=== PATIENT | male | born 1965 | race Caucasian/White ===

== ENCOUNTER → 2020-06-06 12:49 | Outpatient (BNVA) | payer MEDICARE, SELFPAY | PROVIDERS: Referring Provider Nurse Practitioner Family; Visit Provider Nurse Practitioner Family | DX: R19.7 Diarrhea, unspecified (principal); K21.9 Gastro-esophageal reflux disease without esophagitis; F17.210 Nicotine dependence, cigarettes, uncomplicated; Z12.11 Encounter for screening for malignant neoplasm of colon; Z79.899 Other long term (current) drug therapy; Z79.4 Long term (current) use of insulin | CPT/HCPCS: Q3014 ==

== ENCOUNTER → 2020-06-25 14:39 | Outpatient (BNVA) | payer OTHER, SELFPAY | PROVIDERS: PCP Nurse Practitioner Family; Visit Provider Nurse Practitioner Family | DX: Z13.89 Encounter for screening for other disorder (principal) | CPT/HCPCS: Q3014 ==

== ENCOUNTER → 2020-07-01 13:17 | Outpatient (BNVA) | payer OTHER, SELFPAY | PROVIDERS: PCP Nurse Practitioner Family; Visit Provider Internal Medicine Cardiovascular Disease | DX: Z01.810 Encounter for preprocedural cardiovascular examination (principal); I25.10 Atherosclerotic heart disease of native coronary artery without angina pectoris; I42.9 Cardiomyopathy, unspecified; I48.0 Paroxysmal atrial fibrillation; Z79.01 Long term (current) use of anticoagulants | CPT/HCPCS: 93005; 99212 ==

== ENCOUNTER 2020-07-23 07:52 | Day surgery (SDC) | payer OTHER, SELFPAY ==
[2020-07-17 10:51] VITALS: BMI 35.5
--- NOTE | 2020-07-22 10:20 | HO.ANESPROP2 ---
Documented by User: Heavenly Miranda 07/22/20 10:25 HPI - Anesthesia Eval Consult details Narrative: 55yo M for Colonoscopy Cardiac cleared at low to intermed risk [facility] Past Medical History Medical History CAD (coronary artery disease) Cardiomyopathy COPD (chronic obstructive pulmonary disease) Diabetes mellitus type 2, uncontrolled History of cardioversion KIMANI (obstructive sleep apnea) Paroxysmal atrial fibrillation Sleep apnea Smoker Family History Family History Father Atherosclerosis Mother Cerebral aneurysm Maternal Grandmother Unknown family medical history Surgical History Surgical History H/O heart artery stent History of esophagogastroduodenoscopy History of fracture of leg History of inguinal hernia History of umbilical hernia Hx of colonoscopy Social History Social History Alcohol intake: current Alcohol intake frequency: a few times a month Alcohol type: beer Smoking Status: Current every day smoker Tobacco Type: Cigarette Cigarettes Per Day: 10 Years Smoked: 40 years Use of substances other than those prescribed or required for medical reasons: No Have you been hit, kicked, punched, or otherwise hurt by someone within the past year? If so, by whom?: No Advance Directives: No Advance Directives Information Provided: No Recently lost weight without trying: No Meds Allergies Allergy/AdvReac Type Severity Reaction Status Date / Time No Known Allergies Allergy Verified 07/23/20 08:12 [No Known Allergies*] Home Medications Medication Instructions Recorded Confirmed Type apixaban 5 mg tablet 5 mg PO BID 06/06/20 07/17/20 History atorvastatin 40 mg tablet 40 mg PO DAILY 06/06/20 07/17/20 History Exam Exam Date and Time: July 22, 2020 1020 Height,Weight and Vital Signs: Height 5 ft 11 in Weight 115.666 kg Narrative Narrative: EKG 07/01/20 shows normal sinus rhythm with deep S waves in lead 3 and AVF and QS pattern in lead V1 V2 consistent with septal infarct per cardiology ov note ECHO 09/2019 EF 38% by biplane method, mod global hypokinesis, diastolic function nml for age Assessment and Plan Assessment Anesthesia Assessment: Chart Reviewed Documented by User: Jasmin Hopson 07/23/20 09:07 [facility] Past Medical History Medical History CAD (coronary artery disease) Cardiomyopathy COPD (chronic obstructive pulmonary disease) Diabetes mellitus type 2, uncontrolled History of cardioversion KIMANI (obstructive sleep apnea) Paroxysmal atrial fibrillation Sleep apnea Smoker Family History Family History Father Atherosclerosis Mother Cerebral aneurysm Maternal Grandmother Unknown family medical history Surgical History Surgical History H/O heart artery stent History of esophagogastroduodenoscopy History of fracture of leg History of inguinal hernia History of umbilical hernia Hx of colonoscopy Social History Social History Alcohol intake: current Alcohol intake frequency: a few times a month Alcohol type: beer Smoking Status: Current every day smoker Tobacco Type: Cigarette Cigarettes Per Day: 10 Years Smoked: 40 years Use of substances other than those prescribed or required for medical reasons: No Have you been hit, kicked, punched, or otherwise hurt by someone within the past year? If so, by whom?: No Advance Directives: No Advance Directives Information Provided: No Recently lost weight without trying: No Meds Allergies Allergy/AdvReac Type Severity Reaction Status Date / Time No Known Allergies Allergy Verified 07/23/20 08:12 [No Known Allergies*] Home Medications Medication Instructions Recorded Confirmed Type apixaban 5 mg tablet 5 mg PO BID 06/06/20 07/17/20 History atorvastatin 40 mg tablet 40 mg PO DAILY 06/06/20 07/17/20 History Exam Airway Mallampati Class: IV TM Dist: >3cm Neck ROM: Full Heart: RRR Lungs: CTA
[2020-07-22 16:11] VITALS: BMI 35.5
--- NOTE | 2020-07-23 08:58 | P.OP_ITS ---
Operative Note Operative Note Date of Service: 07/23/20 Narrative: Pre-op diagnosis: Colon cancer screening, hx of colon polyps Post-op diagnosis: other (Colon polyps, diverticulosis, hemorrhoids) Procedure: COLONOSCOPY TILL CECUM Consent: Indications for the procedure and potential complications of bleeding, perforation, reaction to medications and missed diagnosis were discussed with the patient and informed consent was obtained. Since pt was unsure if he took his Eliquis yesterday am, pt was informed and agreed that a diagnostic colonoscopy will be performed and if significant polyps are detected, He will need repeat colonoscopy for polypectomy. Instrument: Olympus PCF H 190 L variable stiffness pediatric colonoscope Monitoring: Vital signs and clinical assessment, intermittent blood pressure monitoring, continuous EKG monitoring, Pulse oximetry and Carbon Dioxide monitoring were done throughout the procedure. Colon withdrawl time was 20 minutes. Procedure: The patient was placed in the left lateral decubitis position and pre-procedure medications were administered. After a digital rectal examination of the ano-rectum, the video colonoscope was inserted into the rectum and advanced through the colon to the cecum. The colonoscope was slowly withdrawn in a retrograde panoramic fashion and the colon mucosa was carefully examined including a retroflexed view of the rectum. Findings and interventions are described below. Procedure Difficulty: Colon was long and tortuous and there was some loop formation. Pt was placed in the supine position and LLQ pressure applied to intubate the transverse colon/cecum Findings: Terminal Ileum: Not evaluated Cecum: Normal Ascending Colon: Normal Transverse Colon: Four 8-12 mm sessile polyps from 80-90 cms in the distal TC - not removed. Descending Colon: Moderate diverticulosis Sigmoid Colon: Two 8-10 mm sessile polyps and moderate diverticulosis Rectum: Normal Ano-rectum: Moderate internal hemorrhoids Colon preparation: Good after copious irrigation Impression and Post Procedure Diagnosis: Colonoscopy Findings: Six polyps were detected and not removed since patient is unsure if he took his Eliquis yesterday. Moderate diverticulosis seen in the left colon Moderate hemorrhoids on retroflexed exam. Plan: Await pathology results Patient has an appointment on 07/30/20 in the GI Clinic with Hoda Adair FNP- BC. Repeat Colonoscopy in 6 to 12 months with adult colonoscope. Above findings were reviewed with the patient and colon polyps and diverticulosis handouts were given in the discharge area Surgeon: Gerardo Anaya MD Anesthesia: MAC (Dr Briscoe & Dr Priest) Estimated blood loss (mL): 0 Pathology: none sent Condition: stable Disposition: PACU
--- NOTE | 2020-07-23 08:58 | MHC.SHP ---
Pre-Procedural Eval Section B Chief Complaint: screening Details of Present Illness: Colon cancer screening, chronic diarrhea Relevant Family History (Specify if Yes): No Relevant Social History: Tobacco Use Present Medications: see Short Stay Collaborative assessment Medical History: Significant History (DM, CAD) History of Previous Operations: Relevant previous surgery/procedure and date(s) (H/O heart artery stent History of esophagogastroduodenoscopy History of fracture of leg History of inguinal hernia History of umbilical hernia Hx of colonoscopy) Allergies: Allergies Allergy/AdvReac Type Severity Reaction Status Date / Time No Known Allergies Allergy Verified 07/23/20 08:12 [No Known Allergies*] Review of Systems Sugical H&P ROS: Negative: Constitution, Cardiovascular, Respiratory and Gastrointestinal Exam Surgical H&P Exam: Normal: Heart, Normal: Lungs, Normal: Extremities and Normal: Abdomen Plan Diagnosis/Plan: Change (Unsure if he took Eliquis yesterday. Advised a diagnostic colonoscopy today and return for repeat if polyps are detected..) I have reviewed the history and physical and performed a pertinent physical examination on my patient. No changes have occurred unless specified.
[2020-07-23 08:59] VITALS: BP 152/81; PULSE 66; RESP 18; TEMP 36.8; O2SAT 96
[2020-07-23 09:02] LABS: Glucose, Whole Blood 197 mg/dL (60-115)
[2020-07-23] MEDS: Lactated Ringers 1,000 ML 20 ML IVCONT (09:12)
[2020-07-23 10:10] VITALS: BP 137/76; PULSE 70; RESP 16; TEMP 36.8; O2SAT 98
[2020-07-23 10:25] VITALS: BP 131/62; PULSE 68; RESP 20; TEMP 36.8; O2SAT 96
--- NOTE | 2020-07-23 10:35 | HO.POSTANES ---
Post Anesthesia Evaluation Post Anesthesia Evaluation Vital Signs: Vital Signs Temp Pulse Resp BP Pulse Ox 07/23/20 10:25 98.3 F 68 20 131/62 96 07/23/20 10:10 98.3 F 70 16 137/76 98 07/23/20 08:59 98.3 F 66 18 152/81 H 96 Anesthesia: TIVA Mental Status: Awake Pain Control: Satisfactory Nausea/Vomiting: None Hydration: Adequate Anesthesia-Related Issues: No Anes. Related Issues
--- NOTE | 2020-07-23 11:39 | HO.POSTANES ---
Post Anesthesia Evaluation Post Anesthesia Evaluation Vital Signs: Vital Signs Temp Pulse Resp BP Pulse Ox 07/23/20 10:25 98.3 F 68 20 131/62 96 07/23/20 10:10 98.3 F 70 16 137/76 98 07/23/20 08:59 98.3 F 66 18 152/81 H 96 Anesthesia: Monitored Mental Status: Awake Pain Control: Satisfactory Nausea/Vomiting: None Hydration: Adequate Anesthesia-Related Issues: No Anes. Related Issues
== END 2020-07-23 10:45 | disposition home or self-care (01) ==
PROVIDERS: PCP Nurse Practitioner Family; Visit Provider Internal Medicine Gastroenterology
PROC: 0DJD8ZZ Inspection of Lower Intestinal Tract, Via Natural or Artificial Opening Endoscopic (ICD-10-PCS; CPT 45378; principal; 2020-07-23 09:10)
DX: Z12.11 Encounter for screening for malignant neoplasm of colon (principal); Z86.010 Personal history of colon polyps; K63.5 Polyp of colon; K56.2 Volvulus; K57.30 Diverticulosis of large intestine without perforation or abscess without bleeding; K64.8 Other hemorrhoids; I48.0 Paroxysmal atrial fibrillation; Z79.01 Long term (current) use of anticoagulants; J44.9 Chronic obstructive pulmonary disease, unspecified; E11.9 Type 2 diabetes mellitus without complications; Z79.4 Long term (current) use of insulin; G47.33 Obstructive sleep apnea (adult) (pediatric); Z99.89 Dependence on other enabling machines and devices; Z79.899 Other long term (current) drug therapy; F17.210 Nicotine dependence, cigarettes, uncomplicated
CPT/HCPCS: G0105; 82947

== ENCOUNTER → 2020-08-15 14:29 | Outpatient (BNVA) | payer OTHER, SELFPAY | PROVIDERS: PCP Nurse Practitioner Family; Visit Provider Nurse Practitioner Family | DX: Z76.89 Persons encountering health services in other specified circumstances (principal) | CPT/HCPCS: Q3014 ==

== ENCOUNTER 2020-11-05 06:24 | Day surgery (SDC) | payer OTHER, SELFPAY ==
[2020-10-30 15:32] VITALS: BMI 35.5
--- NOTE | 2020-11-04 09:15 | P.CONAN_ITS ---
Documented by User: Heavenly Miranda 11/04/20 09:20 HPI - Anesthesia Eval Consult details Narrative: 55yo M for Colonoscopy Cardiac cleared at low to intermed risk for 06/2020 colonoscopy s/p colonoscopy with TIVA 06/2020 Repeat colo for polyp removal. (Pt was unsure if Eliquis was held for last procedure.) PMF Active Problems Active Problems: All Active Problems (Updated 08/21/20 @ 09:48 by Phi Crisostomo, [facility]) Screening PSA (prostate specific antigen) (Acute) Type 2 diabetes mellitus without complications (Acute) Preoperative cardiovascular examination (Acute) CAD (coronary artery disease) (Acute) Paroxysmal atrial fibrillation (Acute) Cardiomyopathy (Acute) Past Medical History Medical History CAD (coronary artery disease) Cardiomyopathy COPD (chronic obstructive pulmonary disease) Diabetes mellitus type 2, uncontrolled History of cardioversion KIMANI (obstructive sleep apnea) Paroxysmal atrial fibrillation Sleep apnea Smoker Family History Family History Father Atherosclerosis Mother Cerebral aneurysm Maternal Grandmother Unknown family medical history Surgical History Surgical History H/O heart artery stent History of esophagogastroduodenoscopy History of fracture of leg History of inguinal hernia History of umbilical hernia Hx of colonoscopy Social History Social History Household Members: Friend(s) Alcohol intake: current Alcohol intake frequency: a few times a week Alcohol type: beer Smoking Status: Current every day smoker Tobacco Type: Cigarette Cigarettes Per Day: 20 Years Smoked: 40 Use of substances other than those prescribed or required for medical reasons: No Are you DNR?: No Advance Directives: No Advance Directives Information Provided: No Advance Directives on File: No Recently lost weight without trying: No Current occupational status: disabled Meds Allergies Allergy/AdvReac Type Severity Reaction Status Date / Time No Known Allergies Allergy Verified 10/30/20 15:31 [No Known Allergies*] Home Medications Medication Instructions Recorded Confirmed Last Taken Type amiodarone 200 mg tablet 200 mg PO DAILY 08/21/20 10/30/20 Unknown History empagliflozin 25 mg tablet 25 mg PO DAILY 08/21/20 10/30/20 Unknown History albuterol sulfate 2 puff PO Q6H PRN 10/30/20 10/30/20 Unknown History insulin glargine [Lantus Solostar 40 unit SUBCUT BEDTIME 10/30/20 10/30/20 Unknown History U-100 Insulin] metformin 500 mg PO BID 10/30/20 10/30/20 Unknown History metoprolol tartrate 1 tab PO BID 10/30/20 10/30/20 Unknown History umeclidinium [Incruse Ellipta] 1 puff PO DAILY 10/30/20 10/30/20 Unknown History Exam Exam Date and Time: November 04, 2020 0915 Height,Weight and Vital Signs: Height 5 ft 11 in Weight 115.666 kg Narrative Narrative: EKG 07/01/20 shows normal sinus rhythm with deep S waves in lead 3 and AVF and QS pattern in lead V1 V2 consistent with septal infarct per cardiology ov note ECHO 09/2019 EF 38% by biplane method, mod global hypokinesis, diastolic function nml for age Assessment and Plan Assessment Anesthesia Assessment: Chart Reviewed Documented by User: Jasmin Hopson 11/05/20 07:26 [facility] Past Medical History Medical History CAD (coronary artery disease) Cardiomyopathy COPD (chronic obstructive pulmonary disease) Diabetes mellitus type 2, uncontrolled History of cardioversion KIMANI (obstructive sleep apnea) Paroxysmal atrial fibrillation Sleep apnea Smoker Family History Family History Father Atherosclerosis Mother Cerebral aneurysm Maternal Grandmother Unknown family medical history Surgical History Surgical History H/O heart artery stent History of esophagogastroduodenoscopy History of fracture of leg History of inguinal hernia History of umbilical hernia Hx of colonoscopy Social History Social History Household Members: Friend(s) Alcohol intake: current Alcohol intake frequency: a few times a week Alcohol type: beer Smoking Status: Current every day smoker Tobacco Type: Cigarette Cigarettes Per Day: 20 Years Smoked: 40 Use of substances other than those prescribed or required for medical reasons: No Are you DNR?: No Advance Directives: No Advance Directives Information Provided: No Advance Directives on File: No Recently lost weight without trying: No Current occupational status: disabled Meds Allergies Allergy/AdvReac Type Severity Reaction Status Date / Time No Known Allergies Allergy Verified 10/30/20 15:31 [No Known Allergies*] Home Medications Medication Instructions Recorded Confirmed Last Taken Type amiodarone 200 mg tablet 200 mg PO DAILY 08/21/20 10/30/20 Unknown History empagliflozin 25 mg tablet 25 mg PO DAILY 08/21/20 10/30/20 Unknown History albuterol sulfate 2 puff PO Q6H PRN 10/30/20 10/30/20 Unknown History insulin glargine [Lantus Solostar 40 unit SUBCUT BEDTIME 10/30/20 10/30/20 Unknown History U-100 Insulin] metformin 500 mg PO BID 10/30/20 10/30/20 Unknown History metoprolol tartrate 1 tab PO BID 10/30/20 10/30/20 Unknown History umeclidinium [Incruse Ellipta] 1 puff PO DAILY 10/30/20 10/30/20 Unknown History Exam Airway Mallampati Class: III TM Dist: >3cm Neck ROM: Full Heart: RrRR Lungs: CTA
[2020-11-05 06:43] VITALS: BP 151/78; PULSE 67; RESP 20; TEMP 36.7; O2SAT 97; BMI 34.8
[2020-11-05] MEDS: Lactated Ringers 1,000 ML 100 ML IVCONT (07:06)
--- NOTE | 2020-11-05 07:16 | P.HPSUR_ITS ---
Pre-Procedural Eval Section A The patient is an INPATIENT: No The History & Physical has been completed within 30 days and I have reviewed it.: No Section B Chief Complaint: Screening Relevant Family History (Specify if Yes): No Relevant Social History: Tobacco Use Present Medications: see Short Stay Collaborative assessment Medical History: Significant History (CAD (coronary artery disease) Cardiomyopathy COPD (chronic obstructive pulmonary disease) Diabetes mellitus type 2, uncontrolled History of cardioversion KIMANI (obstructive sleep apnea) Paroxysmal atrial fibrillation Sleep apnea Smoker) History of Previous Operations: Relevant previous surgery/procedure and date(s) (H/O heart artery stent History of esophagogastroduodenoscopy History of frac ture of leg History of inguinal hernia History of umbilical hernia Hx of colonoscopy) Allergies: Allergies Allergy/AdvReac Type Severity Reaction Status Date / Time No Known Allergies Allergy Verified 10/30/20 15:31 [No Known Allergies*] Review of Systems Sugical H&P ROS: Negative: Constitution, Cardiovascular, Respiratory and Gastrointestinal Exam Surgical H&P Exam: Normal: Heart, Normal: Lungs, Normal: Extremities and Normal: Abdomen Plan Diagnosis/Plan: Unchanged I have reviewed the history and physical and performed a pertinent physical examination on my patient. No changes have occurred unless specified.
--- NOTE | 2020-11-05 07:16 | W.PM.OPN ---
Operative Note Operative Note Date of Service: 11/05/20 Narrative: Pre-op diagnosis: History of colon polyps Post-op diagnosis: other (Colon polyps, diverticulosis, hemorrhoids) Procedure: COLONOSCOPY TILL CECUM WITH BIOPSIES AND SNARE POLYPECTOMY Consent: Indications for the procedure and potential complications of bleeding, perforation, reaction to medications and missed diagnosis were discussed with the patient and informed consent was obtained. Instrument: Olympus CF H 190 L variable stiffness adult colonoscope Monitoring: Vital signs and clinical assessment, intermittent blood pressure monitoring, continuous EKG monitoring, Pulse oximetry and Carbon Dioxide monitoring were done throughout the procedure. Colon withdrawl time was 38 minutes. Procedure: The patient was placed in the left lateral decubitis position and pre-procedure medications were administered. After a digital rectal examination of the ano-rectum, the video colonoscope was inserted into the rectum and advanced through the colon to the cecum. The colonoscope was slowly withdrawn in a retrograde panoramic fashion and the colon mucosa was carefully examined including a retroflexed view of the rectum. Findings and interventions are described below. Procedure Difficulty: Without difficulty Findings: Terminal Ileum: Not evaluated Cecum: Partially evaluated due to fair prep Ascending Colon: Partially evaluated due to fair prep Transverse Colon: Four 8 to 12 mm sessile polyps removed with hot and cold snare Descending Colon: Moderate diverticulosis Sigmoid Colon: Two 8-10 mm sessile polyp removed with a hot and cold snare. A 15-20 mm a sessile polyp at 20 cm removed with a hot snare. Moderate diverticulosis Rectum: Normal Ano-rectum: Large internal hemorrhoids Colon preparation: Fair despite copious irrigation - would in some areas of the colon Impression and Post Procedure Diagnosis: Colonoscopy Findings: Seven polyps removed Random biopsies obtained to to check for microscopic colitis Moderate diverticulosis seen in the left colon Large hemorrhoids on retroflexed exam. Plan: Await pathology results Patient has an appointment on 12/12/20 in the GI Clinic with Hoda Adair FNP-BC. Repeat Colonoscopy interval based on path results - in 2 years if polyps are adenomatous and due to fair prep (1.5 day prep and adult colonoscope for future colonoscopies. Above findings were reviewed with the patient and colon polyps and diverticulosis handouts were given in the discharge area Surgeon: Gerardo Anaya MD Anesthesia: MAC (Dr Briscoe) Was an Computer Technical Specialist used for this Procedure?: Yes Computer Technical Specialist: Doron Curtis Estimated blood loss (mL): 0 Pathology: other (A- TRANSVERSE COLON POLYPS B- RANDOM COLON BXS C- TRANSVERSE COLON POLYPS AT 80CM D- SIGMOID COLON POLYP E- SIGMOID COLON POLYP AT 20CM) Condition: stable Disposition: PACU
[2020-11-05 07:22] LABS: Glucose, Whole Blood 197 mg/dL (60-115)
[2020-11-05 08:39] VITALS: BP 155/79; PULSE 98; RESP 16; TEMP 37.1; O2SAT 92
[2020-11-05 08:54] VITALS: BP 135/76; PULSE 87; RESP 16; O2SAT 99
--- NOTE | 2020-11-05 11:07 | HO.POSTANES ---
Post Anesthesia Evaluation Post Anesthesia Evaluation Vital Signs: Vital Signs Temp Pulse Resp BP Pulse Ox 11/05/20 08:54 87 16 135/76 99 11/05/20 08:39 98.7 F 98 16 155/79 H 92 11/05/20 06:43 98.1 F 67 20 151/78 H 97 Anesthesia: Monitored Mental Status: Awake Pain Control: Satisfactory Nausea/Vomiting: None Hydration: Adequate Anesthesia-Related Issues: No Anes. Related Issues
== END 2020-11-05 10:05 | disposition home or self-care (01) ==
PROVIDERS: PCP Nurse Practitioner Family; Visit Provider Internal Medicine Gastroenterology
PROC: 0DJD8ZZ Inspection of Lower Intestinal Tract, Via Natural or Artificial Opening Endoscopic (ICD-10-PCS; CPT 45378; principal; 2020-11-05 07:30)
DX: Z12.11 Encounter for screening for malignant neoplasm of colon (principal); Z86.010 Personal history of colon polyps; D12.3 Benign neoplasm of transverse colon; D12.5 Benign neoplasm of sigmoid colon; K57.30 Diverticulosis of large intestine without perforation or abscess without bleeding; K64.8 Other hemorrhoids; J44.9 Chronic obstructive pulmonary disease, unspecified; G47.33 Obstructive sleep apnea (adult) (pediatric); I48.0 Paroxysmal atrial fibrillation; Z79.01 Long term (current) use of anticoagulants; E11.9 Type 2 diabetes mellitus without complications; Z79.4 Long term (current) use of insulin; F17.210 Nicotine dependence, cigarettes, uncomplicated; Z79.51 Long term (current) use of inhaled steroids; Z79.899 Other long term (current) drug therapy; Z99.89 Dependence on other enabling machines and devices
CPT/HCPCS: 45385; 45380; 82947; 88305

== ENCOUNTER → 2020-12-20 10:15 | Outpatient (BNVA) | payer OTHER, SELFPAY | PROVIDERS: PCP Nurse Practitioner Family; Referring Provider Nurse Practitioner Family; Visit Provider Nurse Practitioner Family | DX: K21.9 Gastro-esophageal reflux disease without esophagitis (principal); R19.7 Diarrhea, unspecified; R14.0 Abdominal distension (gaseous); D36.9 Benign neoplasm, unspecified site; Z98.890 Other specified postprocedural states | CPT/HCPCS: 99212 ==

== ENCOUNTER 2021-01-21 14:00 | Outpatient (REF) | payer OTHER, SELFPAY | END 2021-01-21 14:01 | disposition home or self-care (01) | LOC: HO.LNP 14:00 | PROVIDERS: Visit Provider Nurse Practitioner Family | DX: K21.9 Gastro-esophageal reflux disease without esophagitis (principal) | CPT/HCPCS: 87338 ==

== ENCOUNTER 2021-01-22 08:58 | Outpatient (REF) | payer OTHER, SELFPAY ==
[2021-01-27 13:11] LABS: Transglutaminase Ab IgG 2 U/mL; Transglutaminase IgA 2 U/mL
== END 2021-01-22 08:59 | disposition home or self-care (01) ==
LOC: HO.LAB 08:58
PROVIDERS: PCP Nurse Practitioner Family; Referring Provider Nurse Practitioner Family; Visit Provider Nurse Practitioner Family
DX: R10.11 Right upper quadrant pain (principal); Z83.79 Family history of other diseases of the digestive system
CPT/HCPCS: 36415; 83516

== ENCOUNTER → 2021-01-24 09:09 | Outpatient (REF) | payer OTHER, SELFPAY ==
--- NOTE | 2021-01-24 09:12 | CA_ITS ---
Transthoracic Echocardiogram Patient (Last, First, Middle): Jr Cruz, Gender: Male Date of : 1965 Age: 55 Procedure Date: 01/24/2021 Procedure Type: Transthoracic Echocardiogram Location: OP Height: 180.34 cm Weight: 113.4 kg BSA: 2.32 m2 Heart Rate: bpm BP: 134 / 72 mmHg Brothel Keeper: Referring MD: Bakari Andrew MD Symptoms: I42.9 - Cardiomyopathy, unspecified Study Quality: Fair ECG Rhythm: Sinus Conclusions: - The left ventricular systolic function is moderately decreased. The visually estimated ejection fraction is between 35-40%. - There is mildly decreased right ventricular systolic function. - No obvious valvular pathology seen on this study. Findings Procedure Information The patient receives contrast. Left Ventricle Normal left ventricular cavity size. There is mildly increased left ventricular wall thickness. The left ventricular systolic function is moderately decreased. The visually estimated ejection fraction is between 35 40%. There is moderate global hypokinesis. E/E prime ratio is between 8 and 15 consistent with indeterminate filling pressures. Evidence suggests grade I (mild) diastolic dysfunction. Right Ventricle Normal right ventricular cavity size. There is mildly decreased right ventricular systolic function. Atria Both atria are normal in size. Aortic Valve The aortic valve was not well visualized. There is no aortic valve stenosis. There is no aortic valve regurgitation. Mitral Valve The mitral valve appears normal. There is trace mitral valve regurgitation. There is no mitral valve stenosis. Pulmonic Valve The pulmonic valve was not well visualized. Tricuspid Valve Normal tricuspid valve structure. There is trace tricuspid valve regurgitation. Tricuspid regurgitation envelope is inadequate for calculation of right ventricular systolic pressure. Great Vessels The aortic annulus, sinuses of valsalva, and asc aorta are normal in size. Venous The inferior vena cava is normal in size and collapses greater than 50% with inspiration. Pericardium/Pleural There is no evidence of pericardial effusion. Prior Study Comparison No significant change compared to prior study dated: 10/03/2019. Recommendations, Care & Conclusions No obvious valvular pathology seen on this study. Measurements 2D Linear Measurements RVIDd: 2.94 RVIDd Index: 1.27 IVSd: 1.15 0.6-0.9/0.6-1.0 cm LVIDd: 0.79 3.9-5.3/4.2-5.9 cm LVIDd Index: 0.34 2.4-3.2/2.2-3.1 cm/m2 Ao Root: 3.70 2.1-3.5 cm LA Diam: 4.30 2.7-3.8/3.0-4.0 cm LAIDs Index: 1.85 1.5-2.3 cm/m2 LVOT Diam: 2.30 3.0+(-)1.3 cm 2D Systolic Function EF 4C: 40.40 >55% EF 2C: 27.00 >55% EF BiP: 34.20 >55% Mitral Valve MV Pk E: 0.69 MV PK A: 0.69 MV Decel Time: 187.00 E/A: 1.00 E'Lateral: 7.29 E'Medial: 4.79 E/E' Med: 14.50 E/E' Lat: 9.50 LVOT LVOT Diam: 2.30 LVOT Area: 4.15 Diastolic Function MV Pk E: 0.69 MV Pk A: 0.69 E/A: 1.00 E'Medial: 4.79 E/E' Med: 14.50 E' Laterial: 7.29 E/E' Lat: 9.50 Right Ventricle TAPSE (mm): 1.69 Great Vessels Aorta Ao Root-2D: 3.70 2.0-3.7 cm Ao Asc: 3.10 2.1-3.4 cm Ao Arch: 2.50 Updated in Other Vendor System with Status of Final Suleiman Pham MD electronically signed on 01/25/2021 2:06:36 PM with status of Final
== END ==
LOC: HO.CARD 09:09
PROVIDERS: PCP Nurse Practitioner Family; Visit Provider Internal Medicine Cardiovascular Disease
DX: I42.9 Cardiomyopathy, unspecified (principal); I48.0 Paroxysmal atrial fibrillation; I25.10 Atherosclerotic heart disease of native coronary artery without angina pectoris
CPT/HCPCS: 93306; Q9957

== ENCOUNTER → 2021-03-25 14:37 | Outpatient (BNVA) | payer OTHER, SELFPAY | PROVIDERS: PCP Nurse Practitioner Family; Referring Provider Nurse Practitioner Family; Visit Provider Internal Medicine Cardiovascular Disease | DX: I48.0 Paroxysmal atrial fibrillation (principal); I50.20 Unspecified systolic (congestive) heart failure; I25.10 Atherosclerotic heart disease of native coronary artery without angina pectoris | CPT/HCPCS: 93005; 99212 ==

== ENCOUNTER 2021-06-18 10:42 | Outpatient (REF) | payer OTHER, SELFPAY ==
[2021-06-18 12:05] LABS: Alanine Aminotransferase 21 U/L (0-40); Albumin Level 3.8 g/dL (3.5-5.0); Alkaline Phosphatase 99 U/L (39-117); Anion Gap 14 (12-20); Aspartate Amino Transferase 15 U/L (5-37); Bilirubin Total 0.6 mg/dL (0.0-1.0); Blood Urea Nitrogen 14 mg/dL (9-16); Calcium 9.4 mg/dL (8.4-10.2); Carbon Dioxide 28 mmol/L (22-29); Chloride 104 mmol/L (96-108); Cholesterol 93 mg/dL; Estimated Glomerular Filt Rate > 60; Glucose Fasting 156 mg/dL (60-99); HDL Cholesterol 38 mg/dL; LDL Cholesterol Calculated 44 mg/dl; Potassium 4.7 mmol/L (3.3-5.1); Sodium 141 mmol/L (135-145); Total Protein 6.6 g/dL (6.5-8.0); Triglycerides 55 mg/dL
[2021-06-18 12:20] LABS: Estimated Average Glucose 223 mg/dL; Hemoglobin A1c % 9.4 %
[2021-06-18 12:25] LABS: Prostate Specific Antigen Scr 0.52 ng/mL (<0.05-4.0); TSH reflex Free T4 < 0.01 uIU/mL (0.32-4.0)
[2021-06-18 13:03] LABS: Free T4 (Free Thyroxine) 1.64 ng/dL (0.71-1.85)
[2021-06-18 14:16] LABS: Appearance Urine HAZY; Color Urine YELLOW; Glucose Urine UA >=1000 MG/DL (NEG); Leukocyte Esterase Urine NEG (NEG); Nitrite Urine NEG (NEG); Urine Blood NEG (NEG); Urine Ketones NEG (NEG); Urine Protein NEG (NEG-TRACE)
[2021-06-18 14:31] LABS: Creatinine Urine 54.51 mg/dL; Microalbum/Creatinine Ratio Ur 71.5 ug/mg cr
[2021-06-18 14:59] LABS: WBC Urine 0-2 /HPF (0-4)
[2021-06-18 15:00] LABS: Squamous Epithelial Cell Urine 1+ /LPF
== END 2021-06-18 10:43 | disposition home or self-care (01) ==
LOC: HO.HMGCLDS 10:42
PROVIDERS: PCP Nurse Practitioner Family; Visit Provider Nurse Practitioner Family
DX: Z12.5 Encounter for screening for malignant neoplasm of prostate (principal); E11.9 Type 2 diabetes mellitus without complications
CPT/HCPCS: 36415; 80053; 80061; 81001; 81003; 82043; 83036; 84153; 84439; 84443

== ENCOUNTER 2021-06-23 12:03 | Inpatient (IN) | payer OTHER, SELFPAY ==
--- NOTE | ~2021-06-23 | XR_ITS ---
EXAMINATION: XR CHEST CLINICAL INFORMATION: Dyspnea. COMPARISON: None TECHNIQUE: Frontal view of the chest was obtained. FINDINGS: There is mild blunting of the right costophrenic angle. Mild linear markings are seen in the right mid lung field. The left lung is clear. The heart and mediastinal structures are unremarkable. XR/XR chest 1V IMPRESSION: Small right pleural effusion versus pleural scarring. Mild superjacent linear markings at appearance of atelectasis or scarring. A definitive infiltrate is not seen. If symptoms persist or worsen, a short-term repeat study including a lateral view would be helpful.
--- NOTE | ~2021-06-23 | US_ITS ---
EXAMINATION: US VENOUS ULTRASOUND WITH DOPPLER LOWER EXTREMITY, LEFT CLINICAL INFORMATION: Left lower extremity edema, swelling and pain COMPARISON: None TECHNIQUE: Ultrasound of the deep veins is performed from the hip to the calf with compression sonography and color and pulse Doppler assessment. Spectral analysis with color-flow imaging is performed. FINDINGS: There is normal venous compression and respiratory variation and augmented flow. The visualized common femoral vein, superficial femoral vein, profunda femoral vein, popliteal vein, and the trifurcation region shows no evidence of deep venous thrombosis. The right common femoral vein appears normal. There is no significant popliteal fossa cyst. If the patient's symptoms persist, followup ultrasound in 5 days 7 days might be of value to exclude proximal propagation from a non-visualized calf vein. US/US venous duplex LE IMPRESSION: No DVT demonstrated in the left lower extremity.
[2021-06-23 12:09] VITALS: BP 128/81; PULSE 60; O2SAT 99
[2021-06-23 13:59] VITALS: BP 116/70; PULSE 120; RESP 18; TEMP 36.7; O2SAT 96; BMI 34.8
--- NOTE | 2021-06-23 14:06 | ECG_ITS ---
Test Reason : ?afib Blood Pressure : / mmHG Vent. Rate : 120 BPM Atrial Rate : 000 BPM P-R Int : 000 ms QRS Dur : 110 ms QT Int : 342 ms P-R-T Axes : 000 091 181 degrees QTc Int : 483 ms Atrial fibrillation with rapid ventricular response Septal infarct , age undetermined Lateral infarct , age undetermined Abnormal ECG No previous ECGs available Referred By: Generic ED Physician Electronically Signed By:Jaspreet Montoya
[2021-06-23 14:31] LABS: Basophils Absolute Auto 0.1 X10*3/uL (0.0-0.2); Basophils Percent Auto 0.5 % (0-2); Eosinophils Absolute Auto 0.1 X10*3/uL (0.0-0.4); Eosinophils Percent Auto 1.1 % (0-4); Imm Gran Abs Auto 0.03 X10*3/uL (0.00-0.03); Imm Gran Pct Auto 0.3 % (0.0-0.4); Lymphocytes Absolute Auto 2.5 X10*3/uL (1.2-4.9); Lymphocytes Percent Auto 24.3 % (20-40); MANUAL DIFF FLAG NO; Mean Corpuscular Hemoglobin 28.5 pg (27.0-33.0); Mean Corpuscular Volume 90.7 fL (80.0-98.0); Monocytes Absolute Auto 0.8 X10*3/uL (0.1-1.2); Monocytes Percent Auto 7.5 % (2-11); Neutrophils Absolute Auto 6.8 x10*3/uL (2.0-8.3); Neutrophils Percent Auto 66.3 % (45-73); Platelet Count 291 X10*3/uL (160-400); Red Cell Distribution Width 13.5 % (11.0-16.0); White Blood Count 10.2 X10*3/uL (4.8-10.8)
[2021-06-23 14:41] VITALS: BP 108/68; PULSE 121; RESP 20; TEMP 37.1; O2SAT 96
[2021-06-23 14:44] LABS: Anion Gap 11 (12-20); Blood Urea Nitrogen 13 mg/dL (9-16); Calcium 9.5 mg/dL (8.4-10.2); Carbon Dioxide 32 mmol/L (22-29); Creatinine Clr Calc Pharmacy 71.4; Estimated Glomerular Filt Rate 47; Glucose Random 216 mg/dL (60-115); Potassium 5.3 mmol/L (3.3-5.1)
[2021-06-23 14:47] LABS: Chloride 102 mmol/L (96-108); Sodium 140 mmol/L (135-145)
--- NOTE | 2021-06-23 21:16 | ED_ITS ---
HPI - Arrhythmia/Palpitations General Chief Complaint: Arrhythmia/Palpitations Stated Complaint: SOB Time Seen by Provider: 06/23/21 12:05 Source: patient Mode of arrival: ambulatory Limitations: no limitations History of Present Illness HPI narrative: 56-year-old male who presents emergency department for evaluation of shortness of breath x2 weeks getting worse over the past week. The patient states that for the past 2 weeks he has noticed shortness of breath at rest, dyspnea on exertion and shortness of breath with lying down. He states that the symptoms have gotten progressively worse to the point where he can only walk 10- 20 feet and then he gets extremely winded. He states he has also noticed over the past week that both lower extremities are swollen with the left being larger than the right. States that his left calf feels very hard compared to his right calf. The patient does have a history of atrial fibrillation and states that he had an ablation 2 years prior. He states that he did feel like he had a recurrence of his atrial fibrillation but followed up with his family dinner service specialist, Dr. Andrew and was found to be in a normal rhythm. He states that he gets intermittent brief, episodes of sharp chest pain located in the center of his chest which lasts seconds, He states that his shortness of breath was significantly worse today therefore came to the emergency department for evaluation. He denied fever, chills, cough, nausea, vomiting, abdominal pain, diarrhea. Related Data Allergies Allergy/AdvReac Type Severity Reaction Status Date / Time No Known Allergies Allergy Verified 06/23/21 13:58 Review of Systems Review of Systems: Yes all other systems are reviewed and are negative [facility] Past Medical History [facility] Narrative: Social history: He smokes less than 1 pack of cigarettes per day times 45 years, he drinks 6 beers per week. He denies drug use Medical History Afib CHF (congestive heart failure) COPD (chronic obstructive pulmonary disease) COVID-19 Diabetes Sleep apnea Surgical History History of cardiac radiofrequency ablation Social History Social History Advance Directives: No Advance Directives Information Provided: No Physical Exam Vital Signs: Vital Signs: Last Vital Signs Temp 98.7 F 06/23/21 14:41 Pulse 121 H 06/23/21 14:41 Resp 20 06/23/21 14:41 BP 108/68 06/23/21 14:41 Pulse Ox 96 06/23/21 14:41 BMI result Body Mass Index 34.8 Const: General: cooperative and no acute distress Orientation/consciousness: oriented to person and oriented to place Limitations: no limitations HENMT: Head: Yes normal to inspection, Yes normocephalic and Yes atraumatic Ears: external ears normal General nose exam: Normal external nose present Face and sinus: Yes normal facial exam Mouth: Normal oral and palatal mucosa present Throat: Yes posterior oropharynx normal Eyes: General: appearance normal, both eyes and all related structures Pupils: Equal, round and reactive pupils present Neck: Neck: Yes normal visual inspection, Yes no lymphadenopathy, Yes trachea midline and Yes supple Chest: Chest palpation & inspection: normal inspection of the chest and normal palpation of entire chest wall Resp: Effort & Inspection: normal respiratory effort and able to speak in complete sentences Auscultation: wheezes (At bases at the end of expiration) Cardio: Rate: regular rate Rhythm: abnormal rhythm irregularly irregular Heart sounds: S1 normal heart sound present, S2 normal heart sound present and no murmurs Bruits: Abdominal aortic bruit present GI: Inspection: Yes normal to inspection Palpation (GI): Abdominal aortic bruit present, Soft to palpation, nontender and no guarding Auscultation: normal bowel sounds : General: Yes no CVA tenderness Back/Spine/Pelvis: Back: no CVA tenderness Skin: General skin exam: no rashes or lesions noted Neuro: General: oriented to person and oriented to place Cranial nerves: Yes CN's II-XII intact bilaterally and Yes Equal, round and reactive pupils present Cognition (Neuro): normal cognition Motor exam (neuro): 5/5 motor strength present throughout Extrem: Other: One to 2+ pitting edema, left greater than right, left calf is firm to palpation General: Yes normal to inspection Psych: Appearance: grossly normal Speech and movement: Normal speech and movement present Affect: normal affect Attitude: cooperative Thought process: Normal thought process present Thought content: Normal thought content present Course Course Course Narrative: 56-year-old male who presents emergency department for evaluation of shortness of breath x2 weeks which is got progressively worse to the point where he can only walk 10-20 feet before he gets severely dyspneic, bilateral peripheral edema with left being greater than right. The patient's vital signs revealed tachycardia with a pulse of 120, O2 saturation was 96% on room air. Heart exam revealed an irregularly irregular rhythm with a normal rate. Lung exam revealed wheezing at the bases. Extremity exam revealed 2+ pitting edema left greater than right with a firm left calf. The differential includes but is not limited to pulmonary embolism, left DVT, CHF, pneumonia, atrial fibrillation. 2233: Laboratory evaluation: CBC was normal. Potassium was elevated 5.3. Glucose was elevated 216. High sensitivity D-dimer was normal at 158. Initial high sensitive troponin was elevated at 48.5, repeat troponin was 52.4 with adult of less than 50%. Chest x-ray revealed a small right pleural effusion with no significant infiltrates this suggests suggestive heart failure or pneumonia. Duplex ultrasound left lower extremity did not reveal a DVT. At this time, I believe the patient's dyspnea secondary to being fluid overloaded and secondary to being in atrial fibrillation. I will discuss this with the covering hospitalist. Patient does take Eliquis and furosemide 40 mg twice a day. The patient was ordered to get Lasix 80 mg IV. I will discuss further treatment and possible admission with the covering family dinner service specialist. 2322: I did discuss the patient's presentation with our family dinner service specialist, Dr.M cunningham. He recommended admission for possible cardioversion in the morning. He agreed with the initial dose of Lasix but states that he would hold off on giving more Lasix at this time since he is not in congestive heart failure. He also recommended a to hold off on rate control since he does not know the patient's EF and he does not want to drop his blood pressure since the patient may benefit from an increased heart rate. I will discuss admission with the covering hospitalist. MDM - Arrhythmia/Palpitations Lab Data Result diagrams: 06/23/21 14:24 06/23/21 14:24 Labs: Lab Results 06/23/21 06/23/21 06/23/21 Range/Units 14:24 14:24 14:24 WBC 10.2 (4.8-10.8) X10*3/uL RBC 5.37 (4.20-5.50) X10*6/uL Hgb 15.3 (12.0-16.0) g/dl Hct 48.7 H (37.0-47.0) % MCV 90.7 (80.0-98.0) fL MCH 28.5 (27.0-33.0) pg MCHC 31.4 (31.0-35.0) g/dl RDW 13.5 (11.0-16.0) % Plt Count 291 (160-400) X10*3/uL MPV 9.8 (9.4-12.3) fL Immature Gran % (Auto) 0.3 (0.0-0.4) % Neut % (Auto) 66.3 (45-73) % Lymph % (Auto) 24.3 (20-40) % [facility] % (Auto) 7.5 (2-11) % Eos % (Auto) 1.1 (0-4) % Baso % (Auto) 0.5 (0-2) % Lymph # (Auto) 2.5 (1.2-4.9) X10*3/uL [facility] # (Auto) 0.8 (0.1-1.2) X10*3/uL Eos # (Auto) 0.1 (0.0-0.4) X10*3/uL Baso # (Auto) 0.1 (0.0-0.2) X10*3/uL Abs Immat Gran (auto) 0.03 (0.00-0.03) X10*3/uL Absolute Neuts (auto) 6.8 (2.0-8.3) x10*3/uL Absolute Nucleated RBC 0.000 (0.0-0.012) X10*3/uL Nucleated RBC % (auto) 0.0 (0.0-0.2) /100WBC PT (9.9-13.0) SEC INR (0.9-1.1) APTT (24.1-38.0) SEC D-Dimer High Sensitivty NG/ML Sodium 140 (135-145) mmol/L Potassium 5.3 H (3.3-5.1) mmol/L Chloride 102 (96-108) mmol/L Carbon Dioxide 32 H (22-29) mmol/L Anion Gap 11 L (12-20) BUN 13 (9-16) mg/dL Creatinine 1.19 (0.5-1.4) mg/dL Estim Creat Clear Calc 71.4 Estimated GFR 47 Random Glucose 216 H (60-115) mg/dL Calcium 9.5 (8.4-10.2) mg/dL Troponin I High Sens 48.5 H (<3.5-17.0) ng/L 06/23/21 06/23/21 Range/Units 21:43 21:43 WBC (4.8-10.8) X10*3/uL RBC (4.20-5.50) X10*6/uL Hgb (12.0-16.0) g/dl Hct (37.0-47.0) % MCV (80.0-98.0) fL MCH (27.0-33.0) pg MCHC (31.0-35.0) g/dl RDW (11.0-16.0) % Plt Count (160-400) X10*3/uL MPV (9.4-12.3) fL Immature Gran % (Auto) (0.0-0.4) % Neut % (Auto) (45-73) % Lymph % (Auto) (20-40) % [facility] % (Auto) (2-11) % Eos % (Auto) (0-4) % Baso % (Auto) (0-2) % Lymph # (Auto) (1.2-4.9) X10*3/uL [facility] # (Auto) (0.1-1.2) X10*3/uL Eos # (Auto) (0.0-0.4) X10*3/uL Baso # (Auto) (0.0-0.2) X10*3/uL Abs Immat Gran (auto) (0.00-0.03) X10*3/uL Absolute Neuts (auto) (2.0-8.3) x10*3/uL Absolute Nucleated RBC (0.0-0.012) X10*3/uL Nucleated RBC % (auto) (0.0-0.2) /100WBC PT 14.0 H (9.9-13.0) SEC INR 1.2 H (0.9-1.1) APTT 43.5 H (24.1-38.0) SEC D-Dimer High Sensitivty 158 NG/ML Sodium (135-145) mmol/L Potassium (3.3-5.1) mmol/L Chloride (96-108) mmol/L Carbon Dioxide (22-29) mmol/L Anion Gap (12-20) BUN (9-16) mg/dL Creatinine (0.5-1.4) mg/dL Estim Creat Clear Calc Estimated GFR Random Glucose (60-115) mg/dL Calcium (8.4-10.2) mg/dL Troponin I High Sens 52.4 H* (<3.5-17.0) ng/L ECG Data Attestation: I personally reviewed and interpreted this ECG as follows: Interpretation: 2301: Atrial fibrillation with a ventricular rate of 120, prolonged QRS of 110 and prolonged QTC of 483, occasional PVC, no ST segment elevation, no ST segment depression, poor R-wave progression V1 through V3 consistent with old septal infarct Discharge Plan Discharge Clinical Impression: Atrial fibrillation with RVR, Acute dyspnea, Edema, peripheral Patient Disposition: Admitted As Inpatient
[2021-06-23 21:53] LABS: INTERNATIONAL NORM RATIO 1.2 (0.9-1.1)
[2021-06-23 21:55] LABS: D Dimer High Sensitivity 158 NG/ML
[2021-06-23 21:56] LABS: Partial Thromboplastin Time 43.5 SEC (24.1-38.0)
[2021-06-23] MEDS: Furosemide 100 MG/10 ML VIAL 80 MG IVPUSH (22:48)
--- NOTE | 2021-06-23 23:54 | PM.IMHP ---
History of Present Illness Date of Service: 06/23/21 Chief Complaint: SOB 56-year-old male with past medical history of paroxysmal AFib, CHF, COPD, diabetes, sleep apnea as well as sleep apnea presents to the hospital with complaints of shortness of breath, orthopnea, PND, lower extremity edema for the past 2 weeks. Patient reports that he has now developed dyspnea on exertion, has shortness of breath on minimal activity. He also noticed lower extremity edema more on the left leg than right, he has a dry cough, no fever or chills, no chest pain, but reports palpitations, no abdominal pain nausea or vomiting, no diarrhea constipation, no urinary symptoms. On arrival to the ED patient hemodynamically stable found to have heart rate ranging between 100-120, AFib with RVR Vitals otherwise stable Labs showed WBC of 11.7, INR of 1.2, troponin 40.5 repeat 52.4, BNP of 493. Patient received 80 mg of Lasix IV, as well as 5 mg of Eliquis venous ultrasound done on the left lower extremity showed no DVT case was discussed with Cardiology, who recommended no further diuretic at this time, and maintaining heart rate between 100-130 until we receive echocardiogram Review of Systems Review of Systems: Yes all other systems are reviewed and are negative [facility] Medical History Afib CHF (congestive heart failure) COPD (chronic obstructive pulmonary disease) COVID-19 Diabetes Sleep apnea Family History Mother Cerebral hemorrhage Father Coronary artery disease Surgical History History of cardiac radiofrequency ablation Social History Alcohol intake: never Use of substances other than those prescribed or required for medical reasons: No Advance Directives: No Advance Directives Information Provided: No Meds Allergies Allergy/AdvReac Type Severity Reaction Status Date / Time No Known Allergies Allergy Verified 06/23/21 13:58 Home Medications Medication Instructions Recorded Confirmed Last Taken Type albuterol sulfate 90 mcg/actuation 2 puff PO Q6H PRN 06/23/21 06/23/21 Unknown History aerosol inhaler amiodarone 200 mg tablet 1 tab PO DAILY 06/23/21 06/23/21 Unknown History apixaban 5 mg tablet (Eliquis) 1 tab PO BID 06/23/21 06/23/21 Unknown History atorvastatin 40 mg tablet 1 tab PO BEDTIME 06/23/21 06/23/21 Unknown History dulaglutide 0.75 mg/0.5 mL 0.75 mg SUBCUT QWEEK 06/23/21 06/23/21 Unknown History subcutaneous pen injector (Trulicity) empagliflozin 25 mg tablet 1 tab PO DAILY 06/23/21 06/23/21 Unknown History (Jardiance) furosemide 40 mg tablet 1 tab PO BID 06/23/21 06/23/21 Unknown History insulin glargine 100 unit/mL (3 40 unit SUBCUT BEDTIME 06/23/21 06/23/21 Unknown History mL) subcutaneous pen (Lantus Solostar U-100 Insulin) lisinopril 5 mg tablet 1 tab PO DAILY 06/23/21 06/23/21 Unknown History metformin 500 mg tablet 1 tab PO DAILY 06/23/21 06/23/21 Unknown History omeprazole 20 mg capsule,delayed 1 cap PO DAILY 06/23/21 06/23/21 Unknown History release sertraline 25 mg tablet 1 tab PO DAILY 06/23/21 06/23/21 Unknown History Physical Exam Vital Signs and Narrative: Vital Signs: Last Vital Signs Temp 98.7 F 06/23/21 14:41 Pulse 121 H 06/23/21 14:41 Resp 20 06/23/21 14:41 BP 108/68 06/23/21 14:41 Pulse Ox 96 06/23/21 14:41 BMI result Body Mass Index 34.8 Const: General: cooperative and no acute distress Orientation/consciousness: patient oriented x3 Eyes: General: appearance normal, both eyes and all related structures Resp: Effort & Inspection: normal respiratory effort Auscultation: clear to auscultation bilaterally Cardio: Rate: regular rate Rhythm: regular rhythm GI: Palpation (GI): Soft to palpation Auscultation: normal bowel sounds Skin: General skin exam: no rashes or lesions noted Neuro: General: patient oriented x3 Cognition (Neuro): normal cognition Extrem: Other: 1+ pedal edema on the left lower extremity General: Yes normal to inspection Results Labs CBC and Chem 7: 06/24/21 04:49 06/24/21 04:49 Labs: Laboratory Results - last 24 hr 06/23/21 06/23/21 06/23/21 14:24 14:24 14:24 MCV 90.7 MCH 28.5 MCHC 31.4 RDW 13.5 Plt Count 291 MPV 9.8 Immature Gran % (Auto) 0.3 Neut % (Auto) 66.3 Lymph % (Auto) 24.3 [facility] % (Auto) 7.5 Eos % (Auto) 1.1 Baso % (Auto) 0.5 Lymph # (Auto) 2.5 [facility] # (Auto) 0.8 Eos # (Auto) 0.1 Baso # (Auto) 0.1 Abs Immat Gran (auto) 0.03 Absolute Neuts (auto) 6.8 Absolute Nucleated RBC 0.000 Nucleated RBC % (auto) 0.0 PT INR APTT D-Dimer High Sensitivty Anion Gap 11 L Estim Creat Clear Calc 71.4 Estimated GFR 47 Random Glucose 216 H Calcium 9.5 Troponin I High Sens 48.5 H 06/23/21 06/23/21 21:43 21:43 MCV MCH MCHC RDW Plt Count MPV Immature Gran % (Auto) Neut % (Auto) Lymph % (Auto) [facility] % (Auto) Eos % (Auto) Baso % (Auto) Lymph # (Auto) [facility] # (Auto) Eos # (Auto) Baso # (Auto) Abs Immat Gran (auto) Absolute Neuts (auto) Absolute Nucleated RBC Nucleated RBC % (auto) PT 14.0 H INR 1.2 H APTT 43.5 H D-Dimer High Sensitivty 158 Anion Gap Estim Creat Clear Calc Estimated GFR Random Glucose Calcium Troponin I High Sens 52.4 H* Imaging Radiologist's Impressions: Impressions Chest X-Ray 06/23/21 14:35 IMPRESSION: Small right pleural effusion versus pleural scarring. Mild superjacent linear markings at appearance of atelectasis or scarring. A definitive infiltrate is not seen. If symptoms persist or worsen, a short-term repeat study including a lateral view would be helpful. Venous Duplex 06/23/21 22:40 IMPRESSION: No DVT demonstrated in the left lower extremity. Assessment and Plan (1) Atrial fibrillation with RVR: Status: Acute (2) CHF exacerbation: Status: Acute (3) Edema, peripheral: Status: Acute (4) Acute dyspnea: Status: Acute 56-year-old male with past medical history of CHF presents to the hospital with shortness of breath as well as AFib with RVR admitted for further management # AFib with RVR - most likely driven by CHF or vice versa - troponin slightly elevated - EKG shows AFib with RVR with no ST T-wave changes suggestive of ACS - discussed with Cardiology who recommends maintaining heart rate between 100-130 given on no cardiac output - will continue his home amiodarone - admit to telemetry - continue anticoagulation with Eliquis # CHF exacerbation - has dyspnea, orthopnea, PND, as well as pleural effusion on chest x-ray - given 80 mg of IV Lasix - takes 40 mg of Lasix p.o. b.i.d. at home - will obtain echocardiogram - strict I&O, low-sodium diet, daily - cardiology recommends to hold off further diuretics until echocardiogram obtained and patient is evaluated by Cardiology Service # peripheral edema - most likely secondary to CHF - negative for DVT - management as above for CHF # hypertension - stable - continue lisinopril # diabetes - will hold oral antihyperglycemics - continue home insulin, will add low-dose sliding scale insulin, diabetic diet DVT prophylaxis: Eliquis Quality Stroke Does the patient have a stroke diagnosis?: No VTE Prior VTE?: No VTE Risk Level:: Medical - moderate - high VTE Device Contraindication: Treatment Not Indicated VTE Drug Contraindication: N/A - Med Ordered
[2021-06-23 23:58] LABS: B Type Natriuretic Peptide 493 pg/mL (<100)
[2021-06-24] VITALS (11 sets, daily range): BP systolic 105–136; BP diastolic 64–82; PULSE 91–128; RESP 16–30; TEMP 36.7–36.9; O2SAT 94–97
[2021-06-24] MEDS: Apixaban 5 MG TABLET PO ×2 (00:07→09:15)
--- NOTE | 2021-06-24 01:08 | CA_ITS ---
Transthoracic Echocardiogram Amended Patient (Last, First, Middle): Jr Cruz, Gender: Male Date of : 1965 Age: 56 Procedure Date: 06/24/2021 Procedure Type: Transthoracic Echocardiogram Location: ER Height: 180.34 cm Weight: 113.4 kg BSA: 2.32 m2 Heart Rate: bpm BP: 114 / 70 mmHg Coil Tier: Referring MD: Polo Clark MD Symptoms: CHF , afib with rvr Study Quality: Fair ECG Rhythm: Atrial Fibrillation Conclusions: - The left ventricular systolic function is severely decreased. The visually estimated ejection fraction is between 15-20%. - Mildly increased right ventricular cavity size. There is borderline right ventricular systolic function. - The left atrium is moderately dilated. - Significantly elevated right atrial pressure. Mild pulmonary hypertension is present. Findings Left Ventricle Normal left ventricular cavity size. There is normal left ventricular wall thickness. The left ventricular systolic function is severely decreased. The visually estimated ejection fraction is between 15-20%. There is severe global hypokinesis. Diastolic function is indeterminate on the basis of available data. Right Ventricle Mildly increased right ventricular cavity size. There is borderline right ventricular systolic function. Atria The left atrium is moderately dilated. Aortic Valve Normal aortic valve structure and function. There is no aortic valve stenosis. There is no aortic valve regurgitation. Mitral Valve Normal mitral valve structure and function. There is no mitral valve regurgitation. There is no mitral valve stenosis. Pulmonic Valve The pulmonic valve is likely normal. Tricuspid Valve Normal tricuspid valve structure and function. There is trace tricuspid valve regurgitation. Significantly elevated right atrial pressure. Mild pulmonary hypertension is present. Great Vessels All visible segments of the aorta are normal in size. The visualized portions of the pulmonary artery and branches are normal. Venous The inferior vena cava is dilated and does not collapse with inspiration. Pericardium/Pleural There is no evidence of pericardial effusion. Prior Study Comparison No prior study available for comparison. Measurements 2D Linear Measurements IVSd: 0.99 0.6-0.9/0.6-1.0 cm LVIDd: 4.84 3.9-5.3/4.2-5.9 cm LVIDd Index: 2.09 2.4-3.2/2.2-3.1 cm/m2 LVIDs: 4.31 2.0-3.6 cm LVPWd: 1.07 0.7-1.1 cm Ao Root: 3.30 2.1-3.5 cm LA Diam: 3.50 2.7-3.8/3.0-4.0 cm LAIDs Index: 1.51 1.5-2.3 cm/m2 LV Mass: 222.99 67-162/88-224 g LV Mass Index: 96.12 43-95/49-115 g/m2 LVOT Diam: 2.10 3.0+(-)1.3 cm 2D Volumes LA Vol: 33.40 Mitral Valve MV Pk E: 1.05 MV Decel Time: 69.00 E'Lateral: 10.40 E'Medial: 5.00 E/E' Med: 21.00 E/E' Lat: 10.10 PHT: 20.00 MVA PHT: 11.00 Decel [place]: 15.16 Aortic Valve AoV Pk Rashawn: 1.05 AoV Mn Rashawn: 0.73 AoV VTI: 0.20 AoV Pk Grad: 4.00 Aov Mn Grad: 3.00 AFSANEH Cont.VTI: 1.69 LVOT LVOT Pk Rashawn: 0.70 LVOT Mn Rashawn: 0.44 LVOT VTI: 0.10 LVOT Pk Grad: 2.00 LVOT Mn Grad: 1.00 LVOT Diam: 2.10 LVOT Area: 3.46 Diastolic Function MV Pk E: 1.05 E'Medial: 5.00 E/E' Med: 21.00 E' Laterial: 10.40 E/E' Lat: 10.10 Right Ventricle TAPSE (mm): 18.00 Tricuspid Valve TR Pk Rashawn: 2.47 TR Pk Grad: 24.00 RVSP: 41.00 Great Vessels Aorta Ao Root-2D: 3.30 2.0-3.7 cm Pulmonary Valve PV Pk Rashawn: 0.75 Peak PV Grad: 2.00 Updated in Other Vendor System with Status of Final Jaspreet Montoya MD electronically signed on 06/24/2021 2:14:46 PM with status of Final
--- NOTE | 2021-06-24 04:33 | PC.NURSE ---
Pt noted to have approx 20 sec. run of V tach on equipment monitor phototypesetting. Pt awake and alert on assessment, asymptomatic, denies feeling palpitations. Vitals as charted. MD Clark notified.
[2021-06-24 04:53] LABS: MANUAL DIFF FLAG NO
[2021-06-24 04:55] LABS: Basophils Absolute Auto 0.1 X10*3/uL (0.0-0.2); Basophils Percent Auto 0.4 % (0-2); Eosinophils Absolute Auto 0.1 X10*3/uL (0.0-0.4); Eosinophils Percent Auto 1.2 % (0-4); Hematocrit 48.9 % (42.0-52.0); Hemoglobin 15.4 g/dl (14.0-18.0); Imm Gran Abs Auto 0.03 X10*3/uL (0.00-0.03); Imm Gran Pct Auto 0.3 % (0.0-0.4); Lymphocytes Absolute Auto 3.6 X10*3/uL (1.2-4.9); Mean Corpuscular HGB Conc 31.5 g/dl (31.0-36.0); Mean Corpuscular Volume 88.9 fL (80.0-98.0); Mean Platelet Volume 9.7 fL (9.4-12.4); Monocytes Absolute Auto 0.9 X10*3/uL (0.1-1.2); Monocytes Percent Auto 7.4 % (2-11); Neutrophils Percent Auto 59.7 % (45-73); Platelet Count 300 X10*3/uL (160-400); Red Cell Distribution Width 13.2 % (11.0-16.0); White Blood Count 11.7 X10*3/uL (4.8-10.8)
[2021-06-24] MEDS: Amiodarone HCL 200 MG TABLET PO ×2 (04:55→09:14)
[2021-06-24 05:21] LABS: Carbon Dioxide 29 mmol/L (22-29); Chloride 103 mmol/L (96-108); Sodium 140 mmol/L (135-145)
[2021-06-24 05:22] LABS: Anion Gap 12 (12-20); Blood Urea Nitrogen 14 mg/dL (9-16); Calcium 9.2 mg/dL (8.4-10.2); Creatinine Clr Calc Pharmacy 92.8; Estimated Glomerular Filt Rate > 60; Glucose Random 141 mg/dL (60-115); Magnesium 2.4 mg/dL (1.6-2.6)
[2021-06-24 07:31] LABS: Glucose, Whole Blood 140 mg/dL (60-115)
[2021-06-24] MEDS: Sertraline HCL 25 MG TABLET PO (09:14)
[2021-06-24] MEDS: Omeprazole 20 MG CAPSULE.DR PO (09:15)
--- NOTE | 2021-06-24 09:23 | PC.NURSE ---
Pr A&Ox3, states he feels uncomfortable from his heart racing and beating. Pt NPO at this time, allowed sips for morning meds, awaiting plan, possible cardiovert. Call sal within reach, will continue to monitor.
--- NOTE | 2021-06-24 10:09 | PM.CNCAR ---
History of Present Illness History of Present Illness Date of Service: 06/24/21 Requesting physician: Wilfredo Shay Chief complaint: A Fib w RVR Narrative: 56-year-old gentleman with known history of atrial fibrillation with previous ablation and cardioversion as well as cardiomyopathy with last ejection fraction of 35-40% who is presenting with shortness of breath progressive over few weeks and then worsening shortness of breath in the last week. He has known COPD and has been an active smoker. He also has been on amiodarone for rhythm control strategy. He had lower extremity edema left more than right lower extremity. He also is complaining of some orthopnea. No significant chest discomfort. Has been taking Eliquis regularly. Lab work is showing TSH less than 0.01. ECG has shown AFib with RVR. [facility] Past Medical History Medical History Afib CAD (coronary artery disease) Cardiomyopathy CHF (congestive heart failure) COPD (chronic obstructive pulmonary disease) COPD (chronic obstructive pulmonary disease) COVID-19 Diabetes Diabetes mellitus type 2, uncontrolled Heart failure with reduced ejection fraction History of cardioversion KIMANI (obstructive sleep apnea) Paroxysmal atrial fibrillation Sleep apnea Sleep apnea Smoker Family History Family History Father Atherosclerosis Mother Cerebral aneurysm Maternal Grandmother Unknown family medical history Surgical History Surgical History (Updated 06/24/21 @ 11:01 by Myrna Almendarez) H/O heart artery stent History of cardiac radiofrequency ablation History of esophagogastroduodenoscopy History of fracture of leg History of inguinal hernia History of umbilical hernia Hx of colonoscopy Social History Social History (System 06/24/21 @ 11:01 by Myrna Almendarez) Household Members: Friend(s) Housing: House Alcohol intake: never Patient Tobacco Use Status: Current everyday Tobacco user Tobacco use type: Cigarette Cigarettes Per Day: 20 Years Smoked: 40 e-Cigarette/Vaping Use: Former Use service: No Current occupational status: unemployed Meds Allergies Allergy/AdvReac Type Severity Reaction Status Date / Time No Known Allergies Allergy Verified 06/24/21 11:01 [No Known Allergies*] Active Medications: Current Medications Acetaminophen (Acetaminophen 325 Mg Tablet) 650 mg PO Q6H PRN PRN Reason: Pain, Mild (Pain Scale 1-3) Amiodarone HCl (Amiodarone Hcl 200 Mg Tablet) 200 mg PO DAILY MARILEE Last Admin: 06/24/21 09:14 Dose: 200 mg Documented by: Apixaban (Apixaban 5 Mg Tablet) 5 mg PO BID [facility] Last Admin: 06/24/21 09:15 Dose: 5 mg Documented by: Atorvastatin Calcium (Atorvastatin Calcium 40 Mg Tablet) 40 mg PO BEDTIME MARILEE Dextrose (Dextrose 50 % 25 Gm/50 Ml Vial) 25 gm IVPUSH Q15M PRN; Protocol PRN Reason: per Hypoglycemia Standing Ord. Docusate Sodium (Docusate Sodium 100 Mg Capsule) 100 mg PO DAILY PRN PRN Reason: Constipation Furosemide (Furosemide 40 Mg/4 Ml Vial) 40 mg IVPUSH BID@0900,1800 [facility]; Protocol Glucose (Glucose Gel 15 Gm Gel..Gram.) 15 gm PO Q15M PRN; Protocol PRN Reason: per Hypoglycemia Standing Ord. Insulin Glargine (Insulin Glargine,Hum.Rec.Anlog 100 Unit/Ml 10 Ml Vial) 40 unit SUBCUT BEDTIME [facility] Insulin Human Lispro (Insulin Lispro 100 Unit/Ml 3 Ml Vial) 0 unit SUBCUT QIDACHS [facility]; Protocol Last Admin: 06/24/21 09:05 Dose: Not Given Documented by: Lisinopril (Lisinopril 5 Mg Tablet) 5 mg PO DAILY [facility]; Protocol Omeprazole (Omeprazole 20 Mg Capsule.Dr) 20 mg PO DAILY [facility] Last Admin: 06/24/21 09:15 Dose: 20 mg Documented by: Ondansetron HCl (Ondansetron Hcl 4 Mg/2 Ml Vial) 4 mg IVPUSH Q8H PRN PRN Reason: Nausea and Vomiting Sertraline HCl (Sertraline Hcl 25 Mg Tablet) 25 mg PO DAILY [facility] Last Admin: 06/24/21 09:14 Dose: 25 mg Documented by: Sodium Chloride (0.9 % Sodium Chloride Flush 3 Ml Syringe) 3 [facility] Last Admin: 06/24/21 09:05 Dose: Not Given Documented by: Home Medications Medication Instructions Recorded Confirmed Last Taken Type amiodarone 200 mg tablet 200 mg PO DAILY 08/21/20 03/25/21 Unknown History umeclidinium 62.5 mcg/actuation 1 puff PO DAILY 10/30/20 03/25/21 Unknown History blister powder for inhalation (Incruse Ellipta) metoprolol tartrate 50 mg tablet 50 mg PO BID 03/25/21 03/25/21 Unknown History albuterol sulfate 90 mcg/actuation 2 puff PO Q6H PRN 06/23/21 06/23/21 Unknown History aerosol inhaler amiodarone 200 mg tablet 1 tab PO DAILY 06/23/21 Unknown History apixaban 5 mg tablet (Eliquis) 5 mg PO BID 06/23/21 06/24/21 Unknown History atorvastatin 40 mg tablet 40 tab PO BEDTIME 06/23/21 06/24/21 Unknown History dulaglutide 0.75 mg/0.5 mL 0.75 mg SUBCUT TH 06/23/21 06/24/21 Unknown History subcutaneous pen injector (Trulicity) empagliflozin 25 mg tablet 25 mg PO DAILY 06/23/21 06/24/21 Unknown History (Jardiance) furosemide 40 mg tablet 40 mg PO BID 06/23/21 06/24/21 Unknown History insulin glargine 100 unit/mL (3 40 unit SUBCUT BEDTIME 06/23/21 06/23/21 Unknown History mL) subcutaneous pen (Lantus Solostar U-100 Insulin) lisinopril 5 mg tablet 5 mg PO DAILY 06/23/21 06/24/21 Unknown History metformin 500 mg tablet 500 mg PO DAILY 06/23/21 06/24/21 Unknown History omeprazole 20 mg capsule,delayed 20 mg PO DAILY 06/23/21 06/24/21 Unknown History release sertraline 25 mg tablet 25 mg PO DAILY 06/23/21 06/24/21 Unknown History gabapentin 300 mg capsule 300 mg PO TID 06/24/21 06/24/21 Unknown History umeclidinium 62.5 mcg/actuation 1 inh INHALATION DAILY 06/24/21 06/24/21 Unknown History blister powder for inhalation (Incruse Ellipta) Physical Exam Vital Signs: Vital Signs: Last Vital Signs Temp 98.7 F 06/23/21 14:41 Pulse 118 H 06/24/21 09:14 Resp 24 H 06/24/21 05:58 BP 114/70 06/24/21 09:14 Pulse Ox 95 06/24/21 05:58 BMI result Body Mass Index 34.8 GENERAL APPEARANCE: in no acute distress, pleasant. NECK: no carotid bruit, + jugular venous distention. SKIN: no suspicious lesions, warm and dry. HEART: no murmurs, irregular rate and rhythm. LUNGS: clear to auscultation bilaterally. ABDOMEN: soft, nontender. EXTREMITIES: 1 to 2+ edema. PERIPHERAL PULSES: equal. NEUROLOGIC: No gross deficits, AAO X 3 Objective Labs and Meds Result diagrams: 06/24/21 04:49 06/24/21 04:49 Lab results: Laboratory Results - last 24 hr 06/23/21 06/23/21 06/23/21 14:24 14:24 14:24 WBC 10.2 RBC 5.37 Hgb 15.3 Hct 48.7 H MCV 90.7 MCH 28.5 MCHC 31.4 RDW 13.5 Plt Count 291 MPV 9.8 Immature Gran % (Auto) 0.3 Neut % (Auto) 66.3 Lymph % (Auto) 24.3 [place] % (Auto) 7.5 Eos % (Auto) 1.1 Baso % (Auto) 0.5 Lymph # (Auto) 2.5 [place] # (Auto) 0.8 Eos # (Auto) 0.1 Baso # (Auto) 0.1 Abs Immat Gran (auto) 0.03 Absolute Neuts (auto) 6.8 Absolute Nucleated RBC 0.000 Nucleated RBC % (auto) 0.0 PT INR APTT D-Dimer High Sensitivty Sodium 140 Potassium 5.3 H Chloride 102 Carbon Dioxide 32 H Anion Gap 11 L BUN 13 Creatinine 1.19 Estim Creat Clear Calc 71.4 Estimated GFR 47 POC Glucose Random Glucose 216 H Calcium 9.5 Magnesium Troponin I High Sens 48.5 H B-Natriuretic Peptide 06/23/21 06/23/21 06/24/21 21:43 21:43 04:49 WBC 11.7 H RBC 5.50 Hgb 15.4 Hct 48.9 MCV 88.9 MCH 28.0 MCHC 31.5 RDW 13.2 Plt Count 300 MPV 9.7 Immature Gran % (Auto) 0.3 Neut % (Auto) 59.7 Lymph % (Auto) 31.0 [place] % (Auto) 7.4 Eos % (Auto) 1.2 Baso % (Auto) 0.4 Lymph # (Auto) 3.6 [place] # (Auto) 0.9 Eos # (Auto) 0.1 Baso # (Auto) 0.1 Abs Immat Gran (auto) 0.03 Absolute Neuts (auto) 7.0 Absolute Nucleated RBC 0.000 Nucleated RBC % (auto) 0.0 PT 14.0 H INR 1.2 H APTT 43.5 H D-Dimer High Sensitivty 158 Sodium Potassium Chloride Carbon Dioxide Anion Gap BUN Creatinine Estim Creat Clear Calc Estimated GFR POC Glucose Random Glucose Calcium Magnesium Troponin I High Sens 52.4 H* B-Natriuretic Peptide 493 H 06/24/21 06/24/21 04:49 07:26 WBC RBC Hgb Hct MCV MCH MCHC RDW Plt Count MPV Immature Gran % (Auto) Neut % (Auto) Lymph % (Auto) [place] % (Auto) Eos % (Auto) Baso % (Auto) Lymph # (Auto) [place] # (Auto) Eos # (Auto) Baso # (Auto) Abs Immat Gran (auto) Absolute Neuts (auto) Absolute Nucleated RBC Nucleated RBC % (auto) PT INR APTT D-Dimer High Sensitivty Sodium 140 Potassium 4.0 D Chloride 103 Carbon Dioxide 29 Anion Gap 12 BUN 14 Creatinine 1.11 Estim Creat Clear Calc 92.8 Estimated GFR > 60 POC Glucose 140 H Random Glucose 141 H Calcium 9.2 Magnesium 2.4 Troponin I High Sens B-Natriuretic Peptide Imaging Radiologist's impression: Impressions Chest X-Ray 06/23/21 14:35 IMPRESSION: Small right pleural effusion versus pleural scarring. Mild superjacent linear markings at appearance of atelectasis or scarring. A definitive infiltrate is not seen. If symptoms persist or worsen, a short-term repeat study including a lateral view would be helpful. Venous Duplex 06/23/21 22:40 IMPRESSION: No DVT demonstrated in the left lower extremity. Assessment and Plan (1) Atrial fibrillation with RVR: Status: Acute (2) CHF exacerbation: Status: Acute Pleasant 56-year-old gentleman who is presenting for shortness of breath and AFib with RVR. Echocardiography showing EF of 15-20%. He has known cardiomyopathy with EF 35-40% before. Clinically also in heart failure at this point. I think we should diurese him with 40 mg IV b.i.d. Lasix. His TSH is significantly suppressed and has been on amiodarone. Amiodarone can cause hyperthyroidism and I think we need to understand this better. He is tentatively NPO right now for potential cardioversion. Will discuss the case with endocrine. He is quite symptomatic right now and I think we may have to attempt cardioversion although there is a possibility that he may go back into atrial fibrillation if he is truly hyperthyroid. His T4 levels are normal and I have added a free T3 level. We will need advised from endocrine obviously. Continue Eliquis as before. He has not missed any dose of Eliquis in the last 6 weeks. Keep NPO for now. Thank you for allowing me to participate in the care of your patient. Please feel free to contact me if you have any questions. Procedures Date of Service Date of Service: 06/24/21
[2021-06-24 10:13] LABS: COVID-19 Test Negative (Negative)
--- NOTE | 2021-06-24 10:15 | PC.NURSE ---
Report given to short stay, plan for transport after 3pm, pt made aware. Will continue to monitor.
--- NOTE | 2021-06-24 10:50 | MHC.CM.ED ---
Met with patient in regards to discharge planning. Patient lives with his girlfriend Chitra, ambulates with a cane when needed and has a nurse upper caser through [facility]. No additional services anticipated to be needed at this time. PCP verified. Patient has a HCP on file in [facility]. Patient received 2 Pfizer vaccines. IMM explained and signed. Chitra will transport patient when medically stable. Continue to monitor for d/c needs.
--- NOTE | 2021-06-24 10:52 | PHA.MEDREC ---
Addendum entered by Cece Schwartz RPh 06/24/21 11:06: Patient has no been seen by [facility] since January of 2021 Original Note: Pharmacy Consult ? Medication Reconciliation Pharmacy has completed the medication reconciliation. Patient had an outdate list with medications on them. Amiodarone 200 mg last filled in [place] 2020 for a 90 day supply. Patient assumed he was taking it since it is on the list. Reports his girlfirend picks up his medications. Tried to call the prescriber office to confirm if patient should be on the medications. Waiting for reply. Dr Shay update on the issue. Cece Schwartz, PharmD
--- NOTE | 2021-06-24 11:10 | PHA.MEDREC ---
Pharmacy Consult ? Medication Reconciliation Pharmacy has completed the medication reconciliation. Patient had an outdate list with medications on them. Amiodarone 200 mg last filled in [place] 2020 for a 90 day supply. Patient assumed he was taking it since it is on the list. Reports his girlfirend picks up his medications. Tried to call the prescriber office to confirm if patient should be on the medications. Patient has not been seen by [facility] since January 2020. Dr Shay update on the issue. Cece Schwartz, PharmD
[2021-06-24] MEDS: Furosemide 40 MG/4 ML VIAL IVPUSH (12:03)
--- NOTE | 2021-06-24 12:12 | PC.NURSE ---
Pt meedicated with Lasix, off to SS at this time.
--- NOTE | 2021-06-24 12:28 | PC.NURSE ---
Patient ate a few bites of eggs at 0700 this morning . Anesthesia aware. Okay per Dr. Zimmerman, Dr. Priest, and Dr. Alexandre to proceed with surgery at 1300.
[2021-06-24 12:45] LABS: Glucose, Whole Blood 151 mg/dL (60-115)
--- NOTE | 2021-06-24 13:09 | MHC.SHP ---
Pre-Procedural Eval Section A Date of Service: 06/24/21 The patient is an INPATIENT: Yes Section B Chief Complaint: A Fib w RVR Allergies: Allergies Allergy/AdvReac Type Severity Reaction Status Date / Time No Known Allergies Allergy Verified 06/24/21 11:01 [No Known Allergies*] Plan Diagnosis/Plan: Unchanged I have reviewed the history and physical and performed a pertinent physical examination on my patient. No changes have occurred unless specified.
[2021-06-24] MEDS: Lactated Ringers 1,000 ML 50 ML IVCONT (13:11)
--- NOTE | 2021-06-24 13:58 | HO.CARDIVERS ---
Cardioversion Procedure Note Cardioversion Date of Procedure: 06/24/21 Ordering Provider: Jaspreet Montoya Performing Provider: Jaspreet Montoya Indication for Procedure: Afib Pre-Op Diagnosis: Afib Post-Op Diagnosis: Afib Performed with Transesophageal Echo: No Consent: Verbal and Written consent was obtained from the patient before starting. The patient was made aware of the risk of stroke and aspiration. Procedure: After consent obtained, defib pads were attached and the patient was sedated by the anesthesia team. Once adequate sedation achieved, the patient was given a single synchronized shock of 200 J. He converted to sinus rhythm. The patient was left in a stable condition for recovery with anesthesia.
[2021-06-24] MEDS: Gabapentin 300 MG CAPSULE PO (15:30)
--- NOTE | 2021-06-24 16:33 | P.DS_ITS ---
DS: Providers Provider Date of Service: 06/24/21 Date of admission: 06/23/21 23:54 Date of discharge: 06/24/21 Primary care physician: ANA ROSA Harris Consults: 06/24/21 01:08 Consult to Cardiology Routine Consulting Provider: Jaspreet Montoya Reason for consultation: A fib w rvr, CHF Has provider been notified: Yes DS: Diagnosis Discharge Diagnosis (1) Atrial fibrillation with RVR: Status: Acute (2) Acute dyspnea: Status: Acute (3) Low TSH level: Status: Acute DS: Summary Hospital Course Hospital Course: ?56-year-old gentleman with known history of atrial fibrillation with previous ablation and cardioversion as well as cardiomyopathy with last ejection fraction of 35-40% who is presenting with shortness of breath progressive over few weeks and then worsening shortness of breath in the last week.? He has known COPD and has been an active smoker.? He also has been on amiodarone for rhythm control strategy.? He had lower extremity edema left more than right lower extremity.? He also is complaining of some orthopnea.? No significant chest discomfort.? Has been taking Eliquis regularly.? Lab work is showing TSH less than 0.01.? ECG has shown AFib with RVR. Hospital course Admitted on telemetry and monitored overnight. Earlier today. Seen by Cardiology and underwent synchronized cardioversion with return of sinus rhythm. Discussed with Cardiology; at this time patient is acceptable for discharge home to continue Eliquis and stop amiodarone. He is to follow up with Cardiology as an outpatient. Of note, TSH was suppressed at less than 0.01 with a normal free T4. He will need follow-up with endocrinology as an outpatient Time Spent with Patient Time attestation: Total time spent providing and/or coordinating discharge services: Discharge coordination time: Greater than 30 minutes Quality: Stroke Does the patient have a stroke diagnosis?: No Physical Exam Vital Signs: Vital Signs: Last Vital Signs Temp 98.5 F 06/24/21 13:45 Pulse 91 06/24/21 14:26 Resp 18 06/24/21 14:26 BP 106/64 06/24/21 14:26 Pulse Ox 96 06/24/21 14:26 BMI result Body Mass Index 34.8 Const: Other: No acute distress Resp: Other: Clear to auscultation bilaterally no rales rhonchi wheezes Cardio: Other: Regular rate and rhythm; positive S4; positive S1-S2; no S3 murmurs rubs or gallops Neuro: Other: Cranial nerves 2-12 grossly intact as tested. Motor is 5/5 extremities. Sensation intact. Cognition appropriate Extrem: Other: Plus edema bilateral DS: Data Data Completed and Pending Labs on day of discharge: Laboratory Results - last 24 hr 06/23/21 06/23/21 06/24/21 21:43 21:43 04:49 WBC 11.7 H RBC 5.50 Hgb 15.4 Hct 48.9 MCV 88.9 MCH 28.0 MCHC 31.5 RDW 13.2 Plt Count 300 MPV 9.7 Immature Gran % (Auto) 0.3 Neut % (Auto) 59.7 Lymph % (Auto) 31.0 [place] % (Auto) 7.4 Eos % (Auto) 1.2 Baso % (Auto) 0.4 Lymph # (Auto) 3.6 [place] # (Auto) 0.9 Eos # (Auto) 0.1 Baso # (Auto) 0.1 Abs Immat Gran (auto) 0.03 Absolute Neuts (auto) 7.0 Absolute Nucleated RBC 0.000 Nucleated RBC % (auto) 0.0 PT 14.0 H INR 1.2 H APTT 43.5 H D-Dimer High Sensitivty 158 Sodium Potassium Chloride Carbon Dioxide Anion Gap BUN Creatinine Estim Creat Clear Calc Estimated GFR POC Glucose Random Glucose Calcium Magnesium Troponin I High Sens 52.4 H* B-Natriuretic Peptide 493 H COVID-19 ([facility]) COVID-19 Clin Com 06/24/21 06/24/21 06/24/21 04:49 07:26 09:49 WBC RBC Hgb Hct MCV MCH MCHC RDW Plt Count MPV Immature Gran % (Auto) Neut % (Auto) Lymph % (Auto) [place] % (Auto) Eos % (Auto) Baso % (Auto) Lymph # (Auto) [place] # (Auto) Eos # (Auto) Baso # (Auto) Abs Immat Gran (auto) Absolute Neuts (auto) Absolute Nucleated RBC Nucleated RBC % (auto) PT INR APTT D-Dimer High Sensitivty Sodium 140 Potassium 4.0 D Chloride 103 Carbon Dioxide 29 Anion Gap 12 BUN 14 Creatinine 1.11 Estim Creat Clear Calc 92.8 Estimated GFR > 60 POC Glucose 140 H Random Glucose 141 H Calcium 9.2 Magnesium 2.4 Troponin I High Sens B-Natriuretic Peptide COVID-19 ([facility]) Negative COVID-19 Clin Com See Note 06/24/21 12:02 WBC RBC Hgb Hct MCV MCH MCHC RDW Plt Count MPV Immature Gran % (Auto) Neut % (Auto) Lymph % (Auto) [place] % (Auto) Eos % (Auto) Baso % (Auto) Lymph # (Auto) [place] # (Auto) Eos # (Auto) Baso # (Auto) Abs Immat Gran (auto) Absolute Neuts (auto) Absolute Nucleated RBC Nucleated RBC % (auto) PT INR APTT D-Dimer High Sensitivty Sodium Potassium Chloride Carbon Dioxide Anion Gap BUN Creatinine Estim Creat Clear Calc Estimated GFR POC Glucose 151 H Random Glucose Calcium Magnesium Troponin I High Sens B-Natriuretic Peptide COVID-19 ([facility]) COVID-19 Clin Com Discharge Plan Discharge Patient Disposition: Home, Self-Care Discharge Diagnosis: Afib with RVR Referrals: Phi Crisostomo, [facility]- [Primary Care Provider] - 1 Week Discharge Medications: Continued cholecalciferol (vitamin D3) 50 mcg (2,000 unit) capsule 50 mcg PO DAILY 90 Days Qty: 90 RF: 2 lisinopril 5 mg tablet 5 mg PO DAILY Qty: 90 RF: 3 sertraline 25 mg tablet 25 mg PO DAILY Qty: 90 RF: 2 empagliflozin [Jardiance] 25 mg tablet 25 mg PO DAILY Qty: 90 RF: 0 furosemide 40 mg tablet 40 mg PO BID Qty: 180 RF: 0 Trulicity 0.75 mg/0.5 mL pen injector 0.75 mg subcut QWEEK 30 Days Qty: 2.5 RF: 4 albuterol sulfate 90 mcg/actuation HFA aerosol inhaler 2 puff PO Q6H PRN (Reason: for wheezing) Qty: 8.5 RF: 3 Lantus Solostar U-100 Insulin 100 unit/mL (3 mL) insulin pen 40 unit subcut BEDTIME 30 Days Qty: 12 RF: 3 gabapentin 300 mg capsule 300 mg PO .COMPLEX 90 Days Qty: 360 RF: 0 metformin 500 mg tablet 500 mg PO DAILY Qty: 90 RF: 0 omeprazole 20 mg capsule,delayed release(DR/EC) 20 mg PO DAILY Qty: 90 RF: 0 atorvastatin 40 mg tablet 40 mg PO BEDTIME Qty: 90 RF: 0 Eliquis 5 mg tablet 5 mg PO BID 90 Days Qty: 180 RF: 3 Hold Instructions: Resume on 11/11/20. Hold Eliquois x 5 days FreeStyle Lite Strips Strip 1 strip miscellaneous BID 30 Days Qty: 100 RF: 0 Incruse Ellipta 62.5 mcg/actuation blister with device 1 puff PO DAILY RF: 0 metoprolol tartrate 50 mg tablet 50 mg PO BID RF: 0 furosemide 40 mg tablet 40 mg PO BID RF: 0 atorvastatin 40 mg tablet 40 tab PO BEDTIME RF: 0 metformin 500 mg tablet 500 mg PO DAILY RF: 0 sertraline 25 mg tablet 25 mg PO DAILY RF: 0 omeprazole 20 mg capsule,delayed release(DR/EC) 20 mg PO DAILY RF: 0 lisinopril 5 mg tablet 5 mg PO DAILY RF: 0 albuterol sulfate 90 mcg/actuation HFA aerosol inhaler 2 puff PO Q6H PRN (Reason: wheezing) RF: 0 Lantus Solostar U-100 Insulin 100 unit/mL (3 mL) insulin pen 40 unit subcut BEDTIME RF: 0 Eliquis 5 mg tablet 5 mg PO BID RF: 0 Jardiance 25 mg tablet 25 mg PO DAILY RF: 0 Trulicity 0.75 mg/0.5 mL pen injector 0.75 mg subcut TH RF: 0 gabapentin 300 mg capsule 300 mg PO TID RF: 0 Incruse Ellipta 62.5 mcg/actuation Blister With Device 1 inh INHALATION DAILY RF: 0 Citrucel 500 mg tablet 500 mg PO BID Qty: 60 RF: 2 Discontinued amiodarone 200 mg tablet 1 tab PO DAILY RF: 0 amiodarone 200 mg tablet 200 mg PO DAILY RF: 0 Discharge Orders: Discharge Order (Routine); Ordered 06/24/21 Ordered By: Wilfredo Shay Diet: advance to usual diet Activity on Discharge: As tolerated Stand Alone Forms: Patient Portal Discharge page Care Plan Goals: Need to follow up with PCP for investigation of your thyroid Health Concerns: Follow-up with Cardiology; endocrine as per PCP Plan of Treatment: Continue all home meds; no further amiodarone Assessment: As above
--- NOTE | 2021-06-24 17:29 | PC.NURSE ---
Pt A&OX3, PO intake post procedure tolerated well. No complaints of pain at this time, plan for DC home, pt aware and agreeable to POC.
--- NOTE | 2021-06-25 10:25 | P.CDIR_ITS ---
Documented by User: Mandy Parson CCS, CDIS 06/25/21 10:31 Retrospective Query PHYSICIAN'S DOCUMENTATION REQUEST Date of Query: 06/25/21 1026 Patient Name: Jr Cruz Admit Date: 06/23/21 Dear Doctor, A review of the medical record indicates additional documentation may be needed. Please review below and update the documentation accordingly. Clinical Indicators: Risk Factors/Clinical Indicators/Treatments Cardiology note: 06/24-worsening shortness of breath, 2+ edema, orthopnea. PMH: CHF Ejection fraction 35-40% Clinically is in heart failure at this time, diureses. IV Lasix. BNP 493 H Atrial fibrillation. Home medication: Furosemide 40mg twice a day. Please provide further specificity regarding the most likely type and acuity of CHF you are evaluating, treating, or monitoring. Examples include: Type: * Systolic * Diastolic * Combined Systolic/Diastolic * Other ? please specify * Unable to determine Acuity: * Acute * Chronic * Acute on chronic * Unable to determine Use of terms such as suspected, likely, concern for, or probable (associated with a specific diagnosis that is being evaluated, monitored, or treated as if it exists) are acceptable and can be coded in the inpatient setting, when documented at the time of discharge. Thank you, Mandy Parson CCS, CDIS Extension: [phone] Please use your independent medical judgment in providing your response. THIS QUERY IS PART OF THE PERMANENT MEDICAL RECORD Documented by User: Wilfredo Shay DO 07/04/21 18:05 Retrospective Query Provider Response: Other
[2021-06-25 21:06] LABS: Triiodothyronine T3 Free 4.4 pg/mL (2.3-4.2)
[2021-07-02 12:26] LABS: Hematocrit 48.7 % (42.0-52.0); Hemoglobin 15.3 g/dl (14.0-18.0); Red Blood Count 5.37 X10*6/uL (4.60-5.80)
[2021-07-02 12:27] LABS: Mean Corpuscular HGB Conc 31.4 g/dl (31.0-36.0); Mean Platelet Volume 9.8 fL (9.4-12.4)
[2021-07-02 12:30] LABS: Troponin-I High Sensitivity 52.4 ng/L (<3.5-35.0)
[2021-07-02 12:47] LABS: Troponin-I High Sensitivity 48.5 ng/L (<3.5-35.0)
== END 2021-06-24 17:36 | disposition home or self-care (01) | DRG 310 ==
LOC: HO.ED 23:40 → HO.EDOVER 06-24 00:15
PROVIDERS: Internal Medicine Cardiovascular Disease; Admitting Provider Internal Medicine; Emergency Provider Emergency Medicine Emergency Medical Services; PCP Nurse Practitioner Family; Visit Provider Hospitalist
PROC: 5A2204Z Restoration of Cardiac Rhythm, Single (ICD-10-PCS; principal; 2021-06-24 13:00)
DX: I48.91 Unspecified atrial fibrillation (principal); I11.0 Hypertensive heart disease with heart failure; E11.9 Type 2 diabetes mellitus without complications; I50.9 Heart failure, unspecified; F17.210 Nicotine dependence, cigarettes, uncomplicated; I42.9 Cardiomyopathy, unspecified; Z71.6 Tobacco abuse counseling; Z79.4 Long term (current) use of insulin; Z79.01 Long term (current) use of anticoagulants; Z79.84 Long term (current) use of oral hypoglycemic drugs; Z79.899 Other long term (current) drug therapy
CPT/HCPCS: 36415; 71045; 80048; 82947; 83735; 83880; 84481; 84484; 85025; 85379; 85610; 85730; 87635; 92960; 93005; 93306; 93971; 99285; J1940; Q9957

== ENCOUNTER 2021-07-03 11:55 | Outpatient (REF) | payer OTHER, SELFPAY ==
--- NOTE | ~2021-07-03 | XR_ITS ---
EXAMINATION: XR SHOULDER, LEFT CLINICAL INFORMATION: Pain. COMPARISON: None TECHNIQUE: 2 images are submitted of the left shoulder. FINDINGS: Mild degeneration at the AC joint. There is acromial spurring. Some sclerotic change at the insertion of the superior rotator cuff. Consistent with degeneration. The glenohumeral articulation shows some mild irregularity posterior. XR/XR shoulder LT min 2V IMPRESSION: Degenerative changes as described. Findings may preclude to impingement. If further evaluation is warranted consider MR.
== END 2021-07-03 11:56 | disposition home or self-care (01) ==
LOC: HO.HOSX 11:55
PROVIDERS: Visit Provider Physician Assistant
DX: M75.82 Other shoulder lesions, left shoulder (principal)
CPT/HCPCS: 20610; 73030; 99212; J1020

== ENCOUNTER 2021-07-07 12:43 | Inpatient (IN) | payer OTHER, SELFPAY ==
--- NOTE | ~2021-07-07 | XR_ITS ---
EXAMINATION: XR CHEST CLINICAL INFORMATION: Dyspnea COMPARISON: Previous chest x-rays most recent May 2021 and 07/07/2021 TECHNIQUE: Frontal view of the chest was obtained. FINDINGS: The cardiac silhouette is enlarged but stable. There is pulmonary venous redistribution, increased interstitial markings and blunting at the right lateral costophrenic angle. Findings are similar to previous recent chest x-rays. Appearance is questionable for mild CHF. There is no left pleural effusion or pleural thickening. Bony structures are unremarkable. XR/XR chest 1V IMPRESSION: Stable chest x-ray questionable for mild CHF.
--- NOTE | ~2021-07-07 | XR_ITS ---
EXAMINATION: XR CHEST CLINICAL INFORMATION: Cough. COMPARISON: Chest radiograph dated from 06/23/2021. TECHNIQUE: AP view of the chest was obtained. FINDINGS: Stable appearance of the cardiomediastinal silhouette. Similar degree of interstitial prominence and platelike opacities in the lung bases. Unchanged blunting of the right costophrenic angle. No large pleural effusion. No pneumothorax. No acute osseous abnormalities. XR/XR chest 1V IMPRESSION: Stable examination since 06/23/2021 with redemonstration of indeterminate blunting of the right costophrenic angle and increased interstitial markings.
[2021-07-07 12:50] VITALS: BP 121/78; PULSE 135; RESP 22; TEMP 36.1; O2SAT 99; BMI 33.5
--- NOTE | 2021-07-07 12:54 | ECG_ITS ---
Test Reason : chest pain Blood Pressure : / mmHG Vent. Rate : 133 BPM Atrial Rate : 000 BPM P-R Int : 000 ms QRS Dur : 112 ms QT Int : 330 ms P-R-T Axes : 000 021 050 degrees QTc Int : 491 ms Atrial fibrillation with rapid ventricular response with premature ventricular or aberrantly conducted complexes Septal infarct (cited on or before 16-AUG-2018) Lateral infarct (cited on or before 16-AUG-2018) Abnormal ECG When compared with ECG of 24-JUN-2021 13:48, Atrial fibrillation has replaced Sinus rhythm Referred By: Generic ED Physician Electronically Signed By:DIAN WORRELL
--- NOTE | 2021-07-07 14:42 | ED.CHESTPAIN ---
HPI - Chest Pain General Chief Complaint: Chest Pain Stated Complaint: Afib Time Seen by Provider: 07/07/21 13:34 Source: patient Mode of arrival: ambulatory Limitations: no limitations History of Present Illness HPI narrative: This is a 56 years old the patient with history of paroxysmal atrial fibrillation, anticoagulated with apixaban, status post cardioversion presented to the emergency department with a chief complaint of shortness of breath and chest pain MD complaint: chest pain Onset (ago): day(s) (2) Timing of current episode: constant Onset: during rest Pain location: substernal Pain radiation: none Quality: dull Relieving factors: nothing Exacerbating factors: nothing Context: recent illness Associated symptoms: nausea Risk Factors Thoracic aortic dissection risk factors: none Related Data Home Medications Medication Instructions Recorded Confirmed umeclidinium 62.5 mcg/actuation 1 puff PO DAILY 10/30/20 03/25/21 blister powder for inhalation (Incruse Ellipta) metoprolol tartrate 50 mg tablet 50 mg PO BID 03/25/21 03/25/21 albuterol sulfate 90 mcg/actuation 2 puff PO Q6H PRN 06/23/21 06/23/21 aerosol inhaler apixaban 5 mg tablet (Eliquis) 5 mg PO BID 06/23/21 06/24/21 atorvastatin 40 mg tablet 40 tab PO BEDTIME 06/23/21 06/24/21 dulaglutide 0.75 mg/0.5 mL 0.75 mg SUBCUT TH 06/23/21 06/24/21 subcutaneous pen injector (Trulicity) empagliflozin 25 mg tablet 25 mg PO DAILY 06/23/21 06/24/21 (Jardiance) furosemide 40 mg tablet 40 mg PO BID 06/23/21 06/24/21 insulin glargine 100 unit/mL (3 40 unit SUBCUT BEDTIME 06/23/21 06/23/21 mL) subcutaneous pen (Lantus Solostar U-100 Insulin) lisinopril 5 mg tablet 5 mg PO DAILY 06/23/21 06/24/21 metformin 500 mg tablet 500 mg PO DAILY 06/23/21 06/24/21 omeprazole 20 mg capsule,delayed 20 mg PO DAILY 06/23/21 06/24/21 release sertraline 25 mg tablet 25 mg PO DAILY 06/23/21 06/24/21 gabapentin 300 mg capsule 300 mg PO TID 06/24/21 06/24/21 umeclidinium 62.5 mcg/actuation 1 inh INHALATION DAILY 06/24/21 06/24/21 blister powder for inhalation (Incruse Ellipta) Previous Rx's Medication Instructions Recorded cholecalciferol (vitamin D3) 50 50 mcg PO DAILY 90 Days #90 cap 05/08/20 mcg (2,000 unit) capsule lisinopril 5 mg tablet 5 mg PO DAILY #90 tab 07/19/20 sertraline 25 mg tablet 25 mg PO DAILY #90 tab 10/28/20 methylcellulose (laxative) 500 mg 500 mg PO BID #60 tab 12/20/20 tablet (Citrucel) empagliflozin 25 mg tablet 25 mg PO DAILY #90 tab 01/14/21 (Jardiance) furosemide 40 mg tablet 40 mg PO BID #180 tab 01/14/21 dulaglutide 0.75 mg/0.5 mL 0.75 mg (0.5 mL) SUBCUT QWEEK 30 02/08/21 subcutaneous pen injector Days #2.5 ml (Trulicity) albuterol sulfate 90 mcg/actuation 2 puff PO Q6H PRN #8.5 g 02/12/21 aerosol inhaler insulin glargine 100 unit/mL (3 40 unit (0.4 mL) SUBCUT BEDTIME 30 02/17/21 mL) subcutaneous pen (Lantus Days #12 ml Solostar U-100 Insulin) gabapentin 300 mg capsule 300 mg PO .COMPLEX 90 Days #360 cap 03/14/21 metformin 500 mg tablet 500 mg PO DAILY #90 tab 04/14/21 omeprazole 20 mg capsule,delayed 20 mg PO DAILY #90 cap 04/14/21 release apixaban 5 mg tablet (Eliquis) 5 mg PO BID 90 Days #180 tab 04/18/21 blood sugar diagnostic (FreeStyle 1 strip MISCELLANEOUS BID 30 Days 04/22/21 Lite Strips) #100 strip albuterol sulfate 2.5 mg (3 mL) INHALATION QID PRN 06/26/21 30 Days #90 ml Allergies Allergy/AdvReac Type Severity Reaction Status Date / Time No Known Allergies Allergy Verified 07/07/21 09:24 [No Known Allergies*] [facility] Past Medical History Medical History Afib CAD (coronary artery disease) Cardiomyopathy CHF (congestive heart failure) COPD (chronic obstructive pulmonary disease) COPD (chronic obstructive pulmonary disease) COVID-19 Diabetes Diabetes mellitus type 2, uncontrolled Heart failure with reduced ejection fraction History of cardioversion KIMANI (obstructive sleep apnea) Paroxysmal atrial fibrillation Sleep apnea Sleep apnea Smoker Surgical History H/O heart artery stent History of cardiac radiofrequency ablation History of esophagogastroduodenoscopy History of fracture of leg History of inguinal hernia History of umbilical hernia Hx of colonoscopy Family History Family History Father Atherosclerosis Mother Cerebral aneurysm Maternal Grandmother Unknown family medical history Mother Cerebral hemorrhage Father Coronary artery disease Social History Social History Household Members: Friend(s) Housing: House Alcohol intake: never Patient Tobacco Use Status: Current everyday Tobacco user Tobacco use type: Cigarette Cigarettes Per Day: 10 Years Smoked: 46 e-Cigarette/Vaping Use: Former Use Second Hand Smoke Exposure: Yes Advance Directives: No Advance Directives Information Provided: No service: No Current occupational status: unemployed and disabled Current occupation: rt handed Physical Exam Vital Signs: Vital Signs: Last Vital Signs Temp 97 F 07/07/21 12:50 Pulse 135 H 07/07/21 12:50 Resp 22 H 07/07/21 12:50 BP 121/78 07/07/21 12:50 Pulse Ox 99 07/07/21 12:50 BMI result Body Mass Index 33.5 Const: General: cooperative Orientation/consciousness: patient oriented x3 HENMT: Head: Yes normal to inspection Face and sinus: Yes normal facial exam Mouth: Normal oral and palatal mucosa present Throat: Yes posterior oropharynx normal Neck: Neck: Yes normal visual inspection Chest: Chest palpation & inspection: normal inspection of the chest Resp: Effort & Inspection: normal respiratory effort Auscultation: clear to auscultation bilaterally Cardio: Jugular venous distension: no JVD Rhythm: abnormal rhythm GI: Inspection: Yes normal to inspection Palpation (GI): Soft to palpation Skin: General skin exam: no rashes or lesions noted, elasticity normal and turgor normal Rashes: no rashes Neuro: General: patient oriented x3 Cranial nerves: Yes CN's II-XII intact bilaterally Course Reevaluation(s) Reevaluation #1: labs pending signed off to Dr Ramirez anticipate admission MDM - Chest Pain Imaging Data Chest x-ray: Radiologist's impression: Cough. COMPARISON: Chest radiograph dated from 06/23/2021. TECHNIQUE: AP view of the chest was obtained. FINDINGS: Stable appearance of the cardiomediastinal silhouette. Similar degree of interstitial prominence and platelike opacities in the lung bases. Unchanged blunting of the right costophrenic angle. No large pleural effusion. No pneumothorax. No acute osseous abnormalities. XR/XR chest 1V IMPRESSION: Stable examination since 06/23/2021 with redemonstration of indeterminate blunting of the right costophrenic angle and increased interstitial markings. ? Dictated By: Lenora Gomez Signed By: <Electronically signed by Lenora? Jason in OV> 07/07/21 1523 DD/ 1455 ECG Data ECG #1: Pacemaker model: A.Fib. 133 no ischemic changes Critical Care Time Critical Care Time Critical Care Time: Yes Total Critical Care Time: 30 Attestation: IV cardizem and titration Discharge Plan Discharge Clinical Impression: Atrial fibrillation with rapid ventricular response Prescriptions: No Action cholecalciferol (vitamin D3) 50 mcg (2,000 unit) capsule 50 mcg PO DAILY 90 Days Qty: 90 RF: 2 lisinopril 5 mg tablet 5 mg PO DAILY Qty: 90 RF: 3 sertraline 25 mg tablet 25 mg PO DAILY Qty: 90 RF: 2 empagliflozin [Jardiance] 25 mg tablet 25 mg PO DAILY Qty: 90 RF: 0 furosemide 40 mg tablet 40 mg PO BID Qty: 180 RF: 0 Trulicity 0.75 mg/0.5 mL pen injector 0.75 mg subcut QWEEK 30 Days Qty: 2.5 RF: 4 albuterol sulfate 90 mcg/actuation HFA aerosol inhaler 2 puff PO Q6H PRN (Reason: for wheezing) Qty: 8.5 RF: 3 Lantus Solostar U-100 Insulin 100 unit/mL (3 mL) insulin pen 40 unit subcut BEDTIME 30 Days Qty: 12 RF: 3 gabapentin 300 mg capsule 300 mg PO .COMPLEX 90 Days Qty: 360 RF: 0 metformin 500 mg tablet 500 mg PO DAILY Qty: 90 RF: 0 omeprazole 20 mg capsule,delayed release(DR/EC) 20 mg PO DAILY Qty: 90 RF: 0 Eliquis 5 mg tablet 5 mg PO BID 90 Days Qty: 180 RF: 3 Hold Instructions: Resume on 11/11/20. Hold Eliquois x 5 days FreeStyle Lite Strips Strip 1 strip miscellaneous BID 30 Days Qty: 100 RF: 0 albuterol sulfate 2.5 mg /3 mL (0.083 %) solution for nebulization 2.5 mg inhalation QID PRN (Reason: shortness of breath or wheezing) 30 Days Qty: 90 RF: 1 Incruse Ellipta 62.5 mcg/actuation blister with device 1 puff PO DAILY RF: 0 metoprolol tartrate 50 mg tablet 50 mg PO BID RF: 0 furosemide 40 mg tablet 40 mg PO BID RF: 0 atorvastatin 40 mg tablet 40 tab PO BEDTIME RF: 0 metformin 500 mg tablet 500 mg PO DAILY RF: 0 sertraline 25 mg tablet 25 mg PO DAILY RF: 0 omeprazole 20 mg capsule,delayed release(DR/EC) 20 mg PO DAILY RF: 0 lisinopril 5 mg tablet 5 mg PO DAILY RF: 0 albuterol sulfate 90 mcg/actuation HFA aerosol inhaler 2 puff PO Q6H PRN (Reason: wheezing) RF: 0 Lantus Solostar U-100 Insulin 100 unit/mL (3 mL) insulin pen 40 unit subcut BEDTIME RF: 0 Eliquis 5 mg tablet 5 mg PO BID RF: 0 Jardiance 25 mg tablet 25 mg PO DAILY RF: 0 Trulicity 0.75 mg/0.5 mL pen injector 0.75 mg subcut TH RF: 0 gabapentin 300 mg capsule 300 mg PO TID RF: 0 Incruse Ellipta 62.5 mcg/actuation Blister With Device 1 inh INHALATION DAILY RF: 0 Citrucel 500 mg tablet 500 mg PO BID Qty: 60 RF: 2
[2021-07-07] MEDS: dilTIAZem HCL 125 MG in 0.9 % Sodium Chloride 100 ML 10 MG IVCONT (15:00)
[2021-07-07] MEDS: dilTIAZem HCL 50 MG/10 ML VIAL 20 MG IVPUSH (15:01)
[2021-07-07 16:36] LABS: MANUAL DIFF FLAG NO
[2021-07-07 16:38] LABS: Basophils Absolute Auto 0.1 X10*3/uL (0.0-0.2); Basophils Percent Auto 0.5 % (0-2); Eosinophils Absolute Auto 0.1 X10*3/uL (0.0-0.4); Hematocrit 50.4 % (42.0-52.0); Hemoglobin 15.6 g/dl (14.0-18.0); Imm Gran Abs Auto 0.04 X10*3/uL (0.00-0.03); Imm Gran Pct Auto 0.3 % (0.0-0.4); Lymphocytes Absolute Auto 3.2 X10*3/uL (1.2-4.9); Lymphocytes Percent Auto 27.3 % (20-40); Mean Corpuscular Hemoglobin 27.8 pg (27.0-33.0); Mean Corpuscular Volume 89.8 fL (80.0-98.0); Mean Platelet Volume 10.2 fL (9.4-12.4); Monocytes Absolute Auto 0.8 X10*3/uL (0.1-1.2); Monocytes Percent Auto 6.8 % (2-11); Neutrophils Absolute Auto 7.6 x10*3/uL (2.0-8.3); Neutrophils Percent Auto 64.1 % (45-73); Platelet Count 282 X10*3/uL (160-400); Red Blood Count 5.61 X10*6/uL (4.60-5.80); Red Cell Distribution Width 13.6 % (11.0-16.0); White Blood Count 11.8 X10*3/uL (4.8-10.8)
[2021-07-07 16:48] LABS: COVID-19 Test Positive (Negative); IDNOW Serial# 55D5AD1C
[2021-07-07 16:52] LABS: Alanine Aminotransferase 22 U/L (0-40); Albumin Level 3.8 g/dL (3.5-5.0); Alkaline Phosphatase 109 U/L (39-117); Anion Gap 13 (12-20); Aspartate Amino Transferase 14 U/L (5-37); Bilirubin Total 0.5 mg/dL (0.0-1.0); Blood Urea Nitrogen 18 mg/dL (9-16); Calcium 9.8 mg/dL (8.4-10.2); Carbon Dioxide 31 mmol/L (22-29); Chloride 102 mmol/L (96-108); Creatinine Clr Calc Pharmacy 73.2; Estimated Glomerular Filt Rate 53; Glucose Random 187 mg/dL (60-115); Potassium 5.5 mmol/L (3.3-5.1); Sodium 140 mmol/L (135-145); Total Protein 6.9 g/dL (6.5-8.0)
[2021-07-07 16:56] VITALS: BP 104/61; PULSE 96; RESP 23; TEMP 36.9; O2SAT 95
[2021-07-07 16:56] LABS: B Type Natriuretic Peptide 967 pg/mL (<100); Troponin-I High Sensitivity 71.5 ng/L (<3.5-35.0)
--- NOTE | 2021-07-07 16:57 | PC.NURSE ---
Pt. is alert and oriented x 3. pt. with increased work of breathing at rest. Tachypneic. Limited air movement on ausc. Pt. speaks in short choppy sentences. a.fib with frequent PVCs. Pt. with minimal peripheral edema. Face flushed.
[2021-07-07] MEDS: dexAMETHasone sod phosphate 4 MG/ML VIAL 6 MG IVPUSH (19:58)
[2021-07-07] MEDS: Furosemide 20 MG/2 ML VIAL IVPUSH (19:58)
[2021-07-07 20:01] VITALS: BP 105/68; PULSE 87; RESP 26; O2SAT 96
[2021-07-07 20:35] VITALS: PULSE 83; RESP 23; O2SAT 95
--- NOTE | 2021-07-07 21:48 | P.HPHOSP_ITS ---
History of Present Illness Date of Service: 07/07/21 Chief Complaint: SOB 48-year-old male with past medical history of paroxysmal AFib, CHF, COPD, diabetes, sleep apnea presents to the hospital with complaints of shortness of breath. Patient reports that he has been feeling short of breath for the past 1 week, went to his PCP with the same complaint, an EKG was done in the office and he was found in AFib with RVR and asked to come to the hospital. Patient was in the hospital at the end of May and underwent cardioversion for his AFib and is now back in AFib with RVR. He reports minimal cough, no sputum production, no fever or chills, he has orthopnea, PND, no lower extremity edema. He denies any chest pain, no headache or change in vision, no abdominal pain, no nausea or vomiting, no diarrhea constipation no urinary symptoms. On arrival to the ED patient was found to have a heart rate of 132 vitals otherwise normal Labs are significant for WBC count of 11.8, potassium 5.5, BUN of 18, creatinine of 1.38 with a baseline of 1.1, troponin of 71.5, BNP of 967, COVID-19 positive. Chest x-ray shows stable exam since 06/23 with redemonstration of intermediate blunting of the right costophrenic angle and increased interstitial markings. Patient started on Cardizem drip and will be admitted further management Review of Systems Review of Systems: Yes all other systems are reviewed and are negative [facility] Medical History Afib CAD (coronary artery disease) Cardiomyopathy CHF (congestive heart failure) COPD (chronic obstructive pulmonary disease) COPD (chronic obstructive pulmonary disease) COVID-19 Diabetes Diabetes mellitus type 2, uncontrolled Heart failure with reduced ejection fraction History of cardioversion KIMANI (obstructive sleep apnea) Paroxysmal atrial fibrillation Sleep apnea Sleep apnea Smoker Family History Father Atherosclerosis Mother Cerebral aneurysm Maternal Grandmother Unknown family medical history Mother Cerebral hemorrhage Father Coronary artery disease Surgical History H/O heart artery stent History of cardiac radiofrequency ablation History of esophagogastroduodenoscopy History of fracture of leg History of inguinal hernia History of umbilical hernia Hx of colonoscopy Social History Household Members: Friend(s) Housing: House Alcohol intake: never Patient Tobacco Use Status: Current everyday Tobacco user Tobacco use type: Cigarette Cigarettes Per Day: 10 Years Smoked: 46 e-Cigarette/Vaping Use: Former Use Second Hand Smoke Exposure: Yes Advance Directives: No Advance Directives Information Provided: No service: No Current occupational status: unemployed and disabled Current occupation: rt handed Meds Allergies Allergy/AdvReac Type Severity Reaction Status Date / Time No Known Allergies Allergy Verified 07/07/21 09:24 [No Known Allergies*] Active Medications: Current Medications Diltiazem HCl 125 mg/ Sodium (Chloride) 125 mls @ 0 mls/hr IVCONT .Q0M MARILEE; Protocol Last Admin: 07/07/21 15:00 Dose: 10 mg/hr, 10 mls/hr Documented by: Home Medications Medication Instructions Recorded Confirmed Last Taken Type umeclidinium 62.5 mcg/actuation 1 puff PO DAILY 10/30/20 07/07/21 07/07/21 History blister powder for inhalation (Incruse Ellipta) albuterol sulfate 90 mcg/actuation 2 puff PO Q6H PRN 06/23/21 07/07/21 Unknown History aerosol inhaler atorvastatin 40 mg tablet 40 tab PO BEDTIME 06/23/21 07/07/21 07/06/21 History dulaglutide 0.75 mg/0.5 mL 0.75 mg SUBCUT TH 06/23/21 07/07/21 07/03/21 History subcutaneous pen injector (Trulicity) empagliflozin 25 mg tablet 25 mg PO DAILY 06/23/21 07/07/21 07/07/21 History (Jardiance) insulin glargine 100 unit/mL (3 40 unit SUBCUT BEDTIME 06/23/21 07/07/21 07/06/21 History mL) subcutaneous pen (Lantus Solostar U-100 Insulin) lisinopril 5 mg tablet 2.5 mg PO BID 06/23/21 07/07/21 07/07/21 History omeprazole 20 mg capsule,delayed 20 mg PO DAILY 06/23/21 07/07/21 07/07/21 History release sertraline 25 mg tablet 25 mg PO DAILY 06/23/21 07/07/21 07/07/21 History gabapentin 300 mg capsule 300 mg PO TID 06/24/21 07/07/21 07/07/21 History insulin lispro 100 unit/mL 5 unit SUBCUT TIDWM 07/07/21 07/07/21 Unknown History subcutaneous solution (Humalog U-100 Insulin) Physical Exam Vital Signs and Narrative: Vital Signs: Last Vital Signs Temp 98.4 F 07/07/21 16:56 Pulse 83 07/07/21 20:35 Resp 23 H 07/07/21 20:35 BP 105/68 07/07/21 20:01 Pulse Ox 96 07/07/21 20:01 BMI result Body Mass Index 33.5 Const: General: cooperative and no acute distress Orientation/consciousness: patient oriented x3 Eyes: General: appearance normal, both eyes and all related structures Pupils: Equal, round and reactive pupils present Resp: Other: crackles bilaterally Effort & Inspection: normal respiratory effort Cardio: Rate: regular rate Rhythm: regular rhythm GI: Palpation (GI): Soft to palpation Auscultation: normal bowel sounds Skin: General skin exam: no rashes or lesions noted Neuro: General: patient oriented x3 Cranial nerves: Yes Equal, round and reactive pupils present Cognition (Neuro): normal cognition Extrem: General: Yes normal to inspection and Yes no pedal edema Results Labs CBC and Chem 7: 07/07/21 16:24 07/07/21 16:24 Labs: Laboratory Results - last 24 hr 07/07/21 07/07/21 07/07/21 16:24 16:24 16:24 MCV 89.8 MCH 27.8 MCHC 31.0 RDW 13.6 Plt Count 282 MPV 10.2 Immature Gran % (Auto) 0.3 Neut % (Auto) 64.1 Lymph % (Auto) 27.3 [place] % (Auto) 6.8 Eos % (Auto) 1.0 Baso % (Auto) 0.5 Lymph # (Auto) 3.2 [place] # (Auto) 0.8 Eos # (Auto) 0.1 Baso # (Auto) 0.1 Abs Immat Gran (auto) 0.04 H Absolute Neuts (auto) 7.6 Absolute Nucleated RBC 0.000 Nucleated RBC % (auto) 0.0 Anion Gap 13 Estim Creat Clear Calc 73.2 Estimated GFR 53 Random Glucose 187 H Calcium 9.8 D Total Bilirubin 0.5 AST 14 ALT 22 Alkaline Phosphatase 109 Troponin I High Sens 71.5 H B-Natriuretic Peptide Total Protein 6.9 Albumin 3.8 COVID-19 ([facility]) COVID-19 Clin Com 07/07/21 07/07/21 16:24 16:24 MCV MCH MCHC RDW Plt Count MPV Immature Gran % (Auto) Neut % (Auto) Lymph % (Auto) [place] % (Auto) Eos % (Auto) Baso % (Auto) Lymph # (Auto) [place] # (Auto) Eos # (Auto) Baso # (Auto) Abs Immat Gran (auto) Absolute Neuts (auto) Absolute Nucleated RBC Nucleated RBC % (auto) Anion Gap Estim Creat Clear Calc Estimated GFR Random Glucose Calcium Total Bilirubin AST ALT Alkaline Phosphatase Troponin I High Sens B-Natriuretic Peptide 967 H Total Protein Albumin COVID-19 ([facility]) Positive A COVID-19 Clin Com See Note Imaging Radiologist's Impressions: Impressions Chest X-Ray 07/07/21 14:55 IMPRESSION: Stable examination since 06/23/2021 with redemonstration of indeterminate blunting of the right costophrenic angle and increased interstitial markings. Assessment and Plan (1) Atrial fibrillation with rapid ventricular response: Status: Acute (2) CHF exacerbation: Status: Acute (3) COVID-19: Status: Acute (4) DECLAN (acute kidney injury): Status: Acute 56-year-old male with past medical history of AFib, CHF with reduced ejection fraction who presents to the hospital with AFib with RVR. # AFib with RVR - most likely driven by CHF exacerbation as well as COVID-19 infection - patient underwent cardioversion in May - started on Cardizem drip - started on p.o. metoprolol - will obtain TSH - continue apixaban - cardiology consult # CHF exacerbation - elevated BNP, dyspnea, orthopnea and PND - will start him on IV Lasix - takes 40 p.o. Lasix b.i.d. at home and reports compliance - last echocardiogram done on 06/24 shows an ejection fraction of 15-20% - cardiology consulted, will add daily weight, low-sodium diet, and strict I&O # DECLAN - most likely secondary to CHF - IV Lasix as above - follow BMP # hyperlipidemia - continue statin # diabetes - will hold p.o. anti hyperglycemics - start low-dose sliding scale insulin - diabetic diet DVT prophylaxis: Apixaban Quality Stroke Does the patient have a stroke diagnosis?: No VTE Prior VTE?: No VTE Risk Level:: Medical - moderate - high VTE Device Contraindication: Treatment Not Indicated VTE Drug Contraindication: N/A - Med Ordered
--- NOTE | 2021-07-07 22:26 | PHA.MEDREC ---
Pharmacy Consult ? Medication Reconciliation Pharmacy has completed the medication reconciliation. No remarkable issues. Olivia Howard RP
[2021-07-08] MEDS: Metoprolol Tartrate 12.5 MG HALFTAB PO ×2 (03:22→07:24)
[2021-07-08 04:57] VITALS: PULSE 72; RESP 18; O2SAT 99
--- NOTE | 2021-07-08 08:49 | ECG_ITS ---
Test Reason : vtach Blood Pressure : / mmHG Vent. Rate : 081 BPM Atrial Rate : 000 BPM P-R Int : 000 ms QRS Dur : 118 ms QT Int : 410 ms P-R-T Axes : 000 057 075 degrees QTc Int : 476 ms Atrial fibrillation Low voltage QRS Anterolateral infarct (cited on or before 16-AUG-2018) Abnormal ECG When compared with ECG of 07-JUL-2021 13:00, Vent. rate has decreased BY 52 BPM Referred By: Radha Block Electronically Signed By:DIAN WORRELL
--- NOTE | 2021-07-08 08:49 | PC.NURSE ---
pt had run of [employer]ch[employer] monitor. when checked on pt at that time, reported some l sided chest pain as well as some sob. pt adamantly requestin to use bathroom to have bm. pt ambulated steady to restroom w stand by assist. provider aware of cardiac status, ekg ordered.
--- NOTE | 2021-07-08 09:06 | PC.NURSE ---
EKG OBTAINED BY CARDIOLOGY DEPT AT [address]
[2021-07-08 09:08] LABS: Glucose, Whole Blood 469 mg/dL (60-115)
[2021-07-08 09:10] LABS: Troponin-I High Sensitivity 41.2 ng/L (<3.5-35.0)
[2021-07-08 09:25] LABS: Thyroid Stimulating Hormone 0.01 uIU/mL (0.32-4.0)
[2021-07-08] MEDS: Cholecalciferol (Vitamin D3) 25 MCG TABLET 50 MCG PO (09:30)
[2021-07-08] MEDS: Apixaban 5 MG TABLET PO ×2 (09:30→20:49)
[2021-07-08] MEDS: Aspirin Enteric Coated 81 MG TABLET.DR 162 MG PO (09:30)
[2021-07-08] MEDS: Gabapentin 300 MG CAPSULE PO ×3 (09:30→20:49)
[2021-07-08] MEDS: Sertraline HCL 25 MG TABLET PO (09:30)
[2021-07-08] MEDS: Insulin Lispro 100 UNIT/ML 3 ML VIAL SUBCUT ×3 (09:31→13:16)
[2021-07-08] MEDS: Omeprazole 20 MG CAPSULE.DR PO (09:31)
[2021-07-08] MEDS: Furosemide 40 MG/4 ML VIAL IVPUSH (09:31)
[2021-07-08] MEDS: lisinopriL 2.5 MG TABLET PO (09:38)
[2021-07-08] MEDS: Sodium Zirconium Cyclosilicate 10 GM POWD.PACK PO ×2 (09:38→12:54)
[2021-07-08] MEDS: Insulin Glargine,Hum.rec.anlog 100 UNIT/ML 10 ML VIAL 30 UNIT SUBCUT (09:45)
[2021-07-08 09:47] LABS: Anion Gap 17 (12-20); Blood Urea Nitrogen 27 mg/dL (9-16); Calcium 9.1 mg/dL (8.4-10.2); Carbon Dioxide 25 mmol/L (22-29); Chloride 97 mmol/L (96-108); Creatinine Clr Calc Pharmacy 52.9; Estimated Glomerular Filt Rate 36; Glucose Random 423 mg/dL (60-115); Potassium 6.4 mmol/L (3.3-5.1); Sodium 133 mmol/L (135-145)
[2021-07-08 10:35] LABS: Estimated Average Glucose 226 mg/dL; Hemoglobin A1c % 9.5 %
[2021-07-08 11:28] LABS: Glucose, Whole Blood 277 mg/dL (60-115)
--- NOTE | 2021-07-08 11:45 | P.CONCA_ITS ---
History of Present Illness History of Present Illness Date of Service: 07/08/21 Chief complaint: CHF, COVID Narrative: This is a cardiology consultation regarding atrial fibrillation. Currently admitted with positive COVID. Patient has history of nonischemic cardiomyopathy. He also has COPD and multiple medical comorbidities. He has a history of paroxysmal atrial fibrillation and a prior atrial fibrillation ablation few years ago. It seems that he had COVID infection last year in [facility] in that time had atrial fibrillation recurrence. Then 1 further recurrence couple weeks ago when he had cardioversion. It seems that his amiodarone was stopped because of thyroid function abnormalities. Now his PCP apparently did an EKG yesterday that showed atrial fibrillation and hence he was sent to the ER. His main complaint is again shortness of breath that he has had chronically. Otherwise, he was on a Cardizem drip any 1st arrived but not currently on. Home medication lists metoprolol 50 mg b.i.d. and Eliquis. Otherwise, there is a very brief strip showing probably ventricular tachycardia less likely artifact and at that time he had some sharp chest pains. However he has had sharp chest pains at different times since hospitalization and that could be from the COVID itself and hence not clear. Review of Systems Review of Systems: Yes all other systems are reviewed and are negative Cardiovascular: Cardiovascular: Reports as per HPI, Reports no additional cardiovascular complaints, Denies acrocyanosis, Denies cool extremities, Denies painful fingertips, Denies chest pain, Denies chest pain at rest, Denies diaphoresis, Denies syncope, Denies irregular heart rhythm, Denies claudication, Denies leg edema, Denies lightheadedness, Denies palpitations and Denies dyspnea Respiratory: Respiratory: Denies dyspnea Neurologic: Denies syncope Endocrine: Endocrine: Denies palpitations [facility] Past Medical History Medical History Afib CAD (coronary artery disease) Cardiomyopathy CHF (congestive heart failure) COPD (chronic obstructive pulmonary disease) COPD (chronic obstructive pulmonary disease) COVID-19 Diabetes Diabetes mellitus type 2, uncontrolled Heart failure with reduced ejection fraction History of cardioversion KIMANI (obstructive sleep apnea) Paroxysmal atrial fibrillation Sleep apnea Sleep apnea Smoker Family History Family History Father Atherosclerosis Mother Cerebral aneurysm Maternal Grandmother Unknown family medical history Mother Cerebral hemorrhage Father Coronary artery disease Surgical History Surgical History H/O heart artery stent History of cardiac radiofrequency ablation History of esophagogastroduodenoscopy History of fracture of leg History of inguinal hernia History of umbilical hernia Hx of colonoscopy Social History Social History Household Members: Friend(s) Housing: House Alcohol intake: never Patient Tobacco Use Status: Current everyday Tobacco user Tobacco use type: Cigarette Cigarettes Per Day: 10 Years Smoked: 46 e-Cigarette/Vaping Use: Former Use Second Hand Smoke Exposure: Yes Advance Directives: No Advance Directives Information Provided: No service: No Current occupational status: unemployed and disabled Current occupation: rt handed Meds Allergies Allergy/AdvReac Type Severity Reaction Status Date / Time No Known Allergies Allergy Verified 07/07/21 09:24 [No Known Allergies*] Active Medications: Current Medications Acetaminophen (Acetaminophen 325 Mg Tablet) 650 mg PO Q6H PRN PRN Reason: Pain, Mild (Pain Scale 1-3) Albuterol Sulfate (Albuterol Sulfate (0.083%) 2.5 Mg/3 Ml Vial.Neb) 2.5 mg INHALE QID PRN PRN Reason: shortness of breath or wheezing Albuterol Sulfate (Albuterol Sulfate 90 Mcg 8 Gm Inhaler) 2 puff INHALE Q6H PRN PRN Reason: wheezing Apixaban (Apixaban 5 Mg Tablet) 5 mg PO BID [facility] Last Admin: 07/08/21 09:30 Dose: 5 mg Documented by: Atorvastatin Calcium (Atorvastatin Calcium 80 Mg Tablet) 80 mg PO BEDTIME [facility] Dextrose (Dextrose 50 % 25 Gm/50 Ml Vial) 25 gm IVPUSH Q15M PRN; Protocol PRN Reason: per Hypoglycemia Standing Ord. Docusate Sodium (Docusate Sodium 100 Mg Capsule) 100 mg PO DAILY PRN PRN Reason: Constipation Furosemide (Furosemide 40 Mg/4 Ml Vial) 40 mg IVPUSH Q12H [facility]; Protocol Last Admin: 07/08/21 09:31 Dose: 40 mg Documented by: Gabapentin (Gabapentin 300 Mg Capsule) 300 mg PO TID [facility] Last Admin: 07/08/21 09:30 Dose: 300 mg Documented by: Glucose (Glucose Gel 15 Gm Gel..Gram.) 15 gm PO Q15M PRN; Protocol PRN Reason: per Hypoglycemia Standing Ord. Diltiazem HCl 125 mg/ Sodium (Chloride) 125 mls @ 0 mls/hr IVCONT .Q0M [facility]; Protocol Last Titration: 07/08/21 02:35 Dose: 0 mg/hr, 0 mls/hr Documented by: Insulin Glargine (Insulin Glargine,Hum.Rec.Anlog 100 Unit/Ml 10 Ml Vial) 30 unit SUBCUT DAILY [facility] Last Admin: 07/08/21 09:45 Dose: 30 unit Documented by: Insulin Human Lispro (Insulin Lispro 100 Unit/Ml 3 Ml Vial) 5 unit SUBCUT TIDWM [facility] Last Admin: 07/08/21 09:31 Dose: 5 unit Documented by: Insulin Human Lispro (Insulin Lispro 100 Unit/Ml 3 Ml Vial) 0 unit SUBCUT QIDACHS [facility]; Protocol Last Admin: 07/08/21 09:31 Dose: 10 unit Documented by: Lisinopril (Lisinopril 2.5 Mg Tablet) 2.5 mg PO BID [facility]; Protocol Last Admin: 07/08/21 09:38 Dose: 2.5 mg Documented by: Metoprolol Tartrate (Metoprolol Tartrate 12.5 Mg Halftab) 12.5 mg PO BID [facility]; Protocol Last Admin: 07/08/21 07:24 Dose: 12.5 mg Documented by: Non-Formulary Medication (Umeclidinium [Incruse Ellipta]) 1 puff PO DAILY [facility] Omeprazole (Omeprazole 20 Mg Capsule.Dr) 20 mg PO DAILY@0630 [facility] Last Admin: 07/08/21 09:31 Dose: 20 mg Documented by: Ondansetron HCl (Ondansetron Hcl 4 Mg/2 Ml Vial) 4 mg IVPUSH Q8H PRN PRN Reason: Nausea and Vomiting Pharmacy Consult (Consult Rx Perform Med Rec) 1 each MISCELLANE ONCE PRN PRN Reason: Consult order Sertraline HCl (Sertraline Hcl 25 Mg Tablet) 25 mg PO DAILY [facility] Last Admin: 07/08/21 09:30 Dose: 25 mg Documented by: Sodium Chloride (0.9 % Sodium Chloride Flush 3 Ml Syringe) 3 ml IVFLUSH QSHIFT [facility] Last Admin: 07/08/21 09:00 Dose: Not Given Documented by: Vitamin D (Cholecalciferol (Vitamin D3) 25 Mcg Tablet) 50 mcg PO DAILY [facility] Last Admin: 07/08/21 09:30 Dose: 50 mcg Documented by: Home Medications Medication Instructions Recorded Confirmed Last Taken Type umeclidinium 62.5 mcg/actuation 1 puff PO DAILY 10/30/20 07/07/21 07/07/21 History blister powder for inhalation (Incruse Ellipta) albuterol sulfate 90 mcg/actuation 2 puff PO Q6H PRN 06/23/21 07/07/21 Unknown History aerosol inhaler atorvastatin 40 mg tablet 40 tab PO BEDTIME 06/23/21 07/07/21 07/06/21 History dulaglutide 0.75 mg/0.5 mL 0.75 mg SUBCUT TH 06/23/21 07/07/21 07/03/21 History subcutaneous pen injector (Trulicity) empagliflozin 25 mg tablet 25 mg PO DAILY 06/23/21 07/07/21 07/07/21 History (Jardiance) insulin glargine 100 unit/mL (3 40 unit SUBCUT BEDTIME 06/23/21 07/07/21 0 07/06/21 History mL) subcutaneous pen (Lantus Solostar U-100 Insulin) lisinopril 5 mg tablet 2.5 mg PO BID 06/23/21 07/07/21 07/07/21 History omeprazole 20 mg capsule,delayed 20 mg PO DAILY 06/23/21 07/07/21 07/07/21 History release sertraline 25 mg tablet 25 mg PO DAILY 06/23/21 07/07/21 07/07/21 History gabapentin 300 mg capsule 300 mg PO TID 06/24/21 07/07/21 07/07/21 History insulin lispro 100 unit/mL 5 unit SUBCUT TIDWM 07/07/21 07/07/21 Unknown History subcutaneous solution (Humalog U-100 Insulin) Physical Exam Vital Signs: Vital Signs: Last Vital Signs Temp 98.4 F 07/07/21 16:56 Pulse 72 07/08/21 04:57 Resp 18 07/08/21 04:57 BP 105/68 07/07/21 20:01 Pulse Ox 99 07/08/21 04:57 BMI result Body Mass Index 33.5 Const: General: no acute distress HENMT: Other: Unremarkable Neck: Neck: Yes normal visual inspection Chest: Chest palpation & inspection: normal inspection of the chest Resp: Auscultation: no crackles and no wheezes Cardio: Palpation: normal PMI Heart sounds: S1 normal heart sound present, S2 normal heart sound present, no gallops, no murmurs and no rubs GI: Palpation (GI): Soft to palpation Back/Spine/Pelvis: Other: unremarkable Skin: Lesions: other Neuro: Cranial nerves: Yes Other cranial nerve findings present Extrem: General: Yes other Psych: Mental Status: other Objective Labs and Meds Result diagrams: 07/07/21 16:24 07/08/21 07:57 Lab results: Laboratory Results - last 24 hr 07/07/21 07/07/21 07/07/21 16:24 16:24 16:24 WBC 11.8 H RBC 5.61 Hgb 15.6 Hct 50.4 MCV 89.8 MCH 27.8 MCHC 31.0 RDW 13.6 Plt Count 282 MPV 10.2 Immature Gran % (Auto) 0.3 Neut % (Auto) 64.1 Lymph % (Auto) 27.3 [place] % (Auto) 6.8 Eos % (Auto) 1.0 Baso % (Auto) 0.5 Lymph # (Auto) 3.2 [place] # (Auto) 0.8 Eos # (Auto) 0.1 Baso # (Auto) 0.1 Abs Immat Gran (auto) 0.04 H Absolute Neuts (auto) 7.6 Absolute Nucleated RBC 0.000 Nucleated RBC % (auto) 0.0 Sodium 140 Potassium 5.5 H D Chloride 102 Carbon Dioxide 31 H Anion Gap 13 BUN 18 H Creatinine 1.38 Estim Creat Clear Calc 73.2 Estimated GFR 53 POC Glucose Random Glucose 187 H Estimat Average Glucose Hemoglobin A1c % Calcium 9.8 D Total Bilirubin 0.5 AST 14 ALT 22 Alkaline Phosphatase 109 Troponin I High Sens 71.5 H B-Natriuretic Peptide Total Protein 6.9 Albumin 3.8 TSH COVID-19 ([facility]) COVID-19 Clin Com 07/07/21 07/07/21 07/07/21 16:24 16:24 16:24 WBC RBC Hgb Hct MCV MCH MCHC RDW Plt Count MPV Immature Gran % (Auto) Neut % (Auto) Lymph % (Auto) [place] % (Auto) Eos % (Auto) Baso % (Auto) Lymph # (Auto) [place] # (Auto) Eos # (Auto) Baso # (Auto) Abs Immat Gran (auto) Absolute Neuts (auto) Absolute Nucleated RBC Nucleated RBC % (auto) Sodium Potassium Chloride Carbon Dioxide Anion Gap BUN Creatinine Estim Creat Clear Calc Estimated GFR POC Glucose Random Glucose Estimat Average Glucose 226 Hemoglobin A1c % 9.5 Calcium Total Bilirubin AST ALT Alkaline Phosphatase Troponin I High Sens B-Natriuretic Peptide 967 H Total Protein Albumin TSH COVID-19 ([facility]) Positive A COVID-19 Clin Com See Note 07/08/21 07/08/21 07/08/21 07:57 07:57 09:04 WBC RBC Hgb Hct MCV MCH MCHC RDW Plt Count MPV Immature Gran % (Auto) Neut % (Auto) Lymph % (Auto) [place] % (Auto) Eos % (Auto) Baso % (Auto) Lymph # (Auto) [place] # (Auto) Eos # (Auto) Baso # (Auto) Abs Immat Gran (auto) Absolute Neuts (auto) Absolute Nucleated RBC Nucleated RBC % (auto) Sodium 133 L Potassium 6.4 H* Chloride 97 Carbon Dioxide 25 Anion Gap 17 BUN 27 H Creatinine 1.91 H Estim Creat Clear Calc 52.9 Estimated GFR 36 POC Glucose 469 H* Random Glucose 423 H* Estimat Average Glucose Hemoglobin A1c % Calcium 9.1 D Total Bilirubin AST ALT Alkaline Phosphatase Troponin I High Sens 41.2 H B-Natriuretic Peptide Total Protein Albumin TSH 0.01 L COVID-19 ([facility]) COVID-19 Clin Com 07/08/21 11:24 WBC RBC Hgb Hct MCV MCH MCHC RDW Plt Count MPV Immature Gran % (Auto) Neut % (Auto) Lymph % (Auto) [place] % (Auto) Eos % (Auto) Baso % (Auto) Lymph # (Auto) [place] # (Auto) Eos # (Auto) Baso # (Auto) Abs Immat Gran (auto) Absolute Neuts (auto) Absolute Nucleated RBC Nucleated RBC % (auto) Sodium Potassium Chloride Carbon Dioxide Anion Gap BUN Creatinine Estim Creat Clear Calc Estimated GFR POC Glucose 277 H Random Glucose Estimat Average Glucose Hemoglobin A1c % Calcium Total Bilirubin AST ALT Alkaline Phosphatase Troponin I High Sens B-Natriuretic Peptide Total Protein Albumin TSH COVID-19 ([facility]) COVID-19 Clin Com Imaging Radiologist's impression: Impressions Chest X-Ray 07/07/21 14:55 IMPRESSION: Stable examination since 06/23/2021 with redemonstration of indeterminate blunting of the right costophrenic angle and increased interstitial markings. Assessment and Plan (1) Atrial fibrillation with rapid ventricular response: Status: Acute (2) Acute on chronic systolic (congestive) heart failure: Status: Acute (3) Atherosclerotic cardiovascular disease: Status: Acute (4) Elevated troponin: Status: Acute (5) COVID-19: Status: Acute EKG from admission with atrial fibrillation at a rate of 133/Min; PVC versus aberrant conduction. Cannot exclude old septal infarct or lateral infarct. Today's EKG shows atrial fibrillation at a rate of 81/Min. Nonspecific QRS widening and cannot exclude old anterolateral infarct. On telemetry, 2 very brief episodes of likely ventricular tachycardia with a polymorphic appearance. Recent echocardiogram with LVEF 15-20% and moderately dilated left atrium. Otherwise labs are also abnormal with a potassium was 6.4, creatinine is 1.9. Blood sugars are quite high at more than 400. Cardiac BNP is 967. High sensitivity troponins are 71 and 41. Cardiac catheterization 2017 showed a patent RCA stent but otherwise unremarkable coronaries. Overall, active COVID infection, recurrent atrial fibrillation in spite of previous cardioversions as well as prior ablation and not tolerating Amiodarone due to thyroid dysfunction. Suspected ventricular tachycardia again the context of COVID infection, hyperkalemia and pre-existing cardiomyopathy. Overall, he is quite ill. At this time, recommend continuing the home beta-blockers as long as the blood pressure tolerates. If not probably lower dose. Do not believe troponin elevation is active ACS and most likely demand related. The potassium needs to be aggressively corrected to avoid any further ventricular arrhythmias. Also check and correct magnesium. Empiric diuretics. Concurrent management of COVID. Will follow up with you. Procedures Date of Service Date of Service: 07/08/21
--- NOTE | 2021-07-08 12:18 | MHC.CM.PN ---
pt in [facility] called and spoke with s/o with whom he lives she explains that pt lives with her and that they are working on her becoming his branch lead but as of now he has no services he has transportation home is not vaccinated plan is for pt to return home when [facility]cd shanda will transport him
[2021-07-08 12:36] LABS: Alanine Aminotransferase 23 U/L (0-40); Albumin Level 3.5 g/dL (3.5-5.0); Alkaline Phosphatase 107 U/L (39-117); Aspartate Amino Transferase 17 U/L (5-37); Bilirubin Direct 0.3 mg/dL (0.0-0.5); Bilirubin Total 0.6 mg/dL (0.0-1.0); Magnesium 2.7 mg/dL (1.6-2.6); Total Protein 6.3 g/dL (6.5-8.0)
[2021-07-08] MEDS: Calcium Gluconate/NaCl,Iso-Osm 1 GM/50 ML PLAST..BAG IV (12:54)
[2021-07-08 13:01] LABS: Anion Gap 15 (12-20); Blood Urea Nitrogen 31 mg/dL (9-16); Calcium 9.4 mg/dL (8.4-10.2); Carbon Dioxide 26 mmol/L (22-29); Chloride 99 mmol/L (96-108); Estimated Glomerular Filt Rate 41; Glucose Random 151 mg/dL (60-115); Potassium 5.1 mmol/L (3.3-5.1); Sodium 135 mmol/L (135-145)
[2021-07-08 13:19] VITALS: BP 94/69; PULSE 82; RESP 16; TEMP 36.3; O2SAT 97
[2021-07-08 16:06] VITALS: BP 109/75; PULSE 91; RESP 18; TEMP 36.6; O2SAT 96
[2021-07-08 16:08] LABS: Glucose, Whole Blood 100 mg/dL (60-115)
--- NOTE | 2021-07-08 19:02 | HO.PM.IMPN ---
Subjective Subjective Date of Service: 07/09/21 Interval History: declan , chf , afib,2 very brief episodes of likely ventricular tachycardia with a polymorphic appearance Review of Systems patient says shortness of breath and heart racing seems to be improving. Denies any chest pain or abdominal pain or cough or phlegm Physical Exam Vital Signs: Vital Signs: Last Vital Signs Temp 97.9 F 07/08/21 16:06 Pulse 91 07/08/21 16:06 Resp 18 07/08/21 16:06 BP 109/75 07/08/21 16:06 Pulse Ox 96 07/08/21 16:06 BMI result Body Mass Index 33.5 Physical exam: Appearance: Alert.? Oriented X3.? not in distress.? cvs: rrr, [id number] , no murmur res: clear to auscultation ,no rhonchii or wheezing abd: no rebound or guarding ,nt, bs present. ext pulses present , no cyanosis , Leg swelling improving. neuro: axo3 , nonfocal. Objective Data Active Medications Acetaminophen (Acetaminophen 325 Mg Tablet) 650 mg PO Q6H PRN PRN Reason: Pain, Mild (Pain Scale 1-3) Albuterol Sulfate (Albuterol Sulfate (0.083%) 2.5 Mg/3 Ml Vial.Neb) 2.5 mg INHALE QID PRN PRN Reason: shortness of breath or wheezing Albuterol Sulfate (Albuterol Sulfate 90 Mcg 8 Gm Inhaler) 2 puff INHALE Q6H PRN PRN Reason: wheezing Apixaban (Apixaban 5 Mg Tablet) 5 mg PO BID [facility] Last Admin: 07/08/21 09:30 Dose: 5 mg Documented by: EBEN Atorvastatin Calcium (Atorvastatin Calcium 80 Mg Tablet) 80 mg PO BEDTIME [facility] Dextrose (Dextrose 50 % 25 Gm/50 Ml Vial) 25 gm IVPUSH Q15M PRN; Protocol PRN Reason: per Hypoglycemia Standing Ord. Docusate Sodium (Docusate Sodium 100 Mg Capsule) 100 mg PO DAILY PRN PRN Reason: Constipation Furosemide (Furosemide 40 Mg/4 Ml Vial) 40 mg IVPUSH Q12H [facility]; Protocol Last Admin: 07/08/21 09:31 Dose: 40 mg Documented by: EBEN Gabapentin (Gabapentin 300 Mg Capsule) 300 mg PO TID [facility] Last Admin: 07/08/21 13:16 Dose: 300 mg Documented by: EBEN Glucose (Glucose Gel 15 Gm Gel..Gram.) 15 gm PO Q15M PRN; Protocol PRN Reason: per Hypoglycemia Standing Ord. Diltiazem HCl 125 mg/ Sodium (Chloride) 125 mls @ 0 mls/hr IVCONT .Q0M [facility]; Protocol Last Titration: 07/08/21 02:35 Dose: 0 mg/hr, 0 mls/hr Documented by: KARON Insulin Glargine (Insulin Glargine,Hum.Rec.Anlog 100 Unit/Ml 10 Ml Vial) 30 unit SUBCUT DAILY [facility] Last Admin: 07/08/21 09:45 Dose: 30 unit Documented by: EBEN Insulin Human Lispro (Insulin Lispro 100 Unit/Ml 3 Ml Vial) 5 unit SUBCUT TIDWM [facility] Last Admin: 07/08/21 17:28 Dose: Not Given Documented by: EBEN Non-Admin Reason: No Insulin Coverage Insulin Human Lispro (Insulin Lispro 100 Unit/Ml 3 Ml Vial) 0 unit SUBCUT QIDACHS [facility]; Protocol Last Admin: 07/08/21 16:06 Dose: Not Given Documented by: EBEN Non-Admin Reason: No Insulin Coverage Lisinopril (Lisinopril 2.5 Mg Tablet) 2.5 mg PO BID [facility]; Protocol Last Admin: 07/08/21 09:38 Dose: 2.5 mg Documented by: EBEN Metoprolol Tartrate (Metoprolol Tartrate 12.5 Mg Halftab) 12.5 mg PO BID [facility]; Protocol Last Admin: 07/08/21 07:24 Dose: 12.5 mg Documented by: EBEN Non-Formulary Medication (Umeclidinium [Incruse Ellipta]) 1 puff PO DAILY [facility] Omeprazole (Omeprazole 20 Mg Capsule.) 20 mg PO DAILY@0630 [facility] Last Admin: 07/08/21 09:31 Dose: 20 mg Documented by: EBEN Ondansetron HCl (Ondansetron Hcl 4 Mg/2 Ml Vial) 4 mg IVPUSH Q8H PRN PRN Reason: Nausea and Vomiting Pharmacy Consult (Consult Rx Perform Med Rec) 1 each MISCELLANE ONCE PRN PRN Reason: Consult order Sertraline HCl (Sertraline Hcl 25 Mg Tablet) 25 mg PO DAILY [facility] Last Admin: 07/08/21 09:30 Dose: 25 mg Documented by: EBEN Sodium Chloride (0.9 % Sodium Chloride Flush 3 Ml Syringe) 3 ml IVFLUSH QSHIFT [facility] Last Admin: 07/08/21 14:12 Dose: Not Given Documented by: EBEN Non-Admin Reason: Med Not Available Sodium Zirconium Cyclosilicate (Sodium Zirconium Cyclosilicate 10 Gm Powd.Pack) 10 gm PO DAILY [facility] Last Admin: 07/08/21 12:54 Dose: 10 gm Documented by: EBEN Vitamin D (Cholecalciferol (Vitamin D3) 25 Mcg Tablet) 50 mcg PO DAILY [facility] Last Admin: 07/08/21 09:30 Dose: 50 mcg Documented by: EBEN Labs CBC & Chem 7: 07/09/21 04:05 07/09/21 04:05 Labs: Laboratory Results - last 24 hr 07/07/21 07/08/21 07/08/21 16:24 07:57 07:57 Anion Gap 17 Estim Creat Clear Calc 52.9 Estimated GFR 36 POC Glucose Random Glucose 423 H* Estimat Average Glucose 226 Hemoglobin A1c % 9.5 Calcium 9.1 D Magnesium 2.7 H Total Bilirubin 0.6 Direct Bilirubin 0.3 AST 17 ALT 23 Alkaline Phosphatase 107 Troponin I High Sens 41.2 H Total Protein 6.3 L Albumin 3.5 TSH 0.01 L 07/08/21 07/08/21 07/08/21 09:04 11:24 12:24 Anion Gap 15 Estim Creat Clear Calc 58.0 Estimated GFR 41 POC Glucose 469 H* 277 H Random Glucose 151 H D Estimat Average Glucose Hemoglobin A1c % Calcium 9.4 Magnesium Total Bilirubin Direct Bilirubin AST ALT Alkaline Phosphatase Troponin I High Sens Total Protein Albumin TSH 07/08/21 16:02 Anion Gap Estim Creat Clear Calc Estimated GFR POC Glucose 100 Random Glucose Estimat Average Glucose Hemoglobin A1c % Calcium Magnesium Total Bilirubin Direct Bilirubin AST ALT Alkaline Phosphatase Troponin I High Sens Total Protein Albumin TSH Assessment and Plan (1) DECLAN (acute kidney injury): Status: Acute (2) CHF exacerbation: Status: Acute Assessment and Plan: 56-year-old male with past medical history of AFib, CHF with reduced ejection fraction who presents to the hospital with AFib with RVR. 1. ? AFib with RVR -? most likely driven by CHF exacerbation as well as COVID-19 infection -? patient underwent cardioversion in May -? started on Cardizem drip -? started on p.o. metoprolol adjusted -? will obtain TSH -? continue apixaban -? cardiology consult-adjusted cardizem 2. CHF exacerbation -? elevated BNP, dyspnea, orthopnea and PND -? will start him on IV Lasix -? takes 20 mg Lasix b.i.d. at home and reports compliance -? last echocardiogram done on 06/24 shows an ejection fraction of 15-20% -? cardiology consulted, will add daily weight, low-sodium diet, and strict I&O 3.? DECLAN, hyperkalemia lokemia -? most likely secondary to CHF -? IV Lasix as above -? follow BMP 4.? hyperlipidemia -? continue statin 5.? diabetes: fs improving recieved lantus , also on sliding scale -continue to moniter fs closely -? will hold p.o. anti hyperglycemics -? start low-dose sliding scale insulin -? diabetic diet Quality Stroke Does the patient have a stroke diagnosis?: No VTE Prior VTE?: No VTE Risk Level:: Medical - moderate - high VTE Device Contraindication: Treatment Not Indicated VTE Drug Contraindication: N/A - Med Ordered
[2021-07-08 19:57] VITALS: BP 103/65; PULSE 84; RESP 19; TEMP 36.8; O2SAT 96
[2021-07-08 20:00] LABS: Glucose, Whole Blood 170 mg/dL (60-115)
[2021-07-08] MEDS: Atorvastatin Calcium 80 MG TABLET PO (20:49)
[2021-07-08] MEDS: Metoprolol Tartrate 25 MG TABLET PO (20:49)
[2021-07-08] MEDS: Furosemide 40 MG/4 ML VIAL 20 MG IVPUSH (20:50)
[2021-07-08 21:42] LABS: Glucose, Whole Blood 209 mg/dL (60-115)
[2021-07-08 22:35] LABS: Glucose, Whole Blood 188 mg/dL (60-115)
[2021-07-08 23:59] LABS: Glucose, Whole Blood 202 mg/dL (60-115)
[2021-07-09] VITALS (8 sets, daily range): BP systolic 85–129; BP diastolic 62–90; PULSE 50–90; RESP 15–21; TEMP 35.9–37.1; O2SAT 92–98
[2021-07-09] MEDS: Insulin Lispro 100 UNIT/ML 3 ML VIAL SUBCUT ×3 (00:05→17:23)
[2021-07-09 04:24] LABS: MANUAL DIFF FLAG NO
[2021-07-09 04:29] LABS: Basophils Absolute Auto 0.1 X10*3/uL (0.0-0.2); Basophils Percent Auto 0.3 % (0-2); Eosinophils Percent Auto 0.1 % (0-4); Hemoglobin 15.2 g/dl (14.0-18.0); Imm Gran Abs Auto 0.07 X10*3/uL (0.00-0.03); Imm Gran Pct Auto 0.4 % (0.0-0.4); Lymphocytes Absolute Auto 3.4 X10*3/uL (1.2-4.9); Lymphocytes Percent Auto 21.4 % (20-40); Mean Corpuscular Hemoglobin 27.3 pg (27.0-33.0); Mean Corpuscular Volume 88.1 fL (80.0-98.0); Mean Platelet Volume 10.5 fL (9.4-12.4); Monocytes Percent Auto 6.5 % (2-11); Neutrophils Absolute Auto 11.5 x10*3/uL (2.0-8.3); Neutrophils Percent Auto 71.3 % (45-73); Platelet Count 294 X10*3/uL (160-400); Red Blood Count 5.56 X10*6/uL (4.60-5.80); Red Cell Distribution Width 13.7 % (11.0-16.0); White Blood Count 16.1 X10*3/uL (4.8-10.8)
[2021-07-09 04:39] LABS: Anion Gap 11 (12-20); Blood Urea Nitrogen 42 mg/dL (9-16); Calcium 9.4 mg/dL (8.4-10.2); Carbon Dioxide 30 mmol/L (22-29); Chloride 97 mmol/L (96-108); Creatinine Clr Calc Pharmacy 64.3; Estimated Glomerular Filt Rate 46; Glucose Random 142 mg/dL (60-115); Potassium 4.9 mmol/L (3.3-5.1); Sodium 133 mmol/L (135-145)
[2021-07-09 07:26] LABS: Glucose, Whole Blood 140 mg/dL (60-115)
--- NOTE | 2021-07-09 08:31 | HO.PM.IMPN ---
Subjective Subjective Date of Service: 07/09/21 Interval History: declan ,chf Review of Systems sob similar as yesterday but able to answer most questions has dry cough denies any chest pain or heart racing today. No fevers overnight Physical Exam Vital Signs: Vital Signs: Last Vital Signs Temp 98.5 F 07/09/21 00:20 Pulse 84 07/09/21 06:40 Resp 17 07/09/21 06:40 BP 93/74 07/09/21 06:40 Pulse Ox 92 07/09/21 06:40 BMI result Body Mass Index 33.5 ? Appearance: Alert.? Oriented X3.? not in distress.? cvs: rrr, [id number] , no murmur res: clear to auscultation ,no rhonchii or wheezing abd: no rebound or guarding ,nt, bs present. ext pulses present , no cyanosis ,? Leg swelling still1+edema. neuro: axo3 , nonfocal Objective Data Active Medications Acetaminophen (Acetaminophen 325 Mg Tablet) 650 mg PO Q6H PRN PRN Reason: Pain, Mild (Pain Scale 1-3) Albuterol Sulfate (Albuterol Sulfate (0.083%) 2.5 Mg/3 Ml Vial.Neb) 2.5 mg INHALE QID PRN PRN Reason: shortness of breath or wheezing Albuterol Sulfate (Albuterol Sulfate 90 Mcg 8 Gm Inhaler) 2 puff INHALE Q6H PRN PRN Reason: wheezing Apixaban (Apixaban 5 Mg Tablet) 5 mg PO BID [facility] Last Admin: 07/08/21 20:49 Dose: 5 mg Documented by: VALENTE Atorvastatin Calcium (Atorvastatin Calcium 80 Mg Tablet) 80 mg PO BEDTIME [facility] Last Admin: 07/08/21 20:49 Dose: 80 mg Documented by: VALENTE Dextrose (Dextrose 50 % 25 Gm/50 Ml Vial) 25 gm IVPUSH Q15M PRN; Protocol PRN Reason: per Hypoglycemia Standing Ord. Dextrose (Dextrose 50 % 25 Gm/50 Ml Vial) 25 gm IVPUSH Q15M PRN PRN Reason: per Hypoglycemia Standing Ord. Docusate Sodium (Docusate Sodium 100 Mg Capsule) 100 mg PO DAILY PRN PRN Reason: Constipation Furosemide (Furosemide 40 Mg/4 Ml Vial) 20 mg IVPUSH Q12H [facility]; Protocol Last Admin: 07/08/21 20:50 Dose: 20 mg Documented by: VALENTE Gabapentin (Gabapentin 300 Mg Capsule) 300 mg PO TID [facility] Last Admin: 07/08/21 20:49 Dose: 300 mg Documented by: VALENTE Glucose (Glucose Gel 15 Gm Gel..Gram.) 15 gm PO Q15M PRN; Protocol PRN Reason: per Hypoglycemia Standing Ord. Diltiazem HCl 125 mg/ Sodium (Chloride) 125 mls @ 0 mls/hr IVCONT .Q0M [facility]; Protocol Last Titration: 07/09/21 07:12 Dose: 0 mg/hr, 0 mls/hr Documented by: ASCENCION Insulin Glargine (Insulin Glargine,Hum.Rec.Anlog 100 Unit/Ml 10 Ml Vial) 30 unit SUBCUT DAILY [facility] Last Admin: 07/08/21 09:45 Dose: 30 unit Documented by: EBEN Insulin Human Lispro (Insulin Lispro 100 Unit/Ml 3 Ml Vial) 5 unit SUBCUT TIDWM [facility] Last Admin: 07/08/21 17:28 Dose: Not Given Documented by: EBEN Non-Admin Reason: No Insulin Coverage Insulin Human Lispro (Insulin Lispro 100 Unit/Ml 3 Ml Vial) 0 unit SUBCUT QIDACHS [facility]; Protocol Last Admin: 07/09/21 00:05 Dose: 4 unit Documented by: VALENTE Lisinopril (Lisinopril 2.5 Mg Tablet) 2.5 mg PO BID [facility]; Protocol Last Admin: 07/08/21 09:38 Dose: 2.5 mg Documented by: EBEN Metoprolol Tartrate (Metoprolol Tartrate 25 Mg Tablet) 25 mg PO BID [facility]; Protocol Last Admin: 07/08/21 20:49 Dose: 25 mg Documented by: VALENTE Non-Formulary Medication (Umeclidinium [Incruse Ellipta]) 1 puff PO DAILY [facility] Omeprazole (Omeprazole 20 Mg Capsule.) 20 mg PO DAILY@0630 [facility] Last Admin: 07/08/21 09:31 Dose: 20 mg Documented by: EBEN Ondansetron HCl (Ondansetron Hcl 4 Mg/2 Ml Vial) 4 mg IVPUSH Q8H PRN PRN Reason: Nausea and Vomiting Pharmacy Consult (Consult Rx Perform Med Rec) 1 each MISCELLANE ONCE PRN PRN Reason: Consult order Sertraline HCl (Sertraline Hcl 25 Mg Tablet) 25 mg PO DAILY [facility] Last Admin: 07/08/21 09:30 Dose: 25 mg Documented by: EBEN Sodium Chloride (0.9 % Sodium Chloride Flush 3 Ml Syringe) 3 ml IVFLUSH QSHIFT [facility] Last Admin: 07/09/21 00:22 Dose: Not Given Documented by: N-PARRC Non-Admin Reason: Patient Asleep Sodium Zirconium Cyclosilicate (Sodium Zirconium Cyclosilicate 10 Gm Powd.Pack) 10 gm PO DAILY [facility] Last Admin: 07/08/21 12:54 Dose: 10 gm Documented by: EBEN Vitamin D (Cholecalciferol (Vitamin D3) 25 Mcg Tablet) 50 mcg PO DAILY [facility] Last Admin: 07/08/21 09:30 Dose: 50 mcg Documented by: EBEN Labs CBC & Chem 7: 07/09/21 04:05 07/09/21 04:05 Labs: Laboratory Results - last 24 hr 07/07/21 07/08/21 07/08/21 16:24 07:57 07:57 MCV MCH MCHC RDW Plt Count MPV Immature Gran % (Auto) Neut % (Auto) Lymph % (Auto) [place] % (Auto) Eos % (Auto) Baso % (Auto) Lymph # (Auto) [place] # (Auto) Eos # (Auto) Baso # (Auto) Abs Immat Gran (auto) Absolute Neuts (auto) Absolute Nucleated RBC Nucleated RBC % (auto) Anion Gap 17 Estim Creat Clear Calc 52.9 Estimated GFR 36 POC Glucose Random Glucose 423 H* Estimat Average Glucose 226 Hemoglobin A1c % 9.5 Calcium 9.1 D Magnesium 2.7 H Total Bilirubin 0.6 Direct Bilirubin 0.3 AST 17 ALT 23 Alkaline Phosphatase 107 Troponin I High Sens 41.2 H Total Protein 6.3 L Albumin 3.5 TSH 0.01 L 07/08/21 07/08/21 07/08/21 09:04 11:24 12:24 MCV MCH MCHC RDW Plt Count MPV Immature Gran % (Auto) Neut % (Auto) Lymph % (Auto) [place] % (Auto) Eos % (Auto) Baso % (Auto) Lymph # (Auto) [place] # (Auto) Eos # (Auto) Baso # (Auto) Abs Immat Gran (auto) Absolute Neuts (auto) Absolute Nucleated RBC Nucleated RBC % (auto) Anion Gap 15 Estim Creat Clear Calc 58.0 Estimated GFR 41 POC Glucose 469 H* 277 H Random Glucose 151 H D Estimat Average Glucose Hemoglobin A1c % Calcium 9.4 Magnesium Total Bilirubin Direct Bilirubin AST ALT Alkaline Phosphatase Troponin I High Sens Total Protein Albumin TSH 07/08/21 07/08/21 07/08/21 16:02 19:54 21:39 MCV MCH MCHC RDW Plt Count MPV Immature Gran % (Auto) Neut % (Auto) Lymph % (Auto) [place] % (Auto) Eos % (Auto) Baso % (Auto) Lymph # (Auto) [place] # (Auto) Eos # (Auto) Baso # (Auto) Abs Immat Gran (auto) Absolute Neuts (auto) Absolute Nucleated RBC Nucleated RBC % (auto) Anion Gap Estim Creat Clear Calc Estimated GFR POC Glucose 100 170 H 209 H Random Glucose Estimat Average Glucose Hemoglobin A1c % Calcium Magnesium Total Bilirubin Direct Bilirubin AST ALT Alkaline Phosphatase Troponin I High Sens Total Protein Albumin TSH 07/08/21 07/08/21 07/09/21 22:32 23:40 04:05 MCV 88.1 MCH 27.3 MCHC 31.0 RDW 13.7 Plt Count 294 MPV 10.5 Immature Gran % (Auto) 0.4 Neut % (Auto) 71.3 Lymph % (Auto) 21.4 [place]ard % (Auto) 6.5 Eos % (Auto) 0.1 Baso % (Auto) 0.3 Lymph # (Auto) 3.4 [place]ard # (Auto) 1.0 Eos # (Auto) 0.0 Baso # (Auto) 0.1 Abs Immat Gran (auto) 0.07 H Absolute Neuts (auto) 11.5 H Absolute Nucleated RBC 0.000 Nucleated RBC % (auto) 0.0 Anion Gap Estim Creat Clear Calc Estimated GFR POC Glucose 188 H 202 H Random Glucose Estimat Average Glucose Hemoglobin A1c % Calcium Magnesium Total Bilirubin Direct Bilirubin AST ALT Alkaline Phosphatase Troponin I High Sens Total Protein Albumin TSH 07/09/21 07/09/21 04:05 07:16 MCV MCH MCHC RDW Plt Count MPV Immature Gran % (Auto) Neut % (Auto) Lymph % (Auto) [place] % (Auto) Eos % (Auto) Baso % (Auto) Lymph # (Auto) [place] # (Auto) Eos # (Auto) Baso # (Auto) Abs Immat Gran (auto) Absolute Neuts (auto) Absolute Nucleated RBC Nucleated RBC % (auto) Anion Gap 11 L Estim Creat Clear Calc 64.3 Estimated GFR 46 POC Glucose 140 H Random Glucose 142 H Estimat Average Glucose Hemoglobin A1c % Calcium 9.4 Magnesium Total Bilirubin Direct Bilirubin AST ALT Alkaline Phosphatase Troponin I High Sens Total Protein Albumin TSH Assessment and Plan (1) Acute on chronic systolic (congestive) heart failure: Status: Acute (2) DECLAN (acute kidney injury): Status: Acute (3) CHF exacerbation: Status: Acute Assessment and Plan: 56-year-old male with past medical history of AFib, CHF with reduced ejection fraction who presents to the hospital with AFib with RVR. 1. ? AFib with RVR-? most likely driven by CHF exacerbation as well as COVID-19 infection -? patient underwent cardioversion in May -? started on Cardizem drip -? started on p.o. metoprolol adjusted TSH levels 0.01 , free t4 was normal in , last admission advised to follow up -? continue apixaban -? cardiology consult- off Cardizem switched to metoprolol p.o. b.i.d. 2. CHF exacerbation -? elevated BNP, dyspnea, orthopnea and PND -? will start him on IV Lasix -? takes 20 mg Lasix b.i.d. at home and reports compliance -? last echocardiogram done on 06/24 shows an ejection fraction of 15-20% -? cardiology consulted, will add daily weight, low-sodium diet, and strict I&O 3.? DECLAN, hyperkalemia lokemia -? most likely secondary to CHF -? IV Lasix as above -? follow BMP 4.? hyperlipidemia -? continue statin 5.? diabetes: fs improving recieved lantus , also on sliding scale -continue to moniter fs closely -? will hold p.o. anti hyperglycemics -? start low-dose sliding scale insulin -? diabetic diet Quality Stroke Does the patient have a stroke diagnosis?: No VTE Prior VTE?: No VTE Risk Level:: Medical - moderate - high VTE Device Contraindication: Treatment Not Indicated VTE Drug Contraindication: N/A - Med Ordered
[2021-07-09] MEDS: Furosemide 40 MG/4 ML VIAL 20 MG IVPUSH ×2 (08:42→20:23)
[2021-07-09] MEDS: Apixaban 5 MG TABLET PO ×2 (08:42→20:24)
[2021-07-09] MEDS: Metoprolol Tartrate 25 MG TABLET PO ×2 (08:42→20:24)
[2021-07-09] MEDS: Omeprazole 20 MG CAPSULE.DR PO (08:43)
[2021-07-09] MEDS: Insulin Glargine,Hum.rec.anlog 100 UNIT/ML 10 ML VIAL 30 UNIT SUBCUT (08:43)
[2021-07-09] MEDS: Cholecalciferol (Vitamin D3) 25 MCG TABLET 50 MCG PO (08:43)
[2021-07-09] MEDS: 0.9 % Sodium Chloride Flush 3 ML SYRINGE IVFLUSH ×3 (08:43→20:23)
[2021-07-09] MEDS: Gabapentin 300 MG CAPSULE PO ×3 (08:43→20:24)
[2021-07-09] MEDS: Sertraline HCL 25 MG TABLET PO (08:43)
[2021-07-09] MEDS: Sodium Zirconium Cyclosilicate 10 GM POWD.PACK PO (08:49)
--- NOTE | 2021-07-09 09:03 | PC.NURSE ---
Pt A&Ox3, No complaints of pain at this time. NSR in the 90's on the monitor. Dry cough noted, medicated as per MAR orders. BP 111/77, call sal within reach, urinal emptied for 700cc clear yellow urine. Will continue to monitor.
--- NOTE | 2021-07-09 09:38 | HE.PHANOTE ---
Patient reports he does not always take his Incruse Inhaler at home. He said that he also has no one that would be able to bring it in for him. Spoke with Dr. Block that the best alternative we have on formulary is [employer]. Cece Schwartz, LauraD
--- NOTE | 2021-07-09 10:26 | P.PNCA_ITS ---
Subjective Subjective Date of Service: 07/09/21 Interval history: He still feels short of breath. No palpitations/angina. Review of Systems Review of Systems Yes all other systems are reviewed and are negative Cardiovascular: Reports as per HPI, Reports no additional cardiovascular complaints, Denies acrocyanosis, Denies cool extremities, Denies painful fingertips, Denies chest pain, Denies chest pain at rest, Denies diaphoresis, Denies syncope, Denies irregular heart rhythm, Denies claudication, Denies leg edema, Denies lightheadedness, Denies palpitations and Denies dyspnea Respiratory: Denies dyspnea Denies syncope Endocrine: Denies palpitations Physical Exam Vital Signs: Last Vital Signs Temp 97.8 F 07/09/21 08:55 Pulse 84 07/09/21 08:55 Resp 21 H 07/09/21 08:55 BP 111/77 07/09/21 08:55 Pulse Ox 96 07/09/21 08:55 BMI result Body Mass Index 33.5 Const General: no acute distress HENMT Other: Unremarkable Neck Neck: Yes normal visual inspection Chest Chest palpation & inspection: normal inspection of the chest Resp Auscultation: no crackles and no wheezes Cardio Palpation: normal PMI Heart sounds: S1 normal heart sound present, S2 normal heart sound present, no gallops, no murmurs and no rubs GI Palpation (GI): Soft to palpation Back/Spine/Pelvis Other: unremarkable Skin Lesions: other Neuro Cranial nerves: Yes Other cranial nerve findings present Extrem General: Yes other Psych Mental Status: other Objective Labs and Meds Result diagrams: 07/09/21 04:05 07/09/21 04:05 Lab results: Laboratory Results - last 24 hr 07/07/21 07/08/21 07/08/21 16:24 07:57 11:24 WBC RBC Hgb Hct MCV MCH MCHC RDW Plt Count MPV Immature Gran % (Auto) Neut % (Auto) Lymph % (Auto) [place] % (Auto) Eos % (Auto) Baso % (Auto) Lymph # (Auto) [place] # (Auto) Eos # (Auto) Baso # (Auto) Abs Immat Gran (auto) Absolute Neuts (auto) Absolute Nucleated RBC Nucleated RBC % (auto) Sodium Potassium Chloride Carbon Dioxide Anion Gap BUN Creatinine Estim Creat Clear Calc Estimated GFR POC Glucose 277 H Random Glucose Estimat Average Glucose 226 Hemoglobin A1c % 9.5 Calcium Magnesium 2.7 H Total Bilirubin 0.6 Direct Bilirubin 0.3 AST 17 ALT 23 Alkaline Phosphatase 107 Total Protein 6.3 L Albumin 3.5 07/08/21 07/08/21 07/08/21 12:24 16:02 19:54 WBC RBC Hgb Hct MCV MCH MCHC RDW Plt Count MPV Immature Gran % (Auto) Neut % (Auto) Lymph % (Auto) [place] % (Auto) Eos % (Auto) Baso % (Auto) Lymph # (Auto) [place] # (Auto) Eos # (Auto) Baso # (Auto) Abs Immat Gran (auto) Absolute Neuts (auto) Absolute Nucleated RBC Nucleated RBC % (auto) Sodium 135 Potassium 5.1 D Chloride 99 Carbon Dioxide 26 Anion Gap 15 BUN 31 H Creatinine 1.74 H Estim Creat Clear Calc 58.0 Estimated GFR 41 POC Glucose 100 170 H Random Glucose 151 H D Estimat Average Glucose Hemoglobin A1c % Calcium 9.4 Magnesium Total Bilirubin Direct Bilirubin AST ALT Alkaline Phosphatase Total Protein Albumin 07/08/21 07/08/21 07/08/21 21:39 22:32 23:40 WBC RBC Hgb Hct MCV MCH MCHC RDW Plt Count MPV Immature Gran % (Auto) Neut % (Auto) Lymph % (Auto) [place] % (Auto) Eos % (Auto) Baso % (Auto) Lymph # (Auto) [place] # (Auto) Eos # (Auto) Baso # (Auto) Abs Immat Gran (auto) Absolute Neuts (auto) Absolute Nucleated RBC Nucleated RBC % (auto) Sodium Potassium Chloride Carbon Dioxide Anion Gap BUN Creatinine Estim Creat Clear Calc Estimated GFR POC Glucose 209 H 188 H 202 H Random Glucose Estimat Average Glucose Hemoglobin A1c % Calcium Magnesium Total Bilirubin Direct Bilirubin AST ALT Alkaline Phosphatase Total Protein Albumin 07/09/21 07/09/21 07/09/21 04:05 04:05 07:16 WBC 16.1 H RBC 5.56 Hgb 15.2 Hct 49.0 MCV 88.1 MCH 27.3 MCHC 31.0 RDW 13.7 Plt Count 294 MPV 10.5 Immature Gran % (Auto) 0.4 Neut % (Auto) 71.3 Lymph % (Auto) 21.4 [place] % (Auto) 6.5 Eos % (Auto) 0.1 Baso % (Auto) 0.3 Lymph # (Auto) 3.4 [place] # (Auto) 1.0 Eos # (Auto) 0.0 Baso # (Auto) 0.1 Abs Immat Gran (auto) 0.07 H Absolute Neuts (auto) 11.5 H Absolute Nucleated RBC 0.000 Nucleated RBC % (auto) 0.0 Sodium 133 L Potassium 4.9 Chloride 97 Carbon Dioxide 30 H Anion Gap 11 L BUN 42 H Creatinine 1.57 H Estim Creat Clear Calc 64.3 Estimated GFR 46 POC Glucose 140 H Random Glucose 142 H Estimat Average Glucose Hemoglobin A1c % Calcium 9.4 Magnesium Total Bilirubin Direct Bilirubin AST ALT Alkaline Phosphatase Total Protein Albumin Progress Note: A&P Assessment and plan (1) Atrial fibrillation with rapid ventricular response: Status: Acute (2) Acute on chronic systolic (congestive) heart failure: Status: Acute (3) Atherosclerotic cardiovascular disease: Status: Acute (4) Elevated troponin: Status: Acute (5) COVID-19: Status: Acute Assessment and Plan: EKG from admission with atrial fibrillation at a rate of 133/Min; PVC versus aberrant conduction. Cannot exclude old septal infarct or lateral infarct. Repeat EKG shows atrial fibrillation at a rate of 81/Min. Nonspecific QRS wi dening and cannot exclude old anterolateral infarct. On telemetry yesterday, 2 very brief episodes of likely ventricular tachycardia with a polymorphic appearance. Since then, no recurrences. In AFib, rate about 90s. Recent echocardiogram with LVEF 15-20% and moderately dilated left atrium. Otherwise labs were also abnormal with a potassium was 6.4, creatinine is 1.9. Blood sugars quite high at more than 400- these are now improved. Cardiac BNP is 967. High sensitivity troponins are 71 and 41. Cardiac catheterization 2017 showed a patent RCA stent but otherwise unremarkable coronaries. Overall, active COVID infection, recurrent atrial fibrillation in spite of previous cardioversions as well as prior ablation and not tolerating Amiodarone due to thyroid dysfunction. Suspected NSVT again in the context of COVID infection, hyperkalemia and pre-existing cardiomyopathy. Overall, he is quite ill. At this time, recommend continuing the home beta-blockers as long as the blood pressure tolerates. If not probably lower dose. Do not believe troponin elevation is active ACS and most likely demand related. The potassium needs to be aggressively corrected to avoid any further ventricular arrhythmias. Magnesium >2. Empiric diuretics. Concurrent management of COVID. Guarded pr ognosis. Discussed with . Fall Risk Details Current Medications: Current Medications Acetaminophen (Acetaminophen 325 Mg Tablet) 650 mg PO Q6H PRN PRN Reason: Pain, Mild (Pain Scale 1-3) Albuterol Sulfate (Albuterol Sulfate (0.083%) 2.5 Mg/3 Ml Vial.Neb) 2.5 mg INHALE QID PRN PRN Reason: shortness of breath or wheezing Albuterol Sulfate (Albuterol Sulfate 90 Mcg 8 Gm Inhaler) 2 puff INHALE Q6H PRN PRN Reason: wheezing Apixaban (Apixaban 5 Mg Tablet) 5 mg PO BID [facility] Last Admin: 07/09/21 08:42 Dose: 5 mg Documented by: Atorvastatin Calcium (Atorvastatin Calcium 80 Mg Tablet) 80 mg PO BEDTIME [facility] Last Admin: 07/08/21 20:49 Dose: 80 mg Documented by: Dextrose (Dextrose 50 % 25 Gm/50 Ml Vial) 25 gm IVPUSH Q15M PRN; Protocol PRN Reason: per Hypoglycemia Standing Ord. Dextrose (Dextrose 50 % 25 Gm/50 Ml Vial) 25 gm IVPUSH Q15M PRN PRN Reason: per Hypoglycemia Standing Ord. Docusate Sodium (Docusate Sodium 100 Mg Capsule) 100 mg PO DAILY PRN PRN Reason: Constipation Furosemide (Furosemide 40 Mg/4 Ml Vial) 20 mg IVPUSH Q12H [facility]; Protocol Last Admin: 07/09/21 08:42 Dose: 20 mg Documented by: Gabapentin (Gabapentin 300 Mg Capsule) 300 mg PO TID [facility] Last Admin: 07/09/21 08:43 Dose: 300 mg Documented by: Glucose (Glucose Gel 15 Gm Gel..Gram.) 15 gm PO Q15M PRN; Protocol PRN Reason: per Hypoglycemia Standing Ord. Diltiazem HCl 125 mg/ Sodium (Chloride) 125 mls @ 0 mls/hr IVCONT .Q0M [facility]; Protocol Last Titration: 07/09/21 07:12 Dose: Infused Documented by: Insulin Glargine (Insulin Glargine,Hum.Rec.Anlog 100 Unit/Ml 10 Ml Vial) 30 unit SUBCUT DAILY [facility] Last Admin: 07/09/21 08:43 Dose: 30 unit Documented by: Insulin Human Lispro (Insulin Lispro 100 Unit/Ml 3 Ml Vial) 5 unit SUBCUT TIDWM [facility] Last Admin: 07/09/21 08:39 Dose: Not Given Documented by: Insulin Human Lispro (Insulin Lispro 100 Unit/Ml 3 Ml Vial) 0 unit SUBCUT QIDACHS [facility]; Protocol Last Admin: 07/09/21 08:40 Dose: Not Given Documented by: Lisinopril (Lisinopril 2.5 Mg Tablet) 2.5 mg PO BID [facility]; Protocol Last Admin: 07/08/21 09:38 Dose: 2.5 mg Documented by: Metoprolol Tartrate (Metoprolol Tartrate 25 Mg Tablet) 25 mg PO BID [facility]; Protocol Last Admin: 07/09/21 08:42 Dose: 25 mg Documented by: Omeprazole (Omeprazole 20 Mg Capsule.Dr) 20 mg PO DAILY@0630 [facility] Last Admin: 07/09/21 08:43 Dose: 20 mg Documented by: Ondansetron HCl (Ondansetron Hcl 4 Mg/2 Ml Vial) 4 mg IVPUSH Q8H PRN PRN Reason: Nausea and Vomiting Pharmacy Consult (Consult Rx Perform Med Rec) 1 each MISCELLANE ONCE PRN PRN Reason: Consult order Sertraline HCl (Sertraline Hcl 25 Mg Tablet) 25 mg PO DAILY [facility] Last Admin: 07/09/21 08:43 Dose: 25 mg Documented by: Sodium Chloride (0.9 % Sodium Chloride Flush 3 Ml Syringe) 3 ml IVFLUSH QSHIFT [facility] Last Admin: 07/09/21 08:43 Dose: 3 ml Documented by: Sodium Zirconium Cyclosilicate (Sodium Zirconium Cyclosilicate 10 Gm Powd.Pack) 10 gm PO DAILY [facility] Last Admin: 07/09/21 08:49 Dose: 10 gm Documented by: Tiotropium [place] (Tiotropium [place] 18 Mcg Cap.W.Dev) 1 puff INHALE RDAILY [facility] Vitamin D (Cholecalciferol (Vitamin D3) 25 Mcg Tablet) 50 mcg PO DAILY [facility] Last Admin: 07/09/21 08:43 Dose: 50 mcg Documented by: Time Spent With Patient Time: Total time spent is greater than 50% in coordination of care (as documented) at patient's floor/unit and/or counseling patient: Time with patient: less than 15 minutes Progress Note: Quality Stroke Does the patient have a stroke diagnosis?: No Procedures Date of Service Date of Service: 07/09/21
--- NOTE | 2021-07-09 11:13 | P.CONNP_ITS ---
History of Present Illness Reason for Consult Consult date: 07/09/21 Chief Complaint Chief complaint: CHF, COVID History of Present Illness Narrative: ?48-year-old male with a history of paroxysmal AFib, CHF, COPD, diabetes, sleep apnea? presents to the hospital with complaints of shortness of breath.? Patient reports that he has been feeling short of breath for the past 1 week, went to his PCP with the same complaint, an EKG was done in the office and he was found in AFib with RVR and asked to come to the hospital.? Patient? was in the hospital at the end of May and underwent cardioversion for his AFib and is now back in AFib with RVR.? He reports minimal cough, no sputum production, no fever or chills, he has orthopnea, PND, no lower extremity edema.? He denies any chest pain, no headache or change in vision, no abdominal pain, no nausea or vomiting, no diarrhea constipation no urinary symptoms.? Now with DECLAN Review of Systems Review of Systems Yes all other systems are reviewed and are negative Cardiovascular: Reports as per HPI, Denies chest pain, Denies chest pain at rest, Denies syncope, Denies irregular heart rhythm, Denies lightheadedness, Denies palpitations and Denies dyspnea Respiratory: Denies dyspnea Denies syncope Endocrine: Denies palpitations PMFSH Past Medical History Medical History Afib CAD (coronary artery disease) Cardiomyopathy CHF (congestive heart failure) COPD (chronic obstructive pulmonary disease) COPD (chronic obstructive pulmonary disease) COVID-19 Diabetes Diabetes mellitus type 2, uncontrolled Heart failure with reduced ejection fraction History of cardioversion KIMANI (obstructive sleep apnea) Paroxysmal atrial fibrillation Sleep apnea Sleep apnea Smoker Family History Family History Father Atherosclerosis Mother Cerebral aneurysm Maternal Grandmother Unknown family medical history Mother Cerebral hemorrhage Father Coronary artery disease Surgical History Surgical History H/O heart artery stent History of cardiac radiofrequency ablation History of esophagogastroduodenoscopy History of fracture of leg History of inguinal hernia History of umbilical hernia Hx of colonoscopy Social History Social History Household Members: Significant Other Housing: House Do you presently have visiting nurse or other home services: No Alcohol intake: never Patient Tobacco Use Status: Current everyday Tobacco user Tobacco use type: Cigarette Cigarettes Per Day: 10 Years Smoked: 46 e-Cigarette/Vaping Use: Former Use Second Hand Smoke Exposure: Yes service: No Current occupational status: unemployed and disabled Current occupation: rt handed Meds Allergies Allergy/AdvReac Type Severity Reaction Status Date / Time No Known Allergies Allergy Verified 07/07/21 09:24 [No Known Allergies*] Active Medications: Current Medications Acetaminophen (Acetaminophen 325 Mg Tablet) 650 mg PO Q6H PRN PRN Reason: Pain, Mild (Pain Scale 1-3) Albuterol Sulfate (Albuterol Sulfate (0.083%) 2.5 Mg/3 Ml Vial.Neb) 2.5 mg INHALE QID PRN PRN Reason: shortness of breath or wheezing Albuterol Sulfate (Albuterol Sulfate 90 Mcg 8 Gm Inhaler) 2 puff INHALE Q6H PRN PRN Reason: wheezing Apixaban (Apixaban 5 Mg Tablet) 5 mg PO BID [facility] Last Admin: 07/09/21 08:42 Dose: 5 mg Documented by: Atorvastatin Calcium (Atorvastatin Calcium 80 Mg Tablet) 80 mg PO BEDTIME [facility] Last Admin: 07/08/21 20:49 Dose: 80 mg Documented by: Dextrose (Dextrose 50 % 25 Gm/50 Ml Vial) 25 gm IVPUSH Q15M PRN; Protocol PRN Reason: per Hypoglycemia Standing Ord. Dextrose (Dextrose 50 % 25 Gm/50 Ml Vial) 25 gm IVPUSH Q15M PRN PRN Reason: per Hypoglycemia Standing Ord. Docusate Sodium (Docusate Sodium 100 Mg Capsule) 100 mg PO DAILY PRN PRN Reason: Constipation Furosemide (Furosemide 40 Mg/4 Ml Vial) 20 mg IVPUSH Q12H [facility]; Protocol Last Admin: 07/09/21 08:42 Dose: 20 mg Documented by: Gabapentin (Gabapentin 300 Mg Capsule) 300 mg PO TID [facility] Last Admin: 07/09/21 08:43 Dose: 300 mg Documented by: Glucose (Glucose Gel 15 Gm Gel..Gram.) 15 gm PO Q15M PRN; Protocol PRN Reason: per Hypoglycemia Standing Ord. Diltiazem HCl 125 mg/ Sodium (Chloride) 125 mls @ 0 mls/hr IVCONT .Q0M [facility]; Protocol Last Titration: 07/09/21 07:12 Dose: Infused Documented by: Insulin Glargine (Insulin Glargine,Hum.Rec.Anlog 100 Unit/Ml 10 Ml Vial) 30 unit SUBCUT DAILY [facility] Last Admin: 07/09/21 08:43 Dose: 30 unit Documented by: Insulin Human Lispro (Insulin Lispro 100 Unit/Ml 3 Ml Vial) 5 unit SUBCUT TIDWM [facility] Last Admin: 07/09/21 08:39 Dose: Not Given Documented by: Insulin Human Lispro (Insulin Lispro 100 Unit/Ml 3 Ml Vial) 0 unit SUBCUT QIDACHS [facility]; Protocol Last Admin: 07/09/21 08:40 Dose: Not Given Documented by: Lisinopril (Lisinopril 2.5 Mg Tablet) 2.5 mg PO BID [facility]; Protocol Last Admin: 07/08/21 09:38 Dose: 2.5 mg Documented by: Metoprolol Tartrate (Metoprolol Tartrate 25 Mg Tablet) 25 mg PO BID [facility]; Protocol Last Admin: 07/09/21 08:42 Dose: 25 mg Documented by: Omeprazole (Omeprazole 20 Mg Capsule.Dr) 20 mg PO DAILY@0630 [facility] Last Admin: 07/09/21 08:43 Dose: 20 mg Documented by: Ondansetron HCl (Ondansetron Hcl 4 Mg/2 Ml Vial) 4 mg IVPUSH Q8H PRN PRN Reason: Nausea and Vomiting Pharmacy Consult (Consult Rx Perform Med Rec) 1 each MISCELLANE ONCE PRN PRN Reason: Consult order Sertraline HCl (Sertraline Hcl 25 Mg Tablet) 25 mg PO DAILY [facility] Last Admin: 07/09/21 08:43 Dose: 25 mg Documented by: Sodium Chloride (0.9 % Sodium Chloride Flush 3 Ml Syringe) 3 ml IVFLUSH QSHIFT [facility] Last Admin: 07/09/21 08:43 Dose: 3 ml Documented by: Sodium Zirconium Cyclosilicate (Sodium Zirconium Cyclosilicate 10 Gm Powd.Pack) 10 gm PO DAILY [facility] Last Admin: 07/09/21 08:49 Dose: 10 gm Documented by: Tiotropium [place] (Tiotropium [place] 18 Mcg Cap.W.Dev) 1 puff INHALE RDAILY [facility] Last Admin: 07/09/21 11:11 Dose: 1 puff Documented by: Vitamin D (Cholecalciferol (Vitamin D3) 25 Mcg Tablet) 50 mcg PO DAILY [facility] Last Admin: 07/09/21 08:43 Dose: 50 mcg Documented by: Home Medications Medication Instructions Recorded Confirmed Last Taken Type umeclidinium 62.5 mcg/actuation 1 puff PO DAILY 10/30/20 07/07/21 07/07/21 Hi story blister powder for inhalation (Incruse Ellipta) albuterol sulfate 90 mcg/actuation 2 puff PO Q6H PRN 06/23/21 07/07/21 Unknown History aerosol inhaler atorvastatin 40 mg tablet 40 tab PO BEDTIME 06/23/21 07/07/21 07/06/21 History dulaglutide 0.75 mg/0.5 mL 0.75 mg SUBCUT TH 06/23/21 07/07/21 07/03/21 History subcutaneous pen injector (Trulicity) empagliflozin 25 mg tablet 25 mg PO DAILY 06/23/21 07/07/21 07/07/21 History (Jardiance) insulin glargine 100 unit/mL (3 40 unit SUBCUT BEDTIME 06/23/21 07/07/21 07/06/21 History mL) subcutaneous pen (Lantus Solostar U-100 Insulin) lisinopril 5 mg tablet 2.5 mg PO BID 06/23/21 07/07/21 07/07/21 History omeprazole 20 mg capsule,delayed 20 mg PO DAILY 06/23/21 07/07/21 07/07/21 Histo ry release sertraline 25 mg tablet 25 mg PO DAILY 06/23/21 07/07/21 07/07/21 History gabapentin 300 mg capsule 300 mg PO TID 06/24/21 07/07/21 07/07/21 History insulin lispro 100 unit/mL 5 unit SUBCUT TIDWM 07/07/21 07/07/21 Unknown History subcutaneous solution (Humalog U-100 Insulin) Physical Exam Vital Signs: Last Vital Signs Temp 97.8 F 07/09/21 08:55 Pulse 84 07/09/21 08:55 Resp 21 H 07/09/21 08:55 BP 111/77 07/09/21 08:55 Pulse Ox 96 07/09/21 08:55 BMI result Body Mass Index 33.5 Const General: cooperative and no acute distress Orientation/consciousness: patient oriented x3 [facility] Other: Unremarkable Head: Yes normal to inspection Eyes General: appearance normal, both eyes and all related structures Pupils: Equal, round and reactive pupils present Neck Neck: Yes normal visual inspection Chest Chest palpation & inspection: normal inspection of the chest Resp Other: crackles bilaterally Effort & Inspection: normal respiratory effort Auscultation: clear to auscultation bilaterally and no wheezes Cardio Jugular venous distension: no JVD Palpation: normal PMI Rate: regular rate Rhythm: regular rhythm and abnormal rhythm Heart sounds: S1 normal heart sound present, S2 normal heart sound present, no gallops, no murmurs and no rubs GI Inspection: Yes normal to inspection Palpation (GI): Soft to palpation Auscultation: normal bowel sounds Back/Spine/Pelvis Other: unremarkable Skin General skin exam: no rashes or lesions noted, elasticity normal and turgor normal Lesions: other Rashes: no rashes Neuro General: patient oriented x3 Cranial nerves: Yes Equal, round and reactive pupils present Cognition (Neuro): normal cognition Extrem General: Yes normal to inspection, Yes no pedal edema and Yes other Psych Mental Status: other Results Lab Results Result Diagrams: 07/09/21 04:05 07/11/21 06:55 Lab results: Chemistry 07/07/21 07/08/21 07/08/21 16:24 07:57 12:24 Sodium 140 133 L 135 Potassium 5.5 H D 6.4 H* 5.1 D Carbon Dioxide 31 H 25 26 BUN 18 H 27 H 31 H Creatinine 1.38 1.91 H 1.74 H Calcium 9.8 D 9.1 D 9.4 07/09/21 04:05 Sodium 133 L Potassium 4.9 Carbon Dioxide 30 H BUN 42 H Creatinine 1.57 H Calcium 9.4 Hematology 07/07/21 07/09/21 16:24 04:05 WBC 11.8 H 16.1 H Hgb 15.6 15.2 Plt Count 282 294 Assessment and Plan (1) Atrial fibrillation with rapid ventricular response: Status: Acute (2) Acute on chronic systolic (congestive) heart failure: Status: Acute (3) Atherosclerotic cardiovascular disease: Status: Acute (4) Elevated troponin: Status: Acute (5) COVID-19: Status: Acute DECLAN superimposed on CKD in a setting of CHF Baseline Cr of 1.4 Now with DECLAN due to hypoperfusion Cr improving Hyperkalemia stands corrected Sugest Check urine for NA/Cr/ Protein Continue diuresis ; O > I Avoid hypotension Watch Na/K Procedures Date of Service Date of Service: 07/09/21
--- NOTE | 2021-07-09 11:33 | MHC.CM.PN ---
Patient remains in ED overflow. Per Dr Block, no discharge is expected today. Patient is from home with his sig other. Patient is not vaccinated. At this time, it is anticiapted patient will return home when medically stable. Continue to monitor for d/c needs.
[2021-07-09 13:00] LABS: Glucose, Whole Blood 135 mg/dL (60-115)
--- NOTE | 2021-07-09 14:51 | PC.NURSE ---
[place] [facility] [place]
[2021-07-09 16:09] LABS: Glucose, Whole Blood 235 mg/dL (60-115)
[2021-07-09 17:23] LABS: Glucose, Whole Blood 251 mg/dL (60-115)
[2021-07-09 20:13] LABS: Glucose, Whole Blood 137 mg/dL (60-115)
[2021-07-09] MEDS: Atorvastatin Calcium 80 MG TABLET PO (20:24)
--- NOTE | 2021-07-09 21:39 | W.PM.IDCN ---
History of Present Illness Data of Consult Service Date: 07/09/21 Requesting physician: Radha Block Primary Care Provider: ANA ROSA Harris HPI Reason for consult: shortness of breath He presents with shortness of breath for 14 days He has dry cough He has no fever or chills He has lethargy Review of Systems Review of Systems: Yes all other systems are reviewed and are negative [facility] Past Medical History Medical History Afib CAD (coronary artery disease) Cardiomyopathy CHF (congestive heart failure) COPD (chronic obstructive pulmonary disease) COPD (chronic obstructive pulmonary disease) COVID-19 Diabetes Diabetes mellitus type 2, uncontrolled Heart failure with reduced ejection fraction History of cardioversion KIMANI (obstructive sleep apnea) Paroxysmal atrial fibrillation Pneumonia due to COVID-19 virus Sleep apnea Sleep apnea Smoker Family History Family History Father Atherosclerosis Mother Cerebral aneurysm Maternal Grandmother Unknown family medical history Mother Cerebral hemorrhage Father Coronary artery disease Surgical History Surgical History H/O heart artery stent History of cardiac radiofrequency ablation History of esophagogastroduodenoscopy History of fracture of leg History of inguinal hernia History of umbilical hernia Hx of colonoscopy Social History Social History Household Members: Significant Other Housing: House Do you presently have visiting nurse or other home services: No Alcohol intake: former Patient Tobacco Use Status: Former Tobacco user Tobacco use type: Cigarette Cigarettes Per Day: 10 Years Smoked: 46 Smoked in Last 30 Days: No e-Cigarette/Vaping Use: Former Use Second Hand Smoke Exposure: Yes Use of substances other than those prescribed or required for medical reasons: No Advance Directives: No Advance Directives Information Provided: No service: No Current occupational status: unemployed and disabled Current occupation: rt handed Meds Allergies Allergy/AdvReac Type Severity Reaction Status Date / Time No Known Allergies Allergy Verified 07/19/21 22:28 [No Known Allergies*] Active Medications: Current Medications Acetaminophen (Acetaminophen 325 Mg Tablet) 650 mg PO Q6H PRN PRN Reason: Pain, Mild (Pain Scale 1-3) Albuterol Sulfate (Albuterol Sulfate (0.083%) 2.5 Mg/3 Ml Vial.Neb) 2.5 mg INHALE QID PRN PRN Reason: shortness of breath or wheezing Albuterol Sulfate (Albuterol Sulfate 90 Mcg 8 Gm Inhaler) 2 puff INHALE Q6H PRN PRN Reason: wheezing Apixaban (Apixaban 5 Mg Tablet) 5 mg PO BID [facility] Last Admin: 07/09/21 20:24 Dose: 5 mg Documented by: Atorvastatin Calcium (Atorvastatin Calcium 80 Mg Tablet) 80 mg PO BEDTIME [facility] Last Admin: 07/09/21 20:24 Dose: 80 mg Documented by: Dextrose (Dextrose 50 % 25 Gm/50 Ml Vial) 25 gm IVPUSH Q15M PRN; Protocol PRN Reason: per Hypoglycemia Standing Ord. Dextrose (Dextrose 50 % 25 Gm/50 Ml Vial) 25 gm IVPUSH Q15M PRN PRN Reason: per Hypoglycemia Standing Ord. Docusate Sodium (Docusate Sodium 100 Mg Capsule) 100 mg PO DAILY PRN PRN Reason: Constipation Furosemide (Furosemide 40 Mg/4 Ml Vial) 20 mg IVPUSH Q12H [facility]; Protocol Last Admin: 07/09/21 20:23 Dose: 20 mg Documented by: Gabapentin (Gabapentin 300 Mg Capsule) 300 mg PO TID [facility] Last Admin: 07/09/21 20:24 Dose: 300 mg Documented by: Glucose (Glucose Gel 15 Gm Gel..Gram.) 15 gm PO Q15M PRN; Protocol PRN Reason: per Hypoglycemia Standing Ord. Guaifenesin (Guaifenesin 100 Mg/5 Ml Liquid) 5 ml PO Q6H PRN PRN Reason: Cough Insulin Glargine (Insulin Glargine,Hum.Rec.Anlog 100 Unit/Ml 10 Ml Vial) 30 unit SUBCUT DAILY [facility] Last Admin: 07/09/21 08:43 Dose: 30 unit Documented by: Insulin Human Lispro (Insulin Lispro 100 Unit/Ml 3 Ml Vial) 5 unit SUBCUT TIDWM [facility] Last Admin: 07/09/21 17:23 Dose: 5 unit Documented by: Insulin Human Lispro (Insulin Lispro 100 Unit/Ml 3 Ml Vial) 0 unit SUBCUT QIDACHS [facility]; Protocol Last Admin: 07/09/21 20:30 Dose: Not Given Documented by: Lisinopril (Lisinopril 2.5 Mg Tablet) 2.5 mg PO BID [facility]; Protocol Last Admin: 07/08/21 09:38 Dose: 2.5 mg Documented by: Metoprolol Tartrate (Metoprolol Tartrate 25 Mg Tablet) 25 mg PO BID [facility]; Protocol Last Admin: 07/09/21 20:24 Dose: 25 mg Documented by: Omeprazole (Omeprazole 20 Mg Capsule.Dr) 20 mg PO DAILY@0630 [facility] Last Admin: 07/09/21 08:43 Dose: 20 mg Documented by: Ondansetron HCl (Ondansetron Hcl 4 Mg/2 Ml Vial) 4 mg IVPUSH Q8H PRN PRN Reason: Nausea and Vomiting Pharmacy Consult (Consult Rx Perform Med Rec) 1 each MISCELLANE ONCE PRN PRN Reason: Consult order Sertraline HCl (Sertraline Hcl 25 Mg Tablet) 25 mg PO DAILY [facility] Last Admin: 07/09/21 08:43 Dose: 25 mg Documented by: Sodium Chloride (0.9 % Sodium Chloride Flush 3 Ml Syringe) 3 ml IVFLUSH QSHIFT [facility] Last Admin: 07/09/21 20:23 Dose: 3 ml Documented by: Sodium Zirconium Cyclosilicate (Sodium Zirconium Cyclosilicate 10 Gm Powd.Pack) 10 gm PO DAILY [facility] Last Admin: 07/09/21 08:49 Dose: 10 gm Documented by: Tiotropium [place] (Tiotropium [place] 18 Mcg Cap.W.Dev) 1 puff INHALE RDAILY [facility] Last Admin: 07/09/21 11:11 Dose: 1 puff Documented by: Vitamin D (Cholecalciferol (Vitamin D3) 25 Mcg Tablet) 50 mcg PO DAILY [facility] Last Admin: 07/09/21 08:43 Dose: 50 mcg Documented by: Home Medications Medication Instructions Recorded Confirmed Last Taken Type umeclidinium 62.5 mcg/actuation 1 puff PO DAILY 10/30/20 07/20/21 07/19/21 History blister powder for inhalation (Incruse Ellipta) albuterol sulfate 90 mcg/actuation 2 puff PO Q6H PRN 06/23/21 07/20/21 Unknown History aerosol inhaler dulaglutide 0.75 mg/0.5 mL 0.75 mg SUBCUT KELLEY@0900 06/23/21 07/20/21 07/13/21 History subcutaneous pen injector (Trulicity) empagliflozin 25 mg tablet 25 mg PO DAILY 06/23/21 07/20/21 07/19/21 History (Jardiance) insulin glargine 100 unit/mL (3 40 unit SUBCUT BEDTIME 06/23/21 07/20/21 07/19/21 History mL) subcutaneous pen (Lantus Solostar U-100 Insulin) lisinopril 5 mg tablet 2.5 mg PO BID 06/23/21 07/20/21 07/19/21 History sertraline 25 mg tablet 25 mg PO DAILY 06/23/21 07/20/21 07/19/21 History gabapentin 300 mg capsule 300 mg PO TID 06/24/21 07/20/21 07/19/21 History insulin lispro 100 unit/mL 5 unit SUBCUT TIDWM 07/07/21 07/20/21 07/19/21 History subcutaneous solution (Humalog U-100 Insulin) omeprazole 20 mg capsule,delayed 20 mg PO DAILY@0630 07/20/21 07/20/21 07/19/21 History release Physical Exam Vital Signs: Vital Signs: Last Vital Signs Temp 98.7 F 07/09/21 20:00 Pulse 83 07/09/21 20:00 Resp 18 07/09/21 20:00 BP 109/68 07/09/21 20:00 Pulse Ox 96 07/09/21 20:00 BMI result Body Mass Index 33.5 Const: General: cooperative HENMT: Head: Yes normal to inspection Resp: Effort & Inspection: abnormal respiratory pattern Cardio: Rate: regular rate Rhythm: regular rhythm GI: Palpation (GI): nontender Results Labs CBC & Chem 7: 07/09/21 04:05 07/12/21 15:44 Labs: Short CBC 07/09/21 Range/Units 04:05 WBC 16.1 H (4.8-10.8) X10*3/uL Hgb 15.2 (14.0-18.0) g/dl Hct 49.0 (42.0-52.0) % Plt Count 294 (160-400) X10*3/uL BMP 07/09/21 04:05 Sodium 133 L Potassium 4.9 Chloride 97 Carbon Dioxide 30 H BUN 42 H Creatinine 1.57 H Calcium 9.4 Assessment and Plan (1) COVID-19: Status: Acute He has shortness of breath ,longstanding duration It is difficult to tell which is COPD and prolonged COVID symptoms Cycle threshold hasnt been helpful as difficult to stratify (2) COPD (chronic obstructive pulmonary disease) with acute bronchitis: Status: Acute (3) Low TSH level: Status: Acute Plan Would continue supportive COPD care Due to duration of symptoms Remdesivir or Baricitinib not useful,but also due to COPD would continue steroids
[2021-07-10 03:38] VITALS: BP 102/58; PULSE 94; RESP 20; TEMP 36.4; O2SAT 92
--- NOTE | 2021-07-10 03:44 | PC.NURSE ---
0330 pt had 7 beat v-tach.asymptomatic. notified.
--- NOTE | 2021-07-10 03:53 | PC.NURSE ---
ordered stat mag and BNP.
[2021-07-10 04:35] LABS: Anion Gap 11 (12-20); Blood Urea Nitrogen 58 mg/dL (9-16); Calcium 9.1 mg/dL (8.4-10.2); Carbon Dioxide 28 mmol/L (22-29); Chloride 99 mmol/L (96-108); Creatinine Clr Calc Pharmacy 63.9; Estimated Glomerular Filt Rate 45; Glucose Random 160 mg/dL (60-115); Magnesium 2.8 mg/dL (1.6-2.6); Potassium 4.3 mmol/L (3.3-5.1); Sodium 134 mmol/L (135-145)
[2021-07-10] MEDS: Omeprazole 20 MG CAPSULE.DR PO (05:45)
--- NOTE | 2021-07-10 05:54 | PC.NURSE ---
pt had 27 beat v-tach.magnesium 2.8 k+-4.3 bun -58 creat-1.58. notified.pt asymptomatic.
[2021-07-10 07:40] VITALS: BP 110/86; PULSE 81; RESP 20; TEMP 35.8; O2SAT 96
[2021-07-10 07:55] LABS: Glucose, Whole Blood 128 mg/dL (60-115)
--- NOTE | 2021-07-10 09:15 | HO.PM.IMPN ---
Subjective Subjective Date of Service: 07/10/21 Interval History: chf , covid, runs of vtach, copd Review of Systems still shortness of breath, denies any chest pain or cough or phlegm denies any nausea or vomiting. Physical Exam Vital Signs: Vital Signs: Last Vital Signs Temp 96.5 F L 07/10/21 07:40 Pulse 81 07/10/21 07:40 Resp 20 07/10/21 07:40 BP 110/86 07/10/21 07:40 Pulse Ox 96 07/10/21 07:40 BMI result Body Mass Index 33.5 Appearance: Alert.? Oriented X3.? not in distress.? cvs: rrr, [id number] , no murmur res: clear to auscultation ,no rhonchii or wheezing abd: no rebound or guarding ,nt, bs present. ext pulses present , no cyanosis ,? Leg swelling still1+edema. neuro: axo3 , nonfocal Objective Data Active Medications Acetaminophen (Acetaminophen 325 Mg Tablet) 650 mg PO Q6H PRN PRN Reason: Pain, Mild (Pain Scale 1-3) Albuterol Sulfate (Albuterol Sulfate (0.083%) 2.5 Mg/3 Ml Vial.Neb) 2.5 mg INHALE QID PRN PRN Reason: shortness of breath or wheezing Albuterol Sulfate (Albuterol Sulfate 90 Mcg 8 Gm Inhaler) 2 puff INHALE Q6H PRN PRN Reason: wheezing Apixaban (Apixaban 5 Mg Tablet) 5 mg PO BID [facility] Last Admin: 07/09/21 20:24 Dose: 5 mg Documented by: CONSUELO Atorvastatin Calcium (Atorvastatin Calcium 80 Mg Tablet) 80 mg PO BEDTIME [facility] Last Admin: 07/09/21 20:24 Dose: 80 mg Documented by: CONSUELO Dextrose (Dextrose 50 % 25 Gm/50 Ml Vial) 25 gm IVPUSH Q15M PRN; Protocol PRN Reason: per Hypoglycemia Standing Ord. Dextrose (Dextrose 50 % 25 Gm/50 Ml Vial) 25 gm IVPUSH Q15M PRN PRN Reason: per Hypoglycemia Standing Ord. Docusate Sodium (Docusate Sodium 100 Mg Capsule) 100 mg PO DAILY PRN PRN Reason: Constipation Gabapentin (Gabapentin 300 Mg Capsule) 300 mg PO TID [facility] Last Admin: 07/09/21 20:24 Dose: 300 mg Documented by: CONSUELO Glucose (Glucose Gel 15 Gm Gel..Gram.) 15 gm PO Q15M PRN; Protocol PRN Reason: per Hypoglycemia Standing Ord. Guaifenesin (Guaifenesin 100 Mg/5 Ml Liquid) 5 ml PO Q6H PRN PRN Reason: Cough Insulin Glargine (Insulin Glargine,Hum.Rec.Anlog 100 Unit/Ml 10 Ml Vial) 30 unit SUBCUT DAILY [facility] Last Admin: 07/09/21 08:43 Dose: 30 unit Documented by: ASCENCION Insulin Human Lispro (Insulin Lispro 100 Unit/Ml 3 Ml Vial) 5 unit SUBCUT TIDWM [facility] Last Admin: 07/09/21 17:23 Dose: 5 unit Documented by: MEKA Insulin Human Lispro (Insulin Lispro 100 Unit/Ml 3 Ml Vial) 0 unit SUBCUT QIDACHS [facility]; Protocol Last Admin: 07/10/21 08:00 Dose: Not Given Documented by: VANGIE Non-Admin Reason: No Insulin Coverage Lisinopril (Lisinopril 2.5 Mg Tablet) 2.5 mg PO BID [facility]; Protocol Last Admin: 07/08/21 09:38 Dose: 2.5 mg Documented by: EBEN Metoprolol Tartrate (Metoprolol Tartrate 25 Mg Tablet) 25 mg PO BID [facility]; Protocol Last Admin: 07/09/21 20:24 Dose: 25 mg Documented by: CONSUELO Omeprazole (Omeprazole 20 Mg Capsule.Dr) 20 mg PO DAILY@0630 [facility] Last Admin: 07/10/21 05:45 Dose: 20 mg Documented by: CONSUELO Ondansetron HCl (Ondansetron Hcl 4 Mg/2 Ml Vial) 4 mg IVPUSH Q8H PRN PRN Reason: Nausea and Vomiting Pharmacy Consult (Consult Rx Perform Med Rec) 1 each MISCELLANE ONCE PRN PRN Reason: Consult order Sertraline HCl (Sertraline Hcl 25 Mg Tablet) 25 mg PO DAILY [facility] Last Admin: 07/09/21 08:43 Dose: 25 mg Documented by: ASCENCION Sodium Chloride (0.9 % Sodium Chloride Flush 3 Ml Syringe) 3 ml IVFLUSH QSHIFT [facility] Last Admin: 01/12/22 20:23 Dose: 3 ml Documented by: CONSUELO Sodium Zirconium Cyclosilicate (Sodium Zirconium Cyclosilicate 10 Gm Powd.Pack) 10 gm PO DAILY [facility] Last Admin: 07/09/21 08:49 Dose: 10 gm Documented by: ASCENCION Tiotropium [place] (Tiotropium [place] 18 Mcg Cap.W.Dev) 1 puff INHALE RDAILY [facility] Last Admin: 07/09/21 11:11 Dose: 1 puff Documented by: BERTHA Vitamin D (Cholecalciferol (Vitamin D3) 25 Mcg Tablet) 50 mcg PO DAILY [facility] Last Admin: 07/09/21 08:43 Dose: 50 mcg Documented by: ASCENCION Labs CBC & Chem 7: 07/09/21 04:05 07/10/21 04:10 Labs: Laboratory Results - last 24 hr 07/07/21 07/08/21 07/08/21 16:24 07:57 12:24 Anion Gap BUN 18 H 27 H 31 H Creatinine 1.38 1.91 H 1.74 H Estim Creat Clear Calc Estimated GFR POC Glucose Random Glucose Calcium Magnesium 07/09/21 07/09/21 07/09/21 04:05 12:43 15:17 Anion Gap BUN 42 H Creatinine 1.57 H Estim Creat Clear Calc Estimated GFR POC Glucose 135 H 235 H Random Glucose Calcium Magnesium 07/09/21 07/09/21 07/09/21 17:19 19:00 20:08 Anion Gap BUN Creatinine Estim Creat Clear Calc Estimated GFR POC Glucose 251 H 137 H Random Glucose Calcium Magnesium 3.0 H 07/10/21 07/10/21 04:10 07:52 Anion Gap 11 L BUN 58 H Creatinine 1.58 H Estim Creat Clear Calc 63.9 Estimated GFR 45 POC Glucose 128 H Random Glucose 160 H Calcium 9.1 Magnesium 2.8 H Assessment and Plan (1) Ventricular tachycardia: Status: Acute (2) Atherosclerotic cardiovascular disease: Status: Acute (3) Acute on chronic systolic (congestive) heart failure: Status: Acute Assessment and Plan: 56-year-old male with past medical history of AFib, CHF with reduced ejection fraction who presents to the hospital with AFib with RVR. 1. ? AFib with RVR-? most likely driven by CHF exacerbation as well as COVID-19 infection -? patient underwent cardioversion in May -? started on Cardizem drip -? started on p.o. metoprolol adjusted TSH levels 0.01 ,? free t4 was normal in spoke to endocrinology: added methmazole added free t4 and total t3 , repeat q2 days lft's in am -? continue apixaban -? cardiology consult- off? Cardizem switched to metoprolol p.o. b.i.d.added mexlitine , Off Amiodarone because of thyroid dysfunction since last admission. 2. CHF exacerbation -? elevated BNP, dyspnea, orthopnea and PND -? will start him on IV Lasix -? takes 20 mg Lasix b.i.d. at home and reports compliance -? last echocardiogram done on 06/24 shows an ejection fraction of 15-20% -? cardiology consulted, will add daily weight, low-sodium diet, and strict I&O 3.? DECLAN, hyperkalemia resolved withlokemia -? most likely secondary to CHF -? IV Lasix as above -? follow BMP 4.? hyperlipidemia -? continue statin 5.? diabetes: fs 120-160 recieved lantus , also on sliding scale -continue to moniter fs closely -? will hold p.o. anti hyperglycemics -? start low-dose sliding scale insulin -? diabetic diet Quality Stroke Does the patient have a stroke diagnosis?: No VTE Prior VTE?: No VTE Risk Level:: Medical - moderate - high VTE Device Contraindication: Treatment Not Indicated VTE Drug Contraindication: N/A - Med Ordered
[2021-07-10] MEDS: Metoprolol Tartrate 25 MG TABLET PO ×2 (09:31→20:21)
[2021-07-10] MEDS: Sertraline HCL 25 MG TABLET PO (09:31)
[2021-07-10] MEDS: Cholecalciferol (Vitamin D3) 25 MCG TABLET 50 MCG PO (09:31)
[2021-07-10] MEDS: Gabapentin 300 MG CAPSULE PO ×3 (09:32→20:21)
[2021-07-10] MEDS: 0.9 % Sodium Chloride Flush 3 ML SYRINGE IVFLUSH ×3 (09:32→20:22)
[2021-07-10] MEDS: Apixaban 5 MG TABLET PO ×2 (09:32→20:21)
[2021-07-10] MEDS: Insulin Glargine,Hum.rec.anlog 100 UNIT/ML 10 ML VIAL 30 UNIT SUBCUT (09:32)
[2021-07-10] MEDS: Insulin Lispro 100 UNIT/ML 3 ML VIAL SUBCUT ×4 (09:32→17:05)
[2021-07-10] MEDS: Sodium Zirconium Cyclosilicate 10 GM POWD.PACK PO (09:36)
--- NOTE | 2021-07-10 10:26 | P.PNNP_ITS ---
Subjective Subjective Date of Service: 07/11/21 Interval history: Events noted Feels tired On CPAP Physical Exam Vital Signs: Vital Signs: Last Vital Signs Temp 96.5 F L 07/10/21 07:40 Pulse 81 07/10/21 07:40 Resp 20 07/10/21 07:40 BP 110/86 07/10/21 07:40 Pulse Ox 96 07/10/21 07:40 BMI result Body Mass Index 33.5 Const: General: cooperative and no acute distress Orientation/consciousness: patient oriented x3 HENMT: Other: Unremarkable Head: Yes normal to inspection Eyes: General: appearance normal, both eyes and all related structures Pupils: Equal, round and reactive pupils present Neck: Neck: Yes normal visual inspection Chest: Chest palpation & inspection: normal inspection of the chest Resp: Other: crackles bilaterally Effort & Inspection: normal respiratory effort Auscultation: clear to auscultation bilaterally and no wheezes Cardio: Jugular venous distension: no JVD Palpation: normal PMI Rate: re gular rate Rhythm: regular rhythm and abnormal rhythm Heart sounds: S1 normal heart sound present, S2 normal heart sound present, no gallops, no m urmurs and no rubs GI: Inspection: Yes normal to inspection Palpation (GI): Soft to palpation Auscultation: normal bowel sounds Back/Spine/Pelvis: Other: unremarkable Skin: General skin exam: no rashes or lesions noted, elasticity normal and turgor normal Lesions: other Rashes: no rashes Neuro: General: patient oriented x3 Cranial nerves: Yes Equal, round and reactive pupils present Cognition (Neuro): normal cognition Extrem: General: Yes normal to inspection, Yes no pedal edema and Yes other Psych: Mental Status: other Objective Data Labs CBC & Chem 7: 07/09/21 04:05 07/11/21 06:55 Labs: Laboratory Results - last 24 hr 07/09/21 07/09/21 07/09/21 12:43 15:17 17:19 Sodium Potassium Chloride Carbon Dioxide Anion Gap BUN Creatinine Estim Creat Clear Calc Estimated GFR POC Glucose 135 H 235 H 251 H Random Glucose Calcium Magnesium 07/09/21 07/09/21 07/10/21 19:00 20:08 04:10 Sodium 134 L Potassium 4.3 Chloride 99 Carbon Dioxide 28 Anion Gap 11 L BUN 58 H Creatinine 1.58 H Estim Creat Clear Calc 63.9 Estimated GFR 45 POC Glucose 137 H Random Glucose 160 H Calcium 9.1 Magnesium 3.0 H 2.8 H 07/10/21 07:52 Sodium Potassium Chloride Carbon Dioxide Anion Gap BUN Creatinine Estim Creat Clear Calc Estimated GFR POC Glucose 128 H Random Glucose Calcium Magnesium Procedures Date of Service Date of Service: 07/10/21 Assessment & Plan Assessment and plan (1) Atrial fibrillation with rapid ventricular response: Status: Acute (2) Acute on chronic systolic (congestive) heart failure: Status: Acute (3) Atherosclerotic cardiovascular disease: Status: Acute (4) Elevated troponin: Status: Acute (5) COVID-19: Status: Acute Assessment and Plan: DECLAN superimposed on CKD in a setting of CHF Baseline Cr of 1.4 Now with DECLAN due to hypoperfusion Cr improving Hyperkalemia stands corrected Continue to treat COPD/Covid Sugest Keep O > I Avoid hypotension Watch Na/K Time Spent With Patient Time: Total time spent is greater than 50% in coordination of care (as documented) at patient's floor/unit and/or counseling patient: Time with patient: 15 - 24 minutes Progress Note: Quality Stroke Does the patient have a stroke diagnosis?: No
[2021-07-10 11:08] VITALS: BP 114/72; PULSE 95; RESP 20; TEMP 36.5; O2SAT 97
[2021-07-10 11:13] LABS: Glucose, Whole Blood 169 mg/dL (60-115)
--- NOTE | 2021-07-10 11:55 | PM.PNCARD ---
Subjective Subjective Date of Service: 07/10/21 Interval history: Still has shortness of breath Review of Systems Review of Systems Yes all other systems are reviewed and are negative Cardiovascular: Reports as per HPI, Reports no additional cardiovascular complaints, Denies acrocyanosis, Denies cool extremities, Denies painful fingertips, Reports chest pain, Denies chest pain at rest, Denies diaphoresis, Denies syncope, Denies irregular heart rhythm, Denies claudication, Denies leg edema, Denies lightheadedness, Denies palpitations and Reports dyspnea Respiratory: Reports dyspnea Denies syncope Endocrine: Denies palpitations Physical Exam Vital Signs: Last Vital Signs Temp 97.7 F 07/10/21 11:08 Pulse 95 07/10/21 11:08 Resp 20 07/10/21 11:08 BP 114/72 07/10/21 11:08 Pulse Ox 97 07/10/21 11:08 BMI result Body Mass Index 33.5 Const General: no acute distress HENMT Other: Unremarkable Neck Neck: Yes normal visual inspection Chest Chest palpation & inspection: normal inspection of the chest Resp Auscultation: no crackles and no wheezes Cardio Palpation: normal PMI Heart sounds: S1 normal heart sound present, S2 normal heart sound present, no gallops, no murmurs and no rubs GI Palpation (GI): Soft to palpation Back/Spine/Pelvis Other: unremarkable Skin Lesions: other Neuro Cranial nerves: Yes Other cranial nerve findings present Extrem General: Yes other Psych Mental Status: other Objective Labs and Meds Result diagrams: 07/09/21 04:05 07/10/21 04:10 Lab results: Laboratory Results - last 24 hr 07/09/21 07/09/21 07/09/21 12:43 15:17 17:19 Sodium Potassium Chloride Carbon Dioxide Anion Gap BUN Creatinine Estim Creat Clear Calc Estimated GFR POC Glucose 135 H 235 H 251 H Random Glucose Calcium Magnesium 07/09/21 07/09/21 07/10/21 19:00 20:08 04:10 Sodium 134 L Potassium 4.3 Chloride 99 Carbon Dioxide 28 Anion Gap 11 L BUN 58 H Creatinine 1.58 H Estim Creat Clear Calc 63.9 Estimated GFR 45 POC Glucose 137 H Random Glucose 160 H Calcium 9.1 Magnesium 3.0 H 2.8 H 07/10/21 07/10/21 07:52 11:07 Sodium Potassium Chloride Carbon Dioxide Anion Gap BUN Creatinine Estim Creat Clear Calc Estimated GFR POC Glucose 128 H 169 H Random Glucose Calcium Magnesium Progress Note: A&P Assessment and plan (1) Ventricular tachycardia: Status: Acute (2) Atrial fibrillation with rapid ventricular response: Status: Acute (3) Acute on chronic systolic (congestive) heart failure: Status: Acute (4) Atherosclerotic cardiovascular disease: Status: Acute (5) Elevated troponin: Status: Acute (6) COVID-19: Status: Acute Assessment and Plan: EKG from admission with atrial fibrillation at a rate of 133/Min; PVC versus aberrant conduction. Cannot exclude old septal infarct or lateral infarct. Today, AF -rate 90s on telemetry. Also on telemetry, he had torsade appearing ventricular tachycardia initially. Today he had rather monomorphic appearing episodes of VT. Longest about 12 seconds or so. Recent echocardiogram with LVEF 15-20% and moderately dilated left atrium. High sensitivity troponins are 71 and 41. Cardiac catheterization 2017 showed a patent RCA stent but otherwise unremarkable coronaries. Overall, active COVID infection, recurrent atrial fibrillation in spite of previous cardioversions as well as prior ablation and not tolerating Amiodarone due to thyroid dysfunction. Suspected NSVT again in the context of COVID infection, pre-existing cardiomyopathy. At this time, recommend continuing home beta-blockers as long as the blood pressure tolerates. Do not believe troponin elevation is active ACS and most likely demand related. Empiric diuretics. Concurrent management of COVID. With regard to the ventricular tachycardia, need to discuss with Endocrine regarding Amiodarone use. Possibly life vest candidate. To be decided. Will follow up with you. Overall, he is quite ill and discussed guarded prognosis patient. He understands. Fall Risk Details Current Medications: Current Medications Acetaminophen (Acetaminophen 325 Mg Tablet) 650 mg PO Q6H PRN PRN Reason: Pain, Mild (Pain Scale 1-3) Albuterol Sulfate (Albuterol Sulfate (0.083%) 2.5 Mg/3 Ml Vial.Neb) 2.5 mg INHALE QID PRN PRN Reason: shortness of breath or wheezing Albuterol Sulfate (Albuterol Sulfate 90 Mcg 8 Gm Inhaler) 2 puff INHALE Q6H PRN PRN Reason: wheezing Apixaban (Apixaban 5 Mg Tablet) 5 mg PO BID [facility] Last Admin: 07/10/21 09:32 Dose: 5 mg Documented by: Atorvastatin Calcium (Atorvastatin Calcium 80 Mg Tablet) 80 mg PO BEDTIME ON LICENSE OF [facility] Last Admin: 07/09/21 20:24 Dose: 80 mg Documented by: Dextrose (Dextrose 50 % 25 Gm/50 Ml Vial) 25 gm IVPUSH Q15M PRN; Protocol PRN Reason: per Hypoglycemia Standing Ord. Dextrose (Dextrose 50 % 25 Gm/50 Ml Vial) 25 gm IVPUSH Q15M PRN PRN Reason: per Hypoglycemia Standing Ord. Docusate Sodium (Docusate Sodium 100 Mg Capsule) 100 mg PO DAILY PRN PRN Reason: Constipation Gabapentin (Gabapentin 300 Mg Capsule) 300 mg PO TID ON [facility] Last Admin: 07/10/21 09:32 Dose: 300 mg Documented by: Glucose (Glucose Gel 15 Gm Gel..Gram.) 15 gm PO Q15M PRN; Protocol PRN Reason: per Hypoglycemia Standing Ord. Guaifenesin (Guaifenesin 100 Mg/5 Ml Liquid) 5 ml PO Q6H PRN PRN Reason: Cough Insulin Glargine (Insulin Glargine,Hum.Rec.Anlog 100 Unit/Ml 10 Ml Vial) 30 unit SUBCUT DAILY ON [facility] OF [facility] Last Admin: 07/10/21 09:32 Dose: 30 unit Documented by: Insulin Human Lispro (Insulin Lispro 100 Unit/Ml 3 Ml Vial) 5 unit SUBCUT TIDWM ON LICENSE OF [facility] Last Admin: 07/10/21 09:32 Dose: 5 unit Documented by: Insulin Human Lispro (Insulin Lispro 100 Unit/Ml 3 Ml Vial) 0 unit SUBCUT QIDACHS ON [facility] OF [facility]; Protocol Last Admin: 07/10/21 08:00 Dose: Not Given Documented by: Lisinopril (Lisinopril 2.5 Mg Tablet) 2.5 mg PO BID [facility]; Protocol Last Admin: 07/08/21 09:38 Dose: 2.5 mg Documented by: Metoprolol Tartrate (Metoprolol Tartrate 25 Mg Tablet) 25 mg PO BID ON [facility]; Protocol Last Admin: 07/10/21 09:31 Dose: 25 mg Documented by: Omeprazole (Omeprazole 20 Mg Capsule.) 20 mg PO DAILY@0630 [facility] Last Admin: 07/10/21 05:45 Dose: 20 mg Documented by: Ondansetron HCl (Ondansetron Hcl 4 Mg/2 Ml Vial) 4 mg IVPUSH Q8H PRN PRN Reason: Nausea and Vomiting Pharmacy Consult (Consult Rx Perform Med Rec) 1 each MISCELLANE ONCE PRN PRN Reason: Consult order Sertraline HCl (Sertraline Hcl 25 Mg Tablet) 25 mg PO DAILY ON [facility] Last Admin: 07/10/21 09:31 Dose: 25 mg Documented by: Sodium Chloride (0.9 % Sodium Chloride Flush 3 Ml Syringe) 3 ml IVFLUSH QSHIFT ON [facility] OF [facility] Last Admin: 07/10/21 09:32 Dose: 3 ml Documented by: Sodium Zirconium Cyclosilicate (Sodium Zirconium Cyclosilicate 10 Gm Powd.Pack) 10 gm PO DAILY ON [facility] OF [facility] Last Admin: 07/10/21 09:36 Dose: 10 gm Documented by: Tiotropium [place] (Tiotropium [place] 18 Mcg Cap.W.Dev) 1 puff INHALE RDAILY ON [facility] OF [facility] Last Admin: 07/09/21 11:11 Dose: 1 puff Documented by: Vitamin D (Cholecalciferol (Vitamin D3) 25 Mcg Tablet) 50 mcg PO DAILY ON [facility] OF [facility] Last Admin: 07/10/21 09:31 Dose: 50 mcg Documented by: Time Spent With Patient Time: Total time spent is greater than 50% in coordination of care (as documented) at patient's floor/unit and/or counseling patient: Time with patient: 15 - 24 minutes Progress Note: Quality Stroke Does the patient have a stroke diagnosis?: No Procedures Date of Service Date of Service: 07/10/21
--- NOTE | 2021-07-10 14:11 | PM.EVENT ---
Event Note Date of Service: 07/10/21 Event Note: Discussed with EP regarding VT episodes. Recommendation is to start Mexilitine 150mg tid. Will also arrange for Lifevest.
[2021-07-10] MEDS: methIMAzole 10 MG TABLET PO (15:40)
[2021-07-10 15:51] VITALS: BP 113/82; PULSE 112; RESP 18; TEMP 37.1; O2SAT 98
[2021-07-10 16:34] LABS: Glucose, Whole Blood 129 mg/dL (60-115)
[2021-07-10] MEDS: Furosemide 20 MG/2 ML VIAL IVPUSH (17:04)
[2021-07-10] MEDS: Famotidine 20 MG TABLET PO (17:04)
[2021-07-10 20:00] VITALS: BP 108/73; PULSE 89; RESP 18; TEMP 37.1; O2SAT 98
[2021-07-10 20:09] LABS: Glucose, Whole Blood 70 mg/dL (60-115)
[2021-07-10] MEDS: Atorvastatin Calcium 80 MG TABLET PO (20:21)
[2021-07-10 23:47] VITALS: BP 118/73; PULSE 85; RESP 18; TEMP 35.9; O2SAT 97
[2021-07-11] VITALS (9 sets, daily range): BP systolic 93–121; BP diastolic 67–82; PULSE 74–95; RESP 16–20; TEMP 35.7–36.8; O2SAT 94–98
--- NOTE | 2021-07-11 | ECG_ITS ---
Test Reason : vtach Blood Pressure : / mmHG Vent. Rate : 091 BPM Atrial Rate : 000 BPM P-R Int : 000 ms QRS Dur : 126 ms QT Int : 388 ms P-R-T Axes : 000 041 080 degrees QTc Int : 477 ms Atrial fibrillation Non-specific intra-ventricular conduction block Cannot rule out Septal infarct (cited on or before 16-AUG-2018) Lateral infarct (cited on or before 16-AUG-2018) Abnormal ECG When compared with ECG of 08-JUL-2021 08:55, No significant change was found Referred By: Radha Block Electronically Signed By:DIAN WORRELL
[2021-07-11] MEDS: Furosemide 20 MG/2 ML VIAL IVPUSH (05:36)
[2021-07-11] MEDS: Omeprazole 20 MG CAPSULE.DR PO (05:36)
[2021-07-11 07:35] LABS: Alanine Aminotransferase 38 U/L (0-40); Albumin Level 3.3 g/dL (3.5-5.0); Alkaline Phosphatase 103 U/L (39-117); Anion Gap 13 (12-20); Aspartate Amino Transferase 20 U/L (5-37); Bilirubin Direct 0.3 mg/dL (0.0-0.5); Bilirubin Total 0.5 mg/dL (0.0-1.0); Blood Urea Nitrogen 48 mg/dL (9-16); Calcium 9.1 mg/dL (8.4-10.2); Carbon Dioxide 29 mmol/L (22-29); Chloride 99 mmol/L (96-108); Creatinine Clr Calc Pharmacy 83.5; Estimated Glomerular Filt Rate > 60; Glucose Random 85 mg/dL (60-115); Potassium 4.1 mmol/L (3.3-5.1); Sodium 137 mmol/L (135-145)
--- NOTE | 2021-07-11 07:45 | HO.PM.IMPN ---
Subjective Subjective Date of Service: 07/11/21 Interval History: afib , nsvt, declan on ckd 3 Review of Systems still somewhat short of breath with exertion denies any chest pain or nausea or vomiting or abdominal pain or fever or chills or cough or phlegm Physical Exam Vital Signs: Vital Signs: Last Vital Signs Temp 96.9 F 07/11/21 04:00 Pulse 74 07/11/21 04:00 Resp 17 07/11/21 04:00 BP 121/82 07/11/21 05:40 Pulse Ox 94 07/11/21 04:00 BMI result Body Mass Index 33.5 ?Appearance: Alert.? Oriented X3.? not in distress.? cvs: irrgeular rythem,, [id number] , no murmur res: clear to auscultation ,no rhonchii or wheezing abd: no rebound or guarding ,nt, bs present. ext pulses present , no cyanosis ,? Leg swelling still1+edema. neuro: axo3 , nonfocal Objective Data Active Medications Acetaminophen (Acetaminophen 325 Mg Tablet) 650 mg PO Q6H PRN PRN Reason: Pain, Mild (Pain Scale 1-3) Albuterol Sulfate (Albuterol Sulfate (0.083%) 2.5 Mg/3 Ml Vial.Neb) 2.5 mg INHALE QID PRN PRN Reason: shortness of breath or wheezing Albuterol Sulfate (Albuterol Sulfate 90 Mcg 8 Gm Inhaler) 2 puff INHALE Q6H PRN PRN Reason: wheezing Apixaban (Apixaban 5 Mg Tablet) 5 mg PO BID [facility] Last Admin: 07/10/21 20:21 Dose: 5 mg Documented by: RENITA Atorvastatin Calcium (Atorvastatin Calcium 80 Mg Tablet) 80 mg PO BEDTIME [facility] Last Admin: 07/10/21 20:21 Dose: 80 mg Documented by: RENITA Dextrose (Dextrose 50 % 25 Gm/50 Ml Vial) 25 gm IVPUSH Q15M PRN; Protocol PRN Reason: per Hypoglycemia Standing Ord. Dextrose (Dextrose 50 % 25 Gm/50 Ml Vial) 25 gm IVPUSH Q15M PRN PRN Reason: per Hypoglycemia Standing Ord. Docusate Sodium (Docusate Sodium 100 Mg Capsule) 100 mg PO DAILY PRN PRN Reason: Constipation Famotidine (Famotidine 20 Mg Tablet) 20 mg PO DAILY [facility] Last Admin: 07/10/21 17:04 Dose: 20 mg Documented by: VANGIE Furosemide (Furosemide 20 Mg/2 Ml Vial) 20 mg IVPUSH Q12H [facility]; Protocol Last Admin: 07/11/21 05:36 Dose: 20 mg Documented by: RENITA Gabapentin (Gabapentin 300 Mg Capsule) 300 mg PO TID [facility] Last Admin: 07/10/21 20:21 Dose: 300 mg Documented by: RENITA Glucose (Glucose Gel 15 Gm Gel..Gram.) 15 gm PO Q15M PRN; Protocol PRN Reason: per Hypoglycemia Standing Ord. Guaifenesin (Guaifenesin 100 Mg/5 Ml Liquid) 5 ml PO Q6H PRN PRN Reason: Cough Insulin Glargine (Insulin Glargine,Hum.Rec.Anlog 100 Unit/Ml 10 Ml Vial) 30 unit SUBCUT DAILY [facility] Last Admin: 07/10/21 09:32 Dose: 30 unit Documented by: VANGIE Insulin Human Lispro (Insulin Lispro 100 Unit/Ml 3 Ml Vial) 5 unit SUBCUT TIDWM [facility] Last Admin: 07/10/21 17:05 Dose: 5 unit Documented by: VANGIE Insulin Human Lispro (Insulin Lispro 100 Unit/Ml 3 Ml Vial) 0 unit SUBCUT QIDACHS [facility]; Protocol Last Admin: 07/10/21 20:23 Dose: Not Given Documented by: RENITA Non-Admin Reason: No Insulin Coverage Lisinopril (Lisinopril 2.5 Mg Tablet) 2.5 mg PO BID [facility]; Protocol Last Admin: 07/08/21 09:38 Dose: 2.5 mg Documented by: EBEN Methimazole (Methimazole 10 Mg Tablet) 10 mg PO DAILY [facility] Last Admin: 07/10/21 15:40 Dose: 10 mg Documented by: VANGIE Metoprolol Tartrate (Metoprolol Tartrate 25 Mg Tablet) 25 mg PO BID [facility]; Protocol Last Admin: 07/10/21 20:21 Dose: 25 mg Documented by: RENITA Mexiletine HCl (Mexiletine Hcl 150 Mg Capsule) 150 mg PO TID [facility] Last Admin: 07/10/21 20:21 Dose: 150 mg Documented by: RENITA Omeprazole (Omeprazole 20 Mg Capsule.) 20 mg PO DAILY@0630 [facility] Last Admin: 07/11/21 05:36 Dose: 20 mg Documented by: RENITA Ondansetron HCl (Ondansetron Hcl 4 Mg/2 Ml Vial) 4 mg IVPUSH Q8H PRN PRN Reason: Nausea and Vomiting Pharmacy Consult (Consult Rx Perform Med Rec) 1 each MISCELLANE ONCE PRN PRN Reason: Consult order Sertraline HCl (Sertraline Hcl 25 Mg Tablet) 25 mg PO DAILY [facility] Last Admin: 07/10/21 09:31 Dose: 25 mg Documented by: VANGIE Sodium Chloride (0.9 % Sodium Chloride Flush 3 Ml Syringe) 3 ml IVFLUSH QSHIFT [facility] Last Admin: 07/10/21 20:22 Dose: 3 ml Documented by: RENITA Sodium Zirconium Cyclosilicate (Sodium Zirconium Cyclosilicate 10 Gm Powd.Pack) 10 gm PO DAILY [facility] Last Admin: 07/10/21 09:36 Dose: 10 gm Documented by: VANGIE Tiotropium Mcdonald (Tiotropium Mcdonald 18 Mcg Cap.W.Dev) 1 puff INHALE RDAILY [facility] Last Admin: 07/10/21 14:35 Dose: Not Given Documented by: VANGIE Non-Admin Reason: Med Not Available Vitamin D (Cholecalciferol (Vitamin D3) 25 Mcg Tablet) 50 mcg PO DAILY [facility] Last Admin: 07/10/21 09:31 Dose: 50 mcg Documented by: VANGIE Labs CBC & Chem 7: 07/09/21 04:05 07/11/21 06:55 Labs: Laboratory Results - last 24 hr 07/10/21 07/10/21 07/10/21 04:10 07:52 11:07 Anion Gap Estim Creat Clear Calc Estimated GFR POC Glucose 128 H 169 H Random Glucose Calcium Total Bilirubin Direct Bilirubin AST ALT Alkaline Phosphatase Total Protein Albumin Free T4 1.50 07/10/21 07/10/21 07/11/21 16:16 20:03 06:55 Anion Gap 13 Estim Creat Clear Calc 83.5 Estimated GFR > 60 POC Glucose 129 H 70 Random Glucose 85 D Calcium 9.1 Total Bilirubin 0.5 Direct Bilirubin 0.3 AST 20 ALT 38 Alkaline Phosphatase 103 Total Protein 6.0 L Albumin 3.3 L Free T4 Assessment and Plan (1) Ventricular tachycardia: Status: Acute (2) Acute on chronic systolic (congestive) heart failure: Status: Acute (3) DECLAN (acute kidney injury): Status: Acute Assessment and Plan: 56-year-old male with past medical history of AFib, CHF with reduced ejection fraction who presents to the hospital with AFib with RVR. 1. ? AFib with RVR-? most likely driven by CHF exacerbation as well as COVID-19 infection -? patient underwent cardioversion in May -? started on Cardizem drip -? started on p.o. metoprolol adjusted TSH levels 0.01 ,? free t4 was normal in spoke to endocrinology: added methmazole added free t4 normal and total t3: 4.4 , repeat total t3 pending lft's seems normal -? continue apixaban -? cardiology consult- off? Cardizem switched to metoprolol p.o. b.i.d.,added mexlitine , ? Off? Amiodarone? because of thyroid dysfunction since? last admission. 2. CHF exacerbation -? elevated BNP, dyspnea, orthopnea and PND -? will start him on IV Lasix -? takes 20 mg Lasix b.i.d. at home and reports compliance -? last echocardiogram done on 06/24 shows an ejection fraction of 15-20% -? cardiology consulted, will add daily weight, low-sodium diet, and strict I&O 3.? DECLAN, hyperkalemia- improving resolved withlokemia -? most likely secondary to CHF -? IV Lasix as above -? follow BMP 4.? hyperlipidemia -? continue statin 5.? diabetes: fs 120-160 recieved lantus , also on sliding scale -continue to moniter fs closely -? will hold p.o. anti hyperglycemics -? start low-dose sliding scale insulin -? diabetic diet Quality Stroke Does the patient have a stroke diagnosis?: No VTE Prior VTE?: No VTE Risk Level:: Medical - moderate - high VTE Device Contraindication: Treatment Not Indicated VTE Drug Contraindication: N/A - Med Ordered
[2021-07-11 07:49] LABS: Glucose, Whole Blood 76 mg/dL (60-115)
[2021-07-11 07:55] LABS: Free T4 (Free Thyroxine) 1.35 ng/dL (0.71-1.85)
[2021-07-11] MEDS: Sertraline HCL 25 MG TABLET PO (08:24)
[2021-07-11] MEDS: Gabapentin 300 MG CAPSULE PO ×3 (08:25→21:13)
[2021-07-11] MEDS: methIMAzole 10 MG TABLET PO (08:25)
[2021-07-11] MEDS: Cholecalciferol (Vitamin D3) 25 MCG TABLET 50 MCG PO (08:25)
[2021-07-11] MEDS: Metoprolol Tartrate 25 MG TABLET PO ×2 (08:26→21:13)
[2021-07-11] MEDS: Insulin Glargine,Hum.rec.anlog 100 UNIT/ML 10 ML VIAL 30 UNIT SUBCUT (08:26)
[2021-07-11] MEDS: Apixaban 5 MG TABLET PO ×2 (08:26→21:13)
[2021-07-11] MEDS: Famotidine 20 MG TABLET PO (08:26)
[2021-07-11] MEDS: Insulin Lispro 100 UNIT/ML 3 ML VIAL SUBCUT ×3 (08:27→16:55)
[2021-07-11] MEDS: Sodium Zirconium Cyclosilicate 10 GM POWD.PACK PO (08:37)
[2021-07-11] MEDS: 0.9 % Sodium Chloride Flush 3 ML SYRINGE IVFLUSH ×3 (08:41→21:14)
--- NOTE | 2021-07-11 10:05 | MHC.CDI.CONC ---
CDI Concurrent Query Documentation Clarification: PHYSICIAN'S DOCUMENTATION REQUEST Date of Query: 07/11/21 1005 Patient Name: Jr Cruz Admit Date: 07/07/21 Dear Doctor, A review of the medical record indicates additional documentation may be needed. Please review below and update the documentation accordingly. Clinical Indicators: The following clinical information was noted in the record: Risk Factors/Clinical Indicators/Treatments BUN 18/Creatinine 1.38 on admit BUN 58/Creatinine 1.58 on 07/10/21 Per Nephrology note 07/10/21: DECLAN superimposed on CKD in a setting of CHF Baseline Cr of 1.4 Now with DECLAN due to hypoperfusion Please clarify which of the following accurately represents the patient's renal status: DECLAN on CKD, please provide stage - see criteria Other (please specify) Unable to determine Criteria for DECLAN* Stages of Chronic Kidney Disease* 1. Increase in serum creatinine by ? 0.3 mg/dL Level Description GFR (?26.5 micromol/L) within 48 hours, or G1 Normal or High > 90 2. Increase in serum creatinine to ?1.5 times baseline, G2 Mildly decreased 60 ? 89 which is known or presumed to have occurred within 7 days, or G3a Mildly to moderately decreased 45 ? 59 3. Urine volume <0.5 mL/kg/hour for six hours G3b Moderately to severely decreased 30 - 44 G4 Severely decreased 15 ? 29 G5 Kidney failure < 15 *Source: Kidney Disease: Improving Global Outcomes (KDIGO) 2012 Use of terms such as suspected, likely, concern for, or probable (associated with a specific diagnosis that is being evaluated, monitored, or treated as if it exists) are acceptable and can be coded in the inpatient setting, when documented at the time of discharge. Thank you, Sil Arndt , DARIEL Extension: [phone] Please use your independent medical judgment in providing your response. THIS QUERY IS PART OF THE PERMANENT MEDICAL RECORD Provider Response: Other Other Diagnosis: declan on ckd 3
[2021-07-11 11:13] LABS: Glucose, Whole Blood 82 mg/dL (60-115)
--- NOTE | 2021-07-11 11:19 | P.PNNP_ITS ---
Subjective Subjective Date of Service: 07/12/21 Interval history: afib , nsvt Physical Exam Vital Signs: Vital Signs: Last Vital Signs Temp 97.6 F 07/11/21 11:17 Pulse 88 07/11/21 11:17 Resp 19 07/11/21 11:17 BP 94/77 07/11/21 11:17 Pulse Ox 97 07/11/21 11:17 BMI result Body Mass Index 33.5 Const: General: cooperative and no acute distress Orientation/con sciousness: patient oriented x3 HENMT: Other: Unremarkable Head: Yes normal to inspection Eyes: General: appearance normal, both eyes and all related structures Pupils: Equal, round and reactive pupils present Neck: Neck: Yes normal visual inspection Chest: Chest palpation & inspection: normal inspection of the chest Resp: Other: crackles bilaterally Effort & Inspection: normal respiratory effort Auscultation: clear to auscultation bilaterally and no wheezes Cardio: Jugular venous distension: no JVD Palpation: normal PMI Rate: regular rate Rhythm: regular rhythm and abnormal rhythm Heart sounds: S1 normal heart sound present, S2 normal heart sound present, no gallops, no murmurs and no rubs GI: Inspection: Yes normal to inspection Palpation (GI): Soft to palpation Auscultation: normal bowel sounds Back/Spine/Pelvis: Other: unremarkable Skin: General skin exam: no rashes or lesions noted, elasticity normal and turgor normal Lesions: other Rashes: no rashes Neuro: General: patient oriented x3 Cranial nerves: Yes Equal, round and reactive pupils present Cognition (Neuro): normal cognition Extrem: General: Yes normal to inspection, Yes no pedal edema and Yes other Psych: Mental Status: other Objective Data Labs CBC & Chem 7: 07/09/21 04:05 07/12/21 07:03 Labs: Laboratory Results - last 24 hr 07/10/21 07/10/21 07/10/21 04:10 16:16 20:03 Sodium Potassium Chloride Carbon Dioxide Anion Gap BUN Creatinine Estim Creat Clear Calc Estimated GFR POC Glucose 129 H 70 Random Glucose Calcium Total Bilirubin Direct Bilirubin AST ALT Alkaline Phosphatase Total Protein Albumin Free T4 1.50 07/11/21 07/11/21 07/11/21 06:55 07:46 10:57 Sodium 137 Potassium 4.1 Chloride 99 Carbon Dioxide 29 Anion Gap 13 BUN 48 H Creatinine 1.21 Estim Creat Clear Calc 83.5 Estimated GFR > 60 POC Glucose 76 82 Random Glucose 85 D Calcium 9.1 Total Bilirubin 0.5 Direct Bilirubin 0.3 AST 20 ALT 38 Alkaline Phosphatase 103 Total Protein 6.0 L Albumin 3.3 L Free T4 1.35 Procedures Date of Service Date of Service: 07/11/21 Assessment & Plan Assessment and plan (1) Atrial fibrillation with rapid ventricular response: Status: Acute (2) Acute on chronic systolic (congestive) heart failure: Status: Acute (3) Atherosclerotic cardiovascular disease: Status: Acute (4) Elevated troponin: Status: Acute (5) COVID-19: Status: Acute Assessment and Plan: DECLAN superimposed on CKD3a in a setting of CHF Baseline Cr of 1.4 Now with DECLAN due to hypoperfusion Cr improving Hyperkalemia stands corrected Continue to treat COPD/Covid Suggest Keep O > I Avoid hypotension Watch Na/K Cardiology note appreciated- await Lifevest Time Spent With Patient Time: Total time spent is greater than 50% in coordination of care (as d ocumented) at patient's floor/unit and/or counseling patient: Time with patient: 15 - 24 minutes Progress Note: Quality Stroke Does the patient have a stroke diagnosis?: No
--- NOTE | 2021-07-11 12:09 | PM.PNCARD ---
Subjective Subjective Date of Service: 07/11/21 Interval history: Still short of breath. Review of Systems Review of Systems Yes all other systems are reviewed and are negative Cardiovascular: Reports as per HPI, Reports no additional cardiovascular complaints, Denies acrocyanosis, Denies cool extremities, Denies painful fingertips, Reports chest pain, Denies chest pain at rest, Denies diaphoresis, Denies syncope, Denies irregular heart rhythm, Denies claudication, Denies leg edema, Denies lightheadedness, Denies palpitations and Reports dyspnea Respiratory: Reports dyspnea Denies syncope Endocrine: Denies palpitations Physical Exam Vital Signs: Last Vital Signs Temp 97.6 F 07/11/21 11:17 Pulse 92 07/11/21 11:28 Resp 16 07/11/21 11:28 BP 94/77 07/11/21 11:17 Pulse Ox 97 07/11/21 11:17 BMI result Body Mass Index 33.5 Const General: no acute distress HENMT Other: Unremarkable Neck Neck: Yes normal visual inspection Chest Chest palpation & inspection: normal inspection of the chest Resp Auscultation: no crackles and wheezes (present) Cardio Palpation: normal PMI Heart sounds: S1 normal heart sound present, S2 normal heart sound present, no gallops, no murmurs and no rubs GI Palpation (GI): Soft to palpation Back/Spine/Pelvis Other: unremarkable Skin Lesions: other Neuro Cranial nerves: Yes Other cranial nerve findings present Extrem General: Yes other Psych Mental Status: other Objective Labs and Meds Result diagrams: 07/09/21 04:05 07/11/21 06:55 Lab results: Laboratory Results - last 24 hr 07/10/21 07/10/21 07/10/21 04:10 16:16 20:03 Sodium Potassium Chloride Carbon Dioxide Anion Gap BUN Creatinine Estim Creat Clear Calc Estimated GFR POC Glucose 129 H 70 Random Glucose Calcium Total Bilirubin Direct Bilirubin AST ALT Alkaline Phosphatase Total Protein Albumin Free T4 1.50 07/11/21 07/11/21 07/11/21 06:55 07:46 10:57 Sodium 137 Potassium 4.1 Chloride 99 Carbon Dioxide 29 Anion Gap 13 BUN 48 H Creatinine 1.21 Estim Creat Clear Calc 83.5 Estimated GFR > 60 POC Glucose 76 82 Random Glucose 85 D Calcium 9.1 Total Bilirubin 0.5 Direct Bilirubin 0.3 AST 20 ALT 38 Alkaline Phosphatase 103 Total Protein 6.0 L Albumin 3.3 L Free T4 1.35 Progress Note: A&P Assessment and plan (1) Ventricular tachycardia: Status: Acute (2) Atrial fibrillation with rapid ventricular response: Status: Acute (3) Acute on chronic systolic (congestive) heart failure: Status: Acute (4) Atherosclerotic cardiovascular disease: Status: Acute (5) Elevated troponin: Status: Acute (6) COVID-19: Status: Acute Assessment and Plan: EKG from admission with atrial fibrillation at a rate of 133/Min; PVC versus aberrant conduction. Cannot exclude old septal infarct or lateral infarct. Today, AF -rate 90s on telemetry. NSVT episodes on telemetry. Recent echocardiogram with LVEF 15-20% and moderately dilated left atrium. High sensitivity troponins are 71 and 41. Cardiac catheterization 2017 showed a patent RCA stent but otherwise unremarkable coronaries. Overall, active COVID infection, recurrent atrial fibrillation in spite of previous cardioversions as well as prior ablation and not tolerating Amiodarone due to thyroid dysfunction. Suspected NSVT again in the context of COVID infection, pre-existing cardiomyopathy. At this time, recommend continuing home beta-blockers as long as the blood pressure tolerates. Do not believe troponin elevation is active ACS and most likely demand related. Empiric diuretics. Concurrent management of COVID. With regard to the ventricular tachycardia, unable to use Amiodarone due to thyroid dysfunction ( discussed with endocrine). Started Mexilitine. Lifevest ordered. Eventually ICD. Discussed with , EP. Will follow up with you. Overall, he is quite ill and discussed guarded prognosis with patient. He understands. Fall Risk Details Current Medications: Current Medications Acetaminophen (Acetaminophen 325 Mg Tablet) 650 mg PO Q6H PRN PRN Reason: Pain, Mild (Pain Scale 1-3) Albuterol Sulfate (Albuterol Sulfate (0.083%) 2.5 Mg/3 Ml Vial.Neb) 2.5 mg INHALE QID PRN PRN Reason: shortness of breath or wheezing Albuterol Sulfate (Albuterol Sulfate 90 Mcg 8 Gm Inhaler) 2 puff INHALE Q6H PRN PRN Reason: wheezing Apixaban (Apixaban 5 Mg Tablet) 5 mg PO BID [facility] Last Admin: 07/11/21 08:26 Dose: 5 mg Documented by: Atorvastatin Calcium (Atorvastatin Calcium 80 Mg Tablet) 80 mg PO BEDTIME [facility] Last Admin: 07/10/21 20:21 Dose: 80 mg Documented by: Dextrose (Dextrose 50 % 25 Gm/50 Ml Vial) 25 gm IVPUSH Q15M PRN; Protocol PRN Reason: per Hypoglycemia Standing Ord. Dextrose (Dextrose 50 % 25 Gm/50 Ml Vial) 25 gm IVPUSH Q15M PRN PRN Reason: per Hypoglycemia Standing Ord. Docusate Sodium (Docusate Sodium 100 Mg Capsule) 100 mg PO DAILY PRN PRN Reason: Constipation Famotidine (Famotidine 20 Mg Tablet) 20 mg PO DAILY [facility] Last Admin: 07/11/21 08:26 Dose: 20 mg Documented by: Furosemide (Furosemide 20 Mg/2 Ml Vial) 20 mg IVPUSH Q12H [facility]; Protocol Last Admin: 07/11/21 05:36 Dose: 20 mg Documented by: Gabapentin (Gabapentin 300 Mg Capsule) 300 mg PO TID [facility] Last Admin: 07/11/21 08:25 Dose: 300 mg Documented by: Glucose (Glucose Gel 15 Gm Gel..Gram.) 15 gm PO Q15M PRN; Protocol PRN Reason: per Hypoglycemia Standing Ord. Guaifenesin (Guaifenesin 100 Mg/5 Ml Liquid) 5 ml PO Q6H PRN PRN Reason: Cough Insulin Glargine (Insulin Glargine,Hum.Rec.Anlog 100 Unit/Ml 10 Ml Vial) 30 unit SUBCUT DAILY [facility] Last Admin: 07/11/21 08:26 Dose: 30 unit Documented by: Insulin Human Lispro (Insulin Lispro 100 Unit/Ml 3 Ml Vial) 5 unit SUBCUT TIDWM [facility] Last Admin: 07/11/21 08:27 Dose: 5 unit Documented by: Insulin Human Lispro (Insulin Lispro 100 Unit/Ml 3 Ml Vial) 0 unit SUBCUT QIDACHS [facility]; Protocol Last Admin: 07/11/21 07:52 Dose: Not Given Documented by: Lisinopril (Lisinopril 2.5 Mg Tablet) 2.5 mg PO BID [facility]; Protocol Last Admin: 07/08/21 09:38 Dose: 2.5 mg Documented by: Methimazole (Methimazole 10 Mg Tablet) 10 mg PO DAILY [facility] Last Admin: 07/11/21 08:25 Dose: 10 mg Documented by: Metoprolol Tartrate (Metoprolol Tartrate 25 Mg Tablet) 25 mg PO BID [facility]; Protocol Last Admin: 07/11/21 08:26 Dose: 25 mg Documented by: Mexiletine HCl (Mexiletine Hcl 150 Mg Capsule) 150 mg PO TID [facility] Last Admin: 07/11/21 08:25 Dose: 150 mg Documented by: Omeprazole (Omeprazole 20 Mg Capsule.Dr) 20 mg PO DAILY@0630 [facility] Last Admin: 07/11/21 05:36 Dose: 20 mg Documented by: Ondansetron HCl (Ondansetron Hcl 4 Mg/2 Ml Vial) 4 mg IVPUSH Q8H PRN PRN Reason: Nausea and Vomiting Pharmacy Consult (Consult Rx Perform Med Rec) 1 each MISCELLANE ONCE PRN PRN Reason: Consult order Sertraline HCl (Sertraline Hcl 25 Mg Tablet) 25 mg PO DAILY [facility] Last Admin: 07/11/21 08:24 Dose: 25 mg Documented by: Sodium Chloride (0.9 % Sodium Chloride Flush 3 Ml Syringe) 3 ml IVFLUSH QSHIFT [facility] Last Admin: 07/11/21 08:41 Dose: 3 ml Documented by: Sodium Zirconium Cyclosilicate (Sodium Zirconium Cyclosilicate 10 Gm Powd.Pack) 10 gm PO DAILY [facility] Last Admin: 07/11/21 08:37 Dose: 10 gm Documented by: Tiotropium Brady (Tiotropium Brady 18 Mcg Cap.W.Dev) 1 puff INHALE RDAILY [facility] Last Admin: 07/11/21 11:28 Dose: 1 puff Documented by: Vitamin D (Cholecalciferol (Vitamin D3) 25 Mcg Tablet) 50 mcg PO DAILY [facility] Last Admin: 07/11/21 08:25 Dose: 50 mcg Documented by: Time Spent With Patient Time: Total time spent is greater than 50% in coordination of care (as documented) at patient's floor/unit and/or counseling patient: Time with patient: less than 15 minutes Progress Note: Quality Stroke Does the patient have a stroke diagnosis?: No Procedures Date of Service Date of Service: 07/11/21
--- NOTE | 2021-07-11 12:43 | PM.CNPUL ---
History of Present Illness History of Present Illness Consult date: 07/11/21 Chief complaint: CHF, COVID Narrative: This is an inpatient consultation. The patient is a 48-year-old male with past medical history of paroxysmal AFib, CHF, COPD, diabetes, sleep apnea?and covid 19 more caitlin andn 1 year ago who presents to the hospital with complaints of shortness of breath.? Patient reports that he has been feeling short of breath for the past 1 week, went to his PCP with the same complaint, an EKG was done in the office and he was found in AFib with RVR and asked to come to the hospital.? Patient? was in the hospital at the end of May and underwent cardioversion for his AFib and is now back in AFib with RVR.? He reports minimal cough, no sputum production, no fever or chills, he has orthopnea, PND, no lower extremity edema.? He denies any chest pain, no headache or change in vision, no abdominal pain, no nausea or vomiting, no diarrhea constipation no urinary symptoms.?Labs are significant for +covid19, WBC count of 11.8, potassium 5.5, BUN of 18, creatinine of 1.38 with a baseline of 1.1, troponin of 71.5, BNP of 967, COVID-19 positive. Chest x-ray shows stable exam since 06/23 with redemonstration of intermediate blunting of the right? costophrenic angle and increased interstitial markings. During the hospitalization the patient has been evaluated for the Vtach. In addition he has been describing worsening shortness of breath. He has been using his CPAP throughout the day because is helps him. He does have a cough which is dry. Review of Systems Review of Systems: Yes all other systems are reviewed and are negative Cardiovascular: Cardiovascular: Reports as per HPI, Reports no additional cardiovascular complaints, Denies acrocyanosis, Denies cool extremities, Denies painful fingertips, Reports chest pain, Denies chest pain at rest, Denies diaphoresis, Denies syncope, Denies irregular heart rhythm, Denies claudication, Denies leg edema, Denies lightheadedness, Denies palpitations and Reports dyspnea Respiratory: Respiratory: Reports cough and Reports dyspnea Neurologic: Denies syncope Endocrine: Endocrine: Denies palpitations PMFSH Past Medical History Medical History Afib CAD (coronary artery disease) Cardiomyopathy CHF (congestive heart failure) COPD (chronic obstructive pulmonary disease) COPD (chronic obstructive pulmonary disease) COVID-19 Diabetes Diabetes mellitus type 2, uncontrolled Heart failure with reduced ejection fraction History of cardioversion KIMANI (obstructive sleep apnea) Paroxysmal atrial fibrillation Pneumonia due to COVID-19 virus Sleep apnea Sleep apnea Smoker Family History Family History Father Atherosclerosis Mother Cerebral aneurysm Maternal Grandmother Unknown family medical history Mother Cerebral hemorrhage Father Coronary artery disease Surgical History Surgical History H/O heart artery stent History of cardiac radiofrequency ablation History of esophagogastroduodenoscopy History of fracture of leg History of inguinal hernia History of umbilical hernia Hx of colonoscopy Social History Social History Household Members: Significant Other Housing: House Do you presently have visiting nurse or other home services: No Alcohol intake: never Patient Tobacco Use Status: Current everyday Tobacco user Tobacco use type: Cigarette Cigarettes Per Day: 10 Years Smoked: 46 e-Cigarette/Vaping Use: Former Use Second Hand Smoke Exposure: Yes service: No Current occupational status: unemployed and disabled Current occupation: rt handed Meds Allergies Allergy/AdvReac Type Severity Reaction Status Date / Time No Known Allergies Allergy Verified 07/07/21 09:24 [No Known Allergies*] Active Medications: Current Medications Acetaminophen (Acetaminophen 325 Mg Tablet) 650 mg PO Q6H PRN PRN Reason: Pain, Mild (Pain Scale 1-3) Albuterol Sulfate (Albuterol Sulfate (0.083%) 2.5 Mg/3 Ml Vial.Neb) 2.5 mg INHALE QID PRN PRN Reason: shortness of breath or wheezing Albuterol Sulfate (Albuterol Sulfate 90 Mcg 8 Gm Inhaler) 2 puff INHALE Q6H PRN PRN Reason: wheezing Apixaban (Apixaban 5 Mg Tablet) 5 mg PO BID [facility] Last Admin: 07/11/21 08:26 Dose: 5 mg Documented by: Atorvastatin Calcium (Atorvastatin Calcium 80 Mg Tablet) 80 mg PO BEDTIME [facility] Last Admin: 07/10/21 20:21 Dose: 80 mg Documented by: Dextrose (Dextrose 50 % 25 Gm/50 Ml Vial) 25 gm IVPUSH Q15M PRN; Protocol PRN Reason: per Hypoglycemia Standing Ord. Dextrose (Dextrose 50 % 25 Gm/50 Ml Vial) 25 gm IVPUSH Q15M PRN PRN Reason: per Hypoglycemia Standing Ord. Docusate Sodium (Docusate Sodium 100 Mg Capsule) 100 mg PO DAILY PRN PRN Reason: Constipation Famotidine (Famotidine 20 Mg Tablet) 20 mg PO DAILY [facility] Last Admin: 07/11/21 08:26 Dose: 20 mg Documented by: Furosemide (Furosemide 20 Mg/2 Ml Vial) 20 mg IVPUSH Q12H [facility]; Protocol Last Admin: 07/11/21 05:36 Dose: 20 mg Documented by: Gabapentin (Gabapentin 300 Mg Capsule) 300 mg PO TID [facility] Last Admin: 07/11/21 08:25 Dose: 300 mg Documented by: Glucose (Glucose Gel 15 Gm Gel..Gram.) 15 gm PO Q15M PRN; Protocol PRN Reason: per Hypoglycemia Standing Ord. Guaifenesin (Guaifenesin 100 Mg/5 Ml Liquid) 5 ml PO Q6H PRN PRN Reason: Cough Insulin Glargine (Insulin Glargine,Hum.Rec.Anlog 100 Unit/Ml 10 Ml Vial) 30 unit SUBCUT DAILY [facility] Last Admin: 07/11/21 08:26 Dose: 30 unit Documented by: Insulin Human Lispro (Insulin Lispro 100 Unit/Ml 3 Ml Vial) 5 unit SUBCUT TIDWM [facility] Last Admin: 07/11/21 08:27 Dose: 5 unit Documented by: Insulin Human Lispro (Insulin Lispro 100 Unit/Ml 3 Ml Vial) 0 unit SUBCUT QIDACHS [facility]; Protocol Last Admin: 07/11/21 12:16 Dose: Not Given Documented by: Lisinopril (Lisinopril 2.5 Mg Tablet) 2.5 mg PO BID [facility]; Protocol Last Admin: 07/08/21 09:38 Dose: 2.5 mg Documented by: Methimazole (Methimazole 10 Mg Tablet) 10 mg PO DAILY [facility] Last Admin: 07/11/21 08:25 Dose: 10 mg Documented by: Metoprolol Tartrate (Metoprolol Tartrate 25 Mg Tablet) 25 mg PO BID [facility]; Protocol Last Admin: 07/11/21 08:26 Dose: 25 mg Documented by: Mexiletine HCl (Mexiletine Hcl 150 Mg Capsule) 150 mg PO TID [facility] Last Admin: 07/11/21 08:25 Dose: 150 mg Documented by: Omeprazole (Omeprazole 20 Mg Capsule.) 20 mg PO DAILY@0630 [facility] Last Admin: 07/11/21 05:36 Dose: 20 mg Documented by: Ondansetron HCl (Ondansetron Hcl 4 Mg/2 Ml Vial) 4 mg IVPUSH Q8H PRN PRN Reason: Nausea and Vomiting Pharmacy Consult (Consult Rx Perform Med Rec) 1 each MISCELLANE ONCE PRN PRN Reason: Consult order Sertraline HCl (Sertraline Hcl 25 Mg Tablet) 25 mg PO DAILY [facility] Last Admin: 07/11/21 08:24 Dose: 25 mg Documented by: Sodium Chloride (0.9 % Sodium Chloride Flush 3 Ml Syringe) 3 ml IVFLUSH QSHIFT [facility] Last Admin: 07/11/21 08:41 Dose: 3 ml Documented by: Sodium Zirconium Cyclosilicate (Sodium Zirconium Cyclosilicate 10 Gm Powd.Pack) 10 gm PO DAILY [facility] Last Admin: 07/11/21 08:37 Dose: 10 gm Documented by: Tiotropium [place] (Tiotropium [place] 18 Mcg Cap.W.Dev) 1 puff INHALE RDAILY [facility] Last Admin: 07/11/21 11:28 Dose: 1 puff Documented by: Vitamin D (Cholecalciferol (Vitamin D3) 25 Mcg Tablet) 50 mcg PO DAILY [facility] Last Admin: 07/11/21 08:25 Dose: 50 mcg Documented by: Home Medications Medication Instructions Recorded Confirmed Last Taken Type umeclidinium 62.5 mcg/actuation 1 puff PO DAILY 10/30/20 07/07/21 07/07/21 History blister powder for inhalation (Incruse Ellipta) albuterol sulfate 90 mcg/actuation 2 puff PO Q6H PRN 06/23/21 07/07/21 Unknown History aerosol inhaler atorvastatin 40 mg tablet 40 tab PO BEDTIME 06/23/21 07/07/21 07/06/21 History dulaglutide 0.75 mg/0.5 mL 0.75 mg SUBCUT TH 06/23/21 07/07/21 07/03/21 History subcutaneous pen injector (Trulicity) empagliflozin 25 mg tablet 25 mg PO DAILY 06/23/21 07/07/21 07/07/21 History (Jardiance) insulin glargine 100 unit/mL (3 40 unit SUBCUT BEDTIME 06/23/21 07/07/21 07/06/21 History mL) subcutaneous pen (Lantus Solostar U-100 Insulin) lisinopril 5 mg tablet 2.5 mg PO BID 06/23/21 07/07/21 07/07/21 History omeprazole 20 mg capsule,delayed 20 mg PO DAILY 06/23/21 07/07/21 07/07/21 History release sertraline 25 mg tablet 25 mg PO DAILY 06/23/21 07/07/21 07/07/21 History gabapentin 300 mg capsule 300 mg PO TID 06/24/21 07/07/21 07/07/21 History insulin lispro 100 unit/mL 5 unit SUBCUT TIDWM 07/07/21 07/07/21 Unknown History subcutaneous solution (Humalog U-100 Insulin) Physical Exam Vital Signs: Vital Signs: Last Vital Signs Temp 97.6 F 07/11/21 11:17 Pulse 92 07/11/21 11:28 Resp 16 07/11/21 11:28 BP 94/77 07/11/21 11:17 Pulse Ox 97 07/11/21 11:17 BMI result Body Mass Index 33.5 Const: General: alert Neck: Neck: Yes normal visual inspection, Yes full ROM and Yes no lymphadenopathy Chest: Chest palpation & inspection: normal inspection of the chest Resp: Auscultation: rales, wheezes (Left lung more than right) expiratory wheezes and diminished lung sounds Cardio: Rate: regular rate Rhythm: regular rhythm Heart sounds: S1 normal heart sound present and S2 normal heart sound present GI: Palpation (GI): Soft to palpation and nontender Auscultation: normal bowel sounds Skin: General skin exam: rashes and/or lesions noted Results Laboratory Findings CBC and BMP: 07/09/21 04:05 07/11/21 06:55 Abnormal lab findings: Abnormal Labs 07/07/21 07/07/21 07/07/21 16:24 16:24 16:24 WBC 11.8 H Abs Immat Gran (auto) 0.04 H Absolute Neuts (auto) Sodium Potassium 5.5 H D Carbon Dioxide 31 H Anion Gap BUN 18 H Creatinine POC Glucose Random Glucose 187 H Magnesium Troponin I High Sens 71.5 H B-Natriuretic Peptide Total Protein Albumin TSH COVID-19 ([facility]) 07/07/21 07/07/21 07/08/21 16:24 16:24 07:57 WBC Abs Immat Gran (auto) Absolute Neuts (auto) Sodium Potassium Carbon Dioxide Anion Gap BUN Creatinine POC Glucose Random Glucose Magnesium Troponin I High Sens 41.2 H B-Natriuretic Peptide 967 H Total Protein Albumin TSH COVID-19 ([facility]) Positive A 07/08/21 07/08/21 07/08/21 07:57 09:04 11:24 WBC Abs Immat Gran (auto) Absolute Neuts (auto) Sodium 133 L Potassium 6.4 H* Carbon Dioxide Anion Gap BUN 27 H Creatinine 1.91 H POC Glucose 469 H* 277 H Random Glucose 423 H* Magnesium 2.7 H Troponin I High Sens B-Natriuretic Peptide Total Protein 6.3 L Albumin TSH 0.01 L COVID-19 ([facility]) 07/08/21 07/08/21 07/08/21 12:24 19:54 21:39 WBC Abs Immat Gran (auto) Absolute Neuts (auto) Sodium Potassium Carbon Dioxide Anion Gap BUN 31 H Creatinine 1.74 H POC Glucose 170 H 209 H Random Glucose 151 H D Magnesium Troponin I High Sens B-Natriuretic Peptide Total Protein Albumin TSH COVID-19 ([facility]) 07/08/21 07/08/21 07/09/21 22:32 23:40 04:05 WBC 16.1 H Abs Immat Gran (auto) 0.07 H Absolute Neuts (auto) 11.5 H Sodium Potassium Carbon Dioxide Anion Gap BUN Creatinine POC Glucose 188 H 202 H Random Glucose Magnesium Troponin I High Sens B-Natriuretic Peptide Total Protein Albumin TSH COVID-19 ([facility]) 07/09/21 07/09/21 07/09/21 04:05 07:16 12:43 WBC Abs Immat Gran (auto) Absolute Neuts (auto) Sodium 133 L Potassium Carbon Dioxide 30 H Anion Gap 11 L BUN 42 H Creatinine 1.57 H POC Glucose 140 H 135 H Random Glucose 142 H Magnesium Troponin I High Sens B-Natriuretic Peptide Total Protein Albumin TSH COVID-19 ([facility]) 07/09/21 07/09/21 07/09/21 15:17 17:19 19:00 WBC Abs Immat Gran (auto) Absolute Neuts (auto) Sodium Potassium Carbon Dioxide Anion Gap BUN Creatinine POC Glucose 235 H 251 H Random Glucose Magnesium 3.0 H Troponin I High Sens B-Natriuretic Peptide Total Protein Albumin TSH COVID-19 ([facility]) 07/09/21 07/10/21 07/10/21 20:08 04:10 07:52 WBC Abs Immat Gran (auto) Absolute Neuts (auto) Sodium 134 L Potassium Carbon Dioxide Anion Gap 11 L BUN 58 H Creatinine 1.58 H POC Glucose 137 H 128 H Random Glucose 160 H Magnesium 2.8 H Troponin I High Sens B-Natriuretic Peptide Total Protein Albumin TSH COVID-19 ([facility]) 07/10/21 07/10/21 07/11/21 11:07 16:16 06:55 WBC Abs Immat Gran (auto) Absolute Neuts (auto) Sodium Potassium Carbon Dioxide Anion Gap BUN 48 H Creatinine POC Glucose 169 H 129 H Random Glucose Magnesium Troponin I High Sens B-Natriuretic Peptide Total Protein 6.0 L Albumin 3.3 L TSH COVID-19 ([facility]) Assessment and Plan (1) COPD (chronic obstructive pulmonary disease) with acute bronchitis: Status: Acute (2) COVID-19: Status: Acute (3) Acute dyspnea: Status: Acute (4) Pneumonia due to COVID-19 virus: Status: Acute Start Decadron DuoNebs q.6 hours. Monitor for increased heart rate Repeat chest x-ray today Awake prone Continue CPAP therapy Procedures Date of Service Date of Service: 07/11/21
--- NOTE | 2021-07-11 13:13 | MHC.CM.PN ---
Per ROUNDS discussion, Patient is not yet medically cleared for dc (IV Lasix); Home is the goal for dc and CM will follow for possible need to adjust the dc plan.
[2021-07-11] MEDS: dexAMETHasone 6 MG TABLET PO (14:50)
[2021-07-11 15:06] LABS: Triiodothyronine T3 Free 3.1 pg/mL (2.3-4.2)
[2021-07-11 16:22] LABS: Glucose, Whole Blood 108 mg/dL (60-115)
[2021-07-11 19:48] LABS: Glucose, Whole Blood 132 mg/dL (60-115)
[2021-07-11] MEDS: Albuterol/Iprat 2.5/0.5MG 3 ML AMPUL.NEB INHALE (20:20)
[2021-07-11] MEDS: Atorvastatin Calcium 80 MG TABLET PO (21:13)
[2021-07-12] VITALS: BP 120/82; PULSE 92; RESP 18; TEMP 36.4; O2SAT 97
[2021-07-12 04:00] VITALS: BP 109/80; PULSE 80; RESP 20; TEMP 36.3; O2SAT 95
[2021-07-12] MEDS: Omeprazole 20 MG CAPSULE.DR PO (06:14)
[2021-07-12 07:43] VITALS: BP 116/75; PULSE 96; RESP 22; TEMP 36.1; O2SAT 97
[2021-07-12 07:43] LABS: Glucose, Whole Blood 245 mg/dL (60-115)
[2021-07-12] MEDS: Albuterol/Iprat 2.5/0.5MG 3 ML AMPUL.NEB INHALE (07:50)
[2021-07-12 07:52] VITALS: PULSE 76; RESP 18; O2SAT 94
[2021-07-12] MEDS: Insulin Lispro 100 UNIT/ML 3 ML VIAL SUBCUT ×4 (08:12→12:08)
[2021-07-12] MEDS: Metoprolol Tartrate 25 MG TABLET PO (08:13)
[2021-07-12] MEDS: 0.9 % Sodium Chloride Flush 3 ML SYRINGE IVFLUSH ×2 (08:13→15:57)
[2021-07-12] MEDS: dexAMETHasone 6 MG TABLET PO (08:13)
[2021-07-12 08:14] LABS: Blood Urea Nitrogen 45 mg/dL (9-16); Calcium 9.2 mg/dL (8.4-10.2); Creatinine Clr Calc Pharmacy 74.2; Estimated Glomerular Filt Rate 54; Glucose Random 275 mg/dL (60-115)
[2021-07-12] MEDS: Gabapentin 300 MG CAPSULE PO ×2 (08:14→15:55)
[2021-07-12] MEDS: Apixaban 5 MG TABLET PO (08:14)
[2021-07-12] MEDS: Cholecalciferol (Vitamin D3) 25 MCG TABLET 50 MCG PO (08:14)
[2021-07-12] MEDS: Famotidine 20 MG TABLET PO (08:14)
[2021-07-12] MEDS: Sertraline HCL 25 MG TABLET PO (08:14)
--- NOTE | 2021-07-12 08:22 | P.PNIM_ITS ---
Subjective Subjective Date of Service: 07/12/21 Interval History: chf Physical Exam Vital Signs: Vital Signs: Last Vital Signs Temp 97.0 F 07/12/21 07:43 Pulse 76 07/12/21 07:52 Resp 18 07/12/21 07:52 BP 116/75 07/12/21 07:43 Pulse Ox 97 07/12/21 07:43 BMI result Body Mass Index 33.5 Objective Data Active Medications Acetaminophen (Acetaminophen 325 Mg Tablet) 650 mg PO Q6H PRN PRN Reason: Pain, Mild (Pain Scale 1-3) Albuterol Sulfate (Albuterol Sulfate (0.083%) 2.5 Mg/3 Ml Vial.Neb) 2.5 mg INHALE QID PRN PRN Reason: shortness of breath or wheezing Albuterol Sulfate (Albuterol Sulfate 90 Mcg 8 Gm Inhaler) 2 puff INHALE Q6H PRN PRN Reason: wheezing Albuterol/Ipratropium (Albuterol/Iprat 2.5/0.5mg 3 Ml Ampul.Neb) 3 ml INHALE RQ6H WHILE AWAKE [facility] Last Admin: 07/12/21 07:50 Dose: 3 ml Documented by: MALAIKA Apixaban (Apixaban 5 Mg Tablet) 5 mg PO BID [facility] Last Admin: 07/12/21 08:14 Dose: 5 mg Documented by: SANAM Atorvastatin Calcium (Atorvastatin Calcium 80 Mg Tablet) 80 mg PO BEDTIME [facility] Last Admin: 07/11/21 21:13 Dose: 80 mg Documented by: INDIO Dexamethasone (Dexamethasone 6 Mg Tablet) 6 mg PO DAILY [facility] Last Admin: 07/12/21 08:13 Dose: 6 mg Documented by: SANAM Dextrose (Dextrose 50 % 25 Gm/50 Ml Vial) 25 gm IVPUSH Q15M PRN; Protocol PRN Reason: per Hypoglycemia Standing Ord. Dextrose (Dextrose 50 % 25 Gm/50 Ml Vial) 25 gm IVPUSH Q15M PRN PRN Reason: per Hypoglycemia Standing Ord. Docusate Sodium (Docusate Sodium 100 Mg Capsule) 100 mg PO DAILY PRN PRN Reason: Constipation Famotidine (Famotidine 20 Mg Tablet) 20 mg PO DAILY [facility] Last Admin: 07/12/21 08:14 Dose: 20 mg Documented by: SANAM Furosemide (Furosemide 20 Mg/2 Ml Vial) 20 mg IVPUSH Q12H [facility]; Protocol Last Admin: 07/11/21 05:36 Dose: 20 mg Documented by: ODRISJohn Gabapentin (Gabapentin 300 Mg Capsule) 300 mg PO TID [facility] Last Admin: 07/12/21 08:14 Dose: 300 mg Documented by: SANAM Glucose (Glucose Gel 15 Gm Gel..Gram.) 15 gm PO Q15M PRN; Protocol PRN Reason: per Hypoglycemia Standing Ord. Guaifenesin (Guaifenesin 100 Mg/5 Ml Liquid) 5 ml PO Q6H PRN PRN Reason: Cough Insulin Glargine (Insulin Glargine,Hum.Rec.Anlog 100 Unit/Ml 10 Ml Vial) 30 unit SUBCUT DAILY [facility] Last Admin: 07/11/21 08:26 Dose: 30 unit Documented by: JOVANNY Insulin Human Lispro (Insulin Lispro 100 Unit/Ml 3 Ml Vial) 5 unit SUBCUT TIDWM [facility] Last Admin: 07/12/21 08:12 Dose: 5 unit Documented by: SANAM Insulin Human Lispro (Insulin Lispro 100 Unit/Ml 3 Ml Vial) 0 unit SUBCUT QIDACHS [facility]; Protocol Last Admin: 07/12/21 08:12 Dose: 4 unit Documented by: SANAM Lisinopril (Lisinopril 2.5 Mg Tablet) 2.5 mg PO BID [facility]; Protocol Last Admin: 07/08/21 09:38 Dose: 2.5 mg Documented by: EBEN Metoprolol Tartrate (Metoprolol Tartrate 25 Mg Tablet) 25 mg PO BID [facility]; Protocol Last Admin: 07/12/21 08:13 Dose: 25 mg Documented by: SNAAM Mexiletine HCl (Mexiletine Hcl 150 Mg Capsule) 150 mg PO TID [facility] Last Admin: 07/12/21 08:13 Dose: 150 mg Documented by: SANAM Omeprazole (Omeprazole 20 Mg Capsule.) 20 mg PO DAILY@0630 [facility] Last Admin: 07/12/21 06:14 Dose: 20 mg Documented by: INDIO Ondansetron HCl (Ondansetron Hcl 4 Mg/2 Ml Vial) 4 mg IVPUSH Q8H PRN PRN Reason: Nausea and Vomiting Pharmacy Consult (Consult Rx Perform Med Rec) 1 each MISCELLANE ONCE PRN PRN Reason: Consult order Sertraline HCl (Sertraline Hcl 25 Mg Tablet) 25 mg PO DAILY [facility] Last Admin: 07/12/21 08:14 Dose: 25 mg Documented by: SANAM Sodium Chloride (0.9 % Sodium Chloride Flush 3 Ml Syringe) 3 ml IVFLUSH QSHIFT [facility] Last Admin: 07/12/21 08:13 Dose: 3 ml Documented by: SANAM Sodium Zirconium Cyclosilicate (Sodium Zirconium Cyclosilicate 10 Gm Powd.Pack) 10 gm PO DAILY [facility] Last Admin: 07/11/21 08:37 Dose: 10 gm Documented by: JOVANNY Tiotropium [place] (Tiotropium [place] 18 Mcg Cap.W.Dev) 1 puff INHALE RDAILY [facility] Last Admin: 07/12/21 07:52 Dose: Not Given Documented by: MALAIKA Non-Admin Reason: Med Not Available Vitamin D (Cholecalciferol (Vitamin D3) 25 Mcg Tablet) 50 mcg PO DAILY [facility] Last Admin: 07/12/21 08:14 Dose: 50 mcg Documented by: SANAM Labs CBC & Chem 7: 07/09/21 04:05 07/12/21 07:03 Labs: Laboratory Results - last 24 hr 07/10/21 07/11/21 07/11/21 04:10 10:57 16:15 Estim Creat Clear Calc Estimated GFR POC Glucose 82 108 Random Glucose Calcium Free T3 3.1 07/11/21 07/12/21 07/12/21 19:41 07:03 07:24 Estim Creat Clear Calc 74.2 Estimated GFR 54 POC Glucose 132 H 245 H Random Glucose 275 H D Calcium 9.2 Free T3 Quality Stroke Does the patient have a stroke diagnosis?: No VTE Prior VTE?: No VTE Risk Level:: Medical - moderate - high VTE Device Contraindication: Treatment Not Indicated VTE Drug Contraindication: N/A - Med Ordered
[2021-07-12 08:29] LABS: Anion Gap 14 (12-20); Carbon Dioxide 31 mmol/L (22-29); Chloride 96 mmol/L (96-108); Potassium 5.7 mmol/L (3.3-5.1); Sodium 135 mmol/L (135-145)
[2021-07-12] MEDS: Sodium Zirconium Cyclosilicate 10 GM POWD.PACK PO (09:25)
[2021-07-12] MEDS: Insulin Glargine,Hum.rec.anlog 100 UNIT/ML 10 ML VIAL 30 UNIT SUBCUT (09:25)
[2021-07-12 11:57] LABS: Triiodothyronine T3 Total 96 ng/dL (76-181)
[2021-07-12 12:00] VITALS: BP 109/78; PULSE 89; RESP 22; TEMP 36.3; O2SAT 95
[2021-07-12 12:07] LABS: Glucose, Whole Blood 300 mg/dL (60-115)
--- NOTE | 2021-07-12 12:18 | P.PNCA_ITS ---
Subjective Subjective Date of Service: 07/12/21 Interval history: feels better. Review of Systems Review of Systems Yes all other systems are reviewed and are negative Cardiovascular: Reports as per HPI, Reports no additional cardiovascular complaints, Denies acrocyanosis, Denies cool extremities, Denies painful fingertips, Reports chest pain, Denies chest pain at rest, Denies diaphoresis, Denies syncope, Denies irregular heart rhythm, Denies claudication, Denies leg edema, Denies lightheadedness, Denies palpitations and Reports dyspnea Respiratory: Reports dyspnea Denies syncope Endocrine: Denies palpitations Physical Exam Vital Signs: Last Vital Signs Temp 97.0 F 07/12/21 07:43 Pulse 76 07/12/21 07:52 Resp 18 07/12/21 07:52 BP 116/75 07/12/21 07:43 Pulse Ox 97 07/12/21 07:43 BMI result Body Mass Index 33.5 Const General: no acute distress HENMT Other: Unremarkable Neck Neck: Yes normal visual inspection Chest Chest palpation & inspection: normal inspection of the chest Resp Auscultation: no crackles and wheezes (present) Cardio Palpation: normal PMI Heart sounds: S1 normal heart sound present, S2 normal heart sound present, no gallops, no murmurs and no rubs GI Palpation (GI): Soft to palpation Back/Spine/Pelvis Other: unremarkable Skin Lesions: other Neuro Cranial nerves: Yes Other cranial nerve findings present Extrem General: Yes other Psych Mental Status: other Objective Labs and Meds Result diagrams: 07/09/21 04:05 07/12/21 07:03 Lab results: Laboratory Results - last 24 hr 07/10/21 07/11/21 07/11/21 04:10 06:55 16:15 Sodium Potassium Chloride Carbon Dioxide Anion Gap BUN Creatinine Estim Creat Clear Calc Estimated GFR POC Glucose 108 Random Glucose Calcium Free T3 3.1 Total T3 96 07/11/21 07/12/21 07/12/21 19:41 07:03 07:24 Sodium 135 Potassium 5.7 H D Chloride 96 Carbon Dioxide 31 H Anion Gap 14 BUN 45 H Creatinine 1.36 Estim Creat Clear Calc 74.2 Estimated GFR 54 POC Glucose 132 H 245 H Random Glucose 275 H D Calcium 9.2 Free T3 Total T3 07/12/21 11:56 Sodium Potassium Chloride Carbon Dioxide Anion Gap BUN Creatinine Estim Creat Clear Calc Estimated GFR POC Glucose 300 H Random Glucose Calcium Free T3 Total T3 Imaging Radiologist's impression: Impressions Chest X-Ray 07/11/21 13:18 IMPRESSION: Stable chest x-ray questionable for mild CHF. Progress Note: A&P Assessment and plan (1) Ventricular tachycardia: Status: Acute (2) Atrial fibrillation with rapid ventricular response: Status: Acute (3) Acute on chronic systolic (congestive) heart failure: Status: Acute (4) Atherosclerotic cardiovascular disease: Status: Acute (5) Elevated troponin: Status: Acute (6) COVID-19: Status: Acute Assessment and Plan: NSVT episodes on telemetry, but nothing in last 24 hrs; baseline AF. Recent echocardiogram with LVEF 15-20% and moderately dilated left atrium. High sensitivity troponins are 71 and 41. Cardiac catheterization 2017 showed a patent RCA stent but otherwise unremarkable coronaries. Overall, active COVID infection, recurrent atrial fibrillation in spite of previous cardioversions as well as prior ablation and not tolerating Amiodarone due to thyroid dysfunction. Suspected NSVT again in the context of COVID infection, pre-existing cardiomyopathy. At this time, recommend continuing home beta-blockers as long as the blood pressure tolerates. Do not believe troponin elevation is active ACS and most likely demand related. Empiric diuretics. Concurrent management of COVID. With regard to the ventricular tachycardia, unable to use Amiodarone due to thyroid dysfunction ( discussed with endocrine). Started Mexilitine. Lifevest ordered. Eventually ICD. Discussed with , EP. Once lifevest is fitted, can be discharged. Fall Risk Details Current Medications: Current Medications Acetaminophen (Acetaminophen 325 Mg Tablet) 650 mg PO Q6H PRN PRN Reason: Pain, Mild (Pain Scale 1-3) Albuterol Sulfate (Albuterol Sulfate (0.083%) 2.5 Mg/3 Ml Vial.Neb) 2.5 mg INHALE QID PRN PRN Reason: shortness of breath or wheezing Albuterol Sulfate (Albuterol Sulfate 90 Mcg 8 Gm Inhaler) 2 puff INHALE Q6H PRN PRN Reason: wheezing Albuterol/Ipratropium (Albuterol/Iprat 2.5/0.5mg 3 Ml Ampul.Neb) 3 ml INHALE RQ6H WHILE AWAKE [facility] Last Admin: 07/12/21 07:50 Dose: 3 ml Documented by: Apixaban (Apixaban 5 Mg Tablet) 5 mg PO BID [facility] Last Admin: 07/12/21 08:14 Dose: 5 mg Documented by: Atorvastatin Calcium (Atorvastatin Calcium 80 Mg Tablet) 80 mg PO BEDTIME [facility] Last Admin: 07/11/21 21:13 Dose: 80 mg Documented by: Dexamethasone (Dexamethasone 6 Mg Tablet) 6 mg PO DAILY [facility] Last Admin: 07/12/21 08:13 Dose: 6 mg Documented by: Dextrose (Dextrose 50 % 25 Gm/50 Ml Vial) 25 gm IVPUSH Q15M PRN; Protocol PRN Reason: per Hypoglycemia Standing Ord. Dextrose (Dextrose 50 % 25 Gm/50 Ml Vial) 25 gm IVPUSH Q15M PRN PRN Reason: per Hypoglycemia Standing Ord. Docusate Sodium (Docusate Sodium 100 Mg Capsule) 100 mg PO DAILY PRN PRN Reason: Constipation Famotidine (Famotidine 20 Mg Tablet) 20 mg PO DAILY [facility] Last Admin: 07/12/21 08:14 Dose: 20 mg Documented by: Furosemide (Furosemide 20 Mg/2 Ml Vial) 20 mg IVPUSH Q12H [facility]; Protocol Last Admin: 07/11/21 05:36 Dose: 20 mg Documented by: Gabapentin (Gabapentin 300 Mg Capsule) 300 mg PO TID [facility] Last Admin: 07/12/21 08:14 Dose: 300 mg Documented by: Glucose (Glucose Gel 15 Gm Gel..Gram.) 15 gm PO Q15M PRN; Protocol PRN Reason: per Hypoglycemia Standing Ord. Guaifenesin (Guaifenesin 100 Mg/5 Ml Liquid) 5 ml PO Q6H PRN PRN Reason: Cough Insulin Glargine (Insulin Glargine,Hum.Rec.Anlog 100 Unit/Ml 10 Ml Vial) 30 unit SUBCUT DAILY [facility] Last Admin: 07/12/21 09:25 Dose: 30 unit Documented by: Insulin Human Lispro (Insulin Lispro 100 Unit/Ml 3 Ml Vial) 5 unit SUBCUT TIDWM [facility] Last Admin: 07/12/21 12:07 Dose: 5 unit Documented by: Insulin Human Lispro (Insulin Lispro 100 Unit/Ml 3 Ml Vial) 0 unit SUBCUT QIDACHS [facility]; Protocol Last Admin: 07/12/21 12:08 Dose: 6 unit Documented by: Lisinopril (Lisinopril 2.5 Mg Tablet) 2.5 mg PO BID [facility]; Protocol Last Admin: 07/08/21 09:38 Dose: 2.5 mg Documented by: Metoprolol Tartrate (Metoprolol Tartrate 25 Mg Tablet) 25 mg PO BID [facility]; Protocol Last Admin: 07/12/21 08:13 Dose: 25 mg Documented by: Mexiletine HCl (Mexiletine Hcl 150 Mg Capsule) 150 mg PO TID [facility] Last Admin: 07/12/21 08:13 Dose: 150 mg Documented by: Omeprazole (Omeprazole 20 Mg Capsule.Dr) 20 mg PO DAILY@0630 [facility] Last Admin: 07/12/21 06:14 Dose: 20 mg Documented by: Ondansetron HCl (Ondansetron Hcl 4 Mg/2 Ml Vial) 4 mg IVPUSH Q8H PRN PRN Reason: Nausea and Vomiting Pharmacy Consult (Consult Rx Perform Med Rec) 1 each MISCELLANE ONCE PRN PRN Reason: Consult order Sertraline HCl (Sertraline Hcl 25 Mg Tablet) 25 mg PO DAILY [facility] Last Admin: 07/12/21 08:14 Dose: 25 mg Documented by: Sodium Chloride (0.9 % Sodium Chloride Flush 3 Ml Syringe) 3 ml IVFLUSH QSHIFT [facility] Last Admin: 07/12/21 08:13 Dose: 3 ml Documented by: Sodium Zirconium Cyclosilicate (Sodium Zirconium Cyclosilicate 10 Gm Powd.Pack) 10 gm PO DAILY [facility] Last Admin: 07/12/21 09:25 Dose: 10 gm Documented by: Tiotropium [place] (Tiotropium [place] 18 Mcg Cap.W.Dev) 1 puff INHALE RDAILY [facility] Last Admin: 07/12/21 07:52 Dose: Not Given Documented by: Vitamin D (Cholecalciferol (Vitamin D3) 25 Mcg Tablet) 50 mcg PO DAILY [facility] Last Admin: 07/12/21 08:14 Dose: 50 mcg Documented by: Time Spent With Patient Time: Total time spent is greater than 50% in coordination of care (as documented) at patient's floor/unit and/or counseling patient: Time with patient: less than 15 minutes Progress Note: Quality Stroke Does the patient have a stroke diagnosis?: No Procedures Date of Service Date of Service: 07/12/21
--- NOTE | 2021-07-12 12:58 | P.PNNP_ITS ---
Subjective Subjective Date of Service: 07/13/21 Interval history: Evetns noted Physical Exam Vital Signs: Vital Signs: Last Vital Signs Temp 97.4 F 07/12/21 12:00 Pulse 89 07/12/21 12:00 Resp 22 H 07/12/21 12:00 BP 109/78 07/12/21 12:00 Pulse Ox 95 07/12/21 12:00 BMI result Body Mass Index 33.5 Const: General: cooperative and no acute distress Orientation/co nsciousness: patient oriented x3 HENMT: Other: Unremarkable Head: Yes normal to inspection Eyes: General: appearance normal, both eyes and all related structures Pupils: Equal, round and reactive pupils present Neck: Neck: Yes normal visual inspection Chest: Chest palpation & inspection: normal inspection of the chest Resp: Other: crackles bilaterally Effort & Inspection: normal respiratory effort Auscultation: clear to auscultation bilaterally and no wheezes Cardio: Jugular venous distension: no JVD Palpation: normal PMI Rate: regular rate Rhythm: regular rhythm and abnormal rhythm Heart sounds: S1 normal heart sound present, S2 normal heart sound present, no gallops, no murmurs and no rubs GI: Inspection: Yes normal to inspection Palpation (GI): Soft to palpation Auscultation: normal bowel sounds Back/Spine/Pelvis: Other: unremarkable Skin: General skin exam: no rashes or lesions noted, elasticity normal and turgor normal Lesions: other Rashes: no rashes Neuro: General: patient oriented x3 Cranial nerves: Yes Equal, round and reactive pupils present Cognition (Neuro): normal cognition Extrem: General: Yes normal to inspection, Yes no pedal edema and Yes other Psych: Mental Status: other Objective Data Labs CBC & Chem 7: 07/09/21 04:05 07/12/21 15:44 Labs: Laboratory Results - last 24 hr 07/10/21 07/11/21 07/11/21 04:10 06:55 16:15 Sodium Potassium Chloride Carbon Dioxide Anion Gap BUN Creatinine Estim Creat Clear Calc Estimated GFR POC Glucose 108 Random Glucose Calcium Free T3 3.1 Total T3 96 07/11/21 07/12/21 07/12/21 19:41 07:03 07:24 Sodium 135 Potassium 5.7 H D Chloride 96 Carbon Dioxide 31 H Anion Gap 14 BUN 45 H Creatinine 1.36 Estim Creat Clear Calc 74.2 Estimated GFR 54 POC Glucose 132 H 245 H Random Glucose 275 H D Calcium 9.2 Free T3 Total T3 07/12/21 11:56 Sodium Potassium Chloride Carbon Dioxide Anion Gap BUN Creatinine Estim Creat Clear Calc Estimated GFR POC Glucose 300 H Random Glucose Calcium Free T3 Total T3 Procedures Date of Service Date of Service: 07/12/21 Assessment & Plan Assessment and plan (1) Atrial fibrillation with rapid ventricular response: Status: Acute (2) Acute on chronic systolic (congestive) heart failure: Status: Acute (3) Atherosclerotic cardiovascular disease: Status: Acute (4) Elevated troponin: Status: Acute (5) COVID-19: Status: Acute Assessment and Plan: DECLAN superimposed on CKD3a in a setting of CHF Baseline Cr of 1.4 Now with DECLAN due to hypoperfusion Cr improving Hyperkalemia stands corrected Continue to treat COPD/Covid Suggest Keep O > I Avoid hypotension Watch Na/K Cardiology note appreciated- await Lifevest Time Spent With Patient Time: Total time spent is greater than 50% in coordination of care (as documented) at patient's floor/unit and/or counseling patient: Time with patient: 15 - 24 minutes Progress Note: Quality Stroke Does the patient have a stroke diagnosis?: No
--- NOTE | 2021-07-12 15:48 | PM.DS ---
DS: Providers Provider Date of Service: 07/12/21 Date of admission: 07/07/21 21:47 Primary care physician: SAVANAH Harris Consults: 07/08/21 08:53 Consult to Cardiology Routine Consulting Provider: Suleiman Pham Reason for consultation: A fib w rvr Has provider been notified: No 07/08/21 12:19 Consult to Nephrology Routine Consulting Provider: Jim Olson Reason for consultation: declan on ckd Has provider been notified: No 07/09/21 11:42 Consult to Infectious Diseases Routine Consulting Provider: Lolita Perez Reason for consultation: possible covd pnuemonia vs chf Has provider been notified: No 07/11/21 07:49 Consult to Pulmonology Routine Consulting Provider: Wally Teran Reason for consultation: sob persistent-chf vs copd vs covid Has provider been notified: No DS: Diagnosis Discharge Diagnosis (1) Atrial fibrillation with rapid ventricular response: Status: Acute (2) Acute on chronic systolic (congestive) heart failure: Status: Acute (3) Atherosclerotic cardiovascular disease: Status: Acute (4) Elevated troponin: Status: Acute (5) COVID-19: Status: Acute DS: Summary Hospital Course Hospital Course: Hpi:48-year-old male with past medical history of paroxysmal AFib, CHF, COPD, diabetes, sleep apnea? presents to the hospital with complaints of shortness of breath.? Patient reports that he has been feeling short of breath for the past 1 week, went to his PCP with the same complaint, an EKG was done in the office and he was found in AFib with RVR and asked to come to the hospital.? Patient? was in the hospital at the end of May and underwent cardioversion for his AFib and is now back in AFib with RVR.? He reports minimal cough, no sputum production, no fever or chills, he has orthopnea, PND, no lower extremity edema.? He denies any chest pain, no headache or change in vision, no abdominal pain, no nausea or vomiting, no diarrhea constipation no urinary symptoms.? On arrival to the ED patient was found to have a heart rate of 132 vitals otherwise normal Labs are significant for WBC count of 11.8, potassium 5.5, BUN of 18, creatinine of 1.38 with a baseline of 1.1, troponin of 71.5, BNP of 967, COVID-19 positive. ? Chest x-ray shows stable exam since 06/23 with redemonstration of intermediate blunting of the right? costophrenic angle and increased interstitial markings. ? Patient? started on Cardizem drip and will be admitted further? management hospital course: patient admitted for CHF exacerbation as well as COVID infection: patient started on IV diuretics, steroids, in addition: During this hospitalization-NSVT episodes on telemetry, but nothing in last 24 hrs; baseline AF,Recent echocardiogram with LVEF 15-20% and moderately dilated left atrium.?High sensitivity troponins are 71 and 41.?Cardiac catheterization 2017 showed a patent RCA stent but otherwise unremarkable coronaries. in nutshell, recurrent atrial fibrillation in spite of previous cardioversions as well as prior ablation and not tolerating Amiodarone due to thyroid dysfunction.? Suspected NSVT again in? the context of COVID infection, pre-existing cardiomyopathy.? currently cardiology recommend continuing home beta-blockers as long as the blood pressure tolerates,Do not believe troponin elevation is active ACS and most likely demand related. ? switched to p.o. diuretics upon discharge. patient's symptoms improved significantly shortness of breath- with IV diuresis as well as steroids, continue his cpap. With regard to the ventricular tachycardia, unable to use Amiodarone due to thyroid dysfunction ( we discussed with endocrine Dr Downs). Started Mexilitine. Lifevest ordered.? Eventually ICD. Discussed with , NASIMA. Once lifevest is fitted. Thyroid dysfunction:last tsh 0.1, but free t4 as wellas total t3 -all normal, so endocrinology recommended to follow up outpatient for further management. intermittent hyperkalemia: multifactorial- initially had DECLAN on CKD, also on lisinopril, will hold lisinopril for now, low potassium diet , advised Recheck BMP in 1 week with pcp. monitor BMP outpatient with PCP and Nephrology and further management out patiently- consider discussing with Nephrology before starting lisinopril. cardio may arrange their own appointment outpatient, in addition patient is to follow-up with endocrinology Dr. Downs, also nephrology follow-up outpatient. COVID infection: Seen by Pulmonary -shortness of breath seems improved so we will send patient home with his baseline home medications and dexamethasone. Above management discussed with the patient in detail length she understand and in agreement with the above plan, time spent 50 minutes and 50% time spent on counseling. Significant findings: As above. Procedures performed: None. Treatment and response: As above. Complications: None. Time Spent with Patient Time attestation: Total time spent providing and/or coordinating discharge services: Discharge coordination time: Greater than 30 minutes Quality: Stroke Does the patient have a stroke diagnosis?: No Physical Exam Vital Signs: Vital Signs: Last Vital Signs Temp 97.4 F 07/12/21 12:00 Pulse 89 07/12/21 12:00 Resp 22 H 07/12/21 12:00 BP 109/78 07/12/21 12:00 Pulse Ox 95 07/12/21 12:00 BMI result Body Mass Index 33.5 Appearance: Alert.? Oriented X3.? not in distress.? cvs:[id number] , no murmur res: clear to auscultation ,no rhonchii or wheezing abd: no rebound or guarding ,nt, bs present. ext pulses present , no cyanosis ,? Leg swelling still1+edema. neuro: axo3 , nonfocal DS: Data Data Completed and Pending Completed studies during hospitalization [Text1]: Procedures [employer] of Cardiac Rhythm, Single (06/23/21) Labs on day of discharge: Laboratory Results - last 24 hr 07/11/21 07/11/21 07/11/21 06:55 16:15 19:41 Sodium Potassium Chloride Carbon Dioxide Anion Gap BUN Creatinine Estim Creat Clear Calc Estimated GFR POC Glucose 108 132 H Random Glucose Calcium Total T3 96 07/12/21 07/12/21 07/12/21 07:03 07:24 11:56 Sodium 135 Potassium 5.7 H D Chloride 96 Carbon Dioxide 31 H Anion Gap 14 BUN 45 H Creatinine 1.36 Estim Creat Clear Calc 74.2 Estimated GFR 54 POC Glucose 245 H 300 H Random Glucose 275 H D Calcium 9.2 Total T3 Discharge Plan Discharge Patient Disposition: Home, Self-Care Discharge Diagnosis: CHF exacerbation, COVID, AFib, and nsvt Referrals: [facility] [Outside] - 1 Week Phi Crisostomo FNP-BC [Primary Care Provider] - 1 Week Kylee Argueta DO [Physician] - 1 Week (follow up outpatiently) Jim Olson MD [Physician] - 1 Week (follow up outpatiently ) Discharge Medications: New metoprolol tartrate 25 mg Tablet 25 mg PO BID Qty: 60 RF: 0 mexiletine 150 mg Capsule 150 mg PO TID Qty: 90 RF: 0 dexamethasone 6 mg Tablet 6 mg PO DAILY Qty: 7 RF: 0 Continued cholecalciferol (vitamin D3) 50 mcg (2,000 unit) capsule 50 mcg PO DAILY 90 Days Qty: 90 RF: 2 furosemide 40 mg tablet 40 mg PO BID Qty: 180 RF: 0 metformin 500 mg tablet 500 mg PO DAILY Qty: 90 RF: 0 Eliquis 5 mg tablet 5 mg PO BID 90 Days Qty: 180 RF: 3 Hold Instructions: Resume on 11/11/20. Hold Eliquois x 5 days albuterol sulfate 2.5 mg /3 mL (0.083 %) solution for nebulization 2.5 mg inhalation QID PRN (Reason: shortness of breath or wheezing) 30 Days Qty: 90 RF: 1 Incruse Ellipta 62.5 mcg/actuation blister with device 1 puff PO DAILY RF: 0 atorvastatin 40 mg tablet 40 tab PO BEDTIME RF: 0 sertraline 25 mg tablet 25 mg PO DAILY RF: 0 omeprazole 20 mg capsule,delayed release(DR/EC) 20 mg PO DAILY RF: 0 albuterol sulfate 90 mcg/actuation HFA aerosol inhaler 2 puff PO Q6H PRN (Reason: wheezing) RF: 0 Lantus Solostar U-100 Insulin 100 unit/mL (3 mL) insulin pen 40 unit subcut BEDTIME RF: 0 Jardiance 25 mg tablet 25 mg PO DAILY RF: 0 Trulicity 0.75 mg/0.5 mL pen injector 0.75 mg subcut TH RF: 0 gabapentin 300 mg capsule 300 mg PO TID RF: 0 insulin lispro [Humalog U-100 Insulin] 100 unit/mL Solution 5 unit SUBCUT TIDWM RF: 0 Held lisinopril 5 mg tablet 2.5 mg PO BID RF: 0 Hold Instructions: Resume on 07/16/21. Discharge Orders: Discharge Order (Routine); Ordered 07/12/21 Ordered By: Radha Block Diet: advance to usual diet, diabetic diet and other Activity on Discharge: As tolerated Stand Alone Forms: Patient Portal Discharge page Other Ambulatory Orders: Basic Metabolic Panel (Routine) Timeframe: 1 Week Facility: [facility] - Location: Laboratory Ordered By: Radha Block Thyroid Stimulating Hormone (Routine) Timeframe: 1 Week Facility: [facility] - Location: Laboratory Ordered By: Radha Block Care Plan Goals: patient admitted for CHF exacerbation as well as COVID infection: patient started on IV diuretics, steroids, in addition: During this hospitalization-NSVT episodes on telemetry, but nothing in last 24 hrs; baseline AF,Recent echocardiogram with LVEF 15-20% and moderately dilated left atrium.?High sensitivity troponins are 71 and 41.?Cardiac catheterization 2017 showed a patent RCA stent but otherwise unremarkable coronaries. in nutshell, recurrent atrial fibrillation in spite of previous cardioversions as well as prior ablation and not tolerating Amiodarone due to thyroid dysfunction.? Suspected NSVT again in? the context of COVID infection, pre-existing cardiomyopathy.? currently cardiology recommend continuing home beta-blockers as long as the blood pressure tolerates,Do not believe troponin elevation is active ACS and most likely demand related. ? switched to p.o. diuretics upon discharge. patient's symptoms improved significantly shortness of breath- with IV diuresis as well as steroids, continue his cpap. With regard to the ventricular tachycardia, unable to use Amiodarone due to thyroid dysfunction ( we discussed with endocrine Dr Downs). Started Mexilitine. Lifevest ordered.? Eventually ICD. Discussed with NASIMA Ruvalcaba. Once lifevest is fitted. Thyroid dysfunction:last tsh 0.1, but free t4 as wellas total t3 -all normal, so endocrinology recommended to follow up outpatient for further management. intermittent hyperkalemia: multifactorial- initially had DECLAN on CKD, also on lisinopril, will hold lisinopril for now, low potassium diet , advised Recheck BMP in 1 week with pcp. monitor BMP outpatient with PCP and Nephrology and further management out patiently- consider discussing with Nephrology before starting lisinopril. cardio may arrange their own appointment outpatient, in addition patient is to follow-up with endocrinology Dr. Downs, also nephrology follow-up outpatient. Health Concerns: As above. Plan of Treatment: As above. Assessment: As above.
[2021-07-12 15:56] LABS: Potassium 4.6 mmol/L (3.3-5.1)
--- NOTE | 2021-07-12 15:56 | P.F2F_ITS ---
Service Date Service Date: 07/12/21 Encounter Date of encounter: 07/12/21 Reasons for Services Signs and symptoms assessed: afib , nsvt,covid infection, Reason for senior care: CV/CP assess and/or care, diabetic teaching, medication management, medication treatment and teach disease management MD Overseeing Care: Phi Crisostomo Homebound: Leaving the home is medically contraindicated at this time without the asist of a device and/or another person due th the listed conditions above and below. Reason homebound: weakness related to hospital stay Homebound supporting statement: patient has generalized weakness post hospital stay and also had multiple medical issues including AFib, NSVThas LifeVest, hyperkalemia- need help with blood draws as well as appointments. Certification: Based on the above findings, I certify that this patient is confined to the home and needs intermittent senior care care, physical therapy and/or speech therapy, or continues to need occupational therapy. The patient is under my care, and I have initiated the establishment of the plan of care. The patient will be followed by a physician who will periodically review the plan of care.
--- NOTE | 2021-07-12 16:19 | MHC.CM.PN ---
Addendum entered by Patsy Glynn 07/13/21 08:35: [facility] HAS ACCEPTED PTS REFERRAL AND PTS DC SUMMARY AND FACE TO FACE WERE SENT TO THEM VIA [employer]. THEY WILL INITIATE SERVICES ON WEDNESDAY. Addendum entered by Patsy Glynn 07/12/21 16:22: CM CONTACTED [facility] AND SPOKE TO IRIS WHO INDICATED A NURSING REFERRAL SHOULD BE MADE THEIR NURSES WOULD NOT BE AVAILABLE FOR SEVERAL DAYS. SHE HAVE GIVEN VERBAL AUTH FOR [facility] SERVICES. Original Note: PT WILL DC HOME TODAY WITH [facility] PT WILL DC WITH A LIFE VEST, NEW MEDS AND REQUIRE LABS. REFERRAL PLACED TO [facility]
== END 2021-07-12 18:14 | disposition home or self-care (01) | DRG 291 ==
LOC: HO.ED 16:26 → HO.EDOVER 22:01 → HO.IMC 07-09 12:48
PROVIDERS: Admitting Provider Internal Medicine; Emergency Provider Emergency Medicine; PCP Nurse Practitioner Family; Visit Provider Internal Medicine
DX: I50.23 Acute on chronic systolic (congestive) heart failure (principal); U07.1 COVID-19; J12.82 Pneumonia due to coronavirus disease 2019; N17.9 Acute kidney failure, unspecified; J44.0 Chronic obstructive pulmonary disease with (acute) lower respiratory infection; I47.2 Ventricular tachycardia; I42.9 Cardiomyopathy, unspecified; F17.210 Nicotine dependence, cigarettes, uncomplicated; J20.9 Acute bronchitis, unspecified; I25.10 Atherosclerotic heart disease of native coronary artery without angina pectoris; E87.5 Hyperkalemia; N18.31 Chronic kidney disease, stage 3a; I48.0 Paroxysmal atrial fibrillation; E11.22 Type 2 diabetes mellitus with diabetic chronic kidney disease; E78.5 Hyperlipidemia, unspecified; E07.9 Disorder of thyroid, unspecified; Z71.6 Tobacco abuse counseling; Z79.01 Long term (current) use of anticoagulants; Z79.4 Long term (current) use of insulin; Z79.84 Long term (current) use of oral hypoglycemic drugs; Z79.899 Other long term (current) drug therapy
CPT/HCPCS: 36415; 71045; 80048; 80053; 80076; 82947; 83036; 83735; 83880; 84132; 84439; 84443; 84480; 84481; 84484; 85025; 87635; 93005; 94640; 94644; 99285; J0610; J1100; J1940; J8540

== ENCOUNTER 2021-07-19 22:16 | Inpatient (IN) | payer OTHER, SELFPAY ==
--- NOTE | ~2021-07-19 | CT_ITS ---
EXAMINATION: CT CHEST WITHOUT CONTRAST CT ABDOMEN AND PELVIS WITHOUT CONTRAST CLINICAL INFORMATION: Shortness of breath. Abdominal pain and distention. COMPARISON: 10/20/2018 TECHNIQUE: Multidetector volumetric imaging was performed through the chest, abdomen and pelvis without contrast. Sagittal and coronal reformatted images were obtained on the technologist's workstation. Axial MIP volume rendering provided. This CT examination was performed using dose optimization techniques as appropriate, variously including the following: *Automated exposure control *Adjustment of mA and/or kV according to patient size (this includes techniques or standardized protocols for targeted exams where dose is matched to indication/reason for exam; i.e. extremities or head) *Use of iterative reconstruction technique DLP: 1363 mGy-cm. FINDINGS: CHEST: Lungs: The central airways are patent. There is no dense consolidation. There is an area of atelectasis posteriorly in the right lower lobe, likely rounded atelectasis. Associated pleural thickening. Mild bronchial wall thickening noted. Linear atelectasis/scarring anteriorly in the right upper lobe. No pneumothorax. No pleural effusion. Mediastinum: The heart is enlarged. Coronary artery calcifications. There is no pericardial effusion. No hilar or mediastinal lymphadenopathy. Chest Wall/Axilla: No lymphadenopathy. No chest wall mass. ABDOMEN/PELVIS: Liver, Gallbladder, Biliary Tree: The liver is normal in size, shape, and attenuation. No focal hepatic lesion or biliary ductal dilatation is present. Small volume ascites. Contracted appearance of the gallbladder limiting evaluation. No gallstones are seen. Appearance of gallbladder wall thickening. Pancreas: Unremarkable. Spleen: Unremarkable. Adrenal Glands: Unremarkable. Kidneys and Ureters: The kidneys are normal in size, shape, and attenuation. No hydronephrosis, hydroureter or calculi seen. No perinephric stranding. Bladder: Unremarkable. Gastrointestinal Tract: The stomach is unremarkable. Normal caliber of the small bowel. There is no obstruction. There is some wall thickening suggested of the proximal jejunum. Small amount of fluid surrounding . No colonic wall thickening or acute inflammatory change. Sigmoid diverticulosis without diverticulitis. No free air. The appendix is unremarkable. Abdominal Wall: No hernia is demonstrated. Moderate anasarca. Likely prior right inguinal hernia repair. Lymphovascular Structures: Lymph nodes: No lymphadenopathy. Appearance of a vanessa mesentery . Vascular: Normal caliber aorta with mild atherosclerotic calcification. Pelvic Viscera: The prostate and seminal vesicles are unremarkable. OSSEOUS STRUCTURES: No suspicious sclerotic or lytic bone lesions are identified. Degenerative changes throughout the spine. Moderate degenerative changes of the hips. CT/CT abdomen pelvis wo con IMPRESSION: 1. Chronic changes of the right lung base with rounded atelectasis and pleural thickening. Bronchial wall thickening can be seen with a small airways process such as asthma or atypical/viral infection. 2. Small volume ascites noted. Contracted gallbladder with suggestion of wall thickening. This is nonspecific. 3. Suggestion of mild wall thickening of the proximal jejunum. This could represent enteritis.
--- NOTE | ~2021-07-19 | XR_ITS ---
EXAMINATION: XR CHEST CLINICAL INFORMATION: Shortness of breath COMPARISON: 07/11/2021 TECHNIQUE: Frontal view of the chest was obtained. FINDINGS: The lungs are well expanded. Blunting at the right costophrenic angle. Hazy opacity at the right base. No pneumothorax. No edema. The cardiomediastinal silhouette is within normal limits. XR/XR chest 1V IMPRESSION: Blunting of the right costophrenic angle is suspicious for small pleural effusion. Hazy right basilar opacity may be infectious or inflammatory.
[2021-07-19 22:28] VITALS: BP 95/79; PULSE 115; RESP 27; TEMP 37; O2SAT 95; BMI 38.3
[2021-07-19 22:48] LABS: MANUAL DIFF FLAG NO
[2021-07-19 22:50] LABS: Basophils Percent Auto 0.1 % (0-2); Eosinophils Percent Auto 0.1 % (0-4); Hematocrit 52.4 % (42.0-52.0); Hemoglobin 16.7 g/dl (14.0-18.0); Imm Gran Abs Auto 0.21 X10*3/uL (0.00-0.03); Lymphocytes Absolute Auto 1.9 X10*3/uL (1.2-4.9); Lymphocytes Percent Auto 9.2 % (20-40); Mean Corpuscular HGB Conc 31.9 g/dl (31.0-36.0); Mean Corpuscular Hemoglobin 27.9 pg (27.0-33.0); Mean Corpuscular Volume 87.5 fL (80.0-98.0); Mean Platelet Volume 10.5 fL (9.4-12.4); Monocytes Absolute Auto 1.3 X10*3/uL (0.1-1.2); Monocytes Percent Auto 6.1 % (2-11); Neutrophils Absolute Auto 17.5 x10*3/uL (2.0-8.3); Neutrophils Percent Auto 83.5 % (45-73); Platelet Count 294 X10*3/uL (160-400); Red Blood Count 5.99 X10*6/uL (4.60-5.80)
[2021-07-19 23:04] LABS: COVID-19 Test Negative (Negative); IDNOW Serial# 55D5AD1C
[2021-07-19 23:09] LABS: B Type Natriuretic Peptide 2487 pg/mL (<100)
[2021-07-19 23:11] LABS: Anion Gap 13 (12-20); Blood Urea Nitrogen 39 mg/dL (9-16); Calcium 9.1 mg/dL (8.4-10.2); Carbon Dioxide 24 mmol/L (22-29); Chloride 97 mmol/L (96-108); Estimated Glomerular Filt Rate 43; Glucose Random 511 mg/dL (60-115); Potassium 5.4 mmol/L (3.3-5.1); Sodium 129 mmol/L (135-145)
--- NOTE | 2021-07-19 23:53 | ED_ITS ---
HPI - SOB/Dyspnea General Chief Complaint: Dyspnea Stated Complaint: sob ,leg are swollen Time Seen by Provider: 07/19/21 23:53 Source: patient Mode of arrival: ambulatory History of Present Illness HPI Narrative: 56-year-old male with history of recent COVID-19 infection, DECLAN, CHF (systolic), atrial fibrillation and currently has a LifeVest with plans for ICD. Patient presents with significant worsening shortness of breath for the past 3 days that has been associated with increased swelling in bilateral legs as well as abdomen and reporting of 30 lb weight increase. Currently, patient is denying any chest pain. Related Data Home Medications Medication Instructions Recorded Confirmed umeclidinium 62.5 mcg/actuation 1 puff PO DAILY 10/30/20 07/07/21 blister powder for inhalation (Incruse Ellipta) albuterol sulfate 90 mcg/actuation 2 puff PO Q6H PRN 06/23/21 07/07/21 aerosol inhaler dulaglutide 0.75 mg/0.5 mL 0.75 mg SUBCUT TH 06/23/21 07/07/21 subcutaneous pen injector (Trulicity) empagliflozin 25 mg tablet 25 mg PO DAILY 06/23/21 07/07/21 (Jardiance) insulin glargine 100 unit/mL (3 40 unit SUBCUT BEDTIME 06/23/21 07/07/21 mL) subcutaneous pen (Lantus Solostar U-100 Insulin) lisinopril 5 mg tablet 2.5 mg PO BID 06/23/21 07/07/21 sertraline 25 mg tablet 25 mg PO DAILY 06/23/21 07/07/21 gabapentin 300 mg capsule 300 mg PO TID 06/24/21 07/07/21 insulin lispro 100 unit/mL 5 unit SUBCUT TIDWM 07/07/21 07/07/21 subcutaneous solution (Humalog U-100 Insulin) Previous Rx's Medication Instructions Recorded cholecalciferol (vitamin D3) 50 50 mcg PO DAILY 90 Days #90 cap 05/08/20 mcg (2,000 unit) capsule furosemide 40 mg tablet 40 mg PO BID #180 tab 01/14/21 metformin 500 mg tablet 500 mg PO DAILY #90 tab 04/14/21 apixaban 5 mg tablet (Eliquis) 5 mg PO BID 90 Days #180 tab 04/18/21 albuterol sulfate 2.5 mg (3 mL) INHALATION QID PRN 06/26/21 30 Days #90 ml dexamethasone 6 mg tablet 6 mg PO DAILY #7 tab 07/12/21 metoprolol tartrate 25 mg tablet 25 mg PO BID #60 tab 07/12/21 mexiletine 150 mg capsule 150 mg PO TID #90 cap 07/12/21 atorvastatin 40 mg tablet 40 mg PO BEDTIME 90 Days #90 tab 07/15/21 omeprazole 20 mg capsule,delayed 20 mg PO DAILY 90 Days #90 cap 07/15/21 release Allergies Allergy/AdvReac Type Severity Reaction Status Date / Time No Known Allergies Allergy Verified 07/19/21 22:28 [No Known Allergies*] Review of Systems Review of Systems: Pertinent positives and negatives as stated in HPI 10 point review of systems is otherwise negative. [facility] Past Medical History Medical History Afib CAD (coronary artery disease) Cardiomyopathy CHF (congestive heart failure) COPD (chronic obstructive pulmonary disease) COPD (chronic obstructive pulmonary disease) COVID-19 Diabetes Diabetes mellitus type 2, uncontrolled Heart failure with reduced ejection fraction History of cardioversion KIMANI (obstructive sleep apnea) Paroxysmal atrial fibrillation Pneumonia due to COVID-19 virus Sleep apnea Sleep apnea Smoker Surgical History H/O heart artery stent History of cardiac radiofrequency ablation History of esophagogastroduodenoscopy History of fracture of leg History of inguinal hernia History of umbilical hernia Hx of colonoscopy Family History Family History Father Atherosclerosis Mother Cerebral aneurysm Maternal Grandmother Unknown family medical history Mother Cerebral hemorrhage Father Coronary artery disease Social History Social History Household Members: Significant Other Housing: House Do you presently have visiting nurse or other home services: No Alcohol intake: former Patient Tobacco Use Status: Former Tobacco user Tobacco use type: Cigarette Cigarettes Per Day: 10 Years Smoked: 46 Smoked in Last 30 Days: No e-Cigarette/Vaping Use: Former Use Second Hand Smoke Exposure: Yes Use of substances other than those prescribed or required for medical reasons: No Advance Directives: No Advance Directives Information Provided: No service: No Current occupational status: unemployed and disabled Current occupation: rt handed Physical Exam Vital Signs: Vital Signs: Last Vital Signs Temp 98.6 F 07/19/21 22:28 Pulse 96 07/20/21 02:00 Resp 20 07/20/21 01:07 BP 100/50 L 07/20/21 02:00 Pulse Ox 96 07/20/21 02:00 BMI result Body Mass Index 38.3 VITAL SIGNS: Reviewed. GENERAL: Well developed, well nourished, in no acute distress. HEAD: Normocephalic/atraumatic EYES: PERRLA, EOMI OROPHARYNX: no oral lesions noted, posterior pharynx clear NECK: Supple, no adenopathy LUNGS: Normal breath sounds. No adventitious sounds or accessory muscle use. SpO2<96> CARDIOVASCULAR: Regular rate and rhythm without noted murmurs, no JVD but has bilateral lower extremity pitting edema ABDOMEN: Obese, Soft, non-tender, non-distended with bowel sounds, anasarca MUSCULOSKELETAL: No tenderness, deformities, or effusions noted on gross inspection. EXTREMITIES: No cyanosis, clubbing or edema. SKIN: Inspection of the skin reveals no rashes NEUROLOGIC: Alert and oriented x 4. Strength and sensation to light touch were grossly intact x 4. Course Course Course Narrative: 56-year-old male with history and clinical presentation consistent with systolic dysfunction and recently placed on life vest with plans for ICD, EF 15-20% on review of all investigations consistent with CHF exacerbation with tachypnea, worsening bilateral lower extremity edema, elevated BNP, rales on auscultation, but no hypoxia. VBG and chest x-ray findings not consistent with COPD exacerbation. Patient given Lasix for diuresis, remains tachypneic and noncontrast CT scan of the chest/abdomen/pelvis demonstrates residual pattern viral infection. Abdomen with small volume of ascites but otherwise nothing significant that would explain degree of shortness of breath with tachypnea. The noted leukocytosis is consistent with patient being on steroids as patient is otherwise afebrile and no obvious source of infection. On re-evaluation patient's point of care has decreased and no indication to administer lispro SQ at this time. All results and findings discussed with patient at bedside. This case was discussed with the inpatient hospitalist who accepts admission. MDM - SOB/Dyspnea Lab Data Result diagrams: 07/19/21 22:39 07/20/21 03:44 Labs: Lab Results 07/19/21 07/19/21 07/19/21 Range/Units 22:37 22:38 22:38 WBC (4.8-10.8) X10*3/uL RBC (4.60-5.80) X10*6/uL Hgb (14.0-18.0) g/dl Hct (42.0-52.0) % MCV (80.0-98.0) fL MCH (27.0-33.0) pg MCHC (31.0-36.0) g/dl RDW (11.0-16.0) % Plt Count (160-400) X10*3/uL MPV (9.4-12.4) fL Immature Gran % (Auto) (0.0-0.4) % Neut % (Auto) (45-73) % Lymph % (Auto) (20-40) % Divide % (Auto) (2-11) % Eos % (Auto) (0-4) % Baso % (Auto) (0-2) % Lymph # (Auto) (1.2-4.9) X10*3/uL Divide # (Auto) (0.1-1.2) X10*3/uL Eos # (Auto) (0.0-0.4) X10*3/uL Baso # (Auto) (0.0-0.2) X10*3/uL Abs Immat Gran (auto) (0.00-0.03) X10*3/uL Absolute Neuts (auto) (2.0-8.3) x10*3/uL Absolute Nucleated RBC (0.0-0.012) X10*3/uL Nucleated RBC % (auto) (0.0-0.2) /100WBC VBG pH (7.32-7.43) VBG pCO2 mmHg VBG pO2 mmHg VBG HCO3 (22-26) mmol/L VBG O2 Saturation % VBG Base Excess mmol/L Sodium 129 L (135-145) mmol/L Potassium 5.4 H (3.3-5.1) mmol/L Chloride 97 (96-108) mmol/L Carbon Dioxide 24 (22-29) mmol/L Anion Gap 13 (12-20) BUN 39 H (9-16) mg/dL Creatinine 1.64 H (0.5-1.4) mg/dL Estim Creat Clear Calc 66.0 Estimated GFR 43 POC Glucose (60-115) mg/dL Random Glucose 511 H* (60-115) mg/dL Calcium 9.1 (8.4-10.2) mg/dL B-Natriuretic Peptide 2487 H (<100) pg/mL COVID-19 ([facility]) Negative (Negative) COVID-19 Clin Com See Note 07/19/21 07/20/21 07/20/21 Range/Units 22:39 02:26 03:31 WBC 21.0 H (4.8-10.8) X10*3/uL RBC 5.99 H (4.60-5.80) X10*6/uL Hgb 16.7 (14.0-18.0) g/dl Hct 52.4 H (42.0-52.0) % MCV 87.5 (80.0-98.0) fL MCH 27.9 (27.0-33.0) pg MCHC 31.9 (31.0-36.0) g/dl RDW 16.0 (11.0-16.0) % Plt Count 294 (160-400) X10*3/uL MPV 10.5 (9.4-12.4) fL Immature Gran % (Auto) 1.0 H (0.0-0.4) % Neut % (Auto) 83.5 H (45-73) % Lymph % (Auto) 9.2 L (20-40) % Divide % (Auto) 6.1 (2-11) % Eos % (Auto) 0.1 (0-4) % Baso % (Auto) 0.1 (0-2) % Lymph # (Auto) 1.9 (1.2-4.9) X10*3/uL Divide # (Auto) 1.3 H (0.1-1.2) X10*3/uL Eos # (Auto) 0.0 (0.0-0.4) X10*3/uL Baso # (Auto) 0.0 (0.0-0.2) X10*3/uL Abs Immat Gran (auto) 0.21 H (0.00-0.03) X10*3/uL Absolute Neuts (auto) 17.5 H (2.0-8.3) x10*3/uL Absolute Nucleated RBC 0.000 (0.0-0.012) X10*3/uL Nucleated RBC % (auto) 0.0 (0.0-0.2) /100WBC VBG pH 7.38 (7.32-7.43) VBG pCO2 38 mmHg VBG pO2 50 mmHg VBG HCO3 22 (22-26) mmol/L VBG O2 Saturation 80.0 % VBG Base Excess -1.7 mmol/L Sodium (135-145) mmol/L Potassium (3.3-5.1) mmol/L Chloride (96-108) mmol/L Carbon Dioxide (22-29) mmol/L Anion Gap (12-20) BUN (9-16) mg/dL Creatinine (0.5-1.4) mg/dL Estim Creat Clear Calc Estimated GFR POC Glucose 258 H (60-115) mg/dL Random Glucose (60-115) mg/dL Calcium (8.4-10.2) mg/dL B-Natriuretic Peptide (<100) pg/mL COVID-19 ([facility]) (Negative) COVID-19 Clin Com 07/20/21 Range/Units 03:44 WBC (4.8-10.8) X10*3/uL RBC (4.60-5.80) X10*6/uL Hgb (14.0-18.0) g/dl Hct (42.0-52.0) % MCV (80.0-98.0) fL MCH (27.0-33.0) pg MCHC (31.0-36.0) g/dl RDW (11.0-16.0) % Plt Count (160-400) X10*3/uL MPV (9.4-12.4) fL Immature Gran % (Auto) (0.0-0.4) % Neut % (Auto) (45-73) % Lymph % (Auto) (20-40) % Divide % (Auto) (2-11) % Eos % (Auto) (0-4) % Baso % (Auto) (0-2) % Lymph # (Auto) (1.2-4.9) X10*3/uL Divide # (Auto) (0.1-1.2) X10*3/uL Eos # (Auto) (0.0-0.4) X10*3/uL Baso # (Auto) (0.0-0.2) X10*3/uL Abs Immat Gran (auto) (0.00-0.03) X10*3/uL Absolute Neuts (auto) (2.0-8.3) x10*3/uL Absolute Nucleated RBC (0.0-0.012) X10*3/uL Nucleated RBC % (auto) (0.0-0.2) /100WBC VBG pH (7.32-7.43) VBG pCO2 mmHg VBG pO2 mmHg VBG HCO3 (22-26) mmol/L VBG O2 Saturation % VBG Base Excess mmol/L Sodium 131 L (135-145) mmol/L Potassium 4.5 (3.3-5.1) mmol/L Chloride 100 (96-108) mmol/L Carbon Dioxide 22 (22-29) mmol/L Anion Gap 14 (12-20) BUN 40 H (9-16) mg/dL Creatinine 1.37 (0.5-1.4) mg/dL Estim Creat Clear Calc 79.0 Estimated GFR 53 POC Glucose (60-115) mg/dL Random Glucose 266 H D (60-115) mg/dL Calcium 8.7 (8.4-10.2) mg/dL B-Natriuretic Peptide (<100) pg/mL COVID-19 ([facility]) (Negative) COVID-19 Clin Com ECG Data Attestation: I personally reviewed and interpreted this ECG as follows: Prior ECG tracings: available for review Interpretation: Atrial fibrillation, HR-103, no STEMI, QTC within normal limits. There are no changes when compared to prior Critical Care Time Critical Care Time Critical Care Time: Yes Total Critical Care Time: 30 Attestation: I personally attest to this time spent taking care of the patient. Discharge Plan Discharge Clinical Impression: Atrial fibrillation, CHF exacerbation, DECLAN (acute kidney injury), Hyperglycemia Patient Disposition: Admitted As Inpatient Prescriptions: No Action cholecalciferol (vitamin D3) 50 mcg (2,000 unit) capsule 50 mcg PO DAILY 90 Days Qty: 90 RF: 2 furosemide 40 mg tablet 40 mg PO BID Qty: 180 RF: 0 metformin 500 mg tablet 500 mg PO DAILY Qty: 90 RF: 0 Eliquis 5 mg tablet 5 mg PO BID 90 Days Qty: 180 RF: 3 Hold Instructions: Resume on 11/11/20. Hold Eliquois x 5 days albuterol sulfate 2.5 mg /3 mL (0.083 %) solution for nebulization 2.5 mg inhalation QID PRN (Reason: shortness of breath or wheezing) 30 Days Qty: 90 RF: 1 atorvastatin 40 mg tablet 40 mg PO BEDTIME 90 Days Qty: 90 RF: 0 omeprazole 20 mg capsule,delayed release(DR/EC) 20 mg PO DAILY 90 Days Qty: 90 RF: 0 Incruse Ellipta 62.5 mcg/actuation blister with device 1 puff PO DAILY RF: 0 sertraline 25 mg tablet 25 mg PO DAILY RF: 0 lisinopril 5 mg tablet 2.5 mg PO BID RF: 0 Hold Instructions: Resume on 07/16/21. albuterol sulfate 90 mcg/actuation HFA aerosol inhaler 2 puff PO Q6H PRN (Reason: wheezing) RF: 0 Lantus Solostar U-100 Insulin 100 unit/mL (3 mL) insulin pen 40 unit subcut BEDTIME RF: 0 Jardiance 25 mg tablet 25 mg PO DAILY RF: 0 Trulicity 0.75 mg/0.5 mL pen injector 0.75 mg subcut TH RF: 0 gabapentin 300 mg capsule 300 mg PO TID RF: 0 insulin lispro [Humalog U-100 Insulin] 100 unit/mL Solution 5 unit SUBCUT TIDWM RF: 0 dexamethasone 6 mg Tablet 6 mg PO DAILY Qty: 7 RF: 0 mexiletine 150 mg Capsule 150 mg PO TID Qty: 90 RF: 0 metoprolol tartrate 25 mg Tablet 25 mg PO BID Qty: 60 RF: 0
--- NOTE | 2021-07-19 23:54 | ECG_ITS ---
Test Reason : swelling Blood Pressure : / mmHG Vent. Rate : 103 BPM Atrial Rate : 000 BPM P-R Int : 000 ms QRS Dur : 112 ms QT Int : 348 ms P-R-T Axes : 000 031 120 degrees QTc Int : 455 ms Atrial fibrillation with rapid ventricular response Septal infarct (cited on or before 16-AUG-2018) Lateral infarct (cited on or before 16-AUG-2018) Abnormal ECG When compared with ECG of 11-JUL-2021 12:46, No significant change was found Referred By: Roopa Hand Electronically Signed By:Jaspreet Montoya
[2021-07-20] VITALS (7 sets, daily range): BP systolic 90–121; BP diastolic 50–76; PULSE 96–114; RESP 16–20; TEMP 36.4–36.6; O2SAT 95–98
[2021-07-20] MEDS: Furosemide 100 MG/10 ML VIAL 80 MG IVPUSH (00:24)
[2021-07-20] MEDS: Furosemide 40 MG/4 ML VIAL IVPUSH (02:20)
[2021-07-20 02:30] LABS: Venous Blood Gas Refer to POC result
[2021-07-20 02:33] LABS: VBG Base Excess -1.7 mmol/L; VBG HCO3 22 mmol/L (22-26); VBG pCO2 38 mmHg; VBG pH 7.38 (7.32-7.43); VBG pO2 50 mmHg
--- NOTE | 2021-07-20 02:45 | PC.NURSE ---
pt returned from rad,
[2021-07-20 03:38] LABS: Glucose, Whole Blood 258 mg/dL (60-115)
--- NOTE | 2021-07-20 03:38 | PC.NURSE ---
pt poc 258 lispro 5 units sc not to be given per dr castillo.
[2021-07-20 04:07] LABS: Anion Gap 14 (12-20); Blood Urea Nitrogen 40 mg/dL (9-16); Calcium 8.7 mg/dL (8.4-10.2); Carbon Dioxide 22 mmol/L (22-29); Chloride 100 mmol/L (96-108); Estimated Glomerular Filt Rate 53; Glucose Random 266 mg/dL (60-115); Potassium 4.5 mmol/L (3.3-5.1); Sodium 131 mmol/L (135-145)
--- NOTE | 2021-07-20 05:22 | MHC.MBSS ---
urine output 1000ml
--- NOTE | 2021-07-20 08:38 | P.HPHOSP_ITS ---
History of Present Illness Date of Service: 07/20/21 Chief Complaint: Shortness of breath, and anasarca ? 48-year-old male with past medical history of paroxysmal AFib on eliquis, CKD2- 3 stable, CHF with LVEF 15-20% and moderately dilated left atrium, COPD, diabetes, sleep apnea uses CPAP. He was recently admitted to the hospital for exacerbation of heart failure from 07/07 to 07/12 and at that time had NSVTs and was equiped with lifevest with eventual plan to have a permanent AICD. He return to complaining of return of shortnesss and marked anascarcanand massive weight gain since he recently left the hospital--?thinks he has gained an excess of 30 pound or more and obviously suffering from PND and orthopnea, BNP level is over 2000 compare to less than a 1000 during last admission. I reviewed CXR which s hows some cephalization. Clinical diagnosis of CHF is established and he is prescribed IV Lasix in the ED. Review of Systems Review of Systems: Gen: no fever Resp: + sob, no cough CV: no chest, + ALLEN, + leg edema GI: No n/v, no abd pain Neuro: No confusion Yes all other systems are reviewed and are negative [facility] Medical History Afib CAD (coronary artery disease) Cardiomyopathy CHF (congestive heart failure) COPD (chronic obstructive pulmonary disease) COPD (chronic obstructive pulmonary disease) COVID-19 Diabetes Diabetes mellitus type 2, uncontrolled Heart failure with reduced ejection fraction History of cardioversion KIMANI (obstructive sleep apnea) Paroxysmal atrial fibrillation Pneumonia due to COVID-19 virus Sleep apnea Sleep apnea Smoker Family History Father Atherosclerosis Mother Cerebral aneurysm Maternal Grandmother Unknown family medical history Mother Cerebral hemorrhage Father Coronary artery disease Surgical History H/O heart artery stent History of cardiac radiofrequency ablation History of esophagogastroduodenoscopy History of fracture of leg History of inguinal hernia History of umbilical hernia Hx of colonoscopy Social History Household Members: Significant Other Housing: House Do you presently have visiting nurse or other home services: No Alcohol intake: former Patient Tobacco Use Status: Former Tobacco user Tobacco use type: Cigarette Cigarettes Per Day: 10 Years Smoked: 46 Smoked in Last 30 Days: No e-Cigarette/Vaping Use: Former Use Second Hand Smoke Exposure: Yes Use of substances other than those prescribed or required for medical reasons: No Advance Directives: No Advance Directives Information Provided: No service: No Current occupational status: unemployed and disabled Current occupation: rt handed Meds Allergies Allergy/AdvReac Type Severity Reaction Status Date / Time No Known Allergies Allergy Verified 07/19/21 22:28 [No Known Allergies*] Home Medications Medication Instructions Recorded Confirmed Last Taken Type umeclidinium 62.5 mcg/actuation 1 puff PO DAILY 10/30/20 07/20/21 07/19/21 History blister powder for inhalation (Incruse Ellipta) albuterol sulfate 90 mcg/actuation 2 puff PO Q6H PRN 06/23/21 07/20/21 Unknown History aerosol inhaler dulaglutide 0.75 mg/0.5 mL 0.75 mg SUBCUT KELLEY@0900 06/23/21 07/20/21 07/13/21 History subcutaneous pen injector (Trulicity) empagliflozin 25 mg tablet 25 mg PO DAILY 06/23/21 07/20/21 07/19/21 History (Jardiance) insulin glargine 100 unit/mL (3 40 unit SUBCUT BEDTIME 06/23/21 07/20/21 07/19/21 History mL) subcutaneous pen (Lantus Solostar U-100 Insulin) lisinopril 5 mg tablet 2.5 mg PO BID 06/23/21 07/20/21 07/19/21 History sertraline 25 mg tablet 25 mg PO DAILY 06/23/21 07/20/21 07/19/21 History gabapentin 300 mg capsule 300 mg PO TID 06/24/21 07/20/21 07/19/21 History insulin lispro 100 unit/mL 5 unit SUBCUT TIDWM 07/07/21 07/20/21 07/19/21 History subcutaneous solution (Humalog U-100 Insulin) omeprazole 20 mg capsule,delayed 20 mg PO DAILY@0630 07/20/21 07/20/21 07/19/21 History release Physical Exam Vital Signs and Narrative: Vital Signs: Last Vital Signs Temp 98.6 F 07/19/21 22:28 Pulse 102 H 07/20/21 06:24 Resp 20 07/20/21 06:24 BP 117/66 07/20/21 06:24 Pulse Ox 97 07/20/21 06:24 BMI result Body Mass Index 38.3 Const: Other: Constitutional: Alert, in no distress, overweight. Mental Status: Oriented to person, place and time. Eyes: Pupils are equal, round and reactive to light. Ear, Nose and Throat: Oropharynx clear, mucous membranes moist. Ears and nose without eformities. Trachea midline. Respiratory: Clear to auscultation. No wheezing, rales at basesi. Cardiovascular: S1 S2 ireregularly ireguar. No murmurs, rubs or gallops. Marked edema from legs all the way to abdomen Gastrointestinal: Abdomen soft, non-tender, non-distended. Normal bowel sounds.? Neurologic: Cranial nerves II-XII grossly intact. No focal neurological deficits. Moves all extremities spontaneously.? Skin: No rashes or lesions.? Musculoskeletal: No cyanosis or clubbing. Psychiatric: Normal mood and affect?, anxious, frustrated Results Labs CBC and Chem 7: 07/19/21 22:39 07/21/21 07:27 Labs: Laboratory Results - last 24 hr 07/19/21 07/19/21 07/19/21 22:37 22:38 22:38 MCV MCH MCHC RDW Plt Count MPV Immature Gran % (Auto) Neut % (Auto) Lymph % (Auto) Fountain % (Auto) Eos % (Auto) Baso % (Auto) Lymph # (Auto) Fountain # (Auto) Eos # (Auto) Baso # (Auto) Abs Immat Gran (auto) Absolute Neuts (auto) Absolute Nucleated RBC Nucleated RBC % (auto) VBG pH VBG pCO2 VBG pO2 VBG HCO3 VBG O2 Saturation VBG Base Excess Anion Gap 13 Estim Creat Clear Calc 66.0 Estimated GFR 43 POC Glucose Random Glucose 511 H* Calcium 9.1 B-Natriuretic Peptide 2487 H COVID-19 (NIXON) Negative COVID-19 Clin Com See Note 07/19/21 07/20/21 07/20/21 22:39 02:26 03:31 MCV 87.5 MCH 27.9 MCHC 31.9 RDW 16.0 Plt Count 294 MPV 10.5 Immature Gran % (Auto) 1.0 H Neut % (Auto) 83.5 H Lymph % (Auto) 9.2 L Fountain % (Auto) 6.1 Eos % (Auto) 0.1 Baso % (Auto) 0.1 Lymph # (Auto) 1.9 Fountain # (Auto) 1.3 H Eos # (Auto) 0.0 Baso # (Auto) 0.0 Abs Immat Gran (auto) 0.21 H Absolute Neuts (auto) 17.5 H Absolute Nucleated RBC 0.000 Nucleated RBC % (auto) 0.0 VBG pH 7.38 VBG pCO2 38 VBG pO2 50 VBG HCO3 22 VBG O2 Saturation 80.0 VBG Base Excess -1.7 Anion Gap Estim Creat Clear Calc Estimated GFR POC Glucose 258 H Random Glucose Calcium B-Natriuretic Peptide COVID-19 (NIXON) COVID-Spot Coffee 07/20/21 03:44 MCV MCH MCHC RDW Plt Count MPV Immature Gran % (Auto) Neut % (Auto) Lymph % (Auto) Fountain % (Auto) Eos % (Auto) Baso % (Auto) Lymph # (Auto) Fountain # (Auto) Eos # (Auto) Baso # (Auto) Abs Immat Gran (auto) Absolute Neuts (auto) Absolute Nucleated RBC Nucleated RBC % (auto) VBG pH VBG pCO2 VBG pO2 VBG HCO3 VBG O2 Saturation VBG Base Excess Anion Gap 14 Estim Creat Clear Calc 79.0 Estimated GFR 53 POC Glucose Random Glucose 266 H D Calcium 8.7 B-Natriuretic Peptide COVID-19 (NIXON) COVID-19 Clin Com Imaging Radiologist's Impressions: Impressions Chest X-Ray 07/19/21 23:25 IMPRESSION: Blunting of the right costophrenic angle is suspicious for small pleural effusion. Hazy right basilar opacity may be infectious or inflammatory. Abdomen/Pelvis CT 07/20/21 02:48 IMPRESSION: 1. Chronic changes of the right lung base with rounded atelectasis and pleural thickening. Bronchial wall thickening can be seen with a small airways process such as asthma or atypical/viral infection. 2. Small volume ascites noted. Contracted gallbladder with suggestion of wall thickening. This is nonspecific. 3. Suggestion of mild wall thickening of the proximal jejunum. This could represent enteritis. Chest CT 07/20/21 02:48 IMPRESSION: 1. Chronic changes of the right lung base with rounded atelectasis and pleural thickening. Bronchial wall thickening can be seen with a small airways process such as asthma or atypical/viral infection. 2. Small volume ascites noted. Contracted gallbladder with suggestion of wall thickening. This is nonspecific. 3. Suggestion of mild wall thickening of the proximal jejunum. This could represent enteritis. Assessment and Plan (1) Atrial fibrillation: Status: Acute (2) DECLAN (acute kidney injury): Status: Acute (3) Acute on chronic systolic (congestive) heart failure: Status: Acute 48-year-old male with past medical history of paroxysmal AFib, CKD2, 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 He was recently admitted to the hospital for exacerbation of heart failure from 07/07 to 07/12 and at that time had NSVTs and was equiped with lifevest with eventual plan to have a permanent AICD. He return to complaining of return of shortnesss and marked anascarcanand massive weight gain since he recently left the hospital--?thinks he has gained an excess of 30 and is being readmitted for florid CHF. 1/Acute on chronic systolic CHF with massive fluid build up and weight gain. -Start Lasix drip -Cardiology consulation -hold BB for now -Monitor electrolytes -Continue KIM and monitor Creatinine -follow I/o, weight, avoid salt -Consider andrews for acurate I/O 2/ AFIB--ask cardiology if ok to restart metoprolol -continue Eliquis 3/Diabetes--hold metformin, SSI 4/CKD 2-3, stable, but hold Metformin 5/KIMANI, CPAP to sleep 6/Neuropaty--Gabapentin 7/NSVT--Check mag, continue Lifevest 8/HypOnatremia--d/t heart failure, should normalized with treatment for heart f ailure DVT P: [place], Full code Quality Stroke Does the patient have a stroke diagnosis?: No VTE Prior VTE?: No VTE Risk Level:: Medical - moderate - high VTE Device Contraindication: Treatment Not Indicated VTE Drug Contraindication: N/A - Med Ordered
--- NOTE | 2021-07-20 08:47 | PHA.MEDREC ---
Pharmacy Consult ? Medication Reconciliation Pharmacy has completed the medication reconciliation Spoke with patient in ED.
--- NOTE | 2021-07-20 08:54 | PC.NURSE ---
report taken from previous shift rn first contact w this rn this am pt appears calm, in no apparent distress. offers no new complaints. awaiting inpt admission. @0855 pt all of a sudden screaming at pct, asking to take fucking iv out of my arm, now! . provider aware, iv removed. pt getting dressed. provider asking if this rn can check o2 sat, pt smacking o2 sat out of this rn hand when asking if it can be checked. provider at bedside.
[2021-07-20] MEDS: Sertraline HCL 25 MG TABLET PO (10:07)
[2021-07-20] MEDS: Gabapentin 300 MG CAPSULE PO ×3 (10:08→20:16)
[2021-07-20] MEDS: Acetaminophen 325 MG TABLET 650 MG PO (10:08)
[2021-07-20] MEDS: Apixaban 5 MG TABLET PO ×2 (10:08→20:15)
[2021-07-20] MEDS: ondansetron HCL 4 MG/2 ML VIAL IVPUSH (10:08)
[2021-07-20] MEDS: Omeprazole 20 MG CAPSULE.DR PO (10:08)
[2021-07-20] MEDS: Furosemide 200 MG in 0.9 % Sodium Chloride 80 ML IVCONT (10:09)
[2021-07-20] MEDS: Morphine Sulfate 2 MG/ML CARTRIDGE IVPUSH ×3 (10:09→21:30)
--- NOTE | 2021-07-20 11:13 | PM.CNCAR ---
History of Present Illness History of Present Illness Date of Service: 07/20/21 Requesting physician: Gianni Dave Chief complaint: Heart Failure Narrative: 56-year-old gentleman who is presenting for shortness of breath and volume overload. He has been admitted twice since May. In May he presented with congestive heart failure with ejection fraction which was severely reduced and atrial fibrillation with rapid ventricular response. He underwent cardioversion at that stage and was discharged home. Early June presented again with congestive heart failure and was found to be COVID positive. He also had nonsustained ventricular tachycardia and was given life vest. He was also started on mexiletine. It appears he did not start legs during inside the hospital and started few days later. After that he had progressive edema and shortness of breath and came to the hospital. He is saying he has been drinking lot of water. He has gained significant weight in the last week or so. Is saying is taking his medication but he has not noticed any change in his urine output. [facility] Past Medical History Medical History Afib CAD (coronary artery disease) Cardiomyopathy CHF (congestive heart failure) COPD (chronic obstructive pulmonary disease) COPD (chronic obstructive pulmonary disease) COVID-19 Diabetes Diabetes mellitus type 2, uncontrolled Heart failure with reduced ejection fraction History of cardioversion KIMANI (obstructive sleep apnea) Paroxysmal atrial fibrillation Pneumonia due to COVID-19 virus Sleep apnea Sleep apnea Smoker Family History Family History Father Atherosclerosis Mother Cerebral aneurysm Maternal Grandmother Unknown family medical history Mother Cerebral hemorrhage Father Coronary artery disease Surgical History Surgical History H/O heart artery stent History of cardiac radiofrequency ablation History of esophagogastroduodenoscopy History of fracture of leg History of inguinal hernia History of umbilical hernia Hx of colonoscopy Social History Social History Household Members: Significant Other Housing: House Do you presently have visiting nurse or other home services: No Alcohol intake: former Patient Tobacco Use Status: Former Tobacco user Tobacco use type: Cigarette Cigarettes Per Day: 10 Years Smoked: 46 Smoked in Last 30 Days: No e-Cigarette/Vaping Use: Former Use Second Hand Smoke Exposure: Yes Use of substances other than those prescribed or required for medical reasons: No Advance Directives: No Advance Directives Information Provided: No service: No Current occupational status: unemployed and disabled Current occupation: rt handed Meds Allergies Allergy/AdvReac Type Severity Reaction Status Date / Time No Known Allergies Allergy Verified 07/19/21 22:28 [No Known Allergies*] Active Medications: Current Medications Acetaminophen (Acetaminophen 325 Mg Tablet) 650 mg PO Q6H PRN PRN Reason: Pain, Mild (Pain Scale 1-3) Last Admin: 07/20/21 10:08 Dose: 650 mg Documented by: Albuterol Sulfate (Albuterol Sulfate (0.083%) 2.5 Mg/3 Ml Vial.Neb) 2.5 mg INHALE QID PRN PRN Reason: shortness of breath or wheezing Albuterol Sulfate (Albuterol Sulfate 90 Mcg 8 Gm Inhaler) 2 puff INHALE Q6H PRN PRN Reason: wheezing Apixaban (Apixaban 5 Mg Tablet) 5 mg PO BID [facility] Last Admin: 07/20/21 10:08 Dose: 5 mg Documented by: Atorvastatin Calcium (Atorvastatin Calcium 40 Mg Tablet) 40 mg PO BEDTIME MARILEE Gabapentin (Gabapentin 300 Mg Capsule) 300 mg PO TID [facility] Last Admin: 07/20/21 10:08 Dose: 300 mg Documented by: Furosemide 200 mg/ Sodium (Chloride) 100 mls @ 5 mls/hr IVCONT .Q20H [facility] Last Admin: 07/20/21 10:09 Dose: 10 mg/hr, 5 mls/hr Documented by: Insulin Glargine (Insulin Glargine,Hum.Rec.Anlog 100 Unit/Ml 10 Ml Vial) 40 unit SUBCUT BEDTIME [facility] Insulin Human Lispro (Insulin Lispro 100 Unit/Ml 3 Ml Vial) 5 unit SUBCUT TIDWM [facility] Insulin Human Lispro (Insulin Lispro 100 Unit/Ml 3 Ml Vial) 0 unit SUBCUT QIDACHS [facility]; Protocol Lisinopril (Lisinopril 2.5 Mg Tablet) 2.5 mg PO BID MARILEE; Protocol Magnesium Hydroxide (Milk Of Magnesia 30 Ml Oral.Susp) 30 ml PO DAILY PRN PRN Reason: Constipation Melatonin (Melatonin 3 Mg Tablet) 6 mg PO BEDTIME PRN PRN Reason: Insomnia Morphine Sulfate (Morphine Sulfate 2 Mg/Ml Cartridge) 2 mg IVPUSH Q6H PRN; Protocol PRN Reason: Pain, Severe (Pain Scale 7-10) Last Admin: 07/20/21 10:09 Dose: 2 mg Documented by: Non-Formulary Medication (Empagliflozin [Jardiance]) 25 mg PO DAILY [facility] Non-Formulary Medication (Umeclidinium [Incruse Ellipta]) 1 puff PO DAILY [facility] Omeprazole (Omeprazole 20 Mg Capsule.Dr) 20 mg PO DAILY@0630 [facility] Last Admin: 07/20/21 10:08 Dose: 20 mg Documented by: Ondansetron HCl (Ondansetron Hcl 4 Mg/2 Ml Vial) 4 mg IVPUSH Q8H PRN PRN Reason: Nausea and Vomiting Last Admin: 07/20/21 10:08 Dose: 4 mg Documented by: Pharmacy Consult (Consult Rx Perform Med Rec) 1 each MISCELLANE ONCE PRN PRN Reason: Consult order Sertraline HCl (Sertraline Hcl 25 Mg Tablet) 25 mg PO DAILY [facility] Last Admin: 07/20/21 10:07 Dose: 25 mg Documented by: Sodium Chloride (0.9 % Sodium Chloride Flush 3 Ml Syringe) [facility] Vitamin D (Cholecalciferol (Vitamin D3) 25 Mcg Tablet) 50 mcg PO DAILY [facility] Home Medications Medication Instructions Recorded Confirmed Last Taken Type umeclidinium 62.5 mcg/actuation 1 puff PO DAILY 10/30/20 07/20/21 07/19/21 History blister powder for inhalation (Incruse Ellipta) albuterol sulfate 90 mcg/actuation 2 puff PO Q6H PRN 06/23/21 07/20/21 Unknown History aerosol inhaler dulaglutide 0.75 mg/0.5 mL 0.75 mg SUBCUT KELLEY@0900 06/23/21 07/20/21 07/13/21 History subcutaneous pen injector (Trulicity) empagliflozin 25 mg tablet 25 mg PO DAILY 06/23/21 07/20/21 07/19/21 History (Jardiance) insulin glargine 100 unit/mL (3 40 unit SUBCUT BEDTIME 06/23/21 07/20/21 07/19/21 History mL) subcutaneous pen (Lantus Solostar U-100 Insulin) lisinopril 5 mg tablet 2.5 mg PO BID 06/23/21 07/20/21 07/19/21 History sertraline 25 mg tablet 25 mg PO DAILY 06/23/21 07/20/21 07/19/21 History gabapentin 300 mg capsule 300 mg PO TID 06/24/21 07/20/21 07/19/21 History insulin lispro 100 unit/mL 5 unit SUBCUT TIDWM 07/07/21 07/20/21 07/19/21 History subcutaneous solution (Humalog U-100 Insulin) omeprazole 20 mg capsule,delayed 20 mg PO DAILY@0630 07/20/21 07/20/21 07/19/21 History release Physical Exam Vital Signs: Vital Signs: Last Vital Signs Temp 98.6 F 07/19/21 22:28 Pulse 102 H 07/20/21 06:24 Resp 20 07/20/21 06:24 BP 117/66 07/20/21 06:24 Pulse Ox 97 07/20/21 06:24 BMI result Body Mass Index 38.3 GENERAL APPEARANCE: in no acute distress, pleasant. NECK: no carotid bruit, + jugular venous distention. SKIN: no suspicious lesions, warm and dry. HEART: no murmurs, irregular rate and rhythm. LUNGS: clear to auscultation bilaterally. ABDOMEN: soft, nontender. EXTREMITIES: 2-3+ edema. PERIPHERAL PULSES: equal. NEUROLOGIC: No gross deficits, AAO X 3 Objective Labs and Meds Result diagrams: 07/19/21 22:39 07/20/21 03:44 Lab results: Laboratory Results - last 24 hr 07/19/21 07/19/21 07/19/21 22:37 22:38 22:38 WBC RBC Hgb Hct MCV MCH MCHC RDW Plt Count MPV Immature Gran % (Auto) Neut % (Auto) Lymph % (Auto) Peach % (Auto) Eos % (Auto) Baso % (Auto) Lymph # (Auto) [place]ach # (Auto) Eos # (Auto) Baso # (Auto) Abs Immat Gran (auto) Absolute Neuts (auto) Absolute Nucleated RBC Nucleated RBC % (auto) VBG pH VBG pCO2 VBG pO2 VBG HCO3 VBG O2 Saturation VBG Base Excess Sodium 129 L Potassium 5.4 H Chloride 97 Carbon Dioxide 24 Anion Gap 13 BUN 39 H Creatinine 1.64 H Estim Creat Clear Calc 66.0 Estimated GFR 43 POC Glucose Random Glucose 511 H* Calcium 9.1 B-Natriuretic Peptide 2487 H COVID-19 (NIXON) Negative COVID-19 Clin Com See Note 07/19/21 07/20/21 07/20/21 22:39 02:26 03:31 WBC 21.0 H RBC 5.99 H Hgb 16.7 Hct 52.4 H MCV 87.5 MCH 27.9 MCHC 31.9 RDW 16.0 Plt Count 294 MPV 10.5 Immature Gran % (Auto) 1.0 H Neut % (Auto) 83.5 H Lymph % (Auto) 9.2 L Peach % (Auto) 6.1 Eos % (Auto) 0.1 Baso % (Auto) 0.1 Lymph # (Auto) 1.9 Peach # (Auto) 1.3 H Eos # (Auto) 0.0 Baso # (Auto) 0.0 Abs Immat Gran (auto) 0.21 H Absolute Neuts (auto) 17.5 H Absolute Nucleated RBC 0.000 Nucleated RBC % (auto) 0.0 VBG pH 7.38 VBG pCO2 38 VBG pO2 50 VBG HCO3 22 VBG O2 Saturation 80.0 VBG Base Excess -1.7 Sodium Potassium Chloride Carbon Dioxide Anion Gap BUN Creatinine Estim Creat Clear Calc Estimated GFR POC Glucose 258 H Random Glucose Calcium B-Natriuretic Peptide COVID-19 (NIXON) COVID-Clixtr Com 07/20/21 03:44 WBC RBC Hgb Hct MCV MCH MCHC RDW Plt Count MPV Immature Gran % (Auto) Neut % (Auto) Lymph % (Auto) Peach % (Auto) Eos % (Auto) Baso % (Auto) Lymph # (Auto) Peach # (Auto) Eos # (Auto) Baso # (Auto) Abs Immat Gran (auto) Absolute Neuts (auto) Absolute Nucleated RBC Nucleated RBC % (auto) VBG pH VBG pCO2 VBG pO2 VBG HCO3 VBG O2 Saturation VBG Base Excess Sodium 131 L Potassium 4.5 Chloride 100 Carbon Dioxide 22 Anion Gap 14 BUN 40 H Creatinine 1.37 Estim Creat Clear Calc 79.0 Estimated GFR 53 POC Glucose Random Glucose 266 H D Calcium 8.7 B-Natriuretic Peptide COVID-19 (NIXON) COVID-19 Clin Com Imaging Radiologist's impression: Impressions Chest X-Ray 07/19/21 23:25 IMPRESSION: Blunting of the right costophrenic angle is suspicious for small pleural effusion. Hazy right basilar opacity may be infectious or inflammatory. Abdomen/Pelvis CT 07/20/21 02:48 IMPRESSION: 1. Chronic changes of the right lung base with rounded atelectasis and pleural thickening. Bronchial wall thickening can be seen with a small airways process such as asthma or atypical/viral infection. 2. Small volume ascites noted. Contracted gallbladder with suggestion of wall thickening. This is nonspecific. 3. Suggestion of mild wall thickening of the proximal jejunum. This could represent enteritis. Chest CT 07/20/21 02:48 IMPRESSION: 1. Chronic changes of the right lung base with rounded atelectasis and pleural thickening. Bronchial wall thickening can be seen with a small airways process such as asthma or atypical/viral infection. 2. Small volume ascites noted. Contracted gallbladder with suggestion of wall thickening. This is nonspecific. 3. Suggestion of mild wall thickening of the proximal jejunum. This could represent enteritis. Assessment and Plan (1) Atrial fibrillation: Status: Acute (2) CHF exacerbation: Status: Acute 56-year-old gentleman with known cardiomyopathy and recent worsening ejection fraction atrial fibrillation rapid ventricular response. He underwent cardioversion May presented again with in June with COVID-19 infection and AFib with RVR. He also had ventricular tachycardia at that time and was started on mexiletine as outpatient. Also was given a LifeVest. It appears he had progressive weight gain after discharge and came back to the hospital. Significantly volume overloaded at this point. Agree with Lasix drip with close monitoring of his electrolytes. Mexiletine can lead to negative ionotropic affects and low-flow state and can worsen congestive heart failure. I would favor holding mexiletine for now. I think there is noncompliance with fluid intake and maybe medications at play right now. I think we continue diuretics for now. He should not get any Cardizem. Continue beta-lion and lisinopril. If blood pressure is soft or he does not make good urine then we may need to hold the metoprolol. Thank you for allowing me to participate in the care of your patient. Please feel free to contact me if you have any questions. Procedures Date of Service Date of Service: 07/20/21
[2021-07-20 11:18] LABS: Magnesium 2.6 mg/dL (1.6-2.6)
[2021-07-20 13:01] LABS: Glucose, Whole Blood 195 mg/dL (60-115)
[2021-07-20] MEDS: Insulin Lispro 100 UNIT/ML 3 ML VIAL SUBCUT ×3 (13:31→18:36)
--- NOTE | 2021-07-20 16:43 | MHC.CM.PN ---
Addendum entered by Kaitlin Hernandes RN 07/20/21 16:47: PT HAS CPAP AT BEDSIDE IN ED9. Original Note: IMM 07/20/21, EMR REVIEWED, CM MET W/PT WHO IS A&OX4, PT REPORTS HE LIVES W/HIS S.O. NIK, PT IS INDEPENDENT W/ALL CARE, USES A CPAP AND NEBULIZER FOR DME, NO HOME SERVICES HOWEVER IS PEN TO [facility] IF RECOMMENDED, NO PREFERENCES, PCP VERIFIED [facility] AND HCP ON FILE FROM PREVIOUS VISIT. D/C PLAN: HOME NO SERVICES, S.O. FOR TRANSPORT
[2021-07-20 17:23] LABS: Glucose, Whole Blood 92 mg/dL (60-115)
[2021-07-20] MEDS: Melatonin 3 MG TABLET 6 MG PO (20:14)
[2021-07-20] MEDS: Atorvastatin Calcium 40 MG TABLET PO (20:16)
[2021-07-20] MEDS: lisinopriL 2.5 MG TABLET PO (20:16)
[2021-07-20] MEDS: Insulin Glargine,Hum.rec.anlog 100 UNIT/ML 10 ML VIAL 40 UNIT SUBCUT (22:29)
[2021-07-21] MEDS: 0.9 % Sodium Chloride Flush 3 ML SYRINGE IVFLUSH ×2 (00:08→09:24)
--- NOTE | 2021-07-21 02:26 | PC.NURSE ---
I assumed care of this pt at 1900. Since that time he has remained alert and oriented x 3, resting in bed without significant complaints. He does, however, complain of B/L LE pain that he attributes to the amount of LE edema he has. There is marked B/L LE edema radiating into his abdomen and lower back. he appears much heavier than I remember him during his last ER visit, he cites a 35lb weight gain since he was last here last week (states he has already informed doctors here about this). Respirations have remained non-labored, no cyanosis, speaking in full sentences, O2 sat's 95% or better. No nausea, no vomiting - he takes PO food and fluids without difficulty. He ambulates throughout his room independently and with steady gait. He has been voiding into bedside urinal independently and without difficulty - I am measuring his urine output. Skin is flushed, warm and dry. Gait is steady. No chest pain. Lasix gtt continues to infuse at 10mg/hr. Will continue to monitor.
[2021-07-21] MEDS: Morphine Sulfate 2 MG/ML CARTRIDGE IVPUSH ×2 (03:15→09:32)
--- NOTE | 2021-07-21 03:33 | PC.NURSE ---
Jr woke at this time, alert and oriented x 3. Bedside urinal emptied of 750cc clear yellow urine. The pt, again, admits to B/L LE and lower back pain that he attributes to the edema. i administered Morphine 2mg IVP (for the second time this shift) for this pain. After the initial dose (see eMar) he admitted to good pain relief that allowed him to get some sleep. He is taking few ice chips and occasional very small sips of diet brianda clemencia. Afib, rate 90's on bedside monitor. Respirations appear non-labored.
[2021-07-21 05:39] VITALS: BP 99/65; PULSE 105; RESP 23; TEMP 36.6; O2SAT 97
[2021-07-21] MEDS: Omeprazole 20 MG CAPSULE.DR PO (06:40)
[2021-07-21] MEDS: Furosemide 200 MG in 0.9 % Sodium Chloride 80 ML IVCONT (06:49)
[2021-07-21 07:48] LABS: Anion Gap 13 (12-20); Blood Urea Nitrogen 43 mg/dL (9-16); Calcium 8.4 mg/dL (8.4-10.2); Carbon Dioxide 29 mmol/L (22-29); Chloride 98 mmol/L (96-108); Creatinine Clr Calc Pharmacy 85.2; Estimated Glomerular Filt Rate 58; Glucose Random 128 mg/dL (60-115); Potassium 4.7 mmol/L (3.3-5.1); Sodium 135 mmol/L (135-145)
[2021-07-21 07:53] LABS: Glucose, Whole Blood 139 mg/dL (60-115)
[2021-07-21 08:25] VITALS: PULSE 111; RESP 20; O2SAT 97
[2021-07-21 09:05] VITALS: BP 90/55; PULSE 105; RESP 16; O2SAT 98
[2021-07-21] MEDS: Cholecalciferol (Vitamin D3) 25 MCG TABLET 50 MCG PO (09:19)
[2021-07-21] MEDS: Sertraline HCL 25 MG TABLET PO (09:20)
[2021-07-21] MEDS: lisinopriL 2.5 MG TABLET PO (09:20)
[2021-07-21] MEDS: Insulin Lispro 100 UNIT/ML 3 ML VIAL SUBCUT (09:20)
[2021-07-21] MEDS: Apixaban 5 MG TABLET PO (09:20)
[2021-07-21] MEDS: Gabapentin 300 MG CAPSULE PO (09:20)
--- NOTE | 2021-07-21 10:13 | P.CDIC_ITS ---
CDI Concurrent Query Documentation Clarification: PHYSICIAN'S DOCUMENTATION REQUEST Date of Query: 07/21/21 1014 Patient Name: Jr Cruz Admit Date: 07/20/21 Dear Doctor, A review of the medical record indicates additional documentation may be needed. Please review below and update the documentation accordingly. Risk Factors/Clinical Indicators/Treatments Lab findings: sodium 129 L 131 IV fluids Based on the above, could you clarify in the Progress Notes the appropriate diagnosis, if significant, that supports the above abnormalities and additional evaluation, monitoring, and/or treatment rendered: * Hyponatremia or other etiology of lab findings * Other (please specify) * Unable to determine Use of terms such as suspected, likely, concern for, or probable (associated with a specific diagnosis that is being evaluated, monitored, or treated as if it exists) are acceptable and can be coded in the inpatient setting, when documented at the time of discharge. Thank you, Mandy Parson [facility], CDIS Extension: [phone] Please use your independent medical judgment in providing your response. THIS QUERY IS PART OF THE PERMANENT MEDICAL RECORD Provider Response: Other Other Diagnosis: hyponatremia
--- NOTE | 2021-07-21 11:15 | PC.NURSE ---
Pt A&Ox4, lungs with rhonchi at this time, pain to BLE and abd back area where edema is present. A fib in the 100's on the monitor. BP as documented, metoprolol held at this time. Lasix drip increased per custom tailor request who is at bedside. Urine output as documented. Plan for transfer to [facility], report given to Dean at [facility], [facility].
[2021-07-21 12:01] VITALS: BP 119/67; PULSE 105; RESP 15; TEMP 36; O2SAT 92
--- NOTE | 2021-07-21 12:29 | P.DS_ITS ---
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 He was recently admitted to the hospital for exacerbation of heart failure from 07/07 to 07/12 and at that time had NSVTs and was equiped with lifevest with eventual plan to have a permanent AICD. He r eturn to complaining of return of shortnesss and marked anascarcanand massive weight gain since he recently left the hospital--?thinks he has gained an excess of 30 pounds in less than a wee and was admitted to [place] for management of heart Failure. #Acute on chronic systolic CHF with massive fluid build up and weight gain. He is on IV Lasix drip at 10 mg /hr since 07/20 and negative just 1.4 liter overnight and marked sing still of volume overload. Lasix drip has been increased to 20 this morning on cardiology advised. He is a rather complex patient with severe systolic dysfunction, with cardiomyopathy believed from preexcitation. On recent hospitalization he had NSVT and as such is equiped with LifeVest with eventual AICD in the near future. Further management include Lisinopril, metoprolol, low salt diet, daily weight. Dr. Andrew has been following and advises Transfer to [facility] Heart failure service for optimal management to include invasive hemodynamic management such [place] Josias Catheter # AFIB-- He had been on Mexiletine since last hospitalization but has been discontinued as patient thinks it have preciated heart failure #Diabetes--Sliding Sclale Insulin and hold Metformin d/t DECLAN #CKD 2-3, stable, but hold Metformin #KIMANI, CPAP to sleep #Neuropaty--Gabapentin #NSVT--Check mag, continue Lifevest, Mag on 07/20 was 2.6 #HypOnatremia--d/t heart failure, should normalized with treatment for heart failure, now normal at 135 Time Spent with Patient Time attestation: Total time spent providing and/or coordinating discharge services: Discharge coordination time: Greater than 30 minutes Quality: Stroke Does the patient have a stroke diagnosis?: No Physical Exam Verdana 4l Vital Signs: Verdana 4d Verdana 4d Vital Signs: Verdana 4d Verdana 4Bd Last Vital Signs Verdana 4d Customer Assistance Associate New 4d Customer Assistance Associate New 4d Temp 96.8 F 07/21/21 12:01 Customer Assistance Associate New 4d Pulse 105 H 07/21/21 12:01 Customer Assistance Associate NewNew 4d Resp 15 07/21/21 12:01 BP 119/67 07/21/21 12:01 Pulse Ox 92 07/21/21 12:01 BMI result Body Mass Index 38.3 DS: Data Data Completed and Pending Completed studies during hospitalization [Text1]: Procedures Assistance with Respiratory Ventilation, Less than 24 Consecutive Hours, Continuous Positive Airway Pressure (07/07/21) Mormon of Cardiac Rhythm, Single (06/23/21) Labs on day of discharge: Laboratory Results - last 24 hr 07/20/21 07/20/21 07/21/21 12:51 17:19 07:27 Sodium 135 Potassium 4.7 Chloride 98 Carbon Dioxide 29 Anion Gap 13 BUN 43 H Creatinine 1.27 Estim Creat Clear Calc 85.2 Estimated GFR 58 POC Glucose 195 H 92 Random Glucose 128 H D Calcium 8.4 07/21/21 07:38 Sodium Potassium Chloride Carbon Dioxide Anion Gap BUN Creatinine Estim Creat Clear Calc Estimated GFR POC Glucose 139 H Random Glucose Calcium Discharge Plan Discharge Anticipated Discharge Date/Time: 07/21/21 12:16 Patient Disposition: Xfer Acute Care Hospital Discharge Diagnosis: Heart failure exacerbation Referrals: Phi Crisostomo FNP-BC [Primary Care Provider] - 1 Week Discharge Medications: Continued cholecalciferol (vitamin D3) 50 mcg (2,000 unit) capsule 50 mcg PO DAILY 90 Days Qty: 90 RF: 2 metformin 500 mg tablet 500 mg PO DAILY Qty: 90 RF: 0 Eliquis 5 mg tablet 5 mg PO BID 90 Days Qty: 180 RF: 3 Hold Instructions: Resume on 11/11/20. Hold Eliquois x 5 days albuterol sulfate 2.5 mg /3 mL (0.083 %) solution for nebulization 2.5 mg inhalation QID PRN (Reason: shortness of breath or wheezing) 30 Days Qty: 90 RF: 1 atorvastatin 40 mg tablet 40 mg PO BEDTIME 90 Days Qty: 90 RF: 0 Incruse Ellipta 62.5 mcg/actuation blister with device 1 puff PO DAILY RF: 0 omeprazole 20 mg capsule,delayed release(DR/EC) 20 mg PO DAILY@0630 RF: 0 sertraline 25 mg tablet 25 mg PO DAILY RF: 0 lisinopril 5 mg tablet 2.5 mg PO BID RF: 0 Hold Instructions: Resume on 07/16/21. albuterol sulfate 90 mcg/actuation HFA aerosol inhaler 2 puff PO Q6H PRN (Reason: wheezing) RF: 0 Lantus Solostar U-100 Insulin 100 unit/mL (3 mL) insulin pen 40 unit subcut BEDTIME RF: 0 Jardiance 25 mg tablet 25 mg PO DAILY RF: 0 Trulicity 0.75 mg/0.5 mL pen injector 0.75 mg subcut KELLEY@0900 RF: 0 gabapentin 300 mg capsule 300 mg PO TID RF: 0 insulin lispro [Humalog U-100 Insulin] 100 unit/mL Solution 5 unit SUBCUT TIDWM RF: 0 metoprolol tartrate 25 mg Tablet 25 mg PO BID Qty: 60 RF: 0 Discontinued furosemide 40 mg tablet 40 mg PO BID Qty: 180 RF: 0 mexiletine 150 mg Capsule 150 mg PO TID Qty: 90 RF: 0 Diet: advance to usual diet, diabetic diet and low salt diet Activity on Discharge: As tolerated Stand Alone Forms: Patient Portal Discharge page Care Plan Goals: Heart failure treatment to improve symptoms and quality of life Health Concerns: Heart failure, atrial fibrilation Plan of Treatment: Continue IVdiuretics, transfer to [facility] for better invasive hemodynamic monitoring Assessment: As above
--- NOTE | 2021-07-21 12:46 | HO.PM.IMPN ---
Subjective Subjective Date of Service: 07/21/21 Interval History: Seen in f/u for for exacerbation of heart failure, feels a bit better, but remains very swollen everywhere Review of Systems Gen: no fever Resp: + sob, no cough CV: no chest, + ALLEN, + leg edema GI: No n/v, no abd pain Neuro: No confusion Physical Exam Vital Signs: Vital Signs: Last Vital Signs Temp 96.8 F 07/21/21 12:01 Pulse 105 H 07/21/21 12:01 Resp 15 07/21/21 12:01 BP 119/67 07/21/21 12:01 Pulse Ox 92 07/21/21 12:01 BMI result Body Mass Index 38.3 Const: Other: General: AO X 3, no acute distress Resp: diminished BS, CVS: S1,S2, iregular iregular GI: +BS, NT, no distention Skin: No rash Neuro: motor grossly intact Psych: appropriate affect Objective Data Active Medications Acetaminophen (Acetaminophen 325 Mg Tablet) 650 mg PO Q6H PRN PRN Reason: Pain, Mild (Pain Scale 1-3) Last Admin: 07/20/21 10:08 Dose: 650 mg Documented by: EBEN Albuterol Sulfate (Albuterol Sulfate (0.083%) 2.5 Mg/3 Ml Vial.Neb) 2.5 mg INHALE QID PRN PRN Reason: shortness of breath or wheezing Albuterol Sulfate (Albuterol Sulfate 90 Mcg 8 Gm Inhaler) 2 puff INHALE Q6H PRN PRN Reason: wheezing Apixaban (Apixaban 5 Mg Tablet) 5 mg PO BID [facility] Last Admin: 07/21/21 09:20 Dose: 5 mg Documented by: ASCENCION Atorvastatin Calcium (Atorvastatin Calcium 40 Mg Tablet) 40 mg PO BEDTIME [facility] Last Admin: 07/20/21 20:16 Dose: 40 mg Documented by: BARBKENROY Gabapentin (Gabapentin 300 Mg Capsule) 300 mg PO TID [facility] Last Admin: 07/21/21 09:20 Dose: 300 mg Documented by: ASCENCION Furosemide 200 mg/ Sodium (Chloride) 100 mls @ 5 mls/hr IVCONT .Q20H [facility] Last Infusion: 07/21/21 09:35 Dose: 20 mg/hr, 10 mls/hr Documented by: ASCENCION Insulin Glargine (Insulin Glargine,Hum.Rec.Anlog 100 Unit/Ml 10 Ml Vial) 40 unit SUBCUT BEDTIME [facility] Last Admin: 07/20/21 22:29 Dose: 40 unit Documented by: KARON Insulin Human Lispro (Insulin Lispro 100 Unit/Ml 3 Ml Vial) 5 unit SUBCUT TIDWM [facility] Last Admin: 07/21/21 09:20 Dose: 5 unit Documented by: ASCENCION Insulin Human Lispro (Insulin Lispro 100 Unit/Ml 3 Ml Vial) 0 unit SUBCUT QIDACHS [facility]; Protocol Last Admin: 07/21/21 09:24 Dose: Not Given Documented by: ASCENCION Non-Admin Reason: No Insulin Coverage Lisinopril (Lisinopril 2.5 Mg Tablet) 2.5 mg PO BID [facility]; Protocol Last Admin: 07/21/21 09:20 Dose: 2.5 mg Documented by: ASCENCION Magnesium Hydroxide (Milk Of Magnesia 30 Ml Oral.Susp) 30 ml PO DAILY PRN PRN Reason: Constipation Melatonin (Melatonin 3 Mg Tablet) 6 mg PO BEDTIME PRN PRN Reason: Insomnia Last Admin: 07/20/21 20:14 Dose: 6 mg Documented by: KARON Metoprolol Tartrate (Metoprolol Tartrate 25 Mg Tablet) 25 mg PO BID [facility]; Protocol Last Admin: 07/21/21 09:24 Dose: Not Given Documented by: ASCENCION Non-Admin Reason: Patient Condition Contraindication Morphine Sulfate (Morphine Sulfate 2 Mg/Ml Cartridge) 2 mg IVPUSH Q6H PRN; Protocol PRN Reason: Pain, Severe (Pain Scale 7-10) Last Admin: 07/21/21 09:32 Dose: 2 mg Documented by: ASCENCION Non-Formulary Medication (Empagliflozin [Jardiance]) 25 mg PO DAILY [facility] Omeprazole (Omeprazole 20 Mg Capsule.) 20 mg PO DAILY@0630 [facility] Last Admin: 07/21/21 06:40 Dose: 20 mg Documented by: ROSALES Ondansetron HCl (Ondansetron Hcl 4 Mg/2 Ml Vial) 4 mg IVPUSH Q8H PRN PRN Reason: Nausea and Vomiting Last Admin: 07/20/21 10:08 Dose: 4 mg Documented by: EBEN Pharmacy Consult (Consult Rx Perform Med Rec) 1 each MISCELLANE ONCE PRN PRN Reason: Consult order Sertraline HCl (Sertraline Hcl 25 Mg Tablet) 25 mg PO DAILY [facility] Last Admin: 07/21/21 09:20 Dose: 25 mg Documented by: ASCENCION Sodium Chloride (0.9 % Sodium Chloride Flush 3 Ml Syringe) 3 ml IVFLUSH QSHIFT [facility] Last Admin: 07/21/21 09:24 Dose: 3 ml Documented by: ASCENCION Tiotropium [place] (Tiotropium [place] 18 Mcg Cap.W.Dev) 1 puff INHALE RDAILY [facility] Last Admin: 07/21/21 08:22 Dose: 1 puff Documented by: JUNIOR Vitamin D (Cholecalciferol (Vitamin D3) 25 Mcg Tablet) 50 mcg PO DAILY [facility] Last Admin: 07/21/21 09:19 Dose: 50 mcg Documented by: ASCENCION Labs CBC & Chem 7: 07/19/21 22:39 07/21/21 07:27 Labs: Laboratory Results - last 24 hr 07/20/21 07/20/21 07/21/21 12:51 17:19 07:27 Anion Gap 13 Estim Creat Clear Calc 85.2 Estimated GFR 58 POC Glucose 195 H 92 Random Glucose 128 H D Calcium 8.4 07/21/21 07:38 Anion Gap Estim Creat Clear Calc Estimated GFR POC Glucose 139 H Random Glucose Calcium Assessment and Plan (1) Acute on chronic systolic (congestive) heart failure: Status: Acute Assessment and Plan: 48-year-old male with past medical history of paroxysmal AFib, CKD2, 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 He was recently admitted to the hospital for exacerbation of heart failure from 07/07 to 07/12 and at that time had NSVTs and was equiped with lifevest with eventual plan to have a permanent AICD. He return to complaining of return of shortnesss and marked anascarcanand massive weight gain since he recently left the hospital--?thinks he has gained an excess of 30 pounds in less than a wee and was admitted to [place] for management of heart Failure. #Acute on chronic systolic CHF with massive fluid build up and weight gain. He is on IV Lasix drip at 10 mg /hr since 07/20 and negative just 1.4 liter overnight and marked sing still of volume overload. Lasix drip has been increased to 20 this morning on cardiology advised. He is a rather complex patient with severe systolic dysfunction, with cardiomyopathy believed from preexcitation. On recent hospitalization he had NSVT and as such is equiped with LifeVest with eventual AICD in the near future. Further management include Lisinopril, metoprolol, low salt diet, daily weight. Dr. Andrew has been following and advises Transfer to [facility] Heart failure service for optimal management to include invasive hemodynamic management such [place] Josias Catheter # AFIB-- He had been on Mexiletine since last hospitalization but has been discontinued as patient thinks it have preciated heart failure #Diabetes--Sliding Sclale Insulin and hold Metformin d/t DECLAN #CKD 2-3, stable, but hold Metformin #KIMANI, CPAP to sleep #Neuropaty--Gabapentin #NSVT--Check mag, continue Lifevest, Mag on 07/20 was 2.6 #HypOnatremia--d/t heart failure, should normalized with treatment for heart failure, now normal at 135 Quality Stroke Does the patient have a stroke diagnosis?: No VTE Prior VTE?: No VTE Risk Level:: Medical - moderate - high VTE Device Contraindication: Treatment Not Indicated VTE Drug Contraindication: N/A - Med Ordered
--- NOTE | 2021-07-21 13:42 | MHC.CM.PN ---
PT TO BE TRANSFERRED TO [facility]
--- NOTE | 2021-07-21 14:42 | PM.PNCARD ---
Subjective Subjective Date of Service: 07/21/21 Principal diagnosis: Acute CHF Interval history: This morning patient blood pressure systolic 90. He has been diuresing adequately. However remains in AFib with slightly rapid ventricular response. Still remains significantly fluid overloaded. Has received his morning dose of lisinopril. Denies lightheadedness, syncope. No ventricular arrhythmias. Review of Systems Constitutional: Reports fatigue, Reports malaise and Reports weakness Cardiovascular: Denies chest pain, Reports leg edema, Denies lightheadedness, Denies palpitations and Reports dyspnea Respiratory: Reports no additional respiratory complaints and Reports dyspnea Gastrointestinal: Reports no additional gastrointestinal complaints Musculoskeletal: Reports no additional musculoskeletal complaints Reports system reviewed and no additional complaints, except as documented and Reports weakness Psychiatric: Reports no additional psychiatric complaints Endocrine: Reports no additional endocrine complaints, Reports fatigue and Denies palpitations Physical Exam Vital Signs: Last Vital Signs Temp 96.8 F 07/21/21 12:01 Pulse 105 H 07/21/21 12:01 Resp 15 07/21/21 12:01 BP 119/67 07/21/21 12:01 Pulse Ox 92 07/21/21 12:01 BMI result Body Mass Index 38.3 Const General: cooperative, comfortable and ill appearing Nutritional Appearance: obese Orientation/consciousness: patient oriented x3 Neck Neck: Yes trachea midline and Yes JVD Resp Auscultation: no rales, wheezes and diminished lung sounds Cardio Jugular venous distension: JVD Rate: tachycardic Rhythm: abnormal rhythm irregularly irregular Heart sounds: S1 normal heart sound present and S2 normal heart sound present GI Auscultation: normal bowel sounds Skin General skin exam: no rashes or lesions noted Neuro General: patient oriented x3 and no focal motor deficits Extrem General: No clubbing, No cyanosis and Yes edema Objective Labs and Meds Result diagrams: 07/19/21 22:39 07/21/21 07:27 Lab results: Laboratory Results - last 24 hr 07/20/21 07/21/21 07/21/21 17:19 07:27 07:38 Sodium 135 Potassium 4.7 Chloride 98 Carbon Dioxide 29 Anion Gap 13 BUN 43 H Creatinine 1.27 Estim Creat Clear Calc 85.2 Estimated GFR 58 POC Glucose 92 139 H Random Glucose 128 H D Calcium 8.4 Progress Note: A&P Assessment and plan (1) CHF exacerbation: Status: Acute Assessment and Plan: CHF with poor response to diuretics and low blood pressure. Discussed with Dr. Tidwell to transfer to [facility] for advanced heart failure management may require inotropic support and/or right heart catheterization. She has agreed and accepting patient to be transferred to [facility]. Increase Lasix meanwhile to 20 mg per hour drip. Will also give digoxin 0.5 mg IV push x1. Hold on lisinopril for now. Continue diuresis. He has worsening LV systolic function in the past has done very well with rhythm management, see below. This may need to be addressed with EP consultation. (2) Atrial fibrillation: Status: Acute Assessment and Plan: Atrial fibrillation with slightly rapid ventricular response. Overall rate is still slightly tachycardic but could be due to CHF exacerbation as well as lower stroke 40. Digoxin as above. Has done very well with maintenance of AV synchrony with improvement in heart failure syndrome as well as LV systolic function. Currently LVEF at 15-20%. He has hyperthyroidism and is currently off amiodarone therapy. May require RAYMUNDO guided cardioversion and/or AV gary ablation. EPS consult at [facility]. Fall Risk Details Current Medications: Current Medications Acetaminophen (Acetaminophen 325 Mg Tablet) 650 mg PO Q6H PRN PRN Reason: Pain, Mild (Pain Scale 1-3) Last Admin: 07/20/21 10:08 Dose: 650 mg Documented by: Albuterol Sulfate (Albuterol Sulfate (0.083%) 2.5 Mg/3 Ml Vial.Neb) 2.5 mg INHALE QID PRN PRN Reason: shortness of breath or wheezing Albuterol Sulfate (Albuterol Sulfate 90 Mcg 8 Gm Inhaler) 2 puff INHALE Q6H PRN PRN Reason: wheezing Apixaban (Apixaban 5 Mg Tablet) 5 mg PO BID [facility] Last Admin: 07/21/21 09:20 Dose: 5 mg Documented by: Atorvastatin Calcium (Atorvastatin Calcium 40 Mg Tablet) 40 mg PO BEDTIME [facility] Last Admin: 07/20/21 20:16 Dose: 40 mg Documented by: Gabapentin (Gabapentin 300 Mg Capsule) 300 mg PO TID [facility] Last Admin: 07/21/21 09:20 Dose: 300 mg Documented by: Furosemide 200 mg/ Sodium (Chloride) 100 mls @ 5 mls/hr IVCONT .Q20H [facility] Last Infusion: 07/21/21 09:35 Dose: 20 mg/hr, 10 mls/hr Documented by: Insulin Glargine (Insulin Glargine,Hum.Rec.Anlog 100 Unit/Ml 10 Ml Vial) 40 unit SUBCUT BEDTIME [facility] Last Admin: 07/20/21 22:29 Dose: 40 unit Documented by: Insulin Human Lispro (Insulin Lispro 100 Unit/Ml 3 Ml Vial) 5 unit SUBCUT TIDWM [facility] Last Admin: 07/21/21 09:20 Dose: 5 unit Documented by: Insulin Human Lispro (Insulin Lispro 100 Unit/Ml 3 Ml Vial) 0 unit SUBCUT QIDACHS [facility]; Protocol Last Admin: 07/21/21 09:24 Dose: Not Given Documented by: Lisinopril (Lisinopril 2.5 Mg Tablet) 2.5 mg PO BID [facility]; Protocol Last Admin: 07/21/21 09:20 Dose: 2.5 mg Documented by: Magnesium Hydroxide (Milk Of Magnesia 30 Ml Oral.Susp) 30 ml PO DAILY PRN PRN Reason: Constipation Melatonin (Melatonin 3 Mg Tablet) 6 mg PO BEDTIME PRN PRN Reason: Insomnia Last Admin: 07/20/21 20:14 Dose: 6 mg Documented by: Metoprolol Tartrate (Metoprolol Tartrate 25 Mg Tablet) 25 mg PO BID [facility]; Protocol Last Admin: 07/21/21 09:24 Dose: Not Given Documented by: Morphine Sulfate (Morphine Sulfate 2 Mg/Ml Cartridge) 2 mg IVPUSH Q6H PRN; Protocol PRN Reason: Pain, Severe (Pain Scale 7-10) Last Admin: 07/21/21 09:32 Dose: 2 mg Documented by: Non-Formulary Medication (Empagliflozin [Jardiance]) 25 mg PO DAILY [facility] Omeprazole (Omeprazole 20 Mg Capsule.Dr) 20 mg PO DAILY@0630 [facility] Last Admin: 07/21/21 06:40 Dose: 20 mg Documented by: Ondansetron HCl (Ondansetron Hcl 4 Mg/2 Ml Vial) 4 mg IVPUSH Q8H PRN PRN Reason: Nausea and Vomiting Last Admin: 07/20/21 10:08 Dose: 4 mg Documented by: Pharmacy Consult (Consult Rx Perform Med Rec) 1 each MISCELLANE ONCE PRN PRN Reason: Consult order Sertraline HCl (Sertraline Hcl 25 Mg Tablet) 25 mg PO DAILY [facility] Last Admin: 07/21/21 09:20 Dose: 25 mg Documented by: Sodium Chloride (0.9 % Sodium Chloride Flush 3 Ml Syringe) 3 ml IVFLUSH QSHIFT [facility] Last Admin: 07/21/21 09:24 Dose: 3 ml Documented by: Tiotropium [place] (Tiotropium [place] 18 Mcg Cap.W.Dev) 1 puff INHALE RDAILY [facility] Last Admin: 07/21/21 08:22 Dose: 1 puff Documented by: Vitamin D (Cholecalciferol (Vitamin D3) 25 Mcg Tablet) 50 mcg PO DAILY [facility] Last Admin: 07/21/21 09:19 Dose: 50 mcg Documented by: Time Spent With Patient Time: Total time spent is greater than 50% in coordination of care (as documented) at patient's floor/unit and/or counseling patient: Time with patient: Greater than 35 minutes Progress Note: Quality Stroke Does the patient have a stroke diagnosis?: No Procedures Date of Service Date of Service: 07/21/21
== END 2021-07-21 20:01 | disposition short-term general hospital (02) | DRG 292 ==
LOC: HO.ED 07-20 04:52 → HO.EDOVER 07-20 09:23
PROVIDERS: Admitting Provider Internal Medicine; Emergency Provider Student in an Organized Health Care Education/Training Program; PCP Nurse Practitioner Family; Visit Provider Internal Medicine
DX: I50.23 Acute on chronic systolic (congestive) heart failure (principal); I51.0 Cardiac septal defect, acquired; N17.9 Acute kidney failure, unspecified; E87.1 Hypo-osmolality and hyponatremia; I47.1 Supraventricular tachycardia; I42.9 Cardiomyopathy, unspecified; I48.91 Unspecified atrial fibrillation; E11.65 Type 2 diabetes mellitus with hyperglycemia; E11.22 Type 2 diabetes mellitus with diabetic chronic kidney disease; N18.30 Chronic kidney disease, stage 3 unspecified; E11.40 Type 2 diabetes mellitus with diabetic neuropathy, unspecified; G47.33 Obstructive sleep apnea (adult) (pediatric); E03.9 Hypothyroidism, unspecified; Z20.822 Contact with and (suspected) exposure to COVID-19; Z86.16 Personal history of COVID-19; Z99.89 Dependence on other enabling machines and devices; Z87.891 Personal history of nicotine dependence; Z79.4 Long term (current) use of insulin; Z79.01 Long term (current) use of anticoagulants; Z79.84 Long term (current) use of oral hypoglycemic drugs; Z79.899 Other long term (current) drug therapy
CPT/HCPCS: 36415; 71045; 71250; 74176; 80048; 82803; 82947; 83735; 83880; 85025; 87635; 93005; 94640; 99285; J1940; J2270; J2405

== ENCOUNTER → 2021-09-10 14:01 | Outpatient (BNVA) | payer OTHER, SELFPAY | PROVIDERS: PCP Nurse Practitioner Family; Referring Provider Nurse Practitioner Family; Visit Provider Internal Medicine Cardiovascular Disease | DX: Z45.02 Encounter for adjustment and management of automatic implantable cardiac defibrillator (principal); I50.20 Unspecified systolic (congestive) heart failure; I48.91 Unspecified atrial fibrillation; I25.10 Atherosclerotic heart disease of native coronary artery without angina pectoris | CPT/HCPCS: 99212 ==

== ENCOUNTER 2021-09-17 10:36 | Outpatient (REF) | payer OTHER, SELFPAY ==
[2021-09-17 13:43] LABS: MANUAL DIFF FLAG NO
[2021-09-17 13:49] LABS: Basophils Absolute Auto 0.1 X10*3/uL (0.0-0.2); Basophils Percent Auto 0.6 % (0-2); Eosinophils Absolute Auto 0.2 X10*3/uL (0.0-0.4); Hematocrit 54.4 % (42.0-52.0); Hemoglobin 16.8 g/dl (14.0-18.0); Imm Gran Abs Auto 0.05 X10*3/uL (0.00-0.03); Imm Gran Pct Auto 0.5 % (0.0-0.4); Lymphocytes Absolute Auto 2.6 X10*3/uL (1.2-4.9); Lymphocytes Percent Auto 23.5 % (20-40); Mean Corpuscular HGB Conc 30.9 g/dl (31.0-36.0); Mean Corpuscular Volume 90.8 fL (80.0-98.0); Mean Platelet Volume 10.7 fL (9.4-12.4); Monocytes Absolute Auto 0.7 X10*3/uL (0.1-1.2); Monocytes Percent Auto 6.1 % (2-11); Neutrophils Absolute Auto 7.4 x10*3/uL (2.0-8.3); Neutrophils Percent Auto 67.3 % (45-73); Platelet Count 310 X10*3/uL (160-400); Red Blood Count 5.99 X10*6/uL (4.60-5.80); Red Cell Distribution Width 18.7 % (11.0-16.0); White Blood Count 10.9 X10*3/uL (4.8-10.8)
[2021-09-17 13:57] LABS: INTERNATIONAL NORM RATIO 1.3 (0.9-1.1); Prothrombin Time 14.8 SEC (9.9-13.0)
[2021-09-17 14:00] LABS: Appearance Urine CLEAR; Color Urine STRAW; Glucose Urine UA >=1000 MG/DL (NEG); Leukocyte Esterase Urine NEG (NEG); Nitrite Urine NEG (NEG); PH 5.5 (5.0-8.0); Specific Gravity - Urine <= 1.005 (1.005-1.025); UACC Culture Trigger NO; Urine Blood TRACE (NEG); Urine Ketones NEG (NEG); Urine Protein NEG (NEG-TRACE)
[2021-09-17 14:09] LABS: Alanine Aminotransferase 10 U/L (0-40); Alkaline Phosphatase 103 U/L (39-117); Anion Gap 13 (12-20); Aspartate Amino Transferase 9 U/L (5-37); Bilirubin Total 0.7 mg/dL (0.0-1.0); Blood Urea Nitrogen 12 mg/dL (9-16); Calcium 9.7 mg/dL (8.4-10.2); Carbon Dioxide 32 mmol/L (22-29); Chloride 102 mmol/L (96-108); Cholesterol 105 mg/dL; Estimated Average Glucose 246 mg/dL; Estimated Glomerular Filt Rate > 60; Glucose Fasting 222 mg/dL (60-99); HDL Cholesterol 38 mg/dL; Hemoglobin A1c % 10.2 %; LDL Cholesterol Calculated 49 mg/dl; Potassium 5.2 mmol/L (3.3-5.1); Sodium 142 mmol/L (135-145); Triglycerides 90 mg/dL
[2021-09-17 14:15] LABS: Creatinine Urine 6.29 mg/dL; Microalbumin Urine < 5.0 mg/L
[2021-09-17 14:20] LABS: RBC Urine 0-2 /HPF (0); Squamous Epithelial Cell Urine TRACE /LPF; WBC Urine 0-2 /HPF (0-4)
[2021-09-17 14:30] LABS: TSH reflex Free T4 0.08 uIU/mL (0.32-4.0)
== END 2021-09-17 10:37 | disposition home or self-care (01) ==
LOC: HO.HMGCLDS 10:36
PROVIDERS: Absent Provider Internal Medicine Cardiovascular Disease; PCP Nurse Practitioner Family; Visit Provider Nurse Practitioner Family
DX: E87.5 Hyperkalemia (principal); I25.10 Atherosclerotic heart disease of native coronary artery without angina pectoris; I42.9 Cardiomyopathy, unspecified; I47.2 Ventricular tachycardia; I48.0 Paroxysmal atrial fibrillation; I50.20 Unspecified systolic (congestive) heart failure; J20.9 Acute bronchitis, unspecified; J44.0 Chronic obstructive pulmonary disease with (acute) lower respiratory infection; E11.9 Type 2 diabetes mellitus without complications
CPT/HCPCS: 36415; 80048; 80053; 80061; 81001; 81003; 82043; 83036; 84439; 84443; 85025; 85610

== ENCOUNTER → 2021-10-28 14:30 | Outpatient (BNVA) | payer OTHER, SELFPAY | PROVIDERS: PCP Nurse Practitioner Family; Referring Provider Nurse Practitioner Family; Visit Provider Internal Medicine Cardiovascular Disease | DX: Z45.02 Encounter for adjustment and management of automatic implantable cardiac defibrillator (principal); I48.0 Paroxysmal atrial fibrillation; I50.20 Unspecified systolic (congestive) heart failure | CPT/HCPCS: 93005; 93283; 99212 ==

== ENCOUNTER 2021-12-16 09:09 | Outpatient (REF) | payer OTHER, SELFPAY ==
[2021-12-16 11:29] LABS: Urine Cytology See Pathology rpt
[2021-12-16 11:29] LABS: MANUAL DIFF FLAG NO
[2021-12-16 11:36] LABS: Appearance Urine CLEAR; Color Urine STRAW; Glucose Urine UA >=1000 MG/DL (NEG); Leukocyte Esterase Urine NEG (NEG); Nitrite Urine NEG (NEG); Specific Gravity - Urine <= 1.005 (1.005-1.025); Urine Blood TRACE (NEG); Urine Ketones NEG (NEG); Urine Protein NEG (NEG-TRACE)
[2021-12-16 11:51] LABS: Basophils Percent Auto 0.4 % (0-2); Eosinophils Absolute Auto 0.4 X10*3/uL (0.0-0.4); Eosinophils Percent Auto 3.8 % (0-4); Hematocrit 52.7 % (42.0-52.0); Hemoglobin 16.8 g/dl (14.0-18.0); Imm Gran Abs Auto 0.04 X10*3/uL (0.00-0.03); Imm Gran Pct Auto 0.4 % (0.0-0.4); Lymphocytes Absolute Auto 2.4 X10*3/uL (1.2-4.9); Lymphocytes Percent Auto 26.4 % (20-40); Mean Corpuscular HGB Conc 31.9 g/dl (31.0-36.0); Mean Corpuscular Hemoglobin 29.3 pg (27.0-33.0); Mean Corpuscular Volume 91.8 fL (80.0-98.0); Mean Platelet Volume 10.4 fL (9.4-12.4); Monocytes Absolute Auto 0.6 X10*3/uL (0.1-1.2); Monocytes Percent Auto 6.4 % (2-11); Neutrophils Absolute Auto 5.8 x10*3/uL (2.0-8.3); Neutrophils Percent Auto 62.6 % (45-73); Platelet Count 255 X10*3/uL (160-400); Red Blood Count 5.74 X10*6/uL (4.60-5.80); White Blood Count 9.3 X10*3/uL (4.8-10.8)
[2021-12-16 12:01] LABS: RBC Urine 0-2 /HPF (0); Squamous Epithelial Cell Urine TRACE /LPF; WBC Urine 0 /HPF (0-4)
[2021-12-16 12:06] LABS: Anion Gap 13 (12-20); Blood Urea Nitrogen 16 mg/dL (9-16); Calcium 8.9 mg/dL (8.4-10.2); Carbon Dioxide 31 mmol/L (22-29); Chloride 101 mmol/L (96-108); Estimated Glomerular Filt Rate > 60; Glucose Random 188 mg/dL (60-115); Potassium 4.2 mmol/L (3.3-5.1); Sodium 141 mmol/L (135-145)
[2021-12-16 12:15] LABS: B Type Natriuretic Peptide 274 pg/mL (<100)
[2021-12-16 12:50] LABS: Anion Gap 14 (12-20); Blood Urea Nitrogen 16 mg/dL (9-16); Carbon Dioxide 30 mmol/L (22-29); Chloride 103 mmol/L (96-108); Estimated Glomerular Filt Rate > 60; Glucose Random 186 mg/dL (60-115); Potassium 4.4 mmol/L (3.3-5.1); Sodium 143 mmol/L (135-145)
[2021-12-16 13:02] LABS: Total Protein Urine Random < 7 mg/dL (<12)
== END 2021-12-16 09:10 | disposition home or self-care (01) ==
LOC: HO.HMGCLDS 09:09
PROVIDERS: Absent Provider Internal Medicine; PCP Nurse Practitioner Family; Referring Provider Internal Medicine Cardiovascular Disease; Visit Provider Internal Medicine Hypertension Specialist
DX: E87.5 Hyperkalemia (principal); I25.10 Atherosclerotic heart disease of native coronary artery without angina pectoris; I50.20 Unspecified systolic (congestive) heart failure; I42.9 Cardiomyopathy, unspecified; I47.2 Ventricular tachycardia; I48.0 Paroxysmal atrial fibrillation; J20.9 Acute bronchitis, unspecified; J44.0 Chronic obstructive pulmonary disease with (acute) lower respiratory infection; R31.29 Other microscopic hematuria; R79.89 Other specified abnormal findings of blood chemistry; N17.9 Acute kidney failure, unspecified
CPT/HCPCS: 36415; 80048; 81001; 83880; 84156; 84443; 85025; 87086; 88112

== ENCOUNTER → 2022-02-16 09:48 | Outpatient (BNVA) | payer OTHER, SELFPAY | PROVIDERS: PCP Nurse Practitioner Family; Visit Provider Physician Assistant | DX: M75.82 Other shoulder lesions, left shoulder (principal) | CPT/HCPCS: 20610; 99212; J1040 ==

== ENCOUNTER → 2022-02-18 13:30 | Outpatient (REF) | payer OTHER, SELFPAY ==
--- NOTE | 2022-02-18 13:34 | CA_ITS ---
Transthoracic Echocardiogram Patient (Last, First, Middle): Jr Cruz, Gender: Male Date of : 1965 Age: 56 Procedure Date: 02/18/2022 Procedure Type: Transthoracic Echocardiogram Location: OP Height: 180.34 cm Weight: 115.67 kg BSA: 2.34 m2 Heart Rate: 71 bpm Window Caser: RACHEL Referring MD: Bakari Andrew MD Symptoms: I42.9 - Cardiomyopathy, unspecified Study Quality: Technically Difficult/BSA/Contrast ECG Rhythm: Sinus Conclusions: - The left ventricular systolic function is severely decreased. The calculated ejection fraction is 25% by biplane method. - Evidence suggests grade III (severe) diastolic dysfunction. Findings Procedure Information Contrast agent, definity, is being given per protocol without apparent complications. Left Ventricle Normal left ventricular cavity size. The left ventricular systolic function is severely decreased. The calculated ejection fraction is 25% by biplane method. E/E prime ratio is >15, consistent with elevated filling pressures. Evidence suggests grade III (severe) diastolic dysfunction. Right Ventricle Normal right ventricular cavity size and systolic function. Venous The inferior vena cava is normal in size and collapses greater than 50% with inspiration. Prior Study Comparison No significant change compared to prior study dated: 06/24/2021. Measurements 2D Linear Measurements IVSd: 1.06 0.6-0.9/0.6-1.0 cm LVIDd: 5.57 3.9-5.3/4.2-5.9 cm LVIDd Index: 2.38 2.4-3.2/2.2-3.1 cm/m2 LVIDs: 5.00 2.0-3.6 cm LVPWd: 1.01 0.7-1.1 cm LV Mass: 284.06 67-162/88-224 g LV Mass Index: 121.39 43-95/49-115 g/m2 LVOT Diam: 2.50 3.0+(-)1.3 cm 2D Systolic Function EF 4C: 25.50 >55% EF 2C: 28.30 >55% EF BiP: 25.00 >55% Mitral Valve MV Pk E: 1.16 MV PK A: 0.29 MV Decel Time: 190.00 E/A: 4.00 E'Medial: 4.05 E/E' Med: 28.60 PHT: 56.00 MVA PHT: 3.93 Decel Essex: 6.12 LVOT LVOT Pk Rashawn: 0.84 LVOT Mn Rashawn: 0.65 LVOT VTI: 0.15 LVOT Pk Grad: 3.00 LVOT Mn Grad: 2.00 LVOT Diam: 2.50 LVOT Area: 4.91 Diastolic Function MV Pk E: 1.16 MV Pk A: 0.29 E/A: 4.00 E'Medial: 4.05 E/E' Med: 28.60 Right Ventricle TAPSE (mm): 23.30 TVS' Rashawn: 9.00 Tricuspid Valve RA Press: 3.00 Updated in Other Vendor System with Status of Final Suleiman Pham MD electronically signed on 02/20/2022 9:06:04 AM with status of Final
== END ==
LOC: HO.CARD 13:30
PROVIDERS: Visit Provider Internal Medicine Cardiovascular Disease
DX: I42.9 Cardiomyopathy, unspecified (principal)
CPT/HCPCS: 93308; Q9957

== ENCOUNTER → 2022-03-25 14:21 | Outpatient (BNVA) | payer OTHER, SELFPAY | PROVIDERS: PCP Nurse Practitioner Family; Visit Provider Internal Medicine Cardiovascular Disease | DX: I50.20 Unspecified systolic (congestive) heart failure (principal); I48.0 Paroxysmal atrial fibrillation; I25.10 Atherosclerotic heart disease of native coronary artery without angina pectoris; Z95.810 Presence of automatic (implantable) cardiac defibrillator | CPT/HCPCS: 93005; 99212 ==

== ENCOUNTER 2022-08-28 14:37 | Outpatient (REF) | payer OTHER, SELFPAY ==
--- NOTE | ~2022-08-28 | CT_ITS ---
EXAMINATION: CT CHEST SCREENING CLINICAL INFORMATION: Smoker of one pack per day for 43 years. COMPARISON: None. TECHNIQUE: Multidetector volumetric CT imaging of the chest is performed without contrast using low dose technique. Additional 2D coronal and sagittal reformatted images and axial 3D maximum intensity projection (MIP) images are generated on the CT workstation. This CT examination was performed using dose optimization techniques as appropriate, variously including the following: *Automated exposure control *Adjustment of mA and/or kV according to patient size (this includes techniques or standardized protocols for targeted exams where dose is matched to indication/reason for exam; i.e. extremities or head) *Use of iterative reconstruction technique DLP: 76 mGy-cm. FINDINGS: LUNGS: The lungs are well expanded with mild with atelectatic changes in the right lung base. Slightly more prominent right lower lobe. MEDIASTINUM: The thyroid lobes are symmetric and normal. The central trachea and bronchi are widely patent. There is a electrode in the right atrium and right ventricle. No abnormal-sized mediastinal or hilar lymph nodes seen.. CORONARY ARTERY CALCIFICATION: Moderate coronary artery calcifications are present. PLEURA: There is small right pleural effusion with thickening. AXILLA: No lymphadenopathy. UPPER ABDOMEN: Visualized liver, spleen, pancreas and bilateral adrenal glands are unremarkable. OSSEOUS STRUCTURES: No aggressive lytic or sclerotic process seen. There is mild spondylosis throughout dorsal spine. CT/CT lung screening IMPRESSION: Small right pleural effusion or thickening with right basilar atelectasis. ASSESSMENT: Lung-RADS category 1: Negative. RECOMMENDATION: Low-dose annual CT chest.
== END 2022-08-28 14:38 | disposition home or self-care (01) ==
LOC: HO.CT 14:37
PROVIDERS: PCP Nurse Practitioner Family; Visit Provider Physician Assistant Medical
DX: Z12.2 Encounter for screening for malignant neoplasm of respiratory organs (principal); F17.210 Nicotine dependence, cigarettes, uncomplicated
CPT/HCPCS: 71271; G0296

== ENCOUNTER 2022-10-13 13:40 | Outpatient (REF) | payer OTHER, SELFPAY ==
[2022-10-13 17:05] LABS: Urine Cytology See Pathology rpt
== END 2022-10-13 13:41 | disposition home or self-care (01) ==
LOC: HO.LNP 13:40
PROVIDERS: PCP Nurse Practitioner Family; Visit Provider Nurse Practitioner Family
DX: R31.29 Other microscopic hematuria (principal); E11.69 Type 2 diabetes mellitus with other specified complication; N52.1 Erectile dysfunction due to diseases classified elsewhere
CPT/HCPCS: 88112; 99202

== ENCOUNTER 2022-10-29 06:52 | Outpatient (REF) | payer OTHER, SELFPAY ==
[2022-10-29 11:12] LABS: MANUAL DIFF FLAG NO
[2022-10-29 11:25] LABS: Appearance Urine Clear; Color Urine Yellow; Glucose Urine UA >=1000 mg/dL (Negative); Leukocyte Esterase Urine Negative (Negative); Nitrite Urine Negative (Negative); PH 5.5 (5.0-9.0); Specific Gravity - Urine 1.025 (1.005-1.025); UMIC TRIGGER UACC YES; Urine Blood Negative (Negative); Urine Ketones Negative (Negative); Urine Protein Trace mg/dL (Neg-Trace)
[2022-10-29 11:31] LABS: Bacteria Urine None Seen (None Seen); Hyaline Casts Urine 0-2 /LPF (0-2); RBC Urine 0-2 /HPF (0-2); Squamous Epithelial Cell Urine 0-2 /HPF (0-2); WBC Urine 0-5 /HPF (0-5)
[2022-10-29 11:36] LABS: Basophils Absolute Auto 0.1 X10*3/uL (0.0-0.2); Basophils Percent Auto 0.7 % (0-2); Eosinophils Absolute Auto 0.3 X10*3/uL (0.0-0.4); Eosinophils Percent Auto 2.4 % (0-4); Hemoglobin 17.2 g/dl (14.0-18.0); Imm Gran Abs Auto 0.03 X10*3/uL (0.00-0.03); Imm Gran Pct Auto 0.2 % (0.0-0.4); Lymphocytes Absolute Auto 3.1 X10*3/uL (1.2-4.9); Lymphocytes Percent Auto 25.4 % (20-40); Mean Corpuscular HGB Conc 30.6 g/dl (31.0-36.0); Mean Corpuscular Hemoglobin 27.3 pg (27.0-33.0); Mean Corpuscular Volume 89.3 fL (80.0-98.0); Mean Platelet Volume 10.6 fL (9.4-12.4); Monocytes Absolute Auto 0.7 X10*3/uL (0.1-1.2); Monocytes Percent Auto 5.7 % (2-11); Neutrophils Percent Auto 65.6 % (45-73); Platelet Count 275 X10*3/uL (160-400); Red Blood Count 6.29 X10*6/uL (4.60-5.80); Red Cell Distribution Width 16.2 % (11.0-16.0); White Blood Count 12.3 X10*3/uL (4.8-10.8)
[2022-10-29 11:37] LABS: Hematocrit 56.2 % (42.0-52.0)
[2022-10-29 12:19] LABS: Creatinine Urine 182.36 mg/dL; Protein/Creatinine Ratio, Ur 0.09 (<0.2); Total Protein Urine Random 16 mg/dL (<12)
[2022-10-29 12:29] LABS: PSA,Total (Free>4and<10) 0.24 ng/mL (0.00-4.00)
[2022-10-29 12:43] LABS: Alanine Aminotransferase 11 U/L (0-40); Alkaline Phosphatase 104 U/L (39-117); Anion Gap 15 (12-20); Aspartate Amino Transferase 13 U/L (5-37); Bilirubin Total 0.7 mg/dL (0.0-1.0); Blood Urea Nitrogen 12 mg/dL (9-16); Calcium 9.3 mg/dL (8.4-10.2); Carbon Dioxide 33 mmol/L (22-29); Chloride 101 mmol/L (96-108); Cholesterol 125 mg/dL; Estimated Glomerular Filt Rate > 60; Glucose Fasting 104 mg/dL (60-99); HDL Cholesterol 36 mg/dL; LDL Cholesterol Calculated 60 mg/dl; Potassium 4.9 mmol/L (3.3-5.1); Sodium 144 mmol/L (135-145); Total Protein 6.8 g/dL (6.5-8.0); Triglycerides 148 mg/dL
[2022-10-29 12:50] LABS: Prostate Specific Antigen Scr 0.23 ng/mL (<0.05-4.0); TSH reflex Free T4 1.32 uIU/mL (0.32-4.0)
[2022-11-03 22:28] LABS: Prot Elec - Albumin 3.8 g/dL (3.8-4.8); Prot Elec - Alpha1 0.3 g/dL (0.2-0.3); Prot Elec - Alpha2 0.9 g/dL (0.5-0.9); Prot Elec - Beta 1 0.5 g/dL (0.4-0.6); Prot Elec - Beta 2 0.5 g/dL (0.2-0.5); Prot Elec - Gamma 0.9 g/dL (0.8-1.7)
[2022-11-05 14:42] LABS: Testosterone, Free 37.1 pg/mL (35.0-155.0); Testosterone, Total 350 ng/dL (250-1100)
== END 2022-10-29 06:53 | disposition home or self-care (01) ==
LOC: HO.HMGCLDS 06:52
PROVIDERS: Absent Provider Nurse Practitioner Family; PCP Nurse Practitioner Family; Referring Provider Internal Medicine Hypertension Specialist; Visit Provider Nurse Practitioner Family
DX: N52.1 Erectile dysfunction due to diseases classified elsewhere (principal); N40.0 Benign prostatic hyperplasia without lower urinary tract symptoms; N17.9 Acute kidney failure, unspecified; R31.29 Other microscopic hematuria; E11.69 Type 2 diabetes mellitus with other specified complication; Z12.5 Encounter for screening for malignant neoplasm of prostate
CPT/HCPCS: 36415; 80053; 80061; 81001; 84153; 84156; 84165; 84402; 84403; 84443; 85025

== ENCOUNTER 2022-11-18 10:07 | Outpatient (REF) | payer OTHER, SELFPAY ==
--- NOTE | ~2022-11-18 | CT_ITS ---
EXAMINATION: CT ABDOMEN AND PELVIS WITHOUT AND WITH CONTRAST CLINICAL INFORMATION: Microscopic hematuria COMPARISON: None available. TECHNIQUE: Noncontrast CT of the abdomen and pelvis is performed followed by split bolus contrast-enhanced images using 85 mL Omnipaque 350 contrast.? Postcontrast imaging is performed during the combined nephrogram and excretion phase. Sagittal and coronal reformatted images were obtained on the technologist's workstation for both the precontrast and postcontrast phases. This CT examination was performed using dose optimization techniques as appropriate, variously including the following: *Automated exposure control *Adjustment of mA and/or kV according to patient size (this includes techniques or standardized protocols for targeted exams where dose is matched to indication/reason for exam; i.e. extremities or head) *Use of iterative reconstruction technique DLP: 1090 mGy-cm FINDINGS: LUNG BASES: Minimal atelectatic changes seen in the right lung base with a small pleural effusion and thickening. Heart size is normal. There are pacer electrodes in the right atrium and right ventricle. LIVER, GALLBLADDER, AND BILIARY TREE: The liver is normal in size, shape, and attenuation. No focal hepatic lesion or biliary ductal dilatation is present. The gallbladder is unremarkable with no evidence of radiopaque gallstones, gallbladder wall thickening, or obvious pericholecystic inflammatory changes. PANCREAS: Unremarkable. SPLEEN: Unremarkable. ADRENAL GLANDS: Unremarkable. KIDNEYS AND URETERS: There are no radiopaque renal calculi seen. Postcontrast, there are bilateral symmetrical nephrograms with left kidney measuring 11.9 cm in length and right kidney measuring 12.6 cm in length. There is no renal cyst, enhancing renal mass or hydronephrosis. There is mild bilateral perinephric stranding. There is good opacification of bilateral kidney pelvises and entire left ureter which appears unremarkable. The right proximal and distal ureter are of normal caliber. BLADDER: The bladder is opacified with excreted urinary contrast and appears unremarkable. There is no bladder wall thickening. GASTROINTESTINAL TRACT: There is scattered stool, diverticuli and gas seen throughout the colon without significant distention. The small bowel loops are normal caliber. The appendix is normal caliber. There is no free air. ABDOMINAL WALL: Postsurgical changes are seen along the periumbilical region from previous intervention. LYMPH NODES: Normal. VASCULAR: Unremarkable. PELVIC VISCERA: Diffuse sigmoid diverticulosis without diverticulitis. No free fluid. The prostate gland is mildly enlarged. OSSEUS STRUCTURES: No aggressive lytic or sclerotic process seen. The superior endplate Schmorl's node and deformity, chronic. CT/CT urogram IMPRESSION: 1. No radiopaque urolith, enhancing renal mass or hydronephrosis. 2. The bladder is unremarkable. 3. Diffuse sigmoid and scattered rest of colon diverticulosis without diverticulitis.
== END 2022-11-18 10:08 | disposition home or self-care (01) ==
LOC: HO.CT 10:07
PROVIDERS: PCP Nurse Practitioner Family; Visit Provider Nurse Practitioner Family
DX: R31.29 Other microscopic hematuria (principal)
CPT/HCPCS: 74178

== ENCOUNTER → 2022-11-25 14:12 | Outpatient (BNVA) | payer OTHER, SELFPAY | PROVIDERS: PCP Nurse Practitioner Family; Visit Provider Nurse Practitioner Family | DX: N40.0 Benign prostatic hyperplasia without lower urinary tract symptoms (principal); E11.69 Type 2 diabetes mellitus with other specified complication; N52.1 Erectile dysfunction due to diseases classified elsewhere | CPT/HCPCS: 99212 ==

== ENCOUNTER → 2022-12-15 15:21 | Outpatient (BNVA) | payer OTHER, SELFPAY | PROVIDERS: Visit Provider Nurse Practitioner Family | DX: Z01.818 Encounter for other preprocedural examination (principal); I50.20 Unspecified systolic (congestive) heart failure; I48.0 Paroxysmal atrial fibrillation; I25.10 Atherosclerotic heart disease of native coronary artery without angina pectoris; K21.9 Gastro-esophageal reflux disease without esophagitis; R14.0 Abdominal distension (gaseous); Z86.010 Personal history of colon polyps; Z79.01 Long term (current) use of anticoagulants; Z79.82 Long term (current) use of aspirin; Z79.899 Other long term (current) drug therapy; Z45.018 Encounter for adjustment and management of other part of cardiac pacemaker | CPT/HCPCS: 93005; 99212 ==

== ENCOUNTER 2022-12-28 12:00 | Day surgery (SDC) | payer OTHER, SELFPAY ==
[2022-12-23 13:00] VITALS: BMI 31.0
--- NOTE | 2022-12-23 13:53 | HO.ANESPROP2 ---
Documented by User: Heavenly Miranda NP 12/25/22 09:19 HPI - Anesthesia Eval Consult details Narrative: 57yo M for Colonoscopy ICD in situ (EF 25%) Eliquis for afib - OK to hold preop per cardio Cardiology eval 12/15/22: stable with 6 month f/u. Exertional SOB d/t COPD/smoking. Smoking cessation stressed PMFSH Active Problems Active Problems: All Active Problems (Updated 12/17/22 @ 13:32 by Phi Crisostomo, [facility]) Wound of foot (Acute) Leukocytosis (Acute) Erectile dysfunction associated with type 2 diabetes mellitus (Acute) BPH (benign prostatic hyperplasia) (Acute) Microhematuria (Acute) ICD (implantable cardioverter-defibrillator) in place (Acute) CAD (coronary artery disease) (Acute) Cardiomyopathy (Acute) Paroxysmal atrial fibrillation (Acute ~2017) Heart failure with reduced ejection fraction (Acute) Type 2 diabetes mellitus without complications (Acute) COPD (chronic obstructive pulmonary disease) (Acute) Sleep apnea (Acute) Nicotine dependence, cigarettes, uncomplicated (Acute) Hyperkalemia (Acute) Pneumonia due to COVID-19 virus (Acute) Edema, peripheral (Acute) Tubular adenoma of colon (Acute ~2018) Low TSH level (Acute) Past Medical History Medical History CAD (coronary artery disease) Cardiomyopathy COPD (chronic obstructive pulmonary disease) History of COVID-19 Hypertensive retinopathy ICD (implantable cardioverter-defibrillator) in place Microhematuria Nicotine dependence, cigarettes, uncomplicated KIMANI (obstructive sleep apnea) Paroxysmal atrial fibrillation (~2017) Sleep apnea Tendinitis of left rotator cuff Tubular adenoma of colon (~2018) Type 2 diabetes mellitus without complications Family History Family History Father Atherosclerosis Mother Cerebral aneurysm Maternal Grandmother Unknown family medical history Mother Cerebral hemorrhage Father Coronary artery disease Surgical History Surgical History History of ankle surgery History of cardiac cath History of cardiac radiofrequency ablation History of cardioversion History of colonoscopy History of esophagogastroduodenoscopy History of heart artery stent History of implantable cardiac defibrillator (ICD) History of inguinal hernia History of umbilical hernia Social History Social History Household Members: Significant Other Housing: House Are you a primary career guidance technician to a significant other at home: No Do you presently have visiting nurse or other home services: No Alcohol intake: former Patient Tobacco Use Status: Current everyday Tobacco user Tobacco use type: Cigarette Cigarette Packs Per Day: 1 Years Smoked: (current smoker - onset 14yo, 1ppd x 43yrs, 40pyh) e-Cigarette/Vaping Use: Former Use Second Hand Smoke Exposure: Yes Have you been hit, kicked, punched, or otherwise hurt by someone within the past year? If so, by whom?: No Are you DNR?: No Advance Directives: No Advance Directives Information Provided: Yes Advance Directives on File: No Recently lost weight without trying: No Eating poorly because of decreased appetite: No Nutrition Risks: No Nutritional Risk Poor oral hygiene: Yes (missing teeth and a temporary crown in place) service: No Current occupational status: unemployed and disabled Current occupation: rt handed Cognitive needs: No Hearing needs: No Vision needs: No Meds Allergies Allergy/AdvReac Type Severity Reaction Status Date / Time No Known Allergies Allergy Verified 12/17/22 13:12 [No Known Allergies*] Home Medications Medication Instructions Recorded Confirmed Last Taken Type umeclidinium 62.5 mcg/actuation 1 puff PO DAILY 10/30/20 12/15/22 07/19/21 History blister powder for inhalation (Incruse Ellipta) albuterol sulfate 90 mcg/actuation 2 puff PO Q6H PRN wheezing 06/23/21 12/23/22 Unknown History aerosol inhaler aspirin 81 mg tablet,delayed 81 mg PO DAILY 07/16/22 12/23/22 Unknown History release (Adult Low Dose Aspirin) cholecalciferol (vitamin D3) 50 50 mcg PO DAILY 12/23/22 12/23/22 Unknown History mcg (2,000 unit) tablet digoxin 125 mcg (0.125 mg) tablet 125 mcg PO DAILY 12/23/22 12/23/22 Unknown History furosemide 40 mg tablet 40 mg PO TID 12/23/22 12/23/22 Unknown History Exam Exam Date and Time: December 23, 2022 1353 Height,Weight and Vital Signs: Height 5 ft 11 in Weight 100.698 kg Narrative Narrative: ECHO 01/2022 Conclusions: - The left ventricular systolic function is severely decreased.? The calculated ejection fraction is 25% by biplane method. ? ? ? - Evidence suggests grade III (severe) diastolic dysfunction.? ? Cardiac Device Check 11/2022 Details: Dual-chamber [place] ICD in place.? Impedance monitoring was turned on.? Device is programmed in DDDR at 60 beats per minute.? Atrial pacing 27% of time.? One episode of nonsustained VT noted.? No episodes of atrial fibrillation noted.? Atrial and ventricular pacing thresholds excellent and reprogrammed to enhance battery life.? Atrial ventricular sensing is adequate.? Pacing and shock lead impedance is stable.? Battery life is at about 8 years [id number] Cardiac Device Check, dual lead implantable defibrillator Procedure code (CPT) selection complete EKG 11/2022 Details: EKG shows normal sinus rhythm with left axis deviation with inferior infarct and poor R-wave progression consistent with possible anterior infarct. Assessment and Plan Assessment Anesthesia Assessment: Chart Reviewed Documented by User: Allison Boswell MD 12/28/22 13:52 PMFSH Past Medical History Medical History CAD (coronary artery disease) Cardiomyopathy COPD (chronic obstructive pulmonary disease) History of COVID-19 Hypertensive retinopathy ICD (implantable cardioverter-defibrillator) in place Microhematuria Nicotine dependence, cigarettes, uncomplicated KIMANI (obstructive sleep apnea) Paroxysmal atrial fibrillation (~2017) Sleep apnea Tendinitis of left rotator cuff Tubular adenoma of colon (~2018) Type 2 diabetes mellitus without complications Family History Family History Father Atherosclerosis Mother Cerebral aneurysm Maternal Grandmother Unknown family medical history Mother Cerebral hemorrhage Father Coronary artery disease Family history of problems with anesthesia: No Surgical History Surgical History History of ankle surgery History of cardiac cath History of cardiac radiofrequency ablation History of cardioversion History of colonoscopy History of esophagogastroduodenoscopy History of heart artery stent History of implantable cardiac defibrillator (ICD) History of inguinal hernia History of umbilical hernia History of Problems with Anesthesia: No Social History Social History Household Members: Significant Other Housing: House Are you a primary career guidance technician to a significant other at home: No Do you presently have visiting nurse or other home services: No Alcohol intake: former Patient Tobacco Use Status: Current everyday Tobacco user Tobacco use type: Cigarette Cigarette Packs Per Day: 1 Years Smoked: (current smoker - onset 14yo, 1ppd x 43yrs, 40pyh) e-Cigarette/Vaping Use: Former Use Second Hand Smoke Exposure: Yes Have you been hit, kicked, punched, or otherwise hurt by someone within the past year? If so, by whom?: No Are you DNR?: No Advance Directives: No Advance Directives Information Provided: Yes Advance Directives on File: No Recently lost weight without trying: No Eating poorly because of decreased appetite: No Nutrition Risks: No Nutritional Risk Poor oral hygiene: Yes (missing teeth and a temporary crown in place) service: No Current occupational status: unemployed and disabled Current occupation: rt handed Cognitive needs: No Hearing needs: No Vision needs: No Meds Allergies Allergy/AdvReac Type Severity Reaction Status Date / Time No Known Allergies Allergy Verified 12/17/22 13:12 [No Known Allergies*] Home Medications Medication Instructions Recorded Confirmed Last Taken Type umeclidinium 62.5 mcg/actuation 1 puff PO DAILY 10/30/20 12/15/22 07/19/21 History blister powder for inhalation (Incruse Ellipta) albuterol sulfate 90 mcg/actuation 2 puff PO Q6H PRN wheezing 06/23/21 12/23/22 Unknown History aerosol inhaler aspirin 81 mg tablet,delayed 81 mg PO DAILY 07/16/22 12/23/22 Unknown History release (Adult Low Dose Aspirin) cholecalciferol (vitamin D3) 50 50 mcg PO DAILY 12/23/22 12/23/22 Unknown History mcg (2,000 unit) tablet digoxin 125 mcg (0.125 mg) tablet 125 mcg PO DAILY 12/23/22 12/23/22 Unknown History furosemide 40 mg tablet 40 mg PO TID 12/23/22 12/23/22 Unknown History Exam Airway Mallampati Class: III TM Dist: >3cm Neck ROM: Full Heart: paced Lungs: crackles , resp treatment given for wheezing Assessment and Plan Assessment Anesthesia Assessment: Anesthesia Plan Discussed and Smoking Cess. Discussed Final Anesthetic Review Family History of Problems with Anesthesia: No History of Problems with Anesthesia: No NPO: Yes ASA Class: III Final Preanesthetic Review: No Changes in Pt Med Stat, Meds/Allgs Chart Reviewed, Consent Obtained/Reviewed and Anes Risks/Benef Reviewed Patient Risk: High Procedure Risk: Intermediate Anesthetic Plan Anesthetic Plan: MAC: Disposition: Standard PACU (high risk with Afib , cardiomyopathy, AICD , diabetic, CAD, current smoker )
[2022-12-28 12:34] VITALS: BP 111/66; PULSE 67; RESP 20; TEMP 36.8; O2SAT 94
[2022-12-28 12:59] VITALS: PULSE 64; RESP 17; O2SAT 93
--- NOTE | 2022-12-28 13:12 | MHC.SHP ---
Pre-Procedural Eval Section A Date of Service: 12/28/22 The patient is an INPATIENT: No The History & Physical has been completed within 30 days and I have reviewed it.: No Section B Chief Complaint: Benign neoplasm of colon, unspecified Relevant Family History (Specify if Yes): No Relevant Social History: Tobacco Use Present Medications: see Short Stay Collaborative assessment Medical History: Significant History (CAD (coronary artery disease) Cardiomyopathy COPD (chronic obstructive pulmonary disease) History of COVID-19 Hypertensive retinopathy ICD (implantable cardioverter-defibrillator) in place Microhematuria Nicotine dependence, cigarettes, uncomplicated KIMANI (obstructive sleep apnea) Paroxysmal atrial f) History of Previous Operations: Relevant previous surgery/procedure and date(s) (History of cardiac cath History of cardiac radiofrequency ablation History of cardioversion History of colonoscopy History of esophagogastroduodenoscopy History of heart artery stent History of implantable cardiac defibrillator (ICD) History of inguinal hernia History of umbilical hernia) Allergies: Allergies Allergy/AdvReac Type Severity Reaction Status Date / Time No Known Allergies Allergy Verified 12/17/22 13:12 [No Known Allergies*] Review of Systems Sugical H&P ROS: Negative: Constitution, Cardiovascular, Respiratory and Gastrointestinal Exam Surgical H&P Exam: Normal: Heart, Normal: Lungs, Normal: Extremities and Normal: Abdomen Plan Diagnosis/Plan: Unchanged I have reviewed the history and physical and performed a pertinent physical examination on my patient. No changes have occurred unless specified. Time Spent With Patient Time: Total time managing care of this patient today ____ minutes.
--- NOTE | 2022-12-28 14:13 | W.PM.OPN ---
Operative Note Operative Note Date of Service: 12/28/22 Narrative: COLONOSCOPY TILL CECUM Pre-op diagnosis: colon cancer screening, history of multiple colon polyps Post-op diagnosis:? diverticulosis, hemorrhoids Endoscopist:? Gerardo Anaya MD Anesthesia:?MAC Consent: Indications for the procedure and potential complications of bleeding, perforation, reaction to medications and missed diagnosis were discussed with the patient and informed consent was obtained. Instrument: Olympus CF H 190 L variable stiffness adult colonoscope Monitoring: Vital signs and clinical assessment, intermittent blood pressure monitoring, continuous EKG monitoring, Pulse oximetry and Carbon Dioxide monitoring were done throughout the procedure. Please see anesthesia flowsheet. Colon withdrawl time was 14 minutes. Procedure: The patient was placed in the left lateral decubitis position and pre-procedure medications were administered. After a digital rectal examination of the ano-rectum, the video colonoscope was inserted into the rectum and advanced through the colon to the cecum. The colonoscope was slowly withdrawn in a retrograde panoramic fashion and the colon mucosa was carefully examined including a retroflexed view of the rectum. Findings and interventions are described below. Procedure Difficulty: Without difficulty Findings: Terminal Ileum: Not evaluated Cecum: Normal Ascending Colon: Normal Transverse Colon: Normal Descending Colon: Moderate diverticulosis Sigmoid Colon: Moderate diverticulosis Rectum: Normal Ano-rectum: Moderate internal hemorrhoids Colon preparation: Good after copious irrigation Impression and Post Procedure Diagnosis: Colonoscopy Findings: No polyps were detected Moderate diverticulosis seen in the left colon Moderate hemorrhoids on retroflexed exam. Plan: Discontinue colon cancer screening due to multiple comorbidities (COPD, cardiomyopathy) with high risk for anesthesia. Above findings were reviewed with the patient.
[2022-12-28 14:50] VITALS: BP 132/66; PULSE 64; RESP 16; TEMP 37.2; O2SAT 98
[2022-12-28 14:55] VITALS: BP 130/56; PULSE 69; RESP 16; O2SAT 98
[2022-12-28 15:04] VITALS: BP 139/77; PULSE 68; RESP 16; TEMP 36.9; O2SAT 98
== END 2022-12-28 15:25 | disposition home or self-care (01) ==
PROVIDERS: PCP Nurse Practitioner Family; Visit Provider Internal Medicine Gastroenterology
PROC: 0DJD8ZZ Inspection of Lower Intestinal Tract, Via Natural or Artificial Opening Endoscopic (ICD-10-PCS; CPT 45378; principal; 2022-12-28 14:00)
DX: Z12.11 Encounter for screening for malignant neoplasm of colon (principal); K57.30 Diverticulosis of large intestine without perforation or abscess without bleeding; K64.8 Other hemorrhoids; Z86.010 Personal history of colon polyps; J44.9 Chronic obstructive pulmonary disease, unspecified; I25.10 Atherosclerotic heart disease of native coronary artery without angina pectoris; I50.20 Unspecified systolic (congestive) heart failure; I48.0 Paroxysmal atrial fibrillation; F17.210 Nicotine dependence, cigarettes, uncomplicated; Z79.01 Long term (current) use of anticoagulants; Z95.810 Presence of automatic (implantable) cardiac defibrillator
CPT/HCPCS: G0105; 82947; 94640; J2370; J2371

== ENCOUNTER 2022-12-31 08:32 | Outpatient (REF) | payer OTHER, SELFPAY | END 2022-12-31 08:33 | disposition home or self-care (01) | LOC: HO.MRI 08:32 | PROVIDERS: PCP Nurse Practitioner Family; Visit Provider Nurse Practitioner Family | DX: S91.302A Unspecified open wound, left foot, initial encounter (principal) | CPT/HCPCS: 73720; A9585 ==

== ENCOUNTER 2023-01-12 13:45 | Outpatient (RCR) | payer OTHER, SELFPAY | END 2023-06-25 15:00 | disposition home or self-care (01) | LOC: HO.WCC 13:45 | PROVIDERS: PCP Nurse Practitioner Family; Visit Provider Physician Assistant | DX: E11.621 Type 2 diabetes mellitus with foot ulcer (principal); L97.522 Non-pressure chronic ulcer of other part of left foot with fat layer exposed; L97.526 Non-pressure chronic ulcer of other part of left foot with bone involvement without evidence of necrosis; E11.51 Type 2 diabetes mellitus with diabetic peripheral angiopathy without gangrene; E11.40 Type 2 diabetes mellitus with diabetic neuropathy, unspecified; L84 Corns and callosities; I11.0 Hypertensive heart disease with heart failure; I50.9 Heart failure, unspecified; B96.20 Unspecified Escherichia coli [E. coli] as the cause of diseases classified elsewhere; F17.210 Nicotine dependence, cigarettes, uncomplicated; Z71.6 Tobacco abuse counseling; Z79.2 Long term (current) use of antibiotics; Z95.0 Presence of cardiac pacemaker | CPT/HCPCS: 11042; 11044; 15275; 87070; 87077; 87186; 87205; 99212; Q4187 ==

== ENCOUNTER 2023-03-29 07:54 | Outpatient (REF) | payer OTHER, SELFPAY | END 2023-03-29 07:55 | disposition home or self-care (01) | LOC: HO.US 07:54 | PROVIDERS: Visit Provider Physician Assistant | DX: L97.522 Non-pressure chronic ulcer of other part of left foot with fat layer exposed (principal) | CPT/HCPCS: 93923; 93926 ==

== ENCOUNTER 2023-05-06 09:27 | Outpatient (REF) | payer OTHER, SELFPAY | END 2023-05-06 09:28 | disposition home or self-care (01) | LOC: HO.LAB 09:27 | PROVIDERS: PCP Nurse Practitioner Family; Visit Provider Nurse Practitioner Family | DX: Z13.89 Encounter for screening for other disorder (principal) ==

== ENCOUNTER 2023-05-10 15:15 | Outpatient (REF) | payer OTHER, SELFPAY ==
[2023-05-10 15:45] LABS: MANUAL DIFF FLAG NO
[2023-05-10 16:00] LABS: Blood Urea Nitrogen 22 mg/dL (9-16); Estimated Glomerular Filt Rate 58
[2023-05-10 17:04] LABS: Basophils Absolute Auto 0.1 X10*3/uL (0.0-0.2); Basophils Percent Auto 0.8 % (0-2); Eosinophils Absolute Auto 0.2 X10*3/uL (0.0-0.4); Hematocrit 51.2 % (42.0-52.0); Hemoglobin 16.5 g/dl (14.0-18.0); Imm Gran Abs Auto 0.03 X10*3/uL (0.00-0.03); Imm Gran Pct Auto 0.3 % (0.0-0.4); Lymphocytes Absolute Auto 2.6 X10*3/uL (1.2-4.9); Lymphocytes Percent Auto 21.7 % (20-40); Mean Corpuscular HGB Conc 32.2 g/dl (31.0-36.0); Mean Corpuscular Hemoglobin 28.6 pg (27.0-33.0); Mean Corpuscular Volume 88.7 fL (80.0-98.0); Monocytes Absolute Auto 0.9 X10*3/uL (0.1-1.2); Monocytes Percent Auto 7.5 % (2-11); Neutrophils Absolute Auto 8.1 x10*3/uL (2.0-8.3); Neutrophils Percent Auto 67.7 % (45-73); Platelet Count 297 X10*3/uL (160-400); Red Blood Count 5.77 X10*6/uL (4.60-5.80); Red Cell Distribution Width 14.6 % (11.0-16.0)
== END 2023-05-10 15:16 | disposition home or self-care (01) ==
LOC: HO.LAB 15:15
PROVIDERS: PCP Nurse Practitioner Family; Visit Provider Radiology Vascular & Interventional Radiology
DX: D72.829 Elevated white blood cell count, unspecified (principal); S91.309A Unspecified open wound, unspecified foot, initial encounter; E11.9 Type 2 diabetes mellitus without complications; R79.89 Other specified abnormal findings of blood chemistry; R94.4 Abnormal results of kidney function studies; X58.XXXA Exposure to other specified factors, initial encounter; Y93.9 Activity, unspecified; Y92.9 Unspecified place or not applicable; Y99.9 Unspecified external cause status
CPT/HCPCS: 36415; 82565; 84443; 84520; 85025

== ENCOUNTER 2023-05-24 11:23 | Outpatient (REF) | payer OTHER, SELFPAY ==
--- NOTE | ~2023-05-24 | XR_ITS ---
EXAMINATION: XR FOOT, LEFT CLINICAL INFORMATION: Wound inferior to great toe; question osteomyelitis. COMPARISON: MRI left foot dated 12/31/2022. TECHNIQUE: AP, lateral, and oblique views of the left foot. FINDINGS: Bony alignment and mineralization are normal. No fracture, dislocation or left ankle joint effusion is seen. Boehler's angle is normal. There is a moderate plantar calcaneal spur. On the lateral view, there is mild soft tissue gas in the plantar forefoot, consistent with ulceration. The adjacent great toe sesamoid shows possible superficial cortical erosion. A tiny bunionette is seen. There are atherosclerotic calcifications. XR/XR foot LT min 3V IMPRESSION: There is soft tissue gas in the plantar forefoot. There is adjacent cortical erosion suspected of one of the sesamoid bones of the great toe, likely the medial. This could be further evaluated with MRI, if clinically indicated.
[2023-05-24 14:08] LABS: Blood Urea Nitrogen 14 mg/dL (9-16); Estimated Glomerular Filt Rate > 60
== END 2023-05-24 11:24 | disposition home or self-care (01) ==
LOC: HO.HMGCX 11:23
PROVIDERS: Absent Provider Physician Assistant; PCP Nurse Practitioner Family; Visit Provider Radiology Vascular & Interventional Radiology
DX: R79.89 Other specified abnormal findings of blood chemistry (principal); R94.4 Abnormal results of kidney function studies; L97.529 Non-pressure chronic ulcer of other part of left foot with unspecified severity
CPT/HCPCS: 36415; 73630; 82565; 84520

== ENCOUNTER → 2023-06-22 08:48 | Outpatient (REF) | payer OTHER, SELFPAY ==
--- NOTE | 2023-06-22 08:51 | CA_ITS ---
Transthoracic Echocardiogram Patient (Last, First, Middle): Jr Cruz, Gender: Male Date of : 1965 Age: 58 Procedure Date: 06/22/2023 Procedure Type: Transthoracic Echocardiogram Location: OP Height: 180.34 cm Weight: 102.06 kg BSA: 2.22 m2 Heart Rate: 64 bpm BP: 108 / 50 mmHg [employer] Specialist: RACHEL Referring MD: Bakari Andrew MD Symptoms: I50.20 - Unspecified systolic (congestive) heart failure Study Quality: Adequate w contrast ECG Rhythm: Sinus Conclusions: - The left ventricular systolic function is moderate to severely decreased. The visually estimated ejection fraction is between 30-35%. - Evidence suggests grade II (moderate) diastolic dysfunction. - No obvious valvular pathology seen on this study. Findings Procedure Information Contrast agent, definity, is being given per protocol without apparent complications. Left Ventricle Normal left ventricular cavity size. There is normal left ventricular wall thickness. The left ventricular systolic function is moderate to severely decreased. The visually estimated ejection fraction is between 30-35%. There is severe global hypokinesis. Evidence suggests grade II (moderate) diastolic dysfunction. Right Ventricle Mildly increased right ventricular cavity size. There is normal right ventricular systolic function. There is an ICD wire seen in the right ventricle. Atria Both atria are normal in size. Aortic Valve There is a normal trileaflet aortic valve. There is no aortic valve stenosis. There is no aortic valve regurgitation. Mitral Valve The mitral valve appears normal. There is no mitral valve regurgitation. There is no mitral valve stenosis. Pulmonic Valve The pulmonic valve is likely normal. Tricuspid Valve Normal tricuspid valve structure. There is trace tricuspid valve regurgitation. There is no evidence of pulmonary hypertension. Great Vessels The asc aorta is normal in size. Venous The inferior vena cava is normal in size and collapses greater than 50% with inspiration. Pericardium/Pleural There is no evidence of pericardial effusion. Prior Study Comparison Changes noted compared to prior study dated: 02/18/2022. Slightly higher LVEF (could also be related to image quality). Recommendations, Care & Conclusions No obvious valvular pathology seen on this study. Measurements 2D Linear Measurements IVSd: 0.77 0.6-0.9/0.6-1.0 cm LVIDd: 5.56 3.9-5.3/4.2-5.9 cm LVIDd Index: 2.50 2.4-3.2/2.2-3.1 cm/m2 LVIDs: 3.29 2.0-3.6 cm LVPWd: 0.52 0.7-1.1 cm LA Diam: 4.20 2.7-3.8/3.0-4.0 cm LAIDs Index: 1.89 1.5-2.3 cm/m2 LV Mass: 154.94 67-162/88-224 g LV Mass Index: 69.79 43-95/49-115 g/m2 LVOT Diam: 2.30 3.0+(-)1.3 cm 2D Systolic Function EF 4C: 42.80 >55% EF 2C: 39.40 >55% EF BiP: 41.40 >55% Mitral Valve MV Pk E: 0.91 MV PK A: 0.63 MV Decel Time: 218.00 E/A: 1.40 E'Lateral: 9.49 E'Medial: 4.87 E/E' Med: 18.70 E/E' Lat: 9.60 PHT: 64.00 MVA PHT: 3.44 Decel [place]: 4.19 Aortic Valve AoV Pk Rashawn: 1.36 AoV Pk Grad: 7.00 AFSANEH: 2.58 LVOT LVOT Pk Rashawn: 0.86 LVOT Mn Rashawn: 0.67 LVOT VTI: 0.20 LVOT Pk Grad: 3.00 LVOT Mn Grad: 2.00 LVOT Diam: 2.30 LVOT Area: 4.15 Diastolic Function MV Pk E: 0.91 MV Pk A: 0.63 E/A: 1.40 E'Medial: 4.87 E/E' Med: 18.70 E' Laterial: 9.49 E/E' Lat: 9.60 Right Ventricle TAPSE (mm): 22.00 TVS' Rashawn: 10.90 Tricuspid Valve TR Pk Rashawn: 2.74 TR Pk Grad: 30.00 RA Press: 3.00 RVSP: 33.00 Great Vessels Aorta Sinus of Valsalva: 3.60 2.0-3.5 cm Ao Asc: 3.30 2.1-3.4 cm Updated in Other Vendor System with Status of Final Suleiman Pham MD electronically signed on 06/23/2023 11:51:31 AM with status of Final
== END ==
LOC: HO.CARD 08:48
PROVIDERS: PCP Nurse Practitioner Family; Visit Provider Internal Medicine Cardiovascular Disease
DX: I50.20 Unspecified systolic (congestive) heart failure (principal)
CPT/HCPCS: 93306; Q9957

== ENCOUNTER → 2023-06-22 08:51 | Outpatient (BNV) | payer OTHER, SELFPAY | PROVIDERS: PCP Nurse Practitioner Family; Visit Provider Internal Medicine | DX: I50.20 Unspecified systolic (congestive) heart failure (principal) | CPT/HCPCS: 93306 ==

== ENCOUNTER 2023-07-02 11:27 | Outpatient (AMB) | payer OTHER, SELFPAY ==
[2023-07-02 11:40] VITALS: BP 120/60; PULSE 70; BMI 32.0
--- NOTE | 2023-07-02 11:40 | MHC.OFFVIS ---
Intake Vital Signs 07/02/23 11:40 Height 5 ft 11 in Weight 229 lb 11.547 oz BMI 32.0 BP 120/60 Blood Pressure Location Rt brachial Position Sitting Pulse 70 Intake Visit Reasons: 6 mth f/up echo/ device ck Intake Note: 6 mnth f/up echo/ device ck/ pt its feeling great. 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 Required: No Accompanied by: Self / Same As Patient Allergies No Known Allergies [No Known Allergies*] Allergy (Verified 12/17/22 13:12) Medication List - Last Reconciled 07/02/23 by Bakari Andrew MD albuterol sulfate 90 mcg/actuation 2 puffs PO Q6H PRN albuterol sulfate 2.5 mg (3 mL) inhalation QID PRN 30 days apixaban (Eliquis) 5 mg PO BID aspirin (Adult Low Dose Aspirin) 81 mg PO DAILY atorvastatin 40 mg PO BEDTIME 90 days cholecalciferol (vitamin D3) 50 mcg PO DAILY dofetilide 250 mcg PO Q12H 90 days dulaglutide 3 mg (0.5 mL) subcut KELLEY@0900 empagliflozin (Jardiance) 25 mg PO DAILY 90 days FreeStyle Lite Strips (blood sugar diagnostic) TID testing NS gabapentin 300 mg PO TID insulin aspart U-100 (Novolog FlexPen U-100 Insulin aspart) 5 units (0.05 mL) subcut TID 30 days insulin glargine (Lantus Solostar U-100 Insulin) 40 units (0.4 mL) subcut BEDTIME melatonin 3 mg PO BEDTIME PRN 30 days metformin 500 mg PO DAILY metoprolol succinate ER (Toprol XL) 50 mg PO Q12H omeprazole 20 mg PO DAILY@0630 90 days pen needle, diabetic (BD Ultra-Fine Mini Pen Needle) As directed to inject insulin 4 times per day sertraline 25 mg PO DAILY spironolactone 12.5 mg (1/2 x 25 mg) PO DAILY tadalafil (Cialis) 5 mg PO DAILY 90 days torsemide 20 mg PO DAILY 90 days valsartan 40 mg PO BID HPI HPI Comments History of Present Illness Details Jr comes for follow-up. Continues to exertional shortness of breath but unchanged from before. No hospitalization related to congestive heart failure. No ICD discharge. No prolonged palpitations irregular heartbeat. Unfortunately continues to smoke. Last 6 months he had issues with ulcer in the left foot and has undergone intervention on infrapopliteal vessels but continues to have nonhealing also has and is planned to undergo surgery on the left toe today. He denies any exertional chest pain. Takes all his medications. No bleeding issues or neurologic events. Echocardiogram done recently shows LVH ejection fraction 30-35% with grade 2 diastolic dysfunction without any significant valvular abnormality [facility] Medical History Diverticulosis Tubular adenoma of colon (~2017) History of COVID-19 Nicotine dependence, cigarettes, uncomplicated Hypertensive retinopathy Microhematuria ICD (implantable cardioverter-defibrillator) in place Tendinitis of left rotator cuff COPD (chronic obstructive pulmonary disease) KIMANI (obstructive sleep apnea) Type 2 diabetes mellitus without complications Sleep apnea CAD (coronary artery disease) Paroxysmal atrial fibrillation (~2016) Cardiomyopathy Surgical History History of cardiac cath History of ankle surgery History of implantable cardiac defibrillator (ICD) History of colonoscopy History of heart artery stent History of cardiac radiofrequency ablation History of cardioversion History of esophagogastroduodenoscopy History of umbilical hernia History of inguinal hernia Family History Father Atherosclerosis Mother Cerebral aneurysm Maternal Grandmother Unknown family medical history Mother Cerebral hemorrhage Father Coronary artery disease Social History Household Members: Significant Other Housing: House Are you a primary pet caregiver to a significant other at home: No Do you presently have visiting nurse or other home services: No Alcohol intake: former Patient Tobacco Use Status: Current everyday Tobacco user Tobacco use type: Cigarette Cigarette Packs Per Day: 1 Years Smoked: (current smoker - onset 14yo, 1ppd x 43yrs, 40pyh) e-Cigarette/Vaping Use: Former Use Second Hand Smoke Exposure: Yes service: No Current occupational status: unemployed and disabled Current occupation: rt handed Cognitive needs: No Hearing needs: No Vision needs: No Review of Systems Const Reports chills, Reports fatigue, Reports fever(s), Reports frequent falls, Reports weakness, Reports weight gain and Reports weight loss ENT Reports dizziness Card Reports chest pain, Reports leg edema, Reports lightheadedness, Reports palpitations, Reports dyspnea and Reports dyspnea on exertion Resp Reports cough, Reports dyspnea and Reports dyspnea on exertion GI Reports hematochezia Musc Reports abnormal gait, Reports muscle weakness, Reports numbness, Reports radiating pain into limb and Reports tingling Neuro Reports abnormal gait, Reports dizziness, Reports frequent falls, Reports numbness, Reports tingling and Reports weakness Endo Reports fatigue and Reports palpitations Physical Exam Vital Signs: Last Vital Signs Pulse 70 07/02/23 11:40 BP 120/60 07/02/23 11:40 BMI result Body Mass Index 32.0 Const General: cooperative, comfortable, no acute distress, alert and awake Nutritional Appearance: obese Orientation/consciousness: patient oriented x3 Limitations: no limitations Neck Neck: Yes trachea midline, Yes supple and Yes no JVD Resp Effort & Inspection: normal respiratory effort Auscultation: clear to auscultation bilaterally, no crackles, no rales, wheezes left lower and diminished lung sounds Cardio Jugular venous distension: no JVD Rate: regular rate Rhythm: regular rhythm Heart sounds: S1 normal heart sound present, S2 normal heart sound present, no click, no gallops and no murmurs GI Inspection: Yes obesity Auscultation: normal bowel sounds Skin General skin exam: no rashes or lesions noted Neuro General: patient oriented x3 and no focal motor deficits Extrem General: Yes no clubbing, cyanosis or edema Office Procedures Cardiac Device Check Cardiac Device Check Details: dual-chamber [place] ICD in place. Programmed in DDDR at 60 beats per minute. Atrial pacing 28% of time. Three episodes of nonsustained ventricular tachycardia noted. Atrial pacing thresholds are excellent and in our capture mode. RV pacing thresholds excellent. Atrial ventricular sensing is excellent. Pacing and shock lead impedance is stable. Battery life is excellent at about 7 years. 29503-PE Cardiac Device Check, dual lead implantable defibrillator Procedure code (CPT) selection complete EKG Details: EKG shows normal sinus rhythm with frequent PVCs with left axis deviation normal QT interval with inferior infarct with poor R-wave progression 47196-[id number], Complete Assessment & Plan Assessment & Plan (1) Heart failure with reduced ejection fraction: Code(s): I50.20 - Unspecified systolic (congestive) heart failure Plan: Heart failure with reduced ejection fraction with moderately severe LV systolic dysfunction still persistent despite aggressive medical therapy. However he has had no hospitalizations related to heart failure since maintaining rhythm and pursuing guideline based medical therapy. Unfortunately continues to smoke and remains at risk for admissions for pulmonary related issues which can decompensated his heart. Importance complete smoking cessation was discussed. Continue current diuretic regimen. Daily weight monitoring avoidance of salt loading was discussed continue rhythm control approach. Continue neurohormonal modulation with metoprolol and valsartan and spironolactone therapy. Continue Jardiance therapy as well. Reason for additional diuretic regimen was discussed with him. Also advised to maintain activity level as tolerated. Continue phase 2 cardiac rehabilitation. (2) CAD (coronary artery disease): Code(s): I25.10 - Atherosclerotic heart disease of [place] coronary artery without angina pectoris Plan: CAD as well as diffuse distal vascular disease. Unfortunately continues to smoke. Importance of complete smoking cessation was discussed. Blood pressure is currently well optimized. Continue current therapy. Advised to monitor blood pressure at home maintain a log with goal blood pressure less than 130/84. Continue aggressive management diabetes goal hemoglobin A1c less than 7%. Target goal LDL closer to 50 mg/dL. (3) Paroxysmal atrial fibrillation: Onset Date: ~2016 Comment: (on eliquis, s/p ablation) Code(s): I48.0 - Paroxysmal atrial fibrillation Plan: Paroxysmal atrial fibrillation which was difficult to control, has remained controlled on therapy with Tikosyn as well as ablation. Has done extremely well with rhythm control approach with avoidance of hospitalization. Continue aggressive rhythm control approach. Will monitor by pacer telemetry. Continue full oral anticoagulation, currently on Eliquis 5 mg b.i.d.. Quarterly renal function test should be pursued. Avoidance of stimulants was discussed. (4) ICD (implantable cardioverter-defibrillator) in place: Code(s): Z95.810 - Presence of automatic (implantable) cardiac defibrillator Plan: ICD in place for secondary prevention. ICD is working well. Will follow remotely for device function as well as for heart failure. Follow up in the clinic in 6 months time. Greater than 40 minutes was spent in managing his complex care Coding Level of Care Code Est Pt Level 5 (87011) Diagnoses Heart failure with reduced ejection fraction I50.20 CAD (coronary artery disease) I25.10 Paroxysmal atrial fibrillation I48.0 ICD (implantable cardioverter-defibrillator) in place Z95.810 CPT Codes Cardiac Device Check - Cardiac Device 5: 96954-CV Cardiac Device Check, dual lead implantable defibrillator ([id number]) EKG - CPT: 30317-[id number], Complete ([id number])
== END 2023-07-02 12:10 | disposition home or self-care (01) ==
PROVIDERS: PCP Nurse Practitioner Family; Visit Provider Internal Medicine Cardiovascular Disease
DX: I50.20 Unspecified systolic (congestive) heart failure (principal); I25.10 Atherosclerotic heart disease of native coronary artery without angina pectoris; I48.0 Paroxysmal atrial fibrillation; Z95.810 Presence of automatic (implantable) cardiac defibrillator
CPT/HCPCS: 93283; 99215

== ENCOUNTER → 2023-07-02 11:27 | Outpatient (BNVA) | payer OTHER, SELFPAY | PROVIDERS: PCP Nurse Practitioner Family; Visit Provider Internal Medicine Cardiovascular Disease | DX: Z45.02 Encounter for adjustment and management of automatic implantable cardiac defibrillator (principal); I50.20 Unspecified systolic (congestive) heart failure; I25.10 Atherosclerotic heart disease of native coronary artery without angina pectoris; I48.0 Paroxysmal atrial fibrillation | CPT/HCPCS: 93005; 99212 ==

== ENCOUNTER 2023-09-08 13:21 | Outpatient (REF) | payer OTHER, SELFPAY ==
[2023-09-08 16:32] LABS: Blood Urea Nitrogen 17 mg/dL (9-16); Estimated Glomerular Filt Rate > 60
== END 2023-09-08 13:22 | disposition home or self-care (01) ==
LOC: HO.HMGCLDS 13:21
PROVIDERS: PCP Nurse Practitioner Family; Visit Provider Radiology Vascular & Interventional Radiology
DX: R79.89 Other specified abnormal findings of blood chemistry (principal); R94.4 Abnormal results of kidney function studies
CPT/HCPCS: 36415; 82565; 84520

== ENCOUNTER 2023-10-20 18:37 | Emergency (ER) | payer OTHER, SELFPAY ==
[2023-10-20] VITALS (21 sets, daily range): BP systolic 77–110; BP diastolic 39–68; PULSE 89–113; RESP 13–34; TEMP 37.1–40.2; O2SAT 92–98; BMI 27.8
--- NOTE | ~2023-10-20 | XR_ITS ---
EXAMINATION: XR CHEST CLINICAL INFORMATION: Central line placement. COMPARISON: Chest radiograph 10/20/2023. TECHNIQUE: Frontal view of the chest was obtained. FINDINGS: Right IJ CVC tip terminates at the level of the lower SVC. No pneumothorax. Left-sided pacer with leads projecting over the right atrium and right ventricle. Stable prominence of the cardiomediastinal silhouette. Unchanged interstitial thickening as well as subtle focal hazy airspace opacities compared to earlier today. Chronic unchanged small right pleural effusion. No acute osseous findings. XR/XR chest 1V IMPRESSION: 1. Right IJ CVC tip terminates at the level of the lower SVC. No pneumothorax. 2. Unchanged interstitial thickening and subtle hazy airspace opacities. 3. Chronic unchanged small right pleural effusion.
--- NOTE | ~2023-10-20 | XR_ITS ---
EXAMINATION: XR CHEST CLINICAL INFORMATION: Fever. COMPARISON: CT chest 08/28/2022. Chest radiograph 07/19/2021. TECHNIQUE: Frontal view of the chest was obtained. FINDINGS: Left-sided pacer with leads projecting over the right atrium and right ventricle. Stable prominence of the cardiomediastinal silhouette. Increased interstitial markings with a few more focal bilateral hazy airspace opacities, for instance projecting over the left upper lobe and right lung base. Stable small chronic right pleural effusion. No pneumothorax. No acute osseous findings. XR/XR chest 1V IMPRESSION: Increased interstitial markings with a few bilateral more focal hazy airspace opacities suspicious for early infiltrates. Recommend clinical correlation for an atypical infection. A short-term follow-up chest radiograph after treatment is advised.
--- NOTE | ~2023-10-20 | XR_ITS ---
EXAMINATION: XR FOOT, LEFT CLINICAL INFORMATION: Evaluate for osteomyelitis first metatarsal. COMPARISON: Radiograph left foot 05/24/2023. TECHNIQUE: AP, lateral, and oblique views of the left foot. FINDINGS: Significant soft tissue swelling and few ulcerations in the first toe with increased heterogeneity of the bone marrow in the proximal and distal phalanges compared to 05/24/2023. No acute fracture or subluxation. Chronic deformity of the distal fibula/tibia on the lateral view. Severe vascular calcifications. XR/XR foot LT 2V IMPRESSION: Findings are worrisome for osteomyelitis in the phalanges of the first toe with significant surrounding soft tissue swelling and a few ulcerations. Further characterization with MRI as clinically warranted.
--- NOTE | 2023-10-20 07:20 | ECG_ITS ---
Test Reason : REPEAT Blood Pressure : / mmHG Vent. Rate : 151 BPM Atrial Rate : 097 BPM P-R Int : 000 ms QRS Dur : 092 ms QT Int : 248 ms P-R-T Axes : 000 -29 098 degrees QTc Int : 393 ms Normal sinus rhythm with Premature ventricular complexes with VT Low voltage QRS Cannot rule out Anteroseptal infarct , age undetermined Abnormal ECG When compared to the previous EKG of VT is noted Referred By: Rimma Tidwell Electronically Signed By:NOLAN GONZALEZ MD
--- NOTE | 2023-10-20 18:59 | ECG_ITS ---
Test Reason : SEPSIS ALERT Blood Pressure : / mmHG Vent. Rate : 112 BPM Atrial Rate : 112 BPM P-R Int : 176 ms QRS Dur : 106 ms QT Int : 338 ms P-R-T Axes : 078 -18 090 degrees QTc Int : 461 ms Sinus tachycardia Low voltage QRS Cannot rule out Anteroseptal infarct , age undetermined Abnormal ECG When compared to the previous EKG of Sinus tachycardia has replaced Atrial fibrillation Referred By: Rimma Tidwell Electronically Signed By:NOLAN GONZALEZ MD
--- NOTE | 2023-10-20 19:06 | PC.NURSE ---
pt brought to exam room, noted to be diaphoretic, moaning, when asked if he is having pain responds I dont know . Per MD Tidwell pt will only rec 1l of fluid (which was already initiated by EMS, on arrival pt has 300ml remaining) d/t pt hx of CHF. labs obtained- 2nd access obtained. pt febrile, tachycaardic 114bpm.
--- NOTE | 2023-10-20 19:08 | ED_ITS ---
HPI - General Adult General Chief complaint: Altered Mental Status Stated complaint: ?SEPSIS ALERT Time Seen by Provider: 10/20/23 18:48 Source: EMS Mode of arrival: EMS Limitations: altered mental status History of Present Illness HPI narrative: Patient comes to the emergency room via ambulance from his house. According to EMS, friend of the patient visited him, noted that he was confused. Seems that patient has a wound in his left foot and also has dark-colored urine. Patient is awake and alert, keeps saying ?Oww owww , but is unable to verbalize what hurts. Prior to patient's arrival, patient received 1 L of normal saline per EMS. Related Data Home Medications ?Medication ?Instructions ?Recorded ?Confirmed aspirin 81 mg tablet,delayed 81 mg PO DAILY 07/16/22 07/02/23 release (Adult Low Dose Aspirin) cholecalciferol (vitamin D3) 50 50 mcg PO DAILY 12/23/22 07/02/23 mcg (2,000 unit) tablet Previous Rx's ?Medication ?Instructions ?Recorded metoprolol succinate 50 mg 50 mg PO Q12H #60 tabs 09/10/21 tablet,extended release 24 hr (Toprol XL) spironolactone 25 mg tablet 12.5 mg (1/2 x 25 mg) PO DAILY #45 08/17/22 tabs pen needle, diabetic 31 gauge x #400 ea 10/12/2209/10 (BD Ultra-Fine Mini Pen Needle) dofetilide 250 mcg capsule 250 mcg PO Q12H 90 days #180 caps 12/07/22 insulin aspart U-100 100 unit/mL 5 unit (0.05 mL) subcut TID 30 12/14/22 (3 mL) subcutaneous pen (Novo #4.5 mL FlexPen U-100 Insulin aspart) tadalafil 5 mg tablet (Cialis) 5 mg PO DAILY 90 days #90 tabs 01/21/23 apixaban 5 mg tablet (Eliquis) 5 mg PO BID #180 tabs 02/24/23 dulaglutide 3 mg/0.5 mL 3 mg (0.5 mL) subcut KELLEY@0900 #6 mL 04/20/23 subcutaneous pen injector atorvastatin 40 mg tablet 40 mg PO BEDTIME 90 days #90 tabs 05/26/23 empagliflozin 25 mg tablet 25 mg PO DAILY 90 days #90 tabs 05/26/23 (Jardiance) valsartan 40 mg tablet 40 mg PO BID #60 tabs 06/29/23 albuterol sulfate 2.5 mg/3 mL 2.5 mg (3 mL) inhalation QID PRN 07/08/23 (0.083 %) solution for nebulization shortness of breath or wheezing 30 days #90 mL blood-glucose sensor (FreeStyle #6 ea 07/09/23 Samantha 3 Sensor device) torsemide 20 mg tablet 20 mg PO DAILY 90 days #90 tabs 07/26/23 metformin 500 mg tablet 500 mg PO DAILY #90 tabs 08/05/23 melatonin 3 mg tablet 3 mg PO BEDTIME PRN insomnia 30 08/06/23 days #30 tabs FreeStyle Lite Strips (blood sugar #300 ea 08/21/23 diagnostic) sertraline 25 mg tablet 25 mg PO DAILY #90 tabs 08/24/23 omeprazole 20 mg capsule,delayed 20 mg PO DAILY@0630 90 days #90 09/09/23 release caps gabapentin 300 mg capsule 300 mg PO TID #270 caps 09/13/23 insulin glargine 100 unit/mL (3 40 unit (0.4 mL) subcut BEDTIME 09/20/23 mL) subcutaneous pen (Lantus #30 mL Solostar U-100 Insulin) Ventolin HFA 90 mcg/actuation 2 puff PO Q6H PRN wheezing #18 10/15/23 aerosol inhaler (albuterol sulfate) grams Allergies Allergy/AdvReac Type Severity Reaction Status Date / Time No Known Allergies Allergy Verified 10/20/23 18:59 [No Known Allergies*] Review of Systems 2 Review of Systems: Yes Unobtainable due to mental status FOR[facility]LY [facility] Past Medical History Medical History Diverticulosis Tubular adenoma of colon (~2017) History of COVID-19 Nicotine dependence, cigarettes, uncomplicated Hypertensive retinopathy Microhematuria ICD (implantable cardioverter-defibrillator) in place Tendinitis of left rotator cuff COPD (chronic obstructive pulmonary disease) KIMANI (obstructive sleep apnea) Type 2 diabetes mellitus without complications Sleep apnea CAD (coronary artery disease) Paroxysmal atrial fibrillation (~2017) Cardiomyopathy Surgical History History of cardiac cath History of ankle surgery History of implantable cardiac defibrillator (ICD) History of colonoscopy History of heart artery stent History of cardiac radiofrequency ablation History of cardioversion History of esophagogastroduodenoscopy History of umbilical hernia History of inguinal hernia Family History Family History Father Atherosclerosis Mother Cerebral aneurysm Maternal Grandmother Unknown family medical history Mother Cerebral hemorrhage Father Coronary artery disease Social History Social History Household Members: Significant Other Housing: House Are you a primary healthcare architect to a significant other at home: No Do you presently have visiting nurse or other home services: No Alcohol intake: former Patient Tobacco Use Status: Current everyday Tobacco user Tobacco use type: Cigarette Cigarette Packs Per Day: 1 Years Smoked: (current smoker - onset 14yo, 1ppd x 43yrs, 40pyh) Smoked in Last 30 Days: Yes e-Cigarette/Vaping Use: Former Use Second Hand Smoke Exposure: Yes Use of substances other than those prescribed or required for medical reasons: No Advance Directives: Yes Advance Directives on File: Yes Advance Directives Date on File: 07/09/21 Do you have a plan to hurt others: No Plan service: No Current occupational status: unemployed and disabled Current occupation: rt handed Cognitive needs: No Hearing needs: No Vision needs: No Physical Exam ED Vital Signs: Vital Signs - 24 hr 10/20/23 18:49 10/20/23 19:25 10/20/23 20:59 Temperature 104.3 F H 102.4 F H Pulse Rate 113 H 113 H 111 H Respiratory Rate 22 H 24 H 29 H Blood Pressure 94/54 L 83/52 L 92/63 Pulse Oximetry 95 95 94 Oxygen Delivery Method Nasal Cannula with ETCO2 Nasal Cannula Nasal Cannula Oxygen Flow Rate 3 2 10/20/23 21:31 10/20/23 21:33 10/20/23 21:46 Temperature 101.7 F H 101.7 F H Pulse Rate 96 97 Respiratory Rate 32 H Blood Pressure 92/49 L 80/53 L Pulse Oximetry 94 Oxygen Delivery Method Nasal Cannula Oxygen Flow Rate 2 10/20/23 21:47 10/20/23 22:26 10/20/23 22:30 Temperature 101.5 F H 101.1 F H Pulse Rate 97 89 89 Respiratory Rate 21 H 13 Blood Pressure 80/53 L 86/53 L 86/53 L Pulse Oximetry 97 96 Oxygen Delivery Method Nasal Cannula Nasal Cannula Oxygen Flow Rate 2 2 10/20/23 22:38 10/20/23 22:42 10/20/23 22:59 Temperature 100.8 F H Pulse Rate 100 103 H 103 H Respiratory Rate 34 H Blood Pressure 81/39 L 97/47 L 83/58 L Pulse Oximetry 98 Oxygen Delivery Method Nasal Cannula Oxygen Flow Rate 2 10/20/23 23:04 Temperature Pulse Rate 105 H Respiratory Rate Blood Pressure 77/59 L Pulse Oximetry Oxygen Delivery Method Oxygen Flow Rate BMI result Body Mass Index 27.8 Medications Administered Generic Name Dose Route Start Last Admin Trade Name Freq PRN Reason Stop Dose Admin Amiodarone HCl 900 mg/ Sodium 518 mls @ 34.533 mls/hr 10/20/23 21:15 10/20/23 23:15 Chloride IVCONT 1 mg/min .Q15H1M MARILEE 34.53 mls/hr Infusion Protocol 1 MG/MIN Norepinephrine Bitartrate 8 mg in 250 mls @ 0 mls/hr 10/20/23 21:45 10/20/23 23:04 Levophed IV 0.13 mcg/kg/min .Q0M MARILEE 22.69 mls/hr Titration Protocol Per Protocol Sodium Chloride 1,000 mls @ 999 mls/hr 10/20/23 22:21 10/20/23 22:41 Ns IVCONT 10/20/23 23:21 999 mls/hr .Q1H1M ONE Administration Discontinued Medications Generic Name Dose Route Start Last Admin Trade Name Freq PRN Reason Stop Dose Admin Acetaminophen 650 mg 10/20/23 19:02 10/20/23 19:22 Acetaminophen Supp 650 Mg Supp.Rect OR 10/20/23 19:03 650 mg ONCE ONE Administration Vancomycin HCl 2,000 mg in 500 mls @ 250 mls/hr 10/20/23 19:00 10/20/23 19:48 Vancomycin/Ns IV 10/20/23 20:59 250 mls/hr ONCE ONE Administration Piperacillin Sod/Tazobactam 50 mls @ 100 mls/hr 10/20/23 19:00 10/20/23 22:22 Sod 3.375 gm/ Sodium Chloride IV 10/20/23 19:29 Infused ONCE ONE Infusion Albumin Human 100 mls @ 100 mls/hr 10/20/23 19:45 10/20/23 22:51 Kedbumin 25 % IV 10/20/23 21:44 100 mls/hr Q1H MARILEE Administration Sodium Chloride 1,000 mls @ 999 mls/hr 10/20/23 19:40 10/20/23 22:23 Ns IVCONT 10/20/23 20:40 Infused .Q1H1M ONE Infusion Amiodarone HCl 150 mg/ 103 mls @ 618 mls/hr 10/20/23 22:40 10/20/23 21:39 Dextrose IV 10/20/23 22:49 Infused ONCE ONE Infusion Amiodarone HCl 150 mg/ 103 mls @ 618 mls/hr 10/20/23 22:54 10/20/23 23:14 Dextrose IV 10/20/23 23:03 Infused ONCE ONE Infusion Oseltamivir Phosphate 75 mg 10/20/23 21:20 10/20/23 21:56 Oseltamivir Phosphate 75 Mg Capsule PO 10/20/23 21:21 75 mg ONCE ONE Administration Procedures Central Line Placement Right IJ: Time Out Performed: Yes Patient Placed on Monitor/Pulse Ox: Yes MD Prep: mask, gown and gloves Central Line Prep: Chlorhexidine scrub Local Anesthetic: lidocaine 1% Amount of anesthesia used (mL): 5 Ultrasound Used for Placement: Yes Central Line Lumen Inserted: triple Post Procedure: sutured in place, good blood return, all ports aspirated, flushed, capped and sterile dressing applied Post Procedure X-Ray: tip of catheter in good position and no pneumothorax seen Patient Tolerated Procedure: well and no complications Complications: none Medical Decision Making Medical Decision Making MDM Narrative: -I was informed by the patient's nurse that the patient's blood pressure is 94/54, with a rectal temperature of 104.3 degrees, heart rate 113. -seems that patient has an infected wound on the plantar aspect of the left foot. All of patient's labs and imaging pending. -at 19:00, sepsis alert was called. Patient received 1 L of normal saline prior to arrival as a bolus. At this time, we continue giving fluids slowly, Patient has CHF with an ejection fraction of 15-20%. Patient given IV vancomycin and Zosyn. -19:40, I was informed by the patient's nurse that the patient's blood pressure dropped to 83/52. We will give 1 more L of normal saline. This will be patient's 2 L of normal saline. Due to patient's history of significant CHF, we will proceed slowly with a fluids. Patient also getting albumin IV. -patient is positive for influenza a, x-rays positive for osteomyelitis of the left foot. -while patient was receiving IV fluids, patient had 5 episodes of nonsustained V-tach. While we were getting the amiodarone ready, patient went into sustained V-tach. Patient received a bolus of 150 mg of amiodarone and now is on an amiodarone drip. Patient is back to base rhythm of atrial fibrillation which is chronic for the patient. -patient's blood pressure 96/55, heart rate 107, oxygen saturation 95% on 2 L, temperature 101.3 degrees. -so far, patient has received 3 L of normal saline, 650 mg of acetaminophen, 2 doses of albumin, amiodarone push 150 mg, amiodarone drip running at 1 milligram/minute, Levophed at 0.05 micrograms/kilogram per hour, vancomycin, Zosyn, 75 mg Tamiflu -my interpretation of EKG 1: Sinus tachycardia, heart rate 112, no ST segment depression or elevation, no T-wave inversion, QTC 461. -my interpretation of EKG 2: Half of the EKG shows atrial fibrillation, 2nd half they EKG patient went into V-tach -patient has central line in the right IJ -my interpretation of x-ray after central line placement: Good placement -I discussed the patient with ICU attending Dr. Montgomery from [facility] in [place], [place], pt accepted -patient and his sister who is at bedside both agreeable with the transfer. -23:00. Patient has already had a bolus of 150 mg of amiodarone and is on a drip. Patient continues having nonsustained episodes of V-tach. Patient received a 2nd dose of 150 mg amiodarone bolus. I discussed with Dr. Andrew our lining marker that the patient has been accepted to [facility], it has approximately a [address], we will continue amiodarone drip and also start lidocaine drip -note that the patient's more awake and alert and coherent, patient states that in the morning hours before he came to the hospital, his ICD shocked him a few times. Patient has likely been having arrhythmias since early this morning. -I asked the ER payroll secretary to call heart for transfer line to inform them when the patient is leaving our facility to go to [place]. A CD with patient's images will be traveling with the patient -EMS should be arriving shortly. Sign-out given to my colleague Dr. Gross Differential Diagnosis Differential Diagnoses: The differential diagnosis associated with the presentation includes (Septic shock, influenza, pneumonia, osteomyelitis, sustained V-tach) Admission/Observation Consideration of admission/observation: Escalation of care including admission/observation considered Consult Healthcare Provider Management of the patient was discussed with: Animal Keeper (I discussed the patient with Dr. Andrew, we will go ahead and start amiodarone, no heparin at this time) Lab Data MDM Lab Attestation statement: I reviewed the patient's lab results. 10/20/23 19:05 10/20/23 19:05 Labs: Lab Results 10/20/23 10/20/23 10/20/23 Range/Units 19:05 19:29 22:34 WBC 14.6 H (4.8-10.8) X10*3/uL RBC 4.91 (4.60-5.80) X10*6/uL Hgb 13.9 L (14.0-18.0) g/dl Hct 41.3 L (42.0-52.0) % MCV 84.1 (80.0-98.0) fL MCH 28.3 (27.0-33.0) pg MCHC 33.7 (31.0-36.0) g/dl RDW 14.5 (11.0-16.0) % Plt Count 216 D (160-400) X10*3/uL MPV 10.7 (9.4-12.4) fL Immature Gran % (Auto) Cancelled Neut % (Auto) Cancelled Lymph % (Auto) Cancelled [place] % (Auto) Cancelled Eos % (Auto) Cancelled Baso % (Auto) Cancelled Lymph # (Auto) Cancelled [place] # (Auto) Cancelled Eos # (Auto) Cancelled Baso # (Auto) Cancelled Abs Immat Gran (auto) Cancelled Absolute Neuts (auto) Cancelled Absolute Nucleated RBC 0.000 (0.0-0.012) X10*3/uL Nucleated RBC % (auto) 0.0 (0.0-0.2) /100WBC Neutrophils % (Manual) 64 (45-73) % Band Neutrophils % 29 H (3-5) % Lymphocytes % (Manual) 3 L (20-40) % Monocytes % (Manual) 3 (2-11) % Metamyelocytes % 1 % Abs Neuts (Manual) 13.6 H (2.0-8.3) X10*3/uL Lymphocytes # (Manual) 0.4 L (1.2-4.9) X10*3/uL Monocytes # (Manual) 0.4 (0.1-1.2) X10*3/uL Metamyelocytes # 0.1 X10*3/uL Toxic Granulation PRESENT Toxic Vacuolation PRESENT Dohle Bodies PRESENT Platelet Estimate NORMAL (NORMAL) Plt Morphology Comment NORMAL RBC Morphology NOTED [place] Cells 1+ (0-2) /OIF Smear Tech's Comments VERIFIED PT 25.5 H (11.1-13.3) SEC INR 2.1 H (0.9-1.1) VBG pH 7.41 (7.32-7.43) VBG pCO2 28 mmHg VBG pO2 77 mmHg VBG HCO3 18 L (22-26) mmol/L VBG O2 Saturation 96.0 % VBG Base Excess -4.6 mmol/L Sodium 134 L (135-145) mmol/L Potassium 4.2 (3.3-5.1) mmol/L Chloride 98 (96-108) mmol/L Carbon Dioxide 22 (22-29) mmol/L Anion Gap 18 (12-20) BUN 42 H (9-16) mg/dL Creatinine 1.32 (0.5-1.4) mg/dL Estim Creat Clear Calc 65.3 Estimated GFR 55 Random Glucose 219 H (60-115) mg/dL Lactic Acid 4.1 H* 1.7 (0.5-2.0) mmol/L Calcium 8.2 L D (8.4-10.2) mg/dL Magnesium 2.1 (1.6-2.6) mg/dL Total Bilirubin 0.8 (0.0-1.0) mg/dL Direct Bilirubin 0.4 (0.0-0.5) mg/dL AST 34 (5-37) U/L ALT 19 (0-40) U/L Alkaline Phosphatase 67 (39-117) U/L Troponin I High Sens 482.4 H* (<3.5-35.0) ng/L B-Natriuretic Peptide 758 H (<100) pg/mL Total Protein 6.8 (6.5-8.0) g/dL Albumin 2.8 L (3.5-5.0) g/dL Ethyl Alcohol < 10 mg/dL Influenza Type A (PCR) POSITIVE A (Negative) Influenza Type B (PCR) NEGATIVE (Negative) RSV RNA Qual (PCR) NEGATIVE (Negative) SARS-CoV-2 RNA (RT-PCR) NEGATIVE (Negative) Independent Interpretation I performed an independent interpretation of an: EKG and Plain X-Ray Independent Historian Clinical information obtained from an independent historian. History obtained from or confirmed by: Other (Sister) External Record Review External record reviewed: Outpatient record (Outpatient cardiology notes) Chronic Conditions Patient?s care impacted by: Diabetes and Other (CHF, coronary artery disease with stents, COPD) Critical Care Time Critical Care Time Critical Care Time: Yes Total Critical Care Time: 120 Attestation: I have personally provided critical care time. Time includes review of lab data, radiology results, discussion with consultants, and monitoring for potential decompensation. Intervention performed as documented. Discharge Plan Discharge Clinical Impression: Septic shock, Influenza A, Acute osteomyelitis of foot, Ventricular tachycardia, Pneumonia Patient Disposition: [facility] Transfer Details: [facility] [place], [place], Dr. Montgomery Prescriptions: No Action spironolactone 25 mg tablet 12.5 mg PO DAILY Qty: 45 2RF (DME) pen needle, diabetic [BD Ultra-Fine Mini Pen Needle] 31 gauge x 3/16 needle See Rx Instructions .Route Qty: 400 1RF Rx Instructions: As directed to inject insulin 4 times per day dofetilide 250 mcg capsule 250 mcg PO Q12H 90 Days Qty: 180 1RF insulin aspart U-100 [Novolog FlexPen U-100 Insulin] 100 unit/mL (3 mL) insulin pen 5 unit subcut TID 30 Days Qty: 4.5 3RF Rx Instructions: with meals tadalafil [Cialis] 5 mg tablet 5 mg PO DAILY 90 Days Qty: 90 3RF Rx Instructions: [id number] [facility] [id number] Member [id number] Eliquis 5 mg tablet 5 mg PO BID Qty: 180 3RF Hold Instructions: Resume on 11/11/20. Hold Eliquois x 5 days dulaglutide 3 mg/0.5 mL pen injector 3 mg subcut KELLEY@0900 Qty: 6 1RF atorvastatin 40 mg tablet 40 mg PO BEDTIME 90 Days Qty: 90 1RF Jardiance 25 mg tablet 25 mg PO DAILY 90 Days Qty: 90 1RF valsartan 40 mg tablet 40 mg PO BID Qty: 60 5RF albuterol sulfate 2.5 mg /3 mL (0.083 %) solution for nebulization 2.5 mg inhalation QID PRN (Reason: shortness of breath or wheezing) 30 Days Qty: 90 1RF (DME) FreeStyle Samantha 3 Sensor Device See Rx Instructions .Route Qty: 6 1RF Rx Instructions: Test blood sugar TID torsemide 20 mg tablet 20 mg PO DAILY 90 Days Qty: 90 2RF metformin 500 mg tablet 500 mg PO DAILY Qty: 90 0RF melatonin 3 mg tablet 3 mg PO BEDTIME PRN (Reason: insomnia) 30 Days Qty: 30 2RF (DME) FreeStyle Lite Strips Strip See Rx Instructions .Route Qty: 300 1RF Rx Instructions: TID testing sertraline 25 mg tablet 25 mg PO DAILY Qty: 90 1RF omeprazole 20 mg capsule,delayed release(DR/EC) 20 mg PO DAILY@0630 90 Days Qty: 90 1RF gabapentin 300 mg capsule 300 mg PO TID Qty: 270 1RF insulin glargine [Lantus Solostar U-100 Insulin] 100 unit/mL (3 mL) insulin pen 40 unit subcut BEDTIME Qty: 30 1RF albuterol sulfate [Ventolin HFA] 90 mcg/actuation HFA aerosol inhaler 2 puff PO Q6H PRN (Reason: wheezing) Qty: 18 1RF cholecalciferol (vitamin D3) 50 mcg (2,000 unit) Tablet 50 mcg PO DAILY aspirin [Adult Low Dose Aspirin] 81 mg tablet,delayed release (DR/EC) 81 mg PO DAILY metoprolol succinate [Toprol XL] 50 mg tablet extended release 24 hr 50 mg PO Q12H Qty: 60 2RF Print Language: Czech
--- NOTE | 2023-10-20 19:08 | PC.NURSE ---
IV line stared by this Rn and labs drawn without incidence.. Report given to HUBER FREDERICK
[2023-10-20 19:18] LABS: INTERNATIONAL NORM RATIO 2.1 (0.9-1.1); Prothrombin Time 25.5 SEC (11.1-13.3)
[2023-10-20] MEDS: Acetaminophen Supp 650 MG SUPP.RECT PR (19:22)
[2023-10-20] MEDS: Piperacillin Sodium/Tazobactam 3.375 GM in 0.9 % Sodium Chloride 50 ML IV (19:22)
[2023-10-20 19:26] LABS: Hematocrit 41.3 % (42.0-52.0); Hemoglobin 13.9 g/dl (14.0-18.0); Mean Corpuscular HGB Conc 33.7 g/dl (31.0-36.0); Mean Corpuscular Hemoglobin 28.3 pg (27.0-33.0); Mean Corpuscular Volume 84.1 fL (80.0-98.0); Mean Platelet Volume 10.7 fL (9.4-12.4); Platelet Count 216 X10*3/uL (160-400); Red Blood Count 4.91 X10*6/uL (4.60-5.80); Red Cell Distribution Width 14.5 % (11.0-16.0); White Blood Count 14.6 X10*3/uL (4.8-10.8)
--- NOTE | 2023-10-20 19:29 | PC.NURSE ---
pt taken to XR
[2023-10-20 19:31] LABS: Alanine Aminotransferase 19 U/L (0-40); Albumin Level 2.8 g/dL (3.5-5.0); Alkaline Phosphatase 67 U/L (39-117); Anion Gap 18 (12-20); Aspartate Amino Transferase 34 U/L (5-37); Bilirubin Direct 0.4 mg/dL (0.0-0.5); Bilirubin Total 0.8 mg/dL (0.0-1.0); Blood Urea Nitrogen 42 mg/dL (9-16); Calcium 8.2 mg/dL (8.4-10.2); Carbon Dioxide 22 mmol/L (22-29); Chloride 98 mmol/L (96-108); Creatinine Clr Calc Pharmacy 65.3; Estimated Glomerular Filt Rate 55; Ethanol < 10 mg/dL; Glucose Random 219 mg/dL (60-115); Magnesium 2.1 mg/dL (1.6-2.6); Potassium 4.2 mmol/L (3.3-5.1); Sodium 134 mmol/L (135-145); Total Protein 6.8 g/dL (6.5-8.0)
[2023-10-20 19:34] LABS: B Type Natriuretic Peptide 758 pg/mL (<100)
[2023-10-20 19:36] LABS: VBG Base Excess -4.6 mmol/L; VBG HCO3 18 mmol/L (22-26); VBG pCO2 28 mmHg; VBG pH 7.41 (7.32-7.43); VBG pO2 77 mmHg
[2023-10-20 19:39] LABS: Venous Blood Gas Refer to POC result
[2023-10-20 19:45] LABS: Lactic Acid 4.1 mmol/L (0.5-2.0); Troponin-I High Sensitivity 482.4 ng/L (<3.5-35.0)
[2023-10-20] MEDS: vancomycin/NS 2,000 MG/500 ML PLAST..BAG 250 MG IV (19:48)
[2023-10-20 19:51] LABS: Influenza A PCR POSITIVE (Negative); Influenza B PCR NEGATIVE (Negative); Resp Syncy Virus RNA Qual PCR NEGATIVE (Negative); SARS COV2 PCR INHOUSE NEGATIVE (Negative)
[2023-10-20] MEDS: 0.9 % Sodium Chloride 1,000 ML 999 ML IVCONT ×2 (20:11→22:41)
[2023-10-20] MEDS: Albumin Human 25 % 100 ML IV ×2 (20:16→22:51)
[2023-10-20 20:18] LABS: Neutrophils Percent Manual 64 % (45-73)
[2023-10-20 20:19] LABS: Band Neutrophils Percent 29 % (3-5); Burr Cells 1+ (0-2) /OIF; Lymphocytes Absolute Manual 0.4 X10*3/uL (1.2-4.9); Lymphocytes Percent Manual 3 % (20-40); Metamyelocytes Absolute 0.1 X10*3/uL; Metamyelocytes Percent 1 %; Monocytes Absolute Manual 0.4 X10*3/uL (0.1-1.2); Monocytes Percent Manual 3 % (2-11); Neutrophils Absolute Manual 13.6 X10*3/uL (2.0-8.3)
[2023-10-20 20:20] LABS: Dohle Bodies PRESENT; Toxic Granulation PRESENT
[2023-10-20 20:21] LABS: Platelet Estimate NORMAL (NORMAL); Platelet Morphology Comment NORMAL; RBC Morphology NOTED; Toxic Vacuolation PRESENT
[2023-10-20 21:10] LABS: Reflex Lactate? Lactic Acid Added
[2023-10-20 21:30] LABS: SLIDE REVIEW VERIFIED
[2023-10-20] MEDS: Norepinephrine Bitartrate/D5W 8 MG/250 ML PLAST..BAG 8.73 MG IV (21:46)
[2023-10-20] MEDS: Oseltamivir Phosphate 75 MG CAPSULE PO (21:56)
--- NOTE | 2023-10-20 22:31 | PC.NURSE ---
pt IV to RAC blew. 20G IV placed to L Hand by DARIEL Buenrostro. central line placed to Right by Dr. Tidwell. chest x-ray taken. awaiting report. pt medicated per mar in meantime in peripheral IVs. pt appears sob but color and speech is better. pt a&ox4, moaning stating I can't do this . pt vitals much more stable. pt sister at bedside. pt awaiting transport to [facility]. rr even/unlabored. plan of care ongoing.
[2023-10-20] MEDS: Amiodarone HCL 900 MG in 0.9 % Sodium Chloride 500 ML 34.53 MG IVCONT (22:36)
[2023-10-20 22:50] LABS: Lactic Acid 1.7 mmol/L (0.5-2.0)
[2023-10-20] MEDS: Lidocaine HCl/D5W 2 GM/250 ML IV.SOLN IVCONT (23:21)
--- NOTE | 2023-10-20 23:22 | PC.NURSE ---
assumed care of pt, pt resting in stretcher, respirations even but labored at this time, pt sating 93-96% on 2L nasal cannula. pt sinus tachy 100-107bpm. pt has pacer pads in place at this time.
[2023-10-21] VITALS (10 sets, daily range): BP systolic 84–120; BP diastolic 57–70; PULSE 77–111; RESP 18; TEMP 37.4; O2SAT 97
--- NOTE | 2023-10-21 00:04 | PC.NURSE ---
per , titrate levophed per pt blood pressure systolic 90 and aobve.
--- NOTE | 2023-10-21 01:05 | PC.NURSE ---
report given to Nasreen SHEET CUTTING OPERATOR at [facility].
--- NOTE | 2023-10-21 01:55 | PC.NURSE ---
pt heart rate 76bpm, per protocol, lidocaine dripped stopped.
--- NOTE | 2023-10-21 01:55 | PC.NURSE ---
ems at bedside to transport pt, report given at bedside.
[2023-10-21 01:59] LABS: Appearance Urine Clear; Color Urine Yellow; Glucose Urine UA >=1000 mg/dL (Negative); Leukocyte Esterase Urine Negative (Negative); Nitrite Urine Negative (Negative); Specific Gravity - Urine 1.025 (1.005-1.025); UMIC TRIGGER UACC YES; Urine Blood Trace (Negative); Urine Ketones Trace mg/dL (Negative); Urine Protein Trace mg/dL (Neg-Trace)
[2023-10-21 02:15] LABS: Bacteria Urine Trace (None Seen); RBC Urine 0-2 /HPF (0-2); Squamous Epithelial Cell Urine 0-2 /HPF (0-2); WBC Urine 0-5 /HPF (0-5)
--- NOTE | 2023-10-21 02:24 | PC.NURSE ---
pt belongings found at bedside, pt sister called at this time, pt sister reports she will come pickers material handlers belongings for pt.
[2023-10-21 03:04] LABS: Amphetamine Screen Urine Not Detected (Not Detect); Barbiturates, Urine Not Detected (Not Detect); Benzodiazepines Screen Urine Not Detected (Not Detect); Buprenorphine Scr Not Detected (Not Detect); Cannabinoid Screen Urine Not Detected (Not Detect); Cocaine Screen Urine POSITIVE (Not Detect); Fentanyl, urine Not Detected (Not Detect); Methadone Screen, Urine Not Detected (Not Detect); Opiate Screen Urine Not Detected (Not Detect); Oxycodone Screen Urine Not Detected (Not Detect); Phencyclidine Screen Urine Not Detected (Not Detect)
== END 2023-10-21 02:22 | disposition short-term general hospital (02) ==
PROVIDERS: Emergency Provider Emergency Medicine
DX: A41.9 Sepsis, unspecified organism (principal); J10.00 Influenza due to other identified influenza virus with unspecified type of pneumonia; M86.172 Other acute osteomyelitis, left ankle and foot; R65.21 Severe sepsis with septic shock; I47.20 Ventricular tachycardia, unspecified; I50.9 Heart failure, unspecified; I48.91 Unspecified atrial fibrillation; E11.9 Type 2 diabetes mellitus without complications; Z95.810 Presence of automatic (implantable) cardiac defibrillator
CPT/HCPCS: 0241U; 36415; 36556; 71045; 73620; 80048; 80076; 80307; 81001; 81003; 82803; 83605; 83735; 83880; 84484; 85007; 85025; 85027; 85610; 87040; 87077; 87147; 87186; 87205; 93005; 96361; 96365; 96366; 96367; 96368; 96375; 96376; 99285; J0282; J2543; J3370; P9047

== ENCOUNTER → 2023-10-20 18:59 | Outpatient (BNV) | payer OTHER, SELFPAY | PROVIDERS: Emergency Provider Emergency Medicine; Visit Provider Internal Medicine Cardiovascular Disease | DX: I49.3 Ventricular premature depolarization (principal); R00.0 Tachycardia, unspecified | CPT/HCPCS: 93010 ==

== ENCOUNTER 2023-11-18 12:45 | Inpatient (IN) | payer OTHER, SELFPAY ==
[2023-11-18] VITALS (12 sets, daily range): BP systolic 108–125; BP diastolic 52–69; PULSE 59–98; RESP 16–26; TEMP 36.4–37.6; O2SAT 94–96; BMI 29.5
--- NOTE | 2023-11-18 | ECG_ITS ---
Test Reason : CHEST PAIN Blood Pressure : / mmHG Vent. Rate : 062 BPM Atrial Rate : 027 BPM P-R Int : 222 ms QRS Dur : 118 ms QT Int : 470 ms P-R-T Axes : 082 -08 064 degrees QTc Int : 477 ms Atrial-paced rhythm with prolonged AV conduction with occasional ventricular-paced complexes Low voltage QRS Cannot rule out Anterior infarct , age undetermined Abnormal ECG When compared with ECG of 20-OCT-2023 20:53, Electronic ventricular pacemaker has replaced Sinus rhythm Vent. rate has decreased BY 89 BPM Previous ECG showed VT-not present anymore Referred By: Kyree Gross Electronically Signed By:Jaspreet Montoya
--- NOTE | ~2023-11-18 | XR_ITS ---
EXAMINATION: XR CHEST CLINICAL INFORMATION: Shortness of breath. COMPARISON: Chest radiograph dated 10/20/2023. TECHNIQUE: Frontal view of the chest was obtained. FINDINGS: The right internal jugular vein catheter has been removed. There is a new dual lead cardiac device overlying the right chest wall, new from the prior study. The left chest wall cardiac device has been removed. The cardiac silhouette is mildly enlarged. There are hazy opacities throughout the mid and lower lungs, similar to the prior study. There is a small right pleural effusion. No pneumothorax. No acute osseous abnormality. XR/XR chest 1V IMPRESSION: Hazy opacities throughout the mid and lower lungs, similar to the prior examination. Infectious/inflammatory etiologies should be considered. There is a small right pleural effusion.
--- NOTE | ~2023-11-18 | CT_ITS ---
EXAMINATION: CT ANGIOGRAM OF THE CHEST WITH AND WITHOUT CONTRAST (CT PULMONARY ANGIOGRAM FOR PE) CLINICAL INFORMATION: Reason for Exam shortness of breath, elevated d-dimer COMPARISON: CT lung screening from 08/28/2022 TECHNIQUE: Prior to contrast administration, noncontrast localization images were obtained. Subsequently, multidetector volumetric imaging was performed from the thoracic inlet to below the diaphragms following the administration of 80 mL Omnipaque 350 intravenous contrast. No contrast reaction reported Sagittal, coronal, and MIP oblique sagittal reformatted images were obtained on the CT workstation, uploaded to PACS, and reviewed. This CT examination was performed using dose optimization techniques as appropriate, variously including the following: *Automated exposure control *Adjustment of mA and/or kV according to patient size (this includes techniques or standardized protocols for targeted exams where dose is matched to indication/reason for exam; i.e. extremities or head) *Use of iterative reconstruction technique Total exam dose-length product 432 mGy-cm FINDINGS: QUALITY OF STUDY/CONTRAST BOLUS: Satisfactory. PULMONARY ARTERIES: No pulmonary emboli. Main pulmonary artery is enlarged suggesting elements of pulmonary arterial hypertension. THORACIC AORTA: No aneurysm. Atherosclerotic calcifications. LUNG/PLEURA: Bilateral interstitial prominence with a few small consolidative foci which may reflect evolving infectious/inflammatory etiology versus pulmonary edema. 3 mm nodular focus in the medial aspect of the right lung apex (series 8, image 89). Small left pleural effusion with subjacent atelectasis. Trace right pleural effusion with subjacent atelectasis. Lingular atelectasis. Central airways are patent. No pneumothorax. MEDIASTINUM/CHEST WALL/AXILLA: Heart is enlarged. Moderate pericardial effusion. Coronary artery calcifications are noted. No enlarged lymph nodes per size criteria. Visualized portions of the thyroid are unremarkable. Previously identified left chest wall pacer is no longer visualized with a fluid-filled cavity in its place measuring approximately 5.9 x 2.9 cm. New right-sided pacer noted. No evidence of septal bowing or right heart strain.No axillary or internal mammary lymphadenopathy. OSSEOUS STRUCTURES: Multilevel degenerative changes of the thoracolumbar spine. UPPER ABDOMEN: Unremarkable. No reflux of contrast into the hepatic veins to suggest elevated right heart pressures. CT/CT angio chest PE protocol IMPRESSION: 1. No pulmonary emboli. Main pulmonary artery is enlarged suggesting elements of pulmonary arterial hypertension. 2. Bilateral interstitial prominence with a few small consolidative foci which may reflect evolving infectious/inflammatory etiology versus pulmonary edema. 3. 3 mm nodular focus in the medial aspect of the right lung apex. Follow-up as per Fleischner criteria. 4. Small left pleural effusion with subjacent atelectasis. Trace right pleural effusion with subjacent atelectasis. 5. Heart is enlarged. Moderate pericardial effusion. 6. Previously identified left chest wall pacer is no longer visualized with a partially visualized fluid-filled cavity in its place measuring approximately 5.9 x 2.9 cm. Possibly representing postoperative seroma. Correlation with physical exam. New right-sided pacer noted. Various management parameters for solitary pulmonary nodules are in the literature. According to the Fleischner Society, recommendations for pulmonary nodules are as follows: According to the UPDATED 2017 Fleischner Society recommendations, the advised follow-up imaging for solid nodules < 6 mm is: HIGH RISK PATIENT: Optional CT at 12 months.
--- NOTE | 2023-11-18 12:57 | ED_ITS ---
HPI - General Adult General Chief complaint: Dyspnea Stated complaint: SOB 96%,REENT D/C W/PICC AND PACEMAKER PER EMS Time Seen by Provider: 11/18/23 12:47 History of Present Illness HPI narrative: The patient is a 58-year-old male who comes to the hospital today because he was feeling short of breath. The patient had a recent significant hospitalization during the last month. 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 He was quite hemodynamically unstable at that time and there were no ICU beds available here and so he was transferred by hospital in [facility] and later to [facility]. He was discharged from [facility] a week ago with a PICC line in place. He says he has been receiving daily IV antibiotics through the PICC line since getting home. He says that he received his dose today and is scheduled to have his final dose tomorrow. The patient says that he has not normally on any oxygen. He had no breathing issues yesterday. He woke up this morning feeling short of breath and has continued to feel short of breath all morning. His visiting nurse was concerned about his shortness of breath and called an ambulance after she had finished administering his antibiotic this morning. The patient has been receiving 2 g of ceftriaxone IV daily through the PICC line. Other medications include colchicine, amiodarone, metoprolol, torsemide, baby aspirin, atorvastatin, gabapentin, insulin, omeprazole, sertraline, and tramadol. Related Data Home Medications ?Medication ?Instructions ?Recorded ?Confirmed aspirin 81 mg tablet,delayed 81 mg PO DAILY 07/16/22 11/18/23 release (Adult Low Dose Aspirin) acetaminophen 325 mg tablet 650 mg PO Q6H PRN Pain, Moderate 11/18/23 11/18/23 amiodarone 200 mg tablet 200 mg PO DAILY 11/18/23 11/18/23 colchicine 0.6 mg tablet 0.3 mg PO DAILY 11/18/23 11/18/23 insulin glargine 100 unit/mL (3 25 unit subcut BID 11/18/23 11/18/23 mL) subcutaneous pen (Lantus Solostar U-100 Insulin) insulin lispro 100 unit/mL 7 unit subcut TIDWM 11/18/23 11/18/23 subcutaneous solution ipratropium 0.5 mg-albuterol 3 mg 3 ml inhalation Q6H PRN Wheezing 11/18/23 11/18/23 (2.5 mg base)/3 mL nebulization soln melatonin 3 mg tablet 3 mg PO BEDTIME insomnia 11/18/23 11/18/23 metoprolol succinate 25 mg 37.5 mg PO BID 11/18/23 11/18/23 tablet,extended release 24 hr torsemide 20 mg tablet 40 mg PO DAILY 11/18/23 11/18/23 tramadol 50 mg tablet 50 mg PO Q6H PRN Pain, Moderate 11/18/23 11/18/23 Previous Rx's ?Medication ?Instructions ?Recorded pen needle, diabetic 31 gauge x #400 ea 10/12/2209/10 (BD Ultra-Fine Mini Pen Needle) atorvastatin 40 mg tablet 40 mg PO BEDTIME 90 days #90 tabs 05/26/23 blood-glucose sensor (FreeStyle #6 ea 07/09/23 Samantha 3 Sensor device) FreeStyle Lite Strips (blood sugar #300 ea 08/21/23 diagnostic) sertraline 25 mg tablet 25 mg PO DAILY #90 tabs 08/24/23 omeprazole 20 mg capsule,delayed 20 mg PO DAILY@0630 90 days #90 09/09/23 release caps gabapentin 300 mg capsule 300 mg PO TID #270 caps 09/13/23 Ventolin HFA 90 mcg/actuation 2 puff PO Q6H PRN wheezing #18 10/15/23 aerosol inhaler (albuterol sulfate) grams Allergies Allergy/AdvReac Type Severity Reaction Status Date / Time No Known Allergies Allergy Verified 11/18/23 12:59 [No Known Allergies*] Review of Systems 2 Review of Systems: Yes all other systems are reviewed and are negative FORMERLY [facility], [facility] Past Medical History Medical History Diverticulosis Tubular adenoma of colon (~2017) History of COVID-19 Nicotine dependence, cigarettes, uncomplicated Hypertensive retinopathy Microhematuria ICD (implantable cardioverter-defibrillator) in place Tendinitis of left rotator cuff COPD (chronic obstructive pulmonary disease) KIMANI (obstructive sleep apnea) Type 2 diabetes mellitus without complications Sleep apnea CAD (coronary artery disease) Paroxysmal atrial fibrillation (~2016) Cardiomyopathy Surgical History History of cardiac cath History of ankle surgery History of implantable cardiac defibrillator (ICD) History of colonoscopy History of heart artery stent History of cardiac radiofrequency ablation History of cardioversion History of esophagogastroduodenoscopy History of umbilical hernia History of inguinal hernia Family History Family History Father Atherosclerosis Mother Cerebral aneurysm Maternal Grandmother Unknown family medical history Mother Cerebral hemorrhage Father Coronary artery disease Social History Social History Household Members: Significant Other Housing: House Are you a primary critical care nurse practitioner to a significant other at home: No Do you presently have visiting nurse or other home services: No Alcohol intake: former Patient Tobacco Use Status: Current everyday Tobacco user Tobacco use type: Cigarette Cigarette Packs Per Day: 1 Years Smoked: (current smoker - onset 14yo, 1ppd x 43yrs, 40pyh) Smoked in Last 30 Days: Yes e-Cigarette/Vaping Use: Former Use Second Hand Smoke Exposure: Yes Use of substances other than those prescribed or required for medical reasons: No Advance Directives: Yes Advance Directives on File: Yes Advance Directives Date on File: 07/09/21 service: No Current occupational status: unemployed and disabled Current occupation: rt handed Cognitive needs: No Hearing needs: No Vision needs: No Physical Exam ED Vital Signs: Vital Signs - 24 hr 11/18/23 12:52 11/18/23 13:14 11/18/23 15:06 Temperature 98.2 F Pulse Rate 77 61 76 Respiratory Rate 26 H 18 18 Blood Pressure 118/52 L Pulse Oximetry 94 Oxygen Delivery Method Nasal Cannula Oxygen Flow Rate 95 11/18/23 15:59 11/18/23 16:20 11/18/23 16:26 Temperature 98.0 F 98.3 F Pulse Rate 89 91 Respiratory Rate 21 H 24 H Blood Pressure 115/60 120/58 L 123/69 Pulse Oximetry 95 95 Oxygen Delivery Method Nasal Cannula Room Air Oxygen Flow Rate 2 11/18/23 17:26 11/18/23 17:47 Temperature 97.7 F Pulse Rate 90 92 Respiratory Rate 20 21 H Blood Pressure 120/61 125/59 L Pulse Oximetry 95 Oxygen Delivery Method Aerosol Mask Nasal Cannula Oxygen Flow Rate 2 2 BMI result Body Mass Index 29.5 Const Other: The patient is a somewhat chronically ill-appearing 58-year-old male. He is wearing nasal oxygen. He is awake and alert with a normal mental status. He does not appear in obvious distress HENMT Other: Face is symmetrical, mucous membranes moist. Eyes Other: Pupils are round equal, conjunctivae clear Neck Neck: Yes no JVD Resp Other: No increased work of breathing while the patient is on 2 L nasal cannula. There were crackles at the bases, more so on the left base. Cardio Rate: regular rate Rhythm: regular rhythm Heart sounds: S1 normal heart sound present and S2 normal heart sound present GI Other: Abdomen is soft and nontender Skin Other: Skin is pale and dry. Neuro Other: The patient is awake and alert with a normal mental status. Cranial nerves are grossly intact. Moves all extremities symmetrically. No obvious neurological deficit Extrem Other: The patient has left lower leg and foot is wrapped with an Matt bandage. No obvious calf tenderness or swelling. Medications Administered Generic Name Dose Route Start Last Admin Trade Name Freq PRN Reason Stop Dose Admin Atorvastatin Calcium 40 mg 11/18/23 21:00 11/18/23 20:58 Atorvastatin Calcium 40 Mg Tablet PO 40 mg BEDTIME MARILEE Administration Gabapentin 300 mg 11/18/23 21:00 11/18/23 20:59 Gabapentin 300 Mg Capsule PO 300 mg TID MARILEE Administration Insulin Human Lispro 0 unit 11/18/23 21:00 11/18/23 20:58 Insulin Lispro 100 Unit/Ml 3 Ml Vial SUBCUT 2 unit QIDACHS MARILEE Administration Protocol Metoprolol Succinate 25 mg 11/18/23 21:00 11/18/23 20:58 Metoprolol Succinate Er 25 Mg Tab.Er.24h PO 25 mg BID MARILEE Administration Protocol Discontinued Medications Generic Name Dose Route Start Last Admin Trade Name Freq PRN Reason Stop Dose Admin Albuterol Sulfate 2.5 mg/ 0 mg 11/18/23 14:52 11/18/23 15:05 Albuterol/Ipratropium 3 ml INHALE 11/18/23 14:53 1 dose ONCE ONE Administration Furosemide 100 mg 11/18/23 15:55 11/18/23 16:20 Furosemide 100 Mg/10 Ml Vial IVPUSH 11/18/23 15:56 100 mg ONCE ONE Administration Protocol Iohexol 100 ml 11/18/23 14:44 11/18/23 14:45 Iohexol 350 Mg/Ml 100 Ml Infus..Btl IV 11/18/23 14:45 65 ml ONCE ONE Administration Methylprednisolone Sodium Succinate 60 mg 11/18/23 16:51 11/18/23 17:26 Methylprednisolone Sod Succ 125 Mg/2 Ml Vial IVPUSH 11/18/23 16:52 60 mg ONCE ONE Administration Medical Decision Making Medical Decision Making [facility] Narrative: The patient is a 58-year-old male with multiple medical problems. He was recently hospitalized for a prolonged period of time at the [facility] system. He was septic. 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 He was discharged with a PICC line on 2 g of ceftriaxone per day. He received a new pacemaker at [facility]. He has been home a week and a half. He presents with shortness of breath today. His oxygen saturations are in the mid 80s so that he on exam he seems to have both crackles and wheezes. Given his extensive hospitalization recently I ran a D-dimer that was abnormal. This prompted a CT pulmonary angiogram that shows no pulmonary embolisms. There is a pericardial effusion. I performed a bedside ultrasound. I do not think there is tamponade physiology. With regard to the patient's shortness of breath I think it is probably a combination of some degree of congestive heart failure and also some degree of a COPD exacerbation. He was treated with bronchodilators, methylprednisolone, and also IV furosemide. He seems stable. He will be admitted to the hospitalist service Lab Data 11/18/23 13:10 11/18/23 13:10 Labs: Lab Results 11/18/23 11/18/23 11/18/23 Range/Units 13:08 13:10 13:14 WBC 7.6 (4.8-10.8) X10*3/uL RBC 3.34 L D (4.60-5.80) X10*6/uL Hgb 9.5 L D (14.0-18.0) g/dl Hct 30.6 L D (42.0-52.0) % MCV 91.6 (80.0-98.0) fL MCH 28.4 (27.0-33.0) pg MCHC 31.0 (31.0-36.0) g/dl RDW 17.2 H (11.0-16.0) % Plt Count 524 H D (160-400) X10*3/uL MPV 8.9 L (9.4-12.4) fL Immature Gran % (Auto) 0.4 (0.0-0.4) % Neut % (Auto) 63.1 (45-73) % Lymph % (Auto) 20.9 (20-40) % [place] % (Auto) 11.9 H (2-11) % Eos % (Auto) 2.7 (0-4) % Baso % (Auto) 1.0 (0-2) % Lymph # (Auto) 1.6 (1.2-4.9) X10*3/uL [place] # (Auto) 0.9 (0.1-1.2) X10*3/uL Eos # (Auto) 0.2 (0.0-0.4) X10*3/uL Baso # (Auto) 0.1 (0.0-0.2) X10*3/uL Abs Immat Gran (auto) 0.03 (0.00-0.03) X10*3/uL Absolute Neuts (auto) 4.8 (2.0-8.3) x10*3/uL Absolute Nucleated RBC 0.000 (0.0-0.012) X10*3/uL Nucleated RBC % (auto) 0.0 (0.0-0.2) /100WBC PT 15.6 H D (11.1-13.3) SEC INR 1.3 H (0.9-1.1) D-Dimer High Sensitivty 790 NG/ML VBG pH 7.46 H (7.32-7.43) VBG pCO2 47 mmHg VBG pO2 48 mmHg VBG HCO3 34 H (22-26) mmol/L VBG O2 Saturation 84.0 % VBG Base Excess 9.5 mmol/L Sodium 141 (135-145) mmol/L Potassium 3.5 (3.3-5.1) mmol/L Chloride 103 (96-108) mmol/L Carbon Dioxide 30 H (22-29) mmol/L Anion Gap 12 (12-20) BUN 19 H (9-16) mg/dL Creatinine 0.85 (0.5-1.4) mg/dL Estim Creat Clear Calc 109.3 Estimated GFR > 60 Random Glucose 229 H (60-115) mg/dL Calcium 8.4 (8.4-10.2) mg/dL Magnesium 2.0 (1.6-2.6) mg/dL Total Bilirubin 0.2 (0.0-1.0) mg/dL Direct Bilirubin 0.2 (0.0-0.5) mg/dL AST 42 H (5-37) U/L ALT 30 (0-40) U/L Alkaline Phosphatase 51 (39-117) U/L Troponin I High Sens 10.2 D (<3.5-35.0) ng/L C-Reactive Protein 4.44 H (< or = 0.50) mg/dL B-Natriuretic Peptide 1286 H (<100) pg/mL Total Protein 6.9 (6.5-8.0) g/dL Albumin 2.5 L (3.5-5.0) g/dL Urine Color Urine Appearance Urine pH (5.0-9.0) Ur Specific Oliver (1.005-1.025) Urine Protein (Neg-Trace) mg/dL Urine Glucose (UA) (Negative) mg/dL Urine Ketones (Negative) mg/dL Urine Blood (Negative) Urine Nitrite (Negative) Ur Leukocyte Esterase (Negative) Ethyl Alcohol < 10 mg/dL Influenza Type A (PCR) NEGATIVE (Negative) Influenza Type B (PCR) NEGATIVE (Negative) RSV RNA Qual (PCR) NEGATIVE (Negative) SARS-CoV-2 RNA (RT-PCR) NEGATIVE (Negative) 11/18/23 Range/Units 18:14 WBC (4.8-10.8) X10*3/uL RBC (4.60-5.80) X10*6/uL Hgb (14.0-18.0) g/dl Hct (42.0-52.0) % MCV (80.0-98.0) fL MCH (27.0-33.0) pg MCHC (31.0-36.0) g/dl RDW (11.0-16.0) % Plt Count (160-400) X10*3/uL MPV (9.4-12.4) fL Immature Gran % (Auto) (0.0-0.4) % Neut % (Auto) (45-73) % Lymph % (Auto) (20-40) % [place] % (Auto) (2-11) % Eos % (Auto) (0-4) % Baso % (Auto) (0-2) % Lymph # (Auto) (1.2-4.9) X10*3/uL [place] # (Auto) (0.1-1.2) X10*3/uL Eos # (Auto) (0.0-0.4) X10*3/uL Baso # (Auto) (0.0-0.2) X10*3/uL Abs Immat Gran (auto) (0.00-0.03) X10*3/uL Absolute Neuts (auto) (2.0-8.3) x10*3/uL Absolute Nucleated RBC (0.0-0.012) X10*3/uL Nucleated RBC % (auto) (0.0-0.2) /100WBC PT (11.1-13.3) SEC INR (0.9-1.1) D-Dimer High Sensitivty NG/ML VBG pH (7.32-7.43) VBG pCO2 mmHg VBG pO2 mmHg VBG HCO3 (22-26) mmol/L VBG O2 Saturation % VBG Base Excess mmol/L Sodium (135-145) mmol/L Potassium (3.3-5.1) mmol/L Chloride (96-108) mmol/L Carbon Dioxide (22-29) mmol/L Anion Gap (12-20) BUN (9-16) mg/dL Creatinine (0.5-1.4) mg/dL Estim Creat Clear Calc Estimated GFR Random Glucose (60-115) mg/dL Calcium (8.4-10.2) mg/dL Magnesium (1.6-2.6) mg/dL Total Bilirubin (0.0-1.0) mg/dL Direct Bilirubin (0.0-0.5) mg/dL AST (5-37) U/L ALT (0-40) U/L Alkaline Phosphatase (39-117) U/L Troponin I High Sens (<3.5-35.0) ng/L C-Reactive Protein (< or = 0.50) mg/dL B-Natriuretic Peptide (<100) pg/mL Total Protein (6.5-8.0) g/dL Albumin (3.5-5.0) g/dL Urine Color Yellow Urine Appearance Clear Urine pH 7.0 (5.0-9.0) Ur Specific Oliver 1.015 (1.005-1.025) Urine Protein Negative (Neg-Trace) mg/dL Urine Glucose (UA) Negative (Negative) mg/dL Urine Ketones Negative (Negative) mg/dL Urine Blood Negative (Negative) Urine Nitrite Negative (Negative) Ur Leukocyte Esterase Negative (Negative) Ethyl Alcohol mg/dL Influenza Type A (PCR) (Negative) Influenza Type B (PCR) (Negative) RSV RNA Qual (PCR) (Negative) SARS-CoV-2 RNA (RT-PCR) (Negative) Independent Interpretation I performed an independent interpretation of an: EKG Interpretation: EKG at 12:57 shows atrial paced rhythm with prolonged AV conduction and occasional ventricular paced complexes at 62 beats per minute Critical Care Time Critical Care Time Critical Care Time: Yes Total Critical Care Time: 35 Attestation: The patient was critically ill with a high probability of imminent or life- threatening deterioration. ?I spent greater than 30 minutes of discontinuous time evaluating the patient, delivering critical care at the bedside, discussing evaluating data with consultants. ?Critical care time does not include time spent performing separately billable procedures or teaching. ?Time spent performing critical care with 35 minutes. Discharge Plan Discharge Clinical Impression: Shortness of breath, Congestive heart failure, COPD exacerbation Patient Disposition: Admitted As Inpatient
--- NOTE | 2023-11-18 13:01 | ECG_ITS ---
Test Reason : dyspnea Blood Pressure : / mmHG Vent. Rate : 062 BPM Atrial Rate : 062 BPM P-R Int : 230 ms QRS Dur : 118 ms QT Int : 464 ms P-R-T Axes : 000 001 051 degrees QTc Int : 470 ms Atrial-paced rhythm with prolonged AV conduction with Premature atrial complexes with Aberrant conduction Low voltage QRS Incomplete left bundle branch block Nonspecific T wave abnormality Abnormal ECG When compared with ECG of 18-NOV-2023 12:57, No significant changes seen Referred By: Kyree Gross Electronically Signed By:Jaspreet Montoya
[2023-11-18 13:20] LABS: Basophils Absolute Auto 0.1 X10*3/uL (0.0-0.2); Eosinophils Absolute Auto 0.2 X10*3/uL (0.0-0.4); Eosinophils Percent Auto 2.7 % (0-4); Hematocrit 30.6 % (42.0-52.0); Hemoglobin 9.5 g/dl (14.0-18.0); Imm Gran Abs Auto 0.03 X10*3/uL (0.00-0.03); Imm Gran Pct Auto 0.4 % (0.0-0.4); Lymphocytes Absolute Auto 1.6 X10*3/uL (1.2-4.9); Lymphocytes Percent Auto 20.9 % (20-40); MANUAL DIFF FLAG NO; Mean Corpuscular Hemoglobin 28.4 pg (27.0-33.0); Mean Corpuscular Volume 91.6 fL (80.0-98.0); Mean Platelet Volume 8.9 fL (9.4-12.4); Monocytes Absolute Auto 0.9 X10*3/uL (0.1-1.2); Monocytes Percent Auto 11.9 % (2-11); Neutrophils Absolute Auto 4.8 x10*3/uL (2.0-8.3); Neutrophils Percent Auto 63.1 % (45-73); Platelet Count 524 X10*3/uL (160-400); Red Blood Count 3.34 X10*6/uL (4.60-5.80); Red Cell Distribution Width 17.2 % (11.0-16.0); White Blood Count 7.6 X10*3/uL (4.8-10.8)
[2023-11-18 13:22] LABS: Venous Blood Gas Refer to POC result
[2023-11-18 13:22] LABS: VBG Base Excess 9.5 mmol/L; VBG HCO3 34 mmol/L (22-26); VBG pCO2 47 mmHg; VBG pH 7.46 (7.32-7.43); VBG pO2 48 mmHg
[2023-11-18 13:29] LABS: INTERNATIONAL NORM RATIO 1.3 (0.9-1.1); Prothrombin Time 15.6 SEC (11.1-13.3)
[2023-11-18 13:36] LABS: Alanine Aminotransferase 30 U/L (0-40); Albumin Level 2.5 g/dL (3.5-5.0); Alkaline Phosphatase 51 U/L (39-117); Anion Gap 12 (12-20); Aspartate Amino Transferase 42 U/L (5-37); Bilirubin Direct 0.2 mg/dL (0.0-0.5); Bilirubin Total 0.2 mg/dL (0.0-1.0); Blood Urea Nitrogen 19 mg/dL (9-16); C Reactive Protein 4.44 mg/dL (< or = 0.50); Calcium 8.4 mg/dL (8.4-10.2); Carbon Dioxide 30 mmol/L (22-29); Chloride 103 mmol/L (96-108); Creatinine Clr Calc Pharmacy 109.3; Estimated Glomerular Filt Rate > 60; Ethanol < 10 mg/dL; Glucose Random 229 mg/dL (60-115); Potassium 3.5 mmol/L (3.3-5.1); Sodium 141 mmol/L (135-145); Total Protein 6.9 g/dL (6.5-8.0)
[2023-11-18 13:40] LABS: B Type Natriuretic Peptide 1286 pg/mL (<100)
[2023-11-18 13:41] LABS: Troponin-I High Sensitivity 10.2 ng/L (<3.5-35.0)
[2023-11-18 13:59] LABS: Influenza A PCR NEGATIVE (Negative); Influenza B PCR NEGATIVE (Negative); Resp Syncy Virus RNA Qual PCR NEGATIVE (Negative); SARS COV2 PCR INHOUSE NEGATIVE (Negative)
[2023-11-18 14:16] LABS: D Dimer High Sensitivity 790 NG/ML
[2023-11-18] MEDS: iohexoL 350 MG/ML 100 ML INFUS..BTL IV (14:45)
[2023-11-18] MEDS: Albuterol Sulfate 2.5 MG, Albuterol/Iprat 2.5/0.5MG 3 ML 3 ML INHALE (15:05)
[2023-11-18] MEDS: Furosemide 100 MG/10 ML VIAL IVPUSH (16:20)
[2023-11-18] MEDS: methylPREDNISolone Sod Succ 125 MG/2 ML VIAL 60 MG IVPUSH (17:26)
[2023-11-18 18:28] LABS: Appearance Urine Clear; Color Urine Yellow; Glucose Urine UA Negative (Negative); Leukocyte Esterase Urine Negative (Negative); Nitrite Urine Negative (Negative); Specific Gravity - Urine 1.015 (1.005-1.025); Urine Blood Negative (Negative); Urine Ketones Negative (Negative); Urine Protein Negative (Neg-Trace)
--- NOTE | 2023-11-18 18:31 | PM.IMHP ---
History of Present Illness Date of Service: 11/18/23 Chief Complaint: Generalized weakness/dyspnea on exertion/diarrhea 58-year-old gentleman with past medical history significant for ischemic cardiomyopathy EF 15-20% status post AICD, coronary artery disease status post PCI hypertension COPD, obstructive sleep apnea on CPAP, history of atrial fibrillation on Eliquis, was admitted to [facility] on 10/27 for EP evaluation due to concern for ICD vegetation with streptococcal bacteremia, patient was also found to have post influenza staph aureus pneumonia and osteomyelitis of left foot, in [facility] patient was treated for bacteremia with Staphylococcus aureus, Enterococcus faecalis and Corynebacterium species, his ICD was as extracted on 11/02, his cultures from ICD remained negative he underwent right-sided dual-chamber ICD implantation on November 08 subsequently treated with vancomycin and was transitioned to IV ceftriaxone with end date of antibiotics 11/18 , patient during the course of hospitalization was also managed for acute on chronic heart failure with reduced EF required treatment with IV Lasix drip now transitioned to by mouth torsemide, he was also diagnosed to have pleuritic chest pain and is being treated with colchicine 0.3 mg daily for suspected pericarditis, a chest CT showed small right-sided pleural effusion, his Eliquis is on hold for 2 weeks, in [place] patient also underwent left 1st ray resection for acute osteomyelitis of left 4th metatarsal, patient was discharged home on 11/14 and he was doing fine this morning visiting nurse came to evaluate him and he was noted to have low blood pressures systolic in 80s, he complained of tiredness, he received a.m. dose of IV ceftriaxone, dressing to left foot was done, repeat blood pressure improved but remained low systolic in 100s, [facility] called EMS and patient was brought in to [facility] in ED, patient complained of generalized weakness, no chest pain, no orthopnea, no PND complaining of dyspnea on exertion, no diaphoresis no chest pain with deep breathing he denies nausea, no vomiting, no hematemesis, no abdominal pain or melena he does complain of diarrhea has had 4 bowel movements in last 24 hours, he denies headache, no dizziness, he does complain of left foot pain at site of surgery, workup showed an elevated blood sugar 229, stable renal function CRP 4.4, BNP 1 286 with chronically elevated BNP, normal troponin, hematocrit 30.6 with last hematocrit 41.3 on October 19,,CTA chest showed no pulmonary emboli enlarged pulmonary artery suggesting pulmonary arterial hypertension, bilateral interstitial prominence may reflecting evolving infectious inflammatory etiology versus pulmonary edema, 3 mm nodular focus right lung apex, small left pleural effusion, moderate pericardial effusion, left chest wall pacer no longer visualized and noted to have fluid filled cavity in its placed possibly representing postoperative seroma patient has new right-sided pacer noted. In the emergency room patient treated with IV Lasix 100 mg and IV Solu Medrol, updraft treatment and now being admitted to [facility] for continued monitoring and treatment for generalized weakness, acute on chronic CHF, moderate pericardial effusion. Review of Systems Review of Systems: General generalized weakness, no headache, no dizziness no fever chills. CVS no chest pain, no palpitation, shortness of breath with exertion. Respiratory no chest pain with deep breathing Gastrointestinal no nausea no vomiting, no abdominal pain, positive diarrhea No urinary frequency, no urgency Skin no rash Musculoskeletal left foot pain All other system reviewed and negative [facility] Medical History Diverticulosis Tubular adenoma of colon (~2018) History of COVID-19 Nicotine dependence, cigarettes, uncomplicated Hypertensive retinopathy Microhematuria ICD (implantable cardioverter-defibrillator) in place Tendinitis of left rotator cuff COPD (chronic obstructive pulmonary disease) KIMANI (obstructive sleep apnea) Type 2 diabetes mellitus without complications Sleep apnea CAD (coronary artery disease) Paroxysmal atrial fibrillation (~2017) Cardiomyopathy Family History Father Atherosclerosis Mother Cerebral aneurysm Maternal Grandmother Unknown family medical history Mother Cerebral hemorrhage Father Coronary artery disease Surgical History History of cardiac cath History of ankle surgery History of implantable cardiac defibrillator (ICD) History of colonoscopy History of heart artery stent History of cardiac radiofrequency ablation History of cardioversion History of esophagogastroduodenoscopy History of umbilical hernia History of inguinal hernia Social History Household Members: Significant Other Housing: House Are you a primary pediatric care coordinator to a significant other at home: No Do you presently have visiting nurse or other home services: No Alcohol intake: former Patient Tobacco Use Status: Never used Tobacco Tobacco use type: Cigarette Cigarette Packs Per Day: 1 Years Smoked: (current smoker - onset 14yo, 1ppd x 43yrs, 40pyh) Smoked in Last 30 Days: Yes e-Cigarette/Vaping Use: Former Use Second Hand Smoke Exposure: Yes Use of substances other than those prescribed or required for medical reasons: No Advance Directives: Yes Advance Directives on File: Yes Advance Directives Date on File: 07/09/21 Nutrition Risks: No Nutritional Risk service: No Current occupational status: unemployed and disabled Current occupation: rt handed Cognitive needs: No Hearing needs: No Vision needs: No Meds Allergies Allergy/AdvReac Type Severity Reaction Status Date / Time No Known Allergies Allergy Verified 11/18/23 12:59 [No Known Allergies*] Home Medications ?Medication ?Instructions ?Recorded ?Confirmed ?Last Taken ?Type aspirin 81 mg tablet,delayed 81 mg PO DAILY 07/16/22 11/18/23 11/16/23 History release (Adult Low Dose Aspirin) acetaminophen 325 mg tablet 650 mg PO Q6H PRN Pain, Moderate 11/18/23 11/18/23 Unknown History amiodarone 200 mg tablet 200 mg PO DAILY 11/18/23 11/18/23 11/16/23 History colchicine 0.6 mg tablet 0.3 mg PO DAILY 11/18/23 11/18/23 11/16/23 History insulin glargine 100 unit/mL (3 25 unit subcut BID 11/18/23 11/18/23 11/16/23 History mL) subcutaneous pen (Lantus Solostar U-100 Insulin) insulin lispro 100 unit/mL 7 unit subcut TIDWM 11/18/23 11/18/23 11/16/23 History subcutaneous solution ipratropium 0.5 mg-albuterol 3 mg 3 ml inhalation Q6H PRN Wheezing 11/18/23 11/18/23 Unknown History (2.5 mg base)/3 mL nebulization soln melatonin 3 mg tablet 3 mg PO BEDTIME insomnia 11/18/23 11/18/23 11/16/23 History metoprolol succinate 25 mg 37.5 mg PO BID 11/18/23 11/18/23 11/16/23 History tablet,extended release 24 hr torsemide 20 mg tablet 40 mg PO DAILY 11/18/23 11/18/23 11/16/23 History tramadol 50 mg tablet 50 mg PO Q6H PRN Pain, Moderate 11/18/23 11/18/23 Unknown History Physical Exam Vital Signs and Narrative: Vital Signs: Last Vital Signs Temp 97.7 F 11/18/23 17:47 Pulse 92 11/18/23 17:47 Resp 21 H 11/18/23 17:47 BP 125/59 L 11/18/23 17:47 Pulse Ox 95 11/18/23 17:26 O2 Del Method Nasal Cannula 11/18/23 17:47 O2 Flow Rate 2 11/18/23 17:47 Oxygen Flow Rate 2 11/18/23 12:52 BMI result Body Mass Index 29.5 Const: Other: General awake alert x3,in no acute distress. Neck supple, no JVD. CVS regular rate rhythm, Respiratory lungs clear to auscultation, no rales, no wheeze, no rhonchi, no use of accessory muscle, short of breath during conversation Gastrointestinal abdomen soft, non tender, bowel sounds audible, no guarding , no rigidity. Extremities left foot dressing in place no drainage noted, no pitting edema,Ch left leg bigger than right Neuro nonfocal patient moving all 4 extremity speech clear. Skin left anterior chest wall swelling/ecchymosis at site of previous pacemaker Steri-Strips in place Right-anterior chest wall pacemaker Psych appropriate affect Results Labs 11/19/23 11:19 11/19/23 11:19 Labs: Laboratory Results - last 24 hr 11/18/23 11/18/23 11/18/23 13:08 13:10 13:14 MCV 91.6 MCH 28.4 MCHC 31.0 RDW 17.2 H Plt Count 524 H D MPV 8.9 L Immature Gran % (Auto) 0.4 Neut % (Auto) 63.1 Lymph % (Auto) 20.9 [place] % (Auto) 11.9 H Eos % (Auto) 2.7 Baso % (Auto) 1.0 Lymph # (Auto) 1.6 [place] # (Auto) 0.9 Eos # (Auto) 0.2 Baso # (Auto) 0.1 Abs Immat Gran (auto) 0.03 Absolute Neuts (auto) 4.8 Absolute Nucleated RBC 0.000 Nucleated RBC % (auto) 0.0 PT 15.6 H D INR 1.3 H D-Dimer High Sensitivty 790 VBG pH 7.46 H VBG pCO2 47 VBG pO2 48 VBG HCO3 34 H VBG O2 Saturation 84.0 VBG Base Excess 9.5 Anion Gap 12 Estim Creat Clear Calc 109.3 Estimated GFR > 60 Random Glucose 229 H Calcium 8.4 Magnesium 2.0 Total Bilirubin 0.2 Direct Bilirubin 0.2 AST 42 H ALT 30 Alkaline Phosphatase 51 Troponin I High Sens 10.2 D C-Reactive Protein 4.44 H B-Natriuretic Peptide 1286 H Total Protein 6.9 Albumin 2.5 L Urine Color Urine Appearance Urine pH Ur Specific [place] Urine Protein Urine Glucose (UA) Urine Ketones Urine Blood Urine Nitrite Ur Leukocyte Esterase Ethyl Alcohol < 10 Influenza Type A (PCR) NEGATIVE Influenza Type B (PCR) NEGATIVE RSV RNA Qual (PCR) NEGATIVE SARS-CoV-2 RNA (RT-PCR) NEGATIVE 11/18/23 18:14 MCV MCH MCHC RDW Plt Count MPV Immature Gran % (Auto) Neut % (Auto) Lymph % (Auto) [place] % (Auto) Eos % (Auto) Baso % (Auto) Lymph # (Auto) [place] # (Auto) Eos # (Auto) Baso # (Auto) Abs Immat Gran (auto) Absolute Neuts (auto) Absolute Nucleated RBC Nucleated RBC % (auto) PT INR D-Dimer High Sensitivty VBG pH VBG pCO2 VBG pO2 VBG HCO3 VBG O2 Saturation VBG Base Excess Anion Gap Estim Creat Clear Calc Estimated GFR Random Glucose Calcium Magnesium Total Bilirubin Direct Bilirubin AST ALT Alkaline Phosphatase Troponin I High Sens C-Reactive Protein B-Natriuretic Peptide Total Protein Albumin Urine Color Yellow Urine Appearance Clear Urine pH 7.0 Ur Specific [place] 1.015 Urine Protein Negative Urine Glucose (UA) Negative Urine Ketones Negative Urine Blood Negative Urine Nitrite Negative Ur Leukocyte Esterase Negative Ethyl Alcohol Influenza Type A (PCR) Influenza Type B (PCR) RSV RNA Qual (PCR) SARS-CoV-2 RNA (RT-PCR) Imaging Radiologist's Impressions: Impressions Chest X-Ray 11/18/23 13:19 IMPRESSION: Hazy opacities throughout the mid and lower lungs, similar to the prior examination. Infectious/inflammatory etiologies should be considered. There is a small right pleural effusion. Chest CTA 11/18/23 14:49 IMPRESSION: 1. No pulmonary emboli. Main pulmonary artery is enlarged suggesting elements of pulmonary arterial hypertension. 2. Bilateral interstitial prominence with a few small consolidative foci which may reflect evolving infectious/inflammatory etiology versus pulmonary edema. 3. 3 mm nodular focus in the medial aspect of the right lung apex. Follow-up as per Fleischner criteria. 4. Small left pleural effusion with subjacent atelectasis. Trace right pleural effusion with subjacent atelectasis. 5. Heart is enlarged. Moderate pericardial effusion. 6. Previously identified left chest wall pacer is no longer visualized with a partially visualized fluid-filled cavity in its place measuring approximately 5.9 x 2.9 cm. Possibly representing postoperative seroma. Correlation with physical exam. New right-sided pacer noted. Various management parameters for solitary pulmonary nodules are in the literature. According to the Fleischner Society, recommendations for pulmonary nodules are as follows: According to the UPDATED 2017 Fleischner Society recommendations, the advised follow-up imaging for solid nodules < 6 mm is: HIGH RISK PATIENT: Optional CT at 12 months. Assessment and Plan (1) Pericardial effusion: Status: Acute (2) COPD exacerbation: Status: Acute (3) Congestive heart failure: Status: Acute Plan 58-year-old male with ischemic cardiomyopathy EF 15-20% status post AICD, coronary artery disease status post PCI, cirrhotic state apnea, COPD, atrial fibrillation on Eliquis presented to [facility] due to symptoms of generalized weakness low blood pressures and shortness of breath and being admitted to intermediate care unit. Acute on chronic congestive heart failure with reduced EF/cardiomyopathy Status post IV Lasix in ED/hold home dose of torsemide follow clinical course Not on spironolactone/Matt/Arb due to hyperkalemia Follow I's and O's/daily weight Cardiology consult Repeat echocardiogram follow BMP/BNP and magnesium Infected ICD lead status post ICD extraction on November 02 Status post right-sided dual chamber ICD implantation on Continue IV ceftriaxone 2 g every 24 hours last dose November 18/PICC line to left upper extremity placed on 11/08 Osteomyelitis left foot status post partial 1st ray resection and 5th metatarsal wound debridement done on for acute osteomyelitis of left 4th metatarsal Wound culture positive for Staphylococcus Keppra Nonweightbearing on left foot Wound dressing/Ultram for pain control cont ultram History of obstructive sleep apnea will place on CPAP Acute pericarditis continue colchicine Bedside echo in ED showed mild to moderate pericardial effusion, low voltage EKG CTA showed moderate pericardial effusion will repeat echocardiogram cardiology consult. History of coronary artery disease-status post PCI Continue aspirin/Lipitor/metoprolol History of COPD mild acute exacerbation continue home inhalers,iv steroids. Diabetes mellitus type 2 on insulin take Lantus 25 units bid and insulin sliding scale. Paroxysmal atrial fibrillation, was recommended to hold Eliquis for 2 weeks probably due to pericardial effusion, continue beta-blockers EKG showed atrial paced rhythm, low-voltage QRS Mood disorder resume sertraline Full code DVT prophylaxis Lovenox In my clinical judgment patient will need to night inpatient hospitalization for close monitoring of shortness of breath, hypotension and moderate pericardial effusion requiring further testing and expert consultation that can not be provided in less acute setting. Quality Stroke Does the patient have a stroke diagnosis?: No VTE Prior VTE?: No VTE Risk Level:: Medical - moderate - high VTE Device Contraindication: Treatment Not Indicated VTE Drug Contraindication: N/A - Med Ordered
--- NOTE | 2023-11-18 19:03 | MHC.EDTECH ---
Pt given a tuna sandwich and diet gingerale
--- NOTE | 2023-11-18 20:20 | PHA.MEDREC ---
Pharmacy Consult ? Medication Reconciliation Pharmacy has completed the medication reconciliation. Spoke to patient, he was recently discharged from [facility] with new medications that he can't name so he said to use the med list from [facility]. His last dose was on 11/16/23. He confirmed the dose of Lantus (25 units bid) and Humalog (7 units tid with meals). He hasn't had trulicity in a month.
[2023-11-18 20:42] LABS: Glucose, Whole Blood 193 mg/dL (60-115)
[2023-11-18] MEDS: Metoprolol Succinate ER 25 MG TAB.ER.24H PO (20:58)
[2023-11-18] MEDS: Atorvastatin Calcium 40 MG TABLET PO (20:58)
[2023-11-18] MEDS: Insulin Lispro 100 UNIT/ML 3 ML VIAL SUBCUT (20:58)
[2023-11-18] MEDS: Gabapentin 300 MG CAPSULE PO (20:59)
[2023-11-18 22:55] LABS: Glucose, Whole Blood 258 mg/dL (60-115)
[2023-11-19] VITALS (22 sets, daily range): BP systolic 96–125; BP diastolic 49–83; PULSE 57–64; RESP 16–27; TEMP 35.9–36.7; O2SAT 94–99
--- NOTE | 2023-11-19 01:24 | PM.EVENT ---
Event Note Date of Service: 11/19/23 Event Note: patient with dyspnea. Examination with bilateral crackles. VBG okay. Will order additional dose of IV Lasix Time Spent With Patient Time: Total time managing care of this patient today ____ minutes.
[2023-11-19] MEDS: Morphine Sulfate 4 MG/ML CARTRIDGE 3 MG IVPUSH ×5 (01:28→23:46)
[2023-11-19] MEDS: levalbuterol HCL 1.25 MG/3 ML VIAL.NEB INHALE ×2 (01:39→10:03)
[2023-11-19 01:44] LABS: Venous Blood Gas Refer to POC result
[2023-11-19 01:49] LABS: VBG Base Excess 7.7 mmol/L; VBG HCO3 32 mmol/L (22-26); VBG pCO2 47 mmHg; VBG pH 7.44 (7.32-7.43); VBG pO2 34 mmHg
[2023-11-19] MEDS: Furosemide 100 MG/10 ML VIAL 60 MG IVPUSH (02:06)
[2023-11-19] MEDS: Melatonin 3 MG TABLET PO (02:06)
--- NOTE | 2023-11-19 04:30 | MHC.EDTECH ---
This tech took over care of patient at this time,hourly rounds and vitals completed,BP is low 96/49 RN made aware. Belongings list completed and copy placed in chart.
--- NOTE | 2023-11-19 04:34 | MHC.EDTECH ---
Patient ambulated to the bathroom with minimal assist.
--- NOTE | 2023-11-19 07:00 | CA_ITS ---
Transthoracic Echocardiogram Patient (Last, First, Middle): Jr Cruz, Gender: Male Date of : 1965 Age: 58 Procedure Date: 11/19/2023 Procedure Type: Transthoracic Echocardiogram Location: ER Height: 180.34 cm Weight: 95.71 kg BSA: 2.16 m2 Heart Rate: bpm BP: 105 / 66 mmHg Rn Lvn: Referring MD: Mari Gómez MD Symptoms: Pericardial effusion Study Quality: Fair but adequate Conclusions: - Circumferential pericardial effusion which is moderate in size around the RV but moderate to large sized along the LV. - There are no definitive echocardiographic findings of tamponade physiology. Findings Left Ventricle Normal left ventricular cavity size. There is mildly increased left ventricular wall thickness. The left ventricular systolic function is moderately decreased. The visually estimated ejection fraction is between 30 35%. Diastolic function is indeterminate on the basis of available data. Right Ventricle Normal right ventricular cavity size. There is mild to moderately decreased right ventricular systolic function. There is an ICD wire seen in the right ventricle. Venous The inferior vena cava is normal in size and collapses greater than 50% with inspiration. Pericardium/Pleural There are no definitive echocardiographic findings of tamponade physiology. Circumferential pericardial effusion which is moderate in size around the RV but moderate to large sized along the LV. Prior Study Comparison Changes noted compared to prior study dated: 06/22/2023. Moderate pericardial effusion circumferentially, mod to large around LV, No tamponade. Measurements 2D Linear Measurements IVSd: 1.34 0.6-0.9/0.6-1.0 cm LVIDd: 5.22 3.9-5.3/4.2-5.9 cm LVIDd Index: 2.42 2.4-3.2/2.2-3.1 cm/m2 LVIDs: 4.41 2.0-3.6 cm LVPWd: 1.33 0.7-1.1 cm LV Mass: 362.89 67-162/88-224 g LV Mass Index: 168.00 43-95/49-115 g/m2 2D Systolic Function EF 4C: 34.60 >55% EF 2C: 24.20 >55% EF BiP: 30.40 >55% Tricuspid Valve RA Press: 3.00 Updated in Other Vendor System with Status of Final Jaspreet Montoya MD electronically signed on 11/19/2023 7:05:14 PM with status of Final
[2023-11-19 07:44] LABS: Glucose, Whole Blood 285 mg/dL (60-115)
[2023-11-19] MEDS: Amiodarone HCL 200 MG TABLET PO (08:27)
[2023-11-19] MEDS: Gabapentin 300 MG CAPSULE PO ×3 (08:28→20:43)
[2023-11-19] MEDS: Aspirin Enteric Coated 81 MG TABLET.DR PO (08:29)
[2023-11-19] MEDS: Sertraline HCL 25 MG TABLET PO (08:29)
[2023-11-19] MEDS: Metoprolol Succinate ER 25 MG TAB.ER.24H PO ×2 (08:30→20:43)
[2023-11-19] MEDS: Insulin Glargine,Hum.rec.anlog 100 UNIT/ML 10 ML VIAL 18 UNIT SUBCUT ×2 (08:37→20:44)
[2023-11-19] MEDS: Insulin Lispro 100 UNIT/ML 3 ML VIAL SUBCUT ×4 (08:52→20:43)
--- NOTE | 2023-11-19 10:39 | MHC.CM.PN ---
IMM 08/21/23, Pt lives alone, has Home health services from [facility]: assist with chores, 9 hours a week. He has [facility]NA nursing services, he could not name the agency, will let us know. DME: CPAP, nebulizer, HCP is on file, and confirmed, names Chitra Espino. He is able to arrange transportation at [facility]. PCP confirmed: Dr. Crisostomo. DC plan is home, resume services. CM to follow for DC needs.
[2023-11-19] MEDS: Furosemide 100 MG/10 ML VIAL 80 MG IVPUSH ×2 (11:11→19:18)
--- NOTE | 2023-11-19 11:17 | PM.CNCAR ---
History of Present Illness History of Present Illness Date of Service: 11/19/23 Requesting physician: Mari Gómez Chief complaint: Genralized weakness/dyspnea on exertion Narrative: [age] year gentleman with complex medical issues who recently came with sepsis and was transferred to [facility] because there was no local beds available. It appears he was there for 7 days and eventually went to [facility] because of ICD lead infection. He said that a device was explanted there. He has been on antibiotics which she is finishing today or tomorrow. He said he came back home on Wednesday but over the last couple of days he started getting short of breath and just could not breathe. His visiting nurse saw him yesterday and noticed his blood pressure to be low in 80s and decided to send him to the emergency department. In the ER he was wheezing and was thought to be in COPD exacerbation. Is imaging has shown pericardial effusion. He is saying that he had a pericardial effusion diagnosed while he was in [place] and this was observed. He also was started on colchicine because there was some pericarditis and it appears this could be the reason he developed pericardial effusion. His Eliquis was held and he was advised to hold it for 2 weeks probably due to pericardial effusion. He does not remember any obvious reasons given to him. He is quite short of breath on examination and he is saying that he is out of breath no matter what he does. He has not dizzy or lightheaded. His blood pressure throughout the hospitalization has not been low. He has atrial paced rhythm with PVCs but no electrical alternans on the EKG. [facility] Past Medical History Medical History Diverticulosis Tubular adenoma of colon (~2018) History of COVID-19 Nicotine dependence, cigarettes, uncomplicated Hypertensive retinopathy Microhematuria ICD (implantable cardioverter-defibrillator) in place Tendinitis of left rotator cuff COPD (chronic obstructive pulmonary disease) KIMANI (obstructive sleep apnea) Type 2 diabetes mellitus without complications Sleep apnea CAD (coronary artery disease) Paroxysmal atrial fibrillation (~2017) Cardiomyopathy Family History Family History Father Atherosclerosis Mother Cerebral aneurysm Maternal Grandmother Unknown family medical history Mother Cerebral hemorrhage Father Coronary artery disease Surgical History Surgical History History of cardiac cath History of ankle surgery History of implantable cardiac defibrillator (ICD) History of colonoscopy History of heart artery stent History of cardiac radiofrequency ablation History of cardioversion History of esophagogastroduodenoscopy History of umbilical hernia History of inguinal hernia Social History Social History Household Members: Significant Other Housing: House Are you a primary rn managed care to a significant other at home: No Do you presently have visiting nurse or other home services: No Alcohol intake: former Patient Tobacco Use Status: Never used Tobacco Tobacco use type: Cigarette Cigarette Packs Per Day: 1 Years Smoked: (current smoker - onset 14yo, 1ppd x 43yrs, 40pyh) Smoked in Last 30 Days: Yes e-Cigarette/Vaping Use: Former Use Second Hand Smoke Exposure: Yes Use of substances other than those prescribed or required for medical reasons: No Advance Directives: Yes Advance Directives on File: Yes Advance Directives Date on File: 07/09/21 Nutrition Risks: No Nutritional Risk service: No Current occupational status: unemployed and disabled Current occupation: rt handed Cognitive needs: No Hearing needs: No Vision needs: No Meds Allergies Allergy/AdvReac Type Severity Reaction Status Date / Time No Known Allergies Allergy Verified 11/18/23 12:59 [No Known Allergies*] Active Medications: Current Medications Acetaminophen (Acetaminophen 325 Mg Tablet) 650 mg PO Q6H PRN PRN Reason: Pain, Mild (Pain Scale 1-3) Albuterol Sulfate (Albuterol Sulfate 90 Mcg 8 Gm Inhaler) 2 puff INHALE Q6H PRN PRN Reason: wheezing Albuterol/Ipratropium (Albuterol/Iprat 2.5/0.5mg 3 Ml Ampul.Neb) 3 ml INHALE RQ4H WHILE AWAKE [facility] Last Admin: 11/19/23 11:07 Dose: Not Given Amiodarone HCl (Amiodarone Hcl 200 Mg Tablet) 200 mg PO DAILY [facility] Last Admin: 11/19/23 08:27 Dose: 200 mg Aspirin (Aspirin Enteric Coated 81 Mg Tablet.) 81 mg PO DAILY [facility] Last Admin: 11/19/23 08:29 Dose: 81 mg Atorvastatin Calcium (Atorvastatin Calcium 40 Mg Tablet) 40 mg PO BEDTIME [facility] Last Admin: 11/18/23 20:58 Dose: 40 mg Gabapentin (Gabapentin 300 Mg Capsule) 300 mg PO TID [facility] Last Admin: 11/19/23 08:28 Dose: 300 mg Glucose (Glucose Gel 15 Gm Gel..Gram.) 15 gm PO Q15M PRN; Protocol PRN Reason: per Hypoglycemia Standing Ord. Dextrose (D10) 250 mls @ 750 mls/hr IV Q15M PRN; Protocol PRN Reason: per Hypoglycemia Standing Ord. Insulin Glargine (Insulin Glargine,Hum.Rec.Anlog 100 Unit/Ml 10 Ml Vial) 18 unit SUBCUT BID [facility] Last Admin: 11/19/23 08:37 Dose: 18 unit Insulin Human Lispro (Insulin Lispro 100 Unit/Ml 3 Ml Vial) 0 unit SUBCUT QIDACHS [facility]; Protocol Last Admin: 11/19/23 08:52 Dose: 6 unit Levalbuterol HCl (Levalbuterol Hcl 1.25 Mg/3 Ml Vial.Neb) 1.25 mg INHALE Q4H PRN PRN Reason: sob Last Admin: 11/19/23 10:03 Dose: 1.25 mg Melatonin (Melatonin 3 Mg Tablet) 3 mg PO BEDTIME PRN PRN Reason: Insomnia Last Admin: 11/19/23 02:06 Dose: 3 mg Metoprolol Succinate (Metoprolol Succinate Er 25 Mg Tab.Er.24h) 25 mg PO BID [facility]; Protocol Last Admin: 11/19/23 08:30 Dose: 25 mg Morphine Sulfate (Morphine Sulfate 4 Mg/Ml Cartridge) 3 mg IVPUSH Q4H PRN; Protocol PRN Reason: Pain, Severe (Pain Scale 7-10) Last Admin: 11/19/23 08:33 Dose: 3 mg Omeprazole (Omeprazole 20 Mg Capsule.Dr) 20 mg PO DAILY@0630 [facility] Ondansetron HCl (Ondansetron Hcl 4 Mg/2 Ml Vial) 4 mg IVPUSH Q8H PRN PRN Reason: Nausea and Vomiting Potassium Chloride (Potassium Chloride Er 20 Meq Tab.Er.Prt) 40 meq PO DAILY [facility] Sertraline HCl (Sertraline Hcl 25 Mg Tablet) 25 mg PO DAILY [facility] Last Admin: 11/19/23 08:29 Dose: 25 mg Sodium Chloride (0.9 % Sodium Chloride Flush 3 Ml Syringe) 3 ml IVFLUSH QSHIFT [facility] Last Admin: 11/19/23 10:39 Dose: Not Given Tramadol HCl (Tramadol Hcl 50 Mg Tablet) 50 mg PO Q6H PRN PRN Reason: Pain, Moderate(Pain Scale 4-6) Home Medications ?Medication ?Instructions ?Recorded ?Confirmed ?Last Taken ?Type aspirin 81 mg tablet,delayed 81 mg PO DAILY 07/16/22 11/18/23 11/16/23 History release (Adult Low Dose Aspirin) acetaminophen 325 mg tablet 650 mg PO Q6H PRN Pain, Moderate 11/18/23 11/18/23 Unknown History amiodarone 200 mg tablet 200 mg PO DAILY 11/18/23 11/18/23 11/16/23 History colchicine 0.6 mg tablet 0.3 mg PO DAILY 11/18/23 11/18/23 11/16/23 History insulin glargine 100 unit/mL (3 25 unit subcut BID 11/18/23 11/18/23 11/16/23 History mL) subcutaneous pen (Lantus Solostar U-100 Insulin) insulin lispro 100 unit/mL 7 unit subcut TIDWM 11/18/23 11/18/23 11/16/23 History subcutaneous solution ipratropium 0.5 mg-albuterol 3 mg 3 ml inhalation Q6H PRN Wheezing 11/18/23 11/18/23 Unknown History (2.5 mg base)/3 mL nebulization soln melatonin 3 mg tablet 3 mg PO BEDTIME insomnia 11/18/23 11/18/23 11/16/23 History metoprolol succinate 25 mg 37.5 mg PO BID 11/18/23 11/18/23 11/16/23 History tablet,extended release 24 hr torsemide 20 mg tablet 40 mg PO DAILY 11/18/23 11/18/23 11/16/23 History tramadol 50 mg tablet 50 mg PO Q6H PRN Pain, Moderate 11/18/23 11/18/23 Unknown History Physical Exam Vital Signs: Vital Signs: Last Vital Signs Temp 97.2 F 11/19/23 11:10 Pulse 60 11/19/23 11:10 Resp 18 11/19/23 11:10 BP 125/61 11/19/23 11:11 Pulse Ox 99 11/19/23 11:10 O2 Del Method Nasal Cannula 11/19/23 11:10 O2 Flow Rate 2 11/19/23 11:10 Oxygen Flow Rate 2 11/18/23 12:52 BMI result Body Mass Index 29.5 GENERAL APPEARANCE: Short of breath, wheezy. NECK: no carotid bruit, + jugular venous distention. Positive hepatojugular reflux. SKIN: Right-sided new ICD site looks stable. Left side where ICD was removed has collection which he is saying is bigger than before. HEART: no murmurs, regular rate and rhythm. LUNGS: Bilateral expiratory wheezes. Crackles at bases. ABDOMEN: soft, nontender. EXTREMITIES: no edema. PERIPHERAL PULSES: equal. NEUROLOGIC: No gross deficits, AAO X 3 Objective Labs and Meds 11/18/23 13:10 11/18/23 13:10 Lab results: Laboratory Results - last 24 hr 11/18/23 11/18/23 11/18/23 13:08 13:10 13:14 WBC 7.6 RBC 3.34 L D Hgb 9.5 L D Hct 30.6 L D MCV 91.6 MCH 28.4 MCHC 31.0 RDW 17.2 H Plt Count 524 H D MPV 8.9 L Immature Gran % (Auto) 0.4 Neut % (Auto) 63.1 Lymph % (Auto) 20.9 [place] % (Auto) 11.9 H Eos % (Auto) 2.7 Baso % (Auto) 1.0 Lymph # (Auto) 1.6 [place] # (Auto) 0.9 Eos # (Auto) 0.2 Baso # (Auto) 0.1 Abs Immat Gran (auto) 0.03 Absolute Neuts (auto) 4.8 Absolute Nucleated RBC 0.000 Nucleated RBC % (auto) 0.0 PT 15.6 H D INR 1.3 H D-Dimer High Sensitivty 790 VBG pH 7.46 H VBG pCO2 47 VBG pO2 48 VBG HCO3 34 H VBG O2 Saturation 84.0 VBG Base Excess 9.5 Sodium 141 Potassium 3.5 Chloride 103 Carbon Dioxide 30 H Anion Gap 12 BUN 19 H Creatinine 0.85 Estim Creat Clear Calc 109.3 Estimated GFR > 60 POC Glucose Random Glucose 229 H Calcium 8.4 Magnesium 2.0 Total Bilirubin 0.2 Direct Bilirubin 0.2 AST 42 H ALT 30 Alkaline Phosphatase 51 Troponin I High Sens 10.2 D C-Reactive Protein 4.44 H B-Natriuretic Peptide 1286 H Total Protein 6.9 Albumin 2.5 L Urine Color Urine Appearance Urine pH Ur Specific [place] Urine Protein Urine Glucose (UA) Urine Ketones Urine Blood Urine Nitrite Ur Leukocyte Esterase Ethyl Alcohol < 10 Influenza Type A (PCR) NEGATIVE Influenza Type B (PCR) NEGATIVE RSV RNA Qual (PCR) NEGATIVE SARS-CoV-2 RNA (RT-PCR) NEGATIVE 11/18/23 11/18/23 11/18/23 18:14 20:39 22:51 WBC RBC Hgb Hct MCV MCH MCHC RDW Plt Count MPV Immature Gran % (Auto) Neut % (Auto) Lymph % (Auto) [place] % (Auto) Eos % (Auto) Baso % (Auto) Lymph # (Auto) [place] # (Auto) Eos # (Auto) Baso # (Auto) Abs Immat Gran (auto) Absolute Neuts (auto) Absolute Nucleated RBC Nucleated RBC % (auto) PT INR D-Dimer High Sensitivty VBG pH VBG pCO2 VBG pO2 VBG HCO3 VBG O2 Saturation VBG Base Excess Sodium Potassium Chloride Carbon Dioxide Anion Gap BUN Creatinine Estim Creat Clear Calc Estimated GFR POC Glucose 193 H 258 H Random Glucose Calcium Magnesium Total Bilirubin Direct Bilirubin AST ALT Alkaline Phosphatase Troponin I High Sens C-Reactive Protein B-Natriuretic Peptide Total Protein Albumin Urine Color Yellow Urine Appearance Clear Urine pH 7.0 Ur Specific [place] 1.015 Urine Protein Negative Urine Glucose (UA) Negative Urine Ketones Negative Urine Blood Negative Urine Nitrite Negative Ur Leukocyte Esterase Negative Ethyl Alcohol Influenza Type A (PCR) Influenza Type B (PCR) RSV RNA Qual (PCR) SARS-CoV-2 RNA (RT-PCR) 11/19/23 11/19/23 01:41 07:37 WBC RBC Hgb Hct MCV MCH MCHC RDW Plt Count MPV Immature Gran % (Auto) Neut % (Auto) Lymph % (Auto) [place] % (Auto) Eos % (Auto) Baso % (Auto) Lymph # (Auto) [place] # (Auto) Eos # (Auto) Baso # (Auto) Abs Immat Gran (auto) Absolute Neuts (auto) Absolute Nucleated RBC Nucleated RBC % (auto) PT INR D-Dimer High Sensitivty VBG pH 7.44 H VBG pCO2 47 VBG pO2 34 VBG HCO3 32 H VBG O2 Saturation 57.0 VBG Base Excess 7.7 Sodium Potassium Chloride Carbon Dioxide Anion Gap BUN Creatinine Estim Creat Clear Calc Estimated GFR POC Glucose 285 H Random Glucose Calcium Magnesium Total Bilirubin Direct Bilirubin AST ALT Alkaline Phosphatase Troponin I High Sens C-Reactive Protein B-Natriuretic Peptide Total Protein Albumin Urine Color Urine Appearance Urine pH Ur Specific [place] Urine Protein Urine Glucose (UA) Urine Ketones Urine Blood Urine Nitrite Ur Leukocyte Esterase Ethyl Alcohol Influenza Type A (PCR) Influenza Type B (PCR) RSV RNA Qual (PCR) SARS-CoV-2 RNA (RT-PCR) Imaging Radiologist's impression: Impressions Chest X-Ray 11/18/23 13:19 IMPRESSION: Hazy opacities throughout the mid and lower lungs, similar to the prior examination. Infectious/inflammatory etiologies should be considered. There is a small right pleural effusion. Chest CTA 11/18/23 14:49 IMPRESSION: 1. No pulmonary emboli. Main pulmonary artery is enlarged suggesting elements of pulmonary arterial hypertension. 2. Bilateral interstitial prominence with a few small consolidative foci which may reflect evolving infectious/inflammatory etiology versus pulmonary edema. 3. 3 mm nodular focus in the medial aspect of the right lung apex. Follow-up as per Fleischner criteria. 4. Small left pleural effusion with subjacent atelectasis. Trace right pleural effusion with subjacent atelectasis. 5. Heart is enlarged. Moderate pericardial effusion. 6. Previously identified left chest wall pacer is no longer visualized with a partially visualized fluid-filled cavity in its place measuring approximately 5.9 x 2.9 cm. Possibly representing postoperative seroma. Correlation with physical exam. New right-sided pacer noted. Various management parameters for solitary pulmonary nodules are in the literature. According to the Fleischner Society, recommendations for pulmonary nodules are as follows: According to the UPDATED 2017 Fleischner Society recommendations, the advised follow-up imaging for solid nodules < 6 mm is: HIGH RISK PATIENT: Optional CT at 12 months. Assessment and Plan (1) COPD exacerbation: Status: Acute (2) Congestive heart failure: Status: Acute (3) Pericardial effusion: Status: Acute Plan 58 year gentleman with known cardiomyopathy and recent device infection requiring explant of his ICD and reimplantation from the right side at [facility]. He is presenting with shortness of breath and wheezing. Clinically he appears to be in heart failure. Start him on IV Lasix 80 mg x 1 now. Depending on his output we can decide about should he be dose b.i.d. with higher or lower dose. Monitor electrolytes closely. He should be treated for COPD also because he is quite wheezy but he is saying that he gets wheezing with heart failure also. He has a [id number] pericardial effusion by echo but no obvious tamponade physiology. The effusion is circumferential but is not large in size circumferentially and is small in size around the right ventricle was posteriorly it is [id number] in size. We will continue colchicine and monitor him closely. He is getting some diarrhea from colchicine. I think we hold Eliquis for now given that he has pericarditis and effusion currently. Thank you for allowing me to participate in the care of your patient. Please feel free to contact me if you have any questions. Procedures Date of Service Date of Service: 11/19/23
[2023-11-19 11:34] LABS: Glucose, Whole Blood 276 mg/dL (60-115)
[2023-11-19] MEDS: Potassium Chloride ER 20 MEQ TAB.ER.PRT 40 MEQ PO (11:58)
[2023-11-19 11:59] LABS: Hematocrit 31.6 % (42.0-52.0); Mean Corpuscular HGB Conc 31.6 g/dl (31.0-36.0); Mean Corpuscular Hemoglobin 28.6 pg (27.0-33.0); Mean Corpuscular Volume 90.3 fL (80.0-98.0); Mean Platelet Volume 9.3 fL (9.4-12.4); Platelet Count 570 X10*3/uL (160-400); White Blood Count 8.6 X10*3/uL (4.8-10.8)
[2023-11-19 12:11] LABS: Anion Gap 10 (12-20); Blood Urea Nitrogen 23 mg/dL (9-16); Calcium 8.5 mg/dL (8.4-10.2); Carbon Dioxide 31 mmol/L (22-29); Chloride 101 mmol/L (96-108); Creatinine Clr Calc Pharmacy 102.1; Estimated Glomerular Filt Rate > 60; Glucose Random 291 mg/dL (60-115); Potassium 3.6 mmol/L (3.3-5.1); Sodium 138 mmol/L (135-145)
[2023-11-19] MEDS: Albuterol/Iprat 2.5/0.5MG 3 ML AMPUL.NEB INHALE ×2 (14:44→19:08)
--- NOTE | 2023-11-19 15:44 | P.PNIM_ITS ---
Subjective Subjective Date of Service: 11/19/23 Interval History: Events from last night noted patient developed shortness of breath and noted to have bilateral crackles required extra dose of IV Lasix 60 mg This morning patient continued to have shortness of breath, denies fever, no chills, mild cough no headache no dizziness no orthopnea, no PND. Complaining of left foot pain. Review of Systems All other system reviewed and negative Physical Exam 2 Vital Signs: Vital Signs: Last Vital Signs Temp 97.2 F 11/19/23 11:10 Pulse 63 11/19/23 14:45 Resp 23 H 11/19/23 14:59 BP 125/61 11/19/23 11:11 Pulse Ox 99 11/19/23 11:10 O2 Del Method Nasal Cannula 11/19/23 11:10 O2 Flow Rate 2 11/19/23 11:10 Oxygen Flow Rate 2 11/18/23 12:52 BMI result Body Mass Index 29.5 Const: Other: General awake alert x3, in mild respiratory distress Neck supple, no JVD. CVS regular rate rhythm, Respiratory lungs bilateral expiratory wheeze,no use of accessory muscle, short of breath during conversation Gastrointestinal abdomen soft, non tender, bowel sounds audible, no guarding , no rigidity. Extremities left foot dressing in place no drainage noted, no pitting edema,Ch left leg bigger than right due to prior leg surgery Neuro non focal Skin left anterior chest wall swelling/ecchymosis at site of previous pacemaker Steri-Strips in place Right-anterior chest wall pacemaker in place Psych appropriate affect Objective Data Active Medications Acetaminophen (Acetaminophen 325 Mg Tablet) 650 mg PO Q6H PRN PRN Reason: Pain, Mild (Pain Scale 1-3) Albuterol Sulfate (Albuterol Sulfate 90 Mcg 8 Gm Inhaler) 2 puff INHALE Q6H PRN PRN Reason: wheezing Albuterol/Ipratropium (Albuterol/Iprat 2.5/0.5mg 3 Ml Ampul.Neb) 3 ml INHALE RQ4H WHILE AWAKE [facility] Last Admin: 11/19/23 14:44 Dose: 3 ml Documented By: JUNIOR Amiodarone HCl (Amiodarone Hcl 200 Mg Tablet) 200 mg PO DAILY [facility] Last Admin: 11/19/23 08:27 Dose: 200 mg Documented By: AMARIS Aspirin (Aspirin Enteric Coated 81 Mg Tablet.) 81 mg PO DAILY [facility] Last Admin: 11/19/23 08:29 Dose: 81 mg Documented By: AMARIS Atorvastatin Calcium (Atorvastatin Calcium 40 Mg Tablet) 40 mg PO BEDTIME [facility] Last Admin: 11/18/23 20:58 Dose: 40 mg Documented By: KANDIS Gabapentin (Gabapentin 300 Mg Capsule) 300 mg PO TID [facility] Last Admin: 11/19/23 14:47 Dose: 300 mg Documented By: RTENA Glucose (Glucose Gel 15 Gm Gel..Gram.) 15 gm PO Q15M PRN; Protocol PRN Reason: per Hypoglycemia Standing Ord. Dextrose (D10) 250 mls @ 750 mls/hr IV Q15M PRN; Protocol PRN Reason: per Hypoglycemia Standing Ord. Insulin Glargine (Insulin Glargine,Hum.Rec.Anlog 100 Unit/Ml 10 Ml Vial) 18 unit SUBCUT BID [facility] Last Admin: 11/19/23 08:37 Dose: 18 unit Documented By: AMARIS Insulin Human Lispro (Insulin Lispro 100 Unit/Ml 3 Ml Vial) 0 unit SUBCUT QIDACHS [facility]; Protocol Last Admin: 11/19/23 11:58 Dose: 6 unit Documented By: TRENA Levalbuterol HCl (Levalbuterol Hcl 1.25 Mg/3 Ml Vial.Shakir) 1.25 mg INHALE Q4H PRN PRN Reason: sob Last Admin: 11/19/23 10:03 Dose: 1.25 mg Documented By: JUNIOR Melatonin (Melatonin 3 Mg Tablet) 3 mg PO BEDTIME PRN PRN Reason: Insomnia Last Admin: 11/19/23 02:06 Dose: 3 mg Documented By: CLYDE Metoprolol Succinate (Metoprolol Succinate Er 25 Mg Tab.Er.24h) 25 mg PO BID [facility]; Protocol Last Admin: 11/19/23 08:30 Dose: 25 mg Documented By: AMARIS Morphine Sulfate (Morphine Sulfate 4 Mg/Ml Cartridge) 3 mg IVPUSH Q4H PRN; Protocol PRN Reason: Pain, Severe (Pain Scale 7-10) Last Admin: 11/19/23 12:47 Dose: 3 mg Documented By: TRENA Omeprazole (Omeprazole 20 Mg Capsule.) 20 mg PO DAILY@0630 [facility] Ondansetron HCl (Ondansetron Hcl 4 Mg/2 Ml Vial) 4 mg IVPUSH Q8H PRN PRN Reason: Nausea and Vomiting Potassium Chloride (Potassium Chloride Er 20 Meq Tab.Er.Prt) 40 meq PO DAILY [facility] Last Admin: 11/19/23 11:58 Dose: 40 meq Documented By: TRENA Sertraline HCl (Sertraline Hcl 25 Mg Tablet) 25 mg PO DAILY [facility] Last Admin: 11/19/23 08:29 Dose: 25 mg Documented By: AMARIS Sodium Chloride (0.9 % Sodium Chloride Flush 3 Ml Syringe) 3 ml IVFLUSH QSHIFT [facility] Last Admin: 11/19/23 10:39 Dose: Not Given Documented By: TRENA Non-Admin Reason: pt in ed Tramadol HCl (Tramadol Hcl 50 Mg Tablet) 50 mg PO Q6H PRN PRN Reason: Pain, Moderate(Pain Scale 4-6) Labs 11/19/23 11:19 11/19/23 11:19 Labs: Laboratory Results - last 24 hr 11/18/23 11/18/23 11/18/23 18:14 20:39 22:51 MCV MCH MCHC RDW Plt Count MPV Absolute Nucleated RBC Nucleated RBC % (auto) VBG pH VBG pCO2 VBG pO2 VBG HCO3 VBG O2 Saturation VBG Base Excess Anion Gap Estim Creat Clear Calc Estimated GFR POC Glucose 193 H 258 H Random Glucose Calcium Urine Color Yellow Urine Appearance Clear Urine pH 7.0 Ur Specific [place] 1.015 Urine Protein Negative Urine Glucose (UA) Negative Urine Ketones Negative Urine Blood Negative Urine Nitrite Negative Ur Leukocyte Esterase Negative 11/19/23 11/19/23 11/19/23 01:41 07:37 11:19 MCV 90.3 MCH 28.6 MCHC 31.6 RDW 17.0 H Plt Count 570 H MPV 9.3 L Absolute Nucleated RBC 0.000 Nucleated RBC % (auto) 0.0 VBG pH 7.44 H VBG pCO2 47 VBG pO2 34 VBG HCO3 32 H VBG O2 Saturation 57.0 VBG Base Excess 7.7 Anion Gap 10 L Estim Creat Clear Calc 102.1 Estimated GFR > 60 POC Glucose 285 H Random Glucose 291 H Calcium 8.5 Urine Color Urine Appearance Urine pH Ur Specific [place] Urine Protein Urine Glucose (UA) Urine Ketones Urine Blood Urine Nitrite Ur Leukocyte Esterase 11/19/23 11:31 MCV MCH MCHC RDW Plt Count MPV Absolute Nucleated RBC Nucleated RBC % (auto) VBG pH VBG pCO2 VBG pO2 VBG HCO3 VBG O2 Saturation VBG Base Excess Anion Gap Estim Creat Clear Calc Estimated GFR POC Glucose 276 H Random Glucose Calcium Urine Color Urine Appearance Urine pH Ur Specific [place] Urine Protein Urine Glucose (UA) Urine Ketones Urine Blood Urine Nitrite Ur Leukocyte Esterase Assessment and Plan (1) Pericardial effusion: Status: Acute (2) COPD exacerbation: Status: Acute Plan 58-year-old male with ischemic cardiomyopathy EF 15-20% status post AICD, coronary artery disease status post PCI, cirrhotic state apnea, COPD, atrial fibrillation on Eliquis presented to [facility] due to symptoms of generalized weakness low blood pressures and shortness of breath and being admitted to intermediate care unit. Acute on chronic congestive heart failure with reduced EF/cardiomyopathy Appears volume overloaded with bilateral wheeze Case discussed with Cardiology they recommend IV Lasix 80 mg now, will follow clinical status and echo and adjust dose of Lasix Hold home dose of torsemide 40 mg Follow echo Not on spironolactone/Matt/Arb due to hyperkalemia Follow I's and O's/daily weight follow i/os,BMP/BNP and magnesium Infected ICD lead status post ICD extraction on November 02 Status post right-sided dual chamber ICD implantation on 11/08 Continue IV ceftriaxone 2 g every 24 hours last dose November 18/PICC line to left upper extremity placed on 11/08. Osteomyelitis left foot status post partial 1st ray resection and 5th metatarsal wound debridement done on 11/04 for acute osteomyelitis of left 4th metatarsal Wound culture positive for Staphylococcus Keppra Nonweightbearing on left foot Wound dressing/Ultram for pain control cont ultram Obtain PT eval once clinically stable Wound nurse consult obtained patient was receiving daily dressings by [facility] History of obstructive sleep apnea on CPAP Acute pericarditis continue colchicine Bedside echo in ED showed mild to moderate pericardial effusion, low voltage EKG CTA showed moderate pericardial effusion , follow repeat echocardiogram Being followed by Cardiology History of coronary artery disease-status post PCI Continue aspirin/Lipitor/metoprolol History of COPD mild acute exacerbation continue scheduled DuoNeb inhalers,iv steroids. Diabetes mellitus type 2 on (Lantus 25 units bid at home,) on Lantus 18 units b.i.d. and insulin sliding scale. Paroxysmal atrial fibrillation, was recommended to hold Eliquis for 2 weeks probably due to pericardial effusion, discharged on November 14,will resume on 11/28, continue beta-blockers EKG showed atrial paced rhythm, low-voltage QRS Mood disorder resume sertraline Full code DVT prophylaxis Lovenox In my clinical judgment patient need continued inpatient hospitalization for close monitoring of shortness of breath, hypotension and moderate pericardial effusion requiring further testing and expert consultation that can not be provided in less acute setting. Quality Stroke Does the patient have a stroke diagnosis?: No VTE Prior VTE?: No VTE Risk Level:: Medical - moderate - high VTE Device Contraindication: Treatment Not Indicated VTE Drug Contraindication: N/A - Med Ordered
[2023-11-19 16:42] LABS: Glucose, Whole Blood 214 mg/dL (60-115)
--- NOTE | 2023-11-19 17:20 | HO.WOUND ---
Wound Consult: Initial 58yr old?[place] [facility] [place] See progress notes and H&P for detailed history.? Wound consult placed for Left Foot incision from previous surgery at [facility] and Lateral foot wound.? Patient agreeable to assessment and photo documentation.? Left Medial Foot Plantar Incision sutures in place well approximated no drainage noted no erythema noted. Plantar area with small stable scab no intervention needed at this time. Left Lateral Foot Etiology: ?Diabetic wound ?Present on Admission Measurements: 4cm x 0.4cm x 0.2cm Wound Bed: adherent dreid scab Drainage / Odor: No odor scant drainage Edges: ? well defined [place] wound: ?pink erythema noted - No Induration, Fluctuance or Warmth noted Pain: pt reports pain Goals of Treatment: ? Keep dry and stabilize wound bed with betadine and durafiber AG with dry gauze dressing Recommendations: 1. Turn and Reposition every 2 hours and as needed for patient comfort.? Use pillows or wedges to support off loading positions. 2. Off Load all bony prominences with use of pillows and heel boots if needed.? Apply Preventative foams where needed. ? 3. Monitor for incontinence and moisture control, use barrier creams when needed for prevention and treatment. 4. Provide adequate and supplemental nutrition.? 5. Order or Continue low air loss mattress. 6. Maintain blood glucose levels per Providers order. 7. Left Foot - Cleanse with Betadine allow to dry. Cover incision with dry gauze, cover lateral wound with durafiber, cover with dry gauze abd pad and wrap. Change every other day. Re-consult wound care Nurse for wound deterioration or wound changes.
[2023-11-19] MEDS: methylPREDNISolone Sod Succ 40 MG/ML VIAL IVPUSH (17:56)
[2023-11-19] MEDS: cefTRIAXone sodium 2 GM in 0.9 % Sodium Chloride 50 ML IV (17:56)
[2023-11-19] MEDS: 0.9 % Sodium Chloride Flush 3 ML SYRINGE IVFLUSH ×2 (17:57→20:44)
[2023-11-19 20:40] LABS: Glucose, Whole Blood 224 mg/dL (60-115)
[2023-11-19] MEDS: Atorvastatin Calcium 40 MG TABLET PO (20:43)
[2023-11-20] VITALS (16 sets, daily range): BP systolic 108–144; BP diastolic 72–81; PULSE 60–112; RESP 16–20; TEMP 36.1–36.6; O2SAT 91–98
[2023-11-20] MEDS: methylPREDNISolone Sod Succ 40 MG/ML VIAL IVPUSH ×2 (03:02→15:53)
[2023-11-20] MEDS: Omeprazole 20 MG CAPSULE.DR PO (06:14)
[2023-11-20] MEDS: Albuterol/Iprat 2.5/0.5MG 3 ML AMPUL.NEB INHALE ×4 (06:22→19:27)
[2023-11-20] MEDS: LORazepam 0.5 MG TABLET PO (06:30)
[2023-11-20] MEDS: Morphine Sulfate 4 MG/ML CARTRIDGE 3 MG IVPUSH ×4 (06:33→20:38)
[2023-11-20 06:35] LABS: Hemoglobin 10.6 g/dl (14.0-18.0); Mean Corpuscular HGB Conc 31.2 g/dl (31.0-36.0); Mean Corpuscular Hemoglobin 28.6 pg (27.0-33.0); Mean Corpuscular Volume 91.6 fL (80.0-98.0); Platelet Count 654 X10*3/uL (160-400); Red Blood Count 3.71 X10*6/uL (4.60-5.80); White Blood Count 11.3 X10*3/uL (4.8-10.8)
[2023-11-20 06:55] LABS: Blood Urea Nitrogen 29 mg/dL (9-16); Calcium 9.1 mg/dL (8.4-10.2); Creatinine Clr Calc Pharmacy 109.3; Estimated Glomerular Filt Rate > 60; Glucose Random 306 mg/dL (60-115)
[2023-11-20 06:57] LABS: B Type Natriuretic Peptide 1446 pg/mL (<100)
[2023-11-20 07:10] LABS: Anion Gap 15 (12-20); Carbon Dioxide 28 mmol/L (22-29); Chloride 99 mmol/L (96-108); Potassium 4.6 mmol/L (3.3-5.1); Sodium 137 mmol/L (135-145)
[2023-11-20 08:18] LABS: Glucose, Whole Blood 300 mg/dL (60-115)
[2023-11-20] MEDS: Gabapentin 300 MG CAPSULE PO ×3 (08:22→20:38)
[2023-11-20] MEDS: Aspirin Enteric Coated 81 MG TABLET.DR PO (08:22)
[2023-11-20] MEDS: Potassium Chloride ER 20 MEQ TAB.ER.PRT 40 MEQ PO (08:22)
[2023-11-20] MEDS: Metoprolol Succinate ER 25 MG TAB.ER.24H PO (08:22)
[2023-11-20] MEDS: Sertraline HCL 25 MG TABLET PO (08:23)
[2023-11-20] MEDS: Insulin Lispro 100 UNIT/ML 3 ML VIAL SUBCUT ×4 (08:23→21:50)
[2023-11-20] MEDS: Amiodarone HCL 200 MG TABLET PO (08:23)
[2023-11-20] MEDS: 0.9 % Sodium Chloride Flush 3 ML SYRINGE IVFLUSH ×3 (08:25→20:44)
[2023-11-20 08:37] LABS: C Reactive Protein 2.87 mg/dL (< or = 0.50); Magnesium 2.2 mg/dL (1.6-2.6)
[2023-11-20] MEDS: Colchicine 0.6 MG TABLET 0.3 MG PO (10:15)
[2023-11-20] MEDS: Insulin Glargine,Hum.rec.anlog 100 UNIT/ML 10 ML VIAL 20 UNIT SUBCUT ×2 (10:15→21:52)
--- NOTE | 2023-11-20 11:25 | P.PNCA_ITS ---
Subjective Subjective Date of Service: 11/20/23 Interval history: Seen and examined at bedside. On CPAP. Saying her breathing is better with CPAP. Physical Exam Vital Signs: Last Vital Signs Temp 97.4 F 11/20/23 11:01 Pulse 96 11/20/23 11:01 Resp 16 11/20/23 11:01 BP 138/81 11/20/23 11:01 Pulse Ox 92 11/20/23 11:01 O2 Del Method Nasal Cannula 11/20/23 11:01 O2 Flow Rate 2 11/20/23 11:01 Oxygen Flow Rate 2 11/18/23 12:52 BMI result Body Mass Index 29.5 GENERAL APPEARANCE: Short of breath, wheezing. NECK: no carotid bruit, + jugular venous distention. SKIN: Left chest wall collection/seroma. HEART: no murmurs, regular rate and rhythm. LUNGS: Bilateral wheezes. Crackles at bases. ABDOMEN: soft, nontender. EXTREMITIES: no edema. PERIPHERAL PULSES: equal. NEUROLOGIC: No gross deficits, AAO X 3 Objective Labs and Meds 11/20/23 06:14 11/20/23 06:14 Lab results: Laboratory Results - last 24 hr 11/19/23 11/19/23 11/19/23 11:19 11:31 16:38 WBC 8.6 RBC 3.50 L Hgb 10.0 L Hct 31.6 L MCV 90.3 MCH 28.6 MCHC 31.6 RDW 17.0 H Plt Count 570 H MPV 9.3 L Absolute Nucleated RBC 0.000 Nucleated RBC % (auto) 0.0 Sodium 138 Potassium 3.6 Chloride 101 Carbon Dioxide 31 H Anion Gap 10 L BUN 23 H Creatinine 0.91 Estim Creat Clear Calc 102.1 Estimated GFR > 60 POC Glucose 276 H 214 H Random Glucose 291 H Calcium 8.5 Magnesium C-Reactive Protein B-Natriuretic Peptide 11/19/23 11/20/23 11/20/23 20:32 06:14 08:15 WBC 11.3 H RBC 3.71 L Hgb 10.6 L Hct 34.0 L MCV 91.6 MCH 28.6 MCHC 31.2 RDW 17.0 H Plt Count 654 H MPV 9.0 L Absolute Nucleated RBC 0.000 Nucleated RBC % (auto) 0.0 Sodium 137 Potassium 4.6 D Chloride 99 Carbon Dioxide 28 Anion Gap 15 BUN 29 H Creatinine 0.85 Estim Creat Clear Calc 109.3 Estimated GFR > 60 POC Glucose 224 H 300 H Random Glucose 306 H Calcium 9.1 D Magnesium 2.2 C-Reactive Protein 2.87 H B-Natriuretic Peptide 1446 H Progress Note: A&P Assessment and plan (1) Pericardial effusion: Status: Acute (2) COPD exacerbation: Status: Acute (3) Congestive heart failure: Status: Acute Plan 58-year-old gentleman who is presenting for shortness of breath. Clinically appear to be in heart failure and was started on diuretics but appears to have poor response. Will start him on Lasix drip and given metolazone 5 mg p.o.. He also has COPD. He is being treated for that too. He has a moderate to large- sized pericardial effusion with developed over the last week after his infected ICD was removed and new device was implanted. He had some chest pain and pericarditis and was started on colchicine. I had a discussion with Dr. Elizabeth who was involved in his care there. Apparently the pericardial effusion was small in size a week ago while he was there. Clearly the pericardial effusion has grown. By echocardiography does not appear to be hemorrhagic. Doubt that there is any perforation and probably this is related to pericarditis. He will need pericardial drain but currently he is not doing well from a respiratory point of view. He clinically is not in tamponade. We will follow along with you. Continue the Lasix drip. Thank you for allowing me to participate in the care of your patient. Please feel free to contact me if you have any questions. Time Spent With Patient Time: Total time managing care of this patient today ____ minutes. Progress Note: Quality Stroke Does the patient have a stroke diagnosis?: No Procedures Date of Service Date of Service: 11/20/23
[2023-11-20 11:46] LABS: Glucose, Whole Blood 260 mg/dL (60-115)
--- NOTE | 2023-11-20 11:58 | HO.PM.IMPN ---
Subjective Subjective Date of Service: 11/20/23 Interval History: short of breath and wheezing no chest pain c/o swelling at L chest ICD site Review of Systems Review of Systems: Yes all other systems are reviewed and are negative Physical Exam Vital Signs: Vital Signs: Last Vital Signs Temp 97.4 F 11/20/23 11:01 Pulse 93 11/20/23 11:29 Resp 16 11/20/23 11:29 BP 138/81 11/20/23 11:01 Pulse Ox 92 11/20/23 11:01 O2 Del Method Nasal Cannula 11/20/23 11:01 O2 Flow Rate 2 11/20/23 11:01 Oxygen Flow Rate 2 11/18/23 12:52 BMI result Body Mass Index 29.5 Gen: short of breath HEENT: sclera anicteric, moist mucus membranes Neck: supple Lungs: coarse inspiratory crackles and extensive expiratory wheezing Heart: regular rate and rhythm, no murmurs Abd: soft, non-tender, non-distended Ext: no edema Skin: warm/well-perfused, fluctuant collection at site of L ICD explantation Neuro: alert and oriented x3, no focal findings Psych: appropriate affect Objective Data Active Medications Acetaminophen (Acetaminophen 325 Mg Tablet) 650 mg PO Q6H PRN PRN Reason: Pain, Mild (Pain Scale 1-3) Albuterol Sulfate (Albuterol Sulfate 90 Mcg 8 Gm Inhaler) 2 puff INHALE Q6H PRN PRN Reason: wheezing Albuterol/Ipratropium (Albuterol/Iprat 2.5/0.5mg 3 Ml Ampul.Neb) 3 ml INHALE RQ4H WHILE AWAKE [facility] Last Admin: 11/20/23 11:26 Dose: 3 ml Documented By: JOSHUA Amiodarone HCl (Amiodarone Hcl 200 Mg Tablet) 200 mg PO DAILY [facility] Last Admin: 11/20/23 08:23 Dose: 200 mg Documented By: USMAN Aspirin (Aspirin Enteric Coated 81 Mg Tablet.) 81 mg PO DAILY [facility] Last Admin: 11/20/23 08:22 Dose: 81 mg Documented By: USMAN Atorvastatin Calcium (Atorvastatin Calcium 40 Mg Tablet) 40 mg PO BEDTIME [facility] Last Admin: 11/19/23 20:43 Dose: 40 mg Documented By: INDIO Colchicine (Colchicine 0.6 Mg Tablet) 0.3 mg PO DAILY [facility] Last Admin: 11/20/23 10:15 Dose: 0.3 mg Documented By: USMAN Gabapentin (Gabapentin 300 Mg Capsule) 300 mg PO TID [facility] Last Admin: 11/20/23 08:22 Dose: 300 mg Documented By: USMAN Glucose (Glucose Gel 15 Gm Gel..Gram.) 15 gm PO Q15M PRN; Protocol PRN Reason: per Hypoglycemia Standing Ord. Dextrose (D10) 250 mls @ 750 mls/hr IV Q15M PRN; Protocol PRN Reason: per Hypoglycemia Standing Ord. Furosemide 200 mg/ Sodium (Chloride) 100 mls @ 5 mls/hr IVCONT .Q20H [facility] Insulin Glargine (Insulin Glargine,Hum.Rec.Anlog 100 Unit/Ml 10 Ml Vial) 20 unit SUBCUT BID [facility] Last Admin: 11/20/23 10:15 Dose: 20 unit Documented By: USMAN Insulin Human Lispro (Insulin Lispro 100 Unit/Ml 3 Ml Vial) 0 unit SUBCUT QIDACHS [facility]; Protocol Last Admin: 11/20/23 08:23 Dose: 8 unit Documented By: USMAN Levalbuterol HCl (Levalbuterol Hcl 1.25 Mg/3 Ml Vial.Neb) 1.25 mg INHALE Q4H PRN PRN Reason: sob Last Admin: 11/19/23 10:03 Dose: 1.25 mg Documented By: JUNIOR Melatonin (Melatonin 3 Mg Tablet) 3 mg PO BEDTIME PRN PRN Reason: Insomnia Last Admin: 11/19/23 02:06 Dose: 3 mg Documented By: CLYDE Methylprednisolone Sodium Succinate (Methylprednisolone Sod Succ 40 Mg/Ml Vial) 40 mg IVPUSH Q12H [facility] Last Admin: 11/20/23 03:02 Dose: 40 mg Documented By: INDIO Metoprolol Succinate (Metoprolol Succinate Er 25 Mg Tab.Er.24h) 25 mg PO BID [facility]; Protocol Last Admin: 11/20/23 08:22 Dose: 25 mg Documented By: USMAN Morphine Sulfate (Morphine Sulfate 4 Mg/Ml Cartridge) 3 mg IVPUSH Q4H PRN; Protocol PRN Reason: Pain, Severe (Pain Scale 7-10) Last Admin: 11/20/23 10:50 Dose: 3 mg Documented By: USMAN Omeprazole (Omeprazole 20 Mg Capsule.) 20 mg PO DAILY@0630 [facility] Last Admin: 11/20/23 06:14 Dose: 20 mg Documented By: INDIO Ondansetron HCl (Ondansetron Hcl 4 Mg/2 Ml Vial) 4 mg IVPUSH Q8H PRN PRN Reason: Nausea and Vomiting Potassium Chloride (Potassium Chloride Er 20 Meq Tab.Er.Prt) 40 meq PO DAILY [facility] Last Admin: 11/20/23 08:22 Dose: 40 meq Documented By: USMAN Sertraline HCl (Sertraline Hcl 25 Mg Tablet) 25 mg PO DAILY [facility] Last Admin: 11/20/23 08:23 Dose: 25 mg Documented By: USMAN Sodium Chloride (0.9 % Sodium Chloride Flush 3 Ml Syringe) 3 ml IVFLUSH QSHIFT [facility] Last Admin: 11/20/23 08:25 Dose: 3 ml Documented By: USMAN Tramadol HCl (Tramadol Hcl 50 Mg Tablet) 50 mg PO Q6H PRN PRN Reason: Pain, Moderate(Pain Scale 4-6) Labs 11/20/23 06:14 11/20/23 06:14 Labs: Laboratory Results - last 24 hr 11/19/23 11/19/23 11/19/23 11:19 16:38 20:32 MCV 90.3 MCH 28.6 MCHC 31.6 RDW 17.0 H Plt Count 570 H MPV 9.3 L Absolute Nucleated RBC 0.000 Nucleated RBC % (auto) 0.0 Anion Gap 10 L Estim Creat Clear Calc 102.1 Estimated GFR > 60 POC Glucose 214 H 224 H Random Glucose 291 H Calcium 8.5 Magnesium C-Reactive Protein B-Natriuretic Peptide 11/20/23 11/20/23 11/20/23 06:14 08:15 11:12 MCV 91.6 MCH 28.6 MCHC 31.2 RDW 17.0 H Plt Count 654 H MPV 9.0 L Absolute Nucleated RBC 0.000 Nucleated RBC % (auto) 0.0 Anion Gap 15 Estim Creat Clear Calc 109.3 Estimated GFR > 60 POC Glucose 300 H 260 H Random Glucose 306 H Calcium 9.1 D Magnesium 2.2 C-Reactive Protein 2.87 H B-Natriuretic Peptide 1446 H Assessment and Plan (1) Pericardial effusion: Status: Acute (2) COPD exacerbation: Status: Acute Plan d3 58yo M with ischemic CM, HFrEF 15-20% with AICD in place, CAD s/p PCI, KIMANI on CPAP, COPD, AF on apixaban recent admission to [facility] for AICD infection + osteomyelitis + bacteremia sent in with hypotension, weakness, and dyspnea acute-chronic HFrEF ischemic CM - change to IV furosemide infusion and give 1 dose metolazone, monitor BMP/Mg/BNP, I/O + wts, Cardiology following - continue metoprolol succinate, not on KIM/ARB or spironolactone due to hyperK infected AICD lead s/p explantation 11/03/23 and replacement on R side 11/08/22 - completed IV ceftriaxone 2g daily 11/18 via PICC line placed 11/08 - Thoracic Surgery consult re: seroma at AICD lead site acute pericarditis - effusion is larger than it was at [place] but no tamponade physiology - continue colchicine - Cardiology following; may need pericardial drain if fails to improve; hold apixaban COPD exacerbation - continue IV steroids, standing/prn nebs osteomyelitis L 4th metatarsal - s/p partial 1st ray resection + 5th metatarsal wound debridement 11/04 - NWB on L foot - wound consult: Cleanse with Betadine allow to dry. Cover incision with dry gauze, cover lateral wound with durafiber, cover with dry gauze abd pad and wrap. Change every other day. paroxysmal AF - continue to hold apixaban [plan per [place] was to hold until 11/28] due to pericardial effusion; continue metoprolol succinate + amiodarone KIMANI - continue CPAP hx CAD - continue atorvastatin + metoprolol succinate; hold ASA in case pericardial drainage needed DM2 with hyperglycemia - increase basal-bolus insulin mood disorder - continue sertraline VTE ppx - SCDs dispo - TBD In my clinical judgment, the patient requires continued inpatient hospitalization for the following reasons: COPD exac, pericardial effusion, ADHF Total time managing care of this patient today: 50 minutes. Quality Stroke Does the patient have a stroke diagnosis?: No VTE Prior VTE?: No VTE Risk Level:: Medical - moderate - high VTE Device Contraindication: Treatment Not Indicated VTE Drug Contraindication: N/A - Med Ordered
[2023-11-20] MEDS: Furosemide 200 MG in 0.9 % Sodium Chloride 80 ML IVCONT (12:45)
[2023-11-20] MEDS: metOLazone 5 MG TABLET PO (13:53)
[2023-11-20 14:25] LABS: Procalcitonin 0.05 ng/mL
--- NOTE | 2023-11-20 15:42 | HO.THORCON_ITS ---
History of Present Illness Consult details Consult date: 11/20/23 Narrative: Patient presents with a plethora of medical issues and complaints. Patient has a proximally 2 weeks status post ICD removal on the left chest and placement of a new 1 on the contralateral right chest. He has a left sided incisional seroma wound for which thoracic surgery was consulted. It is minimally symptomatic to the patient at present. Chart was reviewed and patient evaluated [facility] Past Medical History Medical History Diverticulosis Tubular adenoma of colon (~2018) History of COVID-19 Nicotine dependence, cigarettes, uncomplicated Hypertensive retinopathy Microhematuria ICD (implantable cardioverter-defibrillator) in place Tendinitis of left rotator cuff COPD (chronic obstructive pulmonary disease) KIMANI (obstructive sleep apnea) Type 2 diabetes mellitus without complications Sleep apnea CAD (coronary artery disease) Paroxysmal atrial fibrillation (~2017) Cardiomyopathy Family History Family History Father Atherosclerosis Mother Cerebral aneurysm Maternal Grandmother Unknown family medical history Mother Cerebral hemorrhage Father Coronary artery disease Surgical History Surgical History History of cardiac cath History of ankle surgery History of implantable cardiac defibrillator (ICD) History of colonoscopy History of heart artery stent History of cardiac radiofrequency ablation History of cardioversion History of esophagogastroduodenoscopy History of umbilical hernia History of inguinal hernia Social History Social History Household Members: None Housing: House Are you a primary nurse care manager to a significant other at home: No Do you presently have visiting nurse or other home services: Yes Alcohol intake: former Patient Tobacco Use Status: Current everyday Tobacco user Tobacco use type: Cigarette Cigarette Packs Per Day: 1 Years Smoked: (current smoker - onset 14yo, 1ppd x 43yrs, 40pyh) Smoked in Last 30 Days: Yes e-Cigarette/Vaping Use: Former Use Second Hand Smoke Exposure: Yes Use of substances other than those prescribed or required for medical reasons: No Currently Displaying Signs/Symptoms of Drug Intoxication Withdrawal: No Have you been hit, kicked, punched, or otherwise hurt by someone within the past year? If so, by whom?: No Do you feel safe in your current relationship?: Yes Is there a partner from a previous relationship who is making you feel unsafe now?: No Are you made to feel afraid or neglected: No Advance Directives: Yes Advance Directives on File: Yes Advance Directives Date on File: 07/09/21 Do you have a plan to hurt others: No Plan Recently lost weight without trying: No Nutrition Risks: No Nutritional Risk service: No Current occupational status: unemployed and disabled Current occupation: rt handed Cognitive needs: No Hearing needs: No Vision needs: No Meds Allergies Allergy/AdvReac Type Severity Reaction Status Date / Time No Known Allergies Allergy Verified 11/18/23 12:59 [No Known Allergies*] Active Medications: Current Medications Acetaminophen (Acetaminophen 325 Mg Tablet) 650 mg PO Q6H PRN PRN Reason: Pain, Mild (Pain Scale 1-3) Albuterol Sulfate (Albuterol Sulfate 90 Mcg 8 Gm Inhaler) 2 puff INHALE Q6H PRN PRN Reason: wheezing Albuterol/Ipratropium (Albuterol/Iprat 2.5/0.5mg 3 Ml Ampul.Neb) 3 ml INHALE RQ4H WHILE AWAKE [facility] Last Admin: 11/20/23 15:17 Dose: 3 ml Amiodarone HCl (Amiodarone Hcl 200 Mg Tablet) 200 mg PO DAILY [facility] Last Admin: 11/20/23 08:23 Dose: 200 mg Aspirin (Aspirin Enteric Coated 81 Mg Tablet.Dr) 81 mg PO DAILY [facility] Last Admin: 11/20/23 08:22 Dose: 81 mg Atorvastatin Calcium (Atorvastatin Calcium 40 Mg Tablet) 40 mg PO BEDTIME [facility] Last Admin: 11/19/23 20:43 Dose: 40 mg Colchicine (Colchicine 0.6 Mg Tablet) 0.3 mg PO DAILY [facility] Last Admin: 11/20/23 10:15 Dose: 0.3 mg Doxycycline Monohydrate (Doxycycline Monohydrate 100 Mg Capsule) 100 mg PO Q12H [facility] Gabapentin (Gabapentin 300 Mg Capsule) 300 mg PO TID [facility] Last Admin: 11/20/23 08:22 Dose: 300 mg Glucose (Glucose Gel 15 Gm Gel..Gram.) 15 gm PO Q15M PRN; Protocol PRN Reason: per Hypoglycemia Standing Ord. Dextrose (D10) 250 mls @ 750 mls/hr IV Q15M PRN; Protocol PRN Reason: per Hypoglycemia Standing Ord. Furosemide 200 mg/ Sodium (Chloride) 100 mls @ 5 mls/hr IVCONT .Q20H [facility] Last Admin: 11/20/23 12:45 Dose: 10 mg/hr, 5 mls/hr Insulin Glargine (Insulin Glargine,Hum.Rec.Anlog 100 Unit/Ml 10 Ml Vial) 20 unit SUBCUT BID [facility] Last Admin: 11/20/23 10:15 Dose: 20 unit Insulin Human Lispro (Insulin Lispro 100 Unit/Ml 3 Ml Vial) 0 unit SUBCUT QIDACHS [facility]; Protocol Last Admin: 11/20/23 12:47 Dose: 6 unit Levalbuterol HCl (Levalbuterol Hcl 1.25 Mg/3 Ml Vial.Neb) 1.25 mg INHALE Q4H PRN PRN Reason: sob Last Admin: 11/19/23 10:03 Dose: 1.25 mg Melatonin (Melatonin 3 Mg Tablet) 3 mg PO BEDTIME PRN PRN Reason: Insomnia Last Admin: 11/19/23 02:06 Dose: 3 mg Methylprednisolone Sodium Succinate (Methylprednisolone Sod Succ 40 Mg/Ml Vial) 40 mg IVPUSH Q12H [facility] Last Admin: 11/20/23 03:02 Dose: 40 mg Metoprolol Succinate (Metoprolol Succinate Er 12.5 Mg Halftab.Er.24h) 37.5 mg PO BID [facility]; Protocol Morphine Sulfate (Morphine Sulfate 4 Mg/Ml Cartridge) 3 mg IVPUSH Q4H PRN; Protocol PRN Reason: Pain, Severe (Pain Scale 7-10) Last Admin: 11/20/23 10:50 Dose: 3 mg Omeprazole (Omeprazole 20 Mg Capsule.Dr) 20 mg PO DAILY@0630 [facility] Last Admin: 11/20/23 06:14 Dose: 20 mg Ondansetron HCl (Ondansetron Hcl 4 Mg/2 Ml Vial) 4 mg IVPUSH Q8H PRN PRN Reason: Nausea and Vomiting Potassium Chloride (Potassium Chloride Er 20 Meq Tab.Er.Prt) 40 meq PO DAILY [facility] Last Admin: 11/20/23 08:22 Dose: 40 meq Sertraline HCl (Sertraline Hcl 25 Mg Tablet) 25 mg PO DAILY [facility] Last Admin: 11/20/23 08:23 Dose: 25 mg Sodium Chloride (0.9 % Sodium Chloride Flush 3 Ml Syringe) 3 ml IVFLUSH QSHIFT [facility] Last Admin: 11/20/23 08:25 Dose: 3 ml Tramadol HCl (Tramadol Hcl 50 Mg Tablet) 50 mg PO Q6H PRN PRN Reason: Pain, Moderate(Pain Scale 4-6) Home Medications ?Medication ?Instructions ?Recorded ?Confirmed ?Last Taken ?Type aspirin 81 mg tablet,delayed 81 mg PO DAILY 07/16/22 11/18/23 11/16/23 History release (Adult Low Dose Aspirin) acetaminophen 325 mg tablet 650 mg PO Q6H PRN Pain, Moderate 11/18/23 11/18/23 Unknown History amiodarone 200 mg tablet 200 mg PO DAILY 11/18/23 11/18/23 11/16/23 History colchicine 0.6 mg tablet 0.3 mg PO DAILY 11/18/23 11/18/23 11/16/23 History insulin glargine 100 unit/mL (3 25 unit subcut BID 11/18/23 11/18/23 11/16/23 History mL) subcutaneous pen (Lantus Solostar U-100 Insulin) insulin lispro 100 unit/mL 7 unit subcut TIDWM 11/18/23 11/18/23 11/16/23 History subcutaneous solution ipratropium 0.5 mg-albuterol 3 mg 3 ml inhalation Q6H PRN Wheezing 11/18/23 11/18/23 Unknown History (2.5 mg base)/3 mL nebulization soln melatonin 3 mg tablet 3 mg PO BEDTIME insomnia 11/18/23 11/18/23 11/16/23 History metoprolol succinate 25 mg 37.5 mg PO BID 11/18/23 11/18/23 11/16/23 History tablet,extended release 24 hr torsemide 20 mg tablet 40 mg PO DAILY 11/18/23 11/18/23 11/16/23 History tramadol 50 mg tablet 50 mg PO Q6H PRN Pain, Moderate 11/18/23 11/18/23 Unknown History Physical Exam 2 Vital Signs: Vital Signs: Last Vital Signs Temp 97.4 F 11/20/23 11:01 Pulse 87 11/20/23 15:18 Resp 20 11/20/23 15:18 BP 126/73 11/20/23 12:45 Pulse Ox 92 11/20/23 11:01 O2 Del Method Nasal Cannula 11/20/23 11:01 O2 Flow Rate 2 11/20/23 11:01 Oxygen Flow Rate 2 11/18/23 12:52 BMI result Body Mass Index 29.5 Chest: Other: Patient has a left upper chest incision with a modest least size seroma. No evidence of any cellulitis or infection or purulence. Patient has a contralateral right chest incision forearm new ICD procedure placement. Results Labs 11/20/23 06:14 11/20/23 06:14 Labs: Abnormal lab results 11/19/23 11/19/23 11/20/23 Range/Units 16:38 20:32 06:14 WBC 11.3 H (4.8-10.8) X10*3/uL RBC 3.71 L (4.60-5.80) X10*6/uL Hgb 10.6 L (14.0-18.0) g/dl Hct 34.0 L (42.0-52.0) % RDW 17.0 H (11.0-16.0) % Plt Count 654 H (160-400) X10*3/uL MPV 9.0 L (9.4-12.4) fL BUN 29 H (9-16) mg/dL POC Glucose 214 H 224 H (60-115) mg/dL Random Glucose 306 H (60-115) mg/dL C-Reactive Protein 2.87 H (< or = 0.50) mg/dL B-Natriuretic Peptide 1446 H (<100) pg/mL 11/20/23 11/20/23 Range/Units 08:15 11:12 WBC (4.8-10.8) X10*3/uL RBC (4.60-5.80) X10*6/uL Hgb (14.0-18.0) g/dl Hct (42.0-52.0) % RDW (11.0-16.0) % Plt Count (160-400) X10*3/uL MPV (9.4-12.4) fL BUN (9-16) mg/dL POC Glucose 300 H 260 H (60-115) mg/dL Random Glucose (60-115) mg/dL C-Reactive Protein (< or = 0.50) mg/dL B-Natriuretic Peptide (<100) pg/mL Short CBC 11/20/23 Range/Units 06:14 WBC 11.3 H (4.8-10.8) X10*3/uL Hgb 10.6 L (14.0-18.0) g/dl Hct 34.0 L (42.0-52.0) % Plt Count 654 H (160-400) X10*3/uL BMP 11/20/23 06:14 Sodium 137 Potassium 4.6 D Chloride 99 Carbon Dioxide 28 BUN 29 H Creatinine 0.85 Calcium 9.1 D Urine 11/18/23 Range/Units 18:14 Urine Color Yellow Urine Appearance Clear Urine pH 7.0 (5.0-9.0) Ur Specific [place] 1.015 (1.005-1.025) Urine Protein Negative (Neg-Trace) mg/dL Urine Glucose (UA) Negative (Negative) mg/dL All other labs normal. Assessment and Plan (1) Seroma due to trauma: Status: Acute Plan Current plan is continue conservative therapy for the seroma. Should it become symptomatic, this can be aspirated. The meantime, there is no evidence of any infection to warrant any further interventions at this time. Symptomatic relief with analgesics and warm compresses should they be required. Patient can follow-up in my office as an outpatient for wound evaluation. Procedures Date of Service Date of Service: 11/20/23
[2023-11-20] MEDS: Doxycycline Monohydrate 100 MG CAPSULE PO (15:53)
[2023-11-20 16:31] LABS: Glucose, Whole Blood 280 mg/dL (60-115)
[2023-11-20] MEDS: Metoprolol Succinate ER 12.5 MG HALFTAB.ER.24H 37.5 MG PO (20:37)
[2023-11-20] MEDS: Atorvastatin Calcium 40 MG TABLET PO (20:38)
[2023-11-20 21:09] LABS: Glucose, Whole Blood 319 mg/dL (60-115)
[2023-11-20] MEDS: traMADoL HCL 50 MG TABLET PO (21:56)
[2023-11-20] MEDS: levalbuterol HCL 1.25 MG/3 ML VIAL.NEB INHALE (23:34)
[2023-11-21] VITALS (7 sets, daily range): BP systolic 113–162; BP diastolic 66–81; PULSE 78–112; RESP 20–28; TEMP 36.3–36.6; O2SAT 91–98
[2023-11-21] MEDS: Melatonin 3 MG TABLET PO (00:13)
[2023-11-21] MEDS: methylPREDNISolone Sod Succ 40 MG/ML VIAL IVPUSH (00:14)
[2023-11-21] MEDS: Albuterol/Iprat 2.5/0.5MG 3 ML AMPUL.NEB INHALE ×2 (03:54→11:31)
[2023-11-21] MEDS: Morphine Sulfate 4 MG/ML CARTRIDGE 3 MG IVPUSH ×3 (03:55→13:35)
[2023-11-21] MEDS: Doxycycline Monohydrate 100 MG CAPSULE PO ×2 (03:55→13:35)
[2023-11-21] MEDS: Furosemide 200 MG in 0.9 % Sodium Chloride 80 ML IVCONT (06:52)
[2023-11-21] MEDS: Omeprazole 20 MG CAPSULE.DR PO (07:00)
[2023-11-21] MEDS: traMADoL HCL 50 MG TABLET PO (07:00)
[2023-11-21 07:21] LABS: Glucose, Whole Blood 336 mg/dL (60-115)
[2023-11-21] MEDS: Insulin Lispro 100 UNIT/ML 3 ML VIAL SUBCUT ×2 (08:17→12:49)
[2023-11-21] MEDS: Metoprolol Succinate ER 12.5 MG HALFTAB.ER.24H 37.5 MG PO (08:17)
[2023-11-21] MEDS: Amiodarone HCL 200 MG TABLET PO (08:17)
[2023-11-21] MEDS: Insulin Glargine,Hum.rec.anlog 100 UNIT/ML 10 ML VIAL 25 UNIT SUBCUT (08:17)
[2023-11-21] MEDS: Potassium Chloride ER 20 MEQ TAB.ER.PRT 40 MEQ PO (08:18)
[2023-11-21] MEDS: Colchicine 0.6 MG TABLET 0.3 MG PO (08:19)
[2023-11-21] MEDS: Sertraline HCL 25 MG TABLET PO (08:19)
[2023-11-21] MEDS: Gabapentin 300 MG CAPSULE PO (08:19)
[2023-11-21 08:33] LABS: Hematocrit 36.6 % (42.0-52.0); Hemoglobin 11.3 g/dl (14.0-18.0); Mean Corpuscular HGB Conc 30.9 g/dl (31.0-36.0); Mean Corpuscular Hemoglobin 27.7 pg (27.0-33.0); Mean Corpuscular Volume 89.7 fL (80.0-98.0); Mean Platelet Volume 9.3 fL (9.4-12.4); Platelet Count 728 X10*3/uL (160-400); Red Blood Count 4.08 X10*6/uL (4.60-5.80); Red Cell Distribution Width 16.8 % (11.0-16.0); White Blood Count 16.8 X10*3/uL (4.8-10.8)
[2023-11-21] MEDS: 0.9 % Sodium Chloride Flush 3 ML SYRINGE IVFLUSH (08:35)
[2023-11-21] MEDS: levalbuterol HCL 1.25 MG/3 ML VIAL.NEB INHALE (08:37)
[2023-11-21 08:51] LABS: Anion Gap 13 (12-20); Blood Urea Nitrogen 37 mg/dL (9-16); Calcium 9.6 mg/dL (8.4-10.2); Carbon Dioxide 32 mmol/L (22-29); Chloride 94 mmol/L (96-108); Creatinine Clr Calc Pharmacy 96.7; Estimated Glomerular Filt Rate > 60; Magnesium 2.2 mg/dL (1.6-2.6); Potassium 4.5 mmol/L (3.3-5.1); Sodium 134 mmol/L (135-145)
[2023-11-21 08:52] LABS: B Type Natriuretic Peptide 1375 pg/mL (<100)
[2023-11-21 08:54] LABS: Glucose Random 376 mg/dL (60-115)
[2023-11-21 09:28] LABS: Erythrocyte Sedimentation Rate 81 MM/HR (0-15)
[2023-11-21] MEDS: metOLazone 2.5 MG TABLET 5 MG PO (10:24)
[2023-11-21] MEDS: methylPREDNISolone Sod Succ 40 MG/ML VIAL 60 MG IVPUSH (10:26)
--- NOTE | 2023-11-21 11:50 | P.PNCA_ITS ---
Subjective Subjective Date of Service: 11/21/23 Interval history: Seen examined at bedside. He has been on BiPAP. Saying that breathing is okay with BiPAP but overall no significant improvement. He is -2500. Less wheezing on examination. Physical Exam Vital Signs: Last Vital Signs Temp 97.8 F 11/21/23 08:00 Pulse 78 11/21/23 11:33 Resp 28 H 11/21/23 11:33 BP 119/78 11/21/23 08:00 Pulse Ox 91 L 11/21/23 08:00 O2 Del Method CPAP 11/21/23 08:00 O2 Flow Rate 2 11/20/23 11:01 Oxygen Flow Rate 2 11/18/23 12:52 BMI result Body Mass Index 29.5 GENERAL APPEARANCE: Short of breath, on BiPAP. Tachypneic. NECK: no carotid bruit, + jugular venous distention. SKIN: Left chest wall collection/seroma. HEART: no murmurs, regular rate and rhythm. LUNGS: Mild bilateral expiratory wheezes. ABDOMEN: soft, nontender. EXTREMITIES: no edema. PERIPHERAL PULSES: equal. NEUROLOGIC: No gross deficits, AAO X 3 Objective Labs and Meds 11/21/23 08:06 11/21/23 08:06 Lab results: Laboratory Results - last 24 hr 11/20/23 11/20/23 11/20/23 06:14 16:18 21:06 WBC RBC Hgb Hct MCV MCH MCHC RDW Plt Count MPV Absolute Nucleated RBC Nucleated RBC % (auto) ESR Sodium Potassium Chloride Carbon Dioxide Anion Gap BUN Creatinine Estim Creat Clear Calc Estimated GFR POC Glucose 280 H 319 H Random Glucose Calcium Magnesium B-Natriuretic Peptide Procalcitonin 0.05 11/21/23 11/21/23 07:14 08:06 WBC 16.8 H RBC 4.08 L Hgb 11.3 L Hct 36.6 L MCV 89.7 MCH 27.7 MCHC 30.9 L RDW 16.8 H Plt Count 728 H MPV 9.3 L Absolute Nucleated RBC 0.000 Nucleated RBC % (auto) 0.0 ESR 81 H Sodium 134 L Potassium 4.5 Chloride 94 L Carbon Dioxide 32 H Anion Gap 13 BUN 37 H Creatinine 0.96 Estim Creat Clear Calc 96.7 Estimated GFR > 60 POC Glucose 336 H Random Glucose 376 H* Calcium 9.6 Magnesium 2.2 B-Natriuretic Peptide 1375 H Procalcitonin Progress Note: A&P Assessment and plan (1) Pericardial effusion: Status: Acute (2) COPD exacerbation: Status: Acute (3) Congestive heart failure: Status: Acute Plan 58-year-old gentleman who is presenting for shortness of breath. Clinically appear to be in heart failure and was started on diuretics but appears to have poor response. He was started on Lasix drip and given metolazone and had-2500 cc but his respiratory status continues to be identical and he is quite short of breath. He is less wheezy on examination and has been getting COPD treatment. Despite improvement in examination his breathing has not changed significantly. He has [id number] pericardial effusion and although he does not hemodynamically has cardiac tamponade I am concerned that effusion is playing a role in his shortness of breath currently. I discussed in detail with Dr. Peralta who is on-call at [facility] and was implanter of his ICD. After discussion we have decided to transfer him to [facility] for further management. He will need IR guided pericardiocentesis. His Eliquis has been on hold since he left the hospital and we have not resumed it. Continue colchicine for pericarditis/pericardial effusion. I have looked at his CT scan and echo and to me does not appear to be hemorrhagic fluid around the heart. We will transfer him to [facility] as above. Thank you for allowing me to participate in the care of your patient. Please feel free to contact me if you have any questions. Time Spent With Patient Time: Total time managing care of this patient today ____ minutes. Progress Note: Quality Stroke Does the patient have a stroke diagnosis?: No Procedures Date of Service Date of Service: 11/21/23
--- NOTE | 2023-11-21 11:52 | P.DS_ITS ---
DS: Providers Provider Date of Service: 11/21/23 Date of admission: 11/18/23 18:28 Date of discharge: 11/21/23 Primary care physician: SAVANAH Harris Consults: 11/18/23 18:51 Consult to Cardiology Routine Consulting Provider: [facility] Reason for consultation: chf/pericardial effusion Has provider been notified: No 11/19/23 07:31 Consult to Wound Care Routine Reason for consultation: LEFT FOOT WOUND 11/20/23 10:23 Consult to Thoracic Surgery Routine Consulting Provider: Waylon Cates Reason for consultation: enlarging seroma at site of L ICD lead insertion;removed DS: Diagnosis Discharge Diagnosis (1) Pericardial effusion: Status: Acute (2) COPD exacerbation: Status: Acute (3) Seroma due to trauma: Status: Acute (4) Pericarditis: Status: Acute (5) Acute on chronic HFrEF (heart failure with reduced ejection fraction): Status: Acute (6) Ischemic cardiomyopathy: Status: Acute (7) Acute respiratory failure with hypoxia: Status: Acute (8) ICD (implantable cardioverter-defibrillator) in place: Status: Acute (9) Paroxysmal atrial fibrillation: Status: Acute (10) Sleep apnea: Status: Acute DS: Summary Hospital Course Hospital Course: From the history and physical by the admitting hospitalist, Mari Gómez, 11/18/23: 58-year-old gentleman with past medical history significant for ischemic cardiomyopathy EF 15-20% status post AICD, coronary artery disease status post PCI hypertension COPD, obstructive sleep apnea on CPAP, history of atrial fibrillation on Eliquis, was admitted to [facility] on 10/27 for EP evaluation due to concern for ICD vegetation with streptococcal bacteremia, patient was also found to have post influenza staph aureus pneumonia and osteomyelitis of left foot, in [facility] patient was treated for bacteremia with Staphylococcus aureus, Enterococcus faecalis and Corynebacterium species, his ICD was as extracted on 11/02, his cultures from ICD remained negative he underwent right-sided dual-chamber ICD implantation on November 08 subsequently treated with vancomycin and was transitioned to IV ceftriaxone with end date of antibiotics 11/18 , patient during the course of hospitalization was also managed for acute on chronic heart failure with reduced EF required treatment with IV Lasix drip now transitioned to by mouth torsemide, he was also diagnosed to have pleuritic chest pain and is being treated with colchicine 0.3 mg daily for suspected pericarditis, a chest CT showed small right-sided pleural effusion, his Eliquis is on hold for 2 weeks, in [place] patient also underwent left 1st ray resection for acute osteomyelitis of left 4th metatarsal, patient was discharged home on 11/14 and he was doing fine this morning visiting nurse came to evaluate him and he was noted to have low blood pressures systolic in 80s, he complained of tiredness, he received a.m. dose of IV ceftriaxone, dressing to left foot was done, repeat blood pressure improved but remained low systolic in 100s, [facility] called EMS and patient was brought in to [facility] in ED, patient complained of generalized weakness, no chest pain, no orthopnea, no PND complaining of dyspnea on exertion, no diaphoresis no chest pain with deep breathing he denies nausea, no vomiting, no hematemesis, no abdominal pain or melena he does complain of diarrhea has had 4 bowel movements in last 24 hours, he denies headache, no dizziness, he does complain of left foot pain at site of surgery, workup showed an elevated blood sugar 229, stable renal function CRP 4.4, BNP 1 286 with chronically elevated BNP, normal troponin, hematocrit 30.6 with last hematocrit 41.3 on October 19,,CTA chest showed no pulmonary emboli enlarged pulmonary artery suggesting pulmonary arterial hypertension, bilateral interstitial prominence may reflecting evolving infectious inflammatory etiology versus pulmonary edema, 3 mm nodular focus right lung apex, small left pleural effusion, moderate pericardial effusion, left chest wall pacer no longer visualized and noted to have fluid filled cavity in its placed possibly representing postoperative seroma patient has new right- sided pacer noted. In the emergency room patient treated with IV Lasix 100 mg and IV Solu Medrol, updraft treatment and now being admitted to [facility] for continued monitoring and treatment for generalized weakness, acute on chronic CHF, moderate pericardial effusion. 58yo M with ischemic CM, HFrEF 15-20% with AICD in place, CAD s/p PCI, KIMANI on CPAP, COPD, and AF on apixaban; recent admission to [facility] for AICD infection + osteomyelitis + bacteremia; sent in by his [facility] with hypotension, weakness, and dyspnea. He was admitted to the telemetry unit for multifactorial respiratory failure due to CHF, COPD, and pericardial effusion. acute hypoxic respiratory failure - Placed on CPAP at night and transitioned to BiPAP on 11/21/23 for work of breathing acute pericarditis - Effusion is larger than it was at [place]. No suggestion of hemorrhage on CT and no tamponade on TTE but concern for worsening effusion eventually leading to tamponade with unrelieved dyspnea despite treatment of CHF and COPD. Colchicine was continued; apixaban held. Our hospital admitting clerk Dr Jaspreet Montoya discussed the case with music grapher Dr Rachid Peralta at [facility], who had replaced the AICD, and Dr Peralta accepted the patient for transfer for possible pericardial drainage. acute-chronic HFrEF; ischemic CM - Diuresed with IV furosemide infusion along with PO metolazone; negative 1850 mL this admission - Continued metoprolol succinate; not on KIM/ARB or spironolactone historically due to hyperK COPD exacerbation - Treated with IV steroids, standing/prn nebs, and doxycycline. infected AICD lead s/p explantation 11/03/23 and replacement on R side 11/08/22 - Completed IV ceftriaxone 2g daily 11/19/23 via PICC line placed 11/09/23 as previously planned. Thoracic Surgery consult re: seroma at AICD lead site and did not feel aspiration was clinically warranted. recent osteomyelitis L 4th metatarsal - S/p partial 1st ray resection + 5th metatarsal wound debridement 11/05/23; antibiotics as above; remains NWB on L foot. Wound Care consult: Cleanse with Betadine allow to dry. Cover incision with dry gauze, cover lateral wound with durafiber, cover with dry gauze abd pad and wrap. Change every other day. paroxysmal AF - Held apixaban [plan per [facility] was to hold until 11/28] due to pericardial effusion; continue metoprolol succinate + amiodarone hx CAD - Continued atorvastatin + metoprolol succinate; held ASA in case pericardial drainage needed [last dose given on 11/20/23 at 0800] Time Attestation Discharge Coordination Time (in mins): 45 Quality: Safe Use of Opioids Does Pt have an Active Cancer Diagnosis on the Problem List?: No Quality: Stroke Does the patient have a stroke diagnosis?: No Physical Exam Vital Signs: Vital Signs: Last Vital Signs Temp 97.8 F 11/21/23 08:00 Pulse 78 11/21/23 11:33 Resp 28 H 11/21/23 11:33 BP 119/78 11/21/23 08:00 Pulse Ox 91 L 11/21/23 08:00 O2 Del Method CPAP 11/21/23 08:00 O2 Flow Rate 2 11/20/23 11:01 Oxygen Flow Rate 2 11/18/23 12:52 BMI result Body Mass Index 29.5 Gen: moderate respiratory distress HEENT: sclera anicteric, moist mucus membranes Neck: supple Lungs: diminished throughout Heart: regular rate and rhythm, no murmurs Abd: soft, non-tender, non-distended Ext: no edema Skin: warm/well-perfused, fluctuant collection at site of L ICD explantation Neuro: alert and oriented x3, no focal findings Psych: appropriate affect DS: Data Data Completed and Pending Completed studies during hospitalization [Text1]: Laboratory Results WBC 16.8 X10*3/uL (4.8-10.8) H 11/21/23 08:06 RBC 4.08 X10*6/uL (4.60-5.80) L 11/21/23 08:06 Hgb 11.3 g/dl (14.0-18.0) L 11/21/23 08:06 Hct 36.6 % (42.0-52.0) L 11/21/23 08:06 MCV 89.7 fL (80.0-98.0) 11/21/23 08:06 MCH 27.7 pg (27.0-33.0) 11/21/23 08:06 MCHC 30.9 g/dl (31.0-36.0) L 11/21/23 08:06 RDW 16.8 % (11.0-16.0) H 11/21/23 08:06 Plt Count 728 X10*3/uL (160-400) H 11/21/23 08:06 MPV 9.3 fL (9.4-12.4) L 11/21/23 08:06 Immature Gran % (Auto) 0.4 % (0.0-0.4) 11/18/23 13:10 Neut % (Auto) 63.1 % (45-73) 11/18/23 13:10 Lymph % (Auto) 20.9 % (20-40) 11/18/23 13:10 [place] % (Auto) 11.9 % (2-11) H 11/18/23 13:10 Eos % (Auto) 2.7 % (0-4) 11/18/23 13:10 Baso % (Auto) 1.0 % (0-2) 11/18/23 13:10 Lymph # (Auto) 1.6 X10*3/uL (1.2-4.9) 11/18/23 13:10 [place] # (Auto) 0.9 X10*3/uL (0.1-1.2) 11/18/23 13:10 Eos # (Auto) 0.2 X10*3/uL (0.0-0.4) 11/18/23 13:10 Baso # (Auto) 0.1 X10*3/uL (0.0-0.2) 11/18/23 13:10 Abs Immat Gran (auto) 0.03 X10*3/uL (0.00-0.03) 11/18/23 13:10 Absolute Neuts (auto) 4.8 x10*3/uL (2.0-8.3) 11/18/23 13:10 Absolute Nucleated RBC 0.000 X10*3/uL (0.0-0.012) 11/21/23 08:06 Nucleated RBC % (auto) 0.0 /100WBC (0.0-0.2) 11/21/23 08:06 ESR 81 MM/HR (0-15) H 11/21/23 08:06 PT 15.6 SEC (11.1-13.3) H D 11/18/23 13:10 INR 1.3 (0.9-1.1) H 11/18/23 13:10 D-Dimer High Sensitivty 790 NG/ML 11/18/23 13:10 VBG pH 7.44 (7.32-7.43) H 11/19/23 01:41 VBG pCO2 47 mmHg 11/19/23 01:41 VBG pO2 34 mmHg 11/19/23 01:41 VBG HCO3 32 mmol/L (22-26) H 11/19/23 01:41 VBG O2 Saturation 57.0 % 11/19/23 01:41 VBG Base Excess 7.7 mmol/L 11/19/23 01:41 Sodium 134 mmol/L (135-145) L 11/21/23 08:06 Potassium 4.5 mmol/L (3.3-5.1) 11/21/23 08:06 Chloride 94 mmol/L (96-108) L 11/21/23 08:06 Carbon Dioxide 32 mmol/L (22-29) H 11/21/23 08:06 Anion Gap 13 (12-20) 11/21/23 08:06 BUN 37 mg/dL (9-16) H 11/21/23 08:06 Creatinine 0.96 mg/dL (0.5-1.4) 11/21/23 08:06 Estim Creat Clear Calc 96.7 11/21/23 08:06 Estimated GFR > 60 11/21/23 08:06 POC Glucose 181 mg/dL (60-115) H 11/21/23 11:40 Random Glucose 376 mg/dL (60-115) H* 11/21/23 08:06 Calcium 9.6 mg/dL (8.4-10.2) 11/21/23 08:06 Magnesium 2.2 mg/dL (1.6-2.6) 11/21/23 08:06 Total Bilirubin 0.2 mg/dL (0.0-1.0) 11/18/23 13:10 Direct Bilirubin 0.2 mg/dL (0.0-0.5) 11/18/23 13:10 AST 42 U/L (5-37) H 11/18/23 13:10 ALT 30 U/L (0-40) 11/18/23 13:10 Alkaline Phosphatase 51 U/L (39-117) 11/18/23 13:10 Troponin I High Sens 10.2 ng/L (<3.5-35.0) D 11/18/23 13:10 C-Reactive Protein 2.87 mg/dL (< or = 0.50) H 11/20/23 06:14 B-Natriuretic Peptide 1375 pg/mL (<100) H 11/21/23 08:06 Total Protein 6.9 g/dL (6.5-8.0) 11/18/23 13:10 Albumin 2.5 g/dL (3.5-5.0) L 11/18/23 13:10 Procalcitonin 0.05 ng/mL 11/20/23 06:14 Urine Color Yellow 11/18/23 18:14 Urine Appearance Clear 11/18/23 18:14 Urine pH 7.0 (5.0-9.0) 11/18/23 18:14 Ur Specific [place] 1.015 (1.005-1.025) 11/18/23 18:14 Urine Protein Negative mg/dL (Neg-Trace) 11/18/23 18:14 Urine Glucose (UA) Negative mg/dL (Negative) 11/18/23 18:14 Urine Ketones Negative mg/dL (Negative) 11/18/23 18:14 Urine Blood Negative (Negative) 11/18/23 18:14 Urine Nitrite Negative (Negative) 11/18/23 18:14 Ur Leukocyte Esterase Negative (Negative) 11/18/23 18:14 Ethyl Alcohol < 10 mg/dL 11/18/23 13:10 Influenza Type A (PCR) NEGATIVE (Negative) 11/18/23 13:08 Influenza Type B (PCR) NEGATIVE (Negative) 11/18/23 13:08 RSV RNA Qual (PCR) NEGATIVE (Negative) 11/18/23 13:08 SARS-CoV-2 RNA (RT-PCR) NEGATIVE (Negative) 11/18/23 13:08 Impressions Chest X-Ray 11/18/23 13:19 IMPRESSION: Hazy opacities throughout the mid and lower lungs, similar to the prior examination. Infectious/inflammatory etiologies should be considered. There is a small right pleural effusion. Chest CTA 11/18/23 14:49 IMPRESSION: 1. No pulmonary emboli. Main pulmonary artery is enlarged suggesting elements of pulmonary arterial hypertension. 2. Bilateral interstitial prominence with a few small consolidative foci which may reflect evolving infectious/inflammatory etiology versus pulmonary edema. 3. 3 mm nodular focus in the medial aspect of the right lung apex. Follow-up as per Fleischner criteria. 4. Small left pleural effusion with subjacent atelectasis. Trace right pleural effusion with subjacent atelectasis. 5. Heart is enlarged. Moderate pericardial effusion. 6. Previously identified left chest wall pacer is no longer visualized with a partially visualized fluid-filled cavity in its place measuring approximately 5.9 x 2.9 cm. Possibly representing postoperative seroma. Correlation with physical exam. New right-sided pacer noted. Various management parameters for solitary pulmonary nodules are in the literature. According to the Fleischner Society, recommendations for pulmonary nodules are as follows: According to the UPDATED 2017 Fleischner Society recommendations, the advised follow-up imaging for solid nodules < 6 mm is: HIGH RISK PATIENT: Optional CT at 12 months. Discharge Plan Discharge Anticipated Discharge Date/Time: 11/21/23 11:48 Patient Disposition: Pending Sale To [facility] Discharge Diagnosis: pericardial effusion/acute pericarditis; recent AICD lead infection/explanation/reimplantation acute/chronic heart failure with reduced ejection fraction; ischemic cardiomyopathy COPD exacerbation acute hypoxic respiratory failure Referrals: Phi Crisostomo FNP-IRIS [Primary Care Provider] - 1 Week Waylon Cates MD [Physician] - 1 Week Discharge Medications: New ipratropium-albuterol 0.5 mg-3 mg(2.5 mg base)/3 mL Solution For Nebulization 3 ml inhalation RQ4H WHILE AWAKE Qty: 1 0RF doxycycline monohydrate 100 mg Capsule 100 mg PO Q12H Qty: 1 0RF levalbuterol HCl 1.25 mg/3 mL Solution For Nebulization 1.25 mg inhalation Q2H PRN (Reason: sob) Qty: 1 0RF Solu-Medrol (PF) 40 mg/mL Recon Soln 60 mg IVPUSH Q8H Qty: 1 0RF Continued (DME) pen needle, diabetic [BD Ultra-Fine Mini Pen Needle] 31 gauge x 3/16 ne edle See Rx Instructions .Route Qty: 400 1RF Rx Instructions: As directed to inject insulin 4 times per day atorvastatin 40 mg tablet 40 mg PO BEDTIME 90 Days Qty: 90 1RF (DME) FreeStyle Samantha 3 Sensor Device See Rx Instructions .Route Qty: 6 1RF Rx Instructions: Test blood sugar TID (DME) FreeStyle Lite Strips Strip See Rx Instructions .Route Qty: 300 1RF Rx Instructions: TID testing sertraline 25 mg tablet 25 mg PO DAILY Qty: 90 1RF omeprazole 20 mg capsule,delayed release(DR/EC) 20 mg PO DAILY@0630 90 Days Qty: 90 1RF gabapentin 300 mg capsule 300 mg PO TID Qty: 270 1RF albuterol sulfate [Ventolin HFA] 90 mcg/actuation HFA aerosol inhaler 2 puff PO Q6H PRN (Reason: wheezing) Qty: 18 1RF torsemide 20 mg tablet 40 mg PO DAILY melatonin 3 mg tablet 3 mg PO BEDTIME insulin glargine [Lantus Solostar U-100 Insulin] 100 unit/mL (3 mL) insulin pen 25 unit subcut BID acetaminophen 325 mg Tablet 650 mg PO Q6H PRN (Reason: Pain, Moderate) ipratropium-albuterol 0.5 mg-3 mg(2.5 mg base)/3 mL Solution For Nebulization 3 ml INHALATION Q6H PRN (Reason: Wheezing) amiodarone 200 mg Tablet 200 mg PO DAILY metoprolol succinate 25 mg Tablet Extended Release 24 Hr 37.5 mg PO BID insulin lispro 100 unit/mL Solution 7 unit SUBCUT TIDWM colchicine 0.6 mg Tablet 0.3 mg PO DAILY tramadol 50 mg Tablet 50 mg PO Q6H PRN (Reason: Pain, Moderate) Held aspirin [Adult Low Dose Aspirin] 81 mg tablet,delayed release (DR/EC) 81 mg PO DAILY Hold Instructions: Resume on 11/28/23. Discharge Orders: Discharge Order (Routine); Ordered 11/21/23 Ordered By: Franky Rodriguez Diet: NPO Activity on Discharge: As tolerated Stand Alone Forms: Patient Portal Discharge page Print Language: Indonesian Care Plan Goals: drainage of pericardial effusion Health Concerns: pericardial effusion/acute pericarditis; recent AICD lead infection/explanation/reimplantation acute/chronic heart failure with reduced ejection fraction; ischemic cardiomyopathy COPD exacerbation acute hypoxic respiratory failure Plan of Treatment: transfer to [facility] for higher level of care including pericardial drainage Assessment: See Discharge Summary.
[2023-11-21 11:59] LABS: Glucose, Whole Blood 181 mg/dL (60-115)
[2023-11-21 12:53] LABS: Venous Blood Gas Refer to POC result
[2023-11-21 12:53] LABS: VBG Base Excess 12.1 mmol/L; VBG HCO3 37 mmol/L (22-26); VBG pCO2 52 mmHg; VBG pH 7.46 (7.32-7.43); VBG pO2 41 mmHg
--- NOTE | 2023-11-21 13:33 | MHC.CM.PN ---
Patient will be transferred to another [facility].
== END 2023-11-21 14:57 | disposition short-term general hospital (02) | DRG 190 ==
LOC: HO.ED 17:06 → HO.EDOVER 18:56 → HO.IMC 11-19 08:06
PROVIDERS: Student in an Organized Health Care Education/Training Program; Admitting Provider Hospitalist; Emergency Provider Emergency Medicine; PCP Nurse Practitioner Family; Visit Provider Family Medicine
DX: J44.1 Chronic obstructive pulmonary disease with (acute) exacerbation (principal); I50.23 Acute on chronic systolic (congestive) heart failure; I30.9 Acute pericarditis, unspecified; L76.34 Postprocedural seroma of skin and subcutaneous tissue following other procedure; I25.10 Atherosclerotic heart disease of native coronary artery without angina pectoris; I25.5 Ischemic cardiomyopathy; F17.210 Nicotine dependence, cigarettes, uncomplicated; I48.0 Paroxysmal atrial fibrillation; E11.65 Type 2 diabetes mellitus with hyperglycemia; F39 Unspecified mood [affective] disorder; Z95.810 Presence of automatic (implantable) cardiac defibrillator; Z71.6 Tobacco abuse counseling; Z95.5 Presence of coronary angioplasty implant and graft; Z20.822 Contact with and (suspected) exposure to COVID-19; Z79.82 Long term (current) use of aspirin; Z79.4 Long term (current) use of insulin; Z79.899 Other long term (current) drug therapy
CPT/HCPCS: 0241U; 36415; 71045; 71275; 80048; 80076; 80307; 81003; 82803; 82947; 83735; 83880; 84145; 84484; 85025; 85027; 85379; 85610; 85652; 86140; 92950; 93005; 93308; 94640; 94660; 99285; J0696; J1940; J2270; J2919; Q9957; Q9967

== ENCOUNTER → 2023-11-18 12:57 | Outpatient (BNV) | payer OTHER, SELFPAY | PROVIDERS: Admitting Provider Hospitalist; Emergency Provider Emergency Medicine; PCP Nurse Practitioner Family; Visit Provider Internal Medicine Cardiovascular Disease | DX: R94.31 Abnormal electrocardiogram [ECG] [EKG] (principal) | CPT/HCPCS: 93010 ==

== ENCOUNTER 2023-11-18 18:28 | Outpatient (BNV) | payer OTHER, SELFPAY | END 2023-11-19 07:00 | PROVIDERS: Admitting Provider Hospitalist; Emergency Provider Emergency Medicine; PCP Nurse Practitioner Family; Visit Provider Internal Medicine Cardiovascular Disease | DX: I31.39 Other pericardial effusion (noninflammatory) (principal) | CPT/HCPCS: 93308 ==

== ENCOUNTER → 2023-11-18 18:28 | Outpatient (BNV) | payer OTHER, SELFPAY | PROVIDERS: Admitting Provider Hospitalist; Emergency Provider Emergency Medicine; PCP Nurse Practitioner Family; Visit Provider Hospitalist | DX: I31.39 Other pericardial effusion (noninflammatory) (principal); J44.1 Chronic obstructive pulmonary disease with (acute) exacerbation; T79.2XXA Traumatic secondary and recurrent hemorrhage and seroma, initial encounter; I31.9 Disease of pericardium, unspecified; I50.23 Acute on chronic systolic (congestive) heart failure; I25.5 Ischemic cardiomyopathy; J96.01 Acute respiratory failure with hypoxia; Z95.810 Presence of automatic (implantable) cardiac defibrillator; I48.0 Paroxysmal atrial fibrillation; G47.30 Sleep apnea, unspecified | CPT/HCPCS: 99223; 99232; 99233; 99239 ==

== ENCOUNTER → 2023-11-18 18:28 | Outpatient (BNV) | payer OTHER, SELFPAY | PROVIDERS: Admitting Provider Hospitalist; Emergency Provider Emergency Medicine; PCP Nurse Practitioner Family; Visit Provider Internal Medicine Cardiovascular Disease | DX: J44.1 Chronic obstructive pulmonary disease with (acute) exacerbation (principal); I50.9 Heart failure, unspecified; I31.39 Other pericardial effusion (noninflammatory) | CPT/HCPCS: 99223; 99233 ==

== ENCOUNTER → 2023-11-18 18:28 | Outpatient (BNV) | payer OTHER, SELFPAY | PROVIDERS: Admitting Provider Hospitalist; Emergency Provider Emergency Medicine; PCP Nurse Practitioner Family; Visit Provider Surgery | DX: T79.2XXA Traumatic secondary and recurrent hemorrhage and seroma, initial encounter (principal) | CPT/HCPCS: 99222 ==

== ENCOUNTER 2023-12-07 14:31 | Outpatient (AMB) | payer OTHER, SELFPAY ==
--- NOTE | 2023-12-07 14:45 | A.OFFVIS_ITS ---
Vital Signs 12/07/23 14:46 Height 5 ft 11 in Weight 196 lb 3.382 oz BMI 27.4 BP 120/60 Blood Pressure Location Lt brachial Position Sitting Intake Visit Reasons: Follow Up Ed [facility] Allergies No Known Allergies [No Known Allergies*] Allergy (Verified 11/18/23 12:59) HPI Comments Details: 58-year-old male presents today for a follow-up regarding his hospital stay at [facility]. He had his ICD reimplanted on Nov 09 2023. The prior device was explanted due to bactermia. He also had LLE osteomyelitis and had partial amputation of his left foot. He had a hematoma on the left side where his first ICD was explanted from. On 12/01 was noted to have moderate pericadial effusion but no evidence of cardia tamponade and no intervention at that time. He had a 19 hour of atrial tach.a-fib while there. He denies any pains, palpitations, pain, swelling, or orthopnea. He reports some shortness of breath and mild dizziness if he over exerts himself. But, he reports his breathing status has improved greatly. He is avoiding salt at home. He has VNA who has been checking his blood pressures [facility] Medical History Diverticulosis Tubular adenoma of colon (~2017) History of COVID-19 Nicotine dependence, cigarettes, uncomplicated Hypertensive retinopathy Microhematuria ICD (implantable cardioverter-defibrillator) in place Tendinitis of left rotator cuff COPD (chronic obstructive pulmonary disease) KIMANI (obstructive sleep apnea) Type 2 diabetes mellitus without complications Sleep apnea CAD (coronary artery disease) Paroxysmal atrial fibrillation (~2017) Cardiomyopathy Surgical History History of cardiac cath History of ankle surgery History of implantable cardiac defibrillator (ICD) History of colonoscopy History of heart artery stent History of cardiac radiofrequency ablation History of cardioversion History of esophagogastroduodenoscopy History of umbilical hernia History of inguinal hernia Family History Father Atherosclerosis Mother Cerebral aneurysm Maternal Grandmother Unknown family medical history Mother Cerebral hemorrhage Father Coronary artery disease Social History Household Members: None Housing: House Are you a primary child care assistant to a significant other at home: No Do you presently have visiting nurse or other home services: Yes Alcohol intake: former Patient Tobacco Use Status: Current everyday Tobacco user Tobacco use type: Cigarette Cigarette Packs Per Day: 1 Years Smoked: (current smoker - onset 14yo, 1ppd x 43yrs, 40pyh) e-Cigarette/Vaping Use: Former Use Second Hand Smoke Exposure: Yes Advance Directives Date on File: 07/09/21 service: No Current occupational status: unemployed and disabled Current occupation: rt handed Cognitive needs: No Hearing needs: No Vision needs: No Review of Systems Const Denies weakness ENT Denies dizziness Card Denies chest pain, Denies chest pain with activity, Denies syncope, Denies rapid heart rate, Denies pedal edema, Denies edema, Denies leg edema, Denies lightheadedness, Denies palpitations, Denies dyspnea, Denies dyspnea on exertion and Denies orthopnea Resp Denies cough, Denies dyspnea and Denies dyspnea on exertion GI Denies hematochezia and Denies change in stool character Musc Denies abnormal gait, Denies muscle cramps, Denies muscle weakness, Denies numbness, Denies radiating pain into limb and Denies tingling Neuro Denies abnormal gait, Denies dizziness, Denies syncope, Denies numbness, Denies tingling and Denies weakness Endo Denies palpitations Physical Exam Vital Signs: Last Vital Signs BP 120/60 12/07/23 14:46 BMI result Body Mass Index 27.4 Const General: healthy appearing and no acute distress Orientation/consciousness: patient oriented x3 HEENT Head: Yes normal to inspection Eyes General: appearance normal, both eyes and all related structures Neck Neck: Yes normal visual inspection Chest Chest palpation & inspection: normal inspection of the chest Resp Effort & Inspection: normal respiratory effort Auscultation: clear to auscultation bilaterally Cardio Jugular venous distension: no JVD Palpation: normal PMI Rate: regular rate Rhythm: regular rhythm Heart sounds: S1 normal heart sound present, S2 normal heart sound present, no click, no gallops, no murmurs and no rubs GI Inspection: Yes normal to inspection Palpation (GI): Soft to palpation Skin General skin exam: no rashes or lesions noted Neuro General: patient oriented x3 Extrem General: Yes normal to inspection Psych Appearance: grossly normal Office Procedures EKG Details: EKG today Sinus rhythm with 1st degree AV block. Low voltage QRS. lateral infarct, age undetermined. ST & T wave abnormality consider inferior ischemia. Rate 75 bpm. NM 224ms. QRS 112ms. [id number], Complete Assessment & Plan Assessment & Plan (1) Acute on chronic HFrEF (heart failure with reduced ejection fraction): Code(s): I50.23 - Acute on chronic systolic (congestive) heart failure Category: Medical (2) Pericardial effusion: Code(s): I31.39 - Other pericardial effusion (noninflammatory) Category: Medical (3) Shortness of breath: Code(s): R06.02 - Shortness of breath Category: Medical (4) ICD (implantable cardioverter-defibrillator) in place: Code(s): Z95.810 - Presence of automatic (implantable) cardiac defibrillator Category: Medical (5) CAD (coronary artery disease): Code(s): I25.10 - Atherosclerotic heart disease of [place] coronary artery without angina pectoris Category: Medical Plan Patient currently does not appear fluid overlaoded. Breathing reported has significantly improved. He is due for an echcoardiogram 12/27/2023. Will discuss with Dr. Andrew his primary solution analyst regarding plan of care. patient is going to call us with his mediaction list. ICD in place. Will have integration arranged. Requested more records from [facility]. T wave and ST abnroma lties have been noted in the past. Coding Level of Care Code Est Pt Level 4 (68669) Diagnoses Acute on chronic HFrEF (heart failure with reduced ejection fraction) I50.23 Pericardial effusion I31.39 Shortness of breath R06.02 ICD (implantable cardioverter-defibrillator) in place Z95.810 CAD (coronary artery disease) I25.10 CPT Codes EKG - CPT: [id number], Complete ([id number])
[2023-12-07 14:46] VITALS: BP 120/60; BMI 27.4
== END 2023-12-07 15:35 | disposition home or self-care (01) ==
PROVIDERS: PCP Nurse Practitioner Family; Visit Provider Nurse Practitioner
DX: I50.23 Acute on chronic systolic (congestive) heart failure (principal); I31.39 Other pericardial effusion (noninflammatory); R06.02 Shortness of breath; Z95.810 Presence of automatic (implantable) cardiac defibrillator; I25.10 Atherosclerotic heart disease of native coronary artery without angina pectoris
CPT/HCPCS: 93010; 99214

== ENCOUNTER → 2023-12-07 14:31 | Outpatient (BNVA) | payer OTHER, SELFPAY | PROVIDERS: PCP Nurse Practitioner Family; Visit Provider Nurse Practitioner | DX: I11.0 Hypertensive heart disease with heart failure (principal); I50.23 Acute on chronic systolic (congestive) heart failure; I31.39 Other pericardial effusion (noninflammatory); I44.0 Atrioventricular block, first degree; R06.02 Shortness of breath; Z95.5 Presence of coronary angioplasty implant and graft; Z95.810 Presence of automatic (implantable) cardiac defibrillator; Z98.890 Other specified postprocedural states | CPT/HCPCS: 93005; 99212 ==

== ENCOUNTER 2024-01-03 07:48 | Outpatient (AMB) | payer OTHER, SELFPAY ==
--- NOTE | 2024-01-03 07:58 | MHC.PC.OV ---
Vital Signs 01/03/24 08:00 Height 5 ft 11 in Weight 196 lb BMI 27.3 BP 120/64 Blood Pressure Location Rt brachial Position Sitting Pulse 64 Pulse Source Pulse Oximeter Pulse Oximetry (%) 93 Oxygen Delivery Method Room Air Intake Visit Reasons: PE- see comments Intake Note: Pt is here today for his PE Allergies No Known Allergies [No Known Allergies*] Allergy (Verified 01/03/24 08:20) Medication List - Last Reconciled 01/03/24 by ANA ROSA Proctor acetaminophen 650 mg PO Q6H PRN amiodarone 200 mg PO DAILY aspirin (Adult Low Dose Aspirin) 81 mg PO DAILY atorvastatin 40 mg PO BEDTIME 90 days blood-glucose sensor ([employer] Samantha 3 Sensor device) Test blood sugar TID colchicine 0.3 mg PO DAILY [diabetic shoes with custom insert for left shoe As directed] doxycycline monohydrate 100 mg PO Q12H FreeStyle Lite Strips (blood sugar diagnostic) TID testing NS gabapentin 300 mg PO TID insulin glargine (Lantus Solostar U-100 Insulin) 25 units subcut BID insulin lispro 7 units subcut TIDWM ipratropium-albuterol 0.5 mg-3 mg(2.5 mg base)/3 mL 3 mL inhalation Q6H PRN ipratropium-albuterol 0.5 mg-3 mg(2.5 mg base)/3 mL 3 mL inhalation RQ4H WHILE AWAKE levalbuterol HCl 1.25 mg (3 mL) inhalation Q2H PRN melatonin 3 mg PO BEDTIME methylprednisolone sod suc(PF) (Solu-Medrol (PF)) 60 mg (1.5 mL) IVPUSH Q8H metoprolol succinate ER 100 mg PO DAILY omeprazole 20 mg PO DAILY@0630 90 days pen needle, diabetic (BD Ultra-Fine Mini Pen Needle) As directed to inject insulin 4 times per day sertraline 25 mg PO DAILY torsemide 20 mg PO .qod tramadol 50 mg PO Q6H PRN Ventolin HFA 90 mcg/actuation (albuterol sulfate) 2 puffs PO Q6H PRN NS Tobacco use date assessed: 01/03/24 Dental Screening Dental Screen Date: 01/03/24 Did you have a dental visit in the last 12 months?: Yes Did you have a dental problem in the last 6 months where you did not have access to dental care?: Yes Was dental information given to patient?: Patient has dentist HPI PE- see comments HPI Details Here for PE. Pt has been hospitalized recently. Infected leads to defibrillator, osteomyelitis (left big toe amputated), sepsis, CHF noted. Pt currently sees cardiology, podiatry, pulmonary, and vascular. Pt has VNA services for left foot wound dressing changes (every other day). He is currently on antibiotics. He is seeing the drill sharpener in 2 weeks. Pt denies any recent CP, does get SOB (COPD) difficulty with hot humid weather. Please see all previous Notes. diabetes: reports he is trending around 130, will check a A1c, encouraged to get labs drawn, on a statin. Pt was seeing urology, will still order a PSA. [facility] Medical History Diverticulosis Tubular adenoma of colon (~2018) History of COVID-19 Nicotine dependence, cigarettes, uncomplicated Hypertensive retinopathy Microhematuria ICD (implantable cardioverter-defibrillator) in place Tendinitis of left rotator cuff COPD (chronic obstructive pulmonary disease) KIMANI (obstructive sleep apnea) Type 2 diabetes mellitus without complications Sleep apnea CAD (coronary artery disease) Paroxysmal atrial fibrillation (~2017) Cardiomyopathy Surgical History History of cardiac cath History of ankle surgery History of implantable cardiac defibrillator (ICD) History of colonoscopy History of heart artery stent History of cardiac radiofrequency ablation History of cardioversion History of esophagogastroduodenoscopy History of umbilical hernia History of inguinal hernia Family History Father Atherosclerosis Mother Cerebral aneurysm Maternal Grandmother Unknown family medical history Mother Cerebral hemorrhage Father Coronary artery disease Social History Household Members: None Housing: House Are you a primary medicare contact specialist to a significant other at home: No Do you presently have visiting nurse or other home services: Yes Alcohol intake: former Patient Tobacco Use Status: Current everyday Tobacco user Tobacco use type: Cigarette Cigarette Packs Per Day: 1 Years Smoked: (current smoker - onset 14yo, 1ppd x 43yrs, 40pyh) e-Cigarette/Vaping Use: Former Use Second Hand Smoke Exposure: Yes Advance Directives Date on File: 07/09/21 service: No Current occupational status: unemployed and disabled Current occupation: rt handed Cognitive needs: No Hearing needs: No Vision needs: Yes Questionnaire PHQ-9 Over the last 2 weeks, how often have you been bothered by any of the following problems? 1. Little interest or pleasure in doing things: not at all 2. Feeling down, depressed, or hopeless: not at all 3. Trouble falling or staying asleep, or sleeping too much: not at all 4. Feeling tired or having little energy: not at all 5. Poor appetite or overeating: not at all 6. Feeling bad about yourself - or that you are a failure or have let yourself or your family down: not at all 7. Trouble concentrating on things, such as reading the newspaper or watching television: not at all 8. Moving or speaking so slowly that other people could have noticed. Or the opposite - being so fidgety or restless that you have been moving around a lot more than usual: not at all 9. Thoughts that you would be better off or of hurting yourself in some way: not at all Total score: 0 Depression Screening Interpretation: Negative Depression Screening Done: Yes 34129 - PHQ-9 Billing: Yes Source: Developed by Drs. Cesar Santana, Julia Mays, Ian Shell and colleagues, with an educational nia from [employer]. Thrive Questionnaire Date Thrive assessed: 01/03/24 I am a: Patient What is your living situation today?: I have a steady place to live Within the past 12 months, did the food you bought not last and you didn't have the money to get more?: Never true Within the past 12 months, did you worry whether your food would run out before you got money to buy more?: Never true Do you have trouble paying for medicines?: No Do you have trouble getting transportation to medical appointments?: No Do you have trouble paying your heating and electricity bill?: Yes Do you have trouble taking care of your child, family member or friend?: No Do you have trouble with day-to-day activities such as bathing, preparing meals, shopping, managing finances, etc.?: No Are you currently unemployed and looking for a job?: No Are you interested in more education?: No Currently or been in a relationship where the following occur: No concerns reported THRIVE Score: 1 AUDIT C Alcohol Use Questionnaire (AUDIT-C) 1. How often do you have a drink containing alcohol?: Never Total Score: 0 DIPIKA-7 AMB Questionnaire DIPIKA-7 Date DIPIKA - 7 assessed: 01/03/24 Feeling nervous, anxious, or on edge: 0 = Not at all Not being able to stop or control worryin = Not at all Worrying too much about different things: 0 = Not at all Trouble relaxin = Not at all Being so restless that it is hard to sit still: 0 = Not at all Becoming easily annoyed or irritable: 0 = Not at all Feeling afraid as if something awful might happen: 0 = Not at all Total DIPIKA-7 score (0-4 normal; 5-9 mild; 10-14 moderate; 15-21 severe): 0 Source: Developed by Drs. Cesar Santana, Julia Mays, Ian Shell and colleagues, with an educational nia from [employer]. DIPIKA-7 Assessment Billing DIPIKA-7 Assessment Tool: DIPIKA-7 Assessment 20887 Review of Systems Const Denies chills and Denies fever(s) Eyes Denies blurry vision ENT Denies vertigo, Denies dizziness and Denies sore throat Card Denies chest pain at rest, Denies chest pain with activity, Denies diaphoresis, Denies dyspnea and Reports dyspnea on exertion Resp Denies cough, Denies dyspnea, Reports dyspnea on exertion and Denies wheezing GI Denies abdominal pain, Denies melena, Denies hematochezia, Denies constipation, Denies diarrhea and Denies loose stools Denies hematuria Musc Denies numbness and Denies tingling Skin/Breast Denies lesions Neuro Denies vertigo, Denies dizziness, Denies numbness and Denies tingling Psych Denies anxiety, Denies depression, Denies homicidal ideation, Denies suicidal ideation and Denies other (substance abuse) Aller/Immun Denies wheezing Physical exam (Primary Care) Vital Signs: Last Vital Signs Pulse 64 01/03/24 08:00 BP 120/64 01/03/24 08:00 Pulse Ox 93 01/03/24 08:00 Oxygen Delivery Method Room Air 01/03/24 08:00 BMI result Body Mass Index 27.3 Tobacco/Smoking Status: Tobacco use Status Tobacco use date assessed 01/03/24 01/03/24 08:04 Patient Tobacco Use Status Current everyday Tobacco 01/03/24 07:59 Tobacco use type Cigarette 01/03/24 07:59 e-Cigarette/Vaping Use Former Use 01/03/24 07:59 PHQ-9: PHQ-9 Score PHQ-9: Total score 0 01/03/24 08:04 Depression Screening Interpretation: Negative Thrive Assessment: Date of Thrive Assessment Date Thrive assessed 01/03/24 01/03/24 08:04 Currently or been in a relationship where the following occur: No concerns reported Const Other: using cane General: cooperative Nutritional Appearance: well nourished Orientation/consciousness: patient oriented x3 HENMT Head: Yes normal to inspection, Yes normocephalic and Yes atraumatic Ears: TM normal on the right and TM normal on the left Eyes General: appearance normal, both eyes and all related structures Alignment and Position: alignment normal and position normal Neck Neck: Yes normal visual inspection and Yes no lymphadenopathy Chest Other: right upper with defib. Left upper chest with ? scar tissue/hematoma from old site Resp Effort & Inspection: normal respiratory effort Auscultation: clear to auscultation bilaterally Cardio Rate: regular rate Rhythm: regular rhythm Heart sounds: S1 normal heart sound present, S2 normal heart sound present and no murmurs GI Palpation (GI): Soft to palpation and nontender Auscultation: normal bowel sounds Skin Rashes: no rashes Neuro Other: no sensation to left foot with palpation. Moves toes equally. + sensation to right foot/toes General: patient oriented x3, moves all extremities, no focal motor deficits and deep tendon reflexes 2+ bilaterally Romberg Test: Negative Extrem Other: left foot, amputated big toe, healed wound to plantar aspect of first MTP joint. second MTP joint region (plantar aspect), circular open lesion, without any drainage. No active signs of infection. lateral distal region on left foot with linear wound, slightly open at ends, not currently drainage. No signs of cellulitis or spreading infection. Weak DP noted. Pt is a diabetic, Right lower extremity: no edema Left lower extremity: no edema Psych Affect: normal affect Attitude: cooperative Thought process: Normal thought process present Assessment and Plan Assessment & Plan (1) Encounter for routine adult physical exam with abnormal findings: Code(s): Z00.01 - Encounter for general adult medical examination with abnormal findings (2) Foot ulceration: Code(s): L97.509 - Non-pressure chronic ulcer of other part of unspecified foot with unspecified severity Plan: VNA involved, wound care referral placed, podiatry involved. (3) Respiratory crackles at both lung bases: Code(s): R09.89 - Other specified symptoms and signs involving the circulatory and respiratory systems Plan: chest XR order placed (4) Screening PSA (prostate specific antigen): Code(s): Z12.5 - Encounter for screening for malignant neoplasm of prostate Plan: PSA ordered (5) Screening for colon cancer: Code(s): Z12.11 - Encounter for screening for malignant neoplasm of colon Plan cologuard ordered Orders: Orders Complete Blood Count Auto Diff Today Z00. - Encounter for general adult medical examination with abnormal findings TSH reflex Free T4 Today Z00.01 - Encounter for general adult medical examination with abnormal findings UA CC w/rflx Micro + Cult Today Z00. - Encounter for general adult medical examination with abnormal findings Lipid Panel Today Z00. - Encounter for general adult medical examination with abnormal findings Hemoglobin A1c Today Z00.01 - Encounter for general adult medical examination with abnormal findings Prostate Specific Antigen Scr Today Z12.5 - Encounter for screening for malignant neoplasm of prostate Comprehensive [place]. Panel Fast Today Z00. - Encounter for general adult medical examination with abnormal findings Microalbumin, Random (w Creat) Today Z00.01 - Encounter for general adult medical examination with abnormal findings XR chest 2V Today R09.89 - Other specified symptoms and signs involving the circulatory and respiratory systems Referrals Wound Care Referral L97.509 - Non-pressure chronic ulcer of other part of unspecified foot with unspecified severity Cologuard Test Z12.11 - Encounter for screening for malignant neoplasm of colon, Z12.12 - Encounter for screening for malignant neoplasm of rectum Coding Level of Care Code Est Pt Level 3 (99548) Est Pt Prev Care 40-64y(55775) Diagnoses Encounter for routine adult physical exam with abnormal findings Z00.01 Foot ulceration L97.509 Respiratory crackles at both lung bases R09.89 Screening PSA (prostate specific antigen) Z12.5 Screening for colon cancer Z12.11 Additional Codes DIPIKA-7 Assessment Billing - DIPIKA-7 Assessment Tool: DIPIKA-7 Assessment 33465 ([id number])
[2024-01-03 08:00] VITALS: BP 120/64; PULSE 64; O2SAT 93; BMI 27.3
== END 2024-01-03 09:12 | disposition home or self-care (01) ==
PROVIDERS: PCP Nurse Practitioner Family; Visit Provider Nurse Practitioner Family
DX: Z00.00 Encounter for general adult medical examination without abnormal findings (principal); L97.509 Non-pressure chronic ulcer of other part of unspecified foot with unspecified severity; R09.89 Other specified symptoms and signs involving the circulatory and respiratory systems; Z12.5 Encounter for screening for malignant neoplasm of prostate; Z12.11 Encounter for screening for malignant neoplasm of colon
CPT/HCPCS: 99396

== ENCOUNTER 2024-01-03 08:57 | Outpatient (REF) | payer OTHER, SELFPAY ==
--- NOTE | ~2024-01-03 | XR_ITS ---
EXAMINATION: XR CHEST CLINICAL INFORMATION: Other specified symptoms and signs involving the circulatory system COMPARISON: Chest radiograph and CT chest 11/18/2023 TECHNIQUE: 2 views of the chest were obtained. FINDINGS: Heart size within normal limits. No CHF. Right chest wall dual-lead pacemaker in unchanged position. Tiny right pleural effusion persists. Bibasilar opacities are mildly improved when compared to the prior study. Some minimal abnormality persists. XR/XR chest 2V IMPRESSION: Improving bibasilar opacities.
== END 2024-01-03 08:58 | disposition home or self-care (01) ==
LOC: HO.HMGCX 08:57
PROVIDERS: PCP Nurse Practitioner Family; Visit Provider Nurse Practitioner Family
DX: R09.89 Other specified symptoms and signs involving the circulatory and respiratory systems (principal)
CPT/HCPCS: 71046

== ENCOUNTER → 2024-01-04 10:47 | Outpatient (REF) | payer OTHER, SELFPAY ==
--- NOTE | 2024-01-04 11:05 | CA_ITS ---
Transthoracic Echocardiogram Patient (Last, First, Middle): Jr Cruz, Gender: Male Date of : 1965 Age: 58 Procedure Date: 01/04/2024 Procedure Type: Transthoracic Echocardiogram Location: OP Height: 180.34 cm Weight: 86.18 kg BSA: 2.06 m2 Heart Rate: 76 bpm BP: 120 / 60 mmHg Leadership Program Internship: OZZIE Referring MD: Bakari Andrew MD Symptoms: I25.5 - Ischemic cardiomyopathy Study Quality: Adequate w/Contrast. Limited by order Conclusions: - The left ventricular systolic function is severely decreased. The visually estimated ejection fraction is between 25-30%. - There is a moderate circumferential pericardial effusion. There are no definitive echocardiographic findings of tamponade physiology. Findings Procedure Information Contrast agent, definity, is being given per protocol without apparent complications. Left Ventricle Normal left ventricular cavity size. The left ventricular systolic function is severely decreased. The visually estimated ejection fraction is between 25-30%. There is severe global hypokinesis. Venous The inferior vena cava is normal in size and collapses greater than 50% with inspiration. Pericardium/Pleural There is a moderate circumferential pericardial effusion. There are no definitive echocardiographic findings of tamponade physiology. Prior Study Comparison No significant change compared to prior study dated: 11/19/2023. Measurements 2D Linear Measurements IVSd: 0.92 0.6-0.9/0.6-1.0 cm LVIDd: 5.76 3.9-5.3/4.2-5.9 cm LVIDd Index: 2.80 2.4-3.2/2.2-3.1 cm/m2 LVPWd: 1.16 0.7-1.1 cm LV Mass: 302.80 67-162/88-224 g LV Mass Index: 146.99 43-95/49-115 g/m2 LVOT Diam: 2.00 3.0+(-)1.3 cm 2D Systolic Function EF 4C: 38.40 >55% EF 2C: 42.70 >55% EF BiP: 40.80 >55% LVOT LVOT Pk Rashawn: 0.72 LVOT Mn Rashawn: 0.47 LVOT VTI: 0.16 LVOT Pk Grad: 2.00 LVOT Mn Grad: 1.00 LVOT Diam: 2.00 LVOT Area: 3.14 Updated in Other Vendor System with Status of Final Suleiman Pham MD electronically signed on 01/05/2024 11:01:46 AM with status of Final
== END ==
LOC: HO.CARD 10:47
PROVIDERS: Visit Provider Internal Medicine Cardiovascular Disease
DX: I50.20 Unspecified systolic (congestive) heart failure (principal)
CPT/HCPCS: 93308; Q9957

== ENCOUNTER → 2024-01-04 11:05 | Outpatient (BNV) | payer OTHER, SELFPAY | PROVIDERS: Visit Provider Internal Medicine | DX: I25.5 Ischemic cardiomyopathy (principal); I31.39 Other pericardial effusion (noninflammatory) | CPT/HCPCS: 93308 ==

== ENCOUNTER 2024-01-10 08:42 | Outpatient (AMB) | payer OTHER, SELFPAY ==
[2024-01-10 09:21] VITALS: BP 100/72; PULSE 92; O2SAT 97; BMI 27.5
--- NOTE | 2024-01-10 09:21 | MHC.PC.OV ---
Vital Signs 01/10/24 09:21 Height 5 ft 11 in Weight 197 lb BMI 27.5 BP 100/72 Blood Pressure Location Rt brachial Position Sitting Pulse 92 Pulse Source Pulse Oximeter Pulse Oximetry (%) 97 Oxygen Delivery Method Room Air Intake Visit Reasons: need form fill out for prosthetic (Narda pt) Intake Note: Pt is here today needs form filled out for prosthetic Allergies No Known Allergies [No Known Allergies*] Allergy (Verified 01/12/24 09:35) Medication List - Last Reconciled 01/12/24 by Vianney Fox MD acetaminophen 650 mg PO Q6H PRN amiodarone 200 mg PO DAILY aspirin (Adult Low Dose Aspirin) 81 mg PO DAILY atorvastatin 40 mg PO BEDTIME 90 days blood-glucose sensor (FreeStyle Samantha 3 Sensor device) Test blood sugar TID colchicine 0.3 mg PO DAILY [diabetic shoes with custom insert for left shoe As directed] FreeStyle Lite Strips (blood sugar diagnostic) TID testing NS gabapentin 300 mg PO TID insulin glargine (Lantus Solostar U-100 Insulin) 25 units subcut BID insulin lispro 7 units subcut TIDWM ipratropium-albuterol 0.5 mg-3 mg(2.5 mg base)/3 mL 3 mL inhalation RQ4H WHILE AWAKE levalbuterol HCl 1.25 mg (3 mL) inhalation Q2H PRN melatonin 3 mg PO BEDTIME metoprolol succinate ER 100 mg PO DAILY omeprazole 20 mg PO DAILY@0630 90 days pen needle, diabetic (BD Ultra-Fine Mini Pen Needle) As directed to inject insulin 4 times per day sertraline 25 mg PO DAILY torsemide 20 mg PO .qod tramadol 50 mg PO Q6H PRN Ventolin HFA 90 mcg/actuation (albuterol sulfate) 2 puffs PO Q6H PRN NS Tobacco use date assessed: 01/10/24 Dental Screening Dental Screen Date: 01/10/24 Did you have a dental visit in the last 12 months?: Yes Did you have a dental problem in the last 6 months where you did not have access to dental care?: No Was dental information given to patient?: Patient has dentist HPI need form fill out for prosthetic (Davids pt) HPI Details 58-year-old male with diabetes mellitus, dyslipidemia, history of CAD status post PCI in 2013 with heart failure with reduced ejection fraction status post dual-chamber ICD, COPD, KIMANI on CPAP, with history of left foot osteomyelitis status post amputation of left big toe, here today needing prescription for a prosthetic for his left foot. [facility] Medical History (Updated 01/12/24 @ 09:56 by Vianney Fox MD) History of osteomyelitis 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 Diverticulosis Tubular adenoma of colon (~2018) History of COVID-19 Nicotine dependence, cigarettes, uncomplicated Hypertensive retinopathy Microhematuria ICD (implantable cardioverter-defibrillator) in place COPD (chronic obstructive pulmonary disease) KIMANI (obstructive sleep apnea) Sleep apnea CAD (coronary artery disease) Paroxysmal atrial fibrillation (~2017) Surgical History (Updated 01/12/24 @ 09:56 by Vianney Fox MD) History of amputation of left great toe History of cardiac cath History of ankle surgery History of implantable cardiac defibrillator (ICD) History of colonoscopy History of heart artery stent History of cardiac radiofrequency ablation History of cardioversion History of esophagogastroduodenoscopy History of umbilical hernia History of inguinal hernia Family History Father Atherosclerosis Mother Cerebral aneurysm Maternal Grandmother Unknown family medical history Mother Cerebral hemorrhage Father Coronary artery disease Social History Household Members: None Housing: House Are you a primary intensive care ambulance paramedic to a significant other at home: No Do you presently have visiting nurse or other home services: Yes Alcohol intake: former Patient Tobacco Use Status: Current everyday Tobacco user Tobacco use type: Cigarette Cigarette Packs Per Day: 1 Years Smoked: (current smoker - onset 14yo, 1ppd x 43yrs, 40pyh) e-Cigarette/Vaping Use: Former Use Second Hand Smoke Exposure: Yes Advance Directives Date on File: 07/09/21 service: No Current occupational status: unemployed and disabled Current occupation: rt handed Cognitive needs: No Hearing needs: No Vision needs: Yes Questionnaire PHQ-9 Over the last 2 weeks, how often have you been bothered by any of the following problems? 1. Little interest or pleasure in doing things: more than half the days 2. Feeling down, depressed, or hopeless: not at all 3. Trouble falling or staying asleep, or sleeping too much: not at all 4. Feeling tired or having little energy: several days 5. Poor appetite or overeating: not at all 6. Feeling bad about yourself - or that you are a failure or have let yourself or your family down: not at all 9. Thoughts that you would be better off or of hurting yourself in some way: not at all Source: Developed by Drs. Cesar Santana, Julia Mays, Ian Shell and colleagues, with an educational nia from [employer]. Thrive Questionnaire Date Thrive assessed: 01/03/24 I am a: Patient What is your living situation today?: I have a place to live, but I am worried about losing it in the future Within the past 12 months, did the food you bought not last and you didn't have the money to get more?: Sometimes True Within the past 12 months, did you worry whether your food would run out before you got money to buy more?: Sometimes True Do you have trouble paying for medicines?: No Do you have trouble getting transportation to medical appointments?: No Do you have trouble paying your heating and electricity bill?: I choose not to answer this question Do you have trouble taking care of your child, family member or friend?: I choose not to answer this question Do you have trouble with day-to-day activities such as bathing, preparing meals, shopping, managing finances, etc.?: Yes Are you currently unemployed and looking for a job?: No Are you interested in more education?: No Please select the resources that you would like help with: Housing/Usp Currently or been in a relationship where the following occur: I choose not to answer THRIVE Score: 3 AUDIT C Alcohol Use Questionnaire (AUDIT-C) 1. How often do you have a drink containing alcohol?: Never 2. How many drinks containing alcohol do you have on a typical day when you are drinking?: 1 or 2 3. How often do you have six or more drinks on one occasion?: Never Total Score: 0 DIPIKA-7 AMB Questionnaire DIPIKA-7 Date DIPIKA - 7 assessed: 01/03/24 Feeling nervous, anxious, or on edge: 0 = Not at all Not being able to stop or control worryin = Not at all Worrying too much about different things: 1 = Several days Trouble relaxin = Not at all Being so restless that it is hard to sit still: 0 = Not at all Becoming easily annoyed or irritable: 1 = Several days Feeling afraid as if something awful might happen: 0 = Not at all Total DIPIKA-7 score (0-4 normal; 5-9 mild; 10-14 moderate; 15-21 severe): 2 Source: Developed by Drs. Cesar Santana, Julia Mays, Ian Shell and colleagues, with an educational nia from [employer]. Review of Systems Const Denies chills and Denies fever(s) ENT Denies vertigo, Denies dizziness and Denies sore throat Card Denies chest pain at rest, Denies chest pain with activity, Denies diaphoresis, Denies dyspnea and Reports dyspnea on exertion Resp Denies cough, Denies dyspnea, Reports dyspnea on exertion and Denies wheezing GI Denies abdominal pain, Denies melena, Denies hematochezia, Denies constipation, Denies diarrhea and Denies loose stools Denies hematuria Musc Reports numbness (left foot) and Reports stiffness Skin/Breast Details: Ulcer on left foot Neuro Denies vertigo, Denies dizziness and Reports numbness (left foot) Aller/Immun Denies wheezing Physical exam (Primary Care) Vital Signs: Last Vital Signs Pulse 92 01/10/24 09:21 BP 100/72 01/10/24 09:21 Pulse Ox 97 01/10/24 09:21 Oxygen Delivery Method Room Air 01/10/24 09:21 BMI result Body Mass Index 27.5 Tobacco/Smoking Status: Tobacco use Status Tobacco use date assessed 01/10/24 01/10/24 09:26 Patient Tobacco Use Status Current everyday Tobacco 01/10/24 09:26 Tobacco use type Cigarette 01/10/24 09:26 e-Cigarette/Vaping Use Former Use 01/10/24 09:26 Thrive Assessment: Date of Thrive Assessment Date Thrive assessed 01/03/24 01/10/24 09:26 Currently or been in a relationship where the following occur: I choose not to answer Const Other: using cane General: cooperative Orientation/consciousness: patient oriented x3 Eyes General: appearance normal, both eyes and all related structures Neck Neck: Yes no lymphadenopathy Chest Other: right upper with defib. Left upper chest with ? scar tissue/hematoma from old site Resp Effort & Inspection: normal respiratory effort Auscultation: clear to auscultation bilaterally Cardio Rate: regular rate Rhythm: regular rhythm Heart sounds: S1 normal heart sound present, S2 normal heart sound present and no murmurs GI Palpation (GI): Soft to palpation and nontender Auscultation: normal bowel sounds Skin Other: Shallow ulcer with no active drainage on 2nd MTP joint, plantar calluses noted, dry skin in both lower extremity Wounds: amputation site (left great toe, healing ) Neuro Other: no sensation to left foot with palpation. Moves toes equally. + sensation to right foot/toes General: patient oriented x3, moves all extremities, no focal motor deficits and deep tendon reflexes 2+ bilaterally Romberg Test: Negative Extrem Other: left foot, amputated big toe, healed wound to plantar aspect of first MTP joint. second MTP joint region (plantar aspect), circular open lesion, without any drainage. No active signs of infection. lateral distal region on left foot with linear wound, slightly open at ends, not currently drainage. No signs of cellulitis or spreading infection. Weak DP noted. Pt is a diabetic, Psych Affect: normal affect Attitude: cooperative Thought process: Normal thought process present Assessment and Plan Assessment & Plan (1) 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: Code(s): E11.621 - Type 2 diabetes mellitus with foot ulcer; L97.509 - Non-pressure chronic ulcer of other part of unspecified foot with unspecified severity Plan Continued on gabapentin, Lantus 25 units subcutaneously given twice a day, insulin lispro 7 units 3 times a day with meals. Patient referred to prosthetic and orthotic solution to get fitted for diabetic shoes with custom inserts on left foot. Coding Level of Care Code Est Pt Level 4 (92765) Complex EM visit Add On G2211 Diagnoses 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 E11.621; L97.509
== END 2024-01-10 10:18 | disposition home or self-care (01) ==
PROVIDERS: Visit Provider Internal Medicine
DX: E11.621 Type 2 diabetes mellitus with foot ulcer (principal); L97.509 Non-pressure chronic ulcer of other part of unspecified foot with unspecified severity
CPT/HCPCS: 99214; G2211

== ENCOUNTER 2024-01-21 09:09 | Outpatient (RCR) | payer OTHER, SELFPAY ==
--- NOTE | ~2024-01-21 | XR_ITS ---
EXAMINATION: XR FOOT, LEFT CLINICAL INFORMATION: Nonhealing wound. Osteomyelitis COMPARISON: 10/20/2023 TECHNIQUE: AP, lateral, and oblique views of the left foot. FINDINGS: Post amputation changes observed overlying the distal aspect of the first metatarsal. The overlying soft tissue demonstrates vague areas of lucency suggestive possibly of a soft tissue ulceration and/or cellulitis. No evidence for underlying bony destruction. Vascular calcifications are noted. There is a small plantar spur. XR/XR foot LT min 3V IMPRESSION: Query cellulitis or ulceration overlying the site of amputation but the underlying bony structures are intact. Electronically signed by: Montrell Swan MD 03/07/2024 08:08 AM EDT
== END 2024-06-20 12:40 | disposition admitted as inpatient to this hospital (09) ==
LOC: HO.WCC 09:09
PROVIDERS: Visit Provider Physician Assistant
DX: E11.621 Type 2 diabetes mellitus with foot ulcer (principal); L97.522 Non-pressure chronic ulcer of other part of left foot with fat layer exposed; E11.51 Type 2 diabetes mellitus with diabetic peripheral angiopathy without gangrene; E11.40 Type 2 diabetes mellitus with diabetic neuropathy, unspecified; I10 Essential (primary) hypertension; F17.210 Nicotine dependence, cigarettes, uncomplicated; Z89.412 Acquired absence of left great toe; Z79.84 Long term (current) use of oral hypoglycemic drugs; Z79.01 Long term (current) use of anticoagulants; Z79.82 Long term (current) use of aspirin; Z79.899 Other long term (current) drug therapy
CPT/HCPCS: 11042; 73630; 97597

== ENCOUNTER 2024-02-15 08:34 | Outpatient (AMB) | payer OTHER, SELFPAY ==
[2024-02-15 08:39] VITALS: BP 130/68; PULSE 86
--- NOTE | 2024-02-15 08:39 | A.OFFVIS_ITS ---
Vital Signs 02/15/24 08:39 Height 5 ft 11 in BMI Reason not done Patient refused/unable BP 130/68 Blood Pressure Location Lt brachial Position Sitting Pulse 86 Pulse Source Monitor Intake Visit Reasons: f/up pt r/s 01/16/24 appt Allergies No Known Allergies [No Known Allergies*] Allergy (Verified 01/12/24 09:35) Medication List - Last Reconciled 02/15/24 by Bakari Andrew MD acetaminophen 650 mg PO Q6H PRN amiodarone 200 mg PO DAILY aspirin (Adult Low Dose Aspirin) 81 mg PO DAILY atorvastatin 40 mg PO BEDTIME 90 days blood-glucose sensor (FreeStyle Samantha 3 Sensor device) Test blood sugar TID colchicine 0.3 mg PO DAILY [diabetic shoes with custom insert for left shoe As directed] FreeStyle Lite Strips (blood sugar diagnostic) TID testing NS gabapentin 300 mg PO TID insulin glargine (Lantus Solostar U-100 Insulin) 25 units subcut BID insulin lispro 7 units subcut TIDWM ipratropium-albuterol 0.5 mg-3 mg(2.5 mg base)/3 mL 3 mL inhalation Q6-8H PRN levalbuterol HCl 1.25 mg (3 mL) inhalation Q2H PRN melatonin 3 mg PO BEDTIME metoprolol succinate ER 100 mg PO DAILY omeprazole 20 mg PO DAILY@0630 90 days pen needle, diabetic (BD Ultra-Fine Mini Pen Needle) As directed to inject insulin 4 times per day sertraline 25 mg PO DAILY thiamine HCl (vitamin B1) 100 mg PO DAILY torsemide 20 mg PO .qod tramadol 50 mg PO Q6H PRN Ventolin HFA 90 mcg/actuation (albuterol sulfate) 2 puffs PO Q6H PRN NS HPI Comments Details: Idris comes for follow-up after November follow-up after hospitalizations. In October had to hospitalization 1 which led to remote of his ICD and reimplantation of ICD due to systemic bacteremia and vegetation attached to the atrial lead. Subsequently he was hospitalized for about a month and subsequent discharged h ome and had developed respiratory distress and was sent to [facility] due to moderate pericardial effusion and respiratory failure. Then he was then treated for diuresis and is pericardial effusion was follow closely. It was felt that pericardial effusion was probably related to the new device placement and was treated with colchicine and no interventions were performed. He had a follow-up echocardiogram January 03 here which showed still moderate pericardial effusion without any tamponade physiology. He comes for follow-up today. His ICD could not be interrogated at bedside. He said he continues to have exertional shortness of breath. However he is dealing with wound and infection pain in his left foot and as ulcer under a different area on his foot which she says looks similar to his prior wound in October then led to the hospitalization. He denies any palpitations, syncope, ICD discharge. No orthopnea, PND, leg edema. Takes all his medications. He says his blood pressure is labile with blood pressure waiting as low as systolic 100 to systolic 125 although he says that he does get orthostatic lightheadedness very easily. He has to use a cane to walk. During hospitalization his angiotensin receptor blockers were discontinued due to orthostatic hypotension. Currently takes torsemide 20 mg every other day. Does not weigh himself every day. Unfortunately continues to smoke [facility] Medical History (Updated 02/15/24 @ 09:45 by Bakari Andrew MD) Acute on chronic HFrEF (heart failure with reduced ejection fraction) History of osteomyelitis 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 Diverticulosis Tubular adenoma of colon (~2018) History of COVID-19 Nicotine dependence, cigarettes, uncomplicated Hypertensive retinopathy Microhematuria ICD (implantable cardioverter-defibrillator) in place COPD (chronic obstructive pulmonary disease) KIMANI (obstructive sleep apnea) Sleep apnea CAD (coronary artery disease) Paroxysmal atrial fibrillation (~2017) Surgical History History of amputation of left great toe History of cardiac cath History of ankle surgery History of implantable cardiac defibrillator (ICD) History of colonoscopy History of heart artery stent History of cardiac radiofrequency ablation History of cardioversion History of esophagogastroduodenoscopy History of umbilical hernia History of inguinal hernia Family History Father Atherosclerosis Mother Cerebral aneurysm Maternal Grandmother Unknown family medical history Mother Cerebral hemorrhage Father Coronary artery disease Social History Household Members: None Housing: House Are you a primary lead care manager to a significant other at home: No Do you presently have visiting nurse or other home services: Yes Alcohol intake: former Patient Tobacco Use Status: Current everyday Tobacco user Tobacco use type: Cigarette Cigarette Packs Per Day: 1 Years Smoked: (current smoker - onset 14yo, 1ppd x 43yrs, 40pyh) e-Cigarette/Vaping Use: Former Use Second Hand Smoke Exposure: Yes Advance Directives Date on File: 07/09/21 service: No Current occupational status: unemployed and disabled Current occupation: rt handed Cognitive needs: No Hearing needs: No Vision needs: Yes Review of Systems Const Denies weakness ENT Denies dizziness Card Denies chest pain, Denies chest pain with activity, Denies syncope, Denies rapid heart rate, Denies pedal edema, Denies edema, Denies leg edema, Denies lightheadedness, Denies palpitations, Denies dyspnea, Denies dyspnea on exertion and Denies orthopnea Resp Denies cough, Denies dyspnea and Denies dyspnea on exertion GI Denies hematochezia and Denies change in stool character Musc Denies abnormal gait, Denies muscle cramps, Denies muscle weakness, Denies numbness, Denies radiating pain into limb and Denies tingling Neuro Denies abnormal gait, Denies dizziness, Denies syncope, Denies numbness, Denies tingling and Denies weakness Endo Denies palpitations Physical Exam Vital Signs: Last Vital Signs Pulse 86 02/15/24 08:39 BP 130/68 02/15/24 08:39 Const General: cooperative, comfortable, alert and awake Nutritional Appearance: average body habitus and other (Loss of muscle mass) Orientation/consciousness: patient oriented x3 Limitations: ambulation with cane Neck Neck: Yes trachea midline, Yes supple and Yes no JVD Resp Effort & Inspection: normal respiratory effort Auscultation: no crackles, no wheezes and diminished lung sounds Cardio Jugular venous distension: no JVD Palpation: abnormal PMI displaced PMI Rate: regular rate Rhythm: abnormal rhythm with ectopic beats Heart sounds: S1 normal heart sound present, S2 normal heart sound present, no click, no gallops, no murmurs and no rubs GI Auscultation: normal bowel sounds Skin General skin exam: no rashes or lesions noted Neuro General: patient oriented x3 and no focal motor deficits Extrem General: Yes no clubbing, cyanosis or edema Office Procedures EKG Details: EKG shows sinus rhythm with occasional PVCs with left posterior fascicular block with poor R-wave progression most consistent with possible anterior infarct [id number], Complete Assessment & Plan Assessment & Plan (1) Heart failure with reduced ejection fraction: Code(s): I50.20 - Unspecified systolic (congestive) heart failure Category: Medical Plan: Heart failure with reduced ejection fraction with persistent severe LV systolic dysfunction by echocardiogram in December. Clinically today appears to be euvolemic and well compensated. Can not uptitrate neurohormonal modulation due to persistent symptoms orthostatic hypotension some recorded blood pressure on the lower side with the risk of hypotension syncope. Continue metoprolol therapy. Continue current diuretic dose. Continue metoprolol as well for neurohormonal modulation. Complete smoking cessation was advised. Continue treatment for his underlying COPD. Daily weight monitoring avoidance of salt loading was discussed. Additional diuretics as need be. Continue rhythm control approach. Overall prognosis is guarded. (2) Paroxysmal atrial fibrillation: Onset Date: ~2016 Comment: (on eliquis, s/p ablation) Code(s): I48.0 - Paroxysmal atrial fibrillation Category: Medical Plan: Paroxysmal atrial fibrillation which has remained suppressed on amiodarone therapy. Has done very well with rhythm control approach. Continue rhythm control approach. Currently off oral anticoagulation for unclear reasons. Will need to check into that. Will check renal function and evaluate for pericardial effusion. Avoidance of stimulants was discussed. Currently on low-dose aspirin therapy. (3) Pericardial effusion: Code(s): I31.39 - Other pericardial effusion (noninflammatory) Category: Medical Plan: Pericardial effusion which has remained moderate after hospitalization. Will follow-up limited echocardiogram near future to see if there is improvement. Most likely suspected to be due to pericarditis related to device implantation. Currently on colchicine therapy. If pericardial effusion is improving, will need to consider oral anticoagulation therapy. Possible reason for him not to have oral anticoagulation therapy. If this is getting larger, would require pericardiocentesis and/or pericardial window. This was discussed with him. (4) CAD (coronary artery disease): Code(s): I25.10 - Atherosclerotic heart disease of cheesh-na coronary artery without angina pectoris Category: Medical Plan: CAD status post prior stenting but with diffuse peripheral vascular disease. Unfortunately continues to smoke. Strong lead advised to stop smoking to reduce progressive atherosclerotic disease. Blood pressure is currently well optimized can not further uptitrate medications due to his labile blood pressure. Continue high-intensity statin therapy. Target goal hemoglobin A1c less than 7%. (5) ICD (implantable cardioverter-defibrillator) in place: Code(s): Z95.810 - Presence of automatic (implantable) cardiac defibrillator Category: Medical Plan: ICD in place, recently reimplanted for infection with dual-chamber [employer] ICD in place. Will obtain his remote monitoring as well as schedule him for a follow-up visit with [employer] rep. Will follow with him in 4 weeks time at the next [employer] pacemaker clinic visit. Greater than 40 minutes was spent in managing his complex care. Orders: Orders [facility] Today I31.39 - Other pericardial effusion (noninflammatory) Magnesium Today I50.20 - Unspecified systolic (congestive) heart failure Complete Blood Count no Diff Today I50.20 - Unspecified systolic (congestive) heart failure Basic Metabolic Panel Today I50.20 - Unspecified systolic (congestive) heart failure Coding Level of Care Code Est Pt Level 5 (48825) Diagnoses Heart failure with reduced ejection fraction I50.20 Paroxysmal atrial fibrillation I48.0 Pericardial effusion I31.39 CAD (coronary artery disease) I25.10 ICD (implantable cardioverter-defibrillator) in place Z95.810 CPT Codes EKG - CPT: 89811-[id number], Complete ([id number])
== END 2024-02-15 09:17 | disposition home or self-care (01) ==
PROVIDERS: Visit Provider Internal Medicine Cardiovascular Disease
DX: I50.20 Unspecified systolic (congestive) heart failure (principal); I48.0 Paroxysmal atrial fibrillation; I31.39 Other pericardial effusion (noninflammatory); I25.10 Atherosclerotic heart disease of native coronary artery without angina pectoris; Z95.810 Presence of automatic (implantable) cardiac defibrillator; I49.3 Ventricular premature depolarization; I44.5 Left posterior fascicular block
CPT/HCPCS: 93010; 99215

== ENCOUNTER → 2024-02-15 08:34 | Outpatient (BNVA) | payer OTHER, SELFPAY | PROVIDERS: Visit Provider Internal Medicine Cardiovascular Disease | DX: I50.20 Unspecified systolic (congestive) heart failure (principal); I48.0 Paroxysmal atrial fibrillation; I31.39 Other pericardial effusion (noninflammatory); I25.10 Atherosclerotic heart disease of native coronary artery without angina pectoris; Z95.810 Presence of automatic (implantable) cardiac defibrillator | CPT/HCPCS: 93005; 99212 ==

== ENCOUNTER 2024-02-24 11:18 | Outpatient (REF) | payer OTHER, SELFPAY ==
[2024-02-24 13:10] LABS: MANUAL DIFF FLAG NO
[2024-02-24 13:12] LABS: Appearance Urine Clear; Color Urine Yellow; Glucose Urine UA >=1000 mg/dL (Negative); Leukocyte Esterase Urine Negative (Negative); Nitrite Urine Negative (Negative); UMIC TRIGGER UACC YES; Urine Blood Negative (Negative); Urine Ketones Negative (Negative); Urine Protein Negative (Neg-Trace)
[2024-02-24 13:21] LABS: Basophils Absolute Auto 0.1 X10*3/uL (0.0-0.2); Basophils Percent Auto 0.8 % (0-2); Eosinophils Absolute Auto 0.2 X10*3/uL (0.0-0.4); Eosinophils Percent Auto 1.7 % (0-4); Hematocrit 46.5 % (42.0-52.0); Hemoglobin 13.3 g/dl (14.0-18.0); Imm Gran Abs Auto 0.03 X10*3/uL (0.00-0.03); Imm Gran Pct Auto 0.3 % (0.0-0.4); Lymphocytes Absolute Auto 1.9 X10*3/uL (1.2-4.9); Lymphocytes Percent Auto 21.4 % (20-40); Mean Corpuscular HGB Conc 28.6 g/dl (31.0-36.0); Mean Corpuscular Hemoglobin 23.8 pg (27.0-33.0); Mean Corpuscular Volume 83.3 fL (80.0-98.0); Mean Platelet Volume 9.5 fL (9.4-12.4); Monocytes Absolute Auto 0.5 X10*3/uL (0.1-1.2); Monocytes Percent Auto 5.6 % (2-11); Neutrophils Absolute Auto 6.3 x10*3/uL (2.0-8.3); Neutrophils Percent Auto 70.2 % (45-73); Platelet Count 431 X10*3/uL (160-400); Red Blood Count 5.58 X10*6/uL (4.60-5.80)
[2024-02-24 13:27] LABS: Bacteria Urine None Seen (None Seen); Hyaline Casts Urine 0-2 /LPF (0-2); RBC Urine 0-2 /HPF (0-2); Squamous Epithelial Cell Urine 0-2 /HPF (0-2); WBC Urine 0-5 /HPF (0-5)
[2024-02-24 13:59] LABS: Anion Gap 13 (12-20); Blood Urea Nitrogen 11 mg/dL (9-16); Calcium 9.6 mg/dL (8.4-10.2); Carbon Dioxide 29 mmol/L (22-29); Chloride 103 mmol/L (96-108); Estimated Glomerular Filt Rate > 60; Glucose Random 252 mg/dL (60-115); Magnesium 2.5 mg/dL (1.6-2.6); Potassium 4.4 mmol/L (3.3-5.1); Sodium 141 mmol/L (135-145); TSH reflex Free T4 1.06 uIU/mL (0.32-4.0)
[2024-02-24 14:02] LABS: Prostate Specific Antigen 0.38 ng/mL (<0.05-4.0)
[2024-02-24 14:03] LABS: Prostate Specific Antigen Scr 0.37 ng/mL (<0.05-4.0)
[2024-02-24 14:04] LABS: Creatinine Urine 9.42 mg/dL; Microalbumin Urine < 5.0 mg/L
[2024-02-24 14:04] LABS: Estimated Average Glucose 163 mg/dL; Hemoglobin A1c % 7.3 % (<6.0)
== END 2024-02-24 11:19 | disposition home or self-care (01) ==
LOC: HO.HMGCLDS 11:18
PROVIDERS: PCP Nurse Practitioner Family; Referring Provider Internal Medicine Cardiovascular Disease; Visit Provider Nurse Practitioner Family
DX: Z00.01 Encounter for general adult medical examination with abnormal findings (principal); I50.20 Unspecified systolic (congestive) heart failure; N40.0 Benign prostatic hyperplasia without lower urinary tract symptoms; Z12.5 Encounter for screening for malignant neoplasm of prostate; D64.9 Anemia, unspecified
CPT/HCPCS: 36415; 80048; 81001; 82043; 82570; 83036; 83735; 84153; 84443; 85025; 85027

== ENCOUNTER → 2024-03-06 13:00 | Outpatient (BNVA) | payer OTHER, SELFPAY | PROVIDERS: PCP Nurse Practitioner Family; Visit Provider Nurse Practitioner Family ==

== ENCOUNTER 2024-03-06 13:59 | Outpatient (AMB) | payer OTHER, SELFPAY ==
--- NOTE | 2024-03-07 13:10 | MHC.OFFVIS ---
Intake Visit Reasons: medtronic check Allergies No Known Allergies [No Known Allergies*] Allergy (Verified 01/12/24 09:35) [facility] Medical History (Updated 02/24/24 @ 14:06 by Phi Crisostomo, [facility]) Acute on chronic HFrEF (heart failure with reduced ejection fraction) History of osteomyelitis 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 Diverticulosis Tubular adenoma of colon (~2018) History of COVID-19 Nicotine dependence, cigarettes, uncomplicated Hypertensive retinopathy Microhematuria ICD (implantable cardioverter-defibrillator) in place COPD (chronic obstructive pulmonary disease) KIMANI (obstructive sleep apnea) Sleep apnea CAD (coronary artery disease) Paroxysmal atrial fibrillation (~2016) Surgical History History of amputation of left great toe History of cardiac cath History of ankle surgery History of implantable cardiac defibrillator (ICD) History of colonoscopy History of heart artery stent History of cardiac radiofrequency ablation History of cardioversion History of esophagogastroduodenoscopy History of umbilical hernia History of inguinal hernia Family History Father Atherosclerosis Mother Cerebral aneurysm Maternal Grandmother Unknown family medical history Mother Cerebral hemorrhage Father Coronary artery disease Social History Household Members: None Housing: House Are you a primary child care director to a significant other at home: No Do you presently have visiting nurse or other home services: Yes Alcohol intake: former Patient Tobacco Use Status: Current everyday Tobacco user Tobacco use type: Cigarette Cigarette Packs Per Day: 1 Years Smoked: (current smoker - onset 14yo, 1ppd x 43yrs, 40pyh) e-Cigarette/Vaping Use: Former Use Second Hand Smoke Exposure: Yes Advance Directives Date on File: 07/09/21 service: No Current occupational status: unemployed and disabled Current occupation: rt handed Cognitive needs: No Hearing needs: No Vision needs: Yes Office Procedures Cardiac Device Check Cardiac Device Check Details: Dual-chamber Medtronic ICD in place, programmed in MVP mode without rate response at 60 beats per minute. Multiple episodes of atrial fibrillation noted with total burden of 3.4%. Atrial ventricular pacing thresholds adequate. Atrial and ventricular sensing is adequate. Pacing and shock lead impedance is stable. Battery life is excellent 33627-MS Cardiac Device Check, dual lead implantable defibrillator Procedure code (CPT) selection complete Assessment & Plan Assessment & Plan (1) ICD (implantable cardioverter-defibrillator) in place: Code(s): Z95.810 - Presence of automatic (implantable) cardiac defibrillator Category: Medical Plan: See above Coding Level of Care Code Procedure Only Diagnoses ICD (implantable cardioverter-defibrillator) in place Z95.810 CPT Codes Cardiac Device Check - Cardiac Device 5: 51849-IP Cardiac Device Check, dual lead implantable defibrillator ([id number])
== END 2024-03-06 14:00 | disposition home or self-care (01) ==
LOC: HO.HCS 13:59
PROVIDERS: PCP Nurse Practitioner Family; Visit Provider Internal Medicine Cardiovascular Disease
DX: I48.91 Unspecified atrial fibrillation (principal); Z95.810 Presence of automatic (implantable) cardiac defibrillator
CPT/HCPCS: 93283

== ENCOUNTER → 2024-03-16 14:42 | Outpatient (REF) | payer OTHER, SELFPAY ==
--- NOTE | 2024-03-16 14:48 | CA_ITS ---
Transthoracic Echocardiogram Patient (Last, First, Middle): Jr Cruz, Gender: Male Date of : 1965 Age: 58 Procedure Date: 03/16/2024 Procedure Type: Transthoracic Echocardiogram Location: OP Height: 180. cm Weight: 86.18 kg BSA: 2.06 m2 Heart Rate: 82 bpm BP: 110 / 65 mmHg Heating And Cooling Systems Engineer: OZZIE Referring MD: Bakari Andrew MD Floor And Wall Applier Liquid: Bakari Anrdew MD Symptoms: I31.39 - Other pericardial effusion (noninflammatory) Study Quality: Fair w/Contrast. Limited by order ECG Rhythm: Sinus Conclusions: - 1. Mildly dilated left ventricle with moderate to severe LV systolic dysfunction with LVEF of 30 35% with restrictive filling pattern 2. Small to moderate pericardial effusion without clear evidence of tamponade Findings Procedure Information Contrast agent, definity, is being given per protocol without apparent complications. Left Ventricle Mildly increased left ventricular cavity size. The left ventricular systolic function is moderate to severely decreased. The visually estimated ejection fraction is between 30-35%. Spectral Doppler is indicative of a restrictive filling pattern. Pericardium/Pleural There is a small pericardial effusion. The inferior vena cava is normal in size with preserved respiratory variability. Prior Study Comparison Changes noted compared to prior study dated: 01/04/2024. LV ejection fraction has marginally improved. Pericardial effusion Mibi marginally reduced as well Measurements 2D Linear Measurements IVSd: 1.15 0.6-0.9/0.6-1.0 cm LVIDd: 5.91 3.9-5.3/4.2-5.9 cm LVIDd Index: 2.87 2.4-3.2/2.2-3.1 cm/m2 LVIDs: 5.09 2.0-3.6 cm LVPWd: 1.02 0.7-1.1 cm LV Mass: 333.93 67-162/88-224 g LV Mass Index: 162.10 43-95/49-115 g/m2 LVOT Diam: 2.40 3.0+(-)1.3 cm 2D Systolic Function EF 4C: 31.50 >55% EF 2C: 33.20 >55% EF BiP: 32.60 >55% Mitral Valve MV Pk E: 1.08 MV PK A: 0.44 MV Decel Time: 145.00 E/A: 2.40 E'Lateral: 8.16 E'Medial: 4.03 E/E' Med: 26.80 E/E' Lat: 13.20 PHT: 43.00 MVA PHT: 5.12 Decel [place]: 7.40 LVOT LVOT Pk Rashawn: 0.86 LVOT Mn Rashawn: 0.61 LVOT VTI: 0.15 LVOT Pk Grad: 3.00 LVOT Mn Grad: 2.00 LVOT Diam: 2.40 LVOT Area: 4.52 Diastolic Function MV Pk E: 1.08 MV Pk A: 0.44 E/A: 2.40 E'Medial: 4.03 E/E' Med: 26.80 E' Laterial: 8.16 E/E' Lat: 13.20 Updated in Other Vendor System with Status of Final Bakari Andrew MD electronically signed on 03/17/2024 10:11:43 AM with status of Final
== END ==
LOC: HO.CARD 14:42
PROVIDERS: PCP Nurse Practitioner Family; Visit Provider Internal Medicine Cardiovascular Disease
DX: I31.39 Other pericardial effusion (noninflammatory) (principal)
CPT/HCPCS: 93308; Q9957

== ENCOUNTER → 2024-03-16 14:48 | Outpatient (BNV) | payer OTHER, SELFPAY | PROVIDERS: PCP Nurse Practitioner Family; Visit Provider Internal Medicine Cardiovascular Disease | DX: I31.39 Other pericardial effusion (noninflammatory) (principal); I51.89 Other ill-defined heart diseases | CPT/HCPCS: 93308; 93321; 93325 ==

== ENCOUNTER 2024-03-23 11:35 | Inpatient (IN) | payer OTHER, SELFPAY ==
[2024-03-23] VITALS (11 sets, daily range): BP systolic 111–138; BP diastolic 62–78; PULSE 80–122; RESP 18–27; TEMP 36.3–37.4; O2SAT 94–98; BMI 28.3
--- NOTE | ~2024-03-23 | XR_ITS ---
EXAMINATION: CHEST AND ABDOMINAL RADIOGRAPHS CLINICAL INDICATION: Left-sided rib pain and left flank pain, post fall. COMPARISON: Chest radiograph 03/28/2024. CT abdomen/pelvis 03/28/2024. TECHNIQUE: Portable AP view of the chest. Portable supine frontal views of the abdomen. FINDINGS: Right-sided pacer/AICD with leads projecting over the expected location of the right atrium and right ventricle. Stable enlargement of the cardiomediastinal silhouette. Numerous EKG leads overlie the chest. Increased central bronchovascular thickening and diffuse interstitial markings compared to recent prior. Similar to slightly increased trace amount of right-sided pleural fluid. No consolidation. No pneumothorax. No displaced rib fractures. Nonobstructive bowel gas pattern. Moderate degree of stool burden. Extensive vascular calcifications including in the vas deferens that could be seen with diabetes. Anasarca. Surgical clips overlying the right lower quadrant and right inguinal region. Joshi catheter. No displaced osseous fractures. XR/XR KUB IMPRESSION: 1. No displaced osseous fractures. 2. Similar to slightly increased interstitial markings and trace amount of right-sided pleural fluid. Findings are nonspecific and could be associated with interstitial edema. 3. Nonobstructive bowel gas pattern. Moderate stool burden. Electronically signed by: Lenora Gomez MD 03/30/2024 04:36 PM EDT
--- NOTE | ~2024-03-23 | XR_ITS ---
EXAMINATION: XR CHEST CLINICAL INFORMATION: Line placement COMPARISON: AP portable chest 03/30/2024 TECHNIQUE: AP upright portable view of the chest was obtained. 12:39 PM FINDINGS: Right-sided pacer/AICD with leads projecting over the expected location of the right atrium and right ventricle is stable. New left PICC line terminates in the superior vena cava. No pneumothorax. Again noted are central bronchovascular thickening and diffuse interstitial markings similar to the prior study on the left. No left pleural effusion. The right costophrenic angle is obscured by overlying lines. Probable decrease fluid in the minor fissure and slight increased patchy opacity at the right lung base. The cardiomediastinal silhouette is stable. No acute bony abnormalities. XR/XR chest 1V IMPRESSION: 1. New left PICC line terminates in the superior vena cava. 2. No pneumothorax. 3. Probable decrease in fluid in the minor fissure and slight increased patchy opacity at the right lung base. Electronically signed by: Roopa Beltrán MD 04/03/2024 01:23 PM EDT
--- NOTE | ~2024-03-23 | XR_ITS ---
EXAMINATION: XR CHEST CLINICAL INFORMATION: Shortness of breath. COMPARISON: Chest x-ray dated March 23, 2024. Chest CT dated November 21, 2023. TECHNIQUE: Portable AP view of the chest was obtained. FINDINGS: The study is limited by portable technique and low lung volumes. The pulmonary veins may be mildly prominent in their nondependent portions, raising the possibility of pulmonary venous hypertension. No acute infiltrate, effusion, or pneumothorax is appreciated. Nodular densities projecting over the upper lung haddad probably represent the ends of the second ribs. The cardiac silhouette is suboptimally evaluated, probably mildly enlarged. The tips of right subclavian pulse generator device leads project over the right atrium and right ventricle. Mild degenerative changes of the spine. XR/XR chest 1V IMPRESSION: Findings as above. Electronically signed by: Ash Berg MD 03/28/2024 11:14 AM EDT
--- NOTE | ~2024-03-23 | IR_ITS ---
CLINICAL HISTORY: Patient requires dialysis. The patient presents to interventional radiology for placement of a non-tunneled central venous catheter for hemodialysis. PROCEDURES: 1. Real-time ultrasound-guided access into the right internal jugular vein after documentation of selected vessel patency, and permanent imaging storing in the patient record. 2. Placement of a 12.0 fr 16 cm non-tunneled, triple-lumen hemodialysis catheter. Clinician: Sen Yoder PA-C MEDICATIONS: -Lidocaine 1% 10 mL SQ. -For additional details, please see nursing flowsheet. COMPLICATIONS: None. ESTIMATED BLOOD LOSS: <5 ml SPECIMENS: None FLUOROSCOPY TIME: 1.6 min PROCEDURE NOTE: The procedure, risks, benefits, and alternatives were carefully explained to patient, and written informed consent was obtained. The patient was placed supine on the fluoroscopy table. A timeout was performed. The right neck and chest was prepped and draped in usual sterile fashion. Local anesthesia was administered to the access site with lidocaine. Under ultrasound guidance, the right internal jugular vein was accessed with a 4 Fr micropuncture set. A 0.035 in wire was advanced into the IVC. The tract in the vein was serially dilated. Over the wire, a 12.0 fr 16 cm non-tunneled, triple-lumen hemodialysis catheter was advanced, with the tip located at the cavoatrial junction. The wire was removed. The catheter was tested, flushed, and sutured to the skin. A permanent fluoroscopic image of the chest was saved to PACS. The catheter ports were packed with heparin per routine protocol. The patient was stable after the procedure and was transferred back to the intensive care unit. There were no immediate complications. FINDINGS: 1. Patent right internal jugular vein. 2. Placement of a non-tunneled, triple-lumen hemodialysis catheter as above. 3. Catheter flushes and aspirates very well with a 10 mL syringe. No pneumothorax. IR/IR cvc insert non tunnel IMPRESSION: Placement of a non-tunneled hemodialysis catheter in the right internal jugular vein. PLAN: -The catheter may be used immediately. This procedure was performed by Sen Yoder PA-C, and directly supervised by Dr. Roe. Electronically signed by: Chucho Roe MD 04/06/2024 01:52 PM EDT
--- NOTE | ~2024-03-23 | XR_ITS ---
EXAMINATION: XR FOOT, LEFT CLINICAL INFORMATION: Foot pain. COMPARISON: Left foot February 04, 2024 TECHNIQUE: AP, lateral, and oblique views of the left foot. FINDINGS: Soft tissue ulceration of the plantar side of foot near metatarsal phalangeal joint area. There is soft tissue gas throughout the forefoot mostly of the dorsum of the foot extending toward the ankle joint. There is soft tissue swelling of the second toe with gas in the soft tissues around the proximal phalanges. Patient's had a prior amputation of the great toe through the distal shaft of the first metatarsal. No acute bone abnormality. No bone destruction or abnormal periosteal reaction. No radiographic evidence for osteomyelitis. Small plantar calcaneal spur. Small vessel calcifications around the ankle and hindfoot. XR/XR foot LT min 3V IMPRESSION: 1. Soft tissue ulceration of the plantar side of foot near the metatarsophalangeal joint area. 2. Soft tissue gas throughout the forefoot mostly of the dorsum of the foot extending toward the ankle joint. 3. Soft tissue swelling of the second toe with gas in the soft tissues around the proximal phalanges. 4. No radiographic evidence for osteomyelitis. Electronically signed by: Mansoor Perez MD 03/23/2024 03:01 PM EDT
--- NOTE | ~2024-03-23 | IR_ITS ---
Permacath removal Patient presents with a tunneled dialysis catheter. Patient no longer requires dialysis. Referring physician requests removal. The right chest was prepped and draped in routine sterile fashion. 1% lidocaine was used for local anesthesia. Using blunt dissection, the tunneled dialysis catheter was removed from the chest wall without complication. After hemostasis was obtained, a dry sterile dressing was applied. Patient tolerated the procedure well. IR/IR cvc remov tunnel wo prt/set up mechanic Impression: Permacath removal This procedure was performed by Sen Yoder PA-C and supervised by Dr. Roe Electronically signed by: Chucho Roe MD 05/11/2024 01:29 PM [facility]
--- NOTE | ~2024-03-23 | US_ITS ---
EXAMINATION: US NONINVASIVE ASSESSMENT OF THE LEFT LOWER EXTREMITY WITH ARTERIAL DUPLEX CLINICAL INFORMATION: Cold left foot, diabetic foot ulcer COMPARISON: 03/29/2023 TECHNIQUE: Duplex Doppler techniques with waveform analysis and measurement of velocities in the common femoral, profunda femoris, superficial femoral, popliteal and tibial arteries were performed. Technically challenging exam due to patient motion FINDINGS: There are delayed arterial upstroke suggesting inflow disease. LEFT LOWER EXTREMITY DUPLEX ULTRASOUND: Common femoral artery: 122 cm/s. Diastolic flow reversal: Triphasic Profunda femoris artery: 79 cm/s. Diastolic flow reversal: Triphasic Superficial femoral artery (proximal): 118 cm/s. Diastolic flow reversal: Triphasic Superficial femoral artery (mid): 83 cm/s. Diastolic flow reversal: Biphasic Superficial femoral artery (distal): 57 cm/s. Diastolic flow reversal: Triphasic Popliteal artery: 47 cm/s Diastolic flow reversal: Triphasic Posterior tibial artery: 11 cm/s Diastolic flow reversal: Monophasic US/US arterial duplex LE LT IMPRESSION: There are delayed arterial upstroke suggesting inflow disease. There is monophasic flow in the posterior tibial artery. Electronically signed by: Cesar Llamas MD 03/25/2024 11:48 AM EDT
--- NOTE | ~2024-03-23 | CT_ITS ---
EXAMINATION: CT HEAD WITHOUT CONTRAST CT CERVICAL SPINE WITHOUT CONTRAST CLINICAL INFORMATION: Status post fall. Head trauma. COMPARISON: None TECHNIQUE: CT of the head and cervical spine were performed without intravenous contrast. Multiplanar reformats were rendered and reviewed. This CT examination was performed using dose optimization techniques as appropriate, variously including the following: *Automated exposure control *Adjustment of mA and/or kV according to patient size (this includes techniques or standardized protocols for targeted exams where dose is matched to indication/reason for exam; i.e. extremities or head) *Use of iterative reconstruction technique DLP: 1650 mGy-cm. FINDINGS: CT head: No intracranial hemorrhage, large infarction, or mass lesion is seen. No extra-axial collection is appreciated. The ventricles are normal in size and configuration without evidence of hydrocephalus. Calcification of the distal aspects of the vertebral arteries and internal carotid arteries. The visualized paranasal sinuses and mastoid air cells are clear. Deviation of the nasal septum toward the left. Cerumen within the external auditory canals. CT cervical spine: The vertebral body heights appear maintained. No cervical spine fracture is seen. The cervical alignment appears normal. Mild disc space narrowing at C3-C4, with mild bilateral neuroforaminal narrowing at this level. Calcification of the carotid bulbs. The partially imaged lung apices appear clear. Partially imaged right subclavian pulse generator device leads. CT/CT head/brain wo IV con IMPRESSION: CT head: No acute intracranial finding. CT cervical spine: No cervical spine fracture or traumatic malalignment identified. Electronically signed by: Ash Berg MD 03/29/2024 07:18 AM EDT
--- NOTE | ~2024-03-23 | XR_ITS ---
EXAMINATION: CHEST AND ABDOMINAL RADIOGRAPHS CLINICAL INDICATION: Left-sided rib pain and left flank pain, post fall. COMPARISON: Chest radiograph 03/28/2024. CT abdomen/pelvis 03/28/2024. TECHNIQUE: Portable AP view of the chest. Portable supine frontal views of the abdomen. FINDINGS: Right-sided pacer/AICD with leads projecting over the expected location of the right atrium and right ventricle. Stable enlargement of the cardiomediastinal silhouette. Numerous EKG leads overlie the chest. Increased central bronchovascular thickening and diffuse interstitial markings compared to recent prior. Similar to slightly increased trace amount of right-sided pleural fluid. No consolidation. No pneumothorax. No displaced rib fractures. Nonobstructive bowel gas pattern. Moderate degree of stool burden. Extensive vascular calcifications including in the vas deferens that could be seen with diabetes. Anasarca. Surgical clips overlying the right lower quadrant and right inguinal region. Joshi catheter. No displaced osseous fractures. XR/XR chest 1V IMPRESSION: 1. No displaced osseous fractures. 2. Similar to slightly increased interstitial markings and trace amount of right-sided pleural fluid. Findings are nonspecific and could be associated with interstitial edema. 3. Nonobstructive bowel gas pattern. Moderate stool burden. Electronically signed by: Lenora Gomez MD 03/30/2024 04:36 PM EDT
--- NOTE | ~2024-03-23 | XR_ITS ---
EXAMINATION: XR CHEST CLINICAL INFORMATION: Shortness of breath. COMPARISON: Chest radiograph dated January 03, 2024. TECHNIQUE: Frontal view of the chest was obtained. FINDINGS: The right chest wall cardiac device leads are unchanged in position. The heart is mildly enlarged. There is a right lower lobe opacity. There is a left lower lobe opacity. There is a small right pleural effusion. No pneumothorax. No acute osseous abnormality. XR/XR chest 1V IMPRESSION: Bibasilar opacities similar to that seen on the prior examination. Small right pleural effusion. Electronically signed by: Dereje Mejía DO 03/23/2024 02:35 PM EDT
--- NOTE | ~2024-03-23 | NM_ITS ---
EXAMINATION: NM RADIONUCLIDE WHITE BLOOD CELL STUDY CLINICAL INFORMATION: Left foot ulcer, diabetes. Amputation of left great toe, unable to do MRI because of pacemaker. COMPARISON: No previous labeled white cell study is available for comparison. CT of the left foot dated 03/22/2024 is available for comparison. TECHNIQUE: Initial rapid sequence images and subsequent blood pool images of the distal lower extremities in the anterior and posterior projections were obtained following the intravenous administration of 10 mCi Tc-99m Ceretec labeled autologous white cells. Planned subsequent delayed static images were canceled by because of the patient's urgent need for dialysis. FINDINGS: Initial rapid sequence images show a mild diffuse increase in flow diffusely in the visualized distal left lower extremity. This does not have a suspicious focal component. Blood pool images obtained immediately following the flow study show a mild diffuse increase in blood pool activity in the visualized left distal lower extremity. The first digit of the left foot is not visualized, consistent with the history of its amputation. No other focal abnormalities are present. NM/NM white blood scan IMPRESSION: Incomplete study. Although the flow and blood pool images show a mild diffuse increase in flow and blood pool activity in the left distal lower extremity, delayed static images were canceled and the evaluation of this study for active infection cannot be performed. Electronically signed by: Eladio Hernandez MD 03/30/2024 11:18 AM EDT
--- NOTE | ~2024-03-23 | XR_ITS ---
EXAMINATION: LEFT TIBIA AND FIBULA CLINICAL INFORMATION: Questionable foreign body in left peña. Patient needs an MRI. COMPARISON: None available. TECHNIQUE: AP and lateral views of the tibia and fibula FINDINGS: Vascular calcifications are seen. There is a chronic bridging osteophyte between the proximal metaphyses of the distal tibia and fibula. No fractures or bony destructive lesions are seen. Some air is seen in the subcutaneous tissues lateral to the knee joint. No bony destruction lesions seen in the tibia or fibula. Of note, overlying the region of what is likely the peroneal artery, there is a 6 mm long , 1mm diameter metallic structure seen which may have a portion of the catheter attached to it . Please correlate with any surgical or interventional history. XR/XR tibia fibula LT 2V IMPRESSION: 6 mm long metallic structure overlying the region of what is likely the peroneal artery. Please correlate with any surgical or interventional history. Electronically signed by: Evgeny Lema MD 03/23/2024 06:06 PM EDT
--- NOTE | ~2024-03-23 | US_ITS ---
EXAMINATION: US RETROPERITONEAL LIMITED (RENAL ONLY) CLINICAL INFORMATION: DECLAN. COMPARISON: X-ray abdomen KUB 11/22/2023. CT abdomen and pelvis 11/18/2022. Ultrasound abdomen complete 07/26/2015. TECHNIQUE: Real-time imaging of the kidneys. FINDINGS: RIGHT KIDNEY: 11.2 x 5.1 x 4.6 cm (SAG x AP x TRV). The kidney is normal in size, contour, and echogenicity. Renal cortical thickness is normal. No focal parenchymal lesions or hydronephrosis. In the mid right kidney there is a 5 x 3 x 4 mm echogenic focus. Although this could be a calculus, a vascular calcification could be seen in this same region on the prior CT (4:81). LEFT KIDNEY: 12.4 x 5.7 x 3.7 cm (SAG x AP x TRV). The kidney is normal in size, contour, and echogenicity. Renal cortical thickness is normal. No calculi or focal parenchymal lesions. No hydronephrosis. US/US renal BI IMPRESSION: A 5 mm echogenic focus in the right kidney could be a calculus or vascular calcification. There is no hydronephrosis or any other obvious cause for the patient's acute renal failure. Electronically signed by: Evgeny Lema MD 03/27/2024 09:39 PM EDT
--- NOTE | ~2024-03-23 | CT_ITS ---
EXAMINATION: CT HEAD WITHOUT CONTRAST CT CERVICAL SPINE WITHOUT CONTRAST CLINICAL INFORMATION: Status post fall. Head trauma. COMPARISON: None TECHNIQUE: CT of the head and cervical spine were performed without intravenous contrast. Multiplanar reformats were rendered and reviewed. This CT examination was performed using dose optimization techniques as appropriate, variously including the following: *Automated exposure control *Adjustment of mA and/or kV according to patient size (this includes techniques or standardized protocols for targeted exams where dose is matched to indication/reason for exam; i.e. extremities or head) *Use of iterative reconstruction technique DLP: 1650 mGy-cm. FINDINGS: CT head: No intracranial hemorrhage, large infarction, or mass lesion is seen. No extra-axial collection is appreciated. The ventricles are normal in size and configuration without evidence of hydrocephalus. Calcification of the distal aspects of the vertebral arteries and internal carotid arteries. The visualized paranasal sinuses and mastoid air cells are clear. Deviation of the nasal septum toward the left. Cerumen within the external auditory canals. CT cervical spine: The vertebral body heights appear maintained. No cervical spine fracture is seen. The cervical alignment appears normal. Mild disc space narrowing at C3-C4, with mild bilateral neuroforaminal narrowing at this level. Calcification of the carotid bulbs. The partially imaged lung apices appear clear. Partially imaged right subclavian pulse generator device leads. CT/CT cervical spine wo IV con IMPRESSION: CT head: No acute intracranial finding. CT cervical spine: No cervical spine fracture or traumatic malalignment identified. Electronically signed by: Ash Berg MD 03/29/2024 07:18 AM EDT
--- NOTE | ~2024-03-23 | CT_ITS ---
EXAMINATION: CT ABDOMEN AND PELVIS WITHOUT CONTRAST CLINICAL INFORMATION: Question of liver disease COMPARISON: Renal ultrasound 03/27/2024, CT urogram 11/18/2022 TECHNIQUE: Multidetector volumetric imaging was performed from the superior aspect of the liver through the pubic symphysis. Sagittal and coronal reformatted images were obtained on the technologist's workstation. This CT examination was performed using dose optimization techniques as appropriate, variously including the following: *Automated exposure control *Adjustment of mA and/or kV according to patient size (this includes techniques or standardized protocols for targeted exams where dose is matched to indication/reason for exam; i.e. extremities or head) *Use of iterative reconstruction technique DLP: 799 mGy-cm FINDINGS: LUNG BASES: The heart is enlarged. A single lead pacemaker is present with its tip at the RV apex. There is bibasilar atelectasis seen with a small left pleural effusion and trace right pleural fluid. Calcified pleural plaques are present at the right lung base. LIVER, GALLBLADDER, AND BILIARY TREE: The liver is mildly enlarged at 17.8 cm in cephalocaudad dimension. This measured 16.6 cm on 11/18/2022 study. No focal hepatic lesion or biliary ductal dilatation is present. The gallbladder is filled with high density bile I suspect from vicarious excretion from a prior contrast study. No evidence of calcified gallstones, gallbladder wall thickening, or obvious pericholecystic inflammatory changes. Is a very small volume of ascites with some fluid around the liver as well as some fluid in the pelvis. PANCREAS: Unremarkable. SPLEEN: Unremarkable. ADRENAL GLANDS: Unremarkable. KIDNEYS AND URETERS: The kidneys are normal in size, shape, and attenuation. No hydronephrosis, hydroureter, or calculi seen. No perinephric stranding. BLADDER: Unremarkable. GASTROINTESTINAL TRACT: The small and large bowel are unremarkable aside from the presence of colonic diverticulosis without diverticulitis. The appendix is unremarkable. ABDOMINAL WALL: Prior umbilical hernia repair. No evidence of recurrent hernia LYMPH NODES: No retroperitoneal lymphadenopathy VASCULAR: Calcific atherosclerotic changes are present in the aorta and iliofemoral vessels. There is no evidence of an abdominal aortic aneurysm. PELVIC VISCERA: The prostate and seminal vesicles are unremarkable. OSSEOUS STRUCTURES: Degenerative changes are present throughout the spine. Compression fracture superior endplate of L2 stable when compared to 11/18/2022. CT/CT abdomen pelvis wo IV con IMPRESSION: 1. There is mild hepatomegaly without discrete mass or bile duct dilatation. 2. Incidental note made of cardiomegaly, small left pleural effusion, calcified pleural plaques, colonic diverticulosis without diverticulitis and degenerative changes in the spine. Fleischner guidelines were followed. Electronically signed by: Evgeny Lema MD 03/28/2024 09:44 PM EDT RP
--- NOTE | ~2024-03-23 | CT_ITS ---
EXAMINATION: CT FOOT WITH CONTRAST, LEFT CLINICAL INFORMATION: Diabetic foot wound. Soft tissue emphysema on radiographs. COMPARISON: Most recent left foot radiographs dated 03/23/2024. TECHNIQUE: Contiguous axial CT images of the left foot were obtained following the IV administration of 85 mL Omnipaque 350. Multiplanar reformats were provided and reviewed. This CT examination was performed using dose optimization techniques as appropriate, variously including the following: *Automated exposure control *Adjustment of mA and/or kV according to patient size (this includes techniques or standardized protocols for targeted exams where dose is matched to indication/reason for exam; i.e. extremities or head) *Use of iterative reconstruction technique. DOSE: 191 mGy-cm FINDINGS: Redemonstration of a first metatarsal head and first phalangeal resection. Soft tissue ulceration along the plantar aspect of the second metatarsophalangeal joint measuring up to 2.1 x 1.0 cm (AP x ML). There is adjacent skin thickening with subcutaneous edema and enhancement. Peripherally enhancing, complex fluid extending deep to the second metatarsophalangeal joint, which could represent phlegmonous change or early abscess formation. There is soft tissue swelling/edema with extensive soft tissue emphysema adjacent to the second phalanx and extending along the dorsum of the forefoot and to the level of the distal tibia. Findings are concerning for necrotizing fasciitis. No additional organized fluid collection or abscess formation. No cortical erosion or periosteal reaction; however, early osteomyelitis can be occult on CT examination and cannot be excluded. No acute fracture or dislocation. No concerning lytic or blastic osseous lesion. No talar osteochondral lesion. The ankle mortise is maintained. Small plantar calcaneal spur. The visualized flexor and extensor tendons are grossly intact; however, evaluation is limited on CT examination. Atherosclerotic calcifications. CT/CT foot LT w IV con IMPRESSION: 1. Synovitis with soft tissue ulceration along the plantar aspect of the second metatarsophalangeal joint measuring up to 2.1 x 1.0 cm. Adjacent skin thickening with subcutaneous edema and enhancement. Peripherally enhancing, complex fluid extending deep to the second metatarsophalangeal joint, which could represent phlegmonous change or early abscess formation. 2. Soft tissue swelling/edema with extensive soft tissue emphysema adjacent to the second phalanx and extending along the dorsum of the forefoot to the level of the distal tibia. Findings are concerning for necrotizing fasciitis. 3. No cortical erosion or periosteal reaction; however, early osteomyelitis can be occult on CT examination and cannot be excluded. MRI could help further evaluate for acute osteomyelitis if clinically indicated. Electronically signed by: hSin Siddiqui MD 03/24/2024 09:06 AM EDT RP
--- NOTE | 2024-03-23 11:41 | ED_ITS ---
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 Patient reports waking up this morning to a sharp pain in his chest followed by increasing SOB. He states that he took multiple puffs of his inhaler at home with no relief. Patient is not on home oxygen, and smoke cigarettes daily. Patient states that he had his left big toe amputated in August due to a diabetic foot ulcer, but has since developed another ulcer on the same foot. 9/10 foot pain with worsening swelling, redness and foul smelling drainage. Checks his sugars daily and reports they have been in the 100's over the past few days. Takes long acting insulin at night. Patient reports that he has not been to the wound clinic in 2 weeks. Endorses chills, diarrhea x2 days. Denies fevers, n/v, abd pain. EMS found the patient tachypneic, dyspneic, wheezing but not hypoxic. Was given breathing treatment on the way. Sugar was 461. MD elicited complaint: shortness of breath Pertinent past history: COPD, congestive heart failure and diabetes Onset (ago): hour(s) Timing: progressively worsening Severity: severe Exacerbating factors: movement Relieving factors: nothing Known history of: COPD, congestive heart failure and diabetes Associated symptoms: chest pain, wheezing and lower extremity pain Treatment prior to arrival: oxygen and bronchodilator Related Data Home oxygen amount: none Home Medications ?Medication ?Instructions ?Recorded ?Confirmed acetaminophen 325 mg tablet 650 mg PO Q6H PRN Pain, Moderate 11/18/23 02/15/24 colchicine 0.6 mg tablet 0.3 mg PO DAILY 11/18/23 02/15/24 insulin glargine 100 unit/mL (3 25 unit subcut BID 11/18/23 02/15/24 mL) subcutaneous pen (Lantus Solostar U-100 Insulin) insulin lispro 100 unit/mL 7 unit subcut TIDWM 11/18/23 02/15/24 subcutaneous solution tramadol 50 mg tablet 50 mg PO Q6H PRN Pain, Moderate 11/18/23 02/15/24 metoprolol succinate 100 mg 100 mg PO DAILY 12/20/23 02/15/24 tablet,extended release 24 hr torsemide 20 mg tablet 20 mg PO .qod 12/20/23 02/15/24 Previous Rx's ?Medication ?Instructions ?Recorded pen needle, diabetic 31 gauge x #400 ea 10/12/2209/10 (BD Ultra-Fine Mini Pen Needle) atorvastatin 40 mg tablet 40 mg PO BEDTIME 90 days #90 tabs 05/26/23 Ventolin HFA 90 mcg/actuation 2 puff PO Q6H PRN wheezing #18 10/15/23 aerosol inhaler (albuterol sulfate) grams levalbuterol HCl 1.25 mg/3 mL 1.25 mg (3 mL) inhalation Q2H PRN 11/21/23 solution for nebulization sob #1 mL diabetic shoes with custom insert #1 ea 12/31/23 for left shoe ipratropium 0.5 mg-albuterol 3 mg 3 ml inhalation Q6-8H PRN 01/23/24 (2.5 mg base)/3 mL nebulization shortness of breath or wheezing soln #180 mL amiodarone 200 mg tablet 200 mg PO DAILY #30 tabs 01/26/24 aspirin 81 mg tablet,delayed 81 mg PO DAILY #90 tabs 01/26/24 release (Adult Low Dose Aspirin) melatonin 3 mg tablet 3 mg PO BEDTIME insomnia #90 tabs 01/26/24 omeprazole 20 mg capsule,delayed 20 mg PO DAILY@0630 90 days #90 01/26/24 release caps sertraline 25 mg tablet 25 mg PO DAILY #90 tabs 01/26/24 thiamine HCl (vitamin B1) 100 mg 100 mg PO DAILY #90 tabs 01/26/24 tablet blood-glucose sensor (FreeStyle #6 ea 02/29/24 Sam[place]atha 3 Sensor device) FreeStyle Lite Strips (blood sugar #300 ea 03/11/24 diagnostic) gabapentin 300 mg capsule 300 mg PO TID #270 caps 03/12/24 Allergies Allergy/AdvReac Type Severity Reaction Status Date / Time No Known Allergies Allergy Verified 03/23/24 11:55 [No Known Allergies*] Review of Systems 2 Review of Systems: Yes all other systems are reviewed and are negative [facility] Past Medical History Medical History (Updated 03/23/24 @ 14:36 by RANI Lehman) Acute on chronic HFrEF (heart failure with reduced ejection fraction) History of osteomyelitis 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 Diverticulosis Tubular adenoma of colon (~2018) History of COVID-19 Nicotine dependence, cigarettes, uncomplicated Hypertensive retinopathy Microhematuria ICD (implantable cardioverter-defibrillator) in place COPD (chronic obstructive pulmonary disease) KIMANI (obstructive sleep apnea) Sleep apnea CAD (coronary artery disease) Paroxysmal atrial fibrillation (~2016) Surgical History History of amputation of left great toe History of cardiac cath History of ankle surgery History of implantable cardiac defibrillator (ICD) History of colonoscopy History of heart artery stent History of cardiac radiofrequency ablation History of cardioversion History of esophagogastroduodenoscopy History of umbilical hernia History of inguinal hernia Family History Family History Father Atherosclerosis Mother Cerebral aneurysm Maternal Grandmother Unknown family medical history Mother Cerebral hemorrhage Father Coronary artery disease Social History Social History Household Members: None Housing: House Are you a primary wound care physician to a significant other at home: No Do you presently have visiting nurse or other home services: Yes Alcohol intake: former Patient Tobacco Use Status: Current everyday Tobacco user Tobacco use type: Cigarette Cigarette Packs Per Day: 1 Years Smoked: (current smoker - onset 14yo, 1ppd x 43yrs, 40pyh) Smoked in Last 30 Days: No e-Cigarette/Vaping Use: Former Use Second Hand Smoke Exposure: Yes Use of substances other than those prescribed or required for medical reasons: No Advance Directives: Yes Advance Directives on File: Yes Advance Directives Date on File: 07/09/21 service: No Current occupational status: unemployed and disabled Current occupation: rt handed Cognitive needs: No Hearing needs: No Vision needs: Yes Physical Exam 2 Vital Signs: Vital Signs: Last Vital Signs Temp 99.3 F 03/23/24 15:34 Pulse 122 H 03/23/24 15:34 Resp 20 03/23/24 15:34 BP 111/66 03/23/24 15:34 Pulse Ox 98 03/23/24 15:34 O2 Del Method Nasal Cannula 03/23/24 15:34 O2 Flow Rate 4 03/23/24 15:34 BMI result Body Mass Index 28.3 Appearance: Alert. Oriented X3. Appears tachypneic and dyspneic. Talking in short sentences. Head: normocephalic, atraumatic. Eyes: Pupils equal, round and reactive to light. ENT: Pharynx normal. No tonsillar swelling or exudate. Neck: Normal inspection. Neck supple. CVS: Normal heart rate and rhythm. Pulses normal. Respiratory: Moderate respiratory distress. Expiratory wheezes and crackles bilaterally. Abdomen: Soft and nontender. Skin: Skin warm and dry. Normal skin color. Normal skin turgor. No rashes. Extremities: Moderate left lower leg edema. s/p great toe amputation. Moderate erythema, warmth, tenderness, swelling to the second and third metatarsals extending to the ventral aspect of the foot. Foul smelling deep wound at the base of the second toe on the plantar aspect of the foot with deep ulceration. Neuro/psych: Oriented X 3. No motor deficit. No sensory deficit. CN II-XII grossly intact. Normal speech and cognition. Medications Administered Discontinued Medications Generic Name Dose Route Start Last Admin Trade Name Kat PRN Reason Stop Dose Admin Acetaminophen 975 mg 03/23/24 12:50 03/23/24 13:15 Acetaminophen 325 Mg Tablet PO 03/23/24 12:51 975 mg ONCE ONE Administration Albuterol Sulfate 7.5 mg/ 0 mg 03/23/24 11:48 03/23/24 11:53 Albuterol/Ipratropium 3 ml INHALE 03/23/24 11:49 10 each ONCE ONE Administration Hydromorphone HCl 0.5 mg 03/23/24 15:20 03/23/24 15:42 Hydromorphone Hcl 0.5 Mg/0.5 Ml Syringe IVPUSH 03/23/24 15:21 0.5 mg ONCE ONE Administration Protocol Vancomycin HCl 2,000 mg in 500 mls @ 250 mls/hr 03/23/24 12:33 03/23/24 15:41 Vancomycin/Ns IV 03/23/24 14:32 Infused ONCE ONE Infusion Cefepime HCl 2 gm/ Sodium 50 mls @ 100 mls/hr 03/23/24 12:33 03/23/24 13:04 Chloride IV 03/23/24 13:02 Infused ONCE ONE Infusion Lactated Ringer's 1,000 mls @ 999 mls/hr 03/23/24 13:45 03/23/24 15:42 Lr IV 03/23/24 14:45 999 mls/hr .Q1H1M MARILEE Administration Insulin Human Lispro 10 unit 03/23/24 13:45 03/23/24 15:42 Insulin Lispro 100 Unit/Ml 3 Ml Vial SUBCUT 03/23/24 13:46 5 unit ONCE ONE Administration Morphine Sulfate 4 mg 03/23/24 12:33 03/23/24 12:47 Morphine Sulfate 4 Mg/Ml Cartridge IVPUSH 03/23/24 12:34 4 mg ONCE ONE Administration Protocol Ondansetron HCl 4 mg 03/23/24 12:33 03/23/24 12:45 Ondansetron Hcl 4 Mg/2 Ml Vial IVPUSH 03/23/24 12:34 4 mg ONCE ONE Administration Medical Decision Making Medical Decision Making MDM Narrative: 58 yo male with history of COPD, HFrEF (30%, improved from 15-20%) s/p AICD, small-moderate pericardial effusion, atrial fibrillation on Eliquis, CAD, BPH, DM2, hx left foot osteomyelitis s/p amputation and 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 On arrival to the ER he looked in moderate respiratory distress with wheezing. Concern for COPD vs. CHF exacerbation. His foot appears to have spreading cellulitis, concern for osteomyelitis. Breathing treatment, broad spectrum abx. Lab work returned with leukocytosis. His inflammatory markers were significantly elevated. X-ray did not show any evidence of acute osteomyelitis, there is gas in the soft tissues, likely from infection. No fluctuance on examination to suggest drainable abscess right now. Does not appear to be a necrotizing wound at this time. His lactic acid was 3.9. He had no other signs of organ dysfunction. He was hyperglycemic 406 without any anion gap. He was treated with 1 L of IV fluids given his significant heart failure history. Vanco and cefepime were given. in an out of rapid afib. BP stable. continues to have pain. additional dose of IV narcotics ordered for 9/10 pain. Patient to be admitted to the hospital for further management. Patient updated on plan of care Differential Diagnosis Differential Diagnoses: The differential diagnosis associated with the presentation includes COPD exacerbation, CHF exacerbation, cellulitis, osteomyelitis, sepsis, abscess, pneumonia Admission/Observation Consideration of admission/observation: Escalation of care including admission/observation considered Consult Healthcare Provider Management of the patient was discussed with: Hospitalist Dr. Jennifer GLEASON for admission at 15:09 Lab Data [facility] Lab Attestation statement: I reviewed the patient's lab results. Leukocytosis, worsening anemia with new microcytosis, chronic thrombocytosis, severe hyperglycemia without anion gap, normal bicarb. Normal renal function. Elevated lactic acid 03/23/24 12:27 03/23/24 13:21 Labs: Lab Results 03/23/24 03/23/24 03/23/24 Range/Units 12:18 12:27 12:28 WBC 14.9 H (4.8-10.8) X10*3/uL RBC 4.98 (4.60-5.80) X10*6/uL Hgb 11.3 L (14.0-18.0) g/dl Hct 38.3 L (42.0-52.0) % MCV 76.9 L (80.0-98.0) fL MCH 22.7 L (27.0-33.0) pg MCHC 29.5 L (31.0-36.0) g/dl RDW 18.0 H (11.0-16.0) % Plt Count 483 H (160-400) X10*3/uL MPV 9.7 (9.4-12.4) fL Immature Gran % (Auto) 0.5 H (0.0-0.4) % Neut % (Auto) 77.1 H (45-73) % Lymph % (Auto) 14.1 L (20-40) % [place] % (Auto) 7.1 (2-11) % Eos % (Auto) 0.7 (0-4) % Baso % (Auto) 0.5 (0-2) % Lymph # (Auto) 2.1 (1.2-4.9) X10*3/uL [place] # (Auto) 1.1 (0.1-1.2) X10*3/uL Eos # (Auto) 0.1 (0.0-0.4) X10*3/uL Baso # (Auto) 0.1 (0.0-0.2) X10*3/uL Abs Immat Gran (auto) 0.08 H (0.00-0.03) X10*3/uL Absolute Neuts (auto) 11.5 H (2.0-8.3) x10*3/uL Absolute Nucleated RBC 0.000 (0.0-0.012) X10*3/uL Nucleated RBC % (auto) 0.0 (0.0-0.2) /100WBC ESR 69 H (0-15) MM/HR Sodium (135-145) mmol/L Potassium (3.3-5.1) mmol/L Chloride (96-108) mmol/L Carbon Dioxide (22-29) mmol/L Anion Gap (12-20) BUN (9-16) mg/dL Creatinine (0.5-1.4) mg/dL Estim Creat Clear Calc Estimated GFR POC Glucose (60-115) mg/dL Random Glucose (60-115) mg/dL Lactic Acid (0.5-2.0) mmol/L Calcium (8.4-10.2) mg/dL Magnesium (1.6-2.6) mg/dL Total Bilirubin (0.0-1.0) mg/dL Direct Bilirubin (0.0-0.5) mg/dL AST (5-37) U/L ALT (0-40) U/L Alkaline Phosphatase (39-117) U/L Troponin I High Sens 19.8 D (<3.5-35.0) ng/L C-Reactive Protein (< or = 0.50) mg/dL B-Natriuretic Peptide 520 H (<100) pg/mL Total Protein (6.5-8.0) g/dL Albumin (3.5-5.0) g/dL Lipase (8-78) U/L Procalcitonin ng/mL Influenza Type A (PCR) NEGATIVE (Negative) Influenza Type B (PCR) NEGATIVE (Negative) RSV RNA Qual (PCR) NEGATIVE (Negative) SARS-CoV-2 RNA (RT-PCR) NEGATIVE (Negative) 03/23/24 03/23/24 03/23/24 Range/Units 13:04 13:21 15:22 WBC (4.8-10.8) X10*3/uL RBC (4.60-5.80) X10*6/uL Hgb (14.0-18.0) g/dl Hct (42.0-52.0) % MCV (80.0-98.0) fL MCH (27.0-33.0) pg MCHC (31.0-36.0) g/dl RDW (11.0-16.0) % Plt Count (160-400) X10*3/uL MPV (9.4-12.4) fL Immature Gran % (Auto) (0.0-0.4) % Neut % (Auto) (45-73) % Lymph % (Auto) (20-40) % [place] % (Auto) (2-11) % Eos % (Auto) (0-4) % Baso % (Auto) (0-2) % Lymph # (Auto) (1.2-4.9) X10*3/uL [place] # (Auto) (0.1-1.2) X10*3/uL Eos # (Auto) (0.0-0.4) X10*3/uL Baso # (Auto) (0.0-0.2) X10*3/uL Abs Immat Gran (auto) (0.00-0.03) X10*3/uL Absolute Neuts (auto) (2.0-8.3) x10*3/uL Absolute Nucleated RBC (0.0-0.012) X10*3/uL Nucleated RBC % (auto) (0.0-0.2) /100WBC ESR (0-15) MM/HR Sodium 136 (135-145) mmol/L Potassium 4.1 (3.3-5.1) mmol/L Chloride 101 (96-108) mmol/L Carbon Dioxide 28 (22-29) mmol/L Anion Gap 11 L (12-20) BUN 13 (9-16) mg/dL Creatinine 0.96 (0.5-1.4) mg/dL Estim Creat Clear Calc 94.8 Estimated GFR > 60 POC Glucose 376 H* 275 H (60-115) mg/dL Random Glucose 406 H* (60-115) mg/dL Lactic Acid 3.9 H* (0.5-2.0) mmol/L Calcium 8.6 D (8.4-10.2) mg/dL Magnesium 2.7 H (1.6-2.6) mg/dL Total Bilirubin 0.3 (0.0-1.0) mg/dL Direct Bilirubin 0.2 (0.0-0.5) mg/dL AST 40 H (5-37) U/L ALT 24 (0-40) U/L Alkaline Phosphatase 126 H (39-117) U/L Troponin I High Sens (<3.5-35.0) ng/L C-Reactive Protein 20.74 H (< or = 0.50) mg/dL B-Natriuretic Peptide (<100) pg/mL Total Protein 7.0 (6.5-8.0) g/dL Albumin 2.9 L (3.5-5.0) g/dL Lipase 29 (8-78) U/L Procalcitonin 0.12 ng/mL Influenza Type A (PCR) (Negative) Influenza Type B (PCR) (Negative) RSV RNA Qual (PCR) (Negative) SARS-CoV-2 RNA (RT-PCR) (Negative) Independent Interpretation I performed an independent interpretation of an: EKG and Plain X-Ray Interpretation: EKG with sinus rhythm, likely sinus arrhythmia with some irregularity, ventricular rate 93 beats per minute, low-voltage QRS, no ST segment elevations or depressions Chest x-ray with AICD in place, increased vascular markings compared to December, chronic trace pleural effusion in the right costophrenic angle, increased opacities in the right lower lobe Foot x-ray was significant soft tissue swelling, sq air seen, no obvious osteomyelitis Radiology Impression Discussion of test interpretation with radiology: I have reviewed the radiologist's reading. Independent Historian Clinical information obtained from an independent historian. History obtained from or confirmed by: EMS External Record Review External record reviewed: Inpatient record, Outpatient record, Prior outpatient labs and Prior outpatient radiology Tests considered The following testing was considered but not selected: CT scan of the foot with IV contrast considered - can be done inpatient vs MRI Prescription Management I considered prescription management with: Pain Medication and Antibiotic Chronic Conditions Patient?s care impacted by: Diabetes, Hypertension and Other (COPD, CHF) Social Determinants Patient?s care significantly limited by Social Determinants of Health including: Problems related to primary support group and Other Social Determinant of Health Critical Care Time Critical Care Time Critical Care Time: Yes Total Critical Care Time: 44 Attestation: I have personally provided critical care time exclusive of time spent on separately billable procedures. Time includes review of lab data, radiology results, discussion with consultants, and monitoring for potential decompensation. Intervention performed as documented. Discharge Plan Discharge Clinical Impression: Acute exacerbation of chronic obstructive airways disease Cellulitis Qualifiers: Site of cellulitis: extremity Site of cellulitis of extremity: lower extremity Laterality: left Qualified Code(s): L03.116 - Cellulitis of left lower limb Patient Disposition: Admitted As Inpatient Print Language: Mosotho
[2024-03-23] MEDS: Albuterol Sulfate 7.5 MG, Albuterol/Iprat 2.5/0.5MG 3 ML 3 ML INHALE (11:53)
--- NOTE | 2024-03-23 12:06 | ECG_ITS ---
Test Reason : SOB Blood Pressure : / mmHG Vent. Rate : 093 BPM Atrial Rate : 093 BPM P-R Int : 184 ms QRS Dur : 114 ms QT Int : 362 ms P-R-T Axes : 071 021 134 degrees QTc Int : 450 ms Sinus rhythm with occasional Premature ventricular complexes and Premature atrial complexes Low voltage QRS Nonspecific T wave abnormality Septal infarct , age undetermined Abnormal ECG When compared with ECG of 19-NOV-2023 09:53, Sinus rhythm has replaced Electronic atrial pacemaker Vent. rate has increased BY 31 BPM Referred By: Zeynep Browning Electronically Signed By:BROOKE YOUNG
[2024-03-23 12:38] LABS: MANUAL DIFF FLAG NO
[2024-03-23 12:40] LABS: Basophils Absolute Auto 0.1 X10*3/uL (0.0-0.2); Basophils Percent Auto 0.5 % (0-2); Eosinophils Absolute Auto 0.1 X10*3/uL (0.0-0.4); Eosinophils Percent Auto 0.7 % (0-4); Hematocrit 38.3 % (42.0-52.0); Hemoglobin 11.3 g/dl (14.0-18.0); Imm Gran Abs Auto 0.08 X10*3/uL (0.00-0.03); Imm Gran Pct Auto 0.5 % (0.0-0.4); Lymphocytes Absolute Auto 2.1 X10*3/uL (1.2-4.9); Lymphocytes Percent Auto 14.1 % (20-40); Mean Corpuscular HGB Conc 29.5 g/dl (31.0-36.0); Mean Corpuscular Hemoglobin 22.7 pg (27.0-33.0); Mean Corpuscular Volume 76.9 fL (80.0-98.0); Mean Platelet Volume 9.7 fL (9.4-12.4); Monocytes Absolute Auto 1.1 X10*3/uL (0.1-1.2); Monocytes Percent Auto 7.1 % (2-11); Neutrophils Absolute Auto 11.5 x10*3/uL (2.0-8.3); Neutrophils Percent Auto 77.1 % (45-73); Platelet Count 483 X10*3/uL (160-400); Red Blood Count 4.98 X10*6/uL (4.60-5.80); White Blood Count 14.9 X10*3/uL (4.8-10.8)
[2024-03-23] MEDS: ondansetron HCL 4 MG/2 ML VIAL IVPUSH (12:45)
[2024-03-23] MEDS: Morphine Sulfate 4 MG/ML CARTRIDGE IVPUSH (12:47)
[2024-03-23] MEDS: cefEPime HCl 2 GM in 0.9 % Sodium Chloride 50 ML IV (12:49)
[2024-03-23] MEDS: vancomycin/NS 2,000 MG/500 ML PLAST..BAG 250 MG IV (12:50)
[2024-03-23 13:02] LABS: B Type Natriuretic Peptide 520 pg/mL (<100); Troponin-I High Sensitivity 19.8 ng/L (<3.5-35.0)
[2024-03-23 13:08] LABS: Glucose, Whole Blood 376 mg/dL (60-115)
[2024-03-23] MEDS: Acetaminophen 325 MG TABLET 975 MG PO (13:15)
[2024-03-23 13:18] LABS: Influenza A PCR NEGATIVE (Negative); Influenza B PCR NEGATIVE (Negative); Resp Syncy Virus RNA Qual PCR NEGATIVE (Negative); SARS COV2 PCR INHOUSE NEGATIVE (Negative)
--- NOTE | 2024-03-23 13:22 | PC.NURSE ---
late charting due to patient care, patient arrives via EMS from home after girlfriend called 911 due to patient increasing work of breathing and increased pain to left lower extremity. patient with hx of COPD and CHF last EF approximately 30%, not on home O2, but has been using inhalers and nebulizers with no effect, patient arrives tachypneic in the 30s, wheezing appreciated throughout, updraft administered by EMS, patient recieved another breathing treatment from respiratory upon arrival. patient states he has been breathing like this for the last few weeks but the pain in his foot has been getting increasingly bad and he has been experiencing chills at home. patient with great left toe amputation, hx of osteomyelitis to toe, admit to icu in august at [place] for sepsis. patient with large wound appreciated to bottom of foot and redness and swelling to left foot. swelling appears to spread up left leg. patient endorses pain from foot to his knee. noted to have low grade fever of 100.0 medicated per AUG. 18g IV placed in right bicep, 20g PIV placed by EMS in left AC. patient noted to be in and out of afib rhythm, states he occasionally jumps back and forth, has pacemaker in place. blood work drawn and sent to lab. EKG completed at bedside, and patient placed on 3L NC due to saturtions dropping when at rest. initially patient 97% on room air. plan of care ongoing
[2024-03-23 13:23] LABS: Erythrocyte Sedimentation Rate 69 MM/HR (0-15)
[2024-03-23 13:43] LABS: Lactic Acid 3.9 mmol/L (0.5-2.0)
[2024-03-23 13:55] LABS: Alanine Aminotransferase 24 U/L (0-40); Albumin Level 2.9 g/dL (3.5-5.0); Alkaline Phosphatase 126 U/L (39-117); Anion Gap 11 (12-20); Aspartate Amino Transferase 40 U/L (5-37); Bilirubin Direct 0.2 mg/dL (0.0-0.5); Bilirubin Total 0.3 mg/dL (0.0-1.0); Blood Urea Nitrogen 13 mg/dL (9-16); C Reactive Protein 20.74 mg/dL (< or = 0.50); Calcium 8.6 mg/dL (8.4-10.2); Carbon Dioxide 28 mmol/L (22-29); Chloride 101 mmol/L (96-108); Creatinine Clr Calc Pharmacy 94.8; Estimated Glomerular Filt Rate > 60; Glucose Random 406 mg/dL (60-115); Lipase 29 U/L (8-78); Magnesium 2.7 mg/dL (1.6-2.6); Potassium 4.1 mmol/L (3.3-5.1); Sodium 136 mmol/L (135-145)
[2024-03-23 14:06] LABS: Procalcitonin 0.12 ng/mL
[2024-03-23 15:26] LABS: Glucose, Whole Blood 275 mg/dL (60-115)
[2024-03-23 15:27] LABS: Reflex Lactate? Lactic Acid Added
[2024-03-23] MEDS: HYDROmorphone HCl 0.5 MG/0.5 ML SYRINGE IVPUSH (15:42)
[2024-03-23] MEDS: Lactated Ringers 1,000 ML 999 ML IV (15:42)
[2024-03-23] MEDS: Insulin Lispro 100 UNIT/ML 3 ML VIAL 10 UNIT SUBCUT (15:42)
--- NOTE | 2024-03-23 16:41 | PM.IMHP ---
History of Present Illness Date of Service: 03/23/24 Attending physician on admission: Franky Rodriguez Chief Complaint: Shortness of breath, foot pain This is a 58-year-old male with complicated past medical history including history of diabetes, 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 Patient reports one-week history of shortness of breath with associated chills and intermittent dry cough. Shortness of breath primarily with exertion and associated with intermittent dizziness. Denies any recent sick contacts. Also reports redness and pain in his left foot near his left great toe amputation site for the past 3 days. In the emergency department inflammatory markers were elevated, lactic acid was elevated at 3.9. chest x-ray showed chronic changes. He was treated for acute COPD exacerbation with breathing treatments, started on broad-spectrum antibiotics for foot infection. Use also noted to be in atrial fibrillation with rapid ventricular response. A decision was made to admit him for further management of acute COPD exacerbation and diabetic foot wound infection. Review of Systems Review of Systems: Yes all other systems are reviewed and are negative Constitutional: Constitutional: Reports chills and Denies fever(s) ENT: Reports dizziness Cardiovascular: Cardiovascular: Denies palpitations and Reports dyspnea Respiratory: Respiratory: Reports cough and Reports dyspnea Gastrointestinal: Gastrointestinal: Denies abdominal pain, Denies nausea and Denies vomiting Neurologic: Reports dizziness Endocrine: Endocrine: Denies palpitations [facility] Medical History Acute on chronic HFrEF (heart failure with reduced ejection fraction) History of osteomyelitis 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 Diverticulosis Tubular adenoma of colon (~2018) History of COVID-19 Nicotine dependence, cigarettes, uncomplicated Hypertensive retinopathy Microhematuria ICD (implantable cardioverter-defibrillator) in place COPD (chronic obstructive pulmonary disease) KIMANI (obstructive sleep apnea) Sleep apnea CAD (coronary artery disease) Paroxysmal atrial fibrillation (~2017) Family History Father Atherosclerosis Mother Cerebral aneurysm Maternal Grandmother Unknown family medical history Mother Cerebral hemorrhage Father Coronary artery disease Surgical History History of amputation of left great toe History of cardiac cath History of ankle surgery History of implantable cardiac defibrillator (ICD) History of colonoscopy History of heart artery stent History of cardiac radiofrequency ablation History of cardioversion History of esophagogastroduodenoscopy History of umbilical hernia History of inguinal hernia Social History Household Members: None Housing: House Are you a primary workforce investment act career manager to a significant other at home: No Do you presently have visiting nurse or other home services: Yes Alcohol intake: former Patient Tobacco Use Status: Current everyday Tobacco user Tobacco use type: Cigarette Cigarette Packs Per Day: 1 Years Smoked: (current smoker - onset 14yo, 1ppd x 43yrs, 40pyh) Smoked in Last 30 Days: No e-Cigarette/Vaping Use: Former Use Second Hand Smoke Exposure: Yes Use of substances other than those prescribed or required for medical reasons: No Advance Directives: Yes Advance Directives on File: Yes Advance Directives Date on File: 07/09/21 service: No Current occupational status: unemployed and disabled Current occupation: rt handed Cognitive needs: No Hearing needs: No Vision needs: Yes Meds Allergies Allergy/AdvReac Type Severity Reaction Status Date / Time No Known Allergies Allergy Verified 03/23/24 11:55 [No Known Allergies*] Active Medications: Current Medications Acetaminophen (Acetaminophen 325 Mg Tablet) 650 mg PO Q6H PRN PRN Reason: Pain, Mild (Pain Scale 1-3), fever or headache Glucose (Glucose Gel 15 Gm Gel..Gram.) 15 gm PO Q15M PRN; Protocol PRN Reason: per Hypoglycemia Standing Ord. Dextrose (D10) 250 mls @ 750 mls/hr IV Q15M PRN; Protocol PRN Reason: per Hypoglycemia Standing Ord. Insulin Human Lispro (Insulin Lispro 100 Unit/Ml 3 Ml Vial) 0 unit SUBCUT QIDACHS MARILEE; Protocol Levalbuterol HCl (Levalbuterol Hcl 1.25 Mg/3 Ml Vial.Neb) 1.25 mg INHALE Q4H PRN PRN Reason: Shortness of Breath/Wheezing Levalbuterol HCl (Levalbuterol Hcl 1.25 Mg/3 Ml Vial.Neb) 1.25 mg INHALE Q6H MARILEE Melatonin (Melatonin 3 Mg Tablet) 6 mg PO BEDTIME PRN PRN Reason: Insomnia Methylprednisolone Sodium Succinate (Methylprednisolone Sod Succ 40 Mg/Ml Vial) 40 mg IVPUSH Q12H MARILEE Morphine Sulfate (Morphine Sulfate 2 Mg/Ml Cartridge) 2 mg IVPUSH Q4H PRN; Protocol PRN Reason: Pain, Severe (Pain Scale 7-10) Pharmacy Consult (Consult Rx Vancomycin Dosing) 1 each MISCELLANE DAILY PRN PRN Reason: Consult order Sodium Chloride (0.9 % Sodium Chloride Flush 3 Ml Syringe) 3 ml IVFLUSH QSHIFT [facility] Home Medications ?Medication ?Instructions ?Recorded ?Confirmed ?Last Taken ?Type acetaminophen 325 mg tablet 650 mg PO Q6H PRN Pain, Moderate 11/18/23 02/15/24 Unknown History colchicine 0.6 mg tablet 0.3 mg PO DAILY 11/18/23 02/15/24 11/16/23 History insulin glargine 100 unit/mL (3 25 unit subcut BID 11/18/23 02/15/24 11/16/23 History mL) subcutaneous pen (Lantus Solostar U-100 Insulin) insulin lispro 100 unit/mL 7 unit subcut TIDWM 11/18/23 02/15/24 11/16/23 History subcutaneous solution tramadol 50 mg tablet 50 mg PO Q6H PRN Pain, Moderate 11/18/23 02/15/24 Unknown History metoprolol succinate 100 mg 100 mg PO DAILY 12/20/23 02/15/24 Unknown History tablet,extended release 24 hr torsemide 20 mg tablet 20 mg PO .qod 12/20/23 02/15/24 Unknown History Physical Exam Vital Signs and Narrative: Vital Signs: Last Vital Signs Temp 99.3 F 03/23/24 15:34 Pulse 122 H 03/23/24 15:34 Resp 20 03/23/24 15:34 BP 111/66 03/23/24 15:34 Pulse Ox 98 03/23/24 15:34 O2 Del Method Nasal Cannula 03/23/24 15:34 O2 Flow Rate 4 03/23/24 15:34 BMI result Body Mass Index 28.3 Const: General: cooperative, alert and awake Nutritional Appearance: average body habitus Orientation/consciousness: patient oriented x3 Resp: Other: Bilateral expiratory wheezing Effort & Inspection: normal respiratory effort, able to speak in complete sentences, no respiratory distress and no use of accessory muscles Cardio: Other: Tachycardia, irregular irregular rhythm GI: Inspection: No distended Palpation (GI): Soft to palpation and nontender Skin: Other: left foot - no significant drainage. no fluctuance Neuro: General: patient oriented x3 and moves all extremities Results Labs 03/23/24 12:27 03/23/24 13:21 Labs: Laboratory Results - last 24 hr 03/23/24 03/23/24 03/23/24 12:18 12:27 12:28 MCV 76.9 L MCH 22.7 L MCHC 29.5 L RDW 18.0 H Plt Count 483 H MPV 9.7 Immature Gran % (Auto) 0.5 H Neut % (Auto) 77.1 H Lymph % (Auto) 14.1 L Kemper % (Auto) 7.1 Eos % (Auto) 0.7 Baso % (Auto) 0.5 Lymph # (Auto) 2.1 Kemper # (Auto) 1.1 Eos # (Auto) 0.1 Baso # (Auto) 0.1 Abs Immat Gran (auto) 0.08 H Absolute Neuts (auto) 11.5 H Absolute Nucleated RBC 0.000 Nucleated RBC % (auto) 0.0 ESR 69 H Anion Gap Estim Creat Clear Calc Estimated GFR POC Glucose Random Glucose Lactic Acid Calcium Magnesium Total Bilirubin Direct Bilirubin AST ALT Alkaline Phosphatase Troponin I High Sens 19.8 D C-Reactive Protein B-Natriuretic Peptide 520 H Total Protein Albumin Lipase Procalcitonin Influenza Type A (PCR) NEGATIVE Influenza Type B (PCR) NEGATIVE RSV RNA Qual (PCR) NEGATIVE SARS-CoV-2 RNA (RT-PCR) NEGATIVE 03/23/24 03/23/24 03/23/24 13:04 13:21 15:22 MCV MCH MCHC RDW Plt Count MPV Immature Gran % (Auto) Neut % (Auto) Lymph % (Auto) Kemper % (Auto) Eos % (Auto) Baso % (Auto) Lymph # (Auto) Kemper # (Auto) Eos # (Auto) Baso # (Auto) Abs Immat Gran (auto) Absolute Neuts (auto) Absolute Nucleated RBC Nucleated RBC % (auto) ESR Anion Gap 11 L Estim Creat Clear Calc 94.8 Estimated GFR > 60 POC Glucose 376 H* 275 H Random Glucose 406 H* Lactic Acid 3.9 H* Calcium 8.6 D Magnesium 2.7 H Total Bilirubin 0.3 Direct Bilirubin 0.2 AST 40 H ALT 24 Alkaline Phosphatase 126 H Troponin I High Sens C-Reactive Protein 20.74 H B-Natriuretic Peptide Total Protein 7.0 Albumin 2.9 L Lipase 29 Procalcitonin 0.12 Influenza Type A (PCR) Influenza Type B (PCR) RSV RNA Qual (PCR) SARS-CoV-2 RNA (RT-PCR) Imaging Radiologist's Impressions: Impressions Chest X-Ray 03/23/24 12:07 IMPRESSION: Bibasilar opacities similar to that seen on the prior examination. Small right pleural effusion. Electronically signed by: Dereje Mejía DO 03/23/2024 02:35 PM EDT RP Foot X-Ray 03/23/24 12:30 IMPRESSION: 1. Soft tissue ulceration of the plantar side of foot near the metatarsophalangeal joint area. 2. Soft tissue gas throughout the forefoot mostly of the dorsum of the foot extending toward the ankle joint. 3. Soft tissue swelling of the second toe with gas in the soft tissues around the proximal phalanges. 4. No radiographic evidence for osteomyelitis. Electronically signed by: Mansoor Perez MD 03/23/2024 03:01 PM EDT RP Assessment and Plan (1) Acute exacerbation of chronic obstructive airways disease: Status: Acute (2) 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: Status: Acute Plan This is a 58-year-old male with a history of atrial fibrillation on Eliquis, ischemic cardiomyopathy status post AICD, coronary artery disease status post PCI, COPD, KIMANI on CPAP among others who presents to the emergency department with shortness of breath and redness of his foot found to have COPD exacerbation, diabetic foot ulcer, atrial fibrillation with rapid ventricular response, hyperglycemia Acute respiratory failure with hypoxia due to exacerbation of COPD IV Solu-Medrol Scheduled and p.r.n. breathing treatments-Xopenex due to AFib with RVR Wean supplemental oxygen as needed sepsis due to COPD vs diabetic foot infection meets sepsis criteria with fever, tachycardia, tachypnea Elevated lactic acid 3.9, repeat trending down Received IV fluid in ED, will hold off on further fluids due to h/o CHF Follow blood cultures Atrial fibrillation with rapid ventricular response Likely due to breathing treatments and missing a.m. medication We will give 1 dose of oral metoprolol now and monitor closely Resume baseline dose of metoprolol Resume baseline dose of amiodarone Continue anticoagulation with Eliquis Cardiology consultation left diabetic foot wound continue IV vancomycin, cefepime (03/23) gas on xray likely due to open wound but will obtain CT with contrast for further characterization Follow blood cultures HFrEF ECHO 03/16 with improvement of EF to 30% no acute exacerbation resume baseline meds when med rec complete IDDM with hyperglycemia BS elevated on arrival, received insulin in ED SSI, POCs Lantus, titrate prn hold jardiance History of pericardial effusion Appears slightly reduced in size on recent echocardiogram KIMANI CPAP at bedtime mood disorder continue baseline medications med rec pending dvt ppx - eliquis code status -DNR/DNI Patient will likely require 2 midnight stay in the hospital due to numerous acute medical issues requiring IV steroids, IV antibiotics, specialist evaluation Quality Stroke Does the patient have a stroke diagnosis?: No VTE Prior VTE?: No VTE Risk Level:: Medical - moderate - high VTE Device Contraindication: N/A - Device Ordered VTE Drug Contraindication: N/A - Med Ordered
[2024-03-23 16:56] LABS: ~Lactic Acid-LAB USE ONLY 2.3 mmol/L (0.5-2.0)
[2024-03-23 17:10] LABS: Glucose, Whole Blood 146 mg/dL (60-115)
[2024-03-23 17:11] LABS: Cancel Lactic Acid Canceled
[2024-03-23 17:12] LABS: Reflex Lactate? 2 N
--- NOTE | 2024-03-23 17:12 | PHA.PROG ---
Admission Date/Time: March 23, 2024 16:22 Indication: SKIN Weight in k.9 kg Adjusted body weight in Kg: Caldwell body weight in Kg: Obesity Dosing Indication % IBW: BMI 28.3 Serum Creatinine - Last 168 Hours 03/23/24 13:21 Creatinine 0.96 Estimated CrCl and GFR - Last 168 Hours 03/23/24 13:21 Estim Creat Clear Calc 94.8 Estimated GFR > 60 Vancomycin Loading Dose: 2000 X1 Current Vancomycin Dosing Regimen: 1000 Q12H Vancomycin Monitoring using AUC goal of 400 - 600 range with trough as surrogate marker: 487 Date and Time for next Vancomycin Level to be drawn: 03/24 @1100 Pharmacist Comments on Vancomycin Plan: drawing trough before 3rd dose because 4th dose it at 0100.. predicted trough 15.7. Vancomycin dosing will take advantage of [employer] as a clinical decision support tool that uses Bayesian modeling to calculate individual patient's pharmacokinetic parameters and forecast the patient's drug concentration time course with the target goal AUC 24 range of 400 - 600 mg/L/hr.
[2024-03-23] MEDS: levalbuterol HCL 1.25 MG/3 ML VIAL.NEB INHALE (17:16)
[2024-03-23] MEDS: methylPREDNISolone Sod Succ 40 MG/ML VIAL IVPUSH (17:32)
[2024-03-23] MEDS: Metoprolol Succinate ER 50 MG TAB.ER.24H PO (17:32)
--- NOTE | 2024-03-23 18:08 | PHA.MEDREC ---
Pharmacy Consult ? Medication Reconciliation Pharmacy has completed the medication reconciliation. Spoke to patient and confirmed medication list. Patient has his med list with him. He confirmed he takes lantus 17 units at bedtime, insulin lispro 7 units tidac, torsemide 20 mg qod (but he doesn't know when was the last time he took this med), advair 45 mcg 2 puffs bid and albuterol 2.5 mg neb solution q6h prn.
[2024-03-23 20:05] LABS: Glucose, Whole Blood 241 mg/dL (60-115)
[2024-03-23] MEDS: Apixaban 5 MG TABLET PO (21:04)
[2024-03-23] MEDS: Gabapentin 300 MG CAPSULE PO (21:04)
[2024-03-23] MEDS: Insulin Glargine,Hum.rec.anlog 100 UNIT/ML 10 ML VIAL 15 UNIT SUBCUT (21:05)
[2024-03-23] MEDS: Melatonin 3 MG TABLET PO (21:05)
[2024-03-23] MEDS: Insulin Lispro 100 UNIT/ML 3 ML VIAL SUBCUT (21:05)
[2024-03-23] MEDS: Morphine Sulfate 2 MG/ML CARTRIDGE IVPUSH (21:07)
[2024-03-23] MEDS: iohexoL 350 MG/ML 100 ML INFUS..BTL 85 ML IV (21:52)
[2024-03-24] VITALS (9 sets, daily range): BP systolic 100–171; BP diastolic 64–90; PULSE 60–80; RESP 20; TEMP 36.1–36.7; O2SAT 94–100
[2024-03-24] MEDS: cefEPime HCl 2 GM in 0.9 % Sodium Chloride 50 ML IV ×2 (00:41→12:09)
[2024-03-24] MEDS: Morphine Sulfate 2 MG/ML CARTRIDGE IVPUSH ×5 (01:30→19:54)
[2024-03-24] MEDS: vancomycin HCL 1,000 MG in 0.9 % Sodium Chloride 250 ML 270 MG IV (01:37)
[2024-03-24] MEDS: methylPREDNISolone Sod Succ 40 MG/ML VIAL IVPUSH ×2 (04:18→16:21)
[2024-03-24 07:19] LABS: Hematocrit 39.6 % (42.0-52.0); Hemoglobin 11.1 g/dl (14.0-18.0); Mean Corpuscular Hemoglobin 22.4 pg (27.0-33.0); Mean Platelet Volume 9.8 fL (9.4-12.4); Platelet Count 483 X10*3/uL (160-400); Red Blood Count 4.95 X10*6/uL (4.60-5.80); White Blood Count 12.7 X10*3/uL (4.8-10.8)
[2024-03-24 07:26] LABS: Glucose, Whole Blood 242 mg/dL (60-115)
[2024-03-24 08:12] LABS: Blood Urea Nitrogen 22 mg/dL (9-16); Calcium 9.4 mg/dL (8.4-10.2); Creatinine Clr Calc Pharmacy 74.6; Estimated Glomerular Filt Rate > 60; Glucose Random 280 mg/dL (60-115)
[2024-03-24] MEDS: Colchicine 0.6 MG TABLET PO (08:18)
[2024-03-24] MEDS: Apixaban 5 MG TABLET PO (08:19)
[2024-03-24] MEDS: Gabapentin 300 MG CAPSULE PO ×3 (08:19→19:56)
[2024-03-24] MEDS: Thiamine HCL 100 MG TABLET PO (08:19)
[2024-03-24] MEDS: Amiodarone HCL 200 MG TABLET PO (08:19)
[2024-03-24] MEDS: Metoprolol Succinate ER 100 MG TAB.ER.24H PO (08:19)
[2024-03-24] MEDS: Sertraline HCL 25 MG TABLET PO (08:19)
[2024-03-24] MEDS: levalbuterol HCL 1.25 MG/3 ML VIAL.NEB INHALE ×2 (08:22→18:33)
[2024-03-24] MEDS: Acetaminophen 325 MG TABLET 650 MG PO (08:23)
[2024-03-24] MEDS: 0.9 % Sodium Chloride Flush 3 ML SYRINGE IVFLUSH ×2 (08:27→19:52)
[2024-03-24] MEDS: Insulin Lispro 100 UNIT/ML 3 ML VIAL SUBCUT ×4 (08:27→19:55)
[2024-03-24 08:32] LABS: Anion Gap 15 (12-20); Carbon Dioxide 28 mmol/L (22-29); Chloride 101 mmol/L (96-108); Potassium 6.2 mmol/L (3.3-5.1); Sodium 138 mmol/L (135-145)
[2024-03-24] MEDS: Fluticasone/Vilanterol 100/25 BLST.W.DEV 1 PUFF INHALE (08:36)
--- NOTE | 2024-03-24 08:37 | ECG_ITS ---
Test Reason : Stat order Blood Pressure : / mmHG Vent. Rate : 073 BPM Atrial Rate : 073 BPM P-R Int : 198 ms QRS Dur : 126 ms QT Int : 412 ms P-R-T Axes : 054 010 171 degrees QTc Int : 453 ms Sinus rhythm with Fusion complexes Non-specific intra-ventricular conduction block Nonspecific T wave abnormality Cannot rule out Septal infarct (cited on or before 23-MAR-2024) Abnormal ECG When compared with ECG of 23-MAR-2024 12:18, Fusion complexes are now Present Premature ventricular complexes are no longer Present Premature atrial complexes are no longer Present Referred By: Pepper Dodd Electronically Signed By:BROOKE YOUNG
--- NOTE | 2024-03-24 09:49 | MHC.CM.PN ---
IMM 03/24/24, Pt. lives alone, he has home care services from [facility] home care, 23 hours a week, and [facility] nursing visits for wound care every other day. For DME he has: CPAP, nebulizer, a cane. HCP is on file, and confirmed, naming Chitra and Debbie. Pt can arrange transport home at [place]. DCP: home, resume services. CM to follow and assist with DC plan.
[2024-03-24] MEDS: Sodium Zirconium Cyclosilicate 10 GM POWD.PACK PO (09:55)
--- NOTE | 2024-03-24 10:26 | P.CONCA_ITS ---
History of Present Illness History of Present Illness Date of Service: 03/24/24 Chief complaint: foot infection,COPD,Afib Narrative: This is a cardiology consultation regarding atrial fibrillation. Current admissions because of shortness of breath which has been increasing over the last couple of weeks with chills and dry cough. Also like discomfort. Apparently he has had redness and pain in his left foot near amputation site. He was admitted for acute exacerbation of COPD as well as foot infection. In this context, noted to be in atrial fibrillation rapid ventricular response. He has since admitted. Otherwise, he states that he is chronically short of breath and can only walk very short distances without feeling that way. Unfortunately, he still smokes. Per documentation by Dr. Andrew, many comorbidities including chronic heart failure with reduced ejection fraction, status post ICD placement, paroxysmal atrial fibrillation on amiodarone but off anticoagulation for unclear reasons, pericardial effusion, coronary disease, diffuse vascular disease. Review of Systems 2 Review of Systems: Yes all other systems are reviewed and are negative Constitutional: Constitutional: Reports as per HPI and Reports no additional constitutional complaints Eyes: Eyes: Reports as per HPI and Denies no additional eye complaints ENT: Denies system reviewed and no additional complaints, except as documented and Reports as per HPI Cardiovascular: Cardiovascular: Reports as per HPI, Reports no additional cardiovascular complaints, Denies acrocyanosis, Denies cool extremities, Denies chest pain, Denies leg edema, Denies lightheadedness, Denies palpitations and Reports dyspnea Respiratory: Respiratory: Reports as per HPI, Denies no additional respiratory complaints and Reports dyspnea Gastrointestinal: Gastrointestinal: Reports as per HPI and Denies no additional gastrointestinal complaints Genitourinary: Genitourinary: Reports no additional male genitourinary complaints and Reports as per HPI Musculoskeletal: Musculoskeletal: Reports no additional musculoskeletal complaints and Reports as per HPI Integumentary/Breasts: Skin/Breast: Reports system reviewed and no additional complaints, except as docu Neurologic: Reports system reviewed and no additional complaints, except as documented and Reports as per HPI Psychiatric: Psychiatric: Reports no additional psychiatric complaints and Reports as per HPI Endocrine: Endocrine: Reports no additional endocrine complaints, Reports as per HPI and Denies palpitations Hematologic/Lymphatic: Hematologic/Lymphatic: Reports no additional hematologic/lymphatic complaints and Reports as per HPI Allergic/Immunologic: Allergic/Immunologic: Reports no additional allergic/immunologic complaints and Reports as per HPI [facility] Past Medical History Medical History Acute on chronic HFrEF (heart failure with reduced ejection fraction) History of osteomyelitis 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 Diverticulosis Tubular adenoma of colon (~2018) History of COVID-19 Nicotine dependence, cigarettes, uncomplicated Hypertensive retinopathy Microhematuria ICD (implantable cardioverter-defibrillator) in place COPD (chronic obstructive pulmonary disease) KIMANI (obstructive sleep apnea) Sleep apnea CAD (coronary artery disease) Paroxysmal atrial fibrillation (~2016) Family History Family History Father Atherosclerosis Mother Cerebral aneurysm Maternal Grandmother Unknown family medical history Mother Cerebral hemorrhage Father Coronary artery disease Surgical History Surgical History History of amputation of left great toe History of cardiac cath History of ankle surgery History of implantable cardiac defibrillator (ICD) History of colonoscopy History of heart artery stent History of cardiac radiofrequency ablation History of cardioversion History of esophagogastroduodenoscopy History of umbilical hernia History of inguinal hernia Social History Social History Household Members: None Housing: House Are you a primary hemodialysis patient care specialist to a significant other at home: No Do you presently have visiting nurse or other home services: Yes Alcohol intake: former Patient Tobacco Use Status: Current everyday Tobacco user Tobacco use type: Cigarette Cigarette Packs Per Day: 1 Years Smoked: (current smoker - onset 14yo, 1ppd x 43yrs, 40pyh) Smoked in Last 30 Days: Yes e-Cigarette/Vaping Use: Never Used Second Hand Smoke Exposure: Yes Use of substances other than those prescribed or required for medical reasons: No Currently Displaying Signs/Symptoms of Drug Intoxication Withdrawal: No Any prior treatment program specific to substance use: No Have you been hit, kicked, punched, or otherwise hurt by someone within the past year? If so, by whom?: No Do you feel safe in your current relationship?: Yes Is there a partner from a previous relationship who is making you feel unsafe now?: No Are you made to feel afraid or neglected: No Advance Directives: Yes Advance Directives on File: Yes Advance Directives Date on File: 07/09/21 Do you have a plan to hurt others: No Plan service: No Current occupational status: unemployed and disabled Current occupation: rt handed Cognitive needs: No Hearing needs: No Vision needs: Yes Meds Allergies Allergy/AdvReac Type Severity Reaction Status Date / Time No Known Allergies Allergy Verified 03/23/24 11:55 [No Known Allergies*] Active Medications: Current Medications Acetaminophen (Acetaminophen 325 Mg Tablet) 650 mg PO Q6H PRN PRN Reason: Pain, Mild (Pain Scale 1-3), fever or headache Last Admin: 03/24/24 08:23 Dose: 650 mg Albuterol Sulfate (Albuterol Sulfate (0.083%) 2.5 Mg/3 Ml Vial.Neb) 2.5 mg INHALE RQ6H PRN PRN Reason: Shortness Of Breath Or Wheezing Amiodarone HCl (Amiodarone Hcl 200 Mg Tablet) 200 mg PO DAILY [facility] Last Admin: 03/24/24 08:19 Dose: 200 mg Apixaban (Apixaban 5 Mg Tablet) 5 mg PO BID [facility] Last Admin: 03/24/24 08:19 Dose: 5 mg Colchicine (Colchicine 0.6 Mg Tablet) 0.6 mg PO DAILY [facility] Last Admin: 03/24/24 08:18 Dose: 0.6 mg Fluticasone/Vilanterol (Fluticasone/Vilanterol 100/25 Blst.W.Dev) 1 puff INHALE RDAILY [facility] Last Admin: 03/24/24 08:36 Dose: 1 puff Gabapentin (Gabapentin 300 Mg Capsule) 300 mg PO TID [facility] Last Admin: 03/24/24 08:19 Dose: 300 mg Glucose (Glucose Gel 15 Gm Gel..Gram.) 15 gm PO Q15M PRN; Protocol PRN Reason: per Hypoglycemia Standing Ord. Dextrose (D10) 250 mls @ 750 mls/hr IV Q15M PRN; Protocol PRN Reason: per Hypoglycemia Standing Ord. Cefepime HCl 2 gm/ Sodium (Chloride) 50 mls @ 100 mls/hr IV Q12H [facility] Last Infusion: 03/24/24 01:11 Dose: Infused Vancomycin HCl 1,000 mg/ (Sodium Chloride) 270 mls @ 270 mls/hr IV Q12H [facility] Last Infusion: 03/24/24 02:37 Dose: Infused Insulin Glargine (Insulin Glargine,Hum.Rec.Anlog 100 Unit/Ml 10 Ml Vial) 15 unit SUBCUT BEDTIME [facility] Last Admin: 03/23/24 21:05 Dose: 15 unit Insulin Human Lispro (Insulin Lispro 100 Unit/Ml 3 Ml Vial) 0 unit SUBCUT QIDACHS [facility]; Protocol Last Admin: 03/24/24 08:27 Dose: 4 unit Levalbuterol HCl (Levalbuterol Hcl 1.25 Mg/3 Ml Vial.Neb) 1.25 mg INHALE RQ4H PRN PRN Reason: Shortness of Breath/Wheezing Last Admin: 03/24/24 08:22 Dose: 1.25 mg Levalbuterol HCl (Levalbuterol Hcl 1.25 Mg/3 Ml Vial.Neb) 1.25 mg INHALE RQ6H [facility] Melatonin (Melatonin 3 Mg Tablet) 6 mg PO BEDTIME PRN PRN Reason: Insomnia Melatonin (Melatonin 3 Mg Tablet) 3 mg PO BEDTIME [facility] Last Admin: 03/23/24 21:05 Dose: 3 mg Methylprednisolone Sodium Succinate (Methylprednisolone Sod Succ 40 Mg/Ml Vial) 40 mg IVPUSH Q12H [facility] Last Admin: 03/24/24 04:18 Dose: 40 mg Metoprolol Succinate (Metoprolol Succinate Er 100 Mg Tab.Er.24h) 100 mg PO DAILY [facility]; Protocol Last Admin: 03/24/24 08:19 Dose: 100 mg Morphine Sulfate (Morphine Sulfate 2 Mg/Ml Cartridge) 2 mg IVPUSH Q4H PRN; Protocol PRN Reason: Pain, Severe (Pain Scale 7-10) Last Admin: 03/24/24 08:23 Dose: 2 mg Omeprazole (Omeprazole 20 Mg Capsule.Dr) 20 mg PO DAILY@0630 [facility] Last Admin: 03/24/24 06:36 Dose: Not Given Pharmacy Consult (Consult Rx Vancomycin Dosing) 1 each MISCELLANE DAILY PRN PRN Reason: Consult order Senna (Sennosides 8.6 Mg Tablet) 17.2 mg PO BEDTIME [facility] Last Admin: 03/23/24 21:54 Dose: Not Given Sertraline HCl (Sertraline Hcl 25 Mg Tablet) 25 mg PO DAILY [facility] Last Admin: 03/24/24 08:19 Dose: 25 mg Sodium Chloride (0.9 % Sodium Chloride Flush 3 Ml Syringe) 3 ml IVFLUSH QSHIFT [facility] Last Admin: 03/24/24 08:27 Dose: 3 ml Thiamine HCl (Thiamine Hcl 100 Mg Tablet) 100 mg PO DAILY [facility] Last Admin: 03/24/24 08:19 Dose: 100 mg Torsemide (Torsemide 20 Mg Tablet) 20 mg PO Q48H [facility]; Protocol Last Admin: 03/24/24 08:34 Dose: Not Given Home Medications ?Medication ?Instructions ?Recorded ?Confirmed ?Last Taken ?Type acetaminophen 325 mg tablet 650 mg PO Q6H PRN Pain, Moderate 11/18/23 03/23/24 Unknown History colchicine 0.6 mg tablet 0.6 mg PO DAILY 11/18/23 03/23/24 11/16/23 History insulin glargine 100 unit/mL (3 17 unit subcut BEDTIME 11/18/23 03/23/24 03/22/24 History mL) subcutaneous pen (Lantus Solostar U-100 Insulin) insulin lispro 100 unit/mL 7 unit subcut TIDAC 11/18/23 03/23/24 03/22/24 History subcutaneous solution metoprolol succinate 100 mg 100 mg PO DAILY 12/20/23 03/23/24 03/22/24 History tablet,extended release 24 hr torsemide 20 mg tablet 20 mg PO Q48H 12/20/23 03/23/24 Unknown History albuterol sulfate 2.5 mg/3 mL 2.5 mg inhalation Q6H PRN 03/23/24 03/23/24 Unknown History (0.083 %) solution for nebulization Shortness Of Breath Or Wheezing apixaban 5 mg tablet (Eliquis) 5 mg PO BID 03/23/24 03/23/24 Unknown History empagliflozin 10 mg tablet 10 mg PO DAILY 03/23/24 03/23/24 03/22/24 History (Jardiance) fluticasone propionate 45 2 puff inhalation BID 03/23/24 03/23/24 Unknown History mcg-salmeterol 21 mcg/actuation HFA inhaler (Advair HFA) sennosides 8.6 mg tablet (senna) 17.2 mg PO BEDTIME 03/23/24 03/23/24 Unknown History Physical Exam 2 Vital Signs: Vital Signs: Last Vital Signs Temp 97.4 F 03/24/24 07:36 Pulse 72 03/24/24 08:23 Resp 20 03/24/24 08:23 BP 127/78 03/24/24 07:36 Pulse Ox 97 03/24/24 07:36 O2 Del Method CPAP 03/24/24 07:36 O2 Flow Rate 2 03/23/24 19:54 BMI result Body Mass Index 28.3 Const: General: comfortable and no acute distress O rientation/consciousness: patient oriented x3 HEENT: Other: Unremarkable Head: Yes normal to inspection Neck: Neck: Yes normal visual inspection Chest: Chest palpation & inspection: normal inspection of the chest Resp: Auscultation: wheezes and diminished lung sounds Cardio: Palpation: normal PMI Heart sounds: S1 normal heart sound present, S2 normal heart sound present, no gallops, no murmurs and no rubs GI: Palpation (GI): Soft to palpation Back/Spine/Pelvis: Other: unremarkable Skin: General skin exam: no rashes or lesions noted Neuro: General: patient oriented x3 Extrem: General: Yes normal to inspection Psych: Mental Status: mental status grossly normal Objective Labs and Meds 03/24/24 06:54 03/24/24 06:54 Lab results: Laboratory Results - last 24 hr 03/23/24 03/23/24 03/23/24 12:18 12:27 12:28 WBC 14.9 H RBC 4.98 Hgb 11.3 L Hct 38.3 L MCV 76.9 L MCH 22.7 L MCHC 29.5 L RDW 18.0 H Plt Count 483 H MPV 9.7 Immature Gran % (Auto) 0.5 H Neut % (Auto) 77.1 H Lymph % (Auto) 14.1 L Burt % (Auto) 7.1 Eos % (Auto) 0.7 Baso % (Auto) 0.5 Lymph # (Auto) 2.1 Burt # (Auto) 1.1 Eos # (Auto) 0.1 Baso # (Auto) 0.1 Abs Immat Gran (auto) 0.08 H Absolute Neuts (auto) 11.5 H Absolute Nucleated RBC 0.000 Nucleated RBC % (auto) 0.0 ESR 69 H Sodium Potassium Chloride Carbon Dioxide Anion Gap BUN Creatinine Estim Creat Clear Calc Estimated GFR POC Glucose Random Glucose Lactic Acid Lactic Acid F/U @ 2Hr Calcium Magnesium Total Bilirubin Direct Bilirubin AST ALT Alkaline Phosphatase Troponin I High Sens 19.8 D C-Reactive Protein B-Natriuretic Peptide 520 H Total Protein Albumin Lipase Procalcitonin Influenza Type A (PCR) NEGATIVE Influenza Type B (PCR) NEGATIVE RSV RNA Qual (PCR) NEGATIVE SARS-CoV-2 RNA (RT-PCR) NEGATIVE 03/23/24 03/23/24 03/23/24 13:04 13:21 15:22 WBC RBC Hgb Hct MCV MCH MCHC RDW Plt Count MPV Immature Gran % (Auto) Neut % (Auto) Lymph % (Auto) Burt % (Auto) Eos % (Auto) Baso % (Auto) Lymph # (Auto) Burt # (Auto) Eos # (Auto) Baso # (Auto) Abs Immat Gran (auto) Absolute Neuts (auto) Absolute Nucleated RBC Nucleated RBC % (auto) ESR Sodium 136 Potassium 4.1 Chloride 101 Carbon Dioxide 28 Anion Gap 11 L BUN 13 Creatinine 0.96 Estim Creat Clear Calc 94.8 Estimated GFR > 60 POC Glucose 376 H* 275 H Random Glucose 406 H* Lactic Acid 3.9 H* Lactic Acid F/U @ 2Hr Calcium 8.6 D Magnesium 2.7 H Total Bilirubin 0.3 Direct Bilirubin 0.2 AST 40 H ALT 24 Alkaline Phosphatase 126 H Troponin I High Sens C-Reactive Protein 20.74 H B-Natriuretic Peptide Total Protein 7.0 Albumin 2.9 L Lipase 29 Procalcitonin 0.12 Influenza Type A (PCR) Influenza Type B (PCR) RSV RNA Qual (PCR) SARS-CoV-2 RNA (RT-PCR) 03/23/24 03/23/24 03/23/24 16:17 17:06 19:54 WBC RBC Hgb Hct MCV MCH MCHC RDW Plt Count MPV Immature Gran % (Auto) Neut % (Auto) Lymph % (Auto) Burt % (Auto) Eos % (Auto) Baso % (Auto) Lymph # (Auto) Burt # (Auto) Eos # (Auto) Baso # (Auto) Abs Immat Gran (auto) Absolute Neuts (auto) Absolute Nucleated RBC Nucleated RBC % (auto) ESR Sodium Potassium Chloride Carbon Dioxide Anion Gap BUN Creatinine Estim Creat Clear Calc Estimated GFR POC Glucose 146 H 241 H Random Glucose Lactic Acid Lactic Acid F/U @ 2Hr 2.3 H* Calcium Magnesium Total Bilirubin Direct Bilirubin AST ALT Alkaline Phosphatase Troponin I High Sens C-Reactive Protein B-Natriuretic Peptide Total Protein Albumin Lipase Procalcitonin Influenza Type A (PCR) Influenza Type B (PCR) RSV RNA Qual (PCR) SARS-CoV-2 RNA (RT-PCR) 03/24/24 03/24/24 06:54 07:23 WBC 12.7 H RBC 4.95 Hgb 11.1 L Hct 39.6 L MCV 80.0 MCH 22.4 L MCHC 28.0 L RDW 18.0 H Plt Count 483 H MPV 9.8 Immature Gran % (Auto) Neut % (Auto) Lymph % (Auto) Burt % (Auto) Eos % (Auto) Baso % (Auto) Lymph # (Auto) Burt # (Auto) Eos # (Auto) Baso # (Auto) Abs Immat Gran (auto) Absolute Neuts (auto) Absolute Nucleated RBC 0.000 Nucleated RBC % (auto) 0.0 ESR Sodium 138 Potassium 6.2 H* D Chloride 101 Carbon Dioxide 28 Anion Gap 15 BUN 22 H Creatinine 1.22 Estim Creat Clear Calc 74.6 Estimated GFR > 60 POC Glucose 242 H Random Glucose 280 H Lactic Acid Lactic Acid F/U @ 2Hr Calcium 9.4 D Magnesium Total Bilirubin Direct Bilirubin AST ALT Alkaline Phosphatase Troponin I High Sens C-Reactive Protein B-Natriuretic Peptide Total Protein Albumin Lipase Procalcitonin Influenza Type A (PCR) Influenza Type B (PCR) RSV RNA Qual (PCR) SARS-CoV-2 RNA (RT-PCR) ECG Interpretation: EKG from yesterday shows sinus rhythm with supraventricular and ventricular ectopy. Nonspecific ST-T changes. In the repeat EKG, sinus rhythm with PVCs. Unclear when was atrial fibrillation. Imaging Radiologist's impression: Impressions Chest X-Ray 03/23/24 12:07 IMPRESSION: Bibasilar opacities similar to that seen on the prior examination. Small right pleural effusion. Electronically signed by: Dereje Mejía DO 03/23/2024 02:35 PM EDT Foot X-Ray 03/23/24 12:30 IMPRESSION: 1. Soft tissue ulceration of the plantar side of foot near the metatarsophalangeal joint area. 2. Soft tissue gas throughout the forefoot mostly of the dorsum of the foot extending toward the ankle joint. 3. Soft tissue swelling of the second toe with gas in the soft tissues around the proximal phalanges. 4. No radiographic evidence for osteomyelitis. Electronically signed by: Mansoor Perez MD 03/23/2024 03:01 PM EDT RP Tibia/Fibula X-Ray 03/23/24 16:40 IMPRESSION: 6 mm long metallic structure overlying the region of what is likely the peroneal artery. Please correlate with any surgical or interventional history. Electronically signed by: Evgeny Lema MD 03/23/2024 06:06 PM EDT RP Foot CT 03/23/24 17:27 IMPRESSION: 1. Synovitis with soft tissue ulceration along the plantar aspect of the second metatarsophalangeal joint measuring up to 2.1 x 1.0 cm. Adjacent skin thickening with subcutaneous edema and enhancement. Peripherally enhancing, complex fluid extending deep to the second metatarsophalangeal joint, which could represent phlegmonous change or early abscess formation. 2. Soft tissue swelling/edema with extensive soft tissue emphysema adjacent to the second phalanx and extending along the dorsum of the forefoot to the level of the distal tibia. Findings are concerning for necrotizing fasciitis. 3. No cortical erosion or periosteal reaction; however, early osteomyelitis can be occult on CT examination and cannot be excluded. MRI could help further evaluate for acute osteomyelitis if clinically indicated. Electronically signed by: Shin Siddiqui MD 03/24/2024 09:06 AM EDT Assessment and Plan (1) Atrial fibrillation with RVR: Status: Resolved (2) Cardiomyopathy: Status: Resolved (3) Acute respiratory failure with hypoxia: Status: Resolved (4) Hyperkalemia: Status: Acute Plan High sensitivity troponins within range. Potassium level 6.2. He has had intermittently high levels. Elevated inflammatory markers. Last echocardiogram with LVEF of 30-35%. Restrictive filling. [id number] pericardial effusion. Overall, admitted for pulmonary issues as well as foot infection. In this setting, has hyperkalemia. Risk concern for atrial fibrillation with rapid rate but not seen in the EKGs. Currently, in sinus. Per last ICD check from 2 weeks ago, recurrent episodes of atrial fibrillation noted but overall burden was only 3.4%. Overall, recommend that he just continues usual dose of amiodarone and beta- blockers. Also anticoagulation that can be continued. Treat medical issues. Treat hyperkalemia. If recurring atrial fibrillation, then can reassess. Discussed with hospitalist. Procedures Date of Service Date of Service: 03/24/24
--- NOTE | 2024-03-24 11:34 | HE.PHANOTE ---
RE: vanco Level on 03/24 ccame abck at 22mg/L. Patient's renal function worsened. Changed dose to 1250mg Q24H with predicted AUC of 481 mg/L, trough of 13.2. Next level to be drawn 03/25 @2100
--- NOTE | 2024-03-24 11:39 | HO.PM.IMPN ---
Subjective Subjective Date of Service: 03/24/24 Interval History: Seen and examined this morning Follow-up for diabetic foot wound, AFib, COPD exacerbation Persistent shortness of breath, heart rate improved, still with foot pain Review of Systems Review of Systems: Yes all other systems are reviewed and are negative Constitutional Constitutional: Denies chills and Denies fever(s) Cardiovascular Cardiovascular: Denies chest pain, Denies palpitations and Reports dyspnea Respiratory Respiratory: Reports dyspnea Gastrointestinal Gastrointestinal: Denies abdominal pain, Denies nausea and Denies vomiting Endocrine Endocrine: Denies palpitations Physical Exam Vital Signs: Vital Signs: Last Vital Signs Temp 97.4 F 03/24/24 07:36 Pulse 72 03/24/24 08:23 Resp 20 03/24/24 08:23 BP 127/78 03/24/24 07:36 Pulse Ox 97 03/24/24 07:36 O2 Del Method CPAP 03/24/24 07:36 O2 Flow Rate 2 03/23/24 19:54 BMI result Body Mass Index 28.3 Const: General: cooperative, alert and awake Nutritional Appearance: average body habitus Orientation/consciousness: patient oriented x3 Resp: Other: Bilateral expiratory wheezing Effort & Inspection: normal respiratory effort, able to speak in complete sentences, no respiratory distress and no use of accessory muscles GI: Inspection: No distended Palpation (GI): Soft to palpation and nontender Skin: Other: foot similar to admission with erythema, swelling dorsum of foot with erythema; no fluctuance, no drainage from ulcer on plantar surface of foot Neuro: General: patient oriented x3 and moves all extremities Objective Data Active Medications Acetaminophen (Acetaminophen 325 Mg Tablet) 650 mg PO Q6H PRN PRN Reason: Pain, Mild (Pain Scale 1-3), fever or headache Last Admin: 03/24/24 08:23 Dose: 650 mg Documented By: YUNIOR Albuterol Sulfate (Albuterol Sulfate (0.083%) 2.5 Mg/3 Ml Vial.Neb) 2.5 mg INHALE RQ6H PRN PRN Reason: Shortness Of Breath Or Wheezing Amiodarone HCl (Amiodarone Hcl 200 Mg Tablet) 200 mg PO DAILY [facility] Last Admin: 03/24/24 08:19 Dose: 200 mg Documented By: YUNIOR Apixaban (Apixaban 5 Mg Tablet) 5 mg PO BID [facility] Last Admin: 03/24/24 08:19 Dose: 5 mg Documented By: YUNIOR Colchicine (Colchicine 0.6 Mg Tablet) 0.6 mg PO DAILY [facility] Last Admin: 03/24/24 08:18 Dose: 0.6 mg Documented By: YUNIOR Fluticasone/Vilanterol (Fluticasone/Vilanterol 100/25 Blst.W.Dev) 1 puff INHALE RDAILY [facility] Last Admin: 03/24/24 08:36 Dose: 1 puff Documented By: DAVID Gabapentin (Gabapentin 300 Mg Capsule) 300 mg PO TID [facility] Last Admin: 03/24/24 08:19 Dose: 300 mg Documented By: YUNIOR Glucose (Glucose Gel 15 Gm Gel..Gram.) 15 gm PO Q15M PRN; Protocol PRN Reason: per Hypoglycemia Standing Ord. Dextrose (D10) 250 mls @ 750 mls/hr IV Q15M PRN; Protocol PRN Reason: per Hypoglycemia Standing Ord. Cefepime HCl 2 gm/ Sodium (Chloride) 50 mls @ 100 mls/hr IV Q12H [facility] Last Infusion: 03/24/24 01:11 Dose: Infused Documented By: PRASANNA Vancomycin HCl 1,250 mg/ (Sodium Chloride) 250 mls @ 166.667 mls/hr IV Q24H [facility] Insulin Glargine (Insulin Glargine,Hum.Rec.Anlog 100 Unit/Ml 10 Ml Vial) 15 unit SUBCUT BEDTIME [facility] Last Admin: 03/23/24 21:05 Dose: 15 unit Documented By: PRASANNA Insulin Human Lispro (Insulin Lispro 100 Unit/Ml 3 Ml Vial) 0 unit SUBCUT QIDACHS [facility]; Protocol Last Admin: 03/24/24 08:27 Dose: 4 unit Documented By: YUNIOR Levalbuterol HCl (Levalbuterol Hcl 1.25 Mg/3 Ml Vial.Neb) 1.25 mg INHALE RQ4H PRN PRN Reason: Shortness of Breath/Wheezing Last Admin: 03/24/24 08:22 Dose: 1.25 mg Documented By: DAVID Levalbuterol HCl (Levalbuterol Hcl 1.25 Mg/3 Ml Vial.Neb) 1.25 mg INHALE RQ6H [facility] Last Admin: 03/24/24 11:06 Dose: Not Given Documented By: DAVID Non-Admin Reason: pt asleep on CPAP\ Melatonin (Melatonin 3 Mg Tablet) 6 mg PO BEDTIME PRN PRN Reason: Insomnia Melatonin (Melatonin 3 Mg Tablet) 3 mg PO BEDTIME [facility] Last Admin: 03/23/24 21:05 Dose: 3 mg Documented By: PRASANNA Methylprednisolone Sodium Succinate (Methylprednisolone Sod Succ 40 Mg/Ml Vial) 40 mg IVPUSH Q12H [facility] Last Admin: 03/24/24 04:18 Dose: 40 mg Documented By: PRASANNA Metoprolol Succinate (Metoprolol Succinate Er 100 Mg Tab.Er.24h) 100 mg PO DAILY [facility]; Protocol Last Admin: 03/24/24 08:19 Dose: 100 mg Documented By: YUNIOR Morphine Sulfate (Morphine Sulfate 2 Mg/Ml Cartridge) 2 mg IVPUSH Q4H PRN; Protocol PRN Reason: Pain, Severe (Pain Scale 7-10) Last Admin: 03/24/24 08:23 Dose: 2 mg Documented By: YUNIOR Omeprazole (Omeprazole 20 Mg Capsule.Dr) 20 mg PO DAILY@0630 [facility] Last Admin: 03/24/24 06:36 Dose: Not Given Documented By: PRASANNA Non-Admin Reason: Patient Asleep Pharmacy Consult (Consult Rx Vancomycin Dosing) 1 each MISCELLANE DAILY PRN PRN Reason: Consult order Senna (Sennosides 8.6 Mg Tablet) 17.2 mg PO BEDTIME [facility] Last Admin: 03/23/24 21:54 Dose: Not Given Documented By: PRASANNA Non-Admin Reason: Patient Refused Sertraline HCl (Sertraline Hcl 25 Mg Tablet) 25 mg PO DAILY [facility] Last Admin: 03/24/24 08:19 Dose: 25 mg Documented By: YUNIOR Sodium Chloride (0.9 % Sodium Chloride Flush 3 Ml Syringe) 3 ml IVFLUSH QSHIFT [facility] Last Admin: 03/24/24 08:27 Dose: 3 ml Documented By: YUNIOR Thiamine HCl (Thiamine Hcl 100 Mg Tablet) 100 mg PO DAILY [facility] Last Admin: 03/24/24 08:19 Dose: 100 mg Documented By: YUNIOR Torsemide (Torsemide 20 Mg Tablet) 20 mg PO Q48H [facility]; Protocol Last Admin: 03/24/24 08:34 Dose: Not Given Documented By: YUNIOR Non-Admin Reason: Physician Held Med Labs 03/24/24 06:54 03/24/24 12:20 Labs: Laboratory Results - last 24 hr 03/23/24 03/23/24 03/23/24 12:18 12:27 12:28 MCV 76.9 L MCH 22.7 L MCHC 29.5 L RDW 18.0 H Plt Count 483 H MPV 9.7 Immature Gran % (Auto) 0.5 H Neut % (Auto) 77.1 H Lymph % (Auto) 14.1 L [place] % (Auto) 7.1 Eos % (Auto) 0.7 Baso % (Auto) 0.5 Lymph # (Auto) 2.1 [place] # (Auto) 1.1 Eos # (Auto) 0.1 Baso # (Auto) 0.1 Abs Immat Gran (auto) 0.08 H Absolute Neuts (auto) 11.5 H Absolute Nucleated RBC 0.000 Nucleated RBC % (auto) 0.0 ESR 69 H Anion Gap Estim Creat Clear Calc Estimated GFR POC Glucose Random Glucose Lactic Acid Lactic Acid F/U @ 2Hr Calcium Magnesium Total Bilirubin Direct Bilirubin AST ALT Alkaline Phosphatase Troponin I High Sens 19.8 D C-Reactive Protein B-Natriuretic Peptide 520 H Total Protein Albumin Lipase Procalcitonin Random Vancomycin Influenza Type A (PCR) NEGATIVE Influenza Type B (PCR) NEGATIVE RSV RNA Qual (PCR) NEGATIVE SARS-CoV-2 RNA (RT-PCR) NEGATIVE 03/23/24 03/23/24 03/23/24 13:04 13:21 15:22 MCV MCH MCHC RDW Plt Count MPV Immature Gran % (Auto) Neut % (Auto) Lymph % (Auto) [place] % (Auto) Eos % (Auto) Baso % (Auto) Lymph # (Auto) [place] # (Auto) Eos # (Auto) Baso # (Auto) Abs Immat Gran (auto) Absolute Neuts (auto) Absolute Nucleated RBC Nucleated RBC % (auto) ESR Anion Gap 11 L Estim Creat Clear Calc 94.8 Estimated GFR > 60 POC Glucose 376 H* 275 H Random Glucose 406 H* Lactic Acid 3.9 H* Lactic Acid F/U @ 2Hr Calcium 8.6 D Magnesium 2.7 H Total Bilirubin 0.3 Direct Bilirubin 0.2 AST 40 H ALT 24 Alkaline Phosphatase 126 H Troponin I High Sens C-Reactive Protein 20.74 H B-Natriuretic Peptide Total Protein 7.0 Albumin 2.9 L Lipase 29 Procalcitonin 0.12 Random Vancomycin Influenza Type A (PCR) Influenza Type B (PCR) RSV RNA Qual (PCR) SARS-CoV-2 RNA (RT-PCR) 03/23/24 03/23/24 03/23/24 16:17 17:06 19:54 MCV MCH MCHC RDW Plt Count MPV Immature Gran % (Auto) Neut % (Auto) Lymph % (Auto) [place] % (Auto) Eos % (Auto) Baso % (Auto) Lymph # (Auto) [place] # (Auto) Eos # (Auto) Baso # (Auto) Abs Immat Gran (auto) Absolute Neuts (auto) Absolute Nucleated RBC Nucleated RBC % (auto) ESR Anion Gap Estim Creat Clear Calc Estimated GFR POC Glucose 146 H 241 H Random Glucose Lactic Acid Lactic Acid F/U @ 2Hr 2.3 H* Calcium Magnesium Total Bilirubin Direct Bilirubin AST ALT Alkaline Phosphatase Troponin I High Sens C-Reactive Protein B-Natriuretic Peptide Total Protein Albumin Lipase Procalcitonin Random Vancomycin Influenza Type A (PCR) Influenza Type B (PCR) RSV RNA Qual (PCR) SARS-CoV-2 RNA (RT-PCR) 03/24/24 03/24/24 03/24/24 06:54 07:23 10:55 MCV 80.0 MCH 22.4 L MCHC 28.0 L RDW 18.0 H Plt Count 483 H MPV 9.8 Immature Gran % (Auto) Neut % (Auto) Lymph % (Auto) [place] % (Auto) Eos % (Auto) Baso % (Auto) Lymph # (Auto) [place] # (Auto) Eos # (Auto) Baso # (Auto) Abs Immat Gran (auto) Absolute Neuts (auto) Absolute Nucleated RBC 0.000 Nucleated RBC % (auto) 0.0 ESR Anion Gap 15 Estim Creat Clear Calc 74.6 Estimated GFR > 60 POC Glucose 242 H Random Glucose 280 H Lactic Acid Lactic Acid F/U @ 2Hr Calcium 9.4 D Magnesium Total Bilirubin Direct Bilirubin AST ALT Alkaline Phosphatase Troponin I High Sens C-Reactive Protein B-Natriuretic Peptide Total Protein Albumin Lipase Procalcitonin Random Vancomycin 22.0 H Influenza Type A (PCR) Influenza Type B (PCR) RSV RNA Qual (PCR) SARS-CoV-2 RNA (RT-PCR) Assessment and Plan (1) Foot ulcer, left: Status: Acute (2) Hyperkalemia: Status: Acute (3) Cellulitis: Status: Acute Plan This is a 58-year-old male with a history of atrial fibrillation on Eliquis, ischemic cardiomyopathy status post AICD, coronary artery disease status post PCI, COPD, KIMANI on CPAP among others who presents to the emergency department with shortness of breath and redness of his foot found to have COPD exacerbation, diabetic foot ulcer, atrial fibrillation with rapid ventricular response, hyperglycemia Acute respiratory failure with hypoxia due to exacerbation of COPD Continue IV Solu-Medrol Scheduled and p.r.n. breathing treatments Wean supplemental oxygen as needed sepsis due to COPD vs diabetic foot infection meets sepsis criteria with leukocytosis, tachycardia, tachypnea- all resolved Elevated lactic acid 3.9, repeat trending down Blood cultures pending Atrial fibrillation with rapid ventricular response converted to sinus Continue metoprolol, amiodarone Hold Eliquis for possible surgical intervention seen by Cardiology left diabetic foot wound gas on xray -> CT showing soft tissue swelling, synovitis, ? Phlegmon versus early abscess as well as findings concerning for necrotizing fasciitis-> seen by general surgery, no plan for surgery at this time, but will follow closely and if worsens may need BKA. continue IV vancomycin, cefepime (03/23) will add clindamycin hold Eliquis blood cultures pending Acute hyperkalemia Treated with albuterol, insulin, Lokelma No EKG changes Repeat improved HFrEF ECHO 03/16 with improvement of EF to 30% no acute exacerbation continue torsemide IDDM with hyperglycemia BS elevated on arrival, received insulin in ED SSI, POCs Lantus, titrate prn hold jardiance History of pericardial effusion Appears slightly reduced in size on recent echocardiogram KIMANI CPAP at bedtime mood disorder continue baseline medications dvt ppx - eliquis on hold; mechanical devices code status -DNR/DNI Will need ongoing inpatient hospitalization for multiple acute medical issues requiring IV steroids, IV antibiotics, specialist evaluation and likely surgical intervention Quality Stroke Does the patient have a stroke diagnosis?: No VTE Prior VTE?: No VTE Risk Level:: Medical - moderate - high VTE Device Contraindication: N/A - Device Ordered VTE Drug Contraindication: N/A - Med Ordered
[2024-03-24 12:05] LABS: Glucose, Whole Blood 291 mg/dL (60-115)
[2024-03-24] MEDS: Flu Vacc TS2024-25(6mos up)/PF 0.5 ML SYRINGE IM (12:07)
--- NOTE | 2024-03-24 13:01 | P.CONGS_ITS ---
History of Present Illness Consult details Consult date: 03/24/24 Requesting physician: Pepper Dodd Narrative: 58-year-old male patient presenting to the emergency department with acute onset shortness of breath and increased left foot pain. He has a prior history of COPD, HFrEF with an EF of 30%, s/p AICD placement, AFib on Eliquis, CAD, BPH, DM 2, and prior history of left great toe osteomyelitis status post amputation earlier this year. He also underwent an arterial procedure in which a catheter broke off just below the knee. He is uncertain if this remains with in his leg. He does not remember when the current foot ulceration began feels a probably started approximately a month ago. He now notes increased swelling in the foot and 2nd toe. [facility] but is uncertain of his current course of treatment. He has VNA performing his dressing changes. Workup with CT of the foot reveals no definite evidence of osteomyelitis however there was subcutaneous air which could indicate fasciitis. He is admitted to the hospitalist service for IV antibiotics. Review of Systems 2 Review of Systems: Yes Unobtainable due to mental condition PMFSH Past Medical History Medical History Acute on chronic HFrEF (heart failure with reduced ejection fraction) History of osteomyelitis 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 Diverticulosis Tubular adenoma of colon (~2018) History of COVID-19 Nicotine dependence, cigarettes, uncomplicated Hypertensive retinopathy Microhematuria ICD (implantable cardioverter-defibrillator) in place COPD (chronic obstructive pulmonary disease) KIMANI (obstructive sleep apnea) Sleep apnea CAD (coronary artery disease) Paroxysmal atrial fibrillation (~2017) Family History Family History Father Atherosclerosis Mother Cerebral aneurysm Maternal Grandmother Unknown family medical history Mother Cerebral hemorrhage Father Coronary artery disease Surgical History Surgical History History of amputation of left great toe History of cardiac cath History of ankle surgery History of implantable cardiac defibrillator (ICD) History of colonoscopy History of heart artery stent History of cardiac radiofrequency ablation History of cardioversion History of esophagogastroduodenoscopy History of umbilical hernia History of inguinal hernia Social History Social History Household Members: None Housing: House Are you a primary care management specialist to a significant other at home: No Do you presently have visiting nurse or other home services: Yes Alcohol intake: former Patient Tobacco Use Status: Current everyday Tobacco user Tobacco use type: Cigarette Cigarette Packs Per Day: 1 Years Smoked: (current smoker - onset 14yo, 1ppd x 43yrs, 40pyh) Smoked in Last 30 Days: Yes e-Cigarette/Vaping Use: Never Used Second Hand Smoke Exposure: Yes Use of substances other than those prescribed or required for medical reasons: No Currently Displaying Signs/Symptoms of Drug Intoxication Withdrawal: No Any prior treatment program specific to substance use: No Have you been hit, kicked, punched, or otherwise hurt by someone within the past year? If so, by whom?: No Do you feel safe in your current relationship?: Yes Is there a partner from a previous relationship who is making you feel unsafe now?: No Are you made to feel afraid or neglected: No Advance Directives: Yes Advance Directives on File: Yes Advance Directives Date on File: 07/09/21 Do you have a plan to hurt others: No Plan service: No Current occupational status: unemployed and disabled Current occupation: rt handed Cognitive needs: No Hearing needs: No Vision needs: Yes Meds Allergies Allergy/AdvReac Type Severity Reaction Status Date / Time No Known Allergies Allergy Verified 03/23/24 11:55 [No Known Allergies*] Active Medications: Current Medications Acetaminophen (Acetaminophen 325 Mg Tablet) 650 mg PO Q6H PRN PRN Reason: Pain, Mild (Pain Scale 1-3), fever or headache Last Admin: 03/24/24 08:23 Dose: 650 mg Albuterol Sulfate (Albuterol Sulfate (0.083%) 2.5 Mg/3 Ml Vial.Neb) 2.5 mg INHALE RQ6H PRN PRN Reason: Shortness Of Breath Or Wheezing Amiodarone HCl (Amiodarone Hcl 200 Mg Tablet) 200 mg PO DAILY [facility] Last Admin: 03/24/24 08:19 Dose: 200 mg Apixaban (Apixaban 5 Mg Tablet) 5 mg PO BID [facility] Last Admin: 03/24/24 08:19 Dose: 5 mg Colchicine (Colchicine 0.6 Mg Tablet) 0.6 mg PO DAILY [facility] Last Admin: 03/24/24 08:18 Dose: 0.6 mg Fluticasone/Vilanterol (Fluticasone/Vilanterol 100/25 Blst.W.Dev) 1 puff INHALE RDAILY [facility] Last Admin: 03/24/24 08:36 Dose: 1 puff Gabapentin (Gabapentin 300 Mg Capsule) 300 mg PO TID [facility] Last Admin: 03/24/24 08:19 Dose: 300 mg Glucose (Glucose Gel 15 Gm Gel..Gram.) 15 gm PO Q15M PRN; Protocol PRN Reason: per Hypoglycemia Standing Ord. Dextrose (D10) 250 mls @ 750 mls/hr IV Q15M PRN; Protocol PRN Reason: per Hypoglycemia Standing Ord. Cefepime HCl 2 gm/ Sodium (Chloride) 50 mls @ 100 mls/hr IV Q12H [facility] Last Infusion: 03/24/24 12:39 Dose: Infused Vancomycin HCl 1,250 mg/ (Sodium Chloride) 250 mls @ 166.667 mls/hr IV Q24H [facility] Insulin Glargine (Insulin Glargine,Hum.Rec.Anlog 100 Unit/Ml 10 Ml Vial) 15 unit SUBCUT BEDTIME [facility] Last Admin: 03/23/24 21:05 Dose: 15 unit Insulin Human Lispro (Insulin Lispro 100 Unit/Ml 3 Ml Vial) 0 unit SUBCUT QIDACHS [facility]; Protocol Last Admin: 03/24/24 12:07 Dose: 6 unit Levalbuterol HCl (Levalbuterol Hcl 1.25 Mg/3 Ml Vial.Neb) 1.25 mg INHALE RQ4H PRN PRN Reason: Shortness of Breath/Wheezing Last Admin: 03/24/24 08:22 Dose: 1.25 mg Levalbuterol HCl (Levalbuterol Hcl 1.25 Mg/3 Ml Vial.Neb) 1.25 mg INHALE RQ6H [facility] Last Admin: 03/24/24 11:06 Dose: Not Given Melatonin (Melatonin 3 Mg Tablet) 6 mg PO BEDTIME PRN PRN Reason: Insomnia Melatonin (Melatonin 3 Mg Tablet) 3 mg PO BEDTIME [facility] Last Admin: 03/23/24 21:05 Dose: 3 mg Methylprednisolone Sodium Succinate (Methylprednisolone Sod Succ 40 Mg/Ml Vial) 40 mg IVPUSH Q12H [facility] Last Admin: 03/24/24 04:18 Dose: 40 mg Metoprolol Succinate (Metoprolol Succinate Er 100 Mg Tab.Er.24h) 100 mg PO DAILY [facility]; Protocol Last Admin: 03/24/24 08:19 Dose: 100 mg Morphine Sulfate (Morphine Sulfate 2 Mg/Ml Cartridge) 2 mg IVPUSH Q4H PRN; Protocol PRN Reason: Pain, Severe (Pain Scale 7-10) Last Admin: 03/24/24 12:59 Dose: 2 mg Omeprazole (Omeprazole 20 Mg Capsule.Dr) 20 mg PO DAILY@0630 [facility] Last Admin: 03/24/24 06:36 Dose: Not Given Pharmacy Consult (Consult Rx Vancomycin Dosing) 1 each MISCELLANE DAILY PRN PRN Reason: Consult order Senna (Sennosides 8.6 Mg Tablet) 17.2 mg PO BEDTIME [facility] Last Admin: 03/23/24 21:54 Dose: Not Given Sertraline HCl (Sertraline Hcl 25 Mg Tablet) 25 mg PO DAILY [facility] Last Admin: 03/24/24 08:19 Dose: 25 mg Sodium Chloride (0.9 % Sodium Chloride Flush 3 Ml Syringe) 3 ml IVFLUSH QSHIFT [facility] Last Admin: 03/24/24 11:41 Dose: Not Given Thiamine HCl (Thiamine Hcl 100 Mg Tablet) 100 mg PO DAILY [facility] Last Admin: 03/24/24 08:19 Dose: 100 mg Torsemide (Torsemide 20 Mg Tablet) 20 mg PO Q48H [facility]; Protocol Last Admin: 03/24/24 08:34 Dose: Not Given Home Medications ?Medication ?Instructions ?Recorded ?Confirmed ?Last Taken ?Type acetaminophen 325 mg tablet 650 mg PO Q6H PRN Pain, Moderate 11/18/23 03/23/24 Unknown History colchicine 0.6 mg tablet 0.6 mg PO DAILY 11/18/23 03/23/24 11/16/23 History insulin glargine 100 unit/mL (3 17 unit subcut BEDTIME 11/18/23 03/23/24 03/22/24 History mL) subcutaneous pen (Lantus Solostar U-100 Insulin) insulin lispro 100 unit/mL 7 unit subcut TIDAC 11/18/23 03/23/24 03/22/24 History subcutaneous solution metoprolol succinate 100 mg 100 mg PO DAILY 12/20/23 03/23/24 03/22/24 History tablet,extended release 24 hr torsemide 20 mg tablet 20 mg PO Q48H 12/20/23 03/23/24 Unknown History albuterol sulfate 2.5 mg/3 mL 2.5 mg inhalation Q6H PRN 03/23/24 03/23/24 Unknown History (0.083 %) solution for nebulization Shortness Of Breath Or Wheezing apixaban 5 mg tablet (Eliquis) 5 mg PO BID 03/23/24 03/23/24 Unknown History empagliflozin 10 mg tablet 10 mg PO DAILY 03/23/24 03/23/24 03/22/24 History (Jardiance) fluticasone propionate 45 2 puff inhalation BID 03/23/24 03/23/24 Unknown History mcg-salmeterol 21 mcg/actuation HFA inhaler (Advair HFA) sennosides 8.6 mg tablet (senna) 17.2 mg PO BEDTIME 03/23/24 03/23/24 Unknown History Physical Exam 2 Vital Signs: Vital Signs: Last Vital Signs Temp 97.1 F 03/24/24 12:00 Pulse 60 03/24/24 12:00 Resp 20 03/24/24 12:00 BP 171/90 H 03/24/24 12:00 Pulse Ox 100 03/24/24 12:00 O2 Del Method CPAP 03/24/24 12:00 O2 Flow Rate 2 03/23/24 19:54 BMI result Body Mass Index 28.3 Const: General: cooperative and no acute distress Nutritional Appearance: w ell nourished Orientation/consciousness: patient oriented x3 Limitations: no limitations HEENT: Head: Yes normocephalic and Yes atraumatic Ears: hearing grossly normal bilaterally Resp: Effort & Inspection: normal respiratory effort, no audible wheezes, no cough and no respiratory distress Cardio: Jugular venous distension: no JVD GI: Inspection: Yes normal to inspection Skin: Other: Warm, dry, no rash Neuro: General: patient oriented x3 Extrem: Other: Left foot with a prior amputation of the great toe with a well-healed incision. There is also an incision extending down the lower tib-fib from prior orthopedic surgery. An open wound is noted at the plantar surface of the left foot. This is located at a proximally the distal metatarsal head of the 1st and 2nd toes. No erythema is appreciated in the foot although the risk some palpable tenderness especially over the 1st metatarsal. No fluctuance or subcutaneous emphysema is appreciated. No skin necrosis is appreciated. Ankle/foot/toe images: 1. Left great toe amputation 2. Site of open wounds left foot plantar surface proximally 1.5-2 cm in diameter. Results Labs 03/24/24 06:54 03/24/24 12:20 Labs: Abnormal lab results 03/23/24 03/23/24 03/23/24 Range/Units 12:27 12:28 13:04 WBC (4.8-10.8) X10*3/uL Hgb (14.0-18.0) g/dl Hct (42.0-52.0) % MCH (27.0-33.0) pg MCHC (31.0-36.0) g/dl RDW (11.0-16.0) % Plt Count (160-400) X10*3/uL ESR 69 H (0-15) MM/HR Potassium (3.3-5.1) mmol/L Anion Gap (12-20) BUN (9-16) mg/dL POC Glucose 376 H* (60-115) mg/dL Random Glucose (60-115) mg/dL Lactic Acid (0.5-2.0) mmol/L Lactic Acid F/U @ 2Hr (0.5-2.0) mmol/L Magnesium (1.6-2.6) mg/dL AST (5-37) U/L Alkaline Phosphatase (39-117) U/L C-Reactive Protein (< or = 0.50) mg/dL B-Natriuretic Peptide 520 H (<100) pg/mL Albumin (3.5-5.0) g/dL Random Vancomycin (15-20) mcg/mL 03/23/24 03/23/24 03/23/24 Range/Units 13:21 15:22 16:17 WBC (4.8-10.8) X10*3/uL Hgb (14.0-18.0) g/dl Hct (42.0-52.0) % MCH (27.0-33.0) pg MCHC (31.0-36.0) g/dl RDW (11.0-16.0) % Plt Count (160-400) X10*3/uL ESR (0-15) MM/HR Potassium (3.3-5.1) mmol/L Anion Gap 11 L (12-20) BUN (9-16) mg/dL POC Glucose 275 H (60-115) mg/dL Random Glucose 406 H* (60-115) mg/dL Lactic Acid 3.9 H* (0.5-2.0) mmol/L Lactic Acid F/U @ 2Hr 2.3 H* (0.5-2.0) mmol/L Magnesium 2.7 H (1.6-2.6) mg/dL AST 40 H (5-37) U/L Alkaline Phosphatase 126 H (39-117) U/L C-Reactive Protein 20.74 H (< or = 0.50) mg/dL B-Natriuretic Peptide (<100) pg/mL Albumin 2.9 L (3.5-5.0) g/dL Random Vancomycin (15-20) mcg/mL 03/23/24 03/23/24 03/24/24 Range/Units 17:06 19:54 06:54 WBC 12.7 H (4.8-10.8) X10*3/uL Hgb 11.1 L (14.0-18.0) g/dl Hct 39.6 L (42.0-52.0) % MCH 22.4 L (27.0-33.0) pg MCHC 28.0 L (31.0-36.0) g/dl RDW 18.0 H (11.0-16.0) % Plt Count 483 H (160-400) X10*3/uL ESR (0-15) MM/HR Potassium 6.2 H* D (3.3-5.1) mmol/L Anion Gap (12-20) BUN 22 H (9-16) mg/dL POC Glucose 146 H 241 H (60-115) mg/dL Random Glucose 280 H (60-115) mg/dL Lactic Acid (0.5-2.0) mmol/L Lactic Acid F/U @ 2Hr (0.5-2.0) mmol/L Magnesium (1.6-2.6) mg/dL AST (5-37) U/L Alkaline Phosphatase (39-117) U/L C-Reactive Protein (< or = 0.50) mg/dL B-Natriuretic Peptide (<100) pg/mL Albumin (3.5-5.0) g/dL Random Vancomycin (15-20) mcg/mL 03/24/24 03/24/24 03/24/24 Range/Units 07:23 10:55 11:52 WBC (4.8-10.8) X10*3/uL Hgb (14.0-18.0) g/dl Hct (42.0-52.0) % MCH (27.0-33.0) pg MCHC (31.0-36.0) g/dl RDW (11.0-16.0) % Plt Count (160-400) X10*3/uL ESR (0-15) MM/HR Potassium (3.3-5.1) mmol/L Anion Gap (12-20) BUN (9-16) mg/dL POC Glucose 242 H 291 H (60-115) mg/dL Random Glucose (60-115) mg/dL Lactic Acid (0.5-2.0) mmol/L Lactic Acid F/U @ 2Hr (0.5-2.0) mmol/L Magnesium (1.6-2.6) mg/dL AST (5-37) U/L Alkaline Phosphatase (39-117) U/L C-Reactive Protein (< or = 0.50) mg/dL B-Natriuretic Peptide (<100) pg/mL Albumin (3.5-5.0) g/dL Random Vancomycin 22.0 H (15-20) mcg/mL Short CBC 03/24/24 Range/Units 06:54 WBC 12.7 H (4.8-10.8) X10*3/uL Hgb 11.1 L (14.0-18.0) g/dl Hct 39.6 L (42.0-52.0) % Plt Count 483 H (160-400) X10*3/uL BMP 03/23/24 03/24/24 03/24/24 13:21 06:54 12:20 Sodium 136 138 Potassium 4.1 6.2 H* D 5.0 Chloride 101 101 Carbon Dioxide 28 28 BUN 13 22 H Creatinine 0.96 1.22 Calcium 8.6 D 9.4 D Liver Function 03/23/24 Range/Units 13:21 Total Bilirubin 0.3 (0.0-1.0) mg/dL Direct Bilirubin 0.2 (0.0-0.5) mg/dL AST 40 H (5-37) U/L ALT 24 (0-40) U/L Alkaline Phosphatase 126 H (39-117) U/L Albumin 2.9 L (3.5-5.0) g/dL All other labs normal. Assessment and Plan (1) Foot ulcer, left: Qualifiers: Non-pressure ulcer stage: with muscle involvement without evidence of necrosis Qualified Code(s): L97.525 - Non-pressure chronic ulcer of other part of left foot with muscle involvement without evidence of necrosis Status: Acute Plan 58-year-old male patient with multiple medical problems including diabetes mellitus type 2 presenting with left foot pain. He has a prior history of a left great toe amputation and now has a nonhealing wound of the plantar surface of the left foot. Workup with CT left foot reveals no osteomyelitis however there is evidence of subcutaneous air around the foot. Examination does reveal some mild swelling especially in the 2nd toe but no gross evidence of fasciitis. CT findings are certainly very concerning however would recommend continuing the IV antibiotics with close clinical follow-up. Unfortunately should his symptoms worsen, he may require a below the knee amputation. We will continue to monitor during his hospitalization. Agree with wound care consultation as well. Procedures Date of Service Date of Service: 03/24/24
[2024-03-24] MEDS: Clindamycin Phosphate/D5W 900 MG/50 ML PIGGYBACK 50 MG IV ×2 (14:06→21:48)
[2024-03-24 15:51] LABS: Glucose, Whole Blood 263 mg/dL (60-115)
[2024-03-24 19:50] LABS: Glucose, Whole Blood 258 mg/dL (60-115)
[2024-03-24] MEDS: Insulin Glargine,Hum.rec.anlog 100 UNIT/ML 10 ML VIAL 15 UNIT SUBCUT (19:55)
[2024-03-24] MEDS: Sennosides 8.6 MG TABLET 17.2 MG PO (19:56)
[2024-03-24] MEDS: Melatonin 3 MG TABLET PO (19:56)
[2024-03-24] MEDS: vancomycin HCL 1,250 MG in 0.9 % Sodium Chloride 250 ML 166.67 MG IV (22:56)
[2024-03-25] VITALS (11 sets, daily range): BP systolic 96–119; BP diastolic 59–73; PULSE 59–90; RESP 16–26; TEMP 36.1–36.6; O2SAT 90–98
[2024-03-25] MEDS: cefEPime HCl 2 GM in 0.9 % Sodium Chloride 50 ML IV ×2 (01:20→12:40)
[2024-03-25] MEDS: methylPREDNISolone Sod Succ 40 MG/ML VIAL IVPUSH ×2 (03:30→16:42)
[2024-03-25] MEDS: Morphine Sulfate 2 MG/ML CARTRIDGE IVPUSH ×5 (03:30→20:59)
[2024-03-25] MEDS: Omeprazole 20 MG CAPSULE.DR PO (06:22)
[2024-03-25] MEDS: Clindamycin Phosphate/D5W 900 MG/50 ML PIGGYBACK 50 MG IV ×3 (06:22→20:59)
[2024-03-25 07:55] LABS: Anion Gap 16 (12-20); Blood Urea Nitrogen 48 mg/dL (9-16); Calcium 9.2 mg/dL (8.4-10.2); Carbon Dioxide 25 mmol/L (22-29); Chloride 99 mmol/L (96-108); Estimated Glomerular Filt Rate 54; Glucose Random 262 mg/dL (60-115); Hematocrit 38.4 % (42.0-52.0); Hemoglobin 11.1 g/dl (14.0-18.0); Mean Corpuscular HGB Conc 28.9 g/dl (31.0-36.0); Mean Corpuscular Hemoglobin 22.7 pg (27.0-33.0); Mean Corpuscular Volume 78.4 fL (80.0-98.0); Mean Platelet Volume 10.1 fL (9.4-12.4); NRBC Pct Auto 0.7 /100WBC (0.0-0.2); Platelet Count 562 X10*3/uL (160-400); Potassium 5.6 mmol/L (3.3-5.1); Red Cell Distribution Width 17.9 % (11.0-16.0); Sodium 134 mmol/L (135-145); White Blood Count 21.2 X10*3/uL (4.8-10.8)
[2024-03-25 08:00] LABS: Glucose, Whole Blood 248 mg/dL (60-115)
[2024-03-25] MEDS: levalbuterol HCL 1.25 MG/3 ML VIAL.NEB INHALE ×3 (08:02→16:46)
[2024-03-25] MEDS: Fluticasone/Vilanterol 100/25 BLST.W.DEV 1 PUFF INHALE (08:02)
[2024-03-25] MEDS: Insulin Lispro 100 UNIT/ML 3 ML VIAL SUBCUT ×4 (08:25→21:00)
[2024-03-25] MEDS: 0.9 % Sodium Chloride Flush 3 ML SYRINGE IVFLUSH ×2 (08:26→16:43)
[2024-03-25] MEDS: Gabapentin 300 MG CAPSULE PO ×3 (08:27→20:59)
[2024-03-25] MEDS: Metoprolol Succinate ER 100 MG TAB.ER.24H PO (08:27)
[2024-03-25] MEDS: Colchicine 0.6 MG TABLET PO (08:27)
[2024-03-25] MEDS: Amiodarone HCL 200 MG TABLET PO (08:27)
[2024-03-25] MEDS: Sertraline HCL 25 MG TABLET PO (08:28)
[2024-03-25] MEDS: Thiamine HCL 100 MG TABLET PO (08:28)
--- NOTE | 2024-03-25 08:42 | P.PNGS_ITS ---
Subjective Subjective Date of Service: 03/25/24 Interval history: Reports no change in foot pain, no worse, no better. Does feel his left foot is cold. Physical Exam 2 Vital Signs: Vital Signs: Last Vital Signs Temp 97.9 F 03/25/24 07:21 Pulse 90 03/25/24 08:02 Resp 26 H 03/25/24 08:02 BP 119/59 L 03/25/24 07:21 Pulse Ox 92 03/25/24 07:21 O2 Del Method Room Air 03/25/24 07:21 O2 Flow Rate 2 03/23/24 19:54 BMI result Body Mass Index 28.3 Const: General: no acute distress Nutritional Appearance: well nourished Orientation/consciousness: patient oriented x3 Resp: Effort & Inspection: normal respiratory effort Skin: Other: No rash, no erythema Neuro: General: patient oriented x3 Extrem: Other: Open wound left plantar surface of foot unchanged. Minimal edema left foot when dependent, nontender, no erythema, no fluctuance, no palpable subcutaneous emphysema. Skin is cool to touch at the toes and foot to the level of the ankle. Objective Data Active Medications Acetaminophen (Acetaminophen 325 Mg Tablet) 650 mg PO Q6H PRN PRN Reason: Pain, Mild (Pain Scale 1-3), fever or headache Last Admin: 03/24/24 08:23 Dose: 650 mg Documented By: YUNIOR Albuterol Sulfate (Albuterol Sulfate (0.083%) 2.5 Mg/3 Ml Vial.Neb) 2.5 mg INHALE RQ6H PRN PRN Reason: Shortness Of Breath Or Wheezing Amiodarone HCl (Amiodarone Hcl 200 Mg Tablet) 200 mg PO DAILY [facility] Last Admin: 03/25/24 08:27 Dose: 200 mg Documented By: JEETMODUANE Apixaban (Apixaban 5 Mg Tablet) 5 mg PO BID [facility] Last Admin: 03/24/24 08:19 Dose: 5 mg Documented By: YUNIOR Colchicine (Colchicine 0.6 Mg Tablet) 0.6 mg PO DAILY [facility] Last Admin: 03/25/24 08:27 Dose: 0.6 mg Documented By: JEETMODUANE Fluticasone/Vilanterol (Fluticasone/Vilanterol 100/25 Blst.W.Dev) 1 puff INHALE RDAILY [facility] Last Admin: 03/25/24 08:02 Dose: 1 puff Documented By: GABBIE Gabapentin (Gabapentin 300 Mg Capsule) 300 mg PO TID [facility] Last Admin: 03/25/24 08:27 Dose: 300 mg Documented By: HALEIGH Glucose (Glucose Gel 15 Gm Gel..Gram.) 15 gm PO Q15M PRN; Protocol PRN Reason: per Hypoglycemia Standing Ord. Dextrose (D10) 250 mls @ 750 mls/hr IV Q15M PRN; Protocol PRN Reason: per Hypoglycemia Standing Ord. Cefepime HCl 2 gm/ Sodium (Chloride) 50 mls @ 100 mls/hr IV Q12H [facility] Last Infusion: 03/25/24 01:50 Dose: Infused Documented By: WHITNEY Vancomycin HCl 1,250 mg/ (Sodium Chloride) 250 mls @ 166.667 mls/hr IV Q24H [facility] Last Infusion: 03/25/24 00:26 Dose: Infused Documented By: WHITNEY Clindamycin Phosphate (Cleocin) 900 mg in 50 mls @ 50 mls/hr IV Q8H [facility] Last Infusion: 03/25/24 07:22 Dose: Infused Documented By: HALEIGH Insulin Glargine (Insulin Glargine,Hum.Rec.Anlog 100 Unit/Ml 10 Ml Vial) 15 unit SUBCUT BEDTIME [facility] Last Admin: 03/24/24 19:55 Dose: 15 unit Documented By: WHTINEY Insulin Human Lispro (Insulin Lispro 100 Unit/Ml 3 Ml Vial) 0 unit SUBCUT QIDACHS [facility]; Protocol Last Admin: 03/25/24 08:25 Dose: 4 unit Documented By: HALEIGH Levalbuterol HCl (Levalbuterol Hcl 1.25 Mg/3 Ml Vial.Neb) 1.25 mg INHALE RQ4H PRN PRN Reason: Shortness of Breath/Wheezing Last Admin: 03/24/24 08:22 Dose: 1.25 mg Documented By: DAVID Levalbuterol HCl (Levalbuterol Hcl 1.25 Mg/3 Ml Vial.Neb) 1.25 mg INHALE RQ6H [facility] Last Admin: 03/25/24 08:02 Dose: 1.25 mg Documented By: GABBIE Melatonin (Melatonin 3 Mg Tablet) 6 mg PO BEDTIME PRN PRN Reason: Insomnia Melatonin (Melatonin 3 Mg Tablet) 3 mg PO BEDTIME [facility] Last Admin: 03/24/24 19:56 Dose: 3 mg Documented By: WHITNEY Methylprednisolone Sodium Succinate (Methylprednisolone Sod Succ 40 Mg/Ml Vial) 40 mg IVPUSH Q12H [facility] Last Admin: 03/25/24 03:30 Dose: 40 mg Documented By: WHITNEY Metoprolol Succinate (Metoprolol Succinate Er 100 Mg Tab.Er.24h) 100 mg PO DAILY [facility]; Protocol Last Admin: 03/25/24 08:27 Dose: 100 mg Documented By: JEETMODUANE Morphine Sulfate (Morphine Sulfate 2 Mg/Ml Cartridge) 2 mg IVPUSH Q4H PRN; Protocol PRN Reason: Pain, Severe (Pain Scale 7-10) Last Admin: 03/25/24 08:30 Dose: 2 mg Documented By: HALEIGH Omeprazole (Omeprazole 20 Mg Capsule.) 20 mg PO DAILY@0630 [facility] Last Admin: 03/25/24 06:22 Dose: 20 mg Documented By: WHITNEY Pharmacy Consult (Consult Rx Vancomycin Dosing) 1 each MISCELLANE DAILY PRN PRN Reason: Consult order Senna (Sennosides 8.6 Mg Tablet) 17.2 mg PO BEDTIME [facility] Last Admin: 03/24/24 19:56 Dose: 17.2 mg Documented By: WHITNEY Sertraline HCl (Sertraline Hcl 25 Mg Tablet) 25 mg PO DAILY [facility] Last Admin: 03/25/24 08:28 Dose: 25 mg Documented By: HALEIGH Sodium Chloride (0.9 % Sodium Chloride Flush 3 Ml Syringe) 3 ml IVFLUSH QSHIFT [facility] Last Admin: 03/25/24 08:26 Dose: 3 ml Documented By: JEETMORP Thiamine HCl (Thiamine Hcl 100 Mg Tablet) 100 mg PO DAILY [facility] Last Admin: 03/25/24 08:28 Dose: 100 mg Documented By: HAYLEERP Torsemide (Torsemide 20 Mg Tablet) 20 mg PO Q48H [facility]; Protocol Last Admin: 03/24/24 08:34 Dose: Not Given Documented By: YUNIOR Non-Admin Reason: Physician Held Med Labs 03/25/24 07:11 03/25/24 07:11 Labs: Laboratory Results - last 24 hr 03/24/24 03/24/24 03/24/24 10:55 11:52 15:46 MCV MCH MCHC RDW Plt Count MPV Absolute Nucleated RBC Nucleated RBC % (auto) Anion Gap Estim Creat Clear Calc Estimated GFR POC Glucose 291 H 263 H Random Glucose Calcium Random Vancomycin 22.0 H 03/24/24 03/25/24 03/25/24 19:46 07:11 07:27 MCV 78.4 L MCH 22.7 L MCHC 28.9 L RDW 17.9 H Plt Count 562 H MPV 10.1 Absolute Nucleated RBC 0.150 H Nucleated RBC % (auto) 0.7 H Anion Gap 16 Estim Creat Clear Calc 68.0 Estimated GFR 54 POC Glucose 258 H 248 H Random Glucose 262 H Calcium 9.2 Random Vancomycin Microbiology Microbiology Results: Microbiology 03/23/24 12:31 Blood Culture - Preliminary Blood - Venous No growth after 24 hours. 03/23/24 12:28 Blood Culture - Preliminary Blood - Venous No growth after 24 hours. Procedures Date of Service Date of Service: 03/25/24 Progress Note: A&P Assessment and plan (1) Foot ulcer, left: Status: Acute Plan Continued pain in the left foot with subcu air noted on CT in foot. WBC has increased. Patient currently on cefepime, clinda, and vanco. Exam reveals no significant change from yesterday with no evidence of skin necrosis but continued edema in the foot. Today the foot seems cooler with the touch. He has a prior history of vascular procedure performed in the left leg (Dr. Tee Leal). Would recommend arterial Doppler studies--exam ordered. Continue to monitor response to antibiotics. Time Spent With Patient Time: Total time managing care of this patient today ____ minutes. Quality Stroke Does the patient have a stroke diagnosis?: No VTE Prior VTE?: No VTE Risk Level:: Medical - moderate - high VTE Device Contraindication: N/A - Device Ordered VTE Drug Contraindication: N/A - Med Ordered
[2024-03-25 11:23] LABS: Glucose, Whole Blood 270 mg/dL (60-115)
--- NOTE | 2024-03-25 14:59 | P.PNIM_ITS ---
Subjective Subjective Date of Service: 03/25/24 Interval History: Seen and examined this morning Follow-up for diabetic foot wound, AFib, COPD exacerbation Persistent shortness of breath, heart rate improved, still with foot pain Review of Systems Review of Systems: Yes all other systems are reviewed and are negative Constitutional Constitutional: Denies chills and Denies fever(s) Cardiovascular Cardiovascular: Denies chest pain, Denies palpitations and Reports dyspnea Respiratory Respiratory: Reports dyspnea Gastrointestinal Gastrointestinal: Denies abdominal pain, Denies nausea and Denies vomiting Endocrine Endocrine: Denies palpitations Physical Exam 2 Vital Signs: Vital Signs: Last Vital Signs Temp 97.0 F 03/25/24 11:39 Pulse 62 03/25/24 11:39 Resp 16 03/25/24 11:39 BP 109/68 03/25/24 11:39 Pulse Ox 96 03/25/24 11:39 O2 Del Method Room Air 03/25/24 11:39 O2 Flow Rate 2 03/23/24 19:54 BMI result Body Mass Index 28.3 Appearing in no acute distress lung sounds are clear to auscultation heart regular rate rhythm, clear S1, S2 positive bowel sounds, abdomen is soft, nontender neuro patient is alert x3, no focal deficits Objective Data Active Medications Acetaminophen (Acetaminophen 325 Mg Tablet) 650 mg PO Q6H PRN PRN Reason: Pain, Mild (Pain Scale 1-3), fever or headache Last Admin: 03/24/24 08:23 Dose: 650 mg Documented By: YUNIOR Albuterol Sulfate (Albuterol Sulfate (0.083%) 2.5 Mg/3 Ml Vial.Neb) 2.5 mg INHALE RQ6H PRN PRN Reason: Shortness Of Breath Or Wheezing Amiodarone HCl (Amiodarone Hcl 200 Mg Tablet) 200 mg PO DAILY [facility] [place] Last Admin: 03/25/24 08:27 Dose: 200 mg Documented By: PODMORP Apixaban (Apixaban 5 Mg Tablet) 5 mg PO BID [facility] [place] Last Admin: 03/24/24 08:19 Dose: 5 mg Documented By: YUNIOR Colchicine (Colchicine 0.6 Mg Tablet) 0.6 mg PO DAILY [facility] [place] Last Admin: 03/25/24 08:27 Dose: 0.6 mg Documented By: JEETMODUANE Fluticasone/Vilanterol (Fluticasone/Vilanterol 100/25 Blst.W.Dev) 1 puff INHALE RDAILY [facility] [place] Last Admin: 03/25/24 08:02 Dose: 1 puff Documented By: GABBIE Gabapentin (Gabapentin 300 Mg Capsule) 300 mg PO TID [facility] [place] Last Admin: 03/25/24 08:27 Dose: 300 mg Documented By: HALEIGH Glucose (Glucose Gel 15 Gm Gel..Gram.) 15 gm PO Q15M PRN; Protocol PRN Reason: per Hypoglycemia Standing Ord. Dextrose (D10) 250 mls @ 750 mls/hr IV Q15M PRN; Protocol PRN Reason: per Hypoglycemia Standing Ord. Cefepime HCl 2 gm/ Sodium (Chloride) 50 mls @ 100 mls/hr IV Q12H [facility] [place] Last Infusion: 03/25/24 13:10 Dose: Infused Documented By: HALEIGH Vancomycin HCl 1,250 mg/ (Sodium Chloride) 250 mls @ 166.667 mls/hr IV Q24H [facility] [place] Last Infusion: 03/25/24 00:26 Dose: Infused Documented By: WHITNEY Clindamycin Phosphate (Cleocin) 900 mg in 50 mls @ 50 mls/hr IV Q8H [facility] [place] Last Admin: 03/25/24 14:45 Dose: 50 mls/hr Documented By: HALEIGH Insulin Glargine (Insulin Glargine,Hum.Rec.Anlog 100 Unit/Ml 10 Ml Vial) 15 unit SUBCUT BEDTIME [facility] [place] Last Admin: 03/24/24 19:55 Dose: 15 unit Documented By: WHITNEY Insulin Human Lispro (Insulin Lispro 100 Unit/Ml 3 Ml Vial) 0 unit SUBCUT QIDACHS [facility] [place]; Protocol Last Admin: 03/25/24 12:39 Dose: 6 unit Documented By: HALEIGH Levalbuterol HCl (Levalbuterol Hcl 1.25 Mg/3 Ml Vial.Neb) 1.25 mg INHALE RQ4H PRN PRN Reason: Shortness of Breath/Wheezing Last Admin: 03/24/24 08:22 Dose: 1.25 mg Documented By: DAVID Levalbuterol HCl (Levalbuterol Hcl 1.25 Mg/3 Ml Vial.Neb) 1.25 mg INHALE RQ6H [facility] [place] Last Admin: 03/25/24 11:20 Dose: 1.25 mg Documented By: GABBIE Melatonin (Melatonin 3 Mg Tablet) 6 mg PO BEDTIME PRN PRN Reason: Insomnia Melatonin (Melatonin 3 Mg Tablet) 3 mg PO BEDTIME [facility] [place] Last Admin: 03/24/24 19:56 Dose: 3 mg Documented By: WHITNEY Methylprednisolone Sodium Succinate (Methylprednisolone Sod Succ 40 Mg/Ml Vial) 40 mg IVPUSH Q12H [facility] [place] Last Admin: 03/25/24 03:30 Dose: 40 mg Documented By: WHITNEY Metoprolol Succinate (Metoprolol Succinate Er 100 Mg Tab.Er.24h) 100 mg PO DAILY [facility] [place]; Protocol Last Admin: 03/25/24 08:27 Dose: 100 mg Documented By: HALEIGH Morphine Sulfate (Morphine Sulfate 2 Mg/Ml Cartridge) 2 mg IVPUSH Q4H PRN; Protocol PRN Reason: Pain, Severe (Pain Scale 7-10) Last Admin: 03/25/24 12:44 Dose: 2 mg Documented By: HALEIGH Omeprazole (Omeprazole 20 Mg Capsule.Dr) 20 mg PO DAILY@0630 [facility] [place] Last Admin: 03/25/24 06:22 Dose: 20 mg Documented By: WHITNEY Pharmacy Consult (Consult Rx Vancomycin Dosing) 1 each MISCELLANE DAILY PRN PRN Reason: Consult order Senna (Sennosides 8.6 Mg Tablet) 17.2 mg PO BEDTIME [facility] [place] Last Admin: 03/24/24 19:56 Dose: 17.2 mg Documented By: WHITNEY Sertraline HCl (Sertraline Hcl 25 Mg Tablet) 25 mg PO DAILY [facility] [place] Last Admin: 03/25/24 08:28 Dose: 25 mg Documented By: JEETMORP Sodium Chloride (0.9 % Sodium Chloride Flush 3 Ml Syringe) 3 ml IVFLUSH QSHIFT [facility] [place] Last Admin: 03/25/24 08:26 Dose: 3 ml Documented By: JEETMORP Thiamine HCl (Thiamine Hcl 100 Mg Tablet) 100 mg PO DAILY [facility] [place] Last Admin: 03/25/24 08:28 Dose: 100 mg Documented By: JEETMORP Torsemide (Torsemide 20 Mg Tablet) 20 mg PO Q48H [facility] [place]; Protocol Last Admin: 03/24/24 08:34 Dose: Not Given Documented By: YUNIOR Non-Admin Reason: Physician Held Med Labs 03/25/24 07:11 03/25/24 07:11 Labs: Laboratory Results - last 24 hr 03/24/24 03/24/24 03/25/24 15:46 19:46 07:11 MCV 78.4 L MCH 22.7 L MCHC 28.9 L RDW 17.9 H Plt Count 562 H MPV 10.1 Absolute Nucleated RBC 0.150 H Nucleated RBC % (auto) 0.7 H Anion Gap 16 Estim Creat Clear Calc 68.0 Estimated GFR 54 POC Glucose 263 H 258 H Random Glucose 262 H Calcium 9.2 03/25/24 03/25/24 07:27 11:15 MCV MCH MCHC RDW Plt Count MPV Absolute Nucleated RBC Nucleated RBC % (auto) Anion Gap Estim Creat Clear Calc Estimated GFR POC Glucose 248 H 270 H Random Glucose Calcium Microbiology Microbiology Results: Microbiology 03/23/24 12:31 Blood Culture - Preliminary Blood - Venous No growth after 48 hours. 03/23/24 12:28 Blood Culture - Preliminary Blood - Venous No growth after 48 hours. Assessment and Plan (1) Foot ulcer, left: Status: Acute (2) Hyperkalemia: Status: Acute (3) Cellulitis: Status: Acute Plan This is a 58-year-old male with a history of atrial fibrillation on Eliquis, ischemic cardiomyopathy status post AICD, coronary artery disease status post PCI, COPD, KIMANI on CPAP among others who presents to the emergency department with shortness of breath and redness of his foot found to have COPD exacerbation, diabetic foot ulcer, atrial fibrillation with rapid ventricular response, hyperglycemia Acute respiratory failure with hypoxia due to exacerbation of COPD Continue IV Solu-Medrol Scheduled and p.r.n. breathing treatments Wean supplemental oxygen as needed sepsis due to COPD vs diabetic foot infection meets sepsis criteria with leukocytosis, tachycardia, tachypnea- all resolved Elevated lactic acid 3.9, repeat trending down Blood cultures pending Atrial fibrillation with rapid ventricular response converted to sinus Continue metoprolol, amiodarone Hold Eliquis for possible surgical intervention seen by Cardiology left diabetic foot wound gas on xray -> CT showing soft tissue swelling, synovitis, ? Phlegmon versus early abscess as well as findings concerning for necrotizing fasciitis-> seen by general surgery, no plan for surgery at this time, but will follow closely and if worsens may need BKA. continue IV vancomycin, cefepime (03/23) will add clindamycin hold Eliquis neg blood cultures Acute hyperkalemia Treated with albuterol, insulin, Lokelma No EKG changes Repeat improved HFrEF ECHO 03/16 with improvement of EF to 30% no acute exacerbation continue torsemide IDDM with hyperglycemia BS elevated on arrival, received insulin in ED SSI, POCs Lantus, titrate prn hold jardiance History of pericardial effusion Appears slightly reduced in size on recent echocardiogram KIMANI CPAP at bedtime mood disorder continue baseline medications dvt ppx - eliquis on hold; mechanical devices Attending Dr. Dave code status -DNR/DNI Will need ongoing inpatient hospitalization for multiple acute medical issues requiring IV steroids, IV antibiotics, specialist evaluation and likely surgical intervention Quality Stroke Does the patient have a stroke diagnosis?: No VTE Prior VTE?: No VTE Risk Level:: Medical - moderate - high VTE Device Contraindication: N/A - Device Ordered VTE Drug Contraindication: N/A - Med Ordered
[2024-03-25 16:10] LABS: Glucose, Whole Blood 248 mg/dL (60-115)
[2024-03-25 20:49] LABS: Glucose, Whole Blood 206 mg/dL (60-115)
[2024-03-25] MEDS: Melatonin 3 MG TABLET PO (20:59)
[2024-03-25] MEDS: Sennosides 8.6 MG TABLET 17.2 MG PO (20:59)
[2024-03-25] MEDS: Insulin Glargine,Hum.rec.anlog 100 UNIT/ML 10 ML VIAL 15 UNIT SUBCUT (21:00)
[2024-03-25 21:25] LABS: Vancomycin Random 22.7 mcg/mL (15-20)
[2024-03-26] VITALS (17 sets, daily range): BP systolic 84–101; BP diastolic 52–66; PULSE 59–63; RESP 16–20; TEMP 36.2–36.9; O2SAT 92–98
[2024-03-26] MEDS: 0.9 % Sodium Chloride Flush 3 ML SYRINGE IVFLUSH ×4 (00:15→22:01)
[2024-03-26] MEDS: cefEPime HCl 2 GM in 0.9 % Sodium Chloride 50 ML IV ×2 (00:16→14:03)
[2024-03-26] MEDS: Morphine Sulfate 2 MG/ML CARTRIDGE IVPUSH ×4 (01:03→16:39)
[2024-03-26] MEDS: Clindamycin Phosphate/D5W 900 MG/50 ML PIGGYBACK 50 MG IV ×3 (06:01→22:00)
[2024-03-26] MEDS: methylPREDNISolone Sod Succ 40 MG/ML VIAL IVPUSH ×2 (06:01→16:39)
[2024-03-26] MEDS: Omeprazole 20 MG CAPSULE.DR PO (06:01)
[2024-03-26] MEDS: levalbuterol HCL 1.25 MG/3 ML VIAL.NEB INHALE ×3 (06:10→20:13)
[2024-03-26 07:18] LABS: Creatinine Clr Calc Pharmacy 48.4; Estimated Glomerular Filt Rate 37
[2024-03-26 07:43] LABS: Glucose, Whole Blood 166 mg/dL (60-115)
[2024-03-26 07:50] LABS: Hematocrit 39.4 % (42.0-52.0); Hemoglobin 11.5 g/dl (14.0-18.0); Mean Corpuscular HGB Conc 29.2 g/dl (31.0-36.0); Mean Corpuscular Hemoglobin 22.5 pg (27.0-33.0); Mean Platelet Volume 9.8 fL (9.4-12.4); Platelet Count 512 X10*3/uL (160-400); Red Blood Count 5.12 X10*6/uL (4.60-5.80); Red Cell Distribution Width 18.4 % (11.0-16.0); White Blood Count 19.7 X10*3/uL (4.8-10.8)
[2024-03-26 07:51] LABS: NRBC Pct Auto 1.3 /100WBC (0.0-0.2)
[2024-03-26 08:02] LABS: Anion Gap 18 (12-20); Blood Urea Nitrogen 74 mg/dL (9-16); Calcium 8.6 mg/dL (8.4-10.2); Carbon Dioxide 22 mmol/L (22-29); Chloride 98 mmol/L (96-108); Glucose Random 163 mg/dL (60-115); Potassium 5.5 mmol/L (3.3-5.1); Sodium 132 mmol/L (135-145)
[2024-03-26] MEDS: Sertraline HCL 25 MG TABLET PO (08:30)
[2024-03-26] MEDS: Amiodarone HCL 200 MG TABLET PO (08:30)
[2024-03-26] MEDS: Colchicine 0.6 MG TABLET PO (08:30)
[2024-03-26] MEDS: Gabapentin 300 MG CAPSULE PO ×3 (08:30→21:59)
[2024-03-26] MEDS: Torsemide 20 MG TABLET PO (08:30)
[2024-03-26] MEDS: Metoprolol Succinate ER 100 MG TAB.ER.24H PO (08:30)
[2024-03-26] MEDS: Thiamine HCL 100 MG TABLET PO (08:30)
[2024-03-26] MEDS: Insulin Lispro 100 UNIT/ML 3 ML VIAL SUBCUT ×4 (08:30→22:01)
[2024-03-26] MEDS: Fluticasone/Vilanterol 100/25 BLST.W.DEV 1 PUFF INHALE (08:40)
--- NOTE | 2024-03-26 09:29 | P.PNGS_ITS ---
Subjective Subjective Date of Service: 03/26/24 Interval history: Foot symptoms are somewhat improved this morning. Still has some pain at the toes. Physical Exam 2 Vital Signs: Vital Signs: Last Vital Signs Temp 98.0 F 03/26/24 08:00 Pulse 63 03/26/24 08:41 Resp 19 03/26/24 08:41 BP 93/61 03/26/24 08:30 Pulse Ox 92 03/26/24 08:00 O2 Del Method CPAP 03/26/24 04:00 O2 Flow Rate 2 03/23/24 19:54 BMI result Body Mass Index 28.3 Const: General: no acute distress Nutritional Appearance: well nourished Orientation/consciousness: patient oriented x3 Resp: Effort & Inspection: normal respiratory effort Skin: Other: No rash, no erythema Neuro: General: patient oriented x3 Extrem: Other: Open wound left plantar surface of foot draining minimal purulent discharge. No surrounding erythema or fluctuance appreciated. Foot is nontender to palpation. No subcu emphysema appreciated. Coolness felt mainly in the forefoot but capillary refill is noted. No mo ischemia or skin necrosis is identified. The wound was dressed with dry sterile dressings followed by 4 in [place]. Objective Data Active Medications Acetaminophen (Acetaminophen 325 Mg Tablet) 650 mg PO Q6H PRN PRN Reason: Pain, Mild (Pain Scale 1-3), fever or headache Last Admin: 03/24/24 08:23 Dose: 650 mg Documented By: YUNIOR Albuterol Sulfate (Albuterol Sulfate (0.083%) 2.5 Mg/3 Ml Vial.Neb) 2.5 mg INHALE RQ6H PRN PRN Reason: Shortness Of Breath Or Wheezing Amiodarone HCl (Amiodarone Hcl 200 Mg Tablet) 200 mg PO DAILY [facility] Last Admin: 03/26/24 08:30 Dose: 200 mg Documented By: ANYI Apixaban (Apixaban 5 Mg Tablet) 5 mg PO BID [facility] Last Admin: 03/24/24 08:19 Dose: 5 mg Documented By: YUNIOR Colchicine (Colchicine 0.6 Mg Tablet) 0.6 mg PO DAILY [facility] Last Admin: 03/26/24 08:30 Dose: 0.6 mg Documented By: ANYI Fluticasone/Vilanterol (Fluticasone/Vilanterol 100/25 Blst.W.Dev) 1 puff INHALE RDAILY [facility] Last Admin: 03/26/24 08:40 Dose: 1 puff Documented By: KEO Gabapentin (Gabapentin 300 Mg Capsule) 300 mg PO TID [facility] Last Admin: 03/26/24 08:30 Dose: 300 mg Documented By: ANYI Glucose (Glucose Gel 15 Gm Gel..Gram.) 15 gm PO Q15M PRN; Protocol PRN Reason: per Hypoglycemia Standing Ord. Dextrose (D10) 250 mls @ 750 mls/hr IV Q15M PRN; Protocol PRN Reason: per Hypoglycemia Standing Ord. Cefepime HCl 2 gm/ Sodium (Chloride) 50 mls @ 100 mls/hr IV Q12H [facility] Last Infusion: 03/26/24 01:04 Dose: Infused Documented By: ELANA Clindamycin Phosphate (Cleocin) 900 mg in 50 mls @ 50 mls/hr IV Q8H [facility] Last Infusion: 03/26/24 07:07 Dose: Infused Documented By: ELANA Vancomycin HCl 750 mg/ Sodium (Chloride) 265 mls @ 265 mls/hr IV Q24H [facility] Insulin Glargine (Insulin Glargine,Hum.Rec.Anlog 100 Unit/Ml 10 Ml Vial) 15 unit SUBCUT BEDTIME [facility] Last Admin: 03/25/24 21:00 Dose: 15 unit Documented By: ALIE Insulin Human Lispro (Insulin Lispro 100 Unit/Ml 3 Ml Vial) 0 unit SUBCUT QIDACHS [facility]; Protocol Last Admin: 03/26/24 08:30 Dose: 2 unit Documented By: ANYI Levalbuterol HCl (Levalbuterol Hcl 1.25 Mg/3 Ml Vial.Neb) 1.25 mg INHALE RQ4H PRN PRN Reason: Shortness of Breath/Wheezing Last Admin: 03/24/24 08:22 Dose: 1.25 mg Documented By: DAVID Levalbuterol HCl (Levalbuterol Hcl 1.25 Mg/3 Ml Vial.Neb) 1.25 mg INHALE RQ6H [facility] Last Admin: 03/26/24 06:10 Dose: 1.25 mg Documented By: VELMA Melatonin (Melatonin 3 Mg Tablet) 6 mg PO BEDTIME PRN PRN Reason: Insomnia Melatonin (Melatonin 3 Mg Tablet) 3 mg PO BEDTIME [facility] Last Admin: 03/25/24 20:59 Dose: 3 mg Documented By: ALIE Methylprednisolone Sodium Succinate (Methylprednisolone Sod Succ 40 Mg/Ml Vial) 40 mg IVPUSH Q12H [facility] Last Admin: 03/26/24 06:01 Dose: 40 mg Documented By: ELANA Metoprolol Succinate (Metoprolol Succinate Er 100 Mg Tab.Er.24h) 100 mg PO DAILY [facility]; Protocol Last Admin: 03/26/24 08:30 Dose: 100 mg Documented By: ANYI Morphine Sulfate (Morphine Sulfate 2 Mg/Ml Cartridge) 2 mg IVPUSH Q4H PRN; Protocol PRN Reason: Pain, Severe (Pain Scale 7-10) Last Admin: 03/26/24 06:08 Dose: 2 mg Documented By: ELANA Omeprazole (Omeprazole 20 Mg Capsule.Dr) 20 mg PO DAILY@0630 [facility] Last Admin: 03/26/24 06:01 Dose: 20 mg Documented By: ELANA Pharmacy Consult (Consult Rx Vancomycin Dosing) 1 each MISCELLANE DAILY PRN PRN Reason: Consult order Senna (Sennosides 8.6 Mg Tablet) 17.2 mg PO BEDTIME [facility] Last Admin: 03/25/24 20:59 Dose: 17.2 mg Documented By: ALIE Sertraline HCl (Sertraline Hcl 25 Mg Tablet) 25 mg PO DAILY [facility] Last Admin: 03/26/24 08:30 Dose: 25 mg Documented By: ANYI Sodium Chloride (0.9 % Sodium Chloride Flush 3 Ml Syringe) 3 ml IVFLUSH QSHIFT [facility] Last Admin: 03/26/24 08:32 Dose: 3 ml Documented By: ANYI Thiamine HCl (Thiamine Hcl 100 Mg Tablet) 100 mg PO DAILY [facility] Last Admin: 03/26/24 08:30 Dose: 100 mg Documented By: ANYI Torsemide (Torsemide 20 Mg Tablet) 20 mg PO Q48H [facility]; Protocol Last Admin: 03/26/24 08:30 Dose: 20 mg Documented By: ANYI Labs 03/26/24 06:27 03/26/24 06:27 Labs: Laboratory Results - last 24 hr 03/25/24 03/25/24 03/25/24 11:15 16:07 20:46 MCV MCH MCHC RDW Plt Count MPV Absolute Nucleated RBC Nucleated RBC % (auto) Hold Purple Top Anion Gap Estim Creat Clear Calc Estimated GFR POC Glucose 270 H 248 H 206 H Random Glucose Calcium Random Vancomycin 03/25/24 03/26/24 03/26/24 20:54 06:27 07:39 MCV 77.0 L MCH 22.5 L MCHC 29.2 L RDW 18.4 H Plt Count 512 H MPV 9.8 Absolute Nucleated RBC 0.260 H Nucleated RBC % (auto) 1.3 H Hold Purple Top SEE NOTE Anion Gap 18 Estim Creat Clear Calc 48.4 Estimated GFR 37 POC Glucose 166 H Random Glucose 163 H Calcium 8.6 D Random Vancomycin 22.7 H Imaging Abdominal x-ray: Radiologist's impression: Impressions EXAMINATION: US NONINVASIVE ASSESSMENT OF THE LEFT LOWER EXTREMITY WITH ARTERIAL DUPLEX CLINICAL INFORMATION: Cold left foot, diabetic foot ulcer COMPARISON: 03/29/2023 TECHNIQUE: Duplex Doppler techniques with waveform analysis and measurement of velocities in the common femoral, profunda femoris, superficial femoral, popliteal and tibial arteries were performed. Technically challenging exam due to patient motion FINDINGS: There are delayed arterial upstroke suggesting inflow disease. LEFT LOWER EXTREMITY DUPLEX ULTRASOUND: Common femoral artery: 122 cm/s. Diastolic flow reversal: Triphasic Profunda femoris artery: 79 cm/s. Diastolic flow reversal: Triphasic Superficial femoral artery (proximal): 118 cm/s. Diastolic flow reversal: Triphasic Superficial femoral artery (mid): 83 cm/s. Diastolic flow reversal: Biphasic Superficial femoral artery (distal): 57 cm/s. Diastolic flow reversal: Triphasic Popliteal artery: 47 cm/s Diastolic flow reversal: Triphasic Posterior tibial artery: 11 cm/s Diastolic flow reversal: Monophasic US/US arterial duplex LE LT IMPRESSION: There are delayed arterial upstroke suggesting inflow disease. There is monophasic flow in the posterior tibial artery. Electronically signed by: Csear Llamas MD 03/25/2024 11:48 AM EDT Microbiology Microbiology Results: Microbiology 03/23/24 12:31 Blood Culture - Preliminary Blood - Venous No growth after 48 hours. 03/23/24 12:28 Blood Culture - Preliminary Blood - Venous No growth after 48 hours. Procedures Date of Service Date of Service: 03/26/24 Progress Note: A&P Assessment and plan (1) Foot ulcer, left: Status: Acute Plan Overall the patient is mildly improved today with decreased foot pain. WBC remains elevated but improved from yesterday. Wounds are draining a small amount of purulence discharge but there is no evidence of an undrained abscess, skin necrosis or erythema. Foot is cool but not cold or ischemic. There is no evidence of skin necrosis. Doppler studies noted with evidence of inflow disease. Agree with vascular surgery consultation. Continue IV antibiotics. Awaiting wound care consultation. Time Spent With Patient Time: Total time managing care of this patient today ____ minutes. Quality Stroke Does the patient have a stroke diagnosis?: No VTE Prior VTE?: No VTE Risk Level:: Medical - moderate - high VTE Device Contraindication: N/A - Device Ordered VTE Drug Contraindication: N/A - Med Ordered
--- NOTE | 2024-03-26 09:53 | HO.PM.IMPN ---
Subjective Subjective Date of Service: 03/26/24 Interval History: Seen and examined this morning Follow-up for diabetic foot wound, AFib, COPD exacerbation Persistent shortness of breath, heart rate improved, still with foot pain Review of Systems Review of Systems: Yes all other systems are reviewed and are negative Constitutional Constitutional: Denies chills and Denies fever(s) Cardiovascular Cardiovascular: Denies chest pain, Denies palpitations and Reports dyspnea Respiratory Respiratory: Reports dyspnea Gastrointestinal Gastrointestinal: Denies abdominal pain, Denies nausea and Denies vomiting Endocrine Endocrine: Denies palpitations Physical Exam Vital Signs: Vital Signs: Last Vital Signs Temp 98.0 F 03/26/24 08:00 Pulse 63 03/26/24 08:41 Resp 19 03/26/24 08:41 BP 93/61 03/26/24 08:30 Pulse Ox 92 03/26/24 08:00 O2 Del Method CPAP 03/26/24 04:00 O2 Flow Rate 2 03/23/24 19:54 BMI result Body Mass Index 28.3 Appearing in no acute distress lung sounds are clear to auscultation heart regular rate rhythm, clear S1, S2 positive bowel sounds, abdomen is soft, nontender neuro patient is alert x3, no focal deficits Objective Data Active Medications Acetaminophen (Acetaminophen 325 Mg Tablet) 650 mg PO Q6H PRN PRN Reason: Pain, Mild (Pain Scale 1-3), fever or headache Last Admin: 03/24/24 08:23 Dose: 650 mg Documented By: YUNIOR Albuterol Sulfate (Albuterol Sulfate (0.083%) 2.5 Mg/3 Ml Vial.Neb) 2.5 mg INHALE RQ6H PRN PRN Reason: Shortness Of Breath Or Wheezing Amiodarone HCl (Amiodarone Hcl 200 Mg Tablet) 200 mg PO DAILY [facility] Last Admin: 03/26/24 08:30 Dose: 200 mg Documented By: ANYI Apixaban (Apixaban 5 Mg Tablet) 5 mg PO BID [facility] Last Admin: 03/24/24 08:19 Dose: 5 mg Documented By: YUNIOR Colchicine (Colchicine 0.6 Mg Tablet) 0.6 mg PO DAILY [facility] Last Admin: 03/26/24 08:30 Dose: 0.6 mg Documented By: ANYI Fluticasone/Vilanterol (Fluticasone/Vilanterol 100/25 Blst.W.Dev) 1 puff INHALE RDAILY [facility] Last Admin: 03/26/24 08:40 Dose: 1 puff Documented By: KEO Gabapentin (Gabapentin 300 Mg Capsule) 300 mg PO TID [facility] Last Admin: 03/26/24 08:30 Dose: 300 mg Documented By: ANYI Glucose (Glucose Gel 15 Gm Gel..Gram.) 15 gm PO Q15M PRN; Protocol PRN Reason: per Hypoglycemia Standing Ord. Dextrose (D10) 250 mls @ 750 mls/hr IV Q15M PRN; Protocol PRN Reason: per Hypoglycemia Standing Ord. Cefepime HCl 2 gm/ Sodium (Chloride) 50 mls @ 100 mls/hr IV Q12H [facility] Last Infusion: 03/26/24 01:04 Dose: Infused Documented By: ELANA Clindamycin Phosphate (Cleocin) 900 mg in 50 mls @ 50 mls/hr IV Q8H [facility] Last Infusion: 03/26/24 07:07 Dose: Infused Documented By: ELANA Vancomycin HCl 750 mg/ Sodium (Chloride) 265 mls @ 265 mls/hr IV Q24H [facility] Insulin Glargine (Insulin Glargine,Hum.Rec.Anlog 100 Unit/Ml 10 Ml Vial) 15 unit SUBCUT BEDTIME [facility] Last Admin: 03/25/24 21:00 Dose: 15 unit Documented By: ALIE Insulin Human Lispro (Insulin Lispro 100 Unit/Ml 3 Ml Vial) 0 unit SUBCUT QIDACHS [facility]; Protocol Last Admin: 03/26/24 08:30 Dose: 2 unit Documented By: ANYI Levalbuterol HCl (Levalbuterol Hcl 1.25 Mg/3 Ml Vial.Neb) 1.25 mg INHALE RQ4H PRN PRN Reason: Shortness of Breath/Wheezing Last Admin: 03/24/24 08:22 Dose: 1.25 mg Documented By: DAVID Levalbuterol HCl (Levalbuterol Hcl 1.25 Mg/3 Ml Vial.Neb) 1.25 mg INHALE RQ6H [facility] Last Admin: 03/26/24 06:10 Dose: 1.25 mg Documented By: VELMA Melatonin (Melatonin 3 Mg Tablet) 6 mg PO BEDTIME PRN PRN Reason: Insomnia Melatonin (Melatonin 3 Mg Tablet) 3 mg PO BEDTIME [facility] Last Admin: 03/25/24 20:59 Dose: 3 mg Documented By: ALIE Methylprednisolone Sodium Succinate (Methylprednisolone Sod Succ 40 Mg/Ml Vial) 40 mg IVPUSH Q12H [facility] Last Admin: 03/26/24 06:01 Dose: 40 mg Documented By: ELANA Metoprolol Succinate (Metoprolol Succinate Er 100 Mg Tab.Er.24h) 100 mg PO DAILY [facility]; Protocol Last Admin: 03/26/24 08:30 Dose: 100 mg Documented By: ANYI Morphine Sulfate (Morphine Sulfate 2 Mg/Ml Cartridge) 2 mg IVPUSH Q4H PRN; Protocol PRN Reason: Pain, Severe (Pain Scale 7-10) Last Admin: 03/26/24 06:08 Dose: 2 mg Documented By: ELANA Omeprazole (Omeprazole 20 Mg Capsule.Dr) 20 mg PO DAILY@0630 [facility] Last Admin: 03/26/24 06:01 Dose: 20 mg Documented By: ELANA Pharmacy Consult (Consult Rx Vancomycin Dosing) 1 each MISCELLANE DAILY PRN PRN Reason: Consult order Senna (Sennosides 8.6 Mg Tablet) 17.2 mg PO BEDTIME [facility] Last Admin: 03/25/24 20:59 Dose: 17.2 mg Documented By: ALIE Sertraline HCl (Sertraline Hcl 25 Mg Tablet) 25 mg PO DAILY [facility] Last Admin: 03/26/24 08:30 Dose: 25 mg Documented By: ANYI Sodium Chloride (0.9 % Sodium Chloride Flush 3 Ml Syringe) 3 ml IVFLUSH QSHIFT [facility] Last Admin: 03/26/24 08:32 Dose: 3 ml Documented By: ANYI Thiamine HCl (Thiamine Hcl 100 Mg Tablet) 100 mg PO DAILY [facility] Last Admin: 03/26/24 08:30 Dose: 100 mg Documented By: ANYI Torsemide (Torsemide 20 Mg Tablet) 20 mg PO Q48H [facility]; Protocol Last Admin: 03/26/24 08:30 Dose: 20 mg Documented By: ANYI Labs 03/26/24 06:27 03/26/24 06:27 Labs: Laboratory Results - last 24 hr 03/25/24 03/25/24 03/25/24 11:15 16:07 20:46 MCV MCH MCHC RDW Plt Count MPV Absolute Nucleated RBC Nucleated RBC % (auto) Hold Purple Top Anion Gap Estim Creat Clear Calc Estimated GFR POC Glucose 270 H 248 H 206 H Random Glucose Calcium Random Vancomycin 03/25/24 03/26/24 03/26/24 20:54 06:27 07:39 MCV 77.0 L MCH 22.5 L MCHC 29.2 L RDW 18.4 H Plt Count 512 H MPV 9.8 Absolute Nucleated RBC 0.260 H Nucleated RBC % (auto) 1.3 H Hold Purple Top SEE NOTE Anion Gap 18 Estim Creat Clear Calc 48.4 Estimated GFR 37 POC Glucose 166 H Random Glucose 163 H Calcium 8.6 D Random Vancomycin 22.7 H Microbiology Microbiology Results: Microbiology 03/23/24 12:31 Blood Culture - Preliminary Blood - Venous No growth after 48 hours. 03/23/24 12:28 Blood Culture - Preliminary Blood - Venous No growth after 48 hours. Assessment and Plan (1) Foot ulcer, left: Status: Acute (2) Hyperkalemia: Status: Acute (3) Cellulitis: Status: Acute Plan This is a 58-year-old male with a history of atrial fibrillation on Eliquis, ischemic cardiomyopathy status post AICD, coronary artery disease status post PCI, COPD, KIMANI on CPAP among others who presents to the emergency department with shortness of breath and redness of his foot found to have COPD exacerbation, diabetic foot ulcer, atrial fibrillation with rapid ventricular response, hyperglycemia Left diabetic foot wound CT showing soft tissue swelling, synovitis, ? Phlegmon versus early abscess as well as findings concerning for necrotizing fasciitis-> seen by general surgery, no plan for surgery at this time, but will follow closely and if worsens may need BKA. continue IV vancomycin, cefepime (03/23) and clindamycin added hold Eliquis Arterial doppler showing delayed arterial upstroke suggesting inflow disease>vascular surgery consultation pending Acute respiratory failure with hypoxia due to exacerbation of COPD Continue IV Solu-Medrol Scheduled and p.r.n. breathing treatments Wean supplemental oxygen as needed Acute hyperkalemia No EKG changes Lokelma today sepsis due to COPD vs diabetic foot infection> sepsis resolved meets sepsis criteria with leukocytosis, tachycardia, tachypnea- all resolved Blood cultures neg Atrial fibrillation with rapid ventricular response> resolved converted to sinus Continue metoprolol, amiodarone Hold Eliquis for possible surgical intervention seen by Cardiology HFrEF ECHO 03/16 with improvement of EF to 30% no acute exacerbation continue torsemide IDDM with hyperglycemia BS elevated on arrival, received insulin in ED SSI, POCs Lantus, titrate prn hold jardiance History of pericardial effusion Appears slightly reduced in size on recent echocardiogram KIMANI CPAP at bedtime mood disorder continue baseline medications dvt ppx - eliquis on hold; mechanical devices Attending Dr. Dave code status -DNR/DNI Will need ongoing inpatient hospitalization for multiple acute medical issues requiring IV steroids, IV antibiotics, specialist evaluation and likely surgical intervention Quality Stroke Does the patient have a stroke diagnosis?: No VTE Prior VTE?: No VTE Risk Level:: Medical - moderate - high VTE Device Contraindication: N/A - Device Ordered VTE Drug Contraindication: N/A - Med Ordered
--- NOTE | 2024-03-26 10:01 | P.PNCA_ITS ---
Subjective Subjective Date of Service: 03/26/24 Interval history: He still feels short of breath. Review of Systems Review of Systems Yes all other systems are reviewed and are negative Constitutional: Reports as per HPI and Reports no additional constitutional complaints Eyes: Reports as per HPI and Denies no additional eye complaints Denies system reviewed and no additional complaints, except as documented and Reports as per HPI Cardiovascular: Reports as per HPI, Reports no additional cardiovascular complaints, Denies acrocyanosis, Denies cool extremities, Denies chest pain, Denies leg edema, Denies lightheadedness, Denies palpitations and Denies dyspnea Respiratory: Reports as per HPI, Denies no additional respiratory complaints and Denies dyspnea Gastrointestinal: Reports as per HPI and Denies no additional gastrointestinal complaints Genitourinary: Reports no additional male genitourinary complaints and Reports as per HPI Musculoskeletal: Reports no additional musculoskeletal complaints and Reports as per HPI Skin/Breast: Reports system reviewed and no additional complaints, except as docu Reports system reviewed and no additional complaints, except as documented and Reports as per HPI Psychiatric: Reports no additional psychiatric complaints and Reports as per HPI Endocrine: Reports no additional endocrine complaints, Reports as per HPI and Denies palpitations Hematologic/Lymphatic: Reports no additional hematologic/lymphatic complaints and Reports as per HPI Allergic/Immunologic: Reports no additional allergic/immunologic complaints and Reports as per HPI Physical Exam Vital Signs: Last Vital Signs Temp 98.0 F 03/26/24 08:00 Pulse 63 03/26/24 08:41 Resp 19 03/26/24 08:41 BP 93/61 03/26/24 08:30 Pulse Ox 92 03/26/24 08:00 O2 Del Method CPAP 03/26/24 04:00 O2 Flow Rate 2 03/23/24 19:54 BMI result Body Mass Index 28.3 Const General: comfortable and no acute distress Orientation/consciousness: patient oriented x3 HEENT Other: Unremarkable Head: Yes normal to inspection Neck Neck: Yes normal visual inspection Chest Chest palpation & inspection: normal inspection of the chest Resp Auscultation: crackles and diminished lung sounds Cardio Palpation: normal PMI Heart sounds: S1 normal heart sound present, S2 normal heart sound present, no gallops, no murmurs and no rubs GI Palpation (GI): Soft to palpation Back/Spine/Pelvis Other: unremarkable Skin General skin exam: no rashes or lesions noted Neuro General: patient oriented x3 Extrem General: Yes normal to inspection Psych Mental Status: mental status grossly normal Objective Labs and Meds 03/26/24 06:27 03/26/24 06:27 Lab results: Laboratory Results - last 24 hr 03/25/24 03/25/24 03/25/24 11:15 16:07 20:46 WBC RBC Hgb Hct MCV MCH MCHC RDW Plt Count MPV Absolute Nucleated RBC Nucleated RBC % (auto) Hold Purple Top Sodium Potassium Chloride Carbon Dioxide Anion Gap BUN Creatinine Estim Creat Clear Calc Estimated GFR POC Glucose 270 H 248 H 206 H Random Glucose Calcium Random Vancomycin 03/25/24 03/26/24 03/26/24 20:54 06:27 07:39 WBC 19.7 H RBC 5.12 Hgb 11.5 L Hct 39.4 L MCV 77.0 L MCH 22.5 L MCHC 29.2 L RDW 18.4 H Plt Count 512 H MPV 9.8 Absolute Nucleated RBC 0.260 H Nucleated RBC % (auto) 1.3 H Hold Purple Top SEE NOTE Sodium 132 L Potassium 5.5 H Chloride 98 Carbon Dioxide 22 Anion Gap 18 BUN 74 H Creatinine 1.88 H Estim Creat Clear Calc 48.4 Estimated GFR 37 POC Glucose 166 H Random Glucose 163 H Calcium 8.6 D Random Vancomycin 22.7 H Imaging Radiologist's impression: Impressions Duplex Scan Lower Extremity Artery 03/25/24 10:00 IMPRESSION: There are delayed arterial upstroke suggesting inflow disease. There is monophasic flow in the posterior tibial artery. Electronically signed by: Cesar Llamas MD 03/25/2024 11:48 AM EDT Progress Note: A&P Assessment and plan (1) Atrial fibrillation with RVR: Status: Resolved (2) Cardiomyopathy: Status: Resolved (3) Acute respiratory failure with hypoxia: Status: Resolved (4) Hyperkalemia: Status: Acute Plan High sensitivity troponins within range. Still has elevated K. Last echocardiogram with LVEF of 30-35%. Restrictive filling. [id number] pericardial effusion. Overall, admitted for pulmonary issues as well as foot infection. In this setting, has hyperkalemia. There was initial concern for atrial fibrillation with rapid rate but on telemetry no further evidence of the same. Per last ICD check from 2 weeks ago, recurrent episodes of atrial fibrillation noted but overall burden was only 3.4%. Overall, recommend that he just continues usual dose of amiodarone and beta- blockers. Anticoagulation. Treat medical issues. Treat hyperkalemia. Doubt any acute heart failure and clinically does not appear to be overtly volume overloaded. May try holding diuretics as renal function going up. Discussed with hospitalist. Time Spent With Patient Time: Total time managing care of this patient today ____ minutes. Progress Note: Quality Stroke Does the patient have a stroke diagnosis?: No Procedures Date of Service Date of Service: 03/26/24
[2024-03-26] MEDS: Sodium Zirconium Cyclosilicate 10 GM POWD.PACK PO (10:26)
[2024-03-26] MEDS: Enoxaparin Sodium 100 MG/ML SYRINGE 90 MG SUBCUT ×2 (10:26→21:59)
[2024-03-26 11:17] LABS: INTERNATIONAL NORM RATIO 2.1 (0.9-1.1); Prothrombin Time 24.1 SEC (10.9-12.4)
[2024-03-26 11:23] LABS: Glucose, Whole Blood 221 mg/dL (60-115)
[2024-03-26] MEDS: guaiFENesin LA 600 MG TAB.ER.12H PO ×2 (14:02→21:59)
[2024-03-26 16:09] LABS: Glucose, Whole Blood 210 mg/dL (60-115)
[2024-03-26 20:40] LABS: Glucose, Whole Blood 245 mg/dL (60-115)
[2024-03-26 21:36] LABS: Vancomycin Random 16.4 mcg/mL (15-20)
[2024-03-26] MEDS: Sennosides 8.6 MG TABLET 17.2 MG PO (21:59)
[2024-03-26] MEDS: Melatonin 3 MG TABLET PO (21:59)
[2024-03-26] MEDS: Insulin Glargine,Hum.rec.anlog 100 UNIT/ML 10 ML VIAL 15 UNIT SUBCUT (22:01)
[2024-03-26] MEDS: Lactated Ringers 500 ML IV ×2 (22:40→23:43)
[2024-03-26 22:59] LABS: Lactic Acid 1.8 mmol/L (0.5-2.0)
[2024-03-26] MEDS: vancomycin HCL 750 MG in 0.9 % Sodium Chloride 250 ML 265 MG IV (23:06)
[2024-03-27] VITALS (15 sets, daily range): BP systolic 91–123; BP diastolic 54–68; PULSE 56–63; RESP 14–20; TEMP 36–36.7; O2SAT 93–98
[2024-03-27] MEDS: levalbuterol HCL 1.25 MG/3 ML VIAL.NEB INHALE ×4 (00:25→22:54)
[2024-03-27] MEDS: cefEPime HCl 2 GM in 0.9 % Sodium Chloride 50 ML IV ×2 (01:25→11:42)
[2024-03-27] MEDS: methylPREDNISolone Sod Succ 40 MG/ML VIAL IVPUSH (04:10)
[2024-03-27] MEDS: Morphine Sulfate 2 MG/ML CARTRIDGE IVPUSH ×2 (04:16→20:47)
[2024-03-27] MEDS: Clindamycin Phosphate/D5W 900 MG/50 ML PIGGYBACK 50 MG IV ×3 (05:15→20:51)
[2024-03-27] MEDS: Omeprazole 20 MG CAPSULE.DR PO (05:17)
[2024-03-27 05:46] LABS: Glucose, Whole Blood 190 mg/dL (60-115)
[2024-03-27 07:04] LABS: Glucose, Whole Blood 178 mg/dL (60-115)
[2024-03-27 07:04] LABS: Creatinine Clr Calc Pharmacy 36.3; Estimated Glomerular Filt Rate 26
[2024-03-27] MEDS: Acetaminophen 325 MG TABLET 650 MG PO (08:25)
[2024-03-27] MEDS: Colchicine 0.6 MG TABLET PO (08:25)
[2024-03-27] MEDS: guaiFENesin LA 600 MG TAB.ER.12H PO ×2 (08:26→20:53)
[2024-03-27] MEDS: Amiodarone HCL 200 MG TABLET PO (08:26)
[2024-03-27] MEDS: Thiamine HCL 100 MG TABLET PO (08:26)
[2024-03-27] MEDS: Sertraline HCL 25 MG TABLET PO (08:26)
[2024-03-27] MEDS: predniSONE 20 MG TABLET 40 MG PO (08:26)
[2024-03-27] MEDS: 0.9 % Sodium Chloride 1,000 ML 100 ML IVCONT (08:26)
[2024-03-27] MEDS: Insulin Lispro 100 UNIT/ML 3 ML VIAL SUBCUT ×4 (08:28→20:52)
[2024-03-27] MEDS: Fluticasone/Vilanterol 100/25 BLST.W.DEV 1 PUFF INHALE (09:24)
--- NOTE | 2024-03-27 10:25 | MHC.CM.PN ---
Per ROUNDS discussion, Patient is not yet medically cleared for dc (needs Nephrology Consult); home/resume services is the goal and CM will continue to follow.
--- NOTE | 2024-03-27 10:44 | P.CONNP_ITS ---
History of Present Illness Reason for Consult Consult date: 03/27/24 Chief Complaint Chief complaint: foot infection,COPD,Afib History of Present Illness Narrative: This is a 58-year-old male with a history of atrial fibrillation on Eliquis, ischemic cardiomyopathy status post AICD, coronary artery disease status post PCI, COPD, KIMANI on CPAP, HFrEF (30%) here for treatment of COPD exacerbation and of sepsis 2/2 diabetic foot infection, as well as afib with RVR. pt receiving IV abx for management of infection acute hyperkalemia managed with lokelma pt developed DECLAN on admission Cr 0.96, has been trending up, today up to 2.51 from 1.88 day prior (concurrent rise in BUN, now 74) mild hyponatremia 132 yesterday K 5.5 yesterday CO2 trending down pt is getting SN at 100ml/hr of note also receiving colchicine 0.6mg daily and torsemide 20mg PO every 48 hours pt also receiving vancomycin pt has been hypotensive, SBPs in 80s- low 100s since admission (normally runs a 110s-130s outpatient) elevated platelets chronically since October 2022 at bedside today pt states he is feeling well, sitting up and eating breakfast denies shortness of breath no pedal/ankle edema reports he is urinating comfortably every few hours using urinal, denies flank pain Review of Systems Constitutional: Denies anorexia, Denies fever(s) and Denies weakness Cardiovascular: Denies no additional cardiovascular complaints, Denies chest pain and Denies dyspnea Respiratory: Reports no additional respiratory complaints and Denies dyspnea Gastrointestinal: Denies abdominal pain and Denies diarrhea Genitourinary: Denies hematuria, Denies oliguria, Denies dysuria, Denies flank pain and Denies urinary frequency Musculoskeletal: Denies tingling Skin/Breast: Denies rash Denies focal weakness, Denies tingling, Denies tremor(s) and Denies weakness PMFSH Past Medical History Medical History Acute on chronic HFrEF (heart failure with reduced ejection fraction) History of osteomyelitis 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 Diverticulosis Tubular adenoma of colon (~2017) History of COVID-19 Nicotine dependence, cigarettes, uncomplicated Hypertensive retinopathy Microhematuria ICD (implantable cardioverter-defibrillator) in place COPD (chronic obstructive pulmonary disease) KIMANI (obstructive sleep apnea) Sleep apnea CAD (coronary artery disease) Paroxysmal atrial fibrillation (~2017) Family History Family History Father Atherosclerosis Mother Cerebral aneurysm Maternal Grandmother Unknown family medical history Mother Cerebral hemorrhage Father Coronary artery disease Surgical History Surgical History History of amputation of left great toe History of cardiac cath History of ankle surgery History of implantable cardiac defibrillator (ICD) History of colonoscopy History of heart artery stent History of cardiac radiofrequency ablation History of cardioversion History of esophagogastroduodenoscopy History of umbilical hernia History of inguinal hernia Social History Social History Household Members: None Housing: House Are you a primary wound care coordinator to a significant other at home: No Do you presently have visiting nurse or other home services: Yes Alcohol intake: former Patient Tobacco Use Status: Current everyday Tobacco user Tobacco use type: Cigarette Cigarette Packs Per Day: 1 Years Smoked: (current smoker - onset 14yo, 1ppd x 43yrs, 40pyh) Smoked in Last 30 Days: Yes e-Cigarette/Vaping Use: Never Used Second Hand Smoke Exposure: Yes Use of substances other than those prescribed or required for medical reasons: No Currently Displaying Signs/Symptoms of Drug Intoxication Withdrawal: No Any prior treatment program specific to substance use: No Have you been hit, kicked, punched, or otherwise hurt by someone within the past year? If so, by whom?: No Do you feel safe in your current relationship?: Yes Is there a partner from a previous relationship who is making you feel unsafe now?: No Are you made to feel afraid or neglected: No Advance Directives: Yes Advance Directives on File: Yes Advance Directives Date on File: 07/09/21 Do you have a plan to hurt others: No Plan service: No Current occupational status: unemployed and disabled Current occupation: rt handed Cognitive needs: No Hearing needs: No Vision needs: Yes Meds Allergies Allergy/AdvReac Type Severity Reaction Status Date / Time No Known Allergies Allergy Verified 03/23/24 11:55 [No Known Allergies*] Active Medications: Current Medications Acetaminophen (Acetaminophen 325 Mg Tablet) 650 mg PO Q6H PRN PRN Reason: Pain, Mild (Pain Scale 1-3), fever or headache Last Admin: 03/27/24 08:25 Dose: 650 mg Albuterol Sulfate (Albuterol Sulfate (0.083%) 2.5 Mg/3 Ml Vial.Neb) 2.5 mg INHALE RQ6H PRN PRN Reason: Shortness Of Breath Or Wheezing Amiodarone HCl (Amiodarone Hcl 200 Mg Tablet) 200 mg PO DAILY [facility] Last Admin: 03/27/24 08:26 Dose: 200 mg Apixaban (Apixaban 5 Mg Tablet) 5 mg PO BID [facility] Last Admin: 03/24/24 08:19 Dose: 5 mg Colchicine (Colchicine 0.6 Mg Tablet) 0.6 mg PO DAILY [facility] Last Admin: 03/27/24 08:25 Dose: 0.6 mg Enoxaparin Sodium (Enoxaparin Sodium 100 Mg/Ml Syringe) 90 mg SUBCUT Q12H [facility] Last Admin: 03/26/24 21:59 Dose: 90 mg Fluticasone/Vilanterol (Fluticasone/Vilanterol 100/25 Blst.W.Dev) 1 puff INHALE RDAILY [facility] Last Admin: 03/27/24 09:24 Dose: 1 puff Gabapentin (Gabapentin 300 Mg Capsule) 300 mg PO TID [facility] Last Admin: 03/26/24 21:59 Dose: 300 mg Glucose (Glucose Gel 15 Gm Gel..Gram.) 15 gm PO Q15M PRN; Protocol PRN Reason: per Hypoglycemia Standing Ord. Guaifenesin (Guaifenesin La 600 Mg Tab.Er.12h) 600 mg PO BID [facility] Last Admin: 03/27/24 08:26 Dose: 600 mg Dextrose (D10) 250 mls @ 750 mls/hr IV Q15M PRN; Protocol PRN Reason: per Hypoglycemia Standing Ord. Cefepime HCl 2 gm/ Sodium (Chloride) 50 mls @ 100 mls/hr IV Q12H [facility] Last Infusion: 03/27/24 02:04 Dose: Infused Clindamycin Phosphate (Cleocin) 900 mg in 50 mls @ 50 mls/hr IV Q8H [facility] Last Infusion: 03/27/24 06:28 Dose: Infused Vancomycin HCl 750 mg/ Sodium (Chloride) 265 mls @ 265 mls/hr IV Q24H [facility] Last Infusion: 03/27/24 00:06 Dose: Infused Sodium Chloride (Ns) 1,000 mls @ 100 mls/hr IVCONT .Q10H [facility] Last Admin: 03/27/24 08:26 Dose: 100 mls/hr Insulin Glargine (Insulin Glargine,Hum.Rec.Anlog 100 Unit/Ml 10 Ml Vial) 15 unit SUBCUT BEDTIME [facility] Last Admin: 03/26/24 22:01 Dose: 15 unit Insulin Human Lispro (Insulin Lispro 100 Unit/Ml 3 Ml Vial) 0 unit SUBCUT QIDACHS [facility]; Protocol Last Admin: 03/27/24 08:28 Dose: 2 unit Levalbuterol HCl (Levalbuterol Hcl 1.25 Mg/3 Ml Vial.Neb) 1.25 mg INHALE RQ4H PRN PRN Reason: Shortness of Breath/Wheezing Last Admin: 03/24/24 08:22 Dose: 1.25 mg Levalbuterol HCl (Levalbuterol Hcl 1.25 Mg/3 Ml Vial.Neb) 1.25 mg INHALE RQ6H [facility] Last Admin: 03/27/24 05:35 Dose: 1.25 mg Melatonin (Melatonin 3 Mg Tablet) 6 mg PO BEDTIME PRN PRN Reason: Insomnia Melatonin (Melatonin 3 Mg Tablet) 3 mg PO BEDTIME [facility] Last Admin: 03/26/24 21:59 Dose: 3 mg Metoprolol Succinate (Metoprolol Succinate Er 100 Mg Tab.Er.24h) 100 mg PO DAILY [facility]; Protocol Last Admin: 03/27/24 08:38 Dose: Not Given Morphine Sulfate (Morphine Sulfate 2 Mg/Ml Cartridge) 2 mg IVPUSH Q4H PRN; Protocol PRN Reason: Pain, Severe (Pain Scale 7-10) Last Admin: 03/27/24 04:16 Dose: 2 mg Omeprazole (Omeprazole 20 Mg Capsule.) 20 mg PO DAILY@0630 [facility] Last Admin: 03/27/24 05:17 Dose: 20 mg Pharmacy Consult (Consult Rx Vancomycin Dosing) 1 each MISCELLANE DAILY PRN PRN Reason: Consult order Prednisone (Prednisone 20 Mg Tablet) 40 mg PO DAILY [facility] Last Admin: 03/27/24 08:26 Dose: 40 mg Senna (Sennosides 8.6 Mg Tablet) 17.2 mg PO BEDTIME [facility] Last Admin: 03/26/24 21:59 Dose: 17.2 mg Sertraline HCl (Sertraline Hcl 25 Mg Tablet) 25 mg PO DAILY [facility] Last Admin: 03/27/24 08:26 Dose: 25 mg Sodium Chloride (0.9 % Sodium Chloride Flush 3 Ml Syringe) 3 ml IVFLUSH QSHIFT [facility] Last Admin: 03/27/24 08:38 Dose: Not Given Thiamine HCl (Thiamine Hcl 100 Mg Tablet) 100 mg PO DAILY [facility] Last Admin: 03/27/24 08:26 Dose: 100 mg Torsemide (Torsemide 20 Mg Tablet) 20 mg PO Q48H [facility]; Protocol Last Admin: 03/26/24 08:30 Dose: 20 mg Home Medications ?Medication ?Instructions ?Recorded ?Confirmed ?Last Taken ?Type acetaminophen 325 mg tablet 650 mg PO Q6H PRN Pain, Moderate 11/18/23 03/23/24 Unknown History colchicine 0.6 mg tablet 0.6 mg PO DAILY 11/18/23 03/23/24 11/16/23 History insulin glargine 100 unit/mL (3 17 unit subcut BEDTIME 11/18/23 03/23/24 03/22/24 History mL) subcutaneous pen (Lantus Solostar U-100 Insulin) insulin lispro 100 unit/mL 7 unit subcut TIDAC 11/18/23 03/23/24 03/22/24 History subcutaneous solution metoprolol succinate 100 mg 100 mg PO DAILY 12/20/23 03/23/24 03/22/24 History tablet,extended release 24 hr torsemide 20 mg tablet 20 mg PO Q48H 12/20/23 03/23/24 Unknown History albuterol sulfate 2.5 mg/3 mL 2.5 mg inhalation Q6H PRN 03/23/24 03/23/24 Unknown History (0.083 %) solution for nebulization Shortness Of Breath Or Wheezing apixaban 5 mg tablet (Eliquis) 5 mg PO BID 03/23/24 03/23/24 Unknown History empagliflozin 10 mg tablet 10 mg PO DAILY 03/23/24 03/23/24 03/22/24 History (Jardiance) fluticasone propionate 45 2 puff inhalation BID 03/23/24 03/23/24 Unknown History mcg-salmeterol 21 mcg/actuation HFA inhaler (Advair HFA) sennosides 8.6 mg tablet (senna) 17.2 mg PO BEDTIME 03/23/24 03/23/24 Unknown History Physical Exam Vital Signs: Last Vital Signs Temp 96.9 F 03/27/24 07:09 Pulse 60 03/27/24 09:26 Resp 20 03/27/24 09:26 BP 93/64 03/27/24 08:38 Pulse Ox 96 03/27/24 07:09 O2 Del Method CPAP 03/27/24 07:09 O2 Flow Rate 2 03/23/24 19:54 BMI result Body Mass Index 28.3 Const General: comfortable and no acute distress Orientation/consciousness: oriented to person, oriented to place and oriented to time Neck Neck: Yes no JVD Resp Effort & Inspection: able to speak in complete sentences Auscultation: clear to auscultation bilaterally Cardio Jugular venous distension: no JVD Rate: regular rate Rhythm: regular rhythm Heart sounds: S1 normal heart sound present, S2 normal heart sound present and Murmur heart sound present GI Palpation (GI): Soft to palpation Rectal Exam - Male: No tenderness General: Yes no CVA tenderness Back/Spine/Pelvis Back: no CVA tenderness Skin Rashes: no rashes Neuro General: oriented to person, oriented to place and oriented to time Extrem General: Yes normal to inspection, No edema and No pedal edema Results Lab Results 03/26/24 06:27 03/27/24 06:16 Lab results: Chemistry 03/24/24 03/25/24 03/26/24 12:20 07:11 06:27 Sodium 134 L 132 L Potassium 5.0 5.6 H 5.5 H Carbon Dioxide 25 22 BUN 48 H 74 H Creatinine 1.34 1.88 H Calcium 9.2 8.6 D 03/27/24 06:16 Sodium Potassium Carbon Dioxide BUN Creatinine 2.51 H Calcium Hematology 03/25/24 03/26/24 07:11 06:27 WBC 21.2 H 19.7 H Hgb 11.1 L 11.5 L Plt Count 562 H 512 H Assessment and Plan (1) 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: Status: Acute (2) Hyperkalemia: Status: Acute (3) DECLAN (acute kidney injury): Status: Acute (4) Anemia: Status: Acute (5) Thrombocytosis: Status: Acute Plan 58 y/o male who has developed DECLAN likely secondary to tubular injury due to vancomycin and or hypotension; may also have pre-renal injury related to hypoperfusion with low blood pressures since admission rule out obstruction as well with renal US would recommend holding torsemide given low blood pressures recommend following vancomycin levels and adjusting dose accordingly (lower dose or increase duration) would recommend continuing lokelma PRN for elevated potassium management No indication for dialysis at this time Discussed with Dr Olson. Procedures Date of Service Date of Service: 03/27/24
[2024-03-27 10:57] LABS: Glucose, Whole Blood 233 mg/dL (60-115)
--- NOTE | 2024-03-27 10:57 | PC.NURSE ---
Patient continuing to have low BP, most recent being 92/54 manually. Patient complaining of 9/10 pain to the L foot and requesting morphine. SHIPYARD PAINTER HELPER notified and per SHIPYARD PAINTER HELPER continue to hold morphine until rise in BP. Patient offered Tylenol again but refused.
--- NOTE | 2024-03-27 11:02 | HO.PM.IMPN ---
Subjective Subjective Date of Service: 03/27/24 Interval History: Seen and examined this morning Follow-up for diabetic foot wound, AFib, COPD exacerbation Persistent shortness of breath, heart rate improved, still with foot pain Review of Systems Review of Systems: Yes all other systems are reviewed and are negative Constitutional Constitutional: Denies chills and Denies fever(s) Cardiovascular Cardiovascular: Denies chest pain, Denies palpitations and Reports dyspnea Respiratory Respiratory: Reports dyspnea Gastrointestinal Gastrointestinal: Denies abdominal pain, Denies nausea and Denies vomiting Endocrine Endocrine: Denies palpitations Physical Exam Vital Signs: Vital Signs: Last Vital Signs Temp 97.1 F 03/27/24 10:59 Pulse 63 03/27/24 10:59 Resp 18 03/27/24 10:59 BP 92/54 L 03/27/24 10:59 Pulse Ox 96 03/27/24 10:59 O2 Del Method Room Air 03/27/24 10:59 O2 Flow Rate 2 03/23/24 19:54 BMI result Body Mass Index 28.3 Appearing in no acute distress lung sounds are clear to auscultation heart regular rate rhythm, clear S1, S2 positive bowel sounds, abdomen is soft, nontender neuro patient is alert x3, no focal deficits Foot wounds Objective Data Active Medications Acetaminophen (Acetaminophen 325 Mg Tablet) 650 mg PO Q6H PRN PRN Reason: Pain, Mild (Pain Scale 1-3), fever or headache Last Admin: 03/27/24 08:25 Dose: 650 mg Documented By: GABE Albuterol Sulfate (Albuterol Sulfate (0.083%) 2.5 Mg/3 Ml Vial.Neb) 2.5 mg INHALE RQ6H PRN PRN Reason: Shortness Of Breath Or Wheezing Amiodarone HCl (Amiodarone Hcl 200 Mg Tablet) 200 mg PO DAILY [facility] Last Admin: 03/27/24 08:26 Dose: 200 mg Documented By: GABE Apixaban (Apixaban 5 Mg Tablet) 5 mg PO BID [facility] Last Admin: 03/24/24 08:19 Dose: 5 mg Documented By: YUNIOR Colchicine (Colchicine 0.6 Mg Tablet) 0.6 mg PO DAILY [facility] Last Admin: 03/27/24 08:25 Dose: 0.6 mg Documented By: GABE Enoxaparin Sodium (Enoxaparin Sodium 100 Mg/Ml Syringe) 90 mg SUBCUT Q12H [facility] Last Admin: 03/26/24 21:59 Dose: 90 mg Documented By: ALIE Fluticasone/Vilanterol (Fluticasone/Vilanterol 100/25 Blst.W.Dev) 1 puff INHALE RDAILY [facility] Last Admin: 03/27/24 09:24 Dose: 1 puff Documented By: JUNIOR Gabapentin (Gabapentin 300 Mg Capsule) 300 mg PO TID [facility] Last Admin: 03/26/24 21:59 Dose: 300 mg Documented By: ALIE Glucose (Glucose Gel 15 Gm Gel..Gram.) 15 gm PO Q15M PRN; Protocol PRN Reason: per Hypoglycemia Standing Ord. Guaifenesin (Guaifenesin La 600 Mg Tab.Er.12h) 600 mg PO BID [facility] Last Admin: 03/27/24 08:26 Dose: 600 mg Documented By: GABE Dextrose (D10) 250 mls @ 750 mls/hr IV Q15M PRN; Protocol PRN Reason: per Hypoglycemia Standing Ord. Cefepime HCl 2 gm/ Sodium (Chloride) 50 mls @ 100 mls/hr IV Q12H [facility] Last Infusion: 03/27/24 02:04 Dose: Infused Documented By: ALIE Clindamycin Phosphate (Cleocin) 900 mg in 50 mls @ 50 mls/hr IV Q8H [facility] Last Infusion: 03/27/24 06:28 Dose: Infused Documented By: ALIE Vancomycin HCl 750 mg/ Sodium (Chloride) 265 mls @ 265 mls/hr IV Q24H [facility] Last Infusion: 03/27/24 00:06 Dose: Infused Documented By: ALIE Sodium Chloride (Ns) 1,000 mls @ 100 mls/hr IVCONT .Q10H [facility] Last Admin: 03/27/24 08:26 Dose: 100 mls/hr Documented By: GABE Insulin Glargine (Insulin Glargine,Hum.Rec.Anlog 100 Unit/Ml 10 Ml Vial) 15 unit SUBCUT BEDTIME [facility] Last Admin: 03/26/24 22:01 Dose: 15 unit Documented By: ALIE Insulin Human Lispro (Insulin Lispro 100 Unit/Ml 3 Ml Vial) 0 unit SUBCUT QIDACHS [facility]; Protocol Last Admin: 03/27/24 08:28 Dose: 2 unit Documented By: GABE Levalbuterol HCl (Levalbuterol Hcl 1.25 Mg/3 Ml Vial.Neb) 1.25 mg INHALE RQ4H PRN PRN Reason: Shortness of Breath/Wheezing Last Admin: 03/24/24 08:22 Dose: 1.25 mg Documented By: DAVID Levalbuterol HCl (Levalbuterol Hcl 1.25 Mg/3 Ml Vial.Neb) 1.25 mg INHALE RQ6H [facility] Last Admin: 03/27/24 05:35 Dose: 1.25 mg Documented By: SAWYER Melatonin (Melatonin 3 Mg Tablet) 6 mg PO BEDTIME PRN PRN Reason: Insomnia Melatonin (Melatonin 3 Mg Tablet) 3 mg PO BEDTIME [facility] Last Admin: 03/26/24 21:59 Dose: 3 mg Documented By: ALIE Metoprolol Succinate (Metoprolol Succinate Er 100 Mg Tab.Er.24h) 100 mg PO DAILY [facility]; Protocol Last Admin: 03/27/24 08:38 Dose: Not Given Documented By: GABE Non-Admin Reason: Decreased Blood Pressure Morphine Sulfate (Morphine Sulfate 2 Mg/Ml Cartridge) 2 mg IVPUSH Q4H PRN; Protocol PRN Reason: Pain, Severe (Pain Scale 7-10) Last Admin: 03/27/24 04:16 Dose: 2 mg Documented By: ALIE Omeprazole (Omeprazole 20 Mg Capsule.) 20 mg PO DAILY@0630 [facility] Last Admin: 03/27/24 05:17 Dose: 20 mg Documented By: ALIE Pharmacy Consult (Consult Rx Vancomycin Dosing) 1 each MISCELLANE DAILY PRN PRN Reason: Consult order Prednisone (Prednisone 20 Mg Tablet) 40 mg PO DAILY [facility] Last Admin: 03/27/24 08:26 Dose: 40 mg Documented By: GABE Senna (Sennosides 8.6 Mg Tablet) 17.2 mg PO BEDTIME [facility] Last Admin: 03/26/24 21:59 Dose: 17.2 mg Documented By: ALIE Sertraline HCl (Sertraline Hcl 25 Mg Tablet) 25 mg PO DAILY [facility] Last Admin: 03/27/24 08:26 Dose: 25 mg Documented By: GABE Sodium Chloride (0.9 % Sodium Chloride Flush 3 Ml Syringe) 3 ml IVFLUSH QSHIFT [facility] Last Admin: 03/27/24 08:38 Dose: Not Given Documented By: GABE Non-Admin Reason: IV Running Thiamine HCl (Thiamine Hcl 100 Mg Tablet) 100 mg PO DAILY [facility] Last Admin: 03/27/24 08:26 Dose: 100 mg Documented By: GABE Torsemide (Torsemide 20 Mg Tablet) 20 mg PO Q48H [facility]; Protocol Last Admin: 03/26/24 08:30 Dose: 20 mg Documented By: ANYI Labs 03/26/24 06:27 03/27/24 06:16 Labs: Laboratory Results - last 24 hr 03/26/24 03/26/24 03/26/24 10:45 11:11 16:04 PT 24.1 H INR 2.1 H Estim Creat Clear Calc Estimated GFR POC Glucose 221 H 210 H Lactic Acid Random Vancomycin 03/26/24 03/26/24 03/26/24 20:36 20:58 22:41 PT INR Estim Creat Clear Calc Estimated GFR POC Glucose 245 H Lactic Acid 1.8 Random Vancomycin 16.4 03/27/24 03/27/24 03/27/24 05:36 06:16 06:55 PT INR Estim Creat Clear Calc 36.3 Estimated GFR 26 POC Glucose 190 H 178 H Lactic Acid Random Vancomycin 03/27/24 10:51 PT INR Estim Creat Clear Calc Estimated GFR POC Glucose 233 H Lactic Acid Random Vancomycin Assessment and Plan (1) Foot ulcer, left: Status: Acute (2) Hyperkalemia: Status: Acute (3) Cellulitis: Status: Acute Plan This is a 58-year-old male with a history of atrial fibrillation on Eliquis, ischemic cardiomyopathy status post AICD, coronary artery disease status post PCI, COPD, KIMANI on CPAP among others who presents to the emergency department with shortness of breath and redness of his foot found to have COPD exacerbation, diabetic foot ulcer, atrial fibrillation with rapid ventricular response, hyperglycemia DECLAN Multifactorial secondary to medication, hypoperfusion from hypotension Marin increase in creatinine noted overnight, vancomycin level elevated on 03/25/2024, normalized 03/26/2024 Seen by Nephrology> hold colchicine, torsemide, change IV fluids to 50 mL an hour Left diabetic foot wound CT showing soft tissue swelling, synovitis, ? Phlegmon versus early abscess as well as findings concerning for necrotizing fasciitis-> seen by general surgery, no plan for surgery at this time, but will follow closely and if worsens may need BKA. continue IV vancomycin, cefepime (03/23) and clindamycin added Arterial doppler showing delayed arterial upstroke suggesting inflow disease>vascular surgery consultation pending>no vascular intervention required at this time Resume eliquis Acute respiratory failure with hypoxia due to exacerbation of COPD. Resolved s/p IV Solu-Medrol, now on prednisone 40mg Scheduled and p.r.n. breathing treatments Wean supplemental oxygen as needed Acute hyperkalemia No EKG changes Lokelma sepsis due to COPD vs diabetic foot infection> sepsis resolved meets sepsis criteria with leukocytosis, tachycardia, tachypnea- all resolved Blood cultures neg Atrial fibrillation with rapid ventricular response> resolved converted to sinus Continue metoprolol, amiodarone Hold Eliquis for possible surgical intervention seen by Cardiology HFrEF ECHO 03/16 with improvement of EF to 30% no acute exacerbation stop torsemide due to DECLAN IDDM with hyperglycemia ss, ada diet History of pericardial effusion Appears slightly reduced in size on recent echocardiogram KIMANI CPAP at bedtime mood disorder continue baseline medications dvt ppx - mikiequis Attending Dr. Dave code status -DNR/DNI Will need ongoing inpatient hospitalization for multiple acute medical issues requiring IV steroids, IV antibiotics, specialist evaluation and likely surgical intervention Quality Stroke Does the patient have a stroke diagnosis?: No VTE Prior VTE?: No VTE Risk Level:: Medical - moderate - high VTE Device Contraindication: N/A - Device Ordered VTE Drug Contraindication: N/A - Med Ordered
--- NOTE | 2024-03-27 11:18 | P.CDIM_ITS ---
PROVIDER RESPONSE TEXT: To clarify, the appropriate diagnosis supported by the clinical indicators: Paroxysmal atrial fibrillation QUERY TEXT: PHYSICIAN'S DOCUMENTATION REQUEST Date of Query: 03/27/2024 08:23 AM EDT Patient Name: Jr Cruz Admit Date: 03/23/2024 Dear Isa Teran COLLAR FOLDER OPERATOR, A review of the medical record indicates additional documentation may be needed. Please review below and update the documentation accordingly. Clinical Indicators: Progress notes: Atrial fibrillation with rapid ventricular response> resolved. Converted to sinus. Continue metoprolol, amiodarone Hold Eliquis for possible surgical intervention. Cardiology consult: continue amiodarone, beta-lion, anticoagulation. If possible, please provide further specificity regarding atrial fibrillation, such as: Paroxysmal atrial fibrillation Persistent atrial fibrillation Long lasting persistent atrial fibrillation Permanent atrial fibrillation Other (explain) Clinically unable to determine (explain) Thank you, Mandy Parson, CCS, CDIS Use of terms such as suspected, likely, concern for, or probable (associated with a specific diagnosi s that is being evaluated, monitored, or treated as if it exists) are acceptable and can be coded in the inpatient se tting, when documented at the time of discharge. Please use your independent medical judgment in providing your response. THIS QUERY IS PART OF THE PERMANENT MEDICAL RECORD
--- NOTE | 2024-03-27 12:57 | P.CONGS_ITS ---
History of Present Illness Consult details Consult date: 03/27/24 Reason for consult: wound care Narrative: Pleasant 58-year-old gentleman who originally presented to the hospital with shortness of breath and left foot pain has a prior history of COPD diabetes and left great toe osteomyelitis. He had undergone amputation earlier this year. Of note he has been followed by the [facility] [place] but is unclear what is currently being done. In addition he had been seen and treated by Dr. Chapman at his outpatient facility. He has undergone endovascular intervention in July of this year. In addition he reports that it is unclear but some sort of catheter broke off in his leg. He he was not very certain of the details. But he is clear on the fact that he did have prior endovascular intervention. Review of Systems 2 Review of Systems: Yes all other systems are reviewed and are negative Constitutional: Constitutional: Reports no additional constitutional complaints ENT: Reports Normal hearing present Cardiovascular: Cardiovascular: Denies chest pain, Denies chest pain at rest, Denies chest pain with activity and Denies pedal edema Respiratory: Respiratory: Denies cough Gastrointestinal: Gastrointestinal: Denies abdominal pain Musculoskeletal: Musculoskeletal: Denies abnormal gait, Denies muscle cramps and Denies radiating pain into limb Integumentary/Breasts: Skin/Breast: Denies skin ulcer and Denies wounds Neurologic: Reports Normal hearing present and Denies abnormal gait Psychiatric: Psychiatric: Reports no additional psychiatric complaints PMFSH Past Medical History Medical History Acute on chronic HFrEF (heart failure with reduced ejection fraction) History of osteomyelitis 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 Diverticulosis Tubular adenoma of colon (~2018) History of COVID-19 Nicotine dependence, cigarettes, uncomplicated Hypertensive retinopathy Microhematuria ICD (implantable cardioverter-defibrillator) in place COPD (chronic obstructive pulmonary disease) KIMANI (obstructive sleep apnea) Sleep apnea CAD (coronary artery disease) Paroxysmal atrial fibrillation (~2017) Family History Family History Father Atherosclerosis Mother Cerebral aneurysm Maternal Grandmother Unknown family medical history Mother Cerebral hemorrhage Father Coronary artery disease Surgical History Surgical History History of amputation of left great toe History of cardiac cath History of ankle surgery History of implantable cardiac defibrillator (ICD) History of colonoscopy History of heart artery stent History of cardiac radiofrequency ablation History of cardioversion History of esophagogastroduodenoscopy History of umbilical hernia History of inguinal hernia Social History Social History Household Members: None Housing: House Are you a primary career technical supervisor to a significant other at home: No Do you presently have visiting nurse or other home services: Yes Alcohol intake: former Patient Tobacco Use Status: Current everyday Tobacco user Tobacco use type: Cigarette Cigarette Packs Per Day: 1 Years Smoked: (current smoker - onset 14yo, 1ppd x 43yrs, 40pyh) Smoked in Last 30 Days: Yes e-Cigarette/Vaping Use: Never Used Second Hand Smoke Exposure: Yes Use of substances other than those prescribed or required for medical reasons: No Currently Displaying Signs/Symptoms of Drug Intoxication Withdrawal: No Any prior treatment program specific to substance use: No Have you been hit, kicked, punched, or otherwise hurt by someone within the past year? If so, by whom?: No Do you feel safe in your current relationship?: Yes Is there a partner from a previous relationship who is making you feel unsafe now?: No Are you made to feel afraid or neglected: No Advance Directives: Yes Advance Directives on File: Yes Advance Directives Date on File: 07/09/21 Do you have a plan to hurt others: No Plan service: No Current occupational status: unemployed and disabled Current occupation: rt handed Cognitive needs: No Hearing needs: No Vision needs: Yes Meds Allergies Allergy/AdvReac Type Severity Reaction Status Date / Time No Known Allergies Allergy Verified 03/23/24 11:55 [No Known Allergies*] Active Medications: Current Medications Acetaminophen (Acetaminophen 325 Mg Tablet) 650 mg PO Q6H PRN PRN Reason: Pain, Mild (Pain Scale 1-3), fever or headache Last Admin: 03/27/24 08:25 Dose: 650 mg Albuterol Sulfate (Albuterol Sulfate (0.083%) 2.5 Mg/3 Ml Vial.Neb) 2.5 mg INHALE RQ6H PRN PRN Reason: Shortness Of Breath Or Wheezing Amiodarone HCl (Amiodarone Hcl 200 Mg Tablet) 200 mg PO DAILY [facility] Last Admin: 03/27/24 08:26 Dose: 200 mg Apixaban (Apixaban 5 Mg Tablet) 5 mg PO BID [facility] Last Admin: 03/24/24 08:19 Dose: 5 mg Enoxaparin Sodium (Enoxaparin Sodium 100 Mg/Ml Syringe) 90 mg SUBCUT Q12H [facility] Last Admin: 03/26/24 21:59 Dose: 90 mg Fluticasone/Vilanterol (Fluticasone/Vilanterol 100/25 Blst.W.Dev) 1 puff INHALE RDAILY [facility] Last Admin: 03/27/24 09:24 Dose: 1 puff Gabapentin (Gabapentin 300 Mg Capsule) 300 mg PO TID [facility] Last Admin: 03/26/24 21:59 Dose: 300 mg Glucose (Glucose Gel 15 Gm Gel..Gram.) 15 gm PO Q15M PRN; Protocol PRN Reason: per Hypoglycemia Standing Ord. Guaifenesin (Guaifenesin La 600 Mg Tab.Er.12h) 600 mg PO BID [facility] Last Admin: 03/27/24 08:26 Dose: 600 mg Dextrose (D10) 250 mls @ 750 mls/hr IV Q15M PRN; Protocol PRN Reason: per Hypoglycemia Standing Ord. Cefepime HCl 2 gm/ Sodium (Chloride) 50 mls @ 100 mls/hr IV Q12H [facility] Last Infusion: 03/27/24 12:22 Dose: Infused Clindamycin Phosphate (Cleocin) 900 mg in 50 mls @ 50 mls/hr IV Q8H [facility] Last Infusion: 03/27/24 06:28 Dose: Infused Vancomycin HCl 750 mg/ Sodium (Chloride) 265 mls @ 265 mls/hr IV Q24H [facility] Last Infusion: 03/27/24 00:06 Dose: Infused Sodium Chloride (Ns) 1,000 mls @ 50 mls/hr IVCONT .Q20H [facility] Last Infusion: 03/27/24 11:49 Dose: 50 mls/hr Insulin Glargine (Insulin Glargine,Hum.Rec.Anlog 100 Unit/Ml 10 Ml Vial) 15 unit SUBCUT BEDTIME [facility] Last Admin: 03/26/24 22:01 Dose: 15 unit Insulin Human Lispro (Insulin Lispro 100 Unit/Ml 3 Ml Vial) 0 unit SUBCUT QIDACHS [facility]; Protocol Last Admin: 03/27/24 11:41 Dose: 4 unit Levalbuterol HCl (Levalbuterol Hcl 1.25 Mg/3 Ml Vial.Neb) 1.25 mg INHALE RQ4H PRN PRN Reason: Shortness of Breath/Wheezing Last Admin: 03/24/24 08:22 Dose: 1.25 mg Levalbuterol HCl (Levalbuterol Hcl 1.25 Mg/3 Ml Vial.Neb) 1.25 mg INHALE RQ6H [facility] Last Admin: 03/27/24 11:43 Dose: 1.25 mg Melatonin (Melatonin 3 Mg Tablet) 6 mg PO BEDTIME PRN PRN Reason: Insomnia Melatonin (Melatonin 3 Mg Tablet) 3 mg PO BEDTIME [facility] Last Admin: 03/26/24 21:59 Dose: 3 mg Metoprolol Succinate (Metoprolol Succinate Er 100 Mg Tab.Er.24h) 100 mg PO DAILY [facility]; Protocol Last Admin: 03/27/24 08:38 Dose: Not Given Morphine Sulfate (Morphine Sulfate 2 Mg/Ml Cartridge) 2 mg IVPUSH Q4H PRN; Protocol PRN Reason: Pain, Severe (Pain Scale 7-10) Last Admin: 03/27/24 04:16 Dose: 2 mg Omeprazole (Omeprazole 20 Mg Capsule.Dr) 20 mg PO DAILY@0630 [facility] Last Admin: 03/27/24 05:17 Dose: 20 mg Pharmacy Consult (Consult Rx Vancomycin Dosing) 1 each MISCELLANE DAILY PRN PRN Reason: Consult order Prednisone (Prednisone 20 Mg Tablet) 40 mg PO DAILY [facility] Last Admin: 03/27/24 08:26 Dose: 40 mg Senna (Sennosides 8.6 Mg Tablet) 17.2 mg PO BEDTIME [facility] Last Admin: 03/26/24 21:59 Dose: 17.2 mg Sertraline HCl (Sertraline Hcl 25 Mg Tablet) 25 mg PO DAILY [facility] Last Admin: 03/27/24 08:26 Dose: 25 mg Sodium Chloride (0.9 % Sodium Chloride Flush 3 Ml Syringe) 3 ml IVFLUSH QSHIFT [facility] Last Admin: 03/27/24 08:38 Dose: Not Given Thiamine HCl (Thiamine Hcl 100 Mg Tablet) 100 mg PO DAILY [facility] Last Admin: 03/27/24 08:26 Dose: 100 mg Torsemide (Torsemide 20 Mg Tablet) 20 mg PO Q48H [facility]; Protocol Last Admin: 03/26/24 08:30 Dose: 20 mg Home Medications ?Medication ?Instructions ?Recorded ?Confirmed ?Last Taken ?Type acetaminophen 325 mg tablet 650 mg PO Q6H PRN Pain, Moderate 11/18/23 03/23/24 Unknown History colchicine 0.6 mg tablet 0.6 mg PO DAILY 11/18/23 03/23/24 11/16/23 History insulin glargine 100 unit/mL (3 17 unit subcut BEDTIME 11/18/23 03/23/24 03/22/24 History mL) subcutaneous pen (Lantus Solostar U-100 Insulin) insulin lispro 100 unit/mL 7 unit subcut TIDAC 11/18/23 03/23/24 03/22/24 History subcutaneous solution metoprolol succinate 100 mg 100 mg PO DAILY 12/20/23 03/23/24 03/22/24 History tablet,extended release 24 hr torsemide 20 mg tablet 20 mg PO Q48H 12/20/23 03/23/24 Unknown History albuterol sulfate 2.5 mg/3 mL 2.5 mg inhalation Q6H PRN 03/23/24 03/23/24 Unknown History (0.083 %) solution for nebulization Shortness Of Breath Or Wheezing apixaban 5 mg tablet (Eliquis) 5 mg PO BID 03/23/24 03/23/24 Unknown History empagliflozin 10 mg tablet 10 mg PO DAILY 03/23/24 03/23/24 03/22/24 History (Jardiance) fluticasone propionate 45 2 puff inhalation BID 03/23/24 03/23/24 Unknown History mcg-salmeterol 21 mcg/actuation HFA inhaler (Advair HFA) sennosides 8.6 mg tablet (senna) 17.2 mg PO BEDTIME 03/23/24 03/23/24 Unknown History Physical Exam 2 Vital Signs: Vital Signs: Last Vital Signs Temp 97.1 F 03/27/24 10:59 Pulse 56 03/27/24 11:49 Resp 15 03/27/24 11:49 BP 92/54 L 03/27/24 10:59 Pulse Ox 96 03/27/24 10:59 O2 Del Method Room Air 09/30/24 10:59 O2 Flow Rate 2 03/23/24 19:54 BMI result Body Mass Index 28.3 Const: General: cooperative, healthy appearing and comfortable O rientation/consciousness: oriented to person, oriented to place and oriented to time HEENT: Head: Yes normal to inspection Neck: Neck: Yes normal visual inspection Carotids: no bruits Chest: Chest palpation & inspection: normal inspection of the chest Resp: Effort & Inspection: normal respiratory effort and able to speak in complete sentences Auscultation: clear to auscultation bilaterally, no crackles, no rales, no rhonchi and no wheezes Cardio: Other: Bilateral DP signals Rate: regular rate Rhythm: regular rhythm Heart sounds: S1 normal heart sound present and S2 normal heart sound present Bruits: no carotid bruits GI: Inspection: Yes normal to inspection Skin: Other: Left great toe amp with underlying callus underneath. Nonhealing ulcer Wounds: no wounds Hair: normal Neuro: General: oriented to person, oriented to place and oriented to time Cranial nerves: Yes CN's II-XII intact bilaterally and Yes Normal hearing present Cognition (Neuro): normal cognition Motor exam (neuro): 5/5 motor strength present throughout Extrem: Other: venous exam: No significant superficial varicosities or spider telangiectasias, minimal edema General: No clubbing, No cyanosis and No edema Psych: Appearance: grossly normal Mental Status: mental status grossly normal Speech and movement: Normal speech and movement present Results Labs 03/26/24 06:27 03/27/24 06:16 Labs: Abnormal lab results 03/26/24 03/26/24 03/27/24 Range/Units 16:04 20:36 05:36 Creatinine (0.5-1.4) mg/dL POC Glucose 210 H 245 H 190 H (60-115) mg/dL 03/27/24 03/27/24 03/27/24 Range/Units 06:16 06:55 10:51 Creatinine 2.51 H (0.5-1.4) mg/dL POC Glucose 178 H 233 H (60-115) mg/dL BMP 03/27/24 06:16 Creatinine 2.51 H All other labs normal. Assessment and Plan (1) PAD (peripheral artery disease): Status: Acute Plan In short patient has nonhealing left foot diabetic ulcer. There is concern below-knee disease. Unclear what the status of this is. At the current time the lower extremity does not appear threatened or ischemic. Motor and sensation is intact. Stable from a urgent vascular perspective. Patient can follow up with Dr. Chapman as he has treated him before. Should there be any interval issues please contact Dr. Chapman as he does have hospital privileges here. Procedures Date of Service Date of Service: 03/27/24
--- NOTE | 2024-03-27 13:54 | PM.PNGS ---
Subjective Subjective Date of Service: 03/27/24 Interval history: Patient reports feeling shaky this morning, continued left foot pain. Physical Exam Vital Signs: Vital Signs: Last Vital Signs Temp 97.1 F 03/27/24 10:59 Pulse 56 03/27/24 11:49 Resp 15 03/27/24 11:49 BP 92/54 L 03/27/24 10:59 Pulse Ox 96 03/27/24 10:59 O2 Del Method Room Air 03/27/24 10:59 O2 Flow Rate 2 03/23/24 19:54 BMI result Body Mass Index 28.3 Const: General: no acute distress Nutritional Appearance: well nourished Orientation/consciousness: patient oriented x3 Resp: Effort & Inspection: normal respiratory effort Skin: Other: No rash, no erythema Neuro: General: patient oriented x3 Extrem: Other: Open wound left plantar surface of foot draining minimal purulent discharge. No surrounding erythema or fluctuance appreciated. Clean dressings applied. No evidence of erythema or necrosis. Objective Data Active Medications Acetaminophen (Acetaminophen 325 Mg Tablet) 650 mg PO Q6H PRN PRN Reason: Pain, Mild (Pain Scale 1-3), fever or headache Last Admin: 03/27/24 08:25 Dose: 650 mg Documented By: GABE Albuterol Sulfate (Albuterol Sulfate (0.083%) 2.5 Mg/3 Ml Vial.Neb) 2.5 mg INHALE RQ6H PRN PRN Reason: Shortness Of Breath Or Wheezing Amiodarone HCl (Amiodarone Hcl 200 Mg Tablet) 200 mg PO DAILY [facility] Last Admin: 03/27/24 08:26 Dose: 200 mg Documented By: GABE Apixaban (Apixaban 5 Mg Tablet) 5 mg PO BID [facility] Last Admin: 03/24/24 08:19 Dose: 5 mg Documented By: YUNIOR Enoxaparin Sodium (Enoxaparin Sodium 100 Mg/Ml Syringe) 90 mg SUBCUT Q12H [facility] Last Admin: 03/26/24 21:59 Dose: 90 mg Documented By: ALIE Fluticasone/Vilanterol (Fluticasone/Vilanterol 100/25 Blst.W.Dev) 1 puff INHALE RDAILY [facility] Last Admin: 03/27/24 09:24 Dose: 1 puff Documented By: JUNIOR Gabapentin (Gabapentin 300 Mg Capsule) 300 mg PO TID [facility] Last Admin: 03/26/24 21:59 Dose: 300 mg Documented By: ALIE Glucose (Glucose Gel 15 Gm Gel..Gram.) 15 gm PO Q15M PRN; Protocol PRN Reason: per Hypoglycemia Standing Ord. Guaifenesin (Guaifenesin La 600 Mg Tab.Er.12h) 600 mg PO BID [facility] Last Admin: 03/27/24 08:26 Dose: 600 mg Documented By: GABE Dextrose (D10) 250 mls @ 750 mls/hr IV Q15M PRN; Protocol PRN Reason: per Hypoglycemia Standing Ord. Clindamycin Phosphate (Cleocin) 900 mg in 50 mls @ 50 mls/hr IV Q8H [facility] Last Admin: 03/27/24 13:18 Dose: 50 mls/hr Documented By: GABE Sodium Chloride (Ns) 1,000 mls @ 50 mls/hr IVCONT .Q20H [facility] Last Infusion: 03/27/24 11:49 Dose: 50 mls/hr Documented By: GABE Insulin Glargine (Insulin Glargine,Hum.Rec.Anlog 100 Unit/Ml 10 Ml Vial) 15 unit SUBCUT BEDTIME [facility] Last Admin: 03/26/24 22:01 Dose: 15 unit Documented By: ALIE Insulin Human Lispro (Insulin Lispro 100 Unit/Ml 3 Ml Vial) 0 unit SUBCUT QIDACHS [facility]; Protocol Last Admin: 03/27/24 11:41 Dose: 4 unit Documented By: GABE Levalbuterol HCl (Levalbuterol Hcl 1.25 Mg/3 Ml Vial.Neb) 1.25 mg INHALE RQ4H PRN PRN Reason: Shortness of Breath/Wheezing Last Admin: 03/24/24 08:22 Dose: 1.25 mg Documented By: DAVID Levalbuterol HCl (Levalbuterol Hcl 1.25 Mg/3 Ml Vial.Neb) 1.25 mg INHALE RQ6H [facility] Last Admin: 03/27/24 11:43 Dose: 1.25 mg Documented By: JUNIOR Melatonin (Melatonin 3 Mg Tablet) 6 mg PO BEDTIME PRN PRN Reason: Insomnia Melatonin (Melatonin 3 Mg Tablet) 3 mg PO BEDTIME [facility] Last Admin: 03/26/24 21:59 Dose: 3 mg Documented By: ALIE Metoprolol Succinate (Metoprolol Succinate Er 100 Mg Tab.Er.24h) 100 mg PO DAILY [facility]; Protocol Last Admin: 03/27/24 08:38 Dose: Not Given Documented By: GABE Non-Admin Reason: Decreased Blood Pressure Morphine Sulfate (Morphine Sulfate 2 Mg/Ml Cartridge) 2 mg IVPUSH Q4H PRN; Protocol PRN Reason: Pain, Severe (Pain Scale 7-10) Last Admin: 03/27/24 04:16 Dose: 2 mg Documented By: ALIE Omeprazole (Omeprazole 20 Mg Capsule.Dr) 20 mg PO DAILY@0630 [facility] Last Admin: 03/27/24 05:17 Dose: 20 mg Documented By: ALIE Pharmacy Consult (Consult Rx Vancomycin Dosing) 1 each MISCELLANE DAILY PRN PRN Reason: Consult order Prednisone (Prednisone 20 Mg Tablet) 40 mg PO DAILY [facility] Last Admin: 03/27/24 08:26 Dose: 40 mg Documented By: GABE Senna (Sennosides 8.6 Mg Tablet) 17.2 mg PO BEDTIME [facility] Last Admin: 03/26/24 21:59 Dose: 17.2 mg Documented By: ALIE Sertraline HCl (Sertraline Hcl 25 Mg Tablet) 25 mg PO DAILY [facility] Last Admin: 03/27/24 08:26 Dose: 25 mg Documented By: GABE Sodium Chloride (0.9 % Sodium Chloride Flush 3 Ml Syringe) 3 ml IVFLUSH QSHIFT [facility] Last Admin: 03/27/24 08:38 Dose: Not Given Documented By: GABE Non-Admin Reason: IV Running Thiamine HCl (Thiamine Hcl 100 Mg Tablet) 100 mg PO DAILY [facility] Last Admin: 03/27/24 08:26 Dose: 100 mg Documented By: GABE Torsemide (Torsemide 20 Mg Tablet) 20 mg PO Q48H [facility]; Protocol Last Admin: 03/26/24 08:30 Dose: 20 mg Documented By: ANYI Labs 03/26/24 06:27 03/27/24 06:16 Labs: Laboratory Results - last 24 hr 03/26/24 03/26/24 03/26/24 16:04 20:36 20:58 Estim Creat Clear Calc Estimated GFR POC Glucose 210 H 245 H Lactic Acid Random Vancomycin 16.4 03/26/24 03/27/24 03/27/24 22:41 05:36 06:16 Estim Creat Clear Calc 36.3 Estimated GFR 26 POC Glucose 190 H Lactic Acid 1.8 Random Vancomycin 03/27/24 03/27/24 06:55 10:51 Estim Creat Clear Calc Estimated GFR POC Glucose 178 H 233 H Lactic Acid Random Vancomycin Procedures Date of Service Date of Service: 03/27/24 Progress Note: A&P Assessment and plan (1) Foot ulcer, left: Status: Acute Plan Overall the patient is mildly improved today with decreased foot pain. Appreciate Dr. Chatman's input; no acute issues at this time, further management deferred to Dr. Tee Leal. Dressings changed to left foot. Time Spent With Patient Time: Total time managing care of this patient today ____ minutes. Quality Stroke Does the patient have a stroke diagnosis?: No VTE Prior VTE?: No VTE Risk Level:: Medical - moderate - high VTE Device Contraindication: N/A - Device Ordered VTE Drug Contraindication: N/A - Med Ordered
[2024-03-27 16:03] LABS: Glucose, Whole Blood 200 mg/dL (60-115)
[2024-03-27 20:20] LABS: Glucose, Whole Blood 204 mg/dL (60-115)
[2024-03-27] MEDS: Insulin Glargine,Hum.rec.anlog 100 UNIT/ML 10 ML VIAL 15 UNIT SUBCUT (20:52)
[2024-03-27] MEDS: Sennosides 8.6 MG TABLET 17.2 MG PO (20:52)
[2024-03-27] MEDS: Apixaban 5 MG TABLET PO (20:53)
[2024-03-27] MEDS: Melatonin 3 MG TABLET PO (20:53)
[2024-03-27 21:25] LABS: Vancomycin Random 22.6 mcg/mL (15-20)
--- NOTE | 2024-03-27 21:30 | HE.PHANOTE ---
Re Vanc Pt renal function continuing to worsen. Will change to 500mg q24H for a projected AUC of 497 due to a trough of 22.6 mg/L today after a dose of 750mg ~22 hours ago. Next level tomorrow at 2100.
[2024-03-27] MEDS: vancomycin HCL 500 MG in 0.9 % Sodium Chloride 100 ML 110 MG IV (22:41)
[2024-03-27] MEDS: 0.9 % Sodium Chloride Flush 3 ML SYRINGE IVFLUSH (23:48)
[2024-03-27] MEDS: 0.9 % Sodium Chloride 1,000 ML 50 ML IVCONT (23:49)
[2024-03-28] VITALS (12 sets, daily range): BP systolic 75–104; BP diastolic 53–69; PULSE 60–70; RESP 18–20; TEMP 36.1–36.8; O2SAT 94–99
--- NOTE | 2024-03-28 | ECG_ITS ---
Test Reason : QTC CHECK Blood Pressure : / mmHG Vent. Rate : 064 BPM Atrial Rate : 064 BPM P-R Int : 000 ms QRS Dur : 154 ms QT Int : 504 ms P-R-T Axes : 000 246 093 degrees QTc Int : 519 ms Atrial-paced rhythm with prolonged AV conduction with frequent Premature ventricular complexes Abnormal ECG When compared with ECG of 24-MAR-2024 08:45, Atrial-paced rhythm has replaced Sinus rhythm QT has lengthened Referred By: Isa Teran Electronically Signed By:BROOKE YOUNG
[2024-03-28] MEDS: Morphine Sulfate 2 MG/ML CARTRIDGE IVPUSH ×2 (03:33→10:27)
[2024-03-28 06:35] LABS: Creatinine Clr Calc Pharmacy 30.7; Estimated Glomerular Filt Rate 22
[2024-03-28] MEDS: levalbuterol HCL 1.25 MG/3 ML VIAL.NEB INHALE ×3 (06:41→19:44)
[2024-03-28 07:02] LABS: Glucose, Whole Blood 153 mg/dL (60-115)
[2024-03-28] MEDS: Metoprolol Succinate ER 100 MG TAB.ER.24H PO (08:00)
[2024-03-28] MEDS: predniSONE 20 MG TABLET 40 MG PO (08:01)
[2024-03-28] MEDS: guaiFENesin LA 600 MG TAB.ER.12H PO ×2 (08:01→20:50)
[2024-03-28] MEDS: Omeprazole 20 MG CAPSULE.DR PO (08:01)
[2024-03-28] MEDS: Thiamine HCL 100 MG TABLET PO (08:01)
[2024-03-28] MEDS: Apixaban 5 MG TABLET PO (08:01)
[2024-03-28] MEDS: Sertraline HCL 25 MG TABLET PO (08:01)
[2024-03-28] MEDS: Amiodarone HCL 200 MG TABLET PO (08:01)
[2024-03-28] MEDS: Insulin Lispro 100 UNIT/ML 3 ML VIAL SUBCUT ×3 (08:01→17:16)
[2024-03-28] MEDS: Clindamycin Phosphate/D5W 900 MG/50 ML PIGGYBACK 50 MG IV ×3 (08:20→22:37)
[2024-03-28 08:30] LABS: Anion Gap 23 (12-20); Blood Urea Nitrogen 113 mg/dL (9-16); Calcium 7.4 mg/dL (8.4-10.2); Carbon Dioxide 13 mmol/L (22-29); Chloride 99 mmol/L (96-108); Glucose Random 151 mg/dL (60-115)
[2024-03-28 08:31] LABS: Sodium 129 mmol/L (135-145)
[2024-03-28 08:33] LABS: Potassium 6.1 mmol/L (3.3-5.1)
[2024-03-28] MEDS: Fluticasone/Vilanterol 100/25 BLST.W.DEV 1 PUFF INHALE (08:55)
--- NOTE | 2024-03-28 09:19 | HO.WOUND ---
Wound Consult: Initial 58yr old Male admitted to [facility] on 03/23/24 - See progress notes and H&P for detailed history.? Wound consult placed for Left Plantar foot wound.? Patient agreeable to assessment and photo documentation.? Patient follows with outpt wound clinic last appointment 03/08/24 - recommend continued follow up at time of D/C. Left Plantar wound and Blister to 2nd toe webspace Etiology: ??Diabetic Wound Measurements: 1.8cm x 0.8cm x 0.8cm Wound Bed: marbled wound bed with red moist tissue and adherent yellow slough Drainage / Odor: [place] yellow drainage noted on dressing when removed Edges: ? callused and nonadherent [place] wound: ?Callused and serous filled blister to 2nd toe webspace Pain: denies reports neuropathy Goals of Treatment: ? Durafiber AG Recommendations: 1. When applicable maintain blood glucose levels per Providers order. 2. Left Plantar foot - Off Load Pressure - Cleanse and irrigate with NS, Pat dry.? Apply barrier to periwound, lightly pack with Durafiber AG, be sure to leave a wick to easy removal.? Cover with dry gauze, gauze wrap.? Change every other day. Recommend continued follow up out patient Wound Clinic at [address] [place] [id number] and to call for an appointment at time of discharge. [phone].? Re-consult wound care Nurse for wound deterioration or wound changes.
--- NOTE | 2024-03-28 09:57 | P.PNIM_ITS ---
Subjective Subjective Date of Service: 03/28/24 Interval History: Seen and examined this morning Follow-up for diabetic foot wound, AFib, COPD exacerbation Persistent shortness of breath, heart rate improved, still with foot pain Review of Systems Review of Systems: Yes all other systems are reviewed and are negative Constitutional Constitutional: Denies chills and Denies fever(s) Cardiovascular Cardiovascular: Denies chest pain, Denies palpitations and Reports dyspnea Respiratory Respiratory: Reports dyspnea Gastrointestinal Gastrointestinal: Denies abdominal pain, Denies nausea and Denies vomiting Endocrine Endocrine: Denies palpitations Physical Exam 2 Vital Signs: Vital Signs: Last Vital Signs Temp 97.5 F 03/28/24 07:13 Pulse 70 03/28/24 08:59 Resp 20 03/28/24 08:59 BP 103/65 03/28/24 07:13 Pulse Ox 98 03/28/24 07:13 O2 Del Method CPAP 03/28/24 07:13 O2 Flow Rate 2 03/23/24 19:54 BMI result Body Mass Index 28.3 Appearing in no acute distress lung sounds are clear to auscultation heart regular rate rhythm, clear S1, S2 positive bowel sounds, abdomen is soft, nontender neuro patient is alert x3, no focal deficits Objective Data Active Medications Acetaminophen (Acetaminophen 325 Mg Tablet) 650 mg PO Q6H PRN PRN Reason: Pain, Mild (Pain Scale 1-3), fever or headache Last Admin: 03/27/24 08:25 Dose: 650 mg Documented By: GABE Albuterol Sulfate (Albuterol Sulfate (0.083%) 2.5 Mg/3 Ml Vial.Neb) 2.5 mg INHALE RQ6H PRN PRN Reason: Shortness Of Breath Or Wheezing Amiodarone HCl (Amiodarone Hcl 200 Mg Tablet) 200 mg PO DAILY [facility] [place] Last Admin: 03/28/24 08:01 Dose: 200 mg Documented By: MENDEL Apixaban (Apixaban 5 Mg Tablet) 5 mg PO BID [facility] [place] Last Admin: 03/28/24 08:01 Dose: 5 mg Documented By: MENDEL Enoxaparin Sodium (Enoxaparin Sodium 100 Mg/Ml Syringe) 90 mg SUBCUT Q12H [facility] [place] Last Admin: 03/26/24 21:59 Dose: 90 mg Documented By: HO.[email or web address] Fluticasone/Vilanterol (Fluticasone/Vilanterol 100/25 Blst.W.Dev) 1 puff INHALE RDAILY [facility] [place] Last Admin: 03/28/24 08:55 Dose: 1 puff Documented By: ANI Gabapentin (Gabapentin 300 Mg Capsule) 300 mg PO TID [facility] [place] Last Admin: 03/26/24 21:59 Dose: 300 mg Documented By: ALIE Glucose (Glucose Gel 15 Gm Gel..Gram.) 15 gm PO Q15M PRN; Protocol PRN Reason: per Hypoglycemia Standing Ord. Guaifenesin (Guaifenesin La 600 Mg Tab.Er.12h) 600 mg PO BID [facility] [place] Last Admin: 03/28/24 08:01 Dose: 600 mg Documented By: MENDEL Dextrose (D10) 250 mls @ 750 mls/hr IV Q15M PRN; Protocol PRN Reason: per Hypoglycemia Standing Ord. Clindamycin Phosphate (Cleocin) 900 mg in 50 mls @ 50 mls/hr IV Q8H [facility] [place] Last Infusion: 03/28/24 09:37 Dose: Infused Documented By: MENDEL Insulin Glargine (Insulin Glargine,Hum.Rec.Anlog 100 Unit/Ml 10 Ml Vial) 15 unit SUBCUT BEDTIME [facility] [place] Last Admin: 03/27/24 20:52 Dose: 15 unit Documented By: ANGEL Insulin Human Lispro (Insulin Lispro 100 Unit/Ml 3 Ml Vial) 0 unit SUBCUT QIDACHS [facility] [place]; Protocol Last Admin: 03/28/24 08:01 Dose: 2 unit Documented By: MENDEL Levalbuterol HCl (Levalbuterol Hcl 1.25 Mg/3 Ml Vial.Neb) 1.25 mg INHALE RQ4H PRN PRN Reason: Shortness of Breath/Wheezing Last Admin: 03/24/24 08:22 Dose: 1.25 mg Documented By: DAVID Levalbuterol HCl (Levalbuterol Hcl 1.25 Mg/3 Ml Vial.Neb) 1.25 mg INHALE RQ6H [facility] [place] Last Admin: 03/28/24 06:41 Dose: 1.25 mg Documented By: SISI Melatonin (Melatonin 3 Mg Tablet) 6 mg PO BEDTIME PRN PRN Reason: Insomnia Melatonin (Melatonin 3 Mg Tablet) 3 mg PO BEDTIME [facility] [place] Last Admin: 03/27/24 20:53 Dose: 3 mg Documented By: ANGEL Metoprolol Succinate (Metoprolol Succinate Er 100 Mg Tab.Er.24h) 100 mg PO DAILY [facility] [place]; Protocol Last Admin: 03/28/24 08:00 Dose: 100 mg Documented By: MENDEL Morphine Sulfate (Morphine Sulfate 2 Mg/Ml Cartridge) 2 mg IVPUSH Q4H PRN; Protocol PRN Reason: Pain, Severe (Pain Scale 7-10) Last Admin: 03/28/24 03:33 Dose: 2 mg Documented By: GORDY Omeprazole (Omeprazole 20 Mg Capsule.Dr) 20 mg PO DAILY@0630 [facility] [place] Last Admin: 03/28/24 08:01 Dose: 20 mg Documented By: MENDEL Prednisone (Prednisone 20 Mg Tablet) 40 mg PO DAILY [facility] [place] Stop: 03/28/24 23:59 Last Admin: 03/28/24 08:01 Dose: 40 mg Documented By: MENDEL Prednisone (Prednisone 10 Mg Tablet) 30 mg PO DAILY [facility] [place] Stop: 03/31/24 08:59 Senna (Sennosides 8.6 Mg Tablet) 17.2 mg PO BEDTIME [facility] [place] Last Admin: 03/27/24 20:52 Dose: 17.2 mg Documented By: ANGEL Sertraline HCl (Sertraline Hcl 25 Mg Tablet) 25 mg PO DAILY [facility] [place] Last Admin: 03/28/24 08:01 Dose: 25 mg Documented By: MENDEL Sodium Chloride (0.9 % Sodium Chloride Flush 3 Ml Syringe) 3 ml IVFLUSH QSHIFT [facility] [place] Last Admin: 03/28/24 08:20 Dose: Not Given Documented By: MENDEL Non-Admin Reason: IV Running Thiamine HCl (Thiamine Hcl 100 Mg Tablet) 100 mg PO DAILY [facility] [place] Last Admin: 03/28/24 08:01 Dose: 100 mg Documented By: MENDEL Torsemide (Torsemide 20 Mg Tablet) 20 mg PO Q48H [facility] [place]; Protocol Last Admin: 03/26/24 08:30 Dose: 20 mg Documented By: ANYI Labs 03/28/24 10:23 03/28/24 05:53 Labs: Laboratory Results - last 24 hr 03/27/24 03/27/24 03/27/24 10:51 15:54 20:10 Anion Gap Estim Creat Clear Calc Estimated GFR POC Glucose 233 H 200 H 204 H Random Glucose Calcium Random Vancomycin 03/27/24 03/28/24 03/28/24 21:04 05:53 06:52 Anion Gap 23 H Estim Creat Clear Calc 30.7 Estimated GFR 22 POC Glucose 153 H Random Glucose 151 H Calcium 7.4 L D Random Vancomycin 22.6 H Microbiology Microbiology Results: Microbiology 03/26/24 22:43 Blood Culture - Preliminary Blood - Venous No growth after 24 hours. 03/26/24 22:43 Blood Culture - Preliminary Blood - Venous No growth after 24 hours. Assessment and Plan (1) Foot ulcer, left: Status: Acute (2) Hyperkalemia: Status: Acute (3) Cellulitis: Status: Acute Plan This is a 58-year-old male with a history of atrial fibrillation on Eliquis, ischemic cardiomyopathy status post AICD, coronary artery disease status post PCI, COPD, KIMANI on CPAP among others who presents to the emergency department with shortness of breath and redness of his foot found to have COPD exacerbation, diabetic foot ulcer, atrial fibrillation with rapid ventricular response, hyperglycemia Acute on chronic congestive heart failure with reduced ejection fraction Has been on cpap during the day with increased shortness of breath ABG 7.28/32/85/15 , ammonia 57 Chest x-ray pending BNP 2959 Lasix 40 mg IV b.i.d. Reconsult Cardiology Place Joshi catheter for fluid management Daily weights, strict intake and output Transaminitis Likely secondary to heart failure AST 309/ALT 935/alk-phos 196 Ammonia 57 INR pending Diurese Primary metabolic acidosis Bicarb 15 Start sodium bicarb t.i.d. as per Nephrology Acute hyperkalemia No EKG changes likely related to worsening renal function Lokelma DECLAN Multifactorial secondary to medication, hypoperfusion from hypotension and acute CHF Marin increase in creatinine, likely vanco tox Seen by Nephrology> hold colchicine, torsemide vancomycin stoppped add midorine for low BP Left diabetic foot wound CT showing soft tissue swelling, synovitis, ? Phlegmon versus early abscess, necrotizing fasciitis> seen by general surgery, no plan for surgery IV vancomycin and cefepime stopped. Clindamycin continued (started 03/24/24) complete 5 days Arterial doppler showing delayed arterial upstroke suggesting inflow disease>vascular surgery consultation pending>no vascular intervention required at this time wound nurse following>see note Resume massiel Discussed with surgery today regarding abx, unable to get MRI due to defib, will obtain WBC scan to r/o osteo Acute respiratory failure with hypoxia due to exacerbation of COPD. Resolved s/p IV Solu-Medrol, now on prednisone 40mg, taper down Scheduled and p.r.n. breathing treatments Wean supplemental oxygen as needed sepsis due to COPD vs diabetic foot infection> sepsis resolved meets sepsis criteria with leukocytosis, tachycardia, tachypnea- all resolved Blood cultures neg Atrial fibrillation with rapid ventricular response> resolved converted to sinus Continue metoprolol, amiodarone Hold Eliquis for possible surgical intervention seen by Cardiology HFrEF ECHO 03/16 with improvement of EF to 30% no acute exacerbation stop torsemide due to DECLAN IDDM with hyperglycemia ss, ada diet, lantus History of pericardial effusion Appears slightly reduced in size on recent echocardiogram KIMANI CPAP at bedtime mood disorder continue baseline medications dvt ppx - massiel Attending Dr. Dave code status -DNR/DNI Will need ongoing inpatient hospitalization for multiple acute medical issues requiring IV steroids, IV antibiotics, specialist evaluation and likely surgical intervention Quality Stroke Does the patient have a stroke diagnosis?: No VTE Prior VTE?: No VTE Risk Level:: Medical - moderate - high VTE Device Contraindication: N/A - Device Ordered VTE Drug Contraindication: N/A - Med Ordered
[2024-03-28] MEDS: Sodium Zirconium Cyclosilicate 5 GM POWD.PACK 15 GM PO (10:27)
[2024-03-28 10:37] LABS: ABG Base Excess -9.6 mmol/L; ABG HCO3 15 mmol/L (22-26); ABG pCO2 32 mmHg (32-45); ABG pH 7.28 (7.35-7.45); ABG pO2 85 mmHg (83-108)
[2024-03-28 10:41] LABS: Hematocrit 41.4 % (42.0-52.0); Hemoglobin 11.9 g/dl (14.0-18.0); Mean Corpuscular HGB Conc 28.7 g/dl (31.0-36.0); Mean Corpuscular Hemoglobin 22.4 pg (27.0-33.0); Mean Corpuscular Volume 77.8 fL (80.0-98.0); Mean Platelet Volume 10.4 fL (9.4-12.4); NRBC Pct Auto 3.2 /100WBC (0.0-0.2); Platelet Count 289 X10*3/uL (160-400); Red Blood Count 5.32 X10*6/uL (4.60-5.80); Red Cell Distribution Width 19.6 % (11.0-16.0); White Blood Count 15.8 X10*3/uL (4.8-10.8)
[2024-03-28 10:42] LABS: Ammonia 57 umol/L (13-55)
[2024-03-28 10:48] LABS: Glucose, Whole Blood 176 mg/dL (60-115)
[2024-03-28 10:51] LABS: Alanine Aminotransferase 935 U/L (0-40); Albumin Level 2.8 g/dL (3.5-5.0); Alkaline Phosphatase 196 U/L (39-117); Aspartate Amino Transferase 309 U/L (5-37); Bilirubin Direct 0.7 mg/dL (0.0-0.5); Total Protein 6.8 g/dL (6.5-8.0)
[2024-03-28 10:59] LABS: B Type Natriuretic Peptide 2959 pg/mL (<100)
--- NOTE | 2024-03-28 11:26 | P.PNNP_ITS ---
Subjective Subjective Date of Service: 03/28/24 Interval history: This is a 58-year-old male with a history of atrial fibrillation on Eliquis, ischemic cardiomyopathy status post AICD, coronary artery disease status post PCI, COPD, KIMANI on CPAP, HFrEF (30%) here for treatment of COPD exacerbation and of sepsis 2/2 diabetic foot infection, as well as afib with RVR. pt developed DECLAN on admission Cr 0.96, has been trending up, today up to 2.96 from 2.51 day prior (concurrent rise in BUN, now 113) hyponatermia worsening (129 today, 132 03/26) hyperkalemia of 6.1 today calcium low at 7.4 CO2 trending down acute hyperkalemia managed with lokelma pt being treated for diabetic foot infection with vancomycin pt has been hypotensive, SBPs in 80s- low 100s since admission (normally runs a 110s-130s outpatient) elevated platelets chronically since October 2022 at bedside today pt states he feels more short of breath today chest xray this a.m. was negative for infiltrate or effusion, low lung volumes trace ankle edema reports he is continues urinating comfortably every few hours using urinal, denies flank pain denies other concerns/new symptoms Physical Exam 2 Vital Signs: Vital Signs: Last Vital Signs Temp 97.0 F 03/28/24 10:51 Pulse 60 03/28/24 10:51 Resp 20 03/28/24 10:51 BP 95/61 03/28/24 10:51 Pulse Ox 95 03/28/24 10:51 O2 Del Method Room Air 03/28/24 10:51 O2 Flow Rate 2 03/23/24 19:54 BMI result Body Mass Index 28.3 Const: General: comfortable and no acute distress O rientation/consciousness: oriented to person, oriented to place and oriented to time Neck: Neck: Yes no JVD Resp: Effort & Inspection: able to speak in complete sentences A uscultation: crackles (crackles bilateral posterior lower lobes ) Cardio: Jugular venous distension: no JVD Rate: regular rate Rhythm: r egular rhythm Heart sounds: S1 normal heart sound present, S2 normal heart sound present and Murmur heart sound present GI: Palpation (GI): Soft to palpation Rectal Exam - Male: No tenderness : General: Yes no CVA tenderness Back/Spine/Pelvis: Back: no CVA tenderness Skin: Rashes: no rashes Neuro: General: oriented to person, oriented to place and oriented to time Extrem: General: Yes normal to inspection and Yes edema (trace BLE edema) Objective Data Labs 03/28/24 10:23 03/28/24 05:53 Labs: Laboratory Results - last 24 hr 03/27/24 03/27/24 03/27/24 15:54 20:10 21:04 WBC RBC Hgb Hct MCV MCH MCHC RDW Plt Count MPV Absolute Nucleated RBC Nucleated RBC % (auto) O2 Saturation ABG pH at Pt Temp ABG pCO2 at Pt Temp ABG pO2 at Pt Temp ABG HCO3 ABG Base Excess (Actual) Sodium Potassium Chloride Carbon Dioxide Anion Gap BUN Creatinine Estim Creat Clear Calc Estimated GFR POC Glucose 200 H 204 H Random Glucose Calcium Total Bilirubin Direct Bilirubin AST ALT Alkaline Phosphatase Ammonia B-Natriuretic Peptide Total Protein Albumin Random Vancomycin 22.6 H 03/28/24 03/28/24 03/28/24 05:53 06:52 10:23 WBC 15.8 H RBC 5.32 Hgb 11.9 L Hct 41.4 L MCV 77.8 L MCH 22.4 L MCHC 28.7 L RDW 19.6 H Plt Count 289 D MPV 10.4 Absolute Nucleated RBC 0.510 H Nucleated RBC % (auto) 3.2 H O2 Saturation ABG pH at Pt Temp ABG pCO2 at Pt Temp ABG pO2 at Pt Temp ABG HCO3 ABG Base Excess (Actual) Sodium 129 L Potassium 6.1 H* Chloride 99 Carbon Dioxide 13 L Anion Gap 23 H BUN 113 H Creatinine 2.96 H Estim Creat Clear Calc 30.7 Estimated GFR 22 POC Glucose 153 H Random Glucose 151 H Calcium 7.4 L D Total Bilirubin 1.0 Direct Bilirubin 0.7 H AST 309 H ALT 935 H Alkaline Phosphatase 196 H Ammonia 57 H B-Natriuretic Peptide 2959 H Total Protein 6.8 Albumin 2.8 L Random Vancomycin 03/28/24 03/28/24 10:27 10:42 WBC RBC Hgb Hct MCV MCH MCHC RDW Plt Count MPV Absolute Nucleated RBC Nucleated RBC % (auto) O2 Saturation 94.0 ABG pH at Pt Temp 7.28 L ABG pCO2 at Pt Temp 32 ABG pO2 at Pt Temp 85 ABG HCO3 15 L ABG Base Excess (Actual) -9.6 Sodium Potassium Chloride Carbon Dioxide Anion Gap BUN Creatinine Estim Creat Clear Calc Estimated GFR POC Glucose 176 H Random Glucose Calcium Total Bilirubin Direct Bilirubin AST ALT Alkaline Phosphatase Ammonia B-Natriuretic Peptide Total Protein Albumin Random Vancomycin Microbiology Microbiology Results: Microbiology 03/26/24 22:43 Blood - Venous Blood Culture - Preliminary No growth after 24 hours. 03/26/24 22:43 Blood - Venous Blood Culture - Preliminary No growth after 24 hours. 03/23/24 12:31 Blood - Venous Blood Culture - Preliminary No growth after 48 hours. 03/23/24 12:28 Blood - Venous Blood Culture - Preliminary No growth after 48 hours. Procedures Date of Service Date of Service: 03/28/24 Assessment & Plan Assessment and plan (1) Hyperkalemia: Status: Acute (2) 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: Status: Acute (3) DECLAN (acute kidney injury): Status: Acute Plan 58 y/o male who has developed DECLAN likely secondary to tubular injury due to vancomycin and or hypotension; may also have pre-renal injury related to hypoperfusion with low blood pressures since admission renal US on 03/27 without evidence of obstruction will check urine creatinine, sodium, protein and UA would recommend continuing to hold torsemide given low blood pressures hyperkalemia this a.m., recommend continuing lokelma PRN for elevated potassium management, repeat potassium levels ordered hyponatremia due to decreased free water clearance secondary to DECLAN corrected calcium is normal No indication for dialysis at this time Discussed with Dr Olson. Time Spent With Patient Time: Total time managing care of this patient today ____ minutes. Progress Note: Quality Stroke Does the patient have a stroke diagnosis?: No
[2024-03-28 12:20] LABS: Appearance Urine Cloudy; Color Urine Dark Yellow; Glucose Urine UA Negative (Negative); Leukocyte Esterase Urine Negative (Negative); Nitrite Urine Negative (Negative); UMIC TRIGGER UA YES; Urine Blood Negative (Negative); Urine Ketones Trace mg/dL (Negative); Urine Protein 30 (1+) mg/dL (Neg-Trace)
[2024-03-28 12:42] LABS: Bacteria Urine None Seen (None Seen); Hyaline Casts Urine >20 /LPF (0-2); RBC Urine 0-2 /HPF (0-2); WBC Urine 0-5 /HPF (0-5)
[2024-03-28] MEDS: Furosemide 40 MG/4 ML VIAL IVPUSH ×2 (12:54→17:16)
[2024-03-28] MEDS: Midodrine HCl 2.5 MG TABLET PO ×3 (12:57→20:50)
[2024-03-28 13:38] LABS: ABG Refer to POC result
[2024-03-28 15:26] LABS: Glucose, Whole Blood 180 mg/dL (60-115)
[2024-03-28 15:39] LABS: Prothrombin Time 34.5 SEC (10.9-12.4)
[2024-03-28 15:53] LABS: Anion Gap 21 (12-20); Blood Urea Nitrogen 119 mg/dL (9-16); Calcium 6.8 mg/dL (8.4-10.2); Carbon Dioxide 19 mmol/L (22-29); Chloride 97 mmol/L (96-108); Creatinine Clr Calc Pharmacy 29.4; Estimated Glomerular Filt Rate 21; Glucose Random 157 mg/dL (60-115); Potassium 5.1 mmol/L (3.3-5.1); Sodium 132 mmol/L (135-145)
[2024-03-28] MEDS: Acetaminophen 325 MG TABLET 650 MG PO (17:14)
[2024-03-28] MEDS: 0.9 % Sodium Chloride Flush 3 ML SYRINGE IVFLUSH ×2 (17:16→20:50)
[2024-03-28] MEDS: Sodium Bicarbonate 650 MG TABLET PO ×2 (17:16→20:50)
[2024-03-28] MEDS: Sennosides 8.6 MG TABLET 17.2 MG PO (20:50)
[2024-03-28] MEDS: Melatonin 3 MG TABLET PO (20:50)
[2024-03-28 21:04] LABS: Glucose, Whole Blood 87 mg/dL (60-115)
[2024-03-28] MEDS: HYDROmorphone HCl 1 MG/ML SYRINGE IVPUSH (22:17)
[2024-03-28 23:37] LABS: Glucose, Whole Blood 108 mg/dL (60-115)
[2024-03-28] MEDS: Naloxone HCl 0.4 MG/ML VIAL IVPUSH (23:37)
[2024-03-29] VITALS (18 sets, daily range): BP systolic 86–127; BP diastolic 52–76; PULSE 60–62; RESP 12–20; TEMP 34.8–36.9; O2SAT 90–100; BMI 28.9
--- NOTE | 2024-03-29 00:05 | PM.EVENT ---
Event Note Date of Service: 03/29/24 Event Note: Rapid response team activated as the patient became hypoactive, barely responsive and low BP 75/53. Around 9:30 PM I was contacted by nursing requesting pain medications for Mr. Cruz as he was moaning due to pain. He was placed on supplemental oxygen 2L/min. Dilaudid IV was given. Cardiopulmonary exam is unremarkable. Blood glucose stat was checked, 108. Narcan 0.4 mg IV given which was effective. Now, patient is awake and alert. He actually became very aggressive and verbally abusive toward staff as he did not want to get assistance to transport him to the bathroom. He suddenly stood up and went to the bathroom to use the toilet refusing appropriate assistance from nursing. Patient's hypotension is likely secondary to dilaudid and not sepsis. He received midodrine and will give a bolus of NS 250 ml over an hour to support his BP. Will also obtain basic blood workup to assess for other abnormalites. 1:33 AM - Contacted to notify patient fell as he missed the toilet seat hitting the back of his head upon falling. Fall was witnessed. On evaluation pt was lying in bed in no distress. Head exam showed no wounds or bumps. He is still alert and oriented X3. He said he missed the toilet seat upon sitting. He was advised to avoid getting out of bed without assistance and told him the consequences of doing so such as traumatic falls resulting in disability or . Head + c-spine CT scans ordered stat. 1:35 AM - Bicarb 10, per lab lactic acid needs to be recollected as the specimen hemolyzed. Will obtain VBG stat, last pH was 7.28. 2:12 AM - pH is 7.24. 2:26 AM - Lactic acid 2.4 likely due to hypoperfusion (low BP), no sepsis. 4:54 AM - Lactic acid has normalized and most recent BP is 94/57. Midodrine increased to 10 mg PO tid. Will avoid narcotics for now and treat pain only with Tylenol. Time Spent With Patient Time: Total time managing care of this patient today ____ minutes.
[2024-03-29] MEDS: 0.9 % Sodium Chloride 250 ML 999 ML IV (00:29)
--- NOTE | 2024-03-29 00:40 | PC.NURSE ---
2129 pt moaning c/o 8-04/06 pain to L foot, and requesting pain medication. MD notified with order for dilaudid 1mg IV. administered medication with stated relief. 2319 pt hypotensive 70's. pt lethargic, slow to respond to name. [employer] called. MD at bedside Narcan 0.4 mg IV given as ordered with good effect noted. pt responding to questions appropriately. Pt agitated, repeatedly stating he has to go to bathroom. Attempted to educate pt on danger of ambulating with low blood pressure, pt began yelling and swearing at staff and getting out of bed. ambulated to bathroom with walker and 2 staff. declined to allow staff to remain in bathroom, remained at doorway for safety measures. NS bolus of 250 ml administered, per md not to give the 1L bolus which was ordered.
[2024-03-29 00:47] LABS: Creatinine Urine 82.39 mg/dL; Sodium Urine Random < 20.0 mmol/L; Total Protein Urine Random 57 mg/dL (<12)
[2024-03-29 01:05] LABS: MANUAL DIFF FLAG NO
[2024-03-29 01:08] LABS: Basophils Percent Auto 0.2 % (0-2); Hematocrit 38.7 % (42.0-52.0); Hemoglobin 11.5 g/dl (14.0-18.0); Imm Gran Abs Auto 0.27 X10*3/uL (0.00-0.03); Imm Gran Pct Auto 1.5 % (0.0-0.4); Lymphocytes Absolute Auto 1.2 X10*3/uL (1.2-4.9); Lymphocytes Percent Auto 6.6 % (20-40); Mean Corpuscular HGB Conc 29.7 g/dl (31.0-36.0); Mean Corpuscular Hemoglobin 22.4 pg (27.0-33.0); Mean Corpuscular Volume 75.4 fL (80.0-98.0); Mean Platelet Volume 10.8 fL (9.4-12.4); Monocytes Absolute Auto 1.2 X10*3/uL (0.1-1.2); Monocytes Percent Auto 7.1 % (2-11); NRBC Pct Auto 5.8 /100WBC (0.0-0.2); Neutrophils Absolute Auto 14.9 x10*3/uL (2.0-8.3); Neutrophils Percent Auto 84.6 % (45-73); Platelet Count 289 X10*3/uL (160-400); Red Blood Count 5.13 X10*6/uL (4.60-5.80); White Blood Count 17.6 X10*3/uL (4.8-10.8)
[2024-03-29 01:39] LABS: Alanine Aminotransferase 754 U/L (0-40); Albumin Level 2.7 g/dL (3.5-5.0); Alkaline Phosphatase 193 U/L (39-117); Anion Gap 27 (12-20); Aspartate Amino Transferase 217 U/L (5-37); Bilirubin Total 0.9 mg/dL (0.0-1.0); Blood Urea Nitrogen 116 mg/dL (9-16); Calcium 6.5 mg/dL (8.4-10.2); Carbon Dioxide 10 mmol/L (22-29); Chloride 101 mmol/L (96-108); Creatinine Clr Calc Pharmacy 28.3; Estimated Glomerular Filt Rate 20; Glucose Random 101 mg/dL (60-115); Potassium 5.6 mmol/L (3.3-5.1); Sodium 132 mmol/L (135-145); Total Protein 6.3 g/dL (6.5-8.0)
[2024-03-29 02:15] LABS: Venous Blood Gas Refer to POC result
[2024-03-29 02:16] LABS: VBG Base Excess -10.8 mmol/L; VBG HCO3 15 mmol/L (22-26); VBG pCO2 34 mmHg; VBG pH 7.24 (7.32-7.43); VBG pO2 66 mmHg
[2024-03-29 02:29] LABS: Lactic Acid 2.4 mmol/L (0.5-2.0)
[2024-03-29 04:11] LABS: Reflex Lactate? Lactic Acid Added
[2024-03-29 05:10] LABS: ~Lactic Acid-LAB USE ONLY 1.2 mmol/L (0.5-2.0)
[2024-03-29] MEDS: Acetaminophen 325 MG TABLET 975 MG PO (05:35)
[2024-03-29] MEDS: Omeprazole 20 MG CAPSULE.DR PO (05:36)
[2024-03-29] MEDS: Midodrine HCl 10 MG TABLET PO ×2 (05:36→15:17)
[2024-03-29] MEDS: Clindamycin Phosphate/D5W 900 MG/50 ML PIGGYBACK 50 MG IV ×2 (06:33→19:38)
--- NOTE | 2024-03-29 07:00 | CA_ITS ---
Transthoracic Echocardiogram Patient (Last, First, Middle): Jr Cruz, Gender: Male Date of : 1965 Age: 58 Procedure Date: 03/29/2024 Procedure Type: Transthoracic Echocardiogram Location: ICU Height: 180.34 cm Weight: 93.9 kg BSA: 2.14 m2 Heart Rate: 60 bpm BP: 92 / 64 mmHg Category Specialist: Referring MD: Jaspreet Montoya MD Symptoms: reassess pericardial effusion. hypotension Study Quality: Adequate w contrast ECG Rhythm: Atrial Fibrillation Conclusions: - Normal left ventricular cavity size. There is normal left ventricular wall thickness. The left ventricular systolic function is severely decreased. The visually estimated ejection fraction is between 10-15%. - Moderately increased right ventricular cavity size. There is moderately decreased right ventricular systolic function. Findings Procedure Information Contrast agent, definity, is being given per protocol without apparent complications. Left Ventricle Normal left ventricular cavity size. There is normal left ventricular wall thickness. The left ventricular systolic function is severely decreased. The visually estimated ejection fraction is between 10-15%. There is severe global hypokinesis. Diastolic function is indeterminate on the basis of available data. Right Ventricle Moderately increased right ventricular cavity size. There is moderately decreased right ventricular systolic function. There is an ICD wire seen in the right ventricle. Tricuspid Valve Significantly elevated right atrial pressure. Moderate to severe pulmonary hypertension is present. Venous The inferior vena cava is dilated and does not collapse with inspiration. Pericardium/Pleural There is a small pericardial effusion. Prior Study Comparison Significant changes compared to prior study dated: 03/16/2024. EF 10 to 15%. Moderate RV dilation and dysfunction. Measurements Tricuspid Valve TR Pk Rashawn: 2.77 TR Pk Grad: 31.00 RA Press: 15.00 RVSP: 46.00 Updated in Other Vendor System with Status of Final Jaspreet Montoya MD electronically signed on 03/29/2024 11:35:44 AM with status of Final
--- NOTE | 2024-03-29 07:08 | PC.NURSE ---
pt repeatedly refused insertion of andrews catheter, aware.
[2024-03-29 07:26] LABS: Glucose, Whole Blood 84 mg/dL (60-115)
[2024-03-29] MEDS: Fluticasone/Vilanterol 100/25 BLST.W.DEV 1 PUFF INHALE (07:46)
[2024-03-29] MEDS: levalbuterol HCL 1.25 MG/3 ML VIAL.NEB INHALE (07:49)
[2024-03-29] MEDS: Sodium Zirconium Cyclosilicate 5 GM POWD.PACK PO (08:28)
[2024-03-29] MEDS: predniSONE 10 MG TABLET 30 MG PO (08:42)
[2024-03-29] MEDS: Thiamine HCL 100 MG TABLET PO (08:42)
[2024-03-29] MEDS: guaiFENesin LA 600 MG TAB.ER.12H PO (08:42)
[2024-03-29] MEDS: Sertraline HCL 25 MG TABLET PO (08:42)
[2024-03-29] MEDS: Amiodarone HCL 200 MG TABLET PO (08:42)
[2024-03-29] MEDS: 0.9 % Sodium Chloride Flush 3 ML SYRINGE IVFLUSH ×2 (08:43→17:04)
--- NOTE | 2024-03-29 09:07 | PM.PNNEP ---
Subjective Subjective Date of Service: 03/29/24 Interval history: This is a 58-year-old male with a history of atrial fibrillation on Eliquis, ischemic cardiomyopathy status post AICD, coronary artery disease status post PCI, COPD, KIMANI on CPAP, HFrEF (30%) here for treatment of COPD exacerbation and of sepsis 2/2 diabetic foot infection, as well as afib with RVR. pt developed DECLAN on admission Cr 0.96, has been trending up, today up to 2.96 from 2.51 day prior (concurrent rise in BUN, now 113) hyponatermia persisting (132 this a.m.) hyperkalemia of 5.6 corrected calcium of 7.5 acidosis worsening pt being treated for diabetic foot infection- switched to clindamycin due to worsening renal function with vancomycin pt's blood pressures have been low, receiving midodrine 10mg PO TID last night pt's pressures dropped to 74/53, seems to have been related to dilaudid, as pt's BP and mental status improved with narcan at bedside today pt is lethargic and nodding off he is answering questions intermittently, not able to state month, states year is 2020, then 2023, then 2020 he is moaning frequently, when asked to hold arm up for examination he is only able to hold up for a second or two he complains of shortness of breath he continues to complain of left leg pain he reports he is using the urinal and denies pain wtih urination, unclear how long since he has emptied his bladder and if he is oliguric Physical Exam Vital Signs: Vital Signs: Last Vital Signs Temp 97.0 F 03/29/24 07:14 Pulse 60 03/29/24 07:49 Resp 20 03/29/24 07:49 BP 92/64 03/29/24 07:14 Pulse Ox 97 03/29/24 07:14 O2 Del Method Nasal Cannula 03/29/24 07:14 O2 Flow Rate 2 03/29/24 07:14 BMI result Body Mass Index 28.9 Const: General: confusion and lethargic Orientation/consciousness: oriented to person, No oriented to time, confusion and lethargic Limitations: altered mental status Neck: Neck: Yes no JVD Resp: Auscultation: clear to auscultation bilaterally Cardio: Jugular venous distension: no JVD Rate: regular rate Rhythm: regular rhythm Heart sounds: S1 normal heart sound present, S2 normal heart sound present and Murmur heart sound present GI: Palpation (GI): Soft to palpation Rectal Exam - Male: No tenderness : General: Yes no CVA tenderness Back/Spine/Pelvis: Back: no CVA tenderness Skin: Rashes: no rashes Neuro: General: oriented to person, No oriented to time and confusion Extrem: General: Yes normal to inspection, No edema and No pedal edema Objective Data Labs 03/29/24 00:58 03/29/24 12:38 Labs: Laboratory Results - last 24 hr 03/28/24 03/28/24 03/28/24 10:23 10:27 10:42 WBC 15.8 H RBC 5.32 Hgb 11.9 L Hct 41.4 L MCV 77.8 L MCH 22.4 L MCHC 28.7 L RDW 19.6 H Plt Count 289 D MPV 10.4 Immature Gran % (Auto) Neut % (Auto) Lymph % (Auto) [place] % (Auto) Eos % (Auto) Baso % (Auto) Lymph # (Auto) [place] # (Auto) Eos # (Auto) Baso # (Auto) Abs Immat Gran (auto) Absolute Neuts (auto) Absolute Nucleated RBC 0.510 H Nucleated RBC % (auto) 3.2 H PT INR O2 Saturation 94.0 ABG pH at Pt Temp 7.28 L ABG pCO2 at Pt Temp 32 ABG pO2 at Pt Temp 85 ABG HCO3 15 L ABG Base Excess (Actual) -9.6 VBG pH VBG pCO2 VBG pO2 VBG HCO3 VBG O2 Saturation VBG Base Excess Sodium Potassium Chloride Carbon Dioxide Anion Gap BUN Creatinine Estim Creat Clear Calc Estimated GFR POC Glucose 176 H Random Glucose Lactic Acid Lactic Acid F/U @ 2Hr Calcium Total Bilirubin 1.0 Direct Bilirubin 0.7 H AST 309 H ALT 935 H Alkaline Phosphatase 196 H Ammonia 57 H B-Natriuretic Peptide 2959 H Total Protein 6.8 Albumin 2.8 L Urine Color Urine Appearance Urine pH Ur Specific [place] Urine Protein Urine Glucose (UA) Urine Ketones Urine Blood Urine Nitrite Ur Leukocyte Esterase Urine RBC Urine WBC Ur Squamous Epith Cells Urine Bacteria Hyaline Casts U Random Total Protein Ur Random Sodium Urine Creatinine 03/28/24 03/28/24 03/28/24 11:15 15:01 15:22 WBC RBC Hgb Hct MCV MCH MCHC RDW Plt Count MPV Immature Gran % (Auto) Neut % (Auto) Lymph % (Auto) [place] % (Auto) Eos % (Auto) Baso % (Auto) Lymph # (Auto) [place] # (Auto) Eos # (Auto) Baso # (Auto) Abs Immat Gran (auto) Absolute Neuts (auto) Absolute Nucleated RBC Nucleated RBC % (auto) PT 34.5 H D INR 3.0 H O2 Saturation ABG pH at Pt Temp ABG pCO2 at Pt Temp ABG pO2 at Pt Temp ABG HCO3 ABG Base Excess (Actual) VBG pH VBG pCO2 VBG pO2 VBG HCO3 VBG O2 Saturation VBG Base Excess Sodium 132 L Potassium 5.1 Chloride 97 Carbon Dioxide 19 L Anion Gap 21 H BUN 119 H Creatinine 3.09 H Estim Creat Clear Calc 29.4 Estimated GFR 21 POC Glucose 180 H Random Glucose 157 H Lactic Acid Lactic Acid F/U @ 2Hr Calcium 6.8 L D Total Bilirubin Direct Bilirubin AST ALT Alkaline Phosphatase Ammonia B-Natriuretic Peptide Total Protein Albumin Urine Color Dark Yellow Urine Appearance Cloudy Urine pH 5.0 Ur Specific [place] 1.020 Urine Protein 30 (1+) H Urine Glucose (UA) Negative Urine Ketones Trace Urine Blood Negative Urine Nitrite Negative Ur Leukocyte Esterase Negative Urine RBC 0-2 Urine WBC 0-5 Ur Squamous Epith Cells 6-10 Urine Bacteria None Seen Hyaline Casts >20 U Random Total Protein 57 H Ur Random Sodium < 20.0 Urine Creatinine 82.39 03/28/24 03/28/24 03/29/24 21:00 23:33 00:58 WBC 17.6 H RBC 5.13 Hgb 11.5 L Hct 38.7 L MCV 75.4 L MCH 22.4 L MCHC 29.7 L RDW 19.0 H Plt Count 289 MPV 10.8 Immature Gran % (Auto) 1.5 H Neut % (Auto) 84.6 H Lymph % (Auto) 6.6 L Daniels % (Auto) 7.1 Eos % (Auto) 0.0 Baso % (Auto) 0.2 Lymph # (Auto) 1.2 [place] # (Auto) 1.2 Eos # (Auto) 0.0 Baso # (Auto) 0.0 Abs Immat Gran (auto) 0.27 H Absolute Neuts (auto) 14.9 H Absolute Nucleated RBC 1.020 H Nucleated RBC % (auto) 5.8 H PT INR O2 Saturation ABG pH at Pt Temp ABG pCO2 at Pt Temp ABG pO2 at Pt Temp ABG HCO3 ABG Base Excess (Actual) VBG pH VBG pCO2 VBG pO2 VBG HCO3 VBG O2 Saturation VBG Base Excess Sodium 132 L Potassium 5.6 H Chloride 101 Carbon Dioxide 10 L* D Anion Gap 27 H BUN 116 H Creatinine 3.21 H Estim Creat Clear Calc 28.3 Estimated GFR 20 POC Glucose 87 108 Random Glucose 101 Lactic Acid Lactic Acid F/U @ 2Hr Calcium 6.5 L Total Bilirubin 0.9 Direct Bilirubin AST 217 H ALT 754 H Alkaline Phosphatase 193 H Ammonia B-Natriuretic Peptide Total Protein 6.3 L Albumin 2.7 L Urine Color Urine Appearance Urine pH Ur Specific [place] Urine Protein Urine Glucose (UA) Urine Ketones Urine Blood Urine Nitrite Ur Leukocyte Esterase Urine RBC Urine WBC Ur Squamous Epith Cells Urine Bacteria Hyaline Casts U Random Total Protein Ur Random Sodium Urine Creatinine 03/29/24 03/29/24 03/29/24 02:07 02:12 04:54 WBC RBC Hgb Hct MCV MCH MCHC RDW Plt Count MPV Immature Gran % (Auto) Neut % (Auto) Lymph % (Auto) [place] % (Auto) Eos % (Auto) Baso % (Auto) Lymph # (Auto) [place] # (Auto) Eos # (Auto) Baso # (Auto) Abs Immat Gran (auto) Absolute Neuts (auto) Absolute Nucleated RBC Nucleated RBC % (auto) PT INR O2 Saturation ABG pH at Pt Temp ABG pCO2 at Pt Temp ABG pO2 at Pt Temp ABG HCO3 ABG Base Excess (Actual) VBG pH 7.24 L VBG pCO2 34 VBG pO2 66 VBG HCO3 15 L VBG O2 Saturation 86.0 VBG Base Excess -10.8 Sodium Potassium Chloride Carbon Dioxide Anion Gap BUN Creatinine Estim Creat Clear Calc Estimated GFR POC Glucose Random Glucose Lactic Acid 2.4 H* Lactic Acid F/U @ 2Hr 1.2 Calcium Total Bilirubin Direct Bilirubin AST ALT Alkaline Phosphatase Ammonia B-Natriuretic Peptide Total Protein Albumin Urine Color Urine Appearance Urine pH Ur Specific [place] Urine Protein Urine Glucose (UA) Urine Ketones Urine Blood Urine Nitrite Ur Leukocyte Esterase Urine RBC Urine WBC Ur Squamous Epith Cells Urine Bacteria Hyaline Casts U Random Total Protein Ur Random Sodium Urine Creatinine 03/29/24 07:20 WBC RBC Hgb Hct MCV MCH MCHC RDW Plt Count MPV Immature Gran % (Auto) Neut % (Auto) Lymph % (Auto) [place] % (Auto) Eos % (Auto) Baso % (Auto) Lymph # (Auto) [place] # (Auto) Eos # (Auto) Baso # (Auto) Abs Immat Gran (auto) Absolute Neuts (auto) Absolute Nucleated RBC Nucleated RBC % (auto) PT INR O2 Saturation ABG pH at Pt Temp ABG pCO2 at Pt Temp ABG pO2 at Pt Temp ABG HCO3 ABG Base Excess (Actual) VBG pH VBG pCO2 VBG pO2 VBG HCO3 VBG O2 Saturation VBG Base Excess Sodium Potassium Chloride Carbon Dioxide Anion Gap BUN Creatinine Estim Creat Clear Calc Estimated GFR POC Glucose 84 Random Glucose Lactic Acid Lactic Acid F/U @ 2Hr Calcium Total Bilirubin Direct Bilirubin AST ALT Alkaline Phosphatase Ammonia B-Natriuretic Peptide Total Protein Albumin Urine Color Urine Appearance Urine pH Ur Specific [place] Urine Protein Urine Glucose (UA) Urine Ketones Urine Blood Urine Nitrite Ur Leukocyte Esterase Urine RBC Urine WBC Ur Squamous Epith Cells Urine Bacteria Hyaline Casts U Random Total Protein Ur Random Sodium Urine Creatinine Microbiology Microbiology Results: Microbiology 03/26/24 22:43 Blood - Venous Blood Culture - Preliminary No growth after 48 hours. 03/26/24 22:43 Blood - Venous Blood Culture - Preliminary No growth after 48 hours. 03/23/24 12:31 Blood - Venous Blood Culture - Final No growth after 5 days. 03/23/24 12:28 Blood - Venous Blood Culture - Final No growth after 5 days. 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 pt appears uremic, confusion and lethargy renal function is worsening, acidosis has worsened overnight pt needs urgent dialysis for uremia discussed with patient and he is agreebable at bedside; though given his confusion, also discussed and obtained consent for dialysis via telephone with pt's healthcare proxy, Chitra Espino ([phone]). Discussed with Dr Olson. Time Spent With Patient Time: Total time managing care of this patient today ____ minutes. Progress Note: Quality Stroke Does the patient have a stroke diagnosis?: No
[2024-03-29] MEDS: Sodium Bicarbonate 650 MG TABLET 1300 MG PO (09:09)
[2024-03-29] MEDS: Albumin Human 25 % 100 ML IV ×5 (09:09→19:36)
--- NOTE | 2024-03-29 10:12 | MHC.CM.PN ---
Patient has been transferred to ICU.CM will follow.
--- NOTE | 2024-03-29 10:28 | P.CONCA_ITS ---
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 Diverticulosis Tubular adenoma of colon (~2018) History of COVID-19 Nicotine dependence, cigarettes, uncomplicated Hypertensive retinopathy Microhematuria ICD (implantable cardioverter-defibrillator) in place COPD (chronic obstructive pulmonary disease) KIMANI (obstructive sleep apnea) Sleep apnea CAD (coronary artery disease) Paroxysmal atrial fibrillation (~2017) Family History Family History Father Atherosclerosis Mother Cerebral aneurysm Maternal Grandmother Unknown family medical history Mother Cerebral hemorrhage Father Coronary artery disease Surgical History Surgical History History of amputation of left great toe History of cardiac cath History of ankle surgery History of implantable cardiac defibrillator (ICD) History of colonoscopy History of heart artery stent History of cardiac radiofrequency ablation History of cardioversion History of esophagogastroduodenoscopy History of umbilical hernia History of inguinal hernia Social History Social History Household Members: None Housing: House Are you a primary coronary care unit nurse to a significant other at home: No Do you presently have visiting nurse or other home services: Yes Alcohol intake: former Comment: sitter at bedside Patient Tobacco Use Status: Current everyday Tobacco user Tobacco use type: Cigarette Cigarette Packs Per Day: 1 Years Smoked: (current smoker - onset 14yo, 1ppd x 43yrs, 40pyh) Smoked in Last 30 Days: Yes e-Cigarette/Vaping Use: Never Used Second Hand Smoke Exposure: Yes Use of substances other than those prescribed or required for medical reasons: No Currently Displaying Signs/Symptoms of Drug Intoxication Withdrawal: No Any prior treatment program specific to substance use: No Have you been hit, kicked, punched, or otherwise hurt by someone within the past year? If so, by whom?: No Do you feel safe in your current relationship?: Yes Is there a partner from a previous relationship who is making you feel unsafe now?: No Are you made to feel afraid or neglected: No Advance Directives: Yes Advance Directives on File: Yes Advance Directives Date on File: 07/09/21 Do you have a plan to hurt others: No Plan service: No Current occupational status: unemployed and disabled Current occupation: rt handed Cognitive needs: No Hearing needs: No Vision needs: Yes Meds Allergies Allergy/AdvReac Type Severity Reaction Status Date / Time No Known Allergies Allergy Verified 03/23/24 11:55 [No Known Allergies*] Active Medications: Current Medications Acetaminophen (Acetaminophen 325 Mg Tablet) 975 mg PO Q6H PRN PRN Reason: discomfort Last Admin: 03/29/24 05:35 Dose: 975 mg Albuterol Sulfate (Albuterol Sulfate (0.083%) 2.5 Mg/3 Ml Vial.Neb) 2.5 mg INHALE RQ6H PRN PRN Reason: Shortness Of Breath Or Wheezing Amiodarone HCl (Amiodarone Hcl 200 Mg Tablet) 200 mg PO DAILY [facility] Last Admin: 03/29/24 08:42 Dose: 200 mg Glucose (Glucose Gel 15 Gm Gel..Gram.) 15 gm PO Q15M PRN; Protocol PRN Reason: per Hypoglycemia Standing Ord. Dextrose (D10) 250 mls @ 750 mls/hr IV Q15M PRN; Protocol PRN Reason: per Hypoglycemia Standing Ord. Clindamycin Phosphate (Cleocin) 900 mg in 50 mls @ 50 mls/hr IV Q8H [facility] Last Infusion: 03/29/24 09:08 Dose: Infused Albumin Human (Kedbumin 25 %) 100 mls @ 100 mls/hr IV Q6H [facility] Stop: 03/30/24 03:14 Last Admin: 03/29/24 09:09 Dose: 100 mls/hr Phytonadione 5 mg/ Sodium (Chloride) 50.5 mls @ 50.5 mls/hr IV ONCE ONE Stop: 03/29/24 10:43 Insulin Glargine (Insulin Glargine,Hum.Rec.Anlog 100 Unit/Ml 10 Ml Vial) 15 unit SUBCUT BEDTIME [facility] Last Admin: 03/28/24 21:37 Dose: Not Given Insulin Human Lispro (Insulin Lispro 100 Unit/Ml 3 Ml Vial) 0 unit SUBCUT QIDACHS [facility]; Protocol Last Admin: 03/29/24 09:02 Dose: Not Given Midodrine (Midodrine Hcl 10 Mg Tablet) 10 mg PO TID [facility] Last Admin: 03/29/24 05:36 Dose: 10 mg Omeprazole (Omeprazole 20 Mg Capsule.Dr) 20 mg PO DAILY@0630 [facility] Last Admin: 03/29/24 05:36 Dose: 20 mg Sodium Chloride (0.9 % Sodium Chloride Flush 3 Ml Syringe) 3 ml IVFLUSH QSHIFT [facility] Last Admin: 03/29/24 08:43 Dose: 3 ml Home Medications ?Medication ?Instructions ?Recorded ?Confirmed ?Last Taken ?Type acetaminophen 325 mg tablet 650 mg PO Q6H PRN Pain, Moderate 11/18/23 03/23/24 Unknown History colchicine 0.6 mg tablet 0.6 mg PO DAILY 11/18/23 03/23/24 11/16/23 History insulin glargine 100 unit/mL (3 17 unit subcut BEDTIME 11/18/23 03/23/24 03/22/24 History mL) subcutaneous pen (Lantus Solostar U-100 Insulin) insulin lispro 100 unit/mL 7 unit subcut TIDAC 11/18/23 03/23/24 03/22/24 History subcutaneous solution metoprolol succinate 100 mg 100 mg PO DAILY 12/20/23 03/23/24 03/22/24 History tablet,extended release 24 hr torsemide 20 mg tablet 20 mg PO Q48H 12/20/23 03/23/24 Unknown History albuterol sulfate 2.5 mg/3 mL 2.5 mg inhalation Q6H PRN 03/23/24 03/23/24 Unknown History (0.083 %) solution for nebulization Shortness Of Breath Or Wheezing apixaban 5 mg tablet (Eliquis) 5 mg PO BID 03/23/24 03/23/24 Unknown History empagliflozin 10 mg tablet 10 mg PO DAILY 03/23/24 03/23/24 03/22/24 History (Jardiance) fluticasone propionate 45 2 puff inhalation BID 03/23/24 03/23/24 Unknown History mcg-salmeterol 21 mcg/actuation HFA inhaler (Advair HFA) sennosides 8.6 mg tablet (senna) 17.2 mg PO BEDTIME 03/23/24 03/23/24 Unknown History Physical Exam 2 Vital Signs: Vital Signs: Last Vital Signs Temp 97.0 F 03/29/24 07:14 Pulse 60 03/29/24 07:49 Resp 20 03/29/24 07:49 BP 92/64 03/29/24 07:14 Pulse Ox 97 03/29/24 07:14 O2 Del Method Nasal Cannula 03/29/24 07:14 O2 Flow Rate 2 03/29/24 07:14 BMI result Body Mass Index 28.9 Objective Labs and Meds 03/29/24 00:58 03/29/24 00:58 Lab results: Laboratory Results - last 24 hr 03/28/24 03/28/24 03/28/24 10:23 10:27 10:42 WBC 15.8 H RBC 5.32 Hgb 11.9 L Hct 41.4 L MCV 77.8 L MCH 22.4 L MCHC 28.7 L RDW 19.6 H Plt Count 289 D MPV 10.4 Immature Gran % (Auto) Neut % (Auto) Lymph % (Auto) [place] % (Auto) Eos % (Auto) Baso % (Auto) Lymph # (Auto) [place] # (Auto) Eos # (Auto) Baso # (Auto) Abs Immat Gran (auto) Absolute Neuts (auto) Absolute Nucleated RBC 0.510 H Nucleated RBC % (auto) 3.2 H Smear Path Review SEE NOTE PT INR O2 Saturation 94.0 ABG pH at Pt Temp 7.28 L ABG pCO2 at Pt Temp 32 ABG pO2 at Pt Temp 85 ABG HCO3 15 L ABG Base Excess (Actual) -9.6 VBG pH VBG pCO2 VBG pO2 VBG HCO3 VBG O2 Saturation VBG Base Excess Sodium Potassium Chloride Carbon Dioxide Anion Gap BUN Creatinine Estim Creat Clear Calc Estimated GFR POC Glucose 176 H Random Glucose Lactic Acid Lactic Acid F/U @ 2Hr Calcium Total Bilirubin 1.0 Direct Bilirubin 0.7 H AST 309 H ALT 935 H Alkaline Phosphatase 196 H Ammonia 57 H B-Natriuretic Peptide 2959 H Total Protein 6.8 Albumin 2.8 L Urine Color Urine Appearance Urine pH Ur Specific [place] Urine Protein Urine Glucose (UA) Urine Ketones Urine Blood Urine Nitrite Ur Leukocyte Esterase Urine RBC Urine WBC Ur Squamous Epith Cells Urine Bacteria Hyaline Casts U Random Total Protein Ur Random Sodium Urine Creatinine 03/28/24 03/28/24 03/28/24 11:15 15:01 15:22 WBC RBC Hgb Hct MCV MCH MCHC RDW Plt Count MPV Immature Gran % (Auto) Neut % (Auto) Lymph % (Auto) [place] % (Auto) Eos % (Auto) Baso % (Auto) Lymph # (Auto) [place] # (Auto) Eos # (Auto) Baso # (Auto) Abs Immat Gran (auto) Absolute Neuts (auto) Absolute Nucleated RBC Nucleated RBC % (auto) Smear Path Review PT 34.5 H D INR 3.0 H O2 Saturation ABG pH at Pt Temp ABG pCO2 at Pt Temp ABG pO2 at Pt Temp ABG HCO3 ABG Base Excess (Actual) VBG pH VBG pCO2 VBG pO2 VBG HCO3 VBG O2 Saturation VBG Base Excess Sodium 132 L Potassium 5.1 Chloride 97 Carbon Dioxide 19 L Anion Gap 21 H BUN 119 H Creatinine 3.09 H Estim Creat Clear Calc 29.4 Estimated GFR 21 POC Glucose 180 H Random Glucose 157 H Lactic Acid Lactic Acid F/U @ 2Hr Calcium 6.8 L D Total Bilirubin Direct Bilirubin AST ALT Alkaline Phosphatase Ammonia B-Natriuretic Peptide Total Protein Albumin Urine Color Dark Yellow Urine Appearance Cloudy Urine pH 5.0 Ur Specific [place] 1.020 Urine Protein 30 (1+) H Urine Glucose (UA) Negative Urine Ketones Trace Urine Blood Negative Urine Nitrite Negative Ur Leukocyte Esterase Negative Urine RBC 0-2 Urine WBC 0-5 Ur Squamous Epith Cells 6-10 Urine Bacteria None Seen Hyaline Casts >20 U Random Total Protein 57 H Ur Random Sodium < 20.0 Urine Creatinine 82.39 03/28/24 03/28/24 03/29/24 21:00 23:33 00:58 WBC 17.6 H RBC 5.13 Hgb 11.5 L Hct 38.7 L MCV 75.4 L MCH 22.4 L MCHC 29.7 L RDW 19.0 H Plt Count 289 MPV 10.8 Immature Gran % (Auto) 1.5 H Neut % (Auto) 84.6 H Lymph % (Auto) 6.6 L [place] % (Auto) 7.1 Eos % (Auto) 0.0 Baso % (Auto) 0.2 Lymph # (Auto) 1.2 [place] # (Auto) 1.2 Eos # (Auto) 0.0 Baso # (Auto) 0.0 Abs Immat Gran (auto) 0.27 H Absolute Neuts (auto) 14.9 H Absolute Nucleated RBC 1.020 H Nucleated RBC % (auto) 5.8 H Smear Path Review PT INR O2 Saturation ABG pH at Pt Temp ABG pCO2 at Pt Temp ABG pO2 at Pt Temp ABG HCO3 ABG Base Excess (Actual) VBG pH VBG pCO2 VBG pO2 VBG HCO3 VBG O2 Saturation VBG Base Excess Sodium 132 L Potassium 5.6 H Chloride 101 Carbon Dioxide 10 L* D Anion Gap 27 H BUN 116 H Creatinine 3.21 H Estim Creat Clear Calc 28.3 Estimated GFR 20 POC Glucose 87 108 Random Glucose 101 Lactic Acid Lactic Acid F/U @ 2Hr Calcium 6.5 L Total Bilirubin 0.9 Direct Bilirubin AST 217 H ALT 754 H Alkaline Phosphatase 193 H Ammonia B-Natriuretic Peptide Total Protein 6.3 L Albumin 2.7 L Urine Color Urine Appearance Urine pH Ur Specific [place] Urine Protein Urine Glucose (UA) Urine Ketones Urine Blood Urine Nitrite Ur Leukocyte Esterase Urine RBC Urine WBC Ur Squamous Epith Cells Urine Bacteria Hyaline Casts U Random Total Protein Ur Random Sodium Urine Creatinine 03/29/24 03/29/24 03/29/24 02:07 02:12 04:54 WBC RBC Hgb Hct MCV MCH MCHC RDW Plt Count MPV Immature Gran % (Auto) Neut % (Auto) Lymph % (Auto) [place] % (Auto) Eos % (Auto) Baso % (Auto) Lymph # (Auto) [place] # (Auto) Eos # (Auto) Baso # (Auto) Abs Immat Gran (auto) Absolute Neuts (auto) Absolute Nucleated RBC Nucleated RBC % (auto) Smear Path Review PT INR O2 Saturation ABG pH at Pt Temp ABG pCO2 at Pt Temp ABG pO2 at Pt Temp ABG HCO3 ABG Base Excess (Actual) VBG pH 7.24 L VBG pCO2 34 VBG pO2 66 VBG HCO3 15 L VBG O2 Saturation 86.0 VBG Base Excess -10.8 Sodium Potassium Chloride Carbon Dioxide Anion Gap BUN Creatinine Estim Creat Clear Calc Estimated GFR POC Glucose Random Glucose Lactic Acid 2.4 H* Lactic Acid F/U @ 2Hr 1.2 Calcium Total Bilirubin Direct Bilirubin AST ALT Alkaline Phosphatase Ammonia B-Natriuretic Peptide Total Protein Albumin Urine Color Urine Appearance Urine pH Ur Specific [place] Urine Protein Urine Glucose (UA) Urine Ketones Urine Blood Urine Nitrite Ur Leukocyte Esterase Urine RBC Urine WBC Ur Squamous Epith Cells Urine Bacteria Hyaline Casts U Random Total Protein Ur Random Sodium Urine Creatinine 03/29/24 07:20 WBC RBC Hgb Hct MCV MCH MCHC RDW Plt Count MPV Immature Gran % (Auto) Neut % (Auto) Lymph % (Auto) [place] % (Auto) Eos % (Auto) Baso % (Auto) Lymph # (Auto) [place] # (Auto) Eos # (Auto) Baso # (Auto) Abs Immat Gran (auto) Absolute Neuts (auto) Absolute Nucleated RBC Nucleated RBC % (auto) Smear Path Review PT INR O2 Saturation ABG pH at Pt Temp ABG pCO2 at Pt Temp ABG pO2 at Pt Temp ABG HCO3 ABG Base Excess (Actual) VBG pH VBG pCO2 VBG pO2 VBG HCO3 VBG O2 Saturation VBG Base Excess Sodium Potassium Chloride Carbon Dioxide Anion Gap BUN Creatinine Estim Creat Clear Calc Estimated GFR POC Glucose 84 Random Glucose Lactic Acid Lactic Acid F/U @ 2Hr Calcium Total Bilirubin Direct Bilirubin AST ALT Alkaline Phosphatase Ammonia B-Natriuretic Peptide Total Protein Albumin Urine Color Urine Appearance Urine pH Ur Specific [place] Urine Protein Urine Glucose (UA) Urine Ketones Urine Blood Urine Nitrite Ur Leukocyte Esterase Urine RBC Urine WBC Ur Squamous Epith Cells Urine Bacteria Hyaline Casts U Random Total Protein Ur Random Sodium Urine Creatinine Imaging Radiologist's impression: Impressions Chest X-Ray 03/28/24 10:28 IMPRESSION: Findings as above. Electronically signed by: Ash Berg MD 03/28/2024 11:14 AM EDT Abdomen/Pelvis CT 03/28/24 19:24 IMPRESSION: 1. There is mild hepatomegaly without discrete mass or bile duct dilatation. 2. Incidental note made of cardiomegaly, small left pleural effusion, calcified pleural plaques, colonic diverticulosis without diverticulitis and degenerative changes in the spine. Fleischner guidelines were followed. Electronically signed by: Evgeny Lema MD 03/28/2024 09:[address] 03/29/24 01:53 IMPRESSION: CT head: No acute intracranial finding. CT cervical spine: No cervical spine fracture or traumatic malalignment identified. Electronically signed by: Ash Berg MD 03/29/2024 07:18 AM EDT RP Cervical Spine CT 03/29/24 02:05 IMPRESSION: CT head: No acute intracranial finding. CT cervical spine: No cervical spine fracture or traumatic malalignment identified. Electronically signed by: Ash Berg MD 03/29/2024 07:18 AM EDT RP Procedures Date of Service Date of Service: 03/29/24
--- NOTE | 2024-03-29 10:29 | P.PNCA_ITS ---
Subjective Subjective Date of Service: 03/29/24 Interval history: Seen examined at bedside. He was last seen on March [address] Pham. Complex issues and presented with acute kidney injury and left foot infection. Clinically has been worsening over the last day or 2. We were reconsulted today because of hypotension overnight requiring midodrine. He was also being given albumin but PICC line was infiltrated. He is agitated and appears very sick currently. Nephrology team was also at bedside and they plan was to start him on urgent dialysis. He has significant metabolic acidosis with bicarb of 10. Last arterial blood gas was pH 7.28 pCO2 32 and PO2 of 85 on March 28 10:00. He has significant leukocytosis with WBC count of 17.6, hemoglobin 11.5, neutrophil count 84.6%. He has been on IV clindamycin. Physical Exam Vital Signs: Last Vital Signs Temp 97.0 F 03/29/24 07:14 Pulse 60 03/29/24 07:49 Resp 20 03/29/24 07:49 BP 92/64 03/29/24 07:14 Pulse Ox 97 03/29/24 07:14 O2 Del Method Nasal Cannula 03/29/24 07:14 O2 Flow Rate 2 03/29/24 07:14 BMI result Body Mass Index 28.9 GENERAL APPEARANCE: Agitated and somewhat confused. Ill-appearing. NECK: No significant JVD. SKIN: no suspicious lesions, warm and dry. HEART: no murmurs, regular rate and rhythm. LUNGS: clear to auscultation anteriorly. ABDOMEN: soft, nontender. EXTREMITIES: Foot wound no obvious discharge. PERIPHERAL PULSES: equal. NEUROLOGIC: No gross deficits, somewhat confused. Answering questions appropriately but appears quite sick. Objective Labs and Meds 03/29/24 00:58 03/29/24 00:58 Lab results: Laboratory Results - last 24 hr 03/28/24 03/28/24 03/28/24 10:23 10:27 10:42 WBC 15.8 H RBC 5.32 Hgb 11.9 L Hct 41.4 L MCV 77.8 L MCH 22.4 L MCHC 28.7 L RDW 19.6 H Plt Count 289 D MPV 10.4 Immature Gran % (Auto) Neut % (Auto) Lymph % (Auto) [place] % (Auto) Eos % (Auto) Baso % (Auto) Lymph # (Auto) [place] # (Auto) Eos # (Auto) Baso # (Auto) Abs Immat Gran (auto) Absolute Neuts (auto) Absolute Nucleated RBC 0.510 H Nucleated RBC % (auto) 3.2 H Smear Path Review SEE NOTE PT INR O2 Saturation 94.0 ABG pH at Pt Temp 7.28 L ABG pCO2 at Pt Temp 32 ABG pO2 at Pt Temp 85 ABG HCO3 15 L ABG Base Excess (Actual) -9.6 VBG pH VBG pCO2 VBG pO2 VBG HCO3 VBG O2 Saturation VBG Base Excess Sodium Potassium Chloride Carbon Dioxide Anion Gap BUN Creatinine Estim Creat Clear Calc Estimated GFR POC Glucose 176 H Random Glucose Lactic Acid Lactic Acid F/U @ 2Hr Calcium Total Bilirubin 1.0 Direct Bilirubin 0.7 H AST 309 H ALT 935 H Alkaline Phosphatase 196 H Ammonia 57 H B-Natriuretic Peptide 2959 H Total Protein 6.8 Albumin 2.8 L Urine Color Urine Appearance Urine pH Ur Specific [place] Urine Protein Urine Glucose (UA) Urine Ketones Urine Blood Urine Nitrite Ur Leukocyte Esterase Urine RBC Urine WBC Ur Squamous Epith Cells Urine Bacteria Hyaline Casts U Random Total Protein Ur Random Sodium Urine Creatinine 03/28/24 03/28/24 03/28/24 11:15 15:01 15:22 WBC RBC Hgb Hct MCV MCH MCHC RDW Plt Count MPV Immature Gran % (Auto) Neut % (Auto) Lymph % (Auto) [place] % (Auto) Eos % (Auto) Baso % (Auto) Lymph # (Auto) [place] # (Auto) Eos # (Auto) Baso # (Auto) Abs Immat Gran (auto) Absolute Neuts (auto) Absolute Nucleated RBC Nucleated RBC % (auto) Smear Path Review PT 34.5 H D INR 3.0 H O2 Saturation ABG pH at Pt Temp ABG pCO2 at Pt Temp ABG pO2 at Pt Temp ABG HCO3 ABG Base Excess (Actual) VBG pH VBG pCO2 VBG pO2 VBG HCO3 VBG O2 Saturation VBG Base Excess Sodium 132 L Potassium 5.1 Chloride 97 Carbon Dioxide 19 L Anion Gap 21 H BUN 119 H Creatinine 3.09 H Estim Creat Clear Calc 29.4 Estimated GFR 21 POC Glucose 180 H Random Glucose 157 H Lactic Acid Lactic Acid F/U @ 2Hr Calcium 6.8 L D Total Bilirubin Direct Bilirubin AST ALT Alkaline Phosphatase Ammonia B-Natriuretic Peptide Total Protein Albumin Urine Color Dark Yellow Urine Appearance Cloudy Urine pH 5.0 Ur Specific [place] 1.020 Urine Protein 30 (1+) H Urine Glucose (UA) Negative Urine Ketones Trace Urine Blood Negative Urine Nitrite Negative Ur Leukocyte Esterase Negative Urine RBC 0-2 Urine WBC 0-5 Ur Squamous Epith Cells 6-10 Urine Bacteria None Seen Hyaline Casts >20 U Random Total Protein 57 H Ur Random Sodium < 20.0 Urine Creatinine 82.39 03/28/24 03/28/24 03/29/24 21:00 23:33 00:58 WBC 17.6 H RBC 5.13 Hgb 11.5 L Hct 38.7 L MCV 75.4 L MCH 22.4 L MCHC 29.7 L RDW 19.0 H Plt Count 289 MPV 10.8 Immature Gran % (Auto) 1.5 H Neut % (Auto) 84.6 H Lymph % (Auto) 6.6 L [place] % (Auto) 7.1 Eos % (Auto) 0.0 Baso % (Auto) 0.2 Lymph # (Auto) 1.2 [place] # (Auto) 1.2 Eos # (Auto) 0.0 Baso # (Auto) 0.0 Abs Immat Gran (auto) 0.27 H Absolute Neuts (auto) 14.9 H Absolute Nucleated RBC 1.020 H Nucleated RBC % (auto) 5.8 H Smear Path Review PT INR O2 Saturation ABG pH at Pt Temp ABG pCO2 at Pt Temp ABG pO2 at Pt Temp ABG HCO3 ABG Base Excess (Actual) VBG pH VBG pCO2 VBG pO2 VBG HCO3 VBG O2 Saturation VBG Base Excess Sodium 132 L Potassium 5.6 H Chloride 101 Carbon Dioxide 10 L* D Anion Gap 27 H BUN 116 H Creatinine 3.21 H Estim Creat Clear Calc 28.3 Estimated GFR 20 POC Glucose 87 108 Random Glucose 101 Lactic Acid Lactic Acid F/U @ 2Hr Calcium 6.5 L Total Bilirubin 0.9 Direct Bilirubin AST 217 H ALT 754 H Alkaline Phosphatase 193 H Ammonia B-Natriuretic Peptide Total Protein 6.3 L Albumin 2.7 L Urine Color Urine Appearance Urine pH Ur Specific [place] Urine Protein Urine Glucose (UA) Urine Ketones Urine Blood Urine Nitrite Ur Leukocyte Esterase Urine RBC Urine WBC Ur Squamous Epith Cells Urine Bacteria Hyaline Casts U Random Total Protein Ur Random Sodium Urine Creatinine 03/29/24 03/29/24 03/29/24 02:07 02:12 04:54 WBC RBC Hgb Hct MCV MCH MCHC RDW Plt Count MPV Immature Gran % (Auto) Neut % (Auto) Lymph % (Auto) [place] % (Auto) Eos % (Auto) Baso % (Auto) Lymph # (Auto) [place] # (Auto) Eos # (Auto) Baso # (Auto) Abs Immat Gran (auto) Absolute Neuts (auto) Absolute Nucleated RBC Nucleated RBC % (auto) Smear Path Review PT INR O2 Saturation ABG pH at Pt Temp ABG pCO2 at Pt Temp ABG pO2 at Pt Temp ABG HCO3 ABG Base Excess (Actual) VBG pH 7.24 L VBG pCO2 34 VBG pO2 66 VBG HCO3 15 L VBG O2 Saturation 86.0 VBG Base Excess -10.8 Sodium Potassium Chloride Carbon Dioxide Anion Gap BUN Creatinine Estim Creat Clear Calc Estimated GFR POC Glucose Random Glucose Lactic Acid 2.4 H* Lactic Acid F/U @ 2Hr 1.2 Calcium Total Bilirubin Direct Bilirubin AST ALT Alkaline Phosphatase Ammonia B-Natriuretic Peptide Total Protein Albumin Urine Color Urine Appearance Urine pH Ur Specific [place] Urine Protein Urine Glucose (UA) Urine Ketones Urine Blood Urine Nitrite Ur Leukocyte Esterase Urine RBC Urine WBC Ur Squamous Epith Cells Urine Bacteria Hyaline Casts U Random Total Protein Ur Random Sodium Urine Creatinine 03/29/24 07:20 WBC RBC Hgb Hct MCV MCH MCHC RDW Plt Count MPV Immature Gran % (Auto) Neut % (Auto) Lymph % (Auto) [place] % (Auto) Eos % (Auto) Baso % (Auto) Lymph # (Auto) [place] # (Auto) Eos # (Auto) Baso # (Auto) Abs Immat Gran (auto) Absolute Neuts (auto) Absolute Nucleated RBC Nucleated RBC % (auto) Smear Path Review PT INR O2 Saturation ABG pH at Pt Temp ABG pCO2 at Pt Temp ABG pO2 at Pt Temp ABG HCO3 ABG Base Excess (Actual) VBG pH VBG pCO2 VBG pO2 VBG HCO3 VBG O2 Saturation VBG Base Excess Sodium Potassium Chloride Carbon Dioxide Anion Gap BUN Creatinine Estim Creat Clear Calc Estimated GFR POC Glucose 84 Random Glucose Lactic Acid Lactic Acid F/U @ 2Hr Calcium Total Bilirubin Direct Bilirubin AST ALT Alkaline Phosphatase Ammonia B-Natriuretic Peptide Total Protein Albumin Urine Color Urine Appearance Urine pH Ur Specific [place] Urine Protein Urine Glucose (UA) Urine Ketones Urine Blood Urine Nitrite Ur Leukocyte Esterase Urine RBC Urine WBC Ur Squamous Epith Cells Urine Bacteria Hyaline Casts U Random Total Protein Ur Random Sodium Urine Creatinine Imaging Radiologist's impression: Impressions Chest X-Ray 03/28/24 10:28 IMPRESSION: Findings as above. Electronically signed by: Ash Berg MD 03/28/2024 11:14 AM EDT RP Abdomen/Pelvis CT 03/28/24 19:24 IMPRESSION: 1. There is mild hepatomegaly without discrete mass or bile duct dilatation. 2. Incidental note made of cardiomegaly, small left pleural effusion, calcified pleural plaques, colonic diverticulosis without diverticulitis and degenerative changes in the spine. Fleischner guidelines were followed. Electronically signed by: Evgeny Lema MD 03/28/2024 09:44 PM EDT RP Head CT 03/29/24 01:53 IMPRESSION: CT head: No acute intracranial finding. CT cervical spine: No cervical spine fracture or traumatic malalignment identified. Electronically signed by: Ash Berg MD 03/29/2024 07:18 AM EDT RP Cervical Spine CT 03/29/24 02:05 IMPRESSION: CT head: No acute intracranial finding. CT cervical spine: No cervical spine fracture or traumatic malalignment identified. Electronically signed by: Ash Berg MD 03/29/2024 07:18 AM EDT RP Progress Note: A&P Assessment and plan (1) Hypotension: Status: Acute (2) Altered mental status: Status: Acute (3) Metabolic acidosis: Status: Acute Plan [age] year gentleman with cardiomyopathy with EF 30% and small to moderate size pericardial effusion based on recent echocardiography, acute kidney injury, foot infection on clindamycin and overall worsening of clinical status over the last day or 2. It appears he was getting midodrine as of yesterday. He was also on metoprolol succinate 100 mg and amiodarone. Overnight he was given Dilaudid and subsequently was noticed to be unresponsive and required Narcan with improvement in neurological status and blood pressure. He was hypotensive before that. Since then he has been on midodrine 10 mg 3 times a day. He has significant metabolic acidosis with bicarb of 10 and acute kidney injury with high BUN more than 100 currently. Nephrology team plans to do hemodialysis on him. I think we do echocardiography to reassess the pericardial effusion to make sure that is not the underlying problem. If he has a large effusion or tamponade physiology then we need to drain that to help his hemodynamics. We will follow along with you. Quite sick with multiorgan issues currently. Thank you for allowing me to participate in the care of your patient. Please feel free to contact me if you have any questions. Time Spent With Patient Time: Total time managing care of this patient today ____ minutes. Progress Note: Quality Stroke Does the patient have a stroke diagnosis?: No Procedures Date of Service Date of Service: 03/29/24
[2024-03-29 11:26] LABS: Glucose, Whole Blood 104 mg/dL (60-115)
[2024-03-29 12:17] LABS: Alanine Aminotransferase 694 U/L (0-40); Albumin Level 2.7 g/dL (3.5-5.0); Alkaline Phosphatase 219 U/L (39-117); Anion Gap 23 (12-20); Aspartate Amino Transferase 231 U/L (5-37); Bilirubin Direct 0.7 mg/dL (0.0-0.5); Calcium 6.4 mg/dL (8.4-10.2); Carbon Dioxide 15 mmol/L (22-29); Chloride 99 mmol/L (96-108); Creatinine Clr Calc Pharmacy 26.5; Estimated Glomerular Filt Rate 18; Glucose Random 98 mg/dL (60-115); Potassium 5.4 mmol/L (3.3-5.1); Sodium 132 mmol/L (135-145); Total Protein 6.3 g/dL (6.5-8.0)
[2024-03-29 12:21] LABS: B Type Natriuretic Peptide 3332 pg/mL (<100)
[2024-03-29 12:23] LABS: Parathyroid Hormone Intact 496.6 pg/mL (8.7-77.1)
[2024-03-29 12:28] LABS: Blood Urea Nitrogen 124 mg/dL (9-16)
[2024-03-29 12:51] LABS: Venous Blood Gas Refer to POC result
[2024-03-29 12:51] LABS: VBG Base Excess -8.7 mmol/L; VBG HCO3 18 mmol/L (22-26); VBG pCO2 46 mmHg; VBG pH 7.21 (7.32-7.43); VBG pO2 43 mmHg
[2024-03-29] MEDS: Bumetanide 1 MG/4 ML VIAL 2 MG IVPUSH (13:29)
[2024-03-29 13:36] LABS: Alanine Aminotransferase 717 U/L (0-40); Albumin Level 2.9 g/dL (3.5-5.0); Alkaline Phosphatase 225 U/L (39-117); Anion Gap 21 (12-20); Aspartate Amino Transferase 243 U/L (5-37); Bilirubin Total 1.1 mg/dL (0.0-1.0); Blood Urea Nitrogen 123 mg/dL (9-16); Calcium 6.5 mg/dL (8.4-10.2); Carbon Dioxide 19 mmol/L (22-29); Chloride 97 mmol/L (96-108); Creatinine Clr Calc Pharmacy 25.6; Estimated Glomerular Filt Rate 17; Glucose Random 96 mg/dL (60-115); Magnesium 3.1 mg/dL (1.6-2.6); Phosphorus 11.8 mg/dL (2.7-4.5); Potassium 5.4 mmol/L (3.3-5.1); Sodium 132 mmol/L (135-145); Total Protein 6.5 g/dL (6.5-8.0)
[2024-03-29 13:38] LABS: Glucose, Whole Blood 95 mg/dL (60-115)
[2024-03-29] MEDS: Phytonadione (Vit K1) 5 MG in 0.9 % Sodium Chloride 50 ML 50.5 MG IV (14:01)
--- NOTE | 2024-03-29 15:03 | PM.PROC ---
Brief Operative Note Date of procedure: 03/29/24 Pre-op diagnosis: DECLAN Post-op diagnosis: same Procedure: Right IJ, 16 cm Trialysis catheter placed using US and Fluoro. Tip at cavoatrial junction. Ok for use. No immediate complications.
[2024-03-29] MEDS: MannitoL 12.5 GM/50 ML VIAL IV (15:25)
--- NOTE | 2024-03-29 15:59 | PM.CCPN ---
Subjective Subjective Date of Service: 03/29/24 Interval History: 58 year old gentleman with underlying severe CHF with EF ~15% s/p AICD placement, AFib, DM, COPD admitted on 03/23/2024 with dyspnea and diabetic foot infection with concern for osteomyelitis. Patient treated with empiric antibiotics and for COPD exacerbation with hospital course significant for progressive acute kidney injury with metabolic acidosis and congestive heart failure further complicated by hepatic congestion and encephalopathy today requiring transfer to the ICU for close monitoring. Critical Care Time (minutes): 60 Physical Exam Vital Signs: Vital Signs: Last Vital Signs Temp 98.5 F 03/29/24 12:00 Pulse 60 03/29/24 15:00 Resp 12 03/29/24 15:00 BP 103/64 03/29/24 15:17 Pulse Ox 100 03/29/24 15:00 O2 Del Method Nasal Cannula 03/29/24 15:00 O2 Flow Rate 2 03/29/24 15:00 BMI result Body Mass Index 28.9 Const: General: no acute distress, alert, awake and confusion Orientation/consciousness: confusion Eyes: Sclerae: sclerae normal EOM: EOMs intact bilaterally Neck: Neck: Yes no lymphadenopathy, Yes trachea midline and Yes supple Resp: Effort & Inspection: normal respiratory effort and no respiratory distress Auscultation: crackles bilateral Cardio: Rate: regular rate Rhythm: regular rhythm Heart sounds: no gallops, no murmurs and no rubs GI: Palpation (GI): Soft to palpation and Other GI palpation findings present ( Nontender) Auscultation: normal bowel sounds Neuro: General: confusion Extrem: General: No clubbing, No cyanosis and Yes edema (bilateral) Objective Data Labs 03/29/24 00:58 03/29/24 12:38 Labs: Laboratory Results - last 24 hr 03/28/24 03/28/24 03/28/24 10:23 11:15 15:01 WBC RBC Hgb Hct MCV MCH MCHC RDW Plt Count MPV Immature Gran % (Auto) Neut % (Auto) Lymph % (Auto) [place] % (Auto) Eos % (Auto) Baso % (Auto) Lymph # (Auto) [place] # (Auto) Eos # (Auto) Baso # (Auto) Abs Immat Gran (auto) Absolute Neuts (auto) Absolute Nucleated RBC Nucleated RBC % (auto) Smear Path Review SEE NOTE Hold Purple Top PT 34.5 H D INR 3.0 H VBG pH VBG pCO2 VBG pO2 VBG HCO3 VBG O2 Saturation VBG Base Excess Sodium Potassium Chloride Carbon Dioxide Anion Gap BUN Creatinine Estim Creat Clear Calc Estimated GFR POC Glucose Random Glucose Lactic Acid Lactic Acid F/U @ 2Hr Calcium Phosphorus Magnesium Total Bilirubin Direct Bilirubin AST ALT Alkaline Phosphatase B-Natriuretic Peptide Total Protein Albumin PTH Intact U Random Total Protein 57 H Ur Random Sodium < 20.0 Urine Creatinine 82.39 03/28/24 03/28/24 03/29/24 21:00 23:33 00:58 WBC 17.6 H RBC 5.13 Hgb 11.5 L Hct 38.7 L MCV 75.4 L MCH 22.4 L MCHC 29.7 L RDW 19.0 H Plt Count 289 MPV 10.8 Immature Gran % (Auto) 1.5 H Neut % (Auto) 84.6 H Lymph % (Auto) 6.6 L [place] % (Auto) 7.1 Eos % (Auto) 0.0 Baso % (Auto) 0.2 Lymph # (Auto) 1.2 [place] # (Auto) 1.2 Eos # (Auto) 0.0 Baso # (Auto) 0.0 Abs Immat Gran (auto) 0.27 H Absolute Neuts (auto) 14.9 H Absolute Nucleated RBC 1.020 H Nucleated RBC % (auto) 5.8 H Smear Path Review Hold Purple Top PT INR VBG pH VBG pCO2 VBG pO2 VBG HCO3 VBG O2 Saturation VBG Base Excess Sodium 132 L Potassium 5.6 H Chloride 101 Carbon Dioxide 10 L* D Anion Gap 27 H BUN 116 H Creatinine 3.21 H Estim Creat Clear Calc 28.3 Estimated GFR 20 POC Glucose 87 108 Random Glucose 101 Lactic Acid Lactic Acid F/U @ 2Hr Calcium 6.5 L Phosphorus Magnesium Total Bilirubin 0.9 Direct Bilirubin AST 217 H ALT 754 H Alkaline Phosphatase 193 H B-Natriuretic Peptide Total Protein 6.3 L Albumin 2.7 L PTH Intact U Random Total Protein Ur Random Sodium Urine Creatinine 03/29/24 03/29/24 03/29/24 02:07 02:12 04:54 WBC RBC Hgb Hct MCV MCH MCHC RDW Plt Count MPV Immature Gran % (Auto) Neut % (Auto) Lymph % (Auto) [place] % (Auto) Eos % (Auto) Baso % (Auto) Lymph # (Auto) [place] # (Auto) Eos # (Auto) Baso # (Auto) Abs Immat Gran (auto) Absolute Neuts (auto) Absolute Nucleated RBC Nucleated RBC % (auto) Smear Path Review Hold Purple Top PT INR VBG pH 7.24 L VBG pCO2 34 VBG pO2 66 VBG HCO3 15 L VBG O2 Saturation 86.0 VBG Base Excess -10.8 Sodium Potassium Chloride Carbon Dioxide Anion Gap BUN Creatinine Estim Creat Clear Calc Estimated GFR POC Glucose Random Glucose Lactic Acid 2.4 H* Lactic Acid F/U @ 2Hr 1.2 Calcium Phosphorus Magnesium Total Bilirubin Direct Bilirubin AST ALT Alkaline Phosphatase B-Natriuretic Peptide Total Protein Albumin PTH Intact U Random Total Protein Ur Random Sodium Urine Creatinine 03/29/24 03/29/24 03/29/24 07:20 11:24 11:54 WBC RBC Hgb Hct MCV MCH MCHC RDW Plt Count MPV Immature Gran % (Auto) Neut % (Auto) Lymph % (Auto) [place] % (Auto) Eos % (Auto) Baso % (Auto) Lymph # (Auto) [place] # (Auto) Eos # (Auto) Baso # (Auto) Abs Immat Gran (auto) Absolute Neuts (auto) Absolute Nucleated RBC Nucleated RBC % (auto) Smear Path Review Hold Purple Top PT INR VBG pH VBG pCO2 VBG pO2 VBG HCO3 VBG O2 Saturation VBG Base Excess Sodium 132 L Potassium 5.4 H Chloride 99 Carbon Dioxide 15 L Anion Gap 23 H BUN 124 H Creatinine 3.47 H Estim Creat Clear Calc 26.5 Estimated GFR 18 POC Glucose 84 104 Random Glucose 98 Lactic Acid Lactic Acid F/U @ 2Hr Calcium 6.4 L Phosphorus Magnesium Total Bilirubin 1.0 Direct Bilirubin 0.7 H AST 231 H ALT 694 H Alkaline Phosphatase 219 H B-Natriuretic Peptide 3332 H Total Protein 6.3 L Albumin 2.7 L PTH Intact 496.6 H U Random Total Protein Ur Random Sodium Urine Creatinine 03/29/24 03/29/24 03/29/24 11:58 12:38 12:44 WBC RBC Hgb Hct MCV MCH MCHC RDW Plt Count MPV Immature Gran % (Auto) Neut % (Auto) Lymph % (Auto) [place] % (Auto) Eos % (Auto) Baso % (Auto) Lymph # (Auto) [place] # (Auto) Eos # (Auto) Baso # (Auto) Abs Immat Gran (auto) Absolute Neuts (auto) Absolute Nucleated RBC Nucleated RBC % (auto) Smear Path Review Hold Purple Top SEE NOTE PT INR VBG pH 7.21 L VBG pCO2 46 VBG pO2 43 VBG HCO3 18 L VBG O2 Saturation 56.0 VBG Base Excess -8.7 Sodium 132 L Potassium 5.4 H Chloride 97 Carbon Dioxide 19 L Anion Gap 21 H BUN 123 H Creatinine 3.58 H Estim Creat Clear Calc 25.6 Estimated GFR 17 POC Glucose Random Glucose 96 Lactic Acid Lactic Acid F/U @ 2Hr Calcium 6.5 L Phosphorus 11.8 H Magnesium 3.1 H Total Bilirubin 1.1 H Direct Bilirubin AST 243 H ALT 717 H Alkaline Phosphatase 225 H B-Natriuretic Peptide Total Protein 6.5 Albumin 2.9 L PTH Intact U Random Total Protein Ur Random Sodium Urine Creatinine 03/29/24 13:34 WBC RBC Hgb Hct MCV MCH MCHC RDW Plt Count MPV Immature Gran % (Auto) Neut % (Auto) Lymph % (Auto) [place] % (Auto) Eos % (Auto) Baso % (Auto) Lymph # (Auto) [place] # (Auto) Eos # (Auto) Baso # (Auto) Abs Immat Gran (auto) Absolute Neuts (auto) Absolute Nucleated RBC Nucleated RBC % (auto) Smear Path Review Hold Purple Top PT INR VBG pH VBG pCO2 VBG pO2 VBG HCO3 VBG O2 Saturation VBG Base Excess Sodium Potassium Chloride Carbon Dioxide Anion Gap BUN Creatinine Estim Creat Clear Calc Estimated GFR POC Glucose 95 Random Glucose Lactic Acid Lactic Acid F/U @ 2Hr Calcium Phosphorus Magnesium Total Bilirubin Direct Bilirubin AST ALT Alkaline Phosphatase B-Natriuretic Peptide Total Protein Albumin PTH Intact U Random Total Protein Ur Random Sodium Urine Creatinine Microbiology Microbiology Results: Microbiology 03/26/24 22:43 Blood - Venous Blood Culture - Preliminary No growth after 48 hours. 03/26/24 22:43 Blood - Venous Blood Culture - Preliminary No growth after 48 hours. 03/23/24 12:31 Blood - Venous Blood Culture - Final No growth after 5 days. 03/23/24 12:28 Blood - Venous Blood Culture - Final No growth after 5 days. Progress Note: A&P Assessment and plan (1) Metabolic acidosis: Status: Acute (2) DECLAN (acute kidney injury): Status: Acute (3) Congestive heart failure: Status: Acute Plan Assessment: Plan: Neuro: metabolic encephalopathy likely secondary to uremia, expect to improve with hemodialysis. Cardiac: Acute on chronic congestive heart failure with worsening systolic function and poow forward flow. Cardiology service care appreciated. Pressor support as needed. If improves with hemodialysis, may be a candidate for advanced heart failure evluation. Pulmonary: Acute hypoxic respiratory failure secondary to pulmonary edema, expect to improve with ultrafiltration. Renal: Acute renal failure with metabolic acidosis and hyperkalemia. Nephrology service care appreciated. Starting on hemodialysis. Endo: No acute issues. GI: No acute issues. ID: Diabetic foot infection, continue broad spectrum antibiotics. Tagged white cell scan on hold secondary to acute decompensation. Heme/Onc: No acute issues. Psych: No acute issues. Miscellaneous: No acute issues. Prophylaxis: apixaban Diet: NPO Critical care time spent: 60 minutes Quality Stroke Does the patient have a stroke diagnosis?: No VTE Prior VTE?: No VTE Risk Level:: Medical - moderate - high VTE Device Contraindication: N/A - Device Ordered VTE Drug Contraindication: N/A - Med Ordered
--- NOTE | 2024-03-29 16:46 | HO.PM.IMPN ---
Subjective Subjective Date of Service: 03/29/24 Interval History: Being followed for diabetic foot wound, AFib COPD exacerbation. Events from last night noted patient received IV Dilaudid at 09:30 for pain, at 11:20 he became hypotensive with systolic BP in 70s lethargic slow to respond to name, Narcan 0.4 mg IV given with good affect later patient became agitated began yelling and swearing , treated with IV normal saline bolus, subsequently he ambulated to bathroom with walker, refuse assistance with staff, he missed the toilet seat upon sitting and fell down hitting the back of his head, CT scan was ordered that showed no acute abnormality lactic acid was elevated 2.4 treated with fluids and midodrine blood pressure improved . This morning patient noted to be confused unable to provide meaningful history, BP remains soft 93/60 Labs showed worsening creatinine 3.58, had low bicarb, anion gap metabolic acidosis Review of Systems Unable to obtain review of system due to mental status Physical Exam Vital Signs: Vital Signs: Last Vital Signs Temp 96.6 F L 03/29/24 16:00 Pulse 60 03/29/24 16:00 Resp 15 03/29/24 16:00 BP 127/76 03/29/24 16:00 Pulse Ox 95 03/29/24 16:00 O2 Del Method Room Air 03/29/24 16:00 O2 Flow Rate 2 03/29/24 15:00 BMI result Body Mass Index 28.9 Const: Other: General in no acute distress. Anicteric sclera Neck no JVD. CVS regular rate rhythm, Respiratory lungs clear to auscultation, no respiratory distress, no wheeze, no rhonchi. Gastrointestinal abdomen soft, non tender, bowel sounds audible, Extremities open wound left plantar surface of foot, no purulent drainage noted no surrounding erythema of fluctuation , no pedal pulses Neuro moving all 4 extremity, speech clear. Objective Data Active Medications Acetaminophen (Acetaminophen 325 Mg Tablet) 975 mg PO Q6H PRN PRN Reason: discomfort Last Admin: 03/29/24 05:35 Dose: 975 mg Documented By: ROLANDO Albuterol Sulfate (Albuterol Sulfate (0.083%) 2.5 Mg/3 Ml Vial.Neb) 2.5 mg INHALE RQ6H PRN PRN Reason: Shortness Of Breath Or Wheezing Amiodarone HCl (Amiodarone Hcl 200 Mg Tablet) 200 mg PO DAILY [facility] Last Admin: 03/29/24 08:42 Dose: 200 mg Documented By: MENDEL Glucose (Glucose Gel 15 Gm Gel..Gram.) 15 gm PO Q15M PRN; Protocol PRN Reason: per Hypoglycemia Standing Ord. Dextrose (D10) 250 mls @ 750 mls/hr IV Q15M PRN; Protocol PRN Reason: per Hypoglycemia Standing Ord. Clindamycin Phosphate (Cleocin) 900 mg in 50 mls @ 50 mls/hr IV Q8H [facility] Last Infusion: 03/29/24 09:08 Dose: Infused Documented By: MENDEL Albumin Human (Kedbumin 25 %) 100 mls @ 100 mls/hr IV Q6H [facility] Stop: 03/30/24 03:14 Last Admin: 03/29/24 15:16 Dose: 100 mls/hr Documented By: SHIN Albumin Human (Kedbumin 25 %) 100 mls @ 100 mls/hr IV Q6H [facility] Stop: 03/30/24 06:59 Last Infusion: 03/29/24 14:35 Dose: Infused Documented By: SHIN Dobutamine HCl/Dextrose (Dobutrex) 500 mg in 250 mls @ 0 mls/hr IVCONT .Q0M [facility]; Protocol Norepinephrine Bitartrate (Levophed) 8 mg in 250 mls @ 0 mls/hr IVCONT .Q0M [facility]; Protocol Insulin Glargine (Insulin Glargine,Hum.Rec.Anlog 100 Unit/Ml 10 Ml Vial) 15 unit SUBCUT BEDTIME [facility] Last Admin: 03/28/24 21:37 Dose: Not Given Documented By: ROLANDO Non-Admin Reason: Physician Held Med Insulin Human Lispro (Insulin Lispro 100 Unit/Ml 3 Ml Vial) 0 unit SUBCUT QIDACHS [facility]; Protocol Last Admin: 03/29/24 13:36 Dose: Not Given Documented By: SHIN Non-Admin Reason: No Insulin Coverage Midodrine (Midodrine Hcl 10 Mg Tablet) 10 mg PO TID [facility] Last Admin: 03/29/24 15:17 Dose: 10 mg Documented By: SHIN Omeprazole (Omeprazole 20 Mg Capsule.Dr) 20 mg PO DAILY@0630 [facility] Last Admin: 03/29/24 05:36 Dose: 20 mg Documented By: ROLANDO Sodium Chloride (0.9 % Sodium Chloride Flush 3 Ml Syringe) 3 ml IVFLUSH QSHIFT [facility] Last Admin: 03/29/24 08:43 Dose: 3 ml Documented By: MENDEL Labs 03/29/24 00:58 03/29/24 12:38 Labs: Laboratory Results - last 24 hr 03/28/24 03/28/24 03/28/24 10:23 11:15 21:00 MCV MCH MCHC RDW Plt Count MPV Immature Gran % (Auto) Neut % (Auto) Lymph % (Auto) [place] % (Auto) Eos % (Auto) Baso % (Auto) Lymph # (Auto) [place] # (Auto) Eos # (Auto) Baso # (Auto) Abs Immat Gran (auto) Absolute Neuts (auto) Absolute Nucleated RBC Nucleated RBC % (auto) Smear Path Review SEE NOTE Hold Purple Top VBG pH VBG pCO2 VBG pO2 VBG HCO3 VBG O2 Saturation VBG Base Excess Anion Gap Estim Creat Clear Calc Estimated GFR POC Glucose 87 Random Glucose Lactic Acid Lactic Acid F/U @ 2Hr Calcium Phosphorus Magnesium Total Bilirubin Direct Bilirubin AST ALT Alkaline Phosphatase B-Natriuretic Peptide Total Protein Albumin PTH Intact U Random Total Protein 57 H Ur Random Sodium < 20.0 Urine Creatinine 82.39 03/28/24 03/29/24 03/29/24 23:33 00:58 02:07 MCV 75.4 L MCH 22.4 L MCHC 29.7 L RDW 19.0 H Plt Count 289 MPV 10.8 Immature Gran % (Auto) 1.5 H Neut % (Auto) 84.6 H Lymph % (Auto) 6.6 L [place] % (Auto) 7.1 Eos % (Auto) 0.0 Baso % (Auto) 0.2 Lymph # (Auto) 1.2 [place] # (Auto) 1.2 Eos # (Auto) 0.0 Baso # (Auto) 0.0 Abs Immat Gran (auto) 0.27 H Absolute Neuts (auto) 14.9 H Absolute Nucleated RBC 1.020 H Nucleated RBC % (auto) 5.8 H Smear Path Review Hold Purple Top VBG pH VBG pCO2 VBG pO2 VBG HCO3 VBG O2 Saturation VBG Base Excess Anion Gap 27 H Estim Creat Clear Calc 28.3 Estimated GFR 20 POC Glucose 108 Random Glucose 101 Lactic Acid 2.4 H* Lactic Acid F/U @ 2Hr Calcium 6.5 L Phosphorus Magnesium Total Bilirubin 0.9 Direct Bilirubin AST 217 H ALT 754 H Alkaline Phosphatase 193 H B-Natriuretic Peptide Total Protein 6.3 L Albumin 2.7 L PTH Intact U Random Total Protein Ur Random Sodium Urine Creatinine 03/29/24 03/29/24 03/29/24 02:12 04:54 07:20 MCV MCH MCHC RDW Plt Count MPV Immature Gran % (Auto) Neut % (Auto) Lymph % (Auto) [place] % (Auto) Eos % (Auto) Baso % (Auto) Lymph # (Auto) [place] # (Auto) Eos # (Auto) Baso # (Auto) Abs Immat Gran (auto) Absolute Neuts (auto) Absolute Nucleated RBC Nucleated RBC % (auto) Smear Path Review Hold Purple Top VBG pH 7.24 L VBG pCO2 34 VBG pO2 66 VBG HCO3 15 L VBG O2 Saturation 86.0 VBG Base Excess -10.8 Anion Gap Estim Creat Clear Calc Estimated GFR POC Glucose 84 Random Glucose Lactic Acid Lactic Acid F/U @ 2Hr 1.2 Calcium Phosphorus Magnesium Total Bilirubin Direct Bilirubin AST ALT Alkaline Phosphatase B-Natriuretic Peptide Total Protein Albumin PTH Intact U Random Total Protein Ur Random Sodium Urine Creatinine 03/29/24 03/29/24 03/29/24 11:24 11:54 11:58 MCV MCH MCHC RDW Plt Count MPV Immature Gran % (Auto) Neut % (Auto) Lymph % (Auto) [place] % (Auto) Eos % (Auto) Baso % (Auto) Lymph # (Auto) [place] # (Auto) Eos # (Auto) Baso # (Auto) Abs Immat Gran (auto) Absolute Neuts (auto) Absolute Nucleated RBC Nucleated RBC % (auto) Smear Path Review Hold Purple Top SEE NOTE VBG pH VBG pCO2 VBG pO2 VBG HCO3 VBG O2 Saturation VBG Base Excess Anion Gap 23 H Estim Creat Clear Calc 26.5 Estimated GFR 18 POC Glucose 104 Random Glucose 98 Lactic Acid Lactic Acid F/U @ 2Hr Calcium 6.4 L Phosphorus Magnesium Total Bilirubin 1.0 Direct Bilirubin 0.7 H AST 231 H ALT 694 H Alkaline Phosphatase 219 H B-Natriuretic Peptide 3332 H Total Protein 6.3 L Albumin 2.7 L PTH Intact 496.6 H U Random Total Protein Ur Random Sodium Urine Creatinine 03/29/24 03/29/24 03/29/24 12:38 12:44 13:34 MCV MCH MCHC RDW Plt Count MPV Immature Gran % (Auto) Neut % (Auto) Lymph % (Auto) [place] % (Auto) Eos % (Auto) Baso % (Auto) Lymph # (Auto) [place] # (Auto) Eos # (Auto) Baso # (Auto) Abs Immat Gran (auto) Absolute Neuts (auto) Absolute Nucleated RBC Nucleated RBC % (auto) Smear Path Review Hold Purple Top VBG pH 7.21 L VBG pCO2 46 VBG pO2 43 VBG HCO3 18 L VBG O2 Saturation 56.0 VBG Base Excess -8.7 Anion Gap 21 H Estim Creat Clear Calc 25.6 Estimated GFR 17 POC Glucose 95 Random Glucose 96 Lactic Acid Lactic Acid F/U @ 2Hr Calcium 6.5 L Phosphorus 11.8 H Magnesium 3.1 H Total Bilirubin 1.1 H Direct Bilirubin AST 243 H ALT 717 H Alkaline Phosphatase 225 H B-Natriuretic Peptide Total Protein 6.5 Albumin 2.9 L PTH Intact U Random Total Protein Ur Random Sodium Urine Creatinine Microbiology Microbiology Results: Microbiology 03/26/24 22:43 Blood Culture - Preliminary Blood - Venous No growth after 48 hours. 03/26/24 22:43 Blood Culture - Preliminary Blood - Venous No growth after 48 hours. 03/23/24 12:31 Blood Culture - Final Blood - Venous No growth after 5 days. 03/23/24 12:28 Blood Culture - Final Blood - Venous No growth after 5 days. Assessment and Plan (1) Metabolic acidosis: Status: Acute (2) Hypotension: Status: Acute Plan 58-year-old male with a history of atrial fibrillation on Eliquis, ischemic cardiomyopathy status post AICD, EF 15%, coronary artery disease status post PCI, COPD, KIMANI on CPAP among others who presents to the emergency department with shortness of breath and redness of his foot found to have COPD exacerbation, diabetic foot ulcer, atrial fibrillation with rapid ventricular response, hyperglycemia Events from last night noted patient this morning found to be confused with significant electrolyte abnormality, hypotension ,DECLAN with metabolic acidosis likely due to diuresis and vanco toxicity, INR 3 Case discussed with Nephrology plan is for hemodialysis, patient requires dialysis catheter, 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 Acute kidney injury with AG metabolic acidosis Multifactorial due to vanco toxicity, hypotension and diuretics Colchicine ,diuretics and vancomycin were discontinued Transferred to ICU for urgent hemodialysis Acute metabolic encephalopathy likely due to uremia/ hemodialysis as per Nephrology Hypotension Albumin ordered pressors as needed Left diabetic foot wound CT showing soft tissue swelling, synovitis, ? Phlegmon versus early abscess, necrotizing fasciitis> seen by general surgery, no plan for surgery IV vancomycin and cefepime stopped. Clindamycin continued (started 03/24/24) Arterial doppler showing delayed arterial upstroke suggesting inflow disease> seen by Dr. Chatman recommend outpatient follow-up with Dr. Chapman who has done prior vascular procedures Acute respiratory failure with hypoxia due to exacerbation of pulmonary edema , diuretics on hold as above hopefully improved with hemodialysis sepsis due to COPD vs diabetic foot infection> sepsis resolved Blood cultures neg continue antibiotic for foot infection Atrial fibrillation with rapid ventricular response> resolved ,converted to sinus IDDM with hyperglycemia continue insulin sliding scale and Lantus follow blood sugars History of pericardial effusion seen by Cardiology repeat bedside echocardiogram obtained this morning KIMANI CPAP at bedtime Patient being transferred to intensive care unit for urgent hemodialysis/hypotension/encephalopathy treatment can not be provided in less acute setting. Quality Stroke Does the patient have a stroke diagnosis?: No VTE Prior VTE?: No VTE Risk Level:: Medical - moderate - high VTE Device Contraindication: N/A - Device Ordered VTE Drug Contraindication: N/A - Med Ordered
[2024-03-29 16:48] LABS: Glucose, Whole Blood 89 mg/dL (60-115)
--- NOTE | 2024-03-29 17:44 | PC.NURSE ---
Pt transferred?to ICU at 1130 this morning. Bumex IVP, albumin, and Vitamin K given per MAR. Around 1245 pt was brought to nuclear medicine. Around 1400 pt was brought?to IR to have a hemodialysis?catheter placed. Hemodialysis?started around 1510.
[2024-03-29] MEDS: Morphine Sulfate 2 MG/ML CARTRIDGE 1 MG IVPUSH ×2 (19:42→22:17)
--- NOTE | 2024-03-29 20:00 | HO.SKINPHOTO ---
Addendum entered by Sera Diaz RN 03/30/24 06:01: correction left second toe Original Note: left great Toe
[2024-03-29 20:10] LABS: VBG Base Excess -2.4 mmol/L; VBG HCO3 22 mmol/L (22-26); VBG pCO2 37 mmHg; VBG pH 7.37 (7.32-7.43); VBG pO2 51 mmHg
[2024-03-29 20:17] LABS: Venous Blood Gas Refer to POC result
[2024-03-29 20:29] LABS: Albumin Level 3.4 g/dL (3.5-5.0); Anion Gap 21 (12-20); Blood Urea Nitrogen 90 mg/dL (9-16); Calcium 6.6 mg/dL (8.4-10.2); Carbon Dioxide 21 mmol/L (22-29); Chloride 98 mmol/L (96-108); Creatinine Clr Calc Pharmacy 37.6; Estimated Glomerular Filt Rate 27; Glucose Random 111 mg/dL (60-115); Magnesium 2.8 mg/dL (1.6-2.6); Phosphorus 8.2 mg/dL (2.7-4.5); Potassium 4.1 mmol/L (3.3-5.1); Sodium 136 mmol/L (135-145)
[2024-03-29 21:03] LABS: Glucose, Whole Blood 110 mg/dL (60-115)
[2024-03-29] MEDS: Calcium Gluconate/NaCl,Iso-Osm 2 GM/100 ML PLAST..BAG IV (21:22)
[2024-03-29] MEDS: traZODone HCL 50 MG TABLET PO (22:20)
[2024-03-30] VITALS (22 sets, daily range): BP systolic 91–120; BP diastolic 51–67; PULSE 59–90; RESP 10–25; TEMP 35.9–36.6; O2SAT 92–97; BMI 30.9
[2024-03-30] MEDS: 0.9 % Sodium Chloride Flush 3 ML SYRINGE IVFLUSH ×4 (01:06→20:15)
[2024-03-30] MEDS: Albumin Human 25 % 100 ML IV ×3 (01:06→05:43)
[2024-03-30] MEDS: Morphine Sulfate 2 MG/ML CARTRIDGE 1 MG IVPUSH ×5 (01:10→23:17)
[2024-03-30] MEDS: Clindamycin Phosphate/D5W 900 MG/50 ML PIGGYBACK 50 MG IV ×3 (04:12→20:12)
[2024-03-30 05:26] LABS: VBG Base Excess -1.3 mmol/L; VBG HCO3 24 mmol/L (22-26); VBG pCO2 47 mmHg; VBG pH 7.32 (7.32-7.43); VBG pO2 52 mmHg
[2024-03-30 05:27] LABS: Venous Blood Gas Refer to POC result
[2024-03-30 05:38] LABS: MANUAL DIFF FLAG NO
[2024-03-30 05:40] LABS: Basophils Percent Auto 0.2 % (0-2); Hematocrit 28.7 % (42.0-52.0); Hemoglobin 8.9 g/dl (14.0-18.0); Imm Gran Abs Auto 0.13 X10*3/uL (0.00-0.03); Imm Gran Pct Auto 1.1 % (0.0-0.4); Lymphocytes Absolute Auto 1.3 X10*3/uL (1.2-4.9); Lymphocytes Percent Auto 10.5 % (20-40); Mean Corpuscular Hemoglobin 22.2 pg (27.0-33.0); Mean Corpuscular Volume 71.6 fL (80.0-98.0); Mean Platelet Volume 10.6 fL (9.4-12.4); Monocytes Percent Auto 7.7 % (2-11); NRBC Pct Auto 11.7 /100WBC (0.0-0.2); Neutrophils Absolute Auto 9.9 x10*3/uL (2.0-8.3); Neutrophils Percent Auto 80.5 % (45-73); Platelet Count 167 X10*3/uL (160-400); Red Blood Count 4.01 X10*6/uL (4.60-5.80); White Blood Count 12.3 X10*3/uL (4.8-10.8)
[2024-03-30] MEDS: Omeprazole 20 MG CAPSULE.DR PO (05:43)
[2024-03-30 05:59] LABS: Alanine Aminotransferase 428 U/L (0-40); Albumin Level 3.6 g/dL (3.5-5.0); Alkaline Phosphatase 176 U/L (39-117); Anion Gap 20 (12-20); Aspartate Amino Transferase 150 U/L (5-37); Bilirubin Total 1.4 mg/dL (0.0-1.0); Blood Urea Nitrogen 92 mg/dL (9-16); Calcium 7.2 mg/dL (8.4-10.2); Carbon Dioxide 22 mmol/L (22-29); Chloride 99 mmol/L (96-108); Creatinine Clr Calc Pharmacy 33.6; Estimated Glomerular Filt Rate 24; Glucose Random 95 mg/dL (60-115); Magnesium 2.8 mg/dL (1.6-2.6); Phosphorus 8.9 mg/dL (2.7-4.5); Potassium 4.4 mmol/L (3.3-5.1); Sodium 137 mmol/L (135-145); Total Protein 6.2 g/dL (6.5-8.0)
[2024-03-30 07:52] LABS: Glucose, Whole Blood 96 mg/dL (60-115)
--- NOTE | 2024-03-30 09:05 | P.PNNP_ITS ---
Subjective Subjective Date of Service: 03/30/24 Interval history: This is a 58-year-old male with a history of atrial fibrillation on Eliquis, ischemic cardiomyopathy status post AICD, coronary artery disease status post PCI, COPD, KIMANI on CPAP, HFrEF (30%) here for treatment of COPD exacerbation and of sepsis 2/2 diabetic foot infection, as well as afib with RVR. pt developed DECLAN on admission Cr 0.96, has been progressively trending up with vancomycin and pt was switched to clindamycin. However and uremia, was transferred to ICU for emergent HD, which he received yesterday evening. creatinine has improved from 3.58 to 2.44 after HD yesterday, though has incrased slightly this a.m. to 2.73. acidosis has improved sodium has normalized potassium has normalized corrected calcium remains about the same as yesterday (7.5) phosphorous is elevated at 8.9, magnesium at 2.8 H&H dropped to 8.9/28.7 (yesterady 11.5/38) pt is now on vasopressors for blood pressure support at bedside today pt is lethargic and nodding off, moaning and not answering questions appropriately His andrews put out 795mL yesterday, 45mL thus far today has some mild edema in lower extremities, hands. Physical Exam 2 Vital Signs: Vital Signs: Last Vital Signs Temp 97.3 F 03/30/24 09:00 Pulse 60 03/30/24 09:00 Resp 25 H 03/30/24 09:00 BP 99/64 03/30/24 09:00 Pulse Ox 95 03/30/24 09:00 O2 Del Method Nasal Cannula 03/30/24 09:00 O2 Flow Rate 2 03/30/24 09:00 FiO2 21 03/29/24 23:00 BMI result Body Mass Index 30.9 Const: Other: Does not follow commands or answer questions appropriately. Opens eyes to repeated verbal stimulation. Moaning frequently. General: confusion and lethargic Orientation/consciousness: confusion and lethargic Limitations: altered mental status Neck: Other: Right HD catheter in place. Resp: Effort & Inspection: normal respiratory effort Auscultation: clear to auscultation bilaterally Cardio: Jugular venous distension: no JVD Rate: regular rate Rhythm: r egular rhythm Heart sounds: S1 normal heart sound present, S2 normal heart sound present and Murmur heart sound present : Other: andrews catheter in place Skin: Rashes: no rashes Neuro: General: confusion Motor exam (neuro): no tremors Objective Data Labs 03/30/24 05:04 03/30/24 05:04 Labs: Laboratory Results - last 24 hr 03/28/24 03/29/24 03/29/24 10:23 11:24 11:54 WBC RBC Hgb Hct MCV MCH MCHC RDW Plt Count MPV Immature Gran % (Auto) Neut % (Auto) Lymph % (Auto) [place] % (Auto) Eos % (Auto) Baso % (Auto) Lymph # (Auto) [place] # (Auto) Eos # (Auto) Baso # (Auto) Abs Immat Gran (auto) Absolute Neuts (auto) Absolute Nucleated RBC Nucleated RBC % (auto) Smear Path Review SEE NOTE Hold Purple Top VBG pH VBG pCO2 VBG pO2 VBG HCO3 VBG O2 Saturation VBG Base Excess Sodium 132 L Potassium 5.4 H Chloride 99 Carbon Dioxide 15 L Anion Gap 23 H BUN 124 H Creatinine 3.47 H Estim Creat Clear Calc 26.5 Estimated GFR 18 POC Glucose 104 Random Glucose 98 Calcium 6.4 L Phosphorus Magnesium Total Bilirubin 1.0 Direct Bilirubin 0.7 H AST 231 H ALT 694 H Alkaline Phosphatase 219 H B-Natriuretic Peptide 3332 H Total Protein 6.3 L Albumin 2.7 L PTH Intact 496.6 H 03/29/24 03/29/24 03/29/24 11:58 12:38 12:44 WBC RBC Hgb Hct MCV MCH MCHC RDW Plt Count MPV Immature Gran % (Auto) Neut % (Auto) Lymph % (Auto) [place] % (Auto) Eos % (Auto) Baso % (Auto) Lymph # (Auto) [place] # (Auto) Eos # (Auto) Baso # (Auto) Abs Immat Gran (auto) Absolute Neuts (auto) Absolute Nucleated RBC Nucleated RBC % (auto) Smear Path Review Hold Purple Top SEE NOTE VBG pH 7.21 L VBG pCO2 46 VBG pO2 43 VBG HCO3 18 L VBG O2 Saturation 56.0 VBG Base Excess -8.7 Sodium 132 L Potassium 5.4 H Chloride 97 Carbon Dioxide 19 L Anion Gap 21 H BUN 123 H Creatinine 3.58 H Estim Creat Clear Calc 25.6 Estimated GFR 17 POC Glucose Random Glucose 96 Calcium 6.5 L Phosphorus 11.8 H Magnesium 3.1 H Total Bilirubin 1.1 H Direct Bilirubin AST 243 H ALT 717 H Alkaline Phosphatase 225 H B-Natriuretic Peptide Total Protein 6.5 Albumin 2.9 L PTH Intact 03/29/24 03/29/24 03/29/24 13:34 16:45 20:01 WBC RBC Hgb Hct MCV MCH MCHC RDW Plt Count MPV Immature Gran % (Auto) Neut % (Auto) Lymph % (Auto) [place] % (Auto) Eos % (Auto) Baso % (Auto) Lymph # (Auto) [place] # (Auto) Eos # (Auto) Baso # (Auto) Abs Immat Gran (auto) Absolute Neuts (auto) Absolute Nucleated RBC Nucleated RBC % (auto) Smear Path Review Hold Purple Top VBG pH VBG pCO2 VBG pO2 VBG HCO3 VBG O2 Saturation VBG Base Excess Sodium 136 Potassium 4.1 D Chloride 98 Carbon Dioxide 21 L Anion Gap 21 H BUN 90 H Creatinine 2.44 H Estim Creat Clear Calc 37.6 Estimated GFR 27 POC Glucose 95 89 Random Glucose 111 Calcium 6.6 L Phosphorus 8.2 H Magnesium 2.8 H Total Bilirubin Direct Bilirubin AST ALT Alkaline Phosphatase B-Natriuretic Peptide Total Protein Albumin 3.4 L PTH Intact 03/29/24 03/29/24 03/30/24 20:06 20:59 05:04 WBC 12.3 H RBC 4.01 L D Hgb 8.9 L D Hct 28.7 L D MCV 71.6 L MCH 22.2 L MCHC 31.0 RDW 18.0 H Plt Count 167 D MPV 10.6 Immature Gran % (Auto) 1.1 H Neut % (Auto) 80.5 H Lymph % (Auto) 10.5 L [place] % (Auto) 7.7 Eos % (Auto) 0.0 Baso % (Auto) 0.2 Lymph # (Auto) 1.3 [place] # (Auto) 1.0 Eos # (Auto) 0.0 Baso # (Auto) 0.0 Abs Immat Gran (auto) 0.13 H Absolute Neuts (auto) 9.9 H Absolute Nucleated RBC 1.440 H Nucleated RBC % (auto) 11.7 H Smear Path Review Hold Purple Top VBG pH 7.37 VBG pCO2 37 VBG pO2 51 VBG HCO3 22 VBG O2 Saturation 73.0 VBG Base Excess -2.4 Sodium 137 Potassium 4.4 Chloride 99 Carbon Dioxide 22 Anion Gap 20 BUN 92 H Creatinine 2.73 H Estim Creat Clear Calc 33.6 Estimated GFR 24 POC Glucose 110 Random Glucose 95 Calcium 7.2 L D Phosphorus 8.9 H Magnesium 2.8 H Total Bilirubin 1.4 H Direct Bilirubin AST 150 H ALT 428 H Alkaline Phosphatase 176 H B-Natriuretic Peptide Total Protein 6.2 L Albumin 3.6 PTH Intact 03/30/24 03/30/24 05:17 07:49 WBC RBC Hgb Hct MCV MCH MCHC RDW Plt Count MPV Immature Gran % (Auto) Neut % (Auto) Lymph % (Auto) [place] % (Auto) Eos % (Auto) Baso % (Auto) Lymph # (Auto) [place] # (Auto) Eos # (Auto) Baso # (Auto) Abs Immat Gran (auto) Absolute Neuts (auto) Absolute Nucleated RBC Nucleated RBC % (auto) Smear Path Review Hold Purple Top VBG pH 7.32 VBG pCO2 47 VBG pO2 52 VBG HCO3 24 VBG O2 Saturation 73.0 VBG Base Excess -1.3 Sodium Potassium Chloride Carbon Dioxide Anion Gap BUN Creatinine Estim Creat Clear Calc Estimated GFR POC Glucose 96 Random Glucose Calcium Phosphorus Magnesium Total Bilirubin Direct Bilirubin AST ALT Alkaline Phosphatase B-Natriuretic Peptide Total Protein Albumin PTH Intact Microbiology Microbiology Results: Microbiology 03/26/24 22:43 Blood - Venous Blood Culture - Preliminary No growth after 48 hours. 03/26/24 22:43 Blood - Venous Blood Culture - Preliminary No growth after 48 hours. 03/23/24 12:31 Blood - Venous Blood Culture - Final No growth after 5 days. 03/23/24 12:28 Blood - Venous Blood Culture - Final No growth after 5 days. 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 his mental status remains altered this a.m., will need HD again today right IJ HD catheter in place H&H 8.9 today (dopped)- should consider LDH and haptoglobins for hemolysis if persistent corrected calcium acceptable, increased duration of HD today to 3 hours (phosphorous elevated). appears hypervolemic today, will remove fluid as tolerated. Discussed with Dr Olson. Time Spent With Patient Time: Total time managing care of this patient today ____ minutes. Progress Note: Quality Stroke Does the patient have a stroke diagnosis?: No
[2024-03-30 09:09] LABS: HBS Num1 0.29 mIU/mL (0-7.99); HBc Num1 0.09 S/CO (0.00-0.79); Hepatitis B Core Antibody Nonreactive (Nonreactive); Hepatitis B Surface Antigen Negative (Negative); ~HepC Num1 0.13 S/CO (0.00-0.79); ~Hepatitis B Surface Antibody NONREACTIVE (Nonreactive); ~Hepatitis C Antibody Nonreactive (Nonreactive)
--- NOTE | 2024-03-30 09:50 | MHC.CM.PN ---
Pt continues care in ICU: HF, DECLAN and ? osteo: had one session of HD and will have ultra filtration today. MD expects some renal recovery but if pt does not respond to treatment, he may need to transfer to [facility] for more aggressive cardiac care. CM to follow. Pt initially planned to return to home w/existing VNA and [employer].
[2024-03-30] MEDS: Calcium Gluconate/NaCl,Iso-Osm 2 GM/100 ML PLAST..BAG IV (10:24)
[2024-03-30 11:13] LABS: Glucose, Whole Blood 78 mg/dL (60-115)
--- NOTE | 2024-03-30 11:19 | PM.CCPN ---
Subjective Subjective Date of Service: 03/30/24 Interval History: 58-year old gentleman with underlying severe CHF with EF ~15% s/p AICD placement, AFib, DM, COPD admitted on 03/23/2024 with dyspnea and diabetic foot infection with concern for osteomyelitis. Patient treated with empiric antibiotics and for COPD exacerbation with hospital course significant for progressive acute kidney injury with metabolic acidosis and congestive heart failure further complicated by hepatic congestion and encephalopathy today requiring transfer to the ICU for close monitoring. Patient was started on hemodialysis with improvement in his hyperkalemia and acidosis. No events overnight. Critical Care Time (minutes): 0 Physical Exam Vital Signs: Vital Signs: Last Vital Signs Temp 97.5 F 03/30/24 10:00 Pulse 60 03/30/24 10:00 Resp 23 H 03/30/24 11:08 BP 91/56 L 03/30/24 10:00 Pulse Ox 95 03/30/24 10:00 O2 Del Method Nasal Cannula 03/30/24 10:00 O2 Flow Rate 2 03/30/24 10:00 FiO2 21 03/29/24 23:00 BMI result Body Mass Index 30.9 Const: General: no acute distress, alert, awake and confusion Orientation/consciousness: confusion Eyes: Sclerae: sclerae normal EOM: EOMs intact bilaterally Neck: Neck: Yes no lymphadenopathy, Yes trachea midline and Yes supple Resp: Effort & Inspection: normal respiratory effort and no respiratory distress Auscultation: clear to auscultation bilaterally Cardio: Rate: regular rate Rhythm: regular rhythm Heart sounds: no gallops, no murmurs and no rubs GI: Palpation (GI): Soft to palpation and Other GI palpation findings present ( Nontender) Auscultation: normal bowel sounds Neuro: General: confusion Extrem: General: No clubbing, No cyanosis and Yes edema (1+ bilateral) Objective Data Labs 03/30/24 05:04 03/30/24 05:04 Labs: Laboratory Results - last 24 hr 03/29/24 03/29/24 03/29/24 11:24 11:54 11:58 WBC RBC Hgb Hct MCV MCH MCHC RDW Plt Count MPV Immature Gran % (Auto) Neut % (Auto) Lymph % (Auto) [facility] % (Auto) Eos % (Auto) Baso % (Auto) Lymph # (Auto) [facility] # (Auto) Eos # (Auto) Baso # (Auto) Abs Immat Gran (auto) Absolute Neuts (auto) Absolute Nucleated RBC Nucleated RBC % (auto) Hold Purple Top SEE NOTE VBG pH VBG pCO2 VBG pO2 VBG HCO3 VBG O2 Saturation VBG Base Excess Sodium 132 L Potassium 5.4 H Chloride 99 Carbon Dioxide 15 L Anion Gap 23 H BUN 124 H Creatinine 3.47 H Estim Creat Clear Calc 26.5 Estimated GFR 18 POC Glucose 104 Random Glucose 98 Calcium 6.4 L Phosphorus Magnesium Total Bilirubin 1.0 Direct Bilirubin 0.7 H AST 231 H ALT 694 H Alkaline Phosphatase 219 H B-Natriuretic Peptide 3332 H Total Protein 6.3 L Albumin 2.7 L PTH Intact 496.6 H Hep Bs Antigen Hep Bs Antibody Hep B Core Total Ab Hepatitis C Ab (EIA) 03/29/24 03/29/24 03/29/24 12:38 12:44 13:34 WBC RBC Hgb Hct MCV MCH MCHC RDW Plt Count MPV Immature Gran % (Auto) Neut % (Auto) Lymph % (Auto) [facility] % (Auto) Eos % (Auto) Baso % (Auto) Lymph # (Auto) [facility] # (Auto) Eos # (Auto) Baso # (Auto) Abs Immat Gran (auto) Absolute Neuts (auto) Absolute Nucleated RBC Nucleated RBC % (auto) Hold Purple Top VBG pH 7.21 L VBG pCO2 46 VBG pO2 43 VBG HCO3 18 L VBG O2 Saturation 56.0 VBG Base Excess -8.7 Sodium 132 L Potassium 5.4 H Chloride 97 Carbon Dioxide 19 L Anion Gap 21 H BUN 123 H Creatinine 3.58 H Estim Creat Clear Calc 25.6 Estimated GFR 17 POC Glucose 95 Random Glucose 96 Calcium 6.5 L Phosphorus 11.8 H Magnesium 3.1 H Total Bilirubin 1.1 H Direct Bilirubin AST 243 H ALT 717 H Alkaline Phosphatase 225 H B-Natriuretic Peptide Total Protein 6.5 Albumin 2.9 L PTH Intact Hep Bs Antigen Hep Bs Antibody Hep B Core Total Ab Hepatitis C Ab (EIA) 03/29/24 03/29/24 03/29/24 16:45 20:01 20:06 WBC RBC Hgb Hct MCV MCH MCHC RDW Plt Count MPV Immature Gran % (Auto) Neut % (Auto) Lymph % (Auto) [facility] % (Auto) Eos % (Auto) Baso % (Auto) Lymph # (Auto) [facility] # (Auto) Eos # (Auto) Baso # (Auto) Abs Immat Gran (auto) Absolute Neuts (auto) Absolute Nucleated RBC Nucleated RBC % (auto) Hold Purple Top VBG pH 7.37 VBG pCO2 37 VBG pO2 51 VBG HCO3 22 VBG O2 Saturation 73.0 VBG Base Excess -2.4 Sodium 136 Potassium 4.1 D Chloride 98 Carbon Dioxide 21 L Anion Gap 21 H BUN 90 H Creatinine 2.44 H Estim Creat Clear Calc 37.6 Estimated GFR 27 POC Glucose 89 Random Glucose 111 Calcium 6.6 L Phosphorus 8.2 H Magnesium 2.8 H Total Bilirubin Direct Bilirubin AST ALT Alkaline Phosphatase B-Natriuretic Peptide Total Protein Albumin 3.4 L PTH Intact Hep Bs Antigen Negative Hep Bs Antibody NONREACTIVE Hep B Core Total Ab Nonreactive Hepatitis C Ab (EIA) Nonreactive 03/29/24 03/30/24 03/30/24 20:59 05:04 05:17 WBC 12.3 H RBC 4.01 L D Hgb 8.9 L D Hct 28.7 L D MCV 71.6 L MCH 22.2 L MCHC 31.0 RDW 18.0 H Plt Count 167 D MPV 10.6 Immature Gran % (Auto) 1.1 H Neut % (Auto) 80.5 H Lymph % (Auto) 10.[address] [facility] % (Auto) 7.7 Eos % (Auto) 0.0 Baso % (Auto) 0.2 Lymph # (Auto) 1.3 [facility] # (Auto) 1.0 Eos # (Auto) 0.0 Baso # (Auto) 0.0 Abs Immat Gran (auto) 0.13 H Absolute Neuts (auto) 9.9 H Absolute Nucleated RBC 1.440 H Nucleated RBC % (auto) 11.7 H Hold Purple Top VBG pH 7.32 VBG pCO2 47 VBG pO2 52 VBG HCO3 24 VBG O2 Saturation 73.0 VBG Base Excess -1.3 Sodium 137 Potassium 4.4 Chloride 99 Carbon Dioxide 22 Anion Gap 20 BUN 92 H Creatinine 2.73 H Estim Creat Clear Calc 33.6 Estimated GFR 24 POC Glucose 110 Random Glucose 95 Calcium 7.2 L D Phosphorus 8.9 H Magnesium 2.8 H Total Bilirubin 1.4 H Direct Bilirubin AST 150 H ALT 428 H Alkaline Phosphatase 176 H B-Natriuretic Peptide Total Protein 6.2 L Albumin 3.6 PTH Intact Hep Bs Antigen Hep Bs Antibody Hep B Core Total Ab Hepatitis C Ab (EIA) 03/30/24 03/30/24 07:49 11:10 WBC RBC Hgb Hct MCV MCH MCHC RDW Plt Count MPV Immature Gran % (Auto) Neut % (Auto) Lymph % (Auto) [facility] % (Auto) Eos % (Auto) Baso % (Auto) Lymph # (Auto) [facility] # (Auto) Eos # (Auto) Baso # (Auto) Abs Immat Gran (auto) Absolute Neuts (auto) Absolute Nucleated RBC Nucleated RBC % (auto) Hold Purple Top VBG pH VBG pCO2 VBG pO2 VBG HCO3 VBG O2 Saturation VBG Base Excess Sodium Potassium Chloride Carbon Dioxide Anion Gap BUN Creatinine Estim Creat Clear Calc Estimated GFR POC Glucose 96 78 Random Glucose Calcium Phosphorus Magnesium Total Bilirubin Direct Bilirubin AST ALT Alkaline Phosphatase B-Natriuretic Peptide Total Protein Albumin PTH Intact Hep Bs Antigen Hep Bs Antibody Hep B Core Total Ab Hepatitis C Ab (EIA) Microbiology Microbiology Results: Microbiology 03/26/24 22:43 Blood - Venous Blood Culture - Preliminary No growth after 48 hours. 03/26/24 22:43 Blood - Venous Blood Culture - Preliminary No growth after 48 hours. 03/23/24 12:31 Blood - Venous Blood Culture - Final No growth after 5 days. 03/23/24 12:28 Blood - Venous Blood Culture - Final No growth after 5 days. Progress Note: A&P Assessment and plan (1) Metabolic encephalopathy: Status: Acute (2) DECLAN (acute kidney injury): Status: Acute (3) Acute on chronic HFrEF (heart failure with reduced ejection fraction): Status: Acute (4) 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: Status: Acute Plan Assessment: Plan: Neuro: metabolic encephalopathy likely secondary to uremia, expect to improve with hemodialysis. Cardiac: Acute on chronic congestive heart failure with worsening systolic function and poow forward flow. Cardiology service care appreciated. Pressor support as needed. If improves with hemodialysis, may be a candidate for advanced heart failure evluation. Pulmonary: Acute hypoxic respiratory failure secondary to pulmonary edema, expect to improve with ultrafiltration. Renal: Acute renal failure with metabolic acidosis and hyperkalemia improved with hemodialysis. Nephrology service care appreciated. Endo: No acute issues. GI: No acute issues. ID: Diabetic foot infection, continue broad spectrum antibiotics. Tagged white cell scan on hold secondary to acute decompensation. Heme/Onc: No acute issues. Psych: No acute issues. Miscellaneous: No acute issues. Prophylaxis: apixaban Diet: Pending swallow evaluation Quality Stroke Does the patient have a stroke diagnosis?: No VTE Prior VTE?: No VTE Risk Level:: Medical - moderate - high VTE Device Contraindication: N/A - Device Ordered VTE Drug Contraindication: N/A - Med Ordered
[2024-03-30] MEDS: Dextrose 10 % 250 ML 750 ML IV (12:10)
[2024-03-30 12:45] LABS: Glucose, Whole Blood 153 mg/dL (60-115)
[2024-03-30 15:46] LABS: Glucose, Whole Blood 95 mg/dL (60-115)
--- NOTE | 2024-03-30 17:50 | P.PNCA_ITS ---
Subjective Subjective Date of Service: 03/30/24 Interval history: Seen and examined at bedside and detailed discussion done with sister at bedside in the morning. Continues to be agitated and somewhat confused. Has not required any pressors in the CCU. Plan is HD today, he didnt get any HD yesterday. Physical Exam Vital Signs: Last Vital Signs Temp 97.0 F 03/30/24 14:00 Pulse 60 03/30/24 14:00 Resp 20 03/30/24 14:00 BP 115/67 03/30/24 14:00 Pulse Ox 95 03/30/24 14:00 O2 Del Method CPAP 03/30/24 14:00 O2 Flow Rate 2 03/30/24 13:00 FiO2 21 03/30/24 14:00 BMI result Body Mass Index 30.9 GENERAL APPEARANCE: Agitated and somewhat confused. NECK: + JVD. SKIN: no suspicious lesions, warm and dry. HEART: no murmurs, regular rate and rhythm. LUNGS: clear to auscultation anteriorly. ABDOMEN: soft, nontender. EXTREMITIES: Foot wound no obvious discharge. PERIPHERAL PULSES: equal. NEUROLOGIC: No gross deficits, somewhat confused/encephalopathic. Objective Labs and Meds 03/30/24 05:04 03/30/24 05:04 Lab results: Laboratory Results - last 24 hr 03/29/24 03/29/24 03/29/24 20:01 20:06 20:59 WBC RBC Hgb Hct MCV MCH MCHC RDW Plt Count MPV Immature Gran % (Auto) Neut % (Auto) Lymph % (Auto) [place] % (Auto) Eos % (Auto) Baso % (Auto) Lymph # (Auto) [place] # (Auto) Eos # (Auto) Baso # (Auto) Abs Immat Gran (auto) Absolute Neuts (auto) Absolute Nucleated RBC Nucleated RBC % (auto) VBG pH 7.37 VBG pCO2 37 VBG pO2 51 VBG HCO3 22 VBG O2 Saturation 73.0 VBG Base Excess -2.4 Sodium 136 Potassium 4.1 D Chloride 98 Carbon Dioxide 21 L Anion Gap 21 H BUN 90 H Creatinine 2.44 H Estim Creat Clear Calc 37.6 Estimated GFR 27 POC Glucose 110 Random Glucose 111 Calcium 6.6 L Phosphorus 8.2 H Magnesium 2.8 H Total Bilirubin AST ALT Alkaline Phosphatase Total Protein Albumin 3.4 L Hep Bs Antigen Negative Hep Bs Antibody NONREACTIVE Hep B Core Total Ab Nonreactive Hepatitis C Ab (EIA) Nonreactive 03/30/24 03/30/24 03/30/24 05:04 05:17 07:49 WBC 12.3 H RBC 4.01 L D Hgb 8.9 L D Hct 28.7 L D MCV 71.6 L MCH 22.2 L MCHC 31.0 RDW 18.0 H Plt Count 167 D MPV 10.6 Immature Gran % (Auto) 1.1 H Neut % (Auto) 80.5 H Lymph % (Auto) 10.5 L [place] % (Auto) 7.7 Eos % (Auto) 0.0 Baso % (Auto) 0.2 Lymph # (Auto) 1.3 [place] # (Auto) 1.0 Eos # (Auto) 0.0 Baso # (Auto) 0.0 Abs Immat Gran (auto) 0.13 H Absolute Neuts (auto) 9.9 H Absolute Nucleated RBC 1.440 H Nucleated RBC % (auto) 11.7 H VBG pH 7.32 VBG pCO2 47 VBG pO2 52 VBG HCO3 24 VBG O2 Saturation 73.0 VBG Base Excess -1.3 Sodium 137 Potassium 4.4 Chloride 99 Carbon Dioxide 22 Anion Gap 20 BUN 92 H Creatinine 2.73 H Estim Creat Clear Calc 33.6 Estimated GFR 24 POC Glucose 96 Random Glucose 95 Calcium 7.2 L D Phosphorus 8.9 H Magnesium 2.8 H Total Bilirubin 1.4 H AST 150 H ALT 428 H Alkaline Phosphatase 176 H Total Protein 6.2 L Albumin 3.6 Hep Bs Antigen Hep Bs Antibody Hep B Core Total Ab Hepatitis C Ab (EIA) 03/30/24 03/30/24 03/30/24 11:10 12:42 15:42 WBC RBC Hgb Hct MCV MCH MCHC RDW Plt Count MPV Immature Gran % (Auto) Neut % (Auto) Lymph % (Auto) [place] % (Auto) Eos % (Auto) Baso % (Auto) Lymph # (Auto) [place] # (Auto) Eos # (Auto) Baso # (Auto) Abs Immat Gran (auto) Absolute Neuts (auto) Absolute Nucleated RBC Nucleated RBC % (auto) VBG pH VBG pCO2 VBG pO2 VBG HCO3 VBG O2 Saturation VBG Base Excess Sodium Potassium Chloride Carbon Dioxide Anion Gap BUN Creatinine Estim Creat Clear Calc Estimated GFR POC Glucose 78 153 H 95 Random Glucose Calcium Phosphorus Magnesium Total Bilirubin AST ALT Alkaline Phosphatase Total Protein Albumin Hep Bs Antigen Hep Bs Antibody Hep B Core Total Ab Hepatitis C Ab (EIA) Imaging Radiologist's impression: Impressions WBC Scan Nuclear Medicine 03/29/24 07:45 IMPRESSION: Incomplete study. Although the flow and blood pool images show a mild diffuse increase in flow and blood pool activity in the left distal lower extremity, delayed static images were canceled and the evaluation of this study for active infection cannot be performed. Electronically signed by: Eladio Hernandez MD 03/30/2024 11:18 AM EDT RP Chest X-Ray 03/30/24 15:10 IMPRESSION: 1. No displaced osseous fractures. 2. Similar to slightly increased interstitial markings and trace amount of right-sided pleural fluid. Findings are nonspecific and could be associated with interstitial edema. 3. Nonobstructive bowel gas pattern. Moderate stool burden. Electronically signed by: Lenora Gomez MD 03/30/2024 04:36 PM EDT RP KUB X-Ray 03/30/24 15:10 IMPRESSION: 1. No displaced osseous fractures. 2. Similar to slightly increased interstitial markings and trace amount of right-sided pleural fluid. Findings are nonspecific and could be associated with interstitial edema. 3. Nonobstructive bowel gas pattern. Moderate stool burden. Electronically signed by: Lenora Gomez MD 03/30/2024 04:36 PM EDT RP Progress Note: A&P Assessment and plan (1) Acute on chronic HFrEF (heart failure with reduced ejection fraction): Status: Acute (2) Metabolic encephalopathy: Status: Acute (3) DECLAN (acute kidney injury): Status: Acute (4) Hypotension: Status: Acute (5) Altered mental status: Status: Acute (6) Metabolic acidosis: Status: Acute Plan [age] year gentleman with cardiomyopathy with EF 30% and small to moderate size pericardial effusion based on recent echocardiography, acute kidney injury, foot infection on clindamycin and overall worsening of clinical status with shock. He was seen in the ICU today morning. He continues to be encephalopathic and volume overloaded. Plan is ultrfiltration today. Hopefully with volume removal we may be able to decongest and improve forward flow. Continues to hold toprol XL. No beta blockers or CCBs. Echo has shown worsening LVEF and at least moderate RV dysfunction. If does not tolerate HD then may need levophed/dobutamine. Currently he has not need any pressors. We will follow along with you. Thank you for allowing me to participate in the care of your patient. Please feel free to contact me if you have any questions. Time Spent With Patient Time: Total time managing care of this patient today ____ minutes. Progress Note: Quality Stroke Does the patient have a stroke diagnosis?: No Procedures Date of Service Date of Service: 03/30/24
[2024-03-30 19:35] LABS: Glucose, Whole Blood 177 mg/dL (60-115)
[2024-03-30] MEDS: Acetaminophen 325 MG TABLET 975 MG PO (20:09)
[2024-03-30] MEDS: Insulin Lispro 100 UNIT/ML 3 ML VIAL SUBCUT (20:15)
[2024-03-30] MEDS: oxyCODONE HCl Immed Release 5 MG TABLET 2.5 MG PO (21:53)
[2024-03-31] VITALS (7 sets, daily range): BP systolic 114–128; BP diastolic 60–78; PULSE 60–70; RESP 13–20; TEMP 36.1–36.7; O2SAT 93–98
[2024-03-31] MEDS: Clindamycin Phosphate/D5W 900 MG/50 ML PIGGYBACK 50 MG IV ×3 (04:56→21:39)
[2024-03-31 06:24] LABS: MANUAL DIFF FLAG NO
[2024-03-31 06:25] LABS: Basophils Percent Auto 0.1 % (0-2); Eosinophils Percent Auto 0.2 % (0-4); Hematocrit 32.4 % (42.0-52.0); Hemoglobin 10.1 g/dl (14.0-18.0); Imm Gran Abs Auto 0.15 X10*3/uL (0.00-0.03); Imm Gran Pct Auto 1.2 % (0.0-0.4); Lymphocytes Absolute Auto 1.3 X10*3/uL (1.2-4.9); Mean Corpuscular HGB Conc 31.2 g/dl (31.0-36.0); Mean Corpuscular Hemoglobin 22.3 pg (27.0-33.0); Mean Corpuscular Volume 71.7 fL (80.0-98.0); Mean Platelet Volume 10.4 fL (9.4-12.4); Neutrophils Absolute Auto 10.5 x10*3/uL (2.0-8.3); Neutrophils Percent Auto 80.5 % (45-73); Platelet Count 145 X10*3/uL (160-400); Red Blood Count 4.52 X10*6/uL (4.60-5.80); Red Cell Distribution Width 18.1 % (11.0-16.0)
[2024-03-31 06:29] LABS: NRBC Pct Auto 7.1 /100WBC (0.0-0.2)
[2024-03-31 06:30] LABS: Venous Blood Gas Refer to POC result
[2024-03-31 06:31] LABS: VBG Base Excess 0.5 mmol/L; VBG HCO3 25 mmol/L (22-26); VBG pCO2 41 mmHg; VBG pH 7.39 (7.32-7.43); VBG pO2 86 mmHg
[2024-03-31 06:43] LABS: Alanine Aminotransferase 327 U/L (0-40); Albumin Level 3.4 g/dL (3.5-5.0); Alkaline Phosphatase 203 U/L (39-117); Anion Gap 18 (12-20); Aspartate Amino Transferase 90 U/L (5-37); Bilirubin Total 1.5 mg/dL (0.0-1.0); Blood Urea Nitrogen 66 mg/dL (9-16); Calcium 7.3 mg/dL (8.4-10.2); Carbon Dioxide 23 mmol/L (22-29); Chloride 100 mmol/L (96-108); Creatinine Clr Calc Pharmacy 44.7; Estimated Glomerular Filt Rate 32; Glucose Random 272 mg/dL (60-115); Magnesium 2.7 mg/dL (1.6-2.6); Phosphorus 5.6 mg/dL (2.7-4.5); Potassium 3.5 mmol/L (3.3-5.1); Sodium 137 mmol/L (135-145); Total Protein 5.9 g/dL (6.5-8.0)
[2024-03-31] MEDS: Acetaminophen 325 MG TABLET 975 MG PO ×3 (08:17→21:29)
[2024-03-31 08:18] LABS: Glucose, Whole Blood 291 mg/dL (60-115)
[2024-03-31] MEDS: Amiodarone HCL 200 MG TABLET PO (08:18)
[2024-03-31] MEDS: Insulin Lispro 100 UNIT/ML 3 ML VIAL SUBCUT ×4 (08:18→21:36)
[2024-03-31] MEDS: 0.9 % Sodium Chloride Flush 3 ML SYRINGE IVFLUSH ×3 (08:20→21:39)
[2024-03-31] MEDS: Morphine Sulfate 2 MG/ML CARTRIDGE 1 MG IVPUSH ×3 (10:47→21:31)
--- NOTE | 2024-03-31 10:48 | P.PNCA_ITS ---
Subjective Subjective Date of Service: 03/31/24 Interval history: Seen examined at bedside. More coherent today after 2 sessions of hemodialysis. Holding blood pressure. Short of breath and wheezing. Physical Exam Vital Signs: Last Vital Signs Temp 97.3 F 03/31/24 07:24 Pulse 60 03/31/24 07:24 Resp 13 03/31/24 07:24 BP 114/63 03/31/24 07:24 Pulse Ox 97 03/31/24 07:24 O2 Del Method BiPAP 03/31/24 07:24 O2 Flow Rate 2 03/30/24 13:00 FiO2 21 03/30/24 14:00 BMI result Body Mass Index 30.9 GENERAL APPEARANCE: More coherent today. Short of breath and wheezy. NECK: + JVD. SKIN: no suspicious lesions, warm and dry. HEART: no murmurs, regular rate and rhythm. LUNGS: Bilateral expiratory wheezes. ABDOMEN: soft, nontender. EXTREMITIES: Foot wound no obvious discharge. PERIPHERAL PULSES: equal. NEUROLOGIC: No gross deficits, Objective Labs and Meds 03/31/24 06:20 03/31/24 06:20 Lab results: Laboratory Results - last 24 hr 03/30/24 03/30/24 03/30/24 11:10 12:42 15:42 WBC RBC Hgb Hct MCV MCH MCHC RDW Plt Count MPV Immature Gran % (Auto) Neut % (Auto) Lymph % (Auto) [place] % (Auto) Eos % (Auto) Baso % (Auto) Lymph # (Auto) [place] # (Auto) Eos # (Auto) Baso # (Auto) Abs Immat Gran (auto) Absolute Neuts (auto) Absolute Nucleated RBC Nucleated RBC % (auto) VBG pH VBG pCO2 VBG pO2 VBG HCO3 VBG O2 Saturation VBG Base Excess Sodium Potassium Chloride Carbon Dioxide Anion Gap BUN Creatinine Estim Creat Clear Calc Estimated GFR POC Glucose 78 153 H 95 Random Glucose Calcium Phosphorus Magnesium Total Bilirubin AST ALT Alkaline Phosphatase Total Protein Albumin 03/30/24 03/31/24 03/31/24 19:31 06:20 06:25 WBC 13.0 H RBC 4.52 L Hgb 10.1 L Hct 32.4 L MCV 71.7 L MCH 22.3 L MCHC 31.2 RDW 18.1 H Plt Count 145 L MPV 10.4 Immature Gran % (Auto) 1.2 H Neut % (Auto) 80.5 H Lymph % (Auto) 10.0 L [place] % (Auto) 8.0 Eos % (Auto) 0.2 Baso % (Auto) 0.1 Lymph # (Auto) 1.3 [place] # (Auto) 1.0 Eos # (Auto) 0.0 Baso # (Auto) 0.0 Abs Immat Gran (auto) 0.15 H Absolute Neuts (auto) 10.5 H Absolute Nucleated RBC 0.920 H Nucleated RBC % (auto) 7.1 H VBG pH 7.39 VBG pCO2 41 VBG pO2 86 VBG HCO3 25 VBG O2 Saturation 97.0 VBG Base Excess 0.5 Sodium 137 Potassium 3.5 D Chloride 100 Carbon Dioxide 23 Anion Gap 18 BUN 66 H Creatinine 2.12 H Estim Creat Clear Calc 44.7 Estimated GFR 32 POC Glucose 177 H Random Glucose 272 H Calcium 7.3 L Phosphorus 5.6 H Magnesium 2.7 H Total Bilirubin 1.5 H AST 90 H ALT 327 H Alkaline Phosphatase 203 H Total Protein 5.9 L Albumin 3.4 L 03/31/24 08:16 WBC RBC Hgb Hct MCV MCH MCHC RDW Plt Count MPV Immature Gran % (Auto) Neut % (Auto) Lymph % (Auto) [place] % (Auto) Eos % (Auto) Baso % (Auto) Lymph # (Auto) [place] # (Auto) Eos # (Auto) Baso # (Auto) Abs Immat Gran (auto) Absolute Neuts (auto) Absolute Nucleated RBC Nucleated RBC % (auto) VBG pH VBG pCO2 VBG pO2 VBG HCO3 VBG O2 Saturation VBG Base Excess Sodium Potassium Chloride Carbon Dioxide Anion Gap BUN Creatinine Estim Creat Clear Calc Estimated GFR POC Glucose 291 H Random Glucose Calcium Phosphorus Magnesium Total Bilirubin AST ALT Alkaline Phosphatase Total Protein Albumin Imaging Radiologist's impression: Impressions WBC Scan Nuclear Medicine 03/29/24 07:45 IMPRESSION: Incomplete study. Although the flow and blood pool images show a mild diffuse increase in flow and blood pool activity in the left distal lower extremity, delayed static images were canceled and the evaluation of this study for active infection cannot be performed. Electronically signed by: Eladio Hernandez MD 03/30/2024 11:18 AM EDT Chest X-Ray 03/30/24 15:10 IMPRESSION: 1. No displaced osseous fractures. 2. Similar to slightly increased interstitial markings and trace amount of right-sided pleural fluid. Findings are nonspecific and could be associated with interstitial edema. 3. Nonobstructive bowel gas pattern. Moderate stool burden. Electronically signed by: Lenora Gomez MD 03/30/2024 04:36 PM EDT RP KUB X-Ray 03/30/24 15:10 IMPRESSION: 1. No displaced osseous fractures. 2. Similar to slightly increased interstitial markings and trace amount of right-sided pleural fluid. Findings are nonspecific and could be associated with interstitial edema. 3. Nonobstructive bowel gas pattern. Moderate stool burden. Electronically signed by: Lenora Gomez MD 03/30/2024 04:36 PM EDT RP Progress Note: A&P Assessment and plan (1) Acute on chronic HFrEF (heart failure with reduced ejection fraction): Status: Acute (2) Metabolic encephalopathy: Status: Acute (3) DECLAN (acute kidney injury): Status: Acute (4) Hypotension: Status: Acute (5) Altered mental status: Status: Acute (6) Metabolic acidosis: Status: Acute Plan [age] year gentleman with cardiomyopathy with EF 30% and small to moderate size pericardial effusion based on recent echocardiography, acute kidney injury, foot infection on clindamycin and overall worsening of clinical status with shock. He had worsening clinical status in the hospital with worsening kidney function and encephalopathy. Was also hypotensive and was on high dose metoprolol. Apparently there were some episodes of atrial fibrillation that happened 2. Overall ejection fraction dropped on echocardiography to 10-15% with moderate RV dysfunction. He has done reasonably well with supportive care right now. He is getting sessions of hemodialysis for uremia/encephalopathy. Hopefully he starts making more urine and we can try oral medications. No beta-lion should be given to him. No Cardizem or verapamil. I have discussed with the patient and sister that if any concerns for hypotension happen again then we may have to consider transfer to [facility]. Currently he is maintaining blood pressure and does not appear to be in shock. He also has active infection and is on antibiotics. Thank you for allowing me to participate in the care of your patient. Please feel free to contact me if you have any questions. Time Spent With Patient Time: Total time managing care of this patient today ____ minutes. Progress Note: Quality Stroke Does the patient have a stroke diagnosis?: No Procedures Date of Service Date of Service: 03/31/24
--- NOTE | 2024-03-31 10:49 | MHC.CM.PN ---
PER MD ROUNDS, PT NOT READY TO DC DCP REMAINS HOME WITH RESUMPTION OF [facility] FOR WOUND CARE AND CERTIFIED [employer] PT TO ARRANGE TRANSPORT
--- NOTE | 2024-03-31 11:09 | PC.NURSE ---
patient juliana removed by this nurse on 03/30 @ 16:50 before transfering from ICU to [facility]. as back-charted in worklist.
--- NOTE | 2024-03-31 11:17 | PM.PNNEP ---
Subjective Subjective Date of Service: 03/31/24 Interval history: This is a 58-year-old male with a history of atrial fibrillation on Eliquis, ischemic cardiomyopathy status post AICD, coronary artery disease status post PCI, COPD, KIMANI on CPAP, HFrEF (30%) here for treatment of COPD exacerbation and of sepsis 2/2 diabetic foot infection, as well as afib with RVR. pt developed DECLAN on admission Cr 0.96, has been progressively trending up with vancomycin and pt was switched to clindamycin. However developed acute worsening of mental status and was transferred to ICU for emergent HD, which he received 03/29, 03/30 creatinine has improved from 3.58 prior to HD to 2.12 today acidosis and electrolyte balance has improved sodium has normalized corrected calcium remains low at 7.78 phosphorous elevated but improved significantly after HD (5.9) H&H 10.1 and 32.4 Pt is alert at bedside today, oriented reports continued shortness of breath reports he only passed a small amount of urine since yesterday Reports ongoing left foot pain (chronic diabetic foot wound) Denies other concerns Physical Exam Vital Signs: Vital Signs: Last Vital Signs Temp 97.3 F 03/31/24 07:24 Pulse 60 03/31/24 07:24 Resp 13 03/31/24 07:24 BP 114/63 03/31/24 07:24 Pulse Ox 97 03/31/24 07:24 O2 Del Method BiPAP 03/31/24 07:24 O2 Flow Rate 2 03/30/24 13:00 FiO2 21 03/30/24 14:00 BMI result Body Mass Index 30.9 Const: General: no acute distress and alert Orientation/consciousness: patient oriented x3 Neck: Neck: Yes no JVD Resp: Effort & Inspection: normal respiratory effort (breathing appears slightly labored ) Auscultation: rhonchi and wheezes (wheezing bilateral posterior middle lobes ) Cardio: Jugular venous distension: no JVD Rate: regular rate Rhythm: regular rhythm Heart sounds: S1 normal heart sound present and S2 normal heart sound present GI: Palpation (GI): Soft to palpation and nontender : General: Yes no CVA tenderness Back/Spine/Pelvis: Back: no CVA tenderness Skin: Rashes: no rashes Neuro: General: patient oriented x3 Extrem: General: No edema Objective Data Labs 03/31/24 06:20 03/31/24 06:20 Labs: Laboratory Results - last 24 hr 03/30/24 03/30/24 03/30/24 12:42 15:42 19:31 WBC RBC Hgb Hct MCV MCH MCHC RDW Plt Count MPV Immature Gran % (Auto) Neut % (Auto) Lymph % (Auto) Reynolds % (Auto) Eos % (Auto) Baso % (Auto) Lymph # (Auto) Reynolds # (Auto) Eos # (Auto) Baso # (Auto) Abs Immat Gran (auto) Absolute Neuts (auto) Absolute Nucleated RBC Nucleated RBC % (auto) VBG pH VBG pCO2 VBG pO2 VBG HCO3 VBG O2 Saturation VBG Base Excess Sodium Potassium Chloride Carbon Dioxide Anion Gap BUN Creatinine Estim Creat Clear Calc Estimated GFR POC Glucose 153 H 95 177 H Random Glucose Calcium Phosphorus Magnesium Total Bilirubin AST ALT Alkaline Phosphatase Total Protein Albumin 03/31/24 03/31/24 03/31/24 06:20 06:25 08:16 WBC 13.0 H RBC 4.52 L Hgb 10.1 L Hct 32.4 L MCV 71.7 L MCH 22.3 L MCHC 31.2 RDW 18.1 H Plt Count 145 L MPV 10.4 Immature Gran % (Auto) 1.2 H Neut % (Auto) 80.5 H Lymph % (Auto) 10.0 L Reynolds % (Auto) 8.0 Eos % (Auto) 0.2 Baso % (Auto) 0.1 Lymph # (Auto) 1.3 Reynolds # (Auto) 1.0 Eos # (Auto) 0.0 Baso # (Auto) 0.0 Abs Immat Gran (auto) 0.15 H Absolute Neuts (auto) 10.5 H Absolute Nucleated RBC 0.920 H Nucleated RBC % (auto) 7.1 H VBG pH 7.39 VBG pCO2 41 VBG pO2 86 VBG HCO3 25 VBG O2 Saturation 97.0 VBG Base Excess 0.5 Sodium 137 Potassium 3.5 D Chloride 100 Carbon Dioxide 23 Anion Gap 18 BUN 66 H Creatinine 2.12 H Estim Creat Clear Calc 44.7 Estimated GFR 32 POC Glucose 291 H Random Glucose 272 H Calcium 7.3 L Phosphorus 5.6 H Magnesium 2.7 H Total Bilirubin 1.5 H AST 90 H ALT 327 H Alkaline Phosphatase 203 H Total Protein 5.9 L Albumin 3.4 L Microbiology Microbiology Results: Microbiology 03/26/24 22:43 Blood - Venous Blood Culture - Preliminary No growth after 48 hours. 03/26/24 22:43 Blood - Venous Blood Culture - Preliminary No growth after 48 hours. 03/23/24 12:31 Blood - Venous Blood Culture - Final No growth after 5 days. 03/23/24 12:28 Blood - Venous Blood Culture - Final No growth after 5 days. Procedures Date of Service Date of Service: 03/31/24 Assessment & Plan Assessment and plan (1) Hyperkalemia: Status: Acute (2) 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: Status: Acute (3) DECLAN (acute kidney injury): Status: Acute Plan 58 y/o male who has developed DECLAN likely secondary to tubular injury due to cytokines from infection, hypoperfusion from hypotension and afib with RVR patient's metabolic encephalpathy has resolved with dialysis renal function is improving, creatinine this a.m. down to 2.12 plan for HD today right IJ HD catheter in place blood pressures stable (SBP 110s) no uremic symptoms today H&H 10.1 today corrected calcium 7.78 and phosphorous 5.9 appears hypervolemic today, will remove fluid as tolerated (maintain SBP>110). hold further dialysis treatments over the weekend. Monitor Urine output. Will discontinue HD catheter on Wednesday if improving. Discussed with Dr Time Spent With Patient Time: Total time managing care of this patient today ____ minutes. Progress Note: Quality Stroke Does the patient have a stroke diagnosis?: No
[2024-03-31 14:33] LABS: Glucose, Whole Blood 209 mg/dL (60-115)
[2024-03-31] MEDS: oxyCODONE HCl Immed Release 5 MG TABLET 2.5 MG PO ×2 (14:33→21:30)
--- NOTE | 2024-03-31 15:17 | HO.PM.IMPN ---
Subjective Subjective Date of Service: 03/31/24 Interval History: Complaining of shortness of breath, left foot pain and back pain. No acute events overnight Tolerating diet, no nausea, no vomiting, no abdominal pain. Review of Systems All other system reviewed and are negative Physical Exam Vital Signs: Vital Signs: Last Vital Signs Temp 97.3 F 03/31/24 07:24 Pulse 60 03/31/24 07:24 Resp 13 03/31/24 07:24 BP 114/63 03/31/24 07:24 Pulse Ox 97 03/31/24 07:24 O2 Del Method BiPAP 03/31/24 07:24 O2 Flow Rate 2 03/30/24 13:00 FiO2 21 03/30/24 14:00 BMI result Body Mass Index 30.9 Const: Other: General sitting comfortably, appears short of breath. Anicteric sclera Neck no JVD. CVS regular rate rhythm, Respiratory lungs bilateral expiratory wheeze, no crackles. Gastrointestinal abdomen soft, non tender, bowel sounds audible, Extremities open wound left plantar surface of foot, serosanguineous discharge noted, no surrounding erythema of fluctuation , no pedal pulses Neuro moving all 4 extremity, speech clear. Psych appropriate affect Objective Data Active Medications Acetaminophen (Acetaminophen 325 Mg Tablet) 975 mg PO TID [facility] Last Admin: 03/31/24 14:25 Dose: 975 mg Documented By: ALEX Albuterol Sulfate (Albuterol Sulfate (0.083%) 2.5 Mg/3 Ml Vial.Neb) 2.5 mg INHALE RQ6H PRN PRN Reason: Shortness Of Breath Or Wheezing Albuterol/Ipratropium (Albuterol/Iprat 2.5/0.5mg 3 Ml Ampul.Neb) 3 ml INHALE RQ4H WHILE AWAKE [facility] Last Admin: 03/31/24 11:04 Dose: Not Given Documented By: MAIKOL Non-Admin Reason: See Note Amiodarone HCl (Amiodarone Hcl 200 Mg Tablet) 200 mg PO DAILY [facility] Last Admin: 03/31/24 08:18 Dose: 200 mg Documented By: ALEX Fluticasone/Vilanterol (Fluticasone/Vilanterol 200/25 Blst.W.Dev) 1 puff INHALE RDAILY [facility] Glucose (Glucose Gel 15 Gm Gel..Gram.) 15 gm PO Q15M PRN; Protocol PRN Reason: per Hypoglycemia Standing Ord. Heparin Sodium (Porcine) (Heparin Sodium,Porcine 5,000 Unit/Ml Vial) 5,000 unit INTRACATH MOWEFR@1645 [facility] Dextrose (D10) 250 mls @ 750 mls/hr IV Q15M PRN; Protocol PRN Reason: per Hypoglycemia Standing Ord. Last Infusion: 03/30/24 12:41 Dose: Infused Documented By: FABRICIO Clindamycin Phosphate (Cleocin) 900 mg in 50 mls @ 50 mls/hr IV TID@0400,1200,2000 [facility] Last Admin: 03/31/24 14:25 Dose: 50 mls/hr Documented By: ALEX Insulin Human Lispro (Insulin Lispro 100 Unit/Ml 3 Ml Vial) 0 unit SUBCUT QIDACHS [facility]; Protocol Last Admin: 03/31/24 14:32 Dose: 4 unit Documented By: ALEX Morphine Sulfate (Morphine Sulfate 2 Mg/Ml Cartridge) 1 mg IVPUSH Q3H PRN; Protocol PRN Reason: Pain, Severe (Pain Scale 7-10) Last Admin: 03/31/24 10:47 Dose: 1 mg Documented By: ALEX Omeprazole (Omeprazole 20 Mg Capsule.Dr) 20 mg PO DAILY@0630 [facility] Last Admin: 03/31/24 06:18 Dose: Not Given Documented By: SHAYLA Non-Admin Reason: Patient Refused Oxycodone HCl (Oxycodone Hcl Immed Release 5 Mg Tablet) 2.5 mg PO Q4H PRN PRN Reason: wound/feet pain Last Admin: 03/31/24 14:33 Dose: 2.5 mg Documented By: ALEX Sertraline HCl (Sertraline Hcl 25 Mg Tablet) 25 mg PO DAILY [facility] Sodium Chloride (0.9 % Sodium Chloride Flush 3 Ml Syringe) 3 ml IVFLUSH QSHIFT [facility] Last Admin: 03/31/24 08:20 Dose: 3 ml Documented By: ALEX Labs 03/31/24 06:20 03/31/24 06:20 Labs: Laboratory Results - last 24 hr 03/30/24 03/30/24 03/31/24 15:42 19:31 06:20 MCV 71.7 L MCH 22.3 L MCHC 31.2 RDW 18.1 H Plt Count 145 L MPV 10.4 Immature Gran % (Auto) 1.2 H Neut % (Auto) 80.5 H Lymph % (Auto) 10.0 L [place] % (Auto) 8.0 Eos % (Auto) 0.2 Baso % (Auto) 0.1 Lymph # (Auto) 1.3 [place] # (Auto) 1.0 Eos # (Auto) 0.0 Baso # (Auto) 0.0 Abs Immat Gran (auto) 0.15 H Absolute Neuts (auto) 10.5 H Absolute Nucleated RBC 0.920 H Nucleated RBC % (auto) 7.1 H VBG pH VBG pCO2 VBG pO2 VBG HCO3 VBG O2 Saturation VBG Base Excess Anion Gap 18 Estim Creat Clear Calc 44.7 Estimated GFR 32 POC Glucose 95 177 H Random Glucose 272 H Calcium 7.3 L Phosphorus 5.6 H Magnesium 2.7 H Total Bilirubin 1.5 H AST 90 H ALT 327 H Alkaline Phosphatase 203 H Total Protein 5.9 L Albumin 3.4 L 03/31/24 03/31/24 03/31/24 06:25 08:16 14:24 MCV MCH MCHC RDW Plt Count MPV Immature Gran % (Auto) Neut % (Auto) Lymph % (Auto) [place] % (Auto) Eos % (Auto) Baso % (Auto) Lymph # (Auto) [place] # (Auto) Eos # (Auto) Baso # (Auto) Abs Immat Gran (auto) Absolute Neuts (auto) Absolute Nucleated RBC Nucleated RBC % (auto) VBG pH 7.39 VBG pCO2 41 VBG pO2 86 VBG HCO3 25 VBG O2 Saturation 97.0 VBG Base Excess 0.5 Anion Gap Estim Creat Clear Calc Estimated GFR POC Glucose 291 H 209 H Random Glucose Calcium Phosphorus Magnesium Total Bilirubin AST ALT Alkaline Phosphatase Total Protein Albumin Assessment and Plan (1) Acute on chronic HFrEF (heart failure with reduced ejection fraction): Status: Acute (2) Metabolic encephalopathy: Status: Acute Plan 58-year-old male with a history of atrial fibrillation on Eliquis, ischemic cardiomyopathy status post AICD, EF 15%, coronary artery disease status post PCI, COPD, KIMANI on CPAP among others who presents to the emergency department with shortness of breath and redness of his foot found to have COPD exacerbation, diabetic foot ulcer, atrial fibrillation with rapid ventricular response, hyperglycemia Acute kidney injury with AG metabolic acidosis ATN Multifactorial due to vanco toxicity, hypotension and diuretics Transferred to ICU on 03/29 for urgent hemodialysis, receive dialysis on 03/29 and 03/30 Creatinine trending down will have repeat hemodialysis today to remove fluid Being followed closely by Nephrology case discussed with Dr. Espinosa Acute metabolic encephalopathy likely due to uremia Resolved Sepsis due to Left diabetic foot wound Sepsis resolved, persistent left foot pain, blood cultures x2 neg CT showed soft tissue swelling, synovitis, ? Phlegmon versus early abscess, necrotizing fasciitis> seen by general surgery, no plan for surgery IV vancomycin and cefepime stopped. Continue IV Clindamycin (started 03/24/24) Arterial doppler showing delayed arterial upstroke suggesting inflow disease> seen by Dr. Chatman recommend outpatient follow-up with Dr. Chapman who has done prior vascular procedures WBC scan was ordered but procedure canceled due to urgent hemodialysis Nephro recommend to avoid any further imaging studies for now Consult ID Acute respiratory failure with hypoxia due to exacerbation of pulmonary edema , with history of ischemic cardiomyopathy EF 15%, moderately increased right ventricular cavity size and decreased right ventricular systolic function And moderate to severe pulmonary hypertension. diuretics on hold as above requiring hemodialysis Wean O2 as tolerated not on home O2 Being followed by Cardiology COPD s/p treatment for acute COPD exacerbation,will place on scheduled and as needed breathing treatment Hold steroids continue Breo Atrial fibrillation with rapid ventricular response> resolved Continue amiodarone, metoprolol on hold stable blood pressure and pulse Will discuss medications with Cardiology Eliquis was held due to elevated INR of 3 Will resume Eliquis IDDM with hyperglycemia blood sugar in 200s, continue insulin sliding scale and resume Lantus 10 units, home dose 17 units at bedtime, follow blood sugars History of pericardial effusion seen by Cardiology repeat bedside echocardiogram on 03/29 showed small pericardial effusion KIMANI CPAP at bedtime In my clinical judgment patient requires continued inpatient hospitalization for acute kidney injury requiring hemodialysis and close follow-up for CHF/left foot infection. Quality Stroke Does the patient have a stroke diagnosis?: No VTE Prior VTE?: No VTE Risk Level:: Medical - moderate - high VTE Device Contraindication: N/A - Device Ordered VTE Drug Contraindication: N/A - Med Ordered
[2024-03-31] MEDS: Albuterol/Iprat 2.5/0.5MG 3 ML AMPUL.NEB INHALE ×2 (15:18→19:59)
[2024-03-31 15:36] LABS: Glucose, Whole Blood 227 mg/dL (60-115)
[2024-03-31 20:12] LABS: Glucose, Whole Blood 278 mg/dL (60-115)
[2024-03-31] MEDS: Apixaban 5 MG TABLET PO (21:29)
[2024-03-31] MEDS: Insulin Glargine,Hum.rec.anlog 100 UNIT/ML 10 ML VIAL 10 UNIT SUBCUT (21:36)
--- NOTE | 2024-03-31 22:19 | W.PM.IDCN ---
History of Present Illness Data of Consult Service Date: 03/31/24 Requesting physician: Mari Gómez Primary Care Provider: Phi Crisostomo [facility]- HPI Reason for consult: left foot infection,renal failure He has left foot discomfort. He has seen Dr Chatman of Vascular and is not scheduled for any operative procedures at this time. There is concern over necrotizing fasciitis. He has started Clindamycin on 03/24; He has BPH and COPD. Review of Systems Musculoskeletal: Musculoskeletal: Reports arthralgias PMFSH Past Medical History Medical History Acute on chronic HFrEF (heart failure with reduced ejection fraction) History of osteomyelitis 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 Diverticulosis Tubular adenoma of colon (~2017) History of COVID-19 Nicotine dependence, cigarettes, uncomplicated Hypertensive retinopathy Microhematuria ICD (implantable cardioverter-defibrillator) in place COPD (chronic obstructive pulmonary disease) KIMANI (obstructive sleep apnea) Sleep apnea CAD (coronary artery disease) Paroxysmal atrial fibrillation (~2016) Family History Family History Father Atherosclerosis Mother Cerebral aneurysm Maternal Grandmother Unknown family medical history Mother Cerebral hemorrhage Father Coronary artery disease Family history: reviewed and not pertinent Surgical History Surgical History History of amputation of left great toe History of cardiac cath History of ankle surgery History of implantable cardiac defibrillator (ICD) History of colonoscopy History of heart artery stent History of cardiac radiofrequency ablation History of cardioversion History of esophagogastroduodenoscopy History of umbilical hernia History of inguinal hernia Social History Social History Household Members: None Housing: House Are you a primary respiratory care assistant to a significant other at home: No Do you presently have visiting nurse or other home services: Yes Alcohol intake: former Comment: sitter at bedside Patient Tobacco Use Status: Current everyday Tobacco user Tobacco use type: Cigarette Cigarette Packs Per Day: 1 Years Smoked: (current smoker - onset 14yo, 1ppd x 43yrs, 40pyh) Smoked in Last 30 Days: Yes e-Cigarette/Vaping Use: Never Used Second Hand Smoke Exposure: Yes Use of substances other than those prescribed or required for medical reasons: No Currently Displaying Signs/Symptoms of Drug Intoxication Withdrawal: No Any prior treatment program specific to substance use: No Have you been hit, kicked, punched, or otherwise hurt by someone within the past year? If so, by whom?: No Do you feel safe in your current relationship?: Yes Is there a partner from a previous relationship who is making you feel unsafe now?: No Are you made to feel afraid or neglected: No Advance Directives: Yes Advance Directives on File: Yes Advance Directives Date on File: 07/09/21 Do you have a plan to hurt others: No Plan service: No Current occupational status: unemployed and disabled Current occupation: rt handed Cognitive needs: No Hearing needs: No Vision needs: Yes Meds Allergies Allergy/AdvReac Type Severity Reaction Status Date / Time No Known Allergies Allergy Verified 03/23/24 11:55 [No Known Allergies*] Active Medications: Current Medications Acetaminophen (Acetaminophen 325 Mg Tablet) 975 mg PO TID [facility] Last Admin: 03/31/24 21:29 Dose: 975 mg Albuterol Sulfate (Albuterol Sulfate (0.083%) 2.5 Mg/3 Ml Vial.Neb) 2.5 mg INHALE RQ6H PRN PRN Reason: Shortness Of Breath Or Wheezing Albuterol/Ipratropium (Albuterol/Iprat 2.5/0.5mg 3 Ml Ampul.Neb) 3 ml INHALE RQ4H WHILE AWAKE [facility] Last Admin: 03/31/24 19:59 Dose: 3 ml Amiodarone HCl (Amiodarone Hcl 200 Mg Tablet) 200 mg PO DAILY [facility] Last Admin: 03/31/24 08:18 Dose: 200 mg Apixaban (Apixaban 5 Mg Tablet) 5 mg PO BID [facility] Last Admin: 03/31/24 21:29 Dose: 5 mg Fluticasone/Vilanterol (Fluticasone/Vilanterol 200/25 Blst.W.Dev) 1 puff INHALE RDAILY [facility] Glucose (Glucose Gel 15 Gm Gel..Gram.) 15 gm PO Q15M PRN; Protocol PRN Reason: per Hypoglycemia Standing Ord. Heparin Sodium (Porcine) (Heparin Sodium,Porcine 5,000 Unit/Ml Vial) 5,000 unit INTRACATH MOWEFR@1645 [facility] Last Admin: 03/31/24 16:49 Dose: Not Given Dextrose (D10) 250 mls @ 750 mls/hr IV Q15M PRN; Protocol PRN Reason: per Hypoglycemia Standing Ord. Last Infusion: 03/30/24 12:41 Dose: Infused Clindamycin Phosphate (Cleocin) 900 mg in 50 mls @ 50 mls/hr IV TID@0400,1200,2000 [facility] Last Admin: 03/31/24 21:39 Dose: 50 mls/hr Insulin Glargine (Insulin Glargine,Hum.Rec.Anlog 100 Unit/Ml 10 Ml Vial) 10 unit SUBCUT BEDTIME [facility] Last Admin: 03/31/24 21:36 Dose: 10 unit Insulin Human Lispro (Insulin Lispro 100 Unit/Ml 3 Ml Vial) 0 unit SUBCUT QIDACHS [facility]; Protocol Last Admin: 03/31/24 21:36 Dose: 6 unit Morphine Sulfate (Morphine Sulfate 2 Mg/Ml Cartridge) 1 mg IVPUSH Q3H PRN; Protocol PRN Reason: Pain, Severe (Pain Scale 7-10) Last Admin: 03/31/24 21:31 Dose: 1 mg Omeprazole (Omeprazole 20 Mg Capsule.Dr) 20 mg PO DAILY@0630 [facility] Last Admin: 03/31/24 06:18 Dose: Not Given Oxycodone HCl (Oxycodone Hcl Immed Release 5 Mg Tablet) 2.5 mg PO Q4H PRN PRN Reason: wound/feet pain Last Admin: 03/31/24 21:30 Dose: 2.5 mg Sertraline HCl (Sertraline Hcl 25 Mg Tablet) 25 mg PO DAILY [facility] Sodium Chloride (0.9 % Sodium Chloride Flush 3 Ml Syringe) 3 ml IVFLUSH QSHIFT [facility] Last Admin: 03/31/24 21:39 Dose: 3 ml Home Medications ?Medication ?Instructions ?Recorded ?Confirmed ?Last Taken ?Type acetaminophen 325 mg tablet 650 mg PO Q6H PRN Pain, Moderate 11/18/23 03/23/24 Unknown History colchicine 0.6 mg tablet 0.6 mg PO DAILY 11/18/23 03/23/24 11/16/23 History insulin glargine 100 unit/mL (3 17 unit subcut BEDTIME 11/18/23 03/23/24 03/22/24 History mL) subcutaneous pen (Lantus Solostar U-100 Insulin) insulin lispro 100 unit/mL 7 unit subcut TIDAC 11/18/23 03/23/24 03/22/24 History subcutaneous solution metoprolol succinate 100 mg 100 mg PO DAILY 12/20/23 03/23/24 03/22/24 History tablet,extended release 24 hr torsemide 20 mg tablet 20 mg PO Q48H 12/20/23 03/23/24 Unknown History albuterol sulfate 2.5 mg/3 mL 2.5 mg inhalation Q6H PRN 03/23/24 03/23/24 Unknown History (0.083 %) solution for nebulization Shortness Of Breath Or Wheezing apixaban 5 mg tablet (Eliquis) 5 mg PO BID 03/23/24 03/23/24 Unknown History empagliflozin 10 mg tablet 10 mg PO DAILY 03/23/24 03/23/24 03/22/24 History (Jardiance) fluticasone propionate 45 2 puff inhalation BID 03/23/24 03/23/24 Unknown History mcg-salmeterol 21 mcg/actuation HFA inhaler (Advair HFA) sennosides 8.6 mg tablet (senna) 17.2 mg PO BEDTIME 03/23/24 03/23/24 Unknown History Physical Exam Vital Signs: Vital Signs: Last Vital Signs Temp 98.1 F 03/31/24 19:26 Pulse 60 03/31/24 20:02 Resp 18 03/31/24 20:02 BP 128/62 03/31/24 19:26 Pulse Ox 97 03/31/24 19:26 O2 Del Method Room Air 03/31/24 19:26 O2 Flow Rate 2 03/30/24 13:00 FiO2 21 03/30/24 14:00 BMI result Body Mass Index 30.9 Extrem: Other: left foot darkness around 1st,2nd MT and toe diminished pulses ,plus1 Results Labs 03/31/24 06:20 03/31/24 06:20 Labs: Short CBC 03/31/24 Range/Units 06:20 WBC 13.0 H (4.8-10.8) X10*3/uL Hgb 10.1 L (14.0-18.0) g/dl Hct 32.4 L (42.0-52.0) % Plt Count 145 L (160-400) X10*3/uL BMP 03/31/24 06:20 Sodium 137 Potassium 3.5 D Chloride 100 Carbon Dioxide 23 BUN 66 H Creatinine 2.12 H Calcium 7.3 L Liver Function 03/31/24 Range/Units 06:20 Total Bilirubin 1.5 H (0.0-1.0) mg/dL AST 90 H (5-37) U/L ALT 327 H (0-40) U/L Alkaline Phosphatase 203 H (39-117) U/L Albumin 3.4 L (3.5-5.0) g/dL Microbiology Microbiology Results: Microbiology 03/26/24 22:43 Blood - Venous Blood Culture - Preliminary No growth after 48 hours. 03/26/24 22:43 Blood - Venous Blood Culture - Preliminary No growth after 48 hours. 03/23/24 12:31 Blood - Venous Blood Culture - Final No growth after 5 days. 03/23/24 12:28 Blood - Venous Blood Culture - Final No growth after 5 days. Assessment and Plan (1) Acute on chronic HFrEF (heart failure with reduced ejection fraction): Status: Acute (2) Metabolic encephalopathy: Status: Acute (3) PAD (peripheral artery disease): Status: Acute Plan Necrotic appearing foot at risk Would continue Vancomycin post HD 1 gram 6 weeks. Stop Clindamycin tomorrow ( short term to decrease bacterial burden)/
[2024-04-01] VITALS (10 sets, daily range): BP systolic 108–161; BP diastolic 62–80; PULSE 66–96; RESP 14–18; TEMP 36–36.6; O2SAT 69–99
[2024-04-01] MEDS: oxyCODONE HCl Immed Release 5 MG TABLET 2.5 MG PO ×2 (02:52→06:38)
[2024-04-01] MEDS: Clindamycin Phosphate/D5W 900 MG/50 ML PIGGYBACK 50 MG IV (04:09)
[2024-04-01] MEDS: Morphine Sulfate 2 MG/ML CARTRIDGE 1 MG IVPUSH ×3 (04:09→23:38)
[2024-04-01] MEDS: Omeprazole 20 MG CAPSULE.DR PO (06:38)
[2024-04-01] MEDS: Albuterol/Iprat 2.5/0.5MG 3 ML AMPUL.NEB INHALE ×3 (07:15→19:26)
[2024-04-01 08:06] LABS: Glucose, Whole Blood 283 mg/dL (60-115)
[2024-04-01] MEDS: Insulin Lispro 100 UNIT/ML 3 ML VIAL SUBCUT ×3 (08:59→23:28)
[2024-04-01] MEDS: Amiodarone HCL 200 MG TABLET PO (09:00)
[2024-04-01] MEDS: Apixaban 5 MG TABLET PO ×2 (09:00→23:27)
[2024-04-01] MEDS: 0.9 % Sodium Chloride Flush 3 ML SYRINGE IVFLUSH ×3 (09:01→23:29)
[2024-04-01] MEDS: Acetaminophen 325 MG TABLET 975 MG PO ×3 (09:10→23:27)
[2024-04-01] MEDS: Sertraline HCL 25 MG TABLET PO (09:11)
[2024-04-01 09:43] LABS: Anion Gap 15 (12-20); Blood Urea Nitrogen 51 mg/dL (9-16); Calcium 8.1 mg/dL (8.4-10.2); Carbon Dioxide 26 mmol/L (22-29); Chloride 100 mmol/L (96-108); Estimated Glomerular Filt Rate 33; Glucose Random 281 mg/dL (60-115); Potassium 3.3 mmol/L (3.3-5.1); Sodium 138 mmol/L (135-145)
--- NOTE | 2024-04-01 10:59 | PM.PNCARD ---
Subjective Subjective Date of Service: 04/01/24 Interval history: Seen examined at bedside. Clinically improving. Making urine. Physical Exam Vital Signs: Last Vital Signs Temp 97.8 F 04/01/24 08:00 Pulse 70 04/01/24 08:00 Resp 18 04/01/24 08:00 BP 129/65 04/01/24 08:00 Pulse Ox 96 04/01/24 08:00 O2 Del Method Room Air 04/01/24 08:00 O2 Flow Rate 2 03/30/24 13:00 FiO2 21 03/30/24 14:00 BMI result Body Mass Index 30.9 GENERAL APPEARANCE: In no acute distress. NECK: ++ JVD. SKIN: no suspicious lesions, warm and dry. HEART: no murmurs, regular rate and rhythm. LUNGS: No wheezes. Few crackles on bases. ABDOMEN: soft, nontender. EXTREMITIES: Foot wound no obvious discharge. PERIPHERAL PULSES: equal. NEUROLOGIC: No gross deficits, Objective Labs and Meds 03/31/24 06:20 04/01/24 09:15 Lab results: Laboratory Results - last 24 hr 03/31/24 03/31/24 03/31/24 14:24 15:21 19:50 Sodium Potassium Chloride Carbon Dioxide Anion Gap BUN Creatinine Estim Creat Clear Calc Estimated GFR POC Glucose 209 H 227 H 278 H Random Glucose Calcium 04/01/24 04/01/24 07:58 09:15 Sodium 138 Potassium 3.3 Chloride 100 Carbon Dioxide 26 Anion Gap 15 BUN 51 H Creatinine 2.06 H Estim Creat Clear Calc 46.0 Estimated GFR 33 POC Glucose 283 H Random Glucose 281 H Calcium 8.1 L D Progress Note: A&P Assessment and plan (1) Acute on chronic HFrEF (heart failure with reduced ejection fraction): Status: Acute (2) Metabolic encephalopathy: Status: Acute (3) DECLAN (acute kidney injury): Status: Acute Plan 58-year-old gentleman with known nonischemic cardiomyopathy who presented with foot infection and acute kidney injury. Initially was felt to be not in heart failure. Progressive clinical worsening and mental status changes with acute kidney injury and uremia. He was hypotensive and was transferred to ICU. He did not require any pressors. He had hemodialysis sessions with ultrafiltration with significant improvement in mental status and overall hemodynamics. He is nonoliguric. Adding Lasix 80 mg once a day. Depending on his blood pressure we will add hydralazine and isordil. We will repeat echocardiography next week to see if his ejection fraction is changing as the metabolic issues are definitely improved. No beta-lion or Cardizem should be given to him. In sinus rhythm with amiodarone currently. Continue Eliquis and amiodarone. Thank you for allowing me to participate in the care of your patient. Please feel free to contact me if you have any questions. Time Spent With Patient Time: Total time managing care of this patient today ____ minutes. Progress Note: Quality Stroke Does the patient have a stroke diagnosis?: No Procedures Date of Service Date of Service: 04/01/24
--- NOTE | 2024-04-01 11:15 | P.PNIM_ITS ---
Subjective Subjective Date of Service: 04/01/24 Interval History: Feels good today, no sob, or other complaints Review of Systems All other system reviewed and are negative Physical Exam 2 Vital Signs: Vital Signs: Last Vital Signs Temp 97.8 F 04/01/24 08:00 Pulse 70 04/01/24 08:00 Resp 18 04/01/24 08:00 BP 129/65 04/01/24 08:00 Pulse Ox 96 04/01/24 08:00 O2 Del Method Room Air 04/01/24 08:00 O2 Flow Rate 2 03/30/24 13:00 FiO2 21 03/30/24 14:00 BMI result Body Mass Index 30.9 GENERAL APPEARANCE: In no acute distress. NECK: ++ JVD. SKIN: no suspicious lesions, warm and dry. HEART: no murmurs, regular rate and rhythm. LUNGS: No wheezes. Few crackles on bases. ABDOMEN: soft, nontender. EXTREMITIES: Foot wound no obvious discharge. PERIPHERAL PULSES: equal. NEUROLOGIC: No gross deficits, Objective Data Active Medications Acetaminophen (Acetaminophen 325 Mg Tablet) 975 mg PO TID [facility] Last Admin: 04/01/24 09:10 Dose: 975 mg Documented By: MENDEL Albuterol Sulfate (Albuterol Sulfate (0.083%) 2.5 Mg/3 Ml Vial.Neb) 2.5 mg INHALE RQ6H PRN PRN Reason: Shortness Of Breath Or Wheezing Albuterol/Ipratropium (Albuterol/Iprat 2.5/0.5mg 3 Ml Ampul.Neb) 3 ml INHALE RQ4H WHILE AWAKE [facility] Last Admin: 04/01/24 07:15 Dose: 3 ml Documented By: DAVID Amiodarone HCl (Amiodarone Hcl 200 Mg Tablet) 200 mg PO DAILY [facility] Last Admin: 04/01/24 09:00 Dose: 200 mg Documented By: MENDEL Apixaban (Apixaban 5 Mg Tablet) 5 mg PO BID [facility] Last Admin: 04/01/24 09:00 Dose: 5 mg Documented By: MENDEL Clindamycin HCl (Clindamycin Hcl 300 Mg Capsule) 300 mg PO Q6H [facility] Fluticasone/Vilanterol (Fluticasone/Vilanterol 200/25 Blst.W.Dev) 1 puff INHALE RDAILY [facility] Last Admin: 04/01/24 07:17 Dose: Not Given Documented By: DAVID Non-Admin Reason: pt on cpap Furosemide (Furosemide 100 Mg/10 Ml Vial) 80 mg IVPUSH DAILY [facility]; Protocol Glucose (Glucose Gel 15 Gm Gel..Gram.) 15 gm PO Q15M PRN; Protocol PRN Reason: per Hypoglycemia Standing Ord. Heparin Sodium (Porcine) (Heparin Sodium,Porcine 5,000 Unit/Ml Vial) 5,000 unit INTRACATH MOWEFR@1645 [facility] Last Admin: 03/31/24 16:49 Dose: Not Given Documented By: ALEX Non-Admin Reason: GIVEN IN DIALYSIS Dextrose (D10) 250 mls @ 750 mls/hr IV Q15M PRN; Protocol PRN Reason: per Hypoglycemia Standing Ord. Last Infusion: 03/30/24 12:41 Dose: Infused Documented By: FABRICIO Insulin Glargine (Insulin Glargine,Hum.Rec.Anlog 100 Unit/Ml 10 Ml Vial) 10 unit SUBCUT BEDTIME [facility] Last Admin: 03/31/24 21:36 Dose: 10 unit Documented By: ALIE Insulin Human Lispro (Insulin Lispro 100 Unit/Ml 3 Ml Vial) 0 unit SUBCUT QIDACHS [facility]; Protocol Last Admin: 04/01/24 08:59 Dose: 6 unit Documented By: MENDEL Morphine Sulfate (Morphine Sulfate 2 Mg/Ml Cartridge) 1 mg IVPUSH Q3H PRN; Protocol PRN Reason: Pain, Severe (Pain Scale 7-10) Last Admin: 04/01/24 04:09 Dose: 1 mg Documented By: ALIE Omeprazole (Omeprazole 20 Mg Capsule.) 20 mg PO DAILY@0630 [facility] Last Admin: 04/01/24 06:38 Dose: 20 mg Documented By: ALIE Oxycodone HCl (Oxycodone Hcl Immed Release 5 Mg Tablet) 2.5 mg PO Q4H PRN PRN Reason: wound/feet pain Last Admin: 04/01/24 06:38 Dose: 2.5 mg Documented By: ALIE Sertraline HCl (Sertraline Hcl 25 Mg Tablet) 25 mg PO DAILY [facility] Last Admin: 04/01/24 09:11 Dose: 25 mg Documented By: MENDEL Sodium Chloride (0.9 % Sodium Chloride Flush 3 Ml Syringe) 3 ml IVFLUSH QSHIFT [facility] Last Admin: 04/01/24 09:01 Dose: 3 ml Documented By: MENDEL Labs 03/31/24 06:20 04/01/24 09:15 Labs: Laboratory Results - last 24 hr 03/31/24 03/31/24 03/31/24 14:24 15:21 19:50 Anion Gap Estim Creat Clear Calc Estimated GFR POC Glucose 209 H 227 H 278 H Random Glucose Calcium 04/01/24 04/01/24 07:58 09:15 Anion Gap 15 Estim Creat Clear Calc 46.0 Estimated GFR 33 POC Glucose 283 H Random Glucose 281 H Calcium 8.1 L D Microbiology Microbiology Results: Microbiology 03/26/24 22:43 Blood Culture - Final Blood - Venous No growth after 5 days. 03/26/24 22:43 Blood Culture - Final Blood - Venous No growth after 5 days. Assessment and Plan (1) Acute on chronic HFrEF (heart failure with reduced ejection fraction): Status: Acute (2) Metabolic encephalopathy: Status: Acute Plan 58/F w/ AF on Eliquis, ischemic cardiomyopathy status post AICD, EF 15%, coronary artery disease status post PCI, COPD, KIMANI on CPAP among others who presents to the emergency department with shortness of breath and redness of his foot found to have COPD exacerbation, diabetic foot ulcer, atrial fibrillation with rapid ventricular response, hyperglycemia. Hospital course complicated DECLAN resulting need for hemodialysis Acute kidney injury with AG metabolic acidosis, d/t ATN of multifactorial etiology (hypotension, vanco toxcity and diuretics) -Transferred to ICU on 03/29 for urgent hemodialysis, receive dialysis on 03/29 and 03/30 -Cr has trended down and Nephro is planning on removing dialysis line on Wednesday Acute metabolic encephalopathy likely due to uremia -Resolved Sepsis due to Left diabetic foot wound Sepsis resolved, persistent left foot pain, blood cultures x2 neg CT showed soft tissue swelling, synovitis, ? Phlegmon versus early abscess, necrotizing fasciitis> seen by general surgery, no plan for surgery IV vancomycin and cefepime stopped. Has been on Clinda since 03/24. ID recommend stopping Clinda today. and Vancomycin after dialysis for 6 weeks Arterial doppler showing delayed arterial upstroke suggesting inflow disease> seen by Dr. Chatman recommend outpatient follow-up with Dr. Chapman who has done prior vascular procedures WBC scan was ordered but procedure canceled due to urgent hemodialysis Nephro recommend to avoid any further imaging studies for now Acute respiratory failure with hypoxia due to exacerbation of pulmonary edema , with history of ischemic cardiomyopathy EF 15%, moderately increased right ventricular cavity size and decreased right ventricular systolic function And moderate to severe pulmonary hypertension. diuretics on hold as above requiring hemodialysis Wean O2 as tolerated not on home O2 Being followed by Cardiology COPD s/p treatment for acute COPD exacerbation,will place on scheduled and as needed breathing treatment Hold steroids continue Breo Atrial fibrillation with rapid ventricular response> resolved Continue amiodarone, metoprolol on hold stable blood pressure and pulse continue eliquis IDDM with hyperglycemia blood sugar in 200s, continue insulin sliding scale and Lantus 114 units, home dose 17 units at bedtime, follow blood sugars History of pericardial effusion seen by Cardiology repeat bedside echocardiogram on 03/29 showed small pericardial effusion KIMANI CPAP at bedtime In my clinical judgment patient requires continued inpatient hospitalization for acute kidney injury requiring hemodialysis and close follow-up for CHF/left foot infection. Quality Stroke Does the patient have a stroke diagnosis?: No VTE Prior VTE?: No VTE Risk Level:: Medical - moderate - high VTE Device Contraindication: N/A - Device Ordered VTE Drug Contraindication: N/A - Med Ordered
[2024-04-01 11:57] LABS: Glucose, Whole Blood 255 mg/dL (60-115)
--- NOTE | 2024-04-01 12:37 | PM.EVENT ---
Event Note Date of Service: 04/01/24 Event Note: if leaves without need for ongoing HD would give IV Daptomycin 6mg/kg daily daily as well as IV Ertapenem 1 g daily and weekly CBC and creatinine and CK Time Spent With Patient Time: Total time managing care of this patient today ____ minutes.
[2024-04-01 16:21] LABS: Glucose, Whole Blood 411 mg/dL (60-115)
[2024-04-01] MEDS: DAPTOmycin 600 MG in 0.9 % Sodium Chloride 50 ML 106.85 MG IV (18:07)
[2024-04-01 20:36] LABS: Glucose, Whole Blood 279 mg/dL (60-115)
[2024-04-01 23:26] LABS: Glucose, Whole Blood 313 mg/dL (60-115)
[2024-04-01] MEDS: Insulin Glargine,Hum.rec.anlog 100 UNIT/ML 10 ML VIAL 14 UNIT SUBCUT (23:28)
[2024-04-02] VITALS (11 sets, daily range): BP systolic 94–148; BP diastolic 56–82; PULSE 75–118; RESP 14–20; TEMP 35.8–36.7; O2SAT 82–100
--- NOTE | 2024-04-02 | ECG_ITS ---
Test Reason : multiple pvc Blood Pressure : / mmHG Vent. Rate : 109 BPM Atrial Rate : 105 BPM P-R Int : 000 ms QRS Dur : 124 ms QT Int : 304 ms P-R-T Axes : 000 019 148 degrees QTc Int : 409 ms Atrial fibrillation with rapid ventricular response with premature ventricular or aberrantly conducted complexes Non-specific intra-ventricular conduction delay Nonspecific T wave abnormality Abnormal ECG When compared with ECG of 28-MAR-2024 10:52, Atrial fibrillation with rapid ventricular response is now Present Questionable change in QRS duration Referred By: Concepcion Sullivan Electronically Signed By:BROOKE YOUNG
[2024-04-02] MEDS: oxyCODONE HCl Immed Release 5 MG TABLET 2.5 MG PO ×3 (03:16→22:39)
[2024-04-02] MEDS: Morphine Sulfate 2 MG/ML CARTRIDGE 1 MG IVPUSH ×3 (03:17→22:39)
[2024-04-02] MEDS: Amiodarone HCL 200 MG TABLET PO (06:25)
[2024-04-02] MEDS: Omeprazole 20 MG CAPSULE.DR PO (06:25)
[2024-04-02 07:37] LABS: Glucose, Whole Blood 257 mg/dL (60-115)
[2024-04-02] MEDS: Albuterol/Iprat 2.5/0.5MG 3 ML AMPUL.NEB INHALE ×3 (07:38→15:07)
[2024-04-02] MEDS: Fluticasone/Vilanterol 200/25 BLST.W.DEV 1 PUFF INHALE (07:38)
[2024-04-02] MEDS: Acetaminophen 325 MG TABLET 975 MG PO ×3 (08:26→22:38)
[2024-04-02] MEDS: Insulin Lispro 100 UNIT/ML 3 ML VIAL SUBCUT ×4 (08:27→22:40)
[2024-04-02] MEDS: Sertraline HCL 25 MG TABLET PO (08:27)
[2024-04-02] MEDS: Apixaban 5 MG TABLET PO ×2 (08:27→22:38)
[2024-04-02] MEDS: Furosemide 100 MG/10 ML VIAL 80 MG IVPUSH ×2 (08:38→18:07)
[2024-04-02] MEDS: 0.9 % Sodium Chloride Flush 3 ML SYRINGE IVFLUSH ×2 (08:38→18:08)
[2024-04-02 10:34] LABS: Anion Gap 14 (12-20); Blood Urea Nitrogen 44 mg/dL (9-16); Carbon Dioxide 27 mmol/L (22-29); Chloride 100 mmol/L (96-108); Creatinine Clr Calc Pharmacy 61.1; Estimated Glomerular Filt Rate 46; Magnesium 2.4 mg/dL (1.6-2.6); Potassium 3.6 mmol/L (3.3-5.1); Sodium 137 mmol/L (135-145)
[2024-04-02 10:42] LABS: Glucose Random 382 mg/dL (60-115)
--- NOTE | 2024-04-02 11:02 | PM.PNCARD ---
Subjective Subjective Date of Service: 04/02/24 Interval history: Seen examined at bedside. Feeling better. Creatinine improving. He is nonoliguric. Physical Exam Vital Signs: Last Vital Signs Temp 97.5 F 04/02/24 07:32 Pulse 88 04/02/24 07:39 Resp 14 04/02/24 07:39 BP 129/82 04/02/24 07:32 Pulse Ox 97 04/02/24 07:32 O2 Del Method CPAP 04/02/24 07:32 O2 Flow Rate 2 03/30/24 13:00 FiO2 21 03/30/24 14:00 BMI result Body Mass Index 30.9 GENERAL APPEARANCE: In no acute distress. NECK: ++ JVD. SKIN: no suspicious lesions, warm and dry. HEART: no murmurs, irregular rate and rhythm. LUNGS: Clear to auscultation. ABDOMEN: soft, nontender. EXTREMITIES: Foot wound in dressing. PERIPHERAL PULSES: equal. NEUROLOGIC: No gross deficits, Objective Labs and Meds 03/31/24 06:20 04/02/24 09:41 Lab results: Laboratory Results - last 24 hr 04/01/24 04/01/24 04/01/24 11:49 16:17 20:32 Sodium Potassium Chloride Carbon Dioxide Anion Gap BUN Creatinine Estim Creat Clear Calc Estimated GFR POC Glucose 255 H 411 H* 279 H Random Glucose Calcium Magnesium 04/01/24 04/02/24 04/02/24 23:22 07:30 09:41 Sodium 137 Potassium 3.6 Chloride 100 Carbon Dioxide 27 Anion Gap 14 BUN 44 H Creatinine 1.55 H Estim Creat Clear Calc 61.1 Estimated GFR 46 POC Glucose 313 H 257 H Random Glucose 382 H* Calcium 8.0 L Magnesium 2.4 Progress Note: A&P Assessment and plan (1) Acute on chronic HFrEF (heart failure with reduced ejection fraction): Status: Acute (2) Metabolic encephalopathy: Status: Acute (3) DECLAN (acute kidney injury): Status: Acute Plan 58-year-old gentleman with known nonischemic cardiomyopathy who presented with foot infection and acute kidney injury. Initially was felt to be not in heart failure. Progressive clinical worsening and mental status changes with acute kidney injury and uremia. He was hypotensive and was transferred to ICU. He did not require any pressors. He had hemodialysis sessions with ultrafiltration with significant improvement in mental status and overall hemodynamics. He is nonoliguric. No further plan for hemodialysis. On amiodarone for paroxysmal atrial fibrillation. Telemetry currently is showing atrial fibrillation again. He is on apixaban for anticoagulation. Continue to hold the beta-lion for now. Lasix 80 mg IV b.i.d.. Hydralazine Isordil combination which we will titrate based on his blood pressure response. Limited echocardiogram tomorrow to reassess the biventricular dysfunction. He had infection as well as significant metabolic issues due to renal failure and is possible that LV appeared depressed due to that. No IV beta-lion or Cardizem should be given to him. In sinus rhythm with amiodarone currently. Continue Eliquis and amiodarone. Thank you for allowing me to participate in the care of your patient. Please feel free to contact me if you have any questions. Time Spent With Patient Time: Total time managing care of this patient today ____ minutes. Progress Note: Quality Stroke Does the patient have a stroke diagnosis?: No Procedures Date of Service Date of Service: 04/02/24
[2024-04-02 11:43] LABS: Glucose, Whole Blood 353 mg/dL (60-115)
[2024-04-02] MEDS: hydrALAZINE HCl 10 MG TABLET PO ×2 (13:50→22:38)
[2024-04-02] MEDS: Metoprolol Succinate ER 25 MG TAB.ER.24H PO (13:50)
[2024-04-02] MEDS: Isosorbide Dinitrate 5 MG TABLET PO ×2 (13:53→18:19)
--- NOTE | 2024-04-02 15:52 | P.PNIM_ITS ---
Subjective Subjective Date of Service: 04/02/24 Interval History: urinating, Cr improving AF/SVT on telemetry no dyspnea Review of Systems Review of Systems: Yes all other systems are reviewed and are negative Physical Exam 2 Vital Signs: Vital Signs: Last Vital Signs Temp 97.5 F 04/02/24 12:00 Pulse 83 04/02/24 15:07 Resp 14 04/02/24 15:07 BP 136/80 04/02/24 12:00 Pulse Ox 100 04/02/24 12:00 O2 Del Method Room Air 04/02/24 12:00 O2 Flow Rate 2 03/30/24 13:00 FiO2 21 03/30/24 14:00 BMI result Body Mass Index 30.9 Gen: in no acute distress HEENT: sclera anicteric, moist mucus membranes Neck: supple, JVD, RIJ dialysis catheter Lungs: clear to auscultation bilaterally Heart: regular rate and rhythm, no murmurs Abd: soft, non-tender, non-distended Ext: no edema Skin: warm/well-perfused Neuro: alert and oriented x3, no focal findings Psych: appropriate affect Objective Data Active Medications Acetaminophen (Acetaminophen 325 Mg Tablet) 975 mg PO TID [facility] Last Admin: 04/02/24 13:50 Dose: 975 mg Documented By: MENDEL Albuterol Sulfate (Albuterol Sulfate (0.083%) 2.5 Mg/3 Ml Vial.Neb) 2.5 mg INHALE RQ6H PRN PRN Reason: Shortness Of Breath Or Wheezing Albuterol/Ipratropium (Albuterol/Iprat 2.5/0.5mg 3 Ml Ampul.Neb) 3 ml INHALE RQ4H WHILE AWAKE [facility] Last Admin: 04/02/24 15:07 Dose: 3 ml Documented By: GABBIE Amiodarone HCl (Amiodarone Hcl 200 Mg Tablet) 200 mg PO DAILY [facility] Last Admin: 04/02/24 06:25 Dose: 200 mg Documented By: ALIE Apixaban (Apixaban 5 Mg Tablet) 5 mg PO BID [facility] Last Admin: 04/02/24 08:27 Dose: 5 mg Documented By: MENDEL Fluticasone/Vilanterol (Fluticasone/Vilanterol 200/25 Blst.W.Dev) 1 puff INHALE RDAILY [facility] Last Admin: 04/02/24 07:38 Dose: 1 puff Documented By: GABBIE Furosemide (Furosemide 100 Mg/10 Ml Vial) 80 mg IVPUSH BID@0900,1800 [facility]; Protocol Glucose (Glucose Gel 15 Gm Gel..Gram.) 15 gm PO Q15M PRN; Protocol PRN Reason: per Hypoglycemia Standing Ord. Heparin Sodium (Porcine) (Heparin Sodium,Porcine 5,000 Unit/Ml Vial) 5,000 unit INTRACATH MOWEFR@1645 [facility] Last Admin: 03/31/24 16:49 Dose: Not Given Documented By: ALEX Non-Admin Reason: GIVEN IN DIALYSIS Hydralazine HCl (Hydralazine Hcl 10 Mg Tablet) 10 mg PO TID [facility]; Protocol Last Admin: 04/02/24 13:50 Dose: 10 mg Documented By: MENDEL Dextrose (D10) 250 mls @ 750 mls/hr IV Q15M PRN; Protocol PRN Reason: per Hypoglycemia Standing Ord. Last Infusion: 03/30/24 12:41 Dose: Infused Documented By: FABRICIO Meropenem 1 gm/ Sodium (Chloride) 100 mls @ 200 mls/hr IV Q12H [facility] Last Admin: 04/02/24 14:00 Dose: Not Given Documented By: MENDEL Non-Admin Reason: Patient Asleep Daptomycin 600 mg/ Sodium (Chloride) 62 mls @ 106.845 mls/hr IV Q24H [facility] Insulin Glargine (Insulin Glargine,Hum.Rec.Anlog 100 Unit/Ml 10 Ml Vial) 14 unit SUBCUT BEDTIME [facility] Last Admin: 04/01/24 23:28 Dose: 14 unit Documented By: ALIE Insulin Human Lispro (Insulin Lispro 100 Unit/Ml 3 Ml Vial) 0 unit SUBCUT QIDACHS [facility]; Protocol Last Admin: 04/02/24 13:53 Dose: 10 unit Documented By: MENDEL Isosorbide Dinitrate (Isosorbide Dinitrate 5 Mg Tablet) 5 mg PO 0800,1300,1800 [facility]; Protocol Last Admin: 04/02/24 13:53 Dose: 5 mg Documented By: MENDEL Metoprolol Succinate (Metoprolol Succinate Er 25 Mg Tab.Er.24h) 25 mg PO DAILY [facility]; Protocol Last Admin: 04/02/24 13:50 Dose: 25 mg Documented By: MENDEL Morphine Sulfate (Morphine Sulfate 2 Mg/Ml Cartridge) 1 mg IVPUSH Q3H PRN; Protocol PRN Reason: Pain, Severe (Pain Scale 7-10) Last Admin: 04/02/24 06:34 Dose: 1 mg Documented By: ALIE Omeprazole (Omeprazole 20 Mg Capsule.Dr) 20 mg PO DAILY@0630 [facility] Last Admin: 04/02/24 06:25 Dose: 20 mg Documented By: ALIE Oxycodone HCl (Oxycodone Hcl Immed Release 5 Mg Tablet) 2.5 mg PO Q4H PRN PRN Reason: wound/feet pain Last Admin: 04/02/24 08:25 Dose: 2.5 mg Documented By: MENDEL Sertraline HCl (Sertraline Hcl 25 Mg Tablet) 25 mg PO DAILY [facility] Last Admin: 04/02/24 08:27 Dose: 25 mg Documented By: MENDEL Sodium Chloride (0.9 % Sodium Chloride Flush 3 Ml Syringe) 3 ml IVFLUSH QSHIFT [facility] Last Admin: 04/02/24 08:38 Dose: 3 ml Documented By: MENDEL Labs 03/31/24 06:20 04/02/24 09:41 Labs: Laboratory Results - last 24 hr 04/01/24 04/01/24 04/01/24 16:17 20:32 23:22 Anion Gap Estim Creat Clear Calc Estimated GFR POC Glucose 411 H* 279 H 313 H Random Glucose Calcium Magnesium 04/02/24 04/02/24 04/02/24 07:30 09:41 11:39 Anion Gap 14 Estim Creat Clear Calc 61.1 Estimated GFR 46 POC Glucose 257 H 353 H* Random Glucose 382 H* Calcium 8.0 L Magnesium 2.4 Assessment and Plan (1) Acute on chronic HFrEF (heart failure with reduced ejection fraction): Status: Acute (2) Metabolic encephalopathy: Status: Acute Plan d11 58yo M with AF on apixaban, ischemic cardiomyopathy/HFrEF [15%] with AICD in place, CAD s/p PCI, COPD, KIMANI on CPAP presenting with dyspnea + foot redness admitted for infected DFU, COPD exac, AF/RVR, hyperglycemia complicated by DECLAN requiring HD DECLAN with anion gap metabolic acidosis due to ATN [hypotension, vancomycin toxicity, diuresis] - transferred to ICU 03/29 after line placed for urgent HD, dialyzed 03/29 and 03/30 - SCr improving markedly and plan to remove HD line 04/03 acute metabolic encephalopathy due to uremia - resolved sepsis due to L DFU - blood cultures negative. CT showed soft tissue swelling, synovitis, phlegmon versus early abscess, concern for necrotizing fasciitis. Seen by General Surgery + Vascular Surgery, no operative intervention indicated; continue antibiotics - arterial doppler showing delayed arterial upstroke suggesting inflow disease> seen by Dr. Chatman, who recommended outpatient follow-up with Dr. Chapman who has done prior vascular procedures on the pt - WBC scan was ordered but procedure canceled due to urgent hemodialysis - per ID consultation, daptomycin plus ertapenem [meropenem in hospital], will need PICC line to complete course, duration to be discussed AHRF due to acute-chronic HFrEF - TTE 03/31/24: Normal left ventricular cavity size. There is normal left ventricular wall thickness. The left ventricular systolic function is severely decreased. The visually estimated ejection fraction is between 10-15%. - Moderately increased right ventricular cavity size. There is moderately decreased right ventricular systolic function. - repeat limited TTE tomorrow to reassess RVEF + LVEF - IV furosemide per Cardiology - avoid ACEI/ARB due to renal failure; will start Isordil + hydralazine low-dose per Cardiology paroxysmal AF - continue amiodarone, resumed metoprolol succinate per Cardiology - continue apixaban COPD - treated with steroids + breathing treatments, continue Breo DM2 with hyperglycemia - increase basal-bolus insulin KIMANI - CPAP at night VTE ppx - apixaban dispo - eventual home with VNA In my clinical judgment, the patient requires continued inpatient hospitalization for the following reasons: DECLAN, IV diuresis, IV ABX Total time managing care of this patient today: 55 minutes. Quality Stroke Does the patient have a stroke diagnosis?: No VTE Prior VTE?: No VTE Risk Level:: Medical - moderate - high VTE Device Contraindication: N/A - Device Ordered VTE Drug Contraindication: N/A - Med Ordered
[2024-04-02 16:38] LABS: Glucose, Whole Blood 171 mg/dL (60-115)
[2024-04-02] MEDS: DAPTOmycin 600 MG in 0.9 % Sodium Chloride 50 ML 106.85 MG IV (18:08)
[2024-04-02 19:50] LABS: Glucose, Whole Blood 145 mg/dL (60-115)
[2024-04-02] MEDS: Insulin Glargine,Hum.rec.anlog 100 UNIT/ML 10 ML VIAL 17 UNIT SUBCUT (22:40)
[2024-04-03] VITALS (10 sets, daily range): BP systolic 95–129; BP diastolic 55–73; PULSE 64–72; RESP 16–20; TEMP 35.7–37; O2SAT 90–100
[2024-04-03] MEDS: 0.9 % Sodium Chloride Flush 3 ML SYRINGE IVFLUSH ×4 (01:17→21:15)
[2024-04-03] MEDS: Melatonin 3 MG TABLET 6 MG PO ×2 (04:03→21:17)
[2024-04-03] MEDS: Omeprazole 20 MG CAPSULE.DR PO (04:03)
[2024-04-03] MEDS: Morphine Sulfate 2 MG/ML CARTRIDGE 1 MG IVPUSH ×3 (04:11→21:18)
[2024-04-03 06:47] LABS: Hematocrit 32.7 % (42.0-52.0); Hemoglobin 9.9 g/dl (14.0-18.0); Mean Corpuscular HGB Conc 30.3 g/dl (31.0-36.0); Mean Corpuscular Volume 72.5 fL (80.0-98.0); Mean Platelet Volume 10.7 fL (9.4-12.4); NRBC Pct Auto 0.8 /100WBC (0.0-0.2); Platelet Count 100 X10*3/uL (160-400); Red Blood Count 4.51 X10*6/uL (4.60-5.80); Red Cell Distribution Width 19.1 % (11.0-16.0); White Blood Count 11.8 X10*3/uL (4.8-10.8)
--- NOTE | 2024-04-03 07:00 | CA_ITS ---
Transthoracic Echocardiogram Patient (Last, First, Middle): Jr Cruz, Gender: Male Date of : 1965 Age: 58 Procedure Date: 04/03/2024 Procedure Type: Transthoracic Echocardiogram Location: [facility] [place] Height: 180. cm Weight: 100.25 kg BSA: 2.20 m2 Heart Rate: 71 bpm BP: 117 / 65 mmHg [place] Mixer Operator: Referring MD: Franky Rodriguez MD Technical Healthcare Consultant: Bakari Andrew MD Symptoms: CHF, re-check LVEF Study Quality: Fair, contrast ECG Rhythm: Sinus Conclusions: - 1. Mildly dilated left ventricle with severe LV systolic dysfunction with LVEF of 15-20% 2. Moderately elevated right ventricular systolic pressure with significantly elevated right atrial pressures Findings Procedure Information Contrast agent, definity, is being given per protocol without apparent complications. Left Ventricle Mildly increased left ventricular cavity size. There is normal left ventricular wall thickness. The left ventricular systolic function is severely decreased. The visually estimated ejection fraction is between 15 20%. Regional wall motion abnormalities can not be excluded due to suboptimal endocardial definition. Tricuspid Valve Significantly elevated right atrial pressure. Moderate pulmonary hypertension is present. Prior Study Comparison Changes noted compared to prior study dated: 03/29/2024. LV systolic function has marginally improved Measurements 2D Linear Measurements IVSd: 1.20 0.6-0.9/0.6-1.0 cm LVIDd: 5.76 3.9-5.3/4.2-5.9 cm LVIDd Index: 2.62 2.4-3.2/2.2-3.1 cm/m2 LVIDs: 5.38 2.0-3.6 cm LVPWd: 1.22 0.7-1.1 cm LV Mass: 370.49 67-162/88-224 g LV Mass Index: 168.40 43-95/49-115 g/m2 2D Systolic Function EF 4C: 14.90 >55% EF 2C: 15.90 >55% EF BiP: 18.10 >55% Tricuspid Valve TR Pk Rashawn: 3.11 TR Pk Grad: 39.00 RA Press: 15.00 RVSP: 54.00 Updated in Other Vendor System with Status of Final Bakari Andrew MD electronically signed on 04/03/2024 11:13:21 AM with status of Final
[2024-04-03 07:10] LABS: Anion Gap 13 (12-20); Blood Urea Nitrogen 45 mg/dL (9-16); Calcium 8.8 mg/dL (8.4-10.2); Carbon Dioxide 29 mmol/L (22-29); Chloride 102 mmol/L (96-108); Creatinine Clr Calc Pharmacy 74.6; Estimated Glomerular Filt Rate 58; Glucose Random 150 mg/dL (60-115); Potassium 3.7 mmol/L (3.3-5.1); Sodium 140 mmol/L (135-145)
[2024-04-03 07:52] LABS: Glucose, Whole Blood 162 mg/dL (60-115)
[2024-04-03] MEDS: Insulin Lispro 100 UNIT/ML 3 ML VIAL SUBCUT ×3 (09:10→21:16)
[2024-04-03] MEDS: Furosemide 100 MG/10 ML VIAL 80 MG IVPUSH ×2 (09:12→20:12)
[2024-04-03] MEDS: Acetaminophen 325 MG TABLET 975 MG PO ×3 (09:26→21:17)
[2024-04-03] MEDS: Apixaban 5 MG TABLET PO ×2 (09:28→21:17)
[2024-04-03] MEDS: hydrALAZINE HCl 10 MG TABLET PO ×3 (09:28→21:17)
[2024-04-03] MEDS: Metoprolol Succinate ER 25 MG TAB.ER.24H PO (09:28)
[2024-04-03] MEDS: Amiodarone HCL 200 MG TABLET PO (09:28)
[2024-04-03] MEDS: Isosorbide Dinitrate 5 MG TABLET PO ×3 (09:29→20:13)
[2024-04-03] MEDS: Sertraline HCL 25 MG TABLET PO (09:31)
--- NOTE | 2024-04-03 09:47 | PM.PNCARD ---
Subjective Subjective Date of Service: 04/03/24 Principal diagnosis: Acute heart failure, paroxysmal atrial fibrillation Interval history: Patient compared to 2 days ago and as per the notes doing much better. Alert and oriented and responding appropriately. Appears to be short of breath. However oxygen saturations in the 90s. Says was in atrial fibrillation yesterday. This morning appears to be in sinus rhythm. Kidney function is improving. Review of Systems Constitutional: Reports fatigue and Reports weakness Cardiovascular: Denies chest pain, Denies leg edema, Denies lightheadedness, Reports palpitations (Yesterday), Reports dyspnea and Reports orthopnea Respiratory: Reports dyspnea Gastrointestinal: Reports no additional gastrointestinal complaints Musculoskeletal: Reports no additional musculoskeletal complaints Reports system reviewed and no additional complaints, except as documented and Reports weakness Psychiatric: Reports no additional psychiatric complaints Endocrine: Reports fatigue and Reports palpitations (Yesterday) Physical Exam Vital Signs: Last Vital Signs Temp 96.2 F L 04/03/24 07:29 Pulse 72 04/03/24 09:28 Resp 16 04/03/24 07:29 BP 128/66 04/03/24 09:12 Pulse Ox 97 04/03/24 07:29 O2 Del Method CPAP 04/03/24 07:29 O2 Flow Rate 2 03/30/24 13:00 FiO2 21 03/30/24 14:00 BMI result Body Mass Index 30.9 Const General: cooperative, alert, awake, in distress mild and respiratory and tired appearing Nutritional Appearance: overweight Orientation/consciousness: patient oriented x3 Neck Neck: Yes trachea midline, Yes supple and Yes no JVD Resp Effort & Inspection: normal respiratory effort Auscultation: rales and diminished lung sounds Cardio Jugular venous distension: no JVD Rate: regular rate Rhythm: regular rhythm Heart sounds: S1 normal heart sound present, S2 normal heart sound present, no click, no gallops and no murmurs GI Auscultation: normal bowel sounds Skin General skin exam: no rashes or lesions noted Neuro General: patient oriented x3 and no focal motor deficits Objective Labs and Meds 04/03/24 06:14 04/03/24 06:14 Lab results: Laboratory Results - last 24 hr 04/02/24 04/02/24 04/02/24 09:41 11:39 16:32 WBC RBC Hgb Hct MCV MCH MCHC RDW Plt Count MPV Absolute Nucleated RBC Nucleated RBC % (auto) Sodium 137 Potassium 3.6 Chloride 100 Carbon Dioxide 27 Anion Gap 14 BUN 44 H Creatinine 1.55 H Estim Creat Clear Calc 61.1 Estimated GFR 46 POC Glucose 353 H* 171 H Random Glucose 382 H* Calcium 8.0 L Magnesium 2.4 Total Creatine Kinase 04/02/24 04/03/24 04/03/24 19:45 06:14 07:32 WBC 11.8 H RBC 4.51 L Hgb 9.9 L Hct 32.7 L MCV 72.5 L MCH 22.0 L MCHC 30.3 L RDW 19.1 H Plt Count 100 L D MPV 10.7 Absolute Nucleated RBC 0.090 H Nucleated RBC % (auto) 0.8 H Sodium 140 Potassium 3.7 Chloride 102 Carbon Dioxide 29 Anion Gap 13 BUN 45 H Creatinine 1.27 Estim Creat Clear Calc 74.6 Estimated GFR 58 POC Glucose 145 H 162 H Random Glucose 150 H Calcium 8.8 D Magnesium Total Creatine Kinase 50 Progress Note: A&P Assessment and plan (1) Acute on chronic HFrEF (heart failure with reduced ejection fraction): Status: Acute Assessment and Plan: Acute heart failure with patient with severe ischemic cardiomyopathy with multiple medical problems in very sick. Patient has sepsis and then subsequently developed metabolic encephalopathy and acute kidney injury needing dialysis. Currently his kidney function is improving. Clinically still appears to be in heart failure. Continue with IV diuresis with Lasix. Strict intake and output chart needs to be pursued. Add Jardiance 10 mg to his regimen. Continue metoprolol and hydralazine/Isordil combination for vasodilators therapy. Overall prognosis is guarded. Continue monitor renal function closely. Continue treat underlying lung issues and sepsis aggressively. Please switch to Xopenex therapy. (2) Paroxysmal atrial fibrillation: Status: Acute Assessment and Plan: Paroxysmal atrial fibrillation currently in sinus rhythm since his acute phase is over. Continue amiodarone therapy. Continue metoprolol therapy. Pursue rhythm control as much as possible. Currently on full oral anticoagulation Eliquis which should continue. Continue monitor CBC. Will follow with you Time Spent With Patient Time: Total time managing care of this patient today ____ minutes. Progress Note: Quality Stroke Does the patient have a stroke diagnosis?: No Procedures Date of Service Date of Service: 04/03/24
--- NOTE | 2024-04-03 09:55 | PM.PNNEP ---
Subjective Subjective Date of Service: 04/03/24 Principal diagnosis: Acute heart failure, paroxysmal atrial fibrillation Interval history: This is a 58-year-old male with a history of atrial fibrillation on Eliquis, ischemic cardiomyopathy status post AICD, coronary artery disease status post PCI, COPD, KIMANI on CPAP, HFrEF (30%) here for treatment of COPD exacerbation and of sepsis 2/2 diabetic foot infection, as well as afib with RVR. pt developed DECLAN on admission Cr 0.96, has been progressively trending up with vancomycin and pt was switched to clindamycin. However developed acute worsening of mental status and was transferred to ICU for emergent HD, which he received 03/29, 03/30 creatinine has improved from 3.58 prior to HD to 1.27 today acidosis and electrolyte balance has improved sodium has normalized H&H 10.1 and 32.4 Pt is alert at bedside today, oriented reports his breathing is more comfortable today reports he is passing urine regularly/comfortably (output 1325 over last 24 hours) Reports ongoing left foot pain (chronic diabetic foot wound) Denies other concerns Physical Exam Vital Signs: Vital Signs: Last Vital Signs Temp 96.2 F L 04/03/24 07:29 Pulse 72 04/03/24 09:28 Resp 16 04/03/24 07:29 BP 128/66 04/03/24 09:12 Pulse Ox 97 04/03/24 07:29 O2 Del Method CPAP 04/03/24 07:29 O2 Flow Rate 2 03/30/24 13:00 FiO2 21 03/30/24 14:00 BMI result Body Mass Index 30.9 Const: General: no acute distress and alert Orientation/consciousness: patient oriented x3 Neck: Neck: Yes no JVD Resp: Effort & Inspection: normal respiratory effort (breathing appears slightly labored ) Auscultation: clear to auscultation bilaterally Cardio: Jugular venous distension: no JVD Rate: regular rate Rhythm: regular rhythm Heart sounds: S1 normal heart sound present and S2 normal heart sound present GI: Palpation (GI): Soft to palpation and nontender : General: Yes no CVA tenderness Back/Spine/Pelvis: Back: no CVA tenderness Skin: Rashes: no rashes Neuro: General: patient oriented x3 Extrem: General: No edema Objective Data Labs 04/03/24 06:14 04/03/24 06:14 Labs: Laboratory Results - last 24 hr 04/02/24 04/02/24 04/02/24 09:41 11:39 16:32 WBC RBC Hgb Hct MCV MCH MCHC RDW Plt Count MPV Absolute Nucleated RBC Nucleated RBC % (auto) Sodium 137 Potassium 3.6 Chloride 100 Carbon Dioxide 27 Anion Gap 14 BUN 44 H Creatinine 1.55 H Estim Creat Clear Calc 61.1 Estimated GFR 46 POC Glucose 353 H* 171 H Random Glucose 382 H* Calcium 8.0 L Magnesium 2.4 Total Creatine Kinase 04/02/24 04/03/24 04/03/24 19:45 06:14 07:32 WBC 11.8 H RBC 4.51 L Hgb 9.9 L Hct 32.7 L MCV 72.5 L MCH 22.0 L MCHC 30.3 L RDW 19.1 H Plt Count 100 L D MPV 10.7 Absolute Nucleated RBC 0.090 H Nucleated RBC % (auto) 0.8 H Sodium 140 Potassium 3.7 Chloride 102 Carbon Dioxide 29 Anion Gap 13 BUN 45 H Creatinine 1.27 Estim Creat Clear Calc 74.6 Estimated GFR 58 POC Glucose 145 H 162 H Random Glucose 150 H Calcium 8.8 D Magnesium Total Creatine Kinase 50 Microbiology Microbiology Results: Microbiology 03/26/24 22:43 Blood - Venous Blood Culture - Final No growth after 5 days. 03/26/24 22:43 Blood - Venous Blood Culture - Final No growth after 5 days. 03/23/24 12:31 Blood - Venous Blood Culture - Final No growth after 5 days. 03/23/24 12:28 Blood - Venous Blood Culture - Final No growth after 5 days. 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 down to 1.27 (last HD Saturday 03/31) temporary right IJ HD cathter in place- order in for removal blood pressures remain optimal on current regimen, recommend to continue Discussed with Dr Chatterjee Time Spent With Patient Time: Total time managing care of this patient today ____ minutes. Progress Note: Quality Stroke Does the patient have a stroke diagnosis?: No
[2024-04-03] MEDS: Empagliflozin 10 MG TABLET PO (10:49)
--- NOTE | 2024-04-03 12:34 | P.PICC_ITS ---
PICC Line Insertion NPICC Diagnosis: Sepsis Indication: nursing home ABT Pertinent Labs: reviewed Technique: Following informed consent including risks, benefits and alternatives and using sterile technique including cap and mask, sterile gown, glove and drape, the left arm was prepped and draped in the usual sterile fashion of full barrier technique with CHG. Following completion of Marina Protocol the skin and soft tissues were anesthetized with 1% Lidocaine plain. Using ultrasound guidance, left basilic vein access was obtained. Over an 0.018 wire through peel-away sheath, a 4 fr single lumen PASV Power PICC line was positioned. Catheter length is 44cm internal length, 0cm external length, for a total trimmed length of 44cm. The procedure was performed in [facility]. Tip verification was performed by Travis Monsivais with Sherlock 3CG. Tip located in SVC. Patient does have a hx of A-fib as well as ICD therefore CXR was requested by Dr Rodriguez. Ultr asound was used to document vein patency and for needle entry. A formal ultrasound picture was recorded. Vascular Film Inspector has not released the line for use until CXR has been read by Radiologist and released for use, it is currently dressed with a StatLock, Tegaderm, and CHG disc. Verification has been performed for blood return and line patency. Arm Circumference: 31cm Equipment: [employer]: [employer] PowerPICC SOLO catheter with sherlock 3CG Tip Catheter Type: 4FR single lumen PASV PICC Lot #: [id number]
--- NOTE | 2024-04-03 13:26 | MHC.CM.PN ---
Per rounds, pt is not medically cleared for DC. He requires treatment for DECLAN, IV diuresis, and IV ABX. He had a PICC line inserted today. DCP: home with home infusion and VNA services. referrals updated.
[2024-04-03 13:53] LABS: Glucose, Whole Blood 144 mg/dL (60-115)
--- NOTE | 2024-04-03 14:32 | PM.PROC ---
Brief Operative Note Date of procedure: 04/03/24 Pre-op diagnosis: no longer needs access for HD Post-op diagnosis: same Procedure: Right IJ Scotty removed. Pressure held until hemostasis obtained. DSD applied. No immediate complications.
--- NOTE | 2024-04-03 15:46 | HO.PM.IMPN ---
Subjective Subjective Date of Service: 04/03/24 Interval History: short of breath with exertion in NSR no chest pain Review of Systems Review of Systems: Yes all other systems are reviewed and are negative Physical Exam Vital Signs: Vital Signs: Last Vital Signs Temp 98.6 F 04/03/24 14:59 Pulse 68 04/03/24 14:59 Resp 16 04/03/24 14:59 BP 129/73 04/03/24 14:59 Pulse Ox 100 04/03/24 14:59 O2 Del Method Room Air 04/03/24 14:59 O2 Flow Rate 2 03/30/24 13:00 FiO2 21 03/30/24 14:00 BMI result Body Mass Index 30.9 Gen: in no acute distress HEENT: sclera anicteric, moist mucus membranes Neck: supple, JVD, RIJ dialysis catheter Lungs: clear to auscultation bilaterally Heart: regular rate and rhythm, no murmurs Abd: soft, non-tender, non-distended Ext: no edema Skin: warm/well-perfused, L plantar ulcer with some desquamation around Neuro: alert and oriented x3, no focal findings Psych: appropriate affect Objective Data Active Medications Acetaminophen (Acetaminophen 325 Mg Tablet) 975 mg PO TID [facility] Last Admin: 04/03/24 14:57 Dose: 975 mg Documented By: FLORENCIA Amiodarone HCl (Amiodarone Hcl 200 Mg Tablet) 200 mg PO DAILY [facility] Last Admin: 04/03/24 09:28 Dose: 200 mg Documented By: FLORENCIA Apixaban (Apixaban 5 Mg Tablet) 5 mg PO BID [facility] Last Admin: 04/03/24 09:28 Dose: 5 mg Documented By: FLORENCIA Levalbuterol HCl 1.25 mg/ (Ipratropium Mchenry 0.5 mg) 0 mg INHALE Q4H PRN PRN Reason: Shortness of Breath/Wheezing Empagliflozin (Empagliflozin 10 Mg Tablet) 10 mg PO DAILY [facility] Last Admin: 04/03/24 10:49 Dose: 10 mg Documented By: FLORENCIA Fluticasone/Vilanterol (Fluticasone/Vilanterol 200/25 Blst.W.Dev) 1 puff INHALE RDAILY [facility] Last Admin: 04/03/24 11:41 Dose: Not Given Documented By: JUNIOR Non-Admin Reason: Off Unit: Surgery Furosemide (Furosemide 100 Mg/10 Ml Vial) 80 mg IVPUSH BID@0900,1800 [facility]; Protocol Last Admin: 04/03/24 09:12 Dose: 80 mg Documented By: FLORENCIA Glucose (Glucose Gel 15 Gm Gel..Gram.) 15 gm PO Q15M PRN; Protocol PRN Reason: per Hypoglycemia Standing Ord. Heparin Sodium (Porcine) (Heparin Sodium,Porcine 5,000 Unit/Ml Vial) 5,000 unit INTRACATH MOWEFR@1645 [facility] Last Admin: 03/31/24 16:49 Dose: Not Given Documented By: ALEX Non-Admin Reason: GIVEN IN DIALYSIS Hydralazine HCl (Hydralazine Hcl 10 Mg Tablet) 10 mg PO TID [facility]; Protocol Last Admin: 04/03/24 14:59 Dose: 10 mg Documented By: FLORENCIA Dextrose (D10) 250 mls @ 750 mls/hr IV Q15M PRN; Protocol PRN Reason: per Hypoglycemia Standing Ord. Last Infusion: 03/30/24 12:41 Dose: Infused Documented By: FABRICIO Meropenem 1 gm/ Sodium (Chloride) 100 mls @ 200 mls/hr IV Q12H [facility] Last Infusion: 04/03/24 15:02 Dose: Infused Documented By: FLORENCIA Daptomycin 600 mg/ Sodium (Chloride) 62 mls @ 106.845 mls/hr IV Q24H [facility] Last Infusion: 04/02/24 18:46 Dose: Infused Documented By: MENDEL Insulin Glargine (Insulin Glargine,Hum.Rec.Anlog 100 Unit/Ml 10 Ml Vial) 17 unit SUBCUT BEDTIME [facility] Last Admin: 04/02/24 22:40 Dose: 17 unit Documented By: ALIE Insulin Human Lispro (Insulin Lispro 100 Unit/Ml 3 Ml Vial) 0 unit SUBCUT QIDACHS [facility]; Protocol Last Admin: 04/03/24 14:39 Dose: Not Given Documented By: FLORENCIA Non-Admin Reason: No Insulin Coverage Isosorbide Dinitrate (Isosorbide Dinitrate 5 Mg Tablet) 5 mg PO 0800,1300,1800 [facility]; Protocol Last Admin: 04/03/24 14:58 Dose: 5 mg Documented By: FLORENCIA Melatonin (Melatonin 3 Mg Tablet) 6 mg PO BEDTIME PRN PRN Reason: Insomnia Last Admin: 04/03/24 04:03 Dose: 6 mg Documented By: ALEI Comments: Pt requested for sleep Metoprolol Succinate (Metoprolol Succinate Er 25 Mg Tab.Er.24h) 25 mg PO DAILY [facility]; Protocol Last Admin: 04/03/24 09:28 Dose: 25 mg Documented By: FLORENCIA Morphine Sulfate (Morphine Sulfate 2 Mg/Ml Cartridge) 1 mg IVPUSH Q3H PRN; Protocol PRN Reason: Pain, Severe (Pain Scale 7-10) Last Admin: 04/03/24 10:50 Dose: 1 mg Documented By: FLORENCIA Omeprazole (Omeprazole 20 Mg Capsule.Dr) 20 mg PO DAILY@0630 [facility] Last Admin: 04/03/24 04:03 Dose: 20 mg Documented By: ALIE Oxycodone HCl (Oxycodone Hcl Immed Release 5 Mg Tablet) 2.5 mg PO Q4H PRN PRN Reason: wound/feet pain Last Admin: 04/02/24 22:39 Dose: 2.5 mg Documented By: ALIE Sertraline HCl (Sertraline Hcl 25 Mg Tablet) 25 mg PO DAILY [facility] Last Admin: 04/03/24 09:31 Dose: 25 mg Documented By: FLORENCIA Sodium Chloride (0.9 % Sodium Chloride Flush 3 Ml Syringe) 3 ml IVFLUSH QSHIFT [facility] Last Admin: 04/03/24 09:27 Dose: 3 ml Documented By: FLORENCIA Labs 04/03/24 06:14 04/03/24 06:14 Labs: Laboratory Results - last 24 hr 04/02/24 04/02/24 04/03/24 16:32 19:45 06:14 MCV 72.5 L MCH 22.0 L MCHC 30.3 L RDW 19.1 H Plt Count 100 L D MPV 10.7 Absolute Nucleated RBC 0.090 H Nucleated RBC % (auto) 0.8 H Anion Gap 13 Estim Creat Clear Calc 74.6 Estimated GFR 58 POC Glucose 171 H 145 H Random Glucose 150 H Calcium 8.8 D Total Creatine Kinase 50 04/03/24 04/03/24 07:32 13:48 MCV MCH MCHC RDW Plt Count MPV Absolute Nucleated RBC Nucleated RBC % (auto) Anion Gap Estim Creat Clear Calc Estimated GFR POC Glucose 162 H 144 H Random Glucose Calcium Total Creatine Kinase Assessment and Plan (1) Acute on chronic HFrEF (heart failure with reduced ejection fraction): Status: Acute (2) Metabolic encephalopathy: Status: Acute Plan d12 58yo M with AF on apixaban, ischemic cardiomyopathy/HFrEF [15%] with AICD in place, CAD s/p PCI, COPD, KIMANI on CPAP presenting with dyspnea + foot redness admitted for infected DFU, COPD exac, AF/RVR, hyperglycemia complicated by DECLAN requiring HD DECLAN with anion gap metabolic acidosis due to ATN [hypotension, vancomycin toxicity, diuresis] - transferred to ICU 03/29 after line placed for urgent HD, dialyzed 03/29 and 03/30 - SCr normalized; will remove HD line today acute metabolic encephalopathy due to uremia - resolved sepsis due to L DFU - blood cultures negative. CT showed soft tissue swelling, synovitis, phlegmon versus early abscess, concern for necrotizing fasciitis. Seen by General Surgery + Vascular Surgery, no operative intervention indicated; continue antibiotics; per ID x 6 wk - arterial doppler showing delayed arterial upstroke suggesting inflow disease> seen by Dr. Chatman, who recommended outpatient follow-up with Dr. Chapman who has done prior vascular procedures on the pt - WBC scan was ordered but procedure canceled due to urgent hemodialysis - per ID consultation, daptomycin plus ertapenem [meropenem in hospital] x6 wk, will place PICC today AHRF due to acute-chronic HFrEF - TTE 03/31/24: Normal left ventricular cavity size. There is normal left ventricular wall thickness. The left ventricular systolic function is severely decreased. The visually estimated ejection fraction is between 10-15%. - Moderately increased right ventricular cavity size. There is moderately decreased right ventricular systolic function. - TTE 04/03/24: 1. Mildly dilated left ventricle with severe LV systolic dysfunction with LVEF of 15-20% 2. Moderately elevated right ventricular systolic pressure with significantly elevated right atrial pressures: - continue IV furosemide - avoid ACEI/ARB due to renal failure; started Isordil + hydralazine and will add empagliflozin per Cardiology; continue metoprolol succinate paroxysmal AF - continue amiodarone, resumed metoprolol succinate per Cardiology - continue apixaban COPD - treated with steroids + breathing treatments, continue Breo; change albuterol to levalbuterol DM2 with hyperglycemia - increased basal-bolus insulin and glycemic control is much improved KIMANI - CPAP at night VTE ppx - apixaban dispo - eventual home with VNA In my clinical judgment, the patient requires continued inpatient hospitalization for the following reasons: IV diuresis, IV ABX Total time managing care of this patient today: 50 minutes. Quality Stroke Does the patient have a stroke diagnosis?: No VTE Prior VTE?: No VTE Risk Level:: Medical - moderate - high VTE Device Contraindication: N/A - Device Ordered VTE Drug Contraindication: N/A - Med Ordered
[2024-04-03 16:32] LABS: Glucose, Whole Blood 234 mg/dL (60-115)
[2024-04-03 16:48] LABS: Vitamin D 25-OH, D2 <4 ng/mL; Vitamin D 25-OH, D3 10 ng/mL; Vitamin D 25-OH, Total 10 ng/mL (30-100)
[2024-04-03] MEDS: Heparin Sodium,Porcine 5,000 UNIT/ML VIAL 5000 UNIT INTRACATH (20:13)
[2024-04-03] MEDS: DAPTOmycin 600 MG in 0.9 % Sodium Chloride 50 ML 106 MG IV (20:13)
[2024-04-03 20:34] LABS: Glucose, Whole Blood 258 mg/dL (60-115)
[2024-04-03] MEDS: Insulin Glargine,Hum.rec.anlog 100 UNIT/ML 10 ML VIAL 17 UNIT SUBCUT (21:16)
[2024-04-04] VITALS (8 sets, daily range): BP systolic 106–132; BP diastolic 58–66; PULSE 72–88; RESP 14–20; TEMP 36.3–36.6; O2SAT 92–97
--- NOTE | 2024-04-04 04:06 | PC.NURSE ---
Pt is AOx3, able to make needs known. At the beginning of shift pt attempted to get OOB to stand bedside to use urinal and bed alarm went off. AUTOCAD TECHNICIAN went in to assist pt. He began to argue w/the AUTOCAD TECHNICIAN about the bed alarm and threw the empty urinal at her. AUTOCAD TECHNICIAN left the room and reported this incident to this RN. Spoke to pt who apologized to AUTOCAD TECHNICIAN about his behavior stating he was struggling with being hospitalized for so long and he found out his dog while he was here. Staff stated empathy but reinforced he can not treat staff that way. He places his CPAP on and off at his leisure. Approx 0300 pt asked for this RN to look at his right foot stating it was swollen and pink/red. This RN did not note any edema nor any redness. Pt insisted this RN notifmyron NIETO, hospitalist tigered Call sal within reach, bed alarm on, camera in room.
[2024-04-04] MEDS: Omeprazole 20 MG CAPSULE.DR PO (05:33)
[2024-04-04 06:53] LABS: Hematocrit 33.4 % (42.0-52.0); Hemoglobin 10.2 g/dl (14.0-18.0); Mean Corpuscular HGB Conc 30.5 g/dl (31.0-36.0); Mean Corpuscular Volume 72.1 fL (80.0-98.0); Mean Platelet Volume 11.2 fL (9.4-12.4); NRBC Pct Auto 0.3 /100WBC (0.0-0.2); Platelet Count 114 X10*3/uL (160-400); Red Blood Count 4.63 X10*6/uL (4.60-5.80); Red Cell Distribution Width 19.3 % (11.0-16.0); White Blood Count 12.4 X10*3/uL (4.8-10.8)
[2024-04-04 07:10] LABS: B Type Natriuretic Peptide 3151 pg/mL (<100)
[2024-04-04 07:28] LABS: Erythrocyte Sedimentation Rate 13 MM/HR (0-15)
[2024-04-04 07:34] LABS: Anion Gap 13 (12-20); Blood Urea Nitrogen 38 mg/dL (9-16); Calcium 8.6 mg/dL (8.4-10.2); Carbon Dioxide 31 mmol/L (22-29); Chloride 104 mmol/L (96-108); Creatinine Clr Calc Pharmacy 99.8; Estimated Glomerular Filt Rate > 60; Glucose Random 56 mg/dL (60-115); Potassium 3.8 mmol/L (3.3-5.1); Sodium 144 mmol/L (135-145)
[2024-04-04] MEDS: Fluticasone/Vilanterol 200/25 BLST.W.DEV 1 PUFF INHALE (07:44)
[2024-04-04 08:07] LABS: Glucose, Whole Blood 83 mg/dL (60-115)
--- NOTE | 2024-04-04 08:50 | P.PNNP_ITS ---
Subjective Subjective Date of Service: 04/04/24 Principal diagnosis: Acute heart failure, paroxysmal atrial fibrillation Interval history: This is a 58-year-old male with a history of atrial fibrillation on Eliquis, ischemic cardiomyopathy status post AICD, coronary artery disease status post PCI, COPD, KIMANI on CPAP, HFrEF (30%) here for treatment of COPD exacerbation and of sepsis 2/2 diabetic foot infection, as well as afib with RVR. pt developed DECLAN on admission Cr 0.96, has been progressively trending up with vancomycin and pt was switched to clindamycin. However developed acute worsening of mental status and was transferred to ICU for emergent HD, which he received 03/29, 03/30 creatinine has improved from 3.58 prior to HD to 0.95 today electrolyte imbalances have improved H&H 10.2 and 33.4 Pt is alert at bedside today, oriented reports his breathing is comfortable today reports he is passing urine regularly/comfortably (output 1325 over last 24 hours) Reports ongoing left foot pain (chronic diabetic foot wound) Denies other concerns Physical Exam 2 Vital Signs: Vital Signs: Last Vital Signs Temp 97.3 F 04/04/24 12:00 Pulse 72 04/04/24 12:00 Resp 20 04/04/24 12:00 BP 124/65 04/04/24 12:00 Pulse Ox 92 04/04/24 12:00 O2 Del Method Room Air, CPAP 04/04/24 12:00 O2 Flow Rate 2 03/30/24 13:00 FiO2 21 03/30/24 14:00 BMI result Body Mass Index 30.9 Const: General: no acute distress and alert Orientation/consciousness: p atient oriented x3 Neck: Neck: Yes no JVD Resp: Effort & Inspection: normal respiratory effort (breathing appears slightly labored ) Auscultation: clear to auscultation bilaterally Cardio: Jugular venous distension: no JVD Rate: regular rate Rhythm: r egular rhythm Heart sounds: S1 normal heart sound present and S2 normal heart sound present GI: Palpation (GI): Soft to palpation and nontender : General: Yes no CVA tenderness Back/Spine/Pelvis: Back: no CVA tenderness Skin: Rashes: no rashes Neuro: General: patient oriented x3 Extrem: General: No edema Objective Data Labs 04/04/24 06:13 04/04/24 06:13 Labs: Laboratory Results - last 24 hr 10/02/24 10/07/24 10/07/24 11:54 13:48 16:28 WBC RBC Hgb Hct MCV MCH MCHC RDW Plt Count MPV Absolute Nucleated RBC Nucleated RBC % (auto) ESR Sodium Potassium Chloride Carbon Dioxide Anion Gap BUN Creatinine Estim Creat Clear Calc Estimated GFR POC Glucose 144 H 234 H Random Glucose Calcium C-Reactive Protein B-Natriuretic Peptide 25-OH Vitamin D Total 10 L 25-Hydroxy Vitamin D2 <4 25-Hydroxy Vitamin D3 10 04/03/24 04/04/24 04/04/24 20:29 06:13 08:00 WBC 12.4 H RBC 4.63 Hgb 10.2 L Hct 33.4 L MCV 72.1 L MCH 22.0 L MCHC 30.5 L RDW 19.3 H Plt Count 114 L MPV 11.2 Absolute Nucleated RBC 0.040 H Nucleated RBC % (auto) 0.3 H ESR 13 Sodium 144 Potassium 3.8 Chloride 104 Carbon Dioxide 31 H Anion Gap 13 BUN 38 H Creatinine 0.95 Estim Creat Clear Calc 99.8 Estimated GFR > 60 POC Glucose 258 H 83 Random Glucose 56 L* Calcium 8.6 C-Reactive Protein 3.40 H B-Natriuretic Peptide 3151 H 25-OH Vitamin D Total 25-Hydroxy Vitamin D2 25-Hydroxy Vitamin D3 04/04/24 11:47 WBC RBC Hgb Hct MCV MCH MCHC RDW Plt Count MPV Absolute Nucleated RBC Nucleated RBC % (auto) ESR Sodium Potassium Chloride Carbon Dioxide Anion Gap BUN Creatinine Estim Creat Clear Calc Estimated GFR POC Glucose 308 H Random Glucose Calcium C-Reactive Protein B-Natriuretic Peptide 25-OH Vitamin D Total 25-Hydroxy Vitamin D2 25-Hydroxy Vitamin D3 Microbiology Microbiology Results: Microbiology 03/26/24 22:43 Blood - Venous Blood Culture - Final No growth after 5 days. 03/26/24 22:43 Blood - Venous Blood Culture - Final No growth after 5 days. 03/23/24 12:31 Blood - Venous Blood Culture - Final No growth after 5 days. 03/23/24 12:28 Blood - Venous Blood Culture - Final No growth after 5 days. 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 renal function has normalized blood pressures remain optimal on current regimen, recommend to continue Recommend to follow up with nephrology as needed should new concerns/issues arise. Discussed with Dr Chatterjee Time Spent With Patient Time: Total time managing care of this patient today ____ minutes. Progress Note: Quality Stroke Does the patient have a stroke diagnosis?: No
[2024-04-04] MEDS: Furosemide 100 MG/10 ML VIAL 80 MG IVPUSH (09:53)
[2024-04-04] MEDS: 0.9 % Sodium Chloride Flush 3 ML SYRINGE IVFLUSH (09:57)
[2024-04-04] MEDS: Acetaminophen 325 MG TABLET 975 MG PO ×2 (10:00→14:33)
[2024-04-04] MEDS: hydrALAZINE HCl 10 MG TABLET PO ×2 (10:02→14:43)
[2024-04-04] MEDS: Isosorbide Dinitrate 5 MG TABLET PO ×2 (10:02→14:31)
[2024-04-04] MEDS: Amiodarone HCL 200 MG TABLET PO (10:02)
[2024-04-04] MEDS: Empagliflozin 10 MG TABLET PO (10:02)
[2024-04-04] MEDS: Apixaban 5 MG TABLET PO (10:02)
[2024-04-04] MEDS: Metoprolol Succinate ER 25 MG TAB.ER.24H PO (10:03)
[2024-04-04] MEDS: Sertraline HCL 25 MG TABLET PO (10:03)
--- NOTE | 2024-04-04 10:05 | PM.PNCARD ---
Subjective Subjective Date of Service: 04/04/24 Principal diagnosis: Acute heart failure, paroxysmal atrial fibrillation Interval history: Patient says that he is feeling a lot better. His creatinine is normalized. He wants to go home and insisting on it. Overall intake and output chart does not show significant negative balance at this point time despite IV Lasix, not sure if they are being maintain appropriately. Blood pressure is stable. Review of Systems Constitutional: Reports no additional constitutional complaints Physical Exam Vital Signs: Last Vital Signs Temp 97.8 F 04/04/24 07:29 Pulse 88 04/04/24 10:03 Resp 18 04/04/24 07:46 BP 108/58 L 04/04/24 10:02 Pulse Ox 97 04/04/24 04:00 O2 Del Method Room Air 04/04/24 07:29 O2 Flow Rate 2 03/30/24 13:00 FiO2 21 03/30/24 14:00 BMI result Body Mass Index 30.9 Const General: cooperative, alert, awake, in distress mild and respiratory and tired appearing Nutritional Appearance: overweight Orientation/consciousness: patient oriented x3 Neck Neck: Yes trachea midline, Yes supple and Yes no JVD Resp Effort & Inspection: normal respiratory effort Auscultation: rales and diminished lung sounds Cardio Jugular venous distension: no JVD Rate: regular rate Rhythm: regular rhythm Heart sounds: S1 normal heart sound present, S2 normal heart sound present, no click, no gallops and no murmurs GI Auscultation: normal bowel sounds Skin General skin exam: no rashes or lesions noted Neuro General: patient oriented x3 and no focal motor deficits Objective Labs and Meds 04/04/24 06:13 04/04/24 06:13 Lab results: Laboratory Results - last 24 hr 03/29/24 04/03/24 04/03/24 11:54 13:48 16:28 WBC RBC Hgb Hct MCV MCH MCHC RDW Plt Count MPV Absolute Nucleated RBC Nucleated RBC % (auto) ESR Sodium Potassium Chloride Carbon Dioxide Anion Gap BUN Creatinine Estim Creat Clear Calc Estimated GFR POC Glucose 144 H 234 H Random Glucose Calcium C-Reactive Protein B-Natriuretic Peptide 25-OH Vitamin D Total 10 L 25-Hydroxy Vitamin D2 <4 25-Hydroxy Vitamin D3 10 04/03/24 04/04/24 04/04/24 20:29 06:13 08:00 WBC 12.4 H RBC 4.63 Hgb 10.2 L Hct 33.4 L MCV 72.1 L MCH 22.0 L MCHC 30.5 L RDW 19.3 H Plt Count 114 L MPV 11.2 Absolute Nucleated RBC 0.040 H Nucleated RBC % (auto) 0.3 H ESR 13 Sodium 144 Potassium 3.8 Chloride 104 Carbon Dioxide 31 H Anion Gap 13 BUN 38 H Creatinine 0.95 Estim Creat Clear Calc 99.8 Estimated GFR > 60 POC Glucose 258 H 83 Random Glucose 56 L* Calcium 8.6 C-Reactive Protein 3.40 H B-Natriuretic Peptide 3151 H 25-OH Vitamin D Total 25-Hydroxy Vitamin D2 25-Hydroxy Vitamin D3 Imaging Radiologist's impression: Impressions Chest X-Ray 04/03/24 12:35 IMPRESSION: 1. New left PICC line terminates in the superior vena cava. 2. No pneumothorax. 3. Probable decrease in fluid in the minor fissure and slight increased patchy opacity at the right lung base. Electronically signed by: Roopa Beltrán MD 04/03/2024 01:23 PM EDT RP Progress Note: A&P Assessment and plan (1) Acute on chronic HFrEF (heart failure with reduced ejection fraction): Status: Acute Assessment and Plan: Patient with acute heart failure with multiple comorbidities with significantly reduced LV ejection fraction. Clinically doing well at current point time. Insistent on wanting to go home. Can switch to his p.o. diuretic dose at home. Continue neurohormonal modulation with metoprolol and Jardiance. Given his recurrent DECLAN episodes not sure if a good candidate for angiotensin receptor/KIM inhibitor therapy. Continue hydralazine and Isordil. Overall prognosis guarded in his risk of recurrent hospitalization related to this is high. (2) Paroxysmal atrial fibrillation: Status: Acute Assessment and Plan: Paroxysmal atrial fibrillation remained suppressed. Continue with current metoprolol therapy. Continue with amiodarone therapy. He has benefitted from rhythm control approach. Continue full oral anticoagulation Eliquis. Will follow up in the clinic in couple of weeks. Thank you for allowing me to partake in his care Time Spent With Patient Time: Total time managing care of this patient today ____ minutes. Progress Note: Quality Stroke Does the patient have a stroke diagnosis?: No Procedures Date of Service Date of Service: 04/04/24
[2024-04-04 11:52] LABS: Glucose, Whole Blood 308 mg/dL (60-115)
--- NOTE | 2024-04-04 13:00 | P.F2F_ITS ---
Service Date Service Date: 04/04/24 Encounter Date of encounter: 04/04/24 Reasons for Services Signs and symptoms assessed: CHF diabetic foot infection Reason for retirement: administration of IV, SQ, or IM injection, diabetic teaching, monitoring of unstable blood sugar, medication management, medication treatment and teach disease management Reason for physical therapy: home safety and mobility, therapeutic exercises, gait/transfer training, assess need for DME, ADL training and energy conservation Overseeing Care: Phi Crisostomo Homebound: Leaving the home is medically contraindicated at this time without the asist of a device and/or another person due th the listed conditions above and below. Reason homebound: unsteady gait / fall risk, immunosuppression / infection risk and weakness related to hospital stay Certification: Based on the above findings, I certify that this patient is confined to the home and needs intermittent retirement care, physical therapy and/or speech therapy, or continues to need occupational therapy. The patient is under my care, and I have initiated the establishment of the plan of care. The patient will be followed by a physician who will periodically review the plan of care. Time Spent With Patient Time: Total time managing care of this patient today ____ minutes.
--- NOTE | 2024-04-04 13:16 | PM.DS ---
DS: Providers Provider Date of Service: 04/04/24 Date of admission: 03/23/24 16:22 Date of discharge: 04/04/24 Primary care physician: SAVANAH Harris Consults: 03/23/24 16:35 Consult to Cardiology Routine Consulting Provider: [facility] Reason for consultation: afib rvr, h/o PM/AICD Has provider been notified: No 03/23/24 17:03 Consult to Wound Care Routine Reason for consultation: left foot diabetic ulcer 03/24/24 08:58 Consult to General Surgery Routine Consulting Provider: [facility] General Surgeons Reason for consultation: diabetic foot wound, gas on xray Has provider been notified: No 03/26/24 07:24 Consult to Vascular Surgery Routine Consulting Provider: [facility] Reason for consultation: abnormal arterial doppler 03/27/24 07:24 Consult to Nephrology Routine Consulting Provider: [facility] Reason for consultation: worsening creat 03/28/24 11:03 Consult to Cardiology Routine Consulting Provider: [facility] Reason for consultation: CHF 03/30/24 18:17 Consult to Infectious Diseases Routine Consulting Provider: [facility] Reason for consultation: foot infection Has provider been notified: No DS: Diagnosis Discharge Diagnosis (1) Hyperkalemia: Status: Acute (2) 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: Status: Acute (3) DECLAN (acute kidney injury): Status: Acute (4) Acute tubular necrosis: Status: Acute (5) Ischemic cardiomyopathy: Status: Acute (6) Acute on chronic HFrEF (heart failure with reduced ejection fraction): Status: Acute (7) Paroxysmal atrial fibrillation: Status: Acute (8) Metabolic encephalopathy: Status: Acute (9) Sepsis: Status: Acute (10) Diabetic infection of left foot: Status: Acute (11) PAD (peripheral artery disease): Status: Acute DS: Summary Hospital Course Hospital Course: From the history and physical by the admitting hospitalist, RANI Dodd, 03/23/24: This is a 58-year-old male with complicated past medical history including history of diabetes, 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 Patient reports one-week history of shortness of breath with associated chills and intermittent dry cough. Shortness of breath primarily with exertion and associated with intermittent dizziness. Denies any recent sick contacts. Also reports redness and pain in his left foot near his left great toe amputation site for the past 3 days. In the emergency department inflammatory markers were elevated, lactic acid was elevated at 3.9. chest x-ray showed chronic changes. He was treated for acute COPD exacerbation with breathing treatments, started on broad-spectrum antibiotics for foot infection. Use also noted to be in atrial fibrillation with rapid ventricular response. A decision was made to admit him for further management of acute COPD exacerbation and diabetic foot wound infection. 58yo M with AF on apixaban, ischemic cardiomyopathy/HFrEF [15%] with AICD in place, CAD s/p PCI, COPD, and KIMANI on CPAP who presented with dyspnea and foot redness. He was admitted to the telemetry unit for infected DFU, COPD exac, AF/RVR, and hyperglycemia. Hospitalization was prolonged, complicated by DECLAN requiring hemodialysis. Hospital course by problem: complicated by DECLAN requiring HD sepsis due to L DFU - Blood cultures negative. CT showed soft tissue swelling, synovitis, phlegmon versus early abscess, concern for necrotizing fasciitis. Seen by General Surgery + Vascular Surgery, no operative intervention indicated; per Infectious Disease, will treat with 6 wk of IV antibiotics. PICC was placed on 04/03/24. Patient will be on IV daptomycin plus ertapenem [with weekly CBCd/BMP/CPK] until 05/14/24. - Arterial doppler showing delayed arterial upstroke suggesting inflow disease; seen by vascular srugeon Dr. Chatman, who recommended outpatient follow-up with Dr. Leal, as the latter has done prior vascular procedures on the patient. DECLAN with anion gap metabolic acidosis due to ATN - ATN was attributed to hypotension, vancomycin toxicity, and possibly excess diuresis - Due to acute uremia and encephalopathy, he was transferred to the ICU 03/29 with placement of a temporary dialysis catheter. He underwent dialysis 03/29 and 03/30 and then made a good renal recovery with complete normalization of serum creatinine. Hemodialysis catheter was removed 04/03/24. acute metabolic encephalopathy due to uremia - Resolved with dialysis. acute hypoxic respiratory failure due to acute-chronic HFrEF - TTE 03/31/24: Normal left ventricular cavity size. There is normal left ventricular wall thickness. The left ventricular systolic function is severely decreased. The visually estimated ejection fraction is between 10-15%. - Moderately increased right ventricular cavity size. There is moderately decreased right ventricular systolic function. - TTE 04/03/24: 1. Mildly dilated left ventricle with severe LV systolic dysfunction with LVEF of 15-20% 2. Moderately elevated right ventricular systolic pressure with significantly elevated right atrial pressures: - He was diuresed with IV furosemide. Metoprolol succinate dosage was reduced and he was started on isosorbide dinitrate plus hydralazine. Empagliflozin was continued. KIM-I/ARB avoided due to renal failure. He was discharged home on his usual torsemide and will need Cardiology follow-up in 2 weeks. paroxysmal AF - Converted to sinus rhythm and continued on amiodarone, metoprolol succinate, and apixaban. COPD with acute exacerbation - Treated with steroids and breathing treatments. He was discharged home with VNA services for home PT and home IV antibiotic infusion. Time Attestation Discharge Coordination Time (in mins): 55 Quality: Safe Use of Opioids Does Pt have an Active Cancer Diagnosis on the Problem List?: No Quality: Stroke Does the patient have a stroke diagnosis?: No Physical Exam Vital Signs: Vital Signs: Last Vital Signs Temp 97.3 F 04/04/24 12:00 Pulse 72 04/04/24 12:00 Resp 20 04/04/24 12:00 BP 124/65 04/04/24 12:00 Pulse Ox 92 04/04/24 12:00 O2 Del Method Room Air, CPAP 04/04/24 12:00 O2 Flow Rate 2 03/30/24 13:00 FiO2 21 03/30/24 14:00 BMI result Body Mass Index 30.9 Gen: in no acute distress HEENT: sclera anicteric, moist mucus membranes Neck: supple, JVD Lungs: clear to auscultation bilaterally Heart: regular rate and rhythm, no murmurs Abd: soft, non-tender, non-distended Ext: no edema, LUE PICC Skin: warm/well-perfused, L plantar ulcer Neuro: alert and oriented x3, no focal findings Psych: appropriate affect DS: Data Data Completed and Pending Completed studies during hospitalization [Text1]: Laboratory Results WBC 12.4 X10*3/uL (4.8-10.8) H 04/04/24 06:13 RBC 4.63 X10*6/uL (4.60-5.80) 04/04/24 06:13 Hgb 10.2 g/dl (14.0-18.0) L 04/04/24 06:13 Hct 33.4 % (42.0-52.0) L 04/04/24 06:13 MCV 72.1 fL (80.0-98.0) L 04/04/24 06:13 MCH 22.0 pg (27.0-33.0) L 04/04/24 06:13 MCHC 30.5 g/dl (31.0-36.0) L 04/04/24 06:13 RDW 19.3 % (11.0-16.0) H 04/04/24 06:13 Plt Count 114 X10*3/uL (160-400) L 04/04/24 06:13 MPV 11.2 fL (9.4-12.4) 04/04/24 06:13 Immature Gran % (Auto) 1.2 % (0.0-0.4) H 03/31/24 06:20 Neut % (Auto) 80.5 % (45-73) H 03/31/24 06:20 Lymph % (Auto) 10.0 % (20-40) L 03/31/24 06:20 [place] % (Auto) 8.0 % (2-11) 03/31/24 06:20 Eos % (Auto) 0.2 % (0-4) 03/31/24 06:20 Baso % (Auto) 0.1 % (0-2) 03/31/24 06:20 Lymph # (Auto) 1.3 X10*3/uL (1.2-4.9) 03/31/24 06:20 [place] # (Auto) 1.0 X10*3/uL (0.1-1.2) 03/31/24 06:20 Eos # (Auto) 0.0 X10*3/uL (0.0-0.4) 03/31/24 06:20 Baso # (Auto) 0.0 X10*3/uL (0.0-0.2) 03/31/24 06:20 Abs Immat Gran (auto) 0.15 X10*3/uL (0.00-0.03) H 03/31/24 06:20 Absolute Neuts (auto) 10.5 x10*3/uL (2.0-8.3) H 03/31/24 06:20 Absolute Nucleated RBC 0.040 X10*3/uL (0.0-0.012) H 04/04/24 06:13 Nucleated RBC % (auto) 0.3 /100WBC (0.0-0.2) H 04/04/24 06:13 Smear Path Review SEE NOTE 03/28/24 10:23 ESR 13 MM/HR (0-15) 04/04/24 06:13 Hold Purple Top SEE NOTE 03/29/24 11:58 PT 34.5 SEC (10.9-12.4) H D 03/28/24 15:01 INR 3.0 (0.9-1.1) H 03/28/24 15:01 O2 Saturation 94.0 % 03/28/24 10:27 ABG pH at Pt Temp 7.28 (7.35-7.45) L 03/28/24 10:27 ABG pCO2 at Pt Temp 32 mmHg (32-45) 03/28/24 10:27 ABG pO2 at Pt Temp 85 mmHg (83-108) 03/28/24 10:27 ABG HCO3 15 mmol/L (22-26) L 03/28/24 10:27 ABG Base Excess (Actual) -9.6 mmol/L 03/28/24 10:27 VBG pH 7.39 (7.32-7.43) 03/31/24 06:25 VBG pCO2 41 mmHg 03/31/24 06:25 VBG pO2 86 mmHg 03/31/24 06:25 VBG HCO3 25 mmol/L (22-26) 03/31/24 06:25 VBG O2 Saturation 97.0 % 03/31/24 06:25 VBG Base Excess 0.5 mmol/L 03/31/24 06:25 Sodium 144 mmol/L (135-145) 04/04/24 06:13 Potassium 3.8 mmol/L (3.3-5.1) 04/04/24 06:13 Chloride 104 mmol/L (96-108) 04/04/24 06:13 Carbon Dioxide 31 mmol/L (22-29) H 04/04/24 06:13 Anion Gap 13 (12-20) 04/04/24 06:13 BUN 38 mg/dL (9-16) H 04/04/24 06:13 Creatinine 0.95 mg/dL (0.5-1.4) 04/04/24 06:13 Estim Creat Clear Calc 99.8 04/04/24 06:13 Estimated GFR > 60 04/04/24 06:13 POC Glucose 308 mg/dL (60-115) H 04/04/24 11:47 Random Glucose 56 mg/dL (60-115) L* 04/04/24 06:13 Lactic Acid 2.4 mmol/L (0.5-2.0) H* 03/29/24 02:07 Lactic Acid F/U @ 2Hr 1.2 mmol/L (0.5-2.0) 03/29/24 04:54 Calcium 8.6 mg/dL (8.4-10.2) 04/04/24 06:13 Phosphorus 5.6 mg/dL (2.7-4.5) H 03/31/24 06:20 Magnesium 2.4 mg/dL (1.6-2.6) 04/02/24 09:41 Total Bilirubin 1.5 mg/dL (0.0-1.0) H 03/31/24 06:20 Direct Bilirubin 0.7 mg/dL (0.0-0.5) H 03/29/24 11:54 AST 90 U/L (5-37) H 03/31/24 06:20 ALT 327 U/L (0-40) H 03/31/24 06:20 Alkaline Phosphatase 203 U/L (39-117) H 03/31/24 06:20 Ammonia 57 umol/L (13-55) H 03/28/24 10:23 Total Creatine Kinase 50 U/L (38-174) 04/03/24 06:14 Troponin I High Sens 19.8 ng/L (<3.5-35.0) D 03/23/24 12:27 C-Reactive Protein 3.40 mg/dL (< or = 0.50) H 04/04/24 06:13 B-Natriuretic Peptide 3151 pg/mL (<100) H 04/04/24 06:13 Total Protein 5.9 g/dL (6.5-8.0) L 03/31/24 06:20 Albumin 3.4 g/dL (3.5-5.0) L 03/31/24 06:20 Lipase 29 U/L (8-78) 03/23/24 13:21 25-OH Vitamin D Total 10 ng/mL (30-100) L 03/29/24 11:54 25-Hydroxy Vitamin D2 <4 ng/mL 03/29/24 11:54 25-Hydroxy Vitamin D3 10 ng/mL 03/29/24 11:54 Procalcitonin 0.12 ng/mL 03/23/24 13:21 PTH Intact 496.6 pg/mL (8.7-77.1) H 03/29/24 11:54 Urine Color Dark Yellow 03/28/24 11:15 Urine Appearance Cloudy 03/28/24 11:15 Urine pH 5.0 (5.0-9.0) 03/28/24 11:15 Ur Specific [place] 1.020 (1.005-1.025) 03/28/24 11:15 Urine Protein 30 (1+) mg/dL (Neg-Trace) H 03/28/24 11:15 Urine Glucose (UA) Negative mg/dL (Negative) 03/28/24 11:15 Urine Ketones Trace mg/dL (Negative) 03/28/24 11:15 Urine Blood Negative (Negative) 03/28/24 11:15 Urine Nitrite Negative (Negative) 03/28/24 11:15 Ur Leukocyte Esterase Negative (Negative) 03/28/24 11:15 Urine RBC 0-2 /HPF (0-2) 03/28/24 11:15 Urine WBC 0-5 /HPF (0-5) 03/28/24 11:15 Ur Squamous Epith Cells 6-10 /HPF (0-2) 03/28/24 11:15 Urine Bacteria None Seen (None Seen) 03/28/24 11:15 Hyaline Casts >20 /LPF (0-2) 03/28/24 11:15 U Random Total Protein 57 mg/dL (<12) H 03/28/24 11:15 Ur Random Sodium < 20.0 mmol/L 03/28/24 11:15 Urine Creatinine 82.39 mg/dL 03/28/24 11:15 Random Vancomycin 22.6 mcg/mL (15-20) H 03/27/24 21:04 Hep Bs Antigen Negative (Negative) 03/29/24 20:01 Hep Bs Antibody NONREACTIVE (Nonreactive) 03/29/24 20:01 Hep B Core Total Ab Nonreactive (Nonreactive) 03/29/24 20:01 Hepatitis C Ab (EIA) Nonreactive (Nonreactive) 03/29/24 20:01 Influenza Type A (PCR) NEGATIVE (Negative) 03/23/24 12:18 Influenza Type B (PCR) NEGATIVE (Negative) 03/23/24 12:18 RSV RNA Qual (PCR) NEGATIVE (Negative) 03/23/24 12:18 SARS-CoV-2 RNA (RT-PCR) NEGATIVE (Negative) 03/23/24 12:18 Impressions Foot X-Ray 03/23/24 12:30 IMPRESSION: 1. Soft tissue ulceration of the plantar side of foot near the metatarsophalangeal joint area. 2. Soft tissue gas throughout the forefoot mostly of the dorsum of the foot extending toward the ankle joint. 3. Soft tissue swelling of the second toe with gas in the soft tissues around the proximal phalanges. 4. No radiographic evidence for osteomyelitis. Electronically signed by: Mansoor Perez MD 03/23/2024 03:01 PM EDT RP Tibia/Fibula X-Ray 03/23/24 16:40 IMPRESSION: 6 mm long metallic structure overlying the region of what is likely the peroneal artery. Please correlate with any surgical or interventional history. Electronically signed by: Evgeny Lema MD 03/23/2024 06:06 PM EDT RP Foot CT 03/23/24 17:27 IMPRESSION: 1. Synovitis with soft tissue ulceration along the plantar aspect of the second metatarsophalangeal joint measuring up to 2.1 x 1.0 cm. Adjacent skin thickening with subcutaneous edema and enhancement. Peripherally enhancing, complex fluid extending deep to the second metatarsophalangeal joint, which could represent phlegmonous change or early abscess formation. 2. Soft tissue swelling/edema with extensive soft tissue emphysema adjacent to the second phalanx and extending along the dorsum of the forefoot to the level of the distal tibia. Findings are concerning for necrotizing fasciitis. 3. No cortical erosion or periosteal reaction; however, early osteomyelitis can be occult on CT examination and cannot be excluded. MRI could help further evaluate for acute osteomyelitis if clinically indicated. Electronically signed by: Shin Siddiqui MD 03/24/2024 09:06 AM EDT RP Duplex Scan Lower Extremity Artery 03/25/24 10:00 IMPRESSION: There are delayed arterial upstroke suggesting inflow disease. There is monophasic flow in the posterior tibial artery. Electronically signed by: Cesar Llamas MD 03/25/2024 11:48 AM EDT RP Renal Ultrasound 03/27/24 13:56 IMPRESSION: A 5 mm echogenic focus in the right kidney could be a calculus or vascular calcification. There is no hydronephrosis or any other obvious cause for the patient's acute renal failure. Electronically signed by: Evgeny Lema MD 03/27/2024 09:39 PM EDT RP Abdomen/Pelvis CT 03/28/24 19:24 IMPRESSION: 1. There is mild hepatomegaly without discrete mass or bile duct dilatation. 2. Incidental note made of cardiomegaly, small left pleural effusion, calcified pleural plaques, colonic diverticulosis without diverticulitis and degenerative changes in the spine. Fleischner guidelines were followed. Electronically signed by: Evgeny Lema MD 03/28/2024 09:44 PM EDT RP Head CT 03/29/24 01:53 IMPRESSION: CT head: No acute intracranial finding. CT cervical spine: No cervical spine fracture or traumatic malalignment identified. Electronically signed by: Ash Berg MD 03/29/2024 07:18 AM EDT RP Cervical Spine CT 03/29/24 02:05 IMPRESSION: CT head: No acute intracranial finding. CT cervical spine: No cervical spine fracture or traumatic malalignment identified. Electronically signed by: Ash Berg MD 03/29/2024 07:18 AM EDT RP WBC Scan Nuclear Medicine 03/29/24 07:45 IMPRESSION: Incomplete study. Although the flow and blood pool images show a mild diffuse increase in flow and blood pool activity in the left distal lower extremity, delayed static images were canceled and the evaluation of this study for active infection cannot be performed. Electronically signed by: Eladio Hernandez MD 03/30/2024 11:18 AM EDT RP KUB X-Ray 03/30/24 15:10 IMPRESSION: 1. No displaced osseous fractures. 2. Similar to slightly increased interstitial markings and trace amount of right-sided pleural fluid. Findings are nonspecific and could be associated with interstitial edema. 3. Nonobstructive bowel gas pattern. Moderate stool burden. Electronically signed by: Lenora Gomez MD 03/30/2024 04:36 PM EDT RP Chest X-Ray 04/03/24 12:35 IMPRESSION: 1. New left PICC line terminates in the superior vena cava. 2. No pneumothorax. 3. Probable decrease in fluid in the minor fissure and slight increased patchy opacity at the right lung base. Electronically signed by: Roopa Beltrán MD 04/03/2024 01:23 PM EDT RP Discharge Plan Discharge Anticipated Discharge Date/Time: 04/04/24 13:05 Patient Disposition: Home Health Service Discharge Diagnosis: sepsis due to infected diabetic foot ulcer acute kidney injury due to acute tubular necrosis acute metabolic encephalopathy due to uremia atrial fibrillation COPD exacerbation acute hypoxia due to CHF exacerbation Referrals: [facility] Wound Care Management [Provider Group] - 1 Week Phi Crisostomo FNP- [Primary Care Provider] - 1 Week Lolita Preez MD [Physician] - 1 Week Bakari Andrew MD [Physician] - 2 Weeks Discharge Medications: New daptomycin 500 mg recon soln 600 mg IV Q24H Rx Instructions: administer over 30 mins hydralazine 10 mg Tablet 10 mg PO TID Qty: 90 0RF Protocol: Hold for SBP< HOLD for SBP < : 90 metoprolol succinate 25 mg Tablet Extended Release 24 Hr 25 mg PO DAILY Qty: 30 0RF Protocol: Hold for SBP/HR < HOLD for SBP < : 90 HOLD for HR < : 60 isosorbide dinitrate 5 mg Tablet 5 mg PO 0800,1300,1800 Qty: 90 0RF Protocol: Hold for SBP< HOLD for SBP < : 90 sodium chloride 0.9 % (flush) [Normal Saline Flush] Syringe 5 ml IVFLUSH TID Qty: 1 0RF ertapenem 1 gram recon soln 1 g IV DAILY Qty: 1 0RF Continued (DME) pen needle, diabetic [BD Ultra-Fine Mini Pen Needle] 31 gauge x 3/16 needle See Rx Instructions .Route Qty: 400 1RF Rx Instructions: As directed to inject insulin 4 times per day albuterol sulfate [Ventolin HFA] 90 mcg/actuation HFA aerosol inhaler 2 puff PO Q6H PRN (Reason: wheezing) Qty: 18 1RF torsemide 20 mg tablet 20 mg PO Q48H (DME) diabetic shoes with custom insert for left shoe See Rx Instructions .Route .MEDSUPPLY Qty: 1 0RF Rx Instructions: As directed amiodarone 200 mg tablet 200 mg PO DAILY Qty: 30 0RF aspirin [Adult Low Dose Aspirin] 81 mg tablet,delayed release (DR/EC) 81 mg PO DAILY Qty: 90 1RF melatonin 3 mg tablet 3 mg PO BEDTIME Qty: 90 1RF omeprazole 20 mg capsule,delayed release(DR/EC) 20 mg PO DAILY@0630 90 Days Qty: 90 1RF thiamine HCl (vitamin B1) 100 mg tablet 100 mg PO DAILY Qty: 90 1RF sertraline 25 mg tablet 25 mg PO DAILY Qty: 90 1RF (DME) FreeStyle Samantha 3 Sensor Device See Rx Instructions .Route Qty: 6 1RF Rx Instructions: Test blood sugar TID (DME) FreeStyle Lite Strips Strip See Rx Instructions .Route Qty: 300 1RF Rx Instructions: TID testing gabapentin 300 mg capsule 300 mg PO TID Qty: 270 1RF sennosides [senna] 8.6 mg tablet 17.2 mg PO BEDTIME albuterol sulfate 2.5 mg /3 mL (0.083 %) solution for nebulization 2.5 mg inhalation Q6H PRN (Reason: Shortness Of Breath Or Wheezing) fluticasone propion-salmeterol [Advair HFA] 45-21 mcg/actuation Hfa Aerosol Inhaler 2 puff INHALATION BID Eliquis 5 mg tablet 5 mg PO BID Jardiance 10 mg tablet 10 mg PO DAILY insulin glargine [Lantus Solostar U-100 Insulin] 100 unit/mL (3 mL) insulin pen 17 unit subcut BEDTIME acetaminophen 325 mg Tablet 650 mg PO Q6H PRN (Reason: Pain, Moderate) insulin lispro 100 unit/mL Solution 7 unit SUBCUT TIDAC colchicine 0.6 mg Tablet 0.6 mg PO DAILY Discontinued metoprolol succinate 100 mg tablet extended release 24 hr 100 mg PO DAILY Discharge Orders: Discharge Order (Routine); Ordered 04/04/24 Ordered By: Franky Rodriguez Diet: Diabetic diet Activity on Discharge: As tolerated Stand Alone Forms: Patient Portal Discharge page Print Language: Syriac Activity Restrictions/Additional Instructions: Topical Wound Care Recommendations: 1. When applicable maintain blood glucose levels per Providers order. 2. Left Plantar foot - Off Load Pressure - Cleanse and irrigate with NS, Pat dry.? Apply barrier to periwound, lightly pack with Durafiber AG, be sure to leave a wick to easy removal.? Cover with dry gauze, gauze wrap.? Change every other day. Recommend continued follow up out patient Wound Clinic at [address] [place] [address] and to call for an appointment at time of discharge. [phone].? Care Plan Goals: cure of infection Health Concerns: sepsis due to infected diabetic foot ulcer acute kidney injury due to acute tubular necrosis acute metabolic encephalopathy due to uremia atrial fibrillation COPD exacerbation acute hypoxia due to CHF exacerbation Plan of Treatment: home with VNA services daptomycin 600 mg IV daily PLUS ertapenem 1 g IV daily until 05/14/24; weekly CBCd, CPK, and BMP follow up with [facility] Infectious Disease in 1 week decrease metoprolol succinate from 100 to 25 mg daily start hydralazine 10 mg 3x a day start isosorbide dinitrate 5 mg 3x a day continue torsemide 20 mg every 2 days wound care as above follow up with [facility] Wound Care in 1 week follow up with Dr Leal from Vascular Surgery in 1 month follow up with [facility] Cardiology in 2 weeks Please follow up with your primary care doctor within 1 week. Return to the hospital if you experience recurrent or worsening symptoms. Assessment: See Discharge Summary.
[2024-04-04] MEDS: Insulin Lispro 100 UNIT/ML 3 ML VIAL SUBCUT (13:30)
--- NOTE | 2024-04-04 14:04 | MHC.CM.PN ---
Second IMM 04/04/24, Pt has been medically cleared for DC. He will go home on IV ABX, have home infusion services from [facility] [place], and his HCP will be taught how to manage this. He will resume his [facility] care from [facility] for med management and wound care. [facility] is not able to manage his IV ABX at all. Pt will arrange his own transportation home.
[2024-04-04] MEDS: oxyCODONE HCl Immed Release 5 MG TABLET 2.5 MG PO (14:35)
[2024-04-04] MEDS: Ertapenem Sodium 1 GM in 0.9 % Sodium Chloride 50 ML IV (15:19)
[2024-04-04] MEDS: DAPTOmycin 600 MG in 0.9 % Sodium Chloride 50 ML 106 MG IV (17:37)
[2024-04-04] MEDS: 0.9 % Sodium Chloride Flush 10 ML SYRINGE 5 ML IVFLUSH (17:50)
== END 2024-04-04 18:36 | disposition home health service (06) | DRG 871 ==
LOC: HO.ED 12:52 → HO.EDOVER 16:36 → HO.IMC 17:08 → HO.ICU 03-29 09:53 → HO.IMC 03-30 14:27
PROVIDERS: Hospitalist; Internal Medicine; Internal Medicine Hypertension Specialist; Internal Medicine Pulmonary Disease; Nurse Practitioner Acute Care; Nurse Practitioner Family; Physician Assistant; Physician Assistant Surgical; Registered Nurse Community Health; Student in an Organized Health Care Education/Training Program; Admitting Provider Physician Assistant Medical; Emergency Provider Student in an Organized Health Care Education/Training Program; PCP Nurse Practitioner Family; Visit Provider Family Medicine
DX: A41.9 Sepsis, unspecified organism (principal); G93.41 Metabolic encephalopathy; J96.01 Acute respiratory failure with hypoxia; N17.0 Acute kidney failure with tubular necrosis; I50.23 Acute on chronic systolic (congestive) heart failure; L03.116 Cellulitis of left lower limb; J44.1 Chronic obstructive pulmonary disease with (acute) exacerbation; L97.525 Non-pressure chronic ulcer of other part of left foot with muscle involvement without evidence of necrosis; E87.1 Hypo-osmolality and hyponatremia; E87.20 Acidosis, unspecified; I47.10 Supraventricular tachycardia, unspecified; I25.10 Atherosclerotic heart disease of native coronary artery without angina pectoris; Z95.810 Presence of automatic (implantable) cardiac defibrillator; I48.0 Paroxysmal atrial fibrillation; N40.0 Benign prostatic hyperplasia without lower urinary tract symptoms; E11.65 Type 2 diabetes mellitus with hyperglycemia; F39 Unspecified mood [affective] disorder; G47.33 Obstructive sleep apnea (adult) (pediatric); E87.5 Hyperkalemia; E11.621 Type 2 diabetes mellitus with foot ulcer; I95.2 Hypotension due to drugs; T40.2X5A Adverse effect of other opioids, initial encounter; E11.51 Type 2 diabetes mellitus with diabetic peripheral angiopathy without gangrene; I25.5 Ischemic cardiomyopathy; F17.210 Nicotine dependence, cigarettes, uncomplicated; T36.8X5A Adverse effect of other systemic antibiotics, initial encounter; Z20.822 Contact with and (suspected) exposure to COVID-19; Z71.6 Tobacco abuse counseling; Z95.5 Presence of coronary angioplasty implant and graft; Z23 Encounter for immunization; Z79.4 Long term (current) use of insulin; Z79.01 Long term (current) use of anticoagulants; Z79.51 Long term (current) use of inhaled steroids; Z79.899 Other long term (current) drug therapy
CPT/HCPCS: 0241U; 36415; 36556; 36573; 36589; 36600; 70450; 71045; 72125; 73590; 73630; 73701; 74018; 74176; 76775; 78306; 80048; 80053; 80076; 80202; 81001; 82040; 82140; 82306; 82550; 82565; 82570; 82803; 82947; 83605; 83690; 83735; 83880; 83970; 84100; 84132; 84145; 84156; 84300; 84484; 85025; 85027; 85610; 85652; 86140; 86704; 86706; 86803; 87040; 87340; 90656; 90999; 93005; 93308; 93926; 94640; 94660; 97161; 99285; A9569; C1751; C1752; C1758; C1769; J0613; J0692; J0736; J0878; J1170; J1171; J1335; J1644; J1650; J1939; J1940; J2150; J2185; J2270; J2310; J2405; J2919; J3370; J3371; J3430; J7120; P9047; Q9957; Q9967

== ENCOUNTER 2024-03-23 16:22 | Outpatient (BNV) | payer OTHER, SELFPAY | END 2024-03-29 14:00 | PROVIDERS: Admitting Provider Physician Assistant Medical; Emergency Provider Student in an Organized Health Care Education/Training Program; PCP Nurse Practitioner Family; Visit Provider Student in an Organized Health Care Education/Training Program | DX: N17.9 Acute kidney failure, unspecified (principal) | CPT/HCPCS: 36556; 76937; 77001 ==

== ENCOUNTER 2024-03-23 16:22 | Outpatient (BNV) | payer OTHER, SELFPAY | END 2024-04-03 07:00 | PROVIDERS: Admitting Provider Physician Assistant Medical; Emergency Provider Student in an Organized Health Care Education/Training Program; PCP Nurse Practitioner Family; Visit Provider Internal Medicine Cardiovascular Disease | DX: I50.23 Acute on chronic systolic (congestive) heart failure (principal); I27.20 Pulmonary hypertension, unspecified | CPT/HCPCS: 93308; 93321 ==

== ENCOUNTER 2024-03-23 16:22 | Outpatient (BNV) | payer OTHER, SELFPAY | END 2024-03-29 07:00 | PROVIDERS: Admitting Provider Physician Assistant Medical; Emergency Provider Student in an Organized Health Care Education/Training Program; PCP Nurse Practitioner Family; Visit Provider Internal Medicine Cardiovascular Disease | DX: I27.20 Pulmonary hypertension, unspecified (principal); I51.89 Other ill-defined heart diseases | CPT/HCPCS: 93308 ==

== ENCOUNTER → 2024-03-23 16:22 | Outpatient (BNV) | payer OTHER, SELFPAY | PROVIDERS: Admitting Provider Physician Assistant Medical; Emergency Provider Student in an Organized Health Care Education/Training Program; PCP Nurse Practitioner Family; Visit Provider Surgery Vascular Surgery | DX: I73.9 Peripheral vascular disease, unspecified (principal); E11.621 Type 2 diabetes mellitus with foot ulcer; L97.521 Non-pressure chronic ulcer of other part of left foot limited to breakdown of skin | CPT/HCPCS: 99222 ==

== ENCOUNTER → 2024-03-23 16:22 | Outpatient (BNV) | payer OTHER, SELFPAY | PROVIDERS: Admitting Provider Physician Assistant Medical; Emergency Provider Student in an Organized Health Care Education/Training Program; PCP Nurse Practitioner Family; Visit Provider Surgery | DX: L97.525 Non-pressure chronic ulcer of other part of left foot with muscle involvement without evidence of necrosis (principal) | CPT/HCPCS: 99222; 99232 ==

== ENCOUNTER → 2024-03-23 16:22 | Outpatient (BNV) | payer OTHER, SELFPAY | PROVIDERS: Admitting Provider Physician Assistant Medical; Emergency Provider Student in an Organized Health Care Education/Training Program; PCP Nurse Practitioner Family; Visit Provider Physician Assistant Medical | DX: I50.23 Acute on chronic systolic (congestive) heart failure (principal); G93.41 Metabolic encephalopathy | CPT/HCPCS: 99223; 99232; 99233; 99239; 99499; G0180 ==

== ENCOUNTER → 2024-03-23 16:22 | Outpatient (BNV) | payer OTHER, SELFPAY | PROVIDERS: Admitting Provider Physician Assistant Medical; Emergency Provider Student in an Organized Health Care Education/Training Program; PCP Nurse Practitioner Family; Visit Provider Internal Medicine | DX: I50.23 Acute on chronic systolic (congestive) heart failure (principal); I48.0 Paroxysmal atrial fibrillation | CPT/HCPCS: 99223; 99233 ==

== ENCOUNTER → 2024-03-23 16:22 | Outpatient (BNV) | payer OTHER, SELFPAY | PROVIDERS: Admitting Provider Physician Assistant Medical; Emergency Provider Student in an Organized Health Care Education/Training Program; PCP Nurse Practitioner Family; Visit Provider Physician Assistant Surgical | DX: Z99.2 Dependence on renal dialysis (principal) | CPT/HCPCS: 36589 ==

== ENCOUNTER → 2024-03-23 16:22 | Outpatient (BNV) | payer OTHER, SELFPAY | PROVIDERS: Admitting Provider Physician Assistant Medical; Emergency Provider Student in an Organized Health Care Education/Training Program; PCP Nurse Practitioner Family; Visit Provider Internal Medicine Pulmonary Disease | DX: E87.20 Acidosis, unspecified (principal); N17.9 Acute kidney failure, unspecified; I50.23 Acute on chronic systolic (congestive) heart failure; G93.41 Metabolic encephalopathy; E11.621 Type 2 diabetes mellitus with foot ulcer; L97.509 Non-pressure chronic ulcer of other part of unspecified foot with unspecified severity | CPT/HCPCS: 99233; 99291 ==

== ENCOUNTER → 2024-03-23 16:22 | Outpatient (BNV) | payer OTHER, SELFPAY | PROVIDERS: Admitting Provider Physician Assistant Medical; Emergency Provider Student in an Organized Health Care Education/Training Program; PCP Nurse Practitioner Family; Visit Provider Internal Medicine | DX: I50.23 Acute on chronic systolic (congestive) heart failure (principal); G93.41 Metabolic encephalopathy; I73.9 Peripheral vascular disease, unspecified | CPT/HCPCS: 99222; 99499 ==

== ENCOUNTER → 2024-03-23 16:22 | Outpatient (BNV) | payer OTHER, SELFPAY | PROVIDERS: Admitting Provider Physician Assistant Medical; Emergency Provider Student in an Organized Health Care Education/Training Program; PCP Nurse Practitioner Family; Visit Provider Nurse Practitioner Family | DX: N17.9 Acute kidney failure, unspecified (principal); E11.621 Type 2 diabetes mellitus with foot ulcer; L97.509 Non-pressure chronic ulcer of other part of unspecified foot with unspecified severity; E87.5 Hyperkalemia | CPT/HCPCS: 90935; 99222; 99232 ==

== ENCOUNTER 2024-04-13 12:42 | Outpatient (AMB) | payer OTHER, SELFPAY ==
--- NOTE | 2024-04-13 12:52 | A.OFFVIS_ITS ---
Intake Visit Reasons: 1y/PVR(set) Intake Note: Patient presents today for follow up on: BPH, Erectile Dysfunction, and PSA labs PSA: 0.38 Urology Medications: none Blood Thinner: apixaban/aspirin Autom[employer] Service Assistant Required: No Accompanied by: Self / Same As Patient Allergies No Known Allergies [No Known Allergies*] Allergy (Verified 04/14/24 09:23) Medication List - Last Reconciled 04/14/24 by SAVANAH Rodrigues acetaminophen 650 mg PO Q6H PRN albuterol sulfate 2.5 mg inhalation Q6H PRN amiodarone 200 mg PO DAILY apixaban (Eliquis) 5 mg PO BID aspirin (Adult Low Dose Aspirin) 81 mg PO DAILY blood-glucose sensor (FreeStyle Samantha 3 Sensor device) Test blood sugar TID colchicine 0.6 mg PO DAILY daptomycin 600 mg IV Q24H [diabetic shoes with custom insert for left shoe As directed] empagliflozin (Jardiance) 10 mg PO DAILY ertapenem 1 g IV DAILY fluticasone propion-salmeterol 45-21 mcg/actuation (Advair HFA) 2 puffs inhalation BID FreeStyle Lite Strips (blood sugar diagnostic) TID testing NS gabapentin 300 mg PO TID hydralazine 10 mg See Protocol PO TID insulin glargine (Lantus Solostar U-100 Insulin) 17 units subcut BEDTIME insulin lispro 7 units subcut TIDAC isosorbide dinitrate 5 mg See Protocol PO 0800,1300,1800 melatonin 3 mg PO BEDTIME metoprolol succinate ER 25 mg See Protocol PO DAILY omeprazole 20 mg PO DAILY@0630 90 days pen needle, diabetic (BD Ultra-Fine Mini Pen Needle) As directed to inject insulin 4 times per day sennosides (senna) 17.2 mg PO BEDTIME sertraline 25 mg PO DAILY sodium chloride 0.9 % (flush) (Normal Saline Flush 0.9 % injection syringe) 5 mL IVFLUSH TID thiamine HCl (vitamin B1) 100 mg PO DAILY torsemide 20 mg PO Q48H Ventolin HFA 90 mcg/actuation (albuterol sulfate) 2 puffs PO Q6H PRN NS HPI Comments Details: Idris is a pleasant 58-year-old male patient of Dr. Dennis. He presents to the office today for a follow-up of his microscopic hematuria in the setting of nicotine dependence and erectile dysfunction. In discussion with the patient today reports since his last office visit here approximately 1 year ago he has had multiple hospitalizations due to ongoing cardiac, vascular, and pulmonology issues. He discusses this Wednesday he will be admitted to [facility] to undergo more amputations to his left foot. He reports currently being on IV antibiotics with PICC line to the left upper extremity for osteomyelitis. He discusses the recent loss of his dog and breaking up with his girlfriend of 13 years. He currently denies any bothersome urinary issues. Unable to obtain urine for urinalysis as patient unable to void. Previous workup has included a CT urogram 11/17 that noted bilateral kidneys with no calculi, lesions, and or hydronephrosis noted. The bladder is opacified with excreted urinary contrast and appears unremarkable. There is no bladder wall thickening.?Cytology 10/18--negative for high-grade urethral carcinoma. Discussed at length with patient in office cystoscopy to complete microscopic hematuria workup however patient declines at this time. Discussed at length potential causes for microscopic hematuria. Recent PSA and testosterone results reviewed with the patient today. PSA 06/17 0.5, 11/17 0.2, 02/18 0.4 Testosterone 11/17 350 He discusses currently is not looking to undergo further treatment options for erectile dysfunction given his multiple medical issues. We discussed importance of obtaining urine for urine cytology as well as in office cystoscopy however patient continues to decline and would like to deal with his current medical issues per patient request. When asked he denies denies urinary urgency, urinary frequency, incontinence, nocturia, hematuria, dysuria, foul smelling urine, deutsch ges to urinary stream, flank pain, fever, and or chills. Discussed at length the importance of managing diabetes and quitting nicotine dependence for improvement in ED issues as well as in overall health and well-being. [facility]LY [facility] Medical History Acute on chronic HFrEF (heart failure with reduced ejection fraction) History of osteomyelitis 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 Diverticulosis Tubular adenoma of colon (~2018) History of COVID-19 Nicotine dependence, cigarettes, uncomplicated Hypertensive retinopathy Microhematuria ICD (implantable cardioverter-defibrillator) in place COPD (chronic obstructive pulmonary disease) KIMANI (obstructive sleep apnea) Sleep apnea CAD (coronary artery disease) Paroxysmal atrial fibrillation (~2017) Surgical History History of amputation of left great toe History of cardiac cath History of ankle surgery History of implantable cardiac defibrillator (ICD) History of colonoscopy History of heart artery stent History of cardiac radiofrequency ablation History of cardioversion History of esophagogastroduodenoscopy History of umbilical hernia History of inguinal hernia Family History Father Atherosclerosis Mother Cerebral aneurysm Maternal Grandmother Unknown family medical history Mother Cerebral hemorrhage Father Coronary artery disease Social History Household Members: None Housing: House Are you a primary home care associate to a significant other at home: No Do you presently have visiting nurse or other home services: Yes Alcohol intake: former Comment: sitter at bedside Patient Tobacco Use Status: Current everyday Tobacco user Tobacco use type: Cigarette Cigarette Packs Per Day: 1 Years Smoked: (current smoker - onset 14yo, 1ppd x 43yrs, 40pyh) e-Cigarette/Vaping Use: Never Used Second Hand Smoke Exposure: Yes Advance Directives Date on File: 07/09/21 service: No Current occupational status: unemployed and disabled Current occupation: rt handed Cognitive needs: No Hearing needs: No Vision needs: Yes Review of Systems Const All systems reviewed & are unremarkable except as noted in HPI and below Reports no additional complaints Eyes Reports no additional complaints ENT Reports no additional complaints Card Reports as per HPI Resp Reports as per HPI GI Reports no additional complaints Reports as per HPI Musc Reports as per HPI Skin/Breast Reports as per HPI Neuro Reports no additional complaints Psych Reports no additional complaints Endo Reports as per HPI Physical Exam Const General: cooperative, healthy appearing, comfortable, no acute distress, well developed, alert and awake Orientation/consciousness: patient oriented x3 Limitations: ambulation with cane HEENT Head: Yes normal to inspection, Yes normocephalic and Yes atraumatic Ears: hearing grossly normal bilaterally Eyes General: appearance normal, both eyes and all related structures Neck Neck: Yes normal visual inspection and Yes trachea midline Chest Chest palpation & inspection: normal inspection of the chest Resp Effort & Inspection: normal respiratory effort and able to speak in complete sentences Cardio Rate: regular rate GI Inspection: Yes normal to inspection Rectal Exam - Male: Yes deferred General: Yes no CVA tenderness Back/Spine/Pelvis Back: no CVA tenderness Skin General skin exam: no rashes or lesions noted Neuro General: patient oriented x3 Extrem Other: left foot in brace General: Yes normal to inspection Psych Appearance: grossly normal and well kempt Mental Status: mental status grossly normal Speech and movement: Normal speech and movement present and Clear speech present Affect: normal affect Attitude: cooperative Thought process: Normal thought process present Thought content: Normal thought content present Insight: Fair insight present (Psych) Judgement: Fair judgement present (Psych) Office Procedures Post Void Residual Post Residual Void Post Void Residual (PVR): 144 [id number] Void Residual by ultrasound Assessment & Plan Assessment & Plan (1) Erectile dysfunction associated with type 2 diabetes mellitus: Code(s): E11.69 - Type 2 diabetes mellitus with other specified complication; N52.1 - Erectile dysfunction due to diseases classified elsewhere Category: Medical (2) Microhematuria: Comment: (Trace blood on & 12/16/21 UAs - normal cytology 11/2021) Code(s): R31.29 - Other microscopic hematuria Category: Medical (3) Nicotine dependence: Code(s): F17.200 - Nicotine dependence, unspecified, uncomplicated Category: Medical Plan Unable to obtain urine for urinalysis as patient unable to void. We discussed at length potential causes of erectile dysfunction as well as microscopic hematuria in the setting of nicotine dependence; this was discussed at length. We discussed further treatment options to include in office cystoscopy however patient declines at this time. Will continue with surveillance monitoring per patient request; we did discuss possible delay in treatment. He is aware. He currently denies any bothersome urinary issues. He reports be happy with current voiding parameters. Recent PSA results reviewed with the patient today; as noted above. Discussed, educated, and stressed the importance of quitting nicotine dependence for overall health and well-being. Follow-up in 6 months; or sooner with any issues, concerns, and or questions. Orders: Orders AMB Post Void Residual by ultrasound 04/13/24 N40.0 - Benign prostatic hyperplasia without lower urinary tract symptoms Urine Cytology Today F17.200 - Nicotine dependence, unspecified, uncomplicated, R31.29 - Other microscopic hematuria Patient Instructions: The patient had an opportunity to ask questions regarding the treatment plan. All questions were answered. Physical exam, labs, and imaging were discussed and reviewed in detail. As well as risks, benefits, and discussion of treatment choices. No major barriers to understanding were identified. The patient expressed understanding and agreement with the above treatment plan. The patient was made aware they should contact our office by phone for worsening of their current condition, the appearance of new symptoms, or with any questions or concerns. Compliance is encouraged with any medications and follow up testing that is ordered. It is a privilege to be allowed the opportunity to participate in? your urological care.? Again, if you have any questions or concerns If you have any questions or concerns please do not hesitate to contact me. The office is [phone]. This note is constructed using voice recognition software. While every effort has been made to ensure accuracy flower maker errors may have been included. Yours sincerely, SAVANAH Rodrigues Coding Level of Care Code Est Pt Level 4 (68476) Complex EM visit Add On G2211 Diagnoses Erectile dysfunction associated with type 2 diabetes mellitus E11.69; N52.1 Microhematuria R31.29 Nicotine dependence F17.200 CPT Codes Post Residual Void - PVR CPT Code: 43821-Yiaj Void Residual by ultrasound ([id number]) Time Spent (min) 30
== END 2024-04-13 13:26 | disposition home or self-care (01) ==
PROVIDERS: Visit Provider Nurse Practitioner Family
DX: E11.69 Type 2 diabetes mellitus with other specified complication (principal); N52.1 Erectile dysfunction due to diseases classified elsewhere; R31.29 Other microscopic hematuria; F17.200 Nicotine dependence, unspecified, uncomplicated
CPT/HCPCS: 99214; G2211

== ENCOUNTER → 2024-04-13 12:42 | Outpatient (BNVA) | payer OTHER, SELFPAY | PROVIDERS: Visit Provider Nurse Practitioner Family | DX: R31.29 Other microscopic hematuria (principal); E11.69 Type 2 diabetes mellitus with other specified complication; N52.1 Erectile dysfunction due to diseases classified elsewhere; N40.0 Benign prostatic hyperplasia without lower urinary tract symptoms; F17.210 Nicotine dependence, cigarettes, uncomplicated | CPT/HCPCS: 51798; 99212 ==

== ENCOUNTER 2024-04-19 16:33 | Inpatient (IN) | payer OTHER, SELFPAY ==
[2024-04-19] VITALS (8 sets, daily range): BP systolic 97–114; BP diastolic 47–64; PULSE 80–90; RESP 16–26; TEMP 36.6–37.1; O2SAT 90–100; BMI 31.2
--- NOTE | ~2024-04-19 | XR_ITS ---
EXAMINATION: XR FOOT, LEFT CLINICAL INFORMATION: Pain COMPARISON: CT foot on 03/23/24 TECHNIQUE: AP, lateral, and oblique views of the left foot. FINDINGS: Post surgical changes from 1st metatarsal amputation. There is an ossific fragment adjacent to the proximal phalanx of the second digit of unclear etiology. There is severe atherosclerotic disease. XR/XR foot LT 2V IMPRESSION: Ossific fragment adjacent to the proximal phalanx of the second digit of unclear etiology. Recommend correlation with point tenderness. Electronically signed by: Kanika Alfonso MD 04/19/2024 07:45 PM EDT
--- NOTE | ~2024-04-19 | XR_ITS ---
EXAMINATION: XR CHEST CLINICAL INFORMATION: SOB COMPARISON: chest xray on 04/03/24 TECHNIQUE: Frontal view of the chest was obtained. FINDINGS: The cardiac silhouette is normal. There is mild diffuse bronchial wall thickening. There are no areas of consolidation. Trace right pleural effusion. XR/XR chest 1V IMPRESSION: Bronchial wall thickening may be infectious and/or inflammatory in etiology. Trace right pleural effusion. Electronically signed by: Kanika Alfonso MD 04/19/2024 07:45 PM EDT
--- NOTE | ~2024-04-19 | US_ITS ---
EXAMINATION: US TRIPLEX LOWER EXTREMITY, LEFT CLINICAL INFORMATION: Swelling COMPARISON: None available. TECHNIQUE: Color-flow triplex imaging with spectral analysis and compression Doppler were performed on the left lower extremity. FINDINGS: Respiratory variation, normal compression and augmented flow are noted throughout the left lower extremity. The visualized common femoral vein, superficial femoral vein, profunda femoral vein, popliteal vein and midcalf peroneal and posterior tibial venous segments show no evidence of deep venous thrombosis. There is no Owens's cyst. US/US venous duplex LE LT IMPRESSION: No evidence of deep venous thrombosis involving the left lower extremity. Electronically signed by: Kanika Alfonso MD 04/19/2024 07:46 PM EDT RP
--- NOTE | 2024-04-19 17:07 | ECG_ITS ---
Test Reason : sob Blood Pressure : / mmHG Vent. Rate : 090 BPM Atrial Rate : 090 BPM P-R Int : 210 ms QRS Dur : 112 ms QT Int : 380 ms P-R-T Axes : 059 -12 184 degrees QTc Int : 464 ms Sinus rhythm with 1st degree A-V block with occasional Premature ventricular complexes Low voltage QRS Cannot rule out Anterior infarct , age undetermined Abnormal ECG When compared with ECG of 02-APR-2024 06:20, Sinus rhythm has replaced Afib. QRS duration has decreased Minimal criteria for Anterior infarct are now Present QT has lengthened Referred By: Richard Guan Electronically Signed By:Jaspreet Montoya
--- NOTE | 2024-04-19 17:35 | ED_ITS ---
HPI - General Adult General Chief complaint: Dyspnea Stated complaint: fluid retention in legs, diff breathing Time Seen by Provider: 04/19/24 17:06 History of Present Illness ED Provider: Freida [facility] [employer] [facility] narrative: 58-year-old male with past medical history of diabetes, diabetic foot status post left great toe amputation, AFib, cardiomyopathy status post pacemaker, CHF, recent admission for left foot infection now with feeding PICC line for IV antibiotics presenting for shortness of breath and fluid retention. Patient states that he has been experiencing worsening shortness of breath and body swelling over the past week. He has noticed edema to his left lower extremity more than his right he is also noticing some sacral edema. He denies cough, fevers, chest pain. Related Data Home Medications ?Medication ?Instructions ?Recorded ?Confirmed acetaminophen 325 mg tablet 650 mg PO Q6H PRN Pain, Moderate 11/18/23 04/05/24 colchicine 0.6 mg tablet 0.6 mg PO DAILY 11/18/23 04/05/24 insulin glargine 100 unit/mL (3 17 unit subcut BEDTIME 11/18/23 04/05/24 mL) subcutaneous pen (Lantus Solostar U-100 Insulin) insulin lispro 100 unit/mL 7 unit subcut TIDAC 11/18/23 04/05/24 subcutaneous solution torsemide 20 mg tablet 20 mg PO Q48H 12/20/23 04/05/24 albuterol sulfate 2.5 mg/3 mL 2.5 mg inhalation Q6H PRN 03/23/24 04/05/24 (0.083 %) solution for nebulization Shortness Of Breath Or Wheezing apixaban 5 mg tablet (Eliquis) 5 mg PO BID 03/23/24 04/05/24 empagliflozin 10 mg tablet 10 mg PO DAILY 03/23/24 04/05/24 (Jardiance) fluticasone propionate 45 2 puff inhalation BID 03/23/24 04/05/24 mcg-salmeterol 21 mcg/actuation HFA inhaler (Advair HFA) sennosides 8.6 mg tablet (senna) 17.2 mg PO BEDTIME 03/23/24 04/05/24 Previous Rx's ?Medication ?Instructions ?Recorded pen needle, diabetic 31 gauge x #400 ea 10/12/2209/10 (BD Ultra-Fine Mini Pen Needle) Ventolin HFA 90 mcg/actuation 2 puff PO Q6H PRN wheezing #18 10/15/23 aerosol inhaler (albuterol sulfate) grams diabetic shoes with custom insert #1 ea 12/31/23 for left shoe amiodarone 200 mg tablet 200 mg PO DAILY #30 tabs 01/26/24 aspirin 81 mg tablet,delayed 81 mg PO DAILY #90 tabs 01/26/24 release (Adult Low Dose Aspirin) melatonin 3 mg tablet 3 mg PO BEDTIME insomnia #90 tabs 01/26/24 omeprazole 20 mg capsule,delayed 20 mg PO DAILY@0630 90 days #90 01/26/24 release caps sertraline 25 mg tablet 25 mg PO DAILY #90 tabs 01/26/24 thiamine HCl (vitamin B1) 100 mg 100 mg PO DAILY #90 tabs 01/26/24 tablet blood-glucose sensor (FreeStyle #6 ea 02/29/24 Samantha 3 Sensor device) FreeStyle Lite Strips (blood sugar #300 ea 03/11/24 diagnostic) gabapentin 300 mg capsule 300 mg PO TID #270 caps 03/12/24 daptomycin 500 mg intravenous 600 mg IV Q24H 04/04/24 solution ertapenem 1 gram solution for 1 g IV DAILY #1 ea 04/04/24 injection hydralazine 10 mg tablet 10 mg PO TID #90 tabs 04/04/24 isosorbide dinitrate 5 mg tablet 5 mg PO 0800,1300,1800 #90 tabs 04/04/24 metoprolol succinate 25 mg 25 mg PO DAILY #30 tabs 04/04/24 tablet,extended release 24 hr sodium chloride 0.9 % (flush) 5 ml IVFLUSH TID #1 mL 04/04/24 (Normal Saline Flush 0.9 % injection syringe) Allergies Allergy/AdvReac Type Severity Reaction Status Date / Time No Known Allergies Allergy Verified 04/19/24 16:48 [No Known Allergies*] Review of Systems 2 Review of Systems: Patient endorses shortness of breath and would retention Yes all other systems are reviewed and are negative [facility] Past Medical History Attestation statement: The following information was validated with the patient. [facility] Narrative: CHF, diabetes, PAD, CAD, COPD Source: old records reviewed Medical History Acute on chronic HFrEF (heart failure with reduced ejection fraction) History of osteomyelitis 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 Diverticulosis Tubular adenoma of colon (~2018) History of COVID-19 Nicotine dependence, cigarettes, uncomplicated Hypertensive retinopathy Microhematuria ICD (implantable cardioverter-defibrillator) in place COPD (chronic obstructive pulmonary disease) KIMANI (obstructive sleep apnea) Sleep apnea CAD (coronary artery disease) Paroxysmal atrial fibrillation (~2017) Surgical History History of amputation of left great toe History of cardiac cath History of ankle surgery History of implantable cardiac defibrillator (ICD) History of colonoscopy History of heart artery stent History of cardiac radiofrequency ablation History of cardioversion History of esophagogastroduodenoscopy History of umbilical hernia History of inguinal hernia Family History Family History Father Atherosclerosis Mother Cerebral aneurysm Maternal Grandmother Unknown family medical history Mother Cerebral hemorrhage Father Coronary artery disease Social History Social History Household Members: None Housing: House Are you a primary home care provider to a significant other at home: No Do you presently have visiting nurse or other home services: Yes Alcohol intake: former Comment: sitter at bedside Patient Tobacco Use Status: Current everyday Tobacco user Tobacco use type: Cigarette Cigarette Packs Per Day: 1 Years Smoked: (current smoker - onset 14yo, 1ppd x 43yrs, 40pyh) Smoked in Last 30 Days: Yes e-Cigarette/Vaping Use: Never Used Second Hand Smoke Exposure: Yes Use of substances other than those prescribed or required for medical reasons: No Advance Directives: Yes Advance Directives on File: Yes Advance Directives Date on File: 07/09/21 Do you have a plan to hurt others: No Plan service: No Current occupational status: unemployed and disabled Current occupation: rt handed Cognitive needs: No Hearing needs: No Vision needs: Yes Physical Exam ED Vital Signs: Vital Signs - 24 hr 04/19/24 16:43 04/19/24 16:49 04/19/24 16:49 Temperature 98.7 F Pulse Rate 90 90 Respiratory Rate 26 H 26 H 26 H Blood Pressure 106/55 L 106/55 L Pulse Oximetry 96 96 Oxygen Delivery Method Room Air Room Air 04/19/24 17:53 04/19/24 19:11 04/19/24 20:19 Temperature 98.6 F Pulse Rate 90 87 84 Respiratory Rate 26 H 16 16 Blood Pressure 108/62 97/48 L Pulse Oximetry 95 96 Oxygen Delivery Method Room Air Room Air 04/19/24 20:22 Temperature Pulse Rate Respiratory Rate Blood Pressure Pulse Oximetry 90 L Oxygen Delivery Method BMI result Body Mass Index 31.2 Well-appearing 58-year-old male A&O x4 Mild wheezing auscultated bilaterally with good aeration Normal S1-S2 regular rate and rhythm Abdomen is soft, mildly distended however nontender to palpation Sacral edema appreciated Bilateral lower extremity edema appreciated; left greater than right Erythema and scaling to left 2nd toe Medications Administered Discontinued Medications Generic Name Dose Route Start Last Admin Trade Name Freq PRN Reason Stop Dose Admin Acetaminophen 975 mg 04/19/24 19:53 04/19/24 20:15 Acetaminophen 325 Mg Tablet PO 04/19/24 19:54 975 mg ONCE ONE Administration Albuterol/Ipratropium 3 ml 04/19/24 17:56 04/19/24 17:57 Albuterol/Iprat 2.5/0.5mg 3 Ml Ampul.Neb INHALE 04/19/24 17:57 3 ml ONCE ONE Administration Furosemide 80 mg 04/19/24 19:52 04/19/24 20:22 Furosemide 100 Mg/10 Ml Vial IVPUSH 04/19/24 19:53 Not Given ONCE ONE Protocol Ketorolac Tromethamine 15 mg 04/19/24 18:44 04/19/24 19:20 Ketorolac Tromethamine 15 Mg/Ml Vial IVPUSH 04/19/24 18:45 15 mg ONCE ONE Administration Prednisone 60 mg 04/19/24 17:44 04/19/24 18:08 Prednisone 20 Mg Tablet PO 04/19/24 17:45 60 mg ONCE ONE Administration Medical Decision Making Medical Decision Making [facility] Narrative: 58-year-old male with multiple comorbidities presenting for shortness of breath and fluid retention. I am concerned for the following; CHF exacerbation, COPD exacerbation, DVT, COVID, flu -no concern for ACS, PE given reassuring physical examination PI -labs and imaging studies ordered -duo nebs and steroids ordered -labs notable for electrolytes within normal limits, normal creatinine, elevated BNP, normal white count, stable H and H -patient's x-ray negative for osteomyelitis; ultrasound negative for DVT; chest x-ray showing trace right-sided pleural effusion -pt became short of breath and hypoxic on ambulatory sat -I had ordered lasix for pt however not given due to hypotensive -hospitalist consulted for admission and accepted the patient with recommendation to give diuretics -20 of Lasix given Differential Diagnosis Differential Diagnoses: The differential diagnosis associated with the presentation includes CHF exacerbation, COPD exacerbation, COVID, flu, pneumonia Lab Data 04/19/24 18:14 04/19/24 18:14 Labs: Lab Results 04/19/24 04/19/24 04/19/24 Range/Units 18:14 18:23 20:05 WBC 8.4 (4.8-10.8) X10*3/uL RBC 4.12 L (4.60-5.80) X10*6/uL Hgb 9.0 L (14.0-18.0) g/dl Hct 31.2 L (42.0-52.0) % MCV 75.7 L (80.0-98.0) fL MCH 21.8 L (27.0-33.0) pg MCHC 28.8 L (31.0-36.0) g/dl RDW 20.9 H (11.0-16.0) % Plt Count 397 D (160-400) X10*3/uL MPV 9.8 (9.4-12.4) fL Immature Gran % (Auto) 0.2 (0.0-0.4) % Neut % (Auto) 47.2 (45-73) % Lymph % (Auto) 22.7 (20-40) % Page % (Auto) 10.5 (2-11) % Eos % (Auto) 18.0 H (0-4) % Baso % (Auto) 1.4 (0-2) % Lymph # (Auto) 1.9 (1.2-4.9) X10*3/uL Page # (Auto) 0.9 (0.1-1.2) X10*3/uL Eos # (Auto) 1.5 H (0.0-0.4) X10*3/uL Baso # (Auto) 0.1 (0.0-0.2) X10*3/uL Abs Immat Gran (auto) 0.02 (0.00-0.03) X10*3/uL Absolute Neuts (auto) 3.9 (2.0-8.3) x10*3/uL Absolute Nucleated RBC 0.000 (0.0-0.012) X10*3/uL Nucleated RBC % (auto) 0.0 (0.0-0.2) /100WBC VBG pH 7.40 (7.32-7.43) VBG pCO2 62 mmHg VBG pO2 37 mmHg VBG HCO3 39 H (22-26) mmol/L VBG O2 Saturation 50.0 % VBG Base Excess 12.3 mmol/L Sodium 145 (135-145) mmol/L Potassium 4.0 (3.3-5.1) mmol/L Chloride 103 (96-108) mmol/L Carbon Dioxide 33 H (22-29) mmol/L Anion Gap 13 (12-20) BUN 18 H (9-16) mg/dL Creatinine 1.10 (0.5-1.4) mg/dL Estim Creat Clear Calc 86.6 Estimated GFR > 60 Random Glucose 236 H (60-115) mg/dL Lactic Acid 1.3 (0.5-2.0) mmol/L Calcium 8.6 (8.4-10.2) mg/dL Total Bilirubin 0.5 (0.0-1.0) mg/dL AST 30 (5-37) U/L ALT 15 (0-40) U/L Alkaline Phosphatase 119 H (39-117) U/L Troponin I High Sens 23.6 (<3.5-35.0) ng/L B-Natriuretic Peptide 3298 H (<100) pg/mL Total Protein 6.0 L (6.5-8.0) g/dL Albumin 2.8 L (3.5-5.0) g/dL Discharge Plan Discharge Clinical Impression: CHF exacerbation Patient Disposition: Admitted As Inpatient Print Language: Bengali
[2024-04-19] MEDS: Albuterol/Iprat 2.5/0.5MG 3 ML AMPUL.NEB INHALE (17:57)
[2024-04-19] MEDS: predniSONE 20 MG TABLET 60 MG PO (18:08)
[2024-04-19 18:24] LABS: MANUAL DIFF FLAG NO
[2024-04-19 18:27] LABS: Basophils Absolute Auto 0.1 X10*3/uL (0.0-0.2); Basophils Percent Auto 1.4 % (0-2); Eosinophils Absolute Auto 1.5 X10*3/uL (0.0-0.4); Hematocrit 31.2 % (42.0-52.0); Imm Gran Abs Auto 0.02 X10*3/uL (0.00-0.03); Imm Gran Pct Auto 0.2 % (0.0-0.4); Lymphocytes Absolute Auto 1.9 X10*3/uL (1.2-4.9); Lymphocytes Percent Auto 22.7 % (20-40); Mean Corpuscular HGB Conc 28.8 g/dl (31.0-36.0); Mean Corpuscular Hemoglobin 21.8 pg (27.0-33.0); Mean Corpuscular Volume 75.7 fL (80.0-98.0); Mean Platelet Volume 9.8 fL (9.4-12.4); Monocytes Absolute Auto 0.9 X10*3/uL (0.1-1.2); Monocytes Percent Auto 10.5 % (2-11); Neutrophils Absolute Auto 3.9 x10*3/uL (2.0-8.3); Neutrophils Percent Auto 47.2 % (45-73); Platelet Count 397 X10*3/uL (160-400); Red Blood Count 4.12 X10*6/uL (4.60-5.80); Red Cell Distribution Width 20.9 % (11.0-16.0); White Blood Count 8.4 X10*3/uL (4.8-10.8)
[2024-04-19 18:28] LABS: VBG Base Excess 12.3 mmol/L; VBG HCO3 39 mmol/L (22-26); VBG pCO2 62 mmHg; VBG pO2 37 mmHg
[2024-04-19 18:29] LABS: Venous Blood Gas Refer to POC result
[2024-04-19 18:36] LABS: Lactic Acid 1.3 mmol/L (0.5-2.0)
[2024-04-19 18:41] LABS: Alanine Aminotransferase 15 U/L (0-40); Albumin Level 2.8 g/dL (3.5-5.0); Alkaline Phosphatase 119 U/L (39-117); Anion Gap 13 (12-20); Aspartate Amino Transferase 30 U/L (5-37); Bilirubin Total 0.5 mg/dL (0.0-1.0); Blood Urea Nitrogen 18 mg/dL (9-16); Calcium 8.6 mg/dL (8.4-10.2); Carbon Dioxide 33 mmol/L (22-29); Chloride 103 mmol/L (96-108); Creatinine Clr Calc Pharmacy 86.6; Estimated Glomerular Filt Rate > 60; Glucose Random 236 mg/dL (60-115); Sodium 145 mmol/L (135-145)
[2024-04-19 18:46] LABS: B Type Natriuretic Peptide 3298 pg/mL (<100)
[2024-04-19] MEDS: Ketorolac Tromethamine 15 MG/ML VIAL IVPUSH (19:20)
[2024-04-19] MEDS: Acetaminophen 325 MG TABLET 975 MG PO (20:15)
--- NOTE | 2024-04-19 20:22 | PC.NURSE ---
marcia held d/t pt blood pressure. aware.
[2024-04-19 20:29] LABS: Troponin-I High Sensitivity 23.6 ng/L (<3.5-35.0)
--- NOTE | 2024-04-19 20:51 | PC.NURSE ---
ambulatory o2 checked on pt dropped to 89/90% on RA, pt states felt sob. upon resting pt continues to feel sob, sats 95% on RA. R. lung cta. L. lung wheezing/diminished. aware.
[2024-04-19] MEDS: Furosemide 20 MG/2 ML VIAL IVPUSH (21:08)
--- NOTE | 2024-04-19 22:11 | P.HPHOSP_ITS ---
History of Present Illness Date of Service: 04/19/24 Chief Complaint: Dyspnea This is a 58-year-old male with pertinent history of congestive heart failure with reduced ejection fraction, diabetic foot infection on IV antibiotics, COPD not on home oxygen, paroxysmal atrial fibrillation on Eliquis, CAD status post PCI, KIMANI on CPAP, insulin-dependent diabetes mellitus, mood disorder, peripheral arterial disease who presents to the emergency department for evaluation of dyspnea. Patient states symptoms started 2 days prior to presentation. He has been having shortness of breath which is worse with exertion. Also shortness of breath is worse when he lays flat. Also noticed bilateral lower extremity leg swelling. Patient states he feels like he has also gained weight. No chest pain, palpitations, fever, chills, nausea, vomiting, abdominal pain, changes in urinary or bowel habits. In the emergency department, BNP found to be elevated and imaging concerning for pulmonary vascular congestion and pleural effusion. Review of Systems 2 Constitutional: Constitutional: Reports fatigue Cardiovascular: Cardiovascular: Reports pedal edema, Reports edema, Reports dyspnea on exertion and Reports orthopnea Respiratory: Respiratory: Reports dyspnea on exertion Gastrointestinal: Gastrointestinal: Reports no additional gastrointestinal complaints Genitourinary: Genitourinary: Reports no additional male genitourinary complaints Endocrine: Endocrine: Reports fatigue [facility] Medical History Acute on chronic HFrEF (heart failure with reduced ejection fraction) History of osteomyelitis 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 Diverticulosis Tubular adenoma of colon (~2018) History of COVID-19 Nicotine dependence, cigarettes, uncomplicated Hypertensive retinopathy Microhematuria ICD (implantable cardioverter-defibrillator) in place COPD (chronic obstructive pulmonary disease) KIMANI (obstructive sleep apnea) Sleep apnea CAD (coronary artery disease) Paroxysmal atrial fibrillation (~2017) Family History Father Atherosclerosis Mother Cerebral aneurysm Maternal Grandmother Unknown family medical history Mother Cerebral hemorrhage Father Coronary artery disease Surgical History History of amputation of left great toe History of cardiac cath History of ankle surgery History of implantable cardiac defibrillator (ICD) History of colonoscopy History of heart artery stent History of cardiac radiofrequency ablation History of cardioversion History of esophagogastroduodenoscopy History of umbilical hernia History of inguinal hernia Social History Household Members: None Housing: House Are you a primary manager urgent care to a significant other at home: No Do you presently have visiting nurse or other home services: Yes Alcohol intake: former Comment: sitter at bedside Patient Tobacco Use Status: Current everyday Tobacco user Tobacco use type: Cigarette Cigarette Packs Per Day: 1 Years Smoked: (current smoker - onset 14yo, 1ppd x 43yrs, 40pyh) Smoked in Last 30 Days: Yes e-Cigarette/Vaping Use: Never Used Second Hand Smoke Exposure: Yes Use of substances other than those prescribed or required for medical reasons: No Advance Directives: Yes Advance Directives on File: Yes Advance Directives Date on File: 07/09/21 Do you have a plan to hurt others: No Plan service: No Current occupational status: unemployed and disabled Current occupation: rt handed Cognitive needs: No Hearing needs: No Vision needs: Yes Meds Allergies Allergy/AdvReac Type Severity Reaction Status Date / Time No Known Allergies Allergy Verified 04/19/24 16:48 [No Known Allergies*] Active Medications: Current Medications Acetaminophen (Acetaminophen 325 Mg Tablet) 650 mg PO Q6H PRN PRN Reason: Pain, Mild (Pain Scale 1-3), fever or headache Calcium Carbonate (Calcium Carbonate 750 Mg Tab.Chew) 750 mg PO Q4H PRN PRN Reason: Heartburn Glucose (Glucose Gel 15 Gm Gel..Gram.) 15 gm PO Q15M PRN; Protocol PRN Reason: per Hypoglycemia Standing Ord. Insulin Human Lispro (Insulin Lispro 100 Unit/Ml 3 Ml Vial) 0 unit SUBCUT [facility]; Protocol Magnesium Hydroxide (Milk Of Magnesia 30 Ml Oral.Susp) 30 ml PO DAILY PRN PRN Reason: Constipation Melatonin (Melatonin 3 Mg Tablet) 6 mg PO BEDTIME PRN PRN Reason: Insomnia Ondansetron HCl (Ondansetron Hcl 4 Mg/2 Ml Vial) 4 mg IVPUSH Q8H PRN PRN Reason: Nausea and Vomiting Sodium Chloride (0.9 % Sodium Chloride Flush 3 Ml Syringe) 3 ml [facility] Medications ?Medication ?Instructions ?Recorded ?Confirmed ?Last Taken ?Type acetaminophen 325 mg tablet 650 mg PO Q6H PRN Pain, Moderate 11/18/23 04/05/24 Unknown History colchicine 0.6 mg tablet 0.6 mg PO DAILY 11/18/23 04/05/24 11/16/23 History insulin glargine 100 unit/mL (3 17 unit subcut BEDTIME 11/18/23 04/05/24 03/22/24 History mL) subcutaneous pen (Lantus Solostar U-100 Insulin) insulin lispro 100 unit/mL 7 unit subcut TIDAC 11/18/23 04/05/24 03/22/24 History subcutaneous solution torsemide 20 mg tablet 20 mg PO Q48H 12/20/23 04/05/24 Unknown History albuterol sulfate 2.5 mg/3 mL 2.5 mg inhalation Q6H PRN 03/23/24 04/05/24 Unknown History (0.083 %) solution for nebulization Shortness Of Breath Or Wheezing apixaban 5 mg tablet (Eliquis) 5 mg PO BID 03/23/24 04/05/24 Unknown History empagliflozin 10 mg tablet 10 mg PO DAILY 03/23/24 04/05/24 03/22/24 History (Jardiance) fluticasone propionate 45 2 puff inhalation BID 03/23/24 04/05/24 Unknown History mcg-salmeterol 21 mcg/actuation HFA inhaler (Advair HFA) sennosides 8.6 mg tablet (senna) 17.2 mg PO BEDTIME 03/23/24 04/05/24 Unknown History Physical Exam 2 Vital Signs and Narrative: Vital Signs: Last Vital Signs Temp 98.6 F 04/19/24 19:11 Pulse 84 04/19/24 20:19 Resp 16 04/19/24 20:19 BP 103/64 04/19/24 21:08 Pulse Ox 90 L 04/19/24 20:22 O2 Del Method Room Air 04/19/24 20:19 BMI result Body Mass Index 31.2 Middle-aged male lying in bed in no distress Neck supple, no JVD Regular rate and rhythm, S1-S2 heard Bilateral crackles present Abdomen soft nontender, no guarding, no rigidity Patient is awake, alert and oriented to self, place, time and person ; no focal motor deficit Psych: Normal mood Bilateral pedal edema ; left great toe amputation Results Labs 04/19/24 18:14 04/19/24 18:14 Labs: Laboratory Results - last 24 hr 04/19/24 04/19/24 04/19/24 18:14 18:23 20:05 MCV 75.7 L MCH 21.8 L MCHC 28.8 L RDW 20.9 H Plt Count 397 D MPV 9.8 Immature Gran % (Auto) 0.2 Neut % (Auto) 47.2 Lymph % (Auto) 22.7 Hend[place] % (Auto) 10.5 Eos % (Auto) 18.0 H Baso % (Auto) 1.4 Lymph # (Auto) 1.9 [place] # (Auto) 0.9 Eos # (Auto) 1.5 H Baso # (Auto) 0.1 Abs Immat Gran (auto) 0.02 Absolute Neuts (auto) 3.9 Absolute Nucleated RBC 0.000 Nucleated RBC % (auto) 0.0 VBG pH 7.40 VBG pCO2 62 VBG pO2 37 VBG HCO3 39 H VBG O2 Saturation 50.0 VBG Base Excess 12.3 Anion Gap 13 Estim Creat Clear Calc 86.6 Estimated GFR > 60 Random Glucose 236 H Lactic Acid 1.3 Calcium 8.6 Total Bilirubin 0.5 AST 30 ALT 15 Alkaline Phosphatase 119 H Troponin I High Sens 23.6 B-Natriuretic Peptide 3298 H Total Protein 6.0 L Albumin 2.8 L Imaging Radiologist's Impressions: Impressions Chest X-Ray 04/19/24 17:40 IMPRESSION: Bronchial wall thickening may be infectious and/or inflammatory in etiology. Trace right pleural effusion. Electronically signed by: Kanika Alfonso MD 04/19/2024 07:45 PM EDT RP Foot X-Ray 04/19/24 17:40 IMPRESSION: Ossific fragment adjacent to the proximal phalanx of the second digit of unclear etiology. Recommend correlation with point tenderness. Electronically signed by: Kanika Alfonso MD 04/19/2024 07:45 PM EDT RP Venous Duplex 04/19/24 18:22 IMPRESSION: No evidence of deep venous thrombosis involving the left lower extremity. Electronically signed by: Kanika Alfonso MD 04/19/2024 07:46 PM EDT RP Assessment and Plan (1) CHF exacerbation: Status: Acute Plan This is a 58-year-old male with pertinent history of congestive heart failure with reduced ejection fraction, diabetic foot infection on IV antibiotics, COPD not on home oxygen, paroxysmal atrial fibrillation on Eliquis, CAD status post PCI, KIMANI on CPAP, insulin-dependent diabetes mellitus, mood disorder, peripheral arterial disease who presents to the emergency department for evaluation of dyspnea. #. Acute on chronic congestive heart failure with reduced ejection fraction: Will admit patient with IV diuresis. Strict I's and O's. Low-salt diet. On Jardiance, beta-lion #. Insulin-dependent diabetes mellitus with hyperglycemia: Initiating basal plus insulin regimen #. Diabetic foot infection: On IV ertapenem and daptomycin until 05/14/2024 #. Peripheral arterial disease: Previous arterial Dopplers showing delayed arterial upstroke. Outpatient follow-up with Dr. Leal #. COPD: No exacerbation during admission. Continue home inhalers #. KIMANI: CPAP at bedtime #. CAD: On aspirin. Not on statin #. Paroxysmal atrial fibrillation: On amiodarone, beta-lion and Eliquis #. Mood disorder: Continue home mood stabilizers Med rec pending DVT prophylaxis: Eliquis Full code Admit as inpatient and will require two night minimum hospital stay for IV diuresis, close monitoring of volume status (as above), which is not possible in a lesser acute setting. Quality Stroke Does the patient have a stroke diagnosis?: No VTE Prior VTE?: No VTE Risk Level:: Medical - moderate - high VTE Device Contraindication: Treatment Not Indicated VTE Drug Contraindication: N/A - Med Ordered
[2024-04-19 22:32] LABS: Glucose, Whole Blood 243 mg/dL (60-115)
[2024-04-19] MEDS: Meropenem 1 GM VIAL IV (22:51)
[2024-04-19] MEDS: Insulin Lispro 100 UNIT/ML 3 ML VIAL SUBCUT (22:52)
[2024-04-19] MEDS: Insulin Glargine,Hum.rec.anlog 100 UNIT/ML 10 ML VIAL 13 UNIT SUBCUT (22:52)
[2024-04-19] MEDS: DAPTOmycin 600 MG in 0.9 % Sodium Chloride 50 ML 100 MG IV (23:05)
--- NOTE | 2024-04-19 23:31 | PC.NURSE ---
MD aware of pt pain level. RT notified for cpap per pt request and pt tolerating well at this time. call sal within reach.
[2024-04-20] VITALS (13 sets, daily range): BP systolic 101–139; BP diastolic 56–81; PULSE 68–89; RESP 15–20; TEMP 36.1–36.6; O2SAT 95–98
[2024-04-20] MEDS: traMADoL HCL 50 MG TABLET 25 MG PO ×3 (00:15→11:46)
[2024-04-20] MEDS: 0.9 % Sodium Chloride Flush 3 ML SYRINGE IVFLUSH ×2 (00:23→23:33)
[2024-04-20] MEDS: Meropenem 1 GM VIAL IV ×3 (06:22→23:22)
[2024-04-20 06:58] LABS: Glucose, Whole Blood 244 mg/dL (60-115)
[2024-04-20] MEDS: Albuterol/Iprat 2.5/0.5MG 3 ML AMPUL.NEB INHALE ×3 (07:35→15:43)
[2024-04-20] MEDS: Furosemide 40 MG/4 ML VIAL IVPUSH ×2 (07:45→17:17)
[2024-04-20] MEDS: Acetaminophen 325 MG TABLET 650 MG PO (07:45)
[2024-04-20] MEDS: Insulin Lispro 100 UNIT/ML 3 ML VIAL SUBCUT ×4 (07:45→21:05)
[2024-04-20 08:21] LABS: MANUAL DIFF FLAG NO
[2024-04-20 08:25] LABS: Basophils Percent Auto 0.2 % (0-2); Eosinophils Percent Auto 0.2 % (0-4); Hematocrit 31.1 % (42.0-52.0); Imm Gran Abs Auto 0.02 X10*3/uL (0.00-0.03); Imm Gran Pct Auto 0.4 % (0.0-0.4); Lymphocytes Absolute Auto 0.8 X10*3/uL (1.2-4.9); Lymphocytes Percent Auto 15.1 % (20-40); Mean Corpuscular HGB Conc 28.9 g/dl (31.0-36.0); Mean Corpuscular Hemoglobin 21.7 pg (27.0-33.0); Mean Corpuscular Volume 75.1 fL (80.0-98.0); Mean Platelet Volume 9.8 fL (9.4-12.4); Monocytes Absolute Auto 0.3 X10*3/uL (0.1-1.2); Monocytes Percent Auto 5.2 % (2-11); Neutrophils Absolute Auto 4.3 x10*3/uL (2.0-8.3); Neutrophils Percent Auto 78.9 % (45-73); Platelet Count 388 X10*3/uL (160-400); Red Blood Count 4.14 X10*6/uL (4.60-5.80); Red Cell Distribution Width 20.6 % (11.0-16.0); White Blood Count 5.4 X10*3/uL (4.8-10.8)
[2024-04-20 08:39] LABS: Anion Gap 12 (12-20); Blood Urea Nitrogen 21 mg/dL (9-16); Calcium 8.5 mg/dL (8.4-10.2); Carbon Dioxide 31 mmol/L (22-29); Chloride 103 mmol/L (96-108); Creatinine Clr Calc Pharmacy 82.9; Estimated Glomerular Filt Rate > 60; Glucose Random 257 mg/dL (60-115); Potassium 4.3 mmol/L (3.3-5.1); Sodium 142 mmol/L (135-145)
--- NOTE | 2024-04-20 08:47 | MHC.CM.PN ---
CM met with Patient at bedside and addressed IMM with him, providing Patient with the original and a copy has been placed on the chart. Patient lives alone in a house and he uses a cane to assist with mobility and home CPAP. Patient is active with [facility], [facility] 23 hours/week, [facility] and [facility] for home IV ABT. Home/resume said services is the goal and CM has initiated and will follow for dc planning. PCP is Dr. Phi Crisostomo and Daughter/HCP/Chitra will transport to home.
--- NOTE | 2024-04-20 09:51 | HO.WOUND ---
Wound Consult: Initial 58yr old Male admitted to [facility] on 04/19/24 - See progress notes and H&P for detailed history.? Wound consult placed for Left foot wound.? Patient agreeable to assessment and photo documentation.? Patient follows with outpt wound clinic last appointment 03/08/24 - recommend continued follow up at time of D/C. Patient reports he was seen by his certified medical records coder this week and the certified medical records coder recommended he go to [facility] for evaluation. He attempted admission by reports the wait was too long so he came to [facility] ED. Left Plantar wound, anterior portion of toe and 2nd toe webspace Left 2nd Toe Left 2nd toe webspace Left Plantar Etiology: ??Diabetic Wounds Measurements: Left Anterior wound : 3cm x 1.2cm x 0.3cm dry pink clean wound bed Left 2nd web space: 1cm x 0.8cm x 0.6cm moist fibrinous slough Left Planet: 2cm x 1.3cm x 0.5cm with undermining circumferential - adherent fibrinous slough Drainage / Odor: cuba yellow drainage noted on sock when removed - mild odor noted -no dressing was in place Edges: ? callused and nonadherent Catalina wound: ?Callused mild erythema noted swelling noted Pain: denies reports neuropathy Goals of Treatment: ? Durafiber AG defer to surgery and vascular team Recommendations: 1. When applicable maintain blood glucose levels per Providers order. 2. Left foot sites - Off Load Pressure - Cleanse and irrigate with NS, Pat dry.? Apply barrier to periwound, lightly pack with Durafiber AG, be sure to leave a wick to easy removal.? Cover with dry gauze, gauze wrap.? Change every other day. Recommend continued follow up out patient Wound Clinic at [address] [place] [id number] and to call for an appointment at time of discharge. [phone].? Re-consult wound care Nurse for wound deterioration or wound changes.
--- NOTE | 2024-04-20 10:16 | HO.WOUND ---
Wound Consult: Initial 58yr old Male admitted to [facility] on 04/19/24 - See progress notes and H&P for detailed history.? Wound consult placed for Left foot wound.? Patient agreeable to assessment and photo documentation.? Patient follows with outpt wound clinic last appointment 03/08/24 - recommend continued follow up at time of D/C. Patient reports he was seen by his clinical operations manager this week and the clinical operations manager recommended he go to [facility] room for evaluation. He attempted admission by reports the wait was too long so he came to [facility] ED. Left Plantar wound, anterior portion of toe and 2nd toe webspace Left 2nd Toe Left 2nd toe webspace Left Plantar Etiology: ??Diabetic Wounds Measurements: Left Anterior wound : 3cm x 1.2cm x 0.3cm dry pink clean wound bed Left 2nd web space: 1cm x 0.8cm x 0.6cm moist fibrinous slough Left Planet: 2cm x 1.3cm x 0.5cm with undermining circumferential - adherent fibrinous slough Drainage / Odor: cuba yellow drainage noted on sock when removed - mild odor noted -no dressing was in place Edges: ? callused and nonadherent [place] wound: ?Callused mild erythema noted swelling noted Pain: denies reports neuropathy Goals of Treatment: ? Durafiber AG defer to surgery and vascular team +left foot pulse via doppler weak but remain audible. Cool to touch. There is concern for depth of wound TT to Dr. Bill. Recommendations: 1. When applicable maintain blood glucose levels per Providers order. 2. Left foot sites - Off Load Pressure - Cleanse and irrigate with NS, Pat dry.? Apply barrier to periwound, lightly pack with Durafiber AG, be sure to leave a wick to easy removal.? Cover with dry gauze, gauze wrap.? Change every other day. Recommend continued follow up out patient Wound Clinic at [address] [place] [address], [place] [address] and to call for an appointment at time of discharge. [phone].? Re-consult wound care Nurse for wound deterioration or wound changes.
[2024-04-20 10:55] LABS: Glucose, Whole Blood 196 mg/dL (60-115)
--- NOTE | 2024-04-20 11:54 | HO.PM.IMPN ---
Subjective Subjective Date of Service: 04/20/24 Interval History: seen and evaluated this morning feels better overnight has significant Anasarca Foot wounds looks worse than before no other events Review of Systems Review of Systems: Yes all other systems are reviewed and are negative Physical Exam Vital Signs: Vital Signs: Last Vital Signs Temp 96.9 F 04/20/24 11:01 Pulse 82 04/20/24 11:12 Resp 15 04/20/24 11:12 BP 101/56 L 04/20/24 11:01 Pulse Ox 97 04/20/24 11:01 O2 Del Method CPAP 04/20/24 11:01 BMI result Body Mass Index 31.2 Const: Other: Constitutional : Awake, interactive, not in distress Neck : Normal inspection, Supple Cardiovascular : RRR, no JVP, +3 lower extremity edema bilaterally Respiratory : good bilateral air entry ut decreased at bases, fine basal crackles, no wheezes or rhonchi Gastrointestinal: soft, lax, Normal bowel sounds, Non tender Skin : Warm, Dry Neurological : Alert & oriented x3, No focal deficit Objective Data Active Medications Acetaminophen (Acetaminophen 325 Mg Tablet) 650 mg PO Q6H PRN PRN Reason: Pain, Mild (Pain Scale 1-3), fever or headache Last Admin: 04/20/24 07:45 Dose: 650 mg Documented By: YUNIOR Albuterol/Ipratropium (Albuterol/Iprat 2.5/0.5mg 3 Ml Ampul.Neb) 3 ml INHALE RQ4H WHILE AWAKE [facility] Last Admin: 04/20/24 11:10 Dose: 3 ml Documented By: SARAH Albuterol/Ipratropium (Albuterol/Iprat 2.5/0.5mg 3 Ml Ampul.Neb) 3 ml INHALE Q4H PRN PRN Reason: Wheezing Calcium Carbonate (Calcium Carbonate 750 Mg Tab.Chew) 750 mg PO Q4H PRN PRN Reason: Heartburn Furosemide (Furosemide 40 Mg/4 Ml Vial) 40 mg IVPUSH BID@0900,1800 [facility]; Protocol Glucose (Glucose Gel 15 Gm Gel..Gram.) 15 gm PO Q15M PRN; Protocol PRN Reason: per Hypoglycemia Standing Ord. Dextrose (D10) 250 mls @ 750 mls/hr IV Q15M PRN; Protocol PRN Reason: per Hypoglycemia Standing Ord. Daptomycin 600 mg/ Sodium (Chloride) 62 mls @ 100 mls/hr IV Q24H [facility] Last Infusion: 04/19/24 23:45 Dose: Infused Documented By: AASHISH Insulin Glargine (Insulin Glargine,Hum.Rec.Anlog 100 Unit/Ml 10 Ml Vial) 13 unit SUBCUT BEDTIME [facility] Last Admin: 04/19/24 22:52 Dose: 13 unit Documented By: AASHISH Insulin Human Lispro (Insulin Lispro 100 Unit/Ml 3 Ml Vial) 0 unit SUBCUT QIDACHS [facility]; Protocol Last Admin: 04/20/24 11:46 Dose: 2 unit Documented By: YUNIOR Magnesium Hydroxide (Milk Of Magnesia 30 Ml Oral.Susp) 30 ml PO DAILY PRN PRN Reason: Constipation Melatonin (Melatonin 3 Mg Tablet) 6 mg PO BEDTIME PRN PRN Reason: Insomnia Meropenem (Meropenem 1 Gm Vial) 1 gm IV Q8H [facility] Last Admin: 04/20/24 06:22 Dose: 1 gm Documented By: ANTJUAN Ondansetron HCl (Ondansetron Hcl 4 Mg/2 Ml Vial) 4 mg IVPUSH Q8H PRN PRN Reason: Nausea and Vomiting Sodium Chloride (0.9 % Sodium Chloride Flush 3 Ml Syringe) 3 ml IVFLUSH QSHIFT [facility] Last Admin: 04/20/24 08:52 Dose: Not Given Documented By: YUNIOR Non-Admin Reason: IV Running Tramadol HCl (Tramadol Hcl 50 Mg Tablet) 25 mg PO Q4H PRN PRN Reason: Pain, Severe (Pain Scale 7-10) Last Admin: 04/20/24 11:46 Dose: 25 mg Documented By: YUNIOR Labs 04/20/24 07:41 04/20/24 07:41 Labs: Laboratory Results - last 24 hr 04/19/24 04/19/24 04/19/24 18:14 18:23 20:05 MCV 75.7 L MCH 21.8 L MCHC 28.8 L RDW 20.9 H Plt Count 397 D MPV 9.8 Immature Gran % (Auto) 0.2 Neut % (Auto) 47.2 Lymph % (Auto) 22.7 Lake % (Auto) 10.5 Eos % (Auto) 18.0 H Baso % (Auto) 1.4 Lymph # (Auto) 1.9 Lake # (Auto) 0.9 Eos # (Auto) 1.5 H Baso # (Auto) 0.1 Abs Immat Gran (auto) 0.02 Absolute Neuts (auto) 3.9 Absolute Nucleated RBC 0.000 Nucleated RBC % (auto) 0.0 VBG pH 7.40 VBG pCO2 62 VBG pO2 37 VBG HCO3 39 H VBG O2 Saturation 50.0 VBG Base Excess 12.3 Anion Gap 13 Estim Creat Clear Calc 86.6 Estimated GFR > 60 POC Glucose Random Glucose 236 H Lactic Acid 1.3 Calcium 8.6 Total Bilirubin 0.5 AST 30 ALT 15 Alkaline Phosphatase 119 H Troponin I High Sens 23.6 B-Natriuretic Peptide 3298 H Total Protein 6.0 L Albumin 2.8 L 04/19/24 04/20/24 04/20/24 22:26 06:54 07:41 MCV 75.1 L MCH 21.7 L MCHC 28.9 L RDW 20.6 H Plt Count 388 MPV 9.8 Immature Gran % (Auto) 0.4 Neut % (Auto) 78.9 H Lymph % (Auto) 15.1 L Lake % (Auto) 5.2 Eos % (Auto) 0.2 Baso % (Auto) 0.2 Lymph # (Auto) 0.8 L Lake # (Auto) 0.3 Eos # (Auto) 0.0 Baso # (Auto) 0.0 Abs Immat Gran (auto) 0.02 Absolute Neuts (auto) 4.3 Absolute Nucleated RBC 0.000 Nucleated RBC % (auto) 0.0 VBG pH VBG pCO2 VBG pO2 VBG HCO3 VBG O2 Saturation VBG Base Excess Anion Gap 12 Estim Creat Clear Calc 82.9 Estimated GFR > 60 POC Glucose 243 H 244 H Random Glucose 257 H Lactic Acid Calcium 8.5 Total Bilirubin AST ALT Alkaline Phosphatase Troponin I High Sens B-Natriuretic Peptide Total Protein Albumin 04/20/24 10:49 MCV MCH MCHC RDW Plt Count MPV Immature Gran % (Auto) Neut % (Auto) Lymph % (Auto) Lake % (Auto) Eos % (Auto) Baso % (Auto) Lymph # (Auto) Lake # (Auto) Eos # (Auto) Baso # (Auto) Abs Immat Gran (auto) Absolute Neuts (auto) Absolute Nucleated RBC Nucleated RBC % (auto) VBG pH VBG pCO2 VBG pO2 VBG HCO3 VBG O2 Saturation VBG Base Excess Anion Gap Estim Creat Clear Calc Estimated GFR POC Glucose 196 H Random Glucose Lactic Acid Calcium Total Bilirubin AST ALT Alkaline Phosphatase Troponin I High Sens B-Natriuretic Peptide Total Protein Albumin Assessment and Plan (1) CHF exacerbation: Status: Acute (2) Diabetic infection of left foot: Status: Acute (3) Acute on chronic HFrEF (heart failure with reduced ejection fraction): Status: Acute Plan This is a 58-year-old male with pertinent history of congestive heart failure with reduced ejection fraction, diabetic foot infection on IV antibiotics, COPD not on home oxygen, paroxysmal atrial fibrillation on Eliquis, CAD status post PCI, KIMANI on CPAP, insulin-dependent diabetes mellitus, mood disorder, peripheral arterial disease who presents to the emergency department for evaluation of dyspnea. # Acute on chronic congestive heart failure with reduced ejection fraction IV diuresis Strict I's and O's. Low-salt diet DC Jardiance, continue beta-lion # Insulin-dependent diabetes mellitus with hyperglycemia basal plus insulin regimen # Diabetic foot infection Looks worse with concern of communicating wounds Wound care following On IV ertapenem and daptomycin until 05/14/2024 get Vascular eval # Peripheral arterial disease Previous arterial Dopplers showing delayed arterial upstroke. Outpatient follow-up with Dr. Leal # COPD, Continue home inhalers # KIMANI: CPAP at bedtime # CAD: On aspirin. Not on statin # Paroxysmal atrial fibrillation: On amiodarone, beta-lion and Eliquis # Mood disorder: Continue home mood stabilizers DVT prophylaxis: Eliquis Full code Admit as inpatient and will require overnight hospital stay for IV diuresis, close monitoring of volume status (as above), which is not possible in a lesser acute setting. Quality Stroke Does the patient have a stroke diagnosis?: No VTE Prior VTE?: No VTE Risk Level:: Medical - moderate - high VTE Device Contraindication: Treatment Not Indicated VTE Drug Contraindication: N/A - Med Ordered
--- NOTE | 2024-04-20 11:54 | PHA.MEDREC ---
Pharmacy Consult ? Medication Reconciliation Pharmacy has completed the medication reconciliation, spoke to patient at bedside who told me to talk to his HCP (Chitra), she confirmed all medications. Stated that the torsemide was switched from Q48H to daily because of fluid overload. Went back to talk to patient who confirmed his lantus and insulin lipsro dosing.
[2024-04-20] MEDS: Apixaban 5 MG TABLET PO ×2 (12:31→21:04)
[2024-04-20] MEDS: Amiodarone HCL 200 MG TABLET PO (12:33)
--- NOTE | 2024-04-20 12:59 | P.CONGS_ITS ---
<Statement entered by Jens Chatman MD - 04/20/24 13:56> I have seen and evaluated the patient and agree with history, findings, assessment and plan documented by Catherine Tan PA-c. History of Present Illness Consult details Consult date: 04/20/24 Narrative: We are consulted today for Jr for an acute on chronic nonhealing diabetic ulcer on his foot. He continues on IV antibiotics Ertapenem and Daptomycin until May 14. A recent left foot x-ray reveals an ossific fragment adjacent to the proximal second toe on the left foot of unclear etiology. There does show to be some severe atherosclerotic disease. The patient currently is followed by Dr. Chapman at the [facility]. He is also been seen by [place] [facility] for his diabetic foot problems. He states he is not happy with [place]. A venous duplex ultrasound was negative for DVT. He states he continues to have pain in his left foot, not any better. The wound continues to be nonhealing. Review of Systems 2 Constitutional: Constitutional: Reports as per HPI and Denies weakness ENT: Reports Normal hearing present and Denies dizziness Cardiovascular: Cardiovascular: Reports as per HPI, Denies chest pain, Denies chest pain at rest, Denies chest pain with activity, Denies dyspnea and Denies dyspnea on exertion Respiratory: Respiratory: Reports as per HPI, Denies cough, Denies dyspnea and Denies dyspnea on exertion Gastrointestinal: Gastrointestinal: Reports as per HPI, Denies abdominal pain, Denies nausea and Denies vomiting Musculoskeletal: Musculoskeletal: Denies numbness Integumentary/Breasts: Skin/Breast: Reports as per HPI, Denies erythema and Denies wounds Neurologic: Reports Normal hearing present, Denies dizziness, Denies numbness, Denies Sensory deficit (Neuro) and Denies weakness Psychiatric: Psychiatric: Reports no additional psychiatric complaints Endocrine: Endocrine: Reports no additional endocrine complaints PMFSH Past Medical History Medical History Acute on chronic HFrEF (heart failure with reduced ejection fraction) History of osteomyelitis 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 Diverticulosis Tubular adenoma of colon (~2018) History of COVID-19 Nicotine dependence, cigarettes, uncomplicated Hypertensive retinopathy Microhematuria ICD (implantable cardioverter-defibrillator) in place COPD (chronic obstructive pulmonary disease) KIMANI (obstructive sleep apnea) Sleep apnea CAD (coronary artery disease) Paroxysmal atrial fibrillation (~2017) Family History Family History Father Atherosclerosis Mother Cerebral aneurysm Maternal Grandmother Unknown family medical history Mother Cerebral hemorrhage Father Coronary artery disease Surgical History Surgical History History of amputation of left great toe History of cardiac cath History of ankle surgery History of implantable cardiac defibrillator (ICD) History of colonoscopy History of heart artery stent History of cardiac radiofrequency ablation History of cardioversion History of esophagogastroduodenoscopy History of umbilical hernia History of inguinal hernia Social History Social History Household Members: None Housing: House Are you a primary child caregiver to a significant other at home: No Do you presently have visiting nurse or other home services: Yes (Wound nurse) Alcohol intake: former Comment: sitter at bedside Patient Tobacco Use Status: Current everyday Tobacco user Tobacco use type: Cigarette Cigarette Packs Per Day: 1 Cigarettes Per Day: 2 Years Smoked: (current smoker - onset 14yo, 1ppd x 43yrs, 40pyh) e-Cigarette/Vaping Use: Never Used Second Hand Smoke Exposure: Yes Advance Directives Date on File: 07/09/21 service: No Current occupational status: unemployed and disabled Current occupation: rt handed Cognitive needs: No Hearing needs: No Vision needs: Yes Meds Allergies Allergy/AdvReac Type Severity Reaction Status Date / Time No Known Allergies Allergy Verified 04/19/24 16:48 [No Known Allergies*] Active Medications: Current Medications Acetaminophen (Acetaminophen 325 Mg Tablet) 650 mg PO Q6H PRN PRN Reason: Pain, Mild (Pain Scale 1-3), fever or headache Last Admin: 04/20/24 07:45 Dose: 650 mg Albuterol Sulfate (Albuterol Sulfate (0.083%) 2.5 Mg/3 Ml Vial.Neb) 2.5 mg INHALE Q6H PRN PRN Reason: Shortness Of Breath Or Wheezing Albuterol/Ipratropium (Albuterol/Iprat 2.5/0.5mg 3 Ml Ampul.Neb) 3 ml INHALE RQ4H WHILE AWAKE [facility] Last Admin: 04/20/24 11:10 Dose: 3 ml Albuterol/Ipratropium (Albuterol/Iprat 2.5/0.5mg 3 Ml Ampul.Neb) 3 ml INHALE Q4H PRN PRN Reason: Wheezing Amiodarone HCl (Amiodarone Hcl 200 Mg Tablet) 200 mg PO DAILY [facility] Last Admin: 04/20/24 12:33 Dose: 200 mg Apixaban (Apixaban 5 Mg Tablet) 5 mg PO BID [facility] Last Admin: 04/20/24 12:31 Dose: 5 mg Aspirin (Aspirin Enteric Coated 81 Mg Tablet.Dr) 81 mg PO DAILY [facility] Calcium Carbonate (Calcium Carbonate 750 Mg Tab.Chew) 750 mg PO Q4H PRN PRN Reason: Heartburn Colchicine (Colchicine 0.6 Mg Tablet) 0.6 mg PO DAILY [facility] Fluticasone/Vilanterol (Fluticasone/Vilanterol 100/25 Blst.W.Dev) 1 puff INHALE DAILY [facility] Furosemide (Furosemide 40 Mg/4 Ml Vial) 40 mg IVPUSH BID@0900,1800 [facility]; Protocol Gabapentin (Gabapentin 300 Mg Capsule) 300 mg PO TID [facility] Glucose (Glucose Gel 15 Gm Gel..Gram.) 15 gm PO Q15M PRN; Protocol PRN Reason: per Hypoglycemia Standing Ord. Hydralazine HCl (Hydralazine Hcl 10 Mg Tablet) 10 mg PO TID [facility]; Protocol Dextrose (D10) 250 mls @ 750 mls/hr IV Q15M PRN; Protocol PRN Reason: per Hypoglycemia Standing Ord. Daptomycin 600 mg/ Sodium (Chloride) 62 mls @ 100 mls/hr IV Q24H [facility] Last Infusion: 04/19/24 23:45 Dose: Infused Insulin Glargine (Insulin Glargine,Hum.Rec.Anlog 100 Unit/Ml 10 Ml Vial) 13 unit SUBCUT BEDTIME [facility] Last Admin: 04/19/24 22:52 Dose: 13 unit Insulin Human Lispro (Insulin Lispro 100 Unit/Ml 3 Ml Vial) 0 unit SUBCUT QIDACHS [facility]; Protocol Last Admin: 04/20/24 11:46 Dose: 2 unit Isosorbide Dinitrate (Isosorbide Dinitrate 5 Mg Tablet) 5 mg PO 0800,1300,1800 [facility]; Protocol Last Admin: 04/20/24 12:33 Dose: Not Given Magnesium Hydroxide (Milk Of Magnesia 30 Ml Oral.Susp) 30 ml PO DAILY PRN PRN Reason: Constipation Melatonin (Melatonin 3 Mg Tablet) 6 mg PO BEDTIME PRN PRN Reason: Insomnia Melatonin (Melatonin 3 Mg Tablet) 3 mg PO BEDTIME [facility] Meropenem (Meropenem 1 Gm Vial) 1 gm IV Q8H [facility] Last Admin: 04/20/24 06:22 Dose: 1 gm Metoprolol Succinate (Metoprolol Succinate Er 25 Mg Tab.Er.24h) 25 mg PO DAILY [facility]; Protocol Last Admin: 04/20/24 12:33 Dose: Not Given Omeprazole (Omeprazole 20 Mg Capsule.Dr) 20 mg PO DAILY@0630 [facility] Ondansetron HCl (Ondansetron Hcl 4 Mg/2 Ml Vial) 4 mg IVPUSH Q8H PRN PRN Reason: Nausea and Vomiting Senna (Sennosides 8.6 Mg Tablet) 17.2 mg PO BEDTIME [facility] Sertraline HCl (Sertraline Hcl 25 Mg Tablet) 25 mg PO DAILY [facility] Sodium Chloride (0.9 % Sodium Chloride Flush 3 Ml Syringe) 3 ml IVFLUSH QSHIFT [facility] Last Admin: 04/20/24 08:52 Dose: Not Given Sodium Chloride (0.9 % Sodium Chloride Flush 10 Ml Syringe) 5 ml IVFLUSH TID [facility] Thiamine HCl (Thiamine Hcl 100 Mg Tablet) 100 mg PO DAILY [facility] Tramadol HCl (Tramadol Hcl 50 Mg Tablet) 25 mg PO Q4H PRN PRN Reason: Pain, Severe (Pain Scale 7-10) Last Admin: 04/20/24 11:46 Dose: 25 mg Home Medications ?Medication ?Instructions ?Recorded ?Confirmed ?Last Taken ?Type colchicine 0.6 mg tablet 0.6 mg PO DAILY 11/18/23 04/20/24 11/16/23 History insulin glargine 100 unit/mL (3 17 unit subcut BEDTIME 11/18/23 04/20/24 03/22/24 History mL) subcutaneous pen (Lantus Solostar U-100 Insulin) insulin lispro 100 unit/mL 7 unit subcut TIDAC 11/18/23 04/20/24 03/22/24 History subcutaneous solution torsemide 20 mg tablet 20 mg PO DAILY 12/20/23 04/20/24 Unknown History albuterol sulfate 2.5 mg/3 mL 2.5 mg inhalation Q6H PRN 03/23/24 04/20/24 Unknown History (0.083 %) solution for nebulization Shortness Of Breath Or Wheezing apixaban 5 mg tablet (Eliquis) 5 mg PO BID 03/23/24 04/20/24 Unknown History empagliflozin 10 mg tablet 10 mg PO DAILY 03/23/24 04/20/24 03/22/24 History (Jardiance) fluticasone propionate 45 2 puff inhalation BID 03/23/24 04/20/24 Unknown History mcg-salmeterol 21 mcg/actuation HFA inhaler (Advair HFA) sennosides 8.6 mg tablet (senna) 17.2 mg PO BEDTIME 03/23/24 04/20/24 Unknown History Physical Exam 2 Vital Signs: Vital Signs: Last Vital Signs Temp 96.9 F 04/20/24 11:01 Pulse 82 04/20/24 11:12 Resp 15 04/20/24 11:12 BP 102/59 L 04/20/24 12:33 Pulse Ox 97 04/20/24 11:01 O2 Del Method CPAP 04/20/24 11:01 BMI result Body Mass Index 31.2 Const: General: comfortable and no acute distress O rientation/consciousness: patient oriented x3 HEENT: Ears: hearing grossly normal bilaterally Resp: Effort & Inspection: normal respiratory effort and able to speak in complete sentences Auscultation: clear to auscultation bilaterally Cardio: Rate: regular rate Rhythm: regular rhythm Heart sounds: S1 normal heart sound present and S2 normal heart sound present Bruits: no abdominal aortic bruits, no carotid bruits, no femoral bruits and no renal bruits GI: Palpation (GI): No Abdominal aortic bruit present Skin: Other: Nonhealing diabetic ulcer noted on L3. Aquacel dressing in place with Kerlix wrap over. Faint but palpable DP pulses. Erythema surrounding the wound. Wound bed is very pale. Dry eschar noted around the wound bed. Neuro: General: patient oriented x3 Cranial nerves: Yes Normal hearing present Sensory Exam: No Sensory deficit (Neuro) Results Labs 04/20/24 07:41 04/20/24 07:41 Labs: Abnormal lab results 04/19/24 04/19/24 04/19/24 Range/Units 18:14 18:23 22:26 RBC 4.12 L (4.60-5.80) X10*6/uL Hgb 9.0 L (14.0-18.0) g/dl Hct 31.2 L (42.0-52.0) % MCV 75.7 L (80.0-98.0) fL MCH 21.8 L (27.0-33.0) pg MCHC 28.8 L (31.0-36.0) g/dl RDW 20.9 H (11.0-16.0) % Neut % (Auto) (45-73) % Lymph % (Auto) (20-40) % Eos % (Auto) 18.0 H (0-4) % Lymph # (Auto) (1.2-4.9) X10*3/uL Eos # (Auto) 1.5 H (0.0-0.4) X10*3/uL VBG HCO3 39 H (22-26) mmol/L Carbon Dioxide 33 H (22-29) mmol/L BUN 18 H (9-16) mg/dL POC Glucose 243 H (60-115) mg/dL Random Glucose 236 H (60-115) mg/dL Alkaline Phosphatase 119 H (39-117) U/L B-Natriuretic Peptide 3298 H (<100) pg/mL Total Protein 6.0 L (6.5-8.0) g/dL Albumin 2.8 L (3.5-5.0) g/dL 04/20/24 04/20/24 04/20/24 Range/Units 06:54 07:41 10:49 RBC 4.14 L (4.60-5.80) X10*6/uL Hgb 9.0 L (14.0-18.0) g/dl Hct 31.1 L (42.0-52.0) % MCV 75.1 L (80.0-98.0) fL MCH 21.7 L (27.0-33.0) pg MCHC 28.9 L (31.0-36.0) g/dl RDW 20.6 H (11.0-16.0) % Neut % (Auto) 78.9 H (45-73) % Lymph % (Auto) 15.1 L (20-40) % Eos % (Auto) (0-4) % Lymph # (Auto) 0.8 L (1.2-4.9) X10*3/uL Eos # (Auto) (0.0-0.4) X10*3/uL VBG HCO3 (22-26) mmol/L Carbon Dioxide 31 H (22-29) mmol/L BUN 21 H (9-16) mg/dL POC Glucose 244 H 196 H (60-115) mg/dL Random Glucose 257 H (60-115) mg/dL Alkaline Phosphatase (39-117) U/L B-Natriuretic Peptide (<100) pg/mL Total Protein (6.5-8.0) g/dL Albumin (3.5-5.0) g/dL Short CBC 04/19/24 04/20/24 Range/Units 18:14 07:41 WBC 8.4 5.4 (4.8-10.8) X10*3/uL Hgb 9.0 L 9.0 L (14.0-18.0) g/dl Hct 31.2 L 31.1 L (42.0-52.0) % Plt Count 397 D 388 (160-400) X10*3/uL BMP 04/19/24 04/20/24 18:14 07:41 Sodium 145 142 Potassium 4.0 4.3 Chloride 103 103 Carbon Dioxide 33 H 31 H BUN 18 H 21 H Creatinine 1.10 1.15 Calcium 8.6 8.5 Liver Function 04/19/24 Range/Units 18:14 Total Bilirubin 0.5 (0.0-1.0) mg/dL AST 30 (5-37) U/L ALT 15 (0-40) U/L Alkaline Phosphatase 119 H (39-117) U/L Albumin 2.8 L (3.5-5.0) g/dL All other labs normal. Assessment and Plan (1) Diabetic infection of left foot: Status: Acute Plan We are consulted for a 58-year-old male with an ongoing nonhealing diabetic ulcer on his left foot. He is followed by Dr. Chapman as well as [facility] [place] [facility] for ongoing vascular and diabetic foot problems. The patient states he is not happy with [place] at this point. Due to the ongoing significant medical conditions that the patient is currently experiencing, there is no acute surgical intervention at this point. Also the patient is followed by Dr. Chapman for vascular. If the patient would like to follow up with us outpatient, then he would not be able to see Dr. Chapman; we would be happy seeing him if that is what he chooses. We suggest continuing with the current wound care and IV antibiotics. Thank you for the consult. If there are any questions or concerns, please reach out to us. Total time managing care of this patient today: 30 minutes. Procedures Date of Service Date of Service: 04/20/24
[2024-04-20] MEDS: Gabapentin 300 MG CAPSULE PO ×2 (15:31→21:04)
--- NOTE | 2024-04-20 15:38 | PC.NURSE ---
Addendum entered by Meliton Oliveira RN 04/20/24 17:29: field Iv d/c'ed from R hand Original Note: informed md of low bp's. holding antiHTN meds
[2024-04-20 16:09] LABS: Glucose, Whole Blood 231 mg/dL (60-115)
[2024-04-20 20:37] LABS: Glucose, Whole Blood 206 mg/dL (60-115)
[2024-04-20] MEDS: Melatonin 3 MG TABLET PO (21:04)
[2024-04-20] MEDS: Sennosides 8.6 MG TABLET 17.2 MG PO (21:04)
[2024-04-20] MEDS: Insulin Glargine,Hum.rec.anlog 100 UNIT/ML 10 ML VIAL 13 UNIT SUBCUT (21:05)
[2024-04-20] MEDS: 0.9 % Sodium Chloride Flush 10 ML SYRINGE 5 ML IVFLUSH (21:06)
[2024-04-20] MEDS: DAPTOmycin 600 MG in 0.9 % Sodium Chloride 50 ML 100 MG IV (23:17)
[2024-04-21] VITALS (9 sets, daily range): BP systolic 106–120; BP diastolic 63–76; PULSE 72–86; RESP 16–20; TEMP 36.1–36.7; O2SAT 93–98
[2024-04-21] MEDS: Meropenem 1 GM VIAL IV ×3 (05:31→22:59)
[2024-04-21] MEDS: Omeprazole 20 MG CAPSULE.DR PO (05:31)
[2024-04-21 07:01] LABS: Glucose, Whole Blood 96 mg/dL (60-115)
[2024-04-21 07:02] LABS: Iron 17 mcg/dL (45-160); Percent Iron Saturation 9 % (15-50); Total Iron Binding Capacity 184 mcg/dL (228-428); Unsaturated Iron Binding 167 ug/dL
[2024-04-21 07:03] LABS: Anion Gap 11 (12-20); Blood Urea Nitrogen 25 mg/dL (9-16); Calcium 8.7 mg/dL (8.4-10.2); Carbon Dioxide 32 mmol/L (22-29); Chloride 102 mmol/L (96-108); Creatinine Clr Calc Pharmacy 85.1; Estimated Glomerular Filt Rate > 60; Glucose Random 115 mg/dL (60-115); Potassium 3.6 mmol/L (3.3-5.1); Sodium 141 mmol/L (135-145)
[2024-04-21 07:19] LABS: B Type Natriuretic Peptide 2253 pg/mL (<100)
[2024-04-21] MEDS: Albuterol/Iprat 2.5/0.5MG 3 ML AMPUL.NEB INHALE ×3 (08:05→15:26)
[2024-04-21] MEDS: Fluticasone/Vilanterol 100/25 BLST.W.DEV 1 PUFF INHALE (08:05)
[2024-04-21] MEDS: Apixaban 5 MG TABLET PO ×2 (08:15→22:19)
[2024-04-21] MEDS: Colchicine 0.6 MG TABLET PO (08:15)
[2024-04-21] MEDS: Sertraline HCL 25 MG TABLET PO (08:15)
[2024-04-21] MEDS: Aspirin Enteric Coated 81 MG TABLET.DR PO (08:15)
[2024-04-21] MEDS: Thiamine HCL 100 MG TABLET PO (08:15)
[2024-04-21] MEDS: Amiodarone HCL 200 MG TABLET PO (08:15)
[2024-04-21] MEDS: 0.9 % Sodium Chloride Flush 3 ML SYRINGE IVFLUSH ×3 (08:15→22:20)
[2024-04-21] MEDS: Metoprolol Succinate ER 25 MG TAB.ER.24H PO (08:15)
[2024-04-21] MEDS: Gabapentin 300 MG CAPSULE PO ×3 (08:15→22:19)
[2024-04-21] MEDS: Furosemide 40 MG/4 ML VIAL IVPUSH ×2 (08:16→16:26)
[2024-04-21] MEDS: 0.9 % Sodium Chloride Flush 10 ML SYRINGE 5 ML IVFLUSH ×2 (08:16→16:25)
[2024-04-21] MEDS: Sodium Ferric Gluconat/Sucrose 125 MG in 0.9 % Sodium Chloride 100 ML 100 MG IV (09:03)
--- NOTE | 2024-04-21 09:50 | P.PNIM_ITS ---
Subjective Subjective Date of Service: 04/21/24 Interval History: seen and evaluated this morning feels better overnight has significant fluid overload no other events Review of Systems Review of Systems: Yes all other systems are reviewed and are negative Physical Exam 2 Vital Signs: Vital Signs: Last Vital Signs Temp 97.2 F 04/21/24 07:00 Pulse 83 04/21/24 08:05 Resp 18 04/21/24 08:05 BP 120/76 04/21/24 07:00 Pulse Ox 94 04/21/24 07:00 O2 Del Method CPAP 04/21/24 07:00 BMI result Body Mass Index 31.2 Const: Other: Constitutional : Awake, interactive, not in distress Neck : Normal inspection, Supple Cardiovascular : RRR, no JVP, +3 lower extremity edema bilaterally more on left side Respiratory : good bilateral air entry ut decreased at bases, fine basal crackles, no wheezes or rhonchi Gastrointestinal: soft, lax, Normal bowel sounds, Non tender Skin : Warm, Dry, LLE wounds looks clean but exposed deeply specially the palmar one, no clear connection between the wounds, covered with dressing. Neurological : Alert & oriented x3, No focal deficit Objective Data Active Medications Acetaminophen (Acetaminophen 325 Mg Tablet) 650 mg PO Q6H PRN PRN Reason: Pain, Mild (Pain Scale 1-3), fever or headache Last Admin: 04/20/24 07:45 Dose: 650 mg Documented By: YUNIOR Albuterol Sulfate (Albuterol Sulfate (0.083%) 2.5 Mg/3 Ml Vial.Neb) 2.5 mg INHALE Q6H PRN PRN Reason: Shortness Of Breath Or Wheezing Albuterol/Ipratropium (Albuterol/Iprat 2.5/0.5mg 3 Ml Ampul.Neb) 3 ml INHALE RQ4H WHILE AWAKE [facility] Last Admin: 04/21/24 08:05 Dose: 3 ml Documented By: SARAH Albuterol/Ipratropium (Albuterol/Iprat 2.5/0.5mg 3 Ml Ampul.Neb) 3 ml INHALE Q4H PRN PRN Reason: Wheezing Amiodarone HCl (Amiodarone Hcl 200 Mg Tablet) 200 mg PO DAILY [facility] Last Admin: 04/21/24 08:15 Dose: 200 mg Documented By: SUSAN Apixaban (Apixaban 5 Mg Tablet) 5 mg PO BID [facility] Last Admin: 04/21/24 08:15 Dose: 5 mg Documented By: SUSAN Aspirin (Aspirin Enteric Coated 81 Mg Tablet.Dr) 81 mg PO DAILY [facility] Last Admin: 04/21/24 08:15 Dose: 81 mg Documented By: SUSAN Calcium Carbonate (Calcium Carbonate 750 Mg Tab.Chew) 750 mg PO Q4H PRN PRN Reason: Heartburn Colchicine (Colchicine 0.6 Mg Tablet) 0.6 mg PO DAILY [facility] Last Admin: 04/21/24 08:15 Dose: 0.6 mg Documented By: SUSAN Fluticasone/Vilanterol (Fluticasone/Vilanterol 100/25 Blst.W.Dev) 1 puff INHALE DAILY [facility] Last Admin: 04/21/24 08:05 Dose: 1 puff Documented By: SARAH Furosemide (Furosemide 40 Mg/4 Ml Vial) 40 mg IVPUSH BID@0900,1800 [facility]; Protocol Last Admin: 04/21/24 08:16 Dose: 40 mg Documented By: SUSAN Gabapentin (Gabapentin 300 Mg Capsule) 300 mg PO TID [facility] Last Admin: 04/21/24 08:15 Dose: 300 mg Documented By: SUSAN Glucose (Glucose Gel 15 Gm Gel..Gram.) 15 gm PO Q15M PRN; Protocol PRN Reason: per Hypoglycemia Standing Ord. Hydralazine HCl (Hydralazine Hcl 10 Mg Tablet) 10 mg PO TID [facility]; Protocol Last Admin: 04/20/24 15:31 Dose: Not Given Documented By: PHILLIP Non-Admin Reason: low bp Dextrose (D10) 250 mls @ 750 mls/hr IV Q15M PRN; Protocol PRN Reason: per Hypoglycemia Standing Ord. Daptomycin 600 mg/ Sodium (Chloride) 62 mls @ 100 mls/hr IV Q24H [facility] Last Infusion: 04/21/24 00:06 Dose: Infused Documented By: ALIE Ferric Sodium Gluconate Complex 125 mg/ Sodium Chloride 110 mls @ 100 mls/hr IV DAILY [facility] Stop: 04/23/24 10:05 Last Admin: 04/21/24 09:03 Dose: 100 mls/hr Documented By: SUSAN Insulin Glargine (Insulin Glargine,Hum.Rec.Anlog 100 Unit/Ml 10 Ml Vial) 13 unit SUBCUT BEDTIME [facility] Last Admin: 04/20/24 21:05 Dose: 13 unit Documented By: ALIE Insulin Human Lispro (Insulin Lispro 100 Unit/Ml 3 Ml Vial) 0 unit SUBCUT QIDACHS [facility]; Protocol Last Admin: 04/21/24 08:05 Dose: Not Given Documented By: SUSAN Non-Admin Reason: poc= 96 Isosorbide Dinitrate (Isosorbide Dinitrate 5 Mg Tablet) 5 mg PO 0800,1300,1800 [facility]; Protocol Last Admin: 04/20/24 16:24 Dose: Not Given Documented By: PHILLIP Non-Admin Reason: per Magnesium Hydroxide (Milk Of Magnesia 30 Ml Oral.Susp) 30 ml PO DAILY PRN PRN Reason: Constipation Melatonin (Melatonin 3 Mg Tablet) 6 mg PO BEDTIME PRN PRN Reason: Insomnia Melatonin (Melatonin 3 Mg Tablet) 3 mg PO BEDTIME [facility] Last Admin: 04/20/24 21:04 Dose: 3 mg Documented By: ALIE Meropenem (Meropenem 1 Gm Vial) 1 gm IV Q8H [facility] Last Admin: 04/21/24 05:31 Dose: 1 gm Documented By: ALIE Metoprolol Succinate (Metoprolol Succinate Er 25 Mg Tab.Er.24h) 25 mg PO DAILY [facility]; Protocol Last Admin: 04/21/24 08:15 Dose: 25 mg Documented By: SUSAN Omeprazole (Omeprazole 20 Mg Capsule.) 20 mg PO DAILY@0630 [facility] Last Admin: 04/21/24 05:31 Dose: 20 mg Documented By: ALIE Ondansetron HCl (Ondansetron Hcl 4 Mg/2 Ml Vial) 4 mg IVPUSH Q8H PRN PRN Reason: Nausea and Vomiting Senna (Sennosides 8.6 Mg Tablet) 17.2 mg PO BEDTIME [facility] Last Admin: 04/20/24 21:04 Dose: 17.2 mg Documented By: ALIE Sertraline HCl (Sertraline Hcl 25 Mg Tablet) 25 mg PO DAILY [facility] Last Admin: 04/21/24 08:15 Dose: 25 mg Documented By: SUSAN Sodium Chloride (0.9 % Sodium Chloride Flush 3 Ml Syringe) 3 ml IVFLUSH QSHIFT [facility] Last Admin: 04/21/24 08:15 Dose: 3 ml Documented By: SUSAN Sodium Chloride (0.9 % Sodium Chloride Flush 10 Ml Syringe) 5 ml IVFLUSH TID [facility] Last Admin: 04/21/24 08:16 Dose: 5 ml Documented By: SUSAN Thiamine HCl (Thiamine Hcl 100 Mg Tablet) 100 mg PO DAILY [facility] Last Admin: 04/21/24 08:15 Dose: 100 mg Documented By: SUSAN Tramadol HCl (Tramadol Hcl 50 Mg Tablet) 25 mg PO Q4H PRN PRN Reason: Pain, Severe (Pain Scale 7-10) Last Admin: 04/20/24 11:46 Dose: 25 mg Documented By: YUNIOR Labs 04/20/24 07:41 04/21/24 05:25 Labs: Laboratory Results - last 24 hr 04/20/24 04/20/24 04/20/24 10:49 16:06 20:29 Anion Gap Estim Creat Clear Calc Estimated GFR POC Glucose 196 H 231 H 206 H Random Glucose Calcium Iron TIBC % Saturation Unsat Iron Binding B-Natriuretic Peptide 04/21/24 04/21/24 05:25 06:53 Anion Gap 11 L Estim Creat Clear Calc 85.1 Estimated GFR > 60 POC Glucose 96 Random Glucose 115 Calcium 8.7 Iron 17 L TIBC 184 L % Saturation 9 L Unsat Iron Binding 167 B-Natriuretic Peptide 2253 H Microbiology Microbiology Results: Microbiology 04/19/24 18:46 Blood Culture - Preliminary Blood - Venous No growth after 24 hours. 04/19/24 18:14 Blood Culture - Preliminary Blood - Venous No growth after 24 hours. Assessment and Plan (1) CHF exacerbation: Status: Acute (2) Diabetic infection of left foot: Status: Acute (3) Acute on chronic HFrEF (heart failure with reduced ejection fraction): Status: Acute (4) RIC (iron deficiency anemia): Status: Acute Plan This is a 58-year-old male with pertinent history of congestive heart failure with reduced ejection fraction, diabetic foot infection on IV antibiotics, COPD not on home oxygen, paroxysmal atrial fibrillation on Eliquis, CAD status post PCI, KIMANI on CPAP, insulin-dependent diabetes mellitus, mood disorder, peripheral arterial disease who presents to the emergency department for evaluation of dyspnea. # Acute on chronic congestive heart failure with reduced ejection fraction continue IV diuresis Strict I's and O's. Low-salt diet DC Jardiance, continue beta-lion keep legs elevated # acute on chronic Iron def. anemia No evidence of bleeding Low iron stores check occult Start IV Iron, DC on PO supplement will need outpatient GI follow up for further eval # Insulin-dependent diabetes mellitus with hyperglycemia basal plus insulin regimen # Diabetic foot infection with OM on IV Abx Wound care following On IV ertapenem and daptomycin until 05/14/2024 Vascular eval appreciated, continue wound care, no surgical intervention needed at this point # Peripheral arterial disease Previous arterial Dopplers showing delayed arterial upstroke. Outpatient follow-up with Dr. Leal # COPD, Continue home inhalers # KIMANI: CPAP at bedtime # CAD: On aspirin. Not on statin # Paroxysmal atrial fibrillation: On amiodarone, beta-lion and Eliquis # Mood disorder: Continue home mood stabilizers DVT prophylaxis: Eliquis Full code Admit as inpatient and will require overnight hospital stay for IV diuresis, close monitoring of volume status (as above), which is not possible in a lesser acute setting. Quality Stroke Does the patient have a stroke diagnosis?: No VTE Prior VTE?: No VTE Risk Level:: Medical - moderate - high VTE Device Contraindication: Treatment Not Indicated VTE Drug Contraindication: N/A - Med Ordered
--- NOTE | 2024-04-21 10:14 | MHC.CM.PN ---
Per ROUNDS discussion, Patient is not yet medically cleared for dc (2 IV ABT & IV Lasix); home/resume services is the goal and CM will continue to follow.
[2024-04-21 10:57] LABS: Glucose, Whole Blood 91 mg/dL (60-115)
[2024-04-21] MEDS: traMADoL HCL 50 MG TABLET 25 MG PO ×2 (11:10→22:31)
[2024-04-21 16:15] LABS: Glucose, Whole Blood 120 mg/dL (60-115)
[2024-04-21 21:36] LABS: Glucose, Whole Blood 117 mg/dL (60-115)
[2024-04-21] MEDS: Sennosides 8.6 MG TABLET 17.2 MG PO (22:18)
--- NOTE | 2024-04-21 22:18 | P.CNID_ITS ---
History of Present Illness Data of Consult Service Date: 04/21/24 Requesting physician: Mari Gómez Primary Care Provider: Phi Crisostomo [facility]- HPI Reason for consult: left foot infection He has cough and shortness of breath, He presents with these symptoms. He is on Ertapenem and Daptomycin until 05/14. He has no fever or chills. He is being treated for CHF. Review of Systems 2 Respiratory: Respiratory: Reports cough PMFSH Past Medical History Medical History Acute on chronic HFrEF (heart failure with reduced ejection fraction) History of osteomyelitis 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 Diverticulosis Tubular adenoma of colon (~2017) History of COVID-19 Nicotine dependence, cigarettes, uncomplicated Hypertensive retinopathy Microhematuria ICD (implantable cardioverter-defibrillator) in place COPD (chronic obstructive pulmonary disease) KIMANI (obstructive sleep apnea) Sleep apnea CAD (coronary artery disease) Paroxysmal atrial fibrillation (~2016) Family History Family History Father Atherosclerosis Mother Cerebral aneurysm Maternal Grandmother Unknown family medical history Mother Cerebral hemorrhage Father Coronary artery disease Family history: reviewed and not pertinent Surgical History Surgical History History of amputation of left great toe History of cardiac cath History of ankle surgery History of implantable cardiac defibrillator (ICD) History of colonoscopy History of heart artery stent History of cardiac radiofrequency ablation History of cardioversion History of esophagogastroduodenoscopy History of umbilical hernia History of inguinal hernia Social History Social History Household Members: None Housing: House Are you a primary career coach to a significant other at home: No Do you presently have visiting nurse or other home services: Yes (Wound nurse) Alcohol intake: former Comment: sitter at bedside Patient Tobacco Use Status: Current everyday Tobacco user Tobacco use type: Cigarette Cigarette Packs Per Day: 1 Cigarettes Per Day: 2 Years Smoked: (current smoker - onset 14yo, 1ppd x 43yrs, 40pyh) e-Cigarette/Vaping Use: Never Used Second Hand Smoke Exposure: Yes Advance Directives Date on File: 07/09/21 service: No Current occupational status: unemployed and disabled Current occupation: rt handed Cognitive needs: No Hearing needs: No Vision needs: Yes Meds Allergies Allergy/AdvReac Type Severity Reaction Status Date / Time No Known Allergies Allergy Verified 04/19/24 16:48 [No Known Allergies*] Active Medications: Current Medications Acetaminophen (Acetaminophen 325 Mg Tablet) 650 mg PO Q6H PRN PRN Reason: Pain, Mild (Pain Scale 1-3), fever or headache Last Admin: 04/20/24 07:45 Dose: 650 mg Albuterol Sulfate (Albuterol Sulfate (0.083%) 2.5 Mg/3 Ml Vial.Neb) 2.5 mg INHALE Q6H PRN PRN Reason: Shortness Of Breath Or Wheezing Albuterol/Ipratropium (Albuterol/Iprat 2.5/0.5mg 3 Ml Ampul.Neb) 3 ml INHALE RQ4H WHILE AWAKE [facility] Last Admin: 04/21/24 18:31 Dose: Not Given Albuterol/Ipratropium (Albuterol/Iprat 2.5/0.5mg 3 Ml Ampul.Neb) 3 ml INHALE Q4H PRN PRN Reason: Wheezing Amiodarone HCl (Amiodarone Hcl 200 Mg Tablet) 200 mg PO DAILY [facility] Last Admin: 04/21/24 08:15 Dose: 200 mg Apixaban (Apixaban 5 Mg Tablet) 5 mg PO BID [facility] Last Admin: 04/21/24 08:15 Dose: 5 mg Aspirin (Aspirin Enteric Coated 81 Mg Tablet.Dr) 81 mg PO DAILY [facility] Last Admin: 04/21/24 08:15 Dose: 81 mg Calcium Carbonate (Calcium Carbonate 750 Mg Tab.Chew) 750 mg PO Q4H PRN PRN Reason: Heartburn Colchicine (Colchicine 0.6 Mg Tablet) 0.6 mg PO DAILY [facility] Last Admin: 04/21/24 08:15 Dose: 0.6 mg Fluticasone/Vilanterol (Fluticasone/Vilanterol 100/25 Blst.W.Dev) 1 puff INHALE DAILY [facility] Last Admin: 04/21/24 08:05 Dose: 1 puff Furosemide (Furosemide 40 Mg/4 Ml Vial) 40 mg IVPUSH BID@0900,1800 [facility]; Protocol Last Admin: 04/21/24 16:26 Dose: 40 mg Gabapentin (Gabapentin 300 Mg Capsule) 300 mg PO TID [facility] Last Admin: 04/21/24 16:25 Dose: 300 mg Glucose (Glucose Gel 15 Gm Gel..Gram.) 15 gm PO Q15M PRN; Protocol PRN Reason: per Hypoglycemia Standing Ord. Hydralazine HCl (Hydralazine Hcl 10 Mg Tablet) 10 mg PO TID [facility]; Protocol Last Admin: 04/20/24 15:31 Dose: Not Given Dextrose (D10) 250 mls @ 750 mls/hr IV Q15M PRN; Protocol PRN Reason: per Hypoglycemia Standing Ord. Daptomycin 600 mg/ Sodium (Chloride) 62 mls @ 100 mls/hr IV Q24H [facility] Last Infusion: 04/21/24 00:06 Dose: Infused Ferric Sodium Gluconate Complex 125 mg/ Sodium Chloride 110 mls @ 100 mls/hr IV DAILY [facility] Stop: 04/23/24 10:05 Last Infusion: 04/21/24 10:09 Dose: Infused Insulin Glargine (Insulin Glargine,Hum.Rec.Anlog 100 Unit/Ml 10 Ml Vial) 13 unit SUBCUT BEDTIME [facility] Last Admin: 04/20/24 21:05 Dose: 13 unit Insulin Human Lispro (Insulin Lispro 100 Unit/Ml 3 Ml Vial) 0 unit SUBCUT QIDACHS [facility]; Protocol Last Admin: 04/21/24 21:35 Dose: Not Given Isosorbide Dinitrate (Isosorbide Dinitrate 5 Mg Tablet) 5 mg PO 0800,1300,1800 [facility]; Protocol Last Admin: 04/20/24 16:24 Dose: Not Given Magnesium Hydroxide (Milk Of Magnesia 30 Ml Oral.Susp) 30 ml PO DAILY PRN PRN Reason: Constipation Melatonin (Melatonin 3 Mg Tablet) 6 mg PO BEDTIME PRN PRN Reason: Insomnia Melatonin (Melatonin 3 Mg Tablet) 3 mg PO BEDTIME [facility] Last Admin: 04/20/24 21:04 Dose: 3 mg Meropenem (Meropenem 1 Gm Vial) 1 gm IV Q8H [facility] Last Admin: 04/21/24 16:24 Dose: 1 gm Metoprolol Succinate (Metoprolol Succinate Er 25 Mg Tab.Er.24h) 25 mg PO DAILY [facility]; Protocol Last Admin: 04/21/24 08:15 Dose: 25 mg Omeprazole (Omeprazole 20 Mg Capsule.Dr) 20 mg PO DAILY@0630 [facility] Last Admin: 04/21/24 05:31 Dose: 20 mg Ondansetron HCl (Ondansetron Hcl 4 Mg/2 Ml Vial) 4 mg IVPUSH Q8H PRN PRN Reason: Nausea and Vomiting Senna (Sennosides 8.6 Mg Tablet) 17.2 mg PO BEDTIME [facility] Last Admin: 04/20/24 21:04 Dose: 17.2 mg Sertraline HCl (Sertraline Hcl 25 Mg Tablet) 25 mg PO DAILY [facility] Last Admin: 04/21/24 08:15 Dose: 25 mg Sodium Chloride (0.9 % Sodium Chloride Flush 3 Ml Syringe) 3 ml IVFLUSH QSHIFT [facility] Last Admin: 04/21/24 16:25 Dose: 3 ml Sodium Chloride (0.9 % Sodium Chloride Flush 10 Ml Syringe) 5 ml IVFLUSH TID [facility] Last Admin: 04/21/24 16:25 Dose: 5 ml Thiamine HCl (Thiamine Hcl 100 Mg Tablet) 100 mg PO DAILY [facility] Last Admin: 04/21/24 08:15 Dose: 100 mg Tramadol HCl (Tramadol Hcl 50 Mg Tablet) 25 mg PO Q4H PRN PRN Reason: Pain, Severe (Pain Scale 7-10) Last Admin: 04/21/24 11:10 Dose: 25 mg Home Medications ?Medication ?Instructions ?Recorded ?Confirmed ?Last Taken ?Type colchicine 0.6 mg tablet 0.6 mg PO DAILY 11/18/23 04/20/24 11/16/23 History insulin glargine 100 unit/mL (3 17 unit subcut BEDTIME 11/18/23 04/20/24 03/22/24 History mL) subcutaneous pen (Lantus Solostar U-100 Insulin) insulin lispro 100 unit/mL 7 unit subcut TIDAC 11/18/23 04/20/24 03/22/24 History subcutaneous solution torsemide 20 mg tablet 20 mg PO DAILY 12/20/23 04/20/24 Unknown History albuterol sulfate 2.5 mg/3 mL 2.5 mg inhalation Q6H PRN 03/23/24 04/20/24 Unknown History (0.083 %) solution for nebulization Shortness Of Breath Or Wheezing apixaban 5 mg tablet (Eliquis) 5 mg PO BID 03/23/24 04/20/24 Unknown History empagliflozin 10 mg tablet 10 mg PO DAILY 03/23/24 04/20/24 03/22/24 History (Jardiance) fluticasone propionate 45 2 puff inhalation BID 03/23/24 04/20/24 Unknown History mcg-salmeterol 21 mcg/actuation HFA inhaler (Advair HFA) sennosides 8.6 mg tablet (senna) 17.2 mg PO BEDTIME 03/23/24 04/20/24 Unknown History Physical Exam 2 Vital Signs: Vital Signs: Last Vital Signs Temp 98.0 F 04/21/24 19:06 Pulse 76 04/21/24 19:06 Resp 18 04/21/24 19:06 BP 116/70 04/21/24 19:06 Pulse Ox 96 04/21/24 19:06 O2 Del Method Room Air 04/21/24 19:06 BMI result Body Mass Index 31.2 Const: General: cooperative HEENT: Head: Yes normal to inspection Face and sinus: Yes normal facial exam Mouth: Normal oral and palatal mucosa present Teeth and gingiva: d entition normal Eyes: General: appearance normal, both eyes and all related structures P upils: Equal, round and reactive pupils present Resp: Effort & Inspection: decreased respiratory effort Cardio: Rate: regular rate Rhythm: regular rhythm GI: Palpation (GI): Soft to palpation and nontender : General: Yes no CVA tenderness Back/Spine/Pelvis: Back: no CVA tenderness Skin: General skin exam: no rashes or lesions noted Neuro: General: moves all extremities Cranial nerves: Yes Equal, round and reactive pupils present Extrem: General: Yes normal to inspection Psych: Appearance: grossly normal Results Labs 04/20/24 07:41 04/21/24 05:25 Labs: BMP 04/21/24 05:25 Sodium 141 Potassium 3.6 Chloride 102 Carbon Dioxide 32 H BUN 25 H Creatinine 1.12 Calcium 8.7 Microbiology Microbiology Results: Microbiology 04/19/24 18:46 Blood - Venous Blood Culture - Preliminary No growth after 48 hours. 04/19/24 18:14 Blood - Venous Blood Culture - Preliminary No growth after 48 hours. Assessment and Plan (1) Diabetic infection of left foot: Status: Acute (2) Sepsis: Status: Acute (3) CHF exacerbation: Status: Acute Plan Finish antibiotics 05/14. Foot looks more clear and no other obvious infection seen,Alejandrina frausto for Ertapenem while in hospital.
[2024-04-21] MEDS: Insulin Glargine,Hum.rec.anlog 100 UNIT/ML 10 ML VIAL 13 UNIT SUBCUT (22:19)
[2024-04-21] MEDS: Melatonin 3 MG TABLET PO (22:19)
[2024-04-21] MEDS: DAPTOmycin 600 MG in 0.9 % Sodium Chloride 50 ML 100 MG IV (22:20)
[2024-04-22] VITALS (9 sets, daily range): BP systolic 98–118; BP diastolic 53–70; PULSE 72–86; RESP 16–20; TEMP 36.1–37.1; O2SAT 90–98
[2024-04-22 02:56] LABS: OBS Int Ctl Valid YES; OBS1 NEGATIVE (NEGATIVE)
[2024-04-22] MEDS: Omeprazole 20 MG CAPSULE.DR PO (05:52)
[2024-04-22] MEDS: Meropenem 1 GM VIAL IV ×3 (06:02→22:11)
[2024-04-22 07:13] LABS: Hemoglobin 8.7 g/dl (14.0-18.0); Mean Corpuscular Hemoglobin 21.8 pg (27.0-33.0); Mean Platelet Volume 9.5 fL (9.4-12.4); Platelet Count 454 X10*3/uL (160-400); Red Cell Distribution Width 20.7 % (11.0-16.0); White Blood Count 8.5 X10*3/uL (4.8-10.8)
[2024-04-22 07:20] LABS: Anion Gap 12 (12-20); Blood Urea Nitrogen 23 mg/dL (9-16); Calcium 8.2 mg/dL (8.4-10.2); Carbon Dioxide 32 mmol/L (22-29); Chloride 103 mmol/L (96-108); Creatinine Clr Calc Pharmacy 89.9; Estimated Glomerular Filt Rate > 60; Glucose Random 97 mg/dL (60-115); Potassium 3.6 mmol/L (3.3-5.1); Sodium 143 mmol/L (135-145)
[2024-04-22] MEDS: Albuterol/Iprat 2.5/0.5MG 3 ML AMPUL.NEB INHALE ×3 (07:24→14:57)
[2024-04-22] MEDS: Fluticasone/Vilanterol 100/25 BLST.W.DEV 1 PUFF INHALE (07:25)
[2024-04-22 07:48] LABS: B Type Natriuretic Peptide 1775 pg/mL (<100)
[2024-04-22 07:53] LABS: Glucose, Whole Blood 104 mg/dL (60-115)
[2024-04-22] MEDS: Aspirin Enteric Coated 81 MG TABLET.DR PO (08:07)
[2024-04-22] MEDS: Gabapentin 300 MG CAPSULE PO ×3 (08:07→20:44)
[2024-04-22] MEDS: Sertraline HCL 25 MG TABLET PO (08:07)
[2024-04-22] MEDS: Thiamine HCL 100 MG TABLET PO (08:07)
[2024-04-22] MEDS: Amiodarone HCL 200 MG TABLET PO (08:07)
[2024-04-22] MEDS: Metoprolol Succinate ER 25 MG TAB.ER.24H PO (08:07)
[2024-04-22] MEDS: 0.9 % Sodium Chloride Flush 3 ML SYRINGE IVFLUSH ×3 (08:08→20:45)
[2024-04-22] MEDS: Colchicine 0.6 MG TABLET PO (08:08)
[2024-04-22] MEDS: Apixaban 5 MG TABLET PO ×2 (08:08→20:44)
[2024-04-22] MEDS: Furosemide 40 MG/4 ML VIAL IVPUSH ×2 (08:08→16:40)
[2024-04-22] MEDS: traMADoL HCL 50 MG TABLET 25 MG PO ×2 (08:08→16:52)
[2024-04-22] MEDS: 0.9 % Sodium Chloride Flush 10 ML SYRINGE 5 ML IVFLUSH ×3 (08:09→21:04)
[2024-04-22] MEDS: Sodium Ferric Gluconat/Sucrose 125 MG in 0.9 % Sodium Chloride 100 ML 100 MG IV (09:38)
--- NOTE | 2024-04-22 11:08 | HO.PM.IMPN ---
Subjective Subjective Date of Service: 04/22/24 Interval History: Being followed for acute on chronic CHF with reduced EF Feeling better shortness of breath improved, still feels short of breath with activity, stool guaiac negative for blood, no acute events overnight. Review of Systems All other system reviewed and are negative Physical Exam Vital Signs: Vital Signs: Last Vital Signs Temp 97.6 F 04/22/24 07:46 Pulse 86 04/22/24 07:46 Resp 18 04/22/24 07:46 BP 109/70 04/22/24 07:46 Pulse Ox 94 04/22/24 07:46 O2 Del Method Room Air 04/22/24 07:46 BMI result Body Mass Index 31.2 Const: Other: Gen: Awake alert x3, in no acute distress HEENT: sclera anicteric, moist mucus membranes Neck: supple, no JVD Lungs: clear to auscultation bilaterally, no crackles Heart: regular rate and rhythm Abd: soft, non-tender, non-distended Ext: no edema Skin: warm/well-perfused, L plantar wound adherent slough, left 2nd toe wound with no surrounding hyperemia/no drainage, left 2nd web space moist Neuro: alert and oriented x3, no focal findings Psych: appropriate affect Objective Data Active Medications Acetaminophen (Acetaminophen 325 Mg Tablet) 650 mg PO Q6H PRN PRN Reason: Pain, Mild (Pain Scale 1-3), fever or headache Last Admin: 04/20/24 07:45 Dose: 650 mg Documented By: YUNIOR Albuterol Sulfate (Albuterol Sulfate (0.083%) 2.5 Mg/3 Ml Vial.Neb) 2.5 mg INHALE Q6H PRN PRN Reason: Shortness Of Breath Or Wheezing Albuterol/Ipratropium (Albuterol/Iprat 2.5/0.5mg 3 Ml Ampul.Neb) 3 ml INHALE RQ4H WHILE AWAKE [facility] Last Admin: 04/22/24 07:24 Dose: 3 ml Documented By: MALAIKA Albuterol/Ipratropium (Albuterol/Iprat 2.5/0.5mg 3 Ml Ampul.Neb) 3 ml INHALE Q4H PRN PRN Reason: Wheezing Amiodarone HCl (Amiodarone Hcl 200 Mg Tablet) 200 mg PO DAILY [facility] Last Admin: 04/22/24 08:07 Dose: 200 mg Documented By: SUSAN Apixaban (Apixaban 5 Mg Tablet) 5 mg PO BID [facility] Last Admin: 04/22/24 08:08 Dose: 5 mg Documented By: SUSAN Aspirin (Aspirin Enteric Coated 81 Mg Tablet.) 81 mg PO DAILY [facility] Last Admin: 04/22/24 08:07 Dose: 81 mg Documented By: SUSAN Calcium Carbonate (Calcium Carbonate 750 Mg Tab.Chew) 750 mg PO Q4H PRN PRN Reason: Heartburn Colchicine (Colchicine 0.6 Mg Tablet) 0.6 mg PO DAILY [facility] Last Admin: 04/22/24 08:08 Dose: 0.6 mg Documented By: SUSAN Fluticasone/Vilanterol (Fluticasone/Vilanterol 100/25 Blst.W.Dev) 1 puff INHALE DAILY [facility] Last Admin: 04/22/24 07:25 Dose: 1 puff Documented By: MALAIKA Furosemide (Furosemide 40 Mg/4 Ml Vial) 40 mg IVPUSH BID@0900,1800 [facility]; Protocol Last Admin: 04/22/24 08:08 Dose: 40 mg Documented By: SUSAN Gabapentin (Gabapentin 300 Mg Capsule) 300 mg PO TID [facility] Last Admin: 04/22/24 08:07 Dose: 300 mg Documented By: SUSAN Glucose (Glucose Gel 15 Gm Gel..Gram.) 15 gm PO Q15M PRN; Protocol PRN Reason: per Hypoglycemia Standing Ord. Hydralazine HCl (Hydralazine Hcl 10 Mg Tablet) 10 mg PO TID [facility]; Protocol Last Admin: 04/20/24 15:31 Dose: Not Given Documented By: PHILLIP Non-Admin Reason: low bp Dextrose (D10) 250 mls @ 750 mls/hr IV Q15M PRN; Protocol PRN Reason: per Hypoglycemia Standing Ord. Daptomycin 600 mg/ Sodium (Chloride) 62 mls @ 100 mls/hr IV Q24H [facility] Last Infusion: 04/21/24 22:59 Dose: Infused Documented By: WHITNEY Ferric Sodium Gluconate Complex 125 mg/ Sodium Chloride 110 mls @ 100 mls/hr IV DAILY [facility] Stop: 04/23/24 10:05 Last Infusion: 04/22/24 10:44 Dose: Infused Documented By: SUSAN Insulin Glargine (Insulin Glargine,Hum.Rec.Anlog 100 Unit/Ml 10 Ml Vial) 13 unit SUBCUT BEDTIME [facility] Last Admin: 04/21/24 22:19 Dose: 13 unit Documented By: WHITNEY Insulin Human Lispro (Insulin Lispro 100 Unit/Ml 3 Ml Vial) 0 unit SUBCUT QIDACHS [facility]; Protocol Last Admin: 04/22/24 08:00 Dose: Not Given Documented By: SUSAN Non-Admin Reason: POC= 104 Isosorbide Dinitrate (Isosorbide Dinitrate 5 Mg Tablet) 5 mg PO 0800,1300,1800 [facility]; Protocol Last Admin: 04/20/24 16:24 Dose: Not Given Documented By: PHILLIP Non-Admin Reason: per Magnesium Hydroxide (Milk Of Magnesia 30 Ml Oral.Susp) 30 ml PO DAILY PRN PRN Reason: Constipation Melatonin (Melatonin 3 Mg Tablet) 6 mg PO BEDTIME PRN PRN Reason: Insomnia Melatonin (Melatonin 3 Mg Tablet) 3 mg PO BEDTIME [facility] Last Admin: 04/21/24 22:19 Dose: 3 mg Documented By: WHITNEY Meropenem (Meropenem 1 Gm Vial) 1 gm IV Q8H [facility] Last Admin: 04/22/24 06:02 Dose: 1 gm Documented By: WHITNEY Metoprolol Succinate (Metoprolol Succinate Er 25 Mg Tab.Er.24h) 25 mg PO DAILY [facility]; Protocol Last Admin: 04/22/24 08:07 Dose: 25 mg Documented By: SUSAN Omeprazole (Omeprazole 20 Mg Capsule.Dr) 20 mg PO DAILY@0630 [facility] Last Admin: 04/22/24 05:52 Dose: 20 mg Documented By: WHITNEY Ondansetron HCl (Ondansetron Hcl 4 Mg/2 Ml Vial) 4 mg IVPUSH Q8H PRN PRN Reason: Nausea and Vomiting Senna (Sennosides 8.6 Mg Tablet) 17.2 mg PO BEDTIME [facility] Last Admin: 04/21/24 22:18 Dose: 17.2 mg Documented By: WHITNEY Sertraline HCl (Sertraline Hcl 25 Mg Tablet) 25 mg PO DAILY [facility] Last Admin: 04/22/24 08:07 Dose: 25 mg Documented By: SUSAN Sodium Chloride (0.9 % Sodium Chloride Flush 3 Ml Syringe) 3 ml IVFLUSH QSHIFT [facility] Last Admin: 04/22/24 08:08 Dose: 3 ml Documented By: SUSAN Sodium Chloride (0.9 % Sodium Chloride Flush 10 Ml Syringe) 5 ml IVFLUSH TID [facility] Last Admin: 04/22/24 08:09 Dose: 5 ml Documented By: SUSAN Thiamine HCl (Thiamine Hcl 100 Mg Tablet) 100 mg PO DAILY [facility] Last Admin: 04/22/24 08:07 Dose: 100 mg Documented By: SUSAN Tramadol HCl (Tramadol Hcl 50 Mg Tablet) 25 mg PO Q4H PRN PRN Reason: Pain, Severe (Pain Scale 7-10) Last Admin: 04/22/24 08:08 Dose: 25 mg Documented By: USSAN Labs 04/22/24 05:55 04/22/24 05:54 Labs: Laboratory Results - last 24 hr 04/21/24 04/21/24 04/22/24 16:09 21:32 02:45 MCV MCH MCHC RDW Plt Count MPV Absolute Nucleated RBC Nucleated RBC % (auto) Anion Gap Estim Creat Clear Calc Estimated GFR POC Glucose 120 H 117 H Random Glucose Calcium B-Natriuretic Peptide Stool Occult Blood NEGATIVE 04/22/24 04/22/24 04/22/24 05:54 05:55 07:44 MCV 75.0 L MCH 21.8 L MCHC 29.0 L RDW 20.7 H Plt Count 454 H MPV 9.5 Absolute Nucleated RBC 0.000 Nucleated RBC % (auto) 0.0 Anion Gap 12 Estim Creat Clear Calc 89.9 Estimated GFR > 60 POC Glucose 104 Random Glucose 97 Calcium 8.2 L B-Natriuretic Peptide 1775 H Stool Occult Blood Microbiology Microbiology Results: Microbiology 04/19/24 18:46 Blood Culture - Preliminary Blood - Venous No growth after 48 hours. 04/19/24 18:14 Blood Culture - Preliminary Blood - Venous No growth after 48 hours. Assessment and Plan (1) RIC (iron deficiency anemia): Status: Acute (2) CHF exacerbation: Status: Acute (3) Diabetic infection of left foot: Status: Acute Plan 58-year-old male with pertinent history of congestive heart failure with reduced ejection fraction, diabetic foot infection on IV antibiotics, COPD not on home oxygen, paroxysmal atrial fibrillation on Eliquis, CAD status post PCI, KIMANI on CPAP, insulin-dependent diabetes mellitus, mood disorder, peripheral arterial disease who presents to the emergency department for evaluation of dyspnea. # Acute on chronic congestive heart failure with reduced ejection fraction Shortness of breath improving greater than 1.5 L negative BNP improved from 3298 > 2253 to 1775 continue IV diuresis and bb, stable electrolytes and renal function Strict I's and O's. Low-salt diet Encourage out of bed to chair # acute on chronic Iron def. anemia No evidence of bleeding Low iron stores Stool guaiac negative on IV Iron d2/3, DC on PO supplement will need outpatient GI follow up for further eval # Insulin-dependent diabetes mellitus with hyperglycemia Stable blood sugars continue basal plus insulin regimen # Diabetic foot infection with OM on IV Abx Continue wound care On IV ertapenem and daptomycin until 05/14/2024, currently receiving meropenem and IV daptomycin. Vascular eval appreciated, continue wound care, no surgical intervention needed at this point # Peripheral arterial disease Previous arterial Dopplers showing delayed arterial upstroke. Outpatient follow-up with Dr. Leal # COPD, Continue home inhalers # KIMANI: CPAP at bedtime # CAD: On aspirin. Not on statin # Paroxysmal atrial fibrillation: Stable rate, continue amiodarone, beta-lion and Eliquis # Mood disorder: Continue home mood stabilizers DVT prophylaxis: Eliquis Full code Admit as inpatient and will require continued inpatient hospitalization for IV diuresis, close monitoring of volume status (as above), which is not possible in a lesser acute setting. Quality Stroke Does the patient have a stroke diagnosis?: No VTE Prior VTE?: No VTE Risk Level:: Medical - moderate - high VTE Device Contraindication: Treatment Not Indicated VTE Drug Contraindication: N/A - Med Ordered
[2024-04-22 12:03] LABS: Glucose, Whole Blood 94 mg/dL (60-115)
[2024-04-22 16:07] LABS: Glucose, Whole Blood 155 mg/dL (60-115)
[2024-04-22] MEDS: Insulin Lispro 100 UNIT/ML 3 ML VIAL SUBCUT (16:42)
[2024-04-22 20:39] LABS: Glucose, Whole Blood 148 mg/dL (60-115)
[2024-04-22] MEDS: Sennosides 8.6 MG TABLET 17.2 MG PO (20:44)
[2024-04-22] MEDS: Melatonin 3 MG TABLET PO (20:44)
[2024-04-22] MEDS: Insulin Glargine,Hum.rec.anlog 100 UNIT/ML 10 ML VIAL 13 UNIT SUBCUT (20:45)
[2024-04-22] MEDS: DAPTOmycin 600 MG in 0.9 % Sodium Chloride 50 ML 100 MG IV (22:14)
[2024-04-23] VITALS: BP 114/62; PULSE 76; RESP 20; TEMP 36.8; O2SAT 92
[2024-04-23 03:52] VITALS: BP 114/65; PULSE 74; RESP 20; TEMP 36.4; O2SAT 94
[2024-04-23] MEDS: Omeprazole 20 MG CAPSULE.DR PO (06:09)
[2024-04-23] MEDS: Meropenem 1 GM VIAL IV (06:09)
[2024-04-23 06:25] VITALS: PULSE 74; RESP 20; O2SAT 96
[2024-04-23] MEDS: Albuterol/Iprat 2.5/0.5MG 3 ML AMPUL.NEB INHALE (06:25)
[2024-04-23 07:40] LABS: Glucose, Whole Blood 118 mg/dL (60-115)
[2024-04-23 08:00] VITALS: BP 116/67; PULSE 75; RESP 18; TEMP 37.4; O2SAT 93
[2024-04-23 08:04] VITALS: PULSE 78; RESP 18; O2SAT 92
[2024-04-23] MEDS: Fluticasone/Vilanterol 100/25 BLST.W.DEV 1 PUFF INHALE (08:04)
[2024-04-23] MEDS: Metoprolol Succinate ER 25 MG TAB.ER.24H PO (08:25)
[2024-04-23] MEDS: Colchicine 0.6 MG TABLET PO (08:25)
[2024-04-23] MEDS: Gabapentin 300 MG CAPSULE PO (08:25)
[2024-04-23] MEDS: Furosemide 40 MG/4 ML VIAL IVPUSH (08:25)
[2024-04-23] MEDS: Apixaban 5 MG TABLET PO (08:25)
[2024-04-23] MEDS: Aspirin Enteric Coated 81 MG TABLET.DR PO (08:25)
[2024-04-23] MEDS: 0.9 % Sodium Chloride Flush 3 ML SYRINGE IVFLUSH (08:25)
[2024-04-23] MEDS: Amiodarone HCL 200 MG TABLET PO (08:25)
[2024-04-23] MEDS: Sertraline HCL 25 MG TABLET PO (08:25)
[2024-04-23] MEDS: Thiamine HCL 100 MG TABLET PO (08:25)
[2024-04-23] MEDS: 0.9 % Sodium Chloride Flush 10 ML SYRINGE 5 ML IVFLUSH (08:26)
[2024-04-23] MEDS: traMADoL HCL 50 MG TABLET 25 MG PO (08:35)
[2024-04-23 09:45] LABS: Anion Gap 8 (12-20); Blood Urea Nitrogen 21 mg/dL (9-16); Calcium 8.3 mg/dL (8.4-10.2); Carbon Dioxide 35 mmol/L (22-29); Chloride 102 mmol/L (96-108); Creatinine Clr Calc Pharmacy 113.5; Estimated Glomerular Filt Rate > 60; Glucose Random 140 mg/dL (60-115); Potassium 3.7 mmol/L (3.3-5.1); Sodium 141 mmol/L (135-145)
[2024-04-23 09:52] LABS: B Type Natriuretic Peptide 2720 pg/mL (<100)
--- NOTE | 2024-04-23 09:57 | P.DS_ITS ---
DS: Providers Provider Date of Service: 04/23/24 Date of admission: 04/19/24 22:09 Date of discharge: 04/23/24 Primary care physician: SAVANAH Harris Consults: 04/20/24 03:45 Consult to Wound Care Routine Reason for consultation: Wound to left great toe 04/20/24 09:17 Consult to Infectious Diseases Stat Consulting Provider: [facility] Reason for consultation: Dapto 04/20/24 10:30 Consult to Vascular Surgery Routine Consulting Provider: [facility] Vascular Services Reason for consultation: Worsening open wounds LLE with possible communication? DS: Diagnosis Discharge Diagnosis (1) RIC (iron deficiency anemia): Status: Acute (2) CHF exacerbation: Status: Acute (3) Diabetic infection of left foot: Status: Acute DS: Summary Hospital Course Hospital Course: History of presenting illness: Date of Service: 04/19/24 Chief Complaint: Dyspnea This is a 58-year-old male with pertinent history of congestive heart failure with reduced ejection fraction, diabetic foot infection on IV antibiotics, COPD not on home oxygen, paroxysmal atrial fibrillation on Eliquis, CAD status post PCI, KIMANI on CPAP, insulin-dependent diabetes mellitus, mood disorder, peripheral arterial disease who presents to the emergency department for evaluation of dyspnea. Patient states symptoms started 2 days prior to presentation. He has been having shortness of breath which is worse with exertion. Also shortness of breath is worse when he lays flat. Also noticed bilateral lower extremity leg swelling. Patient states he feels like he has also gained weight. No chest pain, palpitations, fever, chills, nausea, vomiting, abdominal pain, changes in urinary or bowel habits. In the emergency department, BNP found to be elevated and imaging concerning for pulmonary vascular congestion and pleural effusion. Hospital course: 58-year-old gentleman with past medical history significant for congestive heart failure with reduced ejection fraction, diabetic left foot infection/osteomyelitis on IV antibiotics, COPD not on home oxygen, paroxysmal atrial fibrillation on Eliquis and amiodarone, CAD status post PCI, KIMANI on CPAP, insulin-dependent diabetes mellitus, mood disorder, peripheral arterial disease who presents to the emergency department for evaluation of dyspnea, And diagnosed to have acute on chronic CHF with reduced EF, patient admitted to telemetry unit and treated with IV Lasix with good response greater than 2.5 L negative, BNP improved but remains elevated, since patient is hemodynamically stable, appears euvolemic, therefore being discharged home on torsemide 40 mg daily (home dose was 20 mg daily) recommend close outpatient follow-up with Car diology. Patient is recommended to continue all home medications including Isordil, hydralazine, and Jardiance. In regard to diabetic foot infection with osteomyelitis recommend to continue IV ertapenem am daptomycin as previously planned with end date 05/14, patient was evaluated by vascular surgeon they recommend to continue wound care and no surgical intervention was recommended in regard to peripheral up arterial disease he is recommended to follow-up with vascular surgery Dr. Watkins as outpatient. Insulin-dependent diabetes mellitus recommend to continue home insulin and diabetic diet. Atrial fibrillation noted to be in stable heart rate recommend to continue amiodarone beta-blockers and Eliquis Mood disorder continue home medications For obstructive sleep apnea recommend to continue CPAP, no acute COPD exacerbation was noted. Time Attestation Discharge Coordination Time (in mins): 40 Quality: Safe Use of Opioids Does Pt have an Active Cancer Diagnosis on the Problem List?: No Quality: Stroke Does the patient have a stroke diagnosis?: No Physical Exam Vital Signs: Vital Signs: Last Vital Signs Temp 99.4 F 04/23/24 08:00 Pulse 78 04/23/24 08:04 Resp 18 04/23/24 08:04 BP 116/67 04/23/24 08:00 Pulse Ox 93 04/23/24 08:00 O2 Del Method CPAP 04/23/24 08:00 BMI result Body Mass Index 31.2 Const: Other: Gen: Awake alert x3, in no acute distress HEENT: sclera anicteric, moist mucus membranes Neck: supple, no JVD Lungs: clear to auscultation bilaterally, no crackles Heart: regular rate and rhythm Abd: soft, non-tender, non-distended Ext: no edema Skin: warm/well-perfused, L plantar wound adherent slough, left 2nd toe wound w ith no surrounding hyperemia/no drainage, left 2nd web space moist Neuro: alert and oriented x3, no focal findings Psych: appropriate affect DS: Data Data Completed and Pending Completed studies during hospitalization [Text1]: Procedures Assistance with Respiratory Ventilation, Less than 24 Consecutive Hours, Continuous Positive Airway Pressure (03/23/24) Insertion of Infusion Device into Superior Vena Cava, Percutaneous Approach (03/23/24) Performance of Urinary Filtration, Intermittent, Less than 6 Hours Per Day (03/23/24) Restorationism of Cardiac Rhythm, Single (06/23/21) Ultrasonography of Superior Vena Cava, Guidance (03/23/24) Labs on day of discharge: Laboratory Results - last 24 hr 04/22/24 04/22/24 04/22/24 11:37 16:00 20:35 Sodium Potassium Chloride Carbon Dioxide Anion Gap BUN Creatinine Estim Creat Clear Calc Estimated GFR POC Glucose 94 155 H 148 H Random Glucose Calcium B-Natriuretic Peptide 04/23/24 04/23/24 04/23/24 07:35 09:09 09:10 Sodium 141 Potassium 3.7 Chloride 102 Carbon Dioxide 35 H Anion Gap 8 L BUN 21 H Creatinine 0.84 Estim Creat Clear Calc 113.5 Estimated GFR > 60 POC Glucose 118 H Random Glucose 140 H Calcium 8.3 L B-Natriuretic Peptide 2720 H Preliminary micro results at discharge 04/19/24 18:46 Blood Culture - Preliminary Blood - Venous No growth after 48 hours. 04/19/24 18:14 Blood Culture - Preliminary Blood - Venous No growth after 48 hours. Discharge Plan Discharge Anticipated Discharge Date/Time: 04/23/24 09:55 Patient Disposition: Home Health Service Discharge Diagnosis: Acute on chronic CHF with reduced EF Iron deficiency anemia Diabetic foot infection Referrals: [facility] [Outside] Phi Crisostomo, STEAM FINISHER- [Primary Care Provider] - 1 Week Discharge Medications: New torsemide 40 mg tablet 40 mg PO DAILY Qty: 30 0RF Continued (DME) pen needle, diabetic [BD Ultra-Fine Mini Pen Needle] 31 gauge x 3/16 needle See Rx Instructions .Route Qty: 400 1RF Rx Instructions: As directed to inject insulin 4 times per day (DME) diabetic shoes with custom insert for left shoe See Rx Instructions .Route .MEDSUPPLY Qty: 1 0RF Rx Instructions: As directed amiodarone 200 mg tablet 200 mg PO DAILY Qty: 30 0RF aspirin [Adult Low Dose Aspirin] 81 mg tablet,delayed release (DR/EC) 81 mg PO DAILY Qty: 90 1RF melatonin 3 mg tablet 3 mg PO BEDTIME Qty: 90 1RF omeprazole 20 mg capsule,delayed release(DR/EC) 20 mg PO DAILY@0630 90 Days Qty: 90 1RF thiamine HCl (vitamin B1) 100 mg tablet 100 mg PO DAILY Qty: 90 1RF sertraline 25 mg tablet 25 mg PO DAILY Qty: 90 1RF (DME) FreeStyle Samantha 3 Sensor Device See Rx Instructions .Route Qty: 6 1RF Rx Instructions: Test blood sugar TID (DME) FreeStyle Lite Strips Strip See Rx Instructions .Route Qty: 300 1RF Rx Instructions: TID testing gabapentin 300 mg capsule 300 mg PO TID Qty: 270 1RF sennosides [senna] 8.6 mg tablet 17.2 mg PO BEDTIME albuterol sulfate 2.5 mg /3 mL (0.083 %) solution for nebulization 2.5 mg inhalation Q6H PRN (Reason: Shortness Of Breath Or Wheezing) fluticasone propion-salmeterol [Advair HFA] 45-21 mcg/actuation Hfa Aerosol Inhaler 2 puff INHALATION BID Eliquis 5 mg tablet 5 mg PO BID Jardiance 10 mg tablet 10 mg PO DAILY daptomycin 500 mg recon soln 600 mg IV Q24H Rx Instructions: administer over 30 mins hydralazine 10 mg Tablet 10 mg PO TID Qty: 90 0RF Protocol: Hold for SBP< HOLD for SBP < : 90 metoprolol succinate 25 mg Tablet Extended Release 24 Hr 25 mg PO DAILY Qty: 30 0RF Protocol: Hold for SBP/HR < HOLD for SBP < : 90 HOLD for HR < : 60 isosorbide dinitrate 5 mg Tablet 5 mg PO 0800,1300,1800 Qty: 90 0RF Protocol: Hold for SBP< HOLD for SBP < : 90 sodium chloride 0.9 % (flush) [Normal Saline Flush] Syringe 5 ml IVFLUSH TID Qty: 1 0RF ertapenem 1 gram recon soln 1 g IV DAILY Qty: 1 0RF insulin glargine [Lantus Solostar U-100 Insulin] 100 unit/mL (3 mL) insulin pen 17 unit subcut BEDTIME insulin lispro 100 unit/mL Solution 7 unit SUBCUT TIDAC colchicine 0.6 mg Tablet 0.6 mg PO DAILY Discontinued torsemide 20 mg tablet 20 mg PO DAILY Discharge Orders: Discharge Order (Routine); Ordered 04/23/24 Ordered By: Mari Gómez Diet: Diabetic diet Activity on Discharge: As tolerated Stand Alone Forms: Patient Portal Discharge page Print Language: Mongolian Care Plan Goals: Increase dose of torsemide to 40 mg daily (can take 2 tablets of torsemide 20 mg daily) script for torsemide 40 mg sent to pharmacy Finished course of IV antibiotics as previously prescribed end date Continue all other home medications as before Health Concerns: Diabetes mellitus/CHF Plan of Treatment: Outpatient follow-up with machine overhauler Dr. Flor for medication management Outpatient follow-up with Infectious Disease as previously planned Outpatient follow-up with primary care physician call for appointment Assessment: As above
[2024-04-23] MEDS: Sodium Ferric Gluconat/Sucrose 125 MG in 0.9 % Sodium Chloride 100 ML 100 MG IV (10:33)
[2024-04-23 11:16] LABS: Glucose, Whole Blood 132 mg/dL (60-115)
--- NOTE | 2024-04-23 11:18 | MHC.CM.PN ---
PT TO DC HOME TODAY WITH RESUMPTION OF [facility] [facility] UPDATES, INCLUDING THE [facility], SENT TO [facility] TO TRANSPORT
[2024-04-23 11:39] VITALS: BP 118/71; PULSE 75; RESP 18; TEMP 36.1; O2SAT 96
== END 2024-04-23 13:24 | disposition home health service (06) | DRG 291 ==
LOC: HO.ED 21:06 → HO.EDOVER 22:25 → HO.IMC 23:23
PROVIDERS: Student in an Organized Health Care Education/Training Program; Admitting Provider Student in an Organized Health Care Education/Training Program; Emergency Provider Student in an Organized Health Care Education/Training Program; PCP Nurse Practitioner Family; Visit Provider Hospitalist
DX: I11.0 Hypertensive heart disease with heart failure (principal); I50.23 Acute on chronic systolic (congestive) heart failure; M86.9 Osteomyelitis, unspecified; L97.429 Non-pressure chronic ulcer of left heel and midfoot with unspecified severity; I25.10 Atherosclerotic heart disease of native coronary artery without angina pectoris; I42.9 Cardiomyopathy, unspecified; J44.9 Chronic obstructive pulmonary disease, unspecified; I48.0 Paroxysmal atrial fibrillation; G47.33 Obstructive sleep apnea (adult) (pediatric); E11.51 Type 2 diabetes mellitus with diabetic peripheral angiopathy without gangrene; E11.69 Type 2 diabetes mellitus with other specified complication; E11.65 Type 2 diabetes mellitus with hyperglycemia; Z95.5 Presence of coronary angioplasty implant and graft; Z95.810 Presence of automatic (implantable) cardiac defibrillator; E11.621 Type 2 diabetes mellitus with foot ulcer; L97.529 Non-pressure chronic ulcer of other part of left foot with unspecified severity; F17.210 Nicotine dependence, cigarettes, uncomplicated; D50.9 Iron deficiency anemia, unspecified; Z71.6 Tobacco abuse counseling; Z79.4 Long term (current) use of insulin; Z79.01 Long term (current) use of anticoagulants; Z79.51 Long term (current) use of inhaled steroids; Z79.82 Long term (current) use of aspirin; Z79.899 Other long term (current) drug therapy
CPT/HCPCS: 36415; 71045; 73620; 80048; 80053; 82272; 82803; 82947; 83540; 83605; 83880; 84484; 85025; 85027; 87040; 93005; 93971; 94640; 94660; 99285; J0878; J1885; J1940; J2185; J2916

== ENCOUNTER → 2024-04-19 17:07 | Outpatient (BNV) | payer OTHER, SELFPAY | PROVIDERS: Admitting Provider Student in an Organized Health Care Education/Training Program; Emergency Provider Student in an Organized Health Care Education/Training Program; PCP Nurse Practitioner Family; Visit Provider Internal Medicine Cardiovascular Disease | DX: R94.31 Abnormal electrocardiogram [ECG] [EKG] (principal) | CPT/HCPCS: 93010 ==

== ENCOUNTER → 2024-04-19 22:09 | Outpatient (BNV) | payer OTHER, SELFPAY | PROVIDERS: Admitting Provider Student in an Organized Health Care Education/Training Program; Emergency Provider Student in an Organized Health Care Education/Training Program; PCP Nurse Practitioner Family; Visit Provider Physician Assistant Surgical | DX: E11.628 Type 2 diabetes mellitus with other skin complications (principal); L08.9 Local infection of the skin and subcutaneous tissue, unspecified | CPT/HCPCS: 99221 ==

== ENCOUNTER → 2024-04-19 22:09 | Outpatient (BNV) | payer OTHER, SELFPAY | PROVIDERS: Admitting Provider Student in an Organized Health Care Education/Training Program; Emergency Provider Student in an Organized Health Care Education/Training Program; PCP Nurse Practitioner Family; Visit Provider Internal Medicine | DX: E11.628 Type 2 diabetes mellitus with other skin complications (principal); L08.9 Local infection of the skin and subcutaneous tissue, unspecified; A41.9 Sepsis, unspecified organism; I50.9 Heart failure, unspecified | CPT/HCPCS: 99222 ==

== ENCOUNTER → 2024-04-19 22:09 | Outpatient (BNV) | payer OTHER, SELFPAY | PROVIDERS: Admitting Provider Student in an Organized Health Care Education/Training Program; Emergency Provider Student in an Organized Health Care Education/Training Program; PCP Nurse Practitioner Family; Visit Provider Student in an Organized Health Care Education/Training Program | DX: I50.23 Acute on chronic systolic (congestive) heart failure (principal); E11.628 Type 2 diabetes mellitus with other skin complications; L08.9 Local infection of the skin and subcutaneous tissue, unspecified; D50.9 Iron deficiency anemia, unspecified | CPT/HCPCS: 99223; 99232; 99233; 99239 ==

== ENCOUNTER 2024-04-27 12:24 | Outpatient (AMB) | payer OTHER, SELFPAY ==
[2024-04-27 12:45] VITALS: BP 118/70; PULSE 72; O2SAT 97; BMI 33.5
--- NOTE | 2024-04-27 12:45 | MHC.PC.OV ---
Vital Signs 04/27/24 12:45 Height 5 ft 11 in Weight 240 lb BMI 33.5 BP 118/70 Blood Pressure Location Rt brachial Position Sitting Pulse 72 Pulse Source Pulse Oximeter Pulse Oximetry (%) 97 Intake Visit Reasons: HDF/Heart failure Intake Note: pt is here for hdf f/up Dietitian Teaching Required: No Accompanied by: Self / Same As Patient Allergies No Known Allergies [No Known Allergies*] Allergy (Verified 04/27/24 12:47) Tobacco use date assessed: 01/10/24 Dental Screening Dental Screen Date: 01/10/24 HPI HPI Comments History of Present Illness Details 58 y/o male patient who presents to the clinic today for HDF. He was admitted at [facility] [place] 04[place]19[place]24 due to CHF Exacerbation. He ws discharged home on 04/23/24. He was started on new medication; Torsemide 40 mg. He needs to schedule an appointment with Cardiology for f/u. 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 Diverticulosis Tubular adenoma of colon (~2018) History of COVID-19 Nicotine dependence, cigarettes, uncomplicated Hypertensive retinopathy Microhematuria ICD (implantable cardioverter-defibrillator) in place COPD (chronic obstructive pulmonary disease) KIMANI (obstructive sleep apnea) Sleep apnea CAD (coronary artery disease) Paroxysmal atrial fibrillation (~2017) Surgical History History of amputation of left great toe History of cardiac cath History of ankle surgery History of implantable cardiac defibrillator (ICD) History of colonoscopy History of heart artery stent History of cardiac radiofrequency ablation History of cardioversion History of esophagogastroduodenoscopy History of umbilical hernia History of inguinal hernia Family History Father Atherosclerosis Mother Cerebral aneurysm Maternal Grandmother Unknown family medical history Mother Cerebral hemorrhage Father Coronary artery disease Social History Household Members: None Housing: House Are you a primary day care aide to a significant other at home: No Do you presently have visiting nurse or other home services: Yes (Wound nurse) Alcohol intake: former Comment: sitter at bedside Patient Tobacco Use Status: Current everyday Tobacco user Tobacco use type: Cigarette Cigarette Packs Per Day: 1 Cigarettes Per Day: 2 Years Smoked: (current smoker - onset 14yo, 1ppd x 43yrs, 40pyh) Packs Per Year: 0 Packs per year/per ci.00 e-Cigarette/Vaping Use: Never Used Second Hand Smoke Exposure: Yes Advance Directives Date on File: 07/09/21 service: No Current occupational status: unemployed and disabled Current occupation: rt handed Cognitive needs: No Hearing needs: No Vision needs: Yes Questionnaire Thrive Questionnaire Date Thrive assessed: 01/10/24 I am a: Patient What is your living situation today?: I have a place to live, but I am worried about losing it in the future Within the past 12 months, did the food you bought not last and you didn't have the money to get more?: Sometimes True Within the past 12 months, did you worry whether your food would run out before you got money to buy more?: Sometimes True Do you have trouble paying for medicines?: No Do you have trouble getting transportation to medical appointments?: No Do you have trouble paying your heating and electricity bill?: I choose not to answer this question Do you have trouble taking care of your child, family member or friend?: I choose not to answer this question Do you have trouble with day-to-day activities such as bathing, preparing meals, shopping, managing finances, etc.?: Yes Are you currently unemployed and looking for a job?: No Are you interested in more education?: No Please select the resources that you would like help with: None Currently or been in a relationship where the following occur: I choose not to answer THRIVE Score: 3 DIPIKA-7 AMB Questionnaire DIPIKA-7 Date DIPIKA - 7 assessed: 01/03/24 Source: Developed by Drs. Cesar Santana, Julia Mays, Ian Shell and colleagues, with an educational nia from [employer]. Review of Systems Const All systems reviewed & are unremarkable except as noted in HPI and below Physical exam (Primary Care) Vital Signs: Last Vital Signs Pulse 72 04/27/24 12:45 BP 118/70 04/27/24 12:45 Pulse Ox 97 04/27/24 12:45 BMI result Body Mass Index 33.5 Tobacco/Smoking Status: Tobacco use Status Tobacco use date assessed 01/10/24 04/27/24 12:49 Patient Tobacco Use Status Current everyday Tobacco 04/27/24 12:49 Tobacco use type Cigarette 04/27/24 12:49 e-Cigarette/Vaping Use Never Used 04/27/24 12:49 Thrive Assessment: Date of Thrive Assessment Date Thrive assessed 01/10/24 04/27/24 12:49 Currently or been in a relationship where the following occur: I choose not to answer Const General: no acute distress Nutritional Appearance: overweight Orientation/consciousness: patient oriented x3 Resp Effort & Inspection: normal respiratory effort Auscultation: clear to auscultation bilaterally Cardio Rhythm: abnormal rhythm Heart sounds: S1 normal heart sound present and S2 normal heart sound present Neuro General: patient oriented x3, gait normal and moves all extremities Extrem Right lower extremity: lower leg Details: non-pitting edema; no erythema and no tenderness Left lower extremity: lower leg Details: tenderness and pitting edema; no erythema Psych Speech and movement: Normal speech and movement present Coding Level of Care Code Est Pt Level 4 (63339) Diagnoses Acute on chronic congestive heart failure, unspecified heart failure type I50.9 Heart failure type: unspecified Time Spent (min) 20 Comment SPENT REVIEWING HOSPITAL NOTES. Assessment & Plan Assessment & Plan (1) CHF exacerbation: Code(s): I50.9 - Heart failure, unspecified Category: Medical Qualifiers: Heart failure type: unspecified Qualified Code(s): I50.9 - Heart failure, unspecified Plan: Managed by [facility] Cardiology.
== END 2024-04-27 15:08 | disposition home or self-care (01) ==
LOC: HO.HMCC 12:25
PROVIDERS: PCP Nurse Practitioner Family; Visit Provider Nurse Practitioner Family
DX: I50.9 Heart failure, unspecified (principal)

== ENCOUNTER → 2024-04-27 12:24 | Outpatient (BNVA) | payer OTHER, SELFPAY | PROVIDERS: PCP Nurse Practitioner Family; Visit Provider Nurse Practitioner Family | DX: I50.9 Heart failure, unspecified (principal) | CPT/HCPCS: 99212 ==

== ENCOUNTER 2024-05-03 16:28 | Inpatient (IN) | payer OTHER, SELFPAY ==
[2024-05-03] VITALS (8 sets, daily range): BP systolic 85–124; BP diastolic 50–74; PULSE 74–78; RESP 16–22; TEMP 36.6–36.7; O2SAT 93–99; BMI 34.9
--- NOTE | ~2024-05-03 | CT_ITS ---
EXAMINATION: CT ABDOMEN AND PELVIS WITH CONTRAST CLINICAL INFORMATION: Left lateral abdominal wall pain. COMPARISON: Most recent CT abdomen/pelvis dated 03/28/2024. TECHNIQUE: Multidetector volumetric images were obtained from the superior aspect of the liver through the pubic symphysis following administration 85 mL of Omnipaque 350 intravenous contrast. Sagittal and coronal reformatted images were obtained on the technologist's workstation. Oral contrast: No This CT examination was performed using dose optimization techniques as appropriate, variously including the following: *Automated exposure control *Adjustment of mA and/or kV according to patient size (this includes techniques or standardized protocols for targeted exams where dose is matched to indication/reason for exam; i.e. extremities or head) *Use of iterative reconstruction technique DLP: 984 mGy-cm. FINDINGS: LUNG BASES: Trace bibasilar pleural effusions with redemonstration of left pleural calcifications. Increasing right basilar atelectasis versus early infiltrates. LIVER, GALLBLADDER, AND BILIARY TREE: The liver is normal in size, shape, and attenuation. No focal hepatic lesion or biliary ductal dilatation is present. The gallbladder is unremarkable with no evidence of radiopaque gallstones, gallbladder wall thickening, or obvious pericholecystic inflammatory changes. PANCREAS: Unremarkable. SPLEEN: Unremarkable. ADRENAL GLANDS: Unremarkable. KIDNEYS AND URETERS: The kidneys are normal in size, shape, and attenuation. No hydronephrosis, hydroureter, or calculi seen. No perinephric stranding. BLADDER: Unremarkable. GASTROINTESTINAL TRACT: No small or large bowel obstruction. Descending and sigmoid colon diverticulosis without evidence of acute diverticulitis. No bowel wall thickening or inflammatory change. Mild stool burden throughout the colon. Unremarkable appendix. PERITONEAL CAVITY: Mild simple ascites, increased when compared to the prior CT. No organized fluid collection or abscess formation. No large intra-abdominal mass. ABDOMINAL WALL: Anterior abdominal wall and right inguinal postsurgical change. No abdominal wall hernia. Circumferential subcutaneous edema, increased when compared to the prior CT. No abdominal wall mass or organized fluid collection. LYMPH NODES: No significant lymphadenopathy. VASCULAR: No abdominal aortic dilatation. Atherosclerotic calcifications. Unremarkable IVC. PELVIC VISCERA: The prostate and seminal vesicles are unremarkable. OSSEOUS STRUCTURES: No acute osseous abnormality. CT/CT abdomen pelvis w IV con IMPRESSION: 1. Mild simple ascites, increased when compared to the prior CT. No organized fluid collection or abscess formation. 2. Diverticulosis without evidence of acute diverticulitis. No small or large bowel obstruction. Mild stool burden throughout the colon. Unremarkable appendix. 3. Circumferential subcutaneous edema, increased when compared to the prior CT. No abdominal wall mass or organized fluid collection. 4. Trace bibasilar pleural effusions with redemonstration of left pleural calcifications. Increasing right basilar atelectasis versus early infiltrates. Fleischner guidelines were followed. Electronically signed by: Shin Siddiqui MD 05/03/2024 09:00 PM [facility]
--- NOTE | ~2024-05-03 | US_ITS ---
EXAMINATION: US TRIPLEX UPPER EXTREMITY, LEFT CLINICAL INFORMATION: Left upper extremity swelling/edema and pain. PICC line. COMPARISON: None available. TECHNIQUE: Color-flow triplex imaging with spectral analysis and compression Doppler was performed on the left upper extremity. FINDINGS: The left internal jugular, subclavian, and axillary veins are patent and free of thrombus. The imaged segment of the left brachiocephalic vein is patent. Spectral doppler waveforms are normal. PICC line identified. The brachial, basilic, cephalic, radial, and ulnar veins are patent and compressible. US/US venous duplex UE LT IMPRESSION: No evidence of deep venous thrombosis involving the left upper extremity. Electronically signed by: Shin Siddiqui MD 05/13/2024 04:18 PM [facility]
--- NOTE | ~2024-05-03 | XR_ITS ---
XR/XR chest 2V IMPRESSION: Bibasilar opacities may reflect aspiration, atelectasis, or infection. Small right effusion. Borderline enlarged cardiac silhouette. Electronically signed by: Peyton Boucher MD 05/03/2024 06:29 PM [facility] EXAMINATION: XR chest 2V CLINICAL INFORMATION: Dyspnea COMPARISON: None TECHNIQUE: 2 views of the chest FINDINGS: Bibasilar opacities may reflect aspiration, atelectasis, or infection. No pneumothorax. Small right effusion. Borderline enlarged cardiac silhouette. Right AICD device in appropriate position.
--- NOTE | 2024-05-03 16:56 | ECG_ITS ---
Test Reason : SOB Blood Pressure : / mmHG Vent. Rate : 075 BPM Atrial Rate : 075 BPM P-R Int : 212 ms QRS Dur : 118 ms QT Int : 424 ms P-R-T Axes : 040 -27 136 degrees QTc Int : 473 ms Sinus rhythm with 1st degree A-V block Low voltage QRS Possible Anterolateral infarct (cited on or before 19-APR-2024) Abnormal ECG When compared with ECG of 19-APR-2024 17:15, Premature ventricular complexes are no longer Present Questionable change in initial forces of Lateral leads Referred By: Generic ED Physician Electronically Signed By:NOLAN GONZALEZ MD
--- NOTE | 2024-05-03 17:01 | PC.NURSE ---
Pt biba from home for sob/dyspnea. Was recently admitted x1 week ago for COPD exacerbation. A/ox4, expiratory wheezing heard bilaterally, no crackles/rhonci heard, pt visibly sob, unable to speak in full sentences, s1 and s2 heard, HR- 70s on clinical services professional, NSR, abdomen tender on palpation, pt endorsing left lower abdominal pain/tenderness. Swelling noted to bilateral lower extremities, pt states hx of CHF and COPD. Per EMS, pt was 79% on RA. Placed on 2L simple face mask and brought up to high 90s. Ems also gave duo-neb en route, decrease in wheezing per EMS. PICC line noted to left upper bicep, no blood return, flushes easily. Plan for chest x-ray, EKG, and labs. Pt updated on plan of care, call sal within reach, all needs met at this time.
[2024-05-03] MEDS: Albuterol Sulfate 5 MG, Albuterol/Iprat 2.5/0.5MG 3 ML 3 ML INHALE (17:24)
[2024-05-03 17:39] LABS: MANUAL DIFF FLAG NO
[2024-05-03 17:46] LABS: Basophils Absolute Auto 0.1 X10*3/uL (0.0-0.2); Basophils Percent Auto 1.2 % (0-2); Eosinophils Absolute Auto 1.3 X10*3/uL (0.0-0.4); Eosinophils Percent Auto 11.6 % (0-4); Hematocrit 32.4 % (42.0-52.0); Hemoglobin 9.2 g/dl (14.0-18.0); Imm Gran Abs Auto 0.05 X10*3/uL (0.00-0.03); Imm Gran Pct Auto 0.5 % (0.0-0.4); Lymphocytes Absolute Auto 2.2 X10*3/uL (1.2-4.9); Lymphocytes Percent Auto 19.6 % (20-40); Mean Corpuscular HGB Conc 28.4 g/dl (31.0-36.0); Mean Corpuscular Hemoglobin 21.9 pg (27.0-33.0); Monocytes Absolute Auto 0.7 X10*3/uL (0.1-1.2); Neutrophils Absolute Auto 6.7 x10*3/uL (2.0-8.3); Neutrophils Percent Auto 61.1 % (45-73); Platelet Count 181 X10*3/uL (160-400); Red Blood Count 4.21 X10*6/uL (4.60-5.80); Red Cell Distribution Width 23.3 % (11.0-16.0)
[2024-05-03 17:54] LABS: Anion Gap 13 (12-20); Blood Urea Nitrogen 21 mg/dL (9-16); Calcium 8.6 mg/dL (8.4-10.2); Carbon Dioxide 31 mmol/L (22-29); Chloride 104 mmol/L (96-108); Creatinine Clr Calc Pharmacy 90.6; Estimated Glomerular Filt Rate > 60; Glucose Random 196 mg/dL (60-115); Potassium 3.9 mmol/L (3.3-5.1); Sodium 144 mmol/L (135-145)
[2024-05-03 18:02] LABS: B Type Natriuretic Peptide 3208 pg/mL (<100)
[2024-05-03] MEDS: iohexoL 350 MG/ML 100 ML INFUS..BTL IV (18:22)
--- NOTE | 2024-05-03 18:42 | ED.GENADULT ---
HPI - General Adult General Chief complaint: Dyspnea Stated complaint: SOB W/ HX OF COPD, 79% ON RA PER EMS Time Seen by Provider: 05/03/24 16:55 Source: patient Mode of arrival: EMS Limitations: no limitations History of Present Illness HPI narrative: This is a 58-year-old man with a past medical history of congestive heart failure, diabetic left foot infection on IV antibiotics, COPD not on home oxygen, PAF on Eliquis, CAD status post PCI, KIMANI on CPAP, insulin-dependent diabetes mellitus, mood disorder, peripheral arterial disease who presents by EMS for evaluation of dyspnea. EMS reports finding patient has 79% on room air with subsequent improvement on 2 liters/minute oxygen via nasal cannula and EMS reports also provided DuoNeb. 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 Patient states that he normally takes 20 mg of torsemide daily and states that increase this to 60 mg of torsemide. Patient reports taking 20 mg torsemide 3 times a day for the last 3 days. Patient reports ongoing dyspnea and difficulty lying flat. He reports noting swelling in his legs. He states no chest pain. He states no fevers, chills, cough or hemoptysis. He States yesterday noted some swelling in left side of his abdomen associated with pain. He states no trauma or falls. He states no nausea or vomiting. He states no GI or symptoms. Related Data Home Medications ?Medication ?Instructions ?Recorded ?Confirmed colchicine 0.6 mg tablet 0.6 mg PO DAILY 11/18/23 05/03/24 insulin glargine 100 unit/mL (3 17 unit subcut BEDTIME 11/18/23 05/03/24 mL) subcutaneous pen (Lantus Solostar U-100 Insulin) insulin lispro 100 unit/mL 7 unit subcut TIDAC 11/18/23 05/03/24 subcutaneous solution albuterol sulfate 2.5 mg/3 mL 2.5 mg inhalation Q6H PRN 03/23/24 05/03/24 (0.083 %) solution for nebulization Shortness Of Breath Or Wheezing apixaban 5 mg tablet (Eliquis) 5 mg PO BID 03/23/24 05/03/24 empagliflozin 10 mg tablet 10 mg PO DAILY 03/23/24 05/03/24 (Jardiance) fluticasone propionate 45 2 puff inhalation BID 03/23/24 05/03/24 mcg-salmeterol 21 mcg/actuation HFA inhaler (Advair HFA) sennosides 8.6 mg tablet (senna) 17.2 mg PO BEDTIME 03/23/24 05/03/24 torsemide 40 mg tablet 60 mg PO DAILY 05/03/24 05/03/24 Previous Rx's ?Medication ?Instructions ?Recorded pen needle, diabetic 31 gauge x #400 ea 10/12/2209/10 (BD Ultra-Fine Mini Pen Needle) diabetic shoes with custom insert #1 ea 12/31/23 for left shoe amiodarone 200 mg tablet 200 mg PO DAILY #30 tabs 01/26/24 aspirin 81 mg tablet,delayed 81 mg PO DAILY #90 tabs 01/26/24 release (Adult Low Dose Aspirin) melatonin 3 mg tablet 3 mg PO BEDTIME insomnia #90 tabs 01/26/24 omeprazole 20 mg capsule,delayed 20 mg PO DAILY@0630 90 days #90 01/26/24 release caps sertraline 25 mg tablet 25 mg PO DAILY #90 tabs 01/26/24 thiamine HCl (vitamin B1) 100 mg 100 mg PO DAILY #90 tabs 01/26/24 tablet blood-glucose sensor (FreeStyle #6 ea 02/29/24 Samantha 3 Sensor device) FreeStyle Lite Strips (blood sugar #300 ea 03/11/24 diagnostic) gabapentin 300 mg capsule 300 mg PO TID #270 caps 03/12/24 daptomycin 500 mg intravenous 600 mg IV Q24H 04/04/24 solution ertapenem 1 gram solution for 1 g IV DAILY #1 ea 04/04/24 injection hydralazine 10 mg tablet 10 mg PO TID #90 tabs 04/04/24 isosorbide dinitrate 5 mg tablet 5 mg PO 0800,1300,1800 #90 tabs 04/04/24 metoprolol succinate 25 mg 25 mg PO DAILY #30 tabs 04/04/24 tablet,extended release 24 hr sodium chloride 0.9 % (flush) 5 ml IVFLUSH TID #1 mL 04/04/24 (Normal Saline Flush 0.9 % injection syringe) Allergies Allergy/AdvReac Type Severity Reaction Status Date / Time No Known Allergies Allergy Verified 05/03/24 16:45 [No Known Allergies*] Review of Systems Review of Systems: ROS as per HPI COUNTS INCLUDE 234 BEDS AT THE [facility] Past Medical History Medical History Acute on chronic HFrEF (heart failure with reduced ejection fraction) History of osteomyelitis 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 Diverticulosis Tubular adenoma of colon (~2018) History of COVID-19 Nicotine dependence, cigarettes, uncomplicated Hypertensive retinopathy Microhematuria ICD (implantable cardioverter-defibrillator) in place COPD (chronic obstructive pulmonary disease) KIMANI (obstructive sleep apnea) Sleep apnea CAD (coronary artery disease) Paroxysmal atrial fibrillation (~2016) Surgical History History of amputation of left great toe History of cardiac cath History of ankle surgery History of implantable cardiac defibrillator (ICD) History of colonoscopy History of heart artery stent History of cardiac radiofrequency ablation History of cardioversion History of esophagogastroduodenoscopy History of umbilical hernia History of inguinal hernia Family History Family History Father Atherosclerosis Mother Cerebral aneurysm Maternal Grandmother Unknown family medical history Mother Cerebral hemorrhage Father Coronary artery disease Social History Social History Household Members: None Housing: House Are you a primary health care specialist to a significant other at home: No Do you presently have visiting nurse or other home services: Yes ([facility]) Alcohol intake: former Comment: refuses assistance OOB/high falls measures Patient Tobacco Use Status: Current everyday Tobacco user Tobacco use type: Cigarette Cigarette Packs Per Day: 1 Cigarettes Per Day: 2 Years Smoked: (current smoker - onset 14yo, 1ppd x 43yrs, 40pyh) e-Cigarette/Vaping Use: Never Used Second Hand Smoke Exposure: Yes Advance Directives Date on File: 07/09/21 service: No Current occupational status: unemployed and disabled Current occupation: rt handed Cognitive needs: No Hearing needs: No Vision needs: Yes Physical Exam ED Vital Signs: Vital Signs - 24 hr 05/03/24 16:40 05/03/24 17:31 05/03/24 17:56 Temperature 98.0 F 97.9 F Pulse Rate 74 74 78 Respiratory Rate 22 H 22 H 16 Blood Pressure 106/63 113/62 Pulse Oximetry 99 95 Oxygen Delivery Method Nasal Cannula Room Air 05/03/24 18:49 05/03/24 20:02 Temperature 97.8 F Pulse Rate 77 Respiratory Rate 16 Blood Pressure 110/56 L 99/53 L Pulse Oximetry 93 Oxygen Delivery Method Room Air BMI result Body Mass Index 34.9 Gen: NAD, AOx3 HEENT: NCAT, EOMI, normal conjunctiva CV: RRR, 2+ bilateral lower extremity pitting edema Pulm: Expiratory wheezes diffusely GI: Soft, NTND, no rebound, guarding or rigidity Neuro: Grossly non focal Medications Administered Generic Name Dose Route Start Last Admin Trade Name Freq PRN Reason Stop Dose Admin Acetaminophen 650 mg 05/03/24 21:54 05/04/24 03:37 Acetaminophen 325 Mg Tablet PO 650 mg Q6H PRN Administration Pain, Mild (Pain Scale 1-3), fever or headache Amiodarone HCl 200 mg 05/04/24 09:00 05/15/24 10:20 Amiodarone Hcl 200 Mg Tablet PO 200 mg DAILY MARILEE Administration Apixaban 5 mg 05/03/24 21:55 05/15/24 10:20 Apixaban 5 Mg Tablet PO 5 mg BID MARILEE Administration Aspirin 81 mg 05/04/24 09:00 05/15/24 10:20 Aspirin Enteric Coated 81 Mg Tablet.Dr PO 81 mg DAILY MARILEE Administration Colchicine 0.6 mg 05/04/24 09:00 05/15/24 10:20 Colchicine 0.6 Mg Tablet PO 0.6 mg DAILY MARILEE Administration Fluticasone/Vilanterol 1 puff 05/04/24 08:00 05/15/24 07:37 Fluticasone/Vilanterol 100/25 Blst.W.Dev INHALE Not Given RDAILY MARILEE Gabapentin 300 mg 05/04/24 02:25 05/15/24 14:26 Gabapentin 300 Mg Capsule PO 300 mg TID MARILEE Administration Daptomycin 600 mg/ Sodium 62 mls @ 100 mls/hr 05/08/24 13:00 05/15/24 14:07 Chloride IV Infused Q24H MARILEE Infusion Insulin Glargine 15 unit 05/04/24 21:00 05/14/24 21:45 Insulin Glargine,Hum.Rec.Anlog 100 Unit/Ml 10 Ml Vial SUBCUT 15 unit BEDTIME MARILEE Administration Insulin Human Lispro 0 unit 05/04/24 07:30 05/15/24 16:23 Insulin Lispro 100 Unit/Ml 3 Ml Vial SUBCUT Not Given QIDACHS [facility] Protocol Melatonin 6 mg 05/03/24 21:54 05/14/24 21:45 Melatonin 3 Mg Tablet PO 6 mg BEDTIME PRN Administration Insomnia Meropenem 1 gm 05/04/24 09:00 05/15/24 17:33 Meropenem 1 Gm Vial IVPUSH 1 gm Q8H MARILEE Administration Omeprazole 20 mg 05/04/24 06:30 05/15/24 06:08 Omeprazole 20 Mg Capsule.Dr PO 20 mg DAILY@0630 [facility] Administration Oxycodone HCl 5 mg 05/09/24 17:41 05/15/24 14:26 Oxycodone Hcl Immed Release 5 Mg Tablet PO 5 mg Q6H PRN Administration Pain, Severe (Pain Scale 7-10) Sertraline HCl 25 mg 05/04/24 09:00 05/15/24 10:26 Sertraline Hcl 25 Mg Tablet PO 25 mg DAILY [facility] Administration Sodium Chloride 3 ml 05/04/24 00:00 05/15/24 16:59 0.9 % Sodium Chloride Flush 3 Ml Syringe IVFLUSH Not Given QSHIFT [facility] Spironolactone 25 mg 05/09/24 18:00 05/15/24 17:33 Spironolactone 25 Mg Tablet PO 25 mg BID@0900,1800 [facility] Administration Protocol Thiamine HCl 100 mg 05/04/24 09:00 05/15/24 10:20 Thiamine Hcl 100 Mg Tablet PO 100 mg DAILY [facility] Administration Valsartan 20 mg 05/07/24 21:25 05/15/24 10:20 Valsartan 40 Mg Tablet PO 20 mg BID [facility] Administration Protocol Vitamin D 25 mcg 05/04/24 09:00 05/15/24 10:20 Cholecalciferol (Vitamin D3) 25 Mcg Tablet PO 25 mcg DAILY [facility] Administration Discontinued Medications Generic Name Dose Route Start Last Admin Trade Name Freq PRN Reason Stop Dose Admin Albuterol Sulfate 5 mg/ 0 mg 05/03/24 17:05 05/03/24 17:24 Albuterol/Ipratropium 3 ml INHALE 05/03/24 17:06 1 each ONCE ONE Administration Furosemide 40 mg 05/03/24 18:45 05/03/24 18:49 Furosemide 40 Mg/4 Ml Vial IVPUSH 05/03/24 18:46 40 mg ONCE ONE Administration Protocol Furosemide 80 mg 05/10/24 13:08 05/10/24 14:12 Furosemide 100 Mg/10 Ml Vial IVPUSH 05/10/24 13:09 80 mg ONCE ONE Administration Protocol Furosemide 80 mg 05/13/24 12:07 05/13/24 13:08 Furosemide 100 Mg/10 Ml Vial IVPUSH 05/13/24 12:08 80 mg ONCE ONE Administration Protocol Gabapentin 300 mg 05/04/24 03:03 05/04/24 03:37 Gabapentin 300 Mg Capsule PO 05/04/24 03:04 300 mg ONCE ONE Administration Ferric Sodium Gluconate 110 mls @ 100 mls/hr 05/04/24 09:00 05/06/24 11:30 Complex 125 mg/ Sodium IV 05/06/24 10:05 Infused Chloride DAILY MARILEE Infusion Furosemide 200 mg/ Sodium 100 mls @ 5 mls/hr 05/03/24 22:00 05/15/24 19:10 Chloride IVCONT Infused .Q20H MARILEE Infusion 10 MG/HR Albumin Human 100 mls @ 100 mls/hr 05/03/24 22:24 05/03/24 23:50 Kedbumin 25 % IV 05/03/24 23:23 Infused ONCE ONE Infusion Daptomycin 600 mg/ Sodium 62 mls @ 100 mls/hr 05/04/24 09:00 05/07/24 13:40 Chloride IV Infused Q24H MARILEE Infusion Iohexol 100 ml 05/03/24 18:22 05/03/24 18:22 Iohexol 350 Mg/Ml 100 Ml Infus..Btl IV 05/03/24 18:23 85 ml ONCE ONE Administration Isosorbide Dinitrate 5 mg 05/04/24 08:00 05/09/24 09:06 Isosorbide Dinitrate 5 Mg Tablet PO 5 mg 0800,1300,1800 MARILEE Administration Protocol Metolazone 5 mg 05/10/24 09:55 05/10/24 12:32 Metolazone 5 Mg Tablet PO 05/10/24 09:56 5 mg ONCE ONE Administration Metolazone 5 mg 05/12/24 10:53 05/12/24 13:08 Metolazone 5 Mg Tablet PO 05/12/24 10:54 5 mg ONCE ONE Administration Metoprolol Succinate 25 mg 05/04/24 09:00 05/09/24 09:06 Metoprolol Succinate Er 25 Mg Tab.Er.24h PO 25 mg DAILY MARILEE Administration Protocol Morphine Sulfate 2 mg 05/04/24 15:57 05/09/24 11:07 Morphine Sulfate 2 Mg/Ml Cartridge IVPUSH 2 mg Q4H PRN Administration Pain, Severe (Pain Scale 7-10) Protocol Oxycodone HCl 5 mg 05/04/24 15:28 05/09/24 09:05 Oxycodone Hcl Immed Release 5 Mg Tablet PO 5 mg Q6H PRN Administration Pain, Moderate(Pain Scale 4-6) Spironolactone 25 mg 05/08/24 13:30 05/09/24 09:07 Spironolactone 25 Mg Tablet PO 25 mg DAILY MARILEE Administration Protocol Tramadol HCl 50 mg 05/10/24 20:05 05/14/24 21:44 Tramadol Hcl 50 Mg Tablet PO 50 mg Q4H PRN Administration Pain, Moderate(Pain Scale 4-6) Valsartan 20 mg 05/04/24 21:00 05/06/24 08:17 Valsartan 40 Mg Tablet PO 20 mg BID MARILEE Administration Protocol Valsartan 40 mg 05/06/24 21:00 05/07/24 20:50 Valsartan 40 Mg Tablet PO Not Given BID [facility] Protocol Medical Decision Making Medical Decision Making [facility] Narrative: Differential diagnosis includes, but is not limited to acute decompensated congestive heart failure, COPD exacerbation. Low suspicion for pneumonia given lack of fever or productive cough. Patient is afebrile and hemodynamically stable. Patient is provided IV diuresis. Case and management is discussed with the admitting hospitalist and patient is admitted for further workup and management in stable improved condition. Admission/Observation Consideration of admission/observation: Escalation of care including admission/observation considered Lab Data [facility] Lab Attestation statement: I reviewed the patient's lab results. I independently reviewed and interpreted the patient's labs which demonstrate stable anemia with hemoglobin 9.2, creatinine 1.58 and BNP 3208. 05/12/24 06:12 05/15/24 06:09 Labs: Lab Results 11/06/24 Range/Units 17:34 WBC 11.0 H (4.8-10.8) X10*3/uL RBC 4.21 L (4.60-5.80) X10*6/uL Hgb 9.2 L (14.0-18.0) g/dl Hct 32.4 L (42.0-52.0) % MCV 77.0 L (80.0-98.0) fL MCH 21.9 L (27.0-33.0) pg MCHC 28.4 L (31.0-36.0) g/dl RDW 23.3 H (11.0-16.0) % Plt Count 181 D (160-400) X10*3/uL MPV 10.0 (9.4-12.4) fL Immature Gran % (Auto) 0.5 H (0.0-0.4) % Neut % (Auto) 61.1 (45-73) % Lymph % (Auto) 19.6 L (20-40) % Lane % (Auto) 6.0 (2-11) % Eos % (Auto) 11.6 H (0-4) % Baso % (Auto) 1.2 (0-2) % Lymph # (Auto) 2.2 (1.2-4.9) X10*3/uL Lane # (Auto) 0.7 (0.1-1.2) X10*3/uL Eos # (Auto) 1.3 H (0.0-0.4) X10*3/uL Baso # (Auto) 0.1 (0.0-0.2) X10*3/uL Abs Immat Gran (auto) 0.05 H (0.00-0.03) X10*3/uL Absolute Neuts (auto) 6.7 (2.0-8.3) x10*3/uL Absolute Nucleated RBC 0.000 (0.0-0.012) X10*3/uL Nucleated RBC % (auto) 0.0 (0.0-0.2) /100WBC Sodium 144 (135-145) mmol/L Potassium 3.9 (3.3-5.1) mmol/L Chloride 104 (96-108) mmol/L Carbon Dioxide 31 H (22-29) mmol/L Anion Gap 13 (12-20) BUN 21 H (9-16) mg/dL Creatinine 1.11 (0.5-1.4) mg/dL Estim Creat Clear Calc 90.6 Estimated GFR > 60 Random Glucose 196 H (60-115) mg/dL Calcium 8.6 (8.4-10.2) mg/dL Total Bilirubin 0.5 (0.0-1.0) mg/dL Direct Bilirubin 0.3 (0.0-0.5) mg/dL AST 25 (5-37) U/L ALT 13 (0-40) U/L Alkaline Phosphatase 103 (39-117) U/L B-Natriuretic Peptide 3208 H (<100) pg/mL Total Protein 6.2 L (6.5-8.0) g/dL Albumin 2.9 L (3.5-5.0) g/dL Independent Interpretation I performed an independent interpretation of an: EKG Interpretation: I independently reviewed and interpreted the patient's EKG, which demonstrates sinus rhythm at 75 beats per minute, SD 212, QRS 118, QTC 473, no STEMI, first-degree AV block Radiology Impression Discussion of test interpretation with radiology: I have reviewed the radiologist's reading. Radiologist Impression: XR/XR chest 2V IMPRESSION: Bibasilar opacities may reflect aspiration, atelectasis, or infection. Small right effusion. Borderline enlarged cardiac silhouette. Electronically signed by: Peyton Boucher MD 05/03/2024 06:29 PM [facility] Dictated By: Peyton Boucher MD Signed By: <Electronically signed by Peyton Boucher MD in OV> 05/03/24 1829 Discharge Plan Discharge Clinical Impression: Diabetic infection of left foot, Acute kidney injury, CHF (congestive heart failure) Patient Disposition: Admitted As Inpatient Interventions: Admission Worksheet (ED) Last Done: 05/04/24 07:39 Discharge Date/Time: 05/04/24 08:23
[2024-05-03] MEDS: Furosemide 40 MG/4 ML VIAL IVPUSH (18:49)
--- NOTE | 2024-05-03 19:28 | PC.NURSE ---
Pt sustaining 99% on 1L nasal cannula. Taken off O2 at this time for room air sat from 93-95%
--- NOTE | 2024-05-03 21:51 | PHA.MEDREC ---
Pharmacy Consult ? Medication Reconciliation Pharmacy has completed the medication reconciliation. Patient was recently discharged on 04/23/24. Spoke to patient and he confirmed that nothing has changed since then, except that he now takes torsemide 60 mg daily. He is still taking eliquis, daptomycin IV and ertapenem IV (daily infusion @1900). He still uses lantus 17 units at bedtime and insulin lispro 7 units tidac.
--- NOTE | 2024-05-03 21:59 | P.HPHOSP_ITS ---
History of Present Illness Date of Service: 05/03/24 Chief Complaint: Fluid overload, ALLEN A 58-year-old male with pertinent history of sCHF, diabetic foot infection on IV antibiotics, COPD, PAF on Eliquis, CAD status post PCI, KIMANI on CPAP, insulin- dependent diabetes mellitus, mood disorder, PAD among others who presents with Increase fluids and Dyspnea. The patient was recently discharged from hospital on 04/23 for CHF exacerbation with increment of home Torsemide. Jardiance was not stopped at that time. He was also noted to have Anemia and received IV replacement. Today he reports increase fluids in his lower extremities and back. ALLEN with short distances. reports making fair amount of urine after cardiology asked him to increase his Torsemide to 60 mg. No chest pain, palpitations, SOB, nausea, vomiting, diarrhea or urinary symptoms. Found to have elevated BNP with CXR showing basal atelactasis and small effusion. Admitted for further treatment. Review of Systems 2 Review of Systems: No fever, chills or weakness No chest pain, palpitation having shortness of breath with no significant coughing No abdominal pain, nausea or vomiting No urinary symptoms Increase swelling in LE and back [facility] Medical History Acute on chronic HFrEF (heart failure with reduced ejection fraction) History of osteomyelitis 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 Diverticulosis Tubular adenoma of colon (~2018) History of COVID-19 Nicotine dependence, cigarettes, uncomplicated Hypertensive retinopathy Microhematuria ICD (implantable cardioverter-defibrillator) in place COPD (chronic obstructive pulmonary disease) KIMANI (obstructive sleep apnea) Sleep apnea CAD (coronary artery disease) Paroxysmal atrial fibrillation (~2017) Family History Father Atherosclerosis Mother Cerebral aneurysm Maternal Grandmother Unknown family medical history Mother Cerebral hemorrhage Father Coronary artery disease Surgical History History of amputation of left great toe History of cardiac cath History of ankle surgery History of implantable cardiac defibrillator (ICD) History of colonoscopy History of heart artery stent History of cardiac radiofrequency ablation History of cardioversion History of esophagogastroduodenoscopy History of umbilical hernia History of inguinal hernia Social History Household Members: None Housing: House Are you a primary memory care director to a significant other at home: No Do you presently have visiting nurse or other home services: Yes (Wound nurse) Alcohol intake: former Comment: sitter at bedside Patient Tobacco Use Status: Current everyday Tobacco user Tobacco use type: Cigarette Cigarette Packs Per Day: 1 Cigarettes Per Day: 2 Years Smoked: (current smoker - onset 14yo, 1ppd x 43yrs, 40pyh) Smoked in Last 30 Days: No e-Cigarette/Vaping Use: Never Used Second Hand Smoke Exposure: Yes Use of substances other than those prescribed or required for medical reasons: No Advance Directives: Yes Advance Directives on File: Yes Advance Directives Date on File: 07/09/21 Do you have a plan to hurt others: No Plan service: No Current occupational status: unemployed and disabled Current occupation: rt handed Cognitive needs: No Hearing needs: No Vision needs: Yes Meds Allergies Allergy/AdvReac Type Severity Reaction Status Date / Time No Known Allergies Allergy Verified 05/03/24 16:45 [No Known Allergies*] Active Medications: Current Medications Albuterol Sulfate (Albuterol Sulfate (0.083%) 2.5 Mg/3 Ml Vial.Neb) 2.5 mg INHALE Q6H PRN PRN Reason: Shortness Of Breath Or Wheezing Amiodarone HCl (Amiodarone Hcl 200 Mg Tablet) 200 mg PO DAILY [facility] Apixaban (Apixaban 5 Mg Tablet) 5 mg PO BID [facility] Aspirin (Aspirin Enteric Coated 81 Mg Tablet.Dr) 81 mg PO DAILY [facility] Colchicine (Colchicine 0.6 Mg Tablet) 0.6 mg PO DAILY [facility] Empagliflozin (Empagliflozin 10 Mg Tablet) 10 mg PO DAILY [facility] Fluticasone/Vilanterol (Fluticasone/Vilanterol 100/25 Blst.W.Dev) 1 puff INHALE RDAILY [facility] Gabapentin (Gabapentin 300 Mg Capsule) 300 mg PO TID [facility] Insulin Glargine (Insulin Glargine,Hum.Rec.Anlog 100 Unit/Ml 10 Ml Vial) 15 unit SUBCUT BEDTIME [facility] Isosorbide Dinitrate (Isosorbide Dinitrate 5 Mg Tablet) 5 mg PO 0800,1300,1800 [facility]; Protocol Metoprolol Succinate (Metoprolol Succinate Er 25 Mg Tab.Er.24h) 25 mg PO DAILY [facility]; Protocol Omeprazole (Omeprazole 20 Mg Capsule.Dr) 20 mg PO DAILY@0630 [facility] Sertraline HCl (Sertraline Hcl 25 Mg Tablet) 25 mg PO DAILY [facility] Thiamine HCl (Thiamine Hcl 100 Mg Tablet) 100 mg PO DAILY [facility] Home Medications ?Medication ?Instructions ?Recorded ?Confirmed ?Last Taken ?Type colchicine 0.6 mg tablet 0.6 mg PO DAILY 11/18/23 05/03/24 05/03/24 History insulin glargine 100 unit/mL (3 17 unit subcut BEDTIME 11/18/23 05/03/24 05/02/24 History mL) subcutaneous pen (Lantus Solostar U-100 Insulin) insulin lispro 100 unit/mL 7 unit subcut TIDAC 11/18/23 05/03/24 05/03/24 History subcutaneous solution albuterol sulfate 2.5 mg/3 mL 2.5 mg inhalation Q6H PRN 03/23/24 05/03/24 Unknown History (0.083 %) solution for nebulization Shortness Of Breath Or Wheezing apixaban 5 mg tablet (Eliquis) 5 mg PO BID 03/23/24 05/03/24 05/03/24 History empagliflozin 10 mg tablet 10 mg PO DAILY 03/23/24 05/03/24 05/03/24 History (Jardiance) fluticasone propionate 45 2 puff inhalation BID 03/23/24 05/03/24 05/03/24 History mcg-salmeterol 21 mcg/actuation HFA inhaler (Advair HFA) sennosides 8.6 mg tablet (senna) 17.2 mg PO BEDTIME 03/23/24 05/03/24 05/02/24 History torsemide 40 mg tablet 60 mg PO DAILY 05/03/24 05/03/24 05/03/24 History Physical Exam 2 Vital Signs and Narrative: Vital Signs: Last Vital Signs Temp 97.8 F 05/03/24 20:02 Pulse 77 05/03/24 20:02 Resp 16 05/03/24 20:02 BP 99/53 L 05/03/24 20:02 Pulse Ox 93 05/03/24 20:02 O2 Del Method Room Air 05/03/24 20:02 Oxygen Flow Rate 2 05/03/24 16:40 BMI result Body Mass Index 34.9 Const: Other: Constitutional : Awake, interactive, not in distress Neck : Normal inspection, Supple Cardiovascular : RRR, elevated JVP, +3 lower extremity edema bilaterally more on left side Respiratory : good bilateral air entry ut decreased at bases, fine basal crackles, no wheezes or rhonchi Gastrointestinal: soft, lax, Normal bowel sounds, Non tender, Abdominal wall stretch jama with Anasarca Skin : Warm, Dry, LLE wounds looks clean but exposed deeply specially the palmar one, covered with dressing. Neurological : Alert & oriented x3, No focal deficit Results Labs 05/03/24 17:34 05/03/24 17:34 Labs: Laboratory Results - last 24 hr 05/03/24 17:34 MCV 77.0 L MCH 21.9 L MCHC 28.4 L RDW 23.3 H Plt Count 181 D MPV 10.0 Immature Gran % (Auto) 0.5 H Neut % (Auto) 61.1 Lymph % (Auto) 19.6 L Mcleod % (Auto) 6.0 Eos % (Auto) 11.6 H Baso % (Auto) 1.2 Lymph # (Auto) 2.2 Mcleod # (Auto) 0.7 Eos # (Auto) 1.3 H Baso # (Auto) 0.1 Abs Immat Gran (auto) 0.05 H Absolute Neuts (auto) 6.7 Absolute Nucleated RBC 0.000 Nucleated RBC % (auto) 0.0 Anion Gap 13 Estim Creat Clear Calc 90.6 Estimated GFR > 60 Random Glucose 196 H Calcium 8.6 B-Natriuretic Peptide 3208 H Imaging Radiologist's Impressions: Impressions Chest X-Ray 05/03/24 17:15 IMPRESSION: Bibasilar opacities may reflect aspiration, atelectasis, or infection. Small right effusion. Borderline enlarged cardiac silhouette. Electronically signed by: Peyton Boucher MD 05/03/2024 06:29 PM [facility] Abdomen/Pelvis CT 05/03/24 18:23 IMPRESSION: 1. Mild simple ascites, increased when compared to the prior CT. No organized fluid collection or abscess formation. 2. Diverticulosis without evidence of acute diverticulitis. No small or large bowel obstruction. Mild stool burden throughout the colon. Unremarkable appendix. 3. Circumferential subcutaneous edema, increased when compared to the prior CT. No abdominal wall mass or organized fluid collection. 4. Trace bibasilar pleural effusions with redemonstration of left pleural calcifications. Increasing right basilar atelectasis versus early infiltrates. Fleischner guidelines were followed. Electronically signed by: Shin Siddiqui MD 05/03/2024 09:00 PM [facility] Workstation: [id number] Assessment and Plan (1) RIC (iron deficiency anemia): Status: Acute (2) Diabetic infection of left foot: Status: Acute (3) Acute on chronic HFrEF (heart failure with reduced ejection fraction): Status: Acute Plan A 58-year-old male with pertinent history of sCHF, diabetic foot infection on IV antibiotics, COPD, PAF on Eliquis, CAD status post PCI, KIMANI on CPAP, insulin- dependent diabetes mellitus, mood disorder, PAD among others who presents with Increase fluids and Dyspnea. # Anasarca 2/2 Acute on chronic congestive heart failure with reduced ejection fraction with decrease Albumin Start IV diuresis with Lasix drip Strict I's and O's. Low-salt diet, increase Protein intake Environmental Conservation Officer eval DC Jardiance per cardiology rec last admission continue beta-lion Cardiology consult keep legs elevated # acute on chronic Iron def. anemia No evidence of bleeding , Low iron stores prev. negative occult last admission Start IV Iron, DC on PO supplement will need outpatient GI follow up for further eval # Insulin-dependent diabetes mellitus with hyperglycemia basal plus insulin regimen # Diabetic foot infection with OM on IV Abx Wound care following On IV ertapenem and daptomycin until 05/14/2024 (change to Meropenem while inpt) Vascular eval appreciated, continue wound care, no surgical intervention needed at this point # Peripheral arterial disease Previous arterial Dopplers showing delayed arterial upstroke. Outpatient follow-up with Dr. Leal # COPD, Continue home inhalers # KIMANI: CPAP at bedtime # CAD: On aspirin. Not on statin # Paroxysmal atrial fibrillation: On amiodarone, beta-lion and Eliquis # Mood disorder: Continue home mood stabilizers DVT prophylaxis: Eliquis Full code The patient will require 2 overnight hospital stay for IV diuresis, close monitoring of volume status which is not possible in a lesser acute setting pending cardiology follow up Quality Stroke Does the patient have a stroke diagnosis?: No VTE Prior VTE?: No VTE Risk Level:: Medical - moderate - high VTE Device Contraindication: Treatment Not Indicated VTE Drug Contraindication: N/A - Med Ordered
[2024-05-03 22:05] LABS: Alanine Aminotransferase 13 U/L (0-40); Albumin Level 2.9 g/dL (3.5-5.0); Alkaline Phosphatase 103 U/L (39-117); Aspartate Amino Transferase 25 U/L (5-37); Bilirubin Direct 0.3 mg/dL (0.0-0.5); Bilirubin Total 0.5 mg/dL (0.0-1.0); Total Protein 6.2 g/dL (6.5-8.0)
--- NOTE | 2024-05-03 22:17 | PC.NURSE ---
MD Ema Bill messaged via tiger text d/t pt low blood pressure. Verifying if he would still like me to start the lasix drip.
[2024-05-03] MEDS: Albumin Human 25 % 100 ML IV (22:47)
[2024-05-03] MEDS: Apixaban 5 MG TABLET PO (22:50)
--- NOTE | 2024-05-03 22:58 | PC.NURSE ---
MD started pt on Albumin IV prior to Lasix drip.
[2024-05-03] MEDS: Furosemide 200 MG in 0.9 % Sodium Chloride 80 ML IVCONT (23:44)
[2024-05-04] VITALS (11 sets, daily range): BP systolic 92–126; BP diastolic 28–75; PULSE 62–78; RESP 14–20; TEMP 36.2–37.1; O2SAT 90–99; BMI 35.7
[2024-05-04] MEDS: Melatonin 3 MG TABLET 6 MG PO (03:37)
[2024-05-04] MEDS: Gabapentin 300 MG CAPSULE PO ×4 (03:37→21:00)
[2024-05-04] MEDS: Acetaminophen 325 MG TABLET 650 MG PO (03:37)
--- NOTE | 2024-05-04 03:51 | PC.NURSE ---
pt wearing home CPAP
[2024-05-04 05:02] LABS: Anion Gap 15 (12-20); Blood Urea Nitrogen 19 mg/dL (9-16); Calcium 8.5 mg/dL (8.4-10.2); Carbon Dioxide 31 mmol/L (22-29); Chloride 103 mmol/L (96-108); Creatinine Clr Calc Pharmacy 95.8; Estimated Glomerular Filt Rate > 60; Glucose Random 190 mg/dL (60-115); Potassium 3.8 mmol/L (3.3-5.1); Sodium 145 mmol/L (135-145)
[2024-05-04 05:07] LABS: B Type Natriuretic Peptide 2976 pg/mL (<100)
[2024-05-04] MEDS: Omeprazole 20 MG CAPSULE.DR PO (06:40)
[2024-05-04 07:29] LABS: Glucose, Whole Blood 172 mg/dL (60-115)
[2024-05-04] MEDS: Insulin Lispro 100 UNIT/ML 3 ML VIAL SUBCUT ×3 (07:30→17:08)
--- NOTE | 2024-05-04 09:42 | MHC.CM.PN ---
CM met with Patient and his Sister at bedside and addressed IMM with him; original was given to Patient and a copy has been placed on the chart. Patient lives alone in a house and he uses CPAP and a cane to assist with mobility. 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, [facility] for IVABT, and home/resume said services is the goal. CM has initiated and will follow for dc planning. PCP is Dr. Phi Crisostomo and HCP is Ex-Girlfriend/Chitra. Patient's Sister will transport to home.
[2024-05-04] MEDS: Amiodarone HCL 200 MG TABLET PO (10:21)
[2024-05-04] MEDS: Colchicine 0.6 MG TABLET PO (10:21)
[2024-05-04] MEDS: Apixaban 5 MG TABLET PO ×2 (10:21→21:00)
[2024-05-04] MEDS: Thiamine HCL 100 MG TABLET PO (10:21)
[2024-05-04] MEDS: Aspirin Enteric Coated 81 MG TABLET.DR PO (10:21)
[2024-05-04] MEDS: Meropenem 1 GM VIAL IVPUSH ×2 (10:21→17:08)
[2024-05-04] MEDS: Sertraline HCL 25 MG TABLET PO (10:22)
[2024-05-04] MEDS: Cholecalciferol (Vitamin D3) 25 MCG TABLET PO (10:22)
[2024-05-04] MEDS: Metoprolol Succinate ER 25 MG TAB.ER.24H PO (10:27)
[2024-05-04] MEDS: Isosorbide Dinitrate 5 MG TABLET PO ×3 (10:28→18:28)
[2024-05-04] MEDS: DAPTOmycin 600 MG in 0.9 % Sodium Chloride 50 ML 100 MG IV (10:30)
--- NOTE | 2024-05-04 10:49 | MHC.CLN ---
RE: CONSULT RECOMMEND 2200DM 2GM NA DIET R/T HX DM AND CHF RECOMMEND D/C ENSURE TID RECOMMEND STARTING ENSURE MAX BID TO PROVIDE 300KCALS, 60G PROTEIN, 528ML FLUID FOR FLUID RESTRICITON MONITOR PO INTAKE AND ENCOURAGE SUPPLEMENT STRICT I&OS
[2024-05-04 11:09] LABS: Glucose, Whole Blood 155 mg/dL (60-115)
--- NOTE | 2024-05-04 11:13 | P.CONCA_ITS ---
History of Present Illness History of Present Illness Date of Service: 05/04/24 Requesting physician: Pepper Dodd Consult reason: congestive heart failure Chief complaint: hypoxia, dyspnea Narrative: I was consulted to see Jr in cardiology consultation today for management of decompensated congestive heart failure. Jr has significant advanced cardiovascular issues as well as multiple other comorbidities causing a very complicated management plan. In the last month and half he has been admitted for 3 times with various issues but last time admitted in late March with decompensated congestive heart was discharged home and came back. Patient notice weight gain at home wait for couple of days to increase his torsemide and by the time he then got progressive short of breath and leg swelling. Came to the hospital with decompensated congestive heart failure with BNP of 3200. His discharge BNP on 04/23 was 2720. It seems like he was under diuresis at that point time. He comes and he is noted to be in decompensated congestive heart failure started on Lasix drip. He has diuresed well in his put out about-1900 cc so far. Hemodynamically stable but remained short of breath. He denies any chest pain. Remains in his normal sinus rhythm. He continues to have infection for his leg with diabetic foot infection. Continues to remain anemic with iron- deficiency. Patient has no kidney issues currently. Review of Systems 2 Constitutional: Constitutional: Reports lethargy Cardiovascular: Cardiovascular: Denies chest pain, Denies rapid heart rate, Reports leg edema, Denies palpitations, Reports dyspnea on exertion and Reports orthopnea Respiratory: Respiratory: Reports no additional respiratory complaints and Reports dyspnea on exertion Gastrointestinal: Gastrointestinal: Reports no additional gastrointestinal complaints Integumentary/Breasts: Skin/Breast: Reports system reviewed and no additional complaints, except as docu Endocrine: Endocrine: Denies palpitations [facility] Past Medical History Medical History Acute on chronic HFrEF (heart failure with reduced ejection fraction) History of osteomyelitis 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 Diverticulosis Tubular adenoma of colon (~2017) History of COVID-19 Nicotine dependence, cigarettes, uncomplicated Hypertensive retinopathy Microhematuria ICD (implantable cardioverter-defibrillator) in place COPD (chronic obstructive pulmonary disease) KIMANI (obstructive sleep apnea) Sleep apnea CAD (coronary artery disease) Paroxysmal atrial fibrillation (~2016) Family History Family History Father Atherosclerosis Mother Cerebral aneurysm Maternal Grandmother Unknown family medical history Mother Cerebral hemorrhage Father Coronary artery disease Surgical History Surgical History History of amputation of left great toe History of cardiac cath History of ankle surgery History of implantable cardiac defibrillator (ICD) History of colonoscopy History of heart artery stent History of cardiac radiofrequency ablation History of cardioversion History of esophagogastroduodenoscopy History of umbilical hernia History of inguinal hernia Social History Social History Household Members: None Housing: House Are you a primary care tech to a significant other at home: No Do you presently have visiting nurse or other home services: Yes ([facility]) Alcohol intake: former Comment: sitter at bedside Patient Tobacco Use Status: Current everyday Tobacco user Tobacco use type: Cigarette Cigarette Packs Per Day: 1 Cigarettes Per Day: 2 Years Smoked: (current smoker - onset 14yo, 1ppd x 43yrs, 40pyh) e-Cigarette/Vaping Use: Never Used Second Hand Smoke Exposure: Yes Advance Directives Date on File: 07/09/21 service: No Current occupational status: unemployed and disabled Current occupation: rt handed Cognitive needs: No Hearing needs: No Vision needs: Yes Meds Allergies Allergy/AdvReac Type Severity Reaction Status Date / Time No Known Allergies Allergy Verified 05/03/24 16:45 [No Known Allergies*] Active Medications: Current Medications Acetaminophen (Acetaminophen 325 Mg Tablet) 650 mg PO Q6H PRN PRN Reason: Pain, Mild (Pain Scale 1-3), fever or headache Last Admin: 05/04/24 03:37 Dose: 650 mg Albuterol Sulfate (Albuterol Sulfate (0.083%) 2.5 Mg/3 Ml Vial.Neb) 2.5 mg INHALE Q6H PRN PRN Reason: Shortness Of Breath Or Wheezing Amiodarone HCl (Amiodarone Hcl 200 Mg Tablet) 200 mg PO DAILY [facility] Last Admin: 05/04/24 10:21 Dose: 200 mg Apixaban (Apixaban 5 Mg Tablet) 5 mg PO BID [facility] Last Admin: 05/04/24 10:21 Dose: 5 mg Aspirin (Aspirin Enteric Coated 81 Mg Tablet.Dr) 81 mg PO DAILY [facility] Last Admin: 05/04/24 10:21 Dose: 81 mg Calcium Carbonate (Calcium Carbonate 750 Mg Tab.Chew) 750 mg PO Q4H PRN PRN Reason: Heartburn Colchicine (Colchicine 0.6 Mg Tablet) 0.6 mg PO DAILY [facility] Last Admin: 05/04/24 10:21 Dose: 0.6 mg Fluticasone/Vilanterol (Fluticasone/Vilanterol 100/25 Blst.W.Dev) 1 puff INHALE RDAILY [facility] Last Admin: 05/04/24 08:32 Dose: Not Given Gabapentin (Gabapentin 300 Mg Capsule) 300 mg PO TID [facility] Last Admin: 05/04/24 10:22 Dose: 300 mg Ferric Sodium Gluconate Complex 125 mg/ Sodium Chloride 110 mls @ 100 mls/hr IV DAILY [facility] Stop: 05/06/24 10:05 Furosemide 200 mg/ Sodium (Chloride) 100 mls @ 2.5 mls/hr IVCONT .Q24H [facility] Last Admin: 05/03/24 23:44 Dose: 5 mg/hr, 2.5 mls/hr Daptomycin 600 mg/ Sodium (Chloride) 62 mls @ 100 mls/hr IV Q24H [facility] Last Admin: 05/04/24 10:30 Dose: 100 mls/hr Insulin Glargine (Insulin Glargine,Hum.Rec.Anlog 100 Unit/Ml 10 Ml Vial) 15 unit SUBCUT BEDTIME [facility] Insulin Human Lispro (Insulin Lispro 100 Unit/Ml 3 Ml Vial) 0 unit SUBCUT QIDACHS [facility]; Protocol Last Admin: 05/04/24 07:30 Dose: 2 unit Isosorbide Dinitrate (Isosorbide Dinitrate 5 Mg Tablet) 5 mg PO 0800,1300,1800 [facility]; Protocol Last Admin: 05/04/24 10:28 Dose: 5 mg Magnesium Hydroxide (Milk Of Magnesia 30 Ml Oral.Susp) 30 ml PO DAILY PRN PRN Reason: Constipation Melatonin (Melatonin 3 Mg Tablet) 6 mg PO BEDTIME PRN PRN Reason: Insomnia Last Admin: 05/04/24 03:37 Dose: 6 mg Meropenem (Meropenem 1 Gm Vial) 1 gm IVPUSH Q8H [facility] Last Admin: 05/04/24 10:21 Dose: 1 gm Metoprolol Succinate (Metoprolol Succinate Er 25 Mg Tab.Er.24h) 25 mg PO DAILY [facility]; Protocol Last Admin: 05/04/24 10:27 Dose: 25 mg Omeprazole (Omeprazole 20 Mg Capsule.Dr) 20 mg PO DAILY@0630 [facility] Last Admin: 05/04/24 06:40 Dose: 20 mg Ondansetron HCl (Ondansetron Hcl 4 Mg/2 Ml Vial) 4 mg IVPUSH Q8H PRN PRN Reason: Nausea and Vomiting Sertraline HCl (Sertraline Hcl 25 Mg Tablet) 25 mg PO DAILY [facility] Last Admin: 05/04/24 10:22 Dose: 25 mg Sodium Chloride (0.9 % Sodium Chloride Flush 3 Ml Syringe) 3 ml IVFLUSH QSHIFT [facility] Last Admin: 05/04/24 07:30 Dose: Not Given Thiamine HCl (Thiamine Hcl 100 Mg Tablet) 100 mg PO DAILY [facility] Last Admin: 05/04/24 10:21 Dose: 100 mg Valsartan (Valsartan 40 Mg Tablet) 20 mg PO BID [facility]; Protocol Vitamin D (Cholecalciferol (Vitamin D3) 25 Mcg Tablet) 25 mcg PO DAILY [facility] Last Admin: 05/04/24 10:22 Dose: 25 mcg Home Medications ?Medication ?Instructions ?Recorded ?Confirmed ?Last Taken ?Type colchicine 0.6 mg tablet 0.6 mg PO DAILY 11/18/23 05/03/24 05/03/24 History insulin glargine 100 unit/mL (3 17 unit subcut BEDTIME 11/18/23 05/03/24 05/02/24 History mL) subcutaneous pen (Lantus Solostar U-100 Insulin) insulin lispro 100 unit/mL 7 unit subcut TIDAC 11/18/23 05/03/24 05/03/24 History subcutaneous solution albuterol sulfate 2.5 mg/3 mL 2.5 mg inhalation Q6H PRN 03/23/24 05/03/24 Unknown History (0.083 %) solution for nebulization Shortness Of Breath Or Wheezing apixaban 5 mg tablet (Eliquis) 5 mg PO BID 03/23/24 05/03/24 05/03/24 History empagliflozin 10 mg tablet 10 mg PO DAILY 03/23/24 05/03/24 05/03/24 History (Jardiance) fluticasone propionate 45 2 puff inhalation BID 03/23/24 05/03/24 05/03/24 History mcg-salmeterol 21 mcg/actuation HFA inhaler (Advair HFA) sennosides 8.6 mg tablet (senna) 17.2 mg PO BEDTIME 03/23/24 05/03/24 05/02/24 History torsemide 40 mg tablet 60 mg PO DAILY 05/03/24 05/03/24 05/03/24 History Physical Exam 2 Vital Signs: Vital Signs: Last Vital Signs Temp 98.3 F 05/04/24 11:03 Pulse 68 05/04/24 11:03 Resp 18 05/04/24 11:03 BP 113/74 05/04/24 10:27 Pulse Ox 98 05/04/24 11:03 O2 Del Method Room Air 05/04/24 11:03 O2 Flow Rate 3 05/04/24 09:49 Oxygen Flow Rate 2 05/03/24 16:40 BMI result Body Mass Index 35.7 Const: General: cooperative, alert, awake and in distress moderate and respiratory Nutritional Appearance: obese Orientation/consciousness: p atient oriented x3 Limitations: no limitations HEENT: Head: Yes normocephalic and Yes atraumatic Neck: Neck: Yes trachea midline, Yes supple and Yes JVD Resp: Auscultation: rales and diminished lung sounds Cardio: Jugular venous distension: JVD Palpation: abnormal PMI displaced PMI Rate: regular rate Rhythm: regular rhythm Heart sounds: S1 normal heart sound present, S2 normal heart sound present, no click, no gallops, no murmurs and no rubs GI: Inspection: Yes distended Auscultation: normal bowel sounds Skin: General skin exam: no rashes or lesions noted Neuro: General: patient oriented x3 and no focal motor deficits Extrem: General: No clubbing, No cyanosis and Yes edema Objective Labs and Meds 05/03/24 17:34 05/04/24 04:33 Lab results: Laboratory Results - last 24 hr 05/03/24 05/04/24 05/04/24 17:34 04:33 07:25 WBC 11.0 H RBC 4.21 L Hgb 9.2 L Hct 32.4 L MCV 77.0 L MCH 21.9 L MCHC 28.4 L RDW 23.3 H Plt Count 181 D MPV 10.0 Immature Gran % (Auto) 0.5 H Neut % (Auto) 61.1 Lymph % (Auto) 19.6 L [place] % (Auto) 6.0 Eos % (Auto) 11.6 H Baso % (Auto) 1.2 Lymph # (Auto) 2.2 [place] # (Auto) 0.7 Eos # (Auto) 1.3 H Baso # (Auto) 0.1 Abs Immat Gran (auto) 0.05 H Absolute Neuts (auto) 6.7 Absolute Nucleated RBC 0.000 Nucleated RBC % (auto) 0.0 Sodium 144 145 Potassium 3.9 3.8 Chloride 104 103 Carbon Dioxide 31 H 31 H Anion Gap 13 15 BUN 21 H 19 H Creatinine 1.11 1.05 Estim Creat Clear Calc 90.6 95.8 Estimated GFR > 60 > 60 POC Glucose 172 H Random Glucose 196 H 190 H Calcium 8.6 8.5 Total Bilirubin 0.5 Direct Bilirubin 0.3 AST 25 ALT 13 Alkaline Phosphatase 103 B-Natriuretic Peptide 3208 H 2976 H Total Protein 6.2 L Albumin 2.9 L 05/04/24 11:01 WBC RBC Hgb Hct MCV MCH MCHC RDW Plt Count MPV Immature Gran % (Auto) Neut % (Auto) Lymph % (Auto) [place] % (Auto) Eos % (Auto) Baso % (Auto) Lymph # (Auto) [place] # (Auto) Eos # (Auto) Baso # (Auto) Abs Immat Gran (auto) Absolute Neuts (auto) Absolute Nucleated RBC Nucleated RBC % (auto) Sodium Potassium Chloride Carbon Dioxide Anion Gap BUN Creatinine Estim Creat Clear Calc Estimated GFR POC Glucose 155 H Random Glucose Calcium Total Bilirubin Direct Bilirubin AST ALT Alkaline Phosphatase B-Natriuretic Peptide Total Protein Albumin Imaging Radiologist's impression: Impressions Chest X-Ray 05/03/24 17:15 IMPRESSION: Bibasilar opacities may reflect aspiration, atelectasis, or infection. Small right effusion. Borderline enlarged cardiac silhouette. Electronically signed by: Peyton Boucher MD 05/03/2024 06:29 PM [facility] Abdomen/Pelvis CT 05/03/24 18:23 IMPRESSION: 1. Mild simple ascites, increased when compared to the prior CT. No organized fluid collection or abscess formation. 2. Diverticulosis without evidence of acute diverticulitis. No small or large bowel obstruction. Mild stool burden throughout the colon. Unremarkable appendix. 3. Circumferential subcutaneous edema, increased when compared to the prior CT. No abdominal wall mass or organized fluid collection. 4. Trace bibasilar pleural effusions with redemonstration of left pleural calcifications. Increasing right basilar atelectasis versus early infiltrates. Fleischner guidelines were followed. Electronically signed by: Shin Siddiqui MD 05/03/2024 09:00 PM [facility] Assessment and Plan (1) Acute on chronic HFrEF (heart failure with reduced ejection fraction): Status: Acute Patient with recurrent decompensated congestive heart failure with advanced heart failure syndrome with multiple hospitalization in the recent past. This admission appears to be most likely due to under diuresis during the last hospitalization. I would continue with IV Lasix drip. Strict intake and output chart needs to be pursued. Advised patient patient that he should be patient for discharge and we should do an adequate diuresis prior to discharge otherwise he will have risk of recurrent hospitalization in the future. Continue metoprolol therapy. Continue rhythm control approach. Agree with treating iron-deficiency. Given his severe LV systolic dysfunction and LV systolic dysfunction and his renal function being stable I would like to rechallenge him with angiotensin receptor lion with valsartan low-dose. Follow renal function closely. If he tolerates this will switch him to Entresto therapy. Overall risk of further deterioration of congestive heart failure and renal function was discussed with him. Prognosis remains guarded. Continue supportive care with oxygen therapy as well as CPAP. Will follow with him. Thank you for allowing me to partake in his care Procedures Date of Service Date of Service: 05/04/24
[2024-05-04] MEDS: Sodium Ferric Gluconat/Sucrose 125 MG in 0.9 % Sodium Chloride 100 ML 100 MG IV (12:01)
--- NOTE | 2024-05-04 13:37 | HO.PM.IMPN ---
Subjective Subjective Date of Service: 05/04/24 Interval History: seen and examined this morning follow up for CHF reports some improvement in SOB, but still with significant leg edema Review of Systems Review of Systems: Yes all other systems are reviewed and are negative Constitutional Constitutional: Denies chills and Denies fever(s) Cardiovascular Cardiovascular: Denies chest pain and Denies palpitations Gastrointestinal Gastrointestinal: Denies abdominal pain, Denies nausea and Denies vomiting Endocrine Endocrine: Denies palpitations Physical Exam Vital Signs: Vital Signs: Last Vital Signs Temp 98.3 F 05/04/24 11:03 Pulse 68 05/04/24 11:03 Resp 18 05/04/24 11:03 BP 113/74 05/04/24 10:27 Pulse Ox 98 05/04/24 11:03 O2 Del Method CPAP 05/04/24 11:03 O2 Flow Rate 3 05/04/24 09:49 Oxygen Flow Rate 2 05/03/24 16:40 BMI result Body Mass Index 35.7 Const: General: cooperative, no acute distress, alert and awake Nutritional Appearance: overweight Orientation/consciousness: patient oriented x3 Resp: Effort & Inspection: normal respiratory effort, able to speak in complete sentences, no respiratory distress and no use of accessory muscles Cardio: Jugular venous distension: JVD GI: Inspection: No distended Palpation (GI): Soft to palpation Skin: Other: LLE wound c/d/i dressing Neuro: General: patient oriented x3, moves all extremities and CN's II-XI intact bilaterally Extrem: Other: b/l pitting edema to thigh L>R Objective Data Active Medications Acetaminophen (Acetaminophen 325 Mg Tablet) 650 mg PO Q6H PRN PRN Reason: Pain, Mild (Pain Scale 1-3), fever or headache Last Admin: 05/04/24 03:37 Dose: 650 mg Documented By: FELICITAS Albuterol Sulfate (Albuterol Sulfate (0.083%) 2.5 Mg/3 Ml Vial.Neb) 2.5 mg INHALE Q6H PRN PRN Reason: Shortness Of Breath Or Wheezing Amiodarone HCl (Amiodarone Hcl 200 Mg Tablet) 200 mg PO DAILY [facility] Last Admin: 05/04/24 10:21 Dose: 200 mg Documented By: DOBROB Apixaban (Apixaban 5 Mg Tablet) 5 mg PO BID [facility] Last Admin: 05/04/24 10:21 Dose: 5 mg Documented By: ADRI Aspirin (Aspirin Enteric Coated 81 Mg Tablet.Dr) 81 mg PO DAILY [facility] Last Admin: 05/04/24 10:21 Dose: 81 mg Documented By: ADRI Calcium Carbonate (Calcium Carbonate 750 Mg Tab.Chew) 750 mg PO Q4H PRN PRN Reason: Heartburn Colchicine (Colchicine 0.6 Mg Tablet) 0.6 mg PO DAILY [facility] Last Admin: 05/04/24 10:21 Dose: 0.6 mg Documented By: ADRI Fluticasone/Vilanterol (Fluticasone/Vilanterol 100/25 Blst.W.Dev) 1 puff INHALE RDAILY [facility] Last Admin: 05/04/24 08:32 Dose: Not Given Documented By: DAVID Non-Admin Reason: Med Not Available Gabapentin (Gabapentin 300 Mg Capsule) 300 mg PO TID [facility] Last Admin: 05/04/24 10:22 Dose: 300 mg Documented By: ADRI Ferric Sodium Gluconate Complex 125 mg/ Sodium Chloride 110 mls @ 100 mls/hr IV DAILY [facility] Stop: 05/06/24 10:05 Last Admin: 05/04/24 12:01 Dose: 100 mls/hr Documented By: ADRI Furosemide 200 mg/ Sodium (Chloride) 100 mls @ 2.5 mls/hr IVCONT .Q24H [facility] Last Admin: 05/03/24 23:44 Dose: 5 mg/hr, 2.5 mls/hr Documented By: FELICITAS Daptomycin 600 mg/ Sodium (Chloride) 62 mls @ 100 mls/hr IV Q24H [facility] Last Infusion: 05/04/24 11:28 Dose: Infused Documented By: ADRI Insulin Glargine (Insulin Glargine,Hum.Rec.Anlog 100 Unit/Ml 10 Ml Vial) 15 unit SUBCUT BEDTIME [facility] Insulin Human Lispro (Insulin Lispro 100 Unit/Ml 3 Ml Vial) 0 unit SUBCUT QIDACHS [facility]; Protocol Last Admin: 05/04/24 12:28 Dose: 2 unit Documented By: ADRI Isosorbide Dinitrate (Isosorbide Dinitrate 5 Mg Tablet) 5 mg PO 0800,1300,1800 [facility]; Protocol Last Admin: 05/04/24 10:28 Dose: 5 mg Documented By: ADRI Magnesium Hydroxide (Milk Of Magnesia 30 Ml Oral.Susp) 30 ml PO DAILY PRN PRN Reason: Constipation Melatonin (Melatonin 3 Mg Tablet) 6 mg PO BEDTIME PRN PRN Reason: Insomnia Last Admin: 05/04/24 03:37 Dose: 6 mg Documented By: FELICITAS Meropenem (Meropenem 1 Gm Vial) 1 gm IVPUSH Q8H [facility] Last Admin: 05/04/24 10:21 Dose: 1 gm Documented By: ADRI Metoprolol Succinate (Metoprolol Succinate Er 25 Mg Tab.Er.24h) 25 mg PO DAILY [facility]; Protocol Last Admin: 05/04/24 10:27 Dose: 25 mg Documented By: ADRI Omeprazole (Omeprazole 20 Mg Capsule.Dr) 20 mg PO DAILY@0630 [facility] Last Admin: 05/04/24 06:40 Dose: 20 mg Documented By: FELICITAS Ondansetron HCl (Ondansetron Hcl 4 Mg/2 Ml Vial) 4 mg IVPUSH Q8H PRN PRN Reason: Nausea and Vomiting Sertraline HCl (Sertraline Hcl 25 Mg Tablet) 25 mg PO DAILY [facility] Last Admin: 05/04/24 10:22 Dose: 25 mg Documented By: ADRI Sodium Chloride (0.9 % Sodium Chloride Flush 3 Ml Syringe) 3 ml IVFLUSH QSHIFT [facility] Last Admin: 05/04/24 07:30 Dose: Not Given Documented By: RAMAN Non-Admin Reason: IV Running Thiamine HCl (Thiamine Hcl 100 Mg Tablet) 100 mg PO DAILY [facility] Last Admin: 05/04/24 10:21 Dose: 100 mg Documented By: ADRI Valsartan (Valsartan 40 Mg Tablet) 20 mg PO BID [facility]; Protocol Vitamin D (Cholecalciferol (Vitamin D3) 25 Mcg Tablet) 25 mcg PO DAILY [facility] Last Admin: 05/04/24 10:22 Dose: 25 mcg Documented By: ADRI Labs 05/03/24 17:34 05/04/24 04:33 Labs: Laboratory Results - last 24 hr 05/03/24 05/04/24 05/04/24 17:34 04:33 07:25 MCV 77.0 L MCH 21.9 L MCHC 28.4 L RDW 23.3 H Plt Count 181 D MPV 10.0 Immature Gran % (Auto) 0.5 H Neut % (Auto) 61.1 Lymph % (Auto) 19.6 L [place] % (Auto) 6.0 Eos % (Auto) 11.6 H Baso % (Auto) 1.2 Lymph # (Auto) 2.2 [place] # (Auto) 0.7 Eos # (Auto) 1.3 H Baso # (Auto) 0.1 Abs Immat Gran (auto) 0.05 H Absolute Neuts (auto) 6.7 Absolute Nucleated RBC 0.000 Nucleated RBC % (auto) 0.0 Anion Gap 13 15 Estim Creat Clear Calc 90.6 95.8 Estimated GFR > 60 > 60 POC Glucose 172 H Random Glucose 196 H 190 H Calcium 8.6 8.5 Total Bilirubin 0.5 Direct Bilirubin 0.3 AST 25 ALT 13 Alkaline Phosphatase 103 B-Natriuretic Peptide 3208 H 2976 H Total Protein 6.2 L Albumin 2.9 L 05/04/24 11:01 MCV MCH MCHC RDW Plt Count MPV Immature Gran % (Auto) Neut % (Auto) Lymph % (Auto) [place] % (Auto) Eos % (Auto) Baso % (Auto) Lymph # (Auto) [place] # (Auto) Eos # (Auto) Baso # (Auto) Abs Immat Gran (auto) Absolute Neuts (auto) Absolute Nucleated RBC Nucleated RBC % (auto) Anion Gap Estim Creat Clear Calc Estimated GFR POC Glucose 155 H Random Glucose Calcium Total Bilirubin Direct Bilirubin AST ALT Alkaline Phosphatase B-Natriuretic Peptide Total Protein Albumin Assessment and Plan (1) RIC (iron deficiency anemia): Status: Acute (2) Diabetic infection of left foot: Status: Acute (3) Acute on chronic HFrEF (heart failure with reduced ejection fraction): Status: Acute Plan A 58-year-old male with pertinent history of sCHF, diabetic foot infection on IV antibiotics, COPD, PAF on Eliquis, CAD status post PCI, KIMANI on CPAP, insulin-dependent diabetes mellitus, mood disorder, PAD among others who presents with Increase fluids and Dyspnea. # Anasarca 2/2 Acute on chronic congestive heart failure with reduced ejection fraction with decreased Albumin EF 15-20% s/p AICD Continue Caesar griffithip Strict I's and O's. Low-salt diet, increase Protein intake DC Jardiance per cardiology rec last admission continue beta-lion Cardiology following - resume low dose valsartan # acute on chronic Iron def. anemia No evidence of bleeding , Low iron stores prev. negative occult last admission Start IV Iron, DC on PO supplement will need outpatient GI follow up for further eval # Insulin-dependent diabetes mellitus with hyperglycemia basal plus insulin regimen # Diabetic foot infection with OM on IV Abx Wound care following On IV ertapenem and daptomycin until 05/14/2024 (change to Meropenem while inpt) Vascular eval appreciated, continue wound care, no surgical intervention needed at this point # Peripheral arterial disease Previous arterial Dopplers showing delayed arterial upstroke. Outpatient follow-up with Dr. Leal # COPD, Continue home inhalers # KIMANI: CPAP at bedtime # CAD: On aspirin. Not on statin # Paroxysmal atrial fibrillation: On amiodarone, beta-lion and Eliquis # Mood disorder: Continue home mood stabilizers DVT prophylaxis: Eliquis Full code The patient requires ongoing inpatient hospital stay for IV diuresis, close monitoring of volume status which is not possible in a lesser acute setting pending cardiology follow up Quality Stroke Does the patient have a stroke diagnosis?: No VTE Prior VTE?: No VTE Risk Level:: Medical - moderate - high VTE Device Contraindication: Treatment Not Indicated VTE Drug Contraindication: N/A - Med Ordered
--- NOTE | 2024-05-04 15:33 | HO.WOUND ---
Wound Consult: Initial 58yr old Male admitted to [facility] [place] on 05/03/24 - See progress notes and H&P for detailed history.? Wound consult placed for Left foot wound.? Patient agreeable to assessment and photo documentation.? Patient follows with outpt wound clinic last appointment 03/08/24 - recommend continued follow up at time of D/C. Patient reports he was seen by his escape wheel tooth cutter last month and the escape wheel tooth cutter recommended he go to ED. He reports he has not been back since this is his second admission since that appointment. Patient reports he was to have an appointment with wound clinic but has since been admitted. He reports he has VNA services but is unable to recall the type of dressing they are performing. Left Plantar wound, anterior portion of toe and 2nd toe webspace Left 2nd Toe Left Plantar (not pictures 2nd webspace that communicates to plantar wound Etiology: ??Diabetic Wounds Measurements: Left Anterior wound : 1.5cm x 1cm x 0.3cm pink wound bed Left 2nd web space communicates to Left Plantar with undermining circumferential - adherent fibrinous slough Drainage / Odor: cub[place] yellow drainage noted on dressing when removed - mild odor noted Edges: ? callused and nonadherent Catalina wound: ?Callused mild erythema noted mild swelling noted Pain: reports pain and reports neuropathy Goals of Treatment: ? Durafiber AG defer to surgery and vascular team There is concern for depth of wound and communication between wound beds, TT to RANI De Leon. Recommendations: 1. Maintain blood glucose levels per Providers order. 2. Left foot sites - Off Load Pressure - Cleanse and irrigate with NS, Pat dry.? Apply barrier to periwound, lightly pack with Durafiber AG, be sure to leave a wick to easy removal.? Cover with dry gauze, gauze wrap.? Change every other day. Recommend continued follow up out patient Wound Clinic at [address] [place] [id number] and to call for an appointment at time of discharge. [phone].? Re-consult wound care Nurse for wound deterioration or wound changes.
[2024-05-04 16:05] LABS: Glucose, Whole Blood 162 mg/dL (60-115)
[2024-05-04] MEDS: Morphine Sulfate 2 MG/ML CARTRIDGE IVPUSH ×2 (16:07→21:06)
[2024-05-04 20:44] LABS: Glucose, Whole Blood 108 mg/dL (60-115)
[2024-05-04] MEDS: 0.9 % Sodium Chloride Flush 3 ML SYRINGE IVFLUSH (21:01)
[2024-05-04] MEDS: Insulin Glargine,Hum.rec.anlog 100 UNIT/ML 10 ML VIAL 15 UNIT SUBCUT (21:01)
[2024-05-04] MEDS: Valsartan 40 MG TABLET 20 MG PO (21:03)
[2024-05-04] MEDS: Furosemide 200 MG in 0.9 % Sodium Chloride 80 ML IVCONT (22:44)
[2024-05-05] MEDS: Meropenem 1 GM VIAL IVPUSH ×3 (00:19→17:04)
[2024-05-05 03:36] VITALS: BP 102/56; PULSE 64; RESP 18; TEMP 36.4; O2SAT 98
[2024-05-05] MEDS: Omeprazole 20 MG CAPSULE.DR PO (06:23)
[2024-05-05 07:23] VITALS: BP 120/65; PULSE 69; RESP 18; TEMP 37; O2SAT 95
[2024-05-05 08:01] LABS: Glucose, Whole Blood 74 mg/dL (60-115)
--- NOTE | 2024-05-05 09:00 | P.CONGS_ITS ---
<Statement entered by Jens Chatman MD - 05/05/24 11:52> I have seen and evaluated the patient and agree with history, findings, assessment and plan documented by Catherine Tan PA-c. History of Present Illness Consult details Consult date: 05/05/24 Narrative: Jr is being seen today as a consult for ongoing left diabetic foot infection, not getting any better. Currently remains on IV antibiotics until 05/14. He came in on 05/03 to the ER for dyspnea. Was admitted for acute on chronic heart failure. This morning he states he is feeling a little bit better; he is on CPAP, he is trying to get some sleep. He states he continues with the IV antibiotics at home. He is having VNA services do dressing changes to the left foot. He states his left foot does not hurt this morning. He denies any fevers or chills. Review of Systems 2 Constitutional: Constitutional: Reports as per HPI and Denies weakness ENT: Reports Normal hearing present and Denies dizziness Cardiovascular: Cardiovascular: Reports as per HPI, Denies chest pain, Denies chest pain at rest, Denies chest pain with activity, Denies dyspnea and Denies dyspnea on exertion Respiratory: Respiratory: Reports as per HPI, Denies cough, Denies dyspnea and Denies dyspnea on exertion Gastrointestinal: Gastrointestinal: Reports as per HPI, Denies abdominal pain, Denies nausea and Denies vomiting Musculoskeletal: Musculoskeletal: Denies numbness Integumentary/Breasts: Skin/Breast: Reports as per HPI, Denies erythema and Denies wounds Neurologic: Reports Normal hearing present, Denies dizziness, Denies numbness, Denies Sensory deficit (Neuro) and Denies weakness Psychiatric: Psychiatric: Reports no additional psychiatric complaints Endocrine: Endocrine: Reports no additional endocrine complaints [facility] Past Medical History Medical History Acute on chronic HFrEF (heart failure with reduced ejection fraction) History of osteomyelitis 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 Diverticulosis Tubular adenoma of colon (~2017) History of COVID-19 Nicotine dependence, cigarettes, uncomplicated Hypertensive retinopathy Microhematuria ICD (implantable cardioverter-defibrillator) in place COPD (chronic obstructive pulmonary disease) KIMANI (obstructive sleep apnea) Sleep apnea CAD (coronary artery disease) Paroxysmal atrial fibrillation (~2016) Family History Family History Father Atherosclerosis Mother Cerebral aneurysm Maternal Grandmother Unknown family medical history Mother Cerebral hemorrhage Father Coronary artery disease Surgical History Surgical History History of amputation of left great toe History of cardiac cath History of ankle surgery History of implantable cardiac defibrillator (ICD) History of colonoscopy History of heart artery stent History of cardiac radiofrequency ablation History of cardioversion History of esophagogastroduodenoscopy History of umbilical hernia History of inguinal hernia Social History Social History Household Members: None Housing: House Are you a primary aged or disabled carer to a significant other at home: No Do you presently have visiting nurse or other home services: Yes (VNA) Alcohol intake: former Comment: sitter at bedside Patient Tobacco Use Status: Current everyday Tobacco user Tobacco use type: Cigarette Cigarette Packs Per Day: 1 Cigarettes Per Day: 2 Years Smoked: (current smoker - onset 14yo, 1ppd x 43yrs, 40pyh) e-Cigarette/Vaping Use: Never Used Second Hand Smoke Exposure: Yes Advance Directives Date on File: 07/09/21 service: No Current occupational status: unemployed and disabled Current occupation: rt handed Cognitive needs: No Hearing needs: No Vision needs: Yes Meds Allergies Allergy/AdvReac Type Severity Reaction Status Date / Time No Known Allergies Allergy Verified 05/03/24 16:45 [No Known Allergies*] Active Medications: Current Medications Acetaminophen (Acetaminophen 325 Mg Tablet) 650 mg PO Q6H PRN PRN Reason: Pain, Mild (Pain Scale 1-3), fever or headache Last Admin: 05/04/24 03:37 Dose: 650 mg Albuterol Sulfate (Albuterol Sulfate (0.083%) 2.5 Mg/3 Ml Vial.Neb) 2.5 mg INHALE Q6H PRN PRN Reason: Shortness Of Breath Or Wheezing Amiodarone HCl (Amiodarone Hcl 200 Mg Tablet) 200 mg PO DAILY [facility] Last Admin: 05/04/24 10:21 Dose: 200 mg Apixaban (Apixaban 5 Mg Tablet) 5 mg PO BID [facility] Last Admin: 05/04/24 21:00 Dose: 5 mg Aspirin (Aspirin Enteric Coated 81 Mg Tablet.) 81 mg PO DAILY [facility] Last Admin: 05/04/24 10:21 Dose: 81 mg Calcium Carbonate (Calcium Carbonate 750 Mg Tab.Chew) 750 mg PO Q4H PRN PRN Reason: Heartburn Colchicine (Colchicine 0.6 Mg Tablet) 0.6 mg PO DAILY [facility] Last Admin: 05/04/24 10:21 Dose: 0.6 mg Fluticasone/Vilanterol (Fluticasone/Vilanterol 100/25 Blst.W.Dev) 1 puff INHALE RDAILY [facility] Last Admin: 05/05/24 08:22 Dose: Not Given Gabapentin (Gabapentin 300 Mg Capsule) 300 mg PO TID [facility] Last Admin: 05/04/24 21:00 Dose: 300 mg Ferric Sodium Gluconate Complex 125 mg/ Sodium Chloride 110 mls @ 100 mls/hr IV DAILY [facility] Stop: 05/06/24 10:05 Last Infusion: 05/04/24 13:41 Dose: Infused Furosemide 200 mg/ Sodium (Chloride) 100 mls @ 2.5 mls/hr IVCONT .Q24H [facility] Last Admin: 05/04/24 22:44 Dose: 5 mg/hr, 2.5 mls/hr Daptomycin 600 mg/ Sodium (Chloride) 62 mls @ 100 mls/hr IV Q24H [facility] Last Infusion: 05/04/24 11:28 Dose: Infused Insulin Glargine (Insulin Glargine,Hum.Rec.Anlog 100 Unit/Ml 10 Ml Vial) 15 unit SUBCUT BEDTIME [facility] Last Admin: 05/04/24 21:01 Dose: 15 unit Insulin Human Lispro (Insulin Lispro 100 Unit/Ml 3 Ml Vial) 0 unit SUBCUT QIDACHS [facility]; Protocol Last Admin: 05/05/24 07:50 Dose: Not Given Isosorbide Dinitrate (Isosorbide Dinitrate 5 Mg Tablet) 5 mg PO 0800,1300,1800 [facility]; Protocol Last Admin: 05/04/24 18:28 Dose: 5 mg Magnesium Hydroxide (Milk Of Magnesia 30 Ml Oral.Susp) 30 ml PO DAILY PRN PRN Reason: Constipation Melatonin (Melatonin 3 Mg Tablet) 6 mg PO BEDTIME PRN PRN Reason: Insomnia Last Admin: 05/04/24 03:37 Dose: 6 mg Meropenem (Meropenem 1 Gm Vial) 1 gm IVPUSH Q8H [facility] Last Admin: 05/05/24 00:19 Dose: 1 gm Metoprolol Succinate (Metoprolol Succinate Er 25 Mg Tab.Er.24h) 25 mg PO DAILY [facility]; Protocol Last Admin: 05/04/24 10:27 Dose: 25 mg Morphine Sulfate (Morphine Sulfate 2 Mg/Ml Cartridge) 2 mg IVPUSH Q4H PRN; Protocol PRN Reason: Pain, Severe (Pain Scale 7-10) Last Admin: 05/04/24 21:06 Dose: 2 mg Omeprazole (Omeprazole 20 Mg Capsule.Dr) 20 mg PO DAILY@0630 [facility] Last Admin: 05/05/24 06:23 Dose: 20 mg Ondansetron HCl (Ondansetron Hcl 4 Mg/2 Ml Vial) 4 mg IVPUSH Q8H PRN PRN Reason: Nausea and Vomiting Oxycodone HCl (Oxycodone Hcl Immed Release 5 Mg Tablet) 5 mg PO Q6H PRN PRN Reason: Pain, Moderate(Pain Scale 4-6) Sertraline HCl (Sertraline Hcl 25 Mg Tablet) 25 mg PO DAILY [facility] Last Admin: 05/04/24 10:22 Dose: 25 mg Sodium Chloride (0.9 % Sodium Chloride Flush 3 Ml Syringe) [facility] Last Admin: 05/04/24 21:01 Dose: 3 ml Thiamine HCl (Thiamine Hcl 100 Mg Tablet) 100 mg PO DAILY [facility] Last Admin: 05/04/24 10:21 Dose: 100 mg Valsartan (Valsartan 40 Mg Tablet) 20 mg PO BID [facility]; Protocol Last Admin: 05/04/24 21:03 Dose: 20 mg Vitamin D (Cholecalciferol (Vitamin D3) 25 Mcg Tablet) 25 mcg PO DAILY [facility] Last Admin: 05/04/24 10:22 Dose: 25 mcg Home Medications ?Medication ?Instructions ?Recorded ?Confirmed ?Last Taken ?Type colchicine 0.6 mg tablet 0.6 mg PO DAILY 11/18/23 05/03/24 05/03/24 History insulin glargine 100 unit/mL (3 17 unit subcut BEDTIME 11/18/23 05/03/24 05/02/24 History mL) subcutaneous pen (Lantus Solostar U-100 Insulin) insulin lispro 100 unit/mL 7 unit subcut TIDAC 11/18/23 05/03/24 05/03/24 History subcutaneous solution albuterol sulfate 2.5 mg/3 mL 2.5 mg inhalation Q6H PRN 03/23/24 05/03/24 Unknown History (0.083 %) solution for nebulization Shortness Of Breath Or Wheezing apixaban 5 mg tablet (Eliquis) 5 mg PO BID 03/23/24 05/03/24 05/03/24 History empagliflozin 10 mg tablet 10 mg PO DAILY 03/23/24 05/03/24 05/03/24 History (Jardiance) fluticasone propionate 45 2 puff inhalation BID 03/23/24 05/03/24 05/03/24 History mcg-salmeterol 21 mcg/actuation HFA inhaler (Advair HFA) sennosides 8.6 mg tablet (senna) 17.2 mg PO BEDTIME 03/23/24 05/03/24 05/02/24 History torsemide 40 mg tablet 60 mg PO DAILY 05/03/24 05/03/24 05/03/24 History Physical Exam 2 Vital Signs: Vital Signs: Last Vital Signs Temp 98.6 F 05/05/24 07:23 Pulse 69 05/05/24 07:23 Resp 18 05/05/24 07:23 BP 120/65 05/05/24 07:23 Pulse Ox 95 05/05/24 07:23 O2 Del Method Nasal Cannula 05/05/24 07:23 O2 Flow Rate 2 05/05/24 07:23 Oxygen Flow Rate 2 05/03/24 16:40 BMI result Body Mass Index 35.7 Const: General: comfortable and no acute distress O rientation/consciousness: patient oriented x3 HEENT: Ears: hearing grossly normal bilaterally Resp: Effort & Inspection: normal respiratory effort and able to speak in complete sentences Auscultation: clear to auscultation bilaterally Cardio: Rate: regular rate Rhythm: regular rhythm Heart sounds: S1 normal heart sound present and S2 normal heart sound present Bruits: no abdominal aortic bruits, no carotid bruits, no femoral bruits and no renal bruits GI: Palpation (GI): No Abdominal aortic bruit present Neuro: General: patient oriented x3 Cranial nerves: Yes Normal hearing present Sensory Exam: No Sensory deficit (Neuro) Extrem: Other: Left foot: Wrapped in Kerlix this morning. Tunneling noted between L2 and L3. Dry eschar and gangrene noted L1 amp site, around L2, and L3 and 4. Faint DP pulses palpated. L2 toe: Very loose, wiggles very easily. Dry gangrene noted over toe. Results Labs 05/03/24 17:34 05/04/24 04:33 Labs: Abnormal lab results 05/04/24 05/04/24 Range/Units 11:01 16:01 POC Glucose 155 H 162 H (60-115) mg/dL All other labs normal. Assessment and Plan (1) Diabetic infection of left foot: Status: Sridhar Norris was seen this morning as a consult due to ongoing left diabetic foot infection. The site is packed with Durafiber packing and wrapped with Kerlix. We did not take the dressings down this morning. I did have a conversation with the wound care nurse. We will continue with the current wound care. Due to the extensive heart failure and anasarca that the patient is currently experiencing, we will follow the patient outpatient. He has been a patient of Dr. Mayers in the past; however he does not want to follow up with Dr. Leal anymore. There is no acute vascular surgical intervention at this point. We will make an outpatient appointment for Jr. Thank you for the consult. If there are any questions or concerns, please do not hesitate to reach out to us. Procedures Date of Service Date of Service: 05/05/24
[2024-05-05] MEDS: DAPTOmycin 600 MG in 0.9 % Sodium Chloride 50 ML 100 MG IV (09:04)
[2024-05-05] MEDS: Valsartan 40 MG TABLET 20 MG PO ×2 (09:05→20:56)
[2024-05-05] MEDS: Apixaban 5 MG TABLET PO ×2 (09:05→20:56)
[2024-05-05] MEDS: Gabapentin 300 MG CAPSULE PO ×3 (09:06→20:56)
[2024-05-05] MEDS: Isosorbide Dinitrate 5 MG TABLET PO ×3 (09:06→17:04)
[2024-05-05] MEDS: Aspirin Enteric Coated 81 MG TABLET.DR PO (09:06)
[2024-05-05] MEDS: Sertraline HCL 25 MG TABLET PO (09:06)
[2024-05-05] MEDS: Thiamine HCL 100 MG TABLET PO (09:06)
[2024-05-05] MEDS: Colchicine 0.6 MG TABLET PO (09:06)
[2024-05-05] MEDS: 0.9 % Sodium Chloride Flush 3 ML SYRINGE IVFLUSH ×3 (09:06→20:57)
[2024-05-05] MEDS: Metoprolol Succinate ER 25 MG TAB.ER.24H PO (09:06)
[2024-05-05] MEDS: Cholecalciferol (Vitamin D3) 25 MCG TABLET PO (09:06)
[2024-05-05] MEDS: Amiodarone HCL 200 MG TABLET PO (09:06)
--- NOTE | 2024-05-05 09:56 | HO.PM.IMPN ---
Subjective Subjective Date of Service: 05/05/24 Interval History: Seen and examined this morning Follow-up for heart failure No overnight events, was able to sleep well breathing improving, some improvement in leg edema but still with abdominal distention Review of Systems Review of Systems: Yes all other systems are reviewed and are negative Constitutional Constitutional: Denies chills and Denies fever(s) Cardiovascular Cardiovascular: Denies chest pain, Denies palpitations and Reports dyspnea Respiratory Respiratory: Denies cough and Reports dyspnea Gastrointestinal Gastrointestinal: Denies nausea and Denies vomiting Endocrine Endocrine: Denies palpitations Physical Exam Vital Signs: Vital Signs: Last Vital Signs Temp 98.6 F 05/05/24 07:23 Pulse 69 05/05/24 07:23 Resp 18 05/05/24 07:23 BP 120/65 05/05/24 07:23 Pulse Ox 95 05/05/24 07:23 O2 Del Method Nasal Cannula 05/05/24 07:23 O2 Flow Rate 2 05/05/24 07:23 Oxygen Flow Rate 2 05/03/24 16:40 BMI result Body Mass Index 35.7 Const: General: cooperative, no acute distress, alert and awake Nutritional Appearance: overweight Orientation/consciousness: patient oriented x3 Resp: Effort & Inspection: normal respiratory effort, able to speak in complete sentences, no respiratory distress and no use of accessory muscles Cardio: Jugular venous distension: JVD GI: Inspection: No distended Palpation (GI): Soft to palpation Skin: Other: LLE wound c/d/i dressing Neuro: General: patient oriented x3, moves all extremities and CN's II-XI intact bilaterally Extrem: Other: b/l pitting edema to thigh L>R Objective Data Active Medications Acetaminophen (Acetaminophen 325 Mg Tablet) 650 mg PO Q6H PRN PRN Reason: Pain, Mild (Pain Scale 1-3), fever or headache Last Admin: 05/04/24 03:37 Dose: 650 mg Documented By: FELICITAS Albuterol Sulfate (Albuterol Sulfate (0.083%) 2.5 Mg/3 Ml Vial.Neb) 2.5 mg INHALE Q6H PRN PRN Reason: Shortness Of Breath Or Wheezing Amiodarone HCl (Amiodarone Hcl 200 Mg Tablet) 200 mg PO DAILY [facility] Last Admin: 05/05/24 09:06 Dose: 200 mg Documented By: HO.WILLIAK Apixaban (Apixaban 5 Mg Tablet) 5 mg PO BID [facility] Last Admin: 05/05/24 09:05 Dose: 5 mg Documented By: SUSAN Aspirin (Aspirin Enteric Coated 81 Mg Tablet.Dr) 81 mg PO DAILY [facility] Last Admin: 05/05/24 09:06 Dose: 81 mg Documented By: SUSAN Calcium Carbonate (Calcium Carbonate 750 Mg Tab.Chew) 750 mg PO Q4H PRN PRN Reason: Heartburn Colchicine (Colchicine 0.6 Mg Tablet) 0.6 mg PO DAILY [facility] Last Admin: 05/05/24 09:06 Dose: 0.6 mg Documented By: SUSAN Fluticasone/Vilanterol (Fluticasone/Vilanterol 100/25 Blst.W.Dev) 1 puff INHALE RDAILY [facility] Last Admin: 05/05/24 08:22 Dose: Not Given Documented By: SAWYER Non-Admin Reason: Patient Refused Gabapentin (Gabapentin 300 Mg Capsule) 300 mg PO TID [facility] Last Admin: 05/05/24 09:06 Dose: 300 mg Documented By: SUSAN Ferric Sodium Gluconate Complex 125 mg/ Sodium Chloride 110 mls @ 100 mls/hr IV DAILY [facility] Stop: 05/06/24 10:05 Last Infusion: 05/04/24 13:41 Dose: Infused Documented By: ADRI Furosemide 200 mg/ Sodium (Chloride) 100 mls @ 2.5 mls/hr IVCONT .Q24H [facility] Last Admin: 05/04/24 22:44 Dose: 5 mg/hr, 2.5 mls/hr Documented By: WHITNEY Daptomycin 600 mg/ Sodium (Chloride) 62 mls @ 100 mls/hr IV Q24H [facility] Last Admin: 05/05/24 09:04 Dose: 100 mls/hr Documented By: SUSAN Insulin Glargine (Insulin Glargine,Hum.Rec.Anlog 100 Unit/Ml 10 Ml Vial) 15 unit SUBCUT BEDTIME [facility] Last Admin: 05/04/24 21:01 Dose: 15 unit Documented By: WHITNEY Insulin Human Lispro (Insulin Lispro 100 Unit/Ml 3 Ml Vial) 0 unit SUBCUT QIDACHS [facility]; Protocol Last Admin: 05/05/24 07:50 Dose: Not Given Documented By: SUSAN Non-Admin Reason: poc= 74 Isosorbide Dinitrate (Isosorbide Dinitrate 5 Mg Tablet) 5 mg PO 0800,1300,1800 [facility]; Protocol Last Admin: 05/05/24 09:06 Dose: 5 mg Documented By: SUSAN Magnesium Hydroxide (Milk Of Magnesia 30 Ml Oral.Susp) 30 ml PO DAILY PRN PRN Reason: Constipation Melatonin (Melatonin 3 Mg Tablet) 6 mg PO BEDTIME PRN PRN Reason: Insomnia Last Admin: 05/04/24 03:37 Dose: 6 mg Documented By: FELICITAS Meropenem (Meropenem 1 Gm Vial) 1 gm IVPUSH Q8H [facility] Last Admin: 05/05/24 09:05 Dose: 1 gm Documented By: SUSAN Metoprolol Succinate (Metoprolol Succinate Er 25 Mg Tab.Er.24h) 25 mg PO DAILY [facility]; Protocol Last Admin: 05/05/24 09:06 Dose: 25 mg Documented By: SUSAN Morphine Sulfate (Morphine Sulfate 2 Mg/Ml Cartridge) 2 mg IVPUSH Q4H PRN; Protocol PRN Reason: Pain, Severe (Pain Scale 7-10) Last Admin: 05/04/24 21:06 Dose: 2 mg Documented By: WHITNEY Omeprazole (Omeprazole 20 Mg Capsule.Dr) 20 mg PO DAILY@0630 [facility] Last Admin: 05/05/24 06:23 Dose: 20 mg Documented By: WHITNEY Ondansetron HCl (Ondansetron Hcl 4 Mg/2 Ml Vial) 4 mg IVPUSH Q8H PRN PRN Reason: Nausea and Vomiting Oxycodone HCl (Oxycodone Hcl Immed Release 5 Mg Tablet) 5 mg PO Q6H PRN PRN Reason: Pain, Moderate(Pain Scale 4-6) Sertraline HCl (Sertraline Hcl 25 Mg Tablet) 25 mg PO DAILY [facility] Last Admin: 05/05/24 09:06 Dose: 25 mg Documented By: SUSAN Sodium Chloride (0.9 % Sodium Chloride Flush 3 Ml Syringe) 3 ml IVFLUSH QSHIFT [facility] Last Admin: 05/05/24 09:06 Dose: 3 ml Documented By: SUSAN Thiamine HCl (Thiamine Hcl 100 Mg Tablet) 100 mg PO DAILY [facility] Last Admin: 05/05/24 09:06 Dose: 100 mg Documented By: SUSAN Valsartan (Valsartan 40 Mg Tablet) 20 mg PO BID [facility]; Protocol Last Admin: 05/05/24 09:05 Dose: 20 mg Documented By: SUSAN Vitamin D (Cholecalciferol (Vitamin D3) 25 Mcg Tablet) 25 mcg PO DAILY [facility] Last Admin: 05/05/24 09:06 Dose: 25 mcg Documented By: SUSAN Labs 05/03/24 17:34 05/05/24 08:36 Labs: Laboratory Results - last 24 hr 05/04/24 05/04/24 05/04/24 11:01 16:01 20:39 POC Glucose 155 H 162 H 108 05/05/24 07:21 POC Glucose 74 Assessment and Plan (1) Diabetic infection of left foot: Status: Acute (2) Acute on chronic HFrEF (heart failure with reduced ejection fraction): Status: Acute Plan A 58-year-old male with pertinent history of sCHF, diabetic foot infection on IV antibiotics, COPD, PAF on Eliquis, CAD status post PCI, KIMANI on CPAP, insulin-dependent diabetes mellitus, mood disorder, PAD among others who presents with Increase fluids and Dyspnea. # Anasarca 2/2 Acute on chronic congestive heart failure with reduced ejection fraction EF 15-20% s/p AICD Continue Lasix drip Strict I's and O's. Low-salt diet, increase Protein intake DC Jardiance per cardiology rec last admission continue beta-lion resumed on low dose valsartan with plan to transition to entreso if tolerates ARB Cardiology following follow daily BNP # acute on chronic Iron def. anemia No evidence of bleeding , Low iron stores prev. negative occult last admission Start IV Iron, DC on PO supplement will need outpatient GI follow up for further eval # Insulin-dependent diabetes mellitus with hyperglycemia basal plus insulin regimen ADA diet # Diabetic foot infection with OM on IV Abx Wound care following On IV ertapenem and daptomycin until 05/14/2024 (change to Meropenem while inpt) Vascular eval appreciated, continue wound care, no surgical intervention needed at this point # Peripheral arterial disease Previous arterial Dopplers showing delayed arterial upstroke. Outpatient follow-up with Dr. Chatman # COPD, Continue home inhalers # KIMANI: CPAP at bedtime # CAD: On aspirin. Not on statin # Paroxysmal atrial fibrillation: On amiodarone, beta-lion and Eliquis # Mood disorder: Continue home mood stabilizers DVT prophylaxis: Eliquis Full code The patient requires ongoing inpatient hospital stay for IV diuresis, close monitoring of volume status which is not possible in a lesser acute setting pending cardiology follow up Quality Stroke Does the patient have a stroke diagnosis?: No VTE Prior VTE?: No VTE Risk Level:: Medical - moderate - high VTE Device Contraindication: Treatment Not Indicated VTE Drug Contraindication: N/A - Med Ordered
--- NOTE | 2024-05-05 10:07 | PM.PNCARD ---
Subjective Subjective Date of Service: 05/05/24 Principal diagnosis: Decompensated congestive heart failure Interval history: Patient has been diuresing well as per him although his intake output chart suggest that he is in slightly positive balance. Unclear regarding that. His lab work from today is pending. He said his leg edema is better and breathing is slightly better. He still complains of abdominal soreness/distension. No atrial fibrillation overnight. Hemodynamically stable. Review of Systems Constitutional: Reports fatigue Cardiovascular: Denies chest pain, Reports leg edema, Denies lightheadedness and Reports dyspnea on exertion Respiratory: Reports dyspnea on exertion Genitourinary: Reports no additional male genitourinary complaints Reports system reviewed and no additional complaints, except as documented Endocrine: Reports fatigue Physical Exam Vital Signs: Last Vital Signs Temp 98.6 F 05/05/24 07:23 Pulse 69 05/05/24 07:23 Resp 18 05/05/24 07:23 BP 120/65 05/05/24 07:23 Pulse Ox 95 05/05/24 07:23 O2 Del Method Nasal Cannula 05/05/24 07:23 O2 Flow Rate 2 05/05/24 07:23 Oxygen Flow Rate 2 05/03/24 16:40 BMI result Body Mass Index 35.7 Const General: cooperative, alert, awake, in distress moderate and respiratory and tired appearing Nutritional Appearance: obese Orientation/consciousness: patient oriented x3 Limitations: no limitations HEENT Head: Yes normocephalic and Yes atraumatic Neck Neck: Yes trachea midline, Yes supple and Yes JVD Resp Auscultation: rales and diminished lung sounds Cardio Jugular venous distension: JVD Palpation: abnormal PMI displaced PMI Rate: regular rate Rhythm: regular rhythm Heart sounds: S1 normal heart sound present, S2 normal heart sound present, no click, no gallops, no murmurs and no rubs GI Inspection: Yes distended Auscultation: normal bowel sounds Skin General skin exam: no rashes or lesions noted Neuro General: patient oriented x3 and no focal motor deficits Extrem General: No clubbing, No cyanosis and Yes edema Objective Labs and Meds 05/03/24 17:34 05/04/24 04:33 Lab results: Laboratory Results - last 24 hr 05/04/24 05/04/24 05/04/24 11:01 16:01 20:39 POC Glucose 155 H 162 H 108 05/05/24 07:21 POC Glucose 74 Progress Note: A&P Assessment and plan (1) Acute on chronic HFrEF (heart failure with reduced ejection fraction): Status: Acute Assessment and Plan: Acute decompensated congestive heart failure with systolic dysfunction. Multiple comorbidities including advanced COPD, advanced diabetes, CAD, atrial fibrillation, significant anemia, unstable renal function. Patient was gradually doing well. Not sure as to his output record. Continue strict intake and output chart. If his diuresis is not adequate will need further uptitration of his Lasix drip. He is tolerating valsartan well. Will check renal function. If creatinine is stable will eventually switch him to Entresto therapy. Continue metoprolol therapy. Continue rhythm control approach with amiodarone. Continue iron replacement therapy. Continue CPAP therapy. Continue management of his underlying lung condition. I expect gradual and slow improvement in his overall heart failure symptoms. I would prefer him to have daily BNP to guide his treatment Will follow with you Time Spent With Patient Time: Total time managing care of this patient today ____ minutes. Progress Note: Quality Stroke Does the patient have a stroke diagnosis?: No Procedures Date of Service Date of Service: 05/05/24
[2024-05-05 10:13] LABS: Anion Gap 14 (12-20); Blood Urea Nitrogen 21 mg/dL (9-16); Calcium 8.7 mg/dL (8.4-10.2); Carbon Dioxide 34 mmol/L (22-29); Chloride 102 mmol/L (96-108); Creatinine Clr Calc Pharmacy 79.5; Estimated Glomerular Filt Rate 57; Glucose Random 131 mg/dL (60-115); Potassium 3.7 mmol/L (3.3-5.1); Sodium 146 mmol/L (135-145)
[2024-05-05] MEDS: Sodium Ferric Gluconat/Sucrose 125 MG in 0.9 % Sodium Chloride 100 ML 100 MG IV (10:16)
[2024-05-05 11:15] VITALS: BP 113/69; PULSE 74; RESP 18; TEMP 36.8; O2SAT 100
[2024-05-05 11:46] LABS: Glucose, Whole Blood 110 mg/dL (60-115)
[2024-05-05 12:12] LABS: B Type Natriuretic Peptide 2667 pg/mL (<100)
--- NOTE | 2024-05-05 13:06 | MHC.CM.PN ---
EMR reviewed and per MD rounds, pt is not medically cleared for discharge due to management of CHF.
--- NOTE | 2024-05-05 13:21 | P.CDIM_ITS ---
PROVIDER RESPONSE TEXT: To clarify, the appropriate diagnosis supported by the clinical indicators: Other (explain): acute osteo diagnosed on previous admission. still getting IV abx QUERY TEXT: PHYSICIAN'S DOCUMENTATION REQUEST Date of Query: 05/05/2024 08:48 AM EST Patient Name: Jr Cruz Admit Date: 05/04/2024 Dear Pepper SARAVIA, A review of the medical record indicates additional documentation may be needed. Please review below and update the documentation accordingly. Clinical Indicators: Progress notes within the Plan: Diabetic foot infection with OM on IV Abx On IV ertapenem and daptomycin until 05/14/24 No surgical intervention needed at this point. Addendum - left foot wound appears worse compared to previous admission. Based on the above, please clarify in the Progress Notes further specificity regarding the acuity of the Osteomyelitis. Acute osteomyelitis left foot Subacute osteomyelitis Chronic osteomyelitis Chronic multifocal osteomyelitis Acute on chronic osteomyelitis Other (explain) Clinically unable to determine (explain) Thank you, Mandy Parson, CCS, CDIS Use of terms such as suspected, likely, concern for, or probable (associated with a specific diagnosi s that is being evaluated, monitored, or treated as if it exists) are acceptable and can be coded in the inpatient se tting, when documented at the time of discharge. Please use your independent medical judgment in providing your response. THIS QUERY IS PART OF THE PERMANENT MEDICAL RECORD
[2024-05-05 16:00] VITALS: BP 104/61; PULSE 66; RESP 14; TEMP 36.3; O2SAT 97
[2024-05-05 16:13] LABS: Glucose, Whole Blood 171 mg/dL (60-115)
[2024-05-05] MEDS: Insulin Lispro 100 UNIT/ML 3 ML VIAL SUBCUT ×2 (17:04→20:57)
[2024-05-05] MEDS: oxyCODONE HCl Immed Release 5 MG TABLET PO ×2 (17:13→22:44)
[2024-05-05 20:00] VITALS: BP 105/66; PULSE 70; RESP 16; TEMP 36.8; O2SAT 98
[2024-05-05 20:42] LABS: Glucose, Whole Blood 153 mg/dL (60-115)
[2024-05-05] MEDS: Insulin Glargine,Hum.rec.anlog 100 UNIT/ML 10 ML VIAL 15 UNIT SUBCUT (20:56)
[2024-05-05] MEDS: Furosemide 200 MG in 0.9 % Sodium Chloride 80 ML IVCONT (22:40)
[2024-05-06] VITALS (13 sets, daily range): BP systolic 87–108; BP diastolic 52–68; PULSE 60–86; RESP 16–20; TEMP 36.1–36.6; O2SAT 94–99
[2024-05-06] MEDS: Meropenem 1 GM VIAL IVPUSH ×3 (01:15→17:02)
[2024-05-06] MEDS: Omeprazole 20 MG CAPSULE.DR PO (06:32)
[2024-05-06 07:42] LABS: Glucose, Whole Blood 98 mg/dL (60-115)
[2024-05-06 07:47] LABS: Anion Gap 14 (12-20); Blood Urea Nitrogen 27 mg/dL (9-16); Carbon Dioxide 34 mmol/L (22-29); Chloride 102 mmol/L (96-108); Creatinine Clr Calc Pharmacy 85.5; Estimated Glomerular Filt Rate > 60; Glucose Random 85 mg/dL (60-115); Potassium 3.8 mmol/L (3.3-5.1); Sodium 146 mmol/L (135-145)
[2024-05-06 07:55] LABS: B Type Natriuretic Peptide 2175 pg/mL (<100)
[2024-05-06] MEDS: Cholecalciferol (Vitamin D3) 25 MCG TABLET PO (08:17)
[2024-05-06] MEDS: Amiodarone HCL 200 MG TABLET PO (08:17)
[2024-05-06] MEDS: Aspirin Enteric Coated 81 MG TABLET.DR PO (08:17)
[2024-05-06] MEDS: Metoprolol Succinate ER 25 MG TAB.ER.24H PO (08:17)
[2024-05-06] MEDS: Sertraline HCL 25 MG TABLET PO (08:17)
[2024-05-06] MEDS: Isosorbide Dinitrate 5 MG TABLET PO ×2 (08:17→14:27)
[2024-05-06] MEDS: Thiamine HCL 100 MG TABLET PO (08:17)
[2024-05-06] MEDS: Valsartan 40 MG TABLET 20 MG PO (08:17)
[2024-05-06] MEDS: Gabapentin 300 MG CAPSULE PO ×3 (08:17→22:03)
[2024-05-06] MEDS: Colchicine 0.6 MG TABLET PO (08:17)
[2024-05-06] MEDS: Apixaban 5 MG TABLET PO ×2 (08:18→22:03)
[2024-05-06] MEDS: DAPTOmycin 600 MG in 0.9 % Sodium Chloride 50 ML 100 MG IV (08:22)
[2024-05-06] MEDS: oxyCODONE HCl Immed Release 5 MG TABLET PO ×2 (08:28→18:37)
[2024-05-06] MEDS: 0.9 % Sodium Chloride Flush 3 ML SYRINGE IVFLUSH ×3 (08:29→22:03)
--- NOTE | 2024-05-06 09:09 | PM.PNCARD ---
Subjective Subjective Date of Service: 05/06/24 Principal diagnosis: Decompensated congestive heart failure Interval history: Patient was doing better. Has diuresed well over the last 3 days. Lesser requirement for oxygen. Continues to have leg edema as well as abdominal wall wall edema. Renal function stable. Remains in sinus rhythm. Tolerating valsartan. Blood pressure is stable Review of Systems Constitutional: Reports no additional constitutional complaints Cardiovascular: Reports Abdominal Distension, Reports leg edema, Reports dyspnea on exertion and Reports orthopnea Respiratory: Reports dyspnea on exertion Gastrointestinal: Reports no additional gastrointestinal complaints Reports system reviewed and no additional complaints, except as documented Physical Exam Vital Signs: Last Vital Signs Temp 97.0 F 05/06/24 07:41 Pulse 66 05/06/24 07:41 Resp 20 05/06/24 07:41 BP 105/64 05/06/24 07:41 Pulse Ox 99 05/06/24 07:41 O2 Del Method Nasal Cannula 05/06/24 07:41 O2 Flow Rate 3 05/06/24 07:41 Oxygen Flow Rate 2 05/03/24 16:40 BMI result Body Mass Index 35.7 Const General: cooperative, alert, awake, in distress moderate and respiratory and tired appearing Nutritional Appearance: obese Orientation/consciousness: patient oriented x3 Limitations: no limitations HEENT Head: Yes normocephalic and Yes atraumatic Neck Neck: Yes trachea midline, Yes supple and Yes JVD Resp Auscultation: rales and diminished lung sounds Cardio Jugular venous distension: JVD Palpation: abnormal PMI displaced PMI Rate: regular rate Rhythm: regular rhythm Heart sounds: S1 normal heart sound present, S2 normal heart sound present, no click, no gallops, no murmurs and no rubs GI Inspection: Yes distended Auscultation: normal bowel sounds Skin General skin exam: no rashes or lesions noted Neuro General: patient oriented x3 and no focal motor deficits Extrem General: No clubbing, No cyanosis and Yes edema Objective Labs and Meds 05/03/24 17:34 05/06/24 06:46 Lab results: Laboratory Results - last 24 hr 05/05/24 05/05/24 05/05/24 08:36 10:23 11:17 Sodium 146 H Potassium 3.7 Chloride 102 Carbon Dioxide 34 H Anion Gap 14 BUN 21 H Creatinine 1.28 Estim Creat Clear Calc 79.5 Estimated GFR 57 POC Glucose 110 Random Glucose 131 H Calcium 8.7 B-Natriuretic Peptide 2667 H 05/05/24 05/05/24 05/06/24 15:53 20:38 06:46 Sodium 146 H Potassium 3.8 Chloride 102 Carbon Dioxide 34 H Anion Gap 14 BUN 27 H Creatinine 1.19 Estim Creat Clear Calc 85.5 Estimated GFR > 60 POC Glucose 171 H 153 H Random Glucose 85 Calcium 9.0 B-Natriuretic Peptide 2175 H 05/06/24 07:01 Sodium Potassium Chloride Carbon Dioxide Anion Gap BUN Creatinine Estim Creat Clear Calc Estimated GFR POC Glucose 98 Random Glucose Calcium B-Natriuretic Peptide Progress Note: A&P Assessment and plan (1) Acute on chronic HFrEF (heart failure with reduced ejection fraction): Status: Acute Assessment and Plan: Acute exacerbation heart failure gradually improving. Continue aggressive diuresis as planned with current Lasix drip. Strict intake and output chart needs to be pursued. Uptitrate valsartan to 40 mg b.i.d.. Continue metoprolol therapy. Continue monitor BNP and BNP every day. Replace electrolytes as needed. If blood pressure remained stable will eventually switch him to Entresto therapy. Continue rhythm control approach which has helped his heart failure syndrome in the long run. Continue amiodarone therapy. Continue full oral anticoagulation. Agree with iron therapy. Out of bed to chair with incentive spirometry. Continue to stabilize his pulmonary function. Will follow with you Time Spent With Patient Time: Total time managing care of this patient today ____ minutes. Progress Note: Quality Stroke Does the patient have a stroke diagnosis?: No Procedures Date of Service Date of Service: 05/06/24
[2024-05-06] MEDS: Sodium Ferric Gluconat/Sucrose 125 MG in 0.9 % Sodium Chloride 100 ML 100 MG IV (10:24)
--- NOTE | 2024-05-06 11:37 | P.PNIM_ITS ---
Subjective Subjective Date of Service: 05/06/24 Interval History: Follow up for CHF, CMP No overnight events, was able to sleep well breathing improving, some improvement in leg edema but still with abdominal distention Review of Systems Review of Systems: Yes all other systems are reviewed and are negative Constitutional Constitutional: Denies chills and Denies fever(s) Cardiovascular Cardiovascular: Denies chest pain, Denies palpitations and Reports dyspnea Respiratory Respiratory: Denies cough and Reports dyspnea Gastrointestinal Gastrointestinal: Denies nausea and Denies vomiting Endocrine Endocrine: Denies palpitations Physical Exam 2 Vital Signs: Vital Signs: Last Vital Signs Temp 97.0 F 05/06/24 07:41 Pulse 66 05/06/24 07:41 Resp 20 05/06/24 07:41 BP 105/64 05/06/24 07:41 Pulse Ox 99 05/06/24 07:41 O2 Del Method Nasal Cannula 05/06/24 07:41 O2 Flow Rate 3 05/06/24 07:41 Oxygen Flow Rate 2 05/03/24 16:40 BMI result Body Mass Index 35.7 Appearing in no acute distress lung sounds are clear to auscultation heart regular rate rhythm, clear S1, S2 positive bowel sounds, abdomen is soft, nontender neuro patient is alert x3, no focal deficits Objective Data Active Medications Acetaminophen (Acetaminophen 325 Mg Tablet) 650 mg PO Q6H PRN PRN Reason: Pain, Mild (Pain Scale 1-3), fever or headache Last Admin: 05/04/24 03:37 Dose: 650 mg Documented By: FELICITAS Albuterol Sulfate (Albuterol Sulfate (0.083%) 2.5 Mg/3 Ml Vial.Neb) 2.5 mg INHALE Q6H PRN PRN Reason: Shortness Of Breath Or Wheezing Amiodarone HCl (Amiodarone Hcl 200 Mg Tablet) 200 mg PO DAILY [facility] Last Admin: 05/06/24 08:17 Dose: 200 mg Documented By: CHICA Apixaban (Apixaban 5 Mg Tablet) 5 mg PO BID [facility] Last Admin: 05/06/24 08:18 Dose: 5 mg Documented By: CHICA Aspirin (Aspirin Enteric Coated 81 Mg Tablet.) 81 mg PO DAILY [facility] Last Admin: 05/06/24 08:17 Dose: 81 mg Documented By: CHICA Calcium Carbonate (Calcium Carbonate 750 Mg Tab.Chew) 750 mg PO Q4H PRN PRN Reason: Heartburn Colchicine (Colchicine 0.6 Mg Tablet) 0.6 mg PO DAILY [facility] Last Admin: 05/06/24 08:17 Dose: 0.6 mg Documented By: CHICA Fluticasone/Vilanterol (Fluticasone/Vilanterol 100/25 Blst.W.Dev) 1 puff INHALE RDAILY [facility] Last Admin: 05/06/24 08:53 Dose: Not Given Documented By: DAVID Non-Admin Reason: Patient Refused Gabapentin (Gabapentin 300 Mg Capsule) 300 mg PO TID [facility] Last Admin: 05/06/24 08:17 Dose: 300 mg Documented By: CHICA Furosemide 200 mg/ Sodium (Chloride) 100 mls @ 2.5 mls/hr IVCONT .Q24H [facility] Last Admin: 05/05/24 22:40 Dose: 5 mg/hr, 2.5 mls/hr Documented By: WHITNEY Daptomycin 600 mg/ Sodium (Chloride) 62 mls @ 100 mls/hr IV Q24H [facility] Last Infusion: 05/06/24 09:00 Dose: Infused Documented By: SUSAN Insulin Glargine (Insulin Glargine,Hum.Rec.Anlog 100 Unit/Ml 10 Ml Vial) 15 unit SUBCUT BEDTIME [facility] Last Admin: 05/05/24 20:56 Dose: 15 unit Documented By: WHITNEY Insulin Human Lispro (Insulin Lispro 100 Unit/Ml 3 Ml Vial) 0 unit SUBCUT QIDACHS [facility]; Protocol Last Admin: 05/06/24 07:57 Dose: Not Given Documented By: SUSAN Non-Admin Reason: poc= 98 Isosorbide Dinitrate (Isosorbide Dinitrate 5 Mg Tablet) 5 mg PO 0800,1300,1800 [facility]; Protocol Last Admin: 05/06/24 08:17 Dose: 5 mg Documented By: CHICA Magnesium Hydroxide (Milk Of Magnesia 30 Ml Oral.Susp) 30 ml PO DAILY PRN PRN Reason: Constipation Melatonin (Melatonin 3 Mg Tablet) 6 mg PO BEDTIME PRN PRN Reason: Insomnia Last Admin: 05/04/24 03:37 Dose: 6 mg Documented By: HO.N-MURPE Meropenem (Meropenem 1 Gm Vial) 1 gm IVPUSH Q8H [facility] Last Admin: 05/06/24 08:20 Dose: 1 gm Documented By: CHICA Metoprolol Succinate (Metoprolol Succinate Er 25 Mg Tab.Er.24h) 25 mg PO DAILY [facility]; Protocol Last Admin: 05/06/24 08:17 Dose: 25 mg Documented By: CHICA Morphine Sulfate (Morphine Sulfate 2 Mg/Ml Cartridge) 2 mg IVPUSH Q4H PRN; Protocol PRN Reason: Pain, Severe (Pain Scale 7-10) Last Admin: 05/04/24 21:06 Dose: 2 mg Documented By: WHITNEY Omeprazole (Omeprazole 20 Mg Capsule.Dr) 20 mg PO DAILY@0630 [facility] Last Admin: 05/06/24 06:32 Dose: 20 mg Documented By: WHITNEY Ondansetron HCl (Ondansetron Hcl 4 Mg/2 Ml Vial) 4 mg IVPUSH Q8H PRN PRN Reason: Nausea and Vomiting Oxycodone HCl (Oxycodone Hcl Immed Release 5 Mg Tablet) 5 mg PO Q6H PRN PRN Reason: Pain, Moderate(Pain Scale 4-6) Last Admin: 05/06/24 08:28 Dose: 5 mg Documented By: CHICA Sertraline HCl (Sertraline Hcl 25 Mg Tablet) 25 mg PO DAILY [facility] Last Admin: 05/06/24 08:17 Dose: 25 mg Documented By: CHICA Sodium Chloride (0.9 % Sodium Chloride Flush 3 Ml Syringe) 3 ml IVFSH [facility] Last Admin: 05/06/24 08:29 Dose: 3 ml Documented By: CHICA Thiamine HCl (Thiamine Hcl 100 Mg Tablet) 100 mg PO DAILY [facility] Last Admin: 05/06/24 08:17 Dose: 100 mg Documented By: CHICA Valsartan (Valsartan 40 Mg Tablet) 20 mg PO BID [facility]; Protocol Last Admin: 05/06/24 08:17 Dose: 20 mg Documented By: CHICA Vitamin D (Cholecalciferol (Vitamin D3) 25 Mcg Tablet) 25 mcg PO DAILY [facility] Last Admin: 05/06/24 08:17 Dose: 25 mcg Documented By: CHICA Labs 05/03/24 17:34 05/06/24 06:46 Labs: Laboratory Results - last 24 hr 05/05/24 05/05/24 05/05/24 10:23 11:17 15:53 Anion Gap Estim Creat Clear Calc Estimated GFR POC Glucose 110 171 H Random Glucose Calcium B-Natriuretic Peptide 2667 H 05/05/24 05/06/24 05/06/24 20:38 06:46 07:01 Anion Gap 14 Estim Creat Clear Calc 85.5 Estimated GFR > 60 POC Glucose 153 H 98 Random Glucose 85 Calcium 9.0 B-Natriuretic Peptide 2175 H Assessment and Plan (1) Diabetic infection of left foot: Status: Acute (2) Acute on chronic HFrEF (heart failure with reduced ejection fraction): Status: Acute Plan A 58-year-old male with pertinent history of sCHF, diabetic foot infection on IV antibiotics, COPD, PAF on Eliquis, CAD status post PCI, KIMANI on CPAP, insulin- dependent diabetes mellitus, mood disorder, PAD among others who presents with Increase fluids and Dyspnea. Anasarca 2/2 Acute on chronic congestive heart failure with reduced ejection fraction EF 15-20% s/p AICD Continue Lasix drip Strict I's and O's. Low-salt diet, increase Protein intake DC Jardiance per cardiology rec last admission continue beta-lion increase valsartan to 40mg BID, transition to entreso if tolerates ARB Cardiology following follow daily BNP acute on chronic Iron def. anemia No evidence of bleeding , Low iron stores prev. negative occult last admission Start IV Iron, DC on PO supplement will need outpatient GI follow up for further eval Insulin-dependent diabetes mellitus with hyperglycemia basal plus insulin regimen ADA diet Diabetic foot infection with OM on IV Abx Wound care following On IV ertapenem and daptomycin until 05/14/2024 (change to Meropenem while inpt) Vascular eval appreciated, continue wound care, no surgical intervention needed at this point Peripheral arterial disease Previous arterial Dopplers showing delayed arterial upstroke. Outpatient follow-up with Dr. Chatman COPD Continue home inhalers KIMANI CPAP at bedtime CAD On aspirin. Not on statin Paroxysmal atrial fibrillation On amiodarone, beta-lion and Eliquis Mood disorder Continue home mood stabilizers DVT prophylaxis: [place] Attending Dr. Mlapah Full code The patient requires ongoing inpatient hospital stay for IV diuresis, close monitoring of volume status which is not possible in a lesser acute setting pending cardiology follow up Quality Stroke Does the patient have a stroke diagnosis?: No VTE Prior VTE?: No VTE Risk Level:: Medical - moderate - high VTE Device Contraindication: Treatment Not Indicated VTE Drug Contraindication: N/A - Med Ordered
[2024-05-06 11:46] LABS: Glucose, Whole Blood 143 mg/dL (60-115)
[2024-05-06 16:08] LABS: Glucose, Whole Blood 197 mg/dL (60-115)
[2024-05-06] MEDS: Insulin Lispro 100 UNIT/ML 3 ML VIAL SUBCUT (16:57)
--- NOTE | 2024-05-06 19:38 | PC.NURSE ---
Patient BP at 1530 was 87/60, manual recheck was 88/60, provider notified, provider ordered lasix drip hold and recheck BP in 30min, patient at that time requested pain medication, BP 30 min after lasix gtt stopped was 91/60 and was reported to provider. Evening dose of Isosorbide was held, provider advised to give oxycodone for pain and hold lasix gtt for one hr (reported to incoming RN to hold lasix until 1999)
[2024-05-06 20:38] LABS: Glucose, Whole Blood 146 mg/dL (60-115)
[2024-05-06] MEDS: Insulin Glargine,Hum.rec.anlog 100 UNIT/ML 10 ML VIAL 15 UNIT SUBCUT (22:03)
[2024-05-06] MEDS: Morphine Sulfate 2 MG/ML CARTRIDGE IVPUSH (22:30)
[2024-05-07] VITALS (8 sets, daily range): BP systolic 92–127; BP diastolic 41–65; PULSE 70–80; RESP 18–20; TEMP 36.2–37.3; O2SAT 92–98
[2024-05-07] MEDS: Meropenem 1 GM VIAL IVPUSH ×3 (00:48→17:07)
[2024-05-07] MEDS: Omeprazole 20 MG CAPSULE.DR PO (06:03)
[2024-05-07 06:50] LABS: Anion Gap 15 (12-20); Blood Urea Nitrogen 29 mg/dL (9-16); Calcium 8.8 mg/dL (8.4-10.2); Carbon Dioxide 32 mmol/L (22-29); Chloride 101 mmol/L (96-108); Creatinine Clr Calc Pharmacy 79.5; Estimated Glomerular Filt Rate 57; Glucose Random 96 mg/dL (60-115); Sodium 144 mmol/L (135-145)
[2024-05-07 06:56] LABS: B Type Natriuretic Peptide 1263 pg/mL (<100)
[2024-05-07 08:03] LABS: Glucose, Whole Blood 96 mg/dL (60-115)
--- NOTE | 2024-05-07 09:28 | HO.PM.IMPN ---
Subjective Subjective Date of Service: 05/07/24 Interval History: Follow up for CHF, CMP No overnight events, was able to sleep well breathing improving, some improvement in leg edema but still with abdominal distention Review of Systems Review of Systems: Yes all other systems are reviewed and are negative Constitutional Constitutional: Denies chills and Denies fever(s) Cardiovascular Cardiovascular: Denies chest pain, Denies palpitations and Reports dyspnea Respiratory Respiratory: Denies cough and Reports dyspnea Gastrointestinal Gastrointestinal: Denies nausea and Denies vomiting Endocrine Endocrine: Denies palpitations Physical Exam Vital Signs: Vital Signs: Last Vital Signs Temp 97.1 F 05/07/24 07:44 Pulse 75 05/07/24 07:44 Resp 19 05/07/24 07:44 BP 92/41 L 05/07/24 07:44 Pulse Ox 94 05/07/24 07:44 O2 Del Method Nasal Cannula 05/07/24 07:44 O2 Flow Rate 2 05/07/24 07:44 Oxygen Flow Rate 2 05/03/24 16:40 BMI result Body Mass Index 35.7 Appearing in no acute distress lung sounds are clear to auscultation heart regular rate rhythm, clear S1, S2 positive bowel sounds, abdomen is soft, nontender neuro patient is alert x3, no focal deficits Objective Data Active Medications Acetaminophen (Acetaminophen 325 Mg Tablet) 650 mg PO Q6H PRN PRN Reason: Pain, Mild (Pain Scale 1-3), fever or headache Last Admin: 05/04/24 03:37 Dose: 650 mg Documented By: FELICITAS Albuterol Sulfate (Albuterol Sulfate (0.083%) 2.5 Mg/3 Ml Vial.Neb) 2.5 mg INHALE Q6H PRN PRN Reason: Shortness Of Breath Or Wheezing Amiodarone HCl (Amiodarone Hcl 200 Mg Tablet) 200 mg PO DAILY [facility] Last Admin: 05/06/24 08:17 Dose: 200 mg Documented By: CHICA Apixaban (Apixaban 5 Mg Tablet) 5 mg PO BID [facility] Last Admin: 05/06/24 22:03 Dose: 5 mg Documented By: WHITNEY Aspirin (Aspirin Enteric Coated 81 Mg Tablet.) 81 mg PO DAILY [facility] Last Admin: 05/06/24 08:17 Dose: 81 mg Documented By: CHICA Calcium Carbonate (Calcium Carbonate 750 Mg Tab.Chew) 750 mg PO Q4H PRN PRN Reason: Heartburn Colchicine (Colchicine 0.6 Mg Tablet) 0.6 mg PO DAILY [facility] Last Admin: 05/06/24 08:17 Dose: 0.6 mg Documented By: CHICA Fluticasone/Vilanterol (Fluticasone/Vilanterol 100/25 Blst.W.Dev) 1 puff INHALE RDAILY [facility] Last Admin: 05/07/24 08:12 Dose: Not Given Documented By: MALAIKA Non-Admin Reason: Patient Refused Gabapentin (Gabapentin 300 Mg Capsule) 300 mg PO TID [facility] Last Admin: 05/06/24 22:03 Dose: 300 mg Documented By: WHITNEY Furosemide 200 mg/ Sodium (Chloride) 100 mls @ 2.5 mls/hr IVCONT .Q24H [facility] Last Admin: 05/06/24 21:03 Dose: Not Given Documented By: WHITNEY Non-Admin Reason: Physician Held Med Comments: Held per covering Dr. Jon Sullivan for soft BP Daptomycin 600 mg/ Sodium (Chloride) 62 mls @ 100 mls/hr IV Q24H [facility] Last Infusion: 05/06/24 09:00 Dose: Infused Documented By: SUSAN Insulin Glargine (Insulin Glargine,Hum.Rec.Anlog 100 Unit/Ml 10 Ml Vial) 15 unit SUBCUT BEDTIME [facility] Last Admin: 05/06/24 22:03 Dose: 15 unit Documented By: WHITNEY Insulin Human Lispro (Insulin Lispro 100 Unit/Ml 3 Ml Vial) 0 unit SUBCUT QIDACHS [facility]; Protocol Last Admin: 05/07/24 08:26 Dose: Not Given Documented By: ADRI Non-Admin Reason: No Insulin Coverage Isosorbide Dinitrate (Isosorbide Dinitrate 5 Mg Tablet) 5 mg PO 0800,1300,1800 [facility]; Protocol Last Admin: 05/06/24 18:38 Dose: Not Given Documented By: ADRI Non-Admin Reason: Decreased Blood Pressure Magnesium Hydroxide (Milk Of Magnesia 30 Ml Oral.Susp) 30 ml PO DAILY PRN PRN Reason: Constipation Melatonin (Melatonin 3 Mg Tablet) 6 mg PO BEDTIME PRN PRN Reason: Insomnia Last Admin: 05/04/24 03:37 Dose: 6 mg Documented By: FELICITAS Meropenem (Meropenem 1 Gm Vial) 1 gm IVPUSH Q8H [facility] Last Admin: 05/07/24 00:48 Dose: 1 gm Documented By: WHITNEY Metoprolol Succinate (Metoprolol Succinate Er 25 Mg Tab.Er.24h) 25 mg PO DAILY [facility]; Protocol Last Admin: 05/06/24 08:17 Dose: 25 mg Documented By: CHICA Morphine Sulfate (Morphine Sulfate 2 Mg/Ml Cartridge) 2 mg IVPUSH Q4H PRN; Protocol PRN Reason: Pain, Severe (Pain Scale 7-10) Last Admin: 05/06/24 22:30 Dose: 2 mg Documented By: ARTHUR Omeprazole (Omeprazole 20 Mg Capsule.Dr) 20 mg PO DAILY@0630 [facility] Last Admin: 05/07/24 06:03 Dose: 20 mg Documented By: WHITNEY Ondansetron HCl (Ondansetron Hcl 4 Mg/2 Ml Vial) 4 mg IVPUSH Q8H PRN PRN Reason: Nausea and Vomiting Oxycodone HCl (Oxycodone Hcl Immed Release 5 Mg Tablet) 5 mg PO Q6H PRN PRN Reason: Pain, Moderate(Pain Scale 4-6) Last Admin: 05/06/24 18:37 Dose: 5 mg Documented By: ADRI Sertraline HCl (Sertraline Hcl 25 Mg Tablet) 25 mg PO DAILY [facility] Last Admin: 05/06/24 08:17 Dose: 25 mg Documented By: CHICA Sodium Chloride (0.9 % Sodium Chloride Flush 3 Ml Syringe) 3 ml IVFLUSH QSHIFT [facility] Last Admin: 05/06/24 22:03 Dose: 3 ml Documented By: WHITNEY Thiamine HCl (Thiamine Hcl 100 Mg Tablet) 100 mg PO DAILY [facility] Last Admin: 05/06/24 08:17 Dose: 100 mg Documented By: CHICA Valsartan (Valsartan 40 Mg Tablet) 40 mg PO BID [facility]; Protocol Last Admin: 05/06/24 21:03 Dose: Not Given Documented By: WHITNEY Non-Admin Reason: Physician Held Med Comments: Held for Soft BPs recently per covering Dr. Jon james Vitamin D (Cholecalciferol (Vitamin D3) 25 Mcg Tablet) 25 mcg PO DAILY [facility] Last Admin: 05/06/24 08:17 Dose: 25 mcg Documented By: CHICA Labs 05/03/24 17:34 05/07/24 06:04 Labs: Laboratory Results - last 24 hr 05/06/24 05/06/24 05/06/24 11:24 16:05 20:34 Anion Gap Estim Creat Clear Calc Estimated GFR POC Glucose 143 H 197 H 146 H Random Glucose Calcium B-Natriuretic Peptide 05/07/24 05/07/24 05/07/24 06:04 06:05 07:59 Anion Gap 15 Estim Creat Clear Calc 79.5 Estimated GFR 57 POC Glucose 96 Random Glucose 96 Calcium 8.8 B-Natriuretic Peptide 1263 H Assessment and Plan (1) Diabetic infection of left foot: Status: Acute (2) Acute on chronic HFrEF (heart failure with reduced ejection fraction): Status: Acute Plan A 58-year-old male with pertinent history of sCHF, diabetic foot infection on IV antibiotics, COPD, PAF on Eliquis, CAD status post PCI, KIMANI on CPAP, insulin-dependent diabetes mellitus, mood disorder, PAD among others who presents with Increase fluids and Dyspnea. Anasarca 2/2 Acute on chronic congestive heart failure with reduced ejection fraction EF 15-20% s/p AICD Continue Lasix drip Strict I's and O's. Low-salt diet, increase Protein intake DC Jardiance per cardiology rec last admission continue beta-lion decrease valsartan back down to 20mg BID, transition to entreso if tolerates ARB Cardiology following follow daily BNP Acute on chronic Iron def. anemia No evidence of bleeding , Low iron stores negative occult last admission s/p IV Iron, DC on PO supplement will need outpatient GI follow up for further eval Insulin-dependent diabetes mellitus 2 with hyperglycemia basal plus insulin regimen ADA diet Diabetic foot infection with OM on IV Abx Wound care following On IV ertapenem and daptomycin until 05/14/2024 (change to Meropenem while inpt) Vascular eval appreciated>continue wound care, no surgical intervention needed at this point Peripheral arterial disease Previous arterial Dopplers showing delayed arterial upstroke. Outpatient follow-up with Dr. Chatman COPD Continue home inhalers KIMANI CPAP at bedtime CAD On aspirin. Not on statin Paroxysmal atrial fibrillation On amiodarone, beta-lion and Eliqujessa Mood disorder Continue home mood stabilizers DVT prophylaxis: [place] Attending Dr. Dave Full code The patient requires ongoing inpatient hospital stay for IV diuresis, close monitoring of volume status which is not possible in a lesser acute setting pending cardiology follow up Quality Stroke Does the patient have a stroke diagnosis?: No VTE Prior VTE?: No VTE Risk Level:: Medical - moderate - high VTE Device Contraindication: Treatment Not Indicated VTE Drug Contraindication: N/A - Med Ordered
--- NOTE | 2024-05-07 09:57 | PM.PNCARD ---
Subjective Subjective Date of Service: 05/07/24 Principal diagnosis: Decompensated congestive heart failure Interval history: Patient is breathing better but complains of continued exertional shortness of breath which is limiting him. Also complains of visual hallucinations. His BNP is trended down well. His blood pressure is on the low side. His Lasix was withheld since last night. Denies any other complaints. Remains in sinus rhythm Review of Systems Constitutional: Reports fatigue Cardiovascular: Denies lightheadedness, Denies Loss of Consciousness, Denies palpitations and Reports orthopnea Reports system reviewed and no additional complaints, except as documented Endocrine: Reports fatigue and Denies palpitations Physical Exam Vital Signs: Last Vital Signs Temp 97.1 F 05/07/24 07:44 Pulse 75 05/07/24 07:44 Resp 19 05/07/24 07:44 BP 92/41 L 05/07/24 07:44 Pulse Ox 94 05/07/24 07:44 O2 Del Method Nasal Cannula 05/07/24 07:44 O2 Flow Rate 2 05/07/24 07:44 Oxygen Flow Rate 2 05/03/24 16:40 BMI result Body Mass Index 35.7 Const General: cooperative, no acute distress, alert, awake, in distress moderate and respiratory and tired appearing Nutritional Appearance: obese Orientation/consciousness: patient oriented x3 Limitations: no limitations HEENT Head: Yes normocephalic and Yes atraumatic Neck Neck: Yes trachea midline, Yes supple and Yes JVD Resp Auscultation: rales and diminished lung sounds Cardio Jugular venous distension: JVD Palpation: abnormal PMI displaced PMI Rate: regular rate Rhythm: regular rhythm Heart sounds: S1 normal heart sound present, S2 normal heart sound present, no click, no gallops, no murmurs and no rubs GI Inspection: Yes distended Auscultation: normal bowel sounds Skin General skin exam: no rashes or lesions noted Neuro General: patient oriented x3 and no focal motor deficits Extrem General: No clubbing, No cyanosis and Yes edema Objective Labs and Meds 05/03/24 17:34 05/07/24 06:04 Lab results: Laboratory Results - last 24 hr 05/06/24 05/06/24 05/06/24 11: 16:05 20:34 Sodium Potassium Chloride Carbon Dioxide Anion Gap BUN Creatinine Estim Creat Clear Calc Estimated GFR POC Glucose 143 H 197 H 146 H Random Glucose Calcium B-Natriuretic Peptide 05/07/24 05/07/24 05/07/24 06:04 06:05 07:59 Sodium 144 Potassium 4.0 Chloride 101 Carbon Dioxide 32 H Anion Gap 15 BUN 29 H Creatinine 1.28 Estim Creat Clear Calc 79.5 Estimated GFR 57 POC Glucose 96 Random Glucose 96 Calcium 8.8 B-Natriuretic Peptide 1263 H Progress Note: A&P Assessment and plan (1) Acute on chronic HFrEF (heart failure with reduced ejection fraction): Status: Acute Assessment and Plan: Acute decompensation of systolic heart failure. Clinically improving gradually. Now the blood pressure is on the lower side. Discontinue Isordil and hold valsartan this morning. Change valsartan to 20 mg b.i.d. again. Continue strict intake and output chart. BNP is improving. Continue trend BNP and BNP. Creatinine is slightly on uptake. Will follow closely. Replace electrolytes. Unsure as to why he is getting visualized hallucinations. Consider arterial blood gas to evaluate for CO2 retention. Continue supportive care. Advise ambulation as tolerated. Out of bed to chair. Incentive spirometry. Continue rhythm control approach continue amiodarone therapy. Continue full oral anticoagulation. Will follow with you Time Spent With Patient Time: Total time managing care of this patient today ____ minutes. Progress Note: Quality Stroke Does the patient have a stroke diagnosis?: No Procedures Date of Service Date of Service: 05/07/24
[2024-05-07] MEDS: Furosemide 200 MG in 0.9 % Sodium Chloride 80 ML IVCONT ×2 (10:35→23:41)
[2024-05-07] MEDS: Colchicine 0.6 MG TABLET PO (10:36)
[2024-05-07] MEDS: Cholecalciferol (Vitamin D3) 25 MCG TABLET PO (10:37)
[2024-05-07] MEDS: Amiodarone HCL 200 MG TABLET PO (10:37)
[2024-05-07] MEDS: Apixaban 5 MG TABLET PO ×2 (10:37→20:51)
[2024-05-07] MEDS: Sertraline HCL 25 MG TABLET PO (10:37)
[2024-05-07] MEDS: Gabapentin 300 MG CAPSULE PO ×3 (10:37→20:51)
[2024-05-07] MEDS: Metoprolol Succinate ER 25 MG TAB.ER.24H PO (10:37)
[2024-05-07] MEDS: Aspirin Enteric Coated 81 MG TABLET.DR PO (10:37)
[2024-05-07] MEDS: Thiamine HCL 100 MG TABLET PO (10:38)
[2024-05-07 10:48] LABS: Venous Blood Gas Refer to POC result
[2024-05-07 10:49] LABS: VBG Base Excess 13.3 mmol/L; VBG HCO3 41 mmol/L (22-26); VBG pCO2 71 mmHg; VBG pH 7.36 (7.32-7.43); VBG pO2 56 mmHg
--- NOTE | 2024-05-07 11:00 | PC.NURSE ---
Due to low BPs remote sensing surveyor held valsartan and morning dose of isosorbide, per cardio lasix gtt restarted
[2024-05-07 12:13] LABS: Glucose, Whole Blood 99 mg/dL (60-115)
[2024-05-07] MEDS: DAPTOmycin 600 MG in 0.9 % Sodium Chloride 50 ML 100 MG IV (12:46)
[2024-05-07] MEDS: Isosorbide Dinitrate 5 MG TABLET PO ×2 (12:46→17:07)
[2024-05-07] MEDS: Morphine Sulfate 2 MG/ML CARTRIDGE IVPUSH ×3 (12:49→23:42)
[2024-05-07] MEDS: 0.9 % Sodium Chloride Flush 3 ML SYRINGE IVFLUSH (15:20)
[2024-05-07 16:33] LABS: Glucose, Whole Blood 106 mg/dL (60-115)
[2024-05-07] MEDS: oxyCODONE HCl Immed Release 5 MG TABLET PO (17:25)
--- NOTE | 2024-05-07 18:05 | PC.NURSE ---
Dressing to left foot changed per wound nurse order/recommendation, patient tolerated procedure well
[2024-05-07] MEDS: Insulin Glargine,Hum.rec.anlog 100 UNIT/ML 10 ML VIAL 15 UNIT SUBCUT (20:52)
[2024-05-07 20:54] LABS: Glucose, Whole Blood 135 mg/dL (60-115)
[2024-05-07] MEDS: Valsartan 40 MG TABLET 20 MG PO (21:27)
[2024-05-08 00:12] VITALS: RESP 18
[2024-05-08] MEDS: Meropenem 1 GM VIAL IVPUSH ×3 (01:53→18:28)
[2024-05-08] MEDS: 0.9 % Sodium Chloride Flush 3 ML SYRINGE IVFLUSH ×3 (01:59→14:51)
[2024-05-08 03:24] VITALS: BP 116/61; PULSE 70; RESP 18; TEMP 36.2; O2SAT 95
[2024-05-08] MEDS: oxyCODONE HCl Immed Release 5 MG TABLET PO (06:02)
[2024-05-08] MEDS: Omeprazole 20 MG CAPSULE.DR PO (06:02)
[2024-05-08 06:05] VITALS: BMI 33.4
[2024-05-08 06:11] LABS: VBG Base Excess 14.5 mmol/L; VBG HCO3 42 mmol/L (22-26); VBG pCO2 68 mmHg; VBG pH 7.39 (7.32-7.43); VBG pO2 70 mmHg
[2024-05-08 06:15] LABS: Venous Blood Gas Refer to POC result
[2024-05-08 06:31] LABS: B Type Natriuretic Peptide 2306 pg/mL (<100)
[2024-05-08 07:01] LABS: Glucose, Whole Blood 111 mg/dL (60-115)
[2024-05-08 07:13] VITALS: BP 115/65; PULSE 74; RESP 20; TEMP 36; O2SAT 100
[2024-05-08] MEDS: Valsartan 40 MG TABLET 20 MG PO ×2 (08:07→21:19)
[2024-05-08] MEDS: Gabapentin 300 MG CAPSULE PO ×3 (08:07→21:19)
[2024-05-08] MEDS: Sertraline HCL 25 MG TABLET PO (08:07)
[2024-05-08] MEDS: Cholecalciferol (Vitamin D3) 25 MCG TABLET PO (08:07)
[2024-05-08] MEDS: Isosorbide Dinitrate 5 MG TABLET PO ×3 (08:08→18:29)
[2024-05-08] MEDS: Amiodarone HCL 200 MG TABLET PO (08:08)
[2024-05-08] MEDS: Metoprolol Succinate ER 25 MG TAB.ER.24H PO (08:08)
[2024-05-08] MEDS: Thiamine HCL 100 MG TABLET PO (08:09)
[2024-05-08] MEDS: Apixaban 5 MG TABLET PO ×2 (08:09→21:19)
[2024-05-08] MEDS: Colchicine 0.6 MG TABLET PO (08:09)
[2024-05-08] MEDS: Morphine Sulfate 2 MG/ML CARTRIDGE IVPUSH ×2 (08:26→21:31)
[2024-05-08] MEDS: Aspirin Enteric Coated 81 MG TABLET.DR PO (08:39)
[2024-05-08 09:48] LABS: Anion Gap 9 (12-20); Blood Urea Nitrogen 32 mg/dL (9-16); Calcium 8.3 mg/dL (8.4-10.2); Carbon Dioxide 36 mmol/L (22-29); Chloride 101 mmol/L (96-108); Creatinine Clr Calc Pharmacy 84.1; Estimated Glomerular Filt Rate > 60; Glucose Random 126 mg/dL (60-115); Potassium 4.2 mmol/L (3.3-5.1); Sodium 142 mmol/L (135-145)
[2024-05-08 09:51] LABS: B Type Natriuretic Peptide 2240 pg/mL (<100)
--- NOTE | 2024-05-08 09:54 | HO.PM.IMPN ---
Subjective Subjective Date of Service: 05/08/24 Interval History: Follow up for CHF, CMP No overnight events, was able to sleep well breathing improving, some improvement in leg edema but still with abdominal distention Review of Systems Review of Systems: Yes all other systems are reviewed and are negative Constitutional Constitutional: Denies chills and Denies fever(s) Cardiovascular Cardiovascular: Denies chest pain, Denies palpitations and Reports dyspnea Respiratory Respiratory: Denies cough and Reports dyspnea Gastrointestinal Gastrointestinal: Denies nausea and Denies vomiting Endocrine Endocrine: Denies palpitations Physical Exam Vital Signs: Vital Signs: Last Vital Signs Temp 96.8 F 05/08/24 07:13 Pulse 74 05/08/24 07:13 Resp 20 05/08/24 07:13 BP 115/65 05/08/24 07:13 Pulse Ox 100 05/08/24 07:13 O2 Del Method CPAP 05/08/24 07:13 O2 Flow Rate 2 05/07/24 12:00 Oxygen Flow Rate 2 05/03/24 16:40 BMI result Body Mass Index 33.4 Objective Data Active Medications Acetaminophen (Acetaminophen 325 Mg Tablet) 650 mg PO Q6H PRN PRN Reason: Pain, Mild (Pain Scale 1-3), fever or headache Last Admin: 05/04/24 03:37 Dose: 650 mg Documented By: FELICITAS Albuterol Sulfate (Albuterol Sulfate (0.083%) 2.5 Mg/3 Ml Vial.Shakir) 2.5 mg INHALE Q6H PRN PRN Reason: Shortness Of Breath Or Wheezing Amiodarone HCl (Amiodarone Hcl 200 Mg Tablet) 200 mg PO DAILY [facility] Last Admin: 05/08/24 08:08 Dose: 200 mg Documented By: JOSE CRUZ Apixaban (Apixaban 5 Mg Tablet) 5 mg PO BID [facility] Last Admin: 05/08/24 08:09 Dose: 5 mg Documented By: JOSE CRUZ Aspirin (Aspirin Enteric Coated 81 Mg Tablet.) 81 mg PO DAILY [facility] Last Admin: 05/08/24 08:39 Dose: 81 mg Documented By: JOSE CRUZ Calcium Carbonate (Calcium Carbonate 750 Mg Tab.Chew) 750 mg PO Q4H PRN PRN Reason: Heartburn Colchicine (Colchicine 0.6 Mg Tablet) 0.6 mg PO DAILY [facility] Last Admin: 05/08/24 08:09 Dose: 0.6 mg Documented By: JOSE CRUZ Fluticasone/Vilanterol (Fluticasone/Vilanterol 100/25 Blst.W.Dev) 1 puff INHALE RDAILY [facility] Last Admin: 05/08/24 07:32 Dose: Not Given Documented By: DAVID Non-Admin Reason: Patient Refused Gabapentin (Gabapentin 300 Mg Capsule) 300 mg PO TID [facility] Last Admin: 05/08/24 08:07 Dose: 300 mg Documented By: JOSE CRUZ Furosemide 200 mg/ Sodium (Chloride) 100 mls @ 2.5 mls/hr IVCONT .Q24H [facility] Last Admin: 05/07/24 23:41 Dose: 5 mg/hr, 2.5 mls/hr Documented By: ALIE Daptomycin 600 mg/ Sodium (Chloride) 62 mls @ 100 mls/hr IV Q24H [facility] Insulin Glargine (Insulin Glargine,Hum.Rec.Anlog 100 Unit/Ml 10 Ml Vial) 15 unit SUBCUT BEDTIME [facility] Last Admin: 05/07/24 20:52 Dose: 15 unit Documented By: ROSA Insulin Human Lispro (Insulin Lispro 100 Unit/Ml 3 Ml Vial) 0 unit SUBCUT QIDACHS [facility]; Protocol Last Admin: 05/08/24 07:56 Dose: Not Given Documented By: JOSE CRUZ Non-Admin Reason: No Insulin Coverage Isosorbide Dinitrate (Isosorbide Dinitrate 5 Mg Tablet) 5 mg PO 0800,1300,1800 [facility]; Protocol Last Admin: 05/08/24 08:08 Dose: 5 mg Documented By: JOSE CRUZ Magnesium Hydroxide (Milk Of Magnesia 30 Ml Oral.Susp) 30 ml PO DAILY PRN PRN Reason: Constipation Melatonin (Melatonin 3 Mg Tablet) 6 mg PO BEDTIME PRN PRN Reason: Insomnia Last Admin: 05/04/24 03:37 Dose: 6 mg Documented By: REJI-ANNAMARIEPE Meropenem (Meropenem 1 Gm Vial) 1 gm IVPUSH Q8H [facility] Last Admin: 05/08/24 08:09 Dose: 1 gm Documented By: JOSE CRUZ Metoprolol Succinate (Metoprolol Succinate Er 25 Mg Tab.Er.24h) 25 mg PO DAILY [facility]; Protocol Last Admin: 05/08/24 08:08 Dose: 25 mg Documented By: JOSE CRUZ Morphine Sulfate (Morphine Sulfate 2 Mg/Ml Cartridge) 2 mg IVPUSH Q4H PRN; Protocol PRN Reason: Pain, Severe (Pain Scale 7-10) Last Admin: 05/08/24 08:26 Dose: 2 mg Documented By: JOSE CRUZ Omeprazole (Omeprazole 20 Mg Capsule.Dr) 20 mg PO DAILY@0630 [facility] Last Admin: 05/08/24 06:02 Dose: 20 mg Documented By: ALIE Ondansetron HCl (Ondansetron Hcl 4 Mg/2 Ml Vial) 4 mg IVPUSH Q8H PRN PRN Reason: Nausea and Vomiting Oxycodone HCl (Oxycodone Hcl Immed Release 5 Mg Tablet) 5 mg PO Q6H PRN PRN Reason: Pain, Moderate(Pain Scale 4-6) Last Admin: 05/08/24 06:02 Dose: 5 mg Documented By: ALIE Sertraline HCl (Sertraline Hcl 25 Mg Tablet) 25 mg PO DAILY [facility] Last Admin: 05/08/24 08:07 Dose: 25 mg Documented By: JOSE CRUZ Sodium Chloride (0.9 % Sodium Chloride Flush 3 Ml Syringe) [facility] Admin: 05/08/24 08:06 Dose: 3 ml Documented By: JOSE CRUZ Thiamine HCl (Thiamine Hcl 100 Mg Tablet) 100 mg PO DAILY [facility] Last Admin: 05/08/24 08:09 Dose: 100 mg Documented By: JOSE CRUZ Valsartan (Valsartan 40 Mg Tablet) 20 mg PO BID [facility]; Protocol Last Admin: 05/08/24 08:07 Dose: 20 mg Documented By: JOSE CRUZ Vitamin D (Cholecalciferol (Vitamin D3) 25 Mcg Tablet) 25 mcg PO DAILY [facility] Last Admin: 05/08/24 08:07 Dose: 25 mcg Documented By: JOSE CRUZ Labs 05/03/24 17:34 05/08/24 08:57 Labs: Laboratory Results - last 24 hr 05/07/24 05/07/24 05/07/24 10:38 12:10 16:29 VBG pH 7.36 VBG pCO2 71 VBG pO2 56 VBG HCO3 41 H VBG O2 Saturation 82.0 VBG Base Excess 13.3 Anion Gap Estim Creat Clear Calc Estimated GFR POC Glucose 99 106 Random Glucose Calcium B-Natriuretic Peptide 05/07/24 05/08/24 05/08/24 20:50 05:59 06:07 VBG pH 7.39 VBG pCO2 68 VBG pO2 70 VBG HCO3 42 H VBG O2 Saturation 92.0 VBG Base Excess 14.5 Anion Gap Estim Creat Clear Calc Estimated GFR POC Glucose 135 H Random Glucose Calcium B-Natriuretic Peptide 2306 H 05/08/24 05/08/24 06:57 08:57 VBG pH VBG pCO2 VBG pO2 VBG HCO3 VBG O2 Saturation VBG Base Excess Anion Gap 9 L Estim Creat Clear Calc 84.1 Estimated GFR > 60 POC Glucose 111 Random Glucose 126 H Calcium 8.3 L B-Natriuretic Peptide 2240 H Assessment and Plan (1) Diabetic infection of left foot: Status: Acute (2) Acute on chronic HFrEF (heart failure with reduced ejection fraction): Status: Acute Plan A 58-year-old male with pertinent history of sCHF, diabetic foot infection on IV antibiotics, COPD, PAF on Eliquis, CAD status post PCI, KIMANI on CPAP, insulin-dependent diabetes mellitus, mood disorder, PAD among others who presents with Increase fluids and Dyspnea. Anasarca 2/2 Acute on chronic congestive heart failure with reduced ejection fraction EF 15-20% s/p AICD Continue Lasix drip Strict I's and O's. Low-salt diet, increase Protein intake DC Jardiance per cardiology rec last admission continue beta-lion decrease valsartan back down to 20mg BID, transition to entreso if tolerates ARB Cardiology following follow daily BNP neg 2083ml Acute on chronic Iron def. anemia No evidence of bleeding , Low iron stores negative occult last admission s/p IV Iron, DC on PO supplement will need outpatient GI follow up for further eval Insulin-dependent diabetes mellitus 2 with hyperglycemia basal plus insulin regimen ADA diet Diabetic foot infection with OM on IV Abx Wound care following On IV ertapenem and daptomycin until 05/14/2024 (change to Meropenem while inpt) Vascular eval appreciated>continue wound care, no surgical intervention needed at this point Peripheral arterial disease Previous arterial Dopplers showing delayed arterial upstroke. Outpatient follow-up with Dr. Chatman COPD Continue home inhalers KIMANI CPAP at bedtime CAD On aspirin. Not on statin Paroxysmal atrial fibrillation On amiodarone, beta-lion and Eliquis Mood disorder Continue home mood stabilizers DVT prophylaxis: [place] Attending Dr. Jenkins Full code The patient requires ongoing inpatient hospital stay for IV diuresis, close monitoring of volume status which is not possible in a lesser acute setting pending cardiology follow up Quality Stroke Does the patient have a stroke diagnosis?: No VTE Prior VTE?: No VTE Risk Level:: Medical - moderate - high VTE Device Contraindication: Treatment Not Indicated VTE Drug Contraindication: N/A - Med Ordered
[2024-05-08 10:55] LABS: Glucose, Whole Blood 125 mg/dL (60-115)
[2024-05-08 10:59] VITALS: BP 102/61; PULSE 63; RESP 20; TEMP 36.3; O2SAT 97
[2024-05-08] MEDS: DAPTOmycin 600 MG in 0.9 % Sodium Chloride 50 ML 100 MG IV (13:01)
--- NOTE | 2024-05-08 13:29 | PM.PNCARD ---
Subjective Subjective Date of Service: 05/08/24 Principal diagnosis: Decompensated congestive heart failure Interval history: Seen examined at bedside. He was sleeping with CPAP on. Saying that breathing is somewhat better but still short of breath. Physical Exam Vital Signs: Last Vital Signs Temp 97.3 F 05/08/24 10:59 Pulse 63 05/08/24 10:59 Resp 20 05/08/24 10:59 BP 102/61 05/08/24 10:59 Pulse Ox 97 05/08/24 10:59 O2 Del Method CPAP 05/08/24 10:59 O2 Flow Rate 2 05/07/24 12:00 Oxygen Flow Rate 2 05/03/24 16:40 BMI result Body Mass Index 33.4 GENERAL APPEARANCE: in no acute distress, pleasant. NECK: no carotid bruit, ++ jugular venous distention. SKIN: no suspicious lesions, warm and dry. HEART: no murmurs, regular rate and rhythm. LUNGS: Bilateral crackles. Also some expiratory wheezes. ABDOMEN: soft, nontender. EXTREMITIES: + edema. NEUROLOGIC: No gross deficits, AAO X 3 Objective Labs and Meds 05/03/24 17:34 05/08/24 08:57 Lab results: Laboratory Results - last 24 hr 05/07/24 05/07/24 05/08/24 16:29 20:50 05:59 VBG pH VBG pCO2 VBG pO2 VBG HCO3 VBG O2 Saturation VBG Base Excess Sodium Potassium Chloride Carbon Dioxide Anion Gap BUN Creatinine Estim Creat Clear Calc Estimated GFR POC Glucose 106 135 H Random Glucose Calcium B-Natriuretic Peptide 2306 H 05/08/24 05/08/24 05/08/24 06:07 06:57 08:57 VBG pH 7.39 VBG pCO2 68 VBG pO2 70 VBG HCO3 42 H VBG O2 Saturation 92.0 VBG Base Excess 14.5 Sodium 142 Potassium 4.2 Chloride 101 Carbon Dioxide 36 H Anion Gap 9 L BUN 32 H Creatinine 1.17 Estim Creat Clear Calc 84.1 Estimated GFR > 60 POC Glucose 111 Random Glucose 126 H Calcium 8.3 L B-Natriuretic Peptide 2240 H 05/08/24 10:51 VBG pH VBG pCO2 VBG pO2 VBG HCO3 VBG O2 Saturation VBG Base Excess Sodium Potassium Chloride Carbon Dioxide Anion Gap BUN Creatinine Estim Creat Clear Calc Estimated GFR POC Glucose 125 H Random Glucose Calcium B-Natriuretic Peptide Progress Note: A&P Assessment and plan (1) Acute on chronic HFrEF (heart failure with reduced ejection fraction): Status: Acute Plan Pleasant 58 year gentleman with advanced acute on chronic congestive heart failure with multiple admissions with congestive heart failure. Clinically volume overloaded. Continue the Lasix drip. Start spironolactone 25 mg daily. Add Jardiance 10 mg daily. Continue amiodarone and Eliquis as before. Continues to be in sinus rhythm at this point. Monitor I's and O's closely and aim for negative 1500 cc over the next 24 hours. If urine output is not picking up then increase the Lasix drip to 7 mg daily. He is on daptomycin for foot infection. Continue the antibiotics as before. We will follow along with you. Thank you for allowing me to participate in the care of your patient. Please feel free to contact me if you have any questions. Time Spent With Patient Time: Total time managing care of this patient today ____ minutes. Progress Note: Quality Stroke Does the patient have a stroke diagnosis?: No Procedures Date of Service Date of Service: 05/08/24
--- NOTE | 2024-05-08 13:38 | MHC.CM.PN ---
EMR reviewed and per MD rounds, pt is not medically cleared for discharge due to management of CHF and osteomyelitis.
[2024-05-08] MEDS: Spironolactone 25 MG TABLET PO (14:51)
[2024-05-08 15:32] VITALS: BP 108/64; PULSE 67; RESP 20; TEMP 36.3; O2SAT 94
[2024-05-08 16:06] LABS: Glucose, Whole Blood 154 mg/dL (60-115)
[2024-05-08] MEDS: Insulin Lispro 100 UNIT/ML 3 ML VIAL SUBCUT ×2 (17:05→21:20)
[2024-05-08 19:13] VITALS: BP 105/55; PULSE 65; RESP 20; TEMP 36.3; O2SAT 97
[2024-05-08 20:23] LABS: Glucose, Whole Blood 169 mg/dL (60-115)
[2024-05-08] MEDS: Insulin Glargine,Hum.rec.anlog 100 UNIT/ML 10 ML VIAL 15 UNIT SUBCUT (21:20)
[2024-05-08] MEDS: Furosemide 200 MG in 0.9 % Sodium Chloride 80 ML IVCONT (21:31)
[2024-05-09] VITALS (12 sets, daily range): BP systolic 95–118; BP diastolic 51–67; PULSE 64–114; RESP 14–21; TEMP 35.9–37.2; O2SAT 91–99
[2024-05-09] MEDS: Meropenem 1 GM VIAL IVPUSH ×3 (00:10→16:56)
[2024-05-09] MEDS: 0.9 % Sodium Chloride Flush 3 ML SYRINGE IVFLUSH ×3 (00:10→16:08)
[2024-05-09] MEDS: oxyCODONE HCl Immed Release 5 MG TABLET PO ×2 (00:20→09:05)
[2024-05-09] MEDS: Omeprazole 20 MG CAPSULE.DR PO (06:41)
[2024-05-09] MEDS: Morphine Sulfate 2 MG/ML CARTRIDGE IVPUSH ×2 (06:42→11:07)
[2024-05-09 07:17] LABS: Glucose, Whole Blood 105 mg/dL (60-115)
[2024-05-09] MEDS: Fluticasone/Vilanterol 100/25 BLST.W.DEV 1 PUFF INHALE (07:34)
[2024-05-09] MEDS: Colchicine 0.6 MG TABLET PO (09:05)
[2024-05-09] MEDS: Valsartan 40 MG TABLET 20 MG PO ×2 (09:05→20:05)
[2024-05-09] MEDS: Metoprolol Succinate ER 25 MG TAB.ER.24H PO (09:06)
[2024-05-09] MEDS: Apixaban 5 MG TABLET PO ×2 (09:06→20:07)
[2024-05-09] MEDS: Amiodarone HCL 200 MG TABLET PO (09:06)
[2024-05-09] MEDS: Thiamine HCL 100 MG TABLET PO (09:06)
[2024-05-09] MEDS: Aspirin Enteric Coated 81 MG TABLET.DR PO (09:06)
[2024-05-09] MEDS: Sertraline HCL 25 MG TABLET PO (09:06)
[2024-05-09] MEDS: Isosorbide Dinitrate 5 MG TABLET PO (09:06)
[2024-05-09] MEDS: Gabapentin 300 MG CAPSULE PO ×3 (09:06→20:07)
[2024-05-09] MEDS: Cholecalciferol (Vitamin D3) 25 MCG TABLET PO (09:07)
[2024-05-09] MEDS: Spironolactone 25 MG TABLET PO ×2 (09:07→17:08)
[2024-05-09 09:56] LABS: B Type Natriuretic Peptide 2128 pg/mL (<100)
[2024-05-09 10:00] LABS: Anion Gap 8 (12-20); Blood Urea Nitrogen 38 mg/dL (9-16); Calcium 8.3 mg/dL (8.4-10.2); Carbon Dioxide 37 mmol/L (22-29); Chloride 103 mmol/L (96-108); Creatinine Clr Calc Pharmacy 102.6; Estimated Glomerular Filt Rate > 60; Glucose Random 91 mg/dL (60-115); Potassium 4.1 mmol/L (3.3-5.1); Sodium 144 mmol/L (135-145)
--- NOTE | 2024-05-09 10:31 | P.PNIM_ITS ---
Subjective Subjective Date of Service: 05/09/24 Interval History: Follow up for CHF, CMP No overnight events, was able to sleep well breathing improving, some improvement in leg edema but still with abdominal distention Review of Systems Review of Systems: Yes all other systems are reviewed and are negative Constitutional Constitutional: Denies chills and Denies fever(s) Cardiovascular Cardiovascular: Denies chest pain, Denies palpitations and Reports dyspnea Respiratory Respiratory: Denies cough and Reports dyspnea Gastrointestinal Gastrointestinal: Denies nausea and Denies vomiting Endocrine Endocrine: Denies palpitations Physical Exam 2 Vital Signs: Vital Signs: Last Vital Signs Temp 98.1 F 05/09/24 07:28 Pulse 114 H 05/09/24 09:06 Resp 18 05/09/24 07:39 BP 110/67 05/09/24 07:28 Pulse Ox 95 05/09/24 07:28 O2 Del Method Nasal Cannula 05/09/24 07:28 O2 Flow Rate 2 05/09/24 07:28 Oxygen Flow Rate 2 05/03/24 16:40 BMI result Body Mass Index 33.4 Appearing in no acute distress lung sounds are clear to auscultation heart regular rate rhythm, clear S1, S2 positive bowel sounds, abdomen is soft, nontender neuro patient is alert x3, no focal deficits Objective Data Active Medications Acetaminophen (Acetaminophen 325 Mg Tablet) 650 mg PO Q6H PRN PRN Reason: Pain, Mild (Pain Scale 1-3), fever or headache Last Admin: 05/04/24 03:37 Dose: 650 mg Documented By: FELICITAS Albuterol Sulfate (Albuterol Sulfate (0.083%) 2.5 Mg/3 Ml Vial.Neb) 2.5 mg INHALE Q6H PRN PRN Reason: Shortness Of Breath Or Wheezing Amiodarone HCl (Amiodarone Hcl 200 Mg Tablet) 200 mg PO DAILY [facility] Last Admin: 05/09/24 09:06 Dose: 200 mg Documented By: ROSA Apixaban (Apixaban 5 Mg Tablet) 5 mg PO BID [facility] Last Admin: 05/09/24 09:06 Dose: 5 mg Documented By: ROSA Aspirin (Aspirin Enteric Coated 81 Mg Tablet.) 81 mg PO DAILY [facility] Last Admin: 05/09/24 09:06 Dose: 81 mg Documented By: ROSA Calcium Carbonate (Calcium Carbonate 750 Mg Tab.Chew) 750 mg PO Q4H PRN PRN Reason: Heartburn Colchicine (Colchicine 0.6 Mg Tablet) 0.6 mg PO DAILY [facility] Last Admin: 05/09/24 09:05 Dose: 0.6 mg Documented By: ROSA Fluticasone/Vilanterol (Fluticasone/Vilanterol 100/25 Blst.W.Dev) 1 puff INHALE RDAILY [facility] Last Admin: 05/09/24 07:34 Dose: 1 puff Documented By: ABA Gabapentin (Gabapentin 300 Mg Capsule) 300 mg PO TID [facility] Last Admin: 05/09/24 09:06 Dose: 300 mg Documented By: ROSA Furosemide 200 mg/ Sodium (Chloride) 100 mls @ 2.5 mls/hr IVCONT .Q24H [facility] Last Admin: 05/08/24 21:31 Dose: 5 mg/hr, 2.5 mls/hr Documented By: ALIE Daptomycin 600 mg/ Sodium (Chloride) 62 mls @ 100 mls/hr IV Q24H [facility] Last Infusion: 05/08/24 13:40 Dose: Infused Documented By: JOSE CRUZ Insulin Glargine (Insulin Glargine,Hum.Rec.Anlog 100 Unit/Ml 10 Ml Vial) 15 unit SUBCUT BEDTIME [facility] Last Admin: 05/08/24 21:20 Dose: 15 unit Documented By: ALIE Insulin Human Lispro (Insulin Lispro 100 Unit/Ml 3 Ml Vial) 0 unit SUBCUT QIDACHS [facility]; Protocol Last Admin: 05/09/24 07:20 Dose: Not Given Documented By: ROSA Non-Admin Reason: No Insulin Coverage Isosorbide Dinitrate (Isosorbide Dinitrate 5 Mg Tablet) 5 mg PO 0800,1300,1800 [facility]; Protocol Last Admin: 05/09/24 09:06 Dose: 5 mg Documented By: ROSA Magnesium Hydroxide (Milk Of Magnesia 30 Ml Oral.Susp) 30 ml PO DAILY PRN PRN Reason: Constipation Melatonin (Melatonin 3 Mg Tablet) 6 mg PO BEDTIME PRN PRN Reason: Insomnia Last Admin: 05/04/24 03:37 Dose: 6 mg Documented By: REJI-SHANIA Meropenem (Meropenem 1 Gm Vial) 1 gm IVPUSH Q8H [facility] Last Admin: 05/09/24 09:05 Dose: 1 gm Documented By: ROSA Metoprolol Succinate (Metoprolol Succinate Er 25 Mg Tab.Er.24h) 25 mg PO DAILY [facility]; Protocol Last Admin: 05/09/24 09:06 Dose: 25 mg Documented By: ROSA Morphine Sulfate (Morphine Sulfate 2 Mg/Ml Cartridge) 2 mg IVPUSH Q4H PRN; Protocol PRN Reason: Pain, Severe (Pain Scale 7-10) Last Admin: 05/09/24 06:42 Dose: 2 mg Documented By: ALIE Omeprazole (Omeprazole 20 Mg Capsule.Dr) 20 mg PO DAILY@0630 [facility] Last Admin: 05/09/24 06:41 Dose: 20 mg Documented By: ALIE Ondansetron HCl (Ondansetron Hcl 4 Mg/2 Ml Vial) 4 mg IVPUSH Q8H PRN PRN Reason: Nausea and Vomiting Oxycodone HCl (Oxycodone Hcl Immed Release 5 Mg Tablet) 5 mg PO Q6H PRN PRN Reason: Pain, Moderate(Pain Scale 4-6) Last Admin: 05/09/24 09:05 Dose: 5 mg Documented By: ROSA Sertraline HCl (Sertraline Hcl 25 Mg Tablet) 25 mg PO DAILY [facility] Last Admin: 05/09/24 09:06 Dose: 25 mg Documented By: ROSA Sodium Chloride (0.9 % Sodium Chloride Flush 3 Ml Syringe) [facility] Last Admin: 05/09/24 09:07 Dose: 3 ml Documented By: ROSA Spironolactone (Spironolactone 25 Mg Tablet) 25 mg PO DAILY [facility]; Protocol Last Admin: 05/09/24 09:07 Dose: 25 mg Documented By: ROSA Thiamine HCl (Thiamine Hcl 100 Mg Tablet) 100 mg PO DAILY [facility] Last Admin: 05/09/24 09:06 Dose: 100 mg Documented By: ROSA Valsartan (Valsartan 40 Mg Tablet) 20 mg PO BID [facility]; Protocol Last Admin: 05/09/24 09:05 Dose: 20 mg Documented By: ROSA Vitamin D (Cholecalciferol (Vitamin D3) 25 Mcg Tablet) 25 mcg PO DAILY [facility] Last Admin: 05/09/24 09:07 Dose: 25 mcg Documented By: ROSA Labs 05/03/24 17:34 05/09/24 07:57 Labs: Laboratory Results - last 24 hr 05/08/24 05/08/24 05/08/24 10:51 16:02 20:10 Anion Gap Estim Creat Clear Calc Estimated GFR POC Glucose 125 H 154 H 169 H Random Glucose Calcium B-Natriuretic Peptide 05/09/24 05/09/24 07:13 07:57 Anion Gap 8 L Estim Creat Clear Calc 102.6 Estimated GFR > 60 POC Glucose 105 Random Glucose 91 Calcium 8.3 L B-Natriuretic Peptide 2128 H Assessment and Plan (1) Diabetic infection of left foot: Status: Acute (2) Acute on chronic HFrEF (heart failure with reduced ejection fraction): Status: Acute Plan A 58-year-old male with pertinent history of sCHF, diabetic foot infection on IV antibiotics, COPD, PAF on Eliquis, CAD status post PCI, KIMANI on CPAP, insulin- dependent diabetes mellitus, mood disorder, PAD among others who presents with Increase fluids and Dyspnea. Anasarca 2/2 Acute on chronic congestive heart failure with reduced ejection fraction EF 15-20% s/p AICD Strict I's and O's. Low-salt diet, increase Protein intake stopped beta-lion and isordil decrease valsartan back down to 20mg BID due to hypotension, transition to entreso if tolerates ARB Cardiology following> Continue Lasix drip 10/hr neg 1.7L Acute on chronic Iron def. anemia No evidence of bleeding , Low iron stores negative occult last admission s/p IV Iron, DC on PO supplement will need outpatient GI follow up for further eval Insulin-dependent diabetes mellitus 2 with hyperglycemia basal plus insulin regimen ADA diet Diabetic foot infection with OM on IV Abx Wound care following On IV ertapenem and daptomycin until 05/14/2024 (change to Meropenem while inpt) Vascular eval appreciated>continue wound care, no surgical intervention needed at this point Peripheral arterial disease Previous arterial Dopplers showing delayed arterial upstroke. Outpatient follow-up with Dr. Chatman COPD Continue home inhalers KIMANI CPAP at bedtime CAD On aspirin. Not on statin Paroxysmal atrial fibrillation On amiodarone and Eliquis Mood disorder Continue home mood stabilizers DVT prophylaxis: [place] Attending Dr. Jenkins Full code The patient requires ongoing inpatient hospital stay for IV diuresis, close monitoring of volume status which is not possible in a lesser acute setting pending cardiology follow up Quality Stroke Does the patient have a stroke diagnosis?: No VTE Prior VTE?: No VTE Risk Level:: Medical - moderate - high VTE Device Contraindication: Treatment Not Indicated VTE Drug Contraindication: N/A - Med Ordered
[2024-05-09 11:05] LABS: Glucose, Whole Blood 100 mg/dL (60-115)
--- NOTE | 2024-05-09 12:19 | PM.PNCARD ---
Subjective Subjective Date of Service: 05/09/24 Principal diagnosis: Decompensated congestive heart failure Interval history: Seen examined at bedside. Feeling somewhat better compared to yesterday. Significantly volume overloaded with abdominal ascites as well as abdominal wall edema. Physical Exam Vital Signs: Last Vital Signs Temp 98.9 F 05/09/24 11:04 Pulse 80 05/09/24 11:04 Resp 16 05/09/24 11:04 BP 107/62 05/09/24 11:04 Pulse Ox 92 05/09/24 11:04 O2 Del Method Nasal Cannula 05/09/24 11:04 O2 Flow Rate 2 05/09/24 11:04 Oxygen Flow Rate 2 05/03/24 16:40 BMI result Body Mass Index 33.4 GENERAL APPEARANCE: in no acute distress, pleasant. NECK: no carotid bruit, ++ jugular venous distention. SKIN: no suspicious lesions, warm and dry. HEART: no murmurs, regular rate and rhythm. LUNGS: Bilateral crackles. Also some expiratory wheezes. ABDOMEN: soft, nontender. Abdominal ascites abdominal wall edema. EXTREMITIES: + + edema. NEUROLOGIC: No gross deficits, AAO X 3 Objective Labs and Meds 05/03/24 17:34 05/09/24 07:57 Lab results: Laboratory Results - last 24 hr 05/08/24 05/08/24 05/09/24 16:02 20:10 07:13 Sodium Potassium Chloride Carbon Dioxide Anion Gap BUN Creatinine Estim Creat Clear Calc Estimated GFR POC Glucose 154 H 169 H 105 Random Glucose Calcium B-Natriuretic Peptide 05/09/24 05/09/24 07:57 10:49 Sodium 144 Potassium 4.1 Chloride 103 Carbon Dioxide 37 H Anion Gap 8 L BUN 38 H Creatinine 0.96 Estim Creat Clear Calc 102.6 Estimated GFR > 60 POC Glucose 100 Random Glucose 91 Calcium 8.3 L B-Natriuretic Peptide 2128 H Progress Note: A&P Assessment and plan (1) Acute on chronic HFrEF (heart failure with reduced ejection fraction): Status: Acute Plan [age] year gentleman with biventricular heart failure who is significantly volume overloaded currently. He also has diabetic infection of left foot and he is on daptomycin. He has been on Lasix drip 5 milligram/hour. Increase it to 10 milligram/hour. Stop the Toprol-XL and isosorbide dinitrate. Blood pressure has been soft and I think that is 1 of the factors affecting aggressive diuresis but I think we need to increase diuretic dose as he is significantly volume overloaded. He has more right-sided failure currently. Continue amiodarone and Eliquis as before. Increase spironolactone to 25 mg twice a day. We will follow along with you. Thank you for allowing me to participate in the care of your patient. Please feel free to contact me if you have any questions. Time Spent With Patient Time: Total time managing care of this patient today ____ minutes. Progress Note: Quality Stroke Does the patient have a stroke diagnosis?: No Procedures Date of Service Date of Service: 05/09/24
[2024-05-09] MEDS: DAPTOmycin 600 MG in 0.9 % Sodium Chloride 50 ML 100 MG IV (13:40)
[2024-05-09 16:36] LABS: Glucose, Whole Blood 171 mg/dL (60-115)
[2024-05-09] MEDS: Insulin Lispro 100 UNIT/ML 3 ML VIAL SUBCUT (16:46)
[2024-05-09 20:08] LABS: Glucose, Whole Blood 149 mg/dL (60-115)
[2024-05-09] MEDS: Insulin Glargine,Hum.rec.anlog 100 UNIT/ML 10 ML VIAL 15 UNIT SUBCUT (20:13)
[2024-05-09] MEDS: Furosemide 200 MG in 0.9 % Sodium Chloride 80 ML IVCONT (22:10)
[2024-05-10] VITALS (11 sets, daily range): BP systolic 109–118; BP diastolic 53–76; PULSE 75–88; RESP 16–21; TEMP 35.9–36.7; O2SAT 90–95; BMI 34.5
[2024-05-10] MEDS: Meropenem 1 GM VIAL IVPUSH ×3 (00:59→17:30)
[2024-05-10] MEDS: 0.9 % Sodium Chloride Flush 3 ML SYRINGE IVFLUSH ×3 (00:59→20:30)
[2024-05-10] MEDS: oxyCODONE HCl Immed Release 5 MG TABLET PO ×3 (01:12→17:36)
[2024-05-10] MEDS: Omeprazole 20 MG CAPSULE.DR PO (05:59)
[2024-05-10 06:51] LABS: B Type Natriuretic Peptide 2506 pg/mL (<100)
[2024-05-10 06:55] LABS: Glucose, Whole Blood 57 mg/dL (60-115)
[2024-05-10 07:09] LABS: Anion Gap 13 (12-20); Blood Urea Nitrogen 37 mg/dL (9-16); Calcium 8.7 mg/dL (8.4-10.2); Carbon Dioxide 28 mmol/L (22-29); Chloride 104 mmol/L (96-108); Creatinine Clr Calc Pharmacy 112.4; Estimated Glomerular Filt Rate > 60; Potassium 4.3 mmol/L (3.3-5.1); Sodium 141 mmol/L (135-145)
[2024-05-10 07:16] LABS: Glucose Random 58 mg/dL (60-115)
[2024-05-10 07:33] LABS: Glucose, Whole Blood 96 mg/dL (60-115)
[2024-05-10] MEDS: Colchicine 0.6 MG TABLET PO (09:14)
[2024-05-10] MEDS: Sertraline HCL 25 MG TABLET PO (09:14)
[2024-05-10] MEDS: Cholecalciferol (Vitamin D3) 25 MCG TABLET PO (09:15)
[2024-05-10] MEDS: Aspirin Enteric Coated 81 MG TABLET.DR PO (09:15)
[2024-05-10] MEDS: Spironolactone 25 MG TABLET PO ×2 (09:15→17:30)
[2024-05-10] MEDS: Valsartan 40 MG TABLET 20 MG PO ×2 (09:16→20:28)
[2024-05-10] MEDS: Thiamine HCL 100 MG TABLET PO (09:16)
[2024-05-10] MEDS: Apixaban 5 MG TABLET PO ×2 (09:16→20:28)
[2024-05-10] MEDS: Amiodarone HCL 200 MG TABLET PO (09:17)
[2024-05-10] MEDS: Gabapentin 300 MG CAPSULE PO ×3 (09:17→20:32)
[2024-05-10 10:52] LABS: Glucose, Whole Blood 154 mg/dL (60-115)
--- NOTE | 2024-05-10 11:05 | PM.EVENT ---
Event Note Date of Service: 05/10/24 Event Note: Patient seen and examined. Patient will most likely require left trans met amp with prior arterial evaluation. Unfortunately at the current time he needs to medically stabilize before we can further treat him. Thank you for allowing us to assist in his care. Time Spent With Patient Time: Total time managing care of this patient today ____ minutes.
--- NOTE | 2024-05-10 11:06 | MHC.CM.PN ---
Per ROUNDS discussion, Patient is not yet medically cleared for dc (2 IVABT & IV Lasix); Home/resume services is the goal and CM will continue to follow.
--- NOTE | 2024-05-10 12:11 | HO.PM.IMPN ---
Subjective Subjective Date of Service: 05/10/24 Interval History: Complaining of shortness of breath, bilateral flank pain due to significant swelling, denies chest pain, no headache, tolerating diet no nausea, no vomiting ,or abdominal pain, no fevers, no chills. Review of Systems All other symptoms reviewed and are negative Physical Exam Vital Signs: Vital Signs: Last Vital Signs Temp 97.6 F 05/10/24 10:53 Pulse 80 05/10/24 10:53 Resp 20 05/10/24 10:53 BP 111/53 L 05/10/24 10:53 Pulse Ox 95 05/10/24 10:53 O2 Del Method Room Air 05/10/24 10:53 O2 Flow Rate 2 05/09/24 15:18 Oxygen Flow Rate 2 05/03/24 16:40 BMI result Body Mass Index 34.5 Const: Other: Gen: Awake alert x3, mild distress due to shortness of breath and pain HEENT: sclera anicteric, moist mucus membranes Neck: supple, + JVD Lungs: Basilar crackles, no use of accessory muscles Heart: regular rate and rhythm Abd: soft, bowel sounds audible, bilateral flank subcutaneous edema Ext: Bilateral pitting edema Skin: warm/well-perfused, L plantar wound , left 2nd toe wound with no surrounding hyperemia/no drainage, see pictures in progress note 11 Neuro: alert and oriented x3, no focal findings Psych: appropriate affect Objective Data Active Medications Acetaminophen (Acetaminophen 325 Mg Tablet) 650 mg PO Q6H PRN PRN Reason: Pain, Mild (Pain Scale 1-3), fever or headache Last Admin: 05/04/24 03:37 Dose: 650 mg Documented By: FELICITAS Albuterol Sulfate (Albuterol Sulfate (0.083%) 2.5 Mg/3 Ml Vial.Neb) 2.5 mg INHALE Q6H PRN PRN Reason: Shortness Of Breath Or Wheezing Amiodarone HCl (Amiodarone Hcl 200 Mg Tablet) 200 mg PO DAILY [facility] Last Admin: 05/10/24 09:17 Dose: 200 mg Documented By: SUNNI Apixaban (Apixaban 5 Mg Tablet) 5 mg PO BID [facility]PL[facility] Last Admin: 05/10/24 09:16 Dose: 5 mg Documented By: SUNNI Aspirin (Aspirin Enteric Coated 81 Mg Tablet.) 81 mg PO DAILY [facility] Last Admin: 05/10/24 09:15 Dose: 81 mg Documented By: SUNNI Calcium Carbonate (Calcium Carbonate 750 Mg Tab.Chew) 750 mg PO Q4H PRN PRN Reason: Heartburn Colchicine (Colchicine 0.6 Mg Tablet) 0.6 mg PO DAILY [facility] Last Admin: 05/10/24 09:14 Dose: 0.6 mg Documented By: SUNNI Fluticasone/Vilanterol (Fluticasone/Vilanterol 100/25 Blst.W.Dev) 1 puff INHALE RDAILY [facility] Last Admin: 05/10/24 07:55 Dose: Not Given Documented By: DAVID Non-Admin Reason: Patient Refused Gabapentin (Gabapentin 300 Mg Capsule) 300 mg PO TID [facility] Last Admin: 05/10/24 09:17 Dose: 300 mg Documented By: SUNNI Furosemide 200 mg/ Sodium (Chloride) 100 mls @ 5 mls/hr IVCONT .Q20H [facility] Last Admin: 05/09/24 22:10 Dose: 10 mg/hr, 5 mls/hr Documented By: ROSA Daptomycin 600 mg/ Sodium (Chloride) 62 mls @ 100 mls/hr IV Q24H [facility] Last Infusion: 05/09/24 15:21 Dose: Infused Documented By: ROSA Insulin Glargine (Insulin Glargine,Hum.Rec.Anlog 100 Unit/Ml 10 Ml Vial) 15 unit SUBCUT BEDTIME [facility] Last Admin: 05/09/24 20:13 Dose: 15 unit Documented By: ROSA Insulin Human Lispro (Insulin Lispro 100 Unit/Ml 3 Ml Vial) 0 unit SUBCUT QIDACHS [facility]PL[facility]ED [facility]; Protocol Last Admin: 05/10/24 07:04 Dose: Not Given Documented By: SUNNI Non-Admin Reason: No Insulin Coverage Magnesium Hydroxide (Milk Of Magnesia 30 Ml Oral.Susp) 30 ml PO DAILY PRN PRN Reason: Constipation Melatonin (Melatonin 3 Mg Tablet) 6 mg PO BEDTIME PRN PRN Reason: Insomnia Last Admin: 05/04/24 03:37 Dose: 6 mg Documented By: REJI-SHANIA Meropenem (Meropenem 1 Gm Vial) 1 gm IVPUSH Q8H [facility]PL[facility]ED [facility] Last Admin: 05/10/24 09:14 Dose: 1 gm Documented By: SUNNI Omeprazole (Omeprazole 20 Mg Capsule.) 20 mg PO DAILY@0630 [facility] Last Admin: 05/10/24 05:59 Dose: 20 mg Documented By: ELANA Ondansetron HCl (Ondansetron Hcl 4 Mg/2 Ml Vial) 4 mg IVPUSH Q8H PRN PRN Reason: Nausea and Vomiting Oxycodone HCl (Oxycodone Hcl Immed Release 5 Mg Tablet) 5 mg PO Q6H PRN PRN Reason: Pain, Severe (Pain Scale 7-10) Last Admin: 05/10/24 09:14 Dose: 5 mg Documented By: SUNNI Sertraline HCl (Sertraline Hcl 25 Mg Tablet) 25 mg PO DAILY [facility] Last Admin: 05/10/24 09:14 Dose: 25 mg Documented By: SUNNI Sodium Chloride (0.9 % Sodium Chloride Flush 3 Ml Syringe) 3 ml IVFLUSH QSHIFT REPLACED BY [facility] Last Admin: 05/10/24 09:18 Dose: 3 ml Documented By: SUNNI Spironolactone (Spironolactone 25 Mg Tablet) 25 mg PO BID@0900,1800 REPLACED [facility]; Protocol Last Admin: 05/10/24 09:15 Dose: 25 mg Documented By: SUNNI Thiamine HCl (Thiamine Hcl 100 Mg Tablet) 100 mg PO DAILY [facility]PL[facility] Last Admin: 05/10/24 09:16 Dose: 100 mg Documented By: SUNNI Valsartan (Valsartan 40 Mg Tablet) 20 mg PO BID REPLACED BY [facility]; Protocol Last Admin: 05/10/24 09:16 Dose: 20 mg Documented By: SUNNI Vitamin D (Cholecalciferol (Vitamin D3) 25 Mcg Tablet) 25 mcg PO DAILY [facility] Last Admin: 05/10/24 09:15 Dose: 25 mcg Documented By: SUNNI Labs 05/03/24 17:34 05/10/24 06:07 Labs: Laboratory Results - last 24 hr 05/09/24 05/09/24 05/10/24 16:32 20:05 06:07 Anion Gap 13 Estim Creat Clear Calc 112.4 Estimated GFR > 60 POC Glucose 171 H 149 H Random Glucose 58 L* Calcium 8.7 B-Natriuretic Peptide 2506 H 11/05/10/24 05/10/24 06:49 07:29 10:47 Anion Gap Estim Creat Clear Calc Estimated GFR POC Glucose 57 L* 96 154 H Random Glucose Calcium B-Natriuretic Peptide Assessment and Plan (1) Nicotine dependence: Status: Acute (2) Diabetic infection of left foot: Status: Acute (3) Acute on chronic HFrEF (heart failure with reduced ejection fraction): Status: Acute Plan 58-year-old male with pertinent history of sCHF, diabetic foot infection on IV antibiotics, COPD, PAF on Eliquis, CAD status post PCI, KIMANI on CPAP, insulin-dependent diabetes mellitus, mood disorder, PAD among others who presents with Increase fluids and Dyspnea. Anasarca 2/2 Acute on chronic congestive heart failure with reduced ejection fraction Persistent fluid overload/short of breath/anasarca EF 15-20% s/p AICD will use external/Joshi catheter for Strict I's and O's, Low-salt diet Continue IV Lasix drip 10 milligram/hours, Aldactone 25 b.i.d. Case discussed with Dr. Montoya with he gave metolazone 5 mg x1 t E coli jaida decrease valsartan 20mg BID due to hypotension, transition to entreso if tolerates [facility] Cardiology following stopped beta-lion and isordil Follow BMP and BNP More all in 0 Acute on chronic Iron def. anemia No evidence of bleeding , Low iron stores negative occult last admission s/p IV Iron, DC on PO supplement will need outpatient GI follow up for further eval Insulin-dependent diabetes mellitus 2 with hyperglycemia basal plus insulin regimen ADA diet Diabetic foot infection with OM on IV Abx Wound care following On IV ertapenem and daptomycin until 05/14/2024 (change to Meropenem while inpt) Vascular eval appreciated>continue wound care, no surgical intervention needed at this point Peripheral arterial disease Previous arterial Dopplers showing delayed arterial upstroke. Outpatient follow-up with Dr. Chatman COPD Continue home inhalers KIMANI CPAP at bedtime CAD On aspirin. Not on statin Paroxysmal atrial fibrillation On amiodarone and Eliquis Mood disorder Continue home mood stabilizers DVT prophylaxis: Eliquis Full code The patient requires ongoing inpatient hospital stay for IV diuresis, close monitoring of volume status which is not possible in a lesser acute setting pending cardiology follow up Quality Stroke Does the patient have a stroke diagnosis?: No VTE Prior VTE?: No VTE Risk Level:: Medical - moderate - high VTE Device Contraindication: Treatment Not Indicated VTE Drug Contraindication: N/A - Med Ordered
[2024-05-10] MEDS: metOLazone 5 MG TABLET PO (12:32)
[2024-05-10] MEDS: Insulin Lispro 100 UNIT/ML 3 ML VIAL SUBCUT ×2 (12:32→20:36)
--- NOTE | 2024-05-10 12:34 | P.PNVS_ITS ---
Subjective Subjective Date of Service: 05/10/24 Interval history: Jr is doing ok this morning, he continues with shortness of breath. He states he does not have pain in the foot this morning. He has not been sleeping well. Physical Exam Vital Signs: Vital Signs: Last Vital Signs Temp 97.6 F 05/10/24 10:53 Pulse 80 05/10/24 10:53 Resp 20 05/10/24 10:53 BP 111/53 L 05/10/24 10:53 Pulse Ox 95 05/10/24 10:53 O2 Del Method Room Air 05/10/24 10:53 O2 Flow Rate 2 05/09/24 15:18 Oxygen Flow Rate 2 05/03/24 16:40 BMI result Body Mass Index 34.5 Const: General: comfortable and no acute distress Orientation/consciousne ss: patient oriented x3 HEENT: Ears: hearing grossly normal bilaterally Resp: Effort & Inspection: normal respiratory effort and able to speak in complete sentences Auscultation: clear to auscultation bilaterally Cardio: Rate: regular rate Rhythm: regular rhythm Heart sounds: S1 normal heart sound present and S2 normal heart sound present Bruits: no abdominal aortic bruits, no carotid bruits, no femoral bruits and no renal bruits GI: Palpation (GI): No Abdominal aortic bruit present Neuro: General: patient oriented x3 Cranial nerves: Yes CN's II-XII intact bilaterally Extrem: Other: Left foot: Wrapped in Kerlix this morning. Tunneling noted between L2 and L3. Dry eschar and gangrene noted L1 amp site, around L2, and L3 and 4. Faint DP pulses palpated. L2 toe: Very loose, wiggles very easily. Dry gangrene noted over toe. Progress Note: A&P Assessment and plan (1) Foot ulcer, left: Status: Acute Assessment and Plan: Juan A continues to endorse shortness of breath. He states his foot is not bothering him, it is not currently causing him any pain. Dr Chatman has examined the pt and the pt will need surgical intervention; however, at this point, he is not medically stable to do so. We will follow him outpatient and will get more imaging and come up with a treatment plan. We will continue to monitor. Continue with the current wound care changes. If there are any questions or concerns, please do not hesitate to reach out to us. Time Spent With Patient Time: Total time managing care of this patient today __20__ minutes. Procedures Date of Service Date of Service: 05/10/24 Quality Stroke Does the patient have a stroke diagnosis?: No VTE Prior VTE?: No VTE Risk Level:: Medical - moderate - high VTE Device Contraindication: Treatment Not Indicated VTE Drug Contraindication: N/A - Med Ordered
--- NOTE | 2024-05-10 13:09 | PM.PNCARD ---
Subjective Subjective Date of Service: 05/10/24 Principal diagnosis: Decompensated congestive heart failure Interval history: Seen examined at bedside. His Lasix dose was increased to 10 mg per hour on the drip yesterday. He continues to have low urine output. Beta-lion was also discontinued and he did not receive it today. Physical Exam Vital Signs: Last Vital Signs Temp 97.6 F 05/10/24 10:53 Pulse 80 05/10/24 10:53 Resp 20 05/10/24 10:53 BP 111/53 L 05/10/24 10:53 Pulse Ox 95 05/10/24 10:53 O2 Del Method Room Air 05/10/24 10:53 O2 Flow Rate 2 05/09/24 15:18 Oxygen Flow Rate 2 05/03/24 16:40 BMI result Body Mass Index 34.5 GENERAL APPEARANCE: in no acute distress, pleasant. NECK: no carotid bruit, ++ jugular venous distention. SKIN: no suspicious lesions, warm and dry. HEART: no murmurs, regular rate and rhythm. LUNGS: Bilateral crackles. ABDOMEN: soft, nontender. Abdominal ascites abdominal wall edema. EXTREMITIES: + + edema. NEUROLOGIC: No gross deficits, AAO X 3 Objective Labs and Meds 05/03/24 17:34 05/10/24 06:07 Lab results: Laboratory Results - last 24 hr 05/09/24 05/09/24 05/10/24 16:32 20:05 06:07 Sodium 141 Potassium 4.3 Chloride 104 Carbon Dioxide 28 Anion Gap 13 BUN 37 H Creatinine 0.89 Estim Creat Clear Calc 112.4 Estimated GFR > 60 POC Glucose 171 H 149 H Random Glucose 58 L* Calcium 8.7 B-Natriuretic Peptide 2506 H 05/10/24 05/10/24 05/10/24 06:49 07:29 10:47 Sodium Potassium Chloride Carbon Dioxide Anion Gap BUN Creatinine Estim Creat Clear Calc Estimated GFR POC Glucose 57 L* 96 154 H Random Glucose Calcium B-Natriuretic Peptide Progress Note: A&P Assessment and plan (1) Acute on chronic HFrEF (heart failure with reduced ejection fraction): Status: Acute Plan 58-year-old gentleman with biventricular heart failure who is significantly volume overloaded currently. He also has diabetic infection of left foot and he is on daptomycin and meropenem. He has been on Lasix drip. This was increased to 10 milligram/hour yesterday. Discontinue Toprol-XL and isosorbide dinitrate. Given metolazone 5 mg today and will give 80 mg of bolus dose of Lasix 2. If he does not respond well to this then we will increase the Lasix dose to 15 milligram/hour. He is on quite high doses of diuretics currently and urine output is not great. His kidney function is normal though. He has diffuse anasarca along with ascites. Clinically he is hypovolemic and significantly volume overloaded. Continue amiodarone and Eliquis as before. Increase spironolactone to 25 mg twice a day. If he does not respond to diuretics and may need Milrinone or dobutamine. We will decide by tomorrow. We will follow along with you. Thank you for allowing me to participate in the care of your patient. Please feel free to contact me if you have any questions. Time Spent With Patient Time: Total time managing care of this patient today ____ minutes. Progress Note: Quality Stroke Does the patient have a stroke diagnosis?: No Procedures Date of Service Date of Service: 05/10/24
[2024-05-10] MEDS: DAPTOmycin 600 MG in 0.9 % Sodium Chloride 50 ML 100 MG IV (13:11)
[2024-05-10] MEDS: Furosemide 100 MG/10 ML VIAL 80 MG IVPUSH (14:12)
[2024-05-10 17:00] LABS: Glucose, Whole Blood 197 mg/dL (60-115)
[2024-05-10] MEDS: Furosemide 200 MG in 0.9 % Sodium Chloride 80 ML IVCONT (18:47)
[2024-05-10] MEDS: Insulin Glargine,Hum.rec.anlog 100 UNIT/ML 10 ML VIAL 15 UNIT SUBCUT (20:29)
[2024-05-10] MEDS: traMADoL HCL 50 MG TABLET PO (20:29)
[2024-05-10 20:30] LABS: Glucose, Whole Blood 194 mg/dL (60-115)
[2024-05-11] VITALS (7 sets, daily range): BP systolic 100–110; BP diastolic 56–76; PULSE 74–106; RESP 16–20; TEMP 36.3–36.6; O2SAT 92–97; BMI 33.7
[2024-05-11] MEDS: Meropenem 1 GM VIAL IVPUSH ×3 (03:10→17:39)
[2024-05-11] MEDS: oxyCODONE HCl Immed Release 5 MG TABLET PO ×3 (06:27→21:46)
[2024-05-11] MEDS: Omeprazole 20 MG CAPSULE.DR PO (06:28)
[2024-05-11 07:04] LABS: Anion Gap 13 (12-20); Blood Urea Nitrogen 44 mg/dL (9-16); Carbon Dioxide 35 mmol/L (22-29); Chloride 98 mmol/L (96-108); Creatinine Clr Calc Pharmacy 114.9; Estimated Glomerular Filt Rate > 60; Glucose Random 68 mg/dL (60-115); Potassium 3.9 mmol/L (3.3-5.1); Sodium 142 mmol/L (135-145)
[2024-05-11] MEDS: Fluticasone/Vilanterol 100/25 BLST.W.DEV 1 PUFF INHALE (07:12)
[2024-05-11 07:26] LABS: Glucose, Whole Blood 75 mg/dL (60-115)
[2024-05-11 07:27] LABS: B Type Natriuretic Peptide 1670 pg/mL (<100)
[2024-05-11] MEDS: 0.9 % Sodium Chloride Flush 3 ML SYRINGE IVFLUSH ×3 (08:18→21:47)
[2024-05-11] MEDS: Thiamine HCL 100 MG TABLET PO (08:19)
[2024-05-11] MEDS: Sertraline HCL 25 MG TABLET PO (08:19)
[2024-05-11] MEDS: Apixaban 5 MG TABLET PO ×2 (08:20→21:46)
[2024-05-11] MEDS: traMADoL HCL 50 MG TABLET PO (08:20)
[2024-05-11] MEDS: Spironolactone 25 MG TABLET PO ×2 (08:20→17:38)
[2024-05-11] MEDS: Aspirin Enteric Coated 81 MG TABLET.DR PO (08:20)
[2024-05-11] MEDS: Cholecalciferol (Vitamin D3) 25 MCG TABLET PO (08:20)
[2024-05-11] MEDS: Amiodarone HCL 200 MG TABLET PO (08:21)
[2024-05-11] MEDS: Gabapentin 300 MG CAPSULE PO ×3 (08:21→21:46)
[2024-05-11] MEDS: Valsartan 40 MG TABLET 20 MG PO ×2 (08:22→21:46)
[2024-05-11] MEDS: Colchicine 0.6 MG TABLET PO (08:23)
--- NOTE | 2024-05-11 09:07 | HO.VASCPN ---
Subjective Subjective Date of Service: 05/11/24 Interval history: Jr is doing okay this morning. He was found wearing his CPAP mask and just waking up. He states he is eating and drinking well. He has not been sleeping well and is taking naps during the day. He does endorse some shortness of breath but not as bad as yesterday. His left foot remains sore. Physical Exam Vital Signs: Vital Signs: Last Vital Signs Temp 97.6 F 05/11/24 07:34 Pulse 106 H 05/11/24 07:34 Resp 16 05/11/24 07:34 BP 109/58 L 05/11/24 07:34 Pulse Ox 94 05/11/24 07:34 O2 Del Method Room Air 05/11/24 07:34 O2 Flow Rate 2 05/09/24 15:18 Oxygen Flow Rate 2 05/03/24 16:40 BMI result Body Mass Index 33.7 Const: General: comfortable and no acute distress Orientation/consciousness: patient oriented x3 HEENT: Ears: hearing grossly normal bilaterally Resp: Effort & Inspection: normal respiratory effort and able to speak in complete sentences Auscultation: clear to auscultation bilaterally Cardio: Rate: regular rate Rhythm: regular rhythm Heart sounds: S1 normal heart sound present and S2 normal heart sound present Bruits: no abdominal aortic bruits, no carotid bruits, no femoral bruits and no renal bruits GI: Palpation (GI): No Abdominal aortic bruit present Neuro: General: patient oriented x3 Cranial nerves: Yes CN's II-XII intact bilaterally Extrem: Other: Left lower extremity: Did not take bandage down this morning. Foot feels cool to the touch. Faint palpable DP pulse. Progress Note: A&P Assessment and plan (1) Diabetic infection of left foot: Status: Acute Assessment and Plan: Jr is currently stable from a vascular standpoint at this point. He continues to endorse left lower extremity and foot pain. We will continue with the current wound care. Due to his dyspnea and heart failure he is not currently a surgical candidate, we would like him to stabilize before we discuss any vascular surgery at this point. We will follow him outpatient where we can reassess and determine an appropriate treatment plan. We will continue to monitor. If there are any questions or concerns, please do not hesitate to reach out to us. Time Spent With Patient Time: Total time managing care of this patient today __20__ minutes. Procedures Date of Service Date of Service: 05/11/24 Quality Stroke Does the patient have a stroke diagnosis?: No VTE Prior VTE?: No VTE Risk Level:: Medical - moderate - high VTE Device Contraindication: Treatment Not Indicated VTE Drug Contraindication: N/A - Med Ordered
[2024-05-11 11:12] LABS: Glucose, Whole Blood 99 mg/dL (60-115)
--- NOTE | 2024-05-11 11:56 | P.PNIM_ITS ---
Subjective Subjective Date of Service: 05/11/24 Interval History: Seen and examined this morning Follow-up for CHF Continues on Lasix drip, breathing slowly improving Review of Systems Review of Systems: Yes all other systems are reviewed and are negative Constitutional Constitutional: Denies chills and Denies fever(s) Cardiovascular Cardiovascular: Denies chest pain, Denies palpitations and Denies dyspnea Respiratory Respiratory: Denies cough and Denies dyspnea Endocrine Endocrine: Denies palpitations Physical Exam 2 Vital Signs: Vital Signs: Last Vital Signs Temp 97.3 F 05/11/24 10:50 Pulse 83 05/11/24 10:50 Resp 20 05/11/24 10:50 BP 110/72 05/11/24 10:50 Pulse Ox 92 05/11/24 10:50 O2 Del Method Room Air 05/11/24 10:50 O2 Flow Rate 2 05/09/24 15:18 Oxygen Flow Rate 2 05/03/24 16:40 BMI result Body Mass Index 33.7 Const: General: cooperative, comfortable and no acute distress Nutritional Appearance: overweight Orientation/consciousness: patient oriented x3 Resp: Effort & Inspection: normal respiratory effort, able to speak in complete sentences, no respiratory distress and no use of accessory muscles Cardio: Jugular venous distension: JVD GI: Other: b/l flank edema Inspection: No distended Palpation (GI): Soft to palpation Skin: Other: LLE wound c/d/i dressing Neuro: General: patient oriented x3, moves all extremities and CN's II-XI intact bilaterally Extrem: Other: b/l LE edema, improving Objective Data Active Medications Acetaminophen (Acetaminophen 325 Mg Tablet) 650 mg PO Q6H PRN PRN Reason: Pain, Mild (Pain Scale 1-3), fever or headache Last Admin: 05/04/24 03:37 Dose: 650 mg Documented By: FELICITAS Amiodarone HCl (Amiodarone Hcl 200 Mg Tablet) 200 mg PO DAILY [facility] Last Admin: 05/11/24 08:21 Dose: 200 mg Documented By: CARRIE Apixaban (Apixaban 5 Mg Tablet) 5 mg PO BID [facility] Last Admin: 05/11/24 08:20 Dose: 5 mg Documented By: CARRIE Aspirin (Aspirin Enteric Coated 81 Mg Tablet.) 81 mg PO DAILY [facility] Last Admin: 05/11/24 08:20 Dose: 81 mg Documented By: CARRIE Calcium Carbonate (Calcium Carbonate 750 Mg Tab.Chew) 750 mg PO Q4H PRN PRN Reason: Heartburn Colchicine (Colchicine 0.6 Mg Tablet) 0.6 mg PO DAILY [facility] Last Admin: 05/11/24 08:23 Dose: 0.6 mg Documented By: CARRIE Fluticasone/Vilanterol (Fluticasone/Vilanterol 100/25 Blst.W.Dev) 1 puff INHALE RDAILY [facility] Last Admin: 05/11/24 07:12 Dose: 1 puff Documented By: KEO Gabapentin (Gabapentin 300 Mg Capsule) 300 mg PO TID [facility] Last Admin: 05/11/24 08:21 Dose: 300 mg Documented By: CARRIE Furosemide 200 mg/ Sodium (Chloride) 100 mls @ 5 mls/hr IVCONT .Q20H [facility] Last Admin: 05/10/24 18:47 Dose: 10 mg/hr, 5 mls/hr Documented By: SUNNI Daptomycin 600 mg/ Sodium (Chloride) 62 mls @ 100 mls/hr IV Q24H [facility] Last Infusion: 05/10/24 18:48 Dose: Infused Documented By: SUNNI Insulin Glargine (Insulin Glargine,Hum.Rec.Anlog 100 Unit/Ml 10 Ml Vial) 15 unit SUBCUT BEDTIME [facility] Last Admin: 05/10/24 20:29 Dose: 15 unit Documented By: SHAYLA Insulin Human Lispro (Insulin Lispro 100 Unit/Ml 3 Ml Vial) 0 unit SUBCUT QIDACHS [facility]; Protocol Last Admin: 05/11/24 11:19 Dose: Not Given Documented By: CARRIE Non-Admin Reason: No Insulin Coverage Magnesium Hydroxide (Milk Of Magnesia 30 Ml Oral.Susp) 30 ml PO DAILY PRN PRN Reason: Constipation Melatonin (Melatonin 3 Mg Tablet) 6 mg PO BEDTIME PRN PRN Reason: Insomnia Last Admin: 05/04/24 03:37 Dose: 6 mg Documented By: FELICITAS Meropenem (Meropenem 1 Gm Vial) 1 gm IVPUSH Q8H [facility] Last Admin: 05/11/24 08:19 Dose: 1 gm Documented By: CARRIE Omeprazole (Omeprazole 20 Mg Capsule.Dr) 20 mg PO DAILY@0630 [facility] Last Admin: 05/11/24 06:28 Dose: 20 mg Documented By: SHAYLA Ondansetron HCl (Ondansetron Hcl 4 Mg/2 Ml Vial) 4 mg IVPUSH Q8H PRN PRN Reason: Nausea and Vomiting Oxycodone HCl (Oxycodone Hcl Immed Release 5 Mg Tablet) 5 mg PO Q6H PRN PRN Reason: Pain, Severe (Pain Scale 7-10) Last Admin: 05/11/24 06:27 Dose: 5 mg Documented By: SHAYLA Sertraline HCl (Sertraline Hcl 25 Mg Tablet) 25 mg PO DAILY [facility] Last Admin: 05/11/24 08:19 Dose: 25 mg Documented By: CARRIE Sodium Chloride (0.9 % Sodium Chloride Flush 3 Ml Syringe) 3 ml [facility]USH [facility] Last Admin: 05/11/24 08:18 Dose: 3 ml Documented By: CARRIE Spironolactone (Spironolactone 25 Mg Tablet) 25 mg PO BID@0900,1800 [facility]; Protocol Last Admin: 05/11/24 08:20 Dose: 25 mg Documented By: CARRIE Thiamine HCl (Thiamine Hcl 100 Mg Tablet) 100 mg PO DAILY [facility] Last Admin: 05/11/24 08:19 Dose: 100 mg Documented By: CARRIE Tramadol HCl (Tramadol Hcl 50 Mg Tablet) 50 mg PO Q4H PRN PRN Reason: Pain, Moderate(Pain Scale 4-6) Last Admin: 05/11/24 08:20 Dose: 50 mg Documented By: CARRIE Valsartan (Valsartan 40 Mg Tablet) 20 mg PO BID [facility]; Protocol Last Admin: 05/11/24 08:22 Dose: 20 mg Documented By: CARRIE Vitamin D (Cholecalciferol (Vitamin D3) 25 Mcg Tablet) 25 mcg PO DAILY [facility] Last Admin: 05/11/24 08:20 Dose: 25 mcg Documented By: CARRIE Labs 05/03/24 17:34 05/11/24 06:06 Labs: Laboratory Results - last 24 hr 05/10/24 05/10/24 05/11/24 16:56 20:28 06:06 Anion Gap 13 Estim Creat Clear Calc 114.9 Estimated GFR > 60 POC Glucose 197 H 194 H Random Glucose 68 Calcium 9.0 B-Natriuretic Peptide 1670 H 05/11/24 05/11/24 07:06 11:08 Anion Gap Estim Creat Clear Calc Estimated GFR POC Glucose 75 99 Random Glucose Calcium B-Natriuretic Peptide Assessment and Plan (1) RIC (iron deficiency anemia): Status: Acute (2) Acute on chronic HFrEF (heart failure with reduced ejection fraction): Status: Acute (3) Diabetic infection of left foot: Status: Acute Plan 58-year-old male with pertinent history of sCHF, diabetic foot infection on IV antibiotics, COPD, PAF on Eliquis, CAD status post PCI, KIMANI on CPAP, insulin- dependent diabetes mellitus, mood disorder, PAD among others who presents with Increase fluids and Dyspnea. Anasarca 2/2 Acute on chronic congestive heart failure with reduced ejection fraction EF 15-20% s/p AICD Persistent fluid overload/shortness of breath/anasarca - good UP in last 24 hrs, BNP trending down continue IV lasix drip will use external/Joshi catheter for Strict I's and O's, Low-salt diet Continue IV Lasix drip 10 milligram/hours, Aldactone 25 b.i.d. decrease valsartan 20mg BID due to hypotension, transition to entreso if tolerates [facility] Cardiology following stopped beta-lion and isordil Follow BMP and BNP Acute on chronic Iron def. anemia No evidence of bleeding , Low iron stores negative occult last admission s/p IV Iron, DC on PO supplement will need outpatient GI follow up for further eval Insulin-dependent diabetes mellitus 2 with hyperglycemia basal plus insulin regimen ADA diet Diabetic foot infection with OM on IV Abx Wound care following On IV ertapenem and daptomycin until 05/14/2024 (change to Meropenem while inpt) Vascular eval appreciated>continue wound care, no surgical intervention at this time - will likely need transmetatarsal amputation with prior arterial evaluation in the future; outpatient vascular follow up Peripheral arterial disease Previous arterial Dopplers showing delayed arterial upstroke. Outpatient follow-up with Dr. Chatman COPD Continue home inhalers KIMANI CPAP at bedtime CAD On aspirin. Not on statin Paroxysmal atrial fibrillation On amiodarone and Eliquis Mood disorder Continue home mood stabilizers DVT prophylaxis: Eliquis Full code The patient requires ongoing inpatient hospital stay for IV diuresis, close monitoring of volume status which is not possible in a lesser acute setting pending cardiology follow up Quality Stroke Does the patient have a stroke diagnosis?: No VTE Prior VTE?: No VTE Risk Level:: Medical - moderate - high VTE Device Contraindication: Treatment Not Indicated VTE Drug Contraindication: N/A - Med Ordered
--- NOTE | 2024-05-11 12:53 | PM.PNCARD ---
Subjective Subjective Date of Service: 05/11/24 Principal diagnosis: Decompensated congestive heart failure Interval history: Seen examined bedside. He has been diuresing well since yesterday is 7 L negative. Physical Exam Vital Signs: Last Vital Signs Temp 97.3 F 05/11/24 10:50 Pulse 83 05/11/24 10:50 Resp 20 05/11/24 10:50 BP 110/72 05/11/24 10:50 Pulse Ox 92 05/11/24 10:50 O2 Del Method Room Air 05/11/24 10:50 O2 Flow Rate 2 05/09/24 15:18 Oxygen Flow Rate 2 05/03/24 16:40 BMI result Body Mass Index 33.7 GENERAL APPEARANCE: in no acute distress, pleasant. NECK: no carotid bruit, ++ jugular venous distention. SKIN: no suspicious lesions, warm and dry. HEART: no murmurs, regular rate and rhythm. LUNGS: Bilateral crackles. ABDOMEN: soft, nontender. Abdominal ascites abdominal wall edema. EXTREMITIES: + + edema. NEUROLOGIC: No gross deficits, AAO X 3 Objective Labs and Meds 05/03/24 17:34 05/11/24 06:06 Lab results: Laboratory Results - last 24 hr 05/10/24 05/10/24 05/11/24 16:56 20:28 06:06 Sodium 142 Potassium 3.9 Chloride 98 Carbon Dioxide 35 H Anion Gap 13 BUN 44 H Creatinine 0.86 Estim Creat Clear Calc 114.9 Estimated GFR > 60 POC Glucose 197 H 194 H Random Glucose 68 Calcium 9.0 B-Natriuretic Peptide 1670 H 05/11/24 05/11/24 07:06 11:08 Sodium Potassium Chloride Carbon Dioxide Anion Gap BUN Creatinine Estim Creat Clear Calc Estimated GFR POC Glucose 75 99 Random Glucose Calcium B-Natriuretic Peptide Progress Note: A&P Assessment and plan (1) Acute on chronic HFrEF (heart failure with reduced ejection fraction): Status: Acute Plan 58-year-old gentleman with biventricular heart failure who is significantly volume overloaded currently. He also has diabetic infection of left foot and he is on daptomycin and meropenem. He is significantly volume overloaded. Initially he did not respond well to Lasix drip although he was up to 10 milligram/hour. We stopped the beta-lion and the gave him metolazone 5 mg along with bolus dose of 80 mg Lasix. He has started diuresing well since then and is 7 L negative. Continue Lasix drip at the same rate at this point. I think we should not give him any further metolazone unless his urine output starts dropping. Titrate spironolactone to 50 mg twice a day if potassium stays stable. Continue amiodarone and Eliquis as before. We will follow along with you. Thank you for allowing me to participate in the care of your patient. Please feel free to contact me if you have any questions. Time Spent With Patient Time: Total time managing care of this patient today ____ minutes. Progress Note: Quality Stroke Does the patient have a stroke diagnosis?: No Procedures Date of Service Date of Service: 05/11/24
[2024-05-11] MEDS: DAPTOmycin 600 MG in 0.9 % Sodium Chloride 50 ML 100 MG IV (13:26)
[2024-05-11] MEDS: Furosemide 200 MG in 0.9 % Sodium Chloride 80 ML IVCONT (13:32)
--- NOTE | 2024-05-11 14:34 | HO.WOUND ---
Wound Consult:Follow up 58yr old Male admitted to [facility] on 05/03/24 - See progress notes and H&P for detailed history.? Wound consult follow up for Left foot wound.? Patient agreeable to assessment and photo documentation.? This admission patient has been followed by Vascular Surgery Dr Chatman's office. D/C plan is to follow up outpt with Dr. Chatman and plan for future surgical intervention. On reassessment this wound remains concerning but is improving. The plantar wound have exposed bone, and communicates with the webspace wound on the 2nd toe. The dorsal side of the 2nd toe is improving, dry wound bed. Will continue to dry to stabilize. The webspace wound and plantar will continue to be packed with Durafiber AG for moisture management. Currently the periwound and wound itself appears to be improving however the plantar area has a significantly exposed bone that was not as visible last assessment. There is concern for wound worsening when patient is discharged to home as in times past his compliance has been poor- he needs continued VNA services to provide deliberate wound care. No new topical wound care orders needed at this time. Left Plantar (not pictures 2nd webspace that communicates to plantar wound Etiology: ??Diabetic Wounds Measurements: Left Anterior wound : 1.5cm x 0.6cm x 0.1cm pink wound bed Left 2nd web space communicates to Left Plantar with undermining circumferential - adherent fibrinous slough Bone exposed from base of plantar wound. Drainage / Odor: [place] yellow drainage noted on dressing when removed - mild odor noted Edges: ? nonadherent [place] wound: ?less swelling less erythema noted no induration no fluctuance noted Pain: reports pain and reports neuropathy Goals of Treatment: ? Durafiber AG defer to surgery and vascular team Recommendations: 1. Maintain blood glucose levels per Providers order. 2. Left foot sites - Off Load Pressure - Cleanse and irrigate with NS, Pat dry.? Apply barrier to periwound, lightly pack with Durafiber AG, be sure to leave a wick to easy removal.? Cover with dry gauze, gauze wrap.? Change every other day. Recommend Dr. Chatman Vascular Surgeon for outpatient follow up.? His office is located at [address] [place] [address] [id number], [place] [address], call for an appointment at time of discharge [phone] Re-consult wound care Nurse for wound deterioration or wound changes.
[2024-05-11 16:46] LABS: Glucose, Whole Blood 138 mg/dL (60-115)
[2024-05-11 19:39] LABS: Glucose, Whole Blood 180 mg/dL (60-115)
[2024-05-11] MEDS: Insulin Glargine,Hum.rec.anlog 100 UNIT/ML 10 ML VIAL 15 UNIT SUBCUT (21:46)
[2024-05-11] MEDS: Insulin Lispro 100 UNIT/ML 3 ML VIAL SUBCUT (21:46)
[2024-05-12] VITALS (8 sets, daily range): BP systolic 94–104; BP diastolic 50–68; PULSE 74–90; RESP 16–20; TEMP 36.2–36.8; O2SAT 90–96; BMI 33.7
[2024-05-12] MEDS: traMADoL HCL 50 MG TABLET PO ×2 (00:15→06:30)
[2024-05-12] MEDS: Meropenem 1 GM VIAL IVPUSH ×3 (00:15→17:24)
[2024-05-12] MEDS: Omeprazole 20 MG CAPSULE.DR PO (06:30)
[2024-05-12 07:00] LABS: Anion Gap 12 (12-20); Blood Urea Nitrogen 45 mg/dL (9-16); Carbon Dioxide 38 mmol/L (22-29); Chloride 93 mmol/L (96-108); Creatinine Clr Calc Pharmacy 98.8; Estimated Glomerular Filt Rate > 60; Glucose Random 139 mg/dL (60-115); Potassium 4.4 mmol/L (3.3-5.1); Sodium 139 mmol/L (135-145)
[2024-05-12 07:05] LABS: Glucose, Whole Blood 120 mg/dL (60-115)
[2024-05-12 07:48] LABS: Hemoglobin 9.2 g/dl (14.0-18.0); Mean Corpuscular HGB Conc 29.7 g/dl (31.0-36.0); Mean Corpuscular Hemoglobin 23.4 pg (27.0-33.0); Mean Corpuscular Volume 78.9 fL (80.0-98.0); Mean Platelet Volume 10.2 fL (9.4-12.4); Platelet Count 198 X10*3/uL (160-400); Red Blood Count 3.93 X10*6/uL (4.60-5.80); Red Cell Distribution Width 24.9 % (11.0-16.0); White Blood Count 7.8 X10*3/uL (4.8-10.8)
[2024-05-12] MEDS: Colchicine 0.6 MG TABLET PO (08:52)
[2024-05-12] MEDS: Thiamine HCL 100 MG TABLET PO (08:52)
[2024-05-12] MEDS: Furosemide 200 MG in 0.9 % Sodium Chloride 80 ML IVCONT (08:52)
[2024-05-12] MEDS: oxyCODONE HCl Immed Release 5 MG TABLET PO (08:53)
[2024-05-12] MEDS: Amiodarone HCL 200 MG TABLET PO (08:53)
[2024-05-12] MEDS: Apixaban 5 MG TABLET PO ×2 (08:53→21:00)
[2024-05-12] MEDS: Valsartan 40 MG TABLET 20 MG PO ×2 (08:53→21:00)
[2024-05-12] MEDS: Gabapentin 300 MG CAPSULE PO ×3 (08:53→21:00)
[2024-05-12] MEDS: Sertraline HCL 25 MG TABLET PO (08:53)
[2024-05-12] MEDS: Aspirin Enteric Coated 81 MG TABLET.DR PO (08:54)
[2024-05-12] MEDS: Spironolactone 25 MG TABLET PO ×2 (08:54→17:25)
[2024-05-12] MEDS: 0.9 % Sodium Chloride Flush 3 ML SYRINGE IVFLUSH ×2 (08:55→17:25)
[2024-05-12] MEDS: Cholecalciferol (Vitamin D3) 25 MCG TABLET PO (08:55)
--- NOTE | 2024-05-12 10:35 | MHC.CM.PN ---
Per ROUNDS discussion, Patient is not yet medically cleared for dc (IV Lasix, 2 IVABT); home with the resumption of services is the goal and CM will continue to follow.
--- NOTE | 2024-05-12 11:09 | PM.PNCARD ---
Subjective Subjective Date of Service: 05/12/24 Principal diagnosis: Decompensated congestive heart failure Interval history: Seen examined at bedside. Continues to be significantly volume overloaded but has been diuresing well with the Lasix drip. Physical Exam Vital Signs: Last Vital Signs Temp 97.4 F 05/12/24 07:01 Pulse 85 05/12/24 07:01 Resp 17 05/12/24 07:01 BP 99/67 05/12/24 07:01 Pulse Ox 94 05/12/24 07:01 O2 Del Method Room Air 05/12/24 07:01 O2 Flow Rate 2 05/09/24 15:18 Oxygen Flow Rate 2 05/03/24 16:40 BMI result Body Mass Index 33.7 GENERAL APPEARANCE: in no acute distress, pleasant. NECK: no carotid bruit, ++ jugular venous distention. SKIN: no suspicious lesions, warm and dry. HEART: Holosystolic murmur left sternal border, regular rate and rhythm. LUNGS: Bilateral crackles. ABDOMEN: soft, nontender. Abdominal ascites abdominal wall edema. EXTREMITIES: + + edema. NEUROLOGIC: No gross deficits, AAO X 3 Objective Labs and Meds 05/12/24 06:12 05/12/24 06:12 Lab results: Laboratory Results - last 24 hr 05/11/24 05/11/24 05/11/24 11:08 16:39 19:35 WBC RBC Hgb Hct MCV MCH MCHC RDW Plt Count MPV Absolute Nucleated RBC Nucleated RBC % (auto) Hold Purple Top Sodium Potassium Chloride Carbon Dioxide Anion Gap BUN Creatinine Estim Creat Clear Calc Estimated GFR POC Glucose 99 138 H 180 H Random Glucose Calcium 05/12/24 05/12/24 06:12 07:00 WBC 7.8 RBC 3.93 L Hgb 9.2 L Hct 31.0 L MCV 78.9 L MCH 23.4 L MCHC 29.7 L RDW 24.9 H Plt Count 198 MPV 10.2 Absolute Nucleated RBC 0.000 Nucleated RBC % (auto) 0.0 Hold Purple Top SEE NOTE Sodium 139 Potassium 4.4 Chloride 93 L Carbon Dioxide 38 H Anion Gap 12 BUN 45 H Creatinine 1.00 Estim Creat Clear Calc 98.8 Estimated GFR > 60 POC Glucose 120 H Random Glucose 139 H Calcium 9.0 Progress Note: A&P Assessment and plan (1) Acute on chronic HFrEF (heart failure with reduced ejection fraction): Status: Acute Plan 58-year-old gentleman with biventricular heart failure who is significantly volume overloaded currently. He also has diabetic infection of left foot and he is on daptomycin and meropenem. He is significantly volume overloaded. Initially he did not respond well to Lasix drip although he was up to 10 milligram/hour. We stopped the beta-lion and then gave him metolazone 5 mg along with bolus dose of 80 mg Lasix. He has started diuresing well since then. Continue Lasix drip at the same rate at this point. Give 5 mg metolazone today. Continue spironolactone at 25 mg twice a day. Continue amiodarone and Eliquis as before. We will follow along with you. Thank you for allowing me to participate in the care of your patient. Please feel free to contact me if you have any questions. Time Spent With Patient Time: Total time managing care of this patient today ____ minutes. Progress Note: Quality Stroke Does the patient have a stroke diagnosis?: No Procedures Date of Service Date of Service: 05/12/24
[2024-05-12 11:11] LABS: Glucose, Whole Blood 149 mg/dL (60-115)
--- NOTE | 2024-05-12 11:22 | HO.PM.IMPN ---
Subjective Subjective Date of Service: 05/12/24 Interval History: seen and examined this morning follow up for CHF, foot infection did not sleep well, denies orthopnea, PND, breathing improving no fever, no chills Review of Systems Review of Systems: Yes all other systems are reviewed and are negative Constitutional Constitutional: Denies chills and Denies fever(s) Cardiovascular Cardiovascular: Denies chest pain and Denies palpitations Gastrointestinal Gastrointestinal: Denies abdominal pain Endocrine Endocrine: Denies palpitations Physical Exam Vital Signs: Vital Signs: Last Vital Signs Temp 97.4 F 05/12/24 11:14 Pulse 84 05/12/24 11:14 Resp 17 05/12/24 11:14 BP 96/62 05/12/24 11:14 Pulse Ox 93 05/12/24 11:14 O2 Del Method Room Air 05/12/24 11:14 O2 Flow Rate 2 05/09/24 15:18 Oxygen Flow Rate 2 05/03/24 16:40 BMI result Body Mass Index 33.7 Const: General: cooperative, comfortable, no acute distress, alert and awake Nutritional Appearance: overweight Orientation/consciousness: patient oriented x3 Resp: Effort & Inspection: normal respiratory effort, able to speak in complete sentences, no respiratory distress and no use of accessory muscles Cardio: Jugular venous distension: JVD GI: Other: b/l flank edema Inspection: No distended Palpation (GI): Soft to palpation Skin: Other: LLE wound c/d/i dressing Neuro: General: patient oriented x3, moves all extremities and CN's II-XI intact bilaterally Extrem: Other: b/l LE edema, improving Objective Data Active Medications Acetaminophen (Acetaminophen 325 Mg Tablet) 650 mg PO Q6H PRN PRN Reason: Pain, Mild (Pain Scale 1-3), fever or headache Last Admin: 05/04/24 03:37 Dose: 650 mg Documented By: FELICITAS Amiodarone HCl (Amiodarone Hcl 200 Mg Tablet) 200 mg PO DAILY [facility] Last Admin: 05/12/24 08:53 Dose: 200 mg Documented By: ALEX Apixaban (Apixaban 5 Mg Tablet) 5 mg PO BID [facility] Last Admin: 05/12/24 08:53 Dose: 5 mg Documented By: ALEX Aspirin (Aspirin Enteric Coated 81 Mg Tablet.) 81 mg PO DAILY [facility] Last Admin: 05/12/24 08:54 Dose: 81 mg Documented By: ALEX Calcium Carbonate (Calcium Carbonate 750 Mg Tab.Chew) 750 mg PO Q4H PRN PRN Reason: Heartburn Colchicine (Colchicine 0.6 Mg Tablet) 0.6 mg PO DAILY [facility] Last Admin: 05/12/24 08:52 Dose: 0.6 mg Documented By: ALEX Fluticasone/Vilanterol (Fluticasone/Vilanterol 100/25 Blst.W.Dev) 1 puff INHALE RDAILY [facility] Last Admin: 05/12/24 07:37 Dose: Not Given Documented By: DAVID Non-Admin Reason: pt asleep on CPAP Gabapentin (Gabapentin 300 Mg Capsule) 300 mg PO TID [facility] Last Admin: 05/12/24 08:53 Dose: 300 mg Documented By: ALEX Furosemide 200 mg/ Sodium (Chloride) 100 mls @ 5 mls/hr IVCONT .Q20H [facility] Last Admin: 05/12/24 08:52 Dose: 10 mg/hr, 5 mls/hr Documented By: ALEX Daptomycin 600 mg/ Sodium (Chloride) 62 mls @ 100 mls/hr IV Q24H [facility] Last Infusion: 05/11/24 14:04 Dose: Infused Documented By: CARRIE Insulin Glargine (Insulin Glargine,Hum.Rec.Anlog 100 Unit/Ml 10 Ml Vial) 15 unit SUBCUT BEDTIME [facility] Last Admin: 05/11/24 21:46 Dose: 15 unit Documented By: SHAYLA Insulin Human Lispro (Insulin Lispro 100 Unit/Ml 3 Ml Vial) 0 unit SUBCUT QIDACHS [facility]; Protocol Last Admin: 05/12/24 07:21 Dose: Not Given Documented By: ALEX Non-Admin Reason: No Insulin Coverage Magnesium Hydroxide (Milk Of Magnesia 30 Ml Oral.Susp) 30 ml PO DAILY PRN PRN Reason: Constipation Melatonin (Melatonin 3 Mg Tablet) 6 mg PO BEDTIME PRN PRN Reason: Insomnia Last Admin: 05/04/24 03:37 Dose: 6 mg Documented By: REJI-SHANIA Meropenem (Meropenem 1 Gm Vial) 1 gm IVPUSH Q8H [facility] Last Admin: 05/12/24 08:52 Dose: 1 gm Documented By: ALEX Omeprazole (Omeprazole 20 Mg Capsule.Dr) 20 mg PO DAILY@0630 [facility] Last Admin: 05/12/24 06:30 Dose: 20 mg Documented By: SHAYLA Ondansetron HCl (Ondansetron Hcl 4 Mg/2 Ml Vial) 4 mg IVPUSH Q8H PRN PRN Reason: Nausea and Vomiting Oxycodone HCl (Oxycodone Hcl Immed Release 5 Mg Tablet) 5 mg PO Q6H PRN PRN Reason: Pain, Severe (Pain Scale 7-10) Last Admin: 05/12/24 08:53 Dose: 5 mg Documented By: ALEX Sertraline HCl (Sertraline Hcl 25 Mg Tablet) 25 mg PO DAILY [facility] Last Admin: 05/12/24 08:53 Dose: 25 mg Documented By: ALEX Sodium Chloride (0.9 % Sodium Chloride Flush 3 Ml Syringe) 3 ml IVFLUSH QSHI Last Admin: 05/12/24 08:55 Dose: 3 ml Documented By: ALEX Spironolactone (Spironolactone 25 Mg Tablet) 25 mg PO BID@0900,1800 [facility]; Protocol Last Admin: 05/12/24 08:54 Dose: 25 mg Documented By: ALEX Thiamine HCl (Thiamine Hcl 100 Mg Tablet) 100 mg PO DAILY [facility] Last Admin: 05/12/24 08:52 Dose: 100 mg Documented By: ALEX Tramadol HCl (Tramadol Hcl 50 Mg Tablet) 50 mg PO Q4H PRN PRN Reason: Pain, Moderate(Pain Scale 4-6) Last Admin: 05/12/24 06:30 Dose: 50 mg Documented By: SHAYLA Valsartan (Valsartan 40 Mg Tablet) 20 mg PO BID [facility]; Protocol Last Admin: 05/12/24 08:53 Dose: 20 mg Documented By: LAEX Vitamin D (Cholecalciferol (Vitamin D3) 25 Mcg Tablet) 25 mcg PO DAILY [facility] Last Admin: 05/12/24 08:55 Dose: 25 mcg Documented By: ALEX Labs 05/12/24 06:12 05/12/24 06:12 Labs: Laboratory Results - last 24 hr 05/11/24 05/11/24 05/12/24 16:39 19:35 06:12 MCV 78.9 L MCH 23.4 L MCHC 29.7 L RDW 24.9 H Plt Count 198 MPV 10.2 Absolute Nucleated RBC 0.000 Nucleated RBC % (auto) 0.0 Hold Purple Top SEE NOTE Anion Gap 12 Estim Creat Clear Calc 98.8 Estimated GFR > 60 POC Glucose 138 H 180 H Random Glucose 139 H Calcium 9.0 05/12/24 05/12/24 07:00 11:08 MCV MCH MCHC RDW Plt Count MPV Absolute Nucleated RBC Nucleated RBC % (auto) Hold Purple Top Anion Gap Estim Creat Clear Calc Estimated GFR POC Glucose 120 H 149 H Random Glucose Calcium Assessment and Plan (1) Diabetic infection of left foot: Status: Acute (2) Acute on chronic HFrEF (heart failure with reduced ejection fraction): Status: Acute Plan 58-year-old male with pertinent history of sCHF, diabetic foot infection on IV antibiotics, COPD, PAF on Eliquis, CAD status post PCI, KIMANI on CPAP, insulin-dependent diabetes mellitus, mood disorder, PAD among others who presents with Increase fluids and Dyspnea. Anasarca 2/2 Acute on chronic biventricular CHF EF 15-20% s/p AICD Persistent fluid overload/shortness of breath/anasarca - good UP will use external/Joshi catheter for Strict I's and O's, Low-salt diet Continue IV Lasix drip 10 milligram/hours, Aldactone 25 b.i.d. decrease valsartan 20mg BID due to hypotension, transition to entreso if tolerates ARB stopped beta-lion and isordil metolazone 5 mg x1 today follow UP follow BMP Diabetic foot infection with OM on IV Abx Wound care following On IV ertapenem and daptomycin until 05/14/2024 (change to Meropenem while inpt) Vascular eval appreciated>continue wound care. will likely need transmetatarsal amputation with prior arterial evaluation. time TBD based on cardiac status, currently needs to be medically optimized Peripheral arterial disease as above Acute on chronic Iron def. anemia No evidence of bleeding , Low iron stores negative occult last admission s/p IV Iron, DC on PO supplement will need outpatient GI follow up for further eval Insulin-dependent diabetes mellitus 2 with hyperglycemia basal plus insulin regimen ADA diet COPD Continue home inhalers KIMANI CPAP at bedtime CAD On aspirin. Not on statin Paroxysmal atrial fibrillation On amiodarone and Eliquis Mood disorder Continue home mood stabilizers DVT prophylaxis: Eliquis Full code The patient requires ongoing inpatient hospital stay for IV diuresis, close monitoring of volume status and cardiac status, possible surgical intervention for foot wound which is not possible in a lesser acute setting Quality Stroke Does the patient have a stroke diagnosis?: No VTE Prior VTE?: No VTE Risk Level:: Medical - moderate - high VTE Device Contraindication: Treatment Not Indicated VTE Drug Contraindication: N/A - Med Ordered
[2024-05-12 12:30] LABS: Iron 29 mcg/dL (45-160); Percent Iron Saturation 15 % (15-50); Total Iron Binding Capacity 193 mcg/dL (228-428); Unsaturated Iron Binding 164 ug/dL
[2024-05-12 12:50] LABS: Ferritin 137 ng/mL (20-250)
[2024-05-12] MEDS: DAPTOmycin 600 MG in 0.9 % Sodium Chloride 50 ML 100 MG IV (13:08)
[2024-05-12] MEDS: metOLazone 5 MG TABLET PO (13:08)
[2024-05-12 16:04] LABS: Glucose, Whole Blood 118 mg/dL (60-115)
[2024-05-12 20:55] LABS: Glucose, Whole Blood 137 mg/dL (60-115)
[2024-05-12] MEDS: Insulin Glargine,Hum.rec.anlog 100 UNIT/ML 10 ML VIAL 15 UNIT SUBCUT (21:00)
[2024-05-13] VITALS (8 sets, daily range): BP systolic 103–120; BP diastolic 55–74; PULSE 69–95; RESP 18–20; TEMP 36.2–36.8; O2SAT 93–98; BMI 31.8
[2024-05-13] MEDS: Meropenem 1 GM VIAL IVPUSH ×3 (00:40→16:15)
[2024-05-13] MEDS: Furosemide 200 MG in 0.9 % Sodium Chloride 80 ML IVCONT ×2 (03:44→23:13)
[2024-05-13] MEDS: Omeprazole 20 MG CAPSULE.DR PO (06:43)
[2024-05-13 07:38] LABS: Glucose, Whole Blood 124 mg/dL (60-115)
[2024-05-13] MEDS: Gabapentin 300 MG CAPSULE PO ×3 (08:16→20:09)
[2024-05-13] MEDS: Colchicine 0.6 MG TABLET PO (08:16)
[2024-05-13] MEDS: Amiodarone HCL 200 MG TABLET PO (08:16)
[2024-05-13] MEDS: Spironolactone 25 MG TABLET PO ×2 (08:16→16:15)
[2024-05-13] MEDS: Aspirin Enteric Coated 81 MG TABLET.DR PO (08:16)
[2024-05-13] MEDS: Cholecalciferol (Vitamin D3) 25 MCG TABLET PO (08:16)
[2024-05-13] MEDS: Valsartan 40 MG TABLET 20 MG PO ×2 (08:16→20:09)
[2024-05-13] MEDS: 0.9 % Sodium Chloride Flush 3 ML SYRINGE IVFLUSH ×2 (08:16→16:16)
[2024-05-13] MEDS: Thiamine HCL 100 MG TABLET PO (08:17)
[2024-05-13] MEDS: Sertraline HCL 25 MG TABLET PO (08:17)
[2024-05-13] MEDS: Apixaban 5 MG TABLET PO ×2 (08:17→20:09)
[2024-05-13 09:04] LABS: Anion Gap 12 (12-20); Blood Urea Nitrogen 34 mg/dL (9-16); Calcium 6.9 mg/dL (8.4-10.2); Carbon Dioxide 33 mmol/L (22-29); Chloride 104 mmol/L (96-108); Creatinine Clr Calc Pharmacy 128.2; Estimated Glomerular Filt Rate > 60; Glucose Random 77 mg/dL (60-115); Potassium 3.7 mmol/L (3.3-5.1); Sodium 145 mmol/L (135-145)
[2024-05-13 11:31] LABS: Glucose, Whole Blood 159 mg/dL (60-115)
--- NOTE | 2024-05-13 12:36 | PM.PNCARD ---
Subjective Subjective Date of Service: 05/13/24 Principal diagnosis: Decompensated congestive heart failure Interval history: Seen examined at bedside. Clinically improving. Physical Exam Vital Signs: Last Vital Signs Temp 98.1 F 05/13/24 11:28 Pulse 83 05/13/24 11:28 Resp 19 05/13/24 11:28 BP 103/63 05/13/24 11:28 Pulse Ox 96 05/13/24 11:28 O2 Del Method Room Air 05/13/24 11:28 O2 Flow Rate 2 05/09/24 15:18 Oxygen Flow Rate 2 05/03/24 16:40 BMI result Body Mass Index 31.8 GENERAL APPEARANCE: in no acute distress, pleasant. NECK: no carotid bruit, + jugular venous distention. SKIN: no suspicious lesions, warm and dry. HEART: Holosystolic murmur left sternal border, regular rate and rhythm. LUNGS: Bilateral crackles at bases. ABDOMEN: soft, nontender. Abdominal ascites abdominal wall edema. EXTREMITIES: + edema. NEUROLOGIC: No gross deficits, AAO X 3 Objective Labs and Meds 05/12/24 06:12 05/13/24 07:48 Lab results: Laboratory Results - last 24 hr 05/12/24 05/12/24 05/12/24 06:12 16:00 20:51 Sodium Potassium Chloride Carbon Dioxide Anion Gap BUN Creatinine Estim Creat Clear Calc Estimated GFR POC Glucose 118 H 137 H Random Glucose Calcium Ferritin 137 05/13/24 05/13/24 05/13/24 07:30 07:48 11:24 Sodium 145 Potassium 3.7 Chloride 104 Carbon Dioxide 33 H Anion Gap 12 BUN 34 H Creatinine 0.75 Estim Creat Clear Calc 128.2 Estimated GFR > 60 POC Glucose 124 H 159 H Random Glucose 77 Calcium 6.9 L D Ferritin Progress Note: A&P Assessment and plan (1) Acute on chronic HFrEF (heart failure with reduced ejection fraction): Status: Acute Plan 58-year-old gentleman with biventricular heart failure who is significantly volume overloaded currently. He also has diabetic infection of left foot and he is on daptomycin and meropenem. He is significantly volume overloaded. Initially he did not respond well to Lasix drip although he was up to 10 milligram/hour. We stopped the beta-lion and then gave him metolazone 5 mg along with bolus dose of 80 mg Lasix. He has started diuresing well since then. Continue Lasix drip at the same rate at this point. Give bolus of 80 mg x 1 Lasix. Continue spironolactone at 25 mg twice a day. Continue amiodarone and Eliquis as before. We will follow along with you. Thank you for allowing me to participate in the care of your patient. Please feel free to contact me if you have any questions. Time Spent With Patient Time: Total time managing care of this patient today ____ minutes. Progress Note: Quality Stroke Does the patient have a stroke diagnosis?: No Procedures Date of Service Date of Service: 05/13/24
--- NOTE | 2024-05-13 12:42 | P.PNIM_ITS ---
Subjective Subjective Date of Service: 05/13/24 Interval History: Seen and examined this morning Follow-up for CHF No overnight events No shortness of breath Review of Systems Review of Systems: Yes all other systems are reviewed and are negative Constitutional Constitutional: Denies chills and Denies fever(s) Physical Exam 2 Vital Signs: Vital Signs: Last Vital Signs Temp 98.1 F 05/13/24 11:28 Pulse 83 05/13/24 11:28 Resp 19 05/13/24 11:28 BP 103/63 05/13/24 11:28 Pulse Ox 96 05/13/24 11:28 O2 Del Method Room Air 05/13/24 11:28 O2 Flow Rate 2 05/09/24 15:18 Oxygen Flow Rate 2 05/03/24 16:40 BMI result Body Mass Index 31.8 Const: General: cooperative, comfortable, no acute distress, alert and awake Nutritional Appearance: overweight Orientation/consciousness: patient oriented x3 Resp: Effort & Inspection: normal respiratory effort, able to speak in complete sentences, no respiratory distress and no use of accessory muscles Cardio: Jugular venous distension: JVD GI: Other: b/l flank edema Inspection: No distended Palpation (GI): Soft to palpation Skin: Other: LLE wound c/d/i dressing Neuro: General: patient oriented x3, moves all extremities and CN's II-XI intact bilaterally Extrem: Other: b/l LE edema, improving Objective Data Active Medications Acetaminophen (Acetaminophen 325 Mg Tablet) 650 mg PO Q6H PRN PRN Reason: Pain, Mild (Pain Scale 1-3), fever or headache Last Admin: 05/04/24 03:37 Dose: 650 mg Documented By: FELICITAS Amiodarone HCl (Amiodarone Hcl 200 Mg Tablet) 200 mg PO DAILY [facility] Last Admin: 05/13/24 08:16 Dose: 200 mg Documented By: RODRICK Apixaban (Apixaban 5 Mg Tablet) 5 mg PO BID [facility] Last Admin: 05/13/24 08:17 Dose: 5 mg Documented By: RODRICK Aspirin (Aspirin Enteric Coated 81 Mg Tablet.) 81 mg PO DAILY [facility] Last Admin: 05/13/24 08:16 Dose: 81 mg Documented By: RODRICK Calcium Carbonate (Calcium Carbonate 750 Mg Tab.Chew) 750 mg PO Q4H PRN PRN Reason: Heartburn Colchicine (Colchicine 0.6 Mg Tablet) 0.6 mg PO DAILY [facility] Last Admin: 05/13/24 08:16 Dose: 0.6 mg Documented By: RODRICK Fluticasone/Vilanterol (Fluticasone/Vilanterol 100/25 Blst.W.Dev) 1 puff INHALE RDAILY [facility] Last Admin: 05/13/24 07:39 Dose: Not Given Documented By: DAVID Non-Admin Reason: Patient Refused Gabapentin (Gabapentin 300 Mg Capsule) 300 mg PO TID [facility] Last Admin: 05/13/24 08:16 Dose: 300 mg Documented By: RODRICK Furosemide 200 mg/ Sodium (Chloride) 100 mls @ 5 mls/hr IVCONT .Q20H [facility] Last Admin: 05/13/24 03:44 Dose: 10 mg/hr, 5 mls/hr Documented By: ARDEN Daptomycin 600 mg/ Sodium (Chloride) 62 mls @ 100 mls/hr IV Q24H [facility] Last Infusion: 05/12/24 15:11 Dose: Infused Documented By: ALEX Insulin Glargine (Insulin Glargine,Hum.Rec.Anlog 100 Unit/Ml 10 Ml Vial) 15 unit SUBCUT BEDTIME [facility] Last Admin: 05/12/24 21:00 Dose: 15 unit Documented By: ARDEN Insulin Human Lispro (Insulin Lispro 100 Unit/Ml 3 Ml Vial) 0 unit SUBCUT QIDACHS [facility]; Protocol Last Admin: 05/13/24 07:50 Dose: Not Given Documented By: RODRICK Non-Admin Reason: No Insulin Coverage Magnesium Hydroxide (Milk Of Magnesia 30 Ml Oral.Susp) 30 ml PO DAILY PRN PRN Reason: Constipation Melatonin (Melatonin 3 Mg Tablet) 6 mg PO BEDTIME PRN PRN Reason: Insomnia Last Admin: 05/04/24 03:37 Dose: 6 mg Documented By: FELICITAS Meropenem (Meropenem 1 Gm Vial) 1 gm IVPUSH Q8H [facility] Last Admin: 05/13/24 08:17 Dose: 1 gm Documented By: RODRICK Omeprazole (Omeprazole 20 Mg Capsule.Dr) 20 mg PO DAILY@0630 [facility] Last Admin: 05/13/24 06:43 Dose: 20 mg Documented By: ARDEN Ondansetron HCl (Ondansetron Hcl 4 Mg/2 Ml Vial) 4 mg IVPUSH Q8H PRN PRN Reason: Nausea and Vomiting Oxycodone HCl (Oxycodone Hcl Immed Release 5 Mg Tablet) 5 mg PO Q6H PRN PRN Reason: Pain, Severe (Pain Scale 7-10) Last Admin: 05/12/24 08:53 Dose: 5 mg Documented By: ALEX Sertraline HCl (Sertraline Hcl 25 Mg Tablet) 25 mg PO DAILY [facility] Last Admin: 05/13/24 08:17 Dose: 25 mg Documented By: RODRICK Sodium Chloride (0.9 % Sodium Chloride Flush 3 Ml Syringe) [facility] Last Admin: 05/13/24 08:16 Dose: 3 ml Documented By: RODRICK Spironolactone (Spironolactone 25 Mg Tablet) 25 mg PO BID@0900,1800 [facility]; Protocol Last Admin: 05/13/24 08:16 Dose: 25 mg Documented By: RODRICK Thiamine HCl (Thiamine Hcl 100 Mg Tablet) 100 mg PO DAILY [facility] Last Admin: 05/13/24 08:17 Dose: 100 mg Documented By: RODRICK Tramadol HCl (Tramadol Hcl 50 Mg Tablet) 50 mg PO Q4H PRN PRN Reason: Pain, Moderate(Pain Scale 4-6) Last Admin: 05/12/24 06:30 Dose: 50 mg Documented By: SHAYLA Valsartan (Valsartan 40 Mg Tablet) 20 mg PO BID [facility]; Protocol Last Admin: 05/13/24 08:16 Dose: 20 mg Documented By: RODRICK Vitamin D (Cholecalciferol (Vitamin D3) 25 Mcg Tablet) 25 mcg PO DAILY [facility] Last Admin: 05/13/24 08:16 Dose: 25 mcg Documented By: RODRICK Labs 05/12/24 06:12 05/13/24 07:48 Labs: Laboratory Results - last 24 hr 05/12/24 05/12/24 05/12/24 06:12 16:00 20:51 Anion Gap Estim Creat Clear Calc Estimated GFR POC Glucose 118 H 137 H Random Glucose Calcium Ferritin 137 05/13/24 05/13/24 05/13/24 07:30 07:48 11:24 Anion Gap 12 Estim Creat Clear Calc 128.2 Estimated GFR > 60 POC Glucose 124 H 159 H Random Glucose 77 Calcium 6.9 L D Ferritin Assessment and Plan (1) Acute on chronic HFrEF (heart failure with reduced ejection fraction): Status: Acute Plan 58-year-old male with pertinent history of sCHF, diabetic foot infection on IV antibiotics, COPD, PAF on Eliquis, CAD status post PCI, KIMANI on CPAP, insulin- dependent diabetes mellitus, mood disorder, PAD among others who presents with Increase fluids and Dyspnea. Anasarca 2/2 Acute on chronic biventricular CHF EF 15-20% s/p AICD Persistent fluid overload/shortness of breath/anasarca -continue with good UP Strict I's and O's, Low-salt diet Continue IV Lasix drip 10 milligram/hours, Aldactone 25 b.i.d. decrease valsartan 20mg BID due to hypotension, transition to entreso if tolerates ARB stopped beta-lion and isordil lasix bolus x1 today follow UP follow BMP Diabetic foot infection with OM on IV Abx Wound care following On IV ertapenem and daptomycin until 05/14/2024 (change to Meropenem while inpt) likely will continue until definitive timeline for surgery is determined Vascular eval appreciated>continue wound care. will likely need transmetatarsal amputation with prior arterial evaluation. time TBD based on cardiac status, currently needs to be medically optimized continue local wound care Peripheral arterial disease as above Acute on chronic Iron def. anemia No evidence of bleeding , Low iron stores negative occult last admission s/p IV Iron, DC on PO supplement will need outpatient GI follow up for further eval Insulin-dependent diabetes mellitus 2 with hyperglycemia basal plus insulin regimen ADA diet COPD Continue home inhalers KIMANI CPAP at bedtime CAD On aspirin. Not on statin Paroxysmal atrial fibrillation On amiodarone and Eliquis Mood disorder Continue home mood stabilizers DVT prophylaxis: Eliquis Full code The patient requires ongoing inpatient hospital stay for IV diuresis, close monitoring of volume status and cardiac status, possible surgical intervention for foot wound which is not possible in a lesser acute setting Quality Stroke Does the patient have a stroke diagnosis?: No VTE Prior VTE?: No VTE Risk Level:: Medical - moderate - high VTE Device Contraindication: Treatment Not Indicated VTE Drug Contraindication: N/A - Med Ordered
[2024-05-13] MEDS: DAPTOmycin 600 MG in 0.9 % Sodium Chloride 50 ML 100 MG IV (13:07)
[2024-05-13] MEDS: Insulin Lispro 100 UNIT/ML 3 ML VIAL SUBCUT (13:07)
[2024-05-13] MEDS: Furosemide 100 MG/10 ML VIAL 80 MG IVPUSH (13:08)
--- NOTE | 2024-05-13 13:29 | PC.NURSE ---
Per MD remove andrews catheter and begin voiding trial. Andrews removed on 05/13/24 at 1330. Patient tolerated well and male purewick applied. Patient is due to void on 05/13/24 by 1930. All other needs met at this time, call sal within reach.
[2024-05-13 16:45] LABS: Glucose, Whole Blood 129 mg/dL (60-115)
[2024-05-13] MEDS: oxyCODONE HCl Immed Release 5 MG TABLET PO (20:10)
[2024-05-13 20:49] LABS: Glucose, Whole Blood 150 mg/dL (60-115)
[2024-05-13] MEDS: Insulin Glargine,Hum.rec.anlog 100 UNIT/ML 10 ML VIAL 15 UNIT SUBCUT (21:13)
[2024-05-14] VITALS (9 sets, daily range): BP systolic 92–114; BP diastolic 51–61; PULSE 78–92; RESP 16–20; TEMP 36.2–36.6; O2SAT 94–98
[2024-05-14] MEDS: 0.9 % Sodium Chloride Flush 3 ML SYRINGE IVFLUSH ×2 (00:45→08:27)
[2024-05-14] MEDS: Meropenem 1 GM VIAL IVPUSH ×3 (01:42→18:13)
[2024-05-14] MEDS: Omeprazole 20 MG CAPSULE.DR PO (06:01)
[2024-05-14 07:42] LABS: Anion Gap 17 (12-20); Blood Urea Nitrogen 41 mg/dL (9-16); Carbon Dioxide 39 mmol/L (22-29); Chloride 91 mmol/L (96-108); Estimated Glomerular Filt Rate 57; Glucose Random 98 mg/dL (60-115); Potassium 4.5 mmol/L (3.3-5.1); Sodium 142 mmol/L (135-145)
[2024-05-14 08:02] LABS: Glucose, Whole Blood 93 mg/dL (60-115)
[2024-05-14] MEDS: Colchicine 0.6 MG TABLET PO (08:25)
[2024-05-14] MEDS: Apixaban 5 MG TABLET PO ×2 (08:26→21:44)
[2024-05-14] MEDS: Valsartan 40 MG TABLET 20 MG PO ×2 (08:26→21:44)
[2024-05-14] MEDS: Amiodarone HCL 200 MG TABLET PO (08:26)
[2024-05-14] MEDS: Gabapentin 300 MG CAPSULE PO ×3 (08:26→21:43)
[2024-05-14] MEDS: Sertraline HCL 25 MG TABLET PO (08:26)
[2024-05-14] MEDS: Aspirin Enteric Coated 81 MG TABLET.DR PO (08:26)
[2024-05-14] MEDS: Spironolactone 25 MG TABLET PO ×2 (08:26→18:13)
[2024-05-14] MEDS: Cholecalciferol (Vitamin D3) 25 MCG TABLET PO (08:27)
[2024-05-14] MEDS: Thiamine HCL 100 MG TABLET PO (08:27)
[2024-05-14 11:28] LABS: Glucose, Whole Blood 91 mg/dL (60-115)
--- NOTE | 2024-05-14 11:30 | P.PNIM_ITS ---
Subjective Subjective Date of Service: 05/14/24 Interval History: seen and examined this morning follow up for CHF, foot infection no overnight events edema improving Review of Systems Review of Systems: Yes all other systems are reviewed and are negative Constitutional Constitutional: Denies chills and Denies fever(s) Cardiovascular Cardiovascular: Denies chest pain and Denies palpitations Gastrointestinal Gastrointestinal: Denies nausea and Denies vomiting Endocrine Endocrine: Denies palpitations Physical Exam 2 Vital Signs: Vital Signs: Last Vital Signs Temp 97.8 F 05/14/24 08:00 Pulse 78 05/14/24 08:00 Resp 20 05/14/24 08:00 BP 92/56 L 05/14/24 08:26 Pulse Ox 94 05/14/24 08:00 O2 Del Method Room Air 05/14/24 08:00 O2 Flow Rate 2 05/13/24 19:55 Oxygen Flow Rate 2 05/03/24 16:40 BMI result Body Mass Index 30.0 Const: General: cooperative, comfortable, no acute distress, alert and awake Nutritional Appearance: overweight Orientation/consciousness: patient oriented x3 Resp: Effort & Inspection: normal respiratory effort, able to speak in complete sentences, no respiratory distress and no use of accessory muscles A uscultation: no wheezes Cardio: Jugular venous distension: JVD Rate: regular rate GI: Other: b/l flank edema much improved Inspection: No distended Palpation (GI): Soft to palpation and nontender Skin: Other: LLE wound c/d/i dressing Neuro: General: patient oriented x3, moves all extremities and CN's II-XI intact bilaterally Extrem: Other: b/l LE edema, improving Objective Data Active Medications Acetaminophen (Acetaminophen 325 Mg Tablet) 650 mg PO Q6H PRN PRN Reason: Pain, Mild (Pain Scale 1-3), fever or headache Last Admin: 05/04/24 03:37 Dose: 650 mg Documented By: FELICITAS Amiodarone HCl (Amiodarone Hcl 200 Mg Tablet) 200 mg PO DAILY [facility] Last Admin: 05/14/24 08:26 Dose: 200 mg Documented By: RODRICK Apixaban (Apixaban 5 Mg Tablet) 5 mg PO BID [facility] Last Admin: 05/14/24 08:26 Dose: 5 mg Documented By: RODRICK Aspirin (Aspirin Enteric Coated 81 Mg Tablet.Dr) 81 mg PO DAILY [facility] Last Admin: 05/14/24 08:26 Dose: 81 mg Documented By: RODRICK Calcium Carbonate (Calcium Carbonate 750 Mg Tab.Chew) 750 mg PO Q4H PRN PRN Reason: Heartburn Colchicine (Colchicine 0.6 Mg Tablet) 0.6 mg PO DAILY [facility] Last Admin: 05/14/24 08:25 Dose: 0.6 mg Documented By: RODRICK Fluticasone/Vilanterol (Fluticasone/Vilanterol 100/25 Blst.W.Dev) 1 puff INHALE RDAILY [facility] Last Admin: 05/14/24 08:26 Dose: Not Given Documented By: MALAIKA Non-Admin Reason: Patient Refused Gabapentin (Gabapentin 300 Mg Capsule) 300 mg PO TID [facility] Last Admin: 05/14/24 08:26 Dose: 300 mg Documented By: RODRICK Furosemide 200 mg/ Sodium (Chloride) 100 mls @ 5 mls/hr IVCONT .Q20H [facility] Last Admin: 05/13/24 23:13 Dose: 10 mg/hr, 5 mls/hr Documented By: YANIV Daptomycin 600 mg/ Sodium (Chloride) 62 mls @ 100 mls/hr IV Q24H [facility] Last Infusion: 05/13/24 13:54 Dose: Infused Documented By: RODRICK Insulin Glargine (Insulin Glargine,Hum.Rec.Anlog 100 Unit/Ml 10 Ml Vial) 15 unit SUBCUT BEDTIME [facility] Last Admin: 05/13/24 21:13 Dose: 15 unit Documented By: YANIV Insulin Human Lispro (Insulin Lispro 100 Unit/Ml 3 Ml Vial) 0 unit SUBCUT QIDACHS [facility]; Protocol Last Admin: 05/14/24 08:02 Dose: Not Given Documented By: RODRICK Non-Admin Reason: No Insulin Coverage Magnesium Hydroxide (Milk Of Magnesia 30 Ml Oral.Susp) 30 ml PO DAILY PRN PRN Reason: Constipation Melatonin (Melatonin 3 Mg Tablet) 6 mg PO BEDTIME PRN PRN Reason: Insomnia Last Admin: 05/04/24 03:37 Dose: 6 mg Documented By: REJI-SHANIA Meropenem (Meropenem 1 Gm Vial) 1 gm IVPUSH Q8H [facility] Last Admin: 05/14/24 08:25 Dose: 1 gm Documented By: RODRICK Omeprazole (Omeprazole 20 Mg Capsule.Dr) 20 mg PO DAILY@0630 [facility] Last Admin: 05/14/24 06:01 Dose: 20 mg Documented By: YANIV Ondansetron HCl (Ondansetron Hcl 4 Mg/2 Ml Vial) 4 mg IVPUSH Q8H PRN PRN Reason: Nausea and Vomiting Oxycodone HCl (Oxycodone Hcl Immed Release 5 Mg Tablet) 5 mg PO Q6H PRN PRN Reason: Pain, Severe (Pain Scale 7-10) Last Admin: 05/13/24 20:10 Dose: 5 mg Documented By: YANIV Sertraline HCl (Sertraline Hcl 25 Mg Tablet) 25 mg PO DAILY [facility] Last Admin: 05/14/24 08:26 Dose: 25 mg Documented By: RODRICK Sodium Chloride (0.9 % Sodium Chloride Flush 3 Ml Syringe) [facility] Last Admin: 05/14/24 08:27 Dose: 3 ml Documented By: RODRICK Spironolactone (Spironolactone 25 Mg Tablet) 25 mg PO BID@0900,1800 [facility]; Protocol Last Admin: 05/14/24 08:26 Dose: 25 mg Documented By: RODRICK Thiamine HCl (Thiamine Hcl 100 Mg Tablet) 100 mg PO DAILY [facility] Last Admin: 05/14/24 08:27 Dose: 100 mg Documented By: RODRICK Tramadol HCl (Tramadol Hcl 50 Mg Tablet) 50 mg PO Q4H PRN PRN Reason: Pain, Moderate(Pain Scale 4-6) Last Admin: 05/12/24 06:30 Dose: 50 mg Documented By: SHAYLA Valsartan (Valsartan 40 Mg Tablet) 20 mg PO BID [facility]; Protocol Last Admin: 05/14/24 08:26 Dose: 20 mg Documented By: RODRICK Vitamin D (Cholecalciferol (Vitamin D3) 25 Mcg Tablet) 25 mcg PO DAILY [facility] Last Admin: 05/14/24 08:27 Dose: 25 mcg Documented By: RODRICK Labs 05/12/24 06:12 05/14/24 06:32 Labs: Laboratory Results - last 24 hr 05/13/24 05/13/24 05/13/24 11:24 16:41 20:45 Hold Purple Top Anion Gap Estim Creat Clear Calc Estimated GFR POC Glucose 159 H 129 H 150 H Random Glucose Calcium 05/14/24 05/14/24 05/14/24 06:32 07:54 11:01 Hold Purple Top SEE NOTE Anion Gap 17 Estim Creat Clear Calc 73.0 Estimated GFR 57 POC Glucose 93 91 Random Glucose 98 Calcium 9.0 D Assessment and Plan (1) Diabetic infection of left foot: Status: Acute (2) Acute on chronic HFrEF (heart failure with reduced ejection fraction): Status: Acute Plan 58-year-old male with pertinent history of sCHF, diabetic foot infection on IV antibiotics, COPD, PAF on Eliquis, CAD status post PCI, KIMANI on CPAP, insulin- dependent diabetes mellitus, mood disorder, PAD among others who presents with Increase fluids and Dyspnea. Anasarca 2/2 Acute on chronic biventricular CHF EF 15-20% s/p AICD. BP remains soft but stable, to be expected given underlying low EF Persistent fluid overload/shortness of breath/anasarca -continue with good UP - 22L to date Strict I's and O's, Low-salt diet Continue IV Lasix drip 10 milligram/hours, Aldactone 25 b.i.d. decrease valsartan 20mg BID due to hypotension stopped beta-lion and isordil follow BMP Diabetic foot infection with OM on IV Abx Wound care following On IV ertapenem and daptomycin until 05/14/2024 (changed to Meropenem while inpt) likely will continue until definitive timeline for surgery is determined, will discuss with ID Vascular eval appreciated>continue wound care. will likely need transmetatarsal amputation with prior arterial evaluation. time TBD based on cardiac status, currently needs to be medically optimized continue local wound care Peripheral arterial disease as above Acute on chronic Iron def. anemia No evidence of bleeding , Low iron stores negative occult last admission s/p IV Iron, DC on PO supplement will need outpatient GI follow up for further eval Insulin-dependent diabetes mellitus 2 with hyperglycemia basal plus insulin regimen ADA diet COPD Continue home inhalers KIMANI CPAP at bedtime CAD On aspirin. Not on statin Paroxysmal atrial fibrillation On amiodarone and Eliquis Mood disorder Continue home mood stabilizers DVT prophylaxis: Eliquis Full code The patient requires ongoing inpatient hospital stay for IV diuresis, close monitoring of volume status and cardiac status, possible surgical intervention for foot wound which is not possible in a lesser acute setting Quality Stroke Does the patient have a stroke diagnosis?: No VTE Prior VTE?: No VTE Risk Level:: Medical - moderate - high VTE Device Contraindication: Treatment Not Indicated VTE Drug Contraindication: N/A - Med Ordered
--- NOTE | 2024-05-14 12:48 | PM.PNCARD ---
Subjective Subjective Date of Service: 05/14/24 Principal diagnosis: Decompensated congestive heart failure Interval history: Seen examined at bedside. Diuresing well. Still volume overloaded. Physical Exam Vital Signs: Last Vital Signs Temp 97.2 F 05/14/24 11:46 Pulse 80 05/14/24 11:46 Resp 19 05/14/24 11:46 BP 97/56 L 05/14/24 11:46 Pulse Ox 98 05/14/24 11:46 O2 Del Method Room Air 05/14/24 11:46 O2 Flow Rate 2 05/13/24 19:55 Oxygen Flow Rate 2 05/03/24 16:40 BMI result Body Mass Index 30.0 GENERAL APPEARANCE: in no acute distress, pleasant. NECK: no carotid bruit, + jugular venous distention. SKIN: no suspicious lesions, warm and dry. HEART: Holosystolic murmur left sternal border, regular rate and rhythm. LUNGS: Bilateral crackles at bases. ABDOMEN: soft, nontender. Abdominal ascites abdominal wall edema. EXTREMITIES: + edema. NEUROLOGIC: No gross deficits, AAO X 3 Objective Labs and Meds 05/12/24 06:12 05/14/24 06:32 Lab results: Laboratory Results - last 24 hr 05/13/24 05/13/24 05/14/24 16:41 20:45 06:32 Hold Purple Top SEE NOTE Sodium 142 Potassium 4.5 D Chloride 91 L Carbon Dioxide 39 H Anion Gap 17 BUN 41 H Creatinine 1.28 Estim Creat Clear Calc 73.0 Estimated GFR 57 POC Glucose 129 H 150 H Random Glucose 98 Calcium 9.0 D 05/14/24 05/14/24 07:54 11:01 Hold Purple Top Sodium Potassium Chloride Carbon Dioxide Anion Gap BUN Creatinine Estim Creat Clear Calc Estimated GFR POC Glucose 93 91 Random Glucose Calcium Imaging Radiologist's impression: Impressions Venous Duplex 05/13/24 13:27 IMPRESSION: No evidence of deep venous thrombosis involving the left upper extremity. Electronically signed by: Shin Siddiqui MD 05/13/2024 04:18 PM [facility] Progress Note: A&P Assessment and plan (1) Acute on chronic HFrEF (heart failure with reduced ejection fraction): Status: Acute Plan 58-year-old gentleman with biventricular heart failure who is significantly volume overloaded currently. He also has diabetic infection of left foot and he is on daptomycin and meropenem. He is significantly volume overloaded. Initially he did not respond well to Lasix drip although he was up to 10 milligram/hour. We stopped the beta-lion and then gave him metolazone 5 mg along with bolus dose of 80 mg Lasix. He has started diuresing well since then. Continue Lasix drip at the same rate at this point. Continue spironolactone at 25 mg twice a day. Continue amiodarone and Eliquis as before. He may need transmetatarsal amputation in the next week but diabetic foot infection. I think he is intermediate to high-risk for perioperative complications. We will follow along with you. Thank you for allowing me to participate in the care of your patient. Please feel free to contact me if you have any questions. Time Spent With Patient Time: Total time managing care of this patient today ____ minutes. Progress Note: Quality Stroke Does the patient have a stroke diagnosis?: No Procedures Date of Service Date of Service: 05/14/24
[2024-05-14] MEDS: DAPTOmycin 600 MG in 0.9 % Sodium Chloride 50 ML 100 MG IV (14:10)
[2024-05-14 15:43] LABS: Glucose, Whole Blood 121 mg/dL (60-115)
[2024-05-14] MEDS: oxyCODONE HCl Immed Release 5 MG TABLET PO (18:18)
[2024-05-14 20:36] LABS: Glucose, Whole Blood 107 mg/dL (60-115)
[2024-05-14] MEDS: traMADoL HCL 50 MG TABLET PO (21:44)
[2024-05-14] MEDS: Melatonin 3 MG TABLET 6 MG PO (21:45)
[2024-05-14] MEDS: Insulin Glargine,Hum.rec.anlog 100 UNIT/ML 10 ML VIAL 15 UNIT SUBCUT (21:45)
[2024-05-15] VITALS (7 sets, daily range): BP systolic 88–105; BP diastolic 51–64; PULSE 77–92; RESP 15–19; TEMP 36.2–36.9; O2SAT 94–99; BMI 29.1
[2024-05-15] MEDS: Furosemide 200 MG in 0.9 % Sodium Chloride 80 ML IVCONT (00:13)
[2024-05-15] MEDS: 0.9 % Sodium Chloride Flush 3 ML SYRINGE IVFLUSH ×3 (00:15→22:33)
[2024-05-15] MEDS: Meropenem 1 GM VIAL IVPUSH ×3 (00:23→17:33)
[2024-05-15] MEDS: Omeprazole 20 MG CAPSULE.DR PO (06:08)
[2024-05-15] MEDS: oxyCODONE HCl Immed Release 5 MG TABLET PO ×3 (06:08→22:31)
[2024-05-15 07:12] LABS: Glucose, Whole Blood 104 mg/dL (60-115)
[2024-05-15 07:30] LABS: Anion Gap 17 (12-20); Blood Urea Nitrogen 45 mg/dL (9-16); Calcium 9.3 mg/dL (8.4-10.2); Carbon Dioxide 38 mmol/L (22-29); Chloride 89 mmol/L (96-108); Creatinine Clr Calc Pharmacy 58.3; Estimated Glomerular Filt Rate 45; Glucose Random 93 mg/dL (60-115); Potassium 4.5 mmol/L (3.3-5.1); Sodium 139 mmol/L (135-145)
--- NOTE | 2024-05-15 09:36 | MHC.CM.PN ---
Per DIRECTOR OF BUSINESS SYSTEMS, Patient is not medically cleared for dc (need Vascular input/? surgery on foot);home/resume services is the tentative plan and CM will continue to follow.
--- NOTE | 2024-05-15 09:51 | P.PNIM_ITS ---
Subjective Subjective Date of Service: 05/15/24 Interval History: seen and examined this morning follow up for CHF, foot infection no overnight events edema improving Review of Systems Review of Systems: Yes all other systems are reviewed and are negative Constitutional Constitutional: Denies chills and Denies fever(s) Cardiovascular Cardiovascular: Denies chest pain and Denies palpitations Gastrointestinal Gastrointestinal: Denies nausea and Denies vomiting Endocrine Endocrine: Denies palpitations Physical Exam 2 Vital Signs: Vital Signs: Last Vital Signs Temp 97.4 F 05/15/24 07:25 Pulse 82 05/15/24 07:25 Resp 19 05/15/24 07:25 BP 104/57 L 05/15/24 07:25 Pulse Ox 98 05/15/24 07:25 O2 Del Method CPAP 05/15/24 07:25 O2 Flow Rate 2 05/13/24 19:55 Oxygen Flow Rate 2 05/03/24 16:40 BMI result Body Mass Index 29.1 Appearing in no acute distress lung sounds are clear to auscultation heart regular rate rhythm, clear S1, S2 positive bowel sounds, abdomen is soft, nontender neuro patient is alert x3, no focal deficits Still with some mild anasarca to abdominal area Objective Data Active Medications Acetaminophen (Acetaminophen 325 Mg Tablet) 650 mg PO Q6H PRN PRN Reason: Pain, Mild (Pain Scale 1-3), fever or headache Last Admin: 05/04/24 03:37 Dose: 650 mg Documented By: FELICITAS Amiodarone HCl (Amiodarone Hcl 200 Mg Tablet) 200 mg PO DAILY [facility] Last Admin: 05/14/24 08:26 Dose: 200 mg Documented By: RODRICK Apixaban (Apixaban 5 Mg Tablet) 5 mg PO BID [facility] Last Admin: 05/14/24 21:44 Dose: 5 mg Documented By: SHAYLA Aspirin (Aspirin Enteric Coated 81 Mg Tablet.) 81 mg PO DAILY [facility] Last Admin: 05/14/24 08:26 Dose: 81 mg Documented By: RODRICK Calcium Carbonate (Calcium Carbonate 750 Mg Tab.Chew) 750 mg PO Q4H PRN PRN Reason: Heartburn Colchicine (Colchicine 0.6 Mg Tablet) 0.6 mg PO DAILY [facility] Last Admin: 05/14/24 08:25 Dose: 0.6 mg Documented By: RODRICK Fluticasone/Vilanterol (Fluticasone/Vilanterol 100/25 Blst.W.Dev) 1 puff INHALE RDAILY [facility] Last Admin: 05/15/24 07:37 Dose: Not Given Documented By: MAIKOL Non-Admin Reason: Patient Refused Gabapentin (Gabapentin 300 Mg Capsule) 300 mg PO TID [facility] Last Admin: 05/14/24 21:43 Dose: 300 mg Documented By: SHAYLA Furosemide 200 mg/ Sodium (Chloride) 100 mls @ 5 mls/hr IVCONT .Q20H [facility] Last Admin: 05/15/24 00:13 Dose: 10 mg/hr, 5 mls/hr Documented By: SHAYLA Comments: previous bag infusing until this time. previous bag now empty but tubing + drip chamber still full. new bag now in place Daptomycin 600 mg/ Sodium (Chloride) 62 mls @ 100 mls/hr IV Q24H [facility] Last Infusion: 05/14/24 14:50 Dose: Infused Documented By: RODRICK Insulin Glargine (Insulin Glargine,Hum.Rec.Anlog 100 Unit/Ml 10 Ml Vial) 15 unit SUBCUT BEDTIME [facility] Last Admin: 05/14/24 21:45 Dose: 15 unit Documented By: SHAYLA Insulin Human Lispro (Insulin Lispro 100 Unit/Ml 3 Ml Vial) 0 unit SUBCUT QIDACHS [facility]; Protocol Last Admin: 05/14/24 21:45 Dose: Not Given Documented By: SHAYLA Non-Admin Reason: No Insulin Coverage Magnesium Hydroxide (Milk Of Magnesia 30 Ml Oral.Susp) 30 ml PO DAILY PRN PRN Reason: Constipation Melatonin (Melatonin 3 Mg Tablet) 6 mg PO BEDTIME PRN PRN Reason: Insomnia Last Admin: 05/14/24 21:45 Dose: 6 mg Documented By: SHAYLA Meropenem (Meropenem 1 Gm Vial) 1 gm IVPUSH Q8H [facility] Last Admin: 05/15/24 00:23 Dose: 1 gm Documented By: SHAYLA Omeprazole (Omeprazole 20 Mg Capsule.Dr) 20 mg PO DAILY@0630 [facility] Last Admin: 05/15/24 06:08 Dose: 20 mg Documented By: SHAYLA Ondansetron HCl (Ondansetron Hcl 4 Mg/2 Ml Vial) 4 mg IVPUSH Q8H PRN PRN Reason: Nausea and Vomiting Oxycodone HCl (Oxycodone Hcl Immed Release 5 Mg Tablet) 5 mg PO Q6H PRN PRN Reason: Pain, Severe (Pain Scale 7-10) Last Admin: 05/15/24 06:08 Dose: 5 mg Documented By: SHAYLA Sertraline HCl (Sertraline Hcl 25 Mg Tablet) 25 mg PO DAILY [facility] Last Admin: 05/14/24 08:26 Dose: 25 mg Documented By: RODRICK Sodium Chloride (0.9 % Sodium Chloride Flush 3 Ml Syringe) [facility] Last Admin: 05/15/24 00:15 Dose: 3 ml Documented By: SHAYLA Spironolactone (Spironolactone 25 Mg Tablet) 25 mg PO BID@0900,1800 [facility]; Protocol Last Admin: 05/14/24 18:13 Dose: 25 mg Documented By: RODRICK Thiamine HCl (Thiamine Hcl 100 Mg Tablet) 100 mg PO DAILY [facility] Last Admin: 05/14/24 08:27 Dose: 100 mg Documented By: RODRICK Tramadol HCl (Tramadol Hcl 50 Mg Tablet) 50 mg PO Q4H PRN PRN Reason: Pain, Moderate(Pain Scale 4-6) Last Admin: 05/14/24 21:44 Dose: 50 mg Documented By: SHAYLA Valsartan (Valsartan 40 Mg Tablet) 20 mg PO BID [facility]; Protocol Last Admin: 05/14/24 21:44 Dose: 20 mg Documented By: SHAYLA Vitamin D (Cholecalciferol (Vitamin D3) 25 Mcg Tablet) 25 mcg PO DAILY [facility] Last Admin: 05/14/24 08:27 Dose: 25 mcg Documented By: RODRICK Labs 05/12/24 06:12 05/15/24 06:09 Labs: Laboratory Results - last 24 hr 05/14/24 05/14/24 05/14/24 11:01 15:36 20:31 Anion Gap Estim Creat Clear Calc Estimated GFR POC Glucose 91 121 H 107 Random Glucose Calcium 05/15/24 05/15/24 06:09 07:08 Anion Gap 17 Estim Creat Clear Calc 58.3 Estimated GFR 45 POC Glucose 104 Random Glucose 93 Calcium 9.3 Assessment and Plan (1) Diabetic infection of left foot: Status: Acute (2) Acute on chronic HFrEF (heart failure with reduced ejection fraction): Status: Acute Plan 58-year-old male with pertinent history of sCHF, diabetic foot infection on IV antibiotics, COPD, PAF on Eliquis, CAD status post PCI, KIMANI on CPAP, insulin- dependent diabetes mellitus, mood disorder, PAD among others who presents with Increase fluids and Dyspnea. Anasarca 2/2 Acute on chronic biventricular CHF EF 15-20% s/p AICD. BP remains soft but stable, to be expected given underlying low EF Persistent fluid overload/shortness of breath/anasarca -continue with good UP - 28L to date Strict I's and O's, Low-salt diet Continue IV Lasix drip 10 milligram/hours, Aldactone 25 b.i.d. decrease valsartan 20mg BID due to hypotension stopped beta-lion and isordil follow BMP Diabetic foot infection with OM on IV Abx Wound care following On IV ertapenem and daptomycin until 05/14/2024 (changed to Meropenem while inpt) likely will continue until definitive timeline for surgery is determined, will discuss with ID Vascular eval appreciated>continue wound care. will likely need transmetatarsal amputation with prior arterial evaluation. time TBD based on cardiac status, currently needs to be medically optimized continue local wound care Peripheral arterial disease as above Acute on chronic Iron def. anemia No evidence of bleeding , Low iron stores negative occult last admission s/p IV Iron, DC on PO supplement will need outpatient GI follow up for further eval Insulin-dependent diabetes mellitus 2 with hyperglycemia basal plus insulin regimen ADA diet COPD Continue home inhalers KIMANI CPAP at bedtime CAD On aspirin. Not on statin Paroxysmal atrial fibrillation On amiodarone and Eliquis Mood disorder Continue home mood stabilizers DVT prophylaxis: [place] Attending Dr. Dave Full code The patient requires ongoing inpatient hospital stay for IV diuresis, close monitoring of volume status and cardiac status, possible surgical intervention for foot wound which is not possible in a lesser acute setting Quality Stroke Does the patient have a stroke diagnosis?: No VTE Prior VTE?: No VTE Risk Level:: Medical - moderate - high VTE Device Contraindication: Treatment Not Indicated VTE Drug Contraindication: N/A - Med Ordered
--- NOTE | 2024-05-15 10:08 | PM.PNCARD ---
Subjective Subjective Date of Service: 05/15/24 Principal diagnosis: Decompensated congestive heart failure Interval history: Jr has diuresed significantly overnight about 6 L negative balance. Overall since hospitalization about 28 L negative balance. He says abdominal wall edema has finally improved. His shortness of breath is improved. Walk to the hallway yesterday. His creatinine has bumped as expected due to over diuresis since yesterday. Blood pressure is borderline low. Denies any lightheadedness, syncope. No atrial fibrillation. Review of Systems Constitutional: Reports weakness Cardiovascular: Denies Abdominal Distension, Denies leg edema, Denies lightheadedness, Denies Loss of Consciousness, Reports dyspnea and Denies paroxysmal nocturnal dyspnea Respiratory: Reports dyspnea Reports system reviewed and no additional complaints, except as documented and Reports weakness Physical Exam Vital Signs: Last Vital Signs Temp 97.4 F 05/15/24 07:25 Pulse 82 05/15/24 07:25 Resp 19 05/15/24 07:25 BP 104/57 L 05/15/24 07:25 Pulse Ox 98 05/15/24 07:25 O2 Del Method CPAP 05/15/24 07:25 O2 Flow Rate 2 05/13/24 19:55 Oxygen Flow Rate 2 05/03/24 16:40 BMI result Body Mass Index 29.1 GENERAL APPEARANCE: in no acute distress, pleasant. NECK: no carotid bruit, + jugular venous distention. SKIN: no suspicious lesions, warm and dry. HEART: Holosystolic murmur left sternal border, regular rate and rhythm. LUNGS: Bilateral crackles at bases. ABDOMEN: soft, nontender. Abdominal ascites abdominal wall edema. EXTREMITIES: + edema. NEUROLOGIC: No gross deficits, AAO X 3 Objective Labs and Meds 05/12/24 06:12 05/15/24 06:09 Lab results: Laboratory Results - last 24 hr 05/14/24 05/14/24 05/14/24 11:01 15:36 20:31 Sodium Potassium Chloride Carbon Dioxide Anion Gap BUN Creatinine Estim Creat Clear Calc Estimated GFR POC Glucose 91 121 H 107 Random Glucose Calcium 05/15/24 05/15/24 06:09 07:08 Sodium 139 Potassium 4.5 Chloride 89 L Carbon Dioxide 38 H Anion Gap 17 BUN 45 H Creatinine 1.58 H Estim Creat Clear Calc 58.3 Estimated GFR 45 POC Glucose 104 Random Glucose 93 Calcium 9.3 Progress Note: A&P Assessment and plan (1) Acute on chronic HFrEF (heart failure with reduced ejection fraction): Status: Acute Assessment and Plan: Heart failure with reduced ejection fraction with multiple parameters for advancing heart failure to stage D, with waxing and waning renal function with diuresis, low blood pressure with poor tolerance of neurohormonal modulators, iron-deficiency anemia and multiple recent hospitalization related to congestive heart failure decompensation. Since this hospitalization he has diuresed 28 L. Clinically appears much improved. Will switch him to p.o. torsemide 20 mg b.i.d.. Strict intake and output chart needs to be pursued. Continue valsartan and spironolactone. Blood pressure is not low side and can not switch to Entresto and/or add beta-lion therapy for now. I think patient if by tomorrow remained stable and renal function has improved would consider discharge. I am going to refer him for evaluation to advanced heart failure Clinic either at [facility] or [facility] for consideration of heart replacement therapy. This was discussed with him. He understands and agrees. Continue rhythm control approach. Continue iron-deficiency treatment with intermittent iron infusions. This can be done as an outpatient (2) Paroxysmal atrial fibrillation: Status: Acute Assessment and Plan: Paroxysmal atrial fibrillation, has remained suppressed on amiodarone therapy. Overall continue rhythm control approach. Continue amiodarone therapy. Continue full oral anticoagulation, will follow with you. Time Spent With Patient Time: Total time managing care of this patient today ____ minutes. Progress Note: Quality Stroke Does the patient have a stroke diagnosis?: No Procedures Date of Service Date of Service: 05/15/24
[2024-05-15] MEDS: Amiodarone HCL 200 MG TABLET PO (10:20)
[2024-05-15] MEDS: Spironolactone 25 MG TABLET PO ×2 (10:20→17:33)
[2024-05-15] MEDS: Colchicine 0.6 MG TABLET PO (10:20)
[2024-05-15] MEDS: Valsartan 40 MG TABLET 20 MG PO (10:20)
[2024-05-15] MEDS: Cholecalciferol (Vitamin D3) 25 MCG TABLET PO (10:20)
[2024-05-15] MEDS: Gabapentin 300 MG CAPSULE PO ×3 (10:20→22:32)
[2024-05-15] MEDS: Aspirin Enteric Coated 81 MG TABLET.DR PO (10:20)
[2024-05-15] MEDS: Thiamine HCL 100 MG TABLET PO (10:20)
[2024-05-15] MEDS: Apixaban 5 MG TABLET PO ×2 (10:20→22:33)
[2024-05-15] MEDS: Sertraline HCL 25 MG TABLET PO (10:26)
[2024-05-15 11:23] LABS: Glucose, Whole Blood 166 mg/dL (60-115)
[2024-05-15] MEDS: Insulin Lispro 100 UNIT/ML 3 ML VIAL SUBCUT ×2 (11:45→22:33)
[2024-05-15] MEDS: DAPTOmycin 600 MG in 0.9 % Sodium Chloride 50 ML 100 MG IV (13:26)
--- NOTE | 2024-05-15 13:56 | P.PNVS_ITS ---
Subjective Subjective Date of Service: 05/15/24 Interval history: Jr is doing well, he is out of bed this morning into the chair. He is eating and drinking well. He states he is feeling better overall. He has no concerns this morning. Physical Exam Vital Signs: Vital Signs: Last Vital Signs Temp 97.1 F 05/15/24 11:39 Pulse 81 05/15/24 11:39 Resp 18 05/15/24 11:39 BP 90/64 05/15/24 11:39 Pulse Ox 99 05/15/24 11:39 O2 Del Method Nasal Cannula 05/15/24 11:39 O2 Flow Rate 2 05/15/24 11:39 Oxygen Flow Rate 2 05/03/24 16:40 BMI result Body Mass Index 29.1 Const: General: comfortable and no acute distress Orientation /consciousness: patient oriented x3 HEENT: Ears: hearing grossly normal bilaterally Resp: Effort & Inspection: normal respiratory effort and able to speak in complete sentences Auscultation: clear to auscultation bilaterally Cardio: Rate: regular rate Rhythm: regular rhythm Heart sounds: S1 normal heart sound present and S2 normal heart sound present Bruits: no abdominal aortic bruits, no carotid bruits, no femoral bruits and no renal bruits GI: Palpation (GI): No Abdominal aortic bruit present Neuro: General: patient oriented x3 Cranial nerves: Yes CN's II-XII intact bilaterally Extrem: Other: Left foot: wrapped, did not take down this morning Progress Note: A&P Assessment and plan (1) PAD (peripheral artery disease): Status: Acute Assessment and Plan: Jr is doing well. We will be taking him for an angio tomorrow morning for ongoing left foot nonhealing ulcers/wounds. We discussed the procedure and the possibility of needing stents/balloons as well, depending on what is found on the angio. The pt is in agreement with the procedure. He will be made NPO at midnight and pre-op orders have been entered. If there are any questions or concerns, please do not hesitate to reach out to us. Time Spent With Patient Time: Total time managing care of this patient today __25__ minutes. Procedures Date of Service Date of Service: 05/15/24 Quality Stroke Does the patient have a stroke diagnosis?: No VTE Prior VTE?: No VTE Risk Level:: Medical - moderate - high VTE Device Contraindication: Treatment Not Indicated VTE Drug Contraindication: N/A - Med Ordered
--- NOTE | 2024-05-15 14:25 | PM.EVENT ---
Event Note Date of Service: 05/15/24 Event Note: Labs reviewed. Patient will require nephrology evaluation prior to angiogram. Time Spent With Patient Time: Total time managing care of this patient today ____ minutes.
[2024-05-15 16:21] LABS: Glucose, Whole Blood 137 mg/dL (60-115)
[2024-05-15 20:54] LABS: Glucose, Whole Blood 156 mg/dL (60-115)
[2024-05-15] MEDS: Melatonin 3 MG TABLET 6 MG PO (22:32)
[2024-05-15] MEDS: Insulin Glargine,Hum.rec.anlog 100 UNIT/ML 10 ML VIAL 15 UNIT SUBCUT (22:32)
[2024-05-16] VITALS (7 sets, daily range): BP systolic 82–125; BP diastolic 52–61; PULSE 78–98; RESP 16–20; TEMP 36.2–36.8; O2SAT 89–98; BMI 29.6
[2024-05-16] MEDS: Meropenem 1 GM VIAL IVPUSH ×3 (00:05→17:54)
[2024-05-16] MEDS: Albumin Human 25 % 100 ML 133.33 ML IV ×2 (03:56→04:48)
[2024-05-16 04:39] LABS: Anion Gap 11 (12-20); Blood Urea Nitrogen 56 mg/dL (9-16); Calcium 8.3 mg/dL (8.4-10.2); Carbon Dioxide 38 mmol/L (22-29); Chloride 92 mmol/L (96-108); Creatinine Clr Calc Pharmacy 58.3; Estimated Glomerular Filt Rate 45; Glucose Random 138 mg/dL (60-115); Lactic Acid 0.8 mmol/L (0.5-2.0); Potassium 4.4 mmol/L (3.3-5.1); Sodium 137 mmol/L (135-145)
[2024-05-16 07:22] LABS: Glucose, Whole Blood 109 mg/dL (60-115)
--- NOTE | 2024-05-16 08:22 | PM.PNCARD ---
Subjective Subjective Date of Service: 05/16/24 Principal diagnosis: Decompensated congestive heart failure Interval history: Patient doing a lot better. Complains of some abdominal wall edema in the dependent portion of his lower abdomen. Otherwise no significant breathing issues. Plan for some vascular procedure today to evaluate for left lower extremity circulation. Creatinine in his at 1.58. Blood pressure is stable. Review of Systems Constitutional: Reports fatigue and Reports weakness Cardiovascular: Denies rapid heart rate, Denies leg edema, Denies lightheadedness, Denies Loss of Consciousness and Denies orthopnea Respiratory: Reports no additional respiratory complaints Reports system reviewed and no additional complaints, except as documented and Reports weakness Endocrine: Reports fatigue Hematologic/Lymphatic: Reports no additional hematologic/lymphatic complaints Physical Exam Vital Signs: Last Vital Signs Temp 98.2 F 05/16/24 07:36 Pulse 90 05/16/24 07:36 Resp 18 05/16/24 07:36 BP 102/60 05/16/24 07:36 Pulse Ox 91 L 05/16/24 07:36 O2 Del Method Room Air 05/16/24 07:36 O2 Flow Rate 2 05/15/24 15:34 Oxygen Flow Rate 2 05/03/24 16:40 BMI result Body Mass Index 29.6 GENERAL APPEARANCE: in no acute distress, pleasant. NECK: no carotid bruit, + jugular venous distention. SKIN: no suspicious lesions, warm and dry. HEART: Holosystolic murmur left sternal border, regular rate and rhythm. LUNGS: Bilateral crackles at bases. ABDOMEN: soft, nontender. Abdominal ascites abdominal wall edema. EXTREMITIES: + edema. NEUROLOGIC: No gross deficits, AAO X 3 Objective Labs and Meds 05/12/24 06:12 05/16/24 04:18 Lab results: Laboratory Results - last 24 hr 05/15/24 05/15/24 05/15/24 11:13 16:06 20:46 Sodium Potassium Chloride Carbon Dioxide Anion Gap BUN Creatinine Estim Creat Clear Calc Estimated GFR POC Glucose 166 H 137 H 156 H Random Glucose Lactic Acid Calcium 05/16/24 05/16/24 04:18 07:11 Sodium 137 Potassium 4.4 Chloride 92 L Carbon Dioxide 38 H Anion Gap 11 L BUN 56 H Creatinine 1.58 H Estim Creat Clear Calc 58.3 Estimated GFR 45 POC Glucose 109 Random Glucose 138 H Lactic Acid 0.8 Calcium 8.3 L D Progress Note: A&P Assessment and plan (1) Acute on chronic HFrEF (heart failure with reduced ejection fraction): Status: Acute Assessment and Plan: Decompensated congestive heart failure with significantly improved fluid status over the last many days with a total negative balance of about 28 L. patient clinically appears to be more euvolemic. He has multiple comorbidities including chronic kidney disease, labile blood pressure and inability to tolerate neurohormonal modulators, paroxysmal atrial fibrillation, diabetes, vascular insufficiency, which would impact his overall prognosis. Continue with oral torsemide. Discussed about heart failure management and additional diuretics as soon as he starts having signs of fluid overload either abdominal wall edema, weight gain, leg edema, getting short of breath. He understands. I would refer him to [facility] to consider more advanced treatment options such as heart replacement therapy and if necessary cardiac modulation therapy. This was discussed with him. He is agreeable. Add Toprol 25 mg to his regimen for neurohormonal modulator (2) Paroxysmal atrial fibrillation: Status: Acute Assessment and Plan: Paroxysmal atrial fibrillation has remained suppressed on amiodarone therapy. Continue amiodarone. Add metoprolol as above. Has done well with rhythm control approach. Continue full oral anticoagulation with Eliquis. Will sign of the case and follow with him as outpatient. Thank you for allowing me to partake in his care Time Spent With Patient Time: Total time managing care of this patient today ____ minutes. Progress Note: Quality Stroke Does the patient have a stroke diagnosis?: No Procedures Date of Service Date of Service: 05/16/24
--- NOTE | 2024-05-16 08:40 | PM.CNNEP ---
History of Present Illness Reason for Consult Consult date: 05/16/24 Chief Complaint Chief complaint: hypoxia, dyspnea,LEFT LEG PVD History of Present Illness Narrative: This is a 58-year-old male with a history of atrial fibrillation on Eliquis, ischemic cardiomyopathy status post AICD, coronary artery disease status post PCI, COPD, KIMANI on CPAP, HFrEF, DMII. presented 05/13 with shortness of breath and anasarca of note, recent discharge 04/23 for CHF exacerbation Nephrology consulted for worsening renal function pt's creatinine between 0.75 and 1.28 since admission 05/14 creatinine increased to 1.58 05/[address] abdomen/pelvis 05/03 showed unremarkable kidneys/ureters without obstruction serum bicarb is 38 (trending up) BUN 56 (trending up) blood pressures are soft (chronic) valsartan held this a.m. due to hypotension pt on torsemide 40mg daily and spironolactone 25mg BID Pt reports he is feeling well today reports his breathing is comfortable, feels his leg swelling is much better denies chest pain, abdominal pain, flank pain denies dysuria, blood in urine, difficulty emptying bladder Review of Systems Constitutional: Denies fatigue, Denies headache(s) and Denies poor appetite Denies dizziness and Denies headache(s) Cardiovascular: Denies chest pain, Reports leg edema (reports improving), Denies lightheadedness, Denies dyspnea and Denies orthopnea Respiratory: Denies cough and Denies dyspnea Gastrointestinal: Denies abdominal pain, Denies constipation, Denies diarrhea, Denies nausea and Denies vomiting Genitourinary: Denies hematuria, Denies oliguria, Denies difficulty urinating, Denies flank pain, Denies urinary frequency and Denies urinary incontinence Musculoskeletal: Denies arthralgias and Denies muscle cramps Skin/Breast: Reports other (chronic left lower extremity wound) Denies dizziness and Denies headache(s) Endocrine: Denies fatigue PMFSH Past Medical History Medical History Acute on chronic HFrEF (heart failure with reduced ejection fraction) History of osteomyelitis 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 Diverticulosis Tubular adenoma of colon (~2017) History of COVID-19 Nicotine dependence, cigarettes, uncomplicated Hypertensive retinopathy Microhematuria ICD (implantable cardioverter-defibrillator) in place COPD (chronic obstructive pulmonary disease) KIMANI (obstructive sleep apnea) Sleep apnea CAD (coronary artery disease) Paroxysmal atrial fibrillation (~2017) Family History Family History Father Atherosclerosis Mother Cerebral aneurysm Maternal Grandmother Unknown family medical history Mother Cerebral hemorrhage Father Coronary artery disease Surgical History Surgical History History of amputation of left great toe History of cardiac cath History of ankle surgery History of implantable cardiac defibrillator (ICD) History of colonoscopy History of heart artery stent History of cardiac radiofrequency ablation History of cardioversion History of esophagogastroduodenoscopy History of umbilical hernia History of inguinal hernia Social History Social History Household Members: None Housing: House Are you a primary healthcare consultant to a significant other at home: No Do you presently have visiting nurse or other home services: Yes ([facility]) Alcohol intake: former Comment: refuses assistance OOB/high falls measures Patient Tobacco Use Status: Current everyday Tobacco user Tobacco use type: Cigarette Cigarette Packs Per Day: 1 Cigarettes Per Day: 2 Years Smoked: (current smoker - onset 14yo, 1ppd x 43yrs, 40pyh) e-Cigarette/Vaping Use: Never Used Second Hand Smoke Exposure: Yes Advance Directives Date on File: 07/09/21 service: No Current occupational status: unemployed and disabled Current occupation: rt handed Cognitive needs: No Hearing needs: No Vision needs: Yes Meds Allergies Allergy/AdvReac Type Severity Reaction Status Date / Time No Known Allergies Allergy Verified 05/03/24 16:45 [No Known Allergies*] Active Medications: Current Medications Acetaminophen (Acetaminophen 325 Mg Tablet) 650 mg PO Q6H PRN PRN Reason: Pain, Mild (Pain Scale 1-3), fever or headache Last Admin: 05/04/24 03:37 Dose: 650 mg Amiodarone HCl (Amiodarone Hcl 200 Mg Tablet) 200 mg PO DAILY [facility] Last Admin: 05/15/24 10:20 Dose: 200 mg Apixaban (Apixaban 5 Mg Tablet) 5 mg PO BID [facility] Last Admin: 05/15/24 22:33 Dose: 5 mg Aspirin (Aspirin Enteric Coated 81 Mg Tablet.) 81 mg PO DAILY [facility] Last Admin: 05/15/24 10:20 Dose: 81 mg Calcium Carbonate (Calcium Carbonate 750 Mg Tab.Chew) 750 mg PO Q4H PRN PRN Reason: Heartburn Colchicine (Colchicine 0.6 Mg Tablet) 0.6 mg PO DAILY [facility] Last Admin: 05/15/24 10:20 Dose: 0.6 mg Gabapentin (Gabapentin 300 Mg Capsule) 300 mg PO TID [facility] Last Admin: 05/15/24 22:32 Dose: 300 mg Daptomycin 600 mg/ Sodium (Chloride) 62 mls @ 100 mls/hr IV Q24H [facility] Last Infusion: 05/15/24 14:07 Dose: Infused Insulin Glargine (Insulin Glargine,Hum.Rec.Anlog 100 Unit/Ml 10 Ml Vial) 15 unit SUBCUT BEDTIME [facility] Last Admin: 05/15/24 22:32 Dose: 15 unit Insulin Human Lispro (Insulin Lispro 100 Unit/Ml 3 Ml Vial) 0 unit SUBCUT QIDACHS [facility]; Protocol Last Admin: 05/16/24 09:20 Dose: Not Given Magnesium Hydroxide (Milk Of Magnesia 30 Ml Oral.Susp) 30 ml PO DAILY PRN PRN Reason: Constipation Melatonin (Melatonin 3 Mg Tablet) 6 mg PO BEDTIME PRN PRN Reason: Insomnia Last Admin: 05/15/24 22:32 Dose: 6 mg Meropenem (Meropenem 1 Gm Vial) 1 gm IVPUSH Q8H [facility] Last Admin: 05/16/24 09:20 Dose: 1 gm Omeprazole (Omeprazole 20 Mg Capsule.) 20 mg PO DAILY@0630 [facility] Last Admin: 05/16/24 04:48 Dose: Not Given Ondansetron HCl (Ondansetron Hcl 4 Mg/2 Ml Vial) 4 mg IVPUSH Q8H PRN PRN Reason: Nausea and Vomiting Oxycodone HCl (Oxycodone Hcl Immed Release 5 Mg Tablet) 5 mg PO Q6H PRN PRN Reason: Pain, Severe (Pain Scale 7-10) Last Admin: 05/15/24 22:31 Dose: 5 mg Sertraline HCl (Sertraline Hcl 25 Mg Tablet) 25 mg PO DAILY [facility] Last Admin: 05/15/24 10:26 Dose: 25 mg Sodium Chloride (0.9 % Sodium Chloride Flush 3 Ml Syringe) 3 ml IVFLUSH QSHIFT [facility] Last Admin: 05/16/24 09:20 Dose: 3 ml Spironolactone (Spironolactone 25 Mg Tablet) 25 mg PO BID@0900,1800 [facility]; Protocol Last Admin: 05/15/24 17:33 Dose: 25 mg Thiamine HCl (Thiamine Hcl 100 Mg Tablet) 100 mg PO DAILY [facility] Last Admin: 05/15/24 10:20 Dose: 100 mg Torsemide (Torsemide 20 Mg Tablet) 40 mg PO DAILY [facility]; Protocol Valsartan (Valsartan 40 Mg Tablet) 20 mg PO BID [facility]; Protocol Last Admin: 05/15/24 22:34 Dose: Not Given Vitamin D (Cholecalciferol (Vitamin D3) 25 Mcg Tablet) 25 mcg PO DAILY [facility] Last Admin: 05/15/24 10:20 Dose: 25 mcg Home Medications ?Medication ?Instructions ?Recorded ?Confirmed ?Last Taken ?Type colchicine 0.6 mg tablet 0.6 mg PO DAILY 11/18/23 05/03/24 05/03/24 History insulin glargine 100 unit/mL (3 17 unit subcut BEDTIME 11/18/23 05/03/24 05/02/24 History mL) subcutaneous pen (Lantus Solostar U-100 Insulin) insulin lispro 100 unit/mL 7 unit subcut TIDAC 11/18/23 05/03/24 05/03/24 History subcutaneous solution albuterol sulfate 2.5 mg/3 mL 2.5 mg inhalation Q6H PRN 03/23/24 05/03/24 Unknown History (0.083 %) solution for nebulization Shortness Of Breath Or Wheezing apixaban 5 mg tablet (Eliquis) 5 mg PO BID 03/23/24 05/03/24 05/03/24 History empagliflozin 10 mg tablet 10 mg PO DAILY 03/23/24 05/03/24 05/03/24 History (Jardiance) fluticasone propionate 45 2 puff inhalation BID 03/23/24 05/03/24 05/03/24 History mcg-salmeterol 21 mcg/actuation HFA inhaler (Advair HFA) sennosides 8.6 mg tablet (senna) 17.2 mg PO BEDTIME 03/23/24 05/03/24 05/02/24 History torsemide 40 mg tablet 60 mg PO DAILY 05/03/24 05/03/24 05/03/24 History Physical Exam Vital Signs: Last Vital Signs Temp 98.2 F 05/16/24 07:36 Pulse 90 05/16/24 07:36 Resp 18 05/16/24 07:36 BP 102/60 05/16/24 07:36 Pulse Ox 91 L 05/16/24 07:36 O2 Del Method Room Air 05/16/24 07:36 O2 Flow Rate 2 05/15/24 15:34 Oxygen Flow Rate 2 05/03/24 16:40 BMI result Body Mass Index 29.6 Const General: no acute distress, alert and awake Neck Neck: Yes no JVD Resp Effort & Inspection: normal respiratory effort and able to speak in complete sentences Auscultation: clear to auscultation bilaterally Cardio Jugular venous distension: no JVD Rate: regular rate Rhythm: regular rhythm Heart sounds: S1 normal heart sound present, S2 normal heart sound present and Murmur heart sound present GI Palpation (GI): Soft to palpation and nontender General: Yes no CVA tenderness Back/Spine/Pelvis Back: no CVA tenderness Skin Rashes: no rashes Wounds: wounds noted (chronic LLE wound) Extrem General: No edema Results Lab Results 05/12/24 06:12 05/16/24 04:18 Lab results: Chemistry 05/14/24 05/15/24 05/16/24 06:32 06:09 04:18 Sodium 142 139 137 Potassium 4.5 D 4.5 4.4 Carbon Dioxide 39 H 38 H 38 H BUN 41 H 45 H 56 H Creatinine 1.28 1.58 H 1.58 H Calcium 9.0 D 9.3 8.3 L D Assessment and Plan (1) DECLAN (acute kidney injury): Status: Acute (2) Acute on chronic HFrEF (heart failure with reduced ejection fraction): Status: Acute (3) Metabolic acidosis: Status: Acute Plan DECLAN likely tubular injury from hypoperfusion in setting of co-committant diuretic and ARB use with hypotension also has worsening alkalosis, ABG today shows metabolic alkalosis- likely secondary to hypovolemia/diuresis agree to continue to hold ARB recommend hold torsemide recommend regular blood pressure and I&O monitoring recommend daily electrolytes and renal function studies continue to avoid nephrotoxic medications will continue to follow Discussed with Dr Olson Procedures Date of Service Date of Service: 05/16/24
[2024-05-16] MEDS: Aspirin Enteric Coated 81 MG TABLET.DR PO (09:00)
[2024-05-16] MEDS: 0.9 % Sodium Chloride Flush 3 ML SYRINGE IVFLUSH ×2 (09:20→22:04)
--- NOTE | 2024-05-16 09:31 | HO.PM.IMPN ---
Subjective Subjective Date of Service: 05/16/24 Interval History: seen and examined this morning follow up for CHF, foot infection no overnight events edema improving Review of Systems Review of Systems: Yes all other systems are reviewed and are negative Constitutional Constitutional: Denies chills and Denies fever(s) Cardiovascular Cardiovascular: Denies chest pain and Denies palpitations Gastrointestinal Gastrointestinal: Denies nausea and Denies vomiting Endocrine Endocrine: Denies palpitations Physical Exam Vital Signs: Vital Signs: Last Vital Signs Temp 98.2 F 05/16/24 07:36 Pulse 90 05/16/24 07:36 Resp 18 05/16/24 07:36 BP 102/60 05/16/24 07:36 Pulse Ox 91 L 05/16/24 07:36 O2 Del Method Room Air 05/16/24 07:36 O2 Flow Rate 2 05/15/24 15:34 Oxygen Flow Rate 2 05/03/24 16:40 BMI result Body Mass Index 29.6 Appearing in no acute distress lung sounds are clear to auscultation heart regular rate rhythm, clear S1, S2 positive bowel sounds, abdomen is soft, nontender neuro patient is alert x3, no focal deficits Anasarca to abd improving Objective Data Active Medications Acetaminophen (Acetaminophen 325 Mg Tablet) 650 mg PO Q6H PRN PRN Reason: Pain, Mild (Pain Scale 1-3), fever or headache Last Admin: 05/04/24 03:37 Dose: 650 mg Documented By: FELICITAS Amiodarone HCl (Amiodarone Hcl 200 Mg Tablet) 200 mg PO DAILY COUNT INCLUDES THE [facility] Last Admin: 05/15/24 10:20 Dose: 200 mg Documented By: CARA Apixaban (Apixaban 5 Mg Tablet) 5 mg PO BID COUNT INCLUDES THE [facility] Last Admin: 05/15/24 22:33 Dose: 5 mg Documented By: SHAYLA Aspirin (Aspirin Enteric Coated 81 Mg Tablet.Dr) 81 mg PO DAILY COUNT INCLUDES THE [facility] Last Admin: 05/15/24 10:20 Dose: 81 mg Documented By: CARA Calcium Carbonate (Calcium Carbonate 750 Mg Tab.Chew) 750 mg PO Q4H PRN PRN Reason: Heartburn Colchicine (Colchicine 0.6 Mg Tablet) 0.6 mg PO DAILY COUNT INCLUDES THE [facility] Last Admin: 05/15/24 10:20 Dose: 0.6 mg Documented By: CARA Gabapentin (Gabapentin 300 Mg Capsule) 300 mg PO TID COUNT INCLUDES THE [facility] Last Admin: 05/15/24 22:32 Dose: 300 mg Documented By: SHAYLA Daptomycin 600 mg/ Sodium (Chloride) 62 mls @ 100 mls/hr IV Q24H COUNT INCLUDES THE [facility] Last Infusion: 05/15/24 14:07 Dose: Infused Documented By: CARA Insulin Glargine (Insulin Glargine,Hum.Rec.Anlog 100 Unit/Ml 10 Ml Vial) 15 unit SUBCUT BEDTIME COUNT INCLUDES THE [facility] Last Admin: 05/15/24 22:32 Dose: 15 unit Documented By: SHAYLA Insulin Human Lispro (Insulin Lispro 100 Unit/Ml 3 Ml Vial) 0 unit SUBCUT QIDACHS COUNT INCLUDES THE [facility]; Protocol Last Admin: 05/16/24 09:20 Dose: Not Given Documented By: CARA Non-Admin Reason: No Insulin Coverage Magnesium Hydroxide (Milk Of Magnesia 30 Ml Oral.Susp) 30 ml PO DAILY PRN PRN Reason: Constipation Melatonin (Melatonin 3 Mg Tablet) 6 mg PO BEDTIME PRN PRN Reason: Insomnia Last Admin: 05/15/24 22:32 Dose: 6 mg Documented By: SHAYLA Meropenem (Meropenem 1 Gm Vial) 1 gm IVPUSH Q8H COUNT INCLUDES THE [facility] Last Admin: 05/16/24 09:20 Dose: 1 gm Documented By: CARA Omeprazole (Omeprazole 20 Mg Capsule.Dr) 20 mg PO DAILY@0630 COUNT INCLUDES THE [facility] Last Admin: 05/16/24 04:48 Dose: Not Given Documented By: SHAYLA Non-Admin Reason: NPO Ondansetron HCl (Ondansetron Hcl 4 Mg/2 Ml Vial) 4 mg IVPUSH Q8H PRN PRN Reason: Nausea and Vomiting Oxycodone HCl (Oxycodone Hcl Immed Release 5 Mg Tablet) 5 mg PO Q6H PRN PRN Reason: Pain, Severe (Pain Scale 7-10) Last Admin: 05/15/24 22:31 Dose: 5 mg Documented By: SHAYLA Sertraline HCl (Sertraline Hcl 25 Mg Tablet) 25 mg PO DAILY COUNT INCLUDES THE [facility] Last Admin: 05/15/24 10:26 Dose: 25 mg Documented By: CARA Sodium Chloride (0.9 % Sodium Chloride Flush 3 Ml Syringe) 3 ml IVFLUSH QSHIFT COUNT INCLUDES THE [facility] Last Admin: 05/16/24 09:20 Dose: 3 ml Documented By: CARA Spironolactone (Spironolactone 25 Mg Tablet) 25 mg PO BID@0900,1800 COUNT INCLUDES THE [facility]; Protocol Last Admin: 05/15/24 17:33 Dose: 25 mg Documented By: CARA Thiamine HCl (Thiamine Hcl 100 Mg Tablet) 100 mg PO DAILY COUNT INCLUDES THE [facility] Last Admin: 05/15/24 10:20 Dose: 100 mg Documented By: CARA Torsemide (Torsemide 20 Mg Tablet) 40 mg PO DAILY COUNT INCLUDES THE [facility]; Protocol Valsartan (Valsartan 40 Mg Tablet) 20 mg PO BID COUNT INCLUDES THE [facility]; Protocol Last Admin: 05/15/24 22:34 Dose: Not Given Documented By: SHAYLA Non-Admin Reason: Patient Condition Contraindication Vitamin D (Cholecalciferol (Vitamin D3) 25 Mcg Tablet) 25 mcg PO DAILY COUNT INCLUDES THE [facility] Last Admin: 05/15/24 10:20 Dose: 25 mcg Documented By: CARA Labs 05/12/24 06:12 05/16/24 04:18 Labs: Laboratory Results - last 24 hr 05/15/24 05/15/24 05/15/24 11:13 16:06 20:46 Anion Gap Estim Creat Clear Calc Estimated GFR POC Glucose 166 H 137 H 156 H Random Glucose Lactic Acid Calcium 05/16/24 05/16/24 04:18 07:11 Anion Gap 11 L Estim Creat Clear Calc 58.3 Estimated GFR 45 POC Glucose 109 Random Glucose 138 H Lactic Acid 0.8 Calcium 8.3 L D Assessment and Plan (1) Diabetic infection of left foot: Status: Acute (2) Acute on chronic HFrEF (heart failure with reduced ejection fraction): Status: Acute Plan 58-year-old male with pertinent history of sCHF, diabetic foot infection on IV antibiotics, COPD, PAF on Eliquis, CAD status post PCI, KIMANI on CPAP, insulin-dependent diabetes mellitus, mood disorder, PAD among others who presents with Increase fluids and Dyspnea. Anasarca 2/2 Acute on chronic biventricular CHF EF 15-20% s/p AICD. BP remains soft but stable, to be expected given underlying low EF Persistent fluid overload/shortness of breath/anasarca -continue with good UOP -28L to date Strict I's and O's, Low-salt diet Switch IV IV Lasix drip to torsemide. Continue Aldactone 25 b.i.d. hold valsartan for low BP stopped beta-lion and isordil follow BMP Diabetic foot infection with OM on IV Abx Wound care following On IV ertapenem and daptomycin until 05/14/2024 (changed to Meropenem while inpt) likely will continue until definitive timeline for surgery is determined, will discuss with ID Vascular eval appreciated>continue wound care. will likely need transmetatarsal amputation with prior arterial evaluation. time TBD based on cardiac status, currently needs to be medically optimized continue local wound care Peripheral arterial disease as above Acute on chronic Iron def. anemia No evidence of bleeding , Low iron stores negative occult last admission s/p IV Iron, DC on PO supplement will need outpatient GI follow up for further eval Insulin-dependent diabetes mellitus 2 with hyperglycemia basal plus insulin regimen ADA diet COPD Continue home inhalers KIMANI CPAP at bedtime CAD On aspirin. Not on statin Paroxysmal atrial fibrillation On amiodarone and [place] Mood disorder Continue home mood stabilizers DVT prophylaxis: [place] Attending Dr. Jenkins Full code The patient requires ongoing inpatient hospital stay for IV diuresis, close monitoring of volume status and cardiac status, possible surgical intervention for foot wound which is not possible in a lesser acute setting Quality Stroke Does the patient have a stroke diagnosis?: No VTE Prior VTE?: No VTE Risk Level:: Medical - moderate - high VTE Device Contraindication: Treatment Not Indicated VTE Drug Contraindication: N/A - Med Ordered
--- NOTE | 2024-05-16 10:09 | P.PNNP_ITS ---
Subjective Subjective Date of Service: 05/16/24 Principal diagnosis: Decompensated congestive heart failure Interval history: This is a 58-year-old male with a history of atrial fibrillation on Eliquis, ischemic cardiomyopathy status post AICD, coronary artery disease status post PCI, COPD, KIMANI on CPAP, HFrEF, DMII. presented 05/13 with shortness of breath and anasarca of note, recent discharge 04/23 for CHF exacerbation pt developed DECLAN on admission Cr 0.96, has been progressively trending up with vancomycin and pt was switched to clindamycin. However developed acute worsening of mental status and was transferred to ICU for emergent HD, which he received 03/29, 03/30 creatinine has improved from 3.58 prior to HD to 0.95 today electrolyte imbalances have improved H&H 10.2 and 33.4 Pt is alert at bedside today, oriented reports his breathing is comfortable today reports he is passing urine regularly/comfortably (output 1325 over last 24 hours) Reports ongoing left foot pain (chronic diabetic foot wound) Denies other concerns Physical Exam 2 Vital Signs: Vital Signs: Last Vital Signs Temp 98.2 F 05/16/24 07:36 Pulse 90 05/16/24 07:36 Resp 18 05/16/24 07:36 BP 102/60 05/16/24 07:36 Pulse Ox 91 L 05/16/24 07:36 O2 Del Method Room Air 05/16/24 07:36 O2 Flow Rate 2 05/15/24 15:34 Oxygen Flow Rate 2 05/03/24 16:40 BMI result Body Mass Index 29.6 Objective Data Labs 05/12/24 06:12 05/16/24 04:18 Labs: Laboratory Results - last 24 hr 05/15/24 05/15/24 05/15/24 11:13 16:06 20:46 Sodium Potassium Chloride Carbon Dioxide Anion Gap BUN Creatinine Estim Creat Clear Calc Estimated GFR POC Glucose 166 H 137 H 156 H Random Glucose Lactic Acid Calcium 05/16/24 05/16/24 04:18 07:11 Sodium 137 Potassium 4.4 Chloride 92 L Carbon Dioxide 38 H Anion Gap 11 L BUN 56 H Creatinine 1.58 H Estim Creat Clear Calc 58.3 Estimated GFR 45 POC Glucose 109 Random Glucose 138 H Lactic Acid 0.8 Calcium 8.3 L D Procedures Date of Service Date of Service: 05/16/24 Assessment & Plan Time Spent With Patient Time: Total time managing care of this patient today ____ minutes. Progress Note: Quality Stroke Does the patient have a stroke diagnosis?: No
[2024-05-16] MEDS: Apixaban 5 MG TABLET PO ×2 (10:19→22:04)
[2024-05-16] MEDS: Sertraline HCL 25 MG TABLET PO (10:19)
[2024-05-16] MEDS: Cholecalciferol (Vitamin D3) 25 MCG TABLET PO (10:19)
[2024-05-16] MEDS: Colchicine 0.6 MG TABLET PO (10:19)
[2024-05-16] MEDS: Gabapentin 300 MG CAPSULE PO ×3 (10:19→22:03)
[2024-05-16] MEDS: Omeprazole 20 MG CAPSULE.DR PO (10:20)
[2024-05-16] MEDS: Thiamine HCL 100 MG TABLET PO (10:20)
[2024-05-16] MEDS: Amiodarone HCL 200 MG TABLET PO (10:20)
[2024-05-16] MEDS: Spironolactone 25 MG TABLET PO ×2 (10:21→17:54)
--- NOTE | 2024-05-16 10:30 | P.PNVS_ITS ---
Subjective Subjective Date of Service: 05/16/24 Interval history: Jr is doing well this morning, he was sleeping. He is eating and drinking well. He has no concerns this morning. He continues to endorse pain in his foot, not any worse. Physical Exam Vital Signs: Vital Signs: Last Vital Signs Temp 98.2 F 05/16/24 07:36 Pulse 90 05/16/24 07:36 Resp 18 05/16/24 07:36 BP 102/60 05/16/24 07:36 Pulse Ox 91 L 05/16/24 07:36 O2 Del Method Room Air 05/16/24 07:36 O2 Flow Rate 2 05/15/24 15:34 Oxygen Flow Rate 2 05/03/24 16:40 BMI result Body Mass Index 29.6 Const: General: comfortable and no acute distress Orientatio n/consciousness: patient oriented x3 HEENT: Ears: hearing grossly normal bilaterally Resp: Effort & Inspection: normal respiratory effort and able to speak in complete sentences Auscultation: clear to auscultation bilaterally Cardio: Rate: regular rate Rhythm: regular rhythm Heart sounds: S1 normal heart sound present and S2 normal heart sound present Bruits: no abdominal aortic bruits, no carotid bruits, no femoral bruits and no renal bruits GI: Palpation (GI): No Abdominal aortic bruit present Neuro: General: patient oriented x3 Cranial nerves: Yes CN's II-XII intact bilaterally Extrem: Other: Dressing not taken down this morning. Progress Note: A&P Assessment and plan (1) PAD (peripheral artery disease): Status: Acute Assessment and Plan: Jr remains stable. He was seen by Cardiology yesterday. We were going to take him for an angio today; however, after review of labwork, we have deferred it. We will be obtaining a stat INR as well as Nephrology consult due to a drop in his GFR. We will continue to monitor his labwork and follow up with the pt. If the pt is cleared by Nephrology and his GFR increases and INR decreases, we may be able to perform an angio tomorrow. We will continue to monitor. Continue with current wound care dressing changes. Time Spent With Patient Time: Total time managing care of this patient today __30__ minutes. Procedures Date of Service Date of Service: 05/16/24 Quality Stroke Does the patient have a stroke diagnosis?: No VTE Prior VTE?: No VTE Risk Level:: Medical - moderate - high VTE Device Contraindication: Treatment Not Indicated VTE Drug Contraindication: N/A - Med Ordered
[2024-05-16 10:43] LABS: ABG Base Excess 22.1 mmol/L; ABG HCO3 48 mmol/L (22-26); ABG pCO2 65 mmHg (32-45); ABG pH 7.48 (7.35-7.45); ABG pO2 66 mmHg (83-108)
[2024-05-16 10:45] LABS: INTERNATIONAL NORM RATIO 1.4 (0.9-1.1); Prothrombin Time 16.8 SEC (10.9-12.4)
[2024-05-16 11:37] LABS: Glucose, Whole Blood 141 mg/dL (60-115)
[2024-05-16] MEDS: DAPTOmycin 600 MG in 0.9 % Sodium Chloride 50 ML 100 MG IV (12:19)
[2024-05-16 17:01] LABS: Glucose, Whole Blood 115 mg/dL (60-115)
[2024-05-16 18:11] LABS: Chloride Urine Random < 20.0 mmol/L
[2024-05-16 20:35] LABS: Glucose, Whole Blood 181 mg/dL (60-115)
[2024-05-16] MEDS: Insulin Lispro 100 UNIT/ML 3 ML VIAL SUBCUT (22:04)
[2024-05-16] MEDS: Insulin Glargine,Hum.rec.anlog 100 UNIT/ML 10 ML VIAL 15 UNIT SUBCUT (22:05)
[2024-05-17] MEDS: Meropenem 1 GM VIAL IVPUSH ×2 (02:00→08:39)
[2024-05-17 03:13] VITALS: BP 119/63; PULSE 87; RESP 20; TEMP 36.1; O2SAT 96
[2024-05-17 06:00] VITALS: BMI 29.8
[2024-05-17 07:12] LABS: Glucose, Whole Blood 112 mg/dL (60-115)
[2024-05-17 07:37] VITALS: BP 118/60; PULSE 88; RESP 20; TEMP 36.8; O2SAT 94
--- NOTE | 2024-05-17 08:06 | PM.DS ---
DS: Providers Provider Date of Service: 05/17/24 Date of admission: 05/03/24 21:55 Primary care physician: SAVANAH Harris Consults: 05/03/24 21:49 Consult to Cardiology Routine Consulting Provider: [facility] Reason for consultation: recurrent CHF with fluid overload 05/04/24 14:04 Consult to Wound Care Routine Reason for consultation: chronic wound to left foot Has provider been notified: Yes 05/04/24 15:34 Consult to Vascular Surgery Routine Consulting Provider: [facility] Reason for consultation: worsening foot wound Has provider been notified: No 05/15/24 14:24 Consult to Nephrology Routine Consulting Provider: [facility] Reason for consultation: worsening renal function 05/17/24 08:05 Consult to Infectious Diseases Routine Consulting Provider: [facility] Reason for consultation: osteomyelitis DS: Diagnosis Discharge Diagnosis (1) DECLAN (acute kidney injury): Status: Acute (2) Acute on chronic HFrEF (heart failure with reduced ejection fraction): Status: Acute (3) Metabolic acidosis: Status: Acute DS: Summary Hospital Course Hospital Course: H and P as per admitting provider. A 58-year-old male with pertinent history of sCHF, diabetic foot infection on IV antibiotics, COPD, PAF on Eliquis, CAD status post PCI, KIMANI on CPAP, insulin-dependent diabetes mellitus, mood disorder, PAD among others who presents with Increase fluids and Dyspnea. The patient was recently discharged from hospital on 04/23 for CHF exacerbation with increment of home Torsemide. Jardiance was not stopped at that time. He was also noted to have Anemia and received IV replacement. Today he reports increase fluids in his lower extremities and back. ALLEN with short distances. reports making fair amount of urine after cardiology asked him to increase his Torsemide to 60 mg. No chest pain, palpitations, SOB, nausea, vomiting, diarrhea or urinary symptoms. Found to have elevated BNP with CXR showing basal atelactasis and small effusion. Admitted for further treatment. Anasarca 2/2 Acute on chronic biventricular CHF, EF 15-20% s/p AICD. BP remains soft but stable, to be expected given underlying low EF. Persistent fluid overload/shortness of breath/anasarca -continue with good UOP -28L to date. Treated with IV Lasix for multiple days, switch to oral torsemide but developed DECLAN so torsemide stopped. Discussed with Nephrology. Plan will be to continue torsemide at 20 mg daily, continue Aldactone and he will follow up with Nephrology within the next 2 weeks. He also had some low blood pressure and valsartan was held and we will continue to be held along with the hydralazine at home. DECLAN likely secondary to diuretics. Close to baseline at this time. Check B MP in 5 days. Diabetic foot infection with OM on IV Abx completed IV ertapenem and daptomycin on 05/17/2024, PICC line removed. Vascular eval appreciated>continue wound care. will likely need transmetatarsal amputation with prior arterial evaluation. time TBD based on cardiac status, currently needs to be medically optimized , continue local wound care Peripheral arterial disease as above, we will need to see vascular surgery for angio prior to foot amputation Acute on chronic Iron def. anemia . No evidence of bleeding, low iron stores, negative occult last admission. Status post IV iron, DC on p.o. supplement Insulin-dependent diabetes mellitus 2 with hyperglycemia. Continue home medications COPD Continue home inhalers KIMANI CPAP at bedtime CAD On aspirin. Paroxysmal atrial fibrillation On amiodarone and Eliquis Mood disorder Continue home mood stabilizers Plan: Continue, Torsemide 20 mg daily Metoprolol 25 mg XL Isosorbide Aldactone Amiodarone Follow-up with Nephrology for monitoring of renal function Follow up with vascular surgeon for plan for angio and eventual amputation Follow up with Cardiology for management of cardiomyopathy Time Attestation Discharge Coordination Time (in mins): 40 Quality: Safe Use of Opioids Does Pt have an Active Cancer Diagnosis on the Problem List?: No Quality: Stroke Does the patient have a stroke diagnosis?: No Physical Exam Vital Signs: Vital Signs: Last Vital Signs Temp 98.2 F 05/17/24 07:37 Pulse 88 05/17/24 07:37 Resp 20 05/17/24 07:37 BP 118/60 05/17/24 07:37 Pulse Ox 94 05/17/24 07:37 O2 Del Method CPAP 05/17/24 07:37 O2 Flow Rate 2 05/15/24 15:34 Oxygen Flow Rate 2 05/03/24 16:40 BMI result Body Mass Index 29.8 DS: Data Data Completed and Pending Completed studies during hospitalization [Text1]: Procedures Assistance with Respiratory Ventilation, Less than 24 Consecutive Hours, Continuous Positive Airway Pressure (04/19/24) Insertion of Infusion Device into Superior Vena Cava, Percutaneous Approach (03/23/24) Performance of Urinary Filtration, Intermittent, Less than 6 Hours Per Day (03/23/24) Moravian of Cardiac Rhythm, Single (06/23/21) Ultrasonography of Superior Vena Cava, Guidance (03/23/24) Labs on day of discharge: Laboratory Results - last 24 hr 05/16/24 05/16/24 05/16/24 09:39 10:33 11:25 PT 16.8 H D INR 1.4 H O2 Saturation 91.0 ABG pH at Pt Temp 7.48 H ABG pCO2 at Pt Temp 65 H* ABG pO2 at Pt Temp 66 L ABG HCO3 48 H ABG Base Excess (Actual) 22.1 POC Glucose 141 H Ur Random Chloride 05/16/24 05/16/24 05/16/24 16:57 17:35 20:29 PT INR O2 Saturation ABG pH at Pt Temp ABG pCO2 at Pt Temp ABG pO2 at Pt Temp ABG HCO3 ABG Base Excess (Actual) POC Glucose 115 181 H Ur Random Chloride < 20.0 05/17/24 07:05 PT INR O2 Saturation ABG pH at Pt Temp ABG pCO2 at Pt Temp ABG pO2 at Pt Temp ABG HCO3 ABG Base Excess (Actual) POC Glucose 112 Ur Random Chloride Preliminary micro results at discharge 05/16/24 04:18 Blood Culture - Preliminary Blood - Venous No growth after 24 hours. 05/16/24 04:18 Blood Culture - Preliminary Blood - Venous No growth after 24 hours. Discharge Plan Discharge Anticipated Discharge Date/Time: 05/17/24 07:59 Patient Disposition: Home Health Service Discharge Diagnosis: Anasarca Heart failure with reduced ejection fraction Diabetic foot infection Referrals: [facility] [Outside] - 1 Week Jim Olson MD [Physician] - 1 Week Phi Crisostomo FNP- [Primary Care Provider] - 1 Week Jens Chatman MD [Physician] - 1 Week Discharge Medications: New torsemide 20 mg tablet 20 mg PO DAILY Qty: 30 0RF ferrous sulfate [Iron (ferrous sulfate)] 325 mg (65 mg iron) tablet 325 mg PO DAILY Qty: 30 0RF Continued (DME) pen needle, diabetic [BD Ultra-Fine Mini Pen Needle] 31 gauge x 3/16 needle See Rx Instructions .Route Qty: 400 1RF Rx Instructions: As directed to inject insulin 4 times per day (DME) diabetic shoes with custom insert for left shoe See Rx Instructions .Route .MEDSUPPLY Qty: 1 0RF Rx Instructions: As directed amiodarone 200 mg tablet 200 mg PO DAILY Qty: 30 0RF aspirin [Adult Low Dose Aspirin] 81 mg tablet,delayed release (DR/EC) 81 mg PO DAILY Qty: 90 1RF melatonin 3 mg tablet 3 mg PO BEDTIME Qty: 90 1RF omeprazole 20 mg capsule,delayed release(DR/EC) 20 mg PO DAILY@0630 90 Days Qty: 90 1RF thiamine HCl (vitamin B1) 100 mg tablet 100 mg PO DAILY Qty: 90 1RF sertraline 25 mg tablet 25 mg PO DAILY Qty: 90 1RF (DME) FreeStyle Samantha 3 Sensor Device See Rx Instructions .Route Qty: 6 1RF Rx Instructions: Test blood sugar TID (DME) FreeStyle Lite Strips Strip See Rx Instructions .Route Qty: 300 1RF Rx Instructions: TID testing gabapentin 300 mg capsule 300 mg PO TID Qty: 270 1RF sennosides [senna] 8.6 mg tablet 17.2 mg PO BEDTIME albuterol sulfate 2.5 mg /3 mL (0.083 %) solution for nebulization 2.5 mg inhalation Q6H PRN (Reason: Shortness Of Breath Or Wheezing) fluticasone propion-salmeterol [Advair HFA] 45-21 mcg/actuation Hfa Aerosol Inhaler 2 puff INHALATION BID Eliquis 5 mg tablet 5 mg PO BID Jardiance 10 mg tablet 10 mg PO DAILY metoprolol succinate 25 mg Tablet Extended Release 24 Hr 25 mg PO DAILY Qty: 30 0RF Protocol: Hold for SBP/HR < HOLD for SBP < : 90 HOLD for HR < : 60 isosorbide dinitrate 5 mg Tablet 5 mg PO 0800,1300,1800 Qty: 90 0RF Protocol: Hold for SBP< HOLD for SBP < : 90 insulin glargine [Lantus Solostar U-100 Insulin] 100 unit/mL (3 mL) insulin pen 17 unit subcut BEDTIME insulin lispro 100 unit/mL Solution 7 unit SUBCUT TIDAC colchicine 0.6 mg Tablet 0.6 mg PO DAILY Discontinued daptomycin 500 mg recon soln 600 mg IV Q24H Rx Instructions: administer over 30 mins hydralazine 10 mg Tablet 10 mg PO TID Qty: 90 0RF Protocol: Hold for SBP< HOLD for SBP < : 90 sodium chloride 0.9 % (flush) [Normal Saline Flush] Syringe 5 ml IVFLUSH TID Qty: 1 0RF ertapenem 1 gram recon soln 1 g IV DAILY Qty: 1 0RF torsemide 40 mg tablet 60 mg PO DAILY Discharge Orders: Discharge Order (Routine); Ordered 05/17/24 Ordered By: Isa Teran Diet: Advance to usual diet Activity on Discharge: As tolerated Stand Alone Forms: Patient Portal Discharge page Print Language: Amharic Activity Restrictions/Additional Instructions: Topical Wound Care Recommendations: 1. Maintain blood glucose levels per Providers order. 2. Left foot sites - Off Load Pressure - Cleanse and irrigate with NS, Pat dry.? Apply barrier to periwound, lightly pack with Durafiber AG, be sure to leave a wick to easy removal.? Cover with dry gauze, gauze wrap.? Be sure to pad the base of the plantar wound with padding to aid in off loading and protecting from further injury. Change every other day. Patient should limit standing and walking time. He should use off loading boot from outpt wound clinic. Recommend Dr. Chatman Vascular Surgeon for outpatient follow up.? His office is located at [address] [place] [address] [id number], [place] [address], call for an appointment at time of discharge [phone] Care Plan Goals: Continue wound care as per above directions There are few medication changes: Hydralazine has been stopped, torsemide dose has been decreased to 20 mg daily, the course of IV antibiotics has completed Health Concerns: Anasarca Heart failure with reduced ejection fraction Diabetic foot infection Plan of Treatment: Follow-up with primary care provider as needed Follow up with vascular surgeon Follow-up with Nephrology Assessment: See discharge summary
[2024-05-17] MEDS: Apixaban 5 MG TABLET PO (08:35)
[2024-05-17] MEDS: Sertraline HCL 25 MG TABLET PO (08:35)
[2024-05-17] MEDS: Colchicine 0.6 MG TABLET PO (08:35)
[2024-05-17] MEDS: Thiamine HCL 100 MG TABLET PO (08:35)
[2024-05-17] MEDS: Aspirin Enteric Coated 81 MG TABLET.DR PO (08:35)
[2024-05-17] MEDS: Gabapentin 300 MG CAPSULE PO (08:35)
[2024-05-17] MEDS: Spironolactone 25 MG TABLET PO (08:35)
[2024-05-17] MEDS: Acetaminophen 325 MG TABLET 650 MG PO (08:35)
[2024-05-17] MEDS: Amiodarone HCL 200 MG TABLET PO (08:35)
[2024-05-17] MEDS: Cholecalciferol (Vitamin D3) 25 MCG TABLET PO (08:35)
--- NOTE | 2024-05-17 08:35 | P.PNNP_ITS ---
Subjective Subjective Date of Service: 05/17/24 Principal diagnosis: Decompensated congestive heart failure Interval history: This is a 58-year-old male with a history of atrial fibrillation on Eliquis, ischemic cardiomyopathy status post AICD, coronary artery disease status post PCI, COPD, KIMANI on CPAP, HFrEF, DMII. presented 05/13 with shortness of breath and anasarca of note, recent discharge 04/23 for CHF exacerbation Nephrology consulted for worsening renal function pt's creatinine between 0.75 and 1.28 since admission 05/14 creatinine increased to 1.58 05/16 1.58 05/[address] abdomen/pelvis 05/03 showed unremarkable kidneys/ureters without obstruction serum bicarb is 37 BUN 58 (trending up) blood pressures are soft (chronic) valsartan held this a.m. due to hypotension pt on torsemide 40mg daily and spironolactone 25mg BID Pt reports he is feeling well today reports his breathing is comfortable, feels his leg swelling is much better denies chest pain, abdominal pain, flank pain denies dysuria, blood in urine, difficulty emptying bladder Physical Exam 2 Vital Signs: Vital Signs: Last Vital Signs Temp 98.2 F 05/17/24 07:37 Pulse 88 05/17/24 07:37 Resp 20 05/17/24 07:37 BP 118/60 05/17/24 07:37 Pulse Ox 94 05/17/24 07:37 O2 Del Method CPAP 05/17/24 07:37 O2 Flow Rate 2 05/15/24 15:34 Oxygen Flow Rate 2 05/03/24 16:40 BMI result Body Mass Index 29.8 Const: General: no acute distress, alert and awake Neck: Neck: Yes no JVD Resp: Effort & Inspection: normal respiratory effort and able to speak in complete sentences Auscultation: clear to auscultation bilaterally Cardio: Jugular venous distension: no JVD Rate: regular rate Rhythm: r egular rhythm Heart sounds: S1 normal heart sound present, S2 normal heart sound present and Murmur heart sound present GI: Palpation (GI): Soft to palpation and nontender : General: Yes no CVA tenderness Back/Spine/Pelvis: Back: no CVA tenderness Skin: Rashes: no rashes Wounds: wounds noted (chronic LLE wound) Extrem: General: No edema Objective Data Labs 05/12/24 06:12 05/17/24 09:49 Labs: Laboratory Results - last 24 hr 05/16/24 05/16/24 05/16/24 09:39 11:25 16:57 PT 16.8 H D INR 1.4 H Sodium Potassium Chloride Carbon Dioxide Anion Gap BUN Creatinine Estim Creat Clear Calc Estimated GFR POC Glucose 141 H 115 Random Glucose Calcium Ur Random Chloride 05/16/24 05/16/24 05/17/24 17:35 20:29 07:05 PT INR Sodium Potassium Chloride Carbon Dioxide Anion Gap BUN Creatinine Estim Creat Clear Calc Estimated GFR POC Glucose 181 H 112 Random Glucose Calcium Ur Random Chloride < 20.0 05/17/24 05/17/24 09:49 10:45 PT INR Sodium 140 Potassium 4.7 Chloride 93 L Carbon Dioxide 37 H Anion Gap 15 BUN 58 H Creatinine 1.24 Estim Creat Clear Calc 75.1 Estimated GFR 59 POC Glucose 174 H Random Glucose 167 H Calcium 9.3 D Ur Random Chloride Microbiology Microbiology Results: Microbiology 05/16/24 04:18 Blood - Venous Blood Culture - Preliminary No growth after 24 hours. 05/16/24 04:18 Blood - Venous Blood Culture - Preliminary No growth after 24 hours. Procedures Date of Service Date of Service: 05/17/24 Assessment & Plan Assessment and plan (1) Hyperkalemia: Status: Acute (2) 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: Status: Acute (3) DECLAN (acute kidney injury): Status: Acute Plan DECLAN likely tubular injury from hypoperfusion in setting of co-committant diuretic and ARB use with hypotension agree to continue to hold ARB for discharge, torsemide 20mg once daily upon discharge- will have patient follow up with nephrology within two weeks in office continue to avoid nephrotoxic medications will continue to follow Discussed with Dr Chatterjee Time Spent With Patient Time: Total time managing care of this patient today ____ minutes. Progress Note: Quality Stroke Does the patient have a stroke diagnosis?: No
[2024-05-17] MEDS: oxyCODONE HCl Immed Release 5 MG TABLET PO (08:36)
[2024-05-17] MEDS: 0.9 % Sodium Chloride Flush 3 ML SYRINGE IVFLUSH (08:38)
[2024-05-17 10:27] LABS: Anion Gap 15 (12-20); Blood Urea Nitrogen 58 mg/dL (9-16); Calcium 9.3 mg/dL (8.4-10.2); Carbon Dioxide 37 mmol/L (22-29); Chloride 93 mmol/L (96-108); Creatinine Clr Calc Pharmacy 75.1; Estimated Glomerular Filt Rate 59; Glucose Random 167 mg/dL (60-115); Potassium 4.7 mmol/L (3.3-5.1); Sodium 140 mmol/L (135-145)
[2024-05-17 10:52] LABS: Glucose, Whole Blood 174 mg/dL (60-115)
[2024-05-17 11:00] VITALS: BP 106/62; PULSE 93; RESP 20; TEMP 37.4; O2SAT 94
[2024-05-17] MEDS: Insulin Lispro 100 UNIT/ML 3 ML VIAL SUBCUT (11:02)
--- NOTE | 2024-05-17 11:34 | HO.VASCPN ---
Subjective Subjective Date of Service: 05/17/24 Interval history: Jr is doing well this morning was eating breakfast. He is sleeping well. He is questioning about what will be happening from a vascular standpoint. He states his foot remained stable, he does continue to endorse pain in the foot. He has been getting out of bed to the chair. Physical Exam Vital Signs: Vital Signs: Last Vital Signs Temp 99.3 F 05/17/24 11:00 Pulse 93 05/17/24 11:00 Resp 20 05/17/24 11:00 BP 106/62 05/17/24 11:00 Pulse Ox 94 05/17/24 11:00 O2 Del Method CPAP 05/17/24 11:00 O2 Flow Rate 2 05/15/24 15:34 Oxygen Flow Rate 2 05/03/24 16:40 BMI result Body Mass Index 29.8 Const: General: comfortable and no acute distress Orientation/consciousness: patient oriented x3 HEENT: Ears: hearing grossly normal bilaterally Resp: Effort & Inspection: normal respiratory effort and able to speak in complete sentences Auscultation: clear to auscultation bilaterally Cardio: Rate: regular rate Rhythm: regular rhythm Heart sounds: S1 normal heart sound present and S2 normal heart sound present Bruits: no abdominal aortic bruits, no carotid bruits, no femoral bruits and no renal bruits GI: Palpation (GI): No Abdominal aortic bruit present Neuro: General: patient oriented x3 Cranial nerves: Yes CN's II-XII intact bilaterally Extrem: Other: Left lower extremity wrapped. Wound care nurse will be taking down later. Progress Note: A&P Assessment and plan (1) PAD (peripheral artery disease): Status: Acute Assessment and Plan: We will be has significant PAD. Due to an ongoing DECLAN and review of note from Nephrology, we will be holding off on any surgical intervention/angio until the patient recovers from the DECLAN. Continue with current wound care. We will follow up with the patient in the office. I had a lengthy discussion with the patient today about the importance of the follow-up visit. If there are any questions or concerns, please do not hesitate to reach out to us. Time Spent With Patient Time: Total time managing care of this patient today __25__ minutes. Procedures Date of Service Date of Service: 05/17/24 Quality Stroke Does the patient have a stroke diagnosis?: No VTE Prior VTE?: No VTE Risk Level:: Medical - moderate - high VTE Device Contraindication: Treatment Not Indicated VTE Drug Contraindication: N/A - Med Ordered
--- NOTE | 2024-05-17 11:52 | HO.WOUND ---
Wound Consult:Follow up 58yr old Male [place] [facility] [place] - See progress notes and H&P for detailed history.? Wound consult follow up for Left foot wound.? Patient agreeable to assessment and photo documentation.? This admission patient has been followed by Vascular Surgery Dr Chatman's office. D/C plan is to follow up outpt with Dr. Chatman and plan for future surgical intervention. On reassessment this wound remains concerning but is improving. The plantar wound have exposed bone, and communicates with the webspace wound on the 2nd toe. The dorsal side of the 2nd toe is improving, dry wound bed. Will continue to dry to stabilize. The webspace wound and plantar will continue to be packed with Durafiber AG for moisture management. Currently the periwound and wound itself appears to be improving however the plantar area has a significantly exposed bone that was not as visible last assessment. There is concern for wound worsening when patient is discharged to home as in times past his compliance has been poor- he needs continued VNA services to provide deliberate wound care. No new topical wound care orders needed at this time. Patient did show his off loading boot provided in the past by outpt wound clinic - he was advised to use the boot and not apply pressure to the plantar area to allow to healing. Standing and walking should be limited. He reports understanding. Left Plantar 2nd webspace that communicates to plantar wound Etiology: ??Diabetic Wounds Measurements: Left Anterior wound : 1cm x 0.4cm x 0.1cm dry red wound bed Left 2nd web space communicates to Left Plantar with undermining circumferential - adherent fibrinous slough Bone exposed from base of plantar wound. 1.5cm x 1cm x 0.5cm with undermining circumferential 1cm Drainage / Odor: cuba yellow drainage noted on dressing when removed - mild odor noted Edges: ? nonadherent [place] wound: ?less swelling less erythema noted no induration no fluctuance noted Pain: reports neuropathy Goals of Treatment: ? Durafiber AG defer to surgery and vascular team Recommendations: 1. Maintain blood glucose levels per Providers order. 2. Left foot sites - Off Load Pressure - Cleanse and irrigate with NS, Pat dry.? Apply barrier to periwound, lightly pack with Durafiber AG, be sure to leave a wick to easy removal.? Cover with dry gauze, gauze wrap.? Change every other day. Recommend Dr. Chatman Vascular Surgeon for outpatient follow up.? His office is located at [address] [place] [address] [address], [place] [address], call for an appointment at time of discharge [phone] Re-consult wound care Nurse for wound deterioration or wound changes.
[2024-05-17] MEDS: DAPTOmycin 600 MG in 0.9 % Sodium Chloride 50 ML 100 MG IV (12:19)
--- NOTE | 2024-05-17 13:44 | MHC.CM.PN ---
Second IMM given 05/17. Pt is being medically cleared for discharge home today with resumption of previous [facility] [employer] VNA services. Pts significant other will transport him home today. [employer] was contacted to notify them of his discharge by this CM through [facility], and phone (voicemail was left), and discharge summary has been faxed to them as well.
== END 2024-05-17 15:10 | disposition home health service (06) | DRG 292 ==
LOC: HO.ED 17:11 → HO.EDOVER 22:01 → HO.IMC 05-04 07:35
PROVIDERS: Hospitalist; Internal Medicine Cardiovascular Disease; Nurse Practitioner Family; Physician Assistant Medical; Physician Assistant Surgical; Student in an Organized Health Care Education/Training Program; Admitting Provider Student in an Organized Health Care Education/Training Program; Emergency Provider Emergency Medicine; PCP Nurse Practitioner Family; Visit Provider Nurse Practitioner Acute Care
DX: I50.23 Acute on chronic systolic (congestive) heart failure (principal); E87.3 Alkalosis; L97.429 Non-pressure chronic ulcer of left heel and midfoot with unspecified severity; M86.172 Other acute osteomyelitis, left ankle and foot; N17.9 Acute kidney failure, unspecified; I50.82 Biventricular heart failure; E11.69 Type 2 diabetes mellitus with other specified complication; D50.9 Iron deficiency anemia, unspecified; I25.10 Atherosclerotic heart disease of native coronary artery without angina pectoris; F39 Unspecified mood [affective] disorder; E11.65 Type 2 diabetes mellitus with hyperglycemia; E11.51 Type 2 diabetes mellitus with diabetic peripheral angiopathy without gangrene; J44.9 Chronic obstructive pulmonary disease, unspecified; I25.5 Ischemic cardiomyopathy; E86.1 Hypovolemia; G47.33 Obstructive sleep apnea (adult) (pediatric); I48.0 Paroxysmal atrial fibrillation; L97.529 Non-pressure chronic ulcer of other part of left foot with unspecified severity; I70.245 Atherosclerosis of native arteries of left leg with ulceration of other part of foot; I70.244 Atherosclerosis of native arteries of left leg with ulceration of heel and midfoot; Z95.810 Presence of automatic (implantable) cardiac defibrillator; Z95.5 Presence of coronary angioplasty implant and graft; Z79.4 Long term (current) use of insulin; Z79.01 Long term (current) use of anticoagulants; Z79.51 Long term (current) use of inhaled steroids; Z79.899 Other long term (current) drug therapy
CPT/HCPCS: 36415; 71046; 74177; 80048; 80076; 82436; 82728; 82803; 82947; 83540; 83605; 83880; 85025; 85027; 85610; 87040; 93005; 93971; 94640; 99285; C1758; J0878; J1940; J2185; J2270; J2916; P9047; Q9967

== ENCOUNTER → 2024-05-03 16:56 | Outpatient (BNV) | payer OTHER, SELFPAY | PROVIDERS: Admitting Provider Student in an Organized Health Care Education/Training Program; Emergency Provider Emergency Medicine; PCP Nurse Practitioner Family; Visit Provider Internal Medicine Cardiovascular Disease | DX: R94.31 Abnormal electrocardiogram [ECG] [EKG] (principal) | CPT/HCPCS: 93010 ==

== ENCOUNTER → 2024-05-03 21:55 | Outpatient (BNV) | payer OTHER, SELFPAY | PROVIDERS: Admitting Provider Student in an Organized Health Care Education/Training Program; Emergency Provider Emergency Medicine; PCP Nurse Practitioner Family; Visit Provider Nurse Practitioner Family | DX: N17.0 Acute kidney failure with tubular necrosis (principal); E87.5 Hyperkalemia; E11.621 Type 2 diabetes mellitus with foot ulcer; L97.509 Non-pressure chronic ulcer of other part of unspecified foot with unspecified severity | CPT/HCPCS: 99222; 99232 ==

== ENCOUNTER → 2024-05-03 21:55 | Outpatient (BNV) | payer OTHER, SELFPAY | PROVIDERS: Admitting Provider Student in an Organized Health Care Education/Training Program; Emergency Provider Emergency Medicine; PCP Nurse Practitioner Family; Visit Provider Student in an Organized Health Care Education/Training Program | DX: N17.9 Acute kidney failure, unspecified (principal); I50.23 Acute on chronic systolic (congestive) heart failure; E87.20 Acidosis, unspecified | CPT/HCPCS: 99223; 99232; 99233; 99239 ==

== ENCOUNTER → 2024-05-03 21:55 | Outpatient (BNV) | payer OTHER, SELFPAY | PROVIDERS: Admitting Provider Student in an Organized Health Care Education/Training Program; Emergency Provider Emergency Medicine; PCP Nurse Practitioner Family; Visit Provider Physician Assistant Surgical | DX: I73.9 Peripheral vascular disease, unspecified (principal) | CPT/HCPCS: 99222; 99232; 99499 ==

== ENCOUNTER → 2024-05-03 21:55 | Outpatient (BNV) | payer OTHER, SELFPAY | PROVIDERS: Admitting Provider Student in an Organized Health Care Education/Training Program; Emergency Provider Emergency Medicine; PCP Nurse Practitioner Family; Visit Provider Internal Medicine Cardiovascular Disease | DX: I50.23 Acute on chronic systolic (congestive) heart failure (principal); I48.0 Paroxysmal atrial fibrillation | CPT/HCPCS: 99222; 99233 ==

== ENCOUNTER 2024-05-22 09:01 | Outpatient (AMB) | payer OTHER, SELFPAY ==
--- NOTE | 2024-05-22 09:06 | MHC.PC.OV ---
Vital Signs 05/22/24 09:09 Height 5 ft 11 in Weight 219 lb BMI 30.5 BP 118/66 Blood Pressure Location Lt brachial Position Sitting Pulse 86 Pulse Source Pulse Oximeter Pulse Oximetry (%) 94 Oxygen Delivery Method Room Air Intake Visit Reasons: [facility] 05/17/24 hypoxia, dyspnea, L Leg PVD Intake Note: Pt is here today for TCM was in [facility] on 05/17/24 Allergies No Known Allergies [No Known Allergies*] Allergy (Verified 05/22/24 09:07) Tobacco use date assessed: 05/22/24 Dental Screening Dental Screen Date: 05/22/24 Did you have a dental visit in the last 12 months?: Yes Did you have a dental problem in the last 6 months where you did not have access to dental care?: No Was dental information given to patient?: Patient has dentist HPI [facility] 05/17/24 hypoxia, dyspnea, L Leg PVD HPI Details History of Present Illness The patient is a 58 year old male presenting with pain and management concerns regarding his chronic diabetic foot ulcer. He has a history of chronic heart failure (EF 15-20%), fluid overload, and presented to the emergency department previously due to these conditions. Recent episodes include dyspnea on exertion and lower extremity edema. He is followed by cardiology, vascular surgery, nephrology, and infectious disease teams, having been admitted to [facility] for CHF and fluid overload. A chronic wound on the left foot has been problematic, previously necessitating IV antibiotic treatment with ertapenem and daptomycin. Post-treatment, a likelihood of transmetatarsal amputation was discussed due to peripheral arterial disease/infection. Current issues with the wound include increased pain and swelling, with the patient complaining of foul odor and possible worsening of the condition. Despite treatment with torsemide, the patient's fluid retention persists, exacerbating his anasarca. A Cutaneous or systemic infection risk is notable, evidenced by increased erythema, drainage, and potential for sepsis. The patient is currently under a regimen of home medications, including anticoagulation and mood stabilizers, and experiences significant adverse effects impacting daily life. Social History - The patient lives independently and is reliant on home healthcare assistance for wound management. - Frequent stress noted about his medical state and recurrent hospital visits. Review of Systems - Cardiovascular: Reports shortness of breath and dyspnea on exertion. - Integumentary: Reports pain, swelling, and foul odor from left foot ulcer. - Hematologic: Reports previous episodes of severe anemia, now managed with oral and IV iron. - Respiratory: Reports insufficient sleep and increased effort during respiration at night. Physical Exam - Integumentary- Left foot with erythematous, tender areas, and foul-smelling purulent drainage from ulcer (inferior to second toe). whitish excoriations inbetween toes with base erythema (tinea) - General- Pale complexion, winces in pain. - Pulmonary- Diminished breath sounds throughout; faint wheezing in upper lobes; faint crackles in lung bases. - Results - Labs: Iron deficiency anemia indicated by low iron stores and completed IV iron treatment. - Tests and Diagnostics: Past cardiac evaluations indicating EF 15-20%, AICD placement. Plan - Chronic Heart Failure: Continue current home regimen of torsemide and follow up with cardiology. - Chronic Diabetic Foot Ulcer: Immediate ED evaluation for potential sepsis or progression toward transmetatarsal amputation. - Anemia, Iron Deficiency: Continuation of iron supplementation and monitor blood levels closely. - Peripheral Arterial Disease: Await outpatient vascular follow-up with consideration of angioplasty prior to potential amputation. - Chronic Kidney Disease: Follow nephrology recommendations to adjust medication and monitor renal function. - Atrial Fibrillation: Continue with amiodarone and Eliquis. - COPD: No change; continue prescribed inhalers and CPAP use. Patient was informed and verbally consented to the use of an ambient scribe for clinic note documentation during this visit. Discussion Notes I advised the patient on the critical importance of attending the emergency department immediately for assessment and management of the infective and potentially necrotic diabetic ulcer. We discussed the likely requirement for surgical intervention, including extensive amputation given the vascular supply concerns. I emphasized the high risk of sepsis without timely intervention. I outlined the current medical regimen and reiterated the need for consistent follow-up with cardiology, nephrology, infectious disease, and funeral planning counselor. The patient expressed understanding of the potential outcomes and agreed to proceed with the recommended urgent evaluation. Patient Instructions - Proceed to the emergency department immediately concerning the diabetic foot ulce/amputation. - Continue home medication regimen as prescribed. - Arrange follow-up appointments with vascular, nephrology, and cardiology specialists post-hospital visit. - Monitor signs of infection or sepsis and report any worsening symptoms immediately. [facility] TCM Information Date of Discharge 05/18/24 Discharged From [facility] Medical History Acute on chronic HFrEF (heart failure with reduced ejection fraction) History of osteomyelitis 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 Diverticulosis Tubular adenoma of colon (~2018) History of COVID-19 Nicotine dependence, cigarettes, uncomplicated Hypertensive retinopathy Microhematuria ICD (implantable cardioverter-defibrillator) in place COPD (chronic obstructive pulmonary disease) KIMANI (obstructive sleep apnea) Sleep apnea CAD (coronary artery disease) Paroxysmal atrial fibrillation (~2017) Surgical History History of amputation of left great toe History of cardiac cath History of ankle surgery History of implantable cardiac defibrillator (ICD) History of colonoscopy History of heart artery stent History of cardiac radiofrequency ablation History of cardioversion History of esophagogastroduodenoscopy History of umbilical hernia History of inguinal hernia Family History Father Atherosclerosis Mother Cerebral aneurysm Maternal Grandmother Unknown family medical history Mother Cerebral hemorrhage Father Coronary artery disease Social History Household Members: None Housing: House Are you a primary college and career counselor to a significant other at home: No Do you presently have visiting nurse or other home services: Yes (VNA) Alcohol intake: former Comment: refuses assistance OOB/high falls measures Patient Tobacco Use Status: Current everyday Tobacco user Tobacco use type: Cigarette Cigarette Packs Per Day: 1 Cigarettes Per Day: 2 Years Smoked: (current smoker - onset 14yo, 1ppd x 43yrs, 40pyh) e-Cigarette/Vaping Use: Never Used Second Hand Smoke Exposure: Yes Advance Directives Date on File: 07/09/21 service: No Current occupational status: unemployed and disabled Current occupation: rt handed Cognitive needs: No Hearing needs: No Vision needs: Yes Questionnaire Thrive Questionnaire Date Thrive assessed: 05/22/24 I am a: Patient What is your living situation today?: I have a place to live, but I am worried about losing it in the future Within the past 12 months, did the food you bought not last and you didn't have the money to get more?: Sometimes True Within the past 12 months, did you worry whether your food would run out before you got money to buy more?: Sometimes True Do you have trouble paying for medicines?: No Do you have trouble getting transportation to medical appointments?: No Do you have trouble paying your heating and electricity bill?: I choose not to answer this question Do you have trouble taking care of your child, family member or friend?: I choose not to answer this question Do you have trouble with day-to-day activities such as bathing, preparing meals, shopping, managing finances, etc.?: Yes Are you currently unemployed and looking for a job?: No Are you interested in more education?: No Please select the resources that you would like help with: None Currently or been in a relationship where the following occur: I choose not to answer THRIVE Score: 3 AUDIT C Alcohol Use Questionnaire (AUDIT-C) 1. How often do you have a drink containing alcohol?: Never 2. How many drinks containing alcohol do you have on a typical day when you are drinking?: 1 or 2 3. How often do you have six or more drinks on one occasion?: Never Total Score: 0 Score Reviewed/Action Taken: Yes DIPIKA-7 AMB Questionnaire DIPIKA-7 Date DIPIKA - 7 assessed: 01/03/24 Source: Developed by Drs. Cesar Santana, Julia Mays, Ian Shell and colleagues, with an educational nia from [employer]. Physical exam (Primary Care) Vital Signs: Last Vital Signs Pulse 86 05/22/24 09:09 BP 118/66 05/22/24 09:09 Pulse Ox 94 05/22/24 09:09 Oxygen Delivery Method Room Air 05/22/24 09:09 BMI result Body Mass Index 30.5 Tobacco/Smoking Status: Tobacco use Status Tobacco use date assessed 05/22/24 05/22/24 09:08 Patient Tobacco Use Status Current everyday Tobacco 05/22/24 09:08 Tobacco use type Cigarette 05/22/24 09:08 e-Cigarette/Vaping Use Never Used 05/22/24 09:08 Thrive Assessment: Date of Thrive Assessment Date Thrive assessed 05/22/24 05/22/24 09:08 Currently or been in a relationship where the following occur: I choose not to answer Coding Level of Care Code Est Pt Level 3 (69381) Diagnoses Diabetic infection of left foot E11.628; L08.9 CHF (congestive heart failure) I50.9 Atrial fibrillation with rapid ventricular response I48.91 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 E11.621; L97.509 Assessment & Plan Assessment & Plan (1) Diabetic infection of left foot: Code(s): E11.628 - Type 2 diabetes mellitus with other skin complications; L08.9 - Local infection of the skin and subcutaneous tissue, unspecified Category: Medical (2) CHF (congestive heart failure): Code(s): I50.9 - Heart failure, unspecified Category: Medical (3) Atrial fibrillation with rapid ventricular response: Code(s): I48.91 - Unspecified atrial fibrillation Category: Medical (4) 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: Code(s): E11.621 - Type 2 diabetes mellitus with foot ulcer; L97.509 - Non-pressure chronic ulcer of other part of unspecified foot with unspecified severity Category: Medical Plan .
[2024-05-22 09:09] VITALS: BP 118/66; PULSE 86; O2SAT 94; BMI 30.5
== END 2024-05-22 11:57 | disposition home or self-care (01) ==
PROVIDERS: PCP Nurse Practitioner Family; Visit Provider Nurse Practitioner Family
DX: E11.628 Type 2 diabetes mellitus with other skin complications (principal); I50.9 Heart failure, unspecified; I48.91 Unspecified atrial fibrillation; E11.621 Type 2 diabetes mellitus with foot ulcer; L97.509 Non-pressure chronic ulcer of other part of unspecified foot with unspecified severity; L08.9 Local infection of the skin and subcutaneous tissue, unspecified

== ENCOUNTER → 2024-05-22 09:01 | Outpatient (BNVA) | payer OTHER, SELFPAY | PROVIDERS: PCP Nurse Practitioner Family; Visit Provider Nurse Practitioner Family | DX: E11.628 Type 2 diabetes mellitus with other skin complications (principal); L08.9 Local infection of the skin and subcutaneous tissue, unspecified; I50.9 Heart failure, unspecified; I48.91 Unspecified atrial fibrillation; E11.621 Type 2 diabetes mellitus with foot ulcer; L97.509 Non-pressure chronic ulcer of other part of unspecified foot with unspecified severity | CPT/HCPCS: 99212 ==

== ENCOUNTER 2024-05-22 14:24 | Inpatient (IN) | payer OTHER, SELFPAY ==
--- NOTE | ~2024-05-22 | XR_ITS ---
EXAMINATION: XR FOOT, LEFT CLINICAL INFORMATION: open wounds. osteomyelitis? COMPARISON: 04/19/2024 TECHNIQUE: AP, lateral, and oblique views of the left foot. FINDINGS: Status post first digit transmetatarsal amputation. Osteotomy site is unchanged and appears intact. Large soft tissue ulceration and wound over the medial foot with increased soft tissue air and destructive changes at the base of the second digit involving the second proximal phalanx and head of the second metatarsal consistent with worsening acute osteomyelitis XR/XR foot LT 2V IMPRESSION: Worsening acute osteomyelitis involving the second proximal phalanx and head of the second metatarsal. Electronically signed by: Curry Malagon MD 05/22/2024 09:01 PM EST RP
--- NOTE | ~2024-05-22 | XR_ITS ---
EXAMINATION: XR CHEST CLINICAL INFORMATION: Acute resp failure COMPARISON: May 03, 2024. TECHNIQUE: Portable AP view of the chest was obtained. FINDINGS: The study is limited by portable technique and low lung volumes. Mild diffuse interstitial prominence. It is uncertain whether this represents artifactual crowding of the interstitium related to suboptimal inspiration versus true infiltrate. No consolidation, large effusion, or pneumothorax is seen. The cardiac silhouette is suboptimally evaluated, probably enlarged. The tips of right subclavian pulse generator device leads project over the right atrium and right ventricle. Mild degenerative changes of the spine. XR/XR chest 1V IMPRESSION: Findings as above. Electronically signed by: Ash Berg MD 05/26/2024 09:30 AM [facility]
--- NOTE | ~2024-05-22 | CT_ITS ---
EXAMINATION: CT left foot with IV contrast CLINICAL INFORMATION: Left foot redness open wound drainage. abscess? COMPARISON: [May 22, 2024 TECHNIQUE: Intravenous injection of 85 mL Omnipaque 350. Axial images obtained through the foot. Coronal and sagittal reformatted images are performed at CT scanner. [This CT examination was performed using dose optimization techniques as appropriate, variously including the following: *Automated exposure control *Adjustment of mA and/or kV according to patient size (this includes techniques or standardized protocols for targeted exams where dose is matched to indication/reason for exam; i.e. extremities or head) *Use of iterative reconstruction technique] FINDINGS: Status post amputation of the great toe through the distal shaft of the first metatarsal. There is soft tissue ulceration at the base of the foot adjacent to the head of the second metatarsal. There is bone destruction involving the head of second metatarsal and the proximal phalangeal the of the second toe. There is a small volume of air in the soft tissues adjacent to the proximal phalangeal. Findings consistent with osteomyelitis. No drainable abscess. There is soft tissue edema throughout the foot. CT/CT foot LT w IV con IMPRESSION: Soft tissue ulceration at the base of the foot adjacent to the head of the second metatarsal. There is bone destruction involving the head of the second metatarsal and the proximal phalangeal of the second toe. Findings consistent with osteomyelitis. No drainable abscess. Electronically signed by: Mansoor Perez MD 05/22/2024 09:18 PM [facility]
--- NOTE | ~2024-05-22 | US_ITS ---
EXAMINATION: US ABDOMEN COMPLETE CLINICAL INFORMATION: Elevated LFTs. COMPARISON: Most recent CT abdomen/pelvis dated 05/03/2024. TECHNIQUE: Real-time imaging of the abdominal viscera. FINDINGS: PANCREAS: Partially visualized and grossly unremarkable. ABDOMINAL AORTA: Not well seen due to overlying bowel gas. INFERIOR VENA CAVA: Visualized portions are normal. LIVER: The liver is normal in size. The liver contour is normal. Increased hepatic parenchymal echogenicity. No focal hepatic lesion. There is no intrahepatic biliary duct dilatation seen. GALLBLADDER: No cholelithiasis. Mild gallbladder wall thickening with intramural fluid. Negative sonographic Morris sign. COMMON BILE DUCT: Normal in caliber measuring 0.3 cm in diameter. RIGHT KIDNEY: No hydronephrosis. No renal calculi or focal parenchymal lesions. The kidney measures 12.2 cm in maximum dimension. LEFT KIDNEY: No hydronephrosis. No renal calculi or focal parenchymal lesions. The kidney measures 11.7 cm in maximum dimension. SPLEEN: Not seen. FREE FLUID: Small amount of ascites. US/US abdomen complete IMPRESSION: 1. Mild ascites. No large mass or organized fluid collection. 2. Increased hepatic parenchymal echogenicity, which can be seen in the setting of steatosis. Underlying hepatocellular disease cannot be excluded. No hepatic parenchymal lesion or biliary ductal dilatation. 3. No cholelithiasis, gallbladder wall thickening, or pericholecystic free fluid to suggest acute cholecystitis. Negative sonographic Morris sign. Electronically signed by: Shin Siddiqui MD 05/28/2024 09:35 AM [facility] Workstation: [id number]
[2024-05-22 14:34] VITALS: BP 120/70; BP 123/76; PULSE 70; PULSE 86; RESP 16; TEMP 36.7; O2SAT 99; BMI 34.9
[2024-05-22 14:58] LABS: Basophils Absolute Auto 0.1 X10*3/uL (0.0-0.2); Basophils Percent Auto 1.1 % (0-2); Eosinophils Absolute Auto 0.6 X10*3/uL (0.0-0.4); Eosinophils Percent Auto 5.2 % (0-4); Hematocrit 32.7 % (42.0-52.0); Hemoglobin 9.7 g/dl (14.0-18.0); Imm Gran Abs Auto 0.06 X10*3/uL (0.00-0.03); Imm Gran Pct Auto 0.5 % (0.0-0.4); Lymphocytes Percent Auto 17.6 % (20-40); Mean Corpuscular HGB Conc 29.7 g/dl (31.0-36.0); Mean Corpuscular Hemoglobin 23.8 pg (27.0-33.0); Mean Corpuscular Volume 80.1 fL (80.0-98.0); Mean Platelet Volume 10.2 fL (9.4-12.4); Monocytes Absolute Auto 0.9 X10*3/uL (0.1-1.2); Monocytes Percent Auto 7.9 % (2-11); Neutrophils Absolute Auto 7.8 x10*3/uL (2.0-8.3); Neutrophils Percent Auto 67.7 % (45-73); Platelet Count 357 X10*3/uL (160-400); Red Blood Count 4.08 X10*6/uL (4.60-5.80); Red Cell Distribution Width 24.6 % (11.0-16.0); White Blood Count 11.5 X10*3/uL (4.8-10.8)
[2024-05-22 14:59] LABS: MANUAL DIFF FLAG NO
[2024-05-22 15:17] LABS: Alanine Aminotransferase 29 U/L (0-40); Albumin Level 3.5 g/dL (3.5-5.0); Alkaline Phosphatase 130 U/L (39-117); Anion Gap 14 (12-20); Aspartate Amino Transferase 25 U/L (5-37); Bilirubin Total 0.6 mg/dL (0.0-1.0); Blood Urea Nitrogen 34 mg/dL (9-16); Calcium 9.1 mg/dL (8.4-10.2); Carbon Dioxide 33 mmol/L (22-29); Chloride 95 mmol/L (96-108); Creatinine Clr Calc Pharmacy 70.8; Estimated Glomerular Filt Rate 51; Glucose Random 177 mg/dL (60-115); Magnesium 2.5 mg/dL (1.6-2.6); Potassium 3.7 mmol/L (3.3-5.1); Sodium 138 mmol/L (135-145); Total Protein 7.1 g/dL (6.5-8.0)
[2024-05-22 15:25] LABS: Lactic Acid 2.2 mmol/L (0.5-2.0)
[2024-05-22 16:01] VITALS: BP 111/69; PULSE 81; RESP 20; TEMP 36.6; O2SAT 98
[2024-05-22 16:56] LABS: Reflex Lactate? Lactic Acid Added
[2024-05-22 19:05] LABS: C Reactive Protein 9.46 mg/dL (< or = 0.50)
[2024-05-22] MEDS: Morphine Sulfate 4 MG/ML CARTRIDGE IVPUSH (19:11)
--- NOTE | 2024-05-22 19:27 | ED.GENADULT ---
HPI - General Adult General Chief complaint: General Medical Stated complaint: LLE PAIN FROM CHRONIC FOOT INFECTION PER EMS Time Seen by Provider: 05/22/24 18:08 Source: patient Mode of arrival: ambulatory Limitations: no limitations History of Present Illness ED Provider: Ronn CHAWLA HPI narrative: 58 yold male with pmh of CHF, diabetes, peripheral arterial disease, AFib, cellulitis presents to ED for worsening left foot wound. Patient was informed that foot has bone infection and she is supposed to have an amputation. Patient states due to his history of CHF surgeon is not proceeding with performing the surgical procedure. Patient denies any chest pain or shortness of breath. Patient was sent by primary care provider Related Data Home Medications ?Medication ?Instructions ?Recorded ?Confirmed colchicine 0.6 mg tablet 0.6 mg PO DAILY 11/18/23 05/18/24 insulin glargine 100 unit/mL (3 17 unit subcut BEDTIME 11/18/23 05/18/24 mL) subcutaneous pen (Lantus Solostar U-100 Insulin) insulin lispro 100 unit/mL 7 unit subcut TIDAC 11/18/23 05/18/24 subcutaneous solution albuterol sulfate 2.5 mg/3 mL 2.5 mg inhalation Q6H PRN 03/23/24 05/18/24 (0.083 %) solution for nebulization Shortness Of Breath Or Wheezing apixaban 5 mg tablet (Eliquis) 5 mg PO BID 03/23/24 05/18/24 empagliflozin 10 mg tablet 10 mg PO DAILY 03/23/24 05/18/24 (Jardiance) fluticasone propionate 45 2 puff inhalation BID 03/23/24 05/18/24 mcg-salmeterol 21 mcg/actuation HFA inhaler (Advair HFA) sennosides 8.6 mg tablet (senna) 17.2 mg PO BEDTIME 03/23/24 05/18/24 Previous Rx's ?Medication ?Instructions ?Recorded pen needle, diabetic 31 gauge x #400 ea 10/12/2209/10 (BD Ultra-Fine Mini Pen Needle) diabetic shoes with custom insert #1 ea 12/31/23 for left shoe aspirin 81 mg tablet,delayed 81 mg PO DAILY #90 tabs 01/26/24 release (Adult Low Dose Aspirin) melatonin 3 mg tablet 3 mg PO BEDTIME insomnia #90 tabs 01/26/24 omeprazole 20 mg capsule,delayed 20 mg PO DAILY@0630 90 days #90 01/26/24 release caps sertraline 25 mg tablet 25 mg PO DAILY #90 tabs 01/26/24 thiamine HCl (vitamin B1) 100 mg 100 mg PO DAILY #90 tabs 01/26/24 tablet blood-glucose sensor (FreeStyle #6 ea 02/29/24 Samantha 3 Sensor device) FreeStyle Lite Strips (blood sugar #300 ea 03/11/24 diagnostic) gabapentin 300 mg capsule 300 mg PO TID #270 caps 03/12/24 isosorbide dinitrate 5 mg tablet 5 mg PO 0800,1300,1800 #90 tabs 04/04/24 metoprolol succinate 25 mg 25 mg PO DAILY #30 tabs 04/04/24 tablet,extended release 24 hr ferrous sulfate 325 mg (65 mg 325 mg PO DAILY #30 tabs 05/17/24 iron) tablet (Iron (ferrous sulfate)) torsemide 20 mg tablet 20 mg PO DAILY #30 tabs 05/17/24 amiodarone 200 mg tablet 200 mg PO DAILY #90 tabs 05/19/24 Allergies Allergy/AdvReac Type Severity Reaction Status Date / Time No Known Allergies Allergy Verified 05/22/24 14:37 [No Known Allergies*] Review of Systems Review of Systems: Chronic left foot wound that is more painful. Yes all other systems are reviewed and are negative [facility] Past Medical History Medical History Acute on chronic HFrEF (heart failure with reduced ejection fraction) History of osteomyelitis 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 Diverticulosis Tubular adenoma of colon (~2017) History of COVID-19 Nicotine dependence, cigarettes, uncomplicated Hypertensive retinopathy Microhematuria ICD (implantable cardioverter-defibrillator) in place COPD (chronic obstructive pulmonary disease) KIMANI (obstructive sleep apnea) Sleep apnea CAD (coronary artery disease) Paroxysmal atrial fibrillation (~2016) Surgical History History of amputation of left great toe History of cardiac cath History of ankle surgery History of implantable cardiac defibrillator (ICD) History of colonoscopy History of heart artery stent History of cardiac radiofrequency ablation History of cardioversion History of esophagogastroduodenoscopy History of umbilical hernia History of inguinal hernia Family History Family History Father Atherosclerosis Mother Cerebral aneurysm Maternal Grandmother Unknown family medical history Mother Cerebral hemorrhage Father Coronary artery disease Social History Social History Household Members: None Housing: House Are you a primary day care aide to a significant other at home: No Do you presently have visiting nurse or other home services: Yes Alcohol intake: former Comment: refuses assistance OOB/high falls measures Patient Tobacco Use Status: Current everyday Tobacco user Tobacco use type: Cigarette Cigarette Packs Per Day: 1 Cigarettes Per Day: 2 Years Smoked: (current smoker - onset 14yo, 1ppd x 43yrs, 40pyh) e-Cigarette/Vaping Use: Never Used Second Hand Smoke Exposure: Yes Advance Directives Date on File: 07/09/21 service: No Current occupational status: unemployed and disabled Current occupation: rt handed Cognitive needs: No Hearing needs: No Vision needs: Yes Physical Exam ED Vital Signs: Vital Signs - 24 hr 05/22/24 14:34 05/22/24 16:01 05/22/24 22:49 Temperature 98.0 F 97.9 F 98.2 F Pulse Rate 70 81 83 Respiratory Rate 16 20 18 Blood Pressure 120/70 111/69 106/67 Pulse Oximetry 99 98 95 Oxygen Delivery Method Room Air Room Air Room Air BMI result Body Mass Index 34.9 Const General: cooperative, healthy appearing, comfortable, no acute distress, well developed, alert, awake and Physically active Orientation/consciousness: patient oriented x3 HENMT Head: Yes normal to inspection, Yes No palpable skull fracture present, Yes normocephalic and Yes atraumatic Eyes General: appearance normal, both eyes and all related structures Neck Neck: Yes normal visual inspection, Yes full ROM, Yes no lymphadenopathy, Yes no meningeal signs, Yes trachea midline, Yes supple, No anterior neck swelling and No tender Chest Chest palpation & inspection: normal inspection of the chest and normal palpation of entire chest wall Resp Effort & Inspection: normal respiratory effort and able to speak in complete sentences Auscultation: clear to auscultation bilaterally Cardio Jugular venous distension: no JVD Heart sounds: S1 normal heart sound present and S2 normal heart sound present GI Inspection: Yes normal to inspection Palpation (GI): Soft to palpation, not firm, nontender, no guarding and not rigid General: Yes no CVA tenderness Back/Spine/Pelvis Back: no CVA tenderness and No back tenderness Skin General skin exam: no rashes or lesions noted, elasticity normal and turgor normal Neuro General: patient oriented x3, gait normal, tone normal, moves all extremities, Normal light touch and pain sensation, no meningeal signs, no focal motor deficits, CN's II-XI intact bilaterally and normal sensation to monofilament Extrem Other: Psych Appearance: grossly normal, well kempt and not disheveled Medications Administered Generic Name Dose Route Start Last Admin Trade Name Freq PRN Reason Stop Dose Admin Insulin Glargine 17 unit 05/23/24 00:20 05/23/24 01:23 Insulin Glargine,Hum.Rec.Anlog 100 Unit/Ml 10 Ml Vial SUBCUT 17 unit BEDTIME MARILEE Administration Sodium Chloride 3 ml 05/23/24 00:00 05/23/24 01:20 0.9 % Sodium Chloride Flush 3 Ml Syringe IVFLUSH 3 ml QSHIFT MARILEE Administration Discontinued Medications Generic Name Dose Route Start Last Admin Trade Name Freq PRN Reason Stop Dose Admin Hydromorphone HCl 1 mg 05/22/24 23:45 05/23/24 00:22 Hydromorphone Hcl 1 Mg/Ml Syringe IVPUSH 05/22/24 23:46 1 mg ONCE STA Administration Protocol Piperacillin Sod/Tazobactam 50 mls @ 100 mls/hr 05/22/24 19:59 05/22/24 22:30 Sod 3.375 gm/ Sodium Chloride IV 05/22/24 20:28 Infused ONCE ONE Infusion Vancomycin HCl 2,000 mg in 500 mls @ 250 mls/hr 05/22/24 19:59 05/23/24 01:30 Vancomycin/Ns IV 05/22/24 21:58 Infused ONCE ONE Infusion Iohexol 100 ml 05/22/24 19:30 05/22/24 19:30 Iohexol 350 Mg/Ml 100 Ml Infus..Btl IV 05/22/24 19:31 85 ml ONCE ONE Administration Morphine Sulfate 4 mg 05/22/24 18:56 05/22/24 19:11 Morphine Sulfate 4 Mg/Ml Cartridge IVPUSH 05/22/24 18:57 4 mg ONCE ONE Administration Protocol Medical Decision Making Medical Decision Making [facility] Narrative: 58-year-old male presents to ED for worsening left foot wound that is drainage. Patient states he has a bone infection and foot that requires surgical amputation as medical history. Patient has a mild DECLAN. Waiting for BNP to make sure that could give fluids. Will do CT scan IV contrast to rule out any tracking abscess or osteo. Ejection fraction 50 20%. 12:47am: Patient is admitted for osteomyelitis. Case discussed with Dr. Webb who accepted the case. X-ray and CT scan of without any drainable abscess. Patient is started on vanco and Zosyn. Due to severe ejection fraction 15 20% patient was not given fluids for lactic acidosis. Patient was given morphine for pain. Differential Diagnosis Differential Diagnoses: The differential diagnosis associated with the presentation includes (Diabetic foot, osteomyelitis, for) Admission/Observation Consideration of admission/observation: Escalation of care including admission/observation considered Consult Healthcare Provider Management of the patient was discussed with: Hospitalist (Dr. Webb) Lab Data [facility] Lab Attestation statement: I reviewed the patient's lab results. 05/22/24 14:52 05/22/24 14:52 Labs: Lab Results 05/22/24 05/22/24 Range/Units 14:52 19:10 WBC 11.5 H (4.8-10.8) X10*3/uL RBC 4.08 L (4.60-5.80) X10*6/uL Hgb 9.7 L (14.0-18.0) g/dl Hct 32.7 L (42.0-52.0) % MCV 80.1 (80.0-98.0) fL MCH 23.8 L (27.0-33.0) pg MCHC 29.7 L (31.0-36.0) g/dl RDW 24.6 H (11.0-16.0) % Plt Count 357 D (160-400) X10*3/uL MPV 10.2 (9.4-12.4) fL Immature Gran % (Auto) 0.5 H (0.0-0.4) % Neut % (Auto) 67.7 (45-73) % Lymph % (Auto) 17.6 L (20-40) % [place] % (Auto) 7.9 (2-11) % Eos % (Auto) 5.2 H (0-4) % Baso % (Auto) 1.1 (0-2) % Lymph # (Auto) 2.0 (1.2-4.9) X10*3/uL [place] # (Auto) 0.9 (0.1-1.2) X10*3/uL Eos # (Auto) 0.6 H (0.0-0.4) X10*3/uL Baso # (Auto) 0.1 (0.0-0.2) X10*3/uL Abs Immat Gran (auto) 0.06 H (0.00-0.03) X10*3/uL Absolute Neuts (auto) 7.8 (2.0-8.3) x10*3/uL Absolute Nucleated RBC 0.000 (0.0-0.012) X10*3/uL Nucleated RBC % (auto) 0.0 (0.0-0.2) /100WBC ESR 36 H (0-15) MM/HR Sodium 138 (135-145) mmol/L Potassium 3.7 D (3.3-5.1) mmol/L Chloride 95 L (96-108) mmol/L Carbon Dioxide 33 H (22-29) mmol/L Anion Gap 14 (12-20) BUN 34 H (9-16) mg/dL Creatinine 1.42 H (0.5-1.4) mg/dL Estim Creat Clear Calc 70.8 Estimated GFR 51 Random Glucose 177 H (60-115) mg/dL Lactic Acid 2.2 H* (0.5-2.0) mmol/L Lactic Acid F/U @ 2Hr 1.3 (0.5-2.0) mmol/L Calcium 9.1 (8.4-10.2) mg/dL Magnesium 2.5 (1.6-2.6) mg/dL Total Bilirubin 0.6 (0.0-1.0) mg/dL AST 25 (5-37) U/L ALT 29 (0-40) U/L Alkaline Phosphatase 130 H (39-117) U/L C-Reactive Protein 9.46 H (< or = 0.50) mg/dL B-Natriuretic Peptide 3569 H (<100) pg/mL Total Protein 7.1 (6.5-8.0) g/dL Albumin 3.5 (3.5-5.0) g/dL Independent Interpretation I performed an independent interpretation of an: Plain X-Ray and CT Scan Radiology Impression Discussion of test interpretation with radiology: I have reviewed the radiologist's reading. Independent Historian Clinical information obtained from an independent historian. History obtained from or confirmed by: Other (Patient) External Record Review External record reviewed: Other (Prior visits) Prescription Management I considered prescription management with: Antibiotic Critical Care Time Critical Care Time Critical Care Time: Yes Total Critical Care Time: 60 Attestation: Osteomyelitis, diabetic foot. Lactate elevated. Not able to give fluids due to severe CHF. Ejection fraction 15 20%. Case discussed with hospitalist. Patient admitted Discharge Plan Discharge Clinical Impression: Osteomyelitis, Osteomyelitis of second toe of left foot Patient Disposition: Admitted As Inpatient Interventions: Admission Worksheet (ED) Last Done: 05/23/24 00:51 Discharge Date/Time: 05/23/24 01:08
[2024-05-22 19:29] LABS: ~Lactic Acid-LAB USE ONLY 1.3 mmol/L (0.5-2.0)
[2024-05-22] MEDS: iohexoL 350 MG/ML 100 ML INFUS..BTL IV (19:30)
[2024-05-22 19:53] LABS: B Type Natriuretic Peptide 3569 pg/mL (<100)
[2024-05-22 19:54] LABS: Erythrocyte Sedimentation Rate 36 MM/HR (0-15)
[2024-05-22] MEDS: Piperacillin Sodium/Tazobactam 3.375 GM in 0.9 % Sodium Chloride 50 ML IV (21:41)
[2024-05-22] MEDS: vancomycin/NS 2,000 MG/500 ML PLAST..BAG 250 MG IV (21:56)
[2024-05-22 22:49] VITALS: BP 106/67; PULSE 83; RESP 18; TEMP 36.8; O2SAT 95
--- NOTE | 2024-05-22 23:59 | P.HPHOSP_ITS ---
History of Present Illness Date of Service: 05/22/24 Attending physician on admission: Concepcion Sullivan Chief Complaint: Left foot pain Jr Cruz is a 58 years old man with past medical history significant for chronic left diabetic foot/ulcer (recent admission requiring a course of IV daptomycin and ertapenem), PAD, COPD -no home oxygen, AFib on Eliquis, CAD, cardiomyopathy, sleep apnea on CPAP and type 2 diabetes mellitus on insulin presents to the emergency department complaining of worsening left foot pain associated with worsening swelling and discharge coming from plantar ulcer and between 2nd and 3rd toe. He did not report fevers chills. He did not report any acute gastrointestinal, cardiopulmonary or genitourinary symptoms. In the ED, he was found to have normal vital signs. Blood workup showed leukocytosis of 11.5. There is mild lactic acidosis that normalized found 2.2 to 1.3. Hemoglobin is 9.7 which is around baseline. CRP is 9.46. Platelets are normal. INR is 1.4. Creatinine is 1.42 (slightly higher than prior 1.24), CO2 is 33 which is around baseline. LFTs are basically unremarkable. Left foot CT scan showed finding consistent with osteomyelitis showed left 2nd metatarsal and proximal phalanx osteomyelitis without abscesses. ED tx: Morphine 4 mg IV, Zosyn 3.375 g IV, vancomycin 2 g IV Review of Systems 2 Review of Systems: All 12 systems were reviewed and normal except as noted in HPI. [facility] Medical History Acute on chronic HFrEF (heart failure with reduced ejection fraction) History of osteomyelitis 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 Diverticulosis Tubular adenoma of colon (~2018) History of COVID-19 Nicotine dependence, cigarettes, uncomplicated Hypertensive retinopathy Microhematuria ICD (implantable cardioverter-defibrillator) in place COPD (chronic obstructive pulmonary disease) KIMANI (obstructive sleep apnea) Sleep apnea CAD (coronary artery disease) Paroxysmal atrial fibrillation (~2017) Family History Father Atherosclerosis Mother Cerebral aneurysm Maternal Grandmother Unknown family medical history Mother Cerebral hemorrhage Father Coronary artery disease Surgical History History of amputation of left great toe History of cardiac cath History of ankle surgery History of implantable cardiac defibrillator (ICD) History of colonoscopy History of heart artery stent History of cardiac radiofrequency ablation History of cardioversion History of esophagogastroduodenoscopy History of umbilical hernia History of inguinal hernia Social History Household Members: None Housing: House Are you a primary ambulatory care to a significant other at home: No Do you presently have visiting nurse or other home services: Yes ([facility]) Alcohol intake: former Comment: refuses assistance OOB/high falls measures Patient Tobacco Use Status: Current everyday Tobacco user Tobacco use type: Cigarette Cigarette Packs Per Day: 1 Cigarettes Per Day: 2 Years Smoked: (current smoker - onset 14yo, 1ppd x 43yrs, 40pyh) Smoked in Last 30 Days: No e-Cigarette/Vaping Use: Never Used Second Hand Smoke Exposure: Yes Use of substances other than those prescribed or required for medical reasons: No Advance Directives: Yes Advance Directives on File: Yes Advance Directives Date on File: 07/09/21 Do you have a plan to hurt others: No Plan service: No Current occupational status: unemployed and disabled Current occupation: rt handed Cognitive needs: No Hearing needs: No Vision needs: Yes Meds Allergies Allergy/AdvReac Type Severity Reaction Status Date / Time No Known Allergies Allergy Verified 05/22/24 14:37 [No Known Allergies*] Active Medications: Current Medications Acetaminophen (Acetaminophen 325 Mg Tablet) 975 mg PO Q6H PRN PRN Reason: Pain, Mild (Pain Scale 1-3), fever or headache Magnesium Hydroxide (Milk Of Magnesia 30 Ml Oral.Susp) 30 ml PO DAILY PRN PRN Reason: Constipation Melatonin (Melatonin 3 Mg Tablet) 6 mg PO BEDTIME PRN PRN Reason: Insomnia Ondansetron HCl (Ondansetron Hcl 4 Mg/2 Ml Vial) 4 mg IVPUSH Q8H PRN PRN Reason: Nausea and Vomiting Sodium Chloride (0.9 % Sodium Chloride Flush 3 Ml Syringe) 3 [facility] Medications ?Medication ?Instructions ?Recorded ?Confirmed ?Last Taken ?Type colchicine 0.6 mg tablet 0.6 mg PO DAILY 11/18/23 05/18/24 05/03/24 History insulin glargine 100 unit/mL (3 17 unit subcut BEDTIME 11/18/23 05/18/24 05/02/24 History mL) subcutaneous pen (Lantus Solostar U-100 Insulin) insulin lispro 100 unit/mL 7 unit subcut TIDAC 11/18/23 05/18/24 05/03/24 History subcutaneous solution albuterol sulfate 2.5 mg/3 mL 2.5 mg inhalation Q6H PRN 03/23/24 05/18/24 Unknown History (0.083 %) solution for nebulization Shortness Of Breath Or Wheezing apixaban 5 mg tablet (Eliquis) 5 mg PO BID 03/23/24 05/18/24 05/03/24 History empagliflozin 10 mg tablet 10 mg PO DAILY 03/23/24 05/18/24 05/03/24 History (Jardiance) fluticasone propionate 45 2 puff inhalation BID 03/23/24 05/18/24 05/03/24 History mcg-salmeterol 21 mcg/actuation HFA inhaler (Advair HFA) sennosides 8.6 mg tablet (senna) 17.2 mg PO BEDTIME 03/23/24 05/18/24 05/02/24 History Physical Exam 2 Vital Signs and Narrative: Vital Signs: Last Vital Signs Temp 98.2 F 05/22/24 22:49 Pulse 83 05/22/24 22:49 Resp 18 05/22/24 22:49 BP 106/67 05/22/24 22:49 Pulse Ox 95 05/22/24 22:49 O2 Del Method Room Air 05/22/24 22:49 BMI result Body Mass Index 34.9 Constitutional - Awake and Alert. Looks uncomfortable due to pain. HEENT - PER, EOMI Heart - S1S2, RRR, No murmurs. Respiratory - Normal lung expansion, Normal respiratory effort, No respiratory distress, CTA bilaterally Gastrointestinal - NT / ND; +BS; No rebound or guarding - No CVA tenderness Extremities - Left foot: Musculoskeletal - Normal inspection, normal ROM Skin - Warm/Dry Neurological - Alert & oriented x3. No focal weakness grossly noted. Normal speech. Psychological - Appropriate affect Results Labs 05/22/24 14:52 05/22/24 14:52 Labs: Laboratory Results - last 24 hr 05/22/24 05/22/24 14:52 19:10 MCV 80.1 MCH 23.8 L MCHC 29.7 L RDW 24.6 H Plt Count 357 D MPV 10.2 Immature Gran % (Auto) 0.5 H Neut % (Auto) 67.7 Lymph % (Auto) 17.6 L [place] % (Auto) 7.9 Eos % (Auto) 5.2 H Baso % (Auto) 1.1 Lymph # (Auto) 2.0 [place] # (Auto) 0.9 Eos # (Auto) 0.6 H Baso # (Auto) 0.1 Abs Immat Gran (auto) 0.06 H Absolute Neuts (auto) 7.8 Absolute Nucleated RBC 0.000 Nucleated RBC % (auto) 0.0 ESR 36 H Anion Gap 14 Estim Creat Clear Calc 70.8 Estimated GFR 51 Random Glucose 177 H Lactic Acid 2.2 H* Lactic Acid F/U @ 2Hr 1.3 Calcium 9.1 Magnesium 2.5 Total Bilirubin 0.6 AST 25 ALT 29 Alkaline Phosphatase 130 H C-Reactive Protein 9.46 H B-Natriuretic Peptide 3569 H Total Protein 7.1 Albumin 3.5 Imaging Radiologist's Impressions: Impressions Foot X-Ray 05/22/24 18:52 IMPRESSION: Worsening acute osteomyelitis involving the second proximal phalanx and head of the second metatarsal. Electronically signed by: Curry Malagon MD 05/22/2024 09:01 PM EST RP Foot CT 05/22/24 19:28 IMPRESSION: Soft tissue ulceration at the base of the foot adjacent to the head of the second metatarsal. There is bone destruction involving the head of the second metatarsal and the proximal phalangeal of the second toe. Findings consistent with osteomyelitis. No drainable abscess. Electronically signed by: Mansoor Perez MD 05/22/2024 09:18 PM EST RP Assessment and Plan (1) Osteomyelitis of second toe of left foot: Status: Acute (2) Cellulitis of left foot: Status: Acute (3) Diabetic infection of left foot: Status: Acute Plan Jr Cruz is a 58 y/o man admitted with: * Left 2nd metatarsal and proximal phalanx osteomyelitis and cellulitis. Admit to hospitalist service. Restart daptomycin and ertapenem. ID and vascular surgery consult. Blood cultures obtained -follow results. * HFrEF, 15-20%. Continue home torsemide, valsartan, metoprolol and Jardiance. * AFib, rate controlled. Continue amiodarone, metoprolol and Eliquis. * COPD. Not in exacerbation. Continue inhalers. * Type 2 diabetes mellitus. Diabetic diet. BG checks before meals at bedtime. Insulin sliding scale and Lantus. * KIMANI. Nocturnal CPAP. * CAD/PAD. Continue aspirin, metoprolol and isosorbide. Not taking statin. * Mood disorder. Continue home meds. Code status: Full DVT prophylaxis: [place] Patient will need hospitalization for at least 2 midnights for left 2nd metatarsal and proximal phalanx osteomyelitis management with IV antibiotics and evaluation by Surgical Service for possible amputation. Quality Stroke Does the patient have a stroke diagnosis?: No VTE Prior VTE?: No VTE Risk Level:: Medical - moderate - high VTE Device Contraindication: Treatment Not Indicated VTE Drug Contraindication: Treatment Not Indicated
[2024-05-23] VITALS (10 sets, daily range): BP systolic 107–150; BP diastolic 64–104; PULSE 70–87; RESP 18–68; TEMP 36.1–37.2; O2SAT 83–96; BMI 30.5
[2024-05-23] MEDS: HYDROmorphone HCl 1 MG/ML SYRINGE IVPUSH (00:22)
[2024-05-23] MEDS: 0.9 % Sodium Chloride Flush 3 ML SYRINGE IVFLUSH ×4 (01:20→19:58)
[2024-05-23] MEDS: Insulin Glargine,Hum.rec.anlog 100 UNIT/ML 10 ML VIAL 17 UNIT SUBCUT (01:23)
[2024-05-23 01:31] LABS: Glucose, Whole Blood 128 mg/dL (60-115)
[2024-05-23 05:46] LABS: MANUAL DIFF FLAG NO
[2024-05-23 05:48] LABS: Basophils Absolute Auto 0.2 X10*3/uL (0.0-0.2); Basophils Percent Auto 1.3 % (0-2); Eosinophils Absolute Auto 0.6 X10*3/uL (0.0-0.4); Eosinophils Percent Auto 4.6 % (0-4); Hematocrit 31.9 % (42.0-52.0); Hemoglobin 9.5 g/dl (14.0-18.0); Imm Gran Abs Auto 0.07 X10*3/uL (0.00-0.03); Imm Gran Pct Auto 0.6 % (0.0-0.4); Lymphocytes Absolute Auto 2.3 X10*3/uL (1.2-4.9); Lymphocytes Percent Auto 18.4 % (20-40); Mean Corpuscular HGB Conc 29.8 g/dl (31.0-36.0); Mean Corpuscular Hemoglobin 23.8 pg (27.0-33.0); Mean Corpuscular Volume 79.9 fL (80.0-98.0); Monocytes Percent Auto 7.7 % (2-11); Neutrophils Absolute Auto 8.3 x10*3/uL (2.0-8.3); Neutrophils Percent Auto 67.4 % (45-73); Platelet Count 353 X10*3/uL (160-400); Red Blood Count 3.99 X10*6/uL (4.60-5.80); Red Cell Distribution Width 24.6 % (11.0-16.0); White Blood Count 12.3 X10*3/uL (4.8-10.8)
[2024-05-23 06:08] LABS: Anion Gap 18 (12-20); Blood Urea Nitrogen 33 mg/dL (9-16); Calcium 8.9 mg/dL (8.4-10.2); Carbon Dioxide 27 mmol/L (22-29); Chloride 96 mmol/L (96-108); Creatinine Clr Calc Pharmacy 65.9; Estimated Glomerular Filt Rate 50; Glucose Random 132 mg/dL (60-115); Potassium 4.6 mmol/L (3.3-5.1); Sodium 136 mmol/L (135-145)
[2024-05-23 07:28] LABS: Glucose, Whole Blood 112 mg/dL (60-115)
--- NOTE | 2024-05-23 08:25 | PHA.MEDREC ---
Addendum entered by Stacy Guillaume RPh 05/23/24 08:40: [facility] rec reviewed by caron Original Note: Pharmacy Consult ? Medication Reconciliation Pharmacy has completed the medication reconciliation. Spoke with patient and he confirmed the discharge packet from 05/17 was up to date and nothing changed since then. He confirmed he stopped the Hydralazine 10mg tab 05/17. He also confirmed he started taking the Torsemide 20mg daily tab that was changed 05/17 and also that day the Ferrous Sulfate 325mg tab was started by the Dr and the patient confirmed he started taking it. He states he is still taking the Lantus Solostar confirming he injects 17units at bedtime and the Insulin Lispro he confirmed he is injecting 7 units three times a day before meals. He confirmed he is still taking the Eliquis 5mg tab 1 BID. He confirmed he last took his medications yesterday.
[2024-05-23] MEDS: oxyCODONE HCl Immed Release 5 MG TABLET PO ×3 (08:51→23:24)
[2024-05-23] MEDS: Meropenem 1 GM VIAL IV ×3 (08:51→23:24)
[2024-05-23] MEDS: DAPTOmycin 600 MG in 0.9 % Sodium Chloride 50 ML 100 MG IV (11:06)
[2024-05-23] MEDS: Colchicine 0.6 MG TABLET PO (11:06)
[2024-05-23] MEDS: Gabapentin 300 MG CAPSULE PO ×3 (11:06→19:58)
[2024-05-23] MEDS: Sertraline HCL 25 MG TABLET PO (11:06)
[2024-05-23] MEDS: Empagliflozin 10 MG TABLET PO (11:06)
[2024-05-23] MEDS: Thiamine HCL 100 MG TABLET PO (11:07)
[2024-05-23] MEDS: Amiodarone HCL 200 MG TABLET PO (11:07)
[2024-05-23] MEDS: Metoprolol Succinate ER 25 MG TAB.ER.24H PO (11:07)
[2024-05-23] MEDS: Torsemide 20 MG TABLET PO (11:07)
[2024-05-23 11:16] LABS: Glucose, Whole Blood 108 mg/dL (60-115)
--- NOTE | 2024-05-23 11:43 | P.CONGS_ITS ---
<Statement entered by Jens Chatman MD - 05/24/24 16:03> I have seen and evaluated the patient and agree with history, findings, assessment and plan documented by Catherine Tan PA-c. History of Present Illness Consult details Consult date: 05/23/24 Narrative: Jr presents to the ER last night with worsening left foot pain. He was started on daptomycin and ertapenem for continuing and worsening osteomyelitis. He states the pain has now going up his whole foot and up his peña on the tibial aspect. He states he is having difficulty sleeping due to the pain. He states he did sleep last night but was given something for the pain. He has increased pain this morning. He is eating and drinking okay. He is not having any difficulty breathing or shortness of breath. Review of Systems 2 Constitutional: Constitutional: Reports as per HPI and Denies weakness ENT: Reports Normal hearing present and Denies dizziness Cardiovascular: Cardiovascular: Reports as per HPI, Denies chest pain, Denies chest pain at rest, Denies chest pain with activity, Denies dyspnea and Denies dyspnea on exertion Respiratory: Respiratory: Reports as per HPI, Denies cough, Denies dyspnea and Denies dyspnea on exertion Gastrointestinal: Gastrointestinal: Reports as per HPI, Denies abdominal pain, Denies nausea and Denies vomiting Musculoskeletal: Musculoskeletal: Denies numbness Integumentary/Breasts: Skin/Breast: Reports as per HPI, Denies erythema and Denies wounds Neurologic: Reports Normal hearing present, Denies dizziness, Denies numbness, Denies Sensory deficit (Neuro) and Denies weakness Psychiatric: Psychiatric: Reports no additional psychiatric complaints Endocrine: Endocrine: Reports no additional endocrine complaints [facility] Past Medical History Medical History Acute on chronic HFrEF (heart failure with reduced ejection fraction) History of osteomyelitis 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 Diverticulosis Tubular adenoma of colon (~2018) History of COVID-19 Nicotine dependence, cigarettes, uncomplicated Hypertensive retinopathy Microhematuria ICD (implantable cardioverter-defibrillator) in place COPD (chronic obstructive pulmonary disease) KIMANI (obstructive sleep apnea) Sleep apnea CAD (coronary artery disease) Paroxysmal atrial fibrillation (~2017) Family History Family History Father Atherosclerosis Mother Cerebral aneurysm Maternal Grandmother Unknown family medical history Mother Cerebral hemorrhage Father Coronary artery disease Surgical History Surgical History History of amputation of left great toe History of cardiac cath History of ankle surgery History of implantable cardiac defibrillator (ICD) History of colonoscopy History of heart artery stent History of cardiac radiofrequency ablation History of cardioversion History of esophagogastroduodenoscopy History of umbilical hernia History of inguinal hernia Social History Social History Household Members: None Housing: House Are you a primary career advisor to a significant other at home: No Do you presently have visiting nurse or other home services: Yes Alcohol intake: former Comment: refuses assistance OOB/high falls measures Patient Tobacco Use Status: Current everyday Tobacco user Tobacco use type: Cigarette Cigarette Packs Per Day: 1 Cigarettes Per Day: 2 Years Smoked: (current smoker - onset 14yo, 1ppd x 43yrs, 40pyh) e-Cigarette/Vaping Use: Never Used Second Hand Smoke Exposure: Yes Advance Directives Date on File: 07/09/21 service: No Current occupational status: unemployed and disabled Current occupation: rt handed Cognitive needs: No Hearing needs: No Vision needs: Yes Meds Allergies Allergy/AdvReac Type Severity Reaction Status Date / Time No Known Allergies Allergy Verified 05/22/24 14:37 [No Known Allergies*] Active Medications: Current Medications Acetaminophen (Acetaminophen 325 Mg Tablet) 975 mg PO Q6H PRN PRN Reason: Pain, Mild (Pain Scale 1-3), fever or headache Albuterol Sulfate (Albuterol Sulfate (0.083%) 2.5 Mg/3 Ml Vial.Neb) 2.5 mg INHALE Q6H PRN PRN Reason: Shortness Of Breath Or Wheezing Amiodarone HCl (Amiodarone Hcl 200 Mg Tablet) 200 mg PO DAILY [facility] Last Admin: 05/23/24 11:07 Dose: 200 mg Colchicine (Colchicine 0.6 Mg Tablet) 0.6 mg PO DAILY [facility] Last Admin: 05/23/24 11:06 Dose: 0.6 mg Empagliflozin (Empagliflozin 10 Mg Tablet) 10 mg PO DAILY [facility] Last Admin: 05/23/24 11:06 Dose: 10 mg Fluticasone/Vilanterol (Fluticasone/Vilanterol 100/25 Blst.W.Dev) 1 puff INHALE RDAILY [facility] Gabapentin (Gabapentin 300 Mg Capsule) 300 mg PO TID [facility] Last Admin: 05/23/24 11:06 Dose: 300 mg Glucose (Glucose Gel 15 Gm Gel..Gram.) 15 gm PO Q15M PRN; Protocol PRN Reason: per Hypoglycemia Standing Ord. Dextrose (D10) 250 mls @ 750 mls/hr IV Q15M PRN; Protocol PRN Reason: per Hypoglycemia Standing Ord. Insulin Glargine (Insulin Glargine,Hum.Rec.Anlog 100 Unit/Ml 10 Ml Vial) 17 unit SUBCUT BEDTIME [facility] Last Admin: 05/23/24 01:23 Dose: 17 unit Insulin Human Lispro (Insulin Lispro 100 Unit/Ml 3 Ml Vial) 0 unit SUBCUT QIDACHS [facility]; Protocol Last Admin: 05/23/24 07:31 Dose: Not Given Isosorbide Dinitrate (Isosorbide Dinitrate 5 Mg Tablet) 5 mg PO 0800,1300,1800 [facility]; Protocol Magnesium Hydroxide (Milk Of Magnesia 30 Ml Oral.Susp) 30 ml PO DAILY PRN PRN Reason: Constipation Melatonin (Melatonin 3 Mg Tablet) 6 mg PO BEDTIME PRN PRN Reason: Insomnia Melatonin (Melatonin 3 Mg Tablet) 3 mg PO BEDTIME [facility] Meropenem (Meropenem 1 Gm Vial) 1 gm IV Q8H [facility] Last Admin: 05/23/24 08:51 Dose: 1 gm Metoprolol Succinate (Metoprolol Succinate Er 25 Mg Tab.Er.24h) 25 mg PO DAILY [facility]; Protocol Last Admin: 05/23/24 11:07 Dose: 25 mg Morphine Sulfate (Morphine Sulfate 4 Mg/Ml Cartridge) 4 mg IM Q4H PRN; Protocol PRN Reason: Pain, Severe (Pain Scale 7-10) Omeprazole (Omeprazole 20 Mg Capsule.Dr) 20 mg PO DAILY@0630 [facility] Ondansetron HCl (Ondansetron Hcl 4 Mg/2 Ml Vial) 4 mg IVPUSH Q8H PRN PRN Reason: Nausea and Vomiting Oxycodone HCl (Oxycodone Hcl Immed Release 5 Mg Tablet) 5 mg PO Q4H PRN PRN Reason: Pain, Severe (Pain Scale 7-10) Last Admin: 05/23/24 08:51 Dose: 5 mg Senna (Sennosides 8.6 Mg Tablet) 17.2 mg PO BEDTIME [facility] Sertraline HCl (Sertraline Hcl 25 Mg Tablet) 25 mg PO DAILY [facility] Last Admin: 05/23/24 11:06 Dose: 25 mg Sodium Chloride (0.9 % Sodium Chloride Flush 3 Ml Syringe) 3 ml IVFLUSH QSHIFT [facility] Last Admin: 05/23/24 09:00 Dose: 3 ml Thiamine HCl (Thiamine Hcl 100 Mg Tablet) 100 mg PO DAILY [facility] Last Admin: 05/23/24 11:07 Dose: 100 mg Torsemide (Torsemide 20 Mg Tablet) 20 mg PO DAILY [facility]; Protocol Last Admin: 05/23/24 11:07 Dose: 20 mg Home Medications ?Medication ?Instructions ?Recorded ?Confirmed ?Last Taken ?Type colchicine 0.6 mg tablet 0.6 mg PO DAILY 11/18/23 05/23/24 05/22/24 History insulin glargine 100 unit/mL (3 17 unit subcut BEDTIME 11/18/23 05/23/24 05/22/24 History mL) subcutaneous pen (Lantus Solostar U-100 Insulin) insulin lispro 100 unit/mL 7 unit subcut TIDAC 11/18/23 05/23/24 05/22/24 History subcutaneous solution albuterol sulfate 2.5 mg/3 mL 2.5 mg inhalation Q6H PRN 03/23/24 05/23/24 Unknown History (0.083 %) solution for nebulization Shortness Of Breath Or Wheezing apixaban 5 mg tablet (Eliquis) 5 mg PO BID 03/23/24 05/23/24 05/22/24 History empagliflozin 10 mg tablet 10 mg PO DAILY 03/23/24 05/23/24 05/22/24 History (Jardiance) fluticasone propionate 45 2 puff inhalation BID 03/23/24 05/23/24 05/22/24 History mcg-salmeterol 21 mcg/actuation HFA inhaler (Advair HFA) sennosides 8.6 mg tablet (senna) 17.2 mg PO BEDTIME 03/23/24 05/23/24 05/22/24 History Physical Exam 2 Vital Signs: Vital Signs: Last Vital Signs Temp 96.9 F 05/23/24 11:38 Pulse 73 05/23/24 11:38 Resp 18 05/23/24 11:38 BP 112/68 05/23/24 11:38 Pulse Ox 90 L 05/23/24 11:38 O2 Del Method CPAP 05/23/24 11:38 BMI result Body Mass Index 30.5 Const: General: comfortable and no acute distress O rientation/consciousness: patient oriented x3 HEENT: Ears: hearing grossly normal bilaterally Resp: Effort & Inspection: normal respiratory effort and able to speak in complete sentences Auscultation: clear to auscultation bilaterally Cardio: Rate: regular rate Rhythm: regular rhythm Heart sounds: S1 normal heart sound present and S2 normal heart sound present Bruits: no abdominal aortic bruits, no carotid bruits, no femoral bruits and no renal bruits GI: Palpation (GI): No Abdominal aortic bruit present Neuro: General: patient oriented x3 Cranial nerves: Yes Normal hearing present Sensory Exam: No Sensory deficit (Neuro) Extrem: Other: Refer to pictures from the ER. Wound care nurse doing dressing changes later. Results Labs 05/23/24 05:35 05/23/24 05:35 Labs: Abnormal lab results 05/22/24 05/22/24 05/23/24 Range/Units 14:52 19:10 01:17 WBC 11.5 H (4.8-10.8) X10*3/uL RBC 4.08 L (4.60-5.80) X10*6/uL Hgb 9.7 L (14.0-18.0) g/dl Hct 32.7 L (42.0-52.0) % MCV (80.0-98.0) fL MCH 23.8 L (27.0-33.0) pg MCHC 29.7 L (31.0-36.0) g/dl RDW 24.6 H (11.0-16.0) % Immature Gran % (Auto) 0.5 H (0.0-0.4) % Lymph % (Auto) 17.6 L (20-40) % Eos % (Auto) 5.2 H (0-4) % Eos # (Auto) 0.6 H (0.0-0.4) X10*3/uL Abs Immat Gran (auto) 0.06 H (0.00-0.03) X10*3/uL ESR 36 H (0-15) MM/HR Chloride 95 L (96-108) mmol/L Carbon Dioxide 33 H (22-29) mmol/L BUN 34 H (9-16) mg/dL Creatinine 1.42 H (0.5-1.4) mg/dL POC Glucose 128 H (60-115) mg/dL Random Glucose 177 H (60-115) mg/dL Lactic Acid 2.2 H* (0.5-2.0) mmol/L Alkaline Phosphatase 130 H (39-117) U/L C-Reactive Protein 9.46 H (< or = 0.50) mg/dL B-Natriuretic Peptide 3569 H (<100) pg/mL 05/23/24 Range/Units 05:35 WBC 12.3 H (4.8-10.8) X10*3/uL RBC 3.99 L (4.60-5.80) X10*6/uL Hgb 9.5 L (14.0-18.0) g/dl Hct 31.9 L (42.0-52.0) % MCV 79.9 L (80.0-98.0) fL MCH 23.8 L (27.0-33.0) pg MCHC 29.8 L (31.0-36.0) g/dl RDW 24.6 H (11.0-16.0) % Immature Gran % (Auto) 0.6 H (0.0-0.4) % Lymph % (Auto) 18.4 L (20-40) % Eos % (Auto) 4.6 H (0-4) % Eos # (Auto) 0.6 H (0.0-0.4) X10*3/uL Abs Immat Gran (auto) 0.07 H (0.00-0.03) X10*3/uL ESR (0-15) MM/HR Chloride (96-108) mmol/L Carbon Dioxide (22-29) mmol/L BUN 33 H (9-16) mg/dL Creatinine 1.43 H (0.5-1.4) mg/dL POC Glucose (60-115) mg/dL Random Glucose 132 H (60-115) mg/dL Lactic Acid (0.5-2.0) mmol/L Alkaline Phosphatase (39-117) U/L C-Reactive Protein (< or = 0.50) mg/dL B-Natriuretic Peptide (<100) pg/mL Short CBC 05/22/24 05/23/24 Range/Units 14:52 05:35 WBC 11.5 H 12.3 H (4.8-10.8) X10*3/uL Hgb 9.7 L 9.5 L (14.0-18.0) g/dl Hct 32.7 L 31.9 L (42.0-52.0) % Plt Count 357 D 353 (160-400) X10*3/uL BMP 05/22/24 05/23/24 14:52 05:35 Sodium 138 136 Potassium 3.7 D 4.6 D Chloride 95 L 96 Carbon Dioxide 33 H 27 BUN 34 H 33 H Creatinine 1.42 H 1.43 H Calcium 9.1 8.9 Liver Function 05/22/24 Range/Units 14:52 Total Bilirubin 0.6 (0.0-1.0) mg/dL AST 25 (5-37) U/L ALT 29 (0-40) U/L Alkaline Phosphatase 130 H (39-117) U/L Albumin 3.5 (3.5-5.0) g/dL All other labs normal. Assessment and Plan (1) Osteomyelitis of second toe of left foot: Status: Acute Plan Jr presented to the ER last night with worsening left foot pain. He was found to have a worsening osteo on imaging. He has been having difficulty with pain management, he states he did sleep last night after getting some pain medication. We discussed at last admission that we will follow up with him outpatient; however, due to the worsening pain we will need to re-evaluate. I have discussed this with Dr. Cates. I will also discuss this with Dr. Guillaume when he returns tomorrow. The patient is aware that he will likely need an amputation of the foot, and we discussed that this morning. He is in agreement to that plan. We discussed continuing with the IV antibiotics and pain management with the hospitalist. Thank you for the consult. There are any questions or concerns, please do not hesitate to reach out to us. Procedures Date of Service Date of Service: 05/23/24
--- NOTE | 2024-05-23 11:54 | HO.WOUND ---
Wound Consult: Initial 58yr old Male [place] [facility] [place] - See progress notes and H&P for detailed history.? Wound consult placed for Left foot wound.? Patient agreeable to assessment and photo documentation.? Previous admission patient has been followed by Vascular Surgery. D/C plan was to follow up outpt with Dr. Chatman and plan for future surgical intervention. However patient returns to ED per his PCP instruction after 5 days post d/c. Todays assessment the plantar and the webspace continue to communicate. There was a bone fragments that was flushed out of the wound bed when irrigated. Wound remains concerning, per direct care nurse plan for amputation this admission. The dorsal side of the 2nd toe is noted for scant yellow slough. The new wound appears to the left lateral foot - there has been dry stable scab in times place to this location. However todays assessment patient reports significant pain and tenderness, there is no open tissue but suspect it will open. Dark purple with adherent scab noted - See photo. Plantar Left Web space Left 2nd toe anterior Left Lateral Foot Left Plantar 2nd webspace that communicates to plantar wound Etiology: ??Diabetic Wounds Measurements: see charting for detailed measurement Wound bed: Bone exposed to plantar with rough fragments removed with irrigation. this wound communicated to the webspace with significantly macerated tissue. The anterior toe is stable minimal yellow slough. Drainage / Odor: [place] yellow drainage noted on dressing when removed - mild odor noted Edges: ? nonadherent [place] wound: swelling and pink erythema noted no induration no fluctuance noted Pain: reports neuropathy but this admision reports significant pain to plantar area and lateral area Goals of Treatment: ? Gauze strip packing defer to surgery and vascular team Recommendations: 1. Maintain blood glucose levels per Providers order. 2. Left foot sites - Off Load Pressure - Cleanse and irrigate with NS, Pat dry.? Apply barrier to periwound, lightly pack with Gauze Strip packing, be sure to leave a wick to easy removal.? Cover with dry gauze, gauze wrap.? Change Daily. Re-consult wound care Nurse for wound deterioration or wound changes.
--- NOTE | 2024-05-23 11:55 | P.PNIM_ITS ---
Subjective Subjective Date of Service: 05/23/24 Interval History: severe L foot pain no fever or chills Review of Systems Review of Systems: Yes all other systems are reviewed and are negative Physical Exam 2 Vital Signs: Vital Signs: Last Vital Signs Temp 96.9 F 05/23/24 11:38 Pulse 73 05/23/24 11:38 Resp 18 05/23/24 11:38 BP 112/68 05/23/24 11:38 Pulse Ox 90 L 05/23/24 11:38 O2 Del Method CPAP 05/23/24 11:38 BMI result Body Mass Index 30.5 Gen: in no acute distress HEENT: sclera anicteric, moist mucus membranes Neck: supple Lungs: clear to auscultation bilaterally Heart: regular rate and rhythm, no murmurs Abd: soft, non-tender, non-distended Ext: no edema Skin: warm/well-perfused, L foot s/p 1st toe amputation, plantar ulcer under 2nd metatarsal head, dorsal ulcer on 2nd toe Neuro: alert and oriented x3, no focal findings Psych: appropriate affect Objective Data Active Medications Acetaminophen (Acetaminophen 325 Mg Tablet) 975 mg PO Q6H PRN PRN Reason: Pain, Mild (Pain Scale 1-3), fever or headache Albuterol Sulfate (Albuterol Sulfate (0.083%) 2.5 Mg/3 Ml Vial.Neb) 2.5 mg INHALE Q6H PRN PRN Reason: Shortness Of Breath Or Wheezing Amiodarone HCl (Amiodarone Hcl 200 Mg Tablet) 200 mg PO DAILY [facility] Last Admin: 05/23/24 11:07 Dose: 200 mg Documented By: MYCHAL Colchicine (Colchicine 0.6 Mg Tablet) 0.6 mg PO DAILY [facility] Last Admin: 05/23/24 11:06 Dose: 0.6 mg Documented By: MYCHAL Empagliflozin (Empagliflozin 10 Mg Tablet) 10 mg PO DAILY [facility] Last Admin: 05/23/24 11:06 Dose: 10 mg Documented By: MYCHAL Fluticasone/Vilanterol (Fluticasone/Vilanterol 100/25 Blst.W.Dev) 1 puff INHALE RDAILY [facility] Gabapentin (Gabapentin 300 Mg Capsule) 300 mg PO TID [facility] Last Admin: 05/23/24 11:06 Dose: 300 mg Documented By: MYCHAL Glucose (Glucose Gel 15 Gm Gel..Gram.) 15 gm PO Q15M PRN; Protocol PRN Reason: per Hypoglycemia Standing Ord. Dextrose (D10) 250 mls @ 750 mls/hr IV Q15M PRN; Protocol PRN Reason: per Hypoglycemia Standing Ord. Insulin Glargine (Insulin Glargine,Hum.Rec.Anlog 100 Unit/Ml 10 Ml Vial) 17 unit SUBCUT BEDTIME [facility] Last Admin: 05/23/24 01:23 Dose: 17 unit Documented By: MICHAEL Comments: new admit Insulin Human Lispro (Insulin Lispro 100 Unit/Ml 3 Ml Vial) 0 unit SUBCUT QIDACHS [facility]; Protocol Last Admin: 05/23/24 07:31 Dose: Not Given Documented By: MYCHAL Non-Admin Reason: No Insulin Coverage Isosorbide Dinitrate (Isosorbide Dinitrate 5 Mg Tablet) 5 mg PO 0800,1300,1800 [facility]; Protocol Magnesium Hydroxide (Milk Of Magnesia 30 Ml Oral.Susp) 30 ml PO DAILY PRN PRN Reason: Constipation Melatonin (Melatonin 3 Mg Tablet) 6 mg PO BEDTIME PRN PRN Reason: Insomnia Melatonin (Melatonin 3 Mg Tablet) 3 mg PO BEDTIME [facility] Meropenem (Meropenem 1 Gm Vial) 1 gm IV Q8H [facility] Last Admin: 05/23/24 08:51 Dose: 1 gm Documented By: MYCHAL Metoprolol Succinate (Metoprolol Succinate Er 25 Mg Tab.Er.24h) 25 mg PO DAILY [facility]; Protocol Last Admin: 05/23/24 11:07 Dose: 25 mg Documented By: MYCHAL Morphine Sulfate (Morphine Sulfate 4 Mg/Ml Cartridge) 4 mg IM Q4H PRN; Protocol PRN Reason: Pain, Severe (Pain Scale 7-10) Omeprazole (Omeprazole 20 Mg Capsule.Dr) 20 mg PO DAILY@0630 [facility] Ondansetron HCl (Ondansetron Hcl 4 Mg/2 Ml Vial) 4 mg IVPUSH Q8H PRN PRN Reason: Nausea and Vomiting Oxycodone HCl (Oxycodone Hcl Immed Release 5 Mg Tablet) 5 mg PO Q4H PRN PRN Reason: Pain, Severe (Pain Scale 7-10) Last Admin: 05/23/24 08:51 Dose: 5 mg Documented By: MYCHAL Senna (Sennosides 8.6 Mg Tablet) 17.2 mg PO BEDTIME [facility] Sertraline HCl (Sertraline Hcl 25 Mg Tablet) 25 mg PO DAILY [facility] Last Admin: 05/23/24 11:06 Dose: 25 mg Documented By: MYCHAL Sodium Chloride (0.9 % Sodium Chloride Flush 3 Ml Syringe) 3 ml IVFLUSH QSHIFT [facility] Last Admin: 05/23/24 09:00 Dose: 3 ml Documented By: MYCHAL Thiamine HCl (Thiamine Hcl 100 Mg Tablet) 100 mg PO DAILY [facility] Last Admin: 05/23/24 11:07 Dose: 100 mg Documented By: MYCHAL Torsemide (Torsemide 20 Mg Tablet) 20 mg PO DAILY [facility]; Protocol Last Admin: 05/23/24 11:07 Dose: 20 mg Documented By: MYCHAL Labs 05/23/24 05:35 05/23/24 05:35 Labs: Laboratory Results - last 24 hr 05/22/24 05/22/24 05/23/24 14:52 19:10 01:17 MCV 80.1 MCH 23.8 L MCHC 29.7 L RDW 24.6 H Plt Count 357 D MPV 10.2 Immature Gran % (Auto) 0.5 H Neut % (Auto) 67.7 Lymph % (Auto) 17.6 L [place] % (Auto) 7.9 Eos % (Auto) 5.2 H Baso % (Auto) 1.1 Lymph # (Auto) 2.0 [place] # (Auto) 0.9 Eos # (Auto) 0.6 H Baso # (Auto) 0.1 Abs Immat Gran (auto) 0.06 H Absolute Neuts (auto) 7.8 Absolute Nucleated RBC 0.000 Nucleated RBC % (auto) 0.0 ESR 36 H Anion Gap 14 Estim Creat Clear Calc 70.8 Estimated GFR 51 POC Glucose 128 H Random Glucose 177 H Lactic Acid 2.2 H* Lactic Acid F/U @ 2Hr 1.3 Calcium 9.1 Magnesium 2.5 Total Bilirubin 0.6 AST 25 ALT 29 Alkaline Phosphatase 130 H C-Reactive Protein 9.46 H B-Natriuretic Peptide 3569 H Total Protein 7.1 Albumin 3.5 05/23/24 05/23/24 05/23/24 05:35 07:15 11:13 MCV 79.9 L MCH 23.8 L MCHC 29.8 L RDW 24.6 H Plt Count 353 MPV 10.0 Immature Gran % (Auto) 0.6 H Neut % (Auto) 67.4 Lymph % (Auto) 18.4 L [place] % (Auto) 7.7 Eos % (Auto) 4.6 H Baso % (Auto) 1.3 Lymph # (Auto) 2.3 [place] # (Auto) 1.0 Eos # (Auto) 0.6 H Baso # (Auto) 0.2 Abs Immat Gran (auto) 0.07 H Absolute Neuts (auto) 8.3 Absolute Nucleated RBC 0.000 Nucleated RBC % (auto) 0.0 ESR Anion Gap 18 Estim Creat Clear Calc 65.9 Estimated GFR 50 POC Glucose 112 108 Random Glucose 132 H Lactic Acid Lactic Acid F/U @ 2Hr Calcium 8.9 Magnesium Total Bilirubin AST ALT Alkaline Phosphatase C-Reactive Protein B-Natriuretic Peptide Total Protein Albumin Assessment and Plan (1) Osteomyelitis of second toe of left foot: Status: Acute Plan d2 for 58yo M with HFrEF, COPD, pAF on apixaban, CAD s/p PCI, KIMANI on CPAP, DM2, PAD recently admitted here 05/03-05/17/24 for CHF exacerbation during which he was diuresed 28L and also completed IV ertapenem and daptomycin for treatment of diabetic foot infection with osteomyelitis. He returns with worsening foot pain and was admitted for persistent osteomyelitis DM osteomyelitis and cellulitis - d2 daptomycin + ertapenem, ID consult pending, Surgery consulted and will need amputation, Cardiology consult for pre-op evaluation chronic HFrEF - continue metoprolol succinate, isosorbide dinitrate, empagliflozin, valsartan, and torsemide; Cardiology consult pending CAD PAD - hold ASA pAF - continue amiodarone + metoprolol succinate; hold apixaban KIMANI - CPAP at night COPD - Breo, prn albuterol DM2 - basal-bolus insulin peripheral neuropathy - continue gabapentin mood disorder - sertraline VTE ppx - SCDs, apixaban on hold for OR In my clinical judgment, the patient requires continued inpatient hospitalization for the following reasons: operative intervention, IV ABX Quality Stroke Does the patient have a stroke diagnosis?: No VTE Prior VTE?: No VTE Risk Level:: Medical - moderate - high VTE Device Contraindication: Treatment Not Indicated VTE Drug Contraindication: Treatment Not Indicated
--- NOTE | 2024-05-23 12:14 | MHC.CM.PN ---
IMM 05/23. Pt lives alone at home, is active with [facility] [employer], [employer], and goes to the [facility] wound clinic. Pt uses a CPAP machine through [facility] and has a cane. HCP on file and verified. 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 PCP: Phi MANDEL
[2024-05-23] MEDS: Morphine Sulfate 4 MG/ML CARTRIDGE IVPUSH ×2 (12:59→19:58)
[2024-05-23] MEDS: Isosorbide Dinitrate 5 MG TABLET PO ×2 (13:00→17:12)
[2024-05-23 16:15] LABS: Glucose, Whole Blood 110 mg/dL (60-115)
[2024-05-23] MEDS: ondansetron HCL 4 MG/2 ML VIAL IVPUSH (17:14)
[2024-05-23 19:55] LABS: Glucose, Whole Blood 84 mg/dL (60-115)
[2024-05-23] MEDS: Sennosides 8.6 MG TABLET 17.2 MG PO (19:58)
[2024-05-23] MEDS: Melatonin 3 MG TABLET PO (19:58)
[2024-05-23] MEDS: Fluticasone/Vilanterol 100/25 BLST.W.DEV 1 PUFF INHALE (20:39)
--- NOTE | 2024-05-24 | ECG_ITS ---
Test Reason : qtc Blood Pressure : / mmHG Vent. Rate : 065 BPM Atrial Rate : 065 BPM P-R Int : 236 ms QRS Dur : 126 ms QT Int : 480 ms P-R-T Axes : 069 -30 082 degrees QTc Int : 499 ms Sinus rhythm with 1st degree A-V block with occasional Premature ventricular complexes Left axis deviation Non-specific intra-ventricular conduction block Lateral infarct (cited on or before 19-APR-2024) Abnormal ECG When compared with ECG of 03-MAY-2024 17:08, Premature ventricular complexes are now Present Questionable change in initial forces of Lateral leads Nonspecific T wave abnormality no longer evident in Inferior leads Referred By: Franky Rodriguez Electronically Signed By:DIAN WORRELL
[2024-05-24] MEDS: Morphine Sulfate 4 MG/ML CARTRIDGE IVPUSH ×4 (03:24→23:28)
[2024-05-24 03:41] VITALS: BP 100/64; PULSE 67; RESP 18; TEMP 36.4; O2SAT 93
--- NOTE | 2024-05-24 03:51 | PC.NURSE ---
05/23/241999 poc-84 lantus insulin held.
--- NOTE | 2024-05-24 03:52 | PC.NURSE ---
0350 pt's own glucose reader alarming with a blood sugar of 62 2 OJ and crackers given.
[2024-05-24] MEDS: Omeprazole 20 MG CAPSULE.DR PO (05:26)
--- NOTE | 2024-05-24 05:29 | PC.NURSE ---
Pt's blood sugar 87.
[2024-05-24 07:27] VITALS: BP 97/65; PULSE 65; RESP 16; TEMP 36.6; O2SAT 91
[2024-05-24 07:41] VITALS: BP 97/55; PULSE 66; RESP 16; TEMP 36.6; O2SAT 91
[2024-05-24 07:54] LABS: Glucose, Whole Blood 93 mg/dL (60-115)
[2024-05-24] MEDS: Meropenem 1 GM VIAL IV ×3 (09:00→23:31)
[2024-05-24] MEDS: Colchicine 0.6 MG TABLET PO (09:06)
[2024-05-24] MEDS: Gabapentin 300 MG CAPSULE PO ×3 (09:06→20:01)
[2024-05-24] MEDS: Torsemide 20 MG TABLET PO (09:07)
[2024-05-24] MEDS: Sertraline HCL 25 MG TABLET PO (09:07)
[2024-05-24] MEDS: Empagliflozin 10 MG TABLET PO (09:07)
[2024-05-24] MEDS: Thiamine HCL 100 MG TABLET PO (09:07)
[2024-05-24] MEDS: Amiodarone HCL 200 MG TABLET PO (09:07)
[2024-05-24] MEDS: oxyCODONE HCl Immed Release 5 MG TABLET PO ×3 (09:17→23:44)
[2024-05-24] MEDS: Metoprolol Succinate ER 25 MG TAB.ER.24H PO (09:18)
--- NOTE | 2024-05-24 09:43 | PM.CNCAR ---
History of Present Illness History of Present Illness Date of Service: 05/24/24 Chief complaint: Left 2nd metatsrsal osteomyelitis Narrative: This is a cardiology consultation regarding preoperative risk stratification for possible foot amputation. Multiple previous hospitalizations for cardiac issues. He has a history of severe cardiomyopathy, atrial fibrillation and also has an ICD in place. Most recently, he was seen by Dr. Andrew few days back as an inpatient for congestive heart failure. Per his note, it seems he was diuresed almost 28 L. Currently, he states that he is actually much better than before. He is not having any symptoms like chest pain or shortness of breath or in fact anything cardiac sounding. Review of Systems Review of Systems: Yes all other systems are reviewed and are negative Constitutional: Constitutional: Reports as per HPI and Reports no additional constitutional complaints Eyes: Eyes: Reports as per HPI and Denies no additional eye complaints ENT: Denies system reviewed and no additional complaints, except as documented and Reports as per HPI Cardiovascular: Cardiovascular: Reports as per HPI, Reports no additional cardiovascular complaints, Denies acrocyanosis, Denies cool extremities, Denies chest pain, Denies leg edema, Denies lightheadedness, Denies palpitations and Denies dyspnea Respiratory: Respiratory: Reports as per HPI, Denies no additional respiratory complaints and Denies dyspnea Gastrointestinal: Gastrointestinal: Reports as per HPI and Denies no additional gastrointestinal complaints Genitourinary: Genitourinary: Reports no additional male genitourinary complaints and Reports as per HPI Musculoskeletal: Musculoskeletal: Reports no additional musculoskeletal complaints and Reports as per HPI Integumentary/Breasts: Skin/Breast: Reports system reviewed and no additional complaints, except as docu Neurologic: Reports system reviewed and no additional complaints, except as documented and Reports as per HPI Psychiatric: Psychiatric: Reports no additional psychiatric complaints and Reports as per HPI Endocrine: Endocrine: Reports no additional endocrine complaints, Reports as per HPI and Denies palpitations Hematologic/Lymphatic: Hematologic/Lymphatic: Reports no additional hematologic/lymphatic complaints and Reports as per HPI Allergic/Immunologic: Allergic/Immunologic: Reports no additional allergic/immunologic complaints and Reports as per HPI PMF Past Medical History Medical History Acute on chronic HFrEF (heart failure with reduced ejection fraction) History of osteomyelitis 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 Diverticulosis Tubular adenoma of colon (~2018) History of COVID-19 Nicotine dependence, cigarettes, uncomplicated Hypertensive retinopathy Microhematuria ICD (implantable cardioverter-defibrillator) in place COPD (chronic obstructive pulmonary disease) KIMANI (obstructive sleep apnea) Sleep apnea CAD (coronary artery disease) Paroxysmal atrial fibrillation (~2016) Family History Family History Father Atherosclerosis Mother Cerebral aneurysm Maternal Grandmother Unknown family medical history Mother Cerebral hemorrhage Father Coronary artery disease Surgical History Surgical History History of amputation of left great toe History of cardiac cath History of ankle surgery History of implantable cardiac defibrillator (ICD) History of colonoscopy History of heart artery stent History of cardiac radiofrequency ablation History of cardioversion History of esophagogastroduodenoscopy History of umbilical hernia History of inguinal hernia Social History Social History Household Members: None Housing: House Are you a primary post acute care nurse practitioner to a significant other at home: No Do you presently have visiting nurse or other home services: Yes Alcohol intake: former Comment: refuses assistance OOB/high falls measures Patient Tobacco Use Status: Current everyday Tobacco user Tobacco use type: Cigarette Cigarette Packs Per Day: 1 Cigarettes Per Day: 2 Years Smoked: (current smoker - onset 14yo, 1ppd x 43yrs, 40pyh) e-Cigarette/Vaping Use: Never Used Second Hand Smoke Exposure: Yes Advance Directives Date on File: 07/09/21 service: No Current occupational status: unemployed and disabled Current occupation: rt handed Cognitive needs: No Hearing needs: No Vision needs: Yes Meds Allergies Allergy/AdvReac Type Severity Reaction Status Date / Time No Known Allergies Allergy Verified 05/22/24 14:37 [No Known Allergies*] Active Medications: Current Medications Acetaminophen (Acetaminophen 325 Mg Tablet) 975 mg PO Q6H PRN PRN Reason: Pain, Mild (Pain Scale 1-3), fever or headache Albuterol Sulfate (Albuterol Sulfate (0.083%) 2.5 Mg/3 Ml Vial.Neb) 2.5 mg INHALE Q6H PRN PRN Reason: Shortness Of Breath Or Wheezing Amiodarone HCl (Amiodarone Hcl 200 Mg Tablet) 200 mg PO DAILY [facility] Last Admin: 05/24/24 09:07 Dose: 200 mg Colchicine (Colchicine 0.6 Mg Tablet) 0.6 mg PO DAILY [facility] Last Admin: 05/24/24 09:06 Dose: 0.6 mg Empagliflozin (Empagliflozin 10 Mg Tablet) 10 mg PO DAILY [facility] Last Admin: 05/24/24 09:07 Dose: 10 mg Fluticasone/Vilanterol (Fluticasone/Vilanterol 100/25 Blst.W.Dev) 1 puff INHALE RDAILY [facility] Last Admin: 05/24/24 07:43 Dose: Not Given Gabapentin (Gabapentin 300 Mg Capsule) 300 mg PO TID [facility] Last Admin: 05/24/24 09:06 Dose: 300 mg Glucose (Glucose Gel 15 Gm Gel..Gram.) 15 gm PO Q15M PRN; Protocol PRN Reason: per Hypoglycemia Standing Ord. Dextrose (D10) 250 mls @ 750 mls/hr IV Q15M PRN; Protocol PRN Reason: per Hypoglycemia Standing Ord. Insulin Glargine (Insulin Glargine,Hum.Rec.Anlog 100 Unit/Ml 10 Ml Vial) 17 unit SUBCUT BEDTIME [facility] Last Admin: 05/23/24 20:04 Dose: Not Given Insulin Human Lispro (Insulin Lispro 100 Unit/Ml 3 Ml Vial) 0 unit SUBCUT QIDACHS [facility]; Protocol Last Admin: 05/24/24 07:44 Dose: Not Given Isosorbide Dinitrate (Isosorbide Dinitrate 5 Mg Tablet) 5 mg PO 0800,1300,1800 [facility]; Protocol Last Admin: 05/24/24 09:14 Dose: Not Given Magnesium Hydroxide (Milk Of Magnesia 30 Ml Oral.Susp) 30 ml PO DAILY PRN PRN Reason: Constipation Melatonin (Melatonin 3 Mg Tablet) 6 mg PO BEDTIME PRN PRN Reason: Insomnia Melatonin (Melatonin 3 Mg Tablet) 3 mg PO BEDTIME [facility] Last Admin: 05/23/24 19:58 Dose: 3 mg Meropenem (Meropenem 1 Gm Vial) 1 gm IV Q8H [facility] Last Admin: 05/24/24 09:00 Dose: 1 gm Metoprolol Succinate (Metoprolol Succinate Er 25 Mg Tab.Er.24h) 25 mg PO DAILY [facility]; Protocol Last Admin: 05/24/24 09:18 Dose: 25 mg Morphine Sulfate (Morphine Sulfate 4 Mg/Ml Cartridge) 4 mg IVPUSH Q4H PRN; Protocol PRN Reason: Pain, Severe (Pain Scale 7-10) Last Admin: 05/24/24 03:24 Dose: 4 mg Omeprazole (Omeprazole 20 Mg Capsule.Dr) 20 mg PO DAILY@0630 [facility] Last Admin: 05/24/24 05:26 Dose: 20 mg Ondansetron HCl (Ondansetron Hcl 4 Mg/2 Ml Vial) 4 mg IVPUSH Q8H PRN PRN Reason: Nausea and Vomiting Last Admin: 05/23/24 17:14 Dose: 4 mg Oxycodone HCl (Oxycodone Hcl Immed Release 5 Mg Tablet) 5 mg PO Q4H PRN PRN Reason: Pain, Moderate(Pain Scale 4-6) Last Admin: 05/24/24 09:17 Dose: 5 mg Senna (Sennosides 8.6 Mg Tablet) 17.2 mg PO BEDTIME [facility] Last Admin: 05/23/24 19:58 Dose: 17.2 mg Sertraline HCl (Sertraline Hcl 25 Mg Tablet) 25 mg PO DAILY [facility] Last Admin: 05/24/24 09:07 Dose: 25 mg Sodium Chloride (0.9 % Sodium Chloride Flush 3 Ml Syringe) [facility] Admin: 05/24/24 09:14 Dose: Not Given Thiamine HCl (Thiamine Hcl 100 Mg Tablet) 100 mg PO DAILY [facility] Last Admin: 05/24/24 09:07 Dose: 100 mg Torsemide (Torsemide 20 Mg Tablet) 20 mg PO DAILY [facility]; Protocol Last Admin: 05/24/24 09:07 Dose: 20 mg Home Medications ?Medication ?Instructions ?Recorded ?Confirmed ?Last Taken ?Type colchicine 0.6 mg tablet 0.6 mg PO DAILY 11/18/23 05/23/24 05/22/24 History insulin glargine 100 unit/mL (3 17 unit subcut BEDTIME 11/18/23 05/23/24 05/22/24 History mL) subcutaneous pen (Lantus Solostar U-100 Insulin) insulin lispro 100 unit/mL 7 unit subcut TIDAC 11/18/23 05/23/24 05/22/24 History subcutaneous solution albuterol sulfate 2.5 mg/3 mL 2.5 mg inhalation Q6H PRN 03/23/24 05/23/24 Unknown History (0.083 %) solution for nebulization Shortness Of Breath Or Wheezing apixaban 5 mg tablet (Eliquis) 5 mg PO BID 03/23/24 05/23/24 05/22/24 History empagliflozin 10 mg tablet 10 mg PO DAILY 03/23/24 05/23/24 05/22/24 History (Jardiance) fluticasone propionate 45 2 puff inhalation BID 03/23/24 05/23/24 05/22/24 History mcg-salmeterol 21 mcg/actuation HFA inhaler (Advair HFA) sennosides 8.6 mg tablet (senna) 17.2 mg PO BEDTIME 03/23/24 05/23/24 05/22/24 History Physical Exam Vital Signs: Vital Signs: Last Vital Signs Temp 97.9 F 05/24/24 07:41 Pulse 66 05/24/24 07:41 Resp 16 05/24/24 07:41 BP 97/55 L 05/24/24 07:41 Pulse Ox 91 L 05/24/24 07:41 O2 Del Method Room Air 05/24/24 07:41 BMI result Body Mass Index 30.5 Const: General: comfortable and no acute distress Orientation/consciousness: patient oriented x3 HEENT: Other: Unremarkable Head: Yes normal to inspection Neck: Neck: Yes normal visual inspection Chest: Chest palpation & inspection: normal inspection of the chest Resp: Auscultation: clear to auscultation bilaterally Cardio: Palpation: normal PMI Heart sounds: S1 normal heart sound present, S2 normal heart sound present, no gallops, no murmurs and no rubs GI: Palpation (GI): Soft to palpation Back/Spine/Pelvis: Other: unremarkable Skin: General skin exam: no rashes or lesions noted Neuro: General: patient oriented x3 Extrem: General: Yes normal to inspection Psych: Mental Status: mental status grossly normal Objective Labs and Meds 05/23/24 05:35 05/23/24 05:35 Lab results: Laboratory Results - last 24 hr 05/23/24 05/23/24 05/23/24 11:13 16:11 19:50 POC Glucose 108 110 84 05/24/24 07:25 POC Glucose 93 Assessment and Plan (1) Preoperative cardiovascular examination: Status: Acute (2) Paroxysmal atrial fibrillation: Status: Acute (3) Heart failure with reduced ejection fraction: Status: Acute (4) Nicotine dependence, cigarettes, uncomplicated: Status: Acute (5) CAD (coronary artery disease): Status: Acute Plan Per hospital visits as well as office notes, many comorbidities including paroxysmal atrial fibrillation, coronary disease, diffuse vascular disease, continued smoking, cardiomyopathy, congestive heart failure with recurrent exacerbations, ICD placement. Per surgical note, osteomyelitis of 2nd toe of left foot requiring possible amputation. Obtain EKG. In the most recent echocardiogram, LVEF is 50-20%. Moderate pulmonary hypertension. In his labs, cardiac BNP is again going up which may indicate that he may go into heart failure in the future. Overall, high cardiac risk for any surgery. May need to switch to IV diuretics at the earliest evidence of fluid overload or preemptively give him a couple of doses. Discussed with Dr. Rodriguez. Procedures Date of Service Date of Service: 05/24/24
--- NOTE | 2024-05-24 11:05 | P.PNVS_ITS ---
Subjective Subjective Date of Service: 05/24/24 Interval history: Jr is doing well this morning. He is walking a little, on his heel. He is eating and drinking well. He is sleeping well. He continues to endorse significant pain in the foot and peña. Physical Exam Vital Signs: Vital Signs: Last Vital Signs Temp 97.9 F 05/24/24 07:41 Pulse 66 05/24/24 07:41 Resp 16 05/24/24 07:41 BP 97/55 L 05/24/24 07:41 Pulse Ox 91 L 05/24/24 07:41 O2 Del Method Room Air 05/24/24 07:41 BMI result Body Mass Index 30.5 Const: General: comfortable and no acute distress Orientation/consciousness: patient oriented x3 HEENT: Ears: hearing grossly normal bilaterally Resp: Effort & Inspection: normal respiratory effort and able to speak in complete sentences Auscultation: clear to auscultation bilaterally Cardio: Rate: regular rate Rhythm: regular rhythm Heart sounds: S1 no rmal heart sound present and S2 normal heart sound present Bruits: no abdominal aortic bruits, no carotid bruits, no femoral bruits and no renal bruits GI: Palpation (GI): No Abdominal aortic bruit present Neuro: General: patient oriented x3 Cranial nerves: Yes CN's II-XII intact bilaterally Extrem: Other: Foot wrapped up, not taken down this morning. Progress Note: A&P Assessment and plan (1) Osteomyelitis: Status: Acute Assessment and Plan: Jr remains stable. I will discuss with Dr Chatman later today about possible surgical intervention for Jr, the pt is in agreement to this plan and we had multiple discussions. We will continue with pain mgte and IV Abx. We will continue with the current wound care dressing changes. We will continue to monitor. If there are any questions or concerns, please do not hesitate to reach out to us. Time Spent With Patient Time: Total time managing care of this patient today __25__ minutes. Procedures Date of Service Date of Service: 05/24/24 Quality Stroke Does the patient have a stroke diagnosis?: No VTE Prior VTE?: No VTE Risk Level:: Medical - moderate - high VTE Device Contraindication: Treatment Not Indicated VTE Drug Contraindication: Treatment Not Indicated
--- NOTE | 2024-05-24 11:34 | MHC.CM.PN ---
EMR REVIEWED AND PER MD ROUNDS, PT IS NOT MEDICALLY CLEARED FOR DC. PT WILL NEED CARDIAC CONSULT/EVAL BEFORE SURGICAL INTERVENTION/BKA. SURGERY FOLLOWING. CM WILL CONTINUE TO FOLLOW FOR PLAN.
[2024-05-24 11:39] LABS: Glucose, Whole Blood 119 mg/dL (60-115)
--- NOTE | 2024-05-24 14:28 | HO.PM.IMPN ---
Subjective Subjective Date of Service: 05/24/24 Interval History: c/o foot pain; no fever some leg edema; no dyspnea Review of Systems Review of Systems: Yes all other systems are reviewed and are negative Physical Exam Vital Signs: Vital Signs: Last Vital Signs Temp 97.9 F 05/24/24 07:41 Pulse 66 05/24/24 07:41 Resp 16 05/24/24 07:41 BP 97/55 L 05/24/24 07:41 Pulse Ox 91 L 05/24/24 07:41 O2 Del Method Room Air 05/24/24 07:41 BMI result Body Mass Index 30.5 Gen: in no acute distress HEENT: sclera anicteric, moist mucus membranes Neck: supple Lungs: clear to auscultation bilaterally Heart: regular rate and rhythm, no murmurs Abd: soft, non-tender, non-distended Ext: trace bilateral leg edema Skin: warm/well-perfused, L foot s/p 1st toe amputation, plantar ulcer under 2nd metatarsal head, dorsal ulcer on 2nd toe Neuro: alert and oriented x3, no focal findings Psych: appropriate affect Objective Data Active Medications Acetaminophen (Acetaminophen 325 Mg Tablet) 975 mg PO Q6H PRN PRN Reason: Pain, Mild (Pain Scale 1-3), fever or headache Albuterol Sulfate (Albuterol Sulfate (0.083%) 2.5 Mg/3 Ml Vial.Neb) 2.5 mg INHALE Q6H PRN PRN Reason: Shortness Of Breath Or Wheezing Amiodarone HCl (Amiodarone Hcl 200 Mg Tablet) 200 mg PO DAILY [facility] Last Admin: 05/24/24 09:07 Dose: 200 mg Documented By: MERON Colchicine (Colchicine 0.6 Mg Tablet) 0.6 mg PO DAILY [facility] Last Admin: 05/24/24 09:06 Dose: 0.6 mg Documented By: MERON Empagliflozin (Empagliflozin 10 Mg Tablet) 10 mg PO DAILY [facility] Last Admin: 05/24/24 09:07 Dose: 10 mg Documented By: MERON Fluticasone/Vilanterol (Fluticasone/Vilanterol 100/25 Blst.W.Dev) 1 puff INHALE RDAILY [facility] Last Admin: 05/24/24 07:43 Dose: Not Given Documented By: DAVID Non-Admin Reason: Patient Refused Furosemide (Furosemide 40 Mg/4 Ml Vial) 40 mg IVPUSH BID@0900,1800 [facility]; Protocol Gabapentin (Gabapentin 300 Mg Capsule) 300 mg PO TID [facility] Last Admin: 05/24/24 09:06 Dose: 300 mg Documented By: MERON Glucose (Glucose Gel 15 Gm Gel..Gram.) 15 gm PO Q15M PRN; Protocol PRN Reason: per Hypoglycemia Standing Ord. Dextrose (D10) 250 mls @ 750 mls/hr IV Q15M PRN; Protocol PRN Reason: per Hypoglycemia Standing Ord. Insulin Glargine (Insulin Glargine,Hum.Rec.Anlog 100 Unit/Ml 10 Ml Vial) 17 unit SUBCUT BEDTIME [facility] Last Admin: 05/23/24 20:04 Dose: Not Given Documented By: CONSUELO Non-Admin Reason: bs 84 Insulin Human Lispro (Insulin Lispro 100 Unit/Ml 3 Ml Vial) 0 unit SUBCUT QIDACHS [facility]; Protocol Last Admin: 05/24/24 12:55 Dose: Not Given Documented By: MERON Non-Admin Reason: No Insulin Coverage Isosorbide Dinitrate (Isosorbide Dinitrate 5 Mg Tablet) 5 mg PO 0800,1300,1800 [facility]; Protocol Last Admin: 05/24/24 09:14 Dose: Not Given Documented By: MERON Non-Admin Reason: Physician Held Med Magnesium Hydroxide (Milk Of Magnesia 30 Ml Oral.Susp) 30 ml PO DAILY PRN PRN Reason: Constipation Melatonin (Melatonin 3 Mg Tablet) 6 mg PO BEDTIME PRN PRN Reason: Insomnia Melatonin (Melatonin 3 Mg Tablet) 3 mg PO BEDTIME [facility] Last Admin: 05/23/24 19:58 Dose: 3 mg Documented By: CONSUELO Meropenem (Meropenem 1 Gm Vial) 1 gm IV Q8H [facility] Last Admin: 05/24/24 09:00 Dose: 1 gm Documented By: MERON Metoprolol Succinate (Metoprolol Succinate Er 25 Mg Tab.Er.24h) 25 mg PO DAILY [facility]; Protocol Last Admin: 05/24/24 09:18 Dose: 25 mg Documented By: MERON Morphine Sulfate (Morphine Sulfate 4 Mg/Ml Cartridge) 4 mg IVPUSH Q4H PRN; Protocol PRN Reason: Pain, Severe (Pain Scale 7-10) Last Admin: 05/24/24 11:15 Dose: 4 mg Documented By: MERON Omeprazole (Omeprazole 20 Mg Capsule.Dr) 20 mg PO DAILY@0630 [facility] Last Admin: 05/24/24 05:26 Dose: 20 mg Documented By: CONSUELO Ondansetron HCl (Ondansetron Hcl 4 Mg/2 Ml Vial) 4 mg IVPUSH Q8H PRN PRN Reason: Nausea and Vomiting Last Admin: 05/23/24 17:14 Dose: 4 mg Documented By: JULIET Oxycodone HCl (Oxycodone Hcl Immed Release 5 Mg Tablet) 5 mg PO Q4H PRN PRN Reason: Pain, Moderate(Pain Scale 4-6) Last Admin: 05/24/24 09:17 Dose: 5 mg Documented By: MERON Senna (Sennosides 8.6 Mg Tablet) 17.2 mg PO BEDTIME [facility] Last Admin: 05/23/24 19:58 Dose: 17.2 mg Documented By: CONSUELO Sertraline HCl (Sertraline Hcl 25 Mg Tablet) 25 mg PO DAILY [facility] Last Admin: 05/24/24 09:07 Dose: 25 mg Documented By: MERON Sodium Chloride (0.9 % Sodium Chloride Flush 3 Ml Syringe) 3 ml IVFLUSH QSHIFT [facility] Last Admin: 05/24/24 09:14 Dose: Not Given Documented By: MERON Non-Admin Reason: IV Running Thiamine HCl (Thiamine Hcl 100 Mg Tablet) 100 mg PO DAILY [facility] Last Admin: 05/24/24 09:07 Dose: 100 mg Documented By: MERON Torsemide (Torsemide 20 Mg Tablet) 20 mg PO DAILY [facility]; Protocol Last Admin: 05/24/24 09:07 Dose: 20 mg Documented By: MERON Labs 05/23/24 05:35 05/23/24 05:35 Labs: Laboratory Results - last 24 hr 05/23/24 05/23/24 05/24/24 16:11 19:50 07:25 POC Glucose 110 84 93 05/24/24 11:18 POC Glucose 119 H Microbiology Microbiology Results: Microbiology 05/22/24 21:39 Blood Culture - Preliminary Blood - Venous No growth after 24 hours. 05/22/24 21:39 Blood Culture - Preliminary Blood - Venous No growth after 24 hours. Assessment and Plan (1) Osteomyelitis of second toe of left foot: Status: Acute Plan d3 for 58yo M with HFrEF, COPD, pAF on apixaban, CAD s/p PCI, KIMANI on CPAP, DM2, PAD recently admitted here 05/03-05/17/24 for CHF exacerbation during which he was diuresed 28L and also completed IV ertapenem and daptomycin for treatment of diabetic foot infection with osteomyelitis. He returns with worsening foot pain and was admitted for persistent osteomyelitis DM osteomyelitis and cellulitis - d3 daptomycin + ertapenem, ID consult pending, Vascular Surgery consulted and will need amputation chronic HFrEF - continue metoprolol succinate, isosorbide dinitrate, empagliflozin, and valsartan; Cardiology consulted for preop evaluation and will give a few doses of IV furosemide [usually on PO torsemide] CAD PAD - hold ASA pAF - continue amiodarone + metoprolol succinate; hold apixaban KIMANI - CPAP at night COPD - Breo, prn albuterol DM2 - basal-bolus insulin peripheral neuropathy - continue gabapentin mood disorder - sertraline VTE ppx - SCDs, apixaban on hold for OR In my clinical judgment, the patient requires continued inpatient hospitalization for the following reasons: operative intervention, IV ABX Total time managing care of this patient today: 40 minutes. Quality Stroke Does the patient have a stroke diagnosis?: No VTE Prior VTE?: No VTE Risk Level:: Medical - moderate - high VTE Device Contraindication: Treatment Not Indicated VTE Drug Contraindication: Treatment Not Indicated
[2024-05-24] MEDS: Isosorbide Dinitrate 5 MG TABLET PO ×2 (14:48→17:38)
[2024-05-24 15:36] VITALS: BP 117/70; PULSE 66; RESP 12; TEMP 36.4; O2SAT 95
--- NOTE | 2024-05-24 16:06 | P.EN_ITS ---
Event Note Date of Service: 05/24/24 Event Note: 58-year-old patient well known to ca for chronically nonhealing left foot ulcer. He presented on 05/23 with increasing pain. He does have underlying osteomyelitis and was started on daptomycin and ertapenem. At the current time he appears to be doing significantly better. His respiratory status has improved. In addition his GFR has stabilized at 50. On examination of the foot on the plantar aspect he does have packing and on the lateral aspect near the ca tatarsal head there is an open ulcer at pain along that area. He already has an amputated great toe. I did also have an opportunity to review his noninvasive arterial testing. I do think he will require an angiogram to better evaluate his arterial status and subsequently a transmetatarsal amputation. Would like to see his renal function stabilized and ensure that he stable through the weekend and will schedule an angiogram for Wednesday. Thank you for allowing us to assist in his care. If there are any questions or concerns please do not hesitate to contact us. Time Spent With Patient Time: Total time managing care of this patient today ____ minutes.
[2024-05-24 16:16] LABS: Glucose, Whole Blood 87 mg/dL (60-115)
[2024-05-24] MEDS: 0.9 % Sodium Chloride Flush 3 ML SYRINGE IVFLUSH ×2 (17:37→20:01)
[2024-05-24] MEDS: Furosemide 40 MG/4 ML VIAL IVPUSH (17:39)
--- NOTE | 2024-05-24 18:00 | P.CDIM_ITS ---
PROVIDER RESPONSE TEXT: To clarify, the appropriate diagnosis supported by the clinical indicators: Other (explain): osteomyelitis and cellulitis due to diabetic foot infection QUERY TEXT: PHYSICIAN'S DOCUMENTATION REQUEST Date of Query: 05/24/2024 06:23 AM EST Patient Name: Jr Cruz Admit Date: 05/23/2024 Dear Franky Rodriguez MD, A review of the medical record indicates additional documentation may be needed. Please review below and update the documentation accordingly. Clinical Indicators: Progress notes within the Plan 05/23: DM osteomyelitis and cellulitis left foot. Wound care notes - wound swelling and pink erythema noted. Please clarify the following regarding the association with two diagnosis, if any: Cellulitis due to/associated with Diabetes Mellitus possible, probable, suspected etc. Cellulitis is not due to Diabetes mellitus Other (explain) Clinically unable to determine (explain) Thank you, Mandy Parson, CCS, CDIS Use of terms such as suspected, likely, concern for, or probable (associated with a specific diagnosi s that is being evaluated, monitored, or treated as if it exists) are acceptable and can be coded in the inpatient se tting, when documented at the time of discharge. Please use your independent medical judgment in providing your response. THIS QUERY IS PART OF THE PERMANENT MEDICAL RECORD
--- NOTE | 2024-05-24 18:00 | P.CDIM_ITS ---
PROVIDER RESPONSE TEXT: To clarify, the appropriate diagnosis supported by the clinical indicators: Other (explain): acute on chronic QUERY TEXT: PHYSICIAN'S DOCUMENTATION REQUEST Date of Query: 05/23/2024 01:03 PM EST Patient Name: Jr Cruz Admit Date: 05/23/2024 Dear Franky Rodriguez MD, A review of the medical record indicates additional documentation may be needed. Please review below and update the documentation accordingly. Clinical Indicators: Progress notes within the Plan: DM osteomyelitis and cellulitis d2 daptomycin and ertapenem. ID consult pending. Pt returns with worsening foot pain and was admitted for persistent osteomyelitis. Clarify which of the following accurately represents the acuity of the Osteomyelitis within the body of the written Plan: Possible options might include: Acute osteomyelitis second left foot Chronic osteomyelitis second left foot Other (explain) Clinically unable to determine (explain) Thank you, Mandy Parson, CCS, CDIS Use of terms such as suspected, likely, concern for, or probable (associated with a specific diagnosi s that is being evaluated, monitored, or treated as if it exists) are acceptable and can be coded in the inpatient se tting, when documented at the time of discharge. Please use your independent medical judgment in providing your response. THIS QUERY IS PART OF THE PERMANENT MEDICAL RECORD
[2024-05-24 19:45] VITALS: BP 96/61; PULSE 63; RESP 18; TEMP 36.3; O2SAT 91
[2024-05-24 19:46] LABS: Glucose, Whole Blood 74 mg/dL (60-115)
[2024-05-24] MEDS: Melatonin 3 MG TABLET PO (20:01)
[2024-05-24] MEDS: Insulin Glargine,Hum.rec.anlog 100 UNIT/ML 10 ML VIAL 17 UNIT SUBCUT (20:01)
[2024-05-24] MEDS: Sennosides 8.6 MG TABLET 17.2 MG PO (20:01)
[2024-05-24 23:36] VITALS: BP 114/64; PULSE 68; RESP 18; TEMP 36.4; O2SAT 96
[2024-05-25] VITALS (12 sets, daily range): BP systolic 100–129; BP diastolic 55–74; PULSE 59–73; RESP 14–20; TEMP 36.2–36.6; O2SAT 62–98
[2024-05-25] MEDS: Morphine Sulfate 4 MG/ML CARTRIDGE IVPUSH ×2 (03:56→17:58)
[2024-05-25] MEDS: oxyCODONE HCl Immed Release 5 MG TABLET PO (05:49)
[2024-05-25] MEDS: Omeprazole 20 MG CAPSULE.DR PO (05:54)
[2024-05-25] MEDS: Albuterol Sulfate (0.083%) 2.5 MG/3 ML VIAL.NEB INHALE (06:35)
[2024-05-25 06:36] LABS: Hematocrit 34.6 % (42.0-52.0); Hemoglobin 10.2 g/dl (14.0-18.0); Mean Corpuscular HGB Conc 29.5 g/dl (31.0-36.0); Mean Corpuscular Hemoglobin 23.9 pg (27.0-33.0); Mean Corpuscular Volume 81.2 fL (80.0-98.0); Mean Platelet Volume 10.4 fL (9.4-12.4); NRBC Pct Auto 0.4 /100WBC (0.0-0.2); Platelet Count 362 X10*3/uL (160-400); Red Blood Count 4.26 X10*6/uL (4.60-5.80); Red Cell Distribution Width 24.5 % (11.0-16.0); White Blood Count 11.8 X10*3/uL (4.8-10.8)
[2024-05-25 06:58] LABS: B Type Natriuretic Peptide 3605 pg/mL (<100)
[2024-05-25 07:31] LABS: Anion Gap 22 (12-20); Blood Urea Nitrogen 60 mg/dL (9-16); Calcium 8.7 mg/dL (8.4-10.2); Carbon Dioxide 25 mmol/L (22-29); Chloride 94 mmol/L (96-108); Creatinine Clr Calc Pharmacy 34.8; Estimated Glomerular Filt Rate 24; Glucose Random 39 mg/dL (60-115); Potassium 5.3 mmol/L (3.3-5.1); Sodium 136 mmol/L (135-145)
[2024-05-25 07:37] LABS: Glucose, Whole Blood 44 mg/dL (60-115)
[2024-05-25 07:39] LABS: Glucose, Whole Blood 44 mg/dL (60-115)
[2024-05-25 07:39] LABS: Glucose, Whole Blood 49 mg/dL (60-115)
[2024-05-25] MEDS: Dextrose 10 % 250 ML 750 ML IV (07:43)
[2024-05-25] MEDS: Fluticasone/Vilanterol 100/25 BLST.W.DEV 1 PUFF INHALE (08:11)
[2024-05-25 08:20] LABS: Glucose, Whole Blood 173 mg/dL (60-115)
[2024-05-25] MEDS: Colchicine 0.6 MG TABLET PO (08:45)
[2024-05-25] MEDS: ondansetron HCL 4 MG/2 ML VIAL IVPUSH (08:46)
[2024-05-25] MEDS: Meropenem 1 GM VIAL IV ×2 (08:46→22:58)
[2024-05-25] MEDS: Thiamine HCL 100 MG TABLET PO (08:46)
[2024-05-25] MEDS: Metoprolol Succinate ER 25 MG TAB.ER.24H PO (08:46)
[2024-05-25] MEDS: Gabapentin 300 MG CAPSULE PO ×2 (08:46→22:50)
[2024-05-25] MEDS: Sertraline HCL 25 MG TABLET PO (08:46)
[2024-05-25] MEDS: Isosorbide Dinitrate 5 MG TABLET PO ×2 (08:46→17:49)
[2024-05-25] MEDS: Amiodarone HCL 200 MG TABLET PO (08:46)
--- NOTE | 2024-05-25 10:38 | HO.PM.IMPN ---
Subjective Subjective Date of Service: 05/25/24 Interval History: c/o foot pain; no fever some leg edema; no dyspnea hypercarbia noted with confusion Review of Systems Review of Systems: Yes all other systems are reviewed and are negative Physical Exam Vital Signs: Vital Signs: Last Vital Signs Temp 97.5 F 05/25/24 07:25 Pulse 72 05/25/24 08:13 Resp 19 05/25/24 08:13 BP 129/74 05/25/24 07:25 Pulse Ox 93 05/25/24 07:25 O2 Del Method Nasal Cannula 05/25/24 07:25 O2 Flow Rate 2 05/25/24 07:25 BMI result Body Mass Index 30.5 Appearing in no acute distress lung sounds are clear to auscultation heart regular rate rhythm, clear S1, S2 positive bowel sounds, abdomen is soft, nontender neuro patient is alert x3, no focal deficits Objective Data Active Medications Acetaminophen (Acetaminophen 325 Mg Tablet) 975 mg PO Q6H PRN PRN Reason: Pain, Mild (Pain Scale 1-3), fever or headache Albuterol Sulfate (Albuterol Sulfate (0.083%) 2.5 Mg/3 Ml Vial.Neb) 2.5 mg INHALE Q6H PRN PRN Reason: Shortness Of Breath Or Wheezing Last Admin: 05/25/24 06:35 Dose: 2.5 mg Documented By: NEHA Amiodarone HCl (Amiodarone Hcl 200 Mg Tablet) 200 mg PO DAILY [facility] Last Admin: 05/25/24 08:46 Dose: 200 mg Documented By: PEBBLES Colchicine (Colchicine 0.6 Mg Tablet) 0.6 mg PO DAILY [facility] Last Admin: 05/25/24 08:45 Dose: 0.6 mg Documented By: PEBBLES Fluticasone/Vilanterol (Fluticasone/Vilanterol 100/25 Blst.W.Dev) 1 puff INHALE RDAILY [facility] Last Admin: 05/25/24 08:11 Dose: 1 puff Documented By: SARAH Furosemide (Furosemide 40 Mg/4 Ml Vial) 40 mg IVPUSH BID@0900,1800 [facility]; Protocol Last Admin: 05/24/24 17:39 Dose: 40 mg Documented By: MERON Gabapentin (Gabapentin 300 Mg Capsule) 300 mg PO TID [facility] Last Admin: 05/25/24 08:46 Dose: 300 mg Documented By: PEBBLES Glucose (Glucose Gel 15 Gm Gel..Gram.) 15 gm PO Q15M PRN; Protocol PRN Reason: per Hypoglycemia Standing Ord. Dextrose (D10) 250 mls @ 750 mls/hr IV Q15M PRN; Protocol PRN Reason: per Hypoglycemia Standing Ord. Last Infusion: 05/25/24 08:59 Dose: Infused Documented By: PEBBLES Insulin Glargine (Insulin Glargine,Hum.Rec.Anlog 100 Unit/Ml 10 Ml Vial) 17 unit SUBCUT BEDTIME [facility] Last Admin: 05/24/24 20:01 Dose: 17 unit Documented By: RACHID Insulin Human Lispro (Insulin Lispro 100 Unit/Ml 3 Ml Vial) 0 unit SUBCUT QIDACHS [facility]; Protocol Last Admin: 05/25/24 07:30 Dose: Not Given Documented By: PEBBLES Non-Admin Reason: Patient Condition Contraindication Isosorbide Dinitrate (Isosorbide Dinitrate 5 Mg Tablet) 5 mg PO 0800,1300,1800 [facility]; Protocol Last Admin: 05/25/24 08:46 Dose: 5 mg Documented By: PEBBLES Magnesium Hydroxide (Milk Of Magnesia 30 Ml Oral.Susp) 30 ml PO DAILY PRN PRN Reason: Constipation Melatonin (Melatonin 3 Mg Tablet) 6 mg PO BEDTIME PRN PRN Reason: Insomnia Melatonin (Melatonin 3 Mg Tablet) 3 mg PO BEDTIME [facility] Last Admin: 05/24/24 20:01 Dose: 3 mg Documented By: RACHID Meropenem (Meropenem 1 Gm Vial) 1 gm IV Q8H [facility] Last Admin: 05/25/24 08:46 Dose: 1 gm Documented By: PEBBLES Metoprolol Succinate (Metoprolol Succinate Er 25 Mg Tab.Er.24h) 25 mg PO DAILY [facility]; Protocol Last Admin: 05/25/24 08:46 Dose: 25 mg Documented By: PEBBLES Morphine Sulfate (Morphine Sulfate 4 Mg/Ml Cartridge) 4 mg IVPUSH Q4H PRN; Protocol PRN Reason: Pain, Severe (Pain Scale 7-10) Last Admin: 05/25/24 03:56 Dose: 4 mg Documented By: RACHID Omeprazole (Omeprazole 20 Mg Capsule.) 20 mg PO DAILY@0630 [facility] Last Admin: 05/25/24 05:54 Dose: 20 mg Documented By: RACHID Ondansetron HCl (Ondansetron Hcl 4 Mg/2 Ml Vial) 4 mg IVPUSH Q8H PRN PRN Reason: Nausea and Vomiting Last Admin: 05/25/24 08:46 Dose: 4 mg Documented By: PEBBLES Oxycodone HCl (Oxycodone Hcl Immed Release 5 Mg Tablet) 5 mg PO Q4H PRN PRN Reason: Pain, Moderate(Pain Scale 4-6) Last Admin: 05/25/24 05:49 Dose: 5 mg Documented By: RACHID Senna (Sennosides 8.6 Mg Tablet) 17.2 mg PO BEDTIME [facility] Last Admin: 05/24/24 20:01 Dose: 17.2 mg Documented By: RACHID Sertraline HCl (Sertraline Hcl 25 Mg Tablet) 25 mg PO DAILY [facility] Last Admin: 05/25/24 08:46 Dose: 25 mg Documented By: PEBBLES Sodium Chloride (0.9 % Sodium Chloride Flush 3 Ml Syringe) 3 ml IVFLUSH QSHIFT [facility] Last Admin: 05/25/24 08:59 Dose: Not Given Documented By: PEBBLES Non-Admin Reason: Previously Administered Thiamine HCl (Thiamine Hcl 100 Mg Tablet) 100 mg PO DAILY [facility] Last Admin: 05/25/24 08:46 Dose: 100 mg Documented By: PEBBLES Torsemide (Torsemide 20 Mg Tablet) 20 mg PO DAILY [facility]; Protocol Last Admin: 05/24/24 09:07 Dose: 20 mg Documented By: MERON Labs 05/25/24 05:40 05/25/24 05:40 Labs: Laboratory Results - last 24 hr 05/24/24 05/24/24 05/24/24 11:18 16:07 19:31 MCV MCH MCHC RDW Plt Count MPV Absolute Nucleated RBC Nucleated RBC % (auto) Anion Gap Estim Creat Clear Calc Estimated GFR POC Glucose 119 H 87 74 Random Glucose Calcium B-Natriuretic Peptide 05/25/24 05/25/24 05/25/24 05:40 07:17 07:31 MCV 81.2 MCH 23.9 L MCHC 29.5 L RDW 24.5 H Plt Count 362 MPV 10.4 Absolute Nucleated RBC 0.050 H Nucleated RBC % (auto) 0.4 H Anion Gap 22 H Estim Creat Clear Calc 34.8 Estimated GFR 24 POC Glucose 49 L* 44 L* Random Glucose 39 L* Calcium 8.7 B-Natriuretic Peptide 3605 H 05/25/24 05/25/24 07:35 08:15 MCV MCH MCHC RDW Plt Count MPV Absolute Nucleated RBC Nucleated RBC % (auto) Anion Gap Estim Creat Clear Calc Estimated GFR POC Glucose 44 L* 173 H Random Glucose Calcium B-Natriuretic Peptide Microbiology Microbiology Results: Microbiology 05/22/24 21:39 Blood Culture - Preliminary Blood - Venous No growth after 48 hours. 05/22/24 21:39 Blood Culture - Preliminary Blood - Venous No growth after 48 hours. Assessment and Plan (1) Osteomyelitis of second toe of left foot: Status: Acute Plan 58yo M with HFrEF, COPD, pAF on apixaban, CAD s/p PCI, KIMANI on CPAP, DM2, PAD recently admitted here 05/03-05/17/24 for CHF exacerbation during which he was diuresed 28L and also completed IV ertapenem and daptomycin for treatment of diabetic foot infection with osteomyelitis. He returns with worsening foot pain and was admitted for persistent osteomyelitis Acute hypoxia resp failure and hypercarbia confusion noted ABG 7.19/65/51/25 placed on bipap with good effect, more awake apparently did not wear his cpap overnight repeat VBG DECLAN on CKD 3 likely secondary to diuresis lasix and torsemide held nephrology consultation pending DM2 with hypoglycemia down to 39 this morning given d50 this morning with good effect basal-bolus insulin as per ss DM osteomyelitis and cellulitis daptomycin + ertapenem ID consult pending Vascular Surgery consulted for management of possible amputation Chronic HFrEF continue metoprolol succinate, isosorbide dinitrate, empagliflozin, and valsartan Cardiology consulted for preop evaluation and will give a few doses of IV furosemide [usually on PO torsemide], lasix held due to worsening renal function CAD PAD hold ASA in light of possible surgery PAF continue amiodarone + metoprolol succinate; hold apixaban KIMANI CPAP at night and during naps COPD Breo, prn albuterol Peripheral neuropathy continue gabapentin mood disorder sertraline VTE ppx SCDs, apixaban on hold for OR Attending Dr. Shay Full code In my clinical judgment, the patient requires continued inpatient hospitalization for the following reasons: operative intervention, IV ABX Total time managing care of this patient today: 40 minutes. Quality Stroke Does the patient have a stroke diagnosis?: No VTE Prior VTE?: No VTE Risk Level:: Medical - moderate - high VTE Device Contraindication: Treatment Not Indicated VTE Drug Contraindication: Treatment Not Indicated
[2024-05-25 10:53] LABS: Glucose, Whole Blood 117 mg/dL (60-115)
[2024-05-25 11:25] LABS: ABG Base Excess -3.2 mmol/L; ABG HCO3 25 mmol/L (22-26); ABG pCO2 65 mmHg (32-45); ABG pH 7.19 (7.35-7.45); ABG pO2 51 mmHg (83-108)
[2024-05-25 11:47] LABS: Glucose, Whole Blood 140 mg/dL (60-115)
[2024-05-25 14:41] LABS: Venous Blood Gas Refer to POC result
[2024-05-25 14:41] LABS: VBG Base Excess 1.2 mmol/L; VBG HCO3 28 mmol/L (22-26); VBG pCO2 58 mmHg; VBG pH 7.29 (7.32-7.43); VBG pO2 112 mmHg
--- NOTE | 2024-05-25 15:50 | PC.NURSE ---
pt very lethargic confused all morning. Sister states it's abnormal. BS is still fine (critical in am). Checked his O2 in mid 60s. NC bumped to 6 up wasn't bringing it up threw him on the oxy mask to 15. running 88-89, unable to take nice deep breaths for me. Notified JEANINE Teran and came to bedside. Called resp stat, and ABG. ABG 7.19/65/51/25. Pt placed on Bipap to good effect.
[2024-05-25 16:21] LABS: Glucose, Whole Blood 98 mg/dL (60-115)
[2024-05-25] MEDS: 0.9 % Sodium Chloride Flush 3 ML SYRINGE IVFLUSH (17:51)
--- NOTE | 2024-05-25 18:04 | PC.NURSE ---
0715 critical glu of 39. acceccesed pt. lethargic but alert. POC 49. given 2 apple juices. recheck 15 min- poc-44. Notfied Jeffry. Thanh IV dextrose 20%. Recheck after 20 in poc- 173.
[2024-05-25 20:25] LABS: Glucose, Whole Blood 85 mg/dL (60-115)
[2024-05-25] MEDS: Melatonin 3 MG TABLET PO (22:50)
[2024-05-25] MEDS: Sennosides 8.6 MG TABLET 17.2 MG PO (22:50)
[2024-05-25 23:35] LABS: Glucose, Whole Blood 96 mg/dL (60-115)
[2024-05-26] VITALS (34 sets, daily range): BP systolic 75–117; BP diastolic 46–72; PULSE 60–75; RESP 12–36; TEMP 36–37.6; O2SAT 89–99; BMI 31.0
--- NOTE | 2024-05-26 | ECG_ITS ---
Test Reason : icu evaluation Blood Pressure : / mmHG Vent. Rate : 061 BPM Atrial Rate : 061 BPM P-R Int : 282 ms QRS Dur : 106 ms QT Int : 470 ms P-R-T Axes : 085 -31 -12 degrees QTc Int : 473 ms Sinus rhythm with 1st degree A-V block with occasional Premature ventricular complexes Left axis deviation Low voltage QRS Cannot rule out Anteroseptal infarct , age undetermined Abnormal ECG When compared with ECG of 24-MAY-2024 11:40, No significant changes seen Referred By: Katja Jim Electronically Signed By:DIAN WORRELL
[2024-05-26] MEDS: Morphine Sulfate 4 MG/ML CARTRIDGE IVPUSH (01:54)
[2024-05-26 02:21] LABS: Glucose, Whole Blood 99 mg/dL (60-115)
[2024-05-26 02:47] LABS: ABG Base Excess -0.7 mmol/L; ABG HCO3 27 mmol/L (22-26); ABG pCO2 58 mmHg (32-45); ABG pH 7.27 (7.35-7.45); ABG pO2 114 mmHg (83-108)
[2024-05-26 02:54] LABS: ABG Refer to POC result
--- NOTE | 2024-05-26 03:42 | P.EN_ITS ---
Event Note Date of Service: 05/26/24 Event Note: The patient is a complex case with multiple comorbidities, including paroxysmal atrial fibrillation, coronary artery disease, diffuse vascular disease, cardiomyopathy, HFrEF with an ejection fraction of 15?20%, and recurrent exacerbations. He continues to smoke and has an ICD in place. He was recently discharged on 05/17 after treatment for a heart failure exacerbation, during which he was diuresed 28 liters. He is currently admitted for osteomyelitis of the second toe on the left foot and is being evaluated by surgery for possible amputation. Yesterday, the patient experienced acute hypoxic and hypercarbic respiratory failure with decreased responsiveness and was started on BiPAP, which provided partial correction as evidenced by ABG. At the beginning of the shift, he was noted to have intermittent oxygen desaturations, prompting continuous oxygen mo nitoring. Despite using his CPAP during sleep, he continued to have intermittent desaturations, along with restlessness, confusion, and increasing somnolence. He was transitioned back to BiPAP, and an ABG obtained within an hour showed a pH of 7.27, pCO2 of 58, and pO2 of 114 on BiPAP. Notably, his baseline pCO2 is normal. Further review revealed a recent BNP of 3606, worsening renal function with a creatinine of 2.7 (baseline ~1.4), a CXR is requested Given his confusion, CO2 retention, and the need for BiPAP support, the ICU was consulted. The patient is being transferred to the ICU for closer monitoring. This was discussed with Dr. Jim and RANI Lebron. Time Spent With Patient Time: Total time managing care of this patient today ____ minutes.
[2024-05-26 04:37] LABS: Glucose, Whole Blood 81 mg/dL (60-115)
[2024-05-26] MEDS: Albuterol Sulfate (0.083%) 2.5 MG/3 ML VIAL.NEB INHALE ×4 (04:41→20:26)
[2024-05-26 05:36] LABS: VBG Base Excess 0.8 mmol/L; VBG HCO3 28 mmol/L (22-26); VBG pCO2 61 mmHg; VBG pH 7.27 (7.32-7.43); VBG pO2 53 mmHg
[2024-05-26 05:38] LABS: MANUAL DIFF FLAG NO
[2024-05-26 05:39] LABS: Basophils Absolute Auto 0.1 X10*3/uL (0.0-0.2); Basophils Percent Auto 0.8 % (0-2); Eosinophils Absolute Auto 0.6 X10*3/uL (0.0-0.4); Eosinophils Percent Auto 5.7 % (0-4); Hematocrit 32.5 % (42.0-52.0); Hemoglobin 9.9 g/dl (14.0-18.0); Imm Gran Abs Auto 0.06 X10*3/uL (0.00-0.03); Imm Gran Pct Auto 0.6 % (0.0-0.4); Lymphocytes Absolute Auto 1.2 X10*3/uL (1.2-4.9); Lymphocytes Percent Auto 12.3 % (20-40); Mean Corpuscular HGB Conc 30.5 g/dl (31.0-36.0); Mean Corpuscular Hemoglobin 24.1 pg (27.0-33.0); Mean Corpuscular Volume 79.3 fL (80.0-98.0); Mean Platelet Volume 10.6 fL (9.4-12.4); Monocytes Absolute Auto 1.2 X10*3/uL (0.1-1.2); Monocytes Percent Auto 11.7 % (2-11); NRBC Pct Auto 0.5 /100WBC (0.0-0.2); Neutrophils Absolute Auto 6.8 x10*3/uL (2.0-8.3); Neutrophils Percent Auto 68.9 % (45-73); Platelet Count 271 X10*3/uL (160-400); Red Cell Distribution Width 23.9 % (11.0-16.0); White Blood Count 9.9 X10*3/uL (4.8-10.8)
[2024-05-26 05:46] LABS: Venous Blood Gas Refer to POC result
[2024-05-26 06:03] LABS: Anion Gap 24 (12-20); Blood Urea Nitrogen 73 mg/dL (9-16); Calcium 8.2 mg/dL (8.4-10.2); Carbon Dioxide 24 mmol/L (22-29); Chloride 92 mmol/L (96-108); Creatinine Clr Calc Pharmacy 24.3; Estimated Glomerular Filt Rate 16; Glucose Random 89 mg/dL (60-115); Magnesium 2.9 mg/dL (1.6-2.6); Potassium 5.9 mmol/L (3.3-5.1); Sodium 134 mmol/L (135-145)
--- NOTE | 2024-05-26 07:14 | PC.NURSE ---
Late entry: Upon assuming care of pt at 19:00, pt was A&0x2, drowsy/lethargic, POC 96, and on 4L 02 via NC (88-89%)w/ CPAP at bedtime. This RN notified MD Reilly to place continuous pulse oximetry on pt d/t interment O2 desats in the mid 60s-70s. After pt was given PO bedtime medications, pt was placed on CPAP, but was still having intermittent O2 desats along with restlessness. MD Reilly was made aware and came to bedside. Respiratory was contact by the MD and came to bedside as well.Pt was place back on BIPAP machine (placed on earlier in previous shift). POC 99. ABG labs were ordered and Chest Xray. ICU was consulted and transfer order place for ICU. Report given to MUSHROOM CULTIVATOR. Pt transferred to ICU. Plan of care ongoing.
[2024-05-26 07:24] LABS: Glucose, Whole Blood 84 mg/dL (60-115)
--- NOTE | 2024-05-26 08:24 | P.PNCC_ITS ---
Subjective Subjective Date of Service: 05/26/24 Interval History: admitted to ICU 05/26 AM d/t acute on chronic hypercarbic respiratory failure, improving on BiPAP Critical Care Time (minutes): 60 Physical Exam 2 Vital Signs: Vital Signs: Last Vital Signs Temp 97.2 F 05/26/24 04:37 Pulse 60 05/26/24 07:00 Resp 18 05/26/24 07:39 BP 93/55 L 05/26/24 07:00 Pulse Ox 95 05/26/24 07:00 O2 Del Method BiPAP 05/26/24 07:00 O2 Flow Rate 2 05/25/24 19:29 FiO2 30 05/26/24 08:00 BMI result Body Mass Index 31.0 Const: Other: encephalopathic, somnolent, though arousable w/ verbal stimulus General: no acute distress HEENT: Head: Yes normal to inspection, Yes normocephalic and Yes atraumatic Eyes: General: appearance normal, both eyes and all related structures Neck: Neck: Yes normal visual inspection, Yes full ROM, Yes no meningeal signs, Yes trachea midline and Yes supple Chest: Chest palpation & inspection: normal inspection of the chest Resp: Other: no appreciable rales, rhonchi, wheezing Cardio: Rate: regular rate Rhythm: regular rhythm GI: Inspection: Yes normal to inspection, No Abdominal wall edema and No distended Palpation (GI): Soft to palpation, not firm, nontender, no guarding and not rigid Neuro: General: tone normal, moves all extremities, no meningeal signs and no focal motor deficits Extrem: Other: L foot wrapped in bandage, clean, dry, intact; toes w/ normal capillary refill; appreciable 1+ pitting edema to bilateral shins General: Yes normal to inspection, Yes full ROM and Yes capillary refill normal Psych: Other: unable to assess Objective Data Labs 05/26/24 05:32 05/26/24 05:32 Labs: Laboratory Results - last 24 hr 05/25/24 05/25/24 05/25/24 10:48 11:14 11:43 WBC RBC Hgb Hct MCV MCH MCHC RDW Plt Count MPV Immature Gran % (Auto) Neut % (Auto) Lymph % (Auto) [facility] % (Auto) Eos % (Auto) Baso % (Auto) Lymph # (Auto) [facility] # (Auto) Eos # (Auto) Baso # (Auto) Abs Immat Gran (auto) Absolute Neuts (auto) Absolute Nucleated RBC Nucleated RBC % (auto) O2 Saturation 65.0 ABG pH at Pt Temp 7.19 L* ABG pCO2 at Pt Temp 65 H* ABG pO2 at Pt Temp 51 L ABG HCO3 25 ABG Base Excess (Actual) -3.2 VBG pH VBG pCO2 VBG pO2 VBG HCO3 VBG O2 Saturation VBG Base Excess Sodium Potassium Chloride Carbon Dioxide Anion Gap BUN Creatinine Estim Creat Clear Calc Estimated GFR POC Glucose 117 H 140 H Random Glucose Calcium Phosphorus Magnesium 05/25/24 05/25/24 05/25/24 14:35 16:14 20:08 WBC RBC Hgb Hct MCV MCH MCHC RDW Plt Count MPV Immature Gran % (Auto) Neut % (Auto) Lymph % (Auto) [facility] % (Auto) Eos % (Auto) Baso % (Auto) Lymph # (Auto) [facility] # (Auto) Eos # (Auto) Baso # (Auto) Abs Immat Gran (auto) Absolute Neuts (auto) Absolute Nucleated RBC Nucleated RBC % (auto) O2 Saturation ABG pH at Pt Temp ABG pCO2 at Pt Temp ABG pO2 at Pt Temp ABG HCO3 ABG Base Excess (Actual) VBG pH 7.29 L VBG pCO2 58 VBG pO2 112 VBG HCO3 28 H VBG O2 Saturation 99.0 VBG Base Excess 1.2 Sodium Potassium Chloride Carbon Dioxide Anion Gap BUN Creatinine Estim Creat Clear Calc Estimated GFR POC Glucose 98 85 Random Glucose Calcium Phosphorus Magnesium 05/25/24 05/26/24 05/26/24 23:31 02:17 02:36 WBC RBC Hgb Hct MCV MCH MCHC RDW Plt Count MPV Immature Gran % (Auto) Neut % (Auto) Lymph % (Auto) [facility] % (Auto) Eos % (Auto) Baso % (Auto) Lymph # (Auto) [facility] # (Auto) Eos # (Auto) Baso # (Auto) Abs Immat Gran (auto) Absolute Neuts (auto) Absolute Nucleated RBC Nucleated RBC % (auto) O2 Saturation 99.0 ABG pH at Pt Temp 7.27 L ABG pCO2 at Pt Temp 58 H ABG pO2 at Pt Temp 114 H ABG HCO3 27 H ABG Base Excess (Actual) -0.7 VBG pH VBG pCO2 VBG pO2 VBG HCO3 VBG O2 Saturation VBG Base Excess Sodium Potassium Chloride Carbon Dioxide Anion Gap BUN Creatinine Estim Creat Clear Calc Estimated GFR POC Glucose 96 99 Random Glucose Calcium Phosphorus Magnesium 05/26/24 05/26/24 05/26/24 04:32 05:26 05:32 WBC 9.9 RBC 4.10 L Hgb 9.9 L Hct 32.5 L MCV 79.3 L MCH 24.1 L MCHC 30.5 L RDW 23.9 H Plt Count 271 D MPV 10.6 Immature Gran % (Auto) 0.6 H Neut % (Auto) 68.9 Lymph % (Auto) 12.[address] % (Auto) 11.7 H Eos % (Auto) 5.7 H Baso % (Auto) 0.8 Lymph # (Auto) 1.2 [facility] # (Auto) 1.2 Eos # (Auto) 0.6 H Baso # (Auto) 0.1 Abs Immat Gran (auto) 0.06 H Absolute Neuts (auto) 6.8 Absolute Nucleated RBC 0.050 H Nucleated RBC % (auto) 0.5 H O2 Saturation ABG pH at Pt Temp ABG pCO2 at Pt Temp ABG pO2 at Pt Temp ABG HCO3 ABG Base Excess (Actual) VBG pH 7.27 L VBG pCO2 61 VBG pO2 53 VBG HCO3 28 H VBG O2 Saturation 71.0 VBG Base Excess 0.8 Sodium 134 L Potassium 5.9 H Chloride 92 L Carbon Dioxide 24 Anion Gap 24 H BUN 73 H Creatinine 3.90 H Estim Creat Clear Calc 24.3 Estimated GFR 16 POC Glucose 81 Random Glucose 89 Calcium 8.2 L Phosphorus 10.0 H Magnesium 2.9 H 05/26/24 07:21 WBC RBC Hgb Hct MCV MCH MCHC RDW Plt Count MPV Immature Gran % (Auto) Neut % (Auto) Lymph % (Auto) [facility] % (Auto) Eos % (Auto) Baso % (Auto) Lymph # (Auto) [facility] # (Auto) Eos # (Auto) Baso # (Auto) Abs Immat Gran (auto) Absolute Neuts (auto) Absolute Nucleated RBC Nucleated RBC % (auto) O2 Saturation ABG pH at Pt Temp ABG pCO2 at Pt Temp ABG pO2 at Pt Temp ABG HCO3 ABG Base Excess (Actual) VBG pH VBG pCO2 VBG pO2 VBG HCO3 VBG O2 Saturation VBG Base Excess Sodium Potassium Chloride Carbon Dioxide Anion Gap BUN Creatinine Estim Creat Clear Calc Estimated GFR POC Glucose 84 Random Glucose Calcium Phosphorus Magnesium Microbiology Microbiology Results: Microbiology 05/22/24 21:39 Blood - Venous Blood Culture - Preliminary No growth after 48 hours. 05/22/24 21:39 Blood - Venous Blood Culture - Preliminary No growth after 48 hours. Progress Note: A&P Assessment and plan (1) Acute exacerbation of chronic obstructive airways disease: Status: Acute (2) COPD (chronic obstructive pulmonary disease): Status: Acute (3) KIMANI (obstructive sleep apnea): Status: Acute (4) Heart failure with reduced ejection fraction: Status: Acute (5) Osteomyelitis of second toe of left foot: Status: Acute Plan Patient?is a 58 Y M w/ insulin-dependent diabetes mellitus c/b chronic L foot ulcer c/b osteomyelitis, coronary artery disease s/p PCI, c/b HFrEF, paroxysmal atrial fibrillation on apixaban, COPD, KIMANI on CPAP, presenting initially to emergency department on 05/22 w/ acute on chronic L foot ulcer infection, admitted to medicine pending?amputation; on 05/26 AM, patient w/ acute on chronic hypercarbic respiratory failure, placed on BuPAP N:?encephalopathy, likely toxic-metabolic, improving CV: coronary artery disease s/p PCI on aspirin, HFrEF, paroxysmal atrial fibrillation on apixaban, though holding for procedural planning R: acute on chronic hypercarbic respiratory failure, on BiPAP; COPD, KIMANI on CPAP; possibly needs more non-invasive support at night, sleep study ordered GI: no acute issues; NPO while on BiPAP : acute on chronic renal?insufficiency, c/b hyperphosphatemia, judicious use of IV fluids and diuretics; to closely monitor electrolytes, renal indices H: no acute issues; holding chemical DVT prophylaxis for procedural planning ID: acute on chronic L foot ulcer c/b osteomyelitis, daptomycin, meropenem pending possible amputation E: insulin-dependent diabetes mellitus; insulin regimen Quality Stroke Does the patient have a stroke diagnosis?: No VTE Prior VTE?: No VTE Risk Level:: Medical - moderate - high VTE Device Contraindication: N/A - Device Ordered VTE Drug Contraindication: Treatment Not Tolerated
[2024-05-26] MEDS: Calcium Gluconate/NaCl,Iso-Osm 1 GM/50 ML PLAST..BAG IV ×2 (08:49→13:23)
[2024-05-26] MEDS: Lactated Ringers 500 ML 100 ML IVCONT (08:49)
[2024-05-26] MEDS: Furosemide 20 MG/2 ML VIAL IVPUSH (08:49)
[2024-05-26] MEDS: 0.9 % Sodium Chloride Flush 3 ML SYRINGE IVFLUSH ×3 (09:06→23:43)
--- NOTE | 2024-05-26 09:12 | HO.VASCPN ---
Subjective Subjective Date of Service: 05/26/24 Interval history: 58-year-old gentleman with multiple medical issues well known to us for chronic nonhealing left lower extremity ulcer and underlying osteomyelitis. Events overnight were reviewed and he was subsequently admitted to the ICU for mental status changes. He was found to have an acute hypoxic and hypercarbic event. He was sent to the ICU for respiratory support. Continues to have multiple medical problems. Of note his renal function has significantly decreased to a GFR of 16. Physical Exam Vital Signs: Vital Signs: Last Vital Signs Temp 98.5 F 05/26/24 08:00 Pulse 61 05/26/24 08:00 Resp 18 05/26/24 08:00 BP 96/67 05/26/24 08:00 Pulse Ox 98 05/26/24 08:00 O2 Del Method BiPAP 05/26/24 08:00 O2 Flow Rate 2 05/25/24 19:29 FiO2 30 05/26/24 08:00 BMI result Body Mass Index 31.0 Const: General: cooperative, healthy appearing and comfortable Orientation/consciousness: oriented to person, oriented to place and oriented to time HEENT: Head: Yes normal to inspection Neck: Neck: Yes normal visual inspection Carotids: no bruits Chest: Chest palpation & inspection: normal inspection of the chest Resp: Effort & Inspection: normal respiratory effort and able to speak in complete sentences Auscultation: clear to auscultation bilaterally, no crackles, no rales, no rhonchi and no wheezes Cardio: Other: Bilateral DP signals Rate: regular rate Rhythm: regular rhythm Heart sounds: S1 normal heart sound present and S2 normal heart sound present Bruits: no carotid bruits GI: Inspection: Yes normal to inspection Skin: Other: left foot plantar ulceration along with small lateral metatarsal head ulcer. Wounds: no wounds Hair: normal Neuro: General: oriented to person, oriented to place and oriented to time Cranial nerves: Yes CN's II-XII intact bilaterally and Yes Normal hearing present Cognition (Neuro): normal cognition Motor exam (neuro): 5/5 motor strength present throughout Extrem: Other: venous exam: No significant superficial varicosities or spider telangiectasias, minimal edema General: No clubbing, No cyanosis and No edema Psych: Appearance: grossly normal Mental Status: mental status grossly normal Speech and movement: Normal speech and movement present Progress Note: A&P Assessment and plan (1) Diabetic infection of left foot: Status: Acute Assessment and Plan: In short patient has chronic underlying osteomyelitis. I do not believe that this is the source of his current events. He does not exhibit signs of sepsis. His current white count is 9.9. And he has remained afebrile with a T-max of 98.5 degrees. He does have met multiple medical issues that do need to be addressed at the current time. 1. Is his respiratory status. He is being monitored by the pre k special education teacher to 2. Is his acute on chronic renal failure. He had a previous GFR of nearly 60. It is down to 16. Finally I would also involve Infectious Disease to make sure that he is on the appropriate antibiotic regimen. At the current time I will forego angiogram due to his renal function and declining status. Once stabilized will pursue amputation most likely a transmetatarsal. The issue is that it may not heal and he may potentially end up with a BKA. Case discussed with the pre k special education teacher team and the overnight hospitalist team as well. Thank you for allowing us to participate in his care. If there are any questions or concerns please do not hesitate to contact us. Time Spent With Patient Time: Total time managing care of this patient today _ Sixty___ minutes. reviewing events of last night discussion with appropriate medical teams along with discussion with family in addition to direct patient care. Procedures Date of Service Date of Service: 05/26/24 Quality Stroke Does the patient have a stroke diagnosis?: No VTE Prior VTE?: No VTE Risk Level:: Medical - moderate - high VTE Device Contraindication: N/A - Device Ordered VTE Drug Contraindication: Treatment Not Tolerated
--- NOTE | 2024-05-26 09:31 | CA_ITS ---
Transthoracic Echocardiogram Patient (Last, First, Middle): Jr Cruz, Gender: Male Date of : 1965 Age: 58 Procedure Date: 05/26/2024 Procedure Type: Transthoracic Echocardiogram Location: ICU Height: 180.34 cm Weight: 100.7 kg BSA: 2.20 m2 Heart Rate: bpm BP: 92 / 57 mmHg Head Of Store Operations: MÓNICA Referring MD: Katja Jim MD Symptoms: Please Assess Function Study Quality: Technically Difficult, contrast Conclusions: - The left ventricular systolic function is severely decreased. The visually estimated ejection fraction is between 15-20%. Findings Procedure Information Contrast agent, definity, is being given per protocol without apparent complications. Left Ventricle Mildly increased left ventricular cavity size. The left ventricular systolic function is severely decreased. The visually estimated ejection fraction is between 15-20%. There is severe global hypokinesis. Right Ventricle Right ventricle not well visualized, but appears enlarged. Venous The inferior vena cava is dilated and collapses less than 50% with inspiration. Prior Study Comparison No significant change compared to prior study dated: 04/03/2024. Measurements 2D Linear Measurements IVSd: 1.01 0.6-0.9/0.6-1.0 cm LVIDd: 3.98 3.9-5.3/4.2-5.9 cm LVIDd Index: 1.81 2.4-3.2/2.2-3.1 cm/m2 LVIDs: 3.51 2.0-3.6 cm LVPWd: 0.98 0.7-1.1 cm LV Mass: 155.72 67-162/88-224 g LV Mass Index: 70.78 43-95/49-115 g/m2 LVOT Diam: 2.20 3.0+(-)1.3 cm 2D Systolic Function EF 4C: 38.80 >55% EF 2C: 25.40 >55% EF BiP: 32.10 >55% LVOT LVOT Pk Rashawn: 0.70 LVOT Mn Rashawn: 0.42 LVOT VTI: 0.13 LVOT Pk Grad: 2.00 LVOT Mn Grad: 1.00 LVOT Diam: 2.20 LVOT Area: 3.80 Updated in Other Vendor System with Status of Final Suleiman Pham MD electronically signed on 05/26/2024 1:37:57 PM with status of Final
[2024-05-26] MEDS: Meropenem 1 GM VIAL IV ×2 (10:38→21:43)
[2024-05-26] MEDS: Sodium Bicarbonate 8.4% 50 MEQ/50 ML SYRINGE IVPUSH (10:38)
[2024-05-26 10:49] LABS: Lactic Acid 1.9 mmol/L (0.5-2.0)
[2024-05-26 11:03] LABS: Appearance Urine Cloudy; Color Urine Dark Yellow; Glucose Urine UA Negative (Negative); Leukocyte Esterase Urine Trace (Negative); Nitrite Urine Negative (Negative); Specific Gravity - Urine 1.025 (1.005-1.025); UMIC TRIGGER UACC YES; Urine Blood Negative (Negative); Urine Ketones Trace mg/dL (Negative); Urine Protein 100 (2+) mg/dL (Neg-Trace)
[2024-05-26 11:14] LABS: Bacteria Urine None Seen (None Seen); RBC Urine 0-2 /HPF (0-2); Squamous Epithelial Cell Urine 0-2 /HPF (0-2); WBC Urine 0-5 /HPF (0-5)
[2024-05-26 11:23] LABS: Glucose, Whole Blood 73 mg/dL (60-115)
[2024-05-26] MEDS: DAPTOmycin 500 MG in 0.9 % Sodium Chloride 50 ML 96.64 MG IV (11:29)
[2024-05-26] MEDS: Furosemide 200 MG in 0.9 % Sodium Chloride 80 ML IVCONT (12:08)
[2024-05-26 12:27] LABS: VBG Base Excess 1.6 mmol/L; VBG HCO3 28 mmol/L (22-26); VBG pCO2 53 mmHg; VBG pH 7.32 (7.32-7.43); VBG pO2 46 mmHg
[2024-05-26 12:29] LABS: Venous Blood Gas Refer to POC result
[2024-05-26 12:46] LABS: B Type Natriuretic Peptide 3358 pg/mL (<100)
[2024-05-26 12:49] LABS: Anion Gap 25 (12-20); Blood Urea Nitrogen 76 mg/dL (9-16); Calcium 7.9 mg/dL (8.4-10.2); Carbon Dioxide 23 mmol/L (22-29); Chloride 93 mmol/L (96-108); Creatinine Clr Calc Pharmacy 24.8; Estimated Glomerular Filt Rate 16; Glucose Random 78 mg/dL (60-115); Magnesium 2.9 mg/dL (1.6-2.6); Potassium 5.8 mmol/L (3.3-5.1); Sodium 135 mmol/L (135-145)
--- NOTE | 2024-05-26 14:00 | MHC.CM.PN ---
Pt continues on BiPAP in ICU: will need surgical management of osteomyelitis to foot: transmet amp vs BKA. Will need to demonstrate improved stability before OR. CM to follow
[2024-05-26] MEDS: Sodium Bicarbonate 8.4% 150 MEQ in Dextrose 5 % 850 ML 100 MEQ IV (14:15)
[2024-05-26] MEDS: acetaZOLAMIDE sodium 500 MG VIAL 250 MG IVPUSH (14:19)
[2024-05-26] MEDS: Norepinephrine Bitartrate/D5W 8 MG/250 ML PLAST..BAG 9.44 MG IVCONT (16:42)
[2024-05-26 17:24] LABS: Glucose, Whole Blood 99 mg/dL (60-115)
[2024-05-26 18:04] LABS: VBG Base Excess 1.2 mmol/L; VBG HCO3 26 mmol/L (22-26); VBG pCO2 46 mmHg; VBG pH 7.36 (7.32-7.43); VBG pO2 98 mmHg
[2024-05-26 18:05] LABS: Venous Blood Gas Refer to POC result
[2024-05-26 18:24] LABS: Anion Gap 23 (12-20); Blood Urea Nitrogen 80 mg/dL (9-16); Calcium 8.5 mg/dL (8.4-10.2); Carbon Dioxide 24 mmol/L (22-29); Chloride 93 mmol/L (96-108); Estimated Glomerular Filt Rate 15; Glucose Random 106 mg/dL (60-115); Magnesium 2.8 mg/dL (1.6-2.6); Parathyroid Hormone Intact 442.8 pg/mL (8.7-77.1); Potassium 5.6 mmol/L (3.3-5.1); Sodium 134 mmol/L (135-145)
[2024-05-26 18:39] LABS: TSH reflex Free T4 1.78 uIU/mL (0.32-4.0)
--- NOTE | 2024-05-26 21:39 | P.CNID_ITS ---
History of Present Illness Data of Consult Service Date: 05/26/24 Requesting physician: Jordan Rojas Primary Care Provider: Phi Crisostomo, [facility]- HPI Reason for consult: concern over infection He presents with weakness and found to have hypotension. He had blood pressure 99/50. He has no leukocytosis or fever. He has echo 15-20% ejection fraction on echo and no vegetation noticed. He has ESR of 36. He has had reported ICD with sepsis in past and reimplantation. He is now on Levophed. He has foot CT OM head second MT and proximal phalanx second toe. 05/26 blood cultures pending but there have been negative 05/22 and 05/16/ Review of Systems 2 Review of Systems: Yes all other systems are reviewed and are negative [facility] Past Medical History Medical History Diabetic infection of left foot CHF (congestive heart failure) RIC (iron deficiency anemia) Nicotine dependence PAD (peripheral artery disease) Foot ulcer, left Acute on chronic HFrEF (heart failure with reduced ejection fraction) History of osteomyelitis 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 Diverticulosis Tubular adenoma of colon (~2017) History of COVID-19 Nicotine dependence, cigarettes, uncomplicated Hypertensive retinopathy Microhematuria ICD (implantable cardioverter-defibrillator) in place COPD (chronic obstructive pulmonary disease) KIMANI (obstructive sleep apnea) Sleep apnea CAD (coronary artery disease) Paroxysmal atrial fibrillation (~2016) Family History Family History Father Atherosclerosis Mother Cerebral aneurysm Maternal Grandmother Unknown family medical history Mother Cerebral hemorrhage Father Coronary artery disease Family history: reviewed and not pertinent Surgical History Surgical History History of amputation of left great toe History of cardiac cath History of ankle surgery History of implantable cardiac defibrillator (ICD) History of colonoscopy History of heart artery stent History of cardiac radiofrequency ablation History of cardioversion History of esophagogastroduodenoscopy History of umbilical hernia History of inguinal hernia Social History Social History Household Members: None Housing: House Are you a primary child care lead teacher to a significant other at home: No Do you presently have visiting nurse or other home services: Yes Alcohol intake: former Comment: refuses assistance OOB/high falls measures Patient Tobacco Use Status: Current everyday Tobacco user Tobacco use type: Cigarette Cigarette Packs Per Day: 1 Cigarettes Per Day: 2 Years Smoked: (current smoker - onset 14yo, 1ppd x 43yrs, 40pyh) e-Cigarette/Vaping Use: Never Used Second Hand Smoke Exposure: Yes Advance Directives Date on File: 07/09/21 service: No Current occupational status: unemployed and disabled Current occupation: rt handed Cognitive needs: No Hearing needs: No Vision needs: Yes Meds Allergies Allergy/AdvReac Type Severity Reaction Status Date / Time No Known Allergies Allergy Verified 05/22/24 14:37 [No Known Allergies*] Active Medications: Current Medications Albuterol Sulfate (Albuterol Sulfate (0.083%) 2.5 Mg/3 Ml Vial.Neb) 2.5 mg INHALE RQ4H [facility] Last Admin: 05/26/24 20:26 Dose: 2.5 mg Fluticasone/Vilanterol (Fluticasone/Vilanterol 100/25 Blst.W.Dev) 1 puff INHALE RDAILY [facility] Last Admin: 05/26/24 07:40 Dose: Not Given Glucose (Glucose Gel 15 Gm Gel..Gram.) 15 gm PO Q15M PRN; Protocol PRN Reason: per Hypoglycemia Standing Ord. Dextrose (D10) 250 mls @ 750 mls/hr IV Q15M PRN; Protocol PRN Reason: per Hypoglycemia Standing Ord. Last Infusion: 05/25/24 08:59 Dose: Infused Norepinephrine Bitartrate (Levophed) 8 mg in 250 mls @ 0 mls/hr IVCONT .Q0M MARILEE; Protocol Last Titration: 05/26/24 20:32 Dose: 0.07 mcg/kg/min, 13.22 mls/hr Daptomycin 500 mg/ Sodium (Chloride) 60 mls @ 96.644 mls/hr IV Q48H [facility] Last Infusion: 05/26/24 12:17 Dose: Infused Furosemide 200 mg/ Sodium (Chloride) 100 mls @ 10 mls/hr IVCONT .Q10H [facility] Last Infusion: 05/26/24 19:34 Dose: 20 mg/hr, 10 mls/hr Sodium Bicarbonate 150 meq/ (Dextrose) 1,000 mls @ 75 mls/hr IV .[id number] [facility] Last Infusion: 05/26/24 19:34 Dose: 75 mls/hr Insulin Glargine (Insulin Glargine,Hum.Rec.Anlog 100 Unit/Ml 10 Ml Vial) 17 unit SUBCUT BEDTIME [facility] Last Admin: 05/25/24 22:36 Dose: Not Given Insulin Human Lispro (Insulin Lispro 100 Unit/Ml 3 Ml Vial) 0 unit SUBCUT Q6H [facility]; Protocol Last Admin: 05/26/24 17:20 Dose: Not Given Meropenem (Meropenem 1 Gm Vial) 1 gm IV Q12H [facility] Last Admin: 05/26/24 10:38 Dose: 1 gm Sevelamer Carbonate (Sevelamer Carbonate Tablet 800 Mg Tablet) 1,600 mg PO TID [facility] Last Admin: 05/26/24 20:12 Dose: Not Given Sodium Chloride (0.9 % Sodium Chloride Flush 3 Ml Syringe) 3 ml IVFLUSH QSHIFT [facility] Last Admin: 05/26/24 16:43 Dose: 3 ml Home Medications ?Medication ?Instructions ?Recorded ?Confirmed ?Last Taken ?Type colchicine 0.6 mg tablet 0.6 mg PO DAILY 11/18/23 05/23/24 05/22/24 History insulin glargine 100 unit/mL (3 17 unit subcut BEDTIME 11/18/23 05/23/24 05/22/24 History mL) subcutaneous pen (Lantus Solostar U-100 Insulin) insulin lispro 100 unit/mL 7 unit subcut TIDAC 11/18/23 05/23/24 05/22/24 History subcutaneous solution albuterol sulfate 2.5 mg/3 mL 2.5 mg inhalation Q6H PRN 03/23/24 05/23/24 Unknown History (0.083 %) solution for nebulization Shortness Of Breath Or Wheezing apixaban 5 mg tablet (Eliquis) 5 mg PO BID 03/23/24 05/23/24 05/22/24 History empagliflozin 10 mg tablet 10 mg PO DAILY 03/23/24 05/23/24 05/22/24 History (Jardiance) fluticasone propionate 45 2 puff inhalation BID 03/23/24 05/23/24 05/22/24 History mcg-salmeterol 21 mcg/actuation HFA inhaler (Advair HFA) sennosides 8.6 mg tablet (senna) 17.2 mg PO BEDTIME 03/23/24 05/23/24 05/22/24 History Physical Exam 2 Vital Signs: Vital Signs: Last Vital Signs Temp 99.3 F 05/26/24 21:00 Pulse 71 05/26/24 21:00 Resp 15 05/26/24 21:00 BP 114/57 L 05/26/24 21:00 Pulse Ox 94 05/26/24 21:00 O2 Del Method BiPAP 05/26/24 21:00 O2 Flow Rate 2 05/26/24 16:00 FiO2 28 05/26/24 21:00 BMI result Body Mass Index 31.0 Const: General: cooperative HEENT: Head: Yes normal to inspection Face and sinus: Yes normal facial exam Mouth: Normal oral and palatal mucosa present Teeth and gingiva: d entition normal Eyes: General: appearance normal, both eyes and all related structures P upils: Equal, round and reactive pupils present Resp: Effort & Inspection: normal respiratory effort Cardio: Rate: regular rate Rhythm: regular rhythm GI: Palpation (GI): Soft to palpation and nontender : General: Yes no CVA tenderness Back/Spine/Pelvis: Back: no CVA tenderness Skin: General skin exam: no rashes or lesions noted Neuro: General: moves all extremities Cranial nerves: Yes Equal, round and reactive pupils present Extrem: Other: chronic ulcer head second MT pulses appropriate Psych: Appearance: grossly normal Results Labs 05/26/24 05:32 05/26/24 17:56 Labs: Short CBC 05/26/24 Range/Units 05:32 WBC 9.9 (4.8-10.8) X10*3/uL Hgb 9.9 L (14.0-18.0) g/dl Hct 32.5 L (42.0-52.0) % Plt Count 271 D (160-400) X10*3/uL BMP 05/26/24 05/26/24 05/26/24 05:32 12:15 17:56 Sodium 134 L 135 134 L Potassium 5.9 H 5.8 H 5.6 H Chloride 92 L 93 L 93 L Carbon Dioxide 24 BUN 73 H 76 H 80 H Creatinine 3.90 H 3.82 H 4.12 H* Calcium 8.2 L 7.9 L 8.5 D Urine 05/26/24 Range/Units 10:31 Urine Color Dark Yellow Urine Appearance Cloudy Urine pH 5.0 (5.0-9.0) Ur Specific [place] 1.025 (1.005-1.025) Urine Protein 100 (2+) H (Neg-Trace) mg/dL Urine Glucose (UA) Negative (Negative) mg/dL Microbiology Microbiology Results: Microbiology 05/22/24 21:39 Blood - Venous Blood Culture - Preliminary No growth after 48 hours. 05/22/24 21:39 Blood - Venous Blood Culture - Preliminary No growth after 48 hours. Assessment and Plan (1) Diabetic infection of left foot: Status: Acute (2) Osteomyelitis: Status: Acute Plan It appears that patient has hypotension and low ejection fraction but cannot find evidence of infection like blood cultures are negative as well as WBC normal at 8 and no temperature above 99.3 and ESR of 36. OM appears old and chronic with prior removal of great toe left. There is some superficial cellulitis however at foot. Would stop Merem and Daptomycin as no resistant organism and actually no organism at all found. Piperacillin/tazobactam for some cellulitis left foot. Stop rechecking blood cultures as all negative.
[2024-05-26 21:41] LABS: Glucose, Whole Blood 126 mg/dL (60-115)
[2024-05-26] MEDS: Insulin Glargine,Hum.rec.anlog 100 UNIT/ML 10 ML VIAL 17 UNIT SUBCUT (21:43)
[2024-05-26 23:44] LABS: Glucose, Whole Blood 142 mg/dL (60-115)
[2024-05-26] MEDS: Furosemide 200 MG in 0.9 % Sodium Chloride 80 ML 10 MG IVCONT (23:49)
[2024-05-27] VITALS (36 sets, daily range): BP systolic 100–130; BP diastolic 47–67; PULSE 68–78; RESP 9–21; TEMP 37.1–37.7; O2SAT 93–966; BMI 30.8
[2024-05-27] MEDS: Albuterol Sulfate (0.083%) 2.5 MG/3 ML VIAL.NEB INHALE ×6 (00:42→20:41)
[2024-05-27] MEDS: Sodium Bicarbonate 8.4% 150 MEQ in Dextrose 5 % 850 ML 75 MEQ IV ×2 (01:00→14:32)
[2024-05-27 05:29] LABS: VBG Base Excess 5.6 mmol/L; VBG HCO3 32 mmol/L (22-26); VBG pCO2 56 mmHg; VBG pH 7.36 (7.32-7.43); VBG pO2 57 mmHg
[2024-05-27 05:32] LABS: Basophils Absolute Auto 0.1 X10*3/uL (0.0-0.2); Basophils Percent Auto 1.1 % (0-2); Eosinophils Absolute Auto 0.9 X10*3/uL (0.0-0.4); Eosinophils Percent Auto 9.2 % (0-4); Hematocrit 33.3 % (42.0-52.0); Hemoglobin 10.4 g/dl (14.0-18.0); Imm Gran Abs Auto 0.07 X10*3/uL (0.00-0.03); Imm Gran Pct Auto 0.7 % (0.0-0.4); Lymphocytes Absolute Auto 1.1 X10*3/uL (1.2-4.9); Lymphocytes Percent Auto 10.6 % (20-40); MANUAL DIFF FLAG NO; Mean Corpuscular HGB Conc 31.2 g/dl (31.0-36.0); Mean Corpuscular Volume 76.7 fL (80.0-98.0); Mean Platelet Volume 10.1 fL (9.4-12.4); Monocytes Absolute Auto 0.9 X10*3/uL (0.1-1.2); Monocytes Percent Auto 9.4 % (2-11); NRBC Pct Auto 0.3 /100WBC (0.0-0.2); Neutrophils Absolute Auto 6.9 x10*3/uL (2.0-8.3); Platelet Count 252 X10*3/uL (160-400); Red Blood Count 4.34 X10*6/uL (4.60-5.80); Red Cell Distribution Width 24.5 % (11.0-16.0); White Blood Count 9.9 X10*3/uL (4.8-10.8)
[2024-05-27 05:34] LABS: Venous Blood Gas Refer to POC result
[2024-05-27 05:53] LABS: Anion Gap 20 (12-20); Blood Urea Nitrogen 89 mg/dL (9-16); Calcium 7.1 mg/dL (8.4-10.2); Carbon Dioxide 29 mmol/L (22-29); Chloride 92 mmol/L (96-108); Creatinine Clr Calc Pharmacy 25.5; Estimated Glomerular Filt Rate 17; Glucose Random 155 mg/dL (60-115); Magnesium 2.8 mg/dL (1.6-2.6); Phosphorus 8.6 mg/dL (2.7-4.5); Potassium 4.5 mmol/L (3.3-5.1); Sodium 136 mmol/L (135-145)
--- NOTE | 2024-05-27 08:09 | P.PNCC_ITS ---
Subjective Subjective Date of Service: 05/27/24 Interval History: no significant overnight event; some improvement in renal insufficiency Critical Care Time (minutes): 60 Physical Exam 2 Vital Signs: Vital Signs: Last Vital Signs Temp 99.3 F 05/27/24 07:00 Pulse 72 05/27/24 07:43 Resp 20 05/27/24 07:45 BP 113/62 05/27/24 07:00 Pulse Ox 96 05/27/24 07:00 O2 Del Method BiPAP 05/27/24 07:00 O2 Flow Rate 2 05/26/24 16:00 FiO2 28 05/27/24 07:00 BMI result Body Mass Index 30.8 Const: Other: appreciable encephalopathic General: no acute distress, well developed, awake and Physically active HEENT: Head: Yes normal to inspection, Yes normocephalic and Yes atraumatic Eyes: General: appearance normal, both eyes and all related structures Neck: Neck: Yes normal visual inspection, Yes full ROM, Yes no meningeal signs, Yes trachea midline and Yes supple Chest: Chest palpation & inspection: normal inspection of the chest Resp: Other: no appreciable rales, rhonchi, wheezing Effort & Inspection: normal respiratory effort Cardio: Rate: regular rate Rhythm: abnormal rhythm GI: Inspection: Yes normal to inspection, No Abdominal wall edema and No distended Palpation (GI): Soft to palpation, not firm, nontender, no guarding and not rigid Skin: General skin exam: no rashes or lesions noted Neuro: General: tone normal, moves all extremities, no meningeal signs and no focal motor deficits Extrem: Other: 1+ pitting edema to bilateral shins, R u pper extremity General: Yes normal to inspection, Yes full ROM and Yes capillary refill normal Psych: Other: unable to assess Objective Data Labs 05/27/24 05:22 05/27/24 05:22 Labs: Laboratory Results - last 24 hr 05/26/24 05/26/24 05/26/24 09:53 10:31 11:20 WBC RBC Hgb Hct MCV MCH MCHC RDW Plt Count MPV Immature Gran % (Auto) Neut % (Auto) Lymph % (Auto) [place] % (Auto) Eos % (Auto) Baso % (Auto) Lymph # (Auto) [place] # (Auto) Eos # (Auto) Baso # (Auto) Abs Immat Gran (auto) Absolute Neuts (auto) Absolute Nucleated RBC Nucleated RBC % (auto) VBG pH VBG pCO2 VBG pO2 VBG HCO3 VBG O2 Saturation VBG Base Excess Sodium Potassium Chloride Carbon Dioxide Anion Gap BUN Creatinine Estim Creat Clear Calc Estimated GFR POC Glucose 73 Random Glucose Lactic Acid 1.9 Calcium Phosphorus Magnesium B-Natriuretic Peptide TSH PTH Intact Urine Color Dark Yellow Urine Appearance Cloudy Urine pH 5.0 Ur Specific [place] 1.025 Urine Protein 100 (2+) H Urine Glucose (UA) Negative Urine Ketones Trace Urine Blood Negative Urine Nitrite Negative Ur Leukocyte Esterase Trace H Urine RBC 0-2 Urine WBC 0-5 Ur Squamous Epith Cells 0-2 Urine Bacteria None Seen Hyaline Casts 05-1705/26/24 05/26/24 05/26/24 12:15 12:23 17:19 WBC RBC Hgb Hct MCV MCH MCHC RDW Plt Count MPV Immature Gran % (Auto) Neut % (Auto) Lymph % (Auto) [place] % (Auto) Eos % (Auto) Baso % (Auto) Lymph # (Auto) [place] # (Auto) Eos # (Auto) Baso # (Auto) Abs Immat Gran (auto) Absolute Neuts (auto) Absolute Nucleated RBC Nucleated RBC % (auto) VBG pH 7.32 VBG pCO2 53 VBG pO2 46 VBG HCO3 28 H VBG O2 Saturation 64.0 VBG Base Excess 1.6 Sodium 135 Potassium 5.8 H Chloride 93 L Carbon Dioxide 23 Anion Gap 25 H BUN 76 H Creatinine 3.82 H Estim Creat Clear Calc 24.8 Estimated GFR 16 POC Glucose 99 Random Glucose 78 Lactic Acid Calcium 7.9 L Phosphorus 10.0 H Magnesium 2.9 H B-Natriuretic Peptide 3358 H TSH PTH Intact Urine Color Urine Appearance Urine pH Ur Specific [place] Urine Protein Urine Glucose (UA) Urine Ketones Urine Blood Urine Nitrite Ur Leukocyte Esterase Urine RBC Urine WBC Ur Squamous Epith Cells Urine Bacteria Hyaline Casts 05/26/24 05/26/24 05/26/24 17:56 18:00 21:37 WBC RBC Hgb Hct MCV MCH MCHC RDW Plt Count MPV Immature Gran % (Auto) Neut % (Auto) Lymph % (Auto) [place] % (Auto) Eos % (Auto) Baso % (Auto) Lymph # (Auto) [place] # (Auto) Eos # (Auto) Baso # (Auto) Abs Immat Gran (auto) Absolute Neuts (auto) Absolute Nucleated RBC Nucleated RBC % (auto) VBG pH 7.36 VBG pCO2 46 VBG pO2 98 VBG HCO3 26 VBG O2 Saturation 99.0 VBG Base Excess 1.2 Sodium 134 L Potassium 5.6 H Chloride 93 L Carbon Dioxide 24 Anion Gap 23 H BUN 80 H Creatinine 4.12 H* Estim Creat Clear Calc 23.0 Estimated GFR 15 POC Glucose 126 H Random Glucose 106 Lactic Acid Calcium 8.5 D Phosphorus 10.0 H Magnesium 2.8 H B-Natriuretic Peptide TSH 1.78 PTH Intact 442.8 H Urine Color Urine Appearance Urine pH Ur Specific [place] Urine Protein Urine Glucose (UA) Urine Ketones Urine Blood Urine Nitrite Ur Leukocyte Esterase Urine RBC Urine WBC Ur Squamous Epith Cells Urine Bacteria Hyaline Casts 05/26/24 05/27/24 05/27/24 23:39 05:17 05:22 WBC 9.9 RBC 4.34 L Hgb 10.4 L Hct 33.3 L MCV 76.7 L MCH 24.0 L MCHC 31.2 RDW 24.5 H Plt Count 252 MPV 10.1 Immature Gran % (Auto) 0.7 H Neut % (Auto) 69.0 Lymph % (Auto) 10.6 L [place] % (Auto) 9.4 Eos % (Auto) 9.2 H Baso % (Auto) 1.1 Lymph # (Auto) 1.1 L [place] # (Auto) 0.9 Eos # (Auto) 0.9 H Baso # (Auto) 0.1 Abs Immat Gran (auto) 0.07 H Absolute Neuts (auto) 6.9 Absolute Nucleated RBC 0.030 H Nucleated RBC % (auto) 0.3 H VBG pH 7.36 VBG pCO2 56 VBG pO2 57 VBG HCO3 32 H VBG O2 Saturation 81.0 VBG Base Excess 5.6 Sodium 136 Potassium 4.5 Chloride 92 L Carbon Dioxide 29 Anion Gap 20 BUN 89 H Creatinine 3.72 H Estim Creat Clear Calc 25.5 Estimated GFR 17 POC Glucose 142 H Random Glucose 155 H Lactic Acid Calcium 7.1 L D Phosphorus 8.6 H Magnesium 2.8 H B-Natriuretic Peptide TSH PTH Intact Urine Color Urine Appearance Urine pH Ur Specific [place] Urine Protein Urine Glucose (UA) Urine Ketones Urine Blood Urine Nitrite Ur Leukocyte Esterase Urine RBC Urine WBC Ur Squamous Epith Cells Urine Bacteria Hyaline Casts Microbiology Microbiology Results: Microbiology 05/22/24 21:39 Blood - Venous Blood Culture - Preliminary No growth after 48 hours. 05/22/24 21:39 Blood - Venous Blood Culture - Preliminary No growth after 48 hours. Progress Note: A&P Assessment and plan (1) Acute exacerbation of chronic obstructive airways disease: Status: Acute (2) COPD (chronic obstructive pulmonary disease): Status: Acute (3) KIMANI (obstructive sleep apnea): Status: Acute (4) Congestive heart failure: Status: Acute (5) Acute renal insufficiency: Status: Acute (6) Osteomyelitis of second toe of left foot: Status: Acute Plan Patient?is a 58 Y M w/ insulin-dependent diabetes mellitus c/b chronic L foot ulcer c/b osteomyelitis, coronary artery disease s/p PCI, c/b HFrEF, paroxysmal atrial fibrillation on apixaban, COPD, KIMANI on CPAP, presenting initially to emergency department on 05/22 w/ acute on chronic L foot ulcer infection, admitted to medicine pending?amputation; on 05/26 AM, patient w/ acute on chronic hypercarbic respiratory failure, placed on BuPAP N:?encephalopathy, likely toxic-metabolic and multi-factorial, d/t hypercarbia, uremia, stable CV: norepinephrine gtt to augment blood pressure for diuresis; coronary artery disease s/p PCI on aspirin, HFrEF, paroxysmal atrial fibrillation on apixaban, though holding for procedural planning R: acute on chronic hypercarbic respiratory failure, on BiPAP; COPD, KIMANI on CPAP; possibly needs more non-invasive support at night, sleep study ordered GI: no acute issues; NPO while on BiPAP : acute on chronic renal?insufficiency, c/b uremia, judicious use of IV fluids and diuretics; to closely monitor electrolytes, renal indices H: no acute issues; chemical DVT prophylaxis ID: acute on chronic L foot ulcer c/b osteomyelitis, daptomycin, meropenem pending possible amputation E: insulin-dependent diabetes mellitus; insulin regimen Quality Stroke Does the patient have a stroke diagnosis?: No VTE Prior VTE?: No VTE Risk Level:: Medical - moderate - high VTE Device Contraindication: N/A - Device Ordered VTE Drug Contraindication: Treatment Not Tolerated
[2024-05-27] MEDS: Calcium Gluconate/NaCl,Iso-Osm 1 GM/50 ML PLAST..BAG IV ×2 (08:28→19:49)
[2024-05-27] MEDS: 0.9 % Sodium Chloride Flush 3 ML SYRINGE IVFLUSH ×2 (08:36→17:59)
[2024-05-27] MEDS: Heparin Sodium,Porcine 5,000 UNIT/ML VIAL 5000 UNIT SUBCUT ×2 (08:38→18:00)
[2024-05-27] MEDS: Meropenem 1 GM VIAL IV ×2 (10:17→21:47)
[2024-05-27] MEDS: Furosemide 200 MG in 0.9 % Sodium Chloride 80 ML 10 MG IVCONT ×2 (10:29→19:48)
[2024-05-27] MEDS: Norepinephrine Bitartrate/D5W 8 MG/250 ML PLAST..BAG 9.44 MG IVCONT (11:57)
[2024-05-27 12:04] LABS: Glucose, Whole Blood 162 mg/dL (60-115)
[2024-05-27] MEDS: Insulin Lispro 100 UNIT/ML 3 ML VIAL SUBCUT ×2 (12:31→17:59)
[2024-05-27 17:56] LABS: Glucose, Whole Blood 159 mg/dL (60-115)
[2024-05-27 18:46] LABS: Anion Gap 18 (12-20); Blood Urea Nitrogen 82 mg/dL (9-16); Calcium 7.8 mg/dL (8.4-10.2); Carbon Dioxide 33 mmol/L (22-29); Chloride 94 mmol/L (96-108); Creatinine Clr Calc Pharmacy 34.3; Estimated Glomerular Filt Rate 24; Glucose Random 172 mg/dL (60-115); Magnesium 2.6 mg/dL (1.6-2.6); Phosphorus 7.3 mg/dL (2.7-4.5); Potassium 3.8 mmol/L (3.3-5.1); Sodium 141 mmol/L (135-145)
[2024-05-27 20:45] LABS: Glucose, Whole Blood 133 mg/dL (60-115)
[2024-05-27] MEDS: Insulin Glargine,Hum.rec.anlog 100 UNIT/ML 10 ML VIAL 17 UNIT SUBCUT (20:50)
[2024-05-28] VITALS (35 sets, daily range): BP systolic 95–127; BP diastolic 40–89; PULSE 64–81; RESP 10–22; TEMP 36.8–37.8; O2SAT 91–100; BMI 30.3
[2024-05-28] MEDS: Albuterol Sulfate (0.083%) 2.5 MG/3 ML VIAL.NEB INHALE ×6 (00:16→21:01)
[2024-05-28 00:37] LABS: Glucose, Whole Blood 109 mg/dL (60-115)
[2024-05-28] MEDS: 0.9 % Sodium Chloride Flush 3 ML SYRINGE IVFLUSH ×4 (01:00→23:58)
[2024-05-28] MEDS: Heparin Sodium,Porcine 5,000 UNIT/ML VIAL 5000 UNIT SUBCUT ×3 (01:55→17:02)
[2024-05-28] MEDS: Acetaminophen 1,000 MG/100 ML PIGGYBACK 400 MG IV (05:00)
[2024-05-28] MEDS: Furosemide 200 MG in 0.9 % Sodium Chloride 80 ML 10 MG IVCONT ×3 (05:00→23:56)
[2024-05-28 05:19] LABS: VBG Base Excess 15.8 mmol/L; VBG HCO3 42 mmol/L (22-26); VBG pCO2 59 mmHg; VBG pH 7.46 (7.32-7.43); VBG pO2 42 mmHg
[2024-05-28 05:51] LABS: MANUAL DIFF FLAG NO
[2024-05-28 05:52] LABS: Basophils Absolute Auto 0.1 X10*3/uL (0.0-0.2); Eosinophils Absolute Auto 1.4 X10*3/uL (0.0-0.4); Hemoglobin 10.4 g/dl (14.0-18.0); Imm Gran Abs Auto 0.04 X10*3/uL (0.00-0.03); Imm Gran Pct Auto 0.5 % (0.0-0.4); Lymphocytes Absolute Auto 0.9 X10*3/uL (1.2-4.9); Lymphocytes Percent Auto 11.2 % (20-40); Mean Corpuscular HGB Conc 29.7 g/dl (31.0-36.0); Mean Corpuscular Hemoglobin 23.5 pg (27.0-33.0); Mean Platelet Volume 10.1 fL (9.4-12.4); Monocytes Absolute Auto 0.9 X10*3/uL (0.1-1.2); Monocytes Percent Auto 10.7 % (2-11); Neutrophils Absolute Auto 4.9 x10*3/uL (2.0-8.3); Neutrophils Percent Auto 59.6 % (45-73); Platelet Count 234 X10*3/uL (160-400); Red Blood Count 4.43 X10*6/uL (4.60-5.80); Red Cell Distribution Width 25.1 % (11.0-16.0); White Blood Count 8.2 X10*3/uL (4.8-10.8)
[2024-05-28 06:12] LABS: Anion Gap 20 (12-20); Blood Urea Nitrogen 71 mg/dL (9-16); Calcium 8.3 mg/dL (8.4-10.2); Carbon Dioxide 37 mmol/L (22-29); Chloride 94 mmol/L (96-108); Creatinine Clr Calc Pharmacy 44.7; Estimated Glomerular Filt Rate 32; Glucose Random 101 mg/dL (60-115); Magnesium 2.5 mg/dL (1.6-2.6); Phosphorus 5.9 mg/dL (2.7-4.5); Sodium 147 mmol/L (135-145)
[2024-05-28 06:13] LABS: Alanine Aminotransferase 601 U/L (0-40); Albumin Level 3.1 g/dL (3.5-5.0); Alkaline Phosphatase 109 U/L (39-117); Anion Gap 18 (12-20); Aspartate Amino Transferase 363 U/L (5-37); Blood Urea Nitrogen 70 mg/dL (9-16); Calcium 8.1 mg/dL (8.4-10.2); Carbon Dioxide 37 mmol/L (22-29); Chloride 95 mmol/L (96-108); Creatinine Clr Calc Pharmacy 44.9; Estimated Glomerular Filt Rate 33; Glucose Random 101 mg/dL (60-115); Potassium 4.2 mmol/L (3.3-5.1); Sodium 146 mmol/L (135-145); Total Protein 6.4 g/dL (6.5-8.0)
[2024-05-28 06:56] LABS: Ammonia 42 umol/L (13-55)
[2024-05-28 07:32] LABS: Venous Blood Gas Refer to POC result
[2024-05-28] MEDS: Fluticasone/Vilanterol 100/25 BLST.W.DEV 1 PUFF INHALE (07:52)
--- NOTE | 2024-05-28 08:37 | P.PNCC_ITS ---
Subjective Subjective Date of Service: 05/28/24 Interval History: interval improvement acute renal insufficiency and encephalopathy Critical Care Time (minutes): 60 Physical Exam 2 Vital Signs: Vital Signs: Last Vital Signs Temp 98.2 F 05/28/24 06:00 Pulse 64 05/28/24 07:52 Resp 12 05/28/24 07:52 BP 111/59 L 05/28/24 06:00 Pulse Ox 95 05/28/24 06:00 O2 Del Method BiPAP 05/28/24 06:00 O2 Flow Rate 2 05/28/24 04:00 FiO2 28 05/28/24 06:00 Oxygen Flow Rate 28 05/27/24 12:00 BMI result Body Mass Index 30.3 Const: General: cooperative, healthy appearing, comfortable, no acute distress, well developed, alert, awake and Physically active O rientation/consciousness: patient oriented x3 HEENT: Head: Yes normal to inspection, Yes normocephalic and Yes atraumatic Eyes: General: appearance normal, both eyes and all related structures Neck: Neck: Yes normal visual inspection, Yes full ROM, Yes no meningeal signs, Yes trachea midline and Yes supple Chest: Chest palpation & inspection: normal inspection of the chest Resp: Other: some appreciable rhonchi; no appreciable rales, wheezing Effort & Inspection: normal respiratory effort Cardio: Rate: regular rate Rhythm: abnormal rhythm GI: Inspection: Yes normal to inspection, No Abdominal wall edema and No distended Palpation (GI): Soft to palpation, not firm, nontender, no guarding and not rigid Skin: General skin exam: no rashes or lesions noted Neuro: General: patient oriented x3, tone normal, moves all extremities, no meningeal signs and no focal motor deficits Extrem: Other: trace pitting edema to bilateral shins, R hand General: Yes normal to inspection, Yes full ROM and Yes capillary refill normal Psych: Appearance: grossly normal Objective Data Labs 05/28/24 05:03 05/28/24 05:03 Labs: Laboratory Results - last 24 hr 05/27/24 05/27/24 05/27/24 12:01 17:52 18:01 WBC RBC Hgb Hct MCV MCH MCHC RDW Plt Count MPV Immature Gran % (Auto) Neut % (Auto) Lymph % (Auto) [place] % (Auto) Eos % (Auto) Baso % (Auto) Lymph # (Auto) [place] # (Auto) Eos # (Auto) Baso # (Auto) Abs Immat Gran (auto) Absolute Neuts (auto) Absolute Nucleated RBC Nucleated RBC % (auto) VBG pH VBG pCO2 VBG pO2 VBG HCO3 VBG O2 Saturation VBG Base Excess Sodium 141 Potassium 3.8 Chloride 94 L Carbon Dioxide 33 H Anion Gap 18 BUN 82 H Creatinine 2.76 H Estim Creat Clear Calc 34.3 Estimated GFR 24 POC Glucose 162 H 159 H Random Glucose 172 H Calcium 7.8 L D Phosphorus 7.3 H Magnesium 2.6 Total Bilirubin AST ALT Alkaline Phosphatase Ammonia Total Protein Albumin 05/27/24 05/28/24 05/28/24 20:36 00:32 05:03 WBC 8.2 RBC 4.43 L Hgb 10.4 L Hct 35.0 L MCV 79.0 L MCH 23.5 L MCHC 29.7 L RDW 25.1 H Plt Count 234 MPV 10.1 Immature Gran % (Auto) 0.5 H Neut % (Auto) 59.6 Lymph % (Auto) 11.2 L [place] % (Auto) 10.7 Eos % (Auto) 17.0 H Baso % (Auto) 1.0 Lymph # (Auto) 0.9 L [place] # (Auto) 0.9 Eos # (Auto) 1.4 H Baso # (Auto) 0.1 Abs Immat Gran (auto) 0.04 H Absolute Neuts (auto) 4.9 Absolute Nucleated RBC 0.000 Nucleated RBC % (auto) 0.0 VBG pH VBG pCO2 VBG pO2 VBG HCO3 VBG O2 Saturation VBG Base Excess Sodium 147 H Potassium Chloride Carbon Dioxide Anion Gap BUN Creatinine Estim Creat Clear Calc Estimated GFR POC Glucose 133 H 109 Random Glucose Calcium Phosphorus Magnesium Total Bilirubin AST ALT Alkaline Phosphatase Ammonia Total Protein Albumin 05/28/24 05/28/24 05/28/24 05:03 05:03 05:03 WBC RBC Hgb Hct MCV MCH MCHC RDW Plt Count MPV Immature Gran % (Auto) Neut % (Auto) Lymph % (Auto) [place] % (Auto) Eos % (Auto) Baso % (Auto) Lymph # (Auto) [place] # (Auto) Eos # (Auto) Baso # (Auto) Abs Immat Gran (auto) Absolute Neuts (auto) Absolute Nucleated RBC Nucleated RBC % (auto) VBG pH VBG pCO2 VBG pO2 VBG HCO3 VBG O2 Saturation VBG Base Excess Sodium 146 H Potassium 4.0 4.2 Chloride 94 L 95 L Carbon Dioxide 37 H Anion Gap BUN Creatinine Estim Creat Clear Calc Estimated GFR POC Glucose Random Glucose Calcium Phosphorus Magnesium Total Bilirubin AST ALT Alkaline Phosphatase Ammonia Total Protein Albumin 05/28/24 05/28/24 05/28/24 05:03 05:03 05:03 WBC RBC Hgb Hct MCV MCH MCHC RDW Plt Count MPV Immature Gran % (Auto) Neut % (Auto) Lymph % (Auto) [place] % (Auto) Eos % (Auto) Baso % (Auto) Lymph # (Auto) [place] # (Auto) Eos # (Auto) Baso # (Auto) Abs Immat Gran (auto) Absolute Neuts (auto) Absolute Nucleated RBC Nucleated RBC % (auto) VBG pH VBG pCO2 VBG pO2 VBG HCO3 VBG O2 Saturation VBG Base Excess Sodium Potassium Chloride Carbon Dioxide 37 H Anion Gap 20 18 BUN 71 H 70 H Creatinine 2.10 H Estim Creat Clear Calc Estimated GFR POC Glucose Random Glucose Calcium Phosphorus Magnesium Total Bilirubin AST ALT Alkaline Phosphatase Ammonia Total Protein Albumin 05/28/24 05/28/24 05/28/24 05:03 05:03 05:03 WBC RBC Hgb Hct MCV MCH MCHC RDW Plt Count MPV Immature Gran % (Auto) Neut % (Auto) Lymph % (Auto) [place] % (Auto) Eos % (Auto) Baso % (Auto) Lymph # (Auto) [place] # (Auto) Eos # (Auto) Baso # (Auto) Abs Immat Gran (auto) Absolute Neuts (auto) Absolute Nucleated RBC Nucleated RBC % (auto) VBG pH VBG pCO2 VBG pO2 VBG HCO3 VBG O2 Saturation VBG Base Excess Sodium Potassium Chloride Carbon Dioxide Anion Gap BUN Creatinine 2.09 H Estim Creat Clear Calc 44.7 44.9 Estimated GFR 32 33 POC Glucose Random Glucose 101 Calcium Phosphorus Magnesium Total Bilirubin AST ALT Alkaline Phosphatase Ammonia Total Protein Albumin 05/28/24 05/28/24 05/28/24 05:03 05:03 05:08 WBC RBC Hgb Hct MCV MCH MCHC RDW Plt Count MPV Immature Gran % (Auto) Neut % (Auto) Lymph % (Auto) [place] % (Auto) Eos % (Auto) Baso % (Auto) Lymph # (Auto) [place] # (Auto) Eos # (Auto) Baso # (Auto) Abs Immat Gran (auto) Absolute Neuts (auto) Absolute Nucleated RBC Nucleated RBC % (auto) VBG pH 7.46 H VBG pCO2 59 VBG pO2 42 VBG HCO3 42 H VBG O2 Saturation 64.0 VBG Base Excess 15.8 Sodium Potassium Chloride Carbon Dioxide Anion Gap BUN Creatinine Estim Creat Clear Calc Estimated GFR POC Glucose Random Glucose 101 Calcium 8.3 L D 8.1 L Phosphorus 5.9 H Magnesium 2.5 Total Bilirubin 2.0 H AST 363 H ALT 601 H Alkaline Phosphatase 109 Ammonia Total Protein 6.4 L Albumin 3.1 L 05/28/24 06:40 WBC RBC Hgb Hct MCV MCH MCHC RDW Plt Count MPV Immature Gran % (Auto) Neut % (Auto) Lymph % (Auto) [place] % (Auto) Eos % (Auto) Baso % (Auto) Lymph # (Auto) [place] # (Auto) Eos # (Auto) Baso # (Auto) Abs Immat Gran (auto) Absolute Neuts (auto) Absolute Nucleated RBC Nucleated RBC % (auto) VBG pH VBG pCO2 VBG pO2 VBG HCO3 VBG O2 Saturation VBG Base Excess Sodium Potassium Chloride Carbon Dioxide Anion Gap BUN Creatinine Estim Creat Clear Calc Estimated GFR POC Glucose Random Glucose Calcium Phosphorus Magnesium Total Bilirubin AST ALT Alkaline Phosphatase Ammonia 42 Total Protein Albumin Microbiology Microbiology Results: Microbiology 05/22/24 21:39 Blood - Venous Blood Culture - Final No growth after 5 days. 05/22/24 21:39 Blood - Venous Blood Culture - Final No growth after 5 days. 05/26/24 09:53 Blood - Venous Blood Culture - Preliminary No growth after 24 hours. 05/26/24 09:53 Blood - Venous Blood Culture - Preliminary No growth after 24 hours. Progress Note: A&P Assessment and plan (1) Acute renal insufficiency: Status: Acute (2) KIMANI (obstructive sleep apnea): Status: Acute (3) COPD (chronic obstructive pulmonary disease): Status: Acute (4) Osteomyelitis of second toe of left foot: Status: Acute Plan Patient?is a 58 Y M w/ insulin-dependent diabetes mellitus c/b chronic L foot ulcer c/b osteomyelitis, coronary artery disease s/p PCI, c/b HFrEF, paroxysmal atrial fibrillation on apixaban, COPD, KIMANI on CPAP, presenting initially to emergency department on 05/22 w/ acute on chronic L foot ulcer infection, admitted to medicine pending?amputation; on 05/26 AM, patient w/ acute on chronic hypercarbic respiratory failure, placed on BuPAP N:?encephalopathy, likely toxic-metabolic and multi-factorial, d/t hypercarbia, uremia, improving CV: norepinephrine gtt to augment blood pressure for diuresis; coronary artery disease s/p PCI on aspirin, HFrEF, paroxysmal atrial fibrillation on apixaban, though holding for procedural planning R: acute on chronic hypercarbic respiratory failure, on BiPAP; COPD, KIMANI on CPAP; possibly needs more non-invasive support at night, sleep study ordered GI: no acute issues; NPO while on BiPAP : acute on chronic renal?insufficiency, c/b uremia, improving, judicious use of IV fluids and diuretics; to closely monitor electrolytes, renal indices H: no acute issues; chemical DVT prophylaxis ID: acute on chronic L foot ulcer c/b osteomyelitis, daptomycin, meropenem pending possible amputation E: insulin-dependent diabetes mellitus; insulin regimen Quality Stroke Does the patient have a stroke diagnosis?: No VTE Prior VTE?: No VTE Risk Level:: Medical - moderate - high VTE Device Contraindication: N/A - Device Ordered VTE Drug Contraindication: N/A - Med Ordered
[2024-05-28] MEDS: acetaZOLAMIDE sodium 500 MG VIAL IVPUSH (09:27)
[2024-05-28] MEDS: Calcium Gluconate/NaCl,Iso-Osm 1 GM/50 ML PLAST..BAG IV (09:28)
[2024-05-28] MEDS: Albumin Human 25 % 50 ML 100 ML IV (09:28)
[2024-05-28] MEDS: Meropenem 1 GM VIAL IV ×2 (09:28→21:28)
--- NOTE | 2024-05-28 11:33 | MHC.CM.PN ---
Pt remains in ICU: off Bipap on nasal cannula O2. Will need to demonstrate clinical stability before he can go to OR for a transmet amp vs BKA. Pt may need STR following his stay: he states he would like to wait for surgical outcomes before deciding. CM to follow
[2024-05-28] MEDS: Sevelamer Carbonate Tablet 800 MG TABLET 1600 MG PO ×2 (11:55→17:02)
[2024-05-28 11:56] LABS: Glucose, Whole Blood 119 mg/dL (60-115)
[2024-05-28] MEDS: DAPTOmycin 500 MG in 0.9 % Sodium Chloride 50 ML 96.6 MG IV (12:18)
[2024-05-28] MEDS: Norepinephrine Bitartrate/D5W 8 MG/250 ML PLAST..BAG 9.44 MG IVCONT (14:26)
[2024-05-28 17:01] LABS: Glucose, Whole Blood 170 mg/dL (60-115)
[2024-05-28] MEDS: Insulin Lispro 100 UNIT/ML 3 ML VIAL SUBCUT ×2 (17:02→21:31)
[2024-05-28 18:34] LABS: Anion Gap 17 (12-20); Blood Urea Nitrogen 53 mg/dL (9-16); Calcium 8.4 mg/dL (8.4-10.2); Carbon Dioxide 35 mmol/L (22-29); Chloride 93 mmol/L (96-108); Creatinine Clr Calc Pharmacy 56.6; Estimated Glomerular Filt Rate 42; Glucose Random 221 mg/dL (60-115); Magnesium 2.1 mg/dL (1.6-2.6); Phosphorus 4.3 mg/dL (2.7-4.5); Potassium 3.3 mmol/L (3.3-5.1); Sodium 142 mmol/L (135-145)
[2024-05-28] MEDS: Potassium Phosphate/NS 15 MMOL/250 ML PLAST..BAG 62.5 MMOL IV (19:47)
[2024-05-28 20:58] LABS: Glucose, Whole Blood 184 mg/dL (60-115)
[2024-05-28] MEDS: Insulin Glargine,Hum.rec.anlog 100 UNIT/ML 10 ML VIAL 17 UNIT SUBCUT (21:32)
[2024-05-29] VITALS (34 sets, daily range): BP systolic 90–128; BP diastolic 44–80; PULSE 67–85; RESP 15–22; TEMP 36.6–37.7; O2SAT 90–100; BMI 28.0
[2024-05-29] MEDS: Heparin Sodium,Porcine 5,000 UNIT/ML VIAL 5000 UNIT SUBCUT ×3 (00:01→17:45)
--- NOTE | 2024-05-29 01:08 | PC.RT ---
Pt refusing V60 will only use Home Unit; pt refusing nebs at this time
[2024-05-29] MEDS: LORazepam 2 MG/ML VIAL 0.5 MG IVPUSH ×2 (02:36→22:44)
[2024-05-29 05:25] LABS: VBG Base Excess 13.3 mmol/L; VBG HCO3 38 mmol/L (22-26); VBG pCO2 47 mmHg; VBG pH 7.51 (7.32-7.43); VBG pO2 43 mmHg
[2024-05-29 05:27] LABS: MANUAL DIFF FLAG NO
[2024-05-29 05:27] LABS: Venous Blood Gas Refer to POC result
[2024-05-29 05:29] LABS: Basophils Absolute Auto 0.1 X10*3/uL (0.0-0.2); Basophils Percent Auto 0.8 % (0-2); Eosinophils Absolute Auto 1.7 X10*3/uL (0.0-0.4); Eosinophils Percent Auto 17.9 % (0-4); Hematocrit 36.4 % (42.0-52.0); Hemoglobin 11.3 g/dl (14.0-18.0); Imm Gran Abs Auto 0.05 X10*3/uL (0.00-0.03); Imm Gran Pct Auto 0.5 % (0.0-0.4); Lymphocytes Absolute Auto 1.3 X10*3/uL (1.2-4.9); Mean Corpuscular Volume 77.4 fL (80.0-98.0); Mean Platelet Volume 9.9 fL (9.4-12.4); Monocytes Percent Auto 10.4 % (2-11); Neutrophils Absolute Auto 5.6 x10*3/uL (2.0-8.3); Neutrophils Percent Auto 57.4 % (45-73); Platelet Count 180 X10*3/uL (160-400); Red Cell Distribution Width 25.9 % (11.0-16.0); White Blood Count 9.7 X10*3/uL (4.8-10.8)
[2024-05-29 05:51] LABS: Anion Gap 16 (12-20); Blood Urea Nitrogen 47 mg/dL (9-16); Calcium 8.4 mg/dL (8.4-10.2); Carbon Dioxide 35 mmol/L (22-29); Chloride 96 mmol/L (96-108); Creatinine Clr Calc Pharmacy 71.7; Estimated Glomerular Filt Rate 56; Glucose Random 159 mg/dL (60-115); Phosphorus 3.9 mg/dL (2.7-4.5); Potassium 3.5 mmol/L (3.3-5.1); Sodium 143 mmol/L (135-145)
[2024-05-29 08:10] LABS: Glucose, Whole Blood 147 mg/dL (60-115)
--- NOTE | 2024-05-29 08:51 | P.CONNP_ITS ---
History of Present Illness Reason for Consult Consult date: 05/29/24 Chief Complaint Chief complaint: Left 2nd metatsrsal osteomyelitis History of Present Illness Narrative: This is a 58-year-old male with a history of atrial fibrillation on Eliquis, ischemic cardiomyopathy status post AICD, coronary artery disease status post PCI, COPD, KIMANI on CPAP, HFrEF, DMII. presented 05/22 with acute on chronic left foot ulcer infection- admitted for pending amputation. of note, has had multiple recent admissions for CHF exacerbation. 05/26, trasferred to ICU for acute on chronic hypercarbic respiratory failure Nephrology consulted for DECLAN last creatinine prior to admission on 05/17 was 1.24 05/22 creatinine 1.42, trending upward, peaked at 4.12 on 05/26, since then trending downward 05/29 creatinine is 1.31 pt is currently on a furosemide 20mg/hr continuous IV drip pt on norepinephrine drip to maintain adequate blood pressures daptomycin and meropenem for management of infection CT abdomen/pelvis 05/03 showed unremarkable kidneys/ureters without obstruction 05/28/24 abdominal US with unremarkable kidneys/ureters, no hydronephrosis/hydroureter Pt is somnolent at bedside. Review of Systems Review of Systems Yes Unobtainable due to mental status [facility] Past Medical History Medical History (Updated 05/29/24 @ 09:08 by Kaitlin Hoover, KULWINDER, INSPECTOR AND SORTER-) DECLAN (acute kidney injury) Diabetic infection of left foot CHF (congestive heart failure) RIC (iron deficiency anemia) Nicotine dependence PAD (peripheral artery disease) Foot ulcer, left Acute on chronic HFrEF (heart failure with reduced ejection fraction) History of osteomyelitis 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 Diverticulosis Tubular adenoma of colon (~2017) History of COVID-19 Nicotine dependence, cigarettes, uncomplicated Hypertensive retinopathy Microhematuria ICD (implantable cardioverter-defibrillator) in place COPD (chronic obstructive pulmonary disease) KIMANI (obstructive sleep apnea) Sleep apnea CAD (coronary artery disease) Paroxysmal atrial fibrillation (~2016) Family History Family History Father Atherosclerosis Mother Cerebral aneurysm Maternal Grandmother Unknown family medical history Mother Cerebral hemorrhage Father Coronary artery disease Family history: reviewed and not pertinent Surgical History Surgical History History of amputation of left great toe History of cardiac cath History of ankle surgery History of implantable cardiac defibrillator (ICD) History of colonoscopy History of heart artery stent History of cardiac radiofrequency ablation History of cardioversion History of esophagogastroduodenoscopy History of umbilical hernia History of inguinal hernia Social History Social History Household Members: None Housing: House Are you a primary career resource specialist to a significant other at home: No Do you presently have visiting nurse or other home services: Yes Alcohol intake: former Comment: refuses assistance OOB/high falls measures Patient Tobacco Use Status: Current everyday Tobacco user Tobacco use type: Cigarette Cigarette Packs Per Day: 1 Cigarettes Per Day: 2 Years Smoked: (current smoker - onset 14yo, 1ppd x 43yrs, 40pyh) e-Cigarette/Vaping Use: Never Used Second Hand Smoke Exposure: Yes Advance Directives Date on File: 07/09/21 service: No Current occupational status: unemployed and disabled Current occupation: rt handed Cognitive needs: No Hearing needs: No Vision needs: Yes Meds Allergies Allergy/AdvReac Type Severity Reaction Status Date / Time No Known Allergies Allergy Verified 05/22/24 14:37 [No Known Allergies*] Active Medications: Current Medications Albuterol Sulfate (Albuterol Sulfate (0.083%) 2.5 Mg/3 Ml Vial.Neb) 2.5 mg INHALE RQ4H WHILE AWAKE [facility] Last Admin: 05/29/24 07:46 Dose: Not Given Fluticasone/Vilanterol (Fluticasone/Vilanterol 100/25 Blst.W.Dev) 1 puff INHALE RDAILY [facility] Last Admin: 05/29/24 07:46 Dose: Not Given Glucose (Glucose Gel 15 Gm Gel..Gram.) 15 gm PO Q15M PRN; Protocol PRN Reason: per Hypoglycemia Standing Ord. Heparin Sodium (Porcine) (Heparin Sodium,Porcine 5,000 Unit/Ml Vial) 5,000 unit SUBCUT Q8H [facility] Last Admin: 05/29/24 00:01 Dose: 5,000 unit Dextrose (D10) 250 mls @ 750 mls/hr IV Q15M PRN; Protocol PRN Reason: per Hypoglycemia Standing Ord. Last Infusion: 05/25/24 08:59 Dose: Infused Norepinephrine Bitartrate (Levophed) 8 mg in 250 mls @ 0 mls/hr IVCONT .Q0M [facility]; Protocol Last Admin: 05/28/24 14:26 Dose: 0.05 mcg/kg/min, 9.44 mls/hr Daptomycin 500 mg/ Sodium (Chloride) 60 mls @ 96.644 mls/hr IV Q48H [facility] Last Infusion: 05/28/24 13:00 Dose: Infused Furosemide 200 mg/ Sodium (Chloride) 100 mls @ 10 mls/hr IVCONT .Q10H [facility] Last Admin: 05/28/24 23:56 Dose: 20 mg/hr, 10 mls/hr Insulin Glargine (Insulin Glargine,Hum.Rec.Anlog 100 Unit/Ml 10 Ml Vial) 17 unit SUBCUT BEDTIME [facility] Last Admin: 05/28/24 21:32 Dose: 17 unit Insulin Human Lispro (Insulin Lispro 100 Unit/Ml 3 Ml Vial) 0 unit SUBCUT QIDACHS [facility]; Protocol Last Admin: 05/29/24 07:38 Dose: Not Given Meropenem (Meropenem 1 Gm Vial) 1 gm IV Q12H [facility] Last Admin: 05/28/24 21:28 Dose: 1 gm Sodium Chloride (0.9 % Sodium Chloride Flush 3 Ml Syringe) 3 ml IVFLUSH QSHIFT [facility] Last Admin: 05/28/24 23:58 Dose: 3 ml Home Medications ?Medication ?Instructions ?Recorded ?Confirmed ?Last Taken ?Type colchicine 0.6 mg tablet 0.6 mg PO DAILY 11/18/23 05/23/24 05/22/24 History insulin glargine 100 unit/mL (3 17 unit subcut BEDTIME 11/18/23 05/23/24 05/22/24 History mL) subcutaneous pen (Lantus Solostar U-100 Insulin) insulin lispro 100 unit/mL 7 unit subcut TIDAC 11/18/23 05/23/24 05/22/24 History subcutaneous solution albuterol sulfate 2.5 mg/3 mL 2.5 mg inhalation Q6H PRN 03/23/24 05/23/24 Unknown History (0.083 %) solution for nebulization Shortness Of Breath Or Wheezing apixaban 5 mg tablet (Eliquis) 5 mg PO BID 03/23/24 05/23/24 05/22/24 History empagliflozin 10 mg tablet 10 mg PO DAILY 03/23/24 05/23/24 05/22/24 History (Jardiance) fluticasone propionate 45 2 puff inhalation BID 03/23/24 05/23/24 05/22/24 History mcg-salmeterol 21 mcg/actuation HFA inhaler (Advair HFA) sennosides 8.6 mg tablet (senna) 17.2 mg PO BEDTIME 03/23/24 05/23/24 05/22/24 History Physical Exam Vital Signs: Last Vital Signs Temp 98.2 F 05/29/24 08:00 Pulse 69 05/29/24 08:00 Resp 15 05/29/24 08:00 BP 119/65 05/29/24 08:00 Pulse Ox 96 05/29/24 08:00 O2 Del Method CPAP 05/29/24 08:00 O2 Flow Rate 3 05/29/24 08:00 FiO2 28 05/28/24 20:00 Oxygen Flow Rate 28 05/27/24 12:00 BMI result Body Mass Index 28.0 Const General: no acute distress and lethargic Orientation/consciousness: lethargic Neck Neck: Yes no JVD Resp Effort & Inspection: normal respiratory effort Auscultation: clear to auscultation bilaterally Cardio Jugular venous distension: no JVD Rate: regular rate Rhythm: regular rhythm Heart sounds: S1 normal heart sound present and S2 normal heart sound present GI Palpation (GI): Soft to palpation and nontender Skin Rashes: no rashes Wounds: wounds noted (left toe wound covered in gauze dressing. ) Extrem General: No edema Results Lab Results 05/29/24 05:21 05/29/24 05:21 Lab results: Chemistry 05/26/24 05/26/24 05/27/24 12:15 17:56 05:22 Sodium 135 134 L 136 Potassium 5.8 H 5.6 H 4.5 Carbon Dioxide 29 BUN 76 H 80 H 89 H Creatinine 3.82 H 4.12 H* 3.72 H Calcium 7.9 L 8.5 D 7.1 L D Phosphorus 10.0 H 10.0 H 8.6 H 05/27/24 05/28/24 05/28/24 18:01 05:03 05:03 Sodium 141 147 H 146 H Potassium 3.8 4.0 Carbon Dioxide 33 H BUN 82 H Creatinine 2.76 H Calcium 7.8 L D Phosphorus 7.3 H 05/28/24 05/28/24 05/28/24 05:03 05:03 05:03 Sodium Potassium 4.2 Carbon Dioxide 37 H 37 H BUN 71 H 70 H Creatinine 2.10 H Calcium Phosphorus 05/28/24 05/28/24 05/28/24 05:03 05:03 18:03 Sodium 142 Potassium 3.3 D Carbon Dioxide 35 H BUN 53 H Creatinine 2.09 H 1.66 H Calcium 8.3 L D 8.1 L 8.4 Phosphorus 5.9 H 4.3 05/29/24 05:21 Sodium 143 Potassium 3.5 Carbon Dioxide 35 H BUN 47 H Creatinine 1.31 Calcium 8.4 Phosphorus 3.9 Hematology 05/27/24 05/28/24 05/29/24 05:22 05:03 05:21 WBC 9.9 8.2 9.7 Hgb 10.4 L 10.4 L 11.3 L Plt Count 252 234 180 Urinalysis 05/26/24 10:31 Urine Color Dark Yellow Urine Appearance Cloudy Urine pH 5.0 Ur Specific [place] 1.025 Urine Protein 100 (2+) H Urine Glucose (UA) Negative Urine Ketones Trace Urine Blood Negative Urine Nitrite Negative Ur Leukocyte Esterase Trace H Urine RBC 0-2 Urine WBC 0-5 Ur Squamous Epith Cells 0-2 Hyaline Casts 11-20 Assessment and Plan (1) DECLAN (acute kidney injury): Status: Acute (2) Diabetic infection of left foot: Status: Acute (3) Congestive heart failure: Qualifiers: Heart failure chronicity: chronic Heart failure type: unspecified Q ualified Code(s): I50.9 - Heart failure, unspecified Status: Acute Plan DECLAN likely tubular injury secondary to CHF exacerbation given improvement with diuresis Improving continue diuresis, recommend keeping negative fluid balance, should reduce oral intake continue to monitor electrolytes and renal function daily continue to monitor I&O closely continue supportive care, will continue to follow Discussed with Dr Wesley Dixon Date of Service Date of Service: 05/29/24
[2024-05-29] MEDS: Furosemide 200 MG in 0.9 % Sodium Chloride 80 ML 10 MG IVCONT ×2 (09:28→19:33)
[2024-05-29] MEDS: Potassium Chloride Packet 20 MEQ PACKET 40 MEQ PO (09:30)
[2024-05-29] MEDS: Meropenem 1 GM VIAL IV ×2 (09:30→21:51)
[2024-05-29] MEDS: 0.9 % Sodium Chloride Flush 3 ML SYRINGE IVFLUSH ×3 (09:30→19:31)
--- NOTE | 2024-05-29 10:20 | MHC.CM.PN ---
Patient remains in ICU. Transitioned from Bipap to Cpap with 3LNC. Angiogram needed to determine if patient will need metatarsal amp or BKA amp. Possible angiogram 05/30. Will need PT eval for home safety after surgery. Continue to monitor for d/c needs.
--- NOTE | 2024-05-29 10:30 | P.PNCC_ITS ---
Subjective Subjective Date of Service: 05/29/24 Interval History: 58-year-old gentleman with underlying history of diabetes mellitus complicated by left diabetic foot ulcer and osteomyelitis, peripheral artery disease, COPD, AFib on anticoagulation, cardiomyopathy sleep apnea admitted on 05/22/2024 with worsening left foot pain and treated for diabetic foot ulcer with hospital course complicated by acute on chronic hypercapnic respiratory failure requiring BiPAP support and transfer to intensive care unit, sepsis requiring pressor support, metabolic encephalopathy, and renal failure. No events overnight. Renal function continues to improve. Critical Care Time (minutes): 60 Physical Exam 2 Vital Signs: Vital Signs: Last Vital Signs Temp 98.1 F 05/29/24 10:00 Pulse 76 05/29/24 10:00 Resp 18 05/29/24 10:00 BP 122/70 05/29/24 10:00 Pulse Ox 99 05/29/24 10:00 O2 Del Method Nasal Cannula 05/29/24 10:00 O2 Flow Rate 2 05/29/24 10:00 FiO2 28 05/28/24 20:00 Oxygen Flow Rate 28 05/27/24 12:00 BMI result Body Mass Index 28.0 Const: General: no acute distress, alert and awake Eyes: Sclerae: sclerae normal EOM: EOMs intact bilaterally Neck: Neck: Yes no lymphadenopathy, Yes trachea midline and Yes supple Resp: Effort & Inspection: normal respiratory effort and no respiratory distress Auscultation: clear to auscultation bilaterally Cardio: Rate: regular rate Rhythm: regular rhythm Heart sounds: no gallops, no murmurs and no rubs GI: Palpation (GI): Soft to palpation and Other GI palpation findings present ( Nontender) Auscultation: normal bowel sounds Extrem: General: No clubbing and No cyanosis (Trace bilateral) Objective Data Labs 05/29/24 05:21 05/29/24 05:21 Labs: Laboratory Results - last 24 hr 05/28/24 05/28/24 05/28/24 11:52 16:57 18:03 WBC RBC Hgb Hct MCV MCH MCHC RDW Plt Count MPV Immature Gran % (Auto) Neut % (Auto) Lymph % (Auto) [place] % (Auto) Eos % (Auto) Baso % (Auto) Lymph # (Auto) [place] # (Auto) Eos # (Auto) Baso # (Auto) Abs Immat Gran (auto) Absolute Neuts (auto) Absolute Nucleated RBC Nucleated RBC % (auto) VBG pH VBG pCO2 VBG pO2 VBG HCO3 VBG O2 Saturation VBG Base Excess Sodium 142 Potassium 3.3 D Chloride 93 L Carbon Dioxide 35 H Anion Gap 17 BUN 53 H Creatinine 1.66 H Estim Creat Clear Calc 56.6 Estimated GFR 42 POC Glucose 119 H 170 H Random Glucose 221 H Calcium 8.4 Phosphorus 4.3 Magnesium 2.1 05/28/24 05/29/24 05/29/24 20:53 05:15 05:21 WBC 9.7 RBC 4.70 Hgb 11.3 L Hct 36.4 L MCV 77.4 L MCH 24.0 L MCHC 31.0 RDW 25.9 H Plt Count 180 MPV 9.9 Immature Gran % (Auto) 0.5 H Neut % (Auto) 57.4 Lymph % (Auto) 13.0 L [place] % (Auto) 10.4 Eos % (Auto) 17.9 H Baso % (Auto) 0.8 Lymph # (Auto) 1.3 [place] # (Auto) 1.0 Eos # (Auto) 1.7 H Baso # (Auto) 0.1 Abs Immat Gran (auto) 0.05 H Absolute Neuts (auto) 5.6 Absolute Nucleated RBC 0.000 Nucleated RBC % (auto) 0.0 VBG pH 7.51 H VBG pCO2 47 VBG pO2 43 VBG HCO3 38 H VBG O2 Saturation 69.0 VBG Base Excess 13.3 Sodium 143 Potassium 3.5 Chloride 96 Carbon Dioxide 35 H Anion Gap 16 BUN 47 H Creatinine 1.31 Estim Creat Clear Calc 71.7 Estimated GFR 56 POC Glucose 184 H Random Glucose 159 H Calcium 8.4 Phosphorus 3.9 Magnesium 2.0 05/29/24 07:32 WBC RBC Hgb Hct MCV MCH MCHC RDW Plt Count MPV Immature Gran % (Auto) Neut % (Auto) Lymph % (Auto) [place] % (Auto) Eos % (Auto) Baso % (Auto) Lymph # (Auto) [place] # (Auto) Eos # (Auto) Baso # (Auto) Abs Immat Gran (auto) Absolute Neuts (auto) Absolute Nucleated RBC Nucleated RBC % (auto) VBG pH VBG pCO2 VBG pO2 VBG HCO3 VBG O2 Saturation VBG Base Excess Sodium Potassium Chloride Carbon Dioxide Anion Gap BUN Creatinine Estim Creat Clear Calc Estimated GFR POC Glucose 147 H Random Glucose Calcium Phosphorus Magnesium Microbiology Microbiology Results: Microbiology 05/26/24 09:53 Blood - Venous Blood Culture - Preliminary No growth after 48 hours. 05/26/24 09:53 Blood - Venous Blood Culture - Preliminary No growth after 48 hours. 05/22/24 21:39 Blood - Venous Blood Culture - Final No growth after 5 days. 05/22/24 21:39 Blood - Venous Blood Culture - Final No growth after 5 days. Progress Note: A&P Assessment and plan (1) Heart failure with reduced ejection fraction: Status: Acute (2) Diabetic infection of left foot: Status: Acute (3) Osteomyelitis of second toe of left foot: Status: Acute (4) COPD (chronic obstructive pulmonary disease): Status: Acute (5) 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: Status: Acute (6) DECLAN (acute kidney injury): Status: Acute Plan Assessment: 58-year-old gentleman with underlying diabetes mellitus admitted with diabetic foot ulcer/osteomyelitis further complicated by acute on chronic hypercapnic respiratory failure, acute on chronic systolic congestive heart failure and renal failure Plan: Neuro: Metabolic encephalopathy, improving. Cardiac: Acute on chronic systolic congestive heart failure improving with diuresis. Vascular surgery service care appreciated, planned for lower extremity angiography for amputation planning. Pulmonary: Acute on chronic hypercapnic respiratory failure, resolved. Renal: Acute renal failure secondary to exacerbation of underlying congestive heart failure secondary to poor forward flow, improving. Non oliguric. Continue to monitor renal indices and urine output. Endo: No acute issues. GI: No acute issues. ID: Continue empiric antibiotics for underlying osteomyelitis. Heme/Onc: No acute issues. Psych: No acute issues. Miscellaneous: No acute issues. Prophylaxis: Heparin Diet: Diabetic Critical care time spent: 60 minutes Quality Stroke Does the patient have a stroke diagnosis?: No VTE Prior VTE?: No VTE Risk Level:: Medical - moderate - high VTE Device Contraindication: N/A - Device Ordered VTE Drug Contraindication: N/A - Med Ordered
[2024-05-29] MEDS: Albuterol Sulfate (0.083%) 2.5 MG/3 ML VIAL.NEB INHALE ×2 (11:09→15:12)
[2024-05-29 11:40] LABS: Glucose, Whole Blood 161 mg/dL (60-115)
[2024-05-29] MEDS: Insulin Lispro 100 UNIT/ML 3 ML VIAL SUBCUT ×2 (12:04→16:43)
--- NOTE | 2024-05-29 14:07 | PM.EVENT ---
Event Note Date of Service: 05/29/24 Event Note: Please see my PAs progress note for full details. In general patient appears to be doing better and his renal function has significantly improved. Once stabilizes transferred to the floor will possibly proceed with angiogram and possible amputation thereafter. Case discussed with the route process administrator team Time Spent With Patient Time: Total time managing care of this patient today ____ minutes.
--- NOTE | 2024-05-29 14:13 | HO.VASCPN ---
Subjective Subjective Date of Service: 05/29/24 Interval history: Jr is doing ok this morning. He does endorse increased drowsiness; he was given Ativan to help him sleep last night. He has been using his CPAP. He has been aggressively diuresed and his GFR/kidney function is improving, with a BUN/Cr of 47/1.31 and GFR 56 this morning. He states he is feeling better. He continues to endorse left foot pain. Physical Exam Vital Signs: Vital Signs: Last Vital Signs Temp 99.5 F 05/29/24 14:00 Pulse 73 05/29/24 14:00 Resp 20 05/29/24 14:00 BP 97/56 L 05/29/24 14:00 Pulse Ox 90 L 05/29/24 14:00 O2 Del Method Nasal Cannula 05/29/24 14:00 O2 Flow Rate 2 05/29/24 14:00 FiO2 28 05/28/24 20:00 Oxygen Flow Rate 28 05/27/24 12:00 BMI result Body Mass Index 28.0 Const: General: comfortable and no acute distress Orientation/consciousness: patient oriented x3 HEENT: Ears: hearing grossly normal bilaterally Resp: Effort & Inspection: normal respiratory effort and able to speak in complete sentences Auscultation: clear to auscultation bilaterally Cardio: Rate: regular rate Rhythm: regular rhythm Heart sounds: S1 normal heart sound present and S2 normal heart sound present Bruits: no abdominal aortic bruits, no carotid bruits, no femoral bruits and no renal bruits GI: Palpation (GI): No Abdominal aortic bruit present Neuro: General: patient oriented x3 Cranial nerves: Yes CN's II-XII intact bilaterally Extrem: Other: Left foot: wrapped, did not take down this morning Progress Note: A&P Assessment and plan (1) Diabetic infection of left foot: Status: Acute Assessment and Plan: Jr continues with left foot pain. He was moved to the ICU due to acute on chronic hypercarbic resp failure. He has been getting diuresis with good effect; however, it did affect his kidney function. We are continuing to watch his kidney function prior to the angio. We will continue to monitor with the possibility of an angio on Wednesday, if kidney function returns to baseline. If there are any questions or concerns, please do not hesitate to reach out. Time Spent With Patient Time: Total time managing care of this patient today __25__ minutes. Procedures Date of Service Date of Service: 05/29/24 Quality Stroke Does the patient have a stroke diagnosis?: No VTE Prior VTE?: No VTE Risk Level:: Medical - moderate - high VTE Device Contraindication: N/A - Device Ordered VTE Drug Contraindication: N/A - Med Ordered
--- NOTE | 2024-05-29 16:22 | HO.WOUND ---
Wound Consult: Initial 58yr old male admitted to [facility] on 05/22/24 23:53- See progress notes and H&P for detailed history.? Wound consult placed for bridge of nose redness.? Patient agreeable to assessment and photo documentation.? Patient reports new tenderness and burning sensation along the bridge of his nose and to the area on the right cheek / nare. Bridge of nose and Right side of nare Etiology: ?Friction Measurements: 1cm x 1cm Wound Bed: red blanchable intact tissue - dry desquamation noted consistent with friction Drainage / Odor: None Edges: ? attached [place] wound: intact - right side nare with linear redness noted intact and remains blanchable no pressure noted at this time - however it is device related - No Induration, Fluctuance or Warmth noted Pain: tenderness noted Goals of Treatment: ? Off Load Pressure with foam dressing and protect from friction with foam and skin prep Left Foot not assessed at todays visit - no new topical recommendations at this time. Recommendations: 1. Turn and Reposition every 2 hours and as needed for patient comfort.? Use pillows or wedges to support off loading positions. 2. Off Load all bony prominences with use of pillows and heel boots if needed.? Apply Preventative foams where needed. ? 3. Monitor for incontinence and moisture control, use barrier creams when needed for prevention and treatment. 4. Provide adequate and supplemental nutrition.? 5. Continue low air loss mattress. 6. When applicable maintain blood glucose levels per Providers order. 7. Left foot sites - Off Load Pressure - Cleanse and irrigate with NS, Pat dry.? Apply barrier to periwound, lightly pack with Gauze Strip packing, be sure to leave a wick to easy removal.? Cover with dry gauze, gauze wrap.? Change Daily. 8. Bridge of nose and Right side - Skin prep allow to dry. Cover with allevvn Gentle Border foam dressing (Store room# [id number]). Keep in place while Cpap in use. Re-consult wound care Nurse for wound deterioration or wound changes.
[2024-05-29 16:36] LABS: Glucose, Whole Blood 182 mg/dL (60-115)
[2024-05-29] MEDS: Norepinephrine Bitartrate/D5W 8 MG/250 ML PLAST..BAG 9.44 MG IVCONT (19:35)
[2024-05-29 20:22] LABS: Glucose, Whole Blood 146 mg/dL (60-115)
[2024-05-29] MEDS: oxyCODONE HCl Immed Release 5 MG TABLET PO (20:37)
[2024-05-29] MEDS: Insulin Glargine,Hum.rec.anlog 100 UNIT/ML 10 ML VIAL 17 UNIT SUBCUT (20:38)
[2024-05-29 21:32] LABS: Anion Gap 12 (12-20); Blood Urea Nitrogen 35 mg/dL (9-16); Calcium 8.6 mg/dL (8.4-10.2); Carbon Dioxide 35 mmol/L (22-29); Chloride 97 mmol/L (96-108); Creatinine Clr Calc Pharmacy 80.2; Estimated Glomerular Filt Rate > 60; Glucose Random 188 mg/dL (60-115); Magnesium 1.7 mg/dL (1.6-2.6); Phosphorus 2.4 mg/dL (2.7-4.5); Potassium 3.6 mmol/L (3.3-5.1); Sodium 140 mmol/L (135-145)
[2024-05-29] MEDS: Magnesium Sulfate/D5W 1 GM/100 ML PIGGYBACK IV (22:08)
[2024-05-29] MEDS: Potassium Phosphate/NS 15 MMOL/250 ML PLAST..BAG 62.5 MMOL IV (23:31)
[2024-05-30] VITALS (26 sets, daily range): BP systolic 89–125; BP diastolic 26–82; PULSE 64–93; RESP 14–20; TEMP 36–37.3; O2SAT 89–100; BMI 27.2
[2024-05-30] MEDS: Heparin Sodium,Porcine 5,000 UNIT/ML VIAL 5000 UNIT SUBCUT ×4 (02:06→23:56)
[2024-05-30 05:42] LABS: VBG Base Excess 12.8 mmol/L; VBG HCO3 39 mmol/L (22-26); VBG pCO2 56 mmHg; VBG pH 7.44 (7.32-7.43); VBG pO2 35 mmHg
[2024-05-30 05:43] LABS: Venous Blood Gas Refer to POC result
[2024-05-30 05:45] LABS: MANUAL DIFF FLAG NO
[2024-05-30 05:46] LABS: Basophils Absolute Auto 0.1 X10*3/uL (0.0-0.2); Basophils Percent Auto 0.5 % (0-2); Eosinophils Absolute Auto 1.8 X10*3/uL (0.0-0.4); Eosinophils Percent Auto 18.7 % (0-4); Hematocrit 37.4 % (42.0-52.0); Hemoglobin 11.1 g/dl (14.0-18.0); Imm Gran Abs Auto 0.02 X10*3/uL (0.00-0.03); Imm Gran Pct Auto 0.2 % (0.0-0.4); Lymphocytes Absolute Auto 1.8 X10*3/uL (1.2-4.9); Lymphocytes Percent Auto 18.8 % (20-40); Mean Corpuscular HGB Conc 29.7 g/dl (31.0-36.0); Mean Corpuscular Hemoglobin 23.5 pg (27.0-33.0); Mean Corpuscular Volume 79.1 fL (80.0-98.0); Mean Platelet Volume 9.4 fL (9.4-12.4); Monocytes Absolute Auto 1.1 X10*3/uL (0.1-1.2); Monocytes Percent Auto 11.4 % (2-11); Neutrophils Absolute Auto 4.7 x10*3/uL (2.0-8.3); Neutrophils Percent Auto 50.4 % (45-73); Platelet Count 153 X10*3/uL (160-400); Red Blood Count 4.73 X10*6/uL (4.60-5.80); Red Cell Distribution Width 25.7 % (11.0-16.0); White Blood Count 9.4 X10*3/uL (4.8-10.8)
[2024-05-30 06:13] LABS: Albumin Level 3.1 g/dL (3.5-5.0); Anion Gap 12 (12-20); Blood Urea Nitrogen 31 mg/dL (9-16); Calcium 8.6 mg/dL (8.4-10.2); Carbon Dioxide 35 mmol/L (22-29); Chloride 98 mmol/L (96-108); Creatinine Clr Calc Pharmacy 81.2; Estimated Glomerular Filt Rate > 60; Glucose Random 148 mg/dL (60-115); Magnesium 1.9 mg/dL (1.6-2.6); Phosphorus 3.9 mg/dL (2.7-4.5); Potassium 3.8 mmol/L (3.3-5.1); Sodium 141 mmol/L (135-145)
[2024-05-30] MEDS: Furosemide 200 MG in 0.9 % Sodium Chloride 80 ML 10 MG IVCONT ×2 (06:25→17:09)
[2024-05-30 07:29] LABS: Glucose, Whole Blood 159 mg/dL (60-115)
--- NOTE | 2024-05-30 08:10 | P.PNNP_ITS ---
Subjective Subjective Date of Service: 05/30/24 Principal diagnosis: Decompensated congestive heart failure Interval history: This is a 58-year-old male with a history of atrial fibrillation on Eliquis, ischemic cardiomyopathy status post AICD, coronary artery disease status post PCI, COPD, KIMANI on CPAP, HFrEF, DMII. presented 05/22 with acute on chronic left foot ulcer infection- admitted for pending amputation. of note, has had multiple recent admissions for CHF exacerbation. 05/26, trasferred to ICU for acute on chronic hypercarbic respiratory failure Nephrology consulted for DECLAN last creatinine prior to admission on 05/17 was 1.24 05/22 creatinine 1.42, trending upward, peaked at 4.12 on 05/26, since then trending downward 05/29 creatinine 1.31, then 1.13 05/30 creatinine 1.03 pt is currently on a furosemide 20mg/hr continuous IV drip pt on norepinephrine drip to maintain adequate blood pressures daptomycin and meropenem for management of infection CT abdomen/pelvis 05/03 showed unremarkable kidneys/ureters without obstruction 05/28/24 abdominal US with unremarkable kidneys/ureters, no hydronephrosis/hydroureter Pt sleeping but wakes to voice at bedside- states his breathing is doing ok on bipap and denies other concerns/symptoms. Physical Exam 2 Vital Signs: Vital Signs: Last Vital Signs Temp 97.6 F 05/30/24 08:00 Pulse 71 05/30/24 08:28 Resp 15 05/30/24 08:00 BP 102/60 05/30/24 08:28 Pulse Ox 93 05/30/24 08:00 O2 Del Method CPAP 05/30/24 08:00 O2 Flow Rate 3 05/30/24 08:00 FiO2 28 05/28/24 20:00 Oxygen Flow Rate 28 05/27/24 12:00 BMI result Body Mass Index 27.2 Const: General: no acute distress and lethargic Orientation/consciousness: lethargic Neck: Neck: Yes no JVD Resp: Effort & Inspection: normal respiratory effort Auscultation: clear to auscultation bilaterally Cardio: Jugular venous distension: no JVD Rate: regular rate Rhythm: r egular rhythm Heart sounds: S1 normal heart sound present and S2 normal heart sound present GI: Palpation (GI): Soft to palpation and nontender Skin: Rashes: no rashes Wounds: wounds noted (left toe wound covered in gauze dressing. ) Extrem: General: No edema Objective Data Labs 05/30/24 05:33 05/30/24 05:33 Labs: Laboratory Results - last 24 hr 05/29/24 05/29/24 05/29/24 11:36 16:32 20:18 WBC RBC Hgb Hct MCV MCH MCHC RDW Plt Count MPV Immature Gran % (Auto) Neut % (Auto) Lymph % (Auto) [place] % (Auto) Eos % (Auto) Baso % (Auto) Lymph # (Auto) [place] # (Auto) Eos # (Auto) Baso # (Auto) Abs Immat Gran (auto) Absolute Neuts (auto) Absolute Nucleated RBC Nucleated RBC % (auto) VBG pH VBG pCO2 VBG pO2 VBG HCO3 VBG O2 Saturation VBG Base Excess Sodium Potassium Chloride Carbon Dioxide Anion Gap BUN Creatinine Estim Creat Clear Calc Estimated GFR POC Glucose 161 H 182 H 146 H Random Glucose Calcium Phosphorus Magnesium Albumin 05/29/24 05/30/24 05/30/24 21:08 05:31 05:33 WBC 9.4 RBC 4.73 Hgb 11.1 L Hct 37.4 L MCV 79.1 L MCH 23.5 L MCHC 29.7 L RDW 25.7 H Plt Count 153 L MPV 9.4 Immature Gran % (Auto) 0.2 Neut % (Auto) 50.4 Lymph % (Auto) 18.8 L [place] % (Auto) 11.4 H Eos % (Auto) 18.7 H Baso % (Auto) 0.5 Lymph # (Auto) 1.8 [place] # (Auto) 1.1 Eos # (Auto) 1.8 H Baso # (Auto) 0.1 Abs Immat Gran (auto) 0.02 Absolute Neuts (auto) 4.7 Absolute Nucleated RBC 0.000 Nucleated RBC % (auto) 0.0 VBG pH 7.44 H VBG pCO2 56 VBG pO2 35 VBG HCO3 39 H VBG O2 Saturation 49.0 VBG Base Excess 12.8 Sodium 140 141 Potassium 3.6 3.8 Chloride 97 98 Carbon Dioxide 35 H 35 H Anion Gap 12 12 BUN 35 H 31 H Creatinine 1.13 1.03 Estim Creat Clear Calc 80.2 81.2 Estimated GFR > 60 > 60 POC Glucose Random Glucose 188 H 148 H Calcium 8.6 8.6 Phosphorus 2.4 L 3.9 Magnesium 1.7 1.9 Albumin 3.1 L 05/30/24 07:25 WBC RBC Hgb Hct MCV MCH MCHC RDW Plt Count MPV Immature Gran % (Auto) Neut % (Auto) Lymph % (Auto) [place] % (Auto) Eos % (Auto) Baso % (Auto) Lymph # (Auto) [place] # (Auto) Eos # (Auto) Baso # (Auto) Abs Immat Gran (auto) Absolute Neuts (auto) Absolute Nucleated RBC Nucleated RBC % (auto) VBG pH VBG pCO2 VBG pO2 VBG HCO3 VBG O2 Saturation VBG Base Excess Sodium Potassium Chloride Carbon Dioxide Anion Gap BUN Creatinine Estim Creat Clear Calc Estimated GFR POC Glucose 159 H Random Glucose Calcium Phosphorus Magnesium Albumin Microbiology Microbiology Results: Microbiology 05/26/24 09:53 Blood - Venous Blood Culture - Preliminary No growth after 48 hours. 05/26/24 09:53 Blood - Venous Blood Culture - Preliminary No growth after 48 hours. 05/22/24 21:39 Blood - Venous Blood Culture - Final No growth after 5 days. 05/22/24 21:39 Blood - Venous Blood Culture - Final No growth after 5 days. Procedures Date of Service Date of Service: 05/30/24 Assessment & Plan Assessment and plan (1) Hyperkalemia: Status: Resolved (2) 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: Status: Acute (3) DECLAN (acute kidney injury): Status: Resolved Plan DECLAN likely tubular injury initially from hypoperfusion in setting of diuretic and ARB use with hypotension second DECLAN likely has component of cardiorenal syndrome given continued improvement with aggressive diuresis DECLAN resolved, renal function remains at baseline will have patient follow up with nephrology in 2-4 weeks after his discharge continue to avoid nephrotoxic medications Will sign off, happy to follow up as needed if new concerns or changes arise Discussed with Dr Chatterjee Time Spent With Patient Time: Total time managing care of this patient today ____ minutes. Progress Note: Quality Stroke Does the patient have a stroke diagnosis?: No
--- NOTE | 2024-05-30 08:26 | HO.VASCPN ---
Subjective Subjective Date of Service: 05/30/24 Interval history: Jr is doing well this morning. He is sleeping; nursing states he has needed Ativan for sleep again last night. He remains compliant with his CPAP. Nursing states he is doing better. Physical Exam Vital Signs: Vital Signs: Last Vital Signs Temp 97.6 F 05/30/24 08:00 Pulse 70 05/30/24 08:00 Resp 15 05/30/24 08:00 BP 107/63 05/30/24 08:00 Pulse Ox 93 05/30/24 08:00 O2 Del Method CPAP 05/30/24 08:00 O2 Flow Rate 3 05/30/24 08:00 FiO2 28 05/28/24 20:00 Oxygen Flow Rate 28 05/27/24 12:00 BMI result Body Mass Index 27.2 Const: Other: sleeping this morning but is baseline CAOx3 General: comfortable and no acute distress HEENT: Ears: hearing grossly normal bilaterally Resp: Effort & Inspection: normal respiratory effort and able to speak in complete sentences Auscultation: clear to auscultation bilaterally Cardio: Rate: regular rate Rhythm: regular rhythm Heart sounds: S1 normal heart sound present and S2 normal heart sound present Bruits: no abdominal aortic bruits, no carotid bruits, no femoral bruits and no renal bruits GI: Palpation (GI): No Abdominal aortic bruit present Neuro: Cranial nerves: Yes CN's II-XII intact bilaterally Extrem: Other: Foot wrapped this morning. Did not take down. Progress Note: A&P Assessment and plan (1) Diabetic infection of left foot: Status: Acute Assessment and Plan: Jr remains stable. His kidney function has improved, with a BUN/Cr is 31/1.03 and GFR >60. At this point, we will be doing an angio tomorrow for further evaluation of the left lower extremity and to determine the treatment options. The pt is sleeping this morning but we will discuss this with him when he wakes later. Nursing is aware of this and will discuss it as well. We will continue to monitor. Time Spent With Patient Time: Total time managing care of this patient today _25___ minutes. Procedures Date of Service Date of Service: 05/30/24 Quality Stroke Does the patient have a stroke diagnosis?: No VTE Prior VTE?: No VTE Risk Level:: Medical - moderate - high VTE Device Contraindication: N/A - Device Ordered VTE Drug Contraindication: N/A - Med Ordered
[2024-05-30] MEDS: 0.9 % Sodium Chloride Flush 3 ML SYRINGE IVFLUSH ×3 (08:29→20:27)
[2024-05-30] MEDS: Insulin Lispro 100 UNIT/ML 3 ML VIAL SUBCUT ×2 (08:29→20:26)
[2024-05-30] MEDS: Albumin Human 25 % 100 ML IV ×3 (08:33→19:38)
--- NOTE | 2024-05-30 08:44 | P.PNCC_ITS ---
Subjective Subjective Date of Service: 05/30/24 Interval History: 58-year-old gentleman with underlying history of diabetes mellitus complicated by left diabetic foot ulcer and osteomyelitis, peripheral artery disease, COPD, AFib on anticoagulation, cardiomyopathy sleep apnea admitted on 05/22/2024 with worsening left foot pain and treated for diabetic foot ulcer with hospital course complicated by acute on chronic hypercapnic respiratory failure requiring BiPAP support and transfer to intensive care unit, sepsis requiring pressor support, metabolic encephalopathy, and renal failure. No events overnight. Renal function continues to improve. That off pressor support. Critical Care Time (minutes): 0 Physical Exam 2 Vital Signs: Vital Signs: Last Vital Signs Temp 97.6 F 05/30/24 08:00 Pulse 71 05/30/24 08:28 Resp 15 05/30/24 08:00 BP 102/60 05/30/24 08:28 Pulse Ox 93 05/30/24 08:00 O2 Del Method CPAP 05/30/24 08:00 O2 Flow Rate 3 05/30/24 08:00 FiO2 28 05/28/24 20:00 Oxygen Flow Rate 28 05/27/24 12:00 BMI result Body Mass Index 27.2 Const: General: no acute distress, alert and awake Eyes: Sclerae: sclerae normal EOM: EOMs intact bilaterally Neck: Neck: Yes no lymphadenopathy, Yes trachea midline and Yes supple Resp: Effort & Inspection: normal respiratory effort and no respiratory distress Auscultation: clear to auscultation bilaterally Cardio: Rate: regular rate Rhythm: regular rhythm Heart sounds: no gallops, no murmurs and no rubs GI: Palpation (GI): Soft to palpation and Other GI palpation findings present ( Nontender) Auscultation: normal bowel sounds Extrem: General: Yes no pedal edema, No clubbing and No cyanosis Objective Data Labs 05/30/24 05:33 05/30/24 05:33 Labs: Laboratory Results - last 24 hr 05/29/24 05/29/24 05/29/24 11:36 16:32 20:18 WBC RBC Hgb Hct MCV MCH MCHC RDW Plt Count MPV Immature Gran % (Auto) Neut % (Auto) Lymph % (Auto) [place] % (Auto) Eos % (Auto) Baso % (Auto) Lymph # (Auto) [place] # (Auto) Eos # (Auto) Baso # (Auto) Abs Immat Gran (auto) Absolute Neuts (auto) Absolute Nucleated RBC Nucleated RBC % (auto) VBG pH VBG pCO2 VBG pO2 VBG HCO3 VBG O2 Saturation VBG Base Excess Sodium Potassium Chloride Carbon Dioxide Anion Gap BUN Creatinine Estim Creat Clear Calc Estimated GFR POC Glucose 161 H 182 H 146 H Random Glucose Calcium Phosphorus Magnesium Albumin 05/29/24 05/30/24 05/30/24 21:08 05:31 05:33 WBC 9.4 RBC 4.73 Hgb 11.1 L Hct 37.4 L MCV 79.1 L MCH 23.5 L MCHC 29.7 L RDW 25.7 H Plt Count 153 L MPV 9.4 Immature Gran % (Auto) 0.2 Neut % (Auto) 50.4 Lymph % (Auto) 18.8 L [place] % (Auto) 11.4 H Eos % (Auto) 18.7 H Baso % (Auto) 0.5 Lymph # (Auto) 1.8 [place] # (Auto) 1.1 Eos # (Auto) 1.8 H Baso # (Auto) 0.1 Abs Immat Gran (auto) 0.02 Absolute Neuts (auto) 4.7 Absolute Nucleated RBC 0.000 Nucleated RBC % (auto) 0.0 VBG pH 7.44 H VBG pCO2 56 VBG pO2 35 VBG HCO3 39 H VBG O2 Saturation 49.0 VBG Base Excess 12.8 Sodium 140 141 Potassium 3.6 3.8 Chloride 97 98 Carbon Dioxide 35 H 35 H Anion Gap 12 12 BUN 35 H 31 H Creatinine 1.13 1.03 Estim Creat Clear Calc 80.2 81.2 Estimated GFR > 60 > 60 POC Glucose Random Glucose 188 H 148 H Calcium 8.6 8.6 Phosphorus 2.4 L 3.9 Magnesium 1.7 1.9 Albumin 3.1 L 05/30/24 07:25 WBC RBC Hgb Hct MCV MCH MCHC RDW Plt Count MPV Immature Gran % (Auto) Neut % (Auto) Lymph % (Auto) [place] % (Auto) Eos % (Auto) Baso % (Auto) Lymph # (Auto) [place] # (Auto) Eos # (Auto) Baso # (Auto) Abs Immat Gran (auto) Absolute Neuts (auto) Absolute Nucleated RBC Nucleated RBC % (auto) VBG pH VBG pCO2 VBG pO2 VBG HCO3 VBG O2 Saturation VBG Base Excess Sodium Potassium Chloride Carbon Dioxide Anion Gap BUN Creatinine Estim Creat Clear Calc Estimated GFR POC Glucose 159 H Random Glucose Calcium Phosphorus Magnesium Albumin Microbiology Microbiology Results: Microbiology 05/26/24 09:53 Blood - Venous Blood Culture - Preliminary No growth after 48 hours. 05/26/24 09:53 Blood - Venous Blood Culture - Preliminary No growth after 48 hours. 05/22/24 21:39 Blood - Venous Blood Culture - Final No growth after 5 days. 05/22/24 21:39 Blood - Venous Blood Culture - Final No growth after 5 days. Progress Note: A&P Assessment and plan (1) Heart failure with reduced ejection fraction: Status: Acute (2) 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: Status: Acute (3) Diabetic infection of left foot: Status: Acute (4) DECLAN (acute kidney injury): Status: Acute (5) Osteomyelitis of second toe of left foot: Status: Acute (6) KIMANI (obstructive sleep apnea): Status: Acute (7) COPD (chronic obstructive pulmonary disease): Status: Acute Plan Assessment: 58-year-old gentleman with underlying diabetes mellitus admitted with diabetic foot ulcer/osteomyelitis further complicated by acute on chronic hypercapnic respiratory failure, acute on chronic systolic congestive heart failure and renal failure Plan: Neuro: Metabolic encephalopathy, improving. Cardiac: Titrated off pressor support. Acute on chronic systolic congestive heart failure improving with diuresis. Vascular surgery service care appreciated, planned for lower extremity angiography for amputation planning on 05/31/2024. Pulmonary: Acute on chronic hypercapnic respiratory failure, resolved. Renal: Acute renal failure secondary to exacerbation of underlying congestive heart failure secondary to poor forward flow, improving. Non oliguric. Continue to monitor renal indices and urine output. Endo: No acute issues. GI: No acute issues. ID: Continue empiric antibiotics for underlying osteomyelitis. Heme/Onc: No acute issues. Psych: No acute issues. Miscellaneous: No acute issues. Prophylaxis: Heparin Diet: Diabetic Quality Stroke Does the patient have a stroke diagnosis?: No VTE Prior VTE?: No VTE Risk Level:: Medical - moderate - high VTE Device Contraindication: N/A - Device Ordered VTE Drug Contraindication: N/A - Med Ordered
[2024-05-30] MEDS: Meropenem 1 GM VIAL IV ×2 (10:05→22:47)
[2024-05-30] MEDS: DAPTOmycin 500 MG in 0.9 % Sodium Chloride 50 ML 96.6 MG IV (10:05)
[2024-05-30] MEDS: Albuterol Sulfate (0.083%) 2.5 MG/3 ML VIAL.NEB INHALE ×3 (11:15→18:57)
--- NOTE | 2024-05-30 11:36 | P.EN_ITS ---
Event Note Date of Service: 05/30/24 Event Note: ICU transfer 58yo M with HFrEF, COPD, pAF on apixaban, CAD s/p PCI, KIMANI on CPAP, DM2, PAD recently admitted here 05/03-05/17/24 for CHF exacerbation during which he was diuresed 28L and also completed IV ertapenem and daptomycin for treatment of diabetic foot infection with osteomyelitis. He returned with worsening foot pain and was admitted for persistent osteomyelitis. on 05/26 she was tx to ICU for hypercarbia, respiratory failure requiring BiPAP support and transfer to intensive care unit, sepsis requiring pressor support, metabolic encephalopathy, and renal failure. Acute on Chronic HFrEF echo 05/26 EF 15-20% Diuresed in ICU with lasix drip, continue for now Cardiology consultation On hold, metoprolol succinate, isosorbide dinitrate, empagliflozin, and valsartan Acute on chronic hypoxia resp failure and hypercarbia tx back to [facility] tele today placed on bipap with good effect DECLAN on CKD 3 likely secondary to diuresis lasix and torsemide held nephrology consultation pending DM2 ss, ada diet DM osteomyelitis and cellulitis was on daptomycin + ertapenem for over 8 weeks, now on Daptomycin alone ID following Vascular Surgery consulted for management of possible right BKA> patient high risk at this time, holding off on BKA for now CAD PAD vascular following PAF continue amiodarone + metoprolol succinate. continue apixaban KIMANI CPAP at night and during naps COPD Breo, prn albuterol Peripheral neuropathy continue gabapentin mood disorder sertraline VTE ppx apixaban Attending Dr. Jenkins Full code Time Spent With Patient Time: Total time managing care of this patient today ____ minutes.
[2024-05-30 16:08] LABS: Glucose, Whole Blood 101 mg/dL (60-115)
--- NOTE | 2024-05-30 16:16 | HO.WOUND ---
Wound Consult: Follow up 58yr old male admitted to [facility] [place] on 05/22/24 23:53- See progress notes and H&P for detailed history.? Wound consult follow up for bridge of nose.? Patient agreeable to assessment and photo documentation.? Patient reports resolution of tenderness site assessed for mild pink pigmentation continues to be blanchable remains intact, Dry desquamation decreased at this time. No dressing in place at this time and no Cpap in use at this time. Patient educated that should he require application of CPCP to apply foam dressing to protect his skin. Left Foot not assessed at todays visit - no new topical recommendations at this time. Recommendations: 1. Turn and Reposition every 2 hours and as needed for patient comfort.? Use pillows or wedges to support off loading positions. 2. Off Load all bony prominences with use of pillows and heel boots if needed.? Apply Preventative foams where needed. ? 3. Monitor for incontinence and moisture control, use barrier creams when needed for prevention and treatment. 4. Provide adequate and supplemental nutrition.? 5. Continue low air loss mattress. 6. When applicable maintain blood glucose levels per Providers order. 7. Left foot sites - Off Load Pressure - Cleanse and irrigate with NS, Pat dry.? Apply barrier to periwound, lightly pack with Gauze Strip packing, be sure to leave a wick to easy removal.? Cover with dry gauze, gauze wrap.? Change Daily. 8. Bridge of nose and Right side - Skin prep allow to dry. Cover with allevvn Gentle Border foam dressing (Store room# [id number]). Keep in place while Cpap in use. Re-consult wound care Nurse for wound deterioration or wound changes.
[2024-05-30 19:04] LABS: Anion Gap 13 (12-20); Blood Urea Nitrogen 29 mg/dL (9-16); Calcium 9.1 mg/dL (8.4-10.2); Carbon Dioxide 35 mmol/L (22-29); Chloride 98 mmol/L (96-108); Creatinine Clr Calc Pharmacy 89.9; Estimated Glomerular Filt Rate > 60; Glucose Random 138 mg/dL (60-115); Potassium 4.6 mmol/L (3.3-5.1); Sodium 141 mmol/L (135-145)
[2024-05-30] MEDS: Midodrine HCl 10 MG TABLET PO (20:11)
[2024-05-30] MEDS: Acetaminophen 325 MG TABLET 975 MG PO (20:11)
[2024-05-30 20:23] LABS: Glucose, Whole Blood 158 mg/dL (60-115)
[2024-05-30] MEDS: Insulin Glargine,Hum.rec.anlog 100 UNIT/ML 10 ML VIAL 17 UNIT SUBCUT (20:26)
[2024-05-31] VITALS (20 sets, daily range): BP systolic 99–121; BP diastolic 51–70; PULSE 69–80; RESP 13–20; TEMP 36–36.8; O2SAT 90–99
[2024-05-31] MEDS: Albumin Human 25 % 100 ML IV (02:09)
[2024-05-31] MEDS: Acetaminophen 325 MG TABLET 975 MG PO (02:10)
[2024-05-31] MEDS: oxyCODONE HCl Immed Release 5 MG TABLET PO (03:33)
[2024-05-31] MEDS: LORazepam 0.5 MG TABLET PO (03:48)
[2024-05-31] MEDS: Furosemide 200 MG in 0.9 % Sodium Chloride 80 ML 10 MG IVCONT ×2 (03:48→13:02)
[2024-05-31 06:52] LABS: Basophils Absolute Auto 0.1 X10*3/uL (0.0-0.2); Basophils Percent Auto 0.8 % (0-2); Eosinophils Absolute Auto 1.5 X10*3/uL (0.0-0.4); Eosinophils Percent Auto 20.3 % (0-4); Hematocrit 30.4 % (42.0-52.0); Hemoglobin 9.4 g/dl (14.0-18.0); Imm Gran Abs Auto 0.02 X10*3/uL (0.00-0.03); Imm Gran Pct Auto 0.3 % (0.0-0.4); Lymphocytes Absolute Auto 1.8 X10*3/uL (1.2-4.9); Lymphocytes Percent Auto 23.9 % (20-40); MANUAL DIFF FLAG SCAN; Mean Corpuscular HGB Conc 30.9 g/dl (31.0-36.0); Mean Corpuscular Hemoglobin 23.6 pg (27.0-33.0); Mean Corpuscular Volume 76.2 fL (80.0-98.0); Monocytes Absolute Auto 0.8 X10*3/uL (0.1-1.2); Neutrophils Absolute Auto 3.4 x10*3/uL (2.0-8.3); Neutrophils Percent Auto 44.7 % (45-73); Red Blood Count 3.99 X10*6/uL (4.60-5.80); Red Cell Distribution Width 25.2 % (11.0-16.0); SCAN SMEAR FLAG 1; White Blood Count 7.6 X10*3/uL (4.8-10.8)
[2024-05-31 07:10] LABS: Albumin Level 3.7 g/dL (3.5-5.0); Blood Urea Nitrogen 33 mg/dL (9-16); Creatinine Clr Calc Pharmacy 90.7; Estimated Glomerular Filt Rate > 60; Glucose Random 83 mg/dL (60-115); Magnesium 1.9 mg/dL (1.6-2.6); Phosphorus 2.8 mg/dL (2.7-4.5)
[2024-05-31 07:23] LABS: Anion Gap 13 (12-20); Carbon Dioxide 29 mmol/L (22-29); Chloride 100 mmol/L (96-108); Potassium 3.3 mmol/L (3.3-5.1); Sodium 139 mmol/L (135-145)
[2024-05-31 07:48] LABS: Mean Platelet Volume 10.6 fL (9.4-12.4); Platelet Count 113 X10*3/uL (160-400)
[2024-05-31 07:49] LABS: SLIDE REVIEW VERIFIED
[2024-05-31 08:09] LABS: Glucose, Whole Blood 85 mg/dL (60-115)
[2024-05-31] MEDS: Midazolam HCl/PF 2 MG/2 ML VIAL 0.5 MG IVPUSH ×2 (10:24→10:49)
[2024-05-31] MEDS: fentaNYL citrate/PF 100 MCG/2 ML VIAL 25 MCG IVPUSH ×2 (10:25→10:49)
[2024-05-31] MEDS: Heparin Sodium,Porcine 5,000 UNIT/ML VIAL 5000 UNIT IVPUSH (10:35)
[2024-05-31] MEDS: Heparin Sodium,Porcine 5,000 UNIT/ML VIAL 2000 UNIT IVPUSH (10:45)
--- NOTE | 2024-05-31 11:14 | P.OP_ITS ---
Operative Note Operative Note Date of Service: 05/31/24 Narrative: Angiogram report from [facility] Preoperative diagnosis: Atherosclerosis of left lower extremity with nonhealing ulcer Postoperative diagnosis: Same Procedure: 1. Ultrasound-guided right common femoral access 2. Aortogram with left lower extremity runoff 3. Left peroneal and posterior tibial plasty Surgeon:Jens Chatman M.D., FACS, RPVI [employer] Team Member:None Anesthesia: Local with moderate conscious sedation. Total intraservice moderate sedation time was 36 minutes. I monitored the patient's level of consciousness and physiologic status continuously throughout the procedure. Specimens:none Drains:none Estimated blood loss: Less than 10 ml Implant: None Indications: Complex 59-year-old gentleman with multiple medical issues presents with nonhealing left lower extremity ulcer. On noninvasive testing he was noted to have tibial disease. He now presents for endovascular intervention. The patient has signed the informed consent after reviewing risks, complications, benefits, and alternatives previously discussed with the patient. The patient was given the opportunity to ask any additional questions or voice any concerns. All questions were answered to the patient's satisfaction. Procedure in detail: Patient was brought to the angiography suite prior to which a time-out was called for patient identification and site verification. Bilateral groins were prepped and draped in the standard surgical fashion. Under ultrasound guidance common femoral was punctured with micro puncture needle and wire. Subsequently a precision 5 Beninese sheath was then placed. Bentson wire was advanced to the level of the aorta. 5 Beninese Flush catheter was brought up and parked at the level of the renal arteries. Aortogram was then undertaken. Catheter was brought down to the level of the iliac bifurcation. Iliacs were subsequently imaged. Catheter was then brought in up and over to the left side SFA. Runoff study was then undertaken. It was recognized that he had tibial disease. At this time 5000 units of systemic heparin was administered. We placed an up and over 5 Beninese sheath. We advanced an 0[address] all the way to the below-knee vessels. We followed this with a trail Blazer catheter and we subsequently took a more focused below-knee angiogram. Once this was accomplished an additional 2000 units of heparin had to be administered. We then advanced the Glidewire advantage and it did go down into the posterior tibial artery. We plasty this with a 3 x 80 balloon. Once this was accomplished we redirected the wire down the peroneal artery and this was plasty did with a 3 x 80 balloon as well. Once this was accomplished completion angiogram demonstrated good result. Catheter wire sheath was brought back to the ipsilateral side. We replaced for a short 5 Beninese sheath and a CELT closure device was then placed. Direct pressure was held for hemostasis and then subsequently skin sealant was then placed. Patient tolerated the procedure well and brought to recovery with stable vitals. Interpretation of films: 1. Ultrasound demonstrates appropriate femoral access site. Vessel was patent with minimal stenosis. Needle entry was visualized. Image of ultrasound was saved. 2. Aortogram demonstrates appropriate caliber aorta. Minimal disease. Appropriate take-off of the renals. 3. Iliac images demonstrate no significant disease 4. Left Leg Common femoral artery: No significant disease Profundus Femoris: No significant disease Superficial femoral artery: Calcified but no flow-limiting stenosis Popliteal artery (p1,p2,p3): No significant disease Anterior tibial artery: Occluded and retained foreign body with multiple markers throughout. Peroneal artery: Patent with moderate stenosis at the origin Posterior tibial artery: Occluded Dorsalis pedis/plantar arch: Incomplete Conclusion: 1. Successful endovascular intervention. He does have significant small-vessel disease. 2. Anticoagulation status: He will require 6 months of aspirin and Plavix. This note is constructed using voice recognition software. While every effort has been made to ensure accuracy, payroll representative errors may have been included. Thank you for allowing me to participate in the care of your patient. Yours sincerely, Jens Chatman MD, FACS, R.P.V.I.
--- NOTE | 2024-05-31 11:24 | P.CDIM_ITS ---
PROVIDER RESPONSE TEXT: To clarify, the appropriate diagnosis supported by the clinical indicators: Sepsis with Septic shock: treated QUERY TEXT: PHYSICIAN'S DOCUMENTATION REQUEST Date of Query: 05/31/2024 11:02 AM EST Patient Name: Jr Cruz Admit Date: 05/23/2024 Dear Ian Bolden MD, A review of the medical record indicates additional documentation may be needed. Please review below and update the documentation accordingly. Clinical indicators: ICU progress notes 05/29 & 05/30 - Admitted 05/21/24 with worsening left foot pain and treated for diab etic foot ulcer with hospital course complicated by acute on chronic hypercapnic respiratory failure requiring BIPAP support and transfer to ICU, sepsis requiring pressor support, metabolic encephalopathy and renal failure. BP 95/59 L HR 61 Temp 98.5 WBC 11.8 LA 1.9 poc glucose 44 L Severe Sepsis Sepsis with associated acute organ dysfunction, such as renal or respiratory failure Septic Shock Severe sepsis with associated with circulatory failure, evidenced by hypotension and hypoperfusion Sepsis with Septic shock possible, probable, suspected, treated and resolved etc. Other form of shock Sepsis w/o shock this admit Other (explain) Clinically unable to determine (explain) Thank you, Mandy Parson, CCS, CDIS Use of terms such as suspected, likely, concern for, or probable (associated with a specific diagnosi s that is being evaluated, monitored, or treated as if it exists) are acceptable and can be coded in the inpatient se tting, when documented at the time of discharge. Please use your independent medical judgment in providing your response. THIS QUERY IS PART OF THE PERMANENT MEDICAL RECORD
[2024-05-31 12:20] LABS: Glucose, Whole Blood 87 mg/dL (60-115)
[2024-05-31] MEDS: 0.9 % Sodium Chloride Flush 3 ML SYRINGE IVFLUSH (12:44)
[2024-05-31] MEDS: Potassium Chloride ER 20 MEQ TAB.ER.PRT 40 MEQ PO (12:44)
[2024-05-31] MEDS: Piperacillin Sodium/Tazobactam 3.375 GM in 0.9 % Sodium Chloride 50 ML IV (12:45)
--- NOTE | 2024-05-31 12:55 | P.F2F_ITS ---
Service Date Service Date: 05/31/24 Encounter Date of encounter: 05/31/24 Reasons for Services Signs and symptoms assessed: pain on ambulation Reason for senior care: wound care (Left foot sites - Off Load Pressure - Cleanse and irrigate with NS, Pat dry. Apply barrier to periwound, lightly pack with Gauze Strip packing, be sure to leave a wick to easy removal. Cover with dry gauze, gauze wrap. ), medication management, medication treatment and teach disease management Homebound: Leaving the home is medically contraindicated at this time without the asist of a device and/or another person due th the listed conditions above and below. Reason homebound: pain with ambulation Certification: Based on the above findings, I certify that this patient is confined to the home and needs intermittent senior care care, physical therapy and/or speech therapy, or continues to need occupational therapy. The patient is under my care, and I have initiated the establishment of the plan of care. The patient will be followed by a physician who will periodically review the plan of care. Time Spent With Patient Time: Total time managing care of this patient today ____ minutes.
--- NOTE | 2024-05-31 12:56 | PM.DS ---
DS: Providers Provider Date of Service: 05/31/24 Date of admission: 05/22/24 23:53 Date of discharge: 05/31/24 Primary care physician: ANA ROSA Harris Consults: 05/22/24 23:57 Consult to Infectious Diseases Routine Consulting Provider: Lolita Parikh Reason for consultation: Osteomyelitis 05/23/24 00:11 Consult to Vascular Surgery Routine Consulting Provider: [facility] [facility] Reason for consultation: Left 2nd metatarsal and proximal phalanx osteomyelitis Has provider been notified: No 05/23/24 12:03 Consult to Cardiology Routine Consulting Provider: [facility] Reason for consultation: HFrEF, medical clearance for foot amputation 05/25/24 07:47 Consult to Nephrology Routine Consulting Provider: [facility] Reason for consultation: declan on ckd 05/26/24 08:53 Consult to Infectious Diseases Routine Consulting Provider: LOLITA PARIKH Reason for consultation: Known Osteomyelitis Has provider been notified: No 05/30/24 11:36 Consult to Cardiology Routine Consulting Provider: [facility] Reason for consultation: CHF DS: Diagnosis Discharge Diagnosis (1) Hyperkalemia: Status: Resolved (2) 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: Status: Acute (3) DECLAN (acute kidney injury): Status: Resolved DS: Summary Hospital Course Hospital Course: from initial hpi: 58 years old man with past medical history significant for chronic left diabetic foot/ulcer (recent admission requiring a course of IV daptomycin and ertapenem), PAD, COPD -no home oxygen, AFib on Eliquis, CAD, cardiomyopathy, sleep apnea on CPAP and type 2 diabetes mellitus on insulin presents to the emergency department complaining of worsening left foot pain associated with worsening swelling and discharge coming from plantar ulcer and between 2nd and 3rd toe. He did not report fevers chills. He did not report any acute gastrointestinal, cardiopulmonary or genitourinary symptoms. In the ED, he was found to have normal vital signs. Blood workup showed leukocytosis of 11.5. There is mild lactic acidosis that normalized found 2.2 to 1.3. Hemoglobin is 9.7 which is around baseline. CRP is 9.46. Platelets are normal. INR is 1.4. Creatinine is 1.42 (slightly higher than prior 1.24), CO2 is 33 which is around baseline. LFTs are basically unremarkable. Left foot CT scan showed finding consistent with osteomyelitis showed left 2nd metatarsal and proximal phalanx osteomyelitis without abscesses. ED tx: Morphine 4 mg IV, Zosyn 3.375 g IV, vancomycin 2 g IV hospital course: Patient was admitted for diabetic foot infection with osteomyelitis and cellulitis. Was treated with daptomycin and ertapenem. Was seen by infectious disease who recommended changing to Zosyn. Was seen by vascular performed angiogram with angioplasty and recommended close outpatient follow-up for planned BKA. Patient will continue p.o. doxycycline to bridge until procedure. Course complicated by acute on chronic hypoxic and hypercapnic respiratory failure due to acute on chronic systolic CHF. Was treated with Lasix drip and diuresed well. Now on room air and feeling much better. Will be discharged back on torsemide 20 mg daily, Toprol, Isordil, patient also noted to have acute kidney injury, renal function now at baseline on discharge. For diabetes was continue insulin sliding scale. For paroxysmal atrial fibrillation continued on amiodarone, metoprolol, apixaban. For KIMANI CPAP at night. For COPD continued on Breo and p.r.n. albuterol. For coronary disease and peripheral vascular disease continue on Eliquis, aspirin. Patient is feeling better will be discharged home and will follow up very closely with vascular. Time Attestation Discharge Coordination Time (in mins): 37 Quality: Safe Use of Opioids Does Pt have an Active Cancer Diagnosis on the Problem List?: No Quality: Stroke Does the patient have a stroke diagnosis?: No Physical Exam Vital Signs: Vital Signs: Last Vital Signs Temp 97.4 F 05/31/24 12:07 Pulse 77 05/31/24 12:07 Resp 18 05/31/24 12:07 BP 121/68 05/31/24 12:07 Pulse Ox 98 05/31/24 12:07 O2 Del Method Room Air 05/31/24 12:07 O2 Flow Rate 2 05/31/24 11:35 FiO2 28 05/28/24 20:00 Oxygen Flow Rate 28 05/27/24 12:00 BMI result Body Mass Index 27.2 Const: General: no acute distress Neck: Neck: Yes no JVD Resp: Effort & Inspection: normal respiratory effort Auscultation: clear to auscultation bilaterally Cardio: Jugular venous distension: no JVD Rate: regular rate Rhythm: regular rhythm Heart sounds: S1 normal heart sound present and S2 normal heart sound present GI: Palpation (GI): Soft to palpation and nontender Skin: Rashes: no rashes Wounds: wounds noted (left toe wound covered in gauze dressing. ) Extrem: General: No edema DS: Data Data Completed and Pending Completed studies during hospitalization [Text1]: Procedures Assistance with Respiratory Ventilation, 24-96 Consecutive Hours, Continuous Positive Airway Pressure (05/03/24) Assistance with Respiratory Ventilation, Less than 24 Consecutive Hours, Continuous Positive Airway Pressure (04/19/24) Insertion of Infusion Device into Superior Vena Cava, Percutaneous Approach (03/23/24) Performance of Urinary Filtration, Intermittent, Less than 6 Hours Per Day (03/23/24) Spiritism of Cardiac Rhythm, Single (06/23/21) Ultrasonography of Superior Vena Cava, Guidance (03/23/24) Labs on day of discharge: Laboratory Results - last 24 hr 05/30/24 05/30/24 05/30/24 11:53 18:30 20:14 WBC RBC Hgb Hct MCV MCH MCHC RDW Plt Count MPV Immature Gran % (Auto) Neut % (Auto) Lymph % (Auto) [place] % (Auto) Eos % (Auto) Baso % (Auto) Lymph # (Auto) [place] # (Auto) Eos # (Auto) Baso # (Auto) Abs Immat Gran (auto) Absolute Neuts (auto) Absolute Nucleated RBC Nucleated RBC % (auto) Smear Tech's Comments Sodium 141 Potassium 4.6 D Chloride 98 Carbon Dioxide 35 H Anion Gap 13 BUN 29 H Creatinine 0.93 Estim Creat Clear Calc 89.9 Estimated GFR > 60 POC Glucose 101 158 H Random Glucose 138 H Calcium 9.1 Phosphorus Magnesium Albumin 05/31/24 05/31/24 05/31/24 06:10 07:26 12:16 WBC 7.6 RBC 3.99 L Hgb 9.4 L Hct 30.4 L MCV 76.2 L MCH 23.6 L MCHC 30.9 L RDW 25.2 H Plt Count 113 L D MPV 10.6 Immature Gran % (Auto) 0.3 Neut % (Auto) 44.7 L Lymph % (Auto) 23.9 [place] % (Auto) 10.0 Eos % (Auto) 20.3 H Baso % (Auto) 0.8 Lymph # (Auto) 1.8 [place] # (Auto) 0.8 Eos # (Auto) 1.5 H Baso # (Auto) 0.1 Abs Immat Gran (auto) 0.02 Absolute Neuts (auto) 3.4 Absolute Nucleated RBC 0.000 Nucleated RBC % (auto) 0.0 Smear Tech's Comments VERIFIED Sodium 139 Potassium 3.3 D Chloride 100 Carbon Dioxide 29 Anion Gap 13 BUN 33 H Creatinine 0.91 Estim Creat Clear Calc 90.7 Estimated GFR > 60 POC Glucose 85 87 Random Glucose 83 Calcium 9.0 Phosphorus 2.8 Magnesium 1.9 Albumin 3.7 Discharge Plan Discharge Anticipated Discharge Date/Time: 05/31/24 12:49 Patient Disposition: Home Health Service Discharge Diagnosis: chf, om, copd Referrals: Phi Crisostomo FNP-BC [Primary Care Provider] - 1 Week Jens Salinas MD [Physician] - 1 Week Discharge Medications: New oxycodone 5 mg Tablet 5 mg PO Q4H PRN (Reason: Pain, Moderate(Pain Scale 4-6)) Qty: 20 0RF Rx Instructions: Partial Fill upon patient request. doxycycline hyclate 100 mg capsule 100 mg PO BID Qty: 14 0RF Continued (DME) pen needle, diabetic [BD Ultra-Fine Mini Pen Needle] 31 gauge x 3/16 needle See Rx Instructions .Route Qty: 400 1RF Rx Instructions: As directed to inject insulin 4 times per day (DME) diabetic shoes with custom insert for left shoe See Rx Instructions .Route .MEDSUPPLY Qty: 1 0RF Rx Instructions: As directed aspirin [Adult Low Dose Aspirin] 81 mg tablet,delayed release (DR/EC) 81 mg PO DAILY Qty: 90 1RF melatonin 3 mg tablet 3 mg PO BEDTIME Qty: 90 1RF omeprazole 20 mg capsule,delayed release(DR/EC) 20 mg PO DAILY@0630 90 Days Qty: 90 1RF thiamine HCl (vitamin B1) 100 mg tablet 100 mg PO DAILY Qty: 90 1RF sertraline 25 mg tablet 25 mg PO DAILY Qty: 90 1RF (DME) FreeStyle Samantha 3 Sensor Device See Rx Instructions .Route Qty: 6 1RF Rx Instructions: Test blood sugar TID (DME) FreeStyle Lite Strips Strip See Rx Instructions .Route Qty: 300 1RF Rx Instructions: TID testing gabapentin 300 mg capsule 300 mg PO TID Qty: 270 1RF amiodarone 200 mg tablet 200 mg PO DAILY Qty: 90 3RF sennosides [senna] 8.6 mg tablet 17.2 mg PO BEDTIME albuterol sulfate 2.5 mg /3 mL (0.083 %) solution for nebulization 2.5 mg inhalation Q6H PRN (Reason: Shortness Of Breath Or Wheezing) fluticasone propion-salmeterol [Advair HFA] 45-21 mcg/actuation Hfa Aerosol Inhaler 2 puff INHALATION BID Eliquis 5 mg tablet 5 mg PO BID Jardiance 10 mg tablet 10 mg PO DAILY metoprolol succinate 25 mg Tablet Extended Release 24 Hr 25 mg PO DAILY Qty: 30 0RF Protocol: Hold for SBP/HR < HOLD for SBP < : 90 HOLD for HR < : 60 isosorbide dinitrate 5 mg Tablet 5 mg PO 0800,1300,1800 Qty: 90 0RF Protocol: Hold for SBP< HOLD for SBP < : 90 insulin glargine [Lantus Solostar U-100 Insulin] 100 unit/mL (3 mL) insulin pen 17 unit subcut BEDTIME insulin lispro 100 unit/mL Solution 7 unit SUBCUT TIDAC colchicine 0.6 mg Tablet 0.6 mg PO DAILY torsemide 20 mg tablet 20 mg PO DAILY Qty: 30 0RF ferrous sulfate [Iron (ferrous sulfate)] 325 mg (65 mg iron) tablet 325 mg PO DAILY Qty: 30 0RF Discharge Orders: Discharge Order (Routine); Ordered 05/31/24 Ordered By: Jordan Rojas Diet: Diabetic diet Activity on Discharge: As tolerated Stand Alone Forms: Patient Portal Discharge page Print Language: Lebanese Care Plan Goals: maange om, dfu, chf Health Concerns: om, dfu, chf Plan of Treatment: Left foot sites - Off Load Pressure - Cleanse and irrigate with NS, Pat dry.? Apply barrier to periwound, lightly pack with Gauze Strip packing, be sure to leave a wick to easy removal.? Cover with dry gauze, gauze wrap.? Change Daily. follow up with dr salinas for amputation next week, continue doxycyline to keep infeciton in check, avoid salty food, excess fluids Assessment: see above
--- NOTE | 2024-05-31 13:51 | MHC.CM.PN ---
Second IMM 05/31/24, pt has been medically cleared for DC, he will go home via private transport. [facility], referrals are out to other VNA's, MD and pt are aware.
[2024-05-31] MEDS: Heparin Sodium,Porcine 5,000 UNIT/ML VIAL 5000 UNIT SUBCUT (14:40)
--- NOTE | 2024-05-31 15:49 | PC.NURSE ---
At 1440pm this RN gave 5000 units Subcut Heparine per order.
[2024-06-05 08:19] LABS: ACT 181 Celite s (79-173)
== END 2024-05-31 14:48 | disposition home health service (06) | DRG 252 ==
LOC: HO.ED 21:35 → HO.EDOVER 05-23 00:04 → HO.S3 05-23 00:09 → HO.EDOVER 05-26 03:31 → HO.ICU 05-26 03:41 → HO.IMC 05-30 12:39
PROVIDERS: Family Medicine; Internal Medicine; Internal Medicine Critical Care Medicine; Internal Medicine Pulmonary Disease; Nurse Practitioner Acute Care; Nurse Practitioner Family; Physician Assistant; Registered Nurse Community Health; Surgery Vascular Surgery; Admitting Provider Internal Medicine; Emergency Provider Student in an Organized Health Care Education/Training Program; PCP Nurse Practitioner Family; Visit Provider Internal Medicine
PROC: 047S3Z1 Dilation of Left Posterior Tibial Artery using Drug-Coated Balloon, Percutaneous Approach (ICD-10-PCS; principal; 2024-05-31 09:00)
DX: E11.51 Type 2 diabetes mellitus with diabetic peripheral angiopathy without gangrene (principal); A41.9 Sepsis, unspecified organism; R65.21 Severe sepsis with septic shock; J96.21 Acute and chronic respiratory failure with hypoxia; J96.22 Acute and chronic respiratory failure with hypercapnia; G92.8 Other toxic encephalopathy; I50.23 Acute on chronic systolic (congestive) heart failure; M86.172 Other acute osteomyelitis, left ankle and foot; M86.672 Other chronic osteomyelitis, left ankle and foot; N17.9 Acute kidney failure, unspecified; L97.529 Non-pressure chronic ulcer of other part of left foot with unspecified severity; I70.245 Atherosclerosis of native arteries of left leg with ulceration of other part of foot; E11.69 Type 2 diabetes mellitus with other specified complication; L03.032 Cellulitis of left toe; E11.628 Type 2 diabetes mellitus with other skin complications; Z95.810 Presence of automatic (implantable) cardiac defibrillator; N18.30 Chronic kidney disease, stage 3 unspecified; E11.22 Type 2 diabetes mellitus with diabetic chronic kidney disease; I25.10 Atherosclerotic heart disease of native coronary artery without angina pectoris; F39 Unspecified mood [affective] disorder; E11.649 Type 2 diabetes mellitus with hypoglycemia without coma; E11.42 Type 2 diabetes mellitus with diabetic polyneuropathy; I25.5 Ischemic cardiomyopathy; I48.0 Paroxysmal atrial fibrillation; Z95.5 Presence of coronary angioplasty implant and graft; F17.210 Nicotine dependence, cigarettes, uncomplicated; Z71.6 Tobacco abuse counseling; Z79.4 Long term (current) use of insulin; Z79.82 Long term (current) use of aspirin; Z79.899 Other long term (current) drug therapy
CPT/HCPCS: 36415; 36600; 37228; 37232; 71045; 73620; 73701; 75630; 76700; 76937; 80048; 80053; 81001; 81003; 82040; 82140; 82803; 82947; 83605; 83735; 83880; 83970; 84100; 84443; 85025; 85027; 85347; 85652; 86140; 87040; 93005; 93308; 94640; 94660; 99152; 99153; 99285; C1725; C1758; C1760; C1769; C1887; C1894; J0131; J0613; J0878; J1120; J1171; J1644; J1940; J2060; J2185; J2250; J2270; J2405; J2543; J3010; J3370; J3475; J7120; P9047; Q9967

== ENCOUNTER 2024-05-22 23:53 | Outpatient (BNV) | payer OTHER, SELFPAY | END 2024-05-24 11:40 | PROVIDERS: Admitting Provider Internal Medicine; Emergency Provider Student in an Organized Health Care Education/Training Program; PCP Nurse Practitioner Family; Visit Provider Internal Medicine | DX: R94.31 Abnormal electrocardiogram [ECG] [EKG] (principal) | CPT/HCPCS: 93010 ==

== ENCOUNTER 2024-05-22 23:53 | Outpatient (BNV) | payer OTHER, SELFPAY | END 2024-05-26 09:31 | PROVIDERS: Admitting Provider Internal Medicine; Emergency Provider Student in an Organized Health Care Education/Training Program; PCP Nurse Practitioner Family; Visit Provider Internal Medicine | DX: I50.9 Heart failure, unspecified (principal) | CPT/HCPCS: 93010; 93308 ==

== ENCOUNTER → 2024-05-22 23:53 | Outpatient (BNV) | payer OTHER, SELFPAY | PROVIDERS: Admitting Provider Internal Medicine; Emergency Provider Student in an Organized Health Care Education/Training Program; PCP Nurse Practitioner Family; Visit Provider Internal Medicine | DX: Z01.810 Encounter for preprocedural cardiovascular examination (principal); I48.0 Paroxysmal atrial fibrillation; I50.20 Unspecified systolic (congestive) heart failure; F17.210 Nicotine dependence, cigarettes, uncomplicated; I25.10 Atherosclerotic heart disease of native coronary artery without angina pectoris | CPT/HCPCS: 99223 ==

== ENCOUNTER → 2024-05-22 23:53 | Outpatient (BNV) | payer OTHER, SELFPAY | PROVIDERS: Admitting Provider Internal Medicine; Emergency Provider Student in an Organized Health Care Education/Training Program; PCP Nurse Practitioner Family; Visit Provider Internal Medicine Pulmonary Disease | DX: I50.20 Unspecified systolic (congestive) heart failure (principal); E11.621 Type 2 diabetes mellitus with foot ulcer; L97.509 Non-pressure chronic ulcer of other part of unspecified foot with unspecified severity; E11.628 Type 2 diabetes mellitus with other skin complications; L08.9 Local infection of the skin and subcutaneous tissue, unspecified; N17.9 Acute kidney failure, unspecified; M86.9 Osteomyelitis, unspecified; G47.33 Obstructive sleep apnea (adult) (pediatric); J44.9 Chronic obstructive pulmonary disease, unspecified | CPT/HCPCS: 99232; 99291 ==

== ENCOUNTER → 2024-05-22 23:53 | Outpatient (BNV) | payer OTHER, SELFPAY | PROVIDERS: Admitting Provider Internal Medicine; Emergency Provider Student in an Organized Health Care Education/Training Program; PCP Nurse Practitioner Family; Visit Provider Internal Medicine | DX: E11.628 Type 2 diabetes mellitus with other skin complications (principal); L08.9 Local infection of the skin and subcutaneous tissue, unspecified; M86.9 Osteomyelitis, unspecified | CPT/HCPCS: 99222 ==

== ENCOUNTER → 2024-05-22 23:53 | Outpatient (BNV) | payer OTHER, SELFPAY | PROVIDERS: Admitting Provider Internal Medicine; Emergency Provider Student in an Organized Health Care Education/Training Program; PCP Nurse Practitioner Family; Visit Provider Internal Medicine | DX: E87.5 Hyperkalemia (principal); E11.621 Type 2 diabetes mellitus with foot ulcer; L97.529 Non-pressure chronic ulcer of other part of left foot with unspecified severity; N17.9 Acute kidney failure, unspecified | CPT/HCPCS: 99223; 99232; 99239; 99499; G0180 ==

== ENCOUNTER → 2024-05-22 23:53 | Outpatient (BNV) | payer OTHER, SELFPAY | PROVIDERS: Admitting Provider Internal Medicine; Emergency Provider Student in an Organized Health Care Education/Training Program; PCP Nurse Practitioner Family; Visit Provider Internal Medicine Critical Care Medicine | DX: J44.9 Chronic obstructive pulmonary disease, unspecified (principal); M86.9 Osteomyelitis, unspecified; N28.9 Disorder of kidney and ureter, unspecified; G47.33 Obstructive sleep apnea (adult) (pediatric) | CPT/HCPCS: 99291 ==

== ENCOUNTER → 2024-05-22 23:53 | Outpatient (BNV) | payer OTHER, SELFPAY | PROVIDERS: Admitting Provider Internal Medicine; Emergency Provider Student in an Organized Health Care Education/Training Program; PCP Nurse Practitioner Family; Visit Provider Physician Assistant Surgical | DX: E11.628 Type 2 diabetes mellitus with other skin complications (principal); L08.9 Local infection of the skin and subcutaneous tissue, unspecified | CPT/HCPCS: 37228; 75625; 75710; 76937; 99152; 99222; 99232; 99233; 99499 ==

== ENCOUNTER → 2024-05-22 23:53 | Outpatient (BNV) | payer OTHER, SELFPAY | PROVIDERS: Admitting Provider Internal Medicine; Emergency Provider Student in an Organized Health Care Education/Training Program; PCP Nurse Practitioner Family; Visit Provider Nurse Practitioner Family | DX: E87.5 Hyperkalemia (principal); N17.9 Acute kidney failure, unspecified; E11.621 Type 2 diabetes mellitus with foot ulcer; L97.529 Non-pressure chronic ulcer of other part of left foot with unspecified severity | CPT/HCPCS: 99222; 99232 ==

== ENCOUNTER 2024-06-05 11:57 | Outpatient (AMB) | payer OTHER, SELFPAY ==
--- NOTE | 2024-06-05 12:12 | HO.NEPHOV_ITS ---
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 He says he is pending amputation. He has had multiple recent admissions for CHF exacerbation.His serum creatinine on 05/22 was 1.42, trending upward, peaked at 4.12 on 05/26 which improved to baseline with supportive care including diuretic infusion. He also received daptomycin and meropenem for management of infection. He is seen in follow up today [facility] Medical History (Updated 06/05/24 @ 22:28 by Jose Alfredo Chatterjee MD) 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 DECLAN (acute kidney injury) Diabetic infection of left foot CHF (congestive heart failure) RIC (iron deficiency anemia) Nicotine dependence PAD (peripheral artery disease) Foot ulcer, left Acute on chronic HFrEF (heart failure with reduced ejection fraction) History of osteomyelitis Diverticulosis Tubular adenoma of colon (~2017) History of COVID-19 Nicotine dependence, cigarettes, uncomplicated Hypertensive retinopathy Microhematuria ICD (implantable cardioverter-defibrillator) in place COPD (chronic obstructive pulmonary disease) KIMANI (obstructive sleep apnea) Sleep apnea CAD (coronary artery disease) Paroxysmal atrial fibrillation (~2016) Surgical History History of amputation of left great toe History of cardiac cath History of ankle surgery History of implantable cardiac defibrillator (ICD) History of colonoscopy History of heart artery stent History of cardiac radiofrequency ablation History of cardioversion History of esophagogastroduodenoscopy History of umbilical hernia History of inguinal hernia Family History Father Atherosclerosis Mother Cerebral aneurysm Maternal Grandmother Unknown family medical history Mother Cerebral hemorrhage Father Coronary artery disease Social History Household Members: None Housing: House Are you a primary day care home provider to a significant other at home: No Do you presently have visiting nurse or other home services: Yes Alcohol intake: former Comment: refuses assistance OOB/high falls measures Patient Tobacco Use Status: Current everyday Tobacco user Tobacco use type: Cigarette Cigarette Packs Per Day: 1 Cigarettes Per Day: 2 Years Smoked: (current smoker - onset 14yo, 1ppd x 43yrs, 40pyh) e-Cigarette/Vaping Use: Never Used Second Hand Smoke Exposure: Yes Advance Directives Date on File: 07/09/21 service: No Current occupational status: unemployed and disabled Current occupation: rt handed Cognitive needs: No Hearing needs: No Vision needs: Yes Review of Systems Const All systems reviewed & are unremarkable except as noted in HPI and below Physical Exam Vital Signs: Last Vital Signs BP 90/60 06/05/24 12:16 BMI result Body Mass Index 28.8 Const General: comfortable and no acute distress Orientation/consciousness: patient oriented x3 HEENT Head: Yes normocephalic Mouth: Normal oral and palatal mucosa present Eyes EOM: EOMs intact bilaterally Neck Neck: Yes supple Resp Auscultation: clear to auscultation bilaterally Cardio Jugular venous distension: no JVD Rate: regular rate GI Palpation (GI): Soft to palpation Auscultation: normal bowel sounds General: Yes no CVA tenderness Back/Spine/Pelvis Back: no CVA tenderness Skin General skin exam: no rashes or lesions noted Neuro General: patient oriented x3 and moves all extremities Results Reviewed Nephrology Results: Hgb 9.4 g/dl (14.0-18.0) L 05/31/24 WBC 7.6 X10*3/uL (4.8-10.8) 05/31/24 Plt Count 113 X10*3/uL (160-400) L 05/31/24 Sodium 139 mmol/L (135-145) 05/31/24 Potassium 3.3 mmol/L (3.3-5.1) 05/31/24 Chloride 100 mmol/L (96-108) 05/31/24 Carbon Dioxide 29 mmol/L (22-29) 05/31/24 BUN 33 mg/dL (9-16) H 05/31/24 Creatinine 0.91 mg/dL (0.5-1.4) 05/31/24 Calcium 9.0 mg/dL (8.4-10.2) 05/31/24 Phosphorus 2.8 mg/dL (2.7-4.5) 05/31/24 PTH Intact 442.8 pg/mL (8.7-77.1) H 05/26/24 Urine Protein 100 (2+) mg/dL (Neg-Trace) H 05/26/24 Assessment & Plan Assessment & Plan (1) Hypertension: Code(s): I10 - Essential (primary) hypertension Category: Medical Qualifiers: Hypertension type: primary hypertension Qualified Code(s): I10 - Essential (primary) hypertension (2) Diabetic nephropathy associated with type 2 diabetes mellitus: Code(s): E11.21 - Type 2 diabetes mellitus with diabetic nephropathy Category: Medical Plan He recently had DECLAN likely tubular injury in the setting of diuretic and ARB use while he had hypotension. He also had a component of cardiorenal syndrome given continued improvement with aggressive diuresis .Renal function back to baseline . I plan to increase Jardiance to 25 mg daily and add ACEI if his hemodynamics and serum K permit. Follow up labs ordered. Answered all questions. Orders: Orders Calcium 4 Months I10 - Essential (primary) hypertension Protein Creatinine Ratio, Ur 4 Months I10 - Essential (primary) hypertension Creatinine 4 Months I10 - Essential (primary) hypertension Blood Urea Nitrogen 4 Months I10 - Essential (primary) hypertension Electrolytes 4 Months I10 - Essential (primary) hypertension Coding Level of Care Code Est Pt Level 4 (62681) Diagnoses Primary hypertension I10 Hypertension type: primary hypertension Diabetic nephropathy associated with type 2 diabetes mellitus E11.21
[2024-06-05 12:16] VITALS: BP 90/60; BMI 28.8
== END 2024-06-05 12:37 | disposition home or self-care (01) ==
PROVIDERS: PCP Nurse Practitioner Family; Visit Provider Internal Medicine Nephrology
DX: I10 Essential (primary) hypertension (principal); E11.21 Type 2 diabetes mellitus with diabetic nephropathy
CPT/HCPCS: 99214

== ENCOUNTER → 2024-06-05 11:57 | Outpatient (BNVA) | payer OTHER, SELFPAY | PROVIDERS: PCP Nurse Practitioner Family; Visit Provider Internal Medicine Nephrology | DX: E11.21 Type 2 diabetes mellitus with diabetic nephropathy (principal); I10 Essential (primary) hypertension | CPT/HCPCS: 99212 ==

== ENCOUNTER 2024-06-13 12:37 | Outpatient (AMB) | payer OTHER, SELFPAY ==
--- OUTSIDE RECORDS SUMMARY | 2024-06-13 12:44 | XMS_ITS ---
Author Name [facility] Organization Unknown Results Test Name/Text Value Interpretation Date Range Source AST SerPl-cCnc 25U/L Normal [id number] 10 - 55 [facility] ALT SerPl-cCnc 27U/L Normal [id number] 10 - 55 [facility] Creat SerPl-mCnc 1mg/dL Normal [id number] 0.5 - 1.3 [facility] Globulin Ser Calc-mCnc 3.2g/dL Normal [id number] 1.5 - 3.9 [facility] CO2 SerPl-sCnc 31mmol/L Normal [id number] 22 - 33 HH CCT Albumin/Glob SerPl 0.9Ratio Below low normal 601842692775 1 - 3 [facility] Anion Gap Bld-sCnc 9 Normal [id number] 7 - 17 [facility] Potassium SerPl-sCnc 4.2mmol/L Normal [id number] 3.4 - 5.3 [facility] Bilirub SerPl-mCnc 0.5mg/dL Normal [id number] 0.2 - 1 [facility] Calcium SerPl-mCnc 8.5mg/dL Below low normal 399465107068 8 .7 - 10.5 [facility] BUN SerPl-mCnc 18mg/dL Normal [id number] 8 - 21 HH CCT ALP SerPl-cCnc 145U/L Above high normal [id number] 45 - 128 [facility] GFR/BSA.pred SerPlBld UKD-LGD-CrLHqr 86 Normal [id number] 59 - H[facility]CT Chloride SerPl-sCnc 103mmol/L Normal [id number] 98 - 107 [facility] BUN/Creat SerPl 18Ratio Normal [id number] 10 - 25 H [facility] Albumin SerPl-mCnc 3g/dL Below low normal [id number] 3 .5 - 5 [facility] Prot SerPl-mCnc 6.2g/dL Below low normal [id number] 6.3 - 8.3 [facility] Glucose SerPl-mCnc 252mg/dL Above high normal [id number] 65 - 99 [facility] Sodium SerPl-sCnc 143mmol/L Normal [id number] 136 - 145 [facility] pro BNP, N-terminal 58679jh/mL Above high normal 240949212957 - 125 [facility] INR PPP 1.5 Normal [id number] [facility] Prothrombin time 17.6seconds Above high normal [id number] 10 - 13.5 [facility] Neutrophils num Bld Auto 4.49Thou/uL Normal [id number] 2 - 7.5 [facility] Monocytes num Bld Auto 0.69Thou/uL Normal [id number] 0.2 - 1.5 [facility] Eosinophil num Bld Auto 1.85Thou/uL Above high normal [id number] 0 - 0.7 [facility] WBC num Bld Auto 8.8Thou/uL Normal [id number] 4 - 11 [facility] MCHC RBC Auto-mCnc 28.1g/dL Below low normal 688662343710 3 0 - 36 [facility] Monocytes/leuk NFr Bld Auto 7.9% Normal [id number] [facility] Hct VFr Bld Auto 33.5% Below low normal [id number] 39 - 54 [facility] RBC num Bld Auto 4.35Mil/uL Below low normal [id number] 4. 5 - 6.2 [facility] RDW RBC Auto-Rto 20.9% Above high normal [id number] 11.5 - 14.5 [facility] PMV Bld Auto 10.1fL Normal [id number] 7.5 - 12.[address] Eosinophil/leuk NFr Bld Auto 21.1% Normal [id number] H[facility]CT MCH RBC Qn Auto 21.6pg Below low normal [id number] 27 - 31 [facility] Basophils/leuk NFr Bld Auto 0.9% Normal [id number] [facility]CT Basophils num Bld Auto 0.08Thou/uL Normal [id number] 0 - 0.2 [facility] Platelet num Bld Auto 349Thou/uL Normal [id number] 150 - 450 [facility] Neutrophils/leuk NFr Bld Auto 51.1% Normal [id number] H[facility]CT MCV RBC Auto 77fL Below low normal [id number] 80 - 10 0 [facility] Lymphocytes/leuk NFr Bld Auto 18.7% Normal [id number] H[facility]CT Lymphocytes num Bld Auto 1.64Thou/uL Normal [id number] 1.5 - 4.5 [facility]CT Imm Granulocytes/leuk NFr Bld Auto 0.3% Normal [id number] [facility]CT Hgb Bld-mCnc 9.4g/dL Below low normal [id number] 13 - 17 .7 [facility]CT Imm Granulocytes num Bld Auto 0.03Thou/uL Normal [id number] 0 - 0.1 H[facility]CT Anticoagulant OTHER AGENT OR UNKNOWN Normal [id number] HHCCT POC Glucose 135mg/dL Above high normal [id number] 65 - 99 [facility]CT Magnesium SerPl-mCnc 2.5mg/dL Normal [id number] 1.6 - 2.7 HHCCT Calcium SerPl-mCnc 9.4mg/dL Normal [id number] 8.7 - 10 .5 H[facility]CT BUN SerPl-mCnc 42mg/dL Above high normal [id number] 8 - 21 [facility]CT Creat SerPl-mCnc 1.3mg/dL Normal [id number] 0.5 - 1.3 HHCCT GFR/BSA.pred SerPlBld CAH-XIR-JkQQlp 63 Normal [id number] 59 - HHCCT Chloride SerPl-sCnc 98mmol/L Normal [id number] 98 - 107 [facility]CT BUN/Creat SerPl 32Ratio Above high normal [id number] 10 - 25 [facility]CT CO2 SerPl-sCnc 32mmol/L Normal [id number] 22 - 33 HH CCT Anion Gap Bld-sCnc 8 Normal [id number] 7 - 17 [facility]CT Potassium SerPl-sCnc 5.2mmol/L Normal [id number] 3.4 - 5.3 [facility]CT Glucose SerPl-mCnc 86mg/dL Normal [id number] 65 - 99 [facility]CT Sodium SerPl-sCnc 138mmol/L Normal [id number] 136 - 145 [facility]CT Phosphate SerPl-mCnc 5.1mg/dL Above high normal [id number] 2.7 - 4.5 HHCCT RBC num Bld Auto 4.43Mil/uL Below low normal [id number] 4. 5 - 6.2 [facility]CT RDW RBC Auto-Rto 15.8% Above high normal [id number] 11.5 - 14.5 H[facility]CT PMV Bld Auto 10.7fL Normal [id number] 7.5 - 12.[address] MCH RBC Qn Auto 28.2pg Normal [id number] 27 - 31 H HCCT WBC num Bld Auto 11Thou/uL Normal [id number] 4 - 11 [facility]CT Platelet num Bld Auto 272Thou/uL Normal [id number] 150 - 450 [facility]CT MCHC RBC Auto-mCnc 31.2g/dL Normal [id number] 30 - 36 H[facility]CT Hct VFr Bld Auto 40.1% Normal [id number] 39 - 54 [facility]CT MCV RBC Auto 91fL Normal [id number] 80 - 100 HHCC T Hgb Bld-mCnc 12.5g/dL Below low normal [id number] 13 - 17 .7 HHCCT POC Glucose 85mg/dL Normal [id number] 65 - 99 [facility]CT POC Glucose 140mg/dL Above high normal [id number] 65 - 99 [facility]CT POC Glucose 217mg/dL Above high normal [id number] 65 - 99 [facility]CT POC Glucose 142mg/dL Above high normal [id number] 65 - 99 HHCCT Calcium SerPl-mCnc 9.2mg/dL Normal [id number] 8.7 - 10 .5 HHCCT BUN SerPl-mCnc 44mg/dL Above high normal [id number] 8 - 21 HHCCT Creat SerPl-mCnc 1.2mg/dL Normal [id number] 0.5 - 1.3 HHCCT GFR/BSA.pred SerPlBld QGZ-BFP-DfEZai 69 Normal [id number] 59 - HHCCT Chloride SerPl-sCnc 97mmol/L Below low normal [id number] 98 - 107 H[facility]CT BUN/Creat SerPl 37Ratio Above high normal [id number] 10 - 25 HHCCT CO2 SerPl-sCnc 29mmol/L Normal [id number] 22 - 33 HH CCT Anion Gap Bld-sCnc 10 Normal [id number] 7 - 17 HHCCT Potassium SerPl-sCnc 4.7mmol/L Normal [id number] 3.4 - 5.3 HHCCT Glucose SerPl-mCnc 105mg/dL Above high normal [id number] 65 - 99 HHCCT Sodium SerPl-sCnc 136mmol/L Normal [id number] 136 - 145 HHCCT Magnesium SerPl-mCnc 2.5mg/dL Normal [id number] 1.6 - 2.7 HHCCT Phosphate SerPl-mCnc 5mg/dL Above high normal [id number] 2.7 - 4.5 HHCCT Neutrophils num Bld Auto 8.49Thou/uL Above high normal [id number] 2 - 7.5 HHCCT Monocytes num Bld Auto 0.92Thou/uL Normal [id number] 0.2 - 1.5 HHCCT Eosinophil num Bld Auto 0.43Thou/uL Normal [id number] 0 - 0.7 HHCCT WBC num Bld Auto 13.1Thou/uL Above high normal [id number] 4 - 11 H[facility]CT MCHC RBC Auto-mCnc 31g/dL Normal [id number] 30 - 36 H[facility]CT Monocytes/leuk NFr Bld Auto 7% Normal [id number] HHCCT Hct VFr Bld Auto 39% Normal [id number] 39 - 54 H[facility]CT RBC num Bld Auto 4.39Mil/uL Below low normal [id number] 4. 5 - 6.2 H[facility]CT RDW RBC Auto-Rto 15.9% Above high normal [id number] 11.5 - 14.5 HHCCT PMV Bld Auto 10.9fL Normal [id number] 7.5 - 12.[address] Eosinophil/leuk NFr Bld Auto 3.3% Normal [id number] HHCCT MCH RBC Qn Auto 27.6pg Normal [id number] 27 - 31 H HCCT Basophils/leuk NFr Bld Auto 1.1% Normal [id number] HHCCT Basophils num Bld Auto 0.14Thou/uL Normal [id number] 0 - 0.2 [facility]CT Platelet num Bld Auto 296Thou/uL Normal [id number] 150 - 450 [facility]CT Neutrophils/leuk NFr Bld Auto 65% Normal [id number] HHCCT MCV RBC Auto 89fL Normal [id number] 80 - 100 HHCC T Lymphocytes/leuk NFr Bld Auto 22.9% Normal [id number] HHCCT Lymphocytes num Bld Auto 2.99Thou/uL Normal [id number] 1.5 - 4.5 HHCCT Imm Granulocytes/leuk NFr Bld Auto 0.7% Normal [id number] HHCCT Hgb Bld-mCnc 12.1g/dL Below low normal [id number] 13 - 17 .7 HHCCT Imm Granulocytes num Bld Auto 0.09Thou/uL Normal [id number] 0 - 0.1 HHCCT POC Glucose 114mg/dL Above high normal 783410910834 65 - 99 [facility]CT POC Glucose 167mg/dL Above high normal [id number] 65 - 99 HHCCT POC Glucose 134mg/dL Above high normal [id number] 65 - 99 HHCCT POC Glucose 120mg/dL Above high normal [id number] 65 - 99 HHCCT LDLc SerPl Calc-mCnc 23mg/dL Normal [id number] - 130 HHCCT Trigl SerPl-mCnc 69mg/dL Normal [id number] - 150 HHCCT HDLc SerPl-mCnc 34mg/dL Below low normal [id number] 39 - HHCCT Cholest SerPl-mCnc 71mg/dL Normal [id number] - 200 HHCCT HDLc SerPl 2.1Ratio Normal [id number] 0 - 5 HHCCT Phosphate SerPl-mCnc 4.9mg/dL Above high normal [id number] 2.7 - 4.5 HHCCT Calcium SerPl-mCnc 9.3mg/dL Normal [id number] 8.7 - 10 .5 HHCCT BUN SerPl-mCnc 48mg/dL Above high normal [id number] 8 - 21 HHCCT Creat SerPl-mCnc 1.2mg/dL Normal [id number] 0.5 - 1.3 HHCCT GFR/BSA.pred SerPlBld SJU-ZID-CwCBbg 69 Normal [id number] 59 - HHCCT Chloride SerPl-sCnc 98mmol/L Normal [id number] 98 - 107 HHCCT BUN/Creat SerPl 40Ratio Above high normal [id number] 10 - 25 HHCCT CO2 SerPl-sCnc 26mmol/L Normal [id number] 22 - 33 HH CCT Anion Gap Bld-sCnc 11 Normal [id number] 7 - 17 HHCCT Potassium SerPl-sCnc 4.9mmol/L Normal [id number] 3.4 - 5.3 HHCCT Glucose SerPl-mCnc 127mg/dL Above high normal [id number] 65 - 99 HHCCT Sodium SerPl-sCnc 135mmol/L Below low normal 106222017076 13 6 - 145 HHCCT Magnesium SerPl-mCnc 2.6mg/dL Normal [id number] 1.6 - 2.7 HHCCT RBC num Bld Auto 4.43Mil/uL Below low normal [id number] 4. 5 - 6.2 HHCCT RDW RBC Auto-Rto 15.6% Above high normal [id number] 11.5 - 14.5 HHCCT PMV Bld Auto 10.6fL Normal [id number] 7.5 - 12.[address] MCH RBC Qn Auto 28.2pg Normal [id number] 27 - 31 H HCCT WBC num Bld Auto 15Thou/uL Above high normal [id number] 4 - 11 [facility]CT Platelet num Bld Auto 320Thou/uL Normal [id number] 150 - 450 H[facility]CT MCHC RBC Auto-mCnc 31.3g/dL Normal [id number] 30 - 36 HHCCT Hct VFr Bld Auto 39.9% Normal [id number] 39 - 54 HHCCT MCV RBC Auto 90fL Normal [id number] 80 - 100 HH[facility] T Hgb Bld-mCnc 12.5g/dL Below low normal [id number] 13 - 17 .7 HHCCT POC Glucose 129mg/dL Above high normal [id number] 65 - 99 HHCCT POC Glucose 135mg/dL Above high normal [id number] 65 - 99 HHCCT POC Glucose 150mg/dL Above high normal [id number] 65 - 99 HHCCT POC Glucose 147mg/dL Above high normal [id number] 65 - 99 HHCCT POC Glucose 148mg/dL Above high normal [id number] 65 - 99 HHCCT POC Glucose 117mg/dL Above high normal [id number] 65 - 99 HHCCT Magnesium SerPl-mCnc 2.3mg/dL Normal [id number] 1.6 - 2.7 HHCCT CK SerPl-cCnc 15U/L Below low normal [id number] 24 - 2 04 HHCCT AST SerPl-cCnc 22U/L Normal [id number] 10 - 55 HH CCT ALP SerPl-cCnc 86U/L Normal [id number] 45 - 128 HH CCT ALT SerPl-cCnc 24U/L Normal [id number] 10 - 55 HH CCT Globulin Ser Calc-mCnc 3.9g/dL Normal [id number] 1.5 - 3.9 HHCCT Bilirub Direct SerPl-mCnc 0.2mg/dL Normal [id number] 0 - 0.2 HHCCT Albumin/Glob SerPl 0.7Ratio Below low normal [id number] 1 - 3 HHCCT Albumin SerPl-mCnc 2.8g/dL Below low normal [id number] 3 .5 - 5 HHCCT Prot SerPl-mCnc 6.7g/dL Normal [id number] 6.3 - 8.3 H HCCT Bilirub SerPl-mCnc 0.4mg/dL Normal [id number] 0.2 - 1 HHCCT Phosphate SerPl-mCnc 5.8mg/dL Above high normal [id number] 2.7 - 4.5 HHCCT Calcium SerPl-mCnc 9.2mg/dL Normal [id number] 8.7 - 10 .5 HHCCT BUN SerPl-mCnc 46mg/dL Above high normal [id number] 8 - 21 HHCCT Creat SerPl-mCnc 1.1mg/dL Normal [id number] 0.5 - 1.3 HHCCT GFR/BSA.pred SerPlBld COP-ZGI-InIIcs 77 Normal [id number] 59 - HHCCT Chloride SerPl-sCnc 98mmol/L Normal [id number] 98 - 107 HHCCT BUN/Creat SerPl 42Ratio Above high normal [id number] 10 - 25 HHCCT CO2 SerPl-sCnc 28mmol/L Normal [id number] 22 - 33 HH CCT Anion Gap Bld-sCnc 10 Normal [id number] 7 - 17 HHCCT Potassium SerPl-sCnc 4.7mmol/L Normal [id number] 3.4 - 5.3 HHCCT Glucose SerPl-mCnc 155mg/dL Above high normal [id number] 65 - 99 HHCCT Sodium SerPl-sCnc 136mmol/L Normal [id number] 136 - 145 HHCCT RBC num Bld Auto 4.12Mil/uL Below low normal [id number] 4. 5 - 6.2 HHCCT RDW RBC Auto-Rto 15.6% Above high normal [id number] 11.5 - 14.5 HHCCT PMV Bld Auto 11.1fL Normal [id number] 7.5 - 12.[address] MCH RBC Qn Auto 27.7pg Normal [id number] 27 - 31 H HCCT WBC num Bld Auto 12.6Thou/uL Above high normal [id number] 4 - 11 HHCCT Platelet num Bld Auto 308Thou/uL Normal [id number] 150 - 450 HHCCT MCHC RBC Auto-mCnc 31.2g/dL Normal [id number] 30 - 36 HHCCT Hct VFr Bld Auto 36.5% Below low normal [id number] 39 - 54 HHCCT MCV RBC Auto 89fL Normal [id number] 80 - 100 HH[facility] T Hgb Bld-mCnc 11.4g/dL Below low normal [id number] 13 - 17 .7 HHCCT POC Glucose 183mg/dL Above high normal [id number] 65 - 99 HHCCT POC Glucose 137mg/dL Above high normal [id number] 65 - 99 HHCCT POC Glucose 138mg/dL Above high normal 576479074138 65 - 99 HHCCT POC Glucose 105mg/dL Above high normal [id number] 65 - 99 HHCCT Magnesium SerPl-mCnc 2.3mg/dL Normal [id number] 1.6 - 2.7 HHCCT Calcium SerPl-mCnc 9.6mg/dL Normal [id number] 8.7 - 10 .5 HHCCT BUN SerPl-mCnc 42mg/dL Above high normal [id number] 8 - 21 HHCCT Creat SerPl-mCnc 1.1mg/dL Normal [id number] 0.5 - 1.3 HHCCT GFR/BSA.pred SerPlBld BCL-NWL-NiFRre 77 Normal [id number] 59 - HHCCT Chloride SerPl-sCnc 99mmol/L Normal [id number] 98 - 107 HHCCT BUN/Creat SerPl 38Ratio Above high normal [id number] 10 - 25 HHCCT CO2 SerPl-sCnc 30mmol/L Normal [id number] 22 - 33 HH CCT Anion Gap Bld-sCnc 8 Normal [id number] 7 - 17 HHCCT Potassium SerPl-sCnc 4.9mmol/L Normal [id number] 3.4 - 5.3 HHCCT Glucose SerPl-mCnc 97mg/dL Normal [id number] 65 - 99 HHCCT Sodium SerPl-sCnc 137mmol/L Normal [id number] 136 - 145 HHCCT Phosphate SerPl-mCnc 4.7mg/dL Above high normal [id number] 2.7 - 4.5 HHCCT RBC num Bld Auto 4.2Mil/uL Below low normal [id number] 4.5 - 6.2 HHCCT RDW RBC Auto-Rto 15.8% Above high normal [id number] 11.5 - 14.5 HHCCT PMV Bld Auto 10.6fL Normal [id number] 7.5 - 12.[address] MCH RBC Qn Auto 27.6pg Normal [id number] 27 - 31 H HCCT WBC num Bld Auto 12.5Thou/uL Above high normal [id number] 4 - 11 H[facility]CT Platelet num Bld Auto 331Thou/uL Normal [id number] 150 - 450 HHCCT MCHC RBC Auto-mCnc 31g/dL Normal [id number] 30 - 36 HHCCT Hct VFr Bld Auto 37.4% Below low normal [id number] 39 - 54 HHCCT MCV RBC Auto 89fL Normal [id number] 80 - 100 [facility] T Hgb Bld-mCnc 11.6g/dL Below low normal [id number] 13 - 17 .7 HHCCT POC Glucose 167mg/dL Above high normal [id number] 65 - 99 HHCCT POC Glucose 141mg/dL Above high normal [id number] 65 - 99 HHCCT POC Glucose 193mg/dL Above high normal [id number] 65 - 99 HHCCT POC Glucose 371mg/dL Above high normal 121506829822 65 - 99 HHCCT POC Glucose 113mg/dL Above high normal [id number] 65 - 99 HHCCT Calcium SerPl-mCnc 8.9mg/dL Normal [id number] 8.7 - 10 .5 HHCCT BUN SerPl-mCnc 34mg/dL Above high normal 958516107922 8 - 21 HHCCT Creat SerPl-mCnc 1mg/dL Normal [id number] 0.5 - 1.3 HHCCT GFR/BSA.pred SerPlBld HGM-RDS-QnZBld 86 Normal [id number] 59 - HHCCT Chloride SerPl-sCnc 100mmol/L Normal [id number] 98 - 107 HHCCT BUN/Creat SerPl 34Ratio Above high normal [id number] 10 - 25 HHCCT CO2 SerPl-sCnc 30mmol/L Normal [id number] 22 - 33 HH CCT Anion Gap Bld-sCnc 7 Normal [id number] 7 - 17 HHCCT Potassium SerPl-sCnc 4.5mmol/L Normal [id number] 3.4 - 5.3 HHCCT Glucose SerPl-mCnc 118mg/dL Above high normal [id number] 65 - 99 HHCCT Sodium SerPl-sCnc 137mmol/L Normal [id number] 136 - 145 HHCCT Magnesium SerPl-mCnc 2.4mg/dL Normal [id number] 1.6 - 2.7 HHCCT Phosphate SerPl-mCnc 4mg/dL Normal [id number] 2.7 - 4.5 HHCCT RBC num Bld Auto 4Mil/uL Below low normal [id number] 4.5 - 6.2 HHCCT RDW RBC Auto-Rto 15.7% Above high normal [id number] 11.5 - 14.5 HHCCT PMV Bld Auto 10.9fL Normal [id number] 7.5 - 12.[address] MCH RBC Qn Auto 27.8pg Normal [id number] 27 - 31 H HCCT WBC num Bld Auto 12.9Thou/uL Above high normal [id number] 4 - 11 HHCCT Platelet num Bld Auto 345Thou/uL Normal [id number] 150 - 450 HHCCT MCHC RBC Auto-mCnc 31.1g/dL Normal [id number] 30 - 36 HHCCT Hct VFr Bld Auto 35.7% Below low normal [id number] 39 - 54 HHCCT MCV RBC Auto 89fL Normal [id number] 80 - 100 [facility] T Hgb Bld-mCnc 11.1g/dL Below low normal [id number] 13 - 17 .7 HHCCT POC Glucose 123mg/dL Above high normal 157840248325 65 - 99 HHCCT Neutrophils num Bld Auto 10.34Thou/uL Above high normal 442967311214 2 - 7.5 HHCCT Monocytes num Bld Auto 1.5Thou/uL Normal [id number] 0.2 - 1.5 HHCCT Eosinophil num Bld Auto 0.4Thou/uL Normal [id number] 0 - 0.7 HHCCT WBC num Bld Auto 15.8Thou/uL Above high normal [id number] 4 - 11 HHCCT MCHC RBC Auto-mCnc 30.9g/dL Normal [id number] 30 - 36 HHCCT Monocytes/leuk NFr Bld Auto 9.5% Normal [id number] HHCCT Hct VFr Bld Auto 36.3% Below low normal 765095497520 39 - 54 HHCCT RBC num Bld Auto 4.06Mil/uL Below low normal [id number] 4. 5 - 6.2 HHCCT RDW RBC Auto-Rto 15.6% Above high normal [id number] 11.5 - 14.5 HHCCT PMV Bld Auto 10.5fL Normal [id number] 7.5 - 12.[address] Eosinophil/leuk NFr Bld Auto 2.5% Normal [id number] HHCCT MCH RBC Qn Auto 27.6pg Normal [id number] 27 - 31 H HCCT Basophils/leuk NFr Bld Auto 0.5% Normal [id number] HHCCT Basophils num Bld Auto 0.08Thou/uL Normal [id number] 0 - 0.2 HHCCT Platelet num Bld Auto 357Thou/uL Normal [id number] 150 - 450 HHCCT Neutrophils/leuk NFr Bld Auto 65.5% Normal [id number] HHCCT MCV RBC Auto 89fL Normal [id number] 80 - 100 HH T Lymphocytes/leuk NFr Bld Auto 20.3% Normal [id number] HHT Lymphocytes num Bld Auto 3.21Thou/uL Normal [id number] 1.5 - 4.5 HHCCT Imm Granulocytes/leuk NFr Bld Auto 1.7% Normal [id number] HHT Hgb Bld-mCnc 11.2g/dL Below low normal 872763601147 13 - 17 .7 HHCCT Imm Granulocytes num Bld Auto 0.27Thou/uL Above high normal 599701441003 0 - 0.1 HHCCT POC Glucose 142mg/dL Above high normal 043046444540 65 - 99 HHCCT POC Glucose 150mg/dL Above high normal [id number] 65 - 99 HHCCT LMWH PPP Business Process Lead-aCnc 0.42IU/mL Normal [id number] HHCCT RBC num Bld Auto 3.93Mil/uL Below low normal [id number] 4. 5 - 6.2 HHCCT RDW RBC Auto-Rto 15.4% Above high normal [id number] 11.5 - 14.5 HHCCT PMV Bld Auto 10.7fL Normal [id number] 7.5 - 12.[address] [facility] [address] MCH RBC Qn Auto 27.7pg Normal [id number] 27 - 31 H HCCT WBC num Bld Auto 14.5Thou/uL Above high normal [id number] 4 - 11 HHCCT Platelet num Bld Auto 329Thou/uL Normal [id number] 150 - 450 HHCCT MCHC RBC Auto-mCnc 31g/dL Normal [id number] 30 - 36 HHCCT Hct VFr Bld Auto 35.2% Below low normal [id number] 39 - 54 HHCCT MCV RBC Auto 90fL Normal [id number] 80 - 100 [facility] T Hgb Bld-mCnc 10.9g/dL Below low normal [id number] 13 - 17 .7 HHCCT Anticoagulant IV HEPARIN, UNFRACTIONATED Normal [id number] HHCCT POC Glucose 141mg/dL Above high normal [id number] 65 - 99 HHCCT POC Glucose 107mg/dL Above high normal 448599396747 65 - 99 HHCCT RBC num Bld Auto 4.07Mil/uL Below low normal [id number] 4. 5 - 6.2 HHCCT RDW RBC Auto-Rto 15.7% Above high normal [id number] 11.5 - 14.5 HHCCT PMV Bld Auto 11.1fL Normal 7.5 - 12.[address] MCH RBC Qn Auto 28pg Normal [id number] 27 - 31 H HCCT WBC num Bld Auto 13.3Thou/uL Above high normal 839972327137 4 - 11 HHCCT Platelet num Bld Auto 348Thou/uL Normal [id number] 150 - 450 HHCCT MCHC RBC Auto-mCnc 31.1g/dL Normal [id number] 30 - 36 HHCCT Hct VFr Bld Auto 36.7% Below low normal [id number] 39 - 54 HHCCT MCV RBC Auto 90fL Normal [id number] 80 - 100 [facility] T Hgb Bld-mCnc 11.4g/dL Below low normal [id number] 13 - 17 .7 HHCCT Magnesium SerPl-mCnc 2.6mg/dL Normal [id number] 1.6 - 2.7 HHCCT Calcium SerPl-mCnc 9.1mg/dL Normal 8.7 - 10 .5 HHCCT BUN SerPl-mCnc 37mg/dL Above high normal [id number] 8 - 21 HHCCT Creat SerPl-mCnc 1mg/dL Normal [id number] 0.5 - 1.3 HHCCT GFR/BSA.pred SerPlBld NIZ-UWC-UfGOkk 86 Normal [id number] 59 - HHCCT Chloride SerPl-sCnc 100mmol/L Normal [id number] 98 - 107 HHCCT BUN/Creat SerPl 37Ratio Above high normal [id number] 10 - 25 HHCCT CO2 SerPl-sCnc 32mmol/L Normal 22 - 33 HH CCT Anion Gap Bld-sCnc 6 Below low normal 750785931114 7 - 17 HHCCT Potassium SerPl-sCnc 4.3mmol/L Normal [id number] 3.4 - 5.3 HHCCT Glucose SerPl-mCnc 102mg/dL Above high normal [id number] 65 - 99 HHCCT Sodium SerPl-sCnc 138mmol/L Normal [id number] 136 - 145 HHCCT Phosphate SerPl-mCnc 3.7mg/dL Normal [id number] 2.7 - 4.5 HHCCT LMWH PPP Business Process Lead-aCnc 0.56IU/mL Normal [id number] HHCCT Anticoagulant IV HEPARIN, UNFRACTIONATED Normal 555020492910 HHCCT POC Glucose 124mg/dL Above high normal [id number] 65 - 99 HHCCT LMWH PPP Business Process Lead-aCnc 0.35IU/mL Normal [id number] HHCCT Anticoagulant IV HEPARIN, UNFRACTIONATED Normal [id number] HHCCT POC Glucose 199mg/dL Above high normal 435971784062 65 - 99 HHCCT LMWH PPP Business Process Lead-aCnc 0.19IU/mL Normal [id number] HHCCT POC Glucose 153mg/dL Above high normal [id number] 65 - 99 HHCCT Anticoagulant IV HEPARIN, UNFRACTIONATED Normal [id number] HHCCT LMWH PPP Business Process Lead-aCnc 0.04IU/mL Normal [id number] HHCCT Anticoagulant IV HEPARIN, UNFRACTIONATED Normal [id number] HHCCT POC Glucose 123mg/dL Above high normal [id number] 65 - 99 HHCCT Hgb BldA-mCnc 10.7g/dL Below low normal [id number] 13 - 1 7.7 [facility] CO2 BldV-sCnc 35mmol/L Above high normal [id number] 23 - 29 [facility] COHgb MFr BldA 1.2% Normal [id number] 0 - 2 HH CCT SaO2 % BldV from pO2 64.6% Normal [id number] H[facility]CT O2 Ct VFr BldV Calc 9.6mL/dL Normal [id number] 7.2 - 17.2 [facility] Base excess BldA Calc-sCnc 7.4mmol/L Normal [id number] H[facility] MetHgb MFr Bld 0.4% Normal [id number] 0.4 - 1.5 HH CCT pH BldV 7.38 Normal [id number] 7.33 - 7.43 [facility] pCO2 BldV 59mmHG Above high normal [id number] 35 - 50 [facility] pO2 BldV 35mmHG Normal [id number] 0 - 60 [facility] Respiratory Information NASAL 4 L/MIN Normal [id number] HHCCT POC Glucose 220mg/dL Above high normal [id number] 65 - 99 [facility] Phosphate SerPl-mCnc 3.3mg/dL Normal [id number] 2.7 - 4.5 H[facility]CT Magnesium SerPl-mCnc 2.5mg/dL Normal [id number] 1.6 - 2.7 [facility]CT Calcium SerPl-mCnc 9mg/dL Normal [id number] 8.7 - 10 .5 H[facility]CT BUN SerPl-mCnc 56mg/dL Above high normal 107732120789 8 - 21 H[facility]CT Creat SerPl-mCnc 1.1mg/dL Normal [id number] 0.5 - 1.3 H[facility]CT GFR/BSA.pred SerPlBld WNQ-NNP-FePMcr 77 Normal [id number] 59 - HHCCT Chloride SerPl-sCnc 98mmol/L Normal [id number] 98 - 107 [facility]CT BUN/Creat SerPl 51Ratio Above high normal [id number] 10 - 25 [facility]CT CO2 SerPl-sCnc 32mmol/L Normal [id number] 22 - 33 HH CCT Anion Gap Bld-sCnc 6 Below low normal 503546136564 7 - 17 [facility]CT Potassium SerPl-sCnc 4.5mmol/L Normal [id number] 3.4 - 5.3 [facility] Glucose SerPl-mCnc 253mg/dL Above high normal [id number] 65 - 99 [facility] Sodium SerPl-sCnc 136mmol/L Normal [id number] 136 - 145 [facility] RBC num Bld Auto 4.07Mil/uL Below low normal [id number] 4. 5 - 6.2 [facility]CT RDW RBC Auto-Rto 15.5% Above high normal [id number] 11.5 - 14.5 [facility]CT PMV Bld Auto 10.7fL Normal [id number] 7.5 - 12.[address] MCH RBC Qn Auto 27.8pg Normal [id number] 27 - 31 H [facility]CT WBC num Bld Auto 13.6Thou/uL Above high normal [id number] 4 - 11 [facility] Platelet num Bld Auto 385Thou/uL Normal [id number] 150 - 450 [facility]CT MCHC RBC Auto-mCnc 31.1g/dL Normal [id number] 30 - 36 H[facility]CT Hct VFr Bld Auto 36.3% Below low normal 299508227986 39 - 54 [facility]CT MCV RBC Auto 89fL Normal [id number] 80 - 100 HHCC T Hgb Bld-mCnc 11.3g/dL Below low normal 931623963061 13 - 17 .7 HHCCT POC Glucose 191mg/dL Above high normal 661030496768 65 - 99 [facility] POC Glucose 193mg/dL Above high normal [id number] 65 - 99 [facility] POC Glucose 236mg/dL Above high normal [id number] 65 - 99 H[facility]CT Lactate SerPl-sCnc 1.3mmol/L Normal [id number] 0.5 - 1. 9 [facility]CT Hgb BldA-mCnc 11.9g/dL Below low normal [id number] 13 - 1 7.7 [facility]CT CO2 BldV-sCnc 36mmol/L Above high normal [id number] 23 - 29 [facility]CT COHgb MFr BldA 1.5% Normal [id number] 0 - 2 HH CCT SaO2 % BldV from pO2 51.9% Normal [id number] HHCCT O2 Ct VFr BldV Calc Normal [id number] 7.2 - 17.2 H[facility]CT Base excess BldA Calc-sCnc 7.9mmol/L Normal [id number] HHCCT MetHgb MFr Bld 1.2% Normal [id number] 0.4 - 1.5 HH CCT pH BldV 7.39 Normal [id number] 7.33 - 7.43 H[facility]CT pCO2 BldV 57mmHG Above high normal [id number] 35 - 50 H[facility]CT pO2 BldV 30mmHG Normal [id number] 0 - 60 [facility] Respiratory Information NASAL 2 L/MIN Normal [id number] HHCCT LMWH PPP Business Process Lead-aCnc 0.33IU/mL Normal [id number] H[facility]CT Anticoagulant IV HEPARIN, UNFRACTIONATED Normal [id number] HHCCT POC Glucose 194mg/dL Above high normal 302188443426 65 - 99 [facility]CT POC Glucose 127mg/dL Above high normal [id number] 65 - 99 H[facility]CT RBC num Bld Auto 4.08Mil/uL Below low normal [id number] 4. 5 - 6.2 HHCCT RDW RBC Auto-Rto 15.9% Above high normal [id number] 11.5 - 14.5 HHCCT PMV Bld Auto 10.7fL Normal [id number] 7.5 - 12.[address] MCH RBC Qn Auto 27.7pg Normal [id number] 27 - 31 H HCCT WBC num Bld Auto 11.7Thou/uL Above high normal 366078727773 4 - 11 [facility] Platelet num Bld Auto 372Thou/uL Normal [id number] 150 - 450 HHCCT MCHC RBC Auto-mCnc 30.7g/dL Normal [id number] 30 - 36 HHCCT Hct VFr Bld Auto 36.8% Below low normal 979434428094 39 - 54 HHCCT MCV RBC Auto 90fL Normal 570126339007 80 - 100 HHCC T Hgb Bld-mCnc 11.3g/dL Below low normal 872227719569 13 - 17 .7 HHCCT Calcium SerPl-mCnc 9mg/dL Normal 975208157354 8.7 - 10 .5 HHCCT BUN SerPl-mCnc 68mg/dL Above high normal 313795702041 8 - 21 HHCCT Creat SerPl-mCnc 1.4mg/dL Above high normal 369872691585 0. 5 - 1.3 HHCCT GFR/BSA.pred SerPlBld UYO-XYR-ShRLpp 58 Below low normal 188053497833 59 - HHCCT Chloride SerPl-sCnc 95mmol/L Below low normal 648219265557 98 - 107 HHCCT BUN/Creat SerPl 49Ratio Above high normal 138057552330 10 - 25 HHCCT CO2 SerPl-sCnc 34mmol/L Above high normal [id number] 22 - 33 HHCCT Anion Gap Bld-sCnc 8 Normal 519912283619 7 - 17 HHCCT Potassium SerPl-sCnc 3.9mmol/L Normal 361995532525 3.4 - 5.3 HHCCT Glucose SerPl-mCnc 115mg/dL Above high normal 329801563241 65 - 99 HHCCT Sodium SerPl-sCnc 137mmol/L Normal [id number] 136 - 145 HHCCT Magnesium SerPl-mCnc 2.4mg/dL Normal [id number] 1.6 - 2.7 HHCCT Phosphate SerPl-mCnc 3.2mg/dL Normal [id number] 2.7 - 4.5 HHCCT LMWH PPP Business Process Lead-aCnc 0.29IU/mL Normal [id number] HHCCT Anticoagulant IV HEPARIN, UNFRACTIONATED Normal 007762460477 HHCCT POC Glucose 172mg/dL Above high normal 489120089852 65 - 99 HHCCT POC Glucose 156mg/dL Above high normal 072242024266 65 - 99 HHCCT Calcium SerPl-mCnc 9.4mg/dL Normal 924373660952 8.7 - 10 .5 HHCCT BUN SerPl-mCnc 72mg/dL Above high normal 719177868381 8 - 21 HHCCT Creat SerPl-mCnc 1.5mg/dL Above high normal 241168590266 0. 5 - 1.3 HHCCT GFR/BSA.pred SerPlBld SDY-NGC-XuSJpq 53 Below low normal 948177366350 59 - HHCCT Chloride SerPl-sCnc 96mmol/L Below low normal 896332145092 98 - 107 HHCCT BUN/Creat SerPl 48Ratio Above high normal 797134920326 10 - 25 HHCCT CO2 SerPl-sCnc 32mmol/L Normal [id number] 22 - 33 HH CCT Anion Gap Bld-sCnc 9 Normal [id number] 7 - 17 HHCCT Potassium SerPl-sCnc 4mmol/L Normal [id number] 3.4 - 5.3 HHCCT Glucose SerPl-mCnc 148mg/dL Above high normal 042092432362 65 - 99 HHCCT Sodium SerPl-sCnc 137mmol/L Normal [id number] 136 - 145 HHCCT Magnesium SerPl-mCnc 2.4mg/dL Normal [id number] 1.6 - 2.7 HHCCT Phosphate SerPl-mCnc 2.9mg/dL Normal [id number] 2.7 - 4.5 HHCCT POC Glucose 184mg/dL Above high normal 026843044431 65 - 99 HHCCT Appearance Fld Normal 116577235526 HH CCT RBC num Fld Auto Normal [id number] HHCCT Color Fld Normal 682229383712 HHCCT Nuc cell num Fld Auto Normal [id number] HHCCT LMWH PPP Business Process Lead-aCnc 0.35IU/mL Normal [id number] HHCCT POC Glucose 193mg/dL Above high normal 998283771311 65 - 99 HHCCT Anticoagulant IV HEPARIN, UNFRACTIONATED Normal 106730609427 HHCCT POC Glucose 176mg/dL Above high normal 447503255849 65 - 99 HHCCT Magnesium SerPl-mCnc 2.5mg/dL Normal [id number] 1.6 - 2.7 HHCCT Calcium SerPl-mCnc 8.9mg/dL Normal 676175078301 8.7 - 10 .5 HHCCT BUN SerPl-mCnc 81mg/dL Above high normal 699276462876 8 - 21 HHCCT Creat SerPl-mCnc 1.5mg/dL Above high normal 633586521290 0. 5 - 1.3 HHCCT GFR/BSA.pred SerPlBld KUW-PYF-AnGIru 53 Below low normal 353155930598 59 - HHCCT Chloride SerPl-sCnc 99mmol/L Normal [id number] 98 - 107 HHCCT BUN/Creat SerPl 54Ratio Above high normal 862453260414 10 - 25 HHCCT CO2 SerPl-sCnc 32mmol/L Normal [id number] 22 - 33 HH CCT Anion Gap Bld-sCnc 9 Normal [id number] 7 - 17 HHCCT Potassium SerPl-sCnc 4mmol/L Normal [id number] 3.4 - 5.3 HHCCT Glucose SerPl-mCnc 151mg/dL Above high normal 536979696084 65 - 99 HHCCT Sodium SerPl-sCnc 140mmol/L Normal [id number] 136 - 145 HHCCT Phosphate SerPl-mCnc 3.3mg/dL Normal [id number] 2.7 - 4.5 HHCCT LMWH PPP Business Process Lead-aCnc 0.31IU/mL Normal [id number] HHCCT RBC num Bld Auto 4.13Mil/uL Below low normal [id number] 4. 5 - 6.2 HHCCT RDW RBC Auto-Rto 16.4% Above high normal 894072384538 11.5 - 14.5 HHCCT PMV Bld Auto 10.3fL Normal [id number] 7.5 - 12.[address] MCH RBC Qn Auto 27.6pg Normal 205127322072 27 - 31 H HCCT WBC num Bld Auto 17Thou/uL Above high normal 749151940700 4 - 11 HHCCT Platelet num Bld Auto 434Thou/uL Normal [id number] 150 - 450 HHCCT MCHC RBC Auto-mCnc 30.4g/dL Normal [id number] 30 - 36 HHCCT Hct VFr Bld Auto 37.5% Below low normal 592127137428 39 - 54 HHCCT MCV RBC Auto 91fL Normal 404710156601 80 - 100 HHCC T Hgb Bld-mCnc 11.4g/dL Below low normal 510750131066 13 - 17 .7 HHCCT Anticoagulant IV HEPARIN, UNFRACTIONATED Normal [id number] HHCCT POC Glucose 151mg/dL Above high normal [id number] 65 - 99 HHCCT POC Glucose 238mg/dL Above high normal 703545225267 HHCCT LMWH PPP Business Process Lead-aCnc 0.18IU/mL Normal [id number] HHCCT Anticoagulant IV HEPARIN, UNFRACTIONATED Normal [id number] HHCCT POC Glucose 236mg/dL Above high normal 538076916205 HHCCT POC Glucose 139mg/dL Above high normal 891262890947 HHCCT POC Glucose 122mg/dL Above high normal 763981691504 HHCCT POC Glucose 106mg/dL Above high normal 229332004898 HHCCT POC Glucose 95mg/dL Normal [id number] HHCCT POC Glucose 98mg/dL Normal [id number] HHCCT POC Glucose 135mg/dL Above high normal 191454171088 HHCCT pCO2, Arterial 51mmHG Above high normal 234445113949 32 - 45 HHCCT pH, Arterial 7.39 Normal [id number] 7.35 - 7.45 HHCCT Total CO2, Arterial 32mmol/L Above high normal 264929056317 22 - 28 HHCCT pO2, Arterial 97mmHG Above high normal 013114219931 75 - 95 HHCCT Base excess BldA Calc-sCnc 4.7mmol/L Normal [id number] CCT P/F Ratio 243 Normal [id number] HHCCT POC Glucose 198mg/dL Above high normal 325382959875 HHCCT Respiratory Information VENT 40% Normal [id number] CCT POC Glucose 202mg/dL Above high normal [id number] HHCCT Calcium SerPl-mCnc 8.8mg/dL Normal 890115152334 8.7 - 10 .5 HHCCT BUN SerPl-mCnc 86mg/dL Above high normal 657554924343 8 - 21 HHCCT Creat SerPl-mCnc 1.5mg/dL Above high normal [id number] 0. 5 - 1.3 HHCCT GFR/BSA.pred SerPlBld AWB-AXX-MnGLng 53 Below low normal 712298363549 59 - HHCCT Chloride SerPl-sCnc 105mmol/L Normal [id number] 98 - 107 HHCCT BUN/Creat SerPl 57Ratio Above high normal [id number] 10 - 25 HHCCT CO2 SerPl-sCnc 27mmol/L Normal [id number] 22 - 33 HH CCT Anion Gap Bld-sCnc 14 Normal 799275360121 7 - 17 HHCCT Potassium SerPl-sCnc 4mmol/L Normal [id number] 3.4 - 5.3 HHCCT Glucose SerPl-mCnc 179mg/dL Above high normal 828631445577 65 - 99 HHCCT Sodium SerPl-sCnc 146mmol/L Above high normal 092791521759 1 36 - 145 HHCCT Magnesium SerPl-mCnc 2.6mg/dL Normal [id number] 1.6 - 2.7 HHCCT LMWH PPP Business Process Lead-aCnc 0.04IU/mL Normal [id number] HHCCT INR PPP 1.3 Normal [id number] HHCCT Prothrombin time 14.8seconds Above high normal 552606449701 10 - 13.5 HHCCT aPTT PPP 29seconds Normal [id number] 25 - 36 HHCCT Neutrophils num Bld Auto 13.21Thou/uL Above high normal 502293245443 2 - 7.5 HHCCT Monocytes num Bld Auto 1.18Thou/uL Normal [id number] 0.2 - 1.5 HHCCT Eosinophil num Bld Auto 0.28Thou/uL Normal [id number] 0 - 0.7 HHCCT WBC num Bld Auto 17.4Thou/uL Above high normal 861977092755 4 - 11 HHCCT MCHC RBC Auto-mCnc 31.1g/dL Normal [id number] 30 - 36 HHCCT Monocytes/leuk NFr Bld Auto 6.8% Normal [id number] HHCCT Hct VFr Bld Auto 39.6% Normal [id number] 39 - 54 HHCCT RBC num Bld Auto 4.38Mil/uL Below low normal [id number] 4. 5 - 6.2 HHCCT RDW RBC Auto-Rto 16.6% Above high normal [id number] 11.5 - 14.5 HHCCT PMV Bld Auto 10.2fL Normal [id number] 7.5 - 12.[address] Eosinophil/leuk NFr Bld Auto 1.6% Normal [id number] HHCCT MCH RBC Qn Auto 28.1pg Normal [id number] 27 - 31 H HCCT Basophils/leuk NFr Bld Auto 0.1% Normal [id number] HHCCT Basophils num Bld Auto 0.02Thou/uL Normal [id number] 0 - 0.2 HHCCT Platelet num Bld Auto 438Thou/uL Normal [id number] 150 - 450 HHCCT Neutrophils/leuk NFr Bld Auto 76% Normal 110615574745 HHCCT MCV RBC Auto 90fL Normal [id number] 80 - 100 HH T Lymphocytes/leuk NFr Bld Auto 14.9% Normal [id number] [facility] Lymphocytes num Bld Auto 2.6Thou/uL Normal [id number] 1.5 - 4.5 HHCCT Imm Granulocytes/leuk NFr Bld Auto 0.6% Normal [id number] CCT Hgb Bld-mCnc 12.3g/dL Below low normal [id number] 13 - 17 .7 HHCCT Imm Granulocytes num Bld Auto 0.11Thou/uL Above high normal 604242468064 0 - 0.1 HHCCT Anticoagulant IV HEPARIN, UNFRACTIONATED Normal [id number] [facility] Anticoagulant IV HEPARIN, UNFRACTIONATED Normal [id number] CCT Anticoagulant APIXABAN (ELIQUIS) Normal [id number] CCT POC Glucose 172mg/dL Above high normal 312406278919 - HHCCT POC Glucose 157mg/dL Above high normal 778794956721 65 - HHCCT POC Glucose 194mg/dL Above high normal 469313739121 65 - HHCCT POC Glucose 175mg/dL Above high normal 324467488102 - HHCCT POC Glucose 176mg/dL Above high normal 357665789570 - HHCCT pro BNP, N-terminal 2821pg/mL Above high normal 391884602547 - 125 HHCCT POC Glucose 159mg/dL Above high normal 837370635529 65 - HHCCT POC Glucose 134mg/dL Above high normal 277266366986 65 - 99 HHCCT Vancomycin SerPl-mCnc 27mg/L Normal [id number] HHCCT Lactate SerPl-sCnc 0.9mmol/L Normal [id number] 0.5 - 1. 9 HHCCT POC Glucose 213mg/dL Above high normal 110207973395 65 - 99 HHCCT Time of last dose Normal 235716337340 HHCCT POC Glucose 269mg/dL Above high normal 335686300683 - HHCCT POC Glucose 259mg/dL Above high normal 791598942178 65 - 99 HHCCT Phosphate SerPl-mCnc 4.1mg/dL Normal 576795372303 2.7 - 4.5 HHCCT Magnesium SerPl-mCnc 2.5mg/dL Normal [id number] 1.6 - 2.7 HHCCT Calcium SerPl-mCnc 8.5mg/dL Below low normal 374837349264 8 .7 - 10.5 HHCCT BUN SerPl-mCnc 89mg/dL Above high normal 978649430237 8 - 21 HHCCT Creat SerPl-mCnc 1.5mg/dL Above high normal [id number] 0. 5 - 1.3 HHCCT GFR/BSA.pred SerPlBld NOA-QKC-CjJTfh 53 Below low normal 074082364619 59 - HHCCT Chloride SerPl-sCnc 103mmol/L Normal [id number] 98 - 107 HHCCT BUN/Creat SerPl 59Ratio Above high normal [id number] 10 - 25 HHCCT CO2 SerPl-sCnc 26mmol/L Normal [id number] 22 - 33 HH CCT Anion Gap Bld-sCnc 14 Normal [id number] 7 - 17 HHCCT Potassium SerPl-sCnc 4.2mmol/L Normal [id number] 3.4 - 5.3 HHCCT Glucose SerPl-mCnc 209mg/dL Above high normal 341718788955 65 - 99 HHCCT Sodium SerPl-sCnc 143mmol/L Normal [id number] 136 - 145 HHCCT RBC num Bld Auto 4.21Mil/uL Below low normal [id number] 4. 5 - 6.2 HHCCT RDW RBC Auto-Rto 16.6% Above high normal [id number] 11.5 - 14.5 HHCCT PMV Bld Auto 9.8fL Normal [id number] 7.5 - 12.[address] MCH RBC Qn Auto 28pg Normal [id number] 27 - 31 H HCCT WBC num Bld Auto 14.5Thou/uL Above high normal 837696727515 4 - 11 HHCCT Platelet num Bld Auto 419Thou/uL Normal [id number] 150 - 450 HHCCT MCHC RBC Auto-mCnc 31.5g/dL Normal [id number] 30 - 36 HHCCT Hct VFr Bld Auto 37.5% Below low normal 470313129948 39 - 54 HHCCT MCV RBC Auto 89fL Normal [id number] 80 - 100 HHCC T Hgb Bld-mCnc 11.8g/dL Below low normal 682899458487 13 - 17 .7 HHCCT POC Glucose 211mg/dL Above high normal [id number] 65 - 99 HHCCT POC Glucose 147mg/dL Above high normal 602024008166 65 - 99 HHCCT POC Glucose 126mg/dL Above high normal 596149268591 65 - 99 HHCCT Calcium SerPl-mCnc 8.8mg/dL Normal [id number] 8.7 - 10 .5 HHCCT BUN SerPl-mCnc 87mg/dL Above high normal 920840641648 8 - 21 HHCCT Creat SerPl-mCnc 1.5mg/dL Above high normal [id number] 0. 5 - 1.3 HHCCT GFR/BSA.pred SerPlBld YXM-KGG-ByMNwk 53 Below low normal [id number] 59 - HHCCT Chloride SerPl-sCnc 103mmol/L Normal 559835151541 98 - 107 HHCCT BUN/Creat SerPl 58Ratio Above high normal 761365033638 10 - 25 HHCCT CO2 SerPl-sCnc 25mmol/L Normal [id number] 22 - 33 HH CCT Anion Gap Bld-sCnc 15 Normal [id number] 7 - 17 HHCCT Potassium SerPl-sCnc 3.9mmol/L Normal [id number] 3.4 - 5.3 HHCCT Glucose SerPl-mCnc 149mg/dL Above high normal 126249576865 65 - 99 HHCCT Sodium SerPl-sCnc 143mmol/L Normal [id number] 136 - 145 HHCCT POC Glucose 131mg/dL Above high normal 991737957627 HHCCT POC Glucose 137mg/dL Above high normal 142846169103 HHCCT POC Glucose 115mg/dL Above high normal 096928239838 HHCCT POC Glucose 109mg/dL Above high normal 982703419195 HHCCT POC Glucose 128mg/dL Above high normal 933929676256 HHCCT POC Glucose 140mg/dL Above high normal 110309352395 HHCCT POC Glucose 171mg/dL Above high normal 800226755702 HHCCT POC Glucose 177mg/dL Above high normal 243906181692 HHCCT POC Glucose 143mg/dL Above high normal 145368344308 HHCCT POC Glucose 131mg/dL Above high normal 908330492102 HHCCT POC Glucose 146mg/dL Above high normal 754837622068 HHCCT POC Glucose 244mg/dL Above high normal 436677254322 HHCCT Potassium SerPl-sCnc 4.2mmol/L Normal [id number] 3.4 - 5.3 HHCCT pCO2, Arterial 39mmHG Normal [id number] 32 - 45 HH CCT pH, Arterial 7.44 Normal [id number] 7.35 - 7.45 HHCCT Total CO2, Arterial 27mmol/L Normal [id number] 22 - 28 HHCCT pO2, Arterial 69mmHG Below low normal 881636902536 75 - 9 5 HHCCT Base excess BldA Calc-sCnc 2.1mmol/L Normal 888338134310 HHCCT P/F Ratio 173 Normal [id number] HHCCT POC Glucose 401mg/dL Above high normal 692590726270 HHCCT POC Glucose 352mg/dL Above high normal 731621769989 HHCCT Respiratory Information VENT 40% Normal 425502058983 HHCCT Procalcitonin SerPl EIA-mCnc 0.27ng/mL Above high normal 775855058972 - 0.09 HHCCT Vancomycin SerPl-mCnc 36mg/L Critically high HHCCT Potassium SerPl-sCnc 3.3mmol/L Below low normal 3.4 - 5.3 HHCCT Time of last dose Normal HHCCT POC Glucose 368mg/dL Above high normal 65 - 99 HHCCT pCO2, Arterial 40mmHG Normal 32 - 45 HH CCT pH, Arterial 7.49 Above high normal 7.3 5 - 7.45 HHCCT Total CO2, Arterial 32mmol/L Above high normal 22 - 28 HHCCT pO2, Arterial 63mmHG Below low normal 75 - 9 5 HHCCT Base excess BldA Calc-sCnc 7mmol/L Normal HHCCT P/F Ratio 158 Normal HHCCT Respiratory Information VENT 40% Normal HHCCT Phosphate SerPl-mCnc 4.6mg/dL Above high normal 2.7 - 4.5 HHCCT Magnesium SerPl-mCnc 2.2mg/dL Normal 1.6 - 2.7 HHCCT Calcium SerPl-mCnc 9.5mg/dL Normal 8.7 - 10 .5 HHCCT BUN SerPl-mCnc 60mg/dL Above high normal 8 - 21 HHCCT Creat SerPl-mCnc 1.1mg/dL Normal 0.5 - 1.3 HHCCT GFR/BSA.pred SerPlBld YMW-CLQ-FiKCdk 77 Normal 59 - HHCCT Chloride SerPl-sCnc 96mmol/L Below low normal 98 - 107 HHCCT BUN/Creat SerPl 55Ratio Above high normal 10 - 25 HHCCT CO2 SerPl-sCnc 28mmol/L Normal 22 - 33 HH CCT Anion Gap Bld-sCnc 14 Normal 7 - 17 HHCCT Potassium SerPl-sCnc 3.7mmol/L Normal 3.4 - 5.3 HHCCT Glucose SerPl-mCnc 223mg/dL Above high normal 749756342965 65 - 99 HHCCT Sodium SerPl-sCnc 138mmol/L Normal [id number] 136 - 145 HHCCT pCO2, Arterial 43mmHG Normal 323034010252 32 - 45 HH CCT pH, Arterial 7.48 Above high normal 869767295512 7.3 5 - 7.45 HHCCT Total CO2, Arterial 33mmol/L Above high normal 847149665745 22 - 28 HHCCT pO2, Arterial 77mmHG Normal 339633382560 75 - [address] [facility] [address] Base excess BldA Calc-sCnc 7.5mmol/L Normal [id number] [facility] P/F Ratio 193 Normal 686443842429 HHT RBC num Bld Auto 4.34Mil/uL Below low normal [id number] 4. 5 - 6.2 HHCCT RDW RBC Auto-Rto 16.5% Above high normal [id number] 11.5 - 14.5 HHCCT PMV Bld Auto 9.3fL Normal [id number] 7.5 - 12.[address] [facility] [address] MCH RBC Qn Auto 28.6pg Normal 782633997326 27 - 31 H HCCT WBC num Bld Auto 16.7Thou/uL Above high normal 009987089932 4 - 11 HHCCT Platelet num Bld Auto 499Thou/uL Above high normal [id number] 150 - 450 HHCCT MCHC RBC Auto-mCnc 31.7g/dL Normal [id number] 30 - 36 HHCCT Hct VFr Bld Auto 39.1% Normal 779443992466 39 - 54 HHCCT MCV RBC Auto 90fL Normal 801695968310 80 - 100 HHCC T Hgb Bld-mCnc 12.4g/dL Below low normal 925209345943 13 - 17 .7 HHCCT POC Glucose 211mg/dL Above high normal 557334686549 65 - 99 HHT Respiratory Information VENT 40% Normal 541677031268 HHCCT POC Glucose 111mg/dL Above high normal 861928251735 65 - 99 CCT POC Glucose 100mg/dL Above high normal 502917101364 65 - 99 [facility] Magnesium SerPl-mCnc 2.2mg/dL Normal [id number] 1.6 - 2.7 HHCCT Potassium SerPl-sCnc 4.3mmol/L Normal 596993558514 3.4 - 5.3 HHCCT POC Glucose 266mg/dL Above high normal 829955713356 65 - 99 HHCCT Normocytes Normal 891381440178 HHCCT Normochromic Bld Ql Smear Normal HHCCT POC Glucose 302mg/dL Above high normal 157025702258 65 - 99 HHCCT Ferritin SerPl-mCnc 160ug/L Normal [id number] 30 - 400 HHCCT Result Normal 824014717913 - HHCCT Calcium SerPl-mCnc 9.3mg/dL Normal [id number] 8.7 - 10 .5 HHCCT BUN SerPl-mCnc 50mg/dL Above high normal 958592869351 8 - 21 HHCCT Creat SerPl-mCnc 1mg/dL Normal [id number] 0.5 - 1.3 HHCCT GFR/BSA.pred SerPlBld YFU-RDR-UoEUvd 86 Normal 790574675918 59 - HHCCT Chloride SerPl-sCnc 97mmol/L Below low normal 520417825079 98 - 107 HHCCT BUN/Creat SerPl 50Ratio Above high normal 011212476723 10 - 25 HHCCT CO2 SerPl-sCnc 26mmol/L Normal [id number] 22 - 33 HH CCT Anion Gap Bld-sCnc 14 Normal [id number] 7 - 17 HHCCT Potassium SerPl-sCnc 4.6mmol/L Normal 243366329061 3.4 - 5.3 HHCCT Glucose SerPl-mCnc 218mg/dL Above high normal 365999749785 65 - 99 HHCCT Sodium SerPl-sCnc 137mmol/L Normal [id number] 136 - 145 HHCCT Magnesium SerPl-mCnc 2.2mg/dL Normal 799664563770 1.6 - 2.7 HHCCT Phosphate SerPl-mCnc 4.9mg/dL Above high normal 933082913169 2.7 - 4.5 HHCCT Lactate SerPl-sCnc 1.9mmol/L Normal [id number] 0.5 - 1. 9 HHCCT RBC num Bld Auto 3.7Mil/uL Below low normal 896264206598 4.5 - 6.2 HHCCT RDW RBC Auto-Rto 16.8% Above high normal 087675392111 11.5 - 14.5 HHCCT PMV Bld Auto 9.4fL Normal [id number] 7.5 - 12.[address] MCH RBC Qn Auto 28.1pg Normal [id number] 27 - 31 H HCCT WBC num Bld Auto 14.2Thou/uL Above high normal 869912907420 4 - 11 HHCCT Platelet num Bld Auto 583Thou/uL Above high normal 356256498601 150 - 450 HHCCT MCHC RBC Auto-mCnc 30.2g/dL Normal [id number] 30 - 36 HHCCT Hct VFr Bld Auto 34.4% Below low normal 033686883299 39 - 54 HHCCT MCV RBC Auto 93fL Normal 425664863179 80 - 100 HHCC T Hgb Bld-mCnc 10.4g/dL Below low normal 923204321114 13 - 17 .7 HHCCT Hgb BldA-mCnc 10.2g/dL Below low normal 130760979846 13 - 1 7.7 HHCCT COHgb MFr BldA 1.1% Normal 887013913043 0 - 2 HH CCT SaO2 % BldV from pO2 67.3% Normal 446192978534 HHCCT O2 Ct VFr BldV Calc 9.5mL/dL Normal 240216467373 7.2 - 17.2 HHCCT MetHgb MFr Bld 0.4% Normal [id number] 0.4 - 1.5 HH CCT pCO2, Arterial 57mmHG Above high normal 181830367056 32 - 45 HHCCT pH, Arterial 7.36 Normal 586134313794 7.35 - 7.45 HHCCT Total CO2, Arterial 33mmol/L Above high normal 371068709808 22 - 28 HHCCT pO2, Arterial 162mmHG Above high normal 092351647569 75 - 95 HHCCT Base excess BldA Calc-sCnc 4.8mmol/L Normal 106251465578 CCT P/F Ratio 405 Normal [id number] CCT POC Glucose 202mg/dL Above high normal 011645878893 65 - 99 HHCCT Respiratory Information VENT 40% Normal 368230191802 HHCCT pCO2, Arterial 48mmHG Above high normal 438606892722 32 - 45 HHCCT pH, Arterial 7.43 Normal 305700959975 7.35 - 7.45 HHCCT Total CO2, Arterial 33mmol/L Above high normal 835262003791 22 - 28 HHCCT pO2, Arterial 163mmHG Above high normal 349719075789 75 - 95 HHCCT Base excess BldA Calc-sCnc 6.4mmol/L Normal 830214896698 HHCCT P/F Ratio 543 Normal 663655673856 HHCCT POC Glucose 200mg/dL Above high normal 704487434051 65 - 99 HHCCT Respiratory Information VM 30% Normal 707598044830 HHCCT RBC num/area UrnS HPF 1perhpf Normal 841813736351 0 - 4 HHCCT Ketones Ur Strip-mCnc Normal 820423055151 - HHCCT Prot Ur Strip-mCnc Normal 626654135315 - HHCCT Hyaline Casts num/area UrnS LPF 12PERLPF Above high normal 572534095279 0 - 4 HHCCT WBC num/area UrnS HPF 1perhpf Normal 026924857567 0 - 4 HHCCT Leukocyte esterase Ur Ql Strip Normal 596785719672 - HHCCT Color Ur Normal 137388583612 HHCCT pH Ur Strip 6 Normal [id number] 5 - 8 HHCCT Sp Gr Ur Strip 1.011 Normal 219217977527 1.003 - 1.03 HHCCT Nitrite Ur Ql Strip Normal 907948328139 - HHCCT Glucose Ur Strip-mCnc 0mg/dL Normal 0 - 99 HHCCT Hgb Ur Ql Strip Normal [id number] - H HCCT Bilirub Ur Strip-mCnc Normal [id number] - HHCCT Clarity Ur Normal 610792878048 HHCCT Hgb BldA-mCnc 12.1g/dL Below low normal 259225044193 13 - 1 7.7 HHCCT COHgb MFr BldA 1.2% Normal 465402832676 0 - 2 HH CCT SaO2 % BldV from pO2 71.7% Normal 467398242605 HHCCT O2 Ct VFr BldV Calc 11.9mL/dL Normal 7.2 - 17.2 HHCCT MetHgb MFr Bld 1% Normal 0.4 - 1.5 HH CCT Trigl SerPl-mCnc 82mg/dL Normal 649398451406 - 150 HHCCT AST SerPl-cCnc 24U/L Normal 10 - 55 HH CCT ALT SerPl-cCnc 28U/L Normal 10 - 55 HH CCT Creat SerPl-mCnc 0.9mg/dL Normal 0.5 - 1.3 HHCCT Globulin Ser Calc-mCnc 4.2g/dL Above high normal 1.5 - 3.9 HHCCT CO2 SerPl-sCnc 28mmol/L Normal 22 - 33 HH CCT Albumin/Glob SerPl 0.8Ratio Below low normal 1 - 3 HHCCT Anion Gap Bld-sCnc 12 Normal 7 - 17 HHCCT Potassium SerPl-sCnc 5mmol/L Normal 3.4 - 5.3 HHCCT Bilirub SerPl-mCnc 0.4mg/dL Normal 0.2 - 1 HHCCT Calcium SerPl-mCnc 9.7mg/dL Normal 8.7 - 10 .5 HHCCT BUN SerPl-mCnc 43mg/dL Above high normal 8 - 21 HHCCT ALP SerPl-cCnc 64U/L Normal 45 - 128 HH CCT GFR/BSA.pred SerPlBld [id number] 90 Normal 59 - [facility] Chloride SerPl-sCnc 97mmol/L Below low normal 98 - 107 [facility] BUN/Creat SerPl 48Ratio Above high normal 10 - 25 [facility] Albumin SerPl-mCnc 3.3g/dL Below low normal 3 .5 - 5 [facility] Prot SerPl-mCnc 7.5g/dL Normal 6.3 - 8.3 H [facility] Glucose SerPl-mCnc 185mg/dL Above high normal 65 - 99 [facility] Sodium SerPl-sCnc 137mmol/L Normal 136 - 145 [facility] Phosphate SerPl-mCnc 4.3mg/dL Normal 2.7 - 4.5 [facility] Magnesium SerPl-mCnc 2.2mg/dL Normal 1.6 - 2.7 [facility] Lactate SerPl-sCnc 1mmol/L Normal 0.5 - 1. 9 [facility] RBC num Bld Auto 3.94Mil/uL Below low normal 4. 5 - 6.2 [facility] RDW RBC Auto-Rto 16.8% Above high normal 11.5 - 14.5 [facility] PMV Bld Auto 9.2fL Normal 7.5 - 12.[address] MCH RBC Qn Auto 28.7pg Normal 27 - 31 H [facility] WBC num Bld Auto 14.8Thou/uL Above high normal 4 - 11 [facility] Platelet num Bld Auto 615Thou/uL Above high normal 150 - 450 [facility] MCHC RBC Auto-mCnc 31g/dL Normal 30 - 36 [facility] Hct VFr Bld Auto 36.5% Below low normal 39 - 54 [facility] MCV RBC Auto 93fL Normal 80 - 100 HHCC T Hgb Bld-mCnc 11.3g/dL Below low normal 13 - 17 .7 [facility] POC Glucose 189mg/dL Above high normal 65 - 99 [facility] Lactate SerPl-sCnc 1.2mmol/L Normal 0.5 - 1. 9 [facility] TT imm Bovine Thrombin PPP 15.5seconds Normal 12.7 - 19.2 [facility] aPTT PPP 32seconds Normal 25 - 36 [facility] Fibrinogen PPP-mCnc 622mg/dL Above high normal 148 - 435 [facility] INR PPP 1.1 Normal [id number] [facility] Prothrombin time 12.5seconds Normal 10 - 13. 5 [facility] pro BNP, N-terminal 62874et/mL Above high normal [id number] - 125 [facility] Phosphate SerPl-mCnc 3.5mg/dL Normal 2.7 - 4.5 [facility] CK SerPl-cCnc 15U/L Below low normal 24 - 2 04 [facility] Calcium SerPl-mCnc 9.8mg/dL Normal 8.7 - 10 .5 [facility] BUN SerPl-mCnc 40mg/dL Above high normal 8 - 21 [facility] Creat SerPl-mCnc 0.9mg/dL Normal 0.5 - 1.3 [facility] GFR/BSA.pred SerPlBld [id number] 90 Normal 59 - [facility]CT Chloride SerPl-sCnc 96mmol/L Below low normal 98 - 107 [facility] BUN/Creat SerPl 44Ratio Above high normal 10 - 25 [facility] CO2 SerPl-sCnc 31mmol/L Normal 22 - 33 HH CCT Anion Gap Bld-sCnc 10 Normal 7 - 17 [facility] Potassium SerPl-sCnc 5.1mmol/L Normal 3.4 - 5.3 [facility] Glucose SerPl-mCnc 170mg/dL Above high normal 65 - 99 [facility] Sodium SerPl-sCnc 137mmol/L Normal 136 - 145 [facility] AST SerPl-cCnc 25U/L Normal 10 - 55 HH CCT ALP SerPl-cCnc 64U/L Normal 45 - 128 HH CCT ALT SerPl-cCnc 26U/L Normal 10 - 55 HH CCT Globulin Ser Calc-mCnc 4.3g/dL Above high normal 1.5 - 3.9 [facility] Bilirub Direct SerPl-mCnc 0.2mg/dL Normal 0 - 0.2 [facility] Albumin/Glob SerPl 0.8Ratio Below low normal [id number] 1 - 3 [facility] Albumin SerPl-mCnc 3.3g/dL Below low normal [id number] 3 .5 - 5 [facility] Prot SerPl-mCnc 7.6g/dL Normal 6.3 - 8.3 H [facility]CT Bilirub SerPl-mCnc 0.4mg/dL Normal 0.2 - 1 [facility] Magnesium SerPl-mCnc 2.2mg/dL Normal 1.6 - 2.7 [facility] RBC num Bld Auto 3.9Mil/uL Below low normal [id number] 4.5 - 6.2 [facility] RDW RBC Auto-Rto 16.9% Above high normal [id number] 11.5 - 14.5 [facility] PMV Bld Auto 9.3fL Normal 7.5 - 12.[address] MCH RBC Qn Auto 27.7pg Normal 27 - 31 H [facility] WBC num Bld Auto 17.1Thou/uL Above high normal [id number] 4 - 11 [facility] Platelet num Bld Auto 688Thou/uL Above high normal [id number] 150 - 450 [facility] MCHC RBC Auto-mCnc 30.7g/dL Normal 30 - 36 HHCCT Hct VFr Bld Auto 35.2% Below low normal [id number] 39 - 54 H[facility]CT MCV RBC Auto 90fL Normal [id number] 80 - 100 HHCC T Hgb Bld-mCnc 10.8g/dL Below low normal [id number] 13 - 17 .7 HHCCT POC Glucose 171mg/dL Above high normal 65 - 99 HHCCT Anticoagulant OTHER AGENT OR UNKNOWN Normal HHCCT Anticoagulant OTHER AGENT OR UNKNOWN Normal HHCCT Anticoagulant OTHER AGENT OR UNKNOWN Normal HHCCT POC Glucose 227mg/dL Above high normal 65 - 99 HHCCT POC Glucose 202mg/dL Above high normal 65 - 99 HHCCT POC Glucose 127mg/dL Above high normal 65 - 99 HHCCT Calcium SerPl-mCnc 8.3mg/dL Below low normal 8 .7 - 10.5 HHCCT BUN SerPl-mCnc 21mg/dL Normal 8 - 21 HH CCT Creat SerPl-mCnc 1mg/dL Normal 0.5 - 1.3 HHCCT GFR/BSA.pred SerPlBld HUO-NVQ-ZpIQbi 86 Normal 59 - HHCCT Chloride SerPl-sCnc 99mmol/L Normal 98 - 107 HHCCT BUN/Creat SerPl 21Ratio Normal 10 - 25 H HCCT CO2 SerPl-sCnc 36mmol/L Above high normal 22 - 33 HHCCT Anion Gap Bld-sCnc 5 Below low normal 7 - 17 HHCCT Potassium SerPl-sCnc 4.1mmol/L Normal 3.4 - 5.3 HHCCT Glucose SerPl-mCnc 117mg/dL Above high normal 65 - 99 HHCCT Sodium SerPl-sCnc 140mmol/L Normal 136 - 145 HHCCT Magnesium SerPl-mCnc 2.3mg/dL Normal 1.6 - 2.7 HHCCT RBC num Bld Auto 3.12Mil/uL Below low normal 4. 5 - 6.2 HHCCT RDW RBC Auto-Rto 16.3% Above high normal 11.5 - 14.5 HHCCT PMV Bld Auto 9.6fL Normal 7.5 - 12.[address] MCH RBC Qn Auto 28.2pg Normal 27 - 31 H HCCT WBC num Bld Auto 6.6Thou/uL Normal 4 - 11 H[facility]CT Platelet num Bld Auto 288Thou/uL Normal 150 - 450 [facility]CT MCHC RBC Auto-mCnc 30.4g/dL Normal 30 - 36 HHCCT Hct VFr Bld Auto 28.9% Below low normal 39 - 54 HHCCT MCV RBC Auto 93fL Normal [id number] 80 - 100 HHCC T Hgb Bld-mCnc 8.8g/dL Below low normal [id number] 13 - 17 .7 HHCCT POC Glucose 152mg/dL Above high normal 910414384067 65 - 99 HHCCT POC Glucose 169mg/dL Above high normal [id number] 65 - 99 HHCCT POC Glucose 231mg/dL Above high normal 863672503458 65 - 99 HHCCT POC Glucose 200mg/dL Above high normal [id number] 65 - 99 HHCCT Iron Satn MFr SerPl 8% Below low normal [id number] 20 - 50 HHCCT UIBC SerPl-mCnc 147ug/dL Normal [id number] 112 - 346 H HCCT TIBC SerPl-mCnc 160ug/dL Normal [id number] 100 - 400 H HCCT Iron SerPl-mCnc 13ug/dL Below low normal 895028946000 53 - 167 HHCCT POC Glucose 120mg/dL Above high normal 763639342209 - 99 HHCCT Magnesium SerPl-mCnc 2.2mg/dL Normal [id number] 1.6 - 2.7 HHCCT Calcium SerPl-mCnc 8.4mg/dL Below low normal [id number] 8 .7 - 10.5 HHCCT BUN SerPl-mCnc 21mg/dL Normal [id number] 8 - 21 HH CCT Creat SerPl-mCnc 0.9mg/dL Normal [id number] 0.5 - 1.3 HHCCT GFR/BSA.pred SerPlBld OJJ-WRR-ZfIPsm 90 Normal [id number] 59 - HHCCT Chloride SerPl-sCnc 98mmol/L Normal [id number] 98 - 107 HHCCT BUN/Creat SerPl 23Ratio Normal [id number] 10 - 25 H HCCT CO2 SerPl-sCnc 37mmol/L Above high normal [id number] 22 - 33 HHCCT Anion Gap Bld-sCnc 5 Below low normal 331738323815 7 - 17 HHCCT Potassium SerPl-sCnc 3.6mmol/L Normal [id number] 3.4 - 5.3 HHCCT Glucose SerPl-mCnc 118mg/dL Above high normal [id number] 65 - 99 HHCCT Sodium SerPl-sCnc 140mmol/L Normal [id number] 136 - 145 HHCCT RBC num Bld Auto 3.09Mil/uL Below low normal [id number] 4. 5 - 6.2 HHCCT RDW RBC Auto-Rto 16.4% Above high normal [id number] 11.5 - 14.5 HHCCT PMV Bld Auto 9.8fL Normal [id number] 7.5 - 12.[address] MCH RBC Qn Auto 28.2pg Normal [id number] 27 - 31 H HCCT WBC num Bld Auto 6.7Thou/uL Normal [id number] 4 - 11 H[facility]CT Platelet num Bld Auto 252Thou/uL Normal [id number] 150 - 450 [facility]CT MCHC RBC Auto-mCnc 30.1g/dL Normal [id number] 30 - 36 HHCCT Hct VFr Bld Auto 28.9% Below low normal [id number] 39 - 54 HHCCT MCV RBC Auto 94fL Normal [id number] 80 - 100 HH[facility] T Hgb Bld-mCnc 8.7g/dL Below low normal [id number] 13 - 17 .7 HHCCT POC Glucose 195mg/dL Above high normal [id number] 65 - 99 HHCCT POC Glucose 200mg/dL Above high normal 460050415365 65 - 99 HHCCT POC Glucose 221mg/dL Above high normal [id number] 65 - 99 HHCCT POC Glucose 138mg/dL Above high normal [id number] 65 - 99 HHCCT POC Glucose 98mg/dL Normal [id number] 65 - 99 HHCCT Magnesium SerPl-mCnc 2mg/dL Normal [id number] 1.6 - 2.7 HHCCT Calcium SerPl-mCnc 8.1mg/dL Below low normal [id number] 8 .7 - 10.5 HHCCT BUN SerPl-mCnc 25mg/dL Above high normal [id number] 8 - 21 HHCCT Creat SerPl-mCnc 1.1mg/dL Normal [id number] 0.5 - 1.3 HHCCT GFR/BSA.pred SerPlBld LOB-AXA-VjGYrd 77 Normal [id number] 59 - HHCCT Chloride SerPl-sCnc 97mmol/L Below low normal [id number] 98 - 107 HHCCT BUN/Creat SerPl 23Ratio Normal [id number] 10 - 25 H HCCT CO2 SerPl-sCnc 37mmol/L Above high normal [id number] 22 - 33 HHCCT Anion Gap Bld-sCnc 5 Below low normal [id number] 7 - 17 HHCCT Potassium SerPl-sCnc 4mmol/L Normal [id number] 3.4 - 5.3 HHCCT Glucose SerPl-mCnc 116mg/dL Above high normal 156115254029 65 - 99 HHCCT Sodium SerPl-sCnc 139mmol/L Normal [id number] 136 - 145 HHCCT RBC num Bld Auto 3.22Mil/uL Below low normal [id number] 4. 5 - 6.2 HHCCT RDW RBC Auto-Rto 16.3% Above high normal [id number] 11.5 - 14.5 HHCCT PMV Bld Auto 10fL Normal [id number] 7.5 - 12.[address] MCH RBC Qn Auto 28.3pg Normal [id number] 27 - 31 H HCCT WBC num Bld Auto 8.8Thou/uL Normal [id number] 4 - 11 HHCCT Platelet num Bld Auto 198Thou/uL Normal [id number] 150 - 450 [facility]CT MCHC RBC Auto-mCnc 31g/dL Normal [id number] 30 - 36 HHCCT Hct VFr Bld Auto 29.4% Below low normal [id number] 39 - 54 HHCCT MCV RBC Auto 91fL Normal [id number] 80 - 100 HH[facility] T Hgb Bld-mCnc 9.1g/dL Below low normal [id number] 13 - 17 .7 HHCCT POC Glucose 107mg/dL Above high normal [id number] 65 - 99 HHCCT POC Glucose 182mg/dL Above high normal [id number] 65 - 99 HHCCT POC Glucose 107mg/dL Above high normal 206607622311 65 - 99 HHCCT POC Glucose 131mg/dL Above high normal 488374734963 65 - 99 HHCCT POC Glucose 139mg/dL Above high normal [id number] 65 - 99 HHCCT Calcium SerPl-mCnc 8.4mg/dL Below low normal [id number] 8 .7 - 10.5 HHCCT BUN SerPl-mCnc 24mg/dL Above high normal 275906340931 8 - 21 HHCCT Creat SerPl-mCnc 0.8mg/dL Normal [id number] 0.5 - 1.3 HHCCT GFR/BSA.pred SerPlBld XVM-MRB-LwDHed 90 Normal [id number] 59 - HHCCT Chloride SerPl-sCnc 97mmol/L Below low normal [id number] 98 - 107 HHCCT BUN/Creat SerPl 30Ratio Above high normal [id number] 10 - 25 HHCCT CO2 SerPl-sCnc 32mmol/L Normal [id number] 22 - 33 HH CCT Anion Gap Bld-sCnc 7 Normal [id number] 7 - 17 HHCCT Potassium SerPl-sCnc 4.2mmol/L Normal [id number] 3.4 - 5.3 HHCCT Glucose SerPl-mCnc 127mg/dL Above high normal 515929015817 65 - 99 HHCCT Sodium SerPl-sCnc 136mmol/L Normal [id number] 136 - 145 HHCCT Magnesium SerPl-mCnc 2mg/dL Normal [id number] 1.6 - 2.7 HHCCT RBC num Bld Auto 3.15Mil/uL Below low normal [id number] 4. 5 - 6.2 HHCCT RDW RBC Auto-Rto 16.5% Above high normal [id number] 11.5 - 14.5 HHCCT PMV Bld Auto 10.2fL Normal [id number] 7.5 - 12.[address] MCH RBC Qn Auto 28.6pg Normal [id number] 27 - 31 H HCCT WBC num Bld Auto 7.9Thou/uL Normal [id number] 4 - 11 HHCCT Platelet num Bld Auto 160Thou/uL Normal [id number] 150 - 450 [facility]CT MCHC RBC Auto-mCnc 30.1g/dL Normal [id number] 30 - 36 HHCCT Hct VFr Bld Auto 29.9% Below low normal 515485642237 39 - 54 HHCCT MCV RBC Auto 95fL Normal [id number] 80 - 100 HHCC T Hgb Bld-mCnc 9g/dL Below low normal [id number] 13 - 17 .7 HHCCT POC Glucose 151mg/dL Above high normal [id number] 65 - 99 HHCCT POC Glucose 208mg/dL Above high normal [id number] 65 - 99 HHCCT POC Glucose 150mg/dL Above high normal 531995999422 65 - 99 HHCCT POC Glucose 216mg/dL Above high normal [id number] 65 - 99 HHCCT POC Glucose 153mg/dL Above high normal 662661622144 65 - 99 HHCCT Magnesium SerPl-mCnc 1.9mg/dL Normal [id number] 1.6 - 2.7 HHCCT Calcium SerPl-mCnc 8.5mg/dL Below low normal 591016063213 8 .7 - 10.5 HHCCT BUN SerPl-mCnc 25mg/dL Above high normal [id number] 8 - 21 HHCCT Creat SerPl-mCnc 0.9mg/dL Normal [id number] 0.5 - 1.3 HHCCT GFR/BSA.pred SerPlBld KUJ-QMC-BnFUwn 90 Normal [id number] 59 - HHCCT Chloride SerPl-sCnc 94mmol/L Below low normal [id number] 98 - 107 HHCCT BUN/Creat SerPl 28Ratio Above high normal [id number] 10 - 25 HHCCT CO2 SerPl-sCnc 31mmol/L Normal [id number] 22 - 33 HH CCT Anion Gap Bld-sCnc 7 Normal [id number] 7 - 17 HHCCT Potassium SerPl-sCnc 5.1mmol/L Normal [id number] 3.4 - 5.3 HHCCT Glucose SerPl-mCnc 158mg/dL Above high normal 732813596347 65 - 99 HHCCT Sodium SerPl-sCnc 132mmol/L Below low normal 275973311212 13 6 - 145 HHCCT RBC num Bld Auto 3.38Mil/uL Below low normal [id number] 4. 5 - 6.2 HHCCT RDW RBC Auto-Rto 16.7% Above high normal [id number] 11.5 - 14.5 HHCCT PMV Bld Auto 9.7fL Normal [id number] 7.5 - 12.[address] MCH RBC Qn Auto 29.3pg Normal [id number] 27 - 31 H HCCT WBC num Bld Auto 8.5Thou/uL Normal [id number] 4 - 11 HHCCT Platelet num Bld Auto 156Thou/uL Normal [id number] 150 - 450 H[facility]CT MCHC RBC Auto-mCnc 30.9g/dL Normal [id number] 30 - 36 HHCCT Hct VFr Bld Auto 32% Below low normal [id number] 39 - 54 HHCCT MCV RBC Auto 95fL Normal [id number] 80 - 100 HHCC T Hgb Bld-mCnc 9.9g/dL Below low normal [id number] 13 - 17 .7 HHCCT POC Glucose 188mg/dL Above high normal [id number] 65 - 99 HHCCT POC Glucose 174mg/dL Above high normal [id number] 65 - 99 HHCCT POC Glucose 224mg/dL Above high normal [id number] 65 - 99 HHCCT POC Glucose 211mg/dL Above high normal [id number] 65 - 99 HHCCT Magnesium SerPl-mCnc 2.2mg/dL Normal [id number] 1.6 - 2.7 HHCCT Calcium SerPl-mCnc 8.4mg/dL Below low normal [id number] 8 .7 - 10.5 HHCCT BUN SerPl-mCnc 23mg/dL Above high normal [id number] 8 - 21 HHCCT Creat SerPl-mCnc 0.9mg/dL Normal [id number] 0.5 - 1.3 HHCCT GFR/BSA.pred SerPlBld NMI-ZML-BeYQxl 90 Normal [id number] 59 - HHCCT Chloride SerPl-sCnc 97mmol/L Below low normal [id number] 98 - 107 HHCCT BUN/Creat SerPl 26Ratio Above high normal [id number] 10 - 25 HHCCT CO2 SerPl-sCnc 32mmol/L Normal [id number] 22 - 33 HH CCT Anion Gap Bld-sCnc 6 Below low normal [id number] 7 - 17 HHCCT Potassium SerPl-sCnc 4.7mmol/L Normal [id number] 3.4 - 5.3 HHCCT Glucose SerPl-mCnc 140mg/dL Above high normal [id number] 65 - 99 HHCCT Sodium SerPl-sCnc 135mmol/L Below low normal 864520024836 13 6 - 145 HHCCT RBC num Bld Auto 3.66Mil/uL Below low normal [id number] 4. 5 - 6.2 HHCCT RDW RBC Auto-Rto 16.9% Above high normal [id number] 11.5 - 14.5 HHCCT PMV Bld Auto 10.2fL Normal [id number] 7.5 - 12.[address] MCH RBC Qn Auto 29.2pg Normal [id number] 27 - 31 H HCCT WBC num Bld Auto 8.6Thou/uL Normal [id number] 4 - 11 HHCCT Platelet num Bld Auto 176Thou/uL Normal [id number] 150 - 450 HHCCT MCHC RBC Auto-mCnc 30.3g/dL Normal [id number] 30 - 36 HHCCT Hct VFr Bld Auto 35.3% Below low normal [id number] 39 - 54 HHCCT MCV RBC Auto 96fL Normal [id number] 80 - 100 HHCC T Hgb Bld-mCnc 10.7g/dL Below low normal [id number] 13 - 17 .7 HHCCT POC Glucose 149mg/dL Above high normal [id number] 65 - 99 HHCCT POC Glucose 202mg/dL Above high normal [id number] 65 - 99 HHCCT POC Glucose 255mg/dL Above high normal [id number] 65 - 99 HHCCT POC Glucose 211mg/dL Above high normal 758296409998 65 - 99 HHCCT POC Glucose 175mg/dL Above high normal [id number] 65 - 99 HHCCT POC Glucose 116mg/dL Above high normal [id number] 65 - 99 HHCCT POC Glucose 156mg/dL Above high normal 754159754142 65 - 99 HHCCT Magnesium SerPl-mCnc 2.1mg/dL Normal [id number] 1.6 - 2.7 HHCCT Calcium SerPl-mCnc 8.5mg/dL Below low normal [id number] 8 .7 - 10.5 HHCCT BUN SerPl-mCnc 25mg/dL Above high normal [id number] 8 - 21 HHCCT Creat SerPl-mCnc 1mg/dL Normal [id number] 0.5 - 1.3 HHCCT GFR/BSA.pred SerPlBld OSV-NYG-AhTXuq 86 Normal [id number] 59 - HHCCT Chloride SerPl-sCnc 96mmol/L Below low normal [id number] 98 - 107 HHCCT BUN/Creat SerPl 25Ratio Normal [id number] 10 - 25 H HCCT CO2 SerPl-sCnc 34mmol/L Above high normal [id number] 22 - 33 HHCCT Anion Gap Bld-sCnc 6 Below low normal [id number] 7 - 17 HHCCT Potassium SerPl-sCnc 5.3mmol/L Normal [id number] 3.4 - 5.3 HHCCT Glucose SerPl-mCnc 99mg/dL Normal [id number] 65 - 99 HHCCT Sodium SerPl-sCnc 136mmol/L Normal [id number] 136 - 145 HHCCT RBC num Bld Auto 3.69Mil/uL Below low normal [id number] 4. 5 - 6.2 HHCCT RDW RBC Auto-Rto 16.8% Above high normal [id number] 11.5 - 14.5 HHCCT PMV Bld Auto 10.5fL Normal [id number] 7.5 - 12.[address] MCH RBC Qn Auto 29.8pg Normal [id number] 27 - 31 H HCCT WBC num Bld Auto 8.5Thou/uL Normal [id number] 4 - 11 HHCCT Platelet num Bld Auto 179Thou/uL Normal [id number] 150 - 450 HHCCT MCHC RBC Auto-mCnc 31.3g/dL Normal [id number] 30 - 36 HHCCT Hct VFr Bld Auto 35.1% Below low normal [id number] 39 - 54 HHCCT MCV RBC Auto 95fL Normal [id number] 80 - 100 HHCC T Hgb Bld-mCnc 11g/dL Below low normal [id number] 13 - 17 .7 HHCCT POC Glucose 99mg/dL Normal [id number] 65 - 99 HHCCT POC Glucose 100mg/dL Above high normal [id number] 65 - 99 HHCCT POC Glucose 105mg/dL Above high normal [id number] 65 - 99 HHCCT POC Glucose 115mg/dL Above high normal [id number] 65 - 99 HHCCT POC Glucose 75mg/dL Normal [id number] 65 - 99 HHCCT POC Glucose 70mg/dL Normal [id number] 65 - 99 HHCCT POC Glucose 121mg/dL Above high normal [id number] 65 - 99 HHCCT Magnesium SerPl-mCnc 2.2mg/dL Normal [id number] 1.6 - 2.7 HHCCT Calcium SerPl-mCnc 8.4mg/dL Below low normal [id number] 8 .7 - 10.5 HHCCT BUN SerPl-mCnc 18mg/dL Normal [id number] 8 - 21 HH CCT Creat SerPl-mCnc 1mg/dL Normal [id number] 0.5 - 1.3 HHCCT GFR/BSA.pred SerPlBld HFJ-SAP-MrDSog 86 Normal [id number] 59 - HHCCT Chloride SerPl-sCnc 98mmol/L Normal [id number] 98 - 107 HHCCT BUN/Creat SerPl 18Ratio Normal [id number] 10 - 25 H HCCT CO2 SerPl-sCnc 31mmol/L Normal [id number] 22 - 33 HH CCT Anion Gap Bld-sCnc 7 Normal [id number] 7 - 17 HHCCT Potassium SerPl-sCnc 4.6mmol/L Normal [id number] 3.4 - 5.3 HHCCT Glucose SerPl-mCnc 49mg/dL Critically low [id number] 65 - 99 HHCCT Sodium SerPl-sCnc 136mmol/L Normal [id number] 136 - 145 HHCCT LMWH PPP Business Process Lead-aCnc 0.04IU/mL Normal [id number] HHCCT RBC num Bld Auto 3.86Mil/uL Below low normal [id number] 4. 5 - 6.2 HHCCT RDW RBC Auto-Rto 16.8% Above high normal [id number] 11.5 - 14.5 HHCCT PMV Bld Auto 10.2fL Normal [id number] 7.5 - 12.[address] MCH RBC Qn Auto 28.8pg Normal [id number] 27 - 31 H HCCT WBC num Bld Auto 8.8Thou/uL Normal [id number] 4 - 11 HHCCT Platelet num Bld Auto 202Thou/uL Normal [id number] 150 - 450 HHCCT MCHC RBC Auto-mCnc 30.2g/dL Normal [id number] 30 - 36 HHCCT Hct VFr Bld Auto 36.7% Below low normal [id number] 39 - 54 HHCCT MCV RBC Auto 95fL Normal [id number] 80 - 100 HHCC T Hgb Bld-mCnc 11.1g/dL Below low normal [id number] 13 - 17 .7 HHCCT POC Glucose 45mg/dL Below low normal [id number] 65 - 99 HHCCT POC Glucose 95mg/dL Normal [id number] 65 - 99 HHCCT POC Glucose 122mg/dL Above high normal [id number] 65 - 99 HHCCT Anticoagulant IV HEPARIN, UNFRACTIONATED Normal [id number] HHCCT POC Glucose 70mg/dL Normal [id number] 65 - 99 HHCCT POC Glucose 82mg/dL Normal [id number] 65 - 99 HHCCT POC Glucose 63mg/dL Below low normal [id number] 65 - 99 HHCCT POC Glucose 88mg/dL Normal [id number] 65 - 99 HHCCT POC Glucose 110mg/dL Above high normal [id number] 65 - 99 HHCCT POC Glucose 80mg/dL Normal [id number] 65 - 99 HHCCT POC Glucose 77mg/dL Normal [id number] 65 - 99 HHCCT Calcium SerPl-mCnc 8.9mg/dL Normal [id number] 8.7 - 10 .5 HHCCT BUN SerPl-mCnc 13mg/dL Normal [id number] 8 - 21 HH CCT Creat SerPl-mCnc 0.9mg/dL Normal [id number] 0.5 - 1.3 HHCCT GFR/BSA.pred SerPlBld CPF-VKS-BeEAmp 90 Normal [id number] 59 - HHCCT Chloride SerPl-sCnc 99mmol/L Normal [id number] 98 - 107 HHCCT BUN/Creat SerPl 14Ratio Normal [id number] 10 - 25 H HCCT CO2 SerPl-sCnc 31mmol/L Normal [id number] 22 - 33 HH CCT Anion Gap Bld-sCnc 7 Normal [id number] 7 - 17 HHCCT Potassium SerPl-sCnc 5.3mmol/L Normal [id number] 3.4 - 5.3 HHCCT Glucose SerPl-mCnc 65mg/dL Normal [id number] 65 - 99 HHCCT Sodium SerPl-sCnc 137mmol/L Normal [id number] 136 - 145 HHCCT Magnesium SerPl-mCnc 2.3mg/dL Normal [id number] 1.6 - 2.7 HHCCT RBC num Bld Auto 3.86Mil/uL Below low normal [id number] 4. 5 - 6.2 HHCCT RDW RBC Auto-Rto 17.2% Above high normal [id number] 11.5 - 14.5 HHCCT PMV Bld Auto 10fL Normal [id number] 7.5 - 12.[address] MCH RBC Qn Auto 28.5pg Normal [id number] 27 - 31 H HCCT WBC num Bld Auto 7.4Thou/uL Normal [id number] 4 - 11 HHCCT Platelet num Bld Auto 208Thou/uL Normal [id number] 150 - 450 HHCCT MCHC RBC Auto-mCnc 31.1g/dL Normal [id number] 30 - 36 HHCCT Hct VFr Bld Auto 35.4% Below low normal [id number] 39 - 54 HHCCT MCV RBC Auto 92fL Normal [id number] 80 - 100 HHCC T Hgb Bld-mCnc 11g/dL Below low normal [id number] 13 - 17 .7 HHCCT LMWH PPP Business Process Lead-aCnc 0.04IU/mL Normal [id number] HHCCT POC Glucose 73mg/dL Normal [id number] 65 - 99 HHCCT POC Glucose 99mg/dL Normal [id number] 65 - 99 HHCCT POC Glucose 62mg/dL Below low normal [id number] 65 - 99 HHCCT POC Glucose 49mg/dL Below low normal [id number] 65 - 99 HHCCT Anticoagulant IV HEPARIN, UNFRACTIONATED Normal [id number] HHCCT POC Glucose 90mg/dL Normal [id number] 65 - 99 HHCCT POC Glucose 92mg/dL Normal [id number] 65 - 99 HHCCT POC Glucose 98mg/dL Normal [id number] 65 - 99 HHCCT RBC num Bld Auto 3.67Mil/uL Below low normal [id number] 4. 5 - 6.2 HHCCT RDW RBC Auto-Rto 17.2% Above high normal [id number] 11.5 - 14.5 HHCCT PMV Bld Auto 10.2fL Normal [id number] 7.5 - 12.[address] MCH RBC Qn Auto 28.6pg Normal [id number] 27 - 31 H HCCT WBC num Bld Auto 7.8Thou/uL Normal [id number] 4 - 11 HHCCT Platelet num Bld Auto 208Thou/uL Normal [id number] 150 - 450 HHCCT MCHC RBC Auto-mCnc 31g/dL Normal [id number] 30 - 36 HHCCT Hct VFr Bld Auto 33.9% Below low normal [id number] 39 - 54 HHCCT MCV RBC Auto 92fL Normal [id number] 80 - 100 HHCC T Hgb Bld-mCnc 10.5g/dL Below low normal [id number] 13 - 17 .7 HHCCT Calcium SerPl-mCnc 8.6mg/dL Below low normal [id number] 8 .7 - 10.5 HHCCT BUN SerPl-mCnc 12mg/dL Normal [id number] 8 - 21 HH CCT Creat SerPl-mCnc 0.9mg/dL Normal [id number] 0.5 - 1.3 HHCCT GFR/BSA.pred SerPlBld ICG-GJB-KnCZao 90 Normal [id number] 59 - HHCCT Chloride SerPl-sCnc 102mmol/L Normal [id number] 98 - 107 HHCCT BUN/Creat SerPl 13Ratio Normal [id number] 10 - 25 H HCCT CO2 SerPl-sCnc 32mmol/L Normal [id number] 22 - 33 HH CCT Anion Gap Bld-sCnc 4 Below low normal [id number] 7 - 17 HHCCT Potassium SerPl-sCnc 5.2mmol/L Normal [id number] 3.4 - 5.3 HHCCT Glucose SerPl-mCnc 78mg/dL Normal [id number] 65 - 99 HHCCT Sodium SerPl-sCnc 138mmol/L Normal [id number] 136 - 145 HHCCT Magnesium SerPl-mCnc 2.2mg/dL Normal [id number] 1.6 - 2.7 HHCCT LMWH PPP Business Process Lead-aCnc 0.48IU/mL Normal [id number] HHCCT POC Glucose 78mg/dL Normal [id number] 65 - 99 HHCCT POC Glucose 80mg/dL Normal [id number] 65 - 99 HHCCT Anticoagulant IV HEPARIN, UNFRACTIONATED Normal [id number] HHCCT POC Glucose 160mg/dL Above high normal [id number] 65 - 99 HHCCT POC Glucose 70mg/dL Normal [id number] 65 - 99 HHCCT POC Glucose 63mg/dL Below low normal [id number] 65 - 99 HHCCT POC Glucose 48mg/dL Below low normal [id number] 65 - 99 HHCCT POC Glucose 97mg/dL Normal [id number] 65 - 99 HHCCT POC Glucose 73mg/dL Normal [id number] 65 - 99 HHCCT POC Glucose 82mg/dL Normal [id number] 65 - 99 HHCCT LMWH PPP Business Process Lead-aCnc 0.52IU/mL Normal [id number] HHCCT Magnesium SerPl-mCnc 1.9mg/dL Normal [id number] 1.6 - 2.7 HHCCT Calcium SerPl-mCnc 8mg/dL Below low normal [id number] 8 .7 - 10.5 HHCCT BUN SerPl-mCnc 13mg/dL Normal [id number] 8 - 21 HH CCT Creat SerPl-mCnc 0.7mg/dL Normal [id number] 0.5 - 1.3 HHCCT GFR/BSA.pred SerPlBld EOA-VTB-GfEQgi 90 Normal [id number] 59 - HHCCT Chloride SerPl-sCnc 101mmol/L Normal [id number] 98 - 107 HHCCT BUN/Creat SerPl 19Ratio Normal [id number] 10 - 25 H HCCT CO2 SerPl-sCnc 31mmol/L Normal [id number] 22 - 33 HH CCT Anion Gap Bld-sCnc 5 Below low normal [id number] 7 - 17 HHCCT Potassium SerPl-sCnc 4mmol/L Normal [id number] 3.4 - 5.3 HHCCT Glucose SerPl-mCnc 89mg/dL Normal [id number] 65 - 99 HHCCT Sodium SerPl-sCnc 137mmol/L Normal [id number] 136 - 145 HHCCT RBC num Bld Auto 3.86Mil/uL Below low normal [id number] 4. 5 - 6.2 HHCCT RDW RBC Auto-Rto 17% Above high normal [id number] 11.5 - 14.5 HHCCT PMV Bld Auto 10.1fL Normal [id number] 7.5 - 12.[address] MCH RBC Qn Auto 28.5pg Normal [id number] 27 - 31 H HCCT WBC num Bld Auto 9.3Thou/uL Normal [id number] 4 - 11 HHCCT Platelet num Bld Auto 215Thou/uL Normal [id number] 150 - 450 [facility] MCHC RBC Auto-mCnc 31.5g/dL Normal [id number] 30 - 36 [facility] Hct VFr Bld Auto 34.9% Below low normal [id number] 39 - 54 [facility] MCV RBC Auto 90fL Normal [id number] 80 - 100 HH[facility] T Hgb Bld-mCnc 11g/dL Below low normal [id number] 13 - 17 .7 H[facility]CT Anticoagulant IV HEPARIN, UNFRACTIONATED Normal [id number] HHCCT POC Glucose 182mg/dL Above high normal [id number] 65 - 99 [facility] POC Glucose 229mg/dL Above high normal [id number] 65 - 99 [facility]CT LMWH PPP Business Process Lead-aCnc 0.38IU/mL Normal [id number] HHCCT POC Glucose 162mg/dL Above high normal [id number] 65 - 99 [facility]CT Anticoagulant IV HEPARIN, UNFRACTIONATED Normal [id number] HHCCT LMWH PPP Business Process Lead-aCnc 0.39IU/mL Normal [id number] H[facility]CT Magnesium SerPl-mCnc 2.1mg/dL Normal [id number] 1.6 - 2.7 H[facility]CT Calcium SerPl-mCnc 7.8mg/dL Below low normal [id number] 8 .7 - 10.5 H[facility]CT BUN SerPl-mCnc 13mg/dL Normal [id number] 8 - 21 HH CCT Creat SerPl-mCnc 0.7mg/dL Normal [id number] 0.5 - 1.3 H[facility]CT GFR/BSA.pred SerPlBld ZWI-DWO-BxBQsb 90 Normal [id number] 59 - HHCCT Chloride SerPl-sCnc 99mmol/L Normal [id number] 98 - 107 H[facility]CT BUN/Creat SerPl 19Ratio Normal [id number] 10 - 25 H HCCT CO2 SerPl-sCnc 30mmol/L Normal [id number] 22 - 33 HH CCT Anion Gap Bld-sCnc 7 Normal [id number] 7 - 17 [facility]CT Potassium SerPl-sCnc 3.7mmol/L Normal [id number] 3.4 - 5.3 [facility]CT Glucose SerPl-mCnc 89mg/dL Normal [id number] 65 - 99 [facility] Sodium SerPl-sCnc 136mmol/L Normal [id number] 136 - 145 [facility] RBC num Bld Auto 3.77Mil/uL Below low normal [id number] 4. 5 - 6.2 [facility] RDW RBC Auto-Rto 16.8% Above high normal [id number] 11.5 - 14.5 [facility] PMV Bld Auto 10.1fL Normal [id number] 7.5 - 12.[address] MCH RBC Qn Auto 28.6pg Normal [id number] 27 - 31 H [facility]CT WBC num Bld Auto 9.8Thou/uL Normal [id number] 4 - 11 [facility] Platelet num Bld Auto 205Thou/uL Normal [id number] 150 - 450 [facility]CT MCHC RBC Auto-mCnc 31.8g/dL Normal [id number] 30 - 36 H[facility]CT Hct VFr Bld Auto 34% Below low normal [id number] 39 - 54 H[facility]CT MCV RBC Auto 90fL Normal [id number] 80 - 100 HH[facility] T Hgb Bld-mCnc 10.8g/dL Below low normal [id number] 13 - 17 .7 HHCCT POC Glucose 93mg/dL Normal [id number] 65 - 99 [facility]CT Anticoagulant IV HEPARIN, UNFRACTIONATED Normal [id number] HHCCT LMWH PPP Business Process Lead-aCnc 0.22IU/mL Normal [id number] HHCCT POC Glucose 174mg/dL Above high normal [id number] 65 - 99 [facility]CT Anticoagulant IV HEPARIN, UNFRACTIONATED Normal [id number] HHCCT POC Glucose 163mg/dL Above high normal [id number] 65 - 99 [facility]CT POC Glucose 95mg/dL Normal [id number] 65 - 99 [facility]CT RBC num Bld Auto 4Mil/uL Below low normal [id number] 4.5 - 6.2 [facility]CT RDW RBC Auto-Rto 16.7% Above high normal [id number] 11.5 - 14.5 HHCCT PMV Bld Auto 10fL Normal [id number] 7.5 - 12.[address] MCH RBC Qn Auto 29.5pg Normal [id number] 27 - 31 H HCCT WBC num Bld Auto 11.3Thou/uL Above high normal [id number] 4 - 11 [facility] Platelet num Bld Auto 258Thou/uL Normal [id number] 150 - 450 [facility]CT MCHC RBC Auto-mCnc 31.3g/dL Normal [id number] 30 - 36 HHCCT Hct VFr Bld Auto 37.7% Below low normal [id number] 39 - 54 H[facility]CT MCV RBC Auto 94fL Normal [id number] 80 - 100 [facility] T Hgb Bld-mCnc 11.8g/dL Below low normal [id number] 13 - 17 .7 H[facility]CT Calcium SerPl-mCnc 8.4mg/dL Below low normal [id number] 8 .7 - 10.5 H[facility]CT BUN SerPl-mCnc 14mg/dL Normal [id number] 8 - 21 HH CCT Creat SerPl-mCnc 0.8mg/dL Normal [id number] 0.5 - 1.3 [facility] GFR/BSA.pred SerPlBld [id number] 90 Normal [id number] 59 - HHCCT Chloride SerPl-sCnc 100mmol/L Normal [id number] 98 - 107 [facility] BUN/Creat SerPl 18Ratio Normal [id number] 10 - 25 H HCCT CO2 SerPl-sCnc 35mmol/L Above high normal [id number] 22 - 33 H[facility]CT Anion Gap Bld-sCnc 3 Below low normal [id number] 7 - 17 H[facility]CT Potassium SerPl-sCnc 5.1mmol/L Normal [id number] 3.4 - 5.3 H[facility]CT Glucose SerPl-mCnc 93mg/dL Normal [id number] 65 - 99 H[facility]CT Sodium SerPl-sCnc 138mmol/L Normal [id number] 136 - 145 H[facility]CT Magnesium SerPl-mCnc 2mg/dL Normal [id number] 1.6 - 2.7 HHCCT LMWH PPP Business Process Lead-aCnc 0.04IU/mL Normal [id number] HHCCT POC Glucose 86mg/dL Normal [id number] 65 - 99 H[facility]CT POC Glucose 75mg/dL Normal [id number] 65 - 99 H[facility]CT POC Glucose 149mg/dL Above high normal [id number] 65 - 99 H[facility]CT LMWH PPP Business Process Lead-aCnc 0.25IU/mL Normal [id number] HHCCT Anticoagulant IV HEPARIN, UNFRACTIONATED Normal [id number] HHCCT POC Glucose 114mg/dL Above high normal [id number] 65 - 99 H[facility]CT Anticoagulant IV HEPARIN, UNFRACTIONATED Normal [id number] HHCCT LMWH PPP Business Process Lead-aCnc 0.31IU/mL Normal [id number] HHCCT POC Glucose 82mg/dL Normal [id number] 65 - 99 H[facility]CT POC Glucose 110mg/dL Above high normal [id number] 65 - 99 H[facility]CT Anticoagulant IV HEPARIN, UNFRACTIONATED Normal [id number] HHCCT POC Glucose 80mg/dL Normal [id number] 65 - 99 HHCCT Calcium SerPl-mCnc 7.8mg/dL Below low normal [id number] 8 .7 - 10.5 HHCCT BUN SerPl-mCnc 16mg/dL Normal [id number] 8 - 21 HH CCT Creat SerPl-mCnc 0.7mg/dL Normal [id number] 0.5 - 1.3 HHCCT GFR/BSA.pred SerPlBld [id number]-[id number]-TtQRhv 90 Normal [id number] 59 - HHCCT Chloride SerPl-sCnc 102mmol/L Normal [id number] 98 - 107 H[facility]CT BUN/Creat SerPl 23Ratio Normal [id number] 10 - 25 H HCCT CO2 SerPl-sCnc 33mmol/L Normal [id number] 22 - 33 HH CCT Anion Gap Bld-sCnc 4 Below low normal [id number] 7 - 17 H[facility]CT Potassium SerPl-sCnc 4.1mmol/L Normal [id number] 3.4 - 5.3 H[facility]CT Glucose SerPl-mCnc 87mg/dL Normal [id number] 65 - 99 H[facility]CT Sodium SerPl-sCnc 139mmol/L Normal [id number] 136 - 145 H[facility]CT Magnesium SerPl-mCnc 2.1mg/dL Normal [id number] 1.6 - 2.7 H[facility]CT RBC num Bld Auto 3.81Mil/uL Below low normal [id number] 4. 5 - 6.2 HHCCT RDW RBC Auto-Rto 16.3% Above high normal [id number] 11.5 - 14.5 HHCCT PMV Bld Auto 10.5fL Normal [id number] 7.5 - 12.[address] MCH RBC Qn Auto 28.3pg Normal [id number] 27 - 31 H HCCT WBC num Bld Auto 13.8Thou/uL Above high normal [id number] 4 - 11 [facility] Platelet num Bld Auto 250Thou/uL Normal [id number] 150 - 450 HHCCT MCHC RBC Auto-mCnc 31.3g/dL Normal [id number] 30 - 36 HHCCT Hct VFr Bld Auto 34.5% Below low normal [id number] 39 - 54 HHCCT MCV RBC Auto 91fL Normal [id number] 80 - 100 HHCC T Hgb Bld-mCnc 10.8g/dL Below low normal [id number] 13 - 17 .7 HHCCT LMWH PPP Business Process Lead-aCnc 0.27IU/mL Normal [id number] HHCCT POC Glucose 98mg/dL Normal [id number] 65 - 99 HHCCT Anticoagulant IV HEPARIN, UNFRACTIONATED Normal [id number] HHCCT POC Glucose 165mg/dL Above high normal [id number] 65 - 99 HHCCT POC Glucose 290mg/dL Above high normal [id number] 65 - 99 HHCCT POC Glucose 174mg/dL Above high normal [id number] 65 - 99 HHCCT Calcium SerPl-mCnc 7.9mg/dL Below low normal [id number] 8 .7 - 10.5 HHCCT BUN SerPl-mCnc 17mg/dL Normal [id number] 8 - 21 HH CCT Creat SerPl-mCnc 0.8mg/dL Normal [id number] 0.5 - 1.3 HHCCT GFR/BSA.pred SerPlBld [id number] 90 Normal [id number] 59 - HHCCT Chloride SerPl-sCnc 102mmol/L Normal [id number] 98 - 107 H[facility]CT BUN/Creat SerPl 21Ratio Normal [id number] 10 - 25 H HCCT CO2 SerPl-sCnc 35mmol/L Above high normal [id number] 22 - 33 HHCCT Anion Gap Bld-sCnc 3 Below low normal [id number] 7 - 17 HHCCT Potassium SerPl-sCnc 4.1mmol/L Normal [id number] 3.4 - 5.3 H[facility]CT Glucose SerPl-mCnc 138mg/dL Above high normal [id number] 65 - 99 HHCCT Sodium SerPl-sCnc 140mmol/L Normal [id number] 136 - 145 HHCCT Magnesium SerPl-mCnc 2.2mg/dL Normal [id number] 1.6 - 2.7 HHCCT LMWH PPP Business Process Lead-aCnc 0.36IU/mL Normal [id number] HHCCT Anticoagulant IV HEPARIN, UNFRACTIONATED Normal [id number] HHCCT History of Medication Use Medication Directions Dispensed Refills Start Date End Date Stat lidocaine (LIDODERM) 5 % patch Place 1 patch on the skin daily. Apply patch and leave on for 12 hours then remove. Patch may remain on skin for 12 hours per day. 02/25/2024 active SUPPLY DME MISC 1 pair of extrawide extra-depth diabetic shoes with custom molded Plastizote inserts. Inserts will require a filler for the left great toe as well as offloading underneath the second metatarsal head. He will require multiple pairs of inserts to transition throughout the year. 12/26/2023 active thiamine mononitrate (VITAMIN B-1) 100 MG tablet Take 1 tablet (100 mg total) by mouth daily. Do not start before December 05, 2023. 12/08/2023 active diclofenac (VOLTAREN) 1 % gel Apply 2 g topically 4 (four) times a day. Use dosing card to measure dose. Apply to entire affect area on left shoulder. 12/08/2023 active apixaban (ELIQUIS) 5 MG tablet Take 1 tablet (5 mg total) by mouth every 12 (twelve) hours around the clock. 12/08/2023 active insulin glargine (LANtus/SEMGLEE SOLOSTAR) 100 units/mL prefilled pen injection Inject 17 Units under the skin nightly. 12/08/2023 active metoPROLOL SUCCINATE (TOPROL-XL) 100 MG 24 hr tablet Take 1 tablet (100 mg total) by mouth daily. Do not start before December 05, 2023. 12/08/2023 active minocycline (MINOCIN) 100 MG capsule Take 1 capsule (100 mg total) by mouth every 12 (twelve) hours around the clock. 12/08/2023 active empagliflozin (JARDIANCE) 10 MG tablet Take 1 tablet (10 mg total) by mouth daily. Do not start before December 05, 2023. 12/08/2023 active senna (SENOKOT) 8.6 MG Tab tablet Take 2 tablets by mouth nightly. 12/08/2023 active colchicine (COLCRYS) 0.6 mg tablet Take 1 tablet (0.6 mg total) by mouth daily. Do not start before December 05, 2023. 12/08/2023 active torsemide (DEMADEX) 20 MG tablet Take 2 tablets (40 mg total) by mouth daily. 11/18/2023 active colchicine (COLCRYS) 0.6 mg tablet Take 0.5 tablets (0.3 mg total) by mouth daily. 11/18/2023 active metoPROLOL SUCCINATE (TOPROL-XL) 25 MG 24 hr tablet Take 1.5 tablets (37.5 mg total) by mouth every 12 hours. 11/18/2023 active amiODARONE (PACERONE) 200 MG tablet Take 1 tablet (200 mg total) by mouth daily. Do not start before October 29, 2023. 11/17/2023 suspended melatonin 3 MG Tab tablet Take 1 tablet (3 mg total) by mouth nightly. 11/17/2023 suspended enoxaparin (LOVENOX) 100 MG/ML injection Inject 1 mL (100 mg total, 1 mg/kg x 94 kg) under the skin twice daily (every 12 hours). 11/17/2023 suspended traMADol (ULTRAM) 50 MG tablet Take 1 tablet (50 mg total) by mouth 4 times daily (every 6 hours) as needed for moderate pain. 11/17/2023 suspended albuterol (PROVENTIL HFA; VENTOLIN HFA) 108 (90 Base) MCG/ACT inhaler Inhale 2 puffs 4 times daily (every 6 hours) as needed for wheezing. 11/17/2023 suspended atorvastatin (LIPITOR) 40 MG tablet Take 1 tablet (40 mg total) by mouth nightly. 11/17/2023 suspended ipratropium-albutero l (DUONEB) 0.5-2.5 mg/3 mL nebulizer solution Take 3 mL by nebulization 4 times daily (every 6 hours) as needed for wheezing. 11/17/2023 suspended OMEprazole (PriLOSEC) 20 MG capsule Take 1 capsule (20 mg total) by mouth every morning before breakfast. 11/17/2023 suspended insulin glargine (LANtus/SEMGLEE) 100 units/mL injection Inject 0.25 mL (25 Units total) under the skin 2 (two) times a day. 11/17/2023 suspended gabapentin (NEURONTIN) 300 MG capsule Take 1 capsule (300 mg total) by mouth 3 (three) times a day. 11/17/2023 suspended acetaminophen (TYLENOL) 325 MG tablet Take 2 tablets (650 mg total) by mouth 4 times daily (every 6 hours) as needed for moderate pain. 11/17/2023 suspended sertraline (ZOLOFT) 25 MG tablet Take 1 tablet (25 mg total) by mouth daily. 11/17/2023 suspended spironolactone (ALDACTONE) 25 MG tablet Take 0.5 tablets (12.5 mg total) by mouth daily. 11/17/2023 suspended aspirin 81 MG chewable tablet Chew 1 tablet (81 mg total) daily. 11/17/2023 suspended torsemide (DEMADEX) 20 MG tablet Take 1 tablet (20 mg total) by mouth daily. 11/17/2023 suspended metoPROLOL SUCCINATE (TOPROL-XL) 25 MG 24 hr tablet Take 1 tablet (25 mg total) by mouth every 12 hours. 11/17/2023 suspended cefTRIAXone (ROCEPHIN) 2 g IV Push Infuse 2 g into a venous catheter every 24 hours. 11/17/2023 active insulin lispro (HumaLOG/ADMELOG) 100 units/mL injection Inject 0.07 mL (7 Units total) under the skin 3 (three) times a day with meals. 11/17/2023 suspended Problems Problem Status Onset Date Problem Type Date of Resolution Source Acute osteomyelitis of left ankle or foot ([facility]) active EncounterDiagnosisAct [facility] Dyspnea and respiratory abnormalities active EncounterDiagnosisAct [facility] Chronic systolic congestive heart failure ([facility]) active EncounterDiagnosisAct [facility] Ulcer of left foot with fat layer exposed ([facility]) active EncounterDiagnosisAct [facility]
--- NOTE | 2024-06-13 13:03 | A.OFFVIS_ITS ---
Vital Signs 06/13/24 13:04 Height 5 ft 11 in Weight 201 lb BMI 28.0 Intake Visit Reasons: 2 week follow up s/p Left leg angio 05/31/24 Intake Note: 2 week follow up Left LE angio 05/31/24 w/ non-healing ulcer. VNA changes dressing QOD. Pt states he has LE pain from the wounds Belt Maker Required: No Accompanied by: Self / Same As Patient Allergies No Known Allergies [No Known Allergies*] Allergy (Verified 06/13/24 13:06) HPI HPI 2 week follow up s/p Left leg angio 05/31/24: Details: Complex 59-year-old gentleman with multiple medical issues presents for follow- up regarding nonhealing left lower extremity ulcer. It actually undergone endovascular intervention by us on 05/31/2024. He reports he is doing fairly well with that. He now presents for routine follow-up. 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 DECLAN (acute kidney injury) Diabetic infection of left foot CHF (congestive heart failure) RIC (iron deficiency anemia) Nicotine dependence Foot ulcer, left Acute on chronic HFrEF (heart failure with reduced ejection fraction) History of osteomyelitis Diverticulosis Tubular adenoma of colon (~2018) History of COVID-19 Nicotine dependence, cigarettes, uncomplicated Hypertensive retinopathy Microhematuria ICD (implantable cardioverter-defibrillator) in place COPD (chronic obstructive pulmonary disease) KIMANI (obstructive sleep apnea) Sleep apnea CAD (coronary artery disease) Paroxysmal atrial fibrillation (~2017) Surgical History History of amputation of left great toe History of cardiac cath History of ankle surgery History of implantable cardiac defibrillator (ICD) History of colonoscopy History of heart artery stent History of cardiac radiofrequency ablation History of cardioversion History of esophagogastroduodenoscopy History of umbilical hernia History of inguinal hernia Family History Father Atherosclerosis Mother Cerebral aneurysm Maternal Grandmother Unknown family medical history Mother Cerebral hemorrhage Father Coronary artery disease Social History Household Members: None Housing: House Are you a primary day care provider to a significant other at home: No Do you presently have visiting nurse or other home services: Yes Alcohol intake: former Comment: refuses assistance OOB/high falls measures Patient Tobacco Use Status: Current everyday Tobacco user Tobacco use type: Cigarette Cigarette Packs Per Day: 1 Cigarettes Per Day: 2 Years Smoked: (current smoker - onset 14yo, 1ppd x 43yrs, 40pyh) e-Cigarette/Vaping Use: Never Used Second Hand Smoke Exposure: Yes Advance Directives Date on File: 07/09/21 service: No Current occupational status: unemployed and disabled Current occupation: rt handed Cognitive needs: No Hearing needs: No Vision needs: Yes Review of Systems Const All systems reviewed & are unremarkable except as noted in HPI and below Reports no additional complaints ENT Reports Normal hearing present Card Denies chest pain, Denies chest pain at rest, Denies chest pain with activity and Denies pedal edema Resp Denies cough GI Denies abdominal pain Musc Denies abnormal gait, Denies muscle cramps and Denies radiating pain into limb Skin/Breast Denies skin ulcer and Denies wounds Neuro Reports Normal hearing present and Denies abnormal gait Psych Reports no additional complaints Physical Exam Vital Signs: BMI result Body Mass Index 28.0 Const General: cooperative, healthy appearing and comfortable Orientation/consciousness: oriented to person, oriented to place and oriented to time HEENT Head: Yes normal to inspection Neck Neck: Yes normal visual inspection Carotids: no bruits Chest Chest palpation & inspection: normal inspection of the chest Resp Effort & Inspection: normal respiratory effort and able to speak in complete sentences Auscultation: clear to auscultation bilaterally, no crackles, no rales, no rhonchi and no wheezes Cardio Other: Left leg DP signal Rate: regular rate Rhythm: regular rhythm Heart sounds: S1 normal heart sound present and S2 normal heart sound present Bruits: no carotid bruits GI Inspection: Yes normal to inspection Skin Other: Left foot plantar surface well healing Wounds: no wounds Hair: normal Neuro General: oriented to person, oriented to place and oriented to time Cranial nerves: Yes CN's II-XII intact bilaterally and Yes Normal hearing p resent Cognition (Neuro): normal cognition Motor exam (neuro): 5/5 motor strength present throughout Extrem Other: venous exam: No significant superficial varicosities or spider telangiectasias, minimal edema General: No clubbing, No cyanosis and No edema Psych Appearance: grossly normal Mental Status: mental status grossly normal Speech and movement: Normal speech and movement present Assessment & Plan Assessment & Plan (1) PAD (peripheral artery disease): Comment: 05/31/2024 - left peroneal and posterior tibial plasty Code(s): I73.9 - Peripheral vascular disease, unspecified Category: Medical Plan: In short patient is doing well status post endovascular intervention. We will schedule for 3 month arterial surveillance follow-up. [facility] will [facility] nonhealing [facility]. Thank you for allowing us to assist in his care. If there are any questions or concerns pl ease do not hesitate to contact us. Orders: Orders US arterial duplex LE BI 3 Months I73.9 - Peripheral vascular disease, unspecified Coding Level of Care Code Est Pt Level 4 (99718) Complex EM visit Add On G2211 Diagnoses PAD (peripheral artery disease) I73.9
[2024-06-13 13:04] VITALS: BMI 28.0
== END 2024-06-13 13:27 | disposition home or self-care (01) ==
PROVIDERS: PCP Nurse Practitioner Family; Visit Provider Surgery Vascular Surgery
DX: I73.9 Peripheral vascular disease, unspecified (principal)
CPT/HCPCS: 99213; G2211

== ENCOUNTER → 2024-06-13 12:37 | Outpatient (BNVA) | payer OTHER, SELFPAY | PROVIDERS: PCP Nurse Practitioner Family; Visit Provider Surgery Vascular Surgery | DX: I73.9 Peripheral vascular disease, unspecified (principal) | CPT/HCPCS: 99212 ==

== ENCOUNTER 2024-06-15 13:00 | Outpatient (RCR) | payer OTHER, SELFPAY | END 2024-06-23 12:00 | disposition EXP | LOC: HO.WCC 13:00 | PROVIDERS: Visit Provider Surgery | DX: E11.621 Type 2 diabetes mellitus with foot ulcer (principal); L97.525 Non-pressure chronic ulcer of other part of left foot with muscle involvement without evidence of necrosis; E11.40 Type 2 diabetes mellitus with diabetic neuropathy, unspecified; I11.0 Hypertensive heart disease with heart failure; I50.9 Heart failure, unspecified; F17.210 Nicotine dependence, cigarettes, uncomplicated; Z89.412 Acquired absence of left great toe | CPT/HCPCS: 11043 ==